=== PATIENT | male | born 1965 | race African-American/Black ===

== ENCOUNTER 2020-06-13 16:31 | Inpatient (IN) | payer OTHER ==
[~2020-06-13] VITALS: Ht 172.7 cm; Wt 64.9 kg
[2020-06-13 16:40] VITALS: BP 122/74
--- NOTE | 2020-06-13 16:40 | NUR ---
ED Nurse Note: Pt NEILHuber ELKE from [facility] c/o abnormal labs (WBC 15.7, Hgb 7.3, K+ 5.2). Pt is a vent dependent. AAOx1 to name, follows command, non verbal. Pt has GT and FC 18fr. Has a PICC line one lumen on right upper arm patent and intact. 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 Afebrile. Pt placed on desk monitor. ERMD at bedside.
--- NOTE | 2020-06-13 16:45 | NUR ---
ED Nurse Note: Vent setting: Rate 16, TV 500, Peep 8, FiO2 60%
--- NOTE | 2020-06-13 17:00 | NUR ---
ED Nurse Note: Blood and urine specimen collected, sent to lab.
[2020-06-13] MEDS ORDERED: AMLODIPINE BESY10 MG GT (17:59)
[2020-06-13] MEDS ORDERED: FAMOTIDINE20 MG GT (17:59)
[2020-06-13] MEDS ORDERED: GABAPENTIN100 MG ORAL (17:59)
[2020-06-13] MEDS ORDERED: FLUDROCORTISON0.1 MG GT (17:59)
[2020-06-13] MEDS ORDERED: ATORVASTATIN CA40 MG GT (17:59)
[2020-06-13] MEDS ORDERED: CATAPRES0.1 MG GT (18:09)
[2020-06-13] MEDS ORDERED: ZOFRAN ODT8 MG ORAL (18:09)
[2020-06-13] MEDS ORDERED: NORCO 10/3251 EA GT (18:09)
[2020-06-13 18:16] LABS: HEMATOCRIT 23.9 % (42.0-52.0); HEMOGLOBIN 7.4 G/DL (14.2-18.0); MEAN CORPUSCULAR VOLUME 93 FL (80-99); PLATELET COUNT 367 K/UL (150-450); RED BLOOD COUNT 2.58 M/UL (4.70-6.10); RED CELL DISTRIBUTION WIDTH 15.3 % (11.6-14.8); WHITE BLOOD COUNT 17.7 K/UL (4.8-10.8)
[2020-06-13 18:17] LABS: APPEARANCE,URINE CLOUDY; BILIRUBIN, URINE NEGATIVE (NEGATIVE); COLOR,URINE YELLOW; GLUCOSE, URINE (UA) NEGATIVE (NEGATIVE); KETONES,URINE 1+ (NEGATIVE); LEUKOCYTE ESTERASE ,URINE 1+ (NEGATIVE); NITRITE,URINE NEGATIVE (NEGATIVE); PH,URINE 5 (4.5-8.0); PROTEIN,URINE 4+ (NEGATIVE); UROBILINOGEN,URINE NORMAL MG/DL (0.0-1.0)
[2020-06-13 18:19] LABS: CALCIUM 8.6 MG/DL (8.5-10.1); CREATININE 1.7 MG/DL (0.55-1.30)
[2020-06-13 18:20] LABS: INR 1.2 (0.9-1.1)
[2020-06-13 18:23] LABS: ALBUMIN 1.2 G/DL (3.4-5.0); ALBUMIN/GLOBULIN RATIO 0.2 (1.0-2.7); BILIRUBIN,TOTAL 0.2 MG/DL (0.2-1.0)
--- NOTE | 2020-06-13 18:40 | NUR ---
ED Nurse Note: Xray at bedside.
[2020-06-13] MEDS ORDERED: Piperacillin/Tazobactam 3.375 GM in NS 110 ML IVPB ONE (19:00)
--- NOTE | 2020-06-13 19:11 | Diagnostic Imaging Report ---
EXAM: XR Chest, 1 View CLINICAL HISTORY: SOB TECHNIQUE: Frontal view of the chest. COMPARISON: No relevant prior studies available. FINDINGS: Lungs: Heterogeneously dense consolidations are seen centrally and at the left base obscuring the left hemidiaphragm. Cannot entirely exclude the presence of a left pleural effusion. Lizette are obscured. Pleural space: No pneumothorax. Heart: Cardiac silhouette is mostly obscured, particularly on the right side although cardiomegaly may be present. Mediastinum: Unremarkable. Bones/joints: Degenerative changes of the acromioclavicular joint and glenohumeral joints and spine. Tubes, lines and devices: Tracheostomy tube in place. IMPRESSION: Bilateral dense central infiltrates. Consider pulmonary edema, pneumonia, diffuse alveolar damage/ARDS as well as pulmonary hemorrhage.
--- NOTE | 2020-06-13 19:30 | NUR ---
ED Nurse Note: received patient from rhys rn. patient resting in bed with no acute distress. ao4; follows commands; mouths words; able to make needs known. vented; ac 16 tv 500 peep 8 fio2 60%. gtube noted. cabrera noted; draining well to gravity. left BKA noted. skin alterations noted to left lower extremity, sacral; photographed and uploaded. mrsa vre cre swabs collected; sent down to lab. all safety measures met.
[2020-06-13 19:44] VITALS: BP 107/63
--- NOTE | 2020-06-13 19:47 | NUR ---
ED Nurse Note: confirmed with ermd; hold transfusion.
[2020-06-13 21:15] VITALS: BP 118/71
--- NOTE | 2020-06-13 21:18 | NUR ---
ED Nurse Note: report given to vivien joy. patient to be admitted to [facility]du 241 under the care of yulia martins.
--- NOTE | 2020-06-13 21:55 | NUR ---
TRANSFER TO FLOOR: Patient transferred to sdu 241-2 as ordered, per yulia martins. Report given to vivien joy. patient stable for transport. transferred to unit via gurney with nory rn and rt. belongings and admission packet sent with patient .
--- NOTE | 2020-06-13 21:57 | NUR ---
NURSE NOTES: received pt from Samir Stevens RN,. pt is awake and AO x2-3 at this time. pt skin alternation noted sacral open with suture, right BKA with suture, right under foot and right toes DTI, left buttock open wound. WCP taken and uploaded. mechanical vent in place, little bleeding (not active at this time) noted. S8 AC 16 TV 500 P8 Fio2 60% and now pt is at O2 sat 100%. VSS. rfid strategist is on, new gown provided with new blankets. Gtube site intact, clean, and patent. rfid strategist shows SR at this time. pt states no pain at this time. belonging list high $206.00 and 2 chargers, 2 phones (Iphone and LESLIE), and one glasses. pt wants to keep belongings with pt's bedside. cabrera cath draining well with gravity, yellow without blood. right upper arm PICC line noted dressing changed in 06/11/2020 dry intact, intact, and clean. call light within reach. bed at the lowest position, alarmed, and locked. side rails are upx 3. will continue to monitor pt with plan of care.
--- NOTE | 2020-06-13 23:46 | NUR ---
NURSE NOTES: spoke with DavidsonBlanca (pt's daughter) regarding possible blood transfusion in tomorrow AM depends on the lab and Dr. Han. second witness by Ran Valdez RN., per tammi " yes, you guys can do blood transfusion." explained risk and benefits of getting blood transfusion. noted.
[2020-06-14] VITALS: BP 104/83
--- NOTE | 2020-06-14 00:04 | NUR ---
NURSE NOTES: spoke with Olga SANTANA., from [facility] she reported there is no dates on PNA and flu shot dates. and right upper Arm PICC line is inserted 06/11/2020/ noted
[2020-06-14 04:00] VITALS: BP 112/74
[2020-06-14 04:49] LABS: HEMATOCRIT 25.8 % (42.0-52.0); HEMOGLOBIN 7.5 G/DL (14.2-18.0); MEAN CORPUSCULAR VOLUME 98 FL (80-99); PLATELET COUNT 374 K/UL (150-450); RED BLOOD COUNT 2.64 M/UL (4.70-6.10); RED CELL DISTRIBUTION WIDTH 15.2 % (11.6-14.8); WHITE BLOOD COUNT 13.9 K/UL (4.8-10.8)
[2020-06-14 05:44] LABS: ALBUMIN 1.2 G/DL (3.4-5.0); ALBUMIN/GLOBULIN RATIO 0.2 (1.0-2.7); BILIRUBIN,TOTAL 0.3 MG/DL (0.2-1.0); CALCIUM 8.5 MG/DL (8.5-10.1); CREATININE 1.8 MG/DL (0.55-1.30); POTASSIUM 5.8 MMOL/L (3.5-5.1)
--- NOTE | 2020-06-14 06:09 | NUR ---
NURSE NOTES: Left message to Jose Cheney regarding low Hgb 7.5 today and yesterday hbg was 7.4. no active bleeding noted at this time. will continue to monitor pt with plan of care. call light within reach.
--- NOTE | 2020-06-14 06:19 | NUR ---
NURSE NOTES: left voice mail to Dr. Lashonda Amador regarding WBC 13.9 at this time and from ER gave Zozyn 3.375mg once. will wait for call back. call light within reach
--- NOTE | 2020-06-14 06:29 | NUR ---
NURSE NOTES: per Jose Cheney no new order received. noted.
--- NOTE | 2020-06-14 06:32 | NUR ---
NURSE NOTES: cleaned pt BM noted, provided oral care. pt able to help to turn.
--- NOTE | 2020-06-14 07:18 | NUR ---
NURSE HAND-OFF REPORT: Important Events on Shift:[new admit, hgb 7.5 WBC 13.9 MD aware] and needs to follow up with potassium 5.[address] Hair Patient Status: stable Diet: NPO Pending Orders: n/a Pending Results/Labs:[swab] Pending MD notification: Lashonda Amador regarding WBC and abx, pain meds from Dr. Lipscomb Latest Vital Signs: Temperature 97.0 , Pulse 75 , B/P 112 /74 , Respiratory Rate 21 , O2 SAT 98 , Mechanical Ventilator, O2 Flow Rate . Vital Sign Comment: stable EKG Rhythm: Sinus Rhythm Rhythm change?: N Notified?: Y -Dr. Ruel BENDER Response: No New Orders Received Latest Santiago Fall Score: 50 Fall Risk: High Risk Safety Measures: Call light Within Reach, Bed Alarm Zone 3, Side Rails Side Rails x3, Bed position Low and Locked. Fall Precautions: Yellow Socks Yellow Gown Door Sign Patient Fall Education Report given to Criselda SANTANA
--- NOTE | 2020-06-14 07:55 | NUR ---
NURSE NOTES:Handoff received from MAX Dick. Patient received awake and alert and resting in bed, Patient has trach attached to vent with the following settings: Shiley 8, AC16, TV 500, FI02 60% and PEEP 8, tolerating well with no signs of distress. Patient communicates via facial expression and body movements. Patient is on Addendum: 06/14/20 at 0759 by Huang Peterson RN fall and aspiration precautions, bed in the low and locked position with call light within reach, R upper arm PICC line is clean dry and intact, saline locked. Patient is currently NPO. case monitor shows HR of 78 SR, will follow plan of care.
[2020-06-14 08:00] VITALS: BP 130/85
--- NOTE | 2020-06-14 08:32 | NUR ---
NURSE NOTES:Dr Apple called to give TO/RB order for Tylenol for patient for fever/mild pain, explained that he did not want the patient to have anything stronger for pain due to past medical history.
--- NOTE | 2020-06-14 08:51 | Diagnostic Imaging Report ---
EXAM: US Duplex Bilateral Lower Extremities Veins CLINICAL HISTORY: DVT TECHNIQUE: Real-time duplex ultrasound scan of the bilateral lower extremity veins integrating B-mode two-dimensional vascular structure, Doppler spectral analysis, color flow Doppler imaging and compression. COMPARISON: No relevant prior studies available. FINDINGS: Right deep veins: There is acute, occlusive deep vein thrombosis in the distal right superficial femoral vein extending into the profunda femoris vein. The superficial femoral vein, popliteal vein upper calf veins appear patent. Left deep veins: Unremarkable. No DVT in the left common femoral, femoral, proximal deep femoral or popliteal veins. The veins demonstrate normal color flow, are normally compressible, with normal phasic flow and/or augmentation response. Soft tissues: No acute findings. No popliteal cyst. IMPRESSION: 1. Acute DVT in the distal right common femoral vein and profunda femoris vein. 2. No evidence of left lower extremity DVT. <MYCVCSECTION> Communications: 06/14/20 09:12 Call Doctor Regarding Acute DVT, per instruction verified receipt with MAX Redmond on 06/14 09:12 (-08:00)
--- NOTE | 2020-06-14 09:14 | NUR ---
NURSE NOTES: Called and left message to Dr. Apple regarding venous duplex positive result on right common femoral vein and profunda femoris vein. No DVT on left leg. Awaiting for response.
--- NOTE | 2020-06-14 09:21 | NUR ---
NURSE NOTES: Received a call back from Dr. Apple and told RN to notify Dr. Garcia about the DVT.
--- NOTE | 2020-06-14 09:29 | NUR ---
NURSE NOTES: Called and spoke with Dr. Garcia regarding positive DVT result and told RN he will enter his orders.
--- NOTE | 2020-06-14 10:47 | NUR ---
RD ASSESSMENT & RECOMMENDATIONS SEE CARE ACTIVITY FOR COMPLETE ASSESSMENT DAILY ESTIMATED NEEDS: Needs based on Wound, critical care, underweight/ 55.5kg 25-33 kcals/kg 7897-5583 total kcals 1.25-2 g protein/kg 69-111 g total protein 25-30 mL/kg 6086-0779 total fluid mLs NUTRITION DIAGNOSIS: * Swallowing difficulty R/T respiratory status as evidenced by pt is trach/vent dep, PEG dep, NPO at this time. CURRENT TF:NPO ENTERAL NUTRITION RECOMMENDATIONS: Nepro @ 40ml/hr x 24 hrs to provide 960ml, 1728kcal, 78g prot, 698ml free water * Rec to continue HATCHERY ATTENDANT TF of Nepro (K 5.8, 5.0) * Rec goal rate of 40ml/hr x 24 hrs * HOB over 30 degrees/ water flush per MD ADDITIONAL RECOMMENDATIONS: * Per SNF: HT=69" AF=202msn -> rec daily calibrated bedscale wt * Monitor lytes: elev K * Wound healing: f/up w/ WC eval add Vit C 500mg QD, Av BID via PEG
[2020-06-14 11:12] LABS: FERRITIN > 2000 NG/ML (8-388); PHOSPHORUS 4.4 MG/DL (2.5-4.9)
--- NOTE | 2020-06-14 11:38 | Consultation ---
Consult Note Consult Note I am asked to evaluate the patient at the request of Dr. Dimas for renal failure Patient seen in room 241 bed 2. Discussed with MAX Yanes. Patient is trach vent. Examined. Data reviewed. Patient is a 54-year-old male brought in by ambulance for increased difficulty with breathing. Patient was noted to have increased white blood count. Had recent diagnosis of anemia. Patient is trach and vent dependent for COPD. Had been having increased shortness of breath. Patient's history is markedly limited by mental status and poor historian. Allergies: No Known Allergies (Unverified , 06/13/20) COVID-19 Screening Contact w/high risk pt: No Experienced COVID-19 symptoms?: No COVID-19 Testing performed WELT ROUGHER: No COVID-19 Screening: PUI COVID-19 Past Medical History: No History, Except For Hx Cardiac Problems: Yes - anemia embolism, heart failure Hx Hypertension: Yes Hx COPD: Yes - tracheostomy Hx Diabetes: Yes Hx Gastrointestinal Problems: Yes - gastrostomy Hx Neurological Problems: Yes - left BKA Hx Dysphasia: Yes Hx Weakness: Yes Vital Signs in ER Date Time Temp Pulse Resp B/P (MAP) Pulse Ox O2 Delivery O2 Flow Rate FiO2 06/13/20 16:39 98.2 64 20 122/74 (90) 98 Mechanical Ventilator 06/13/20 17:00 60 PHYSICAL EXAMINATION: VITAL SIGNS: Temperature 96.9, pulse 77, blood pressure 130/85. GENERAL APPEARANCE: No acute distress. HEAD AND NECK: Status post tracheostomy. Has poor dentition. HEART: Normal rate, has right arm PICC line that was present before admission. LUNGS: Clear on ventilator. ABDOMEN: Soft. G-tube placement. EXTREMITIES: Has left below-knee amputation and have surgical stitches there. SKIN: Pressure ulcers. NEUROLOGIC: He is awake, responsive. LABORATORY AND DIAGNOSTIC DATA: Sodium 138, potassium 5.8, chloride 104, bicarb 13, BUN 38, creatinine 1.8, glucose 134. Blood gas showed pH of 7.222, pCO2 of 82.1, pO2 of 286, O2 saturation is 99%. WBC today is 13.9, hemoglobin 7.5, hematocrit 25.8, platelets 374. Venous duplex showed acute DVT on right common femoral vein. UA showed WBC of 0 to 2, rbc's 10 to 15. COVID test negative. Urine culture negative. Chest x-ray showed bilateral dense central infiltrate, pulmonary edema, or pneumonia. . Assessment/Plan Acute on chronic renal failure Anemia Respiratory failure acute on chronic Respiratory acidosis and hypoxia Hyperkalemia Pulmonary evaluation Sparrow catheter Hold IV fluid IV fluid, until 2D echo results available Kayexalate for high potassium IV Protonix 2D echocardiogram Anemia work-up More labs ordered Leonidas Honeycutt MD Jun 14, 2020 11:38
[2020-06-14] MEDS ORDERED: Sodium Polystyrene Sulfonate 15gm Powder GT SCH (11:45)
[2020-06-14 11:59] VITALS: BP 110/76
[2020-06-14 12:00] LABS: % IRON SATURATION 15 % (15-50); IRON 15 ug/dL (50-175); TOTAL IRON BINDING CAPACITY 101 ug/dL (250-450)
[2020-06-14] MEDS: Pantoprazole Inj IVP SCH ×2 (12:38→20:09)
--- NOTE | 2020-06-14 13:09 | NUR ---
NURSE NOTES:2D echo resulted. MD Mcguire aware of the results.
[2020-06-14] MEDS: Meropenem 500 MG in NS 55 ML IVPB SCH ×2 (14:00→21:44)
--- NOTE | 2020-06-14 14:09 | Cardiac Electrophysiology PN ---
Subjective Subjective [id number] Objective Last 24 Hour Vital Signs Date Time Temp Pulse Resp B/P (MAP) Pulse Ox O2 Delivery O2 Flow Rate FiO2 06/14/20 12:00 79 06/14/20 12:00 60 06/14/20 12:00 Mechanical Ventilator Mechanical Ventilator 06/14/20 11:59 96.8 78 17 110/76 (87) 98 06/14/20 09:00 Mechanical Ventilator Mechanical Ventilator 06/14/20 08:00 96.9 77 17 130/85 (100) 98 06/14/20 08:00 60 06/14/20 07:52 75 06/14/20 04:55 75 21 60 06/14/20 04:00 97.0 76 20 112/74 (87) 98 06/14/20 04:00 Mechanical Ventilator Mechanical Ventilator 06/14/20 04:00 60 06/14/20 03:32 69 06/14/20 02:47 71 25 60 06/14/20 01:39 68 23 60 06/14/20 00:22 68 17 100 Mechanical Ventilator 60 06/14/20 00:00 Mechanical Ventilator 06/14/20 00:00 97.4 65 24 104/83 (90) 99 06/14/20 00:00 60 06/13/20 23:46 65 06/13/20 23:41 64 20 60 06/13/20 21:57 Mechanical Ventilator 06/13/20 21:56 65 26 60 06/13/20 21:55 98.2 68 16 118/71 98 Mechanical Ventilator 60 06/13/20 21:15 98.2 68 16 118/71 98 Mechanical Ventilator 60 06/13/20 19:44 98.2 70 22 107/63 98 Mechanical Ventilator 60 06/13/20 19:38 69 20 60 06/13/20 17:00 70 19 60 06/13/20 16:40 98.2 64 20 122/74 98 Mechanical Ventilator 06/13/20 16:39 98.2 64 20 122/74 (90) 98 Mechanical Ventilator Intake and Output 06/13/20 06/14/20 19:00 07:00 Output Total 240 ml Balance -240 ml Output Urine Total 240 ml # Bowel Movements 4 Laboratory Tests Test 06/13/20 16:56 06/13/20 17:00 06/13/20 23:31 06/14/20 02:45 Arterial Blood pH 7.200 (7.350-7.450) Arterial Blood Partial Pressure CO2 87.4 mmHg (35.0-45.0) *H Arterial Blood Partial Pressure O2 90.5 mmHg (75.0-100.0) Arterial Blood HCO3 33.4 mmol/L (22.0-26.0) H Arterial Blood Oxygen Saturation 95.7 % (95-100) Arterial Blood Base Excess 4.1 (-2-2) H Joe Test Positive White Blood Count 17.7 K/UL (4.8-10.8) H 13.9 K/UL (4.8-10.8) H Red Blood Count 2.58 M/UL (4.70-6.10) L 2.64 M/UL (4.70-6.10) L Hemoglobin 7.4 G/DL (14.2-18.0) L 7.5 G/DL (14.2-18.0) L Hematocrit 23.9 % (42.0-52.0) L 25.8 % (42.0-52.0) L Mean Corpuscular Volume 93 FL (80-99) 98 FL (80-99) Mean Corpuscular Hemoglobin 28.8 PG (27.0-31.0) 28.5 PG (27.0-31.0) Mean Corpuscular Hemoglobin Concent 31.1 G/DL (32.0-36.0) L 29.2 G/DL (32.0-36.0) L Red Cell Distribution Width 15.3 % (11.6-14.8) H 15.2 % (11.6-14.8) H Platelet Count 367 K/UL (150-450) 374 K/UL (150-450) Mean Platelet Volume 7.1 FL (6.5-10.1) 7.8 FL (6.5-10.1) Neutrophils (%) (Auto) % (45.0-75.0) % (45.0-75.0) Lymphocytes (%) (Auto) % (20.0-45.0) % (20.0-45.0) Monocytes (%) (Auto) % (1.0-10.0) % (1.0-10.0) Eosinophils (%) (Auto) % (0.0-3.0) % (0.0-3.0) Basophils (%) (Auto) % (0.0-2.0) % (0.0-2.0) Differential Total Cells Counted 100 100 Neutrophils % (Manual) 82 % (45-75) H 89 % (45-75) H Lymphocytes % (Manual) 8 % (20-45) L 7 % (20-45) L Monocytes % (Manual) 7 % (1-10) 4 % (1-10) Eosinophils % (Manual) 3 % (0-3) 0 % (0-3) Basophils % (Manual) 0 % (0-2) 0 % (0-2) Band Neutrophils 0 % (0-8) 0 % (0-8) Platelet Estimate Adequate Adequate Platelet Morphology Normal Normal Hypochromasia 2+ 1+ Anisocytosis 1+ 1+ Prothrombin Time 12.7 SEC (9.30-11.50) H Prothromb Time International Ratio 1.2 (0.9-1.1) H Activated Partial Thromboplast Time 31 SEC (23-33) Urine Color Yellow Urine Appearance Cloudy Urine pH 5 (4.5-8.0) Urine Specific [place] 1.015 (1.005-1.035) Urine Protein 4+ (NEGATIVE) H Urine Glucose (UA) Negative (NEGATIVE) Urine Ketones 1+ (NEGATIVE) H Urine Blood 5+ (NEGATIVE) H Urine Nitrite Negative (NEGATIVE) Urine Bilirubin Negative (NEGATIVE) Urine Urobilinogen Normal MG/DL (0.0-1.0) Urine Leukocyte Esterase 1+ (NEGATIVE) H Urine RBC 10-15 /HPF (0 - 0) H Urine WBC 0-2 /HPF (0 - 0) Urine Squamous Epithelial Cells None /LPF (NONE/OCC) Urine Bacteria Few /HPF (NONE) Urine Yeast Few /HPF (NONE) H Sodium Level 138 MMOL/L (136-145) 138 MMOL/L (136-145) Potassium Level 5.0 MMOL/L (3.5-5.1) 5.8 MMOL/L (3.5-5.1) H Chloride Level 104 MMOL/L (98-107) 104 MMOL/L (98-107) Carbon Dioxide Level 31 MMOL/L (21-32) 30 MMOL/L (21-32) Anion Gap 3 mmol/L (5-15) L 4 mmol/L (5-15) L Blood Urea Nitrogen 33 mg/dL (7-18) H 38 mg/dL (7-18) H Creatinine 1.7 MG/DL (0.55-1.30) H 1.8 MG/DL (0.55-1.30) H Estimat Glomerular Filtration Rate 51.4 mL/min (>60) 48.1 mL/min (>60) Glucose Level 89 MG/DL (74-106) 134 MG/DL (74-106) H Calcium Level 8.6 MG/DL (8.5-10.1) 8.5 MG/DL (8.5-10.1) Total Bilirubin 0.2 MG/DL (0.2-1.0) 0.3 MG/DL (0.2-1.0) Aspartate Amino Transf (AST/SGOT) 110 U/L (15-37) H 543 U/L (15-37) H Alanine Aminotransferase (ALT/SGPT) 47 U/L (12-78) 215 U/L (12-78) H Alkaline Phosphatase 183 U/L (46-116) H 247 U/L (46-116) H Total Protein 7.8 G/DL (6.4-8.2) 7.8 G/DL (6.4-8.2) Albumin 1.2 G/DL (3.4-5.0) L 1.2 G/DL (3.4-5.0) L Globulin 6.6 g/dL 6.6 g/dL Albumin/Globulin Ratio 0.2 (1.0-2.7) L 0.2 (1.0-2.7) L POC Whole Blood Glucose Pending Test 06/14/20 05:32 06/14/20 10:15 06/14/20 10:58 06/14/20 12:44 POC Whole Blood Glucose 135 MG/DL (74-106) H 115 MG/DL (74-106) H Phosphorus Level 4.4 MG/DL (2.5-4.9) Magnesium Level 2.2 MG/DL (1.8-2.4) Iron Level 15 ug/dL (50-175) L Total Iron Binding Capacity 101 ug/dL (250-450) L Percent Iron Saturation 15 % (15-50) Unsaturated Iron Binding 86 ug/dL (112-346) L Ferritin > 2000 NG/ML (8-388) H Troponin I 0.000 ng/mL (0.000-0.056) Vitamin B12 Level > 2000 PG/ML (193-986) H Folate 16.4 NG/ML (8.6-58.9) Arterial Blood pH 7.222 (7.350-7.450) Arterial Blood Partial Pressure CO2 82.1 mmHg (35.0-45.0) *H Arterial Blood Partial Pressure O2 286.9 mmHg (75.0-100.0) H Arterial Blood HCO3 33.0 mmol/L (22.0-26.0) H Arterial Blood Oxygen Saturation 99.0 % (95-100) Arterial Blood Base Excess 4.3 (-2-2) H Joe Test Positive Microbiology Date/Time Source Procedure Growth Status 06/13/20 19:01 Nasopharynx SARS-CoV-2 RdRp Gene Assay - Final Complete 06/13/20 17:00 Urine,Clean Catch Urine Culture - Preliminary NO GROWTH Resulted Lance Mcguire MD Jun 14, 2020 14:09
--- NOTE | 2020-06-14 14:38 | NUR ---
NURSE NOTES: IV tubing changed as Vanco is incompatible with Albumin.
[2020-06-14] MEDS: Vancomycin 1gm/D5W 275ml IVPB SCH ×2 (14:40)
--- NOTE | 2020-06-14 15:15 | Consultation ---
DATE OF CONSULTATION: 06/14/2020 PULMONARY CONSULTATION CONSULTING PHYSICIAN: Sylvester Garcia M.D. HISTORY OF PRESENT ILLNESS: This is a 54-year-old chronic tracheostomy patient who was sent in from [facility] with a complaint of high white count and anemia. The patient is chronic vent dependent. He has a chronic G-tube and a chronic Sparrow. He also has a PICC line in the right upper arm. The patient is known to have a BKA on left lower extremity. Currently, his vent settings show AC tidal volume 500, FiO2 100%, PEEP of 8, rate of 16. The patient is nonverbal, unable to answer any questions. On arrival, he was on FiO2 60%. The patient is noted to have skin breakdown over left lower extremity as well. The patient has been ordered a blood transfusion given anemia. White count is now at 13.9. PAST MEDICAL HISTORY: Left BKA, chronic respiratory failure, encephalopathy, anemia. MEDICATIONS: Zosyn currently only. REVIEW OF SYSTEMS: Unobtainable. PHYSICAL EXAMINATION: GENERAL: A 54-year-old male. VITAL SIGNS: Blood pressure is 130/80, heart rate 74, respiratory rate 18, O2 sat 98% on 100% oxygen. HEENT: Unremarkable. Tracheostomy site is clean. CHEST: Clear breath sounds. ABDOMEN: Soft. EXTREMITIES: There is no edema. Skin breakdown noted over the left lower extremity. He has BKA. LABORATORY DATA: Lab testing shows white count 13.9, hemoglobin 7.5. Chemistries show creatinine 1.8, glucose 135. He has elevation of AST and ALT and alk phos as well. ABG shows pH of 7.20, pCO2 of 87, pO2 of 90. Coags are unremarkable. Urinalysis shows a few pus cells. IMAGING STUDIES: The patient underwent an x-ray of his chest, which showed bilateral pulmonary infiltrates. These are severe and bilateral. IMPRESSION: 1. Chronic respiratory failure. 2. Hypoxemia. 3. Respiratory acidosis. 4. Anemia. 5. Leukocytosis. DISCUSSION: The patient's x-ray is markedly abnormal with bilateral infiltrates. This could represent pulmonary edema. We will obtain 2D echo. We will diurese. Continue assist-control mechanical ventilation, broad-spectrum antibiotics. Transfusion as needed. We will follow carefully. Sylvester Garcia M.D. DR: CORNELIUS JOB#: [id number] CC:
--- NOTE | 2020-06-14 15:59 | Consultation ---
DATE OF CONSULTATION: 06/14/2020 INFECTIOUS DISEASES CONSULTATION CONSULTING PHYSICIAN: Paul Amador MD. PRIMARY ATTENDING PHYSICIAN: Neida Apple MD. REASON FOR CONSULTATION: Pneumonia. HISTORY OF PRESENT ILLNESS: This is a 54-year-old male admitted last night from nursing facility because of abnormal labs. The patient had leukocytosis of 15,000 in the [facility] it was 17.7, anemia with hemoglobin of 7.4, hyperkalemia with potassium level of 5.8. The patient had history of recent surgery, left lower extremity amputation in [facility] and was on antibiotic vancomycin and meropenem after discharge. PAST MEDICAL HISTORY: Diabetes mellitus type 2, hypertension, hyperlipidemia, major depression, ventilator-dependent respiratory failure, dysphagia status post G-tube placement, recent history of left BKA. ALLERGIES: No known drug allergies. MEDICATIONS: Got a dose of Zosyn in the ER, getting Lasix, Protonix, Kayexalate, Tylenol. 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 No other history obtainable. REVIEW OF SYSTEMS: Have some coughing. PHYSICAL EXAMINATION: VITAL SIGNS: Temperature 96.9, pulse 77, blood pressure 130/85. GENERAL APPEARANCE: No acute distress. HEAD AND NECK: Status post tracheostomy. Has poor dentition. HEART: Normal rate, has right arm PICC line that was present before admission. LUNGS: Clear on ventilator. ABDOMEN: Soft. G-tube placement. EXTREMITIES: Has left below-knee amputation and have surgical stitches there. SKIN: Pressure ulcers. NEUROLOGIC: He is awake, responsive. LABORATORY AND DIAGNOSTIC DATA: Sodium 138, potassium 5.8, chloride 104, bicarb 13, BUN 38, creatinine 1.8, glucose 134. Blood gas showed pH of 7.222, pCO2 of 82.1, pO2 of 286, O2 saturation is 99%. WBC today is 13.9, hemoglobin 7.5, hematocrit 25.8, platelets 374. Venous duplex showed acute DVT on right common femoral vein. UA showed WBC of 0 to 2, rbc's 10 to 15. COVID test negative. Urine culture negative. Chest x-ray showed bilateral dense central infiltrate, pulmonary edema, or pneumonia. IMPRESSION: Pneumonia in a patient who is ventilator-dependent respiratory failure, has diabetes mellitus type 2, hypertension, had recent history of left BKA, was on antibiotics before admission, has hypertension, anemia, major depression, pressure ulcer, elevated transaminase, hyperkalemia. RECOMMENDATION: We will start the patient on meropenem and vancomycin. We will ask for sputum culture. We will follow up the cultures. We will try to get more information about recent hospitalization from [facility]. At the end of my exam, I thank Dr. Apple, for involving me in the care of this patient. Paul Amador M.D. DR: Carolyn JOB#: [id number] CC:
[2020-06-14 16:00] VITALS: BP 127/80
--- NOTE | 2020-06-14 16:15 | Consultation ---
DATE OF CONSULTATION: 06/14/2020 CARDIOLOGY CONSULTATION CONSULTING PHYSICIAN: Lance Mcguire MD REFERRING PHYSICIAN: Neida Apple MD REASON FOR CONSULTATION: Shortness of breath, tachycardia, and congestive heart failure. HISTORY OF PRESENT ILLNESS: The patient is a 54-year-old gentleman with history of ventilator-dependent respiratory failure, status post tracheostomy and dysphagia, status post PEG placement, his prior CVA, and was nonverbal, who was brought in from the [facility] with white count of 15.7 and hemoglobin 7.3. The. The patient also noted to be quite short of breath. The chest x-ray showed bilateral volume overload and infiltrate. His blood pressure was 122/74. The patient was admitted. A Cardiology consultation was requested for further evaluation and management. REVIEW OF SYSTEMS: Cannot be obtained. PAST MEDICAL HISTORY: As mentioned above. FAMILY HISTORY: Noncontributory. SOCIAL HISTORY: He lives in a shelter. Does not smoke or drink alcohol. PHYSICAL EXAMINATION: VITAL SIGNS: Show blood pressure of 122/70, pulse is 70, respirations 18, temperature is 96.8. HEAD AND NECK: Show status post tracheostomy. LUNGS: Coarse rhonchi and basilar rales. CARDIOVASCULAR: Shows irregular S1 and S2 with no gallop. ABDOMEN: Soft. Status post G-tube. EXTREMITIES: No pitting edema. LABORATORY DATA: Labs show white count was 17.7 that decreased to 13.9, hemoglobin of 7.5, hematocrit 25.8, and platelet count of 374,000. Sodium is 138, potassium is 5.8, BUN of 38, creatinine 1.8, and glucose of 134. His first troponin is negative. ASSESSMENT AND PLAN: 1. Respiratory failure in this patient with vent-dependent respiratory failure. The patient's chest x-ray is suspicious for congestive heart failure or extensive bilateral pneumonia or ARDS. We will get an echocardiogram for further evaluation. His creatinine is 1.8. We will check a brain-natriuretic peptide and keep the patient on Lasix 40 mg IV b.i.d. 2. Tachycardia, likely due to respiratory failure. 3. Ventilator-dependent respiratory failure, status post tracheostomy. 4. Dysphagia, status post PEG placement. 5. Renal failure. Further evaluation by Dr. Honeycutt. 6. Hyperkalemia . Thank you very much for allowing me to participate in the care of this patient. Please do not hesitate to contact me for any questions regarding my evaluation. Lance Mcguire M.D. DR: Yonathan JOB#: [id number] CC:
--- NOTE | 2020-06-14 18:53 | NUR ---
NURSE NOTES: Received report from Tari Yanes RN. Pt is lying in bed in semi-caba's position. Attached to trach to vent with settings as ordered. Breathing even and unlabored but occasionally deep breathing. O2 sat 98-100%. Pt is cold to warm to touch. Alert 2-3. Able to follow simple commands. With active range of motion in extrimities. Left knee BKA. Denies any pain. No any distress noted at this time. IV site at Right upper arm PICC line patent and flushing. Attached to cabrera with yellow output urine. Continue to plan of care. Bed in lowest position. Call light within reach.
--- NOTE | 2020-06-14 19:23 | NUR ---
NURSE HAND-OFF REPORT: MAX loya. Important Events on Shift:Patient has DVT Right femoral, PUI for Covid, Kayaxelate given for K of 5.8 Patient Status: Stable Diet: NPO except meds Pending Orders: Sputum needs to be collected. Pending Results/Labs:Covid, Blood culture, Pending MD notification:N/A Latest Vital Signs: Temperature 97.2 , Pulse 78 , B/P 127 /80 , Respiratory Rate 19 , O2 SAT 98 , Mechanical Ventilator, O2 Flow Rate . Vital Sign Comment: EKG Rhythm: Sinus Rhythm Rhythm change?: N MD Notified?: MD Response: Latest Santiago Fall Score: 35 Fall Risk: Medium Risk Safety Measures: Call light Within Reach, Bed Alarm Zone 2, Side Rails Side Rails x2, Bed position Low and Locked. Fall Precautions: Patient Fall Education Report given to MAX Loya.
--- NOTE | 2020-06-14 19:27 | NUR ---
NURSE HAND-OFF REPORT: MAX Comer. Important Events on Shift: patient still bleeding from trach. Patient Status: stable Diet: NPO Pending Orders: Blood Cultures Pending Results/Labs:n/a Pending MD notification: Latest Vital Signs: Temperature 97.2 , Pulse 78 , B/P 127 /80 , Respiratory Rate 19 , O2 SAT 98 , Mechanical Ventilator, O2 Flow Rate . Vital Sign Comment: EKG Rhythm: Sinus Rhythm Rhythm change?: N MD Notified?: MD Response: Latest Santiago Fall Score: 35 Fall Risk: Medium Risk Safety Measures: Call light Within Reach, Bed Alarm Zone 2, Side Rails Side Rails x2, Bed position Low and Locked. Fall Precautions: Patient Fall Education Report given to MAX Comer.
--- NOTE | 2020-06-14 20:00 | NUR ---
NURSE NOTES: Pt is changed, sponge bath given. CHG bath given. Pt refused oral care. Noted Small bowel movement brown in color. Not in respiratory distress. No pain noted. Changed dressing on lower back with surgical incision.
[2020-06-14] MEDS: Dyna-Hex 2% Top Sol 2oz TOPIC SCH (20:09)
[2020-06-14 20:40] VITALS: BP 120/76
[2020-06-14] MEDS ORDERED: NS 275ml ONE (20:54)
[2020-06-14] MEDS ORDERED: Tubing IV Secondary IV ONE (20:54)
--- NOTE | 2020-06-14 21:15 | History and Physical Report ---
DATE OF ADMISSION: 06/13/2020 HISTORY OF PRESENT ILLNESS: The patient is nonverbal. The patient comes in with severe anemia, diffuse pulmonary edema and infiltrate, vent dependent, trach and PEG, and also severe anemia, leukocytosis, sepsis, azotemia. Again, the patient is nonverbal, cannot get any history. The patient is admitted for those reasons and pulmonary edema. PAST MEDICAL HISTORY: Significant for chronic respiratory insufficiency, hyperlipidemia, hypertension, GERD, history of anemia, congestive heart failure, chronic renal insufficiency. PAST SURGICAL HISTORY: Trach and PEG. MEDICATIONS: Pepcid, clonidine, Lipitor, gabapentin. FAMILY HISTORY: Unable to obtain. SOCIAL HISTORY: Unable to obtain. REVIEW OF SYSTEMS: Unable to obtain. The patient is nonverbal. PHYSICAL EXAMINATION: VITAL SIGNS: Temperature is 97.2, pulse is 70, and blood pressure 127/80. HEENT: PERRLA. NECK: Supple. Trach site is intact. CHEST: Bibasilar rhonchi. CARDIOVASCULAR: Regular rate and rhythm. No murmurs, clicks sounds. GASTROINTESTINAL: Soft and nontender. G-tube site is intact. Positive bowel sounds. EXTREMITY: Positive dorsalis pedis pulses. NEUROLOGICAL: Generalized weakness. LABORATORY DATA: WBC of 17.2, hemoglobin 7.4, and platelets of 367,000. ASSESSMENT AND PLAN: Respiratory failure, respiratory acidosis, trach and PEG, vent dependent, chronic renal insufficiency. The patient also has diffuse pulmonary edema on the chest x-ray. The patient also has severe anemia, rule out sepsis, rule out pneumonia, azotemia, leukocytosis, anemia. I have consulted Dr. Garcia, Dr. Tan, Dr. Honeycutt, Dr. Mcguire as well as Dr. Paul Amador to rule out pneumonia and sepsis. Antibiotics per Dr. Paul Amador and fluid management per Dr. Mcguire and Dr. Honeycutt. Dr. Hernandez will also help with the respiratory insufficiency, trach orders, vent dependence, and also fluid management. We will also try to check for DVT given the legs edema and calf pain. Neida Apple M.D. DR: LUIS JOB#: [id number] CC:
[2020-06-15] VITALS: BP 108/68
--- NOTE | 2020-06-15 02:00 | NUR ---
NURSE NOTES: Seen pt in bed in semi- caba's position. No apparent distress noted. Attached to vent. O2 sat-100%. No fever noted. no coughing noted. Continue to plan of care. Bed in lowest position, call light within reach.
[2020-06-15 04:00] VITALS: BP 111/62
--- NOTE | 2020-06-15 04:00 | NUR ---
NURSE NOTES: Seen pt in bed in semi- caba's position. No apparent distress noted. Attached to vent. O2 sat-98%. No fever noted. no coughing noted. Continue to plan of care. Bed in lowest position, call light within reach.
[2020-06-15 05:12] LABS: HEMATOCRIT 25.4 % (42.0-52.0); HEMOGLOBIN 7.4 G/DL (14.2-18.0); MEAN CORPUSCULAR VOLUME 99 FL (80-99); PLATELET COUNT 386 K/UL (150-450); RED BLOOD COUNT 2.57 M/UL (4.70-6.10); RED CELL DISTRIBUTION WIDTH 14.7 % (11.6-14.8)
[2020-06-15 05:20] LABS: ANION GAP 1 mmol/L (5-15); BLOOD UREA NITROGEN 50 mg/dL (7-18); CALCIUM 8.1 MG/DL (8.5-10.1); CARBON DIOXIDE 33 MMOL/L (21-32); CHLORIDE 102 MMOL/L (98-107); CREATININE 2.4 MG/DL (0.55-1.30); POTASSIUM 5.6 MMOL/L (3.5-5.1); SODIUM 136 MMOL/L (136-145)
[2020-06-15 05:31] LABS: ALANINE AMINOTRANSFERASE 157 U/L (12-78); ALBUMIN 1.5 G/DL (3.4-5.0); ALBUMIN/GLOBULIN RATIO 0.2 (1.0-2.7); ALKALINE PHOSPHATASE 190 U/L (46-116); ASPARTATE AMINO TRANSFERASE 163 U/L (15-37); BILIRUBIN,TOTAL 0.3 MG/DL (0.2-1.0); CHOLESTEROL 79 MG/DL (< 200); HDL CHOLESTEROL 30 MG/DL (40-60); TRIGLYCERIDES 49 MG/DL (30-150)
[2020-06-15 05:40] LABS: CREATINE KINASE 43 U/L (26-308); GAMMA GLUTAMYL TRANSPEPTIDASE 79 U/L (5-85); LACTATE DEHYDROGENASE 235 U/L (81-234)
[2020-06-15] MEDS: Meropenem 500 MG in NS 55 ML IVPB SCH ×3 (05:53→21:41)
--- NOTE | 2020-06-15 06:53 | Consultation ---
History of Present Illness General Chief Complaint: Abnormal Labs Present Illness Allergies: Coded Allergies: No Known Allergies (Unverified , 06/13/20) Medication History Scheduled Amlodipine Besylate* (Amlodipine Besylate*), 10 MG ORAL DAILY, (Reported) Atorvastatin Calcium* (Atorvastatin Calcium*), 40 MG ORAL BEDTIME, (Reported) Clonidine Hcl* (Catapres*), 0.1 MG ORAL EVERY 6 HOURS, (Reported) Famotidine* (Pepcid 20mg tablet*), 20 MG ORAL DAILY, (Reported) Gabapentin* (Gabapentin*), 300 MG ORAL THREE TIMES A DAY, (Reported) Scheduled PRN Hydrocodone/Acetaminophen (Hydrocodon-Acetaminophn 10-325), 1 TAB ORAL Q4H PRN for For Pain, (Reported) Ondansetron Odt* (Zofran Odt*), 4 MG ORAL Q6H PRN for Nausea & Vomiting, (Reported) Miscellaneous Medications Fludrocortisone Acetate (Fludrocortisone Acetate), 0.1 MG PO, (Reported) Patient History Healthcare decision maker Resuscitation status Advanced Directive on File Physical Exam Last 24 Hour Vital Signs Date Time Temp Pulse Resp B/P (MAP) Pulse Ox O2 Delivery O2 Flow Rate FiO2 06/15/20 04:37 60 06/15/20 04:00 96.7 67 21 111/62 (78) 96 06/15/20 04:00 Mechanical Ventilator Mechanical Ventilator 06/15/20 04:00 69 06/15/20 02:41 70 21 100 06/15/20 00:00 96.5 72 20 108/68 (81) 97 06/15/20 00:00 Mechanical Ventilator Mechanical Ventilator 06/15/20 00:00 74 06/14/20 22:42 73 19 100 06/14/20 20:40 97.6 77 21 120/76 (91) 98 06/14/20 20:00 Mechanical Ventilator Mechanical Ventilator 06/14/20 20:00 60 06/14/20 19:25 79 06/14/20 18:39 78 19 100 06/14/20 17:15 78 20 100 06/14/20 16:00 Mechanical Ventilator Mechanical Ventilator 06/14/20 16:00 60 06/14/20 16:00 78 06/14/20 16:00 97.2 82 19 127/80 (96) 98 06/14/20 15:23 80 21 100 06/14/20 13:09 79 19 100 06/14/20 12:00 79 06/14/20 12:00 60 06/14/20 12:00 Mechanical Ventilator Mechanical Ventilator 06/14/20 11:59 96.8 78 17 110/76 (87) 98 06/14/20 11:30 78 19 100 06/14/20 09:00 Mechanical Ventilator Mechanical Ventilator 06/14/20 08:48 78 18 100 06/14/20 08:00 96.9 77 17 130/85 (100) 98 06/14/20 08:00 60 06/14/20 07:52 75 06/14/20 07:28 81 17 60 Intake and Output 06/14/20 06/15/20 19:00 07:00 Intake Total 180 ml 120 ml Output Total 451 ml 360 ml Balance -271 ml -240 ml Intake Oral 0 ml Free Water 180 ml 120 ml Output Urine Total 450 ml 360 ml Stool Total 1 ml # Bowel Movements 2 5 Laboratory Tests Test 06/14/20 10:15 06/14/20 10:58 06/14/20 12:44 06/14/20 18:48 Phosphorus Level 4.4 MG/DL (2.5-4.9) Magnesium Level 2.2 MG/DL (1.8-2.4) Iron Level 15 ug/dL (50-175) L Total Iron Binding Capacity 101 ug/dL (250-450) L Percent Iron Saturation 15 % (15-50) Unsaturated Iron Binding 86 ug/dL (112-346) L Ferritin > 2000 NG/ML (8-388) H Troponin I 0.000 ng/mL (0.000-0.056) Vitamin B12 Level > 2000 PG/ML (193-986) H Folate 16.4 NG/ML (8.6-58.9) Arterial Blood pH 7.222 (7.350-7.450) Arterial Blood Partial Pressure CO2 82.1 mmHg (35.0-45.0) *H Arterial Blood Partial Pressure O2 286.9 mmHg (75.0-100.0) H Arterial Blood HCO3 33.0 mmol/L (22.0-26.0) H Arterial Blood Oxygen Saturation 99.0 % (95-100) Arterial Blood Base Excess 4.3 (-2-2) H Jeo Test Positive POC Whole Blood Glucose 115 MG/DL (74-106) H 99 MG/DL (74-106) Test 06/15/20 00:25 06/15/20 04:00 06/15/20 05:56 POC Whole Blood Glucose 97 MG/DL (74-106) 118 MG/DL (74-106) H White Blood Count 15.0 K/UL (4.8-10.8) H Red Blood Count 2.57 M/UL (4.70-6.10) L Hemoglobin 7.4 G/DL (14.2-18.0) L Hematocrit 25.4 % (42.0-52.0) L Mean Corpuscular Volume 99 FL (80-99) Mean Corpuscular Hemoglobin 28.6 PG (27.0-31.0) Mean Corpuscular Hemoglobin Concent 29.0 G/DL (32.0-36.0) L Red Cell Distribution Width 14.7 % (11.6-14.8) Platelet Count 386 K/UL (150-450) Mean Platelet Volume 7.7 FL (6.5-10.1) Neutrophils (%) (Auto) % (45.0-75.0) Lymphocytes (%) (Auto) % (20.0-45.0) Monocytes (%) (Auto) % (1.0-10.0) Eosinophils (%) (Auto) % (0.0-3.0) Basophils (%) (Auto) % (0.0-2.0) Neutrophils % (Manual) Pending Lymphocytes % (Manual) Pending Platelet Estimate Pending Platelet Morphology Pending Sodium Level 136 MMOL/L (136-145) Potassium Level 5.6 MMOL/L (3.5-5.1) H Chloride Level 102 MMOL/L (98-107) Carbon Dioxide Level 33 MMOL/L (21-32) H Anion Gap 1 mmol/L (5-15) L Blood Urea Nitrogen 50 mg/dL (7-18) H Creatinine 2.4 MG/DL (0.55-1.30) H Estimat Glomerular Filtration Rate 34.5 mL/min (>60) Glucose Level 111 MG/DL (74-106) H Lactic Acid Level 0.70 mmol/L (0.4-2.0) Uric Acid 5.3 MG/DL (2.6-7.2) Calcium Level 8.1 MG/DL (8.5-10.1) L Phosphorus Level 6.0 MG/DL (2.5-4.9) H Magnesium Level 2.2 MG/DL (1.8-2.4) Total Bilirubin 0.3 MG/DL (0.2-1.0) Gamma Glutamyl Transpeptidase 79 U/L (5-85) Aspartate Amino Transf (AST/SGOT) 163 U/L (15-37) H Alanine Aminotransferase (ALT/SGPT) 157 U/L (12-78) H Alkaline Phosphatase 190 U/L (46-116) H Lactate Dehydrogenase 235 U/L (81-234) H Total Creatine Kinase 43 U/L (26-308) Troponin I 0.002 ng/mL (0.000-0.056) C-Reactive Protein, Quantitative 15.5 mg/dL (0.00-0.90) H Pro-B-Type Natriuretic Peptide 93290 pg/mL (0-125) H Total Protein 7.9 G/DL (6.4-8.2) Albumin 1.5 G/DL (3.4-5.0) L Globulin 6.4 g/dL Albumin/Globulin Ratio 0.2 (1.0-2.7) L Triglycerides Level 49 MG/DL (30-150) Cholesterol Level 79 MG/DL (< 200) LDL Cholesterol 35 mg/dL (<100) HDL Cholesterol 30 MG/DL (40-60) L Cholesterol/HDL Ratio 2.6 (3.3-4.4) L Height (Feet): 5 Height (Inches): 8.00 Weight (Pounds): 143 Medications Current Medications Medications (Trade) Dose Ordered Sig/Maryjane Route PRN Reason Start Time Stop Time Status Last Admin Dose Admin Acetaminophen (Tylenol) 650 mg Q4HR PRN GT FEVER 06/14/20 09:45 07/14/20 09:44 Chlorhexidine Gluconate (Inés-Hex 2%) 1 applic DAILY@1999 TOPIC 06/14/20 20:00 09/12/20 19:59 06/14/20 20:09 Dextrose (Dextrose 50%) 25 ml Q30M PRN IV Hypoglycemia 06/14/20 03:45 09/12/20 03:44 Dextrose (Dextrose 50%) 50 ml Q30M PRN IV Hypoglycemia 06/14/20 03:45 09/12/20 03:44 Furosemide (Lasix) 40 mg EVERY 12 HOURS IV 06/14/20 21:00 07/14/20 20:59 06/14/20 20:09 Meropenem 500 mg/ Sodium Chloride 55 ml @ 110 mls/hr EVERY 8 HOURS IVPB 06/14/20 14:00 06/19/20 13:59 06/15/20 05:53 Pantoprazole (Protonix) 40 mg EVERY 12 HOURS IVP 06/14/20 11:45 07/14/20 11:44 06/14/20 20:09 Vancomycin HCl (Vanco pharmacy to dose) 1 ea DAILY PRN MISC Per rx protocol 06/14/20 12:15 07/14/20 12:14 Vancomycin HCl 1 gm/Dextrose 275 ml @ 183.708 mls/hr Q24H IVPB 06/14/20 14:00 06/19/20 13:59 06/14/20 14:40 Assessment/Plan Assessment/Plan: Hematology Consultation REFERRING PHYSICIAN: Neida Apple MD REASON FOR CONSULTATION: Anemia eval, high wbc DOS 06/15/2020 HISTORY OF PRESENT ILLNESS: The patient is a 54-year-old gentleman with history of ventilator-dependent respiratory failure, status post tracheostomy and dysphagia, status post PEG placement, his prior CVA, and was nonverbal, who was brought in from the [facility] with white count of 15.7 and hemoglobin 7.3. The. The patient also noted to be quite short of breath. The chest x-ray showed bilateral volume overload and infiltrate. His blood pressure was 122/74. The patient was admitted. [facility] consulted for eval and rx. REVIEW OF SYSTEMS: Cannot be obtained. PAST MEDICAL HISTORY: As mentioned above. FAMILY HISTORY: Noncontributory. SOCIAL HISTORY: He lives in a custodial. Does not smoke or drink alcohol. PHYSICAL EXAMINATION: VITAL SIGNS: reviewed HEAD AND NECK: Show status post tracheostomy. vent+ LUNGS: Coarse rhonchi and basilar rales. CARDIOVASCULAR: Shows irregular S1 and S2 with no gallop. ABDOMEN: Soft. Status post G-tube. EXTREMITIES: No pitting edema.++Left bka LABORATORY DATA: 06/13 white count was 17.7 that decreased to 13.9, hemoglobin of 7.5, hematocrit 25.8, and platelet count of 374,000. Sodium is 138, potassium is 5.8, BUN of 38, creatinine 1.8, and glucose of 134. His first troponin is negative. ASSESSMENT AND PLAN: #. Anemia that is likely due to chronic disease, r/o gi bleeding --> anemia panel has been reviewed, ferritin is >2000 --> no e/o hemolysis is noted --> transfuse on prn basis --> blood consent has been signed --> hgb 7.4-->7.4 --> folic acid is wnl # Acute DVT in the distal right common femoral vein and profunda femoris vein. --> cannot anticoagulate at this time --> will order for ivc filter placement # Leukocytosis is likely due to b/l infiltrates --> on abx as per id -> ABX yolis/vanc --> continue trend # Respiratory failure in this patient with vent-dependent respiratory failure. T --> cxr with pna/chf --> diuresis prn # Tachycardia, likely due to respiratory failure. # Left bka # Ventilator-dependent respiratory failure, status post tracheostomy. # Dysphagia, status post PEG placement. # Renal failure. Further evaluation by Dr. Honeycutt. # Hyperkalemia and kayxelate as needed. # Dvt ppx scds Appreciate consultation and Jose Roy RN, MD Jun 15, 2020 06:53
[2020-06-15] MEDS ORDERED: Lidocaine 1% Plain 30 ml INJ PRN (07:00)
[2020-06-15] MEDS ORDERED: Sodium Bicarbonate 4% 2.4meq/5ml vial IV PRN (07:00)
--- NOTE | 2020-06-15 07:00 | NUR ---
NURSE HAND-OFF REPORT: Important Events on Shift: Pt had 3x BM- soft brown, Pt K- 5.6. Still NPO, Positive DVT right lower ext Diet: NPO Pending Orders: None Pending Results/Labs: Sputum- unable to collect Pending MD notification: None Latest Vital Signs: Temperature 96.7 , Pulse 67 , B/P 111 /62 , Respiratory Rate 21 , O2 SAT 96 , Mechanical Ventilator, O2 Flow Rate . Vital Sign Comment: WNL EKG Rhythm: Sinus Rhythm Rhythm change?: N MD Notified?: Jennifer Lipscomb MD Response: No New Orders Received Latest Santiago Fall Score: 45 Fall Risk: High Risk Safety Measures: Call light Within Reach, Bed Alarm Zone 2, Side Rails Side Rails x2, Bed position Low and Locked. Fall Precautions: Patient Fall Education Report given to [MAX Encinas].
--- NOTE | 2020-06-15 07:35 | NUR ---
NURSE NOTES:Handoff received from MAX Comer. Patient received awake and alert and resting in bed, Patient has trach attached to vent with the following settings: Shiley 8, AC16, TV 500, FI02 60% and PEEP 8, tolerating well and saturation at 100%. Patient communicates via facial expression and body movements. Patient is on fall and aspiration precautions, bed in the low and locked position with call light within reach, R upper arm PICC line is clean dry and intact, saline locked, Sparrow is patent and draining to gravity and attached to bedside. Patient is currently NPO. threat monitoring analyst shows HR of [address]n SR. Dr Biswas rounded on patient, stated he will speak to the daughter regarding consent for the IVC filter, will call later to verify consent from the daughter. Will follow plan of care.
[2020-06-15 08:00] VITALS: BP 114/60
[2020-06-15] MEDS ORDERED: Sodium Polystyrene Sulfonate 15gm Powder GT SCH (08:00)
--- NOTE | 2020-06-15 08:15 | NUR ---
NURSE NOTES: Imaging came up to take a chest Xray.
--- NOTE | 2020-06-15 08:49 | NUR ---
NURSE NOTES:Called engineering to raise the temperature in the room as the room is cold. Provided patient with Blankets and bear hugger.
--- NOTE | 2020-06-15 09:15 | NUR ---
NURSE NOTES:RT increased FI02 to 80%
[2020-06-15] MEDS: Pantoprazole Inj IVP SCH ×2 (09:25→20:35)
--- NOTE | 2020-06-15 09:40 | Diagnostic Imaging Report ---
EXAM: XR Chest, 1 View CLINICAL HISTORY: ABN CHST TECHNIQUE: Frontal view of the chest. COMPARISON: Chest x-rays dated 06/13/20 FINDINGS: Lungs: Persistent bilateral dense central pulmonary infiltrates. No new consolidation or effusion seen. Pleural space: Unremarkable. The costophrenic angles are sharp. No visible pneumothorax. Heart: Unremarkable. No cardiomegaly. Mediastinum: Unremarkable. Bones/joints: Unremarkable. Tubes, lines and devices: Tracheostomy tube in place, with expected positioning. Telemetry leads overlie the thorax. IMPRESSION: No significant interval change from the prior chest x-ray. Persistent bilateral dense central pulmonary infiltrates. Differential diagnosis includes pulmonary edema, pneumonia, ARDS, diffuse alveolar hemorrhage..
[2020-06-15] MEDS ORDERED: Sodium Bicarbonate 50ml Carp IV SCH (10:30)
--- NOTE | 2020-06-15 10:31 | Nephrology Progress Note ---
Assessment/Plan Problem List: (1) Acute respiratory failure (2) KERRI (acute kidney injury) (3) Anemia (4) Anemia (5) Hyperkalemia Assessment Acute on chronic renal failure Anemia Respiratory failure acute on chronic Respiratory acidosis and hypoxia Hyperkalemia Plan June 15: ABG pH of 7.1. 2D echo suggestive of ejection fraction of 50%. Labs reviewed. Serum creatinine mariana. Will hold IV Lasix. Will give Kayexalate for high potassium and 1 amp of sodium bicarb. Albumin IV bolus given. Continue per consultants. Continue to monitor renal parameters. Kidney ultrasound ordered. June 14: As follow Pulmonary evaluation Sparrow catheter Hold IV fluid IV fluid, until 2D echo results available Kayexalate for high potassium IV Protonix 2D echocardiogram Anemia work-up More labs ordered Subjective ROS Limited/Unobtainable: Yes Objective Objective Last 24 Hour Vital Signs Date Time Temp Pulse Resp B/P (MAP) Pulse Ox O2 Delivery O2 Flow Rate FiO2 06/15/20 09:10 80 06/15/20 08:40 87 06/15/20 08:00 Mechanical Ventilator Mechanical Ventilator 06/15/20 08:00 96.9 61 16 114/60 (78) 100 06/15/20 08:00 60 06/15/20 07:29 59 21 60 06/15/20 04:37 60 06/15/20 04:00 96.7 67 21 111/62 (78) 96 06/15/20 04:00 Mechanical Ventilator Mechanical Ventilator 06/15/20 04:00 69 06/15/20 02:41 70 21 100 06/15/20 00:00 96.5 72 20 108/68 (81) 97 06/15/20 00:00 Mechanical Ventilator Mechanical Ventilator 06/15/20 00:00 74 06/14/20 22:42 73 19 100 06/14/20 20:40 97.6 77 21 120/76 (91) 98 06/14/20 20:00 Mechanical Ventilator Mechanical Ventilator 06/14/20 20:00 60 06/14/20 19:25 79 06/14/20 18:39 78 19 100 06/14/20 17:15 78 20 100 06/14/20 16:00 Mechanical Ventilator Mechanical Ventilator 06/14/20 16:00 60 06/14/20 16:00 78 06/14/20 16:00 97.2 82 19 127/80 (96) 98 06/14/20 15:23 80 21 100 06/14/20 13:09 79 19 100 06/14/20 12:00 79 06/14/20 12:00 60 06/14/20 12:00 Mechanical Ventilator Mechanical Ventilator 06/14/20 11:59 96.8 78 17 110/76 (87) 98 06/14/20 11:30 78 19 100 Intake and Output 06/14/20 06/15/20 19:00 07:00 Intake Total 180 ml 230 ml Output Total 451 ml 360 ml Balance -271 ml -130 ml Intake Oral 0 ml Free Water 180 ml 120 ml IV Total 110 ml Output Urine Total 450 ml 360 ml Stool Total 1 ml # Bowel Movements 2 5 Current Medications Medications (Trade) Dose Ordered Sig/Maryjane Route PRN Reason Start Time Stop Time Status Last Admin Dose Admin Acetaminophen (Tylenol) 650 mg Q4HR PRN GT FEVER 06/14/20 09:45 07/14/20 09:44 Albumin Human 500 ml @ 0 mls/hr Q0M ONCE IV 06/15/20 10:30 06/15/20 10:31 UNV Chlorhexidine Gluconate (Inés-Hex 2%) 1 applic DAILY@2000 TOPIC 06/14/20 20:00 09/12/20 19:59 06/14/20 20:09 Dextrose (Dextrose 50%) 25 ml Q30M PRN IV Hypoglycemia 06/14/20 03:45 09/12/20 03:44 Dextrose (Dextrose 50%) 50 ml Q30M PRN IV Hypoglycemia 06/14/20 03:45 09/12/20 03:44 Lidocaine HCl (Xylocaine 1% 30ml) 30 ml NOW PRN INJ Radiology Procedure 06/15/20 07:00 06/18/20 06:59 Meropenem 500 mg/ Sodium Chloride 55 ml @ 110 mls/hr EVERY 8 HOURS IVPB 06/14/20 14:00 06/19/20 13:59 06/15/20 05:53 Pantoprazole (Protonix) 40 mg EVERY 12 HOURS IVP 06/14/20 11:45 07/14/20 11:44 06/15/20 09:25 Sodium Bicarbonate (Sodium Bicarbonate 4%) 1 ml NOW PRN IV Radiology Procedure 06/15/20 07:00 11/11/20 06:59 Vancomycin HCl (Vanco pharmacy to dose) 1 ea DAILY PRN MISC Per rx protocol 06/14/20 12:15 07/14/20 12:14 Vancomycin HCl 1 gm/Dextrose 275 ml @ 183.708 mls/hr Q24H IVPB 06/14/20 14:00 06/19/20 13:59 06/14/20 14:40 Laboratory Tests 06/14/20 10:58: Arterial Blood pH 7.222*L, Arterial Blood Partial Pressure CO2 82.1*H, Arterial Blood Partial Pressure O2 286.9H, Arterial Blood HCO3 33.0H, Arterial Blood Oxygen Saturation 99.0, Arterial Blood Base Excess 4.3H, Joe Test Positive 06/14/20 12:44: POC Whole Blood Glucose 115H 06/14/20 18:48: POC Whole Blood Glucose 99 06/15/20 00:25: POC Whole Blood Glucose 97 06/15/20 04:00: White Blood Count 15.0H, Red Blood Count 2.57L, Hemoglobin 7.4L, Hematocrit 25.4L, Mean Corpuscular Volume 99, Mean Corpuscular Hemoglobin 28.6, Mean Corpuscular Hemoglobin Concent 29.0L, Red Cell Distribution Width 14.7, Platelet Count 386, Mean Platelet Volume 7.7, Neutrophils (%) (Auto) , Lymphocytes (%) (Auto) , Monocytes (%) (Auto) , Eosinophils (%) (Auto) , Basophils (%) (Auto) , Differential Total Cells Counted 100, Neutrophils % (Manual) 81H, Lymphocytes % (Manual) 10L, Monocytes % (Manual) 9, Eosinophils % (Manual) 0, Basophils % (Manual) 0, Band Neutrophils 0, Platelet Estimate Adequate, Platelet Morphology Normal, Hypochromasia 1+, Anisocytosis 1+, Sodium Level 136, Potassium Level 5.6H, Chloride Level 102, Carbon Dioxide Level 33H, Anion Gap 1L, Blood Urea Nitrogen 50H, Creatinine 2.4H, Estimat Glomerular Filtration Rate 34.5, Glucose Level 111H, Lactic Acid Level 0.70, Uric Acid 5.3, Calcium Level 8.1L, Phosphorus Level 6.0H, Magnesium Level 2.2, Total Bilirubin 0.3, Gamma Glutamyl Transpeptidase 79, Aspartate Amino Transf (AST/SGOT) 163H, Alanine Aminotransferase (ALT/SGPT) 157H, Alkaline Phosphatase 190H, Lactate Dehydrogenase 235H, Total Creatine Kinase 43, Troponin I 0.002, C-Reactive Protein, Quantitative 15.5H, Pro-B-Type Natriuretic Peptide 19299Z, Total Protein 7.9, Albumin 1.5L, Globulin 6.4, Albumin/Globulin Ratio 0.2L, Triglycerides Level 49, Cholesterol Level 79, LDL Cholesterol 35, HDL Cholesterol 30L, Cholesterol/HDL Ratio 2.6L 06/15/20 05:56: POC Whole Blood Glucose 118H 06/15/20 08:54: Arterial Blood pH 7.125*L, Arterial Blood Partial Pressure CO2 88.3*H, Arterial Blood Partial Pressure O2 67.8L, Arterial Blood HCO3 28.4H, Arterial Blood Oxygen Saturation 91.4L, Arterial Blood Base Excess -1.5, Joe Test Positive Height (Feet): 5 Height (Inches): 8.00 Weight (Pounds): 143 General Appearance: mild distress EENT: other - Trach to vent Cardiovascular: tachycardia Respiratory/Chest: decreased breath sounds Abdomen: distended Leonidas Honeycutt MD Jun 15, 2020 10:31
[2020-06-15 10:57] LABS: BILIRUBIN,DIRECT 0.1 MG/DL (0.0-0.3); BILIRUBIN,TOTAL 0.3 MG/DL (0.2-1.0)
--- NOTE | 2020-06-15 11:02 | NUR ---
NURSE NOTES:Called patient's daughter to get telephone consent for IVC filter. Davidson Rios stated that she had spoken to Dr Biwsas earlier today and that she agrees to the consent. She verbalized understanding that the procedure is to prevent complications from DVT. Consent verified by myself and second RN, Joaquín. Consent placed in the chart.
--- NOTE | 2020-06-15 11:11 | Pulmonology Progress Note ---
Subjective ROS Limited/Unobtainable: Yes Interval Events: None new; remains on vent Constitutional: Reports: no symptoms HEENT: Repors: no symptoms Respiratory: Reports: no symptoms Cardiovascular: Reports: no symptoms Gastrointestinal/Abdominal: Reports: no symptoms Genitourinary: Reports: no symptoms Allergies: Coded Allergies: No Known Allergies (Unverified , 06/13/20) Objective Last 24 Hour Vital Signs Date Time Temp Pulse Resp B/P (MAP) Pulse Ox O2 Delivery O2 Flow Rate FiO2 06/15/20 09:10 80 06/15/20 08:40 87 06/15/20 08:00 Mechanical Ventilator Mechanical Ventilator 06/15/20 08:00 96.9 61 16 114/60 (78) 100 06/15/20 08:00 60 06/15/20 07:29 59 21 60 06/15/20 04:37 60 06/15/20 04:00 96.7 67 21 111/62 (78) 96 06/15/20 04:00 Mechanical Ventilator Mechanical Ventilator 06/15/20 04:00 69 06/15/20 02:41 70 21 100 06/15/20 00:00 96.5 72 20 108/68 (81) 97 06/15/20 00:00 Mechanical Ventilator Mechanical Ventilator 06/15/20 00:00 74 06/14/20 22:42 73 19 100 06/14/20 20:40 97.6 77 21 120/76 (91) 98 06/14/20 20:00 Mechanical Ventilator Mechanical Ventilator 06/14/20 20:00 60 06/14/20 19:25 79 06/14/20 18:39 78 19 100 06/14/20 17:15 78 20 100 06/14/20 16:00 Mechanical Ventilator Mechanical Ventilator 06/14/20 16:00 60 06/14/20 16:00 78 06/14/20 16:00 97.2 82 19 127/80 (96) 98 06/14/20 15:23 80 21 100 06/14/20 13:09 79 19 100 06/14/20 12:00 79 06/14/20 12:00 60 06/14/20 12:00 Mechanical Ventilator Mechanical Ventilator 06/14/20 11:59 96.8 78 17 110/76 (87) 98 06/14/20 11:30 78 19 100 Intake and Output 06/14/20 06/15/20 19:00 07:00 Intake Total 180 ml 230 ml Output Total 451 ml 360 ml Balance -271 ml -130 ml Intake Oral 0 ml Free Water 180 ml 120 ml IV Total 110 ml Output Urine Total 450 ml 360 ml Stool Total 1 ml # Bowel Movements 2 5 General Appearance: no acute distress HEENT: status post trach Respiratory: chest wall non-tender, lungs clear Cardiovascular: normal peripheral pulses, normal rate Abdomen: normal bowel sounds Extremities: no cyanosis Microbiology Date/Time Source Procedure Growth Status 06/13/20 19:01 Nasopharynx SARS-CoV-2 RdRp Gene Assay - Final Complete 06/13/20 17:00 Urine,Clean Catch Urine Culture - Preliminary NO GROWTH AFTER 24 HOURS Resulted Laboratory Tests 06/14/20 12:44: POC Whole Blood Glucose 115H 06/14/20 18:48: POC Whole Blood Glucose 99 06/15/20 00:25: POC Whole Blood Glucose 97 06/15/20 04:00: White Blood Count 15.0H, Red Blood Count 2.57L, Hemoglobin 7.4L, Hematocrit 25.4L, Mean Corpuscular Volume 99, Mean Corpuscular Hemoglobin 28.6, Mean Corpuscular Hemoglobin Concent 29.0L, Red Cell Distribution Width 14.7, Platelet Count 386, Mean Platelet Volume 7.7, Neutrophils (%) (Auto) , Lymphocytes (%) (Auto) , Monocytes (%) (Auto) , Eosinophils (%) (Auto) , Basophils (%) (Auto) , Differential Total Cells Counted 100, Neutrophils % (Manual) 81H, Lymphocytes % (Manual) 10L, Monocytes % (Manual) 9, Eosinophils % (Manual) 0, Basophils % (Manual) 0, Band Neutrophils 0, Platelet Estimate Adequate, Platelet Morphology Normal, Hypochromasia 1+, Anisocytosis 1+, Sodium Level 136, Potassium Level 5.6H, Chloride Level 102, Carbon Dioxide Level 33H, Anion Gap 1L, Blood Urea Nitrogen 50H, Creatinine 2.4H, Estimat Glomerular Filtration Rate 34.5, Glucose Level 111H, Lactic Acid Level 0.70, Uric Acid 5.3, Calcium Level 8.1L, Phosphorus Level 6.0H, Magnesium Level 2.2, Total Bilirubin 0.3, Direct Bilirubin 0.1, Gamma Glutamyl Transpeptidase 79, Aspartate Amino Transf (AST/SGOT) 163H, Alanine Aminotransferase (ALT/SGPT) 157H, Alkaline Phosphatase 190H, Lactate Dehydrogenase 235H, Total Creatine Kinase 43, Troponin I 0.002, C- Reactive Protein, Quantitative 15.5H, Pro-B-Type Natriuretic Peptide 42144P, Total Protein 7.9, Albumin 1.5L, Globulin 6.4, Albumin/Globulin Ratio 0.2L, Triglycerides Level 49, Cholesterol Level 79, LDL Cholesterol 35, HDL Chol esterol 30L, Cholesterol/HDL Ratio 2.6L 06/15/20 05:56: POC Whole Blood Glucose 118H 06/15/20 08:54: Arterial Blood pH 7.125*L, Arterial Blood Partial Pressure CO2 88.3*H, Arterial Blood Partial Pressure O2 67.8L, Arterial Blood HCO3 28.4H, Arterial Blood Oxygen Saturation 91.4L, Arterial Blood Base Excess -1.5, Joe Test Positive Current Medications Medications (Trade) Dose Ordered Sig/Maryjane Route PRN Reason Start Time Stop Time Status Last Admin Dose Admin Acetaminophen (Tylenol) 650 mg Q4HR PRN GT FEVER 06/14/20 09:45 07/14/20 09:44 Albumin Human 500 ml @ 0 mls/hr Q0M ONCE IV 06/15/20 11:30 06/15/20 11:31 Chlorhexidine Gluconate (Inés-Hex 2%) 1 applic DAILY@2000 TOPIC 06/14/20 20:00 09/12/20 19:59 06/14/20 20:09 Dextrose (Dextrose 50%) 25 ml Q30M PRN IV Hypoglycemia 06/14/20 03:45 09/12/20 03:44 Dextrose (Dextrose 50%) 50 ml Q30M PRN IV Hypoglycemia 06/14/20 03:45 09/12/20 03:44 Lidocaine HCl (Xylocaine 1% 30ml) 30 ml NOW PRN INJ Radiology Procedure 06/15/20 07:00 06/18/20 06:59 Meropenem 500 mg/ Sodium Chloride 55 ml @ 110 mls/hr EVERY 8 HOURS IVPB 06/14/20 14:00 06/19/20 13:59 06/15/20 05:53 Pantoprazole (Protonix) 40 mg EVERY 12 HOURS IVP 06/14/20 11:45 07/14/20 11:44 06/15/20 09:25 Sodium Bicarbonate (Sodium Bicarbonate 4%) 1 ml NOW PRN IV Radiology Procedure 06/15/20 07:00 06/18/20 06:59 Sodium Bicarbonate (Sodium Bicarbonate) 100 ml ONCE IV 06/15/20 10:30 06/15/20 11:30 Vancomycin HCl (Vanco pharmacy to dose) 1 ea DAILY PRN MISC Per rx protocol 06/14/20 12:15 07/14/20 12:14 Vancomycin HCl 1 gm/Dextrose 275 ml @ 183.708 mls/hr Q24H IVPB 06/14/20 14:00 06/19/20 13:59 06/14/20 14:40 Assessment/Plan Problems: (1) Acute respiratory failure Assessment/Plan IMPRESSION: 1. Chronic respiratory failure. 2. Hypoxemia. 3. Respiratory acidosis. 4. Anemia. 5. Leukocytosis. 6. DVT DISCUSSION: The patient's x-ray is markedly abnormal with bilateral infiltrates. This could represent pulmonary edema. attempts to diurese have improved oxygenation however Creatinine has increasxed from 1.8-2.4;therefore will dc. No anticoagulation for DVT due to anemia Await 2D echo. Continue assist-control mechanical ventilation, broad-spectrum antibiotics. Transfusion as needed. I will follow carefully. Sylvester Garcia M.D. Sylvester Garcia MD Jun 15, 2020 11:11
--- NOTE | 2020-06-15 11:21 | NUR ---
NURSE NOTES:Called and spoke to Dr Garcia to update him on patient's ABG results and to verify the current vent settings. stated that the current vent settings should remain.
[2020-06-15 12:00] VITALS: BP 118/76
[2020-06-15] MEDS: Vancomycin 1gm/D5W 275ml IVPB SCH ×2 (13:57)
--- NOTE | 2020-06-15 14:15 | NUR ---
NURSE NOTES:Vancomycin stopped and wasted per pharmacy order to stop Vancomycin infusion as patient is in renal failure.
--- NOTE | 2020-06-15 14:53 | Cardiology Report ---
APPROVED REPORT EXAM: Two-dimensional and M-mode echocardiogram with Doppler and color Doppler. INDICATION Atrial Fibrillation M-Mode DIMENSIONS IVSd1.0 (0.7-1.1cm)Left Atrium (MM)3.9 (1.6-4.0cm) LVDd6.0 (3.5-5.6cm)Aortic Root3.2 (2.0-3.7cm) PWd0.9 (0.7-1.1cm)Aortic Cusp Exc.1.6 (1.5-2.0cm) IVSs1.6 cmEPSS0.9 (>1.0cm) LVDs4.4 (2.5-4.0cm) PWs1.2 cm <Conclusion> Normal left ventricular chamber size. Anterior septal left ventricular hypokinesis. Left ventricular ejection fraction estimated to be 50 %. Small pericardial effusion. Mild left atrial enlargement. Right cardiac chamber sizes are within normal limits. Focal aortic valve sclerosis with adequate cusp excursion. Thickened mitral valve leaflets with normal excursion. Mitral annulus and aortic root calcification. Normal pulmonic valve structure. Normal tricuspid valve structure. IVC dilated at 2.6 cm without physiologic collapse suggestive of increased RA pressure. A color flow and spectral Doppler study was performed and revealed: Trace aortic insufficiency. Moderate mitral regurgitation. Mitral inflow indicates restrictive pattern, implying severely elevated left atrial pressure (Grade III ). Moderate to severe tricuspid regurgitation. Tricuspid systolic velocities suggests peak right ventricular systolic pressure of 68 mmHg, consistent with severe pulmonary hypertension. Trace pulmonic regurgitation present.
--- NOTE | 2020-06-15 14:54 | Cardiology Report ---
APPROVED REPORT EKG Measurement Heart [id number] <Conclusion> Normal sinus rhythm Nonspecific T wave abnormality Abnormal ECG
--- NOTE | 2020-06-15 15:10 | Emergency Room Report ---
History of Present Illness General Chief Complaint: Abnormal Labs Source: Patient, EMS Present Illness HPI Patient is a 54-year-old male brought in by ambulance for increased difficulty with breathing. Patient was noted to have increased white blood count. Had recent diagnosis of anemia. Patient is trach and vent dependent for COPD. Had been having increased shortness of breath. Patient's history is markedly limited by mental status and poor historian. Allergies: Coded Allergies: No Known Allergies (Unverified , 06/13/20) COVID-19 Screening Contact w/high risk pt: No Experienced COVID-19 symptoms?: No COVID-19 Testing performed EXCAVATING CONTRACTOR: No COVID-19 Screening: PUI COVID-19 Patient History Past Medical History: see triage record Reviewed Nursing Documentation: PMH: Agreed; PSxH: Agreed Nursing Documentation-PMH Past Medical History: No History, Except For Hx Cardiac Problems: Yes - anemia embolism, heart failure Hx Hypertension: Yes Hx COPD: Yes - tracheostomy Hx Diabetes: Yes Hx Cancer: No Hx Gastrointestinal Problems: Yes - gastrostomy Hx Neurological Problems: Yes - left BKA Hx Dysphasia: Yes Hx Weakness: Yes Review of Systems All Other Systems: limited - Review of systems: Review systems is limited by patient's being a poor historian Physical Exam Vital Signs Date Time Temp Pulse Resp B/P (MAP) Pulse Ox O2 Delivery O2 Flow Rate FiO2 06/13/20 16:39 98.2 64 20 122/74 (90) 98 Mechanical Ventilator 06/13/20 17:00 60 General Appearance: moderate distress, thin, Chronically Ill ENT: normal ENT inspection Neck: limited range of motion, tracheotomy Respiratory: accessory muscle use, rales Cardiovascular #1: normal peripheral pulses, no edema Gastrointestinal: normal inspection, soft Neurologic: alert, motor strength/tone normal, traveling plant operator III-XII nml as tested, oriented x3 Skin: other - Healing amputation area below the knee left lower extremity Procedures Critical Care Time Critical Care Time Patient had a critical medical condition which untreated could potentially result in life or limb threatening injury. Total critical care time excluding procedures approximately 45 minutes. Medical Decision Making Diagnostic Impression: Primary Impression: Abnormal laboratory test result Additional Impressions: Acute respiratory failure Qualified Codes: J96.02 - Acute respiratory failure with hypercapnia Anemia Hyperkalemia ER Course Patient presented for abnormal laboratory testing. Differential diagnosis include was not limited to pneumonia, pulmonary embolism, dehydration, bleeding among others. Because of complexity of patient's case laboratory tests and imaging studies were ordered. Patient was noted to be coming from facility and was noted to be tracheostomy and ventilator dependent. Coronavirus testing was negative. Chest x-ray 1 view read by radiology showed diffuse patchy infiltrates with vascular congestion. See radiology report for full details. Patient is given breathing treatment as well as IV antibiotics. He was typed and screened for blood. Patient was maintained on mechanical ventilation was noted to have marked elevation of his CO2. He was given antibiotics empirically for possible pneumonia. Dr. Neida Dimas was contacted for inpatient management EKG Diagnostic Results Rate: normal Rhythm: NSR ST Segments: no acute changes Last Vital Signs Date Time Temp Pulse Resp B/P (MAP) Pulse Ox O2 Delivery O2 Flow Rate FiO2 06/15/20 12:00 96.6 66 22 118/76 (90) 100 06/15/20 11:42 80 06/15/20 11:41 Mechanical Ventilator Mechanical Ventilator Status: unchanged Disposition: ADMITTED INPATIENT Condition: Serious Referrals: Neida Apple MD (PCP) Devaughn Lange MD Jun 15, 2020 15:10
--- NOTE | 2020-06-15 15:16 | General Progress Note ---
Subjective ROS Limited/Unobtainable: Yes Allergies: Coded Allergies: No Known Allergies (Unverified , 06/13/20) Objective Last 24 Hour Vital Signs Date Time Temp Pulse Resp B/P (MAP) Pulse Ox O2 Delivery O2 Flow Rate FiO2 06/15/20 12:00 96.6 66 22 118/76 (90) 100 06/15/20 12:00 66 06/15/20 11:42 80 06/15/20 11:41 Mechanical Ventilator Mechanical Ventilator 06/15/20 11:29 65 19 80 06/15/20 09:10 80 06/15/20 08:40 87 06/15/20 08:00 Mechanical Ventilator Mechanical Ventilator 06/15/20 08:00 96.9 61 16 114/60 (78) 100 06/15/20 08:00 60 06/15/20 07:29 59 21 60 06/15/20 04:37 60 06/15/20 04:00 96.7 67 21 111/62 (78) 96 06/15/20 04:00 Mechanical Ventilator Mechanical Ventilator 06/15/20 04:00 69 06/15/20 02:41 70 21 100 06/15/20 00:00 96.5 72 20 108/68 (81) 97 06/15/20 00:00 Mechanical Ventilator Mechanical Ventilator 06/15/20 00:00 74 06/14/20 22:42 73 19 100 06/14/20 20:40 97.6 77 21 120/76 (91) 98 06/14/20 20:00 Mechanical Ventilator Mechanical Ventilator 06/14/20 20:00 60 06/14/20 19:25 79 06/14/20 18:39 78 19 100 06/14/20 17:15 78 20 100 06/14/20 16:00 Mechanical Ventilator Mechanical Ventilator 06/14/20 16:00 60 06/14/20 16:00 78 06/14/20 16:00 97.2 82 19 127/80 (96) 98 06/14/20 15:23 80 21 100 Intake and Output 06/14/20 06/15/20 19:00 07:00 Intake Total 180 ml 230 ml Output Total 451 ml 360 ml Balance -271 ml -130 ml Intake Oral 0 ml Free Water 180 ml 120 ml IV Total 110 ml Output Urine Total 450 ml 360 ml Stool Total 1 ml # Bowel Movements 2 5 Laboratory Tests 06/14/20 18:48: POC Whole Blood Glucose 99 06/15/20 00:25: POC Whole Blood Glucose 97 06/15/20 04:00: White Blood Count 15.0H, Red Blood Count 2.57L, Hemoglobin 7.4L, Hematocrit 25.4L, Mean Corpuscular Volume 99, Mean Corpuscular Hemoglobin 28.6, Mean Corpuscular Hemoglobin Concent 29.0L, Red Cell Distribution Width 14.7, Platelet Count 386, Mean Platelet Volume 7.7, Neutrophils (%) (Auto) , Lymphocytes (%) (Auto) , Monocytes (%) (Auto) , Eosinophils (%) (Auto) , Basophils (%) (Auto) , Differential Total Cells Counted 100, Neutrophils % (Manual) 81H, Lymphocytes % (Manual) 10L, Monocytes % (Manual) 9, Eosinophils % (Manual) 0, Basophils % (Manual) 0, Band Neutrophils 0, Platelet Estimate Adequate, Platelet Morphology Normal, Hypochromasia 1+, Anisocytosis 1+, Sodium Level 136, Potassium Level 5.6H, Chloride Level 102, Carbon Dioxide Level 33H, Anion Gap 1L, Blood Urea Ni trogen 50H, Creatinine 2.4H, Estimat Glomerular Filtration Rate 34.5, Glucose Level 111H, Lactic Acid Level 0.70, Uric Acid 5.3, Calcium Level 8.1L, Phosphorus Level 6.0H, Magnesium Level 2.2, Total Bilirubin 0.3, Direct Bilirubin 0.1, Gamma Glutamyl Transpeptidase 79, Aspartate Amino Transf (AST/SGOT) 163H, Alanine Aminotransferase (ALT/SGPT) 157H, Alkaline Phosphatase 190H, Lactate Dehydrogenase 235H, Total Creatine Kinase 43, Troponin I 0.002, C- Reactive Protein, Quantitative 15.5H, Pro-B-Type Natriuretic Peptide 64132T, Total Protein 7.9, Albumin 1.5L, Globulin 6.4, Albumin/Globulin Ratio 0.2L, Triglycerides Level 49, Cholesterol Level 79, LDL Cholesterol 35, HDL Cholesterol 30L, Cholesterol/HDL Ratio 2.6L 06/15/20 05:56: POC Whole Blood Glucose 118H 06/15/20 08:54: Arterial Blood pH 7.125*L, Arterial Blood Partial Pressure CO2 88.3*H, Arterial Blood Partial Pressure O2 67.8L, Arterial Blood HCO3 28.4H, Arterial Blood Oxygen Saturation 91.4L, Arterial Blood Base Excess -1.5, Joe Test Positive 06/15/20 12:02: POC Whole Blood Glucose 163H Height (Feet): 5 Height (Inches): 8.00 Weight (Pounds): 143 Cardiovascular: normal rate Respiratory/Chest: lungs clear Abdomen: soft Assessment/Plan Problem List: (1) Anemia ICD Codes: D64.9 - Anemia, unspecified SNOMED: 158205530 (2) KERRI (acute kidney injury) ICD Codes: N17.9 - Acute kidney failure, unspecified SNOMED: 8152925, 49029368 (3) Acute respiratory failure ICD Codes: J96.00 - Acute respiratory failure, unspecified whether with hypoxia or hypercapnia SNOMED: 54024771 Qualifiers: Qualified Codes: J96.02 - Acute respiratory failure with hypercapnia (4) Hyperkalemia ICD Codes: E87.5 - Hyperkalemia SNOMED: 88105794 (5) Abnormal laboratory test result ICD Codes: R89.9 - Unspecified abnormal finding in specimens from other organs, systems and tissues SNOMED: 717240037 (6) Anemia ICD Codes: D64.9 - Anemia, unspecified SNOMED: 831595286 Status: progressing Assessment/Plan: afebrile resp insuf lyte abnormality anemia check h/h resp acidosis improving pulm edema arf anemia trach and peg Neida Apple MD Jun 15, 2020 15:16
[2020-06-15 16:00] VITALS: BP 100/55
--- NOTE | 2020-06-15 16:00 | NUR ---
NURSE NOTES:Dr Mcguire rounded on patient, informed him of plan for IVC filter tomorrow.
--- NOTE | 2020-06-15 16:43 | Cardiac Electrophysiology PN ---
Assessment/Plan Assessment/Plan 1. Respiratory failure in this patient with vent-dependent respiratory failure. The patient's chest x-ray is suspicious for congestive heart failure or extensive bilateral pneumonia or ARDS. His creatinine is 12.5. Lasix was DCed . EF 50%. Ruled out for NC. BNP 60330. On iv Abx 2. Tachycardia, likely due to respiratory failure. 3. Ventilator-dependent respiratory failure, status post tracheostomy. 4. Dysphagia, status post PEG placement. 5. Renal failure. Further evaluation by Dr. Honeycutt. 6. Right femoral vein DVT. Getting IVC filter tomorrow Subjective Subjective On the Vent in isolation awaiting PCR result Objective Last 24 Hour Vital Signs Date Time Temp Pulse Resp B/P (MAP) Pulse Ox O2 Delivery O2 Flow Rate FiO2 06/15/20 16:00 80 06/15/20 16:00 77 06/15/20 16:00 Mechanical Ventilator Mechanical Ventilator 06/15/20 16:00 96.9 81 21 100/55 (70) 100 06/15/20 15:17 77 9 80 06/15/20 12:00 96.6 66 22 118/76 (90) 100 06/15/20 12:00 66 06/15/20 11:42 80 06/15/20 11:41 Mechanical Ventilator Mechanical Ventilator 06/15/20 11:29 65 19 80 06/15/20 09:10 80 06/15/20 08:40 87 06/15/20 08:00 Mechanical Ventilator Mechanical Ventilator 06/15/20 08:00 96.9 61 16 114/60 (78) 100 06/15/20 08:00 60 06/15/20 07:29 59 21 60 06/15/20 04:37 60 06/15/20 04:00 96.7 67 21 111/62 (78) 96 06/15/20 04:00 Mechanical Ventilator Mechanical Ventilator 06/15/20 04:00 69 06/15/20 02:41 70 21 100 06/15/20 00:00 96.5 72 20 108/68 (81) 97 06/15/20 00:00 Mechanical Ventilator Mechanical Ventilator 06/15/20 00:00 74 06/14/20 22:42 73 19 100 06/14/20 20:40 97.6 77 21 120/76 (91) 98 06/14/20 20:00 Mechanical Ventilator Mechanical Ventilator 06/14/20 20:00 60 06/14/20 19:25 79 06/14/20 18:39 78 19 100 06/14/20 17:15 78 20 100 Intake and Output 06/14/20 06/15/20 19:00 07:00 Intake Total 180 ml 230 ml Output Total 451 ml 360 ml Balance -271 ml -130 ml Intake Oral 0 ml Free Water 180 ml 120 ml IV Total 110 ml Output Urine Total 450 ml 360 ml Stool Total 1 ml # Bowel Movements 2 5 Laboratory Tests Test 06/14/20 18:48 06/15/20 00:25 06/15/20 04:00 06/15/20 05:56 POC Whole Blood Glucose 99 MG/DL (74-106) 97 MG/DL (74-106) 118 MG/DL (74-106) H White Blood Count 15.0 K/UL (4.8-10.8) H Red Blood Count 2.57 M/UL (4.70-6.10) L Hemoglobin 7.4 G/DL (14.2-18.0) L Hematocrit 25.4 % (42.0-52.0) L Mean Corpuscular Volume 99 FL (80-99) Mean Corpuscular Hemoglobin 28.6 PG (27.0-31.0) Mean Corpuscular Hemoglobin Concent 29.0 G/DL (32.0-36.0) L Red Cell Distribution Width 14.7 % (11.6-14.8) Platelet Count 386 K/UL (150-450) Mean Platelet Volume 7.7 FL (6.5-10.1) Neutrophils (%) (Auto) % (45.0-75.0) Lymphocytes (%) (Auto) % (20.0-45.0) Monocytes (%) (Auto) % (1.0-10.0) Eosinophils (%) (Auto) % (0.0-3.0) Basophils (%) (Auto) % (0.0-2.0) Differential Total Cells Counted 100 Neutrophils % (Manual) 81 % (45-75) H Lymphocytes % (Manual) 10 % (20-45) L Monocytes % (Manual) 9 % (1-10) Eosinophils % (Manual) 0 % (0-3) Basophils % (Manual) 0 % (0-2) Band Neutrophils 0 % (0-8) Platelet Estimate Adequate Platelet Morphology Normal Hypochromasia 1+ Anisocytosis 1+ Sodium Level 136 MMOL/L (136-145) Potassium Level 5.6 MMOL/L (3.5-5.1) H Chloride Level 102 MMOL/L (98-107) Carbon Dioxide Level 33 MMOL/L (21-32) H Anion Gap 1 mmol/L (5-15) L Blood Urea Nitrogen 50 mg/dL (7-18) H Creatinine 2.4 MG/DL (0.55-1.30) H Estimat Glomerular Filtration Rate 34.5 mL/min (>60) Glucose Level 111 MG/DL (74-106) H Lactic Acid Level 0.70 mmol/L (0.4-2.0) Uric Acid 5.3 MG/DL (2.6-7.2) Calcium Level 8.1 MG/DL (8.5-10.1) L Phosphorus Level 6.0 MG/DL (2.5-4.9) H Magnesium Level 2.2 MG/DL (1.8-2.4) Total Bilirubin 0.3 MG/DL (0.2-1.0) Direct Bilirubin 0.1 MG/DL (0.0-0.3) Gamma Glutamyl Transpeptidase 79 U/L (5-85) Aspartate Amino Transf (AST/SGOT) 163 U/L (15-37) H Alanine Aminotransferase (ALT/SGPT) 157 U/L (12-78) H Alkaline Phosphatase 190 U/L (46-116) H Lactate Dehydrogenase 235 U/L (81-234) H Total Creatine Kinase 43 U/L (26-308) Troponin I 0.002 ng/mL (0.000-0.056) C-Reactive Protein, Quantitative 15.5 mg/dL (0.00-0.90) H Pro-B-Type Natriuretic Peptide 66070 pg/mL (0-125) H Total Protein 7.9 G/DL (6.4-8.2) Albumin 1.5 G/DL (3.4-5.0) L Globulin 6.4 g/dL Albumin/Globulin Ratio 0.2 (1.0-2.7) L Triglycerides Level 49 MG/DL (30-150) Cholesterol Level 79 MG/DL (< 200) LDL Cholesterol 35 mg/dL (<100) HDL Cholesterol 30 MG/DL (40-60) L Cholesterol/HDL Ratio 2.6 (3.3-4.4) L Test 06/15/20 08:54 06/15/20 12:02 Arterial Blood pH 7.125 (7.350-7.450) Arterial Blood Partial Pressure CO2 88.3 mmHg (35.0-45.0) *H Arterial Blood Partial Pressure O2 67.8 mmHg (75.0-100.0) L Arterial Blood HCO3 28.4 mmol/L (22.0-26.0) H Arterial Blood Oxygen Saturation 91.4 % (95-100) L Arterial Blood Base Excess -1.5 (-2-2) Joe Test Positive POC Whole Blood Glucose 163 MG/DL (74-106) H Microbiology Date/Time Source Procedure Growth Status 06/13/20 19:01 Nasopharynx SARS-CoV-2 RdRp Gene Assay - Final Complete 06/13/20 17:00 Urine,Clean Catch Urine Culture - Preliminary NO GROWTH AFTER 24 HOURS Resulted Objective HEAD AND NECK: Show status post tracheostomy. LUNGS: Coarse rhonchi and basilar rales. CARDIOVASCULAR: Shows irregular S1 and S2 with no gallop. ABDOMEN: Soft. Status post G-tube. EXTREMITIES: No pitting edema. Lance Mcguire MD Jun 15, 2020 16:43
--- NOTE | 2020-06-15 17:04 | NUR ---
NURSE NOTES:Notified Dr Apple of patient sacral incision dehiscence, ordered physician consult for karen per MD order.
--- NOTE | 2020-06-15 18:58 | Consultation ---
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 Patient is awake alert responsive but cannot talk given trach on vent. He is able to follow commands to turn himself. When asked about pain states he is got pain all over. No nausea vomiting fever chills. Pending review prior surgical op notes which are attempting to be obtained. On admission noted to have abnormal chest x-ray Allergies: Coded Allergies: No Known Allergies (Unverified , 06/13/20) Medication History Scheduled Amlodipine Besylate* (Amlodipine Besylate*), 10 MG ORAL DAILY, (Reported) Atorvastatin Calcium* (Atorvastatin Calcium*), 40 MG ORAL BEDTIME, (Reported) Clonidine Hcl* (Catapres*), 0.1 MG ORAL EVERY 6 HOURS, (Reported) Famotidine* (Pepcid 20mg tablet*), 20 MG ORAL DAILY, (Reported) Gabapentin* (Gabapentin*), 300 MG ORAL THREE TIMES A DAY, (Reported) Scheduled PRN Hydrocodone/Acetaminophen (Hydrocodon-Acetaminophn 10-325), 1 TAB ORAL Q4H PRN for For Pain, (Reported) Ondansetron Odt* (Zofran Odt*), 4 MG ORAL Q6H PRN for Nausea & Vomiting, (Reported) Miscellaneous Medications Fludrocortisone Acetate (Fludrocortisone Acetate), 0.1 MG PO, (Reported) Patient History Limited by: medical condition History Provided By: Medical Record, PMD Healthcare decision maker Resuscitation status Advanced Directive on File Past Medical/Surgical History Past Medical/Surgical History: (1) Anemia (2) KERRI (acute kidney injury) (3) Acute respiratory failure (4) Hyperkalemia (5) Anemia (6) Abnormal laboratory test result Review of Systems Constitutional: Denies: no symptoms, see HPI, chills, sweats, fever, malaise, weakness, other Eye: Denies: no symptoms, see HPI, eye pain, blurred vision, tearing, double vision, nose pain, nose congestion, acuity changes, discharge, other ENT: Denies: no symptoms, see HPI, ear pain, ear discharge, nose pain, nose congestion, throat pain, throat swelling, mouth pain, hearing loss, nasal discharge, other Respiratory: Denies: no symptoms, see HPI, cough, orthopnea, shortness of breath, stridor, wheezing, MOTA, sputum, other Cardiovascular: Denies: no symptoms, see HPI, chest pain, edema, palpitations, syncope, PND, other Gastrointestinal: Denies: no symptoms, see HPI, abdominal pain, constipation, diarrhea, nausea, vomiting, melena, hematemesis, other Genitourinary: Denies: no symptoms, see HPI, discharge, dysuria, frequency, hematuria, pain, retention, incontinence, urgency, vag bleed/dc, other Musculoskeletal: Denies: no symptoms, see HPI, back pain, gout, joint pain, joint swelling, muscle pain, muscle stiffness, other Skin: Denies: no symptoms, see HPI, rash, change in color, change in hair/nails, dryness, lesions, other Psychiatric: Denies: no symptoms, see HPI, prior hx, anxiety, depressed feelings, emotional problems, SI, HI, hallucinations, other Neurological: Denies: no symptoms, see HPI, headache, numbness, paresthesia, seizure, tingling, tremors, focal weakness, syncope, dizziness, other Endocrine: Denies: no symptoms, see HPI, excessive sweating, flushing, intolerance to temperature, increased thirst, increased urine, unexplained weight loss, other Hematologic/Lymphatic: Denies: no symptoms, see HPI, anemia, blood clots, easy bleeding, easy bruising, swollen glands, diathesis, other All Other Systems: negative except mentioned in HPI Physical Exam General Appearance: no apparent distress, alert Lines, tubes and drains: peripheral, trach HEENT: normocephalic, atraumatic, anicteric, mucous membranes moist Neck: non-tender, normal alignment, supple, normal inspection, trach Respiratory/Chest: no respiratory distress, no accessory muscle use, decreased breath sounds, on vent Cardiovascular/Chest: normal rate, regular rhythm Abdomen: soft, no organomegaly, no mass, feeding tube, other Genitourinary/Rectal: normal rectal exam Extremities: normal inspection, other - Left BKA Skin Exam: warm/dry, other - Surgical sacral wound Neurologic: alert, responsive Last 24 Hour Vital Signs Date Time Temp Pulse Resp B/P (MAP) Pulse Ox O2 Delivery O2 Flow Rate FiO2 06/15/20 16:00 80 06/15/20 16:00 77 06/15/20 16:00 Mechanical Ventilator Mechanical Ventilator 06/15/20 16:00 96.9 81 21 100/55 (70) 100 06/15/20 15:17 77 9 80 06/15/20 12:00 96.6 66 22 118/76 (90) 100 06/15/20 12:00 66 06/15/20 11:42 80 06/15/20 11:41 Mechanical Ventilator Mechanical Ventilator 06/15/20 11:29 65 19 80 06/15/20 09:10 80 06/15/20 08:40 87 06/15/20 08:00 Mechanical Ventilator Mechanical Ventilator 06/15/20 08:00 96.9 61 16 114/60 (78) 100 06/15/20 08:00 60 06/15/20 07:29 59 21 60 06/15/20 04:37 60 06/15/20 04:00 96.7 67 21 111/62 (78) 96 06/15/20 04:00 Mechanical Ventilator Mechanical Ventilator 06/15/20 04:00 69 06/15/20 02:41 70 21 100 06/15/20 00:00 96.5 72 20 108/68 (81) 97 06/15/20 00:00 Mechanical Ventilator Mechanical Ventilator 06/15/20 00:00 74 06/14/20 22:42 73 19 100 06/14/20 20:40 97.6 77 21 120/76 (91) 98 06/14/20 20:00 Mechanical Ventilator Mechanical Ventilator 06/14/20 20:00 60 06/14/20 19:25 79 Intake and Output 06/14/20 06/15/20 19:00 07:00 Intake Total 180 ml 230 ml Output Total 451 ml 360 ml Balance -271 ml -130 ml Intake Oral 0 ml Free Water 180 ml 120 ml IV Total 110 ml Output Urine Total 450 ml 360 ml Stool Total 1 ml # Bowel Movements 2 5 Laboratory Tests Test 06/15/20 00:25 06/15/20 04:00 06/15/20 05:56 06/15/20 08:54 POC Whole Blood Glucose 97 MG/DL (74-106) 118 MG/DL (74-106) H White Blood Count 15.0 K/UL (4.8-10.8) H Red Blood Count 2.57 M/UL (4.70-6.10) L Hemoglobin 7.4 G/DL (14.2-18.0) L Hematocrit 25.4 % (42.0-52.0) L Mean Corpuscular Volume 99 FL (80-99) Mean Corpuscular Hemoglobin 28.6 PG (27.0-31.0) Mean Corpuscular Hemoglobin Concent 29.0 G/DL (32.0-36.0) L Red Cell Distribution Width 14.7 % (11.6-14.8) Platelet Count 386 K/UL (150-450) Mean Platelet Volume 7.7 FL (6.5-10.1) Neutrophils (%) (Auto) % (45.0-75.0) Lymphocytes (%) (Auto) % (20.0-45.0) Monocytes (%) (Auto) % (1.0-10.0) Eosinophils (%) (Auto) % (0.0-3.0) Basophils (%) (Auto) % (0.0-2.0) Differential Total Cells Counted 100 Neutrophils % (Manual) 81 % (45-75) H Lymphocytes % (Manual) 10 % (20-45) L Monocytes % (Manual) 9 % (1-10) Eosinophils % (Manual) 0 % (0-3) Basophils % (Manual) 0 % (0-2) Band Neutrophils 0 % (0-8) Platelet Estimate Adequate Platelet Morphology Normal Hypochromasia 1+ Anisocytosis 1+ Sodium Level 136 MMOL/L (136-145) Potassium Level 5.6 MMOL/L (3.5-5.1) H Chloride Level 102 MMOL/L (98-107) Carbon Dioxide Level 33 MMOL/L (21-32) H Anion Gap 1 mmol/L (5-15) L Blood Urea Nitrogen 50 mg/dL (7-18) H Creatinine 2.4 MG/DL (0.55-1.30) H Estimat Glomerular Filtration Rate 34.5 mL/min (>60) Glucose Level 111 MG/DL (74-106) H Lactic Acid Level 0.70 mmol/L (0.4-2.0) Uric Acid 5.3 MG/DL (2.6-7.2) Calcium Level 8.1 MG/DL (8.5-10.1) L Phosphorus Level 6.0 MG/DL (2.5-4.9) H Magnesium Level 2.2 MG/DL (1.8-2.4) Total Bilirubin 0.3 MG/DL (0.2-1.0) Direct Bilirubin 0.1 MG/DL (0.0-0.3) Gamma Glutamyl Transpeptidase 79 U/L (5-85) Aspartate Amino Transf (AST/SGOT) 163 U/L (15-37) H Alanine Aminotransferase (ALT/SGPT) 157 U/L (12-78) H Alkaline Phosphatase 190 U/L (46-116) H Lactate Dehydrogenase 235 U/L (81-234) H Total Creatine Kinase 43 U/L (26-308) Troponin I 0.002 ng/mL (0.000-0.056) C-Reactive Protein, Quantitative 15.5 mg/dL (0.00-0.90) H Pro-B-Type Natriuretic Peptide 42275 pg/mL (0-125) H Total Protein 7.9 G/DL (6.4-8.2) Albumin 1.5 G/DL (3.4-5.0) L Globulin 6.4 g/dL Albumin/Globulin Ratio 0.2 (1.0-2.7) L Triglycerides Level 49 MG/DL (30-150) Cholesterol Level 79 MG/DL (< 200) LDL Cholesterol 35 mg/dL (<100) HDL Cholesterol 30 MG/DL (40-60) L Cholesterol/HDL Ratio 2.6 (3.3-4.4) L Arterial Blood pH 7.125 (7.350-7.450) Arterial Blood Partial Pressure CO2 88.3 mmHg (35.0-45.0) *H Arterial Blood Partial Pressure O2 67.8 mmHg (75.0-100.0) L Arterial Blood HCO3 28.4 mmol/L (22.0-26.0) H Arterial Blood Oxygen Saturation 91.4 % (95-100) L Arterial Blood Base Excess -1.5 (-2-2) Joe Test Positive Test 06/15/20 12:02 06/15/20 18:14 POC Whole Blood Glucose 163 MG/DL (74-106) H 131 MG/DL (74-106) H Height (Feet): 5 Height (Inches): 8.00 Weight (Pounds): 143 Medications Current Medications Medications (Trade) Dose Ordered Sig/Maryjane Route PRN Reason Start Time Stop Time Status Last Admin Dose Admin Acetaminophen (Tylenol) 650 mg Q4HR PRN GT FEVER 06/14/20 09:45 07/14/20 09:44 Chlorhexidine Gluconate (Inés-Hex 2%) 1 applic DAILY@2000 TOPIC 06/14/20 20:00 09/12/20 19:59 06/14/20 20:09 Dextrose (Dextrose 50%) 25 ml Q30M PRN IV Hypoglycemia 06/14/20 03:45 09/12/20 03:44 Dextrose (Dextrose 50%) 50 ml Q30M PRN IV Hypoglycemia 06/14/20 03:45 09/12/20 03:44 Lidocaine HCl (Xylocaine 1% 30ml) 30 ml NOW PRN INJ Radiology Procedure 06/15/20 07:00 06/18/20 06:59 Meropenem 500 mg/ Sodium Chloride 55 ml @ 110 mls/hr EVERY 8 HOURS IVPB 06/14/20 14:00 06/19/20 13:59 06/15/20 13:55 Pantoprazole (Protonix) 40 mg EVERY 12 HOURS IVP 06/14/20 11:45 07/14/20 11:44 06/15/20 09:25 Sodium Bicarbonate (Sodium Bicarbonate 4%) 1 ml NOW PRN IV Radiology Procedure 06/15/20 07:00 06/18/20 06:59 Vancomycin HCl (Vanco pharmacy to dose) 1 ea DAILY PRN MISC Per rx protocol 06/14/20 12:15 07/14/20 12:14 Assessment/Plan Problem List: (1) Leukocytosis Assessment & Plan: 54-year-old male multiple comorbidities admitted for abnormal chest x-ray potentially pneumonia leukocytosis abnormal labs. Patient identified to have a prior left BKA surgical sutures still in place as well as a surgical sacral wound with sutures in place. Considerations of dehiscence being identified and potential etiology of infection. After evaluation unlikely source of infection though the sacral wound was looked to be dehiscing at the inferior aspect. No acute surgical mention at this time We will discussed care plan with PCP Recommend follow-up with initial surgeon considerations of removal of surgical sutures Care plan initiated ICD Codes: D72.829 - Elevated white blood cell count, unspecified SNOMED: 304497759, 687982039 (2) Surgical wound dehiscence Assessment & Plan: Patient identified to have a left BKA surgical sutures in place flap looks like it is taken well no signs of infection at this time no signs of seroma hematoma or drainage. Unknown exact length or duration of poten tial prior left BKA and until then recommend leaving sutures in place as it may be too early though it does look well-healed. If able to obtain prior records we will be happy to remove sutures otherwise will need follow-up with primary surgeon furthermore patient identified to have a surgical wound in the sacral area seems he probably potentially had a stage IV sacral decubitus ulcer that had debridement and primary closure. Fortunately. Sutures are still in place and it looks like the inferior aspect may be slowly dehiscing. There is no significant drainage no foul odor no signs of active infection unknown if bone was palpable prior. Can consider removing surgical sutures but again would recommend obtaining prior records of possible prior to doing so. Also recommend following up with primary surgeon as this may need ongoing continued care. Will follow with recommendations and as information is available. Continue current care plan. Wash wounds daily with normal saline. Apply skin protectant Optifoam dressing. Turn every 2 hours. Offload pressure with pillows and air mattress. Nutritional optimization. ICD Codes: T81.31XA - Disruption of external operation (surgical) wound, not elsewhere classified, initial encounter SNOMED: 50001672 (3) History of left below knee amputation ICD Codes: Z89.512 - Acquired absence of left leg below knee SNOMED: 484575471, 204957795575701 (4) Malnutrition Assessment & Plan: DAILY ESTIMATED NEEDS: Needs based on Wound, critical care, underweight/ 55.5kg 25-33 kcals/kg 6383-8187 total kcals 1.25-2 g protein/kg 69-111 g total protein 25-30 mL/kg 5055-1784 total fluid mLs NUTRITION DIAGNOSIS: * Swallowing difficulty R/T respiratory status as evidenced by pt is trach/vent dep, PEG dep, NPO at this time. CURRENT TF:NPO ENTERAL NUTRITION RECOMMENDATIONS: Nepro @ 40ml/hr x 24 hrs to provide 960ml, 1728kcal, 78g prot, 698ml free water * Rec to continue SAP BASIS CONSULTANT TF of Nepro (K 5.8, 5.0) * Rec goal rate of 40ml/hr x 24 hrs * HOB over 30 degrees/ water flush per MD ADDITIONAL RECOMMENDATIONS: * Per SNF: HT=69" [id number] -> rec daily calibrated bedscale wt * Monitor lytes: elev K * Wound healing: f/up w/ WC eval add Vit C 500mg QD, Av BID via PEG ICD Codes: E46 - Unspecified protein-calorie malnutrition SNOMED: 27260754 (5) Anemia ICD Codes: D64.9 - Anemia, unspecified SNOMED: 471669374 (6) KERRI (acute kidney injury) ICD Codes: N17.9 - Acute kidney failure, unspecified SNOMED: 2398426, 34104056 (7) Acute respiratory failure ICD Codes: J96.00 - Acute respiratory failure, unspecified whether with hypoxia or hypercapnia SNOMED: 54205103 Qualifiers: Qualified Codes: J96.02 - Acute respiratory failure with hypercapnia (8) Hyperkalemia ICD Codes: E87.5 - Hyperkalemia SNOMED: 94815679 (9) Anemia ICD Codes: D64.9 - Anemia, unspecified SNOMED: 631235123 (10) Abnormal laboratory test result ICD Codes: R89.9 - Unspecified abnormal finding in specimens from other organs, systems and tissues SNOMED: 012203744 Azar Mares Jun 15, 2020 18:58
--- NOTE | 2020-06-15 19:25 | NUR ---
NURSE NOTES: Received report from MAX Encinas. Patient awake in bed, alert x 2-3, responsive to verbal and tactile stimuli, pt follows commands, afebrile and no respiratory distress noted. Vent to trache Shiley 8, AC 16, Tidal volume 500ml, FiO2 80% and PEEP 5 saturating at 100%. With right upper arm PICC line single lumen intact, patent and asymptomatic. With GT in place for medication only. Pt NPO except ice chips and medication. With cabrera catheter to urine bag draining gerard yellow. HOB elevated. Needs were attended. Call light within reach. Bed rails are up and wheels are locked Continue plan of care
--- NOTE | 2020-06-15 19:38 | NUR ---
NURSE HAND-OFF REPORT: Important Events on Shift: Patient Status: Stable Diet: NPO except ice meds/chips Pending Orders: Pending Results/Labs:Renal UT pending, IVC filter placement scheduled for tomorrow. Pending MD notification: Latest Vital Signs: Temperature 96.9 , Pulse 77 , B/P 100 /55 , Respiratory Rate 21 , O2 SAT 100 , Mechanical Ventilator, O2 Flow Rate . Vital Sign Comment: EKG Rhythm: Sinus Rhythm Rhythm change?: N MD Notified?: MD Response: Latest Santiago Fall Score: 45 Fall Risk: High Risk Safety Measures: Call light Within Reach, Bed Alarm Zone 2, Side Rails Side Rails x2, Bed position Low and Locked. Fall Precautions: fall education provided, patient uses call light. Patient Fall Education Report given to MAX WILLINGH[place].
[2020-06-15 20:00] VITALS: BP 110/65
[2020-06-15] MEDS: Dyna-Hex 2% Top Sol 2oz TOPIC SCH (20:00)
[2020-06-15] MEDS ORDERED: NEURONTIN300 MG GT (20:38)
[2020-06-15] MEDS ORDERED: ONDANSETRON ODT4 MG GT (20:38)
[2020-06-15] MEDS ORDERED: ACETAMINOP160 MG/5 M GT (20:39)
[2020-06-15] MEDS ORDERED: ACETAMINOPHEN500 M3 GT (20:39)
[2020-06-15] MEDS ORDERED: HUMALOG100 UNIT/3 SUBQ (20:39)
[2020-06-15] MEDS ORDERED: ZINC SULFATE220 M1 GT (20:51)
[2020-06-15] MEDS ORDERED: COLACE100 MG GT (20:51)
[2020-06-15] MEDS ORDERED: FLEET ENEMA133 ML RECTAL (20:51)
[2020-06-15] MEDS ORDERED: FERROUS SULFAT325 MG GT (20:51)
[2020-06-15] MEDS ORDERED: PRO-STAT LIQUID30 ML GT (20:51)
[2020-06-15] MEDS ORDERED: ATIVAN1 MG GT (20:51)
[2020-06-15] MEDS ORDERED: UTI-STAT L3875 MG/31 GT (20:51)
[2020-06-15] MEDS ORDERED: VITAMIN C500 M1 GT (20:51)
[2020-06-15] MEDS ORDERED: LEXAPRO10 MG GT (20:51)
[2020-06-15] MEDS ORDERED: FIBER-STAT15 GM/30 M GT (20:51)
[2020-06-15] MEDS ORDERED: DULCOLAX10 MG RC (20:51)
[2020-06-15] MEDS ORDERED: MILK OF MA400 MG/51 GT (20:51)
[2020-06-15] MEDS ORDERED: MIRTAZAPINE7.5 MG GT (20:51)
[2020-06-15] MEDS ORDERED: MULTIVITAMINS1 EAC8 GT (20:51)
[2020-06-16] VITALS: BP 120/73
--- NOTE | 2020-06-16 02:00 | NUR ---
NURSE NOTES: Pt asleep and tried to wake up to clean. Pt refuse and wants to sleep. Informed patient the RN will come back later.
[2020-06-16 04:00] VITALS: BP 116/70
[2020-06-16] MEDS: Meropenem 500 MG in NS 55 ML IVPB SCH ×3 (05:26→22:08)
--- NOTE | 2020-06-16 06:10 | NUR ---
NURSE NOTES: Dr Tan at bedside. NNO. Pending lab results.
--- NOTE | 2020-06-16 06:10 | NUR ---
NURSE NOTES: Pt was pulled up in the bed. Offered blanket. Pt refused will rudy it later. Gown and linen were changed. Pt tolerated well. No discomforts noted. Continue plan of care
--- NOTE | 2020-06-16 06:54 | Hematology/Onc Progress Note ---
Assessment/Plan Assessment/Plan ASSESSMENT AND PLAN: #. Anemia that is likely due to chronic disease, r/o gi bleeding --> anemia panel has been reviewed, ferritin is >2000 --> no e/o hemolysis is noted --> transfuse on prn basis --> blood consent has been signed --> hgb 7.4-->7.4 --> folic acid is wnl # Acute DVT in the distal right common femoral vein and profunda femoris vein. --> cannot anticoagulate at this time --> will order for ivc filter placement # Leukocytosis is likely due to b/l infiltrates --> on abx as per id -> ABX yolis/vanc --> continue trend --> wbc 15 # Respiratory failure in this patient with vent-dependent respiratory failure. T --> cxr with pna/chf --> diuresis prn # Tachycardia, likely due to respiratory failure. # Left bka # Ventilator-dependent respiratory failure, status post tracheostomy. # Dysphagia, status post PEG placement. # Renal failure. Further evaluation by Dr. Honeycutt. # Hyperkalemia and kayxelate as needed. # Dvt ppx scds Appreciate consultation and angela RN Subjective HEENT: Denies: no symptoms, eye pain, blurred vision, tearing, double vision, ear pain, ear discharge, nose pain, nose congestion, throat pain, throat swelling, mouth pain, mouth swelling, other Cardiovascular: Denies: no symptoms, chest pain, edema, irregular heart rate, lightheadedness, palpitations, syncope, other Respiratory: Denies: no symptoms, cough, shortness of breath, SOB with excertion, SOB at rest, sputum, wheezing, other Gastrointestinal/Abdominal: Denies: no symptoms, abdomen distended, abdominal pain, black stools, tarry stools, blood in stool, constipated, diarrhea, difficulty swallowing, nausea, poor appetite, poor fluid intake, rectal bleeding, vomiting, other Genitourinary: Denies: no symptoms, burning, discharge, frequency, flank pain, hematuria, incontinence, pain, urgency, other Neurologic/Psychiatric: Denies: no symptoms, anxiety, depressed, emotional problems, headache, numbness, paresthesia, pre-existing deficit, seizure, tingling, tremors, weakness, other Endocrine: Denies: no symptoms, excessive sweating, flushing, intolerance to cold, intolerance to heat, increased hunger, increased thirst, increased urine, unexplained weight gain, unexplained weight loss, other Hematologic/Lymphatic: Denies: no symptoms, anemia, easy bleeding, easy bruising, adenopathy, other Allergies: Coded Allergies: No Known Allergies (Unverified , 06/13/20) Subjective 06/16 meds noted, labs reviewed, vent to trach, for ivc filter potentially Objective Objective Current Medications Medications (Trade) Dose Ordered Sig/Maryjane Route PRN Reason Start Time Stop Time Status Last Admin Dose Admin Acetaminophen (Tylenol) 650 mg Q4HR PRN GT FEVER 06/14/20 09:45 07/14/20 09:44 Ascorbic Acid (Vitamin C) 500 mg DAILY ORAL 06/16/20 09:00 07/16/20 08:59 Chlorhexidine Gluconate (Inés-Hex 2%) 1 applic DAILY@2000 TOPIC 06/14/20 20:00 09/12/20 19:59 06/15/20 20:00 Dextrose (Dextrose 50%) 25 ml Q30M PRN IV Hypoglycemia 06/14/20 03:45 09/12/20 03:44 Dextrose (Dextrose 50%) 50 ml Q30M PRN IV Hypoglycemia 06/14/20 03:45 09/12/20 03:44 Lidocaine HCl (Xylocaine 1% 30ml) 30 ml NOW PRN INJ Radiology Procedure 06/15/20 07:00 06/18/20 06:59 Meropenem 500 mg/ Sodium Chloride 55 ml @ 110 mls/hr EVERY 8 HOURS IVPB 06/14/20 14:00 06/19/20 13:59 06/16/20 05:26 Pantoprazole (Protonix) 40 mg EVERY 12 HOURS IVP 06/14/20 11:45 07/14/20 11:44 06/15/20 20:35 Sodium Bicarbonate (Sodium Bicarbonate 4%) 1 ml NOW PRN IV Radiology Procedure 06/15/20 07:00 06/18/20 06:59 Vancomycin HCl ([facility] pharmacy to dose) 1 ea DAILY PRN MISC Per rx protocol 06/14/20 12:15 07/14/20 12:14 Last 24 Hour Vital Signs Date Time Temp Pulse Resp B/P (MAP) Pulse Ox O2 Delivery O2 Flow Rate FiO2 06/16/20 04:00 Mechanical Ventilator Mechanical Ventilator 06/16/20 04:00 96.7 72 20 116/70 (85) 100 06/16/20 04:00 80 06/16/20 03:33 74 06/16/20 03:05 74 23 80 06/16/20 00:00 Mechanical Ventilator Mechanical Ventilator 06/16/20 00:00 97.5 71 20 120/73 (89) 100 06/15/20 23:29 73 06/15/20 23:15 79 22 80 06/15/20 20:00 80 06/15/20 20:00 Mechanical Ventilator Mechanical Ventilator 06/15/20 20:00 97.8 79 20 110/65 (80) 100 06/15/20 19:50 93 06/15/20 19:15 76 19 80 06/15/20 16:00 80 06/15/20 16:00 77 06/15/20 16:00 Mechanical Ventilator Mechanical Ventilator 06/15/20 16:00 96.9 81 21 100/55 (70) 100 06/15/20 15:17 77 9 80 06/15/20 12:00 96.6 66 22 118/76 (90) 100 06/15/20 12:00 66 06/15/20 11:42 80 06/15/20 11:41 Mechanical Ventilator Mechanical Ventilator 06/15/20 11:29 65 19 80 06/15/20 09:10 80 06/15/20 08:40 87 06/15/20 08:00 Mechanical Ventilator Mechanical Ventilator 06/15/20 08:00 96.9 61 16 114/60 (78) 100 06/15/20 08:00 60 06/15/20 07:29 59 21 60 06/15/20 04:37 60 06/15/20 04:00 96.7 67 21 111/62 (78) 96 06/15/20 04:00 Mechanical Ventilator Mechanical Ventilator 06/15/20 04:00 69 06/15/20 02:41 70 21 100 06/15/20 00:00 96.5 72 20 108/68 (81) 97 06/15/20 00:00 Mechanical Ventilator Mechanical Ventilator 06/15/20 00:00 74 06/14/20 22:42 73 19 100 06/14/20 20:40 97.6 77 21 120/76 (91) 98 06/14/20 20:00 Mechanical Ventilator Mechanical Ventilator 06/14/20 20:00 60 06/14/20 19:25 79 06/14/20 18:39 78 19 100 06/14/20 17:15 78 20 100 06/14/20 16:00 Mechanical Ventilator Mechanical Ventilator 06/14/20 16:00 60 06/14/20 16:00 78 06/14/20 16:00 97.2 82 19 127/80 (96) 98 06/14/20 15:23 80 21 100 06/14/20 13:09 79 19 100 06/14/20 12:00 79 06/14/20 12:00 60 06/14/20 12:00 Mechanical Ventilator Mechanical Ventilator 06/14/20 11:59 96.8 78 17 110/76 (87) 98 06/14/20 11:30 78 19 100 06/14/20 09:00 Mechanical Ventilator Mechanical Ventilator 06/14/20 08:48 78 18 100 06/14/20 08:00 96.9 77 17 130/85 (100) 98 06/14/20 08:00 60 06/14/20 07:52 75 06/14/20 07:28 81 17 60 Intake and Output 06/15/20 06/16/20 19:00 07:00 Intake Total 180 ml 110 ml Output Total 475 ml 200 ml Balance -295 ml -90 ml Intake Oral 0 ml Free Water 180 ml IV Total 110 ml Output Urine Total 475 ml 200 ml # Bowel Movements 5 Labs Test 06/13/20 16:56 06/13/20 17:00 06/13/20 23:31 06/14/20 02:45 Arterial Blood pH 7.200 (7.350-7.450) Arterial Blood Partial Pressure CO2 87.4 mmHg (35.0-45.0) Arterial Blood Partial Pressure O2 90.5 mmHg (75.0-100.0) Arterial Blood HCO3 33.4 mmol/L (22.0-26.0) Arterial Blood Oxygen Saturation 95.7 % (95-100) Arterial Blood Base Excess 4.1 (-2-2) Joe Test Positive White Blood Count 17.7 K/UL (4.8-10.8) 13.9 K/UL (4.8-10.8) Red Blood Count 2.58 M/UL (4.70-6.10) 2.64 M/UL (4.70-6.10) Hemoglobin 7.4 G/DL (14.2-18.0) 7.5 G/DL (14.2-18.0) Hematocrit 23.9 % (42.0-52.0) 25.8 % (42.0-52.0) Mean Corpuscular Volume 93 FL (80-99) 98 FL (80-99) Mean Corpuscular Hemoglobin 28.8 PG (27.0-31.0) 28.5 PG (27.0-31.0) Mean Corpuscular Hemoglobin Concent 31.1 G/DL (32.0-36.0) 29.2 G/DL (32.0-36.0) Red Cell Distribution Width 15.3 % (11.6-14.8) 15.2 % (11.6-14.8) Platelet Count 367 K/UL (150-450) 374 K/UL (150-450) Mean Platelet Volume 7.1 FL (6.5-10.1) 7.8 FL (6.5-10.1) Neutrophils (%) (Auto) % (45.0-75.0) % (45.0-75.0) Lymphocytes (%) (Auto) % (20.0-45.0) % (20.0-45.0) Monocytes (%) (Auto) % (1.0-10.0) % (1.0-10.0) Eosinophils (%) (Auto) % (0.0-3.0) % (0.0-3.0) Basophils (%) (Auto) % (0.0-2.0) % (0.0-2.0) Differential Total Cells Counted 100 100 Neutrophils % (Manual) 82 % (45-75) 89 % (45-75) Lymphocytes % (Manual) 8 % (20-45) 7 % (20-45) Monocytes % (Manual) 7 % (1-10) 4 % (1-10) Eosinophils % (Manual) 3 % (0-3) 0 % (0-3) Basophils % (Manual) 0 % (0-2) 0 % (0-2) Band Neutrophils 0 % (0-8) 0 % (0-8) Platelet Estimate Adequate Adequate Platelet Morphology Normal Normal Hypochromasia 2+ 1+ Anisocytosis 1+ 1+ Prothrombin Time 12.7 SEC (9.30-11.50) Prothromb Time International Ratio 1.2 (0.9-1.1) Activated Partial Thromboplast Time 31 SEC (23-33) Urine Color Yellow Urine Appearance Cloudy Urine pH 5 (4.5-8.0) Urine Specific [place] 1.015 (1.005-1.035) Urine Protein 4+ (NEGATIVE) Urine Glucose (UA) Negative (NEGATIVE) Urine Ketones 1+ (NEGATIVE) Urine Blood 5+ (NEGATIVE) Urine Nitrite Negative (NEGATIVE) Urine Bilirubin Negative (NEGATIVE) Urine Urobilinogen Normal MG/DL (0.0-1.0) Urine Leukocyte Esterase 1+ (NEGATIVE) Urine RBC 10-15 /HPF (0 - 0) Urine WBC 0-2 /HPF (0 - 0) Urine Squamous Epithelial Cells None /LPF (NONE/OCC) Urine Bacteria Few /HPF (NONE) Urine Yeast Few /HPF (NONE) Sodium Level 138 MMOL/L (136-145) 138 MMOL/L (136-145) Potassium Level 5.0 MMOL/L (3.5-5.1) 5.8 MMOL/L (3.5-5.1) Chloride Level 104 MMOL/L (98-107) 104 MMOL/L (98-107) Carbon Dioxide Level 31 MMOL/L (21-32) 30 MMOL/L (21-32) Anion Gap 3 mmol/L (5-15) 4 mmol/L (5-15) Blood Urea Nitrogen 33 mg/dL (7-18) 38 mg/dL (7-18) Creatinine 1.7 MG/DL (0.55-1.30) 1.8 MG/DL (0.55-1.30) Estimat Glomerular Filtration Rate 51.4 mL/min (>60) 48.1 mL/min (>60) Glucose Level 89 MG/DL (74-106) 134 MG/DL (74-106) Calcium Level 8.6 MG/DL (8.5-10.1) 8.5 MG/DL (8.5-10.1) Total Bilirubin 0.2 MG/DL (0.2-1.0) 0.3 MG/DL (0.2-1.0) Aspartate Amino Transf (AST/SGOT) 110 U/L (15-37) 543 U/L (15-37) Alanine Aminotransferase (ALT/SGPT) 47 U/L (12-78) 215 U/L (12-78) Alkaline Phosphatase 183 U/L (46-116) 247 U/L (46-116) Total Protein 7.8 G/DL (6.4-8.2) 7.8 G/DL (6.4-8.2) Albumin 1.2 G/DL (3.4-5.0) 1.2 G/DL (3.4-5.0) Globulin 6.6 g/dL 6.6 g/dL Albumin/Globulin Ratio 0.2 (1.0-2.7) 0.2 (1.0-2.7) Test 06/14/20 05:32 06/14/20 10:15 06/14/20 10:58 06/14/20 12:44 POC Whole Blood Glucose 135 MG/DL (74-106) 115 MG/DL (74-106) Phosphorus Level 4.4 MG/DL (2.5-4.9) Magnesium Level 2.2 MG/DL (1.8-2.4) Iron Level 15 ug/dL (50-175) Total Iron Binding Capacity 101 ug/dL (250-450) Percent Iron Saturation 15 % (15-50) Unsaturated Iron Binding 86 ug/dL (112-346) Ferritin > 2000 NG/ML (8-388) Troponin I 0.000 ng/mL (0.000-0.056) Vitamin B12 Level > 2000 PG/ML (193-986) Folate 16.4 NG/ML (8.6-58.9) Arterial Blood pH 7.222 (7.350-7.450) Arterial Blood Partial Pressure CO2 82.1 mmHg (35.0-45.0) Arterial Blood Partial Pressure O2 286.9 mmHg (75.0-100.0) Arterial Blood HCO3 33.0 mmol/L (22.0-26.0) Arterial Blood Oxygen Saturation 99.0 % (95-100) Arterial Blood Base Excess 4.3 (-2-2) Joe Test Positive Test 06/14/20 18:48 06/15/20 00:25 06/15/20 04:00 06/15/20 05:56 POC Whole Blood Glucose 99 MG/DL (74-106) 97 MG/DL (74-106) 118 MG/DL (74-106) White Blood Count 15.0 K/UL (4.8-10.8) Red Blood Count 2.57 M/UL (4.70-6.10) Hemoglobin 7.4 G/DL (14.2-18.0) Hematocrit 25.4 % (42.0-52.0) Mean Corpuscular Volume 99 FL (80-99) Mean Corpuscular Hemoglobin 28.6 PG (27.0-31.0) Mean Corpuscular Hemoglobin Concent 29.0 G/DL (32.0-36.0) Red Cell Distribution Width 14.7 % (11.6-14.8) Platelet Count 386 K/UL (150-450) Mean Platelet Volume 7.7 FL (6.5-10.1) Neutrophils (%) (Auto) % (45.0-75.0) Lymphocytes (%) (Auto) % (20.0-45.0) Monocytes (%) (Auto) % (1.0-10.0) Eosinophils (%) (Auto) % (0.0-3.0) Basophils (%) (Auto) % (0.0-2.0) Differential Total Cells Counted 100 Neutrophils % (Manual) 81 % (45-75) Lymphocytes % (Manual) 10 % (20-45) Monocytes % (Manual) 9 % (1-10) Eosinophils % (Manual) 0 % (0-3) Basophils % (Manual) 0 % (0-2) Band Neutrophils 0 % (0-8) Platelet Estimate Adequate Platelet Morphology Normal Hypochromasia 1+ Anisocytosis 1+ Sodium Level 136 MMOL/L (136-145) Potassium Level 5.6 MMOL/L (3.5-5.1) Chloride Level 102 MMOL/L (98-107) Carbon Dioxide Level 33 MMOL/L (21-32) Anion Gap 1 mmol/L (5-15) Blood Urea Nitrogen 50 mg/dL (7-18) Creatinine 2.4 MG/DL (0.55-1.30) Estimat Glomerular Filtration Rate 34.5 mL/min (>60) Glucose Level 111 MG/DL (74-106) Lactic Acid Level 0.70 mmol/L (0.4-2.0) Uric Acid 5.3 MG/DL (2.6-7.2) Calcium Level 8.1 MG/DL (8.5-10.1) Phosphorus Level 6.0 MG/DL (2.5-4.9) Magnesium Level 2.2 MG/DL (1.8-2.4) Total Bilirubin 0.3 MG/DL (0.2-1.0) Direct Bilirubin 0.1 MG/DL (0.0-0.3) Gamma Glutamyl Transpeptidase 79 U/L (5-85) Aspartate Amino Transf (AST/SGOT) 163 U/L (15-37) Alanine Aminotransferase (ALT/SGPT) 157 U/L (12-78) Alkaline Phosphatase 190 U/L (46-116) Lactate Dehydrogenase 235 U/L (81-234) Total Creatine Kinase 43 U/L (26-308) Troponin I 0.002 ng/mL (0.000-0.056) C-Reactive Protein, Quantitative 15.5 mg/dL (0.00-0.90) Pro-B-Type Natriuretic Peptide 76654 pg/mL (0-125) Total Protein 7.9 G/DL (6.4-8.2) Albumin 1.5 G/DL (3.4-5.0) Globulin 6.4 g/dL Albumin/Globulin Ratio 0.2 (1.0-2.7) Triglycerides Level 49 MG/DL (30-150) Cholesterol Level 79 MG/DL (< 200) LDL Cholesterol 35 mg/dL (<100) HDL Cholesterol 30 MG/DL (40-60) Cholesterol/HDL Ratio 2.6 (3.3-4.4) Test 06/15/20 08:54 06/15/20 12:02 06/15/20 18:14 06/15/20 23:36 Arterial Blood pH 7.125 (7.350-7.450) Arterial Blood Partial Pressure CO2 88.3 mmHg (35.0-45.0) Arterial Blood Partial Pressure O2 67.8 mmHg (75.0-100.0) Arterial Blood HCO3 28.4 mmol/L (22.0-26.0) Arterial Blood Oxygen Saturation 91.4 % (95-100) Arterial Blood Base Excess -1.5 (-2-2) Joe Test Positive POC Whole Blood Glucose 163 MG/DL (74-106) 131 MG/DL (74-106) 94 MG/DL (74-106) Test 06/16/20 05:24 POC Whole Blood Glucose 110 MG/DL (74-106) Height (Feet): 5 Height (Inches): 8.00 Weight (Pounds): 143 Objective PHYSICAL EXAMINATION: VITAL SIGNS: reviewed HEAD AND NECK: Show status post tracheostomy. vent+ LUNGS: Coarse rhonchi and basilar rales. CARDIOVASCULAR: Shows irregular S1 and S2 with no gallop. ABDOMEN: Soft. Status post G-tube. EXTREMITIES: No pitting edema.++Left Jose Epperson MD Jun 16, 2020 06:54
--- NOTE | 2020-06-16 07:25 | NUR ---
NURSE HAND-OFF REPORT: Important Events on Shift: none Patient Status: stable Diet: npo Pending Orders: cbc, bmp Pending Results/Labs:n Pending MD notification:n Latest Vital Signs: Temperature 96.7 , Pulse 66 , B/P 116 /70 , Respiratory Rate 24 , O2 SAT 100 , Mechanical Ventilator, O2 Flow Rate . Vital Sign Comment: n EKG Rhythm: Sinus Rhythm Rhythm change?: N MD Notified?: Y -Dr. Ruel BENDER Response: No New Orders Received Latest Santiago Fall Score: 45 Fall Risk: High Risk Safety Measures: Call light Within Reach, Bed Alarm Zone 2, Side Rails Side Rails x2, Bed position Low and Locked. Fall Precautions: Patient Fall Education Report given to Nohelia Resendiz. Endorsed that Dr Oneil wants to give PRBC 1 unit if Hgb today is < 7.2 before doing IVC filter isnertion. Endorsed to FF up with Dr Tan regarding Blood transfusion plan. AM nurse understood.
--- NOTE | 2020-06-16 07:26 | NUR ---
NURSE NOTES: Pt received from MAULIK RN in stable condition without cardiopulmonary distress. Pt is AAOx2 - SR to tie man - Trache to vent: Portex 8 AC 16 TV 500 FiO2 80% Peep 8. Pt is currently NPO (will f/u with nutrition recommendation for TF). GT noted clamped. F/C noted draining urine. Skin alterations noted. Pt has a PARVIN PICC with dry and intact dressing running NS TKO at 10 cc/hr. Bed in lowest position. Alarm on. Side rails up x 3. Call light within reach. Will continue to monitor.
[2020-06-16 07:32] LABS: HEMATOCRIT 23.6 % (42.0-52.0); MEAN CORPUSCULAR VOLUME 98 FL (80-99); PLATELET COUNT 373 K/UL (150-450); RED BLOOD COUNT 2.41 M/UL (4.70-6.10); RED CELL DISTRIBUTION WIDTH 14.8 % (11.6-14.8); WHITE BLOOD COUNT 14.5 K/UL (4.8-10.8)
[2020-06-16 08:00] VITALS: BP 125/77
[2020-06-16 08:17] LABS: ALBUMIN 1.7 G/DL (3.4-5.0); ALBUMIN/GLOBULIN RATIO 0.3 (1.0-2.7); BILIRUBIN,TOTAL 0.3 MG/DL (0.2-1.0); CALCIUM 7.8 MG/DL (8.5-10.1); CREATININE 2.6 MG/DL (0.55-1.30); PHOSPHORUS 7.1 MG/DL (2.5-4.9); POTASSIUM 4.2 MMOL/L (3.5-5.1)
[2020-06-16] MEDS: Pantoprazole Inj IVP SCH ×2 (08:47→20:31)
[2020-06-16] MEDS: Ascorbic Acid 500mg tab ORAL SCH (08:47)
--- NOTE | 2020-06-16 10:57 | Pulmonology Progress Note ---
Subjective ROS Limited/Unobtainable: Yes Interval Events: None new; remains on vent Constitutional: Reports: no symptoms HEENT: Repors: no symptoms Respiratory: Reports: no symptoms Cardiovascular: Reports: no symptoms Gastrointestinal/Abdominal: Reports: no symptoms Genitourinary: Reports: no symptoms Allergies: Coded Allergies: No Known Allergies (Unverified , 06/13/20) Objective Last 24 Hour Vital Signs Date Time Temp Pulse Resp B/P (MAP) Pulse Ox O2 Delivery O2 Flow Rate FiO2 06/16/20 08:00 80 06/16/20 08:00 97.0 70 18 125/77 (93) 100 06/16/20 08:00 70 06/16/20 08:00 Mechanical Ventilator Mechanical Ventilator 06/16/20 06:50 66 24 80 06/16/20 04:00 Mechanical Ventilator Mechanical Ventilator 06/16/20 04:00 96.7 72 20 116/70 (85) 100 06/16/20 04:00 80 06/16/20 03:33 74 06/16/20 03:05 74 23 80 06/16/20 00:00 Mechanical Ventilator Mechanical Ventilator 06/16/20 00:00 97.5 71 20 120/73 (89) 100 06/15/20 23:29 73 06/15/20 23:15 79 22 80 06/15/20 20:00 80 06/15/20 20:00 Mechanical Ventilator Mechanical Ventilator 06/15/20 20:00 97.8 79 20 110/65 (80) 100 06/15/20 19:50 93 06/15/20 19:15 76 19 80 06/15/20 16:00 80 06/15/20 16:00 77 06/15/20 16:00 Mechanical Ventilator Mechanical Ventilator 06/15/20 16:00 96.9 81 21 100/55 (70) 100 06/15/20 15:17 77 9 80 06/15/20 12:00 96.6 66 22 118/76 (90) 100 06/15/20 12:00 66 06/15/20 11:42 80 06/15/20 11:41 Mechanical Ventilator Mechanical Ventilator 06/15/20 11:29 65 19 80 Intake and Output 06/15/20 06/16/20 19:00 07:00 Intake Total 180 ml 110 ml Output Total 475 ml 200 ml Balance -295 ml -90 ml Intake Oral 0 ml Free Water 180 ml IV Total 110 ml Output Urine Total 475 ml 200 ml # Bowel Movements 5 General Appearance: no acute distress HEENT: status post trach Respiratory: chest wall non-tender, lungs clear Cardiovascular: normal peripheral pulses, normal rate Abdomen: normal bowel sounds Extremities: no cyanosis Microbiology Date/Time Source Procedure Growth Status 06/13/20 19:15 Rectum VRE Culture - Final Enterococcus Faecium - Vre Complete 06/13/20 19:01 Nasopharynx SARS-CoV-2 RdRp Gene Assay - Final Complete 06/13/20 17:00 Urine,Clean Catch Urine Culture - Preliminary NO GROWTH AFTER 24 HOURS Resulted Laboratory Tests 06/15/20 12:02: POC Whole Blood Glucose 163H 06/15/20 18:14: POC Whole Blood Glucose 131H 06/15/20 23:36: POC Whole Blood Glucose 94 06/16/20 04:00: White Blood Count 14.5H, Red Blood Count 2.41L, Hemoglobin 7.0L, Hematocrit 23.6L, Mean Corpuscular Volume 98, Mean Corpuscular Hemoglobin 29.1, Mean Corpuscular Hemoglobin Concent 29.8L, Red Cell Distribution Width 14.8, Platelet Count 373, Mean Platelet Volume 7.7, Neutrophils (%) (Auto) , Lymphocytes (%) (Auto) , Monocytes (%) (Auto) , Eosinophils (%) (Auto) , Basophils (%) (Auto) , Differential Total Cells Counted 100, Neutrophils % (Manual) 78H, Lymphocytes % (Manual) 11L, Monocytes % (Manual) 6, Eosinophils % (Manual) 5H, Basophils % (Manual) 0, Band Neutrophils 0, Platelet Estimate Adequate, Platelet Morphology Normal, Hypochromasia 1+, Anisocytosis 1+, Sodium Level 141, Potassium Level 4.2, Chloride Level 104, Carbon Dioxide Level 32, Anion Gap 5, Blood Urea Nitrogen 58H, Creatinine 2.6H, Estimat Glomerular Filtration Rate 31.4, Glucose Level 99, Uric Acid 6.8, Calcium Level 7.8L, Phosphorus Level 7.1H, Magnesium Level 2.2, Total Bilirubin 0.3, Aspartate Amino Transf (AST/SGOT) 110H, Alanine Aminotransferase (ALT/SGPT) 148H, Alkaline Phosphatase 183H, C-Reactive Protein, Quantitative 13.2H, Pro-B-Type Natriuretic Peptide 63144T, Total Protein 7.5, Albumin 1.7L, Globulin 5.8, Albumin/Globulin Ratio 0.3L, Random Vancomycin Level 32.5 06/16/20 05:24: POC Whole Blood Glucose 110H Current Medications Medications (Trade) Dose Ordered Sig/Maryjane Route PRN Reason Start Time Stop Time Status Last Admin Dose Admin Acetaminophen (Tylenol) 650 mg Q4HR PRN GT FEVER 06/14/20 09:45 07/14/20 09:44 Ascorbic Acid (Vitamin C) 500 mg DAILY ORAL 06/16/20 09:00 07/16/20 08:59 06/16/20 08:47 Chlorhexidine Gluconate (Inés-Hex 2%) 1 applic DAILY@2000 TOPIC 06/14/20 20:00 09/12/20 19:59 06/15/20 20:00 Dextrose (Dextrose 50%) 25 ml Q30M PRN IV Hypoglycemia 06/14/20 03:45 09/12/20 03:44 Dextrose (Dextrose 50%) 50 ml Q30M PRN IV Hypoglycemia 06/14/20 03:45 09/12/20 03:44 Lidocaine HCl (Xylocaine 1% 30ml) 30 ml NOW PRN INJ Radiology Procedure 06/15/20 07:00 06/18/20 06:59 Meropenem 500 mg/ Sodium Chloride 55 ml @ 110 mls/hr EVERY 8 HOURS IVPB 06/14/20 14:00 06/19/20 13:59 06/16/20 05:26 Pantoprazole (Protonix) 40 mg EVERY 12 HOURS IVP 06/14/20 11:45 07/14/20 11:44 06/16/20 08:47 Sodium Bicarbonate (Sodium Bicarbonate 4%) 1 ml NOW PRN IV Radiology Procedure 06/15/20 07:00 06/18/20 06:59 Vancomycin HCl ([facility] pharmacy to dose) 1 ea DAILY PRN MISC Per rx protocol 06/14/20 12:15 07/14/20 12:14 Assessment/Plan Problems: (1) Acute respiratory failure Assessment/Plan IMPRESSION: 1. Chronic respiratory failure. 2. Hypoxemia. 3. Respiratory acidosis. 4. Anemia. 5. Leukocytosis. 6. DVT DISCUSSION: The patient's x-ray is markedly abnormal with bilateral infiltrates. This could represent pulmonary edema. attempts to diurese have improved oxygenation how not succeeded. I suspect he has pulmonary fibrosis No anticoagulation for DVT due to anemia Continue assist-control mechanical ventilation, broad-spectrum antibiotics. Transfusion as needed. I will follow carefully. Hugo Carl Omar Syed MD Jun 16, 2020 10:57
--- NOTE | 2020-06-16 11:02 | Infectious Diseases Prog Note ---
Assessment/Plan Assessment/Plan IMPRESSION: Pneumonia COVID19 X 1: negative Ventilator-dependent respiratory failure, Diabetes mellitus type 2, Hypertension, History of left BKA, Hypertension, anemia, Major depression, Pressure ulcer, Elevated transaminase, Hyperkalemia. Anemia R leg DVT RECOMMENDATION: Continue meropenem and vancomycin Will follow up the cultures. We will try to get more information about recent hospitalization Subjective ROS Limited/Unobtainable: Yes Constitutional: Denies: fever Allergies: Coded Allergies: No Known Allergies (Unverified , 06/13/20) Objective Last 24 Hour Vital Signs Date Time Temp Pulse Resp B/P (MAP) Pulse Ox O2 Delivery O2 Flow Rate FiO2 06/16/20 08:00 80 06/16/20 08:00 97.0 70 18 125/77 (93) 100 06/16/20 08:00 70 06/16/20 08:00 Mechanical Ventilator Mechanical Ventilator 06/16/20 06:50 66 24 80 06/16/20 04:00 Mechanical Ventilator Mechanical Ventilator 06/16/20 04:00 96.7 72 20 116/70 (85) 100 06/16/20 04:00 80 06/16/20 03:33 74 06/16/20 03:05 74 23 80 06/16/20 00:00 Mechanical Ventilator Mechanical Ventilator 06/16/20 00:00 97.5 71 20 120/73 (89) 100 06/15/20 23:29 73 06/15/20 23:15 79 22 80 06/15/20 20:00 80 06/15/20 20:00 Mechanical Ventilator Mechanical Ventilator 06/15/20 20:00 97.8 79 20 110/65 (80) 100 06/15/20 19:50 93 06/15/20 19:15 76 19 80 06/15/20 16:00 80 06/15/20 16:00 77 06/15/20 16:00 Mechanical Ventilator Mechanical Ventilator 06/15/20 16:00 96.9 81 21 100/55 (70) 100 06/15/20 15:17 77 9 80 06/15/20 12:00 96.6 66 22 118/76 (90) 100 06/15/20 12:00 66 06/15/20 11:42 80 06/15/20 11:41 Mechanical Ventilator Mechanical Ventilator 06/15/20 11:29 65 19 80 Height (Feet): 5 Height (Inches): 8.00 Weight (Pounds): 143 HEENT: status post trach Respiratory/Chest: lungs clear, other - on ventilator Cardiovascular: normal rate Abdomen: soft, non tender, other - GT feeding Extremities: other - legs edema, Left BKA Skin: ulcers Neurologic/Psychiatric: alert, responsive Microbiology Date/Time Source Procedure Growth Status 06/13/20 19:15 Rectum VRE Culture - Final Enterococcus Faecium - Vre Complete 06/13/20 19:01 Nasopharynx SARS-CoV-2 RdRp Gene Assay - Final Complete 06/13/20 17:00 Urine,Clean Catch Urine Culture - Preliminary NO GROWTH AFTER 24 HOURS Resulted Laboratory Tests Test 06/15/20 12:02 06/15/20 18:14 06/15/20 23:36 06/16/20 04:00 POC Whole Blood Glucose 163 MG/DL (74-106) H 131 MG/DL (74-106) H 94 MG/DL (74-106) White Blood Count 14.5 K/UL (4.8-10.8) H Red Blood Count 2.41 M/UL (4.70-6.10) L Hemoglobin 7.0 G/DL (14.2-18.0) L Hematocrit 23.6 % (42.0-52.0) L Mean Corpuscular Volume 98 FL (80-99) Mean Corpuscular Hemoglobin 29.1 PG (27.0-31.0) Mean Corpuscular Hemoglobin Concent 29.8 G/DL (32.0-36.0) L Red Cell Distribution Width 14.8 % (11.6-14.8) Platelet Count 373 K/UL (150-450) Mean Platelet Volume 7.7 FL (6.5-10.1) Neutrophils (%) (Auto) % (45.0-75.0) Lymphocytes (%) (Auto) % (20.0-45.0) Monocytes (%) (Auto) % (1.0-10.0) Eosinophils (%) (Auto) % (0.0-3.0) Basophils (%) (Auto) % (0.0-2.0) Differential Total Cells Counted 100 Neutrophils % (Manual) 78 % (45-75) H Lymphocytes % (Manual) 11 % (20-45) L Monocytes % (Manual) 6 % (1-10) Eosinophils % (Manual) 5 % (0-3) H Basophils % (Manual) 0 % (0-2) Band Neutrophils 0 % (0-8) Platelet Estimate Adequate Platelet Morphology Normal Hypochromasia 1+ Anisocytosis 1+ Sodium Level 141 MMOL/L (136-145) Potassium Level 4.2 MMOL/L (3.5-5.1) Chloride Level 104 MMOL/L (98-107) Carbon Dioxide Level 32 MMOL/L (21-32) Anion Gap 5 mmol/L (5-15) Blood Urea Nitrogen 58 mg/dL (7-18) H Creatinine 2.6 MG/DL (0.55-1.30) H Estimat Glomerular Filtration Rate 31.4 mL/min (>60) Glucose Level 99 MG/DL (74-106) Uric Acid 6.8 MG/DL (2.6-7.2) Calcium Level 7.8 MG/DL (8.5-10.1) L Phosphorus Level 7.1 MG/DL (2.5-4.9) H Magnesium Level 2.2 MG/DL (1.8-2.4) Total Bilirubin 0.3 MG/DL (0.2-1.0) Aspartate Amino Transf (AST/SGOT) 110 U/L (15-37) H Alanine Aminotransferase (ALT/SGPT) 148 U/L (12-78) H Alkaline Phosphatase 183 U/L (46-116) H C-Reactive Protein, Quantitative 13.2 mg/dL (0.00-0.90) H Pro-B-Type Natriuretic Peptide 97187 pg/mL (0-125) H Total Protein 7.5 G/DL (6.4-8.2) Albumin 1.7 G/DL (3.4-5.0) L Globulin 5.8 g/dL Albumin/Globulin Ratio 0.3 (1.0-2.7) L Random Vancomycin Level 32.5 ug/mL Test 06/16/20 05:24 POC Whole Blood Glucose 110 MG/DL (74-106) H Current Medications Medications (Trade) Dose Ordered Sig/Maryjane Route PRN Reason Start Time Stop Time Status Last Admin Dose Admin Acetaminophen (Tylenol) 650 mg Q4HR PRN GT FEVER 06/14/20 09:45 07/14/20 09:44 Ascorbic Acid (Vitamin C) 500 mg DAILY ORAL 06/16/20 09:00 07/16/20 08:59 06/16/20 08:47 Chlorhexidine Gluconate (Inés-Hex 2%) 1 applic DAILY@2000 TOPIC 06/14/20 20:00 09/12/20 19:59 06/15/20 20:00 Dextrose (Dextrose 50%) 25 ml Q30M PRN IV Hypoglycemia 06/14/20 03:45 09/12/20 03:44 Dextrose (Dextrose 50%) 50 ml Q30M PRN IV Hypoglycemia 06/14/20 03:45 09/12/20 03:44 Lidocaine HCl (Xylocaine 1% 30ml) 30 ml NOW PRN INJ Radiology Procedure 06/15/20 07:00 06/18/20 06:59 Meropenem 500 mg/ Sodium Chloride 55 ml @ 110 mls/hr EVERY 8 HOURS IVPB 06/14/20 14:00 06/19/20 13:59 06/16/20 05:26 Pantoprazole (Protonix) 40 mg EVERY 12 HOURS IVP 06/14/20 11:45 07/14/20 11:44 06/16/20 08:47 Sodium Bicarbonate (Sodium Bicarbonate 4%) 1 ml NOW PRN IV Radiology Procedure 06/15/20 07:00 06/18/20 06:59 [facility] 1 ea DAILY PRN MISC Per rx protocol 06/14/20 12:15 07/14/20 12:14 Paul Amador MD Jun 16, 2020 11:02
--- NOTE | 2020-06-16 11:38 | NUR ---
Unable to collect sputum despite multiple attempts per RT (pt is not producing sputum at this time).
[2020-06-16 12:00] VITALS: BP 121/70
--- NOTE | 2020-06-16 13:59 | Nephrology Progress Note ---
Assessment/Plan Problem List: (1) KERRI (acute kidney injury) (2) Acute respiratory failure (3) Chronic respiratory failure (4) Anemia (5) Hyperkalemia Assessment Acute on chronic renal failure Anemia Respiratory failure acute on chronic Respiratory acidosis and hypoxia Hyperkalemia Plan June 16: Labs reviewed. Serum creatinine mariana to 2.6. Abnormal electrolytes now normalized. Continue to monitor renal parameters and avoid nephrotoxic's. Continue to adjust pulmonary status as possible. June 15: ABG pH of 7.1. 2D echo suggestive of ejection fraction of 50%. Labs reviewed. Serum creatinine mariana. Will hold IV Lasix. Will give Kayexalate for high potassium and 1 amp of sodium bicarb. Albumin IV bolus given. Continue per consultants. Continue to monitor renal parameters. Kidney ultrasound ordered. June 14: As follow Pulmonary evaluation Sparrow catheter Hold IV fluid IV fluid, until 2D echo results available Kayexalate for high potassium IV Protonix 2D echocardiogram Anemia work-up More labs ordered Subjective ROS Limited/Unobtainable: Yes Objective Objective Last 24 Hour Vital Signs Date Time Temp Pulse Resp B/P (MAP) Pulse Ox O2 Delivery O2 Flow Rate FiO2 06/16/20 12:00 96.8 68 13 121/70 (87) 100 06/16/20 12:00 Mechanical Ventilator Mechanical Ventilator 06/16/20 12:00 67 06/16/20 12:00 80 06/16/20 11:06 68 18 80 06/16/20 08:00 80 06/16/20 08:00 97.0 70 18 125/77 (93) 100 06/16/20 08:00 70 06/16/20 08:00 Mechanical Ventilator Mechanical Ventilator 06/16/20 06:50 66 24 80 06/16/20 04:00 Mechanical Ventilator Mechanical Ventilator 06/16/20 04:00 96.7 72 20 116/70 (85) 100 06/16/20 04:00 80 06/16/20 03:33 74 06/16/20 03:05 74 23 80 06/16/20 00:00 Mechanical Ventilator Mechanical Ventilator 06/16/20 00:00 97.5 71 20 120/73 (89) 100 06/15/20 23:29 73 06/15/20 23:15 79 22 80 06/15/20 20:00 80 06/15/20 20:00 Mechanical Ventilator Mechanical Ventilator 11/8/20 20:00 97.8 79 20 110/65 (80) 100 06/15/20 19:50 93 06/15/20 19:15 76 19 80 06/15/20 16:00 80 06/15/20 16:00 77 06/15/20 16:00 Mechanical Ventilator Mechanical Ventilator 06/15/20 16:00 96.9 81 21 100/55 (70) 100 06/15/20 15:17 77 9 80 Intake and Output 06/15/20 06/16/20 19:00 07:00 Intake Total 180 ml 110 ml Output Total 475 ml 200 ml Balance -295 ml -90 ml Intake Oral 0 ml Free Water 180 ml IV Total 110 ml Output Urine Total 475 ml 200 ml # Bowel Movements 5 Laboratory Tests 06/15/20 18:14: POC Whole Blood Glucose 131H 06/15/20 23:36: POC Whole Blood Glucose 94 06/16/20 04:00: White Blood Count 14.5H, Red Blood Count 2.41L, Hemoglobin 7.0L, Hematocrit 23.6L, Mean Corpuscular Volume 98, Mean Corpuscular Hemoglobin 29.1, Mean Corpuscular Hemoglobin Concent 29.8L, Red Cell Distribution Width 14.8, Platelet Count 373, Mean Platelet Volume 7.7, Neutrophils (%) (Auto) , Lymphocytes (%) (Auto) , Monocytes (%) (Auto) , Eosinophils (%) (Auto) , Basophils (%) (Auto) , Differential Total Cells Counted 100, Neutrophils % (Manual) 78H, Lymphocytes % (Manual) 11L, Monocytes % (Manual) 6, Eosinophils % (Manual) 5H, Basophils % (Ma nual) 0, Band Neutrophils 0, Platelet Estimate Adequate, Platelet Morphology Normal, Hypochromasia 1+, Anisocytosis 1+, Sodium Level 141, Potassium Level 4.2, Chloride Level 104, Carbon Dioxide Level 32, Anion Gap 5, Blood Urea Nitrogen 58H, Creatinine 2.6H, Estimat Glomerular Filtration Rate 31.4, Glucose Level 99, Uric Acid 6.8, Calcium Level 7.8L, Phosphorus Level 7.1H, Magnesium Level 2.2, Total Bilirubin 0.3, Aspartate Amino Transf (AST/SGOT) 110H, Alanine Aminotransferase (ALT/SGPT) 148H, Alkaline Phosphatase 183H, C-Reactive Protein, Quantitative 13.2H, Pro-B-Type Natriuretic Peptide 23038A, Total Protein 7.5, Albumin 1.7L, Globulin 5.8, Albumin/Globulin Ratio 0.3L, Random Vancomycin Level 32.5 06/16/20 05:24: POC Whole Blood Glucose 110H Height (Feet): 5 Height (Inches): 8.00 Weight (Pounds): 143 General Appearance: no apparent distress EENT: other - Trach to vent Cardiovascular: normal rate Respiratory/Chest: decreased breath sounds Abdomen: distended Leonidas Honeycutt MD Jun 16, 2020 13:59
--- NOTE | 2020-06-16 14:51 | Cardiac Electrophysiology PN ---
Assessment/Plan Assessment/Plan 1. Respiratory failure in this patient with vent-dependent respiratory failure. The patient's chest x-ray is suspicious for extensive bilateral pneumonia or ARDS. His creatinine is 2.6. EF 50%. Ruled out for NH. BNP 44848. On iv Abx 2. Tachycardia, likely due to respiratory failure. 3. Ventilator-dependent respiratory failure, status post tracheostomy. 4. Dysphagia, status post PEG placement. 5. Renal failure. Further evaluation by Dr. Honeycutt. 6. Right femoral vein DVT. IVC filter today pending DW RN Subjective Subjective On the Vent in isolation awaiting PCR result. On 80% Fio2 and PEEP . IVC filter pending Objective Last 24 Hour Vital Signs Date Time Temp Pulse Resp B/P (MAP) Pulse Ox O2 Delivery O2 Flow Rate FiO2 06/16/20 12:00 96.8 68 13 121/70 (87) 100 06/16/20 12:00 Mechanical Ventilator Mechanical Ventilator 06/16/20 12:00 67 06/16/20 12:00 80 06/16/20 11:06 68 18 80 06/16/20 08:00 80 06/16/20 08:00 97.0 70 18 125/77 (93) 100 06/16/20 08:00 70 06/16/20 08:00 Mechanical Ventilator Mechanical Ventilator 06/16/20 06:50 66 24 80 06/16/20 04:00 Mechanical Ventilator Mechanical Ventilator 06/16/20 04:00 96.7 72 20 116/70 (85) 100 06/16/20 04:00 80 06/16/20 03:33 74 06/16/20 03:05 74 23 80 06/16/20 00:00 Mechanical Ventilator Mechanical Ventilator 06/16/20 00:00 97.5 71 20 120/73 (89) 100 06/15/20 23:29 73 06/15/20 23:15 79 22 80 06/15/20 20:00 80 06/15/20 20:00 Mechanical Ventilator Mechanical Ventilator 06/15/20 20:00 97.8 79 20 110/65 (80) 100 06/15/20 19:50 93 06/15/20 19:15 76 19 80 06/15/20 16:00 80 06/15/20 16:00 77 06/15/20 16:00 Mechanical Ventilator Mechanical Ventilator 06/15/20 16:00 96.9 81 21 100/55 (70) 100 06/15/20 15:17 77 9 80 Intake and Output 06/15/20 06/16/20 19:00 07:00 Intake Total 180 ml 110 ml Output Total 475 ml 200 ml Balance -295 ml -90 ml Intake Oral 0 ml Free Water 180 ml IV Total 110 ml Output Urine Total 475 ml 200 ml # Bowel Movements 5 Laboratory Tests Test 06/15/20 18:14 06/15/20 23:36 06/16/20 04:00 06/16/20 05:24 POC Whole Blood Glucose 131 MG/DL (74-106) H 94 MG/DL (74-106) 110 MG/DL (74-106) H White Blood Count 14.5 K/UL (4.8-10.8) H Red Blood Count 2.41 M/UL (4.70-6.10) L Hemoglobin 7.0 G/DL (14.2-18.0) L Hematocrit 23.6 % (42.0-52.0) L Mean Corpuscular Volume 98 FL (80-99) Mean Corpuscular Hemoglobin 29.1 PG (27.0-31.0) Mean Corpuscular Hemoglobin Concent 29.8 G/DL (32.0-36.0) L Red Cell Distribution Width 14.8 % (11.6-14.8) Platelet Count 373 K/UL (150-450) Mean Platelet Volume 7.7 FL (6.5-10.1) Neutrophils (%) (Auto) % (45.0-75.0) Lymphocytes (%) (Auto) % (20.0-45.0) Monocytes (%) (Auto) % (1.0-10.0) Eosinophils (%) (Auto) % (0.0-3.0) Basophils (%) (Auto) % (0.0-2.0) Differential Total Cells Counted 100 Neutrophils % (Manual) 78 % (45-75) H Lymphocytes % (Manual) 11 % (20-45) L Monocytes % (Manual) 6 % (1-10) Eosinophils % (Manual) 5 % (0-3) H Basophils % (Manual) 0 % (0-2) Band Neutrophils 0 % (0-8) Platelet Estimate Adequate Platelet Morphology Normal Hypochromasia 1+ Anisocytosis 1+ Sodium Level 141 MMOL/L (136-145) Potassium Level 4.2 MMOL/L (3.5-5.1) Chloride Level 104 MMOL/L (98-107) Carbon Dioxide Level 32 MMOL/L (21-32) Anion Gap 5 mmol/L (5-15) Blood Urea Nitrogen 58 mg/dL (7-18) H Creatinine 2.6 MG/DL (0.55-1.30) H Estimat Glomerular Filtration Rate 31.4 mL/min (>60) Glucose Level 99 MG/DL (74-106) Uric Acid 6.8 MG/DL (2.6-7.2) Calcium Level 7.8 MG/DL (8.5-10.1) L Phosphorus Level 7.1 MG/DL (2.5-4.9) H Magnesium Level 2.2 MG/DL (1.8-2.4) Total Bilirubin 0.3 MG/DL (0.2-1.0) Aspartate Amino Transf (AST/SGOT) 110 U/L (15-37) H Alanine Aminotransferase (ALT/SGPT) 148 U/L (12-78) H Alkaline Phosphatase 183 U/L (46-116) H C-Reactive Protein, Quantitative 13.2 mg/dL (0.00-0.90) H Pro-B-Type Natriuretic Peptide 79860 pg/mL (0-125) H Total Protein 7.5 G/DL (6.4-8.2) Albumin 1.7 G/DL (3.4-5.0) L Globulin 5.8 g/dL Albumin/Globulin Ratio 0.3 (1.0-2.7) L Random Vancomycin Level 32.5 ug/mL Microbiology Date/Time Source Procedure Growth Status 06/13/20 19:15 Rectum VRE Culture - Final Enterococcus Faecium - Vre Complete 06/13/20 19:15 Nasal Nares MRSA Culture - Final NO METHICILLIN RESISTANT STAPH AUREUS... Complete 06/13/20 19:01 Nasopharynx SARS-CoV-2 RdRp Gene Assay - Final Complete 06/13/20 17:00 Urine,Clean Catch Urine Culture - Preliminary NO GROWTH AFTER 24 HOURS Resulted Objective HEAD AND NECK: Status post tracheostomy. LUNGS: Coarse rhonchi and basilar rales. CARDIOVASCULAR: Shows irregular S1 and S2 with no gallop. ABDOMEN: Soft. Status post G-tube. EXTREMITIES: No pitting edema. Lance Mcguire MD Jun 16, 2020 14:51
[2020-06-16 16:00] VITALS: BP 115/71
--- NOTE | 2020-06-16 17:03 | Surgery Progress Note ---
Surgery Progress Note Subjective Additional Comments leukocytosis anemia elevated lft's Objective Last 24 Hour Vital Signs Date Time Temp Pulse Resp B/P (MAP) Pulse Ox O2 Delivery O2 Flow Rate FiO2 06/16/20 16:00 96.9 70 17 115/71 (86) 100 06/16/20 16:00 Mechanical Ventilator Mechanical Ventilator 06/16/20 16:00 68 06/16/20 16:00 80 06/16/20 14:40 72 17 80 06/16/20 12:00 96.8 68 13 121/70 (87) 100 06/16/20 12:00 Mechanical Ventilator Mechanical Ventilator 06/16/20 12:00 67 06/16/20 12:00 80 06/16/20 11:06 68 18 80 06/16/20 08:00 80 06/16/20 08:00 97.0 70 18 125/77 (93) 100 06/16/20 08:00 70 06/16/20 08:00 Mechanical Ventilator Mechanical Ventilator 06/16/20 06:50 66 24 80 06/16/20 04:00 Mechanical Ventilator Mechanical Ventilator 06/16/20 04:00 96.7 72 20 116/70 (85) 100 06/16/20 04:00 80 06/16/20 03:33 74 06/16/20 03:05 74 23 80 06/16/20 00:00 Mechanical Ventilator Mechanical Ventilator 06/16/20 00:00 97.5 71 20 120/73 (89) 100 06/15/20 23:29 73 06/15/20 23:15 79 22 80 06/15/20 20:00 80 06/15/20 20:00 Mechanical Ventilator Mechanical Ventilator 06/15/20 20:00 97.8 79 20 110/65 (80) 100 06/15/20 19:50 93 06/15/20 19:15 76 19 80 I&O Intake and Output 06/15/20 06/16/20 19:00 07:00 Intake Total 180 ml 110 ml Output Total 475 ml 200 ml Balance -295 ml -90 ml Intake Oral 0 ml Free Water 180 ml IV Total 110 ml Output Urine Total 475 ml 200 ml # Bowel Movements 5 Dressing: saturated Cardiovascular: RSR Respiratory: decreased breath sounds Abdomen: soft, flat, non-tender, present bowel sounds Extremities: no edema, no tenderness, no cyanosis, other Laboratory Tests Test 06/15/20 18:14 06/15/20 23:36 06/16/20 04:00 06/16/20 05:24 POC Whole Blood Glucose 131 MG/DL (74-106) H 94 MG/DL (74-106) 110 MG/DL (74-106) H White Blood Count 14.5 K/UL (4.8-10.8) H Red Blood Count 2.41 M/UL (4.70-6.10) L Hemoglobin 7.0 G/DL (14.2-18.0) L Hematocrit 23.6 % (42.0-52.0) L Mean Corpuscular Volume 98 FL (80-99) Mean Corpuscular Hemoglobin 29.1 PG (27.0-31.0) Mean Corpuscular Hemoglobin Concent 29.8 G/DL (32.0-36.0) L Red Cell Distribution Width 14.8 % (11.6-14.8) Platelet Count 373 K/UL (150-450) Mean Platelet Volume 7.7 FL (6.5-10.1) Neutrophils (%) (Auto) % (45.0-75.0) Lymphocytes (%) (Auto) % (20.0-45.0) Monocytes (%) (Auto) % (1.0-10.0) Eosinophils (%) (Auto) % (0.0-3.0) Basophils (%) (Auto) % (0.0-2.0) Differential Total Cells Counted 100 Neutrophils % (Manual) 78 % (45-75) H Lymphocytes % (Manual) 11 % (20-45) L Monocytes % (Manual) 6 % (1-10) Eosinophils % (Manual) 5 % (0-3) H Basophils % (Manual) 0 % (0-2) Band Neutrophils 0 % (0-8) Platelet Estimate Adequate Platelet Morphology Normal Hypochromasia 1+ Anisocytosis 1+ Sodium Level 141 MMOL/L (136-145) Potassium Level 4.2 MMOL/L (3.5-5.1) Chloride Level 104 MMOL/L (98-107) Carbon Dioxide Level 32 MMOL/L (21-32) Anion Gap 5 mmol/L (5-15) Blood Urea Nitrogen 58 mg/dL (7-18) H Creatinine 2.6 MG/DL (0.55-1.30) H Estimat Glomerular Filtration Rate 31.4 mL/min (>60) Glucose Level 99 MG/DL (74-106) Uric Acid 6.8 MG/DL (2.6-7.2) Calcium Level 7.8 MG/DL (8.5-10.1) L Phosphorus Level 7.1 MG/DL (2.5-4.9) H Magnesium Level 2.2 MG/DL (1.8-2.4) Total Bilirubin 0.3 MG/DL (0.2-1.0) Aspartate Amino Transf (AST/SGOT) 110 U/L (15-37) H Alanine Aminotransferase (ALT/SGPT) 148 U/L (12-78) H Alkaline Phosphatase 183 U/L (46-116) H C-Reactive Protein, Quantitative 13.2 mg/dL (0.00-0.90) H Pro-B-Type Natriuretic Peptide 41402 pg/mL (0-125) H Total Protein 7.5 G/DL (6.4-8.2) Albumin 1.7 G/DL (3.4-5.0) L Globulin 5.8 g/dL Albumin/Globulin Ratio 0.3 (1.0-2.7) L Random Vancomycin Level 32.5 ug/mL Plan Problems: (1) Leukocytosis Assessment & Plan: 54-year-old male multiple comorbidities admitted for abnormal chest x-ray potentially pneumonia leukocytosis abnormal labs. Patient identified to have a prior left BKA surgical sutures still in place as well as a surgical sacral wound with sutures in place. Considerations of dehiscence being identified and potential etiology of infection. After evaluation unlikely source of infection though the sacral wound was looked to be dehiscing at the inferior aspect. No acute surgical mention at this time We will discussed care plan with PCP Recommend follow-up with initial surgeon considerations of removal of surgical sutures Care plan initiated (2) Surgical wound dehiscence Assessment & Plan: Patient identified to have a left BKA surgical sutures in place flap looks like it is taken well no signs of infection at this time no signs of seroma hematoma or drainage. Unknown exact length or duration of potential prior left BKA and until then recommend leaving sutures in place as it may be too early though it does look well-healed. If able to obtain prior records we will be happy to remove sutures otherwise will need follow-up with primary surgeon furthermore patient identified to have a surgical wound in the sacral area seems he probably potentially had a stage IV sacral decubitus ulcer that had debridement and primary closure. Fortunately. Sutures are still in place and it looks like the inferior aspect may be slowly dehiscing. There is no significant drainage no foul odor no signs of active infection unknown if bone was palpable prior. Can consider removing surgical sutures but again would recommend obtaining prior records of possible prior to doing so. Also recommend following up with primary surgeon as this may need ongoing continued care. Will follow with recommendations and as information is available. Continue current care plan. Wash wounds daily with normal saline. Apply skin protectant Optifoam dressing. Turn every 2 hours. Offload pressure with pillows and air mattress. Nutritional optimization. (3) History of left below knee amputation (4) Malnutrition Assessment & Plan: DAILY ESTIMATED NEEDS: Needs based on Wound, critical care, underweight/ 55.5kg 25-33 kcals/kg 4219-6387 total kcals 1.25-2 g protein/kg 69-111 g total protein 25-30 mL/kg 9067-3073 total fluid mLs NUTRITION DIAGNOSIS: * Swallowing difficulty R/T respiratory status as evidenced by pt is trach/vent dep, PEG dep, NPO at this time. CURRENT TF:NPO ENTERAL NUTRITION RECOMMENDATIONS: Nepro @ 40ml/hr x 24 hrs to provide 960ml, 1728kcal, 78g prot, 698ml free water * Rec to continue [employer] TF of Nepro (K 5.8, 5.0) * Rec goal rate of 40ml/hr x 24 hrs * HOB over 30 degrees/ water flush per MD ADDITIONAL RECOMMENDATIONS: * Per SNF: HT=69" KM=867bpw -> rec daily calibrated bedscale wt * Monitor lytes: elev K * Wound healing: f/up w/ WC eval add Vit C 500mg QD, Av BID via PEG (5) Anemia (6) KERRI (acute kidney injury) (7) Acute respiratory failure (8) Hyperkalemia (9) Anemia (10) Abnormal laboratory test result Azar Mares Jun 16, 2020 17:03
--- NOTE | 2020-06-16 17:06 | NUR ---
CLINICALS (06/13-06/16) FAXED TO [facility] CM: [facility] #[phone] ext [phone] fax#[phone]
--- NOTE | 2020-06-16 17:19 | NUR ---
NURSE NOTES:WOUND ASSESSMENT PATIENT WITH TRACH TO VENTILATOR. AWAKE AND ALERT BUT UNABLE TO ASSIST WITH REPOSITIONING SACRUM - SURGICAL INCISION MEASURES 8.4X0.2X1.5CM. 7 SUTURES INTACT WITH NOTED DEHISCENCE AT DISTAL END. SMALL AMOUNT SERO-SANGUINEOUS DRAINAGE. RECOMMEND- CLEAN WITH SALINE MOISTENED GAUZE. PAT DRY AND COVER WITH DRY DRESSING/OPTIFOAM. REPLACE DAILY. LEFT BELOW KNEE AMPUTATION- SURGICAL INCISION CLEAN AND DRY WITH SUTURES IN PLACE. NO DRESSING REQUIRED. RECOMMEND: WOUND PREVENTION PROTOCOLS REPOSITION AT LEAST EVERY 2 HOURS OR TOLERATED ELEVATE HEEL WITH PILLOW. MONIKA MATTRESS OVERLAY- ALREADY IN PLACE.
--- NOTE | 2020-06-16 19:04 | NUR ---
NURSE HAND-OFF REPORT: Important Events on Shift: Pt is pending IVCF (spoke with IR dept - will see pt once covid results are back). Hgb noted 7.0 today (Goal is 7 and above - transfuse PRN - discussed with Dr Tan). Patient Status: stable Diet: Tube feeding - Nepro at 40 cc/hr Pending Orders: sputum culture to be collected (multiple failed attempts per RT today). Pending Results/Labs: n/a Pending MD notification:n/a Latest Vital Signs: Temperature 96.9 , Pulse 70 , B/P 115 /71 , Respiratory Rate 17 , O2 SAT 100 , Mechanical Ventilator, FiO2 80%. EKG Rhythm: Sinus Rhythm Rhythm change?: N MD Notified?: n/a MD Response: n/a Latest Santiago Fall Score: 35 Fall Risk: Medium Risk Safety Measures: Call light Within Reach, Bed Alarm Zone 2, Side Rails Side Rails x3, Bed position Low and Locked. Fall Precautions: Yellow Socks Yellow Gown Door Sign Patient Fall Education Report given to MAX Jones.
--- NOTE | 2020-06-16 19:05 | NUR ---
NURSE NOTES: Report received from MAX Reeves. Pt awake, alert, vent dependent. A/Ox3. Saturating 100% on vent settings of A/C 16 Vt 500. 5-lead EKG shows SR at 70 bpm. Vitals WNL. Afebrile. Pt on g-tube running Nepro at 40mL with 0 residual noted. Sparrow draining well to gravity. Made aware of plan of care for IVC balloon pending COVID results. Bed in lowest and locked position. Bed alarm on. Will continue monitoring.
[2020-06-16 20:00] VITALS: BP 106/64
[2020-06-16] MEDS: Dyna-Hex 2% Top Sol 2oz TOPIC SCH (20:31)
--- NOTE | 2020-06-16 20:55 | General Progress Note ---
Subjective ROS Limited/Unobtainable: Yes Allergies: Coded Allergies: No Known Allergies (Unverified , 06/13/20) Objective Last 24 Hour Vital Signs Date Time Temp Pulse Resp B/P (MAP) Pulse Ox O2 Delivery O2 Flow Rate FiO2 06/16/20 19:57 70 20 80 06/16/20 16:00 96.9 70 17 115/71 (86) 100 06/16/20 16:00 Mechanical Ventilator Mechanical Ventilator 06/16/20 16:00 68 06/16/20 16:00 80 06/16/20 14:40 72 17 80 06/16/20 12:00 96.8 68 13 121/70 (87) 100 06/16/20 12:00 Mechanical Ventilator Mechanical Ventilator 06/16/20 12:00 67 06/16/20 12:00 80 06/16/20 11:06 68 18 80 06/16/20 08:00 80 06/16/20 08:00 97.0 70 18 125/77 (93) 100 06/16/20 08:00 70 06/16/20 08:00 Mechanical Ventilator Mechanical Ventilator 06/16/20 06:50 66 24 80 06/16/20 04:00 Mechanical Ventilator Mechanical Ventilator 06/16/20 04:00 96.7 72 20 116/70 (85) 100 06/16/20 04:00 80 06/16/20 03:33 74 06/16/20 03:05 74 23 80 06/16/20 00:00 Mechanical Ventilator Mechanical Ventilator 06/16/20 00:00 97.5 71 20 120/73 (89) 100 06/15/20 23:29 73 06/15/20 23:15 79 22 80 Intake and Output 06/15/20 06/16/20 19:00 07:00 Intake Total 180 ml 110 ml Output Total 475 ml 200 ml Balance -295 ml -90 ml Intake Oral 0 ml Free Water 180 ml IV Total 110 ml Output Urine Total 475 ml 200 ml # Bowel Movements 5 Laboratory Tests 06/15/20 23:36: POC Whole Blood Glucose 94 06/16/20 04:00: White Blood Count 14.5H, Red Blood Count 2.41L, Hemoglobin 7.0L, Hematocrit 23.6L, Mean Corpuscular Volume 98, Mean Corpuscular Hemoglobin 29.1, Mean Corpuscular Hemoglobin Concent 29.8L, Red Cell Distribution Width 14.8, Platelet Count 373, Mean Platelet Volume 7.7, Neutrophils (%) (Auto) , Lymphocytes (%) (Auto) , Monocytes (%) (Auto) , Eosinophils (%) (Auto) , Basophils (%) (Auto) , Differential Total Cells Counted 100, Neutrophils % (Manual) 78H, Lymphocytes % (Manual) 11L, Monocytes % (Manual) 6, Eosinophils % (Manual) 5H, Basophils % (Manual) 0, Band Neutrophils 0, Platelet Estimate Adequate, Platelet Morphology Normal, Hypochromasia 1+, Anisocytosis 1+, Sodium Level 141, Potassium Level 4.2, Chloride Level 104, Carbon Dioxide Level 32, Anion Gap 5, Blood Urea Nitrogen 58H, Creatinine 2.6H, Estimat Glomerular Filtration Rate 31.4, Glucose Level 99, Uric Acid 6.8, Calcium Level 7.8L, Phosphorus Level 7.1H, Magnesium Level 2.2, Total Bilirubin 0.3, Aspartate Amino Transf (AST/SGOT) 110H, Alanine Aminotransferase (ALT/SGPT) 148H, Alkaline Phosphatase 183H, C-Reactive Protein, Quantitative 13.2H, Pro-B-Type Natriuretic Peptide 66324J, Total Protein 7.5, Albumin 1.7L, Globulin 5.8, Albumin/Globulin Ratio 0.3L, Random Vancomycin Level 32.5 06/16/20 05:24: POC Whole Blood Glucose 110H Height (Feet): 5 Height (Inches): 8.00 Weight (Pounds): 143 Assessment/Plan Problem List: (1) Anemia ICD Codes: D64.9 - Anemia, unspecified SNOMED: 650595014 (2) KERRI (acute kidney injury) ICD Codes: N17.9 - Acute kidney failure, unspecified SNOMED: 3839150, 90652256 (3) Acute respiratory failure ICD Codes: J96.00 - Acute respiratory failure, unspecified whether with hypoxia or hypercapnia SNOMED: 59594575 Qualifiers: Qualified Codes: J96.02 - Acute respiratory failure with hypercapnia (4) Hyperkalemia ICD Codes: E87.5 - Hyperkalemia SNOMED: 56974283 (5) Abnormal laboratory test result ICD Codes: R89.9 - Unspecified abnormal finding in specimens from other organs, systems and tissues SNOMED: 969053045 (6) Anemia ICD Codes: D64.9 - Anemia, unspecified SNOMED: 955948119 Status: progressing Assessment/Plan: no bleeding reviewed chart and labs no fever resp acidosis improving pulm edema arf improving trach and peg Neida Apple MD Jun 16, 2020 20:55
--- NOTE | 2020-06-16 21:00 | NUR ---
NURSE NOTES: Sputum culture collected and sent to lab.
[2020-06-17] VITALS: BP 123/69
[2020-06-17 04:00] VITALS: BP 110/69
[2020-06-17] MEDS: Meropenem 500 MG in NS 55 ML IVPB SCH ×3 (05:38→22:22)
[2020-06-17 06:19] LABS: ALBUMIN 1.6 G/DL (3.4-5.0); ALBUMIN/GLOBULIN RATIO 0.3 (1.0-2.7); BILIRUBIN,TOTAL 0.4 MG/DL (0.2-1.0); CALCIUM 7.7 MG/DL (8.5-10.1); POTASSIUM 3.8 MMOL/L (3.5-5.1)
--- NOTE | 2020-06-17 06:36 | Hematology/Onc Progress Note ---
Assessment/Plan Assessment/Plan ASSESSMENT AND PLAN: #. Anemia that is likely due to chronic disease, r/o gi bleeding --> anemia panel has been reviewed, ferritin is >2000 --> no e/o hemolysis is noted --> transfuse on prn basis --> blood consent has been signed --> hgb 7.4-->7.4-->7 --> folic acid is wnl # Acute DVT in the distal right common femoral vein and profunda femoris vein. --> DUPLEX . Acute DVT in the distal right common femoral vein and profunda femoris vein. 2. No evidence of left lower extremity DVT. --> cannot anticoagulate at this time --> will order for ivc filter placement # Leukocytosis is likely due to b/l infiltrates --> on abx as per id -> ABX yolis/vanc --> continue trend --> wbc 15 # Respiratory failure in this patient with vent-dependent respiratory failure. T --> cxr with pna/chf --> diuresis prn # Tachycardia, likely due to respiratory failure. # Left bka # Ventilator-dependent respiratory failure, status post tracheostomy. # Dysphagia, status post PEG placement. # Renal failure. Further evaluation by Dr. Honeycutt. # Hyperkalemia and kayxelate as needed. # Dvt ppx scds Appreciate consultation and dw RN Subjective Constitutional: Denies: no symptoms, chills, fever, malaise, weakness, other HEENT: Denies: no symptoms, eye pain, blurred vision, tearing, double vision, ear pain, ear discharge, nose pain, nose congestion, throat pain, throat swelling, mouth pain, mouth swelling, other Respiratory: Denies: no symptoms, cough, shortness of breath, SOB with excertion, SOB at rest, sputum, wheezing, other Gastrointestinal/Abdominal: Denies: no symptoms, abdomen distended, abdominal pain, black stools, tarry stools, blood in stool, constipated, diarrhea, difficulty swallowing, nausea, poor appetite, poor fluid intake, rectal bleeding, vomiting, other Genitourinary: Denies: no symptoms, burning, discharge, frequency, flank pain, hematuria, incontinence, pain, urgency, other Neurologic/Psychiatric: Denies: no symptoms, anxiety, depressed, emotional problems, headache, numbness, paresthesia, pre-existing deficit, seizure, tingling, tremors, weakness, other Endocrine: Denies: no symptoms, excessive sweating, flushing, intolerance to cold, intolerance to heat, increased hunger, increased thirst, increased urine, unexplained weight gain, unexplained weight loss, other Hematologic/Lymphatic: Denies: no symptoms, anemia, easy bleeding, easy bruising, adenopathy, other Allergies: Coded Allergies: No Known Allergies (Unverified , 06/13/20) Subjective 06/16 meds noted, labs reviewed, vent to trach, for ivc filter potentially 06/17 labs noted, meds reviewed, for ivc filter once covid neg Objective Objective Current Medications Medications (Trade) Dose Ordered Sig/Maryjane Route PRN Reason Start Time Stop Time Status Last Admin Dose Admin Acetaminophen (Tylenol) 650 mg Q4HR PRN GT FEVER 06/14/20 09:45 07/14/20 09:44 Ascorbic Acid (Vitamin C) 500 mg DAILY ORAL 06/16/20 09:00 07/16/20 08:59 06/16/20 08:47 Chlorhexidine Gluconate (Inés-Hex 2%) 1 applic DAILY@2000 TOPIC 06/14/20 20:00 09/12/20 19:59 06/16/20 20:31 Dextrose (Dextrose 50%) 25 ml Q30M PRN IV Hypoglycemia 06/14/20 03:45 09/12/20 03:44 Dextrose (Dextrose 50%) 50 ml Q30M PRN IV Hypoglycemia 06/14/20 03:45 09/12/20 03:44 Lidocaine HCl (Xylocaine 1% 30ml) 30 ml NOW PRN INJ Radiology Procedure 06/15/20 07:00 06/18/20 06:59 Meropenem 500 mg/ Sodium Chloride 55 ml @ 110 mls/hr EVERY 8 HOURS IVPB 06/14/20 14:00 06/19/20 13:59 06/17/20 05:38 Pantoprazole (Protonix) 40 mg EVERY 12 HOURS IVP 06/14/20 11:45 07/14/20 11:44 06/16/20 20:31 Sodium Bicarbonate (Sodium Bicarbonate 4%) 1 ml NOW PRN IV Radiology Procedure 06/15/20 07:00 06/18/20 06:59 Vancomycin HCl ([facility] pharmacy to dose) 1 ea DAILY PRN MISC Per rx protocol 06/14/20 12:15 07/14/20 12:14 Last 24 Hour Vital Signs Date Time Temp Pulse Resp B/P (MAP) Pulse Ox O2 Delivery O2 Flow Rate FiO2 06/17/20 04:00 80 06/17/20 04:00 Mechanical Ventilator Mechanical Ventilator 06/17/20 04:00 98.0 64 18 110/69 (83) 100 06/17/20 04:00 63 06/17/20 03:11 65 21 80 06/17/20 00:00 68 06/17/20 00:00 98.1 70 20 123/69 (87) 100 06/17/20 00:00 Mechanical Ventilator Mechanical Ventilator 06/16/20 22:42 70 21 80 06/16/20 20:00 69 06/16/20 20:00 Mechanical Ventilator Mechanical Ventilator 06/16/20 20:00 97.9 71 14 106/64 (78) 100 06/16/20 20:00 80 06/16/20 19:57 70 20 80 06/16/20 16:00 96.9 70 17 115/71 (86) 100 06/16/20 16:00 Mechanical Ventilator Mechanical Ventilator 06/16/20 16:00 68 06/16/20 16:00 80 06/16/20 14:40 72 17 80 06/16/20 12:00 96.8 68 13 121/70 (87) 100 06/16/20 12:00 Mechanical Ventilator Mechanical Ventilator 06/16/20 12:00 67 06/16/20 12:00 80 06/16/20 11:06 68 18 80 06/16/20 08:00 80 06/16/20 08:00 97.0 70 18 125/77 (93) 100 06/16/20 08:00 70 06/16/20 08:00 Mechanical Ventilator Mechanical Ventilator 06/16/20 06:50 66 24 80 06/16/20 04:00 Mechanical Ventilator Mechanical Ventilator 06/16/20 04:00 96.7 72 20 116/70 (85) 100 06/16/20 04:00 80 06/16/20 03:33 74 06/16/20 03:05 74 23 80 06/16/20 00:00 Mechanical Ventilator Mechanical Ventilator 06/16/20 00:00 97.5 71 20 120/73 (89) 100 06/15/20 23:29 73 06/15/20 23:15 79 22 80 06/15/20 20:00 80 06/15/20 20:00 Mechanical Ventilator Mechanical Ventilator 06/15/20 20:00 97.8 79 20 110/65 (80) 100 06/15/20 19:50 93 06/15/20 19:15 76 19 80 06/15/20 16:00 80 06/15/20 16:00 77 06/15/20 16:00 Mechanical Ventilator Mechanical Ventilator 06/15/20 16:00 96.9 81 21 100/55 (70) 100 06/15/20 15:17 77 9 80 06/15/20 12:00 96.6 66 22 118/76 (90) 100 06/15/20 12:00 66 06/15/20 11:42 80 06/15/20 11:41 Mechanical Ventilator Mechanical Ventilator 06/15/20 11:29 65 19 80 06/15/20 09:10 80 06/15/20 08:40 87 06/15/20 08:00 Mechanical Ventilator Mechanical Ventilator 06/15/20 08:00 96.9 61 16 114/60 (78) 100 06/15/20 08:00 60 06/15/20 07:29 59 21 60 Intake and Output 06/16/20 06/17/20 19:00 07:00 Intake Total 345 ml 310 ml Output Total 200 ml Balance 145 ml 310 ml Free Water 30 ml 40 ml IV Total 55 ml 110 ml Tube Feeding 260 ml 160 ml Output Urine Total 200 ml # Bowel Movements 1 Labs Test 06/14/20 10:15 06/14/20 10:58 06/14/20 12:44 06/14/20 18:48 Phosphorus Level 4.4 MG/DL (2.5-4.9) Magnesium Level 2.2 MG/DL (1.8-2.4) Iron Level 15 ug/dL (50-175) Total Iron Binding Capacity 101 ug/dL (250-450) Percent Iron Saturation 15 % (15-50) Unsaturated Iron Binding 86 ug/dL (112-346) Ferritin > 2000 NG/ML (8-388) Troponin I 0.000 ng/mL (0.000-0.056) Vitamin B12 Level > 2000 PG/ML (193-986) Folate 16.4 NG/ML (8.6-58.9) Arterial Blood pH 7.222 (7.350-7.450) Arterial Blood Partial Pressure CO2 82.1 mmHg (35.0-45.0) Arterial Blood Partial Pressure O2 286.9 mmHg (75.0-100.0) Arterial Blood HCO3 33.0 mmol/L (22.0-26.0) Arterial Blood Oxygen Saturation 99.0 % (95-100) Arterial Blood Base Excess 4.3 (-2-2) Joe Test Positive POC Whole Blood Glucose 115 MG/DL (74-106) 99 MG/DL (74-106) Test 06/15/20 00:25 06/15/20 04:00 06/15/20 05:56 06/15/20 08:54 POC Whole Blood Glucose 97 MG/DL (74-106) 118 MG/DL (74-106) White Blood Count 15.0 K/UL (4.8-10.8) Red Blood Count 2.57 M/UL (4.70-6.10) Hemoglobin 7.4 G/DL (14.2-18.0) Hematocrit 25.4 % (42.0-52.0) Mean Corpuscular Volume 99 FL (80-99) Mean Corpuscular Hemoglobin 28.6 PG (27.0-31.0) Mean Corpuscular Hemoglobin Concent 29.0 G/DL (32.0-36.0) Red Cell Distribution Width 14.7 % (11.6-14.8) Platelet Count 386 K/UL (150-450) Mean Platelet Volume 7.7 FL (6.5-10.1) Neutrophils (%) (Auto) % (45.0-75.0) Lymphocytes (%) (Auto) % (20.0-45.0) Monocytes (%) (Auto) % (1.0-10.0) Eosinophils (%) (Auto) % (0.0-3.0) Basophils (%) (Auto) % (0.0-2.0) Differential Total Cells Counted 100 Neutrophils % (Manual) 81 % (45-75) Lymphocytes % (Manual) 10 % (20-45) Monocytes % (Manual) 9 % (1-10) Eosinophils % (Manual) 0 % (0-3) Basophils % (Manual) 0 % (0-2) Band Neutrophils 0 % (0-8) Platelet Estimate Adequate Platelet Morphology Normal Hypochromasia 1+ Anisocytosis 1+ Sodium Level 136 MMOL/L (136-145) Potassium Level 5.6 MMOL/L (3.5-5.1) Chloride Level 102 MMOL/L (98-107) Carbon Dioxide Level 33 MMOL/L (21-32) Anion Gap 1 mmol/L (5-15) Blood Urea Nitrogen 50 mg/dL (7-18) Creatinine 2.4 MG/DL (0.55-1.30) Estimat Glomerular Filtration Rate 34.5 mL/min (>60) Glucose Level 111 MG/DL (74-106) Lactic Acid Level 0.70 mmol/L (0.4-2.0) Uric Acid 5.3 MG/DL (2.6-7.2) Calcium Level 8.1 MG/DL (8.5-10.1) Phosphorus Level 6.0 MG/DL (2.5-4.9) Magnesium Level 2.2 MG/DL (1.8-2.4) Total Bilirubin 0.3 MG/DL (0.2-1.0) Direct Bilirubin 0.1 MG/DL (0.0-0.3) Gamma Glutamyl Transpeptidase 79 U/L (5-85) Aspartate Amino Transf (AST/SGOT) 163 U/L (15-37) Alanine Aminotransferase (ALT/SGPT) 157 U/L (12-78) Alkaline Phosphatase 190 U/L (46-116) Lactate Dehydrogenase 235 U/L (81-234) Total Creatine Kinase 43 U/L (26-308) Troponin I 0.002 ng/mL (0.000-0.056) C-Reactive Protein, Quantitative 15.5 mg/dL (0.00-0.90) Pro-B-Type Natriuretic Peptide 60388 pg/mL (0-125) Total Protein 7.9 G/DL (6.4-8.2) Albumin 1.5 G/DL (3.4-5.0) Globulin 6.4 g/dL Albumin/Globulin Ratio 0.2 (1.0-2.7) Triglycerides Level 49 MG/DL (30-150) Cholesterol Level 79 MG/DL (< 200) LDL Cholesterol 35 mg/dL (<100) HDL Cholesterol 30 MG/DL (40-60) Cholesterol/HDL Ratio 2.6 (3.3-4.4) Arterial Blood pH 7.125 (7.350-7.450) Arterial Blood Partial Pressure CO2 88.3 mmHg (35.0-45.0) Arterial Blood Partial Pressure O2 67.8 mmHg (75.0-100.0) Arterial Blood HCO3 28.4 mmol/L (22.0-26.0) Arterial Blood Oxygen Saturation 91.4 % (95-100) Arterial Blood Base Excess -1.5 (-2-2) Joe Test Positive Test 06/15/20 12:02 06/15/20 18:14 06/15/20 23:36 06/16/20 04:00 POC Whole Blood Glucose 163 MG/DL (74-106) 131 MG/DL (74-106) 94 MG/DL (74-106) White Blood Count 14.5 K/UL (4.8-10.8) Red Blood Count 2.41 M/UL (4.70-6.10) Hemoglobin 7.0 G/DL (14.2-18.0) Hematocrit 23.6 % (42.0-52.0) Mean Corpuscular Volume 98 FL (80-99) Mean Corpuscular Hemoglobin 29.1 PG (27.0-31.0) Mean Corpuscular Hemoglobin Concent 29.8 G/DL (32.0-36.0) Red Cell Distribution Width 14.8 % (11.6-14.8) Platelet Count 373 K/UL (150-450) Mean Platelet Volume 7.7 FL (6.5-10.1) Neutrophils (%) (Auto) % (45.0-75.0) Lymphocytes (%) (Auto) % (20.0-45.0) Monocytes (%) (Auto) % (1.0-10.0) Eosinophils (%) (Auto) % (0.0-3.0) Basophils (%) (Auto) % (0.0-2.0) Differential Total Cells Counted 100 Neutrophils % (Manual) 78 % (45-75) Lymphocytes % (Manual) 11 % (20-45) Monocytes % (Manual) 6 % (1-10) Eosinophils % (Manual) 5 % (0-3) Basophils % (Manual) 0 % (0-2) Band Neutrophils 0 % (0-8) Platelet Estimate Adequate Platelet Morphology Normal Hypochromasia 1+ Anisocytosis 1+ Sodium Level 141 MMOL/L (136-145) Potassium Level 4.2 MMOL/L (3.5-5.1) Chloride Level 104 MMOL/L (98-107) Carbon Dioxide Level 32 MMOL/L (21-32) Anion Gap 5 mmol/L (5-15) Blood Urea Nitrogen 58 mg/dL (7-18) Creatinine 2.6 MG/DL (0.55-1.30) Estimat Glomerular Filtration Rate 31.4 mL/min (>60) Glucose Level 99 MG/DL (74-106) Uric Acid 6.8 MG/DL (2.6-7.2) Calcium Level 7.8 MG/DL (8.5-10.1) Phosphorus Level 7.1 MG/DL (2.5-4.9) Magnesium Level 2.2 MG/DL (1.8-2.4) Total Bilirubin 0.3 MG/DL (0.2-1.0) Aspartate Amino Transf (AST/SGOT) 110 U/L (15-37) Alanine Aminotransferase (ALT/SGPT) 148 U/L (12-78) Alkaline Phosphatase 183 U/L (46-116) C-Reactive Protein, Quantitative 13.2 mg/dL (0.00-0.90) Pro-B-Type Natriuretic Peptide 70262 pg/mL (0-125) Total Protein 7.5 G/DL (6.4-8.2) Albumin 1.7 G/DL (3.4-5.0) Globulin 5.8 g/dL Albumin/Globulin Ratio 0.3 (1.0-2.7) Random Vancomycin Level 32.5 ug/mL Test 06/16/20 05:24 06/17/20 02:21 06/17/20 04:00 POC Whole Blood Glucose 110 MG/DL (74-106) 142 MG/DL (74-106) Sodium Level 143 MMOL/L (136-145) Potassium Level 3.8 MMOL/L (3.5-5.1) Chloride Level 106 MMOL/L (98-107) Carbon Dioxide Level 32 MMOL/L (21-32) Anion Gap 5 mmol/L (5-15) Blood Urea Nitrogen 65 mg/dL (7-18) Creatinine 3.0 MG/DL (0.55-1.30) Estimat Glomerular Filtration Rate 26.7 mL/min (>60) Glucose Level 161 MG/DL (74-106) Calcium Level 7.7 MG/DL (8.5-10.1) Phosphorus Level 7.0 MG/DL (2.5-4.9) Magnesium Level 2.3 MG/DL (1.8-2.4) Total Bilirubin 0.4 MG/DL (0.2-1.0) Aspartate Amino Transf (AST/SGOT) 353 U/L (15-37) Alanine Aminotransferase (ALT/SGPT) 229 U/L (12-78) Alkaline Phosphatase 384 U/L (46-116) C-Reactive Protein, Quantitative 12.9 mg/dL (0.00-0.90) Total Protein 7.6 G/DL (6.4-8.2) Albumin 1.6 G/DL (3.4-5.0) Globulin 6.0 g/dL Albumin/Globulin Ratio 0.3 (1.0-2.7) Random Vancomycin Level 34.4 ug/mL Height (Feet): 5 Height (Inches): 8.00 Weight (Pounds): 143 Objective PHYSICAL EXAMINATION: VITAL SIGNS: reviewed HEAD AND NECK: Show status post tracheostomy. vent+ LUNGS: Coarse rhonchi and basilar rales. CARDIOVASCULAR: Shows irregular S1 and S2 with no gallop. ABDOMEN: Soft. Status post G-tube. EXTREMITIES: No pitting edema.++Left Jose Epperson MD Jun 17, 2020 06:36
--- NOTE | 2020-06-17 07:30 | NUR ---
NURSE NOTES: Received report from MAX Celeste.
--- NOTE | 2020-06-17 07:36 | NUR ---
CASE MANAGEMENT:REVIEW 54 YR OLD MALE BIBA FROM [facility] CC: ABNORMAL LABS. WBC+15.7 HGB-7.3 PMH: TRACH/VENT/GT SI: ACUTE RESPIRATORY FAILURE ANEMIA. HYPERKALEMIA 98.2 64 20 122/74 98% ON VENT SUPPORT WBC+17.7 H/H-7.4/23.9 BUN+33 CR+1.7 PH-7.20 PCO2+87.4 HCO3+33.4 K+5.8 IS: IV ZOSYN IV LASIX IV ALBUMIN KAYEXALATE GT URINE CX CXR TRANSFUSE PRBC'S : TO STEP DOWN UNIT
--- NOTE | 2020-06-17 07:39 | NUR ---
NURSE HAND-OFF REPORT: Important Events on Shift: Results for Covid came back negative - Pending IVCP Filter Patient Status: Stable Diet: Nepro Pending Orders: N Pending Results/Labs: Y Pending notification: Lanre Rodgers Latest Vital Signs: Temperature 98.0 , Pulse 64 , B/P 110 /69 , Respiratory Rate 18 , O2 SAT 100 , Mechanical Ventilator, O2 Flow Rate . Vital Sign Comment: WNL EKG Rhythm: Sinus Rhythm Rhythm change?: N MD Notified?: Jennifer Lipscomb MD Response: No New Orders Received Latest Santiago Fall Score: 35 Fall Risk: Medium Risk Safety Measures: Call light Within Reach, Bed Alarm Zone 1, Side Rails Side Rails x3, Bed position Low and Locked. Fall Precautions: Yellow Socks Yellow Gown Door Sign Patient Fall Education Report given to MAX Aburto.
[2020-06-17 07:59] LABS: HEMOGLOBIN 7.1 G/DL (14.2-18.0); MEAN CORPUSCULAR VOLUME 94 FL (80-99); PLATELET COUNT 340 K/UL (150-450); RED BLOOD COUNT 2.43 M/UL (4.70-6.10); RED CELL DISTRIBUTION WIDTH 15.4 % (11.6-14.8); WHITE BLOOD COUNT 12.4 K/UL (4.8-10.8)
[2020-06-17 08:00] VITALS: BP 116/75
--- NOTE | 2020-06-17 08:02 | NUR ---
RD ASSESSMENT & RECOMMENDATIONS SEE CARE ACTIVITY FOR COMPLETE ASSESSMENT DAILY ESTIMATED NEEDS: Needs based on Wound, critical care, underweight/ 55.5kg 25-33 kcals/kg 8507-2955 total kcals 1.25-2 g protein/kg 69-111 g total protein 25-30 mL/kg 8635-4009 total fluid mLs NUTRITION DIAGNOSIS: * Swallowing difficulty R/T respiratory status as evidenced by pt is trach/vent dep, PEG dep. CURRENT TF: Nepro @40ml/hr x24 hrs ENTERAL NUTRITION RECOMMENDATIONS: Nepro @ 40ml/hr x 24 hrs to provide 960ml, 1728kcal, 78g prot, 698ml free water * Rec to continue [employer] TF of Nepro (K 5.8, 5.0, phos 7.0) * Rec goal rate of 40ml/hr x 24 hrs * HOB over 30 degrees/ water flush per MD ADDITIONAL RECOMMENDATIONS: * Per SNF: HT=69" [id number] -> rec daily calibrated bedscale wt * Monitor lytes: elev K-> now wnl, phos now elev * Wound healing: RANDY BID + Nephrovite 1 tab qdaily * Monitor for bm, last bm 06/15
[2020-06-17] MEDS: Pantoprazole Inj IVP SCH ×2 (09:01→20:20)
[2020-06-17] MEDS: Ascorbic Acid 500mg tab ORAL SCH (09:02)
--- NOTE | 2020-06-17 09:23 | NUR ---
NURSE NOTES: Patient is in bed, awake, watching TV. Responded when called his name and is not in distress. He is on mechanical vent with settings of AC 16, Vt 500, 80% FiO2, PEEP of 8. Patient no grimacing noted. PICC line intact and in place with one lumen. Sparrow catheter in place, intact, and draining yellow colored urine. Head of the bed is elevated at all times. Patient is on GT feeding nephro 40 cc/hr. Tolerating well. Bed is on lowest position and locked. Call light within reach. Patient will be continued to monitor.
--- NOTE | 2020-06-17 09:29 | Nephrology Progress Note ---
Assessment/Plan Problem List: (1) KERRI (acute kidney injury) (2) Acute respiratory failure (3) Chronic respiratory failure (4) Anemia (5) Hyperkalemia Assessment Acute on chronic renal failure Anemia Respiratory failure acute on chronic Respiratory acidosis and hypoxia Hyperkalemia Plan June 17: Labs reviewed. Hemoglobin low. Creatinine up to 3. Phosphorus levels elevated. Will start Amphojel via GT tube as a phosphorus binder. Monitor renal parameters. Check ABG. Continue per consultants. June 16: Labs reviewed. Serum creatinine mariana to 2.6. Abnormal electrolytes now normalized. Continue to monitor renal parameters and avoid nephrotoxic's. Continue to adjust pulmonary status as possible. June 15: ABG pH of 7.1. 2D echo suggestive of ejection fraction of 50%. Labs reviewed. Serum creatinine mariana. Will hold IV Lasix. Will give Kayexalate for high potassium and 1 amp of sodium bicarb. Albumin IV bolus given. Continue per consultants. Continue to monitor renal parameters. Kidney ultrasound ordered. June 14: As follow Pulmonary evaluation Sparrow catheter Hold IV fluid IV fluid, until 2D echo results available Kayexalate for high potassium IV Protonix 2D echocardiogram Anemia work-up More labs ordered Subjective ROS Limited/Unobtainable: Yes Objective Objective Last 24 Hour Vital Signs Date Time Temp Pulse Resp B/P (MAP) Pulse Ox O2 Delivery O2 Flow Rate FiO2 06/17/20 08:00 96.3 65 20 116/75 (89) 100 06/17/20 07:28 63 18 80 06/17/20 04:00 80 06/17/20 04:00 Mechanical Ventilator Mechanical Ventilator 06/17/20 04:00 98.0 64 18 110/69 (83) 100 06/17/20 04:00 63 06/17/20 03:11 65 21 80 06/17/20 00:00 68 06/17/20 00:00 98.1 70 20 123/69 (87) 100 06/17/20 00:00 Mechanical Ventilator Mechanical Ventilator 06/16/20 22:42 70 21 80 06/16/20 20:00 69 06/16/20 20:00 Mechanical Ventilator Mechanical Ventilator 06/16/20 20:00 97.9 71 14 106/64 (78) 100 06/16/20 20:00 80 06/16/20 19:57 70 20 80 06/16/20 16:00 96.9 70 17 115/71 (86) 100 06/16/20 16:00 Mechanical Ventilator Mechanical Ventilator 06/16/20 16:00 68 06/16/20 16:00 80 06/16/20 14:40 72 17 80 06/16/20 12:00 96.8 68 13 121/70 (87) 100 06/16/20 12:00 Mechanical Ventilator Mechanical Ventilator 06/16/20 12:00 67 06/16/20 12:00 80 06/16/20 11:06 68 18 80 Intake and Output 06/16/20 06/17/20 19:00 07:00 Intake Total 345 ml 630 ml Output Total 200 ml 300 ml Balance 145 ml 330 ml Free Water 30 ml 80 ml IV Total 55 ml 110 ml Tube Feeding 260 ml 440 ml Output Urine Total 200 ml 300 ml # Bowel Movements 1 Current Medications Medications (Trade) Dose Ordered Sig/Maryjane Route PRN Reason Start Time Stop Time Status Last Admin Dose Admin Acetaminophen (Tylenol) 650 mg Q4HR PRN GT FEVER 06/14/20 09:45 07/14/20 09:44 Ascorbic Acid (Vitamin C) 500 mg DAILY ORAL 06/16/20 09:00 07/16/20 08:59 06/17/20 09:02 Chlorhexidine Gluconate (Inés-Hex 2%) 1 applic DAILY@2000 TOPIC 06/14/20 20:00 09/12/20 19:59 06/16/20 20:31 Dextrose (Dextrose 50%) 25 ml Q30M PRN IV Hypoglycemia 06/14/20 03:45 09/12/20 03:44 Dextrose (Dextrose 50%) 50 ml Q30M PRN IV Hypoglycemia 06/14/20 03:45 09/12/20 03:44 Lidocaine HCl (Xylocaine 1% 30ml) 30 ml NOW PRN INJ Radiology Procedure 06/15/20 07:00 06/18/20 06:59 Meropenem 500 mg/ Sodium Chloride 55 ml @ 110 mls/hr EVERY 8 HOURS IVPB 06/14/20 14:00 06/19/20 13:59 06/17/20 05:38 Pantoprazole (Protonix) 40 mg EVERY 12 HOURS IVP 06/14/20 11:45 07/14/20 11:44 06/17/20 09:01 Sodium Bicarbonate (Sodium Bicarbonate 4%) 1 ml NOW PRN IV Radiology Procedure 06/15/20 07:00 06/18/20 06:59 [facility] 1 ea DAILY PRN MISC Per rx protocol 06/14/20 12:15 07/14/20 12:14 Laboratory Tests 06/17/20 02:21: POC Whole Blood Glucose 142H 06/17/20 04:00: White Blood Count 12.4H, Red Blood Count 2.43L, Hemoglobin 7.1L, Hematocrit 23.0L, Mean Corpuscular Volume 94, Mean Corpuscular Hemoglobin 29.2, Mean Corpuscular Hemoglobin Concent 30.9L, Red Cell Distribution Width 15.4H, Platelet Count 340, Mean Platelet Volume 8.3, Neutrophils (%) (Auto) , Lymphocytes (%) (Auto) , Monocytes (%) (Auto) , Eosinophils (%) (Auto) , Basophils (%) (Auto) , Neutrophils % (Manual) [Pending], Lymphocytes % (Manual) [Pending], Platelet Estimate [Pending], Platelet Morphology [Pending], Sodium Level 143, Potassium Level 3.8, Chloride Level 106, Carbon Dioxide Level 32, Anion Gap 5, Blood Urea Nitrogen 65H, Creatinine 3.0H, Estimat Glomerular Filtration Rate 26.7, Glucose Level 161H, Calcium Level 7.7L, Phosphorus Level 7.0H, Magnesium Level 2.3, Total Bilirubin 0.4, Aspartate Amino Transf (AST/SGOT) 353H, Alanine Aminotransferase (ALT/SGPT) 229H, Alkaline Phosphatase 384H, C-Reactive Protein, Quantitative 12.9H, Total Protein 7.6, Albumin 1.6L, Globulin 6.0, Albumin/Globulin Ratio 0.3L, Random Vancomycin Level 34.4 Height (Feet): 5 Height (Inches): 8.00 Weight (Pounds): 143 General Appearance: no apparent distress Cardiovascular: normal rate Respiratory/Chest: decreased breath sounds Abdomen: distended Leonidas Honeycutt MD Jun 17, 2020 09:29
[2020-06-17] MEDS: Aluminum Hydroxide Gel Susp 15ml GT SCH ×3 (10:06→22:22)
--- NOTE | 2020-06-17 10:07 | Pulmonology Progress Note ---
Subjective ROS Limited/Unobtainable: Yes Interval Events: None new; remains on vent Constitutional: Denies: fever HEENT: Repors: no symptoms Respiratory: Reports: no symptoms Cardiovascular: Reports: no symptoms Gastrointestinal/Abdominal: Reports: no symptoms Genitourinary: Reports: no symptoms Allergies: Coded Allergies: No Known Allergies (Unverified , 06/13/20) Objective Last 24 Hour Vital Signs Date Time Temp Pulse Resp B/P (MAP) Pulse Ox O2 Delivery O2 Flow Rate FiO2 06/17/20 08:00 96.3 65 20 116/75 (89) 100 06/17/20 08:00 Mechanical Ventilator Mechanical Ventilator 06/17/20 07:28 63 18 80 06/17/20 04:00 80 06/17/20 04:00 Mechanical Ventilator Mechanical Ventilator 06/17/20 04:00 98.0 64 18 110/69 (83) 100 06/17/20 04:00 63 06/17/20 03:11 65 21 80 06/17/20 00:00 68 06/17/20 00:00 98.1 70 20 123/69 (87) 100 06/17/20 00:00 Mechanical Ventilator Mechanical Ventilator 06/16/20 22:42 70 21 80 06/16/20 20:00 69 06/16/20 20:00 Mechanical Ventilator Mechanical Ventilator 06/16/20 20:00 97.9 71 14 106/64 (78) 100 06/16/20 20:00 80 06/16/20 19:57 70 20 80 06/16/20 16:00 96.9 70 17 115/71 (86) 100 06/16/20 16:00 Mechanical Ventilator Mechanical Ventilator 06/16/20 16:00 68 06/16/20 16:00 80 06/16/20 14:40 72 17 80 06/16/20 12:00 96.8 68 13 121/70 (87) 100 06/16/20 12:00 Mechanical Ventilator Mechanical Ventilator 06/16/20 12:00 67 06/16/20 12:00 80 06/16/20 11:06 68 18 80 Intake and Output 06/16/20 06/17/20 19:00 07:00 Intake Total 345 ml 630 ml Output Total 200 ml 300 ml Balance 145 ml 330 ml Free Water 30 ml 80 ml IV Total 55 ml 110 ml Tube Feeding 260 ml 440 ml Output Urine Total 200 ml 300 ml # Bowel Movements 1 General Appearance: no acute distress HEENT: status post trach Respiratory: chest wall non-tender, lungs clear Cardiovascular: normal peripheral pulses, normal rate Abdomen: normal bowel sounds Extremities: no cyanosis Microbiology Date/Time Source Procedure Growth Status 06/16/20 20:00 Sputum Gram Stain Pending Resulted 06/16/20 20:00 Sputum Sputum Culture - Preliminary NO GROWTH Resulted 06/14/20 18:05 Nasopharynx Coronavirus COVID-19 PCR ([facility]) - Final Complete Laboratory Tests 06/17/20 02:21: POC Whole Blood Glucose 142H 06/17/20 04:00: White Blood Count 12.4H, Red Blood Count 2.43L, Hemoglobin 7.1L, Hematocrit 23.0L, Mean Corpuscular Volume 94, Mean Corpuscular Hemoglobin 29.2, Mean Corpuscular Hemoglobin Concent 30.9L, Red Cell Distribution Width 15.4H, Platelet Count 340, Mean Platelet Volume 8.3, Neutrophils (%) (Auto) , Lymphocytes (%) (Auto) , Monocytes (%) (Auto) , Eosinophils (%) (Auto) , Basophils (%) (Auto) , Neutrophils % (Manual) [Pending], Lymphocytes % (Manual) [Pending], Platelet Estimate [Pending], Platelet Morphology [Pending], Sodium Level 143, Potassium Level 3.8, Chloride Level 106, Carbon Dioxide Level 32, Anion Gap 5, Blood Urea Nitrogen 65H, Creatinine 3.0H, Estimat Glomerular Filtration Rate 26.7, Glucose Level 161H, Calcium Level 7.7L, Phosphorus Level 7.0H, Magnesium Level 2.3, Total Bilirubin 0.4, Aspartate Amino Transf (AST/SGOT) 353H, Alanine Aminotransferase (ALT/SGPT) 229H, Alkaline Phosphatase 384H, C-Reactive Protein, Quantitative 12.9H, Total Protein 7.6, Albumin 1.6L, Globulin 6.0, Albumin/Globulin Ratio 0.3L, Random Vancomycin Level 34.4 06/17/20 09:33: Arterial Blood pH 7.191*L, Arterial Blood Partial Pressure CO2 91.2*H, Arterial Blood Partial Pressure O2 179.9H, Arterial Blood HCO3 34.1H, Arterial Blood Oxygen Saturation 98.2, Arterial Blood Base Excess 4.9H, Joe Test Positive Current Medications Medications (Trade) Dose Ordered Sig/Maryjane Route PRN Reason Start Time Stop Time Status Last Admin Dose Admin Acetaminophen (Tylenol) 650 mg Q4HR PRN GT FEVER 06/14/20 09:45 07/14/20 09:44 Aluminum Hydroxide (Amphojel) 1,920 mg Q6H GT 06/17/20 10:00 07/17/20 09:59 Ascorbic Acid (Vitamin C) 500 mg DAILY ORAL 06/16/20 09:00 07/16/20 08:59 06/17/20 09:02 Chlorhexidine Gluconate (Inés-Hex 2%) 1 applic DAILY@1999 TOPIC 06/14/20 20:00 09/12/20 19:59 06/16/20 20:31 Dextrose (Dextrose 50%) 25 ml Q30M PRN IV Hypoglycemia 06/14/20 03:45 09/12/20 03:44 Dextrose (Dextrose 50%) 50 ml Q30M PRN IV Hypoglycemia 06/14/20 03:45 09/12/20 03:44 Epoetin Bonilla (Epoetin Bonilla-EPBX(NON ESRD)) 10,000 unit TUE-TUE-TUE SUBQ 06/18/20 21:00 09/16/20 20:59 Lidocaine HCl (Xylocaine 1% 30ml) 30 ml NOW PRN INJ Radiology Procedure 06/15/20 07:00 06/18/20 06:59 Meropenem 500 mg/ Sodium Chloride 55 ml @ 110 mls/hr EVERY 8 HOURS IVPB 06/14/20 14:00 06/19/20 13:59 06/17/20 05:38 Pantoprazole (Protonix) 40 mg EVERY 12 HOURS IVP 06/14/20 11:45 07/14/20 11:44 06/17/20 09:01 Sodium Bicarbonate (Sodium Bicarbonate 4%) 1 ml NOW PRN IV Radiology Procedure 06/15/20 07:00 06/18/20 06:59 Vancomycin HCl ([facility] pharmacy to dose) 1 ea DAILY PRN MISC Per rx protocol 06/14/20 12:15 07/14/20 12:14 Assessment/Plan Problems: (1) Acute respiratory failure Assessment/Plan IMPRESSION: 1. Chronic respiratory failure. 2. Hypoxemia. 3. Respiratory acidosis. 4. Anemia. 5. Leukocytosis. 6. DVT DISCUSSION: The patient's x-ray is markedly abnormal with bilateral infiltrates. This could represent pulmonary edema. attempts to diurese have improved oxygenation how not succeeded. I suspect he has pulmonary fibrosis. Latest CXR is unchanged COVID 19 pcr and antigen both negative No anticoagulation for DVT due to anemia Continue assist-control mechanical ventilation; currently FiO2 80%; SaO2 100%, broad-spectrum antibiotics. Transfusion as needed. I will follow carefully. Sylvester Garcia M.D. Sylvester Garcia MD Jun 17, 2020 10:07
--- NOTE | 2020-06-17 10:09 | Infectious Diseases Prog Note ---
Assessment/Plan Assessment/Plan IMPRESSION: Pneumonia COVID19 X 2: negative Ventilator-dependent respiratory failure, Diabetes mellitus type 2, Hypertension, History of left BKA, Hypertension, anemia, Major depression, Pressure ulcer, Elevated transaminase, Hyperkalemia. Anemia R leg DVT Sacral osteomyelitis RECOMMENDATION: Continue meropenem for now Continue IV vancomycin until 07/18 Will follow up the cultures. Subjective ROS Limited/Unobtainable: Yes Constitutional: Denies: fever Respiratory: Reports: shortness of breath Allergies: Coded Allergies: No Known Allergies (Unverified , 06/13/20) Objective Last 24 Hour Vital Signs Date Time Temp Pulse Resp B/P (MAP) Pulse Ox O2 Delivery O2 Flow Rate FiO2 06/17/20 08:00 96.3 65 20 116/75 (89) 100 06/17/20 08:00 Mechanical Ventilator Mechanical Ventilator 06/17/20 07:28 63 18 80 06/17/20 04:00 80 06/17/20 04:00 Mechanical Ventilator Mechanical Ventilator 06/17/20 04:00 98.0 64 18 110/69 (83) 100 06/17/20 04:00 63 06/17/20 03:11 65 21 80 06/17/20 00:00 68 06/17/20 00:00 98.1 70 20 123/69 (87) 100 06/17/20 00:00 Mechanical Ventilator Mechanical Ventilator 06/16/20 22:42 70 21 80 06/16/20 20:00 69 06/16/20 20:00 Mechanical Ventilator Mechanical Ventilator 06/16/20 20:00 97.9 71 14 106/64 (78) 100 06/16/20 20:00 80 06/16/20 19:57 70 20 80 06/16/20 16:00 96.9 70 17 115/71 (86) 100 06/16/20 16:00 Mechanical Ventilator Mechanical Ventilator 06/16/20 16:00 68 06/16/20 16:00 80 06/16/20 14:40 72 17 80 06/16/20 12:00 96.8 68 13 121/70 (87) 100 06/16/20 12:00 Mechanical Ventilator Mechanical Ventilator 06/16/20 12:00 67 06/16/20 12:00 80 06/16/20 11:06 68 18 80 Height (Feet): 5 Height (Inches): 8.00 Weight (Pounds): 143 HEENT: status post trach, other - poor dentition Respiratory/Chest: other - on ventilator Cardiovascular: normal rate Abdomen: soft, non tender, other - GT feeding Extremities: no edema Neurologic/Psychiatric: alert, responsive Microbiology Date/Time Source Procedure Growth Status 06/16/20 20:00 Sputum Gram Stain Pending Resulted 06/16/20 20:00 Sputum Sputum Culture - Preliminary NO GROWTH Resulted 06/14/20 18:05 Nasopharynx Coronavirus COVID-19 PCR ([facility]) - Final Complete Laboratory Tests Test 06/17/20 02:21 06/17/20 04:00 06/17/20 09:33 POC Whole Blood Glucose 142 MG/DL (74-106) H White Blood Count 12.4 K/UL (4.8-10.8) H Red Blood Count 2.43 M/UL (4.70-6.10) L Hemoglobin 7.1 G/DL (14.2-18.0) L Hematocrit 23.0 % (42.0-52.0) L Mean Corpuscular Volume 94 FL (80-99) Mean Corpuscular Hemoglobin 29.2 PG (27.0-31.0) Mean Corpuscular Hemoglobin Concent 30.9 G/DL (32.0-36.0) L Red Cell Distribution Width 15.4 % (11.6-14.8) H Platelet Count 340 K/UL (150-450) Mean Platelet Volume 8.3 FL (6.5-10.1) Neutrophils (%) (Auto) % (45.0-75.0) Lymphocytes (%) (Auto) % (20.0-45.0) Monocytes (%) (Auto) % (1.0-10.0) Eosinophils (%) (Auto) % (0.0-3.0) Basophils (%) (Auto) % (0.0-2.0) Neutrophils % (Manual) Pending Lymphocytes % (Manual) Pending Platelet Estimate Pending Platelet Morphology Pending Sodium Level 143 MMOL/L (136-145) Potassium Level 3.8 MMOL/L (3.5-5.1) Chloride Level 106 MMOL/L (98-107) Carbon Dioxide Level 32 MMOL/L (21-32) Anion Gap 5 mmol/L (5-15) Blood Urea Nitrogen 65 mg/dL (7-18) H Creatinine 3.0 MG/DL (0.55-1.30) H Estimat Glomerular Filtration Rate 26.7 mL/min (>60) Glucose Level 161 MG/DL (74-106) H Calcium Level 7.7 MG/DL (8.5-10.1) L Phosphorus Level 7.0 MG/DL (2.5-4.9) H Magnesium Level 2.3 MG/DL (1.8-2.4) Total Bilirubin 0.4 MG/DL (0.2-1.0) Aspartate Amino Transf (AST/SGOT) 353 U/L (15-37) H Alanine Aminotransferase (ALT/SGPT) 229 U/L (12-78) H Alkaline Phosphatase 384 U/L (46-116) H C-Reactive Protein, Quantitative 12.9 mg/dL (0.00-0.90) H Total Protein 7.6 G/DL (6.4-8.2) Albumin 1.6 G/DL (3.4-5.0) L Globulin 6.0 g/dL Albumin/Globulin Ratio 0.3 (1.0-2.7) L Random Vancomycin Level 34.4 ug/mL Arterial Blood pH 7.191 (7.350-7.450) Arterial Blood Partial Pressure CO2 91.2 mmHg (35.0-45.0) *H Arterial Blood Partial Pressure O2 179.9 mmHg (75.0-100.0) H Arterial Blood HCO3 34.1 mmol/L (22.0-26.0) H Arterial Blood Oxygen Saturation 98.2 % (95-100) Arterial Blood Base Excess 4.9 (-2-2) H Joe Test Positive Current Medications Medications (Trade) Dose Ordered Sig/Maryjane Route PRN Reason Start Time Stop Time Status Last Admin Dose Admin Acetaminophen (Tylenol) 650 mg Q4HR PRN GT FEVER 06/14/20 09:45 07/14/20 09:44 Aluminum Hydroxide (Amphojel) 1,920 mg Q6H GT 06/17/20 10:00 07/17/20 09:59 Ascorbic Acid (Vitamin C) 500 mg DAILY ORAL 06/16/20 09:00 07/16/20 08:59 06/17/20 09:02 Chlorhexidine Gluconate (Inés-Hex 2%) 1 applic DAILY@1999 TOPIC 06/14/20 20:00 09/12/20 19:59 06/16/20 20:31 Dextrose (Dextrose 50%) 25 ml Q30M PRN IV Hypoglycemia 06/14/20 03:45 09/12/20 03:44 Dextrose (Dextrose 50%) 50 ml Q30M PRN IV Hypoglycemia 06/14/20 03:45 09/12/20 03:44 Epoetin Bonlila (Epoetin Bonilla-EPBX(NON ESRD)) 10,000 unit TUE-TUE-TUE SUBQ 06/18/20 21:00 09/16/20 20:59 Lidocaine HCl (Xylocaine 1% 30ml) 30 ml NOW PRN INJ Radiology Procedure 06/15/20 07:00 06/18/20 06:59 Meropenem 500 mg/ Sodium Chloride 55 ml @ 110 mls/hr EVERY 8 HOURS IVPB 06/14/20 14:00 06/19/20 13:59 06/17/20 05:38 Pantoprazole (Protonix) 40 mg EVERY 12 HOURS IVP 06/14/20 11:45 07/14/20 11:44 06/17/20 09:01 Sodium Bicarbonate (Sodium Bicarbonate 4%) 1 ml NOW PRN IV Radiology Procedure 06/15/20 07:00 06/18/20 06:59 Vancomycin HCl ([facility] pharmacy to dose) 1 ea DAILY PRN MISC Per rx protocol 06/14/20 12:15 07/14/20 12:14 Paul Amador MD Jun 17, 2020 10:09
--- NOTE | 2020-06-17 11:44 | Cardiac Electrophysiology PN ---
Assessment/Plan Assessment/Plan 1. Respiratory failure in this patient with vent-dependent respiratory failure. The patient's chest x-ray is suspicious for extensive bilateral pneumonia or ARDS. His creatinine is 2.6. Off isolation EF 50%. Ruled out for ME. BNP 96839. On iv Abx 2. Tachycardia, likely due to respiratory failure. 3. Ventilator-dependent respiratory failure, status post tracheostomy. 4. Dysphagia, status post PEG placement. 5. Renal failure. Further evaluation by Dr. Honeycutt. 6. Right femoral vein DVT. IVC filter today pending DW RN Subjective Subjective On the Vent off isolation . On 60% Fio2 and PEEP. NPO for IVC filter pending Objective Last 24 Hour Vital Signs Date Time Temp Pulse Resp B/P (MAP) Pulse Ox O2 Delivery O2 Flow Rate FiO2 06/17/20 11:17 68 18 60 06/17/20 08:00 96.3 65 20 116/75 (89) 100 06/17/20 08:00 Mechanical Ventilator Mechanical Ventilator 06/17/20 08:00 80 06/17/20 07:48 63 06/17/20 07:28 63 18 80 06/17/20 04:00 80 06/17/20 04:00 Mechanical Ventilator Mechanical Ventilator 06/17/20 04:00 98.0 64 18 110/69 (83) 100 06/17/20 04:00 63 06/17/20 03:11 65 21 80 06/17/20 00:00 68 06/17/20 00:00 98.1 70 20 123/69 (87) 100 06/17/20 00:00 Mechanical Ventilator Mechanical Ventilator 06/16/20 22:42 70 21 80 06/16/20 20:00 69 06/16/20 20:00 Mechanical Ventilator Mechanical Ventilator 06/16/20 20:00 97.9 71 14 106/64 (78) 100 06/16/20 20:00 80 06/16/20 19:57 70 20 80 06/16/20 16:00 96.9 70 17 115/71 (86) 100 06/16/20 16:00 Mechanical Ventilator Mechanical Ventilator 06/16/20 16:00 68 06/16/20 16:00 80 06/16/20 14:40 72 17 80 06/16/20 12:00 96.8 68 13 121/70 (87) 100 06/16/20 12:00 Mechanical Ventilator Mechanical Ventilator 06/16/20 12:00 67 06/16/20 12:00 80 Intake and Output 06/16/20 06/17/20 19:00 07:00 Intake Total 345 ml 630 ml Output Total 200 ml 300 ml Balance 145 ml 330 ml Free Water 30 ml 80 ml IV Total 55 ml 110 ml Tube Feeding 260 ml 440 ml Output Urine Total 200 ml 300 ml # Bowel Movements 1 Laboratory Tests Test 06/17/20 02:21 06/17/20 04:00 06/17/20 09:33 POC Whole Blood Glucose 142 MG/DL (74-106) H White Blood Count 12.4 K/UL (4.8-10.8) H Red Blood Count 2.43 M/UL (4.70-6.10) L Hemoglobin 7.1 G/DL (14.2-18.0) L Hematocrit 23.0 % (42.0-52.0) L Mean Corpuscular Volume 94 FL (80-99) Mean Corpuscular Hemoglobin 29.2 PG (27.0-31.0) Mean Corpuscular Hemoglobin Concent 30.9 G/DL (32.0-36.0) L Red Cell Distribution Width 15.4 % (11.6-14.8) H Platelet Count 340 K/UL (150-450) Mean Platelet Volume 8.3 FL (6.5-10.1) Neutrophils (%) (Auto) % (45.0-75.0) Lymphocytes (%) (Auto) % (20.0-45.0) Monocytes (%) (Auto) % (1.0-10.0) Eosinophils (%) (Auto) % (0.0-3.0) Basophils (%) (Auto) % (0.0-2.0) Differential Total Cells Counted 100 Neutrophils % (Manual) 82 % (45-75) H Lymphocytes % (Manual) 9 % (20-45) L Monocytes % (Manual) 5 % (1-10) Eosinophils % (Manual) 3 % (0-3) Basophils % (Manual) 0 % (0-2) Band Neutrophils 1 % (0-8) Platelet Estimate Adequate Platelet Morphology Normal Anisocytosis 1+ Sodium Level 143 MMOL/L (136-145) Potassium Level 3.8 MMOL/L (3.5-5.1) Chloride Level 106 MMOL/L (98-107) Carbon Dioxide Level 32 MMOL/L (21-32) Anion Gap 5 mmol/L (5-15) Blood Urea Nitrogen 65 mg/dL (7-18) H Creatinine 3.0 MG/DL (0.55-1.30) H Estimat Glomerular Filtration Rate 26.7 mL/min (>60) Glucose Level 161 MG/DL (74-106) H Calcium Level 7.7 MG/DL (8.5-10.1) L Phosphorus Level 7.0 MG/DL (2.5-4.9) H Magnesium Level 2.3 MG/DL (1.8-2.4) Total Bilirubin 0.4 MG/DL (0.2-1.0) Aspartate Amino Transf (AST/SGOT) 353 U/L (15-37) H Alanine Aminotransferase (ALT/SGPT) 229 U/L (12-78) H Alkaline Phosphatase 384 U/L (46-116) H C-Reactive Protein, Quantitative 12.9 mg/dL (0.00-0.90) H Total Protein 7.6 G/DL (6.4-8.2) Albumin 1.6 G/DL (3.4-5.0) L Globulin 6.0 g/dL Albumin/Globulin Ratio 0.3 (1.0-2.7) L Random Vancomycin Level 34.4 ug/mL Arterial Blood pH 7.191 (7.350-7.450) Arterial Blood Partial Pressure CO2 91.2 mmHg (35.0-45.0) *H Arterial Blood Partial Pressure O2 179.9 mmHg (75.0-100.0) H Arterial Blood HCO3 34.1 mmol/L (22.0-26.0) H Arterial Blood Oxygen Saturation 98.2 % (95-100) Arterial Blood Base Excess 4.9 (-2-2) H Joe Test Positive Microbiology Date/Time Source Procedure Growth Status 06/16/20 20:00 Sputum Gram Stain Pending Resulted 06/16/20 20:00 Sputum Sputum Culture - Preliminary NO GROWTH Resulted 06/14/20 18:05 Nasopharynx Coronavirus COVID-19 PCR ([facility]) - Final Complete Objective HEAD AND NECK: Status post tracheostomy. LUNGS: Coarse rhonchi and basilar rales. CARDIOVASCULAR: Shows irregular S1 and S2 with no gallop. ABDOMEN: Soft. Status post G-tube. EXTREMITIES: No pitting edema. Lance Mcguire MD Jun 17, 2020 11:44
[2020-06-17 12:00] VITALS: BP 105/60
--- NOTE | 2020-06-17 12:03 | Surgery Progress Note ---
Surgery Progress Note Subjective Additional Comments no acute events moving comfortable lft's elevated no n/v Objective Last 24 Hour Vital Signs Date Time Temp Pulse Resp B/P (MAP) Pulse Ox O2 Delivery O2 Flow Rate FiO2 06/17/20 11:17 68 18 60 06/17/20 08:00 96.3 65 20 116/75 (89) 100 06/17/20 08:00 Mechanical Ventilator Mechanical Ventilator 06/17/20 08:00 80 06/17/20 07:48 63 06/17/20 07:28 63 18 80 06/17/20 04:00 80 06/17/20 04:00 Mechanical Ventilator Mechanical Ventilator 06/17/20 04:00 98.0 64 18 110/69 (83) 100 06/17/20 04:00 63 06/17/20 03:11 65 21 80 06/17/20 00:00 68 06/17/20 00:00 98.1 70 20 123/69 (87) 100 06/17/20 00:00 Mechanical Ventilator Mechanical Ventilator 06/16/20 22:42 70 21 80 06/16/20 20:00 69 06/16/20 20:00 Mechanical Ventilator Mechanical Ventilator 06/16/20 20:00 97.9 71 14 106/64 (78) 100 06/16/20 20:00 80 06/16/20 19:57 70 20 80 06/16/20 16:00 96.9 70 17 115/71 (86) 100 06/16/20 16:00 Mechanical Ventilator Mechanical Ventilator 06/16/20 16:00 68 06/16/20 16:00 80 06/16/20 14:40 72 17 80 I&O Intake and Output 06/16/20 06/17/20 19:00 07:00 Intake Total 345 ml 630 ml Output Total 200 ml 300 ml Balance 145 ml 330 ml Free Water 30 ml 80 ml IV Total 55 ml 110 ml Tube Feeding 260 ml 440 ml Output Urine Total 200 ml 300 ml # Bowel Movements 1 Dressing: other Wound: other Cardiovascular: RSR Respiratory: decreased breath sounds Abdomen: soft, non-tender, present bowel sounds Extremities: no tenderness, no cyanosis Laboratory Tests Test 06/17/20 02:21 06/17/20 04:00 06/17/20 09:33 POC Whole Blood Glucose 142 MG/DL (74-106) H White Blood Count 12.4 K/UL (4.8-10.8) H Red Blood Count 2.43 M/UL (4.70-6.10) L Hemoglobin 7.1 G/DL (14.2-18.0) L Hematocrit 23.0 % (42.0-52.0) L Mean Corpuscular Volume 94 FL (80-99) Mean Corpuscular Hemoglobin 29.2 PG (27.0-31.0) Mean Corpuscular Hemoglobin Concent 30.9 G/DL (32.0-36.0) L Red Cell Distribution Width 15.4 % (11.6-14.8) H Platelet Count 340 K/UL (150-450) Mean Platelet Volume 8.3 FL (6.5-10.1) Neutrophils (%) (Auto) % (45.0-75.0) Lymphocytes (%) (Auto) % (20.0-45.0) Monocytes (%) (Auto) % (1.0-10.0) Eosinophils (%) (Auto) % (0.0-3.0) Basophils (%) (Auto) % (0.0-2.0) Differential Total Cells Counted 100 Neutrophils % (Manual) 82 % (45-75) H Lymphocytes % (Manual) 9 % (20-45) L Monocytes % (Manual) 5 % (1-10) Eosinophils % (Manual) 3 % (0-3) Basophils % (Manual) 0 % (0-2) Band Neutrophils 1 % (0-8) Platelet Estimate Adequate Platelet Morphology Normal Anisocytosis 1+ Sodium Level 143 MMOL/L (136-145) Potassium Level 3.8 MMOL/L (3.5-5.1) Chloride Level 106 MMOL/L (98-107) Carbon Dioxide Level 32 MMOL/L (21-32) Anion Gap 5 mmol/L (5-15) Blood Urea Nitrogen 65 mg/dL (7-18) H Creatinine 3.0 MG/DL (0.55-1.30) H Estimat Glomerular Filtration Rate 26.7 mL/min (>60) Glucose Level 161 MG/DL (74-106) H Calcium Level 7.7 MG/DL (8.5-10.1) L Phosphorus Level 7.0 MG/DL (2.5-4.9) H Magnesium Level 2.3 MG/DL (1.8-2.4) Total Bilirubin 0.4 MG/DL (0.2-1.0) Aspartate Amino Transf (AST/SGOT) 353 U/L (15-37) H Alanine Aminotransferase (ALT/SGPT) 229 U/L (12-78) H Alkaline Phosphatase 384 U/L (46-116) H C-Reactive Protein, Quantitative 12.9 mg/dL (0.00-0.90) H Total Protein 7.6 G/DL (6.4-8.2) Albumin 1.6 G/DL (3.4-5.0) L Globulin 6.0 g/dL Albumin/Globulin Ratio 0.3 (1.0-2.7) L Random Vancomycin Level 34.4 ug/mL Arterial Blood pH 7.191 (7.350-7.450) Arterial Blood Partial Pressure CO2 91.2 mmHg (35.0-45.0) *H Arterial Blood Partial Pressure O2 179.9 mmHg (75.0-100.0) H Arterial Blood HCO3 34.1 mmol/L (22.0-26.0) H Arterial Blood Oxygen Saturation 98.2 % (95-100) Arterial Blood Base Excess 4.9 (-2-2) H Joe Test Positive Plan Problems: (1) Leukocytosis Assessment & Plan: 54-year-old male multiple comorbidities admitted for abnormal chest x-ray potentially pneumonia leukocytosis abnormal labs. Patient identified to have a prior left BKA surgical sutures still in place as well as a surgical sacral wound with sutures in place. Considerations of dehiscence being identified and potential etiology of infection. After evaluation unlikely source of infection though the sacral wound was looked to be dehiscing at the inferior aspect. No acute surgical mention at this time We will discussed care plan with PCP Recommend follow-up with initial surgeon considerations of removal of surgical sutures Care plan initiated worsening lft's US ordered ? shayla (2) Surgical wound dehiscence Assessment & Plan: Patient identified to have a left BKA surgical sutures in place flap looks like it is taken well no signs of infection at this time no signs of seroma hematoma or drainage. Unknown exact length or duration of potential prior left BKA and until then recommend leaving sutures in place as it may be too early though it does look well-healed. If able to obtain prior records we will be happy to remove sutures otherwise will need follow-up with primary surgeon furthermore patient identified to have a surgical wound in the sacral area seems he probably potentially had a stage IV sacral decubitus ulcer that had debridement and primary closure. Fortunately. Sutures are still in place and it looks like the inferior aspect may be slowly dehiscing. There is no significant drainage no foul odor no signs of active infection unknown if bone was palpable prior. Can consider removing surgical sutures but again would recommend obtaining prior records of possible prior to doing so. Also recommend following up with primary surgeon as this may need ongoing continued care. Will follow with recommendations and as information is available. Continue current care plan. Wash wounds daily with normal saline. Apply skin protectant Optifoam dressing. Turn every 2 hours. Offload pressure with pillows and air mattress. Nutritional optimization. (3) History of left below knee amputation (4) Malnutrition Assessment & Plan: DAILY ESTIMATED NEEDS: Needs based on Wound, critical care, underweight/ 55.5kg 25-33 kcals/kg 2716-1474 total kcals 1.25-2 g protein/kg 69-111 g total protein 25-30 mL/kg 1753-2387 total fluid mLs NUTRITION DIAGNOSIS: * Swallowing difficulty R/T respiratory status as evidenced by pt is trach/vent dep, PEG dep, NPO at this time. CURRENT TF:NPO ENTERAL NUTRITION RECOMMENDATIONS: Nepro @ 40ml/hr x 24 hrs to provide 960ml, 1728kcal, 78g prot, 698ml free water * Rec to continue [employer] TF of Nepro (K 5.8, 5.0) * Rec goal rate of 40ml/hr x 24 hrs * HOB over 30 degrees/ water flush per MD ADDITIONAL RECOMMENDATIONS: * Per SNF: HT=69" [id number] -> rec daily calibrated bedscale wt * Monitor lytes: elev K * Wound healing: f/up w/ WC eval add Vit C 500mg QD, Av BID via PEG (5) Anemia (6) KERRI (acute kidney injury) (7) Acute respiratory failure (8) Hyperkalemia (9) Anemia (10) Abnormal laboratory test result (11) Chronic respiratory failure Azar Mares Jun 17, 2020 12:03
--- NOTE | 2020-06-17 13:31 | NUR ---
RETAIL OPERATIONS SPECIALISTCORRECTION OFFICER REFORMATORY SI; RESP FAILURE TRACH/VENT DEPENDENT,SEPSIS,PNA T. 96.7 HR 62 RR 22 B/P 105/60 AC 16 TV 500 FIO2 80% PEEP 8 PH 7.19 PCO2 91.2 PO2 179.9 HCO3 34.1 O2 SAT 98.2 BC 12.1 BUN 65 CR 3.0 CA 7.7 H/H 7.1/23.0 IS: MEROPENEM IV PROTONIX IV TITRATE FIO2 STEP DOWN STATUS
--- NOTE | 2020-06-17 13:34 | NUR ---
CIGAR PACKING EXAMINER NOTES CLINICALS REVIEWED AND FAXED.
[2020-06-17 16:00] VITALS: BP 108/70
--- NOTE | 2020-06-17 16:59 | General Progress Note ---
Subjective ROS Limited/Unobtainable: Yes Allergies: Coded Allergies: No Known Allergies (Unverified , 06/13/20) Objective Last 24 Hour Vital Signs Date Time Temp Pulse Resp B/P (MAP) Pulse Ox O2 Delivery O2 Flow Rate FiO2 06/17/20 16:00 80 06/17/20 15:48 66 06/17/20 15:29 65 21 60 06/17/20 12:00 96.7 62 22 105/60 (75) 99 06/17/20 12:00 80 06/17/20 12:00 Mechanical Ventilator Mechanical Ventilator 06/17/20 11:48 62 06/17/20 11:17 68 18 60 06/17/20 08:00 96.3 65 20 116/75 (89) 100 06/17/20 08:00 Mechanical Ventilator Mechanical Ventilator 06/17/20 08:00 80 06/17/20 07:48 63 06/17/20 07:28 63 18 80 06/17/20 04:00 80 06/17/20 04:00 Mechanical Ventilator Mechanical Ventilator 06/17/20 04:00 98.0 64 18 110/69 (83) 100 06/17/20 04:00 63 06/17/20 03:11 65 21 80 06/17/20 00:00 68 06/17/20 00:00 98.1 70 20 123/69 (87) 100 06/17/20 00:00 Mechanical Ventilator Mechanical Ventilator 06/16/20 22:42 70 21 80 06/16/20 20:00 69 06/16/20 20:00 Mechanical Ventilator Mechanical Ventilator 06/16/20 20:00 97.9 71 14 106/64 (78) 100 06/16/20 20:00 80 06/16/20 19:57 70 20 80 Intake and Output 06/16/20 06/17/20 19:00 07:00 Intake Total 345 ml 630 ml Output Total 200 ml 300 ml Balance 145 ml 330 ml Free Water 30 ml 80 ml IV Total 55 ml 110 ml Tube Feeding 260 ml 440 ml Output Urine Total 200 ml 300 ml # Bowel Movements 1 Laboratory Tests 06/17/20 02:21: POC Whole Blood Glucose 142H 06/17/20 04:00: White Blood Count 12.4H, Red Blood Count 2.43L, Hemoglobin 7.1L, Hematocrit 23.0L, Mean Corpuscular Volume 94, Mean Corpuscular Hemoglobin 29.2, Mean Corpuscular Hemoglobin Concent 30.9L, Red Cell Distribution Width 15.4H, Platel et Count 340, Mean Platelet Volume 8.3, Neutrophils (%) (Auto) , Lymphocytes (%) (Auto) , Monocytes (%) (Auto) , Eosinophils (%) (Auto) , Basophils (%) (Auto) , Differential Total Cells Counted 100, Neutrophils % (Manual) 82H, Lymphocytes % (Manual) 9L, Monocytes % (Manual) 5, Eosinophils % (Manual) 3, Basophils % (Manual) 0, Band Neutrophils 1, Platelet Estimate Adequate, Platelet Morphology Normal, Anisocytosis 1+, Sodium Level 143, Potassium Level 3.8, Chloride Level 106, Carbon Dioxide Level 32, Anion Gap 5, Blood Urea Nitrogen 65H, Creatinine 3.0H, Estimat Glomerular Filtration Rate 26.7, Glucose Level 161H, Calcium Level 7.7L, Phosphorus Level 7.0H, Magnesium Level 2.3, Total Bilirubin 0.4, Aspartate Amino Transf (AST/SGOT) 353H, Alanine Aminotransferase (ALT/SGPT) 229H, Alkaline Phosphatase 384H, C-Reactive Protein, Quantitative 12.9H, Total Protein 7.6, Albumin 1.6L, Globulin 6.0, Albumin/Globulin Ratio 0.3L, Random Vancomycin Level 34.4 06/17/20 09:33: Arterial Blood pH 7.191*L, Arterial Blood Partial Pressure CO2 91.2*H, Arterial Blood Partial Pressure O2 179.9H, Arterial Blood HCO3 34.1H, Arterial Blood Oxygen Saturation 98.2, Arterial Blood Base Excess 4.9H, Joe Test Positive 06/17/20 12:36: POC Whole Blood Glucose 155H Height (Feet): 5 Height (Inches): 8.00 Weight (Pounds): 143 Assessment/Plan Problem List: (1) Anemia ICD Codes: D64.9 - Anemia, unspecified SNOMED: 417104000 (2) KERRI (acute kidney injury) ICD Codes: N17.9 - Acute kidney failure, unspecified SNOMED: 5088045, 88687344 (3) Acute respiratory failure ICD Codes: J96.00 - Acute respiratory failure, unspecified whether with hypoxia or hypercapnia SNOMED: 73720679 Qualifiers: Qualified Codes: J96.02 - Acute respiratory failure with hypercapnia (4) Hyperkalemia ICD Codes: E87.5 - Hyperkalemia SNOMED: 91358242 (5) Abnormal laboratory test result ICD Codes: R89.9 - Unspecified abnormal finding in specimens from other organs, systems and tissues SNOMED: 654672603 (6) Anemia ICD Codes: D64.9 - Anemia, unspecified SNOMED: 103269740 Status: progressing Assessment/Plan: anemia check h/h check lytes afebrile resp acidosis improving pulm edema arf improving trach and peg Neida Apple MD Jun 17, 2020 16:59
--- NOTE | 2020-06-17 19:22 | NUR ---
NURSE HAND-OFF REPORT: Important Events on Shift: abdominal US done. awaiting for results Patient Status: Diet: Pending Orders: Pending Results/Labs: Pending MD notification: Latest Vital Signs: Temperature 96.3 , Pulse 63 , B/P 108 /70 , Respiratory Rate 19 , O2 SAT 100 , Mechanical Ventilator, O2 Flow Rate . Vital Sign Comment: EKG Rhythm: Sinus Rhythm Rhythm change?: N MD Notified?: Jennifer Lipscomb MD Response: No New Orders Received Latest Santiago Fall Score: 35 Fall Risk: Medium Risk Safety Measures: Call light Within Reach, Bed Alarm Zone 1, Side Rails Side Rails x3, Bed position Low and Locked. Fall Precautions: Yellow Socks Yellow Gown Door Sign Patient Fall Education Report given to .
--- NOTE | 2020-06-17 19:31 | NUR ---
NURSE NOTES: Report received from MAX Aburto. Observed pt lying in the bed, sleeping in the bed. SR on cardiac surgeon. Trach to vent, Shiley 8, AC 16, TV 500, FIO2 60%, PEEP 8, no SOB noted. GT intact, running Nepro at 40cc/hr. PICC on R UA noted. Bed in the lowest position. Side rails up x3. Will continue to monitor.
[2020-06-17 20:00] VITALS: BP 119/79
[2020-06-17] MEDS: Dyna-Hex 2% Top Sol 2oz TOPIC SCH (20:21)
--- NOTE | 2020-06-17 23:14 | NUR ---
NURSE NOTES: Bed bath given. Pt c/o hard time breathing, RR 20, saturating at 99%, RT called to assess. Pt states, "little better." Reposition done. Will continue to monitor.
[2020-06-18] VITALS (14 sets, daily range): BP systolic 110–131; BP diastolic 64–78
--- NOTE | 2020-06-18 01:49 | NUR ---
NURSE NOTES: Pt sleeping in the bed. No acute distress noted at this time. SR. Tolerating current vent setting. GT running Nepro at 40cc, no residual, flushing well. Reposition done. Will continue to monitor.
[2020-06-18] MEDS: Aluminum Hydroxide Gel Susp 15ml GT SCH ×4 (04:14→22:08)
[2020-06-18] MEDS: Acetaminophen 650mg/20.3ml GT PRN ×2 (04:15→23:12)
[2020-06-18 05:08] LABS: HEMATOCRIT 22.7 % (42.0-52.0); MEAN CORPUSCULAR VOLUME 98 FL (80-99); PLATELET COUNT 279 K/UL (150-450); RED BLOOD COUNT 2.33 M/UL (4.70-6.10); RED CELL DISTRIBUTION WIDTH 14.9 % (11.6-14.8); WHITE BLOOD COUNT 11.9 K/UL (4.8-10.8)
[2020-06-18] MEDS: Meropenem 500 MG in NS 55 ML IVPB SCH (05:09)
[2020-06-18 05:58] LABS: HEMOGLOBIN 6.7 G/DL (14.2-18.0)
--- NOTE | 2020-06-18 06:36 | Hematology/Onc Progress Note ---
Assessment/Plan Assessment/Plan ASSESSMENT AND PLAN: #. Anemia that is likely due to chronic disease, r/o gi bleeding --> anemia panel has been reviewed, ferritin is >2000 --> no e/o hemolysis is noted --> transfuse on prn basis --> blood consent has been signed --> hgb 7.4-->7.4-->7-->6.7 --> folic acid is wnl --> 1 unit prbc 06/18 # Acute DVT in the distal right common femoral vein and profunda femoris vein. --> DUPLEX . Acute DVT in the distal right common femoral vein and profunda femoris vein. 2. No evidence of left lower extremity DVT. --> cannot anticoagulate at this time --> will order for ivc filter placement # Leukocytosis is likely due to b/l infiltrates --> on abx as per id -> ABX yolis/vanc --> continue trend --> wbc 15-->12 # Respiratory failure in this patient with vent-dependent respiratory failure. T --> cxr with pna/chf --> diuresis prn # Tachycardia, likely due to respiratory failure. # Left bka # Ventilator-dependent respiratory failure, status post tracheostomy. # Dysphagia, status post PEG placement. # Renal failure. -> per Dr. Honeycutt. # Hyperkalemia and kayxelate as needed. # Dvt ppx scds Appreciate consultation and angela RN Subjective HEENT: Denies: no symptoms, eye pain, blurred vision, tearing, double vision, ear pain, ear discharge, nose pain, nose congestion, throat pain, throat swelling, mouth pain, mouth swelling, other Cardiovascular: Denies: no symptoms, chest pain, edema, irregular heart rate, lightheadedness, palpitations, syncope, other Respiratory: Denies: no symptoms, cough, shortness of breath, SOB with excertion, SOB at rest, sputum, wheezing, other Gastrointestinal/Abdominal: Denies: no symptoms, abdomen distended, abdominal pain, black stools, tarry stools, blood in stool, constipated, diarrhea, difficulty swallowing, nausea, poor appetite, poor fluid intake, rectal bleeding, vomiting, other Genitourinary: Denies: no symptoms, burning, discharge, frequency, flank pain, hematuria, incontinence, pain, urgency, other Neurologic/Psychiatric: Denies: no symptoms, anxiety, depressed, emotional problems, headache, numbness, paresthesia, pre-existing deficit, seizure, tingling, tremors, weakness, other Endocrine: Denies: no symptoms, excessive sweating, flushing, intolerance to cold, intolerance to heat, increased hunger, increased thirst, increased urine, unexplained weight gain, unexplained weight loss, other Hematologic/Lymphatic: Denies: no symptoms, anemia, easy bleeding, easy bruising, adenopathy, other Allergies: Coded Allergies: No Known Allergies (Unverified , 06/13/20) Subjective 06/16 meds noted, labs reviewed, vent to trach, for ivc filter potentially 06/17 labs noted, meds reviewed, for ivc filter once covid neg 06/18 labs are noted, on vent and gt, 1 unit prbc ordered Objective Objective Current Medications Medications (Trade) Dose Ordered Sig/Maryjane Route PRN Reason Start Time Stop Time Status Last Admin Dose Admin Acetaminophen (Tylenol) 650 mg Q4HR PRN GT FEVER 06/14/20 09:45 07/14/20 09:44 06/18/20 04:15 Aluminum Hydroxide (Amphojel) 1,920 mg Q6H GT 06/17/20 10:00 07/17/20 09:59 06/18/20 04:14 Ascorbic Acid (Vitamin C) 500 mg DAILY ORAL 06/16/20 09:00 07/16/20 08:59 06/17/20 09:02 Chlorhexidine Gluconate (Inés-Hex 2%) 1 applic DAILY@1999 TOPIC 06/14/20 20:00 09/12/20 19:59 06/17/20 20:21 Dextrose (Dextrose 50%) 25 ml Q30M PRN IV Hypoglycemia 06/14/20 03:45 09/12/20 03:44 Dextrose (Dextrose 50%) 50 ml Q30M PRN IV Hypoglycemia 06/14/20 03:45 09/12/20 03:44 Epoetin Bonilla (Epoetin Bonilla-EPBX(NON ESRD)) 10,000 unit MON-WED-FRI SUBQ 06/18/20 21:00 09/16/20 20:59 Lidocaine HCl (Xylocaine 1% 30ml) 30 ml NOW PRN INJ Radiology Procedure 06/15/20 07:00 06/18/20 06:59 Meropenem 500 mg/ Sodium Chloride 55 ml @ 110 mls/hr EVERY 8 HOURS IVPB 06/14/20 14:00 06/19/20 13:59 06/18/20 05:09 Pantoprazole (Protonix) 40 mg EVERY 12 HOURS IVP 06/14/20 11:45 07/14/20 11:44 06/17/20 20:20 Sodium Bicarbonate (Sodium Bicarbonate 4%) 1 ml NOW PRN IV Radiology Procedure 06/15/20 07:00 06/18/20 06:59 Vancomycin HCl (Vanco pharmacy to dose) 1 ea DAILY PRN MISC Per rx protocol 06/14/20 12:15 07/14/20 12:14 Last 24 Hour Vital Signs Date Time Temp Pulse Resp B/P (MAP) Pulse Ox O2 Delivery O2 Flow Rate FiO2 06/18/20 04:33 60 20 60 06/18/20 04:00 97.1 61 20 115/70 (85) 100 06/18/20 04:00 62 06/18/20 04:00 60 06/18/20 04:00 Mechanical Ventilator Mechanical Ventilator 06/18/20 02:45 62 24 60 06/18/20 01:04 63 22 60 06/18/20 00:00 98.0 63 17 110/64 (79) 99 06/18/20 00:00 61 06/18/20 00:00 Mechanical Ventilator Mechanical Ventilator 06/18/20 00:00 60 06/17/20 22:44 64 22 60 06/17/20 21:00 65 16 60 06/17/20 20:00 60 06/17/20 20:00 Mechanical Ventilator Mechanical Ventilator 06/17/20 20:00 63 06/17/20 20:00 97.9 66 20 119/79 (92) 99 06/17/20 18:41 63 19 60 06/17/20 16:00 80 06/17/20 16:00 Mechanical Ventilator Mechanical Ventilator 06/17/20 16:00 96.3 66 24 108/70 (83) 100 06/17/20 15:48 66 06/17/20 15:29 65 21 60 06/17/20 12:00 96.7 62 22 105/60 (75) 99 06/17/20 12:00 80 06/17/20 12:00 Mechanical Ventilator Mechanical Ventilator 06/17/20 11:48 62 06/17/20 11:17 68 18 60 06/17/20 08:00 96.3 65 20 116/75 (89) 100 06/17/20 08:00 Mechanical Ventilator Mechanical Ventilator 06/17/20 08:00 80 06/17/20 07:48 63 06/17/20 07:28 63 18 80 06/17/20 04:00 80 06/17/20 04:00 Mechanical Ventilator Mechanical Ventilator 06/17/20 04:00 98.0 64 18 110/69 (83) 100 06/17/20 04:00 63 06/17/20 03:11 65 21 80 06/17/20 00:00 68 06/17/20 00:00 98.1 70 20 123/69 (87) 100 06/17/20 00:00 Mechanical Ventilator Mechanical Ventilator 06/16/20 22:42 70 21 80 06/16/20 20:00 69 06/16/20 20:00 Mechanical Ventilator Mechanical Ventilator 06/16/20 20:00 97.9 71 14 106/64 (78) 100 06/16/20 20:00 80 06/16/20 19:57 70 20 80 06/16/20 16:00 96.9 70 17 115/71 (86) 100 06/16/20 16:00 Mechanical Ventilator Mechanical Ventilator 06/16/20 16:00 68 06/16/20 16:00 80 06/16/20 14:40 72 17 80 06/16/20 12:00 96.8 68 13 121/70 (87) 100 06/16/20 12:00 Mechanical Ventilator Mechanical Ventilator 06/16/20 12:00 67 06/16/20 12:00 80 06/16/20 11:06 68 18 80 06/16/20 08:00 80 06/16/20 08:00 97.0 70 18 125/77 (93) 100 06/16/20 08:00 70 06/16/20 08:00 Mechanical Ventilator Mechanical Ventilator 06/16/20 06:50 66 24 80 Intake and Output 06/17/20 06/18/20 19:00 07:00 Intake Total 450 ml 630 ml Output Total 1000 ml 200 ml Balance -550 ml 430 ml Free Water 250 ml 150 ml Tube Feeding 200 ml 480 ml Output Urine Total 1000 ml 200 ml # Bowel Movements 2 4 Labs Test 06/15/20 08:54 06/15/20 12:02 06/15/20 18:14 06/15/20 23:36 Arterial Blood pH 7.125 (7.350-7.450) Arterial Blood Partial Pressure CO2 88.3 mmHg (35.0-45.0) Arterial Blood Partial Pressure O2 67.8 mmHg (75.0-100.0) Arterial Blood HCO3 28.4 mmol/L (22.0-26.0) Arterial Blood Oxygen Saturation 91.4 % (95-100) Arterial Blood Base Excess -1.5 (-2-2) Joe Test Positive POC Whole Blood Glucose 163 MG/DL (74-106) 131 MG/DL (74-106) 94 MG/DL (74-106) Test 06/16/20 04:00 06/16/20 05:24 06/17/20 02:21 06/17/20 04:00 White Blood Count 14.5 K/UL (4.8-10.8) 12.4 K/UL (4.8-10.8) Red Blood Count 2.41 M/UL (4.70-6.10) 2.43 M/UL (4.70-6.10) Hemoglobin 7.0 G/DL (14.2-18.0) 7.1 G/DL (14.2-18.0) Hematocrit 23.6 % (42.0-52.0) 23.0 % (42.0-52.0) Mean Corpuscular Volume 98 FL (80-99) 94 FL (80-99) Mean Corpuscular Hemoglobin 29.1 PG (27.0-31.0) 29.2 PG (27.0-31.0) Mean Corpuscular Hemoglobin Concent 29.8 G/DL (32.0-36.0) 30.9 G/DL (32.0-36.0) Red Cell Distribution Width 14.8 % (11.6-14.8) 15.4 % (11.6-14.8) Platelet Count 373 K/UL (150-450) 340 K/UL (150-450) Mean Platelet Volume 7.7 FL (6.5-10.1) 8.3 FL (6.5-10.1) Neutrophils (%) (Auto) % (45.0-75.0) % (45.0-75.0) Lymphocytes (%) (Auto) % (20.0-45.0) % (20.0-45.0) Monocytes (%) (Auto) % (1.0-10.0) % (1.0-10.0) Eosinophils (%) (Auto) % (0.0-3.0) % (0.0-3.0) Basophils (%) (Auto) % (0.0-2.0) % (0.0-2.0) Differential Total Cells Counted 100 100 Neutrophils % (Manual) 78 % (45-75) 82 % (45-75) Lymphocytes % (Manual) 11 % (20-45) 9 % (20-45) Monocytes % (Manual) 6 % (1-10) 5 % (1-10) Eosinophils % (Manual) 5 % (0-3) 3 % (0-3) Basophils % (Manual) 0 % (0-2) 0 % (0-2) Band Neutrophils 0 % (0-8) 1 % (0-8) Platelet Estimate Adequate Adequate Platelet Morphology Normal Normal Hypochromasia 1+ Anisocytosis 1+ 1+ Sodium Level 141 MMOL/L (136-145) 143 MMOL/L (136-145) Potassium Level 4.2 MMOL/L (3.5-5.1) 3.8 MMOL/L (3.5-5.1) Chloride Level 104 MMOL/L (98-107) 106 MMOL/L (98-107) Carbon Dioxide Level 32 MMOL/L (21-32) 32 MMOL/L (21-32) Anion Gap 5 mmol/L (5-15) 5 mmol/L (5-15) Blood Urea Nitrogen 58 mg/dL (7-18) 65 mg/dL (7-18) Creatinine 2.6 MG/DL (0.55-1.30) 3.0 MG/DL (0.55-1.30) Estimat Glomerular Filtration Rate 31.4 mL/min (>60) 26.7 mL/min (>60) Glucose Level 99 MG/DL (74-106) 161 MG/DL (74-106) Uric Acid 6.8 MG/DL (2.6-7.2) Calcium Level 7.8 MG/DL (8.5-10.1) 7.7 MG/DL (8.5-10.1) Phosphorus Level 7.1 MG/DL (2.5-4.9) 7.0 MG/DL (2.5-4.9) Magnesium Level 2.2 MG/DL (1.8-2.4) 2.3 MG/DL (1.8-2.4) Total Bilirubin 0.3 MG/DL (0.2-1.0) 0.4 MG/DL (0.2-1.0) Aspartate Amino Transf (AST/SGOT) 110 U/L (15-37) 353 U/L (15-37) Alanine Aminotransferase (ALT/SGPT) 148 U/L (12-78) 229 U/L (12-78) Alkaline Phosphatase 183 U/L (46-116) 384 U/L (46-116) C-Reactive Protein, Quantitative 13.2 mg/dL (0.00-0.90) 12.9 mg/dL (0.00-0.90) Pro-B-Type Natriuretic Peptide 34129 pg/mL (0-125) Total Protein 7.5 G/DL (6.4-8.2) 7.6 G/DL (6.4-8.2) Albumin 1.7 G/DL (3.4-5.0) 1.6 G/DL (3.4-5.0) Globulin 5.8 g/dL 6.0 g/dL Albumin/Globulin Ratio 0.3 (1.0-2.7) 0.3 (1.0-2.7) Random Vancomycin Level 32.5 ug/mL 34.4 ug/mL POC Whole Blood Glucose 110 MG/DL (74-106) 142 MG/DL (74-106) Test 06/17/20 09:33 06/17/20 12:36 06/17/20 18:00 06/18/20 00:05 Arterial Blood pH 7.191 (7.350-7.450) Arterial Blood Partial Pressure CO2 91.2 mmHg (35.0-45.0) Arterial Blood Partial Pressure O2 179.9 mmHg (75.0-100.0) Arterial Blood HCO3 34.1 mmol/L (22.0-26.0) Arterial Blood Oxygen Saturation 98.2 % (95-100) Arterial Blood Base Excess 4.9 (-2-2) Joe Test Positive POC Whole Blood Glucose 155 MG/DL (74-106) 136 MG/DL (74-106) 145 MG/DL (74-106) Test 06/18/20 03:40 06/18/20 05:55 White Blood Count 11.9 K/UL (4.8-10.8) Red Blood Count 2.33 M/UL (4.70-6.10) Hemoglobin 6.7 G/DL (14.2-18.0) Hematocrit 22.7 % (42.0-52.0) Mean Corpuscular Volume 98 FL (80-99) Mean Corpuscular Hemoglobin 29.0 PG (27.0-31.0) Mean Corpuscular Hemoglobin Concent 29.7 G/DL (32.0-36.0) Red Cell Distribution Width 14.9 % (11.6-14.8) Platelet Count 279 K/UL (150-450) Mean Platelet Volume 8.0 FL (6.5-10.1) Neutrophils (%) (Auto) % (45.0-75.0) Lymphocytes (%) (Auto) % (20.0-45.0) Monocytes (%) (Auto) % (1.0-10.0) Eosinophils (%) (Auto) % (0.0-3.0) Basophils (%) (Auto) % (0.0-2.0) POC Whole Blood Glucose 153 MG/DL (74-106) Height (Feet): 5 Height (Inches): 8.00 Weight (Pounds): 143 Objective PHYSICAL EXAMINATION: VITAL SIGNS: reviewed HEAD AND NECK: Show status post tracheostomy. vent+ LUNGS: Coarse rhonchi and basilar rales. CARDIOVASCULAR: Shows irregular S1 and S2 with no gallop. ABDOMEN: Soft. Status post G-tube. EXTREMITIES: No pitting edema.++Left Jose Epperson MD Jun 18, 2020 06:36
[2020-06-18 06:39] LABS: ALBUMIN 1.5 G/DL (3.4-5.0); ALBUMIN/GLOBULIN RATIO 0.3 (1.0-2.7); BILIRUBIN,TOTAL 0.3 MG/DL (0.2-1.0); CALCIUM 7.2 MG/DL (8.5-10.1); CREATININE 3.2 MG/DL (0.55-1.30); PHOSPHORUS 5.5 MG/DL (2.5-4.9); POTASSIUM 3.3 MMOL/L (3.5-5.1)
--- NOTE | 2020-06-18 06:43 | NUR ---
NURSE NOTES: WCP initiated on L lateral knee DTI found. Picture taken and uploaded. Will continue to monitor.
--- NOTE | 2020-06-18 07:17 | NUR ---
NURSE HAND-OFF REPORT: Important Events on Shift: Patient Status: No acute distress at this time. Diet: Nepro at 40cc/hr Pending Orders: n Pending Results/Labs:n Pending MD notification:[] Latest Vital Signs: Temperature 97.1 , Pulse 60 , B/P 115 /70 , Respiratory Rate 20 , O2 SAT 100 , , O2 Flow Rate . Vital Sign Comment: [] EKG Rhythm: Sinus Rhythm Rhythm change?: N MD Notified?: Jennifer Lipscomb MD Response: No New Orders Received Latest Santiago Fall Score: 35 Fall Risk: Medium Risk Safety Measures: Call light Within Reach, Bed Alarm Zone 1, Side Rails Side Rails x3, Bed position Low and Locked. Fall Precautions: Yellow Socks Yellow Gown Door Sign Patient Fall Education Report given to MAX Greer.
--- NOTE | 2020-06-18 07:30 | NUR ---
NURSE NOTES: Received report from MAX Christensen. Patient is laying in bed and responded to name when called. Patient does not have any pain or distress. Patient has a PICC line on R upper arm and no signs of infiltration, swelling, or warmth. On nephro running 40cc and is tolerating well. GT is intact. Patient is trach-vent S8, AC16, Vt 500, FiO2 60%, PEEP of 8 and is tolerating well. Oxygen saturation 97-99% Sinus Rhythm. Bed is on the lowest position, locked, side rails are up (2x), and call light within reach. Patient will continue to be monitored.
[2020-06-18] MEDS: Ascorbic Acid 500mg tab ORAL SCH (08:39)
[2020-06-18] MEDS: Pantoprazole Inj IVP SCH ×2 (08:39→20:57)
--- NOTE | 2020-06-18 09:36 | Nephrology Progress Note ---
Assessment/Plan Problem List: (1) KERRI (acute kidney injury) (2) Acute respiratory failure (3) Chronic respiratory failure (4) Anemia (5) Hyperkalemia Assessment Acute on chronic renal failure Anemia Respiratory failure acute on chronic Respiratory acidosis and hypoxia Hyperkalemia Plan June 18: Labs are reviewed. Hemoglobin lower. Creatinine higher. ABG not done yet. Patient full code. Continue per consultants. June 17: Labs reviewed. Hemoglobin low. Creatinine up to 3. Phosphorus levels elevated. Will start Amphojel via GT tube as a phosphorus binder. Monitor renal parameters. Check ABG. Continue per consultants. June 16: Labs reviewed. Serum creatinine mariana to 2.6. Abnormal electrolytes now normalized. Continue to monitor renal parameters and avoid nephrotoxic's. Continue to adjust pulmonary status as possible. June 15: ABG pH of 7.1. 2D echo suggestive of ejection fraction of 50%. Labs reviewed. Serum creatinine mariana. Will hold IV Lasix. Will give Kayexalate for high potassium and 1 amp of sodium bicarb. Albumin IV bolus given. Continue per consultants. Continue to monitor renal parameters. Kidney ultrasound ordered. June 14: As follow Pulmonary evaluation Sparrow catheter Hold IV fluid IV fluid, until 2D echo results available Kayexalate for high potassium IV Protonix 2D echocardiogram Anemia work-up More labs ordered Subjective ROS Limited/Unobtainable: Yes Objective Objective Last 24 Hour Vital Signs Date Time Temp Pulse Resp B/P (MAP) Pulse Ox O2 Delivery O2 Flow Rate FiO2 06/18/20 08:00 Mechanical Ventilator Mechanical Ventilator 06/18/20 08:00 96.0 65 20 120/74 (89) 99 06/18/20 08:00 60 06/18/20 04:33 60 20 60 06/18/20 04:00 97.1 61 20 115/70 (85) 100 06/18/20 04:00 62 06/18/20 04:00 60 06/18/20 04:00 Mechanical Ventilator Mechanical Ventilator 06/18/20 02:45 62 24 60 06/18/20 01:04 63 22 60 06/18/20 00:00 98.0 63 17 110/64 (79) 99 06/18/20 00:00 61 06/18/20 00:00 Mechanical Ventilator Mechanical Ventilator 06/18/20 00:00 60 06/17/20 22:44 64 22 60 06/17/20 21:00 65 16 60 06/17/20 20:00 60 06/17/20 20:00 Mechanical Ventilator Mechanical Ventilator 06/17/20 20:00 63 06/17/20 20:00 97.9 66 20 119/79 (92) 99 06/17/20 18:41 63 19 60 06/17/20 16:00 80 06/17/20 16:00 Mechanical Ventilator Mechanical Ventilator 06/17/20 16:00 96.3 66 24 108/70 (83) 100 06/17/20 15:48 66 06/17/20 15:29 65 21 60 06/17/20 12:00 96.7 62 22 105/60 (75) 99 06/17/20 12:00 80 06/17/20 12:00 Mechanical Ventilator Mechanical Ventilator 06/17/20 11:48 62 06/17/20 11:17 68 18 60 Intake and Output 06/17/20 06/18/20 19:00 07:00 Intake Total 450 ml 630 ml Output Total 1000 ml 200 ml Balance -550 ml 430 ml Free Water 250 ml 150 ml Tube Feeding 200 ml 480 ml Output Urine Total 1000 ml 200 ml # Bowel Movements 2 4 Current Medications Medications (Trade) Dose Ordered Sig/Maryjane Route PRN Reason Start Time Stop Time Status Last Admin Dose Admin Acetaminophen (Tylenol) 650 mg Q4HR PRN GT FEVER 06/14/20 09:45 07/14/20 09:44 06/18/20 04:15 Aluminum Hydroxide (Amphojel) 1,920 mg Q6H GT 06/17/20 10:00 07/17/20 09:59 06/18/20 08:48 Ascorbic Acid (Vitamin C) 500 mg DAILY ORAL 06/16/20 09:00 07/16/20 08:59 06/18/20 08:39 Chlorhexidine Gluconate (Inés-Hex 2%) 1 applic DAILY@2000 TOPIC 06/14/20 20:00 09/12/20 19:59 06/17/20 20:21 Dextrose (Dextrose 50%) 25 ml Q30M PRN IV Hypoglycemia 06/14/20 03:45 09/12/20 03:44 Dextrose (Dextrose 50%) 50 ml Q30M PRN IV Hypoglycemia 06/14/20 03:45 09/12/20 03:44 Epoetin Bonilla (Epoetin Bonilla-EPBX(NON ESRD)) 10,000 unit TUE-TUE-TUE SUBQ 06/18/20 21:00 09/16/20 20:59 Meropenem 500 mg/ Sodium Chloride 55 ml @ 110 mls/hr Q12HR@0600,1800 IVPB 06/18/20 18:00 06/23/20 17:59 Pantoprazole (Protonix) 40 mg EVERY 12 HOURS IVP 06/14/20 11:45 07/14/20 11:44 06/18/20 08:39 Vancomycin HCl ([facility] pharmacy to dose) 1 ea DAILY PRN MISC Per rx protocol 06/14/20 12:15 07/14/20 12:14 Laboratory Tests 06/17/20 09:33: Arterial Blood pH 7.191*L, Arterial Blood Partial Pressure CO2 91.2*H, Arterial Blood Partial Pressure O2 179.9H, Arterial Blood HCO3 34.1H, Arterial Blood Oxygen Saturation 98.2, Arterial Blood Base Excess 4.9H, Joe Test Positive 06/17/20 12:36: POC Whole Blood Glucose 155H 06/17/20 18:00: POC Whole Blood Glucose 136H 06/18/20 00:05: POC Whole Blood Glucose 145H 06/18/20 03:40: White Blood Count 11.9H, Red Blood Count 2.33L, Hemoglobin 6.7*L, Hematocrit 22.7L, Mean Corpuscular Volume 98, Mean Corpuscular Hemoglobin 29.0, Mean Corpuscular Hemoglobin Concent 29.7L, Red Cell Distribution Width 14.9H, Platelet Count 279, Mean Platelet Volume 8.0, Neutrophils (%) (Auto) , Lymphocytes (%) (Auto) , Monocytes (%) (Auto) , Eosinophils (%) (Auto) , Basophils (%) (Auto) , Neutrophils % (Manual) [Pending], Lymphocytes % (Manual) [Pending], Platelet Estimate [Pending], Platelet Morphology [Pending], Sodium Level 142, Potassium Level 3.3L, Chloride Level 107, Carbon Dioxide Level 31, Anion Gap 4L, Blood Urea Nitrogen 68H, Creatinine 3.2H, Estimat Glomerular Filtration Rate 24.7, Glucose Level 133H, Uric Acid 7.2, Calcium Level 7.2L, Phosphorus Level 5.5H, Total Bilirubin 0.3, Aspartate Amino Transf (AST/SGOT) 512H, Alanine Aminotransferase (ALT/SGPT) 401H, Alkaline Phosphatase 628H, C- Reactive Protein, Quantitative 9.8H, Total Protein 7.0, Albumin 1.5L, Globulin 5.5, Albumin/Globulin Ratio 0.3L 06/18/20 05:55: POC Whole Blood Glucose 153H 06/18/20 09:04: Arterial Blood pH 7.235*L, Arterial Blood Partial Pressure CO2 81.8*H, Arterial Blood Partial Pressure O2 78.0, Arterial Blood HCO3 33.9H, Arterial Blood Oxygen Saturation 94.4L, Arterial Blood Base Excess 5.4H, Joe Test Positive Height (Feet): 5 Height (Inches): 8.00 Weight (Pounds): 143 General Appearance: lethargic EENT: other - Trach to vent Cardiovascular: normal rate Respiratory/Chest: decreased breath sounds Abdomen: distended Leonidas Honeycutt MD Jun 18, 2020 09:36
--- NOTE | 2020-06-18 09:49 | Pulmonology Progress Note ---
Subjective ROS Limited/Unobtainable: Yes Interval Events: None new; remains on vent Constitutional: Denies: fever HEENT: Repors: no symptoms Respiratory: Reports: no symptoms Cardiovascular: Reports: no symptoms Gastrointestinal/Abdominal: Reports: no symptoms Genitourinary: Reports: no symptoms Allergies: Coded Allergies: No Known Allergies (Unverified , 06/13/20) Objective Last 24 Hour Vital Signs Date Time Temp Pulse Resp B/P (MAP) Pulse Ox O2 Delivery O2 Flow Rate FiO2 06/18/20 08:00 Mechanical Ventilator Mechanical Ventilator 06/18/20 08:00 96.0 65 20 120/74 (89) 99 06/18/20 08:00 60 06/18/20 04:33 60 20 60 06/18/20 04:00 97.1 61 20 115/70 (85) 100 06/18/20 04:00 62 06/18/20 04:00 60 06/18/20 04:00 Mechanical Ventilator Mechanical Ventilator 06/18/20 02:45 62 24 60 06/18/20 01:04 63 22 60 06/18/20 00:00 98.0 63 17 110/64 (79) 99 06/18/20 00:00 61 06/18/20 00:00 Mechanical Ventilator Mechanical Ventilator 06/18/20 00:00 60 06/17/20 22:44 64 22 60 06/17/20 21:00 65 16 60 06/17/20 20:00 60 06/17/20 20:00 Mechanical Ventilator Mechanical Ventilator 06/17/20 20:00 63 06/17/20 20:00 97.9 66 20 119/79 (92) 99 06/17/20 18:41 63 19 60 06/17/20 16:00 80 06/17/20 16:00 Mechanical Ventilator Mechanical Ventilator 06/17/20 16:00 96.3 66 24 108/70 (83) 100 06/17/20 15:48 66 06/17/20 15:29 65 21 60 06/17/20 12:00 96.7 62 22 105/60 (75) 99 06/17/20 12:00 80 06/17/20 12:00 Mechanical Ventilator Mechanical Ventilator 06/17/20 11:48 62 06/17/20 11:17 68 18 60 Intake and Output 06/17/20 06/18/20 19:00 07:00 Intake Total 450 ml 630 ml Output Total 1000 ml 200 ml Balance -550 ml 430 ml Free Water 250 ml 150 ml Tube Feeding 200 ml 480 ml Output Urine Total 1000 ml 200 ml # Bowel Movements 2 4 General Appearance: no acute distress HEENT: status post trach Respiratory: chest wall non-tender, lungs clear Cardiovascular: normal peripheral pulses, normal rate Abdomen: normal bowel sounds Extremities: no cyanosis Microbiology Date/Time Source Procedure Growth Status 06/16/20 20:00 Sputum Gram Stain - Final Resulted 06/16/20 20:00 Sputum Culture - Preliminary Gram Negative Bacillus 1 Resulted Laboratory Tests 06/17/20 12:36: POC Whole Blood Glucose 155H 06/17/20 18:00: POC Whole Blood Glucose 136H 06/18/20 00:05: POC Whole Blood Glucose 145H 06/18/20 03:40: White Blood Count 11.9H, Red Blood Count 2.33L, Hemoglobin 6.7*L, Hematocrit 22.7L, Mean Corpuscular Volume 98, Mean Corpuscular Hemoglobin 29.0, Mean Corpuscular Hemoglobin Concent 29.7L, Red Cell Distribution Width 14.9H, Platelet Count 279, Mean Platelet Volume 8.0, Neutrophils (%) (Auto) , Lymphocytes (%) (Auto) , Monocytes (%) (Auto) , Eosinophils (%) (Auto) , Basophils (%) (Auto) , Neutrophils % (Manual) [Pending], Lymphocytes % (Manual) [Pending], Platelet Estimate [Pending], Platelet Morphology [Pending], Sodium [place] 142, Potassium Level 3.3L, Chloride Level 107, Carbon Dioxide Level 31, Anion Gap 4L, Blood Urea Nitrogen 68H, Creatinine 3.2H, Estimat Glomerular Filtration Rate 24.7, Glucose Level 133H, Uric Acid 7.2, Calcium Level 7.2L, Phosphorus Level 5.5H, Total Bilirubin 0.3, Aspartate Amino Transf (AST/SGOT) 512H, Alanine Aminotransferase (ALT/SGPT) 401H, Alkaline Phosphatase 628H, C- Reactive Protein, Quantitative 9.8H, Total Protein 7.0, Albumin 1.5L, Globulin 5.5, Albumin/Globulin Ratio 0.3L 06/18/20 05:55: POC Whole Blood Glucose 153H 06/18/20 09:04: Arterial Blood pH 7.235*L, Arterial Blood Partial Pressure CO2 81.8*H, Arterial Blood Partial Pressure O2 78.0, Arterial Blood HCO3 33.9H, Arterial Blood Oxygen Saturation 94.4L, Arterial Blood Base Excess 5.4H, Joe Test Positive Current Medications Medications (Trade) Dose Ordered Sig/Maryjane Route PRN Reason Start Time Stop Time Status Last Admin Dose Admin Acetaminophen (Tylenol) 650 mg Q4HR PRN GT FEVER 06/14/20 09:45 07/14/20 09:44 06/18/20 04:15 Aluminum Hydroxide (Amphojel) 1,920 mg Q6H GT 06/17/20 10:00 07/17/20 09:59 06/18/20 08:48 Ascorbic Acid (Vitamin C) 500 mg DAILY ORAL 06/16/20 09:00 07/16/20 08:59 06/18/20 08:39 Chlorhexidine Gluconate (Inés-Hex 2%) 1 applic DAILY@2000 TOPIC 06/14/20 20:00 09/12/20 19:59 06/17/20 20:21 Dextrose (Dextrose 50%) 25 ml Q30M PRN IV Hypoglycemia 06/14/20 03:45 09/12/20 03:44 Dextrose (Dextrose 50%) 50 ml Q30M PRN IV Hypoglycemia 06/14/20 03:45 09/12/20 03:44 Epoetin Bonilla (Epoetin Bonilla-EPBX(NON ESRD)) 10,000 unit TUE-TUE-TUE SUBQ 06/18/20 21:00 09/16/20 20:59 Meropenem 500 mg/ Sodium Chloride 55 ml @ 110 mls/hr Q12HR@0600,1800 IVPB 06/18/20 18:00 06/23/20 17:59 Pantoprazole (Protonix) 40 mg EVERY 12 HOURS IVP 06/14/20 11:45 07/14/20 11:44 06/18/20 08:39 Vancomycin HCl ([facility] pharmacy to dose) 1 ea DAILY PRN MISC Per rx protocol 06/14/20 12:15 07/14/20 12:14 Assessment/Plan Problems: (1) Acute respiratory failure Assessment/Plan IMPRESSION: 1. Chronic respiratory failure. 2. Hypoxemia. 3. Respiratory acidosis. 4. Anemia. 5. Leukocytosis. 6. DVT DISCUSSION: The patient's x-ray is markedly abnormal with bilateral infiltrates. This could represent pulmonary edema. attempts to diurese have improved oxygenation how not succeeded. I suspect he has pulmonary fibrosis. Latest CXR is unchanged COVID 19 pcr and antigen both negative No anticoagulation for DVT due to anemia Continue assist-control mechanical ventilation; currently FiO2 reduced to 60%; SaO2 100%, broad-spectrum antibiotics. Transfusion as needed. I will follow carefully. Hugo Carl Omar Syed MD Jun 18, 2020 09:49
[2020-06-18] MEDS ORDERED: NS 275ml ONE ×2 (10:11→14:30)
--- NOTE | 2020-06-18 11:11 | NUR ---
NURSE NOTES: Started blood transfusion at 11:11 of 250 mL PRBC. Patient's vital signs before transfusion was stable. Vital signs 15 minutes after the transfusion were stable, patient did not complain any flank pain, shortness of breath, and any other adverse reactions. Patient will continue to be monitored.
--- NOTE | 2020-06-18 12:34 | Infectious Diseases Prog Note ---
Assessment/Plan Assessment/Plan IMPRESSION: Pneumonia COVID19 X 2: negative Ventilator-dependent respiratory failure, Diabetes mellitus type 2, Hypertension, History of left BKA, Hypertension, anemia, Major depression, Pressure ulcer, Elevated transaminase, Hyperkalemia. Anemia R leg DVT Sacral osteomyelitis Severe anemia RECOMMENDATION: Continue meropenem for now Continue IV vancomycin until 07/18 Will follow up the cultures. Will have IVC filter placement today Subjective ROS Limited/Unobtainable: Yes Constitutional: Reports: other - feels cold Respiratory: Reports: no symptoms Hematologic: Reports: other - receiving blood transfusion Allergies: Coded Allergies: No Known Allergies (Unverified , 06/13/20) Objective Last 24 Hour Vital Signs Date Time Temp Pulse Resp B/P (MAP) Pulse Ox O2 Delivery O2 Flow Rate FiO2 06/18/20 11:17 67 19 45 06/18/20 09:15 62 18 60 06/18/20 08:00 Mechanical Ventilator Mechanical Ventilator 06/18/20 08:00 96.0 65 20 120/74 (89) 99 06/18/20 08:00 60 06/18/20 07:47 63 06/18/20 07:29 64 18 60 06/18/20 04:33 60 20 60 06/18/20 04:00 97.1 61 20 115/70 (85) 100 06/18/20 04:00 62 06/18/20 04:00 60 06/18/20 04:00 Mechanical Ventilator Mechanical Ventilator 06/18/20 02:45 62 24 60 06/18/20 01:04 63 22 60 06/18/20 00:00 98.0 63 17 110/64 (79) 99 06/18/20 00:00 61 06/18/20 00:00 Mechanical Ventilator Mechanical Ventilator 06/18/20 00:00 60 06/17/20 22:44 64 22 60 06/17/20 21:00 65 16 60 06/17/20 20:00 60 06/17/20 20:00 Mechanical Ventilator Mechanical Ventilator 06/17/20 20:00 63 06/17/20 20:00 97.9 66 20 119/79 (92) 99 06/17/20 18:41 63 19 60 06/17/20 16:00 80 06/17/20 16:00 Mechanical Ventilator Mechanical Ventilator 06/17/20 16:00 96.3 66 24 108/70 (83) 100 06/17/20 15:48 66 06/17/20 15:29 65 21 60 Height (Feet): 5 Height (Inches): 8.00 Weight (Pounds): 143 HEENT: status post trach Respiratory/Chest: other - on ventilator Cardiovascular: normal rate Abdomen: soft, non tender, other - GT in place Extremities: other - legs edema, left BKA Neurologic/Psychiatric: alert, responsive Microbiology Date/Time Source Procedure Growth Status 06/16/20 20:00 Sputum Gram Stain - Final Resulted 06/16/20 20:00 Sputum Culture - Preliminary Gram Negative Bacillus 1 Resulted Laboratory Tests Test 06/17/20 12:36 06/17/20 18:00 06/18/20 00:05 06/18/20 03:40 POC Whole Blood Glucose 155 MG/DL (74-106) H 136 MG/DL (74-106) H 145 MG/DL (74-106) H White Blood Count 11.9 K/UL (4.8-10.8) H Red Blood Count 2.33 M/UL (4.70-6.10) L Hemoglobin 6.7 G/DL (14.2-18.0) *L Hematocrit 22.7 % (42.0-52.0) L Mean Corpuscular Volume 98 FL (80-99) Mean Corpuscular Hemoglobin 29.0 PG (27.0-31.0) Mean Corpuscular Hemoglobin Concent 29.7 G/DL (32.0-36.0) L Red Cell Distribution Width 14.9 % (11.6-14.8) H Platelet Count 279 K/UL (150-450) Mean Platelet Volume 8.0 FL (6.5-10.1) Neutrophils (%) (Auto) % (45.0-75.0) Lymphocytes (%) (Auto) % (20.0-45.0) Monocytes (%) (Auto) % (1.0-10.0) Eosinophils (%) (Auto) % (0.0-3.0) Basophils (%) (Auto) % (0.0-2.0) Differential Total Cells Counted 100 Neutrophils % (Manual) 82 % (45-75) H Lymphocytes % (Manual) 8 % (20-45) L Monocytes % (Manual) 6 % (1-10) Eosinophils % (Manual) 4 % (0-3) H Basophils % (Manual) 0 % (0-2) Band Neutrophils 0 % (0-8) Nucleated Red Blood Cells 1 /100 WBC Platelet Estimate Adequate Platelet Morphology Normal Hypochromasia 2+ Anisocytosis 1+ Macrocytosis 1+ Sodium Level 142 MMOL/L (136-145) Potassium Level 3.3 MMOL/L (3.5-5.1) L Chloride Level 107 MMOL/L (98-107) Carbon Dioxide Level 31 MMOL/L (21-32) Anion Gap 4 mmol/L (5-15) L Blood Urea Nitrogen 68 mg/dL (7-18) H Creatinine 3.2 MG/DL (0.55-1.30) H Estimat Glomerular Filtration Rate 24.7 mL/min (>60) Glucose Level 133 MG/DL (74-106) H Uric Acid 7.2 MG/DL (2.6-7.2) Calcium Level 7.2 MG/DL (8.5-10.1) L Phosphorus Level 5.5 MG/DL (2.5-4.9) H Total Bilirubin 0.3 MG/DL (0.2-1.0) Aspartate Amino Transf (AST/SGOT) 512 U/L (15-37) H Alanine Aminotransferase (ALT/SGPT) 401 U/L (12-78) H Alkaline Phosphatase 628 U/L (46-116) H C-Reactive Protein, Quantitative 9.8 mg/dL (0.00-0.90) H Total Protein 7.0 G/DL (6.4-8.2) Albumin 1.5 G/DL (3.4-5.0) L Globulin 5.5 g/dL Albumin/Globulin Ratio 0.3 (1.0-2.7) L Test 06/18/20 05:55 06/18/20 09:04 06/18/20 12:29 POC Whole Blood Glucose 153 MG/DL (74-106) H Pending Arterial Blood pH 7.235 (7.350-7.450) Arterial Blood Partial Pressure CO2 81.8 mmHg (35.0-45.0) *H Arterial Blood Partial Pressure O2 78.0 mmHg (75.0-100.0) Arterial Blood HCO3 33.9 mmol/L (22.0-26.0) H Arterial Blood Oxygen Saturation 94.4 % (95-100) L Arterial Blood Base Excess 5.4 (-2-2) H Joe Test Positive Current Medications Medications (Trade) Dose Ordered Sig/Maryjane Route PRN Reason Start Time Stop Time Status Last Admin Dose Admin Acetaminophen (Tylenol) 650 mg Q4HR PRN GT FEVER 06/14/20 09:45 07/14/20 09:44 06/18/20 04:15 Aluminum Hydroxide (Amphojel) 1,920 mg Q6H GT 06/17/20 10:00 07/17/20 09:59 06/18/20 08:48 Ascorbic Acid (Vitamin C) 500 mg DAILY ORAL 06/16/20 09:00 07/16/20 08:59 06/18/20 08:39 Chlorhexidine Gluconate (Inés-Hex 2%) 1 applic DAILY@1999 TOPIC 06/14/20 20:00 09/12/20 19:59 06/17/20 20:21 Dextrose (Dextrose 50%) 25 ml Q30M PRN IV Hypoglycemia 06/14/20 03:45 09/12/20 03:44 Dextrose (Dextrose 50%) 50 ml Q30M PRN IV Hypoglycemia 06/14/20 03:45 09/12/20 03:44 Epoetin Bonilla (Epoetin Bonilla-EPBX(NON ESRD)) 10,000 unit TUE-TUE-TUE SUBQ 06/18/20 21:00 09/16/20 20:59 Meropenem 500 mg/ Sodium Chloride 55 ml @ 110 mls/hr Q12HR@0600,1800 IVPB 06/18/20 18:00 06/23/20 17:59 Pantoprazole (Protonix) 40 mg EVERY 12 HOURS IVP 06/14/20 11:45 07/14/20 11:44 06/18/20 08:39 Vancomycin HCl ([facility] pharmacy to dose) 1 ea DAILY PRN MISC Per rx protocol 06/14/20 12:15 07/14/20 12:14 Paul Amador MD Jun 18, 2020 12:34
--- NOTE | 2020-06-18 12:39 | Cardiac Electrophysiology PN ---
Assessment/Plan Assessment/Plan 1. Vent-dependent respirator failure. S/P tracheostomy. Chest x-ray is suspicious for extensive bilateral pneumonia or ARDS. His creatinine is 2.6. Off isolation EF 50%. Ruled out for [place]. BNP 16980. On iv Abx 2. Tachycardia, likely due to respiratory failure. 3. Right femoral vein DVT. IVC filter today pending 4. Dysphagia, status post PEG placement. 5. Renal failure. Further evaluation by Dr. Honeycutt. 6. Severe anemia, getting PRBC today DW RN Subjective Subjective On the Vent off isolation . On 60% Fio2 and PEEP. NPO for IVC filter today at 1 pm. Hb 6.7 and will be getting 1 unit PRBC Objective Last 24 Hour Vital Signs Date Time Temp Pulse Resp B/P (MAP) Pulse Ox O2 Delivery O2 Flow Rate FiO2 06/18/20 11:17 67 19 45 06/18/20 09:15 62 18 60 06/18/20 08:00 Mechanical Ventilator Mechanical Ventilator 06/18/20 08:00 96.0 65 20 120/74 (89) 99 06/18/20 08:00 60 06/18/20 07:47 63 06/18/20 07:29 64 18 60 06/18/20 04:33 60 20 60 06/18/20 04:00 97.1 61 20 115/70 (85) 100 06/18/20 04:00 62 06/18/20 04:00 60 06/18/20 04:00 Mechanical Ventilator Mechanical Ventilator 06/18/20 02:45 62 24 60 06/18/20 01:04 63 22 60 06/18/20 00:00 98.0 63 17 110/64 (79) 99 06/18/20 00:00 61 06/18/20 00:00 Mechanical Ventilator Mechanical Ventilator 06/18/20 00:00 60 06/17/20 22:44 64 22 60 06/17/20 21:00 65 16 60 06/17/20 20:00 60 06/17/20 20:00 Mechanical Ventilator Mechanical Ventilator 06/17/20 20:00 63 06/17/20 20:00 97.9 66 20 119/79 (92) 99 06/17/20 18:41 63 19 60 06/17/20 16:00 80 06/17/20 16:00 Mechanical Ventilator Mechanical Ventilator 06/17/20 16:00 96.3 66 24 108/70 (83) 100 06/17/20 15:48 66 06/17/20 15:29 65 21 60 Intake and Output 06/17/20 06/18/20 19:00 07:00 Intake Total 450 ml 630 ml Output Total 1000 ml 200 ml Balance -550 ml 430 ml Free Water 250 ml 150 ml Tube Feeding 200 ml 480 ml Output Urine Total 1000 ml 200 ml # Bowel Movements 2 4 Laboratory Tests Test 06/17/20 12:36 06/17/20 18:00 06/18/20 00:05 06/18/20 03:40 POC Whole Blood Glucose 155 MG/DL (74-106) H 136 MG/DL (74-106) H 145 MG/DL (74-106) H White Blood Count 11.9 K/UL (4.8-10.8) H Red Blood Count 2.33 M/UL (4.70-6.10) L Hemoglobin 6.7 G/DL (14.2-18.0) *L Hematocrit 22.7 % (42.0-52.0) L Mean Corpuscular Volume 98 FL (80-99) Mean Corpuscular Hemoglobin 29.0 PG (27.0-31.0) Mean Corpuscular Hemoglobin Concent 29.7 G/DL (32.0-36.0) L Red Cell Distribution Width 14.9 % (11.6-14.8) H Platelet Count 279 K/UL (150-450) Mean Platelet Volume 8.0 FL (6.5-10.1) Neutrophils (%) (Auto) % (45.0-75.0) Lymphocytes (%) (Auto) % (20.0-45.0) Monocytes (%) (Auto) % (1.0-10.0) Eosinophils (%) (Auto) % (0.0-3.0) Basophils (%) (Auto) % (0.0-2.0) Differential Total Cells Counted 100 Neutrophils % (Manual) 82 % (45-75) H Lymphocytes % (Manual) 8 % (20-45) L Monocytes % (Manual) 6 % (1-10) Eosinophils % (Manual) 4 % (0-3) H Basophils % (Manual) 0 % (0-2) Band Neutrophils 0 % (0-8) Nucleated Red Blood Cells 1 /100 WBC Platelet Estimate Adequate Platelet Morphology Normal Hypochromasia 2+ Anisocytosis 1+ Macrocytosis 1+ Sodium Level 142 MMOL/L (136-145) Potassium Level 3.3 MMOL/L (3.5-5.1) L Chloride Level 107 MMOL/L (98-107) Carbon Dioxide Level 31 MMOL/L (21-32) Anion Gap 4 mmol/L (5-15) L Blood Urea Nitrogen 68 mg/dL (7-18) H Creatinine 3.2 MG/DL (0.55-1.30) H Estimat Glomerular Filtration Rate 24.7 mL/min (>60) Glucose Level 133 MG/DL (74-106) H Uric Acid 7.2 MG/DL (2.6-7.2) Calcium Level 7.2 MG/DL (8.5-10.1) L Phosphorus Level 5.5 MG/DL (2.5-4.9) H Total Bilirubin 0.3 MG/DL (0.2-1.0) Aspartate Amino Transf (AST/SGOT) 512 U/L (15-37) H Alanine Aminotransferase (ALT/SGPT) 401 U/L (12-78) H Alkaline Phosphatase 628 U/L (46-116) H C-Reactive Protein, Quantitative 9.8 mg/dL (0.00-0.90) H Total Protein 7.0 G/DL (6.4-8.2) Albumin 1.5 G/DL (3.4-5.0) L Globulin 5.5 g/dL Albumin/Globulin Ratio 0.3 (1.0-2.7) L Test 06/18/20 05:55 06/18/20 09:04 06/18/20 12:29 POC Whole Blood Glucose 153 MG/DL (74-106) H 151 MG/DL (74-106) H Arterial Blood pH 7.235 (7.350-7.450) Arterial Blood Partial Pressure CO2 81.8 mmHg (35.0-45.0) *H Arterial Blood Partial Pressure O2 78.0 mmHg (75.0-100.0) Arterial Blood HCO3 33.9 mmol/L (22.0-26.0) H Arterial Blood Oxygen Saturation 94.4 % (95-100) L Arterial Blood Base Excess 5.4 (-2-2) H Joe Test Positive Microbiology Date/Time Source Procedure Growth Status 06/16/20 20:00 Sputum Gram Stain - Final Resulted 06/16/20 20:00 Sputum Culture - Preliminary Gram Negative Bacillus 1 Resulted Objective HEAD AND NECK: Status post tracheostomy. LUNGS: Coarse rhonchi and basilar rales. CARDIOVASCULAR: Shows irregular S1 and S2 with no gallop. ABDOMEN: Soft. Status post G-tube. EXTREMITIES: No pitting edema. Lance Mcguire MD Jun 18, 2020 12:39
--- NOTE | 2020-06-18 13:08 | Diagnostic Imaging Report ---
Indication: Abnormal liver function tests, abnormal renal function tests Technique: Romero-scale and duplex images of the upper abdomen were obtained Comparison: none Findings: Gallbladder demonstrates no stones. However, the gallbladder wall is thickened and there is some pericholecystic edema, gallbladder wall measuring 4 mm thick. Unable to assess sonographic Hill's sign. Common bile duct measures 5 mm in diameter. No intrahepatic biliary ductal dilatation. Liver demonstrates normal echogenicity, no focal abnormality. Portal vein and hepatic veins are patent. Pancreas is unremarkable. Spleen is unremarkable. Left kidney measures 11.9 cm in length. Right kidney measures 12 cm length. Both kidneys demonstrate markedly increased echogenicity. There is no hydronephrosis. No focal abnormality . Non-aneurysmal abdominal aorta . There is free intraperitoneal fluid present. There are bilateral pleural effusions. Prominent bowel loops are demonstrated Impression: Evidence of anasarca, with bilateral pleural effusions and ascites Gallbladder wall thickening in the absence of gallstones, suspect related to the above. The possibility of acalculous acute cholecystitis should also be considered, however, and correlation with clinical findings is recommended. No evidence of biliary ductal dilatation Echogenic kidneys bilaterally, consistent with medical renal disease. No evidence of hydronephrosis Prominent bowel loops. Nonspecific.
--- NOTE | 2020-06-18 14:15 | NUR ---
NURSE NOTES: Successfully transfused 250 mL of packed red blood cells. Patient tolerated the blood transfusion well. No adverse reaction during the transfusion. Patient will continue to be monitored.
--- NOTE | 2020-06-18 14:25 | NUR ---
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 96.0 HR 65 RR 18 B/P 131/71 AC 16 TV 500 FIO2 405 PEEP 8 H/H 6.8/22.7 BUN 68 CR 3.2 IS: MEROPENEM IV PROTONIX IV TRANSFUSE PRBC'S STEP DOWN STATUS
--- NOTE | 2020-06-18 14:28 | NUR ---
[employer]ICALS REVIEWED AND FAXED.
[2020-06-18] MEDS ORDERED: Tubing IV Secondary IV ONE (14:30)
--- NOTE | 2020-06-18 15:30 | NUR ---
NURSE NOTES: Pt brought downstairs per bed to Radiology for insertion of IVC Filter,accompanied by RN,RT and Transporter,RT ambu bagged pt during transport,pt awake,alert noted no resp distress.
--- NOTE | 2020-06-18 15:45 | Surgery Progress Note ---
Surgery Progress Note Subjective Additional Comments labs noted anemia ?prbc no n/v trach okay comfortable appearing no complaints Objective Last 24 Hour Vital Signs Date Time Temp Pulse Resp B/P (MAP) Pulse Ox O2 Delivery O2 Flow Rate FiO2 06/18/20 13:23 96.0 72 18 131/76 (94) 97 06/18/20 12:00 68 06/18/20 12:00 40 06/18/20 12:00 96.0 72 18 131/76 (94) 97 06/18/20 12:00 Room Air 06/18/20 11:17 67 19 45 06/18/20 09:15 62 18 60 06/18/20 08:00 Mechanical Ventilator Mechanical Ventilator 06/18/20 08:00 96.0 65 20 120/74 (89) 99 06/18/20 08:00 60 06/18/20 07:47 63 06/18/20 07:29 64 18 60 06/18/20 04:33 60 20 60 06/18/20 04:00 97.1 61 20 115/70 (85) 100 06/18/20 04:00 62 06/18/20 04:00 60 06/18/20 04:00 Mechanical Ventilator Mechanical Ventilator 06/18/20 02:45 62 24 60 06/18/20 01:04 63 22 60 06/18/20 00:00 98.0 63 17 110/64 (79) 99 06/18/20 00:00 61 06/18/20 00:00 Mechanical Ventilator Mechanical Ventilator 06/18/20 00:00 60 06/17/20 22:44 64 22 60 06/17/20 21:00 65 16 60 06/17/20 20:00 60 06/17/20 20:00 Mechanical Ventilator Mechanical Ventilator 06/17/20 20:00 63 06/17/20 20:00 97.9 66 20 119/79 (92) 99 06/17/20 18:41 63 19 60 06/17/20 16:00 80 06/17/20 16:00 Mechanical Ventilator Mechanical Ventilator 06/17/20 16:00 96.3 66 24 108/70 (83) 100 06/17/20 15:48 66 I&O Intake and Output 06/17/20 06/18/20 19:00 07:00 Intake Total 450 ml 670 ml Output Total 1000 ml 400 ml Balance -550 ml 270 ml Free Water 250 ml 150 ml Tube Feeding 200 ml 520 ml Output Urine Total 1000 ml 400 ml # Bowel Movements 2 6 Dressing: saturated Cardiovascular: RSR Respiratory: decreased breath sounds Abdomen: non-tender, present bowel sounds Extremities: no edema, no tenderness, no cyanosis Laboratory Tests Test 06/17/20 18:00 06/18/20 00:05 06/18/20 03:40 06/18/20 05:55 POC Whole Blood Glucose 136 MG/DL (74-106) H 145 MG/DL (74-106) H 153 MG/DL (74-106) H White Blood Count 11.9 K/UL (4.8-10.8) H Red Blood Count 2.33 M/UL (4.70-6.10) L Hemoglobin 6.7 G/DL (14.2-18.0) *L Hematocrit 22.7 % (42.0-52.0) L Mean Corpuscular Volume 98 FL (80-99) Mean Corpuscular Hemoglobin 29.0 PG (27.0-31.0) Mean Corpuscular Hemoglobin Concent 29.7 G/DL (32.0-36.0) L Red Cell Distribution Width 14.9 % (11.6-14.8) H Platelet Count 279 K/UL (150-450) Mean Platelet Volume 8.0 FL (6.5-10.1) Neutrophils (%) (Auto) % (45.0-75.0) Lymphocytes (%) (Auto) % (20.0-45.0) Monocytes (%) (Auto) % (1.0-10.0) Eosinophils (%) (Auto) % (0.0-3.0) Basophils (%) (Auto) % (0.0-2.0) Differential Total Cells Counted 100 Neutrophils % (Manual) 82 % (45-75) H Lymphocytes % (Manual) 8 % (20-45) L Monocytes % (Manual) 6 % (1-10) Eosinophils % (Manual) 4 % (0-3) H Basophils % (Manual) 0 % (0-2) Band Neutrophils 0 % (0-8) Nucleated Red Blood Cells 1 /100 WBC Platelet Estimate Adequate Platelet Morphology Normal Hypochromasia 2+ Anisocytosis 1+ Macrocytosis 1+ Sodium Level 142 MMOL/L (136-145) Potassium Level 3.3 MMOL/L (3.5-5.1) L Chloride Level 107 MMOL/L (98-107) Carbon Dioxide Level 31 MMOL/L (21-32) Anion Gap 4 mmol/L (5-15) L Blood Urea Nitrogen 68 mg/dL (7-18) H Creatinine 3.2 MG/DL (0.55-1.30) H Estimat Glomerular Filtration Rate 24.7 mL/min (>60) Glucose Level 133 MG/DL (74-106) H Uric Acid 7.2 MG/DL (2.6-7.2) Calcium Level 7.2 MG/DL (8.5-10.1) L Phosphorus Level 5.5 MG/DL (2.5-4.9) H Total Bilirubin 0.3 MG/DL (0.2-1.0) Aspartate Amino Transf (AST/SGOT) 512 U/L (15-37) H Alanine Aminotransferase (ALT/SGPT) 401 U/L (12-78) H Alkaline Phosphatase 628 U/L (46-116) H C-Reactive Protein, Quantitative 9.8 mg/dL (0.00-0.90) H Total Protein 7.0 G/DL (6.4-8.2) Albumin 1.5 G/DL (3.4-5.0) L Globulin 5.5 g/dL Albumin/Globulin Ratio 0.3 (1.0-2.7) L Test 06/18/20 09:04 06/18/20 12:29 Arterial Blood pH 7.235 (7.350-7.450) Arterial Blood Partial Pressure CO2 81.8 mmHg (35.0-45.0) *H Arterial Blood Partial Pressure O2 78.0 mmHg (75.0-100.0) Arterial Blood HCO3 33.9 mmol/L (22.0-26.0) H Arterial Blood Oxygen Saturation 94.4 % (95-100) L Arterial Blood Base Excess 5.4 (-2-2) H Joe Test Positive POC Whole Blood Glucose 151 MG/DL (74-106) H Plan Problems: (1) Leukocytosis Assessment & Plan: 54-year-old male multiple comorbidities admitted for abnormal chest x-ray potentially pneumonia leukocytosis abnormal labs. Patient identified to have a prior left BKA surgical sutures still in place as well as a surgical sacral wound with sutures in place. Considerations of dehiscence being identified and potential etiology of infection. After evaluation unlikely source of infection though the sacral wound was looked to be dehiscing at the inferior aspect. No acute surgical mention at this time We will discussed care plan with PCP Recommend follow-up with initial surgeon considerations of removal of surgical sutures Care plan initiated worsening lft's US ordered ? shayla (2) Surgical wound dehiscence Assessment & Plan: Patient identified to have a left BKA surgical sutures in place flap looks like it is taken well no signs of infection at this time no signs of seroma hematoma or drainage. Unknown exact length or duration of potential prior left BKA and until then recommend leaving sutures in place as it may be too early though it does look well-healed. If able to obtain prior rec ords we will be happy to remove sutures otherwise will need follow-up with primary surgeon furthermore patient identified to have a surgical wound in the sacral area seems he probably potentially had a stage IV sacral decubitus ulcer that had debridement and primary closure. Fortunately. Sutures are still in place and it looks like the inferior aspect may be slowly dehiscing. There is no significant drainage no foul odor no signs of active infection unknown if bone was palpable prior. Can consider removing surgical sutures but again would recommend obtaining prior records of possible prior to doing so. Also recommend following up with primary surgeon as this may need ongoing continued care. Will follow with recommendations and as information is available. Continue current care plan. Wash wounds daily with normal saline. Apply skin protectant Optifoam dressing. Turn every 2 hours. Offload pressure with pillows and air mattress. Nutritional optimization. (3) History of left below knee amputation (4) Malnutrition Assessment & Plan: DAILY ESTIMATED NEEDS: Needs based on Wound, critical care, underweight/ 55.5kg 25-33 kcals/kg 7622-7244 total kcals 1.25-2 g protein/kg 69-111 g total protein 25-30 mL/kg 9893-6735 total fluid mLs NUTRITION DIAGNOSIS: * Swallowing difficulty R/T respiratory status as evidenced by pt is trach/vent dep, PEG dep, NPO at this time. CURRENT TF:NPO ENTERAL NUTRITION RECOMMENDATIONS: Nepro @ 40ml/hr x 24 hrs to provide 960ml, 1728kcal, 78g prot, 698ml free water * Rec to continue TOP SCREW TF of Nepro (K 5.8, 5.0) * Rec goal rate of 40ml/hr x 24 hrs * HOB over 30 degrees/ water flush per MD ADDITIONAL RECOMMENDATIONS: * Per SNF: HT=69" NC=141lgj -> rec daily calibrated bedscale wt * Monitor lytes: elev K * Wound healing: f/up w/ WC eval add Vit C 500mg QD, Av BID via PEG (5) Anemia (6) KERRI (acute kidney injury) (7) Acute respiratory failure (8) Hyperkalemia (9) Anemia (10) Abnormal laboratory test result (11) Chronic respiratory failure Azar Mares Jun 18, 2020 15:45
--- NOTE | 2020-06-18 16:00 | NUR ---
NURSE NOTES: IVC Filter insertion started to RT side of neck by Dr Ortiz,,procedure tolerated well,no resp distress presented V/S monitored and recorded, pt stable.
--- NOTE | 2020-06-18 16:40 | NUR ---
NURSE NOTES: Procedure done at 1630 and pt brought back upstairs to SDU per bed,awake,alert stable drsg to RT side of neck dry and intact,no bleeding or hematoma noted to site.
--- NOTE | 2020-06-18 16:54 | Pre-Procedure Note/Attestation ---
Pre-Procedure Note/Attestation Complete Prior to Procedure Planned Procedure: not applicable Procedure Narrative: IVC filter Indications for Procedure Pre-Operative Diagnosis: DVT, anemia contraindicating anticoagulation Attestation I attest that I discussed the nature of the procedure; its benefits; risks and complications; and alternatives (and the risks and benefits of such alternative s), prior to the procedure, with the patient (or the patient's legal real estate representative). I attest that, if there was a reasonable possibility of needing a blood transfusion, the patient (or the patient's legal real estate representative) was given the [facility] standardized written summary, pursuant to the Rex Amparo Blood Safety Act ([place] Health and Safety Code # 1645, as amended). I attest that I re-evaluated the patient just prior to the surgery and that there has been no change in the patient's H&P, except as documented below: Salo Thomas MD Jun 18, 2020 16:54
--- NOTE | 2020-06-18 16:56 | Brief Operative Note ---
Immediate Post Operative Note Operative Note Pre-op Diagnosis: DVT, anemia contraindicating anticoagulation Procedure: IVC filter Post-op Diagnosis: same as pre-op Surgeon: Froy THOMAS Anesthesia: local Specimen: none Complications: none Fluids: none Implant(s) used?: No Salo Thomas MD Jun 18, 2020 16:56
--- NOTE | 2020-06-18 18:00 | NUR ---
NURSE NOTES: Pt stable,noted no resp distress,HOB elevated 30degrees,V/S monitored q 15 min drsg to RT side of neck dry and intact,no bleeding noted ,no hematoma to site.
--- NOTE | 2020-06-18 18:07 | NUR ---
RADIOLOGY NOTE: RIJ IVC FILTER PLACEMENT BY DR. ZEINAB GUZMAN AT 1600 HRS. FA
[2020-06-18] MEDS: Meropenem 500mg/NS 55ml IVPB SCH ×2 (18:47)
--- NOTE | 2020-06-18 19:20 | NUR ---
Received report from MAX Greer. Pt is resting in bed, awake, alert, non-verbal due to trach but communicates by facial expression and body movement. Vital Signs are stable, no bleeding noted in the IVC filter site. Tolerating vent setting of AC 16, TV500, FiO2 45% saturating 93%. PICC line is intact and patent. GTube is intact and patent running Nepro @ 40cc/hr. Sparrow catheter is intact and patent and draining yellowish urine. Bed is locked and in lowest position, bed alarm on. Head of bed is at 30< angle at all time. Will continue to monitor the pt. Will continue with the plan of care.
--- NOTE | 2020-06-18 19:37 | NUR ---
NURSE NOTES: Bed bath given ,pt had BM to liquid yellow stools,kept dry and clean.
--- NOTE | 2020-06-18 19:39 | NUR ---
NURSE HAND-OFF REPORT: Important Events on Shift:IVC filter insertion done , pt received 1 unit of PRB H/H 6.7/22.7 Patient Status: status Diet: Nepro 40 ml/hr per GT Pending Orders: N/A Pending Results/Labs:N/A Pending MD notification:N/A Latest Vital Signs: Temperature 95.9 , Pulse 77 , B/P 123 /78 , Respiratory Rate 19 , O2 SAT 92 , Room Air, O2 Flow Rate 15.0 . Vital Sign Comment: N/A EKG Rhythm: Sinus Rhythm Rhythm change?: N Notified?: Jennifer Lipscomb MD Response: No New Orders Received Latest Santiago Fall Score: 35 Fall Risk: Medium Risk Safety Measures: Call light Within Reach, Bed Alarm Zone 1, Side Rails Side Rails x3, Bed position Low and Locked. Fall Precautions: Yellow Socks Yellow Gown Door Sign Patient Fall Education Report given to Jalen SANTANA.
--- NOTE | 2020-06-18 20:18 | General Progress Note ---
Subjective ROS Limited/Unobtainable: Yes Allergies: Coded Allergies: No Known Allergies (Unverified , 06/13/20) Objective Last 24 Hour Vital Signs Date Time Temp Pulse Resp B/P (MAP) Pulse Ox O2 Delivery O2 Flow Rate FiO2 06/18/20 19:05 77 19 45 06/18/20 18:30 95.9 89 20 119/71 (87) 97 06/18/20 18:00 95.9 81 20 129/71 (90) 93 06/18/20 17:30 96.0 89 20 121/73 (89) 97 06/18/20 17:20 67 24 45 06/18/20 17:15 96.0 83 20 123/75 (91) 97 06/18/20 17:00 96.0 81 18 119/75 (90) 98 06/18/20 16:00 79 06/18/20 16:00 93 06/18/20 16:00 95.9 83 18 123/78 (93) 92 06/18/20 16:00 40 06/18/20 16:00 Room Air 06/18/20 15:44 79 20 15.0 06/18/20 13:23 96.0 72 18 131/76 (94) 97 06/18/20 13:05 68 20 45 06/18/20 12:00 68 06/18/20 12:00 40 06/18/20 12:00 96.0 72 18 131/76 (94) 97 06/18/20 12:00 Room Air 06/18/20 11:17 67 19 45 06/18/20 09:15 62 18 60 06/18/20 08:00 Mechanical Ventilator Mechanical Ventilator 06/18/20 08:00 96.0 65 20 120/74 (89) 99 06/18/20 08:00 60 06/18/20 07:47 63 06/18/20 07:29 64 18 60 06/18/20 04:33 60 20 60 06/18/20 04:00 97.1 61 20 115/70 (85) 100 06/18/20 04:00 62 06/18/20 04:00 60 06/18/20 04:00 Mechanical Ventilator Mechanical Ventilator 06/18/20 02:45 62 24 60 06/18/20 01:04 63 22 60 06/18/20 00:00 98.0 63 17 110/64 (79) 99 06/18/20 00:00 61 06/18/20 00:00 Mechanical Ventilator Mechanical Ventilator 06/18/20 00:00 60 06/17/20 22:44 64 22 60 06/17/20 21:00 65 16 60 Intake and Output 06/17/20 06/18/20 19:00 07:00 Intake Total 450 ml 670 ml Output Total 1000 ml 400 ml Balance -550 ml 270 ml Free Water 250 ml 150 ml Tube Feeding 200 ml 520 ml Output Urine Total 1000 ml 400 ml # Bowel Movements 2 6 Laboratory Tests 06/18/20 00:05: POC Whole Blood Glucose 145H 06/18/20 03:40: White Blood Count 11.9H, Red Blood Count 2.33L, Hemoglobin 6.7*L, Hematocrit 22.7L, Mean Corpuscular Volume 98, Mean Corpuscular Hemoglobin 29.0, Mean Cor puscular Hemoglobin Concent 29.7L, Red Cell Distribution Width 14.9H, Platelet Count 279, Mean Platelet Volume 8.0, Neutrophils (%) (Auto) , Lymphocytes (%) (Auto) , Monocytes (%) (Auto) , Eosinophils (%) (Auto) , Basophils (%) (Auto) , Differential Total Cells Counted 100, Neutrophils % (Manual) 82H, Lymphocytes % (Manual) 8L, Monocytes % (Manual) 6, Eosinophils % (Manual) 4H, Basophils % (Manual) 0, Band Neutrophils 0, Nucleated Red Blood Cells 1, Platelet Estimate Adequate, Platelet Morphology Normal, Hypochromasia 2+, Anisocytosis 1+, M acrocytosis 1+, Sodium Level 142, Potassium Level 3.3L, Chloride Level 107, Carbon Dioxide Level 31, Anion Gap 4L, Blood Urea Nitrogen 68H, Creatinine 3.2H, Estimat Glomerular Filtration Rate 24.7, Glucose Level 133H, Uric Acid 7.2, Calcium Level 7.2L, Phosphorus Level 5.5H, Total Bilirubin 0.3, Aspartate Amino Transf (AST/SGOT) 512H, Alanine Aminotransferase (ALT/SGPT) 401H, Alkaline Phosphatase 628H, C-Reactive Protein, Quantitative 9.8H, Total Protein 7.0, Albumin 1.5L, Globulin 5.5, Albumin/Globulin Ratio 0.3L 06/18/20 05:55: POC Whole Blood Glucose 153H 06/18/20 09:04: Arterial Blood pH 7.235*L, Arterial Blood Partial Pressure CO2 81.8*H, Arterial Blood Partial Pressure O2 78.0, Arterial Blood HCO3 33.9H, Arterial Blood Oxygen Saturation 94.4L, Arterial Blood Base Excess 5.4H, Joe Test Positive 06/18/20 12:29: POC Whole Blood Glucose 151H 06/18/20 18:52: POC Whole Blood Glucose 92 Height (Feet): 5 Height (Inches): 8.00 Weight (Pounds): 143 Assessment/Plan Problem List: (1) Anemia ICD Codes: D64.9 - Anemia, unspecified SNOMED: 277045196 (2) KERRI (acute kidney injury) ICD Codes: N17.9 - Acute kidney failure, unspecified SNOMED: 8986479, 88567443 (3) Acute respiratory failure ICD Codes: J96.00 - Acute respiratory failure, unspecified whether with hypoxia or hypercapnia SNOMED: 77676826 Qualifiers: Qualified Codes: J96.02 - Acute respiratory failure with hypercapnia (4) Hyperkalemia ICD Codes: E87.5 - Hyperkalemia SNOMED: 58120904 (5) Abnormal laboratory test result ICD Codes: R89.9 - Unspecified abnormal finding in specimens from other organs, systems and tissues SNOMED: 224983780 (6) Anemia ICD Codes: D64.9 - Anemia, unspecified SNOMED: 480696672 Status: progressing Assessment/Plan: no change check lytes dc planning resp acidosis improving pulm edema arf on high support trach and peg Neida Apple MD Jun 18, 2020 20:18
[2020-06-18] MEDS: Dyna-Hex 2% Top Sol 2oz TOPIC SCH (20:57)
[2020-06-18] MEDS: Epoetin Alfa-EPBX (NON ESRD)10,000 unit/ml vial SUBQ SCH (20:57)
--- NOTE | 2020-06-18 21:06 | Diagnostic Imaging Report ---
Indications: Deep venous thrombosis, contraindication to anticoagulation Technique: Informed consent obtained prior to commencement of the procedure. Total sterile technique, including sterile probe cover and sterile gel, sterile gloves, hand hygiene, hat, mask,, sterile gown, large sterile drape, and preparation with 2% chlorhexidine utilized. Local anesthesia with 1% lidocaine. Ultrasound reveals patent compressible right internal jugular vein. Under real-time ultrasound guidance visualization of the needle entering the vein, puncture right internal jugular vein, passage of a guidewire, into the inferior vena cava, , over which was passed a straight flush marker catheter. This was directed into the left common iliac vein, and a limited iliac venogram performed using hand injection of contrast. Catheter was then withdrawn to the level of the iliac venous confluence.. An inferior venacavogram performed, using machine injection of contrast. The images were reviewed. The position of the renal veins was determined. The catheter was then exchanged for the introducer assembly of the Option inferior vena cava filter Elite The introducer assembly was advanced further into the inferior vena cava over a guidewire, and the guidewire and dilator were removed. The filter was passed into the into the sheath. It was then positioned into the appropriate position. The filter was then deployed by unsheathing it. The filter introducer was removed. No follow-up contrast injection performed due to renal insufficiency. The filter position was deemed acceptable. The sheath was removed. Pressure held on the right neck until hemostasis was achieved. The patient tolerated procedure well, without immediate complication. Total fluoroscopy time 171.8 seconds Total dose area product 1.11 mGym2 Comparison: none. Findings:Left iliac venogram demonstrates no evidence of caval anomaly. Inferior venacavogram demonstrates normal caliber inferior vena cava. Single renal veins. No intracaval thrombus. Completion image demonstrates satisfactory filter position, with no significant tilt. Impression: Successful placement of Option Elite infrarenal inferior vena cava filter, as above.
--- NOTE | 2020-06-18 22:00 | NUR ---
NURSE NOTES: IVC Filter site no bleeding and hematoma noted. Vital signs are stable. Will continue to monitor the pt.
[2020-06-18] MEDS ORDERED: Acetaminophen 650mg/20.3ml GT PRN (23:00)
--- NOTE | 2020-06-18 23:00 | NUR ---
NURSE NOTES: Pt complained of pain and rated it as 3. Given Tylenol 650mg as ordered. Pt fall asleep. O2 saturation was going 89%, RT increased FiO2 to 60%. Will continue to monitor pt. Will continue with the plan of care.
[2020-06-19] VITALS (7 sets, daily range): BP systolic 74–133; BP diastolic 40–78
[2020-06-19] MEDS: Aluminum Hydroxide Gel Susp 15ml GT SCH ×4 (03:18→21:33)
--- NOTE | 2020-06-19 04:00 | NUR ---
NURSE NOTES: PICC line dressing changed. Suture intact, insertion site without redness. sterile technique with chorhexidine, covered with semipermeable dressing. Pt tolerated. Vital signs remain stable. Tolerated vent setting with FiO2 increase to 60%. O2 sat 98%. Will continue to monitor pt.
[2020-06-19] MEDS: Meropenem 500mg/NS 55ml IVPB SCH ×4 (06:01→17:09)
--- NOTE | 2020-06-19 06:33 | Hematology/Onc Progress Note ---
Assessment/Plan Assessment/Plan ASSESSMENT AND PLAN: #. Anemia that is likely due to chronic disease, r/o gi bleeding --> anemia panel has been reviewed, ferritin is >2000 --> no e/o hemolysis is noted --> transfuse on prn basis --> blood consent has been signed --> hgb 7.4-->7.4-->7-->6.7 --> folic acid is wnl --> 1 unit prbc 06/18 # Acute DVT in the distal right common femoral vein and profunda femoris vein. --> DUPLEX . Acute DVT in the distal right common femoral vein and profunda femoris vein. 2. No evidence of left lower extremity DVT. --> cannot anticoagulate at this time --> 06/17 s/p ivc filter placement --> hold off anticoag # Leukocytosis is likely due to b/l infiltrates --> on abx as per id -> ABX yolis/vanc --> continue trend --> wbc 15-->12 # Respiratory failure in this patient with vent-dependent respiratory failure. T --> cxr with pna/chf --> diuresis prn # Tachycardia, likely due to respiratory failure. # Left bka # Ventilator-dependent respiratory failure --> status post tracheostomy. # Dysphagia, status post PEG placement. # Renal failure. -> per Dr. Honeycutt. # Hyperkalemia and kayxelate as needed. # Dvt ppx scds Appreciate consultation and angela RN Subjective HEENT: Denies: no symptoms, eye pain, blurred vision, tearing, double vision, ear pain, ear discharge, nose pain, nose congestion, throat pain, throat swelling, mouth pain, mouth swelling, other Cardiovascular: Denies: no symptoms, chest pain, edema, irregular heart rate, lightheadedness, palpitations, syncope, other Respiratory: Denies: no symptoms, cough, shortness of breath, SOB with excertion, SOB at rest, sputum, wheezing, other Genitourinary: Denies: no symptoms, burning, discharge, frequency, flank pain, hematuria, incontinence, pain, urgency, other Neurologic/Psychiatric: Denies: no symptoms, anxiety, depressed, emotional problems, headache, numbness, paresthesia, pre-existing deficit, seizure, tingling, tremors, weakness, other Hematologic/Lymphatic: Denies: no symptoms, anemia, easy bleeding, easy bruising, adenopathy, other Allergies: Coded Allergies: No Known Allergies (Unverified , 06/13/20) Subjective 06/16 meds noted, labs reviewed, vent to trach, for ivc filter potentially 06/17 labs noted, meds reviewed, for ivc filter once covid neg 06/18 labs are noted, on vent and gt, 1 unit prbc ordered 06/19 labs pending, is s/p ivcf placement yesterday Objective Objective Current Medications Medications (Trade) Dose Ordered Sig/Maryjane Route PRN Reason Start Time Stop Time Status Last Admin Dose Admin Acetaminophen (Tylenol) 650 mg Q4H PRN GT Mild Pain (Pain Scale 1-3) 06/18/20 23:00 07/18/20 22:59 Acetaminophen (Tylenol) 650 mg Q4HR PRN GT FEVER 06/14/20 09:45 07/14/20 09:44 06/18/20 23:12 Aluminum Hydroxide (Amphojel) 1,920 mg Q6H GT 06/17/20 10:00 07/17/20 09:59 06/19/20 03:18 Ascorbic Acid (Vitamin C) 500 mg DAILY ORAL 06/16/20 09:00 07/16/20 08:59 06/18/20 08:39 Chlorhexidine Gluconate (Inés-Hex 2%) 1 applic DAILY@1999 TOPIC 06/14/20 20:00 09/12/20 19:59 06/18/20 20:57 Dextrose (Dextrose 50%) 25 ml Q30M PRN IV Hypoglycemia 06/14/20 03:45 09/12/20 03:44 Dextrose (Dextrose 50%) 50 ml Q30M PRN IV Hypoglycemia 06/14/20 03:45 09/12/20 03:44 Epoetin Bonilla (Epoetin Bonilla-EPBX(NON ESRD)) 10,000 unit MON-TUE-TUE SUBQ 06/18/20 21:00 09/16/20 20:59 06/18/20 20:57 Meropenem 500 mg/ Sodium Chloride 55 ml @ 110 mls/hr Q12HR@0600,1800 IVPB 06/18/20 18:00 06/23/20 17:59 06/19/20 06:01 Pantoprazole (Protonix) 40 mg EVERY 12 HOURS IVP 06/14/20 11:45 07/14/20 11:44 06/18/20 20:57 Vancomycin HCl ([facility]) 1 ea DAILY PRN MISC Per rx protocol 06/14/20 12:15 07/14/20 12:14 Last 24 Hour Vital Signs Date Time Temp Pulse Resp B/P (MAP) Pulse Ox O2 Delivery O2 Flow Rate FiO2 06/19/20 05:02 65 21 60 06/19/20 04:00 60 06/19/20 04:00 97.0 68 18 130/75 (93) 95 06/19/20 04:00 Mechanical Ventilator 06/19/20 03:39 69 06/19/20 02:55 70 20 60 06/19/20 01:00 70 21 60 06/19/20 01:00 70 21 100 Mechanical Ventilator 60 06/19/20 00:00 97.6 76 18 130/70 (90) 93 06/19/20 00:00 Mechanical Ventilator 06/19/20 00:00 60 06/19/20 00:00 70 06/18/20 23:03 71 20 60 06/18/20 21:10 73 19 45 06/18/20 20:00 Mechanical Ventilator 06/18/20 20:00 45 06/18/20 20:00 95.9 76 18 119/76 (90) 93 06/18/20 19:30 96.0 73 20 129/75 (93) 93 06/18/20 19:05 77 19 45 06/18/20 19:01 77 06/18/20 18:30 95.9 89 20 119/71 (87) 97 06/18/20 18:00 95.9 81 20 129/71 (90) 93 06/18/20 17:30 96.0 89 20 121/73 (89) 97 06/18/20 17:20 67 24 45 06/18/20 17:15 96.0 83 20 123/75 (91) 97 06/18/20 17:00 96.0 81 18 119/75 (90) 98 06/18/20 16:00 79 06/18/20 16:00 93 06/18/20 16:00 95.9 83 18 123/78 (93) 92 06/18/20 16:00 40 06/18/20 16:00 Room Air 06/18/20 15:44 79 20 15.0 06/18/20 13:23 96.0 72 18 131/76 (94) 97 06/18/20 13:05 68 20 45 06/18/20 12:00 68 06/18/20 12:00 40 06/18/20 12:00 96.0 72 18 131/76 (94) 97 06/18/20 12:00 Room Air 06/18/20 11:17 67 19 45 06/18/20 09:15 62 18 60 06/18/20 08:00 Mechanical Ventilator Mechanical Ventilator 06/18/20 08:00 96.0 65 20 120/74 (89) 99 06/18/20 08:00 60 06/18/20 07:47 63 06/18/20 07:29 64 18 60 06/18/20 04:33 60 20 60 06/18/20 04:00 97.1 61 20 115/70 (85) 100 06/18/20 04:00 62 06/18/20 04:00 60 06/18/20 04:00 Mechanical Ventilator Mechanical Ventilator 06/18/20 02:45 62 24 60 06/18/20 01:04 63 22 60 06/18/20 00:00 98.0 63 17 110/64 (79) 99 06/18/20 00:00 61 06/18/20 00:00 Mechanical Ventilator Mechanical Ventilator 06/18/20 00:00 60 06/17/20 22:44 64 22 60 06/17/20 21:00 65 16 60 06/17/20 20:00 60 06/17/20 20:00 Mechanical Ventilator Mechanical Ventilator 06/17/20 20:00 63 06/17/20 20:00 97.9 66 20 119/79 (92) 99 06/17/20 18:41 63 19 60 06/17/20 16:00 80 06/17/20 16:00 Mechanical Ventilator Mechanical Ventilator 06/17/20 16:00 96.3 66 24 108/70 (83) 100 06/17/20 15:48 66 06/17/20 15:29 65 21 60 06/17/20 12:00 96.7 62 22 105/60 (75) 99 06/17/20 12:00 80 06/17/20 12:00 Mechanical Ventilator Mechanical Ventilator 06/17/20 11:48 62 06/17/20 11:17 68 18 60 06/17/20 08:00 96.3 65 20 116/75 (89) 100 06/17/20 08:00 Mechanical Ventilator Mechanical Ventilator 06/17/20 08:00 80 06/17/20 07:48 63 06/17/20 07:28 63 18 80 Intake and Output 06/18/20 06/19/20 19:00 07:00 Intake Total 80 ml 530 ml Output Total 301 ml 1 ml Balance -221 ml 529 ml Free Water 130 ml Tube Feeding 80 ml 400 ml Output Urine Total 300 ml Stool Total 1 ml 1 ml Labs Test 06/17/20 02:21 06/17/20 04:00 06/17/20 09:33 06/17/20 12:36 POC Whole Blood Glucose 142 MG/DL (74-106) 155 MG/DL (74-106) White Blood Count 12.4 K/UL (4.8-10.8) Red Blood Count 2.43 M/UL (4.70-6.10) Hemoglobin 7.1 G/DL (14.2-18.0) Hematocrit 23.0 % (42.0-52.0) Mean Corpuscular Volume 94 FL (80-99) Mean Corpuscular Hemoglobin 29.2 PG (27.0-31.0) Mean Corpuscular Hemoglobin Concent 30.9 G/DL (32.0-36.0) Red Cell Distribution Width 15.4 % (11.6-14.8) Platelet Count 340 K/UL (150-450) Mean Platelet Volume 8.3 FL (6.5-10.1) Neutrophils (%) (Auto) % (45.0-75.0) Lymphocytes (%) (Auto) % (20.0-45.0) Monocytes (%) (Auto) % (1.0-10.0) Eosinophils (%) (Auto) % (0.0-3.0) Basophils (%) (Auto) % (0.0-2.0) Differential Total Cells Counted 100 Neutrophils % (Manual) 82 % (45-75) Lymphocytes % (Manual) 9 % (20-45) Monocytes % (Manual) 5 % (1-10) Eosinophils % (Manual) 3 % (0-3) Basophils % (Manual) 0 % (0-2) Band Neutrophils 1 % (0-8) Platelet Estimate Adequate Platelet Morphology Normal Anisocytosis 1+ Sodium Level 143 MMOL/L (136-145) Potassium Level 3.8 MMOL/L (3.5-5.1) Chloride Level 106 MMOL/L (98-107) Carbon Dioxide Level 32 MMOL/L (21-32) Anion Gap 5 mmol/L (5-15) Blood Urea Nitrogen 65 mg/dL (7-18) Creatinine 3.0 MG/DL (0.55-1.30) Estimat Glomerular Filtration Rate 26.7 mL/min (>60) Glucose Level 161 MG/DL (74-106) Calcium Level 7.7 MG/DL (8.5-10.1) Phosphorus Level 7.0 MG/DL (2.5-4.9) Magnesium Level 2.3 MG/DL (1.8-2.4) Total Bilirubin 0.4 MG/DL (0.2-1.0) Aspartate Amino Transf (AST/SGOT) 353 U/L (15-37) Alanine Aminotransferase (ALT/SGPT) 229 U/L (12-78) Alkaline Phosphatase 384 U/L (46-116) C-Reactive Protein, Quantitative 12.9 mg/dL (0.00-0.90) Total Protein 7.6 G/DL (6.4-8.2) Albumin 1.6 G/DL (3.4-5.0) Globulin 6.0 g/dL Albumin/Globulin Ratio 0.3 (1.0-2.7) Random Vancomycin Level 34.4 ug/mL Arterial Blood pH 7.191 (7.350-7.450) Arterial Blood Partial Pressure CO2 91.2 mmHg (35.0-45.0) Arterial Blood Partial Pressure O2 179.9 mmHg (75.0-100.0) Arterial Blood HCO3 34.1 mmol/L (22.0-26.0) Arterial Blood Oxygen Saturation 98.2 % (95-100) Arterial Blood Base Excess 4.9 (-2-2) Joe Test Positive Test 06/17/20 18:00 06/18/20 00:05 06/18/20 03:40 06/18/20 05:55 POC Whole Blood Glucose 136 MG/DL (74-106) 145 MG/DL (74-106) 153 MG/DL (74-106) White Blood Count 11.9 K/UL (4.8-10.8) Red Blood Count 2.33 M/UL (4.70-6.10) Hemoglobin 6.7 G/DL (14.2-18.0) Hematocrit 22.7 % (42.0-52.0) Mean Corpuscular Volume 98 FL (80-99) Mean Corpuscular Hemoglobin 29.0 PG (27.0-31.0) Mean Corpuscular Hemoglobin Concent 29.7 G/DL (32.0-36.0) Red Cell Distribution Width 14.9 % (11.6-14.8) Platelet Count 279 K/UL (150-450) Mean Platelet Volume 8.0 FL (6.5-10.1) Neutrophils (%) (Auto) % (45.0-75.0) Lymphocytes (%) (Auto) % (20.0-45.0) Monocytes (%) (Auto) % (1.0-10.0) Eosinophils (%) (Auto) % (0.0-3.0) Basophils (%) (Auto) % (0.0-2.0) Differential Total Cells Counted 100 Neutrophils % (Manual) 82 % (45-75) Lymphocytes % (Manual) 8 % (20-45) Monocytes % (Manual) 6 % (1-10) Eosinophils % (Manual) 4 % (0-3) Basophils % (Manual) 0 % (0-2) Band Neutrophils 0 % (0-8) Nucleated Red Blood Cells 1 /100 WBC Platelet Estimate Adequate Platelet Morphology Normal Hypochromasia 2+ Anisocytosis 1+ Macrocytosis 1+ Sodium Level 142 MMOL/L (136-145) Potassium Level 3.3 MMOL/L (3.5-5.1) Chloride Level 107 MMOL/L (98-107) Carbon Dioxide Level 31 MMOL/L (21-32) Anion Gap 4 mmol/L (5-15) Blood Urea Nitrogen 68 mg/dL (7-18) Creatinine 3.2 MG/DL (0.55-1.30) Estimat Glomerular Filtration Rate 24.7 mL/min (>60) Glucose Level 133 MG/DL (74-106) Uric Acid 7.2 MG/DL (2.6-7.2) Calcium Level 7.2 MG/DL (8.5-10.1) Phosphorus Level 5.5 MG/DL (2.5-4.9) Total Bilirubin 0.3 MG/DL (0.2-1.0) Aspartate Amino Transf (AST/SGOT) 512 U/L (15-37) Alanine Aminotransferase (ALT/SGPT) 401 U/L (12-78) Alkaline Phosphatase 628 U/L (46-116) C-Reactive Protein, Quantitative 9.8 mg/dL (0.00-0.90) Total Protein 7.0 G/DL (6.4-8.2) Albumin 1.5 G/DL (3.4-5.0) Globulin 5.5 g/dL Albumin/Globulin Ratio 0.3 (1.0-2.7) Test 06/18/20 09:04 06/18/20 12:29 06/18/20 18:52 06/19/20 00:33 Arterial Blood pH 7.235 (7.350-7.450) Arterial Blood Partial Pressure CO2 81.8 mmHg (35.0-45.0) Arterial Blood Partial Pressure O2 78.0 mmHg (75.0-100.0) Arterial Blood HCO3 33.9 mmol/L (22.0-26.0) Arterial Blood Oxygen Saturation 94.4 % (95-100) Arterial Blood Base Excess 5.4 (-2-2) Joe Test Positive POC Whole Blood Glucose 151 MG/DL (74-106) 92 MG/DL (74-106) 135 MG/DL (74-106) Test 06/19/20 03:30 Random Vancomycin Level 27.6 ug/mL Height (Feet): 5 Height (Inches): 8.00 Weight (Pounds): 143 Objective PHYSICAL EXAMINATION: VITAL SIGNS: reviewed HEAD AND NECK: Show status post tracheostomy. vent+ LUNGS: Coarse rhonchi and basilar rales. CARDIOVASCULAR: Shows irregular S1 and S2 with no gallop. ABDOMEN: Soft. Status post G-tube. EXTREMITIES: No pitting edema.++Left Jose Epperson MD Jun 19, 2020 06:33
--- NOTE | 2020-06-19 07:13 | NUR ---
NURSE HAND-OFF REPORT: Important Events on Shift:FiO2 increase to 60% Patient Status: stable Diet: Nepro 1.8 @ 40cc/hr Pending Orders: N Pending Results/Labs:N Pending MD notification:N Latest Vital Signs: Temperature 97.0 , Pulse 65 , B/P 130 /75 , Respiratory Rate 21 , O2 SAT 95 , Mechanical Ventilator, O2 Flow Rate 15.0 . Vital Sign Comment: stable EKG Rhythm: Sinus Rhythm Rhythm change?: N MD Notified?: Jennifer Lipscomb MD Response: No New Orders Received Latest Santiago Fall Score: 35 Fall Risk: Medium Risk Safety Measures: Call light Within Reach, Bed Alarm Zone 1, Side Rails Side Rails x3, Bed position Low and Locked. Fall Precautions: Yellow Socks Yellow Gown Door Sign Patient Fall Education Report given to Courtney Lakhani.
--- NOTE | 2020-06-19 07:30 | NUR ---
NURSE NOTES: Report received from MAX Márquez. Pt is asleep and does not appear to be in respiratory/cardiac distress. Pt is trach to vent, Shiley 8, AC 16, TV 50, FiO2 60%, saturating at 98%. engine monitor shows SR. Skin has multiple wounds and has L BKA with sutures. Skin cold to touch and cap refill is >3s. Pt's temp was 91.3F so he was put on a Kt hugger. Nephro running 40cc/hr, GT intact and asymptomatic. R UA PICC intact and asymptomatic. Sparrow is draining well to gravity with yellow urine. HOB elevated, call light within reach, bed locked and in lowest position. Will continue plan of care.
[2020-06-19] MEDS: Pantoprazole Inj IVP SCH ×2 (08:56→20:45)
[2020-06-19] MEDS: Ascorbic Acid 500mg tab ORAL SCH (08:57)
--- NOTE | 2020-06-19 09:16 | Pulmonology Progress Note ---
Subjective ROS Limited/Unobtainable: Yes Interval Events: None new; remains on vent Constitutional: Reports: other - feels cold HEENT: Repors: no symptoms Respiratory: Reports: no symptoms Cardiovascular: Reports: no symptoms Gastrointestinal/Abdominal: Reports: no symptoms Genitourinary: Reports: no symptoms Allergies: Coded Allergies: No Known Allergies (Unverified , 06/13/20) Objective Last 24 Hour Vital Signs Date Time Temp Pulse Resp B/P (MAP) Pulse Ox O2 Delivery O2 Flow Rate FiO2 06/19/20 07:04 60 20 60 06/19/20 05:02 65 21 60 06/19/20 04:00 60 06/19/20 04:00 97.0 68 18 130/75 (93) 95 06/19/20 04:00 Mechanical Ventilator 06/19/20 03:39 69 06/19/20 02:55 70 20 60 06/19/20 01:00 70 21 60 06/19/20 01:00 70 21 100 Mechanical Ventilator 60 06/19/20 00:00 97.6 76 18 130/70 (90) 93 06/19/20 00:00 Mechanical Ventilator 06/19/20 00:00 60 06/19/20 00:00 70 06/18/20 23:03 71 20 60 06/18/20 21:10 73 19 45 06/18/20 20:00 Mechanical Ventilator 06/18/20 20:00 45 06/18/20 20:00 95.9 76 18 119/76 (90) 93 06/18/20 19:30 96.0 73 20 129/75 (93) 93 06/18/20 19:05 77 19 45 06/18/20 19:01 77 06/18/20 18:30 95.9 89 20 119/71 (87) 97 06/18/20 18:00 95.9 81 20 129/71 (90) 93 06/18/20 17:30 96.0 89 20 121/73 (89) 97 06/18/20 17:20 67 24 45 06/18/20 17:15 96.0 83 20 123/75 (91) 97 06/18/20 17:00 96.0 81 18 119/75 (90) 98 06/18/20 16:00 79 06/18/20 16:00 93 06/18/20 16:00 95.9 83 18 123/78 (93) 92 06/18/20 16:00 40 06/18/20 16:00 Room Air 06/18/20 15:44 79 20 15.0 06/18/20 13:23 96.0 72 18 131/76 (94) 97 06/18/20 13:05 68 20 45 06/18/20 12:00 68 06/18/20 12:00 40 06/18/20 12:00 96.0 72 18 131/76 (94) 97 06/18/20 12:00 Room Air 06/18/20 11:17 67 19 45 Intake and Output 06/18/20 06/19/20 19:00 07:00 Intake Total 80 ml 640 ml Output Total 301 ml 301 ml Balance -221 ml 339 ml Free Water 160 ml Tube Feeding 80 ml 480 ml Output Urine Total 300 ml 300 ml Stool Total 1 ml 1 ml General Appearance: no acute distress HEENT: status post trach Respiratory: chest wall non-tender, lungs clear Cardiovascular: normal peripheral pulses, normal rate Abdomen: normal bowel sounds Extremities: no cyanosis Microbiology Date/Time Source Procedure Growth Status 06/16/20 20:00 Sputum Gram Stain - Final Complete 06/16/20 20:00 Sputum Culture - Final Pseudomonas Aeruginosa Stenotrophomonas Maltophilia Complete Laboratory Tests 06/18/20 12:29: POC Whole Blood Glucose 151H 06/18/20 18:52: POC Whole Blood Glucose 92 06/19/20 00:33: POC Whole Blood Glucose 135H 06/19/20 03:30: Random Vancomycin Level 27.6 06/19/20 06:50: POC Whole Blood Glucose 159H 06/19/20 09:04: Arterial Blood pH [Pending], Arterial Blood Partial Pressure CO2 [Pending], Arterial Blood Partial Pressure O2 [Pending], Arterial Blood HCO3 [Pending], Arterial Blood Oxygen Saturation [Pending], Arterial Blood Base Excess [Pending], Joe Test [Pending] Current Medications Medications (Trade) Dose Ordered Sig/Maryjane Route PRN Reason Start Time Stop Time Status Last Admin Dose Admin Acetaminophen (Tylenol) 650 mg Q4H PRN GT Mild Pain (Pain Scale 1-3) 06/18/20 23:00 07/18/20 22:59 Acetaminophen (Tylenol) 650 mg Q4HR PRN GT FEVER 06/14/20 09:45 07/14/20 09:44 06/18/20 23:12 Aluminum Hydroxide (Amphojel) 1,920 mg Q6H GT 06/17/20 10:00 07/17/20 09:59 06/19/20 08:57 Ascorbic Acid (Vitamin C) 500 mg DAILY ORAL 06/16/20 09:00 07/16/20 08:59 06/19/20 08:57 Chlorhexidine Gluconate (Inés-Hex 2%) 1 applic DAILY@2000 TOPIC 06/14/20 20:00 09/12/20 19:59 06/18/20 20:57 Dextrose (Dextrose 50%) 25 ml Q30M PRN IV Hypoglycemia 06/14/20 03:45 09/12/20 03:44 Dextrose (Dextrose 50%) 50 ml Q30M PRN IV Hypoglycemia 06/14/20 03:45 09/12/20 03:44 Epoetin Bonilla (Epoetin Bonilla-EPBX(NON ESRD)) 10,000 unit TUE-TUE-TUE SUBQ 06/18/20 21:00 09/16/20 20:59 06/18/20 20:57 Meropenem 500 mg/ Sodium Chloride 55 ml @ 110 mls/hr Q12HR@0600,1800 IVPB 06/18/20 18:00 06/23/20 17:59 06/19/20 06:01 Pantoprazole (Protonix) 40 mg EVERY 12 HOURS IVP 06/14/20 11:45 07/14/20 11:44 06/19/20 08:56 Vancomycin HCl ([facility] pharmacy to dose) 1 ea DAILY PRN MISC Per rx protocol 06/14/20 12:15 07/14/20 12:14 Assessment/Plan Problems: (1) Acute respiratory failure Assessment/Plan IMPRESSION: 1. Chronic respiratory failure. 2. Hypoxemia. 3. Respiratory acidosis. 4. Anemia. 5. Leukocytosis. 6. DVT DISCUSSION: The patient's x-ray is markedly abnormal with bilateral infiltrates. This could represent pulmonary edema. attempts to diurese have improved oxygenation how not succeeded. I suspect he has pulmonary fibrosis. Latest CXR is unchanged COVID 19 pcr and antigen both negative No anticoagulation for DVT due to anemia Continue assist-control mechanical ventilation; currently FiO2 reduced to 60%; SaO2 100%, broad-spectrum antibiotics. Transfusion as needed. I will follow carefully. Hugo Carl Omar Syed MD Jun 19, 2020 09:16
--- NOTE | 2020-06-19 09:22 | Nephrology Progress Note ---
Assessment/Plan Problem List: (1) KERRI (acute kidney injury) (2) Acute respiratory failure (3) Chronic respiratory failure (4) Anemia (5) Hyperkalemia Assessment Acute on chronic renal failure Anemia Respiratory failure acute on chronic Respiratory acidosis and hypoxia Hyperkalemia Plan June 19: No CHEM panel today. Low hemoglobin as of yesterday's lab results. Anemia management per Dr. Cueva. Continue to monitor renal parameters. June 18: Labs are reviewed. Hemoglobin lower. Creatinine higher. ABG not done yet. Patient full code. Continue per consultants. June 17: Labs reviewed. Hemoglobin low. Creatinine up to 3. Phosphorus levels elevated. Will start Amphojel via GT tube as a phosphorus binder. Monitor renal parameters. Check ABG. Continue per consultants. June 16: Labs reviewed. Serum creatinine mariana to 2.6. Abnormal electrolytes now normalized. Continue to monitor renal parameters and avoid nephrotoxic's. Continue to adjust pulmonary status as possible. June 15: ABG pH of 7.1. 2D echo suggestive of ejection fraction of 50%. Labs reviewed. Serum creatinine mariana. Will hold IV Lasix. Will give Kayexalate for high potassium and 1 amp of sodium bicarb. Albumin IV bolus given. Continue per consultants. Continue to monitor renal parameters. Kidney ultrasound ordered. June 14: As follow Pulmonary evaluation Sparrow catheter Hold IV fluid IV fluid, until 2D echo results available Kayexalate for high potassium IV Protonix 2D echocardiogram Anemia work-up More labs ordered Subjective ROS Limited/Unobtainable: Yes Objective Objective Last 24 Hour Vital Signs Date Time Temp Pulse Resp B/P (MAP) Pulse Ox O2 Delivery O2 Flow Rate FiO2 06/19/20 08:00 91.8 61 18 127/78 (94) 98 06/19/20 07:47 60 06/19/20 07:04 60 20 60 06/19/20 05:02 65 21 60 06/19/20 04:00 60 06/19/20 04:00 97.0 68 18 130/75 (93) 95 06/19/20 04:00 Mechanical Ventilator 06/19/20 03:39 69 06/19/20 02:55 70 20 60 06/19/20 01:00 70 21 60 06/19/20 01:00 70 21 100 Mechanical Ventilator 60 06/19/20 00:00 97.6 76 18 130/70 (90) 93 06/19/20 00:00 Mechanical Ventilator 06/19/20 00:00 60 06/19/20 00:00 70 06/18/20 23:03 71 20 60 06/18/20 21:10 73 19 45 06/18/20 20:00 Mechanical Ventilator 06/18/20 20:00 45 06/18/20 20:00 95.9 76 18 119/76 (90) 93 06/18/20 19:30 96.0 73 20 129/75 (93) 93 06/18/20 19:05 77 19 45 06/18/20 19:01 77 06/18/20 18:30 95.9 89 20 119/71 (87) 97 06/18/20 18:00 95.9 81 20 129/71 (90) 93 06/18/20 17:30 96.0 89 20 121/73 (89) 97 06/18/20 17:20 67 24 45 06/18/20 17:15 96.0 83 20 123/75 (91) 97 06/18/20 17:00 96.0 81 18 119/75 (90) 98 06/18/20 16:00 79 06/18/20 16:00 93 06/18/20 16:00 95.9 83 18 123/78 (93) 92 06/18/20 16:00 40 06/18/20 16:00 Room Air 06/18/20 15:44 79 20 15.0 06/18/20 13:23 96.0 72 18 131/76 (94) 97 06/18/20 13:05 68 20 45 06/18/20 12:00 68 06/18/20 12:00 40 06/18/20 12:00 96.0 72 18 131/76 (94) 97 06/18/20 12:00 Room Air 06/18/20 11:17 67 19 45 Intake and Output 06/18/20 06/19/20 19:00 07:00 Intake Total 80 ml 640 ml Output Total 301 ml 301 ml Balance -221 ml 339 ml Free Water 160 ml Tube Feeding 80 ml 480 ml Output Urine Total 300 ml 300 ml Stool Total 1 ml 1 ml Laboratory Tests 06/18/20 12:29: POC Whole Blood Glucose 151H 06/18/20 18:52: POC Whole Blood Glucose 92 06/19/20 00:33: POC Whole Blood Glucose 135H 06/19/20 03:30: Random Vancomycin Level 27.6 06/19/20 06:50: POC Whole Blood Glucose 159H 06/19/20 09:04: Arterial Blood pH 7.207*L, Arterial Blood Partial Pressure CO2 75.9*H, Arterial Blood Partial Pressure O2 71.8L, Arterial Blood HCO3 29.5H, Arterial Blood Oxygen Saturation 92.3L, Arterial Blood Base Excess 0.8, Joe Test Positive Height (Feet): 5 Height (Inches): 8.00 Weight (Pounds): 143 General Appearance: no apparent distress, lethargic EENT: other - Trach and vent Cardiovascular: normal rate Respiratory/Chest: decreased breath sounds Abdomen: soft Leonidas Honeycutt MD Jun 19, 2020 09:22
--- NOTE | 2020-06-19 09:55 | NUR ---
NURSE NOTES: Dr Garcia at bedside,ordered to decrease Fio2 on the vent settings to 50%,Resp Therapist Tacy notified.
--- NOTE | 2020-06-19 10:10 | NUR ---
NURSE NOTES: Pt complained of feeling hot and kicked off Kt hugger. Pt was notified of his low temperature and was educated on the importance of keeping his core body temperature at a normal level, but still refused a blanket or Kt hugger.
--- NOTE | 2020-06-19 10:17 | Infectious Diseases Prog Note ---
Assessment/Plan Assessment/Plan IMPRESSION: Pneumonia with Pseudomonas & Stenotrophomonas COVID19 X 2: negative Ventilator-dependent respiratory failure, Diabetes mellitus type 2, Hypertension, History of left BKA, Hypertension, anemia, Major depression, Pressure ulcer, Elevated transaminase, Hyperkalemia. Anemia R leg DVT s/p IVC filter Sacral osteomyelitis Severe anemia Acutr renal failure RECOMMENDATION: Continue meropenem for now Change IV vancomycin to Linezolid until 07/18 Start on Levaquin Subjective ROS Limited/Unobtainable: Yes Constitutional: Denies: fever Allergies: Coded Allergies: No Known Allergies (Unverified , 06/13/20) Objective Last 24 Hour Vital Signs Date Time Temp Pulse Resp B/P (MAP) Pulse Ox O2 Delivery O2 Flow Rate FiO2 06/19/20 09:14 62 17 60 06/19/20 08:00 60 06/19/20 08:00 Mechanical Ventilator 06/19/20 08:00 91.8 61 18 127/78 (94) 98 06/19/20 07:47 60 06/19/20 07:04 60 20 60 06/19/20 05:02 65 21 60 06/19/20 04:00 60 06/19/20 04:00 97.0 68 18 130/75 (93) 95 06/19/20 04:00 Mechanical Ventilator 06/19/20 03:39 69 06/19/20 02:55 70 20 60 06/19/20 01:00 70 21 60 06/19/20 01:00 70 21 100 Mechanical Ventilator 60 06/19/20 00:00 97.6 76 18 130/70 (90) 93 06/19/20 00:00 Mechanical Ventilator 06/19/20 00:00 60 06/19/20 00:00 70 06/18/20 23:03 71 20 60 06/18/20 21:10 73 19 45 06/18/20 20:00 Mechanical Ventilator 06/18/20 20:00 45 06/18/20 20:00 95.9 76 18 119/76 (90) 93 06/18/20 19:30 96.0 73 20 129/75 (93) 93 06/18/20 19:05 77 19 45 06/18/20 19:01 77 06/18/20 18:30 95.9 89 20 119/71 (87) 97 06/18/20 18:00 95.9 81 20 129/71 (90) 93 06/18/20 17:30 96.0 89 20 121/73 (89) 97 06/18/20 17:20 67 24 45 06/18/20 17:15 96.0 83 20 123/75 (91) 97 06/18/20 17:00 96.0 81 18 119/75 (90) 98 06/18/20 16:00 79 06/18/20 16:00 93 06/18/20 16:00 95.9 83 18 123/78 (93) 92 06/18/20 16:00 40 06/18/20 16:00 Room Air 06/18/20 15:44 79 20 15.0 06/18/20 13:23 96.0 72 18 131/76 (94) 97 06/18/20 13:05 68 20 45 06/18/20 12:00 68 06/18/20 12:00 40 06/18/20 12:00 96.0 72 18 131/76 (94) 97 06/18/20 12:00 Room Air 06/18/20 11:17 67 19 45 Height (Feet): 5 Height (Inches): 8.00 Weight (Pounds): 143 HEENT: mucous membranes moist, status post trach Respiratory/Chest: lungs clear, other - on ventilator Cardiovascular: normal rate Abdomen: soft, non tender, other - GT feeding Extremities: no edema Neurologic/Psychiatric: alert, responsive Microbiology Date/Time Source Procedure Growth Status 06/16/20 20:00 Sputum Gram Stain - Final Complete 06/16/20 20:00 Sputum Culture - Final Pseudomonas Aeruginosa Stenotrophomonas Maltophilia Complete Laboratory Tests Test 06/18/20 12:29 06/18/20 18:52 06/19/20 00:33 06/19/20 03:30 POC Whole Blood Glucose 151 MG/DL (74-106) H 92 MG/DL (74-106) 135 MG/DL (74-106) H Random Vancomycin Level 27.6 ug/mL Test 06/19/20 06:50 06/19/20 09:04 POC Whole Blood Glucose 159 MG/DL (74-106) H Arterial Blood pH 7.207 (7.350-7.450) Arterial Blood Partial Pressure CO2 75.9 mmHg (35.0-45.0) *H Arterial Blood Partial Pressure O2 71.8 mmHg (75.0-100.0) L Arterial Blood HCO3 29.5 mmol/L (22.0-26.0) H Arterial Blood Oxygen Saturation 92.3 % (95-100) L Arterial Blood Base Excess 0.8 (-2-2) Joe Test Positive Current Medications Medications (Trade) Dose Ordered Sig/Maryjane Route PRN Reason Start Time Stop Time Status Last Admin Dose Admin Acetaminophen (Tylenol) 650 mg Q4H PRN GT Mild Pain (Pain Scale 1-3) 06/18/20 23:00 07/18/20 22:59 Acetaminophen (Tylenol) 650 mg Q4HR PRN GT FEVER 06/14/20 09:45 07/14/20 09:44 06/18/20 23:12 Aluminum Hydroxide (Amphojel) 1,920 mg Q6H GT 06/17/20 10:00 07/17/20 09:59 06/19/20 08:57 Ascorbic Acid (Vitamin C) 500 mg DAILY ORAL 06/16/20 09:00 07/16/20 08:59 06/19/20 08:57 Chlorhexidine Gluconate (Inés-Hex 2%) 1 applic DAILY@2000 TOPIC 06/14/20 20:00 09/12/20 19:59 06/18/20 20:57 Dextrose (Dextrose 50%) 25 ml Q30M PRN IV Hypoglycemia 06/14/20 03:45 09/12/20 03:44 Dextrose (Dextrose 50%) 50 ml Q30M PRN IV Hypoglycemia 06/14/20 03:45 09/12/20 03:44 Epoetin Bonilla (Epoetin Bonilla-EPBX(NON ESRD)) 10,000 unit TUE-TUE-TUE SUBQ 06/18/20 21:00 09/16/20 20:59 06/18/20 20:57 Meropenem 500 mg/ Sodium Chloride 55 ml @ 110 mls/hr Q12HR@0600,1800 IVPB 06/18/20 18:00 06/23/20 17:59 06/19/20 06:01 Pantoprazole (Protonix) 40 mg EVERY 12 HOURS IVP 06/14/20 11:45 07/14/20 11:44 06/19/20 08:56 Vancomycin HCl (Vanco pharmacy to dose) 1 ea DAILY PRN MISC Per rx protocol 06/14/20 12:15 07/14/20 12:14 Paul Amador MD Jun 19, 2020 10:17
--- NOTE | 2020-06-19 10:29 | Cardiac Electrophysiology PN ---
Assessment/Plan Assessment/Plan 1. Vent-dependent respirator failure. S/P tracheostomy. Chest x-ray is suspicious for extensive bilateral pneumonia or ARDS. His creatinine is 3.2. Off isolation EF 50%. Ruled out for [place]. BNP 35443. On iv Abx 2. Tachycardia, likely due to respiratory failure. 3. Right femoral vein DVT. S/P IVC filter 06/18 4. Dysphagia, status post PEG placement. 5. Renal failure. Further evaluation by Dr. Honeycutt. 6. Severe anemia, S/P PRBC DW RN Subjective Subjective On the Vent off isolation. On 60% Fio2 and PEEP. S/P IVC filter yesterday. S/P 1 unit PRBC. CXR pending Objective Last 24 Hour Vital Signs Date Time Temp Pulse Resp B/P (MAP) Pulse Ox O2 Delivery O2 Flow Rate FiO2 06/19/20 09:14 62 17 60 06/19/20 08:00 60 06/19/20 08:00 Mechanical Ventilator 06/19/20 08:00 91.8 61 18 127/78 (94) 98 06/19/20 07:47 60 06/19/20 07:04 60 20 60 06/19/20 05:02 65 21 60 06/19/20 04:00 60 06/19/20 04:00 97.0 68 18 130/75 (93) 95 06/19/20 04:00 Mechanical Ventilator 06/19/20 03:39 69 06/19/20 02:55 70 20 60 06/19/20 01:00 70 21 60 06/19/20 01:00 70 21 100 Mechanical Ventilator 60 06/19/20 00:00 97.6 76 18 130/70 (90) 93 06/19/20 00:00 Mechanical Ventilator 06/19/20 00:00 60 06/19/20 00:00 70 06/18/20 23:03 71 20 60 06/18/20 21:10 73 19 45 06/18/20 20:00 Mechanical Ventilator 06/18/20 20:00 45 06/18/20 20:00 95.9 76 18 119/76 (90) 93 06/18/20 19:30 96.0 73 20 129/75 (93) 93 06/18/20 19:05 77 19 45 06/18/20 19:01 77 06/18/20 18:30 95.9 89 20 119/71 (87) 97 06/18/20 18:00 95.9 81 20 129/71 (90) 93 06/18/20 17:30 96.0 89 20 121/73 (89) 97 06/18/20 17:20 67 24 45 06/18/20 17:15 96.0 83 20 123/75 (91) 97 06/18/20 17:00 96.0 81 18 119/75 (90) 98 06/18/20 16:00 79 06/18/20 16:00 93 06/18/20 16:00 95.9 83 18 123/78 (93) 92 06/18/20 16:00 40 06/18/20 16:00 Room Air 06/18/20 15:44 79 20 15.0 06/18/20 13:23 96.0 72 18 131/76 (94) 97 06/18/20 13:05 68 20 45 06/18/20 12:00 68 06/18/20 12:00 40 06/18/20 12:00 96.0 72 18 131/76 (94) 97 06/18/20 12:00 Room Air 06/18/20 11:17 67 19 45 Intake and Output 06/18/20 06/19/20 19:00 07:00 Intake Total 80 ml 640 ml Output Total 301 ml 301 ml Balance -221 ml 339 ml Free Water 160 ml Tube Feeding 80 ml 480 ml Output Urine Total 300 ml 300 ml Stool Total 1 ml 1 ml Laboratory Tests Test 06/18/20 12:29 06/18/20 18:52 06/19/20 00:33 06/19/20 03:30 POC Whole Blood Glucose 151 MG/DL (74-106) H 92 MG/DL (74-106) 135 MG/DL (74-106) H Random Vancomycin Level 27.6 ug/mL Test 06/19/20 06:50 06/19/20 09:04 POC Whole Blood Glucose 159 MG/DL (74-106) H Arterial Blood pH 7.207 (7.350-7.450) Arterial Blood Partial Pressure CO2 75.9 mmHg (35.0-45.0) *H Arterial Blood Partial Pressure O2 71.8 mmHg (75.0-100.0) L Arterial Blood HCO3 29.5 mmol/L (22.0-26.0) H Arterial Blood Oxygen Saturation 92.3 % (95-100) L Arterial Blood Base Excess 0.8 (-2-2) Joe Test Positive Microbiology Date/Time Source Procedure Growth Status 06/16/20 20:00 Sputum Gram Stain - Final Complete 06/16/20 20:00 Sputum Culture - Final Pseudomonas Aeruginosa Stenotrophomonas Maltophilia Complete Objective HEAD AND NECK: Status post tracheostomy. LUNGS: Coarse rhonchi and basilar rales. CARDIOVASCULAR: Shows irregular S1 and S2 with no gallop. ABDOMEN: Soft. Status post G-tube. EXTREMITIES: No pitting edema. Lance Mcguire MD Jun 19, 2020 10:29
[2020-06-19 10:33] LABS: HEMATOCRIT 25.4 % (42.0-52.0); HEMOGLOBIN 7.8 G/DL (14.2-18.0); MEAN CORPUSCULAR VOLUME 92 FL (80-99); PLATELET COUNT 285 K/UL (150-450); RED BLOOD COUNT 2.75 M/UL (4.70-6.10); RED CELL DISTRIBUTION WIDTH 16.6 % (11.6-14.8); WHITE BLOOD COUNT 10.8 K/UL (4.8-10.8)
[2020-06-19 10:48] LABS: CREATININE 3.6 MG/DL (0.55-1.30); POTASSIUM 3.7 MMOL/L (3.5-5.1)
[2020-06-19 10:53] LABS: ALBUMIN 1.6 G/DL (3.4-5.0); ALBUMIN/GLOBULIN RATIO 0.3 (1.0-2.7); BILIRUBIN,TOTAL 0.3 MG/DL (0.2-1.0)
--- NOTE | 2020-06-19 11:13 | General Progress Note ---
Subjective ROS Limited/Unobtainable: Yes Allergies: Coded Allergies: No Known Allergies (Unverified , 06/13/20) Objective Last 24 Hour Vital Signs Date Time Temp Pulse Resp B/P (MAP) Pulse Ox O2 Delivery O2 Flow Rate FiO2 06/19/20 09:14 62 17 60 06/19/20 08:01 Mechanical Ventilator 06/19/20 08:00 60 06/19/20 08:00 91.8 61 18 127/78 (94) 98 06/19/20 07:47 60 06/19/20 07:04 60 20 60 06/19/20 05:02 65 21 60 06/19/20 04:00 60 06/19/20 04:00 97.0 68 18 130/75 (93) 95 06/19/20 04:00 Mechanical Ventilator 06/19/20 03:39 69 06/19/20 02:55 70 20 60 06/19/20 01:00 70 21 60 06/19/20 01:00 70 21 100 Mechanical Ventilator 60 06/19/20 00:00 97.6 76 18 130/70 (90) 93 06/19/20 00:00 Mechanical Ventilator 06/19/20 00:00 60 06/19/20 00:00 70 06/18/20 23:03 71 20 60 06/18/20 21:10 73 19 45 06/18/20 20:00 Mechanical Ventilator 06/18/20 20:00 45 06/18/20 20:00 95.9 76 18 119/76 (90) 93 06/18/20 19:30 96.0 73 20 129/75 (93) 93 06/18/20 19:05 77 19 45 06/18/20 19:01 77 06/18/20 18:30 95.9 89 20 119/71 (87) 97 06/18/20 18:00 95.9 81 20 129/71 (90) 93 06/18/20 17:30 96.0 89 20 121/73 (89) 97 06/18/20 17:20 67 24 45 06/18/20 17:15 96.0 83 20 123/75 (91) 97 06/18/20 17:00 96.0 81 18 119/75 (90) 98 06/18/20 16:00 79 06/18/20 16:00 93 06/18/20 16:00 95.9 83 18 123/78 (93) 92 06/18/20 16:00 40 06/18/20 16:00 Mechanical Ventilator 15.0 06/18/20 16:00 Room Air 06/18/20 15:44 79 20 15.0 06/18/20 13:23 96.0 72 18 131/76 (94) 97 06/18/20 13:05 68 20 45 06/18/20 12:00 68 06/18/20 12:00 40 06/18/20 12:00 96.0 72 18 131/76 (94) 97 06/18/20 12:00 Mechanical Ventilator 15.0 06/18/20 11:17 67 19 45 Intake and Output 06/18/20 06/19/20 19:00 07:00 Intake Total 80 ml 640 ml Output Total 301 ml 301 ml Balance -221 ml 339 ml Free Water 160 ml Tube Feeding 80 ml 480 ml Output Urine Total 300 ml 300 ml Stool Total 1 ml 1 ml Laboratory Tests 06/18/20 12:29: POC Whole Blood Glucose 151H 06/18/20 18:52: POC Whole Blood Glucose 92 06/19/20 00:33: POC Whole Blood Glucose 135H 06/19/20 03:30: Random Vancomycin Level 27.6 06/19/20 06:50: POC Whole Blood Glucose 159H 06/19/20 09:04: Arterial Blood pH 7.207*L, Arterial Blood Partial Pressure CO2 75.9*H, Arterial Blood Partial Pressure O2 71.8L, Arterial Blood HCO3 29.5H, Arterial Blood Oxygen Saturation 92.3L, Arterial Blood Base Excess 0.8, Joe Test Positive 06/19/20 10:20: White Blood Count 10.8, Red Blood Count 2.75L, Hemoglobin 7.8L, Hematocrit 25.4L , Mean Corpuscular Volume 92, Mean Corpuscular Hemoglobin 28.3, Mean Corpuscular Hemoglobin Concent 30.6L, Red Cell Distribution Width 16.6H, Platelet Count 285, Mean Platelet Volume 7.0, Neutrophils (%) (Auto) , Lymphocytes (%) (Auto) , Monocytes (%) (Auto) , Eosinophils (%) (Auto) , Basophils (%) (Auto) , Differential Total Cells Counted 100, Neutrophils % (Manual) 73, Lymphocytes % (Manual) 16L, Monocytes % (Manual) 7, Eosinophils % (Manual) 4H, Basophils % (Manual) 0, Band Neutrophils 0, Platelet Estimate Adequate, Platelet Morphology Normal, Hypochromasia 1+, Anisocytosis 1+, Sodium Level 141, Potassium Level 3.7 , Chloride Level 105, Carbon Dioxide Level 34H, Anion Gap 3L, Blood Urea Ni trogen 79H, Creatinine 3.6H, Estimat Glomerular Filtration Rate 21.6, Glucose Level 180H, Calcium Level 8.0L, Total Bilirubin 0.3, Aspartate Amino Transf (AST/SGOT) 449H, Alanine Aminotransferase (ALT/SGPT) 373H, Alkaline Phosphatase 663H, Total Protein 7.4, Albumin 1.6L, Globulin 5.8, Albumin/Globulin Ratio 0.3L Height (Feet): 5 Height (Inches): 8.00 Weight (Pounds): 143 Assessment/Plan Problem List: (1) Anemia ICD Codes: D64.9 - Anemia, unspecified SNOMED: 734980297 (2) KERRI (acute kidney injury) ICD Codes: N17.9 - Acute kidney failure, unspecified SNOMED: 2907314, 39265624 (3) Acute respiratory failure ICD Codes: J96.00 - Acute respiratory failure, unspecified whether with hypoxia or hypercapnia SNOMED: 99700330 Qualifiers: Qualified Codes: J96.02 - Acute respiratory failure with hypercapnia (4) Hyperkalemia ICD Codes: E87.5 - Hyperkalemia SNOMED: 46273175 (5) Abnormal laboratory test result ICD Codes: R89.9 - Unspecified abnormal finding in specimens from other organs, systems and tissues SNOMED: 166104163 (6) Anemia ICD Codes: D64.9 - Anemia, unspecified SNOMED: 118263849 Status: progressing Assessment/Plan: repeat cxr prn check lytes sepsis poor prognosis resp acidosis improving pulm edema arf on high support trach and peg Neida Apple MD Jun 19, 2020 11:13
--- NOTE | 2020-06-19 12:00 | NUR ---
NURSE NOTES: Pt's temperature is low at 91.5. Pt refused Kt Hugger, despite pt education on the importance of keeping body temperature at a normal range. Will continue to monitor.
--- NOTE | 2020-06-19 12:17 | NUR ---
CREDIT COLLECTION ASSOCIATESET UP MECHANIC AUTOMATIC LINE SI: RESP FAILURE TRACH/VENT DEPENDENT, HYPERTHERMIA,SEPSIS T. 91.8 HR 61 RR 18 B/P 127/78 AC 16 TV 500 FIO2 50% PEEP 8 AST 449 ALT 373 ALK PHOS 663 IS: MEROPENEM IV LEVAQUIN GT ZYVOX GT BEAR HUGGER IN PLACE STEP DOWN STATUS
--- NOTE | 2020-06-19 12:20 | NUR ---
PROCESSOR SOLID PROPELLANT NOTES CLINICALS REVIEWED AND FAXED.
--- NOTE | 2020-06-19 12:53 | NUR ---
RADIOLOGY DEPT., CHEST X-RAY DONE.-P.DYE
--- NOTE | 2020-06-19 14:27 | Diagnostic Imaging Report ---
Indication: Shortness of breath Technique: One view of the chest Comparison: 06/15/2020 Findings: Patient less rotated currently. Extensive bilateral infiltrates again demonstrated, probably unchanged. There is suggestion of increasing pleural fluid on the left. This is predominantly in the upper lung. Tracheostomy remains. Right arm PICC is again demonstrated. Impression: Unchanged bilateral extensive infiltrates, over 4 days
--- NOTE | 2020-06-19 16:00 | NUR ---
NURSE NOTES: ADVERTISING ACCOUNT EXECUTIVE called,pt noted with change in LOC,Obtunded,eyes open but non responsive to stimuli,bradycardic HR37-41/min,BP 74/40,pt desaturating to 70% on a vent with 50%Fio2.,tracheal secretions suctioned by R.T.,ambu bagging done.ABG done.
--- NOTE | 2020-06-19 16:30 | NUR ---
PHYSICIAN OFFICE SECRETARY Note: PHYSICIAN OFFICE SECRETARY was called at 1630 by Zoey SANTANA for bradycardia, hypotension and change of mental status, obtunded. Dr. Ambika mccord MD informed. Patent remained on unit. See PHYSICIAN OFFICE SECRETARY documentation form for full report.
--- NOTE | 2020-06-19 16:45 | NUR ---
NURSE NOTES: Pt awake alert,T 90.5 AX,Kt hugger in placed,BP 137/87,HR 63 BPM,Fio2 increased to 60% on the vent,Pt appears stable.
--- NOTE | 2020-06-19 17:30 | NUR ---
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
--- NOTE | 2020-06-19 17:45 | NUR ---
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
--- NOTE | 2020-06-19 18:00 | NUR ---
NURSE NOTES: Called Dr Simons per order of Dr Apple,re subnormal temperature,no orders given.
--- NOTE | 2020-06-19 18:05 | Surgery Progress Note ---
Surgery Progress Note Subjective Symptoms: improved, tolerating diet, passing flatus Objective Last 24 Hour Vital Signs Date Time Temp Pulse Resp B/P (MAP) Pulse Ox O2 Delivery O2 Flow Rate FiO2 06/19/20 16:56 67 26 60 06/19/20 16:30 74 20 70 06/19/20 16:00 Mechanical Ventilator 06/19/20 16:00 91.2 65 18 130/77 (94) 96 06/19/20 15:52 50 06/19/20 15:48 65 06/19/20 15:04 65 24 100 06/19/20 13:18 64 21 50 06/19/20 12:00 95.5 61 18 133/76 (95) 96 06/19/20 12:00 50 06/19/20 12:00 Mechanical Ventilator 06/19/20 11:52 70 06/19/20 11:17 67 20 50 06/19/20 09:14 62 17 60 06/19/20 08:01 Mechanical Ventilator 06/19/20 08:00 60 06/19/20 08:00 91.8 61 18 127/78 (94) 98 06/19/20 07:47 60 06/19/20 07:04 60 20 60 06/19/20 05:02 65 21 60 06/19/20 04:00 60 06/19/20 04:00 97.0 68 18 130/75 (93) 95 06/19/20 04:00 Mechanical Ventilator 06/19/20 03:39 69 06/19/20 02:55 70 20 60 06/19/20 01:00 70 21 60 06/19/20 01:00 70 21 100 Mechanical Ventilator 60 06/19/20 00:00 97.6 76 18 130/70 (90) 93 06/19/20 00:00 Mechanical Ventilator 06/19/20 00:00 60 06/19/20 00:00 70 06/18/20 23:03 71 20 60 06/18/20 21:10 73 19 45 06/18/20 20:00 Mechanical Ventilator 06/18/20 20:00 45 06/18/20 20:00 95.9 76 18 119/76 (90) 93 06/18/20 19:30 96.0 73 20 129/75 (93) 93 06/18/20 19:05 77 19 45 06/18/20 19:01 77 06/18/20 18:30 95.9 89 20 119/71 (87 97 I&O Intake and Output 06/18/20 06/19/20 19:00 07:00 Intake Total 80 ml 640 ml Output Total 301 ml 301 ml Balance -221 ml 339 ml Free Water 160 ml Tube Feeding 80 ml 480 ml Output Urine Total 300 ml 300 ml Stool Total 1 ml 1 ml Dressing: saturated Cardiovascular: RSR Respiratory: decreased breath sounds Abdomen: non-tender, present bowel sounds Extremities: no edema, no tenderness, no cyanosis Laboratory Tests Test 06/18/20 18:52 06/19/20 00:33 06/19/20 03:30 06/19/20 06:50 POC Whole Blood Glucose 92 MG/DL (74-106) 135 MG/DL (74-106) H 159 MG/DL (74-106) H Random Vancomycin Level 27.6 ug/mL Test 06/19/20 09:04 06/19/20 10:20 06/19/20 11:39 06/19/20 16:38 Arterial Blood pH 7.207 (7.350-7.450) 7.169 (7.350-7.450) Arterial Blood Partial Pressure CO2 75.9 mmHg (35.0-45.0) *H 95.6 mmHg (35.0-45.0) *H Arterial Blood Partial Pressure O2 71.8 mmHg (75.0-100.0) L 317.7 mmHg (75.0-100.0) H Arterial Blood HCO3 29.5 mmol/L (22.0-26.0) H 34.0 mmol/L (22.0-26.0) H Arterial Blood Oxygen Saturation 92.3 % (95-100) L 99.3 % (95-100) Arterial Blood Base Excess 0.8 (-2-2) 4.0 (-2-2) H Joe Test Positive Positive White Blood Count 10.8 K/UL (4.8-10.8) Red Blood Count 2.75 M/UL (4.70-6.10) L Hemoglobin 7.8 G/DL (14.2-18.0) L Hematocrit 25.4 % (42.0-52.0) L Mean Corpuscular Volume 92 FL (80-99) Mean Corpuscular Hemoglobin 28.3 PG (27.0-31.0) Mean Corpuscular Hemoglobin Concent 30.6 G/DL (32.0-36.0) L Red Cell Distribution Width 16.6 % (11.6-14.8) H Platelet Count 285 K/UL (150-450) Mean Platelet Volume 7.0 FL (6.5-10.1) Neutrophils (%) (Auto) % (45.0-75.0) Lymphocytes (%) (Auto) % (20.0-45.0) Monocytes (%) (Auto) % (1.0-10.0) Eosinophils (%) (Auto) % (0.0-3.0) Basophils (%) (Auto) % (0.0-2.0) Differential Total Cells Counted 100 Neutrophils % (Manual) 73 % (45-75) Lymphocytes % (Manual) 16 % (20-45) L Monocytes % (Manual) 7 % (1-10) Eosinophils % (Manual) 4 % (0-3) H Basophils % (Manual) 0 % (0-2) Band Neutrophils 0 % (0-8) Platelet Estimate Adequate Platelet Morphology Normal Hypochromasia 1+ Anisocytosis 1+ Sodium Level 141 MMOL/L (136-145) Potassium Level 3.7 MMOL/L (3.5-5.1) Chloride Level 105 MMOL/L (98-107) Carbon Dioxide Level 34 MMOL/L (21-32) H Anion Gap 3 mmol/L (5-15) L Blood Urea Nitrogen 79 mg/dL (7-18) H Creatinine 3.6 MG/DL (0.55-1.30) H Estimat Glomerular Filtration Rate 21.6 mL/min (>60) Glucose Level 180 MG/DL (74-106) H Calcium Level 8.0 MG/DL (8.5-10.1) L Total Bilirubin 0.3 MG/DL (0.2-1.0) Aspartate Amino Transf (AST/SGOT) 449 U/L (15-37) H Alanine Aminotransferase (ALT/SGPT) 373 U/L (12-78) H Alkaline Phosphatase 663 U/L (46-116) H Total Protein 7.4 G/DL (6.4-8.2) Albumin 1.6 G/DL (3.4-5.0) L Globulin 5.8 g/dL Albumin/Globulin Ratio 0.3 (1.0-2.7) L POC Whole Blood Glucose 166 MG/DL (74-106) H Test 06/19/20 17:07 POC Whole Blood Glucose Pending Plan Problems: (1) Leukocytosis Assessment & Plan: 54-year-old male multiple comorbidities admitted for abnorm al chest x-ray potentially pneumonia leukocytosis abnormal labs. Patient identified to have a prior left BKA surgical sutures still in place as well as a surgical sacral wound with sutures in place. Considerations of dehiscence being identified and potential etiology of infection. After evaluation unlikely source of infection though the sacral wound was looked to be dehiscing at the inferior aspect. No acute surgical mention at this time We will discussed care plan with PCP Recommend follow-up with initial surgeon considerations of removal of surgical sutures Care plan initiated worsening lft's US ordered ? shayla (2) Surgical wound dehiscence Assessment & Plan: Patient identified to have a left BKA surgical sutures in place flap looks like it is taken well no signs of infection at this time no signs of seroma hematoma or drainage. Unknown exact length or duration of potential prior left BKA and until then recommend leaving sutures in place as it may be too early though it does look well-healed. If able to obtain prior records we will be happy to remove sutures otherwise will need follow-up with primary surgeon furthermore patient identified to have a surgical wound in the sacral area seems he probably potentially had a stage IV sacral decubitus ulcer that had debridement and primary closure. Fortunately. Sutures are still in place and it looks like the inferior aspect may be slowly dehiscing. There is no significant drainage no foul odor no signs of active infection unknown if bone was palpable prior. Can consider removing surgical sutures but again would recommend obtaining prior records of possible prior to doing so. Also recommend following up with primary surgeon as this may need ongoing continued care. Will follow with recommendations and as information is available. Continue current care plan. Wash wounds daily with normal saline. Apply skin protectant Optifoam dressing. Turn every 2 hours. Offload pressure with pillows and air mattress. Nutritio nal optimization. (3) History of left below knee amputation (4) Malnutrition Assessment & Plan: DAILY ESTIMATED NEEDS: Needs based on Wound, critical care, underweight/ 55.5kg 25-33 kcals/kg 7439-3650 total kcals 1.25-2 g protein/kg 69-111 g total protein 25-30 mL/kg 5171-9451 total fluid mLs NUTRITION DIAGNOSIS: * Swallowing difficulty R/T respiratory status as evidenced by pt is trach/vent dep, PEG dep, NPO at this time. CURRENT TF:NPO ENTERAL NUTRITION RECOMMENDATIONS: Nepro @ 40ml/hr x 24 hrs to provide 960ml, 1728kcal, 78g prot, 698ml free water * Rec to continue VALIDATION MANAGER TF of Nepro (K 5.8, 5.0) * Rec goal rate of 40ml/hr x 24 hrs * HOB over 30 degrees/ water flush per MD ADDITIONAL RECOMMENDATIONS: * Per SNF: HT=69" HI=135usw -> rec daily calibrated bedscale wt * Monitor lytes: elev K * Wound healing: f/up w/ WC eval add Vit C 500mg QD, Av BID via PEG (5) Anemia (6) KERRI (acute kidney injury) (7) Acute respiratory failure (8) Hyperkalemia (9) Anemia (10) Abnormal laboratory test result (11) Chronic respiratory failure Azar aMres Jun 19, 2020 18:05
--- NOTE | 2020-06-19 19:00 | NUR ---
NURSE NOTES: Pt resting in bed awake,at this time,very non compliant,taking off the blanket of the Kt Hugger,verbalizing feeling hot Encouraged to keep it on,explained re his low temp..
--- NOTE | 2020-06-19 19:10 | NUR ---
NURSE NOTES: Received patient from [employer] Eng. Patient is observed resting in bed and remains alert and oriented x3-4. No pain noted upon assessment. Pt is trach to vent and appears to be tolerating vent settings well an O2 saturation of 96% noted at this time. Vent settings as follows: AC16, TV 500, FiO2 60, PEEP 5. Bilateral lower lobe breath sounds noted to be diminished upon auscultation. Pt noted to be SR on tele monitor with a HR of 89. R upper arm PICC line noted which remains asymptomatic, intact and patent. Central line dressing remains clean, dry and intact. Active bowel sounds noted in all four quadrants; abdomen remains flat, soft and non-tender. GT noted which remains intact, patent and infusing Nepro @ 60mL/hr with no residual noted. Sparrow catheter draining urine to gravity. Diagnostics reviewed at bedside. Skin alterations noted. Fall, Aspiration and Skin precautions observed. Pt remains resting in bed; Bed remains in the lowest position with the safety wheels engaged, call light within reach, side rails up x3 and bed alarm activated. Will continue plan of care. Will continue to monitor.
--- NOTE | 2020-06-19 19:33 | NUR ---
NURSE HAND-OFF REPORT: Important Events on Shift:[employer]ING [employer]ENT called at 1600,pt went bradycardic,HR37-41 bpm,BP 74/40/,o2 sat down to 70%on a vent of 50% Fio2 Patient Status: Guarded Diet: Neprop at 40 ml/hr per GT Pending Orders: N/A Pending Results/Labs:N/A Pending MD notification:N/A Latest Vital Signs: Temperature 91.2 , Pulse 67 , B/P 74 /40 , Respiratory Rate 26 , O2 SAT 70 , Mechanical Ventilator, O2 Flow Rate 15.0 . Vital Sign Comment: unstable,Hypothermic EKG Rhythm: SB,Sinus rhythm Rhythm change?: jennifer BENDER Notified?: Jennifer Mcguire MD Response: No New Orders Received Latest Santiago Fall Score: 35 Fall Risk: Medium Risk Safety Measures: Call light Within Reach, Bed Alarm Zone 1, Side Rails Side Rails x3, Bed position Low and Locked. Fall Precautions: Yellow Socks Yellow Gown Door Sign Patient Fall Education Report given to mary Morales RN.
[2020-06-19] MEDS: Dyna-Hex 2% Top Sol 2oz TOPIC SCH (20:45)
[2020-06-19] MEDS: Acetaminophen 650mg/20.3ml GT PRN (20:45)
--- NOTE | 2020-06-19 22:00 | NUR ---
NURSE NOTES: Pt provided with a CHG bed bath, oral care and linen change. Bedside assessment performed, assessed pt for pain in which he currently denies. VS obtained and noted to be stable at this time. Pt physical status remain consistent with previous physical assessment. Pt repositioned for comfort and safety. Fall, Aspiration and Skin precautions observed. Pt remains resting in bed; Bed remains in the lowest position with the safety wheels engaged, call light within reach, side rails up x3 and bed alarm activated. Will continue plan of care. Will continue to monitor.
[2020-06-20] VITALS: BP 128/60
--- NOTE | 2020-06-20 00:35 | NUR ---
NURSE NOTES: Pt refusing VS and bedside blood glucose. Negotiated with pt in order to obtain VS. Pt provided with education but continues to refuse BS. Pt asymptomatic for both hypoglycemia and hyperglycemia. Will continue to monitor.
--- NOTE | 2020-06-20 01:00 | NUR ---
NURSE NOTES: Bedside assessment performed, assessed pt for pain in which he continues to decline. VS obtained and noted to be stable at this time. Fall, Aspiration and Skin precautions observed. Pt remains resting in bed; Bed remains in the lowest position with the safety wheels engaged, call light within reach, side rails up x3 and bed alarm activated. Will continue plan of care. Will continue to monitor.
--- NOTE | 2020-06-20 02:07 | NUR ---
NURSE NOTES: During hourly rounds pt noted to have removed PICC line. No s/sx of active bleeding noted. Pt admitted to removing line. Pt remains stable at this time. Will notify MD during rounds as pt remains physically stable and central line not required for medication administration. Charge nurse notified and also evaluated pt.
--- NOTE | 2020-06-20 02:30 | NUR ---
Received pt from MAX Null. Pt is awake, alert, not in distress. Vitals are stable. Tolerating vent setting saturating 96%. GT is intact and patent running Nepro @ 40cc/hr. Bed is locked and in lowest position, call light within reached, head of bed elevated. Will continue to monitor the pt. Will continue with the plan of care.
--- NOTE | 2020-06-20 02:32 | NUR ---
NURSE HAND-OFF REPORT: Latest Vital Signs: Temperature 97.4 , Pulse 60 , B/P 128 /60 , Respiratory Rate 20 , O2 SAT 99 , Mechanical Ventilator, O2 Flow Rate 15.0 . Vital Sign Comment: - EKG Rhythm: Sinus Rhythm Rhythm change?: N Notified?: N Response: N/A Latest Santiago Fall Score: 35 Fall Risk: Medium Risk Safety Measures: Call light Within Reach, Bed Alarm Zone 1, Side Rails Side Rails x3, Bed position Low and Locked. Fall Precautions: Yellow Socks Yellow Gown Door Sign Patient Fall Education Report given to MAX Márquez.
[2020-06-20] MEDS: Aluminum Hydroxide Gel Susp 15ml GT SCH ×4 (03:37→21:35)
[2020-06-20 04:00] VITALS: BP 132/70
[2020-06-20 04:52] LABS: BASOPHILS % (AUTO) 0.6 % (0.0-2.0); EOSINOPHILS % (AUTO) 3.4 % (0.0-3.0); HEMATOCRIT 26.7 % (42.0-52.0); LYMPHOCYTES % (AUTO) 6.3 % (20.0-45.0); MEAN CORPUSCULAR VOLUME 96 FL (80-99); MONOCYTES % (AUTO) 7.2 % (1.0-10.0); NEUTROPHILS % (AUTO) 82.5 % (45.0-75.0); PLATELET COUNT 247 K/UL (150-450); RED BLOOD COUNT 2.79 M/UL (4.70-6.10); RED CELL DISTRIBUTION WIDTH 16.3 % (11.6-14.8); WHITE BLOOD COUNT 12.5 K/UL (4.8-10.8)
[2020-06-20 05:12] LABS: ALBUMIN 1.6 G/DL (3.4-5.0); ALBUMIN/GLOBULIN RATIO 0.3 (1.0-2.7); BILIRUBIN,TOTAL 0.4 MG/DL (0.2-1.0); CALCIUM 8.4 MG/DL (8.5-10.1); CREATININE 3.9 MG/DL (0.55-1.30); PHOSPHORUS 4.9 MG/DL (2.5-4.9); POTASSIUM 3.8 MMOL/L (3.5-5.1)
[2020-06-20] MEDS: Meropenem 500mg/NS 55ml IVPB SCH ×4 (05:22→17:05)
--- NOTE | 2020-06-20 07:15 | NUR ---
NURSE HAND-OFF REPORT: Important Events on Shift:Pt d/c PICC line Patient Status: stable Diet: Nepro @ 40cc/hr Pending Orders: N Pending Results/Labs:N Pending MD notification:N Latest Vital Signs: Temperature 97.0 , Pulse 58 , B/P 132 /70 , Respiratory Rate 24 , O2 SAT 100 , Mechanical Ventilator, O2 Flow Rate 15.0 . Vital Sign Comment: EKG Rhythm: Sinus Rhythm Rhythm change?: N MD Notified?: Jennifer Lipscomb MD Response: No New Orders Received Latest Santiago Fall Score: 35 Fall Risk: Medium Risk Safety Measures: Call light Within Reach, Bed Alarm Zone 1, Side Rails Side Rails x3, Bed position Low and Locked. Fall Precautions: Yellow Socks Yellow Gown Door Sign Patient Fall Education Report given to MAX Bond.
[2020-06-20 08:00] VITALS: BP 126/76
[2020-06-20] MEDS ORDERED: Lidocaine 1% Plain 30 ml INJ PRN (08:30)
[2020-06-20] MEDS ORDERED: Heparin1,000 units/500ml Premix(Conc:2 units/ml) INJ PRN (08:30)
--- NOTE | 2020-06-20 08:31 | NUR ---
NURSE NOTES: Dr. Honeycutt at nurse station, per Dr. Honeycutt ordered dialysis non-tunneled catheter placement today. Order entered, noted, and carried out. Will continue to monitor patient.
--- NOTE | 2020-06-20 08:35 | NUR ---
NURSE NOTES: Dr. Honeycutt at nurse station and made aware that patient only had 200 ml urine output from shift coordinator. Dr. Honeycutt acknowledged and gave no new orders at this time. Will continue to monitor patient.
--- NOTE | 2020-06-20 08:36 | NUR ---
RD ASSESSMENT & RECOMMENDATIONS SEE CARE ACTIVITY FOR COMPLETE ASSESSMENT DAILY ESTIMATED NEEDS: Needs based on Wound, critical care, underweight/ 55.5kg 25-33 (25-35 w/ HD) kcals/kg 3946-0598 (1096-3771) total kcals 1.25-2 g protein/kg 69-111 g total protein 25-30 mL/kg 9625-3815 total fluid mLs NUTRITION DIAGNOSIS: * Swallowing difficulty R/T respiratory status as evidenced by pt is trach/vent dep, PEG dep. CURRENT TF: Nepro @40ml/hr x24 hrs ENTERAL NUTRITION RECOMMENDATIONS: Nepro @ 40ml/hr x 24 hrs to provide 960ml, 1728kcal, 78g prot, 698ml free water * Rec to continue [employer] TF of Nepro * Rec goal rate of 40ml/hr x 24 hrs * HOB over 30 degrees/ water flush per MD ADDITIONAL RECOMMENDATIONS: * Per SNF: HT=69" [id number] -> rec daily calibrated bedscale wt * Monitor lytes: elev K-> now wnl, phos now elev * Wound healing: RANDY BID + Nephrovite 1 tab qdaily * Monitor for bm, last bm 06/19 * W/ HD rec to add Prosource 1 pack qdaily for added 11g pro/day.
--- NOTE | 2020-06-20 08:38 | Nephrology Progress Note ---
Assessment/Plan Problem List: (1) KERRI (acute kidney injury) (2) Acute respiratory failure (3) Chronic respiratory failure (4) Anemia (5) Hyperkalemia Assessment Acute on chronic renal failure Anemia Respiratory failure acute on chronic Respiratory acidosis and hypoxia Hyperkalemia Plan June 20: Patient had an episode of bradycardia last night. Serum creatinine rising. Patient continues to have respiratory acidosis. Discussed with MAX Bond. Will order non tunneled dialysis catheter placement for initiation of dialysis treatment due to acute renal failure. Patient remains full code. I favor comfort care if bioethics consultation is sought and physicians on the team agreeable. June 19: No CHEM panel today. Low hemoglobin as of yesterday's lab results. Anemia management per Dr. Cueva. Continue to monitor renal parameters. June 18: Labs are reviewed. Hemoglobin lower. Creatinine higher. ABG not done yet. Patient full code. Continue per consultants. June 17: Labs reviewed. Hemoglobin low. Creatinine up to 3. Phosphorus levels elevated. Will start Amphojel via GT tube as a phosphorus binder. Monitor renal parameters. Check ABG. Continue per consultants. June 16: Labs reviewed. Serum creatinine mariana to 2.6. Abnormal electrolytes now normalized. Continue to monitor renal parameters and avoid nephrotoxic's. Continue to adjust pulmonary status as possible. June 15: ABG pH of 7.1. 2D echo suggestive of ejection fraction of 50%. Labs reviewed. Serum creatinine mariana. Will hold IV Lasix. Will give Kayexalate for high potassium and 1 amp of sodium bicarb. Albumin IV bolus given. Continue per consultants. Continue to monitor renal parameters. Kidney ultrasound ordered. June 14: As follow Pulmonary evaluation Sparrow catheter Hold IV fluid IV fluid, until 2D echo results available Kayexalate for high potassium IV Protonix 2D echocardiogram Anemia work-up More labs ordered Subjective ROS Limited/Unobtainable: Yes Objective Objective Last 24 Hour Vital Signs Date Time Temp Pulse Resp B/P (MAP) Pulse Ox O2 Delivery O2 Flow Rate FiO2 06/20/20 07:10 54 19 60 06/20/20 05:00 58 24 60 06/20/20 04:00 61 06/20/20 04:00 97.0 60 20 132/70 (90) 100 06/20/20 04:00 Mechanical Ventilator Mechanical Ventilator 06/20/20 04:00 60 06/20/20 03:30 59 23 60 11/13/20 01:20 70 24 60 06/20/20 00:00 60 06/20/20 00:00 97.4 60 20 128/60 (82) 99 06/20/20 00:00 Mechanical Ventilator Mechanical Ventilator 06/19/20 23:31 59 06/19/20 22:37 66 23 60 06/19/20 21:25 62 24 60 06/19/20 20:00 97.6 64 17 123/71 (88) 100 06/19/20 20:00 Mechanical Ventilator Mechanical Ventilator 06/19/20 20:00 60 06/19/20 19:33 64 06/19/20 19:20 60 22 60 06/19/20 16:56 67 26 60 06/19/20 16:30 74 20 70 06/19/20 16:00 Mechanical Ventilator 06/19/20 16:00 91.2 65 18 130/77 (94) 96 06/19/20 15:52 50 06/19/20 15:48 65 06/19/20 15:04 65 24 100 06/19/20 13:18 64 21 50 06/19/20 12:00 95.5 61 18 133/76 (95) 96 06/19/20 12:00 50 06/19/20 12:00 Mechanical Ventilator 06/19/20 11:52 70 06/19/20 11:17 67 20 50 06/19/20 09:14 62 17 60 Intake and Output 06/19/20 06/20/20 19:00 07:00 Intake Total 1050 ml 645 ml Output Total 126 ml 275 ml Balance 924 ml 370 ml Free Water 340 ml 150 ml IV Total 55 ml Tube Feeding 600 ml 440 ml Other 110 ml Output Urine Total 125 ml 275 ml Stool Total 1 ml Laboratory Tests 06/19/20 09:04: Arterial Blood pH 7.207*L, Arterial Blood Partial Pressure CO2 75.9*H, Arterial Blood Partial Pressure O2 71.8L, Arterial Blood HCO3 29.5H, Arterial Blood Oxygen Saturation 92.3L, Arterial Blood Base Excess 0.8, Joe Test Positive 06/19/20 10:20: White Blood Count 10.8, Red Blood Count 2.75L, Hemoglobin 7.8L, Hematocrit 25.4L , Mean Corpuscular Volume 92, Mean Corpuscular Hemoglobin 28.3, Mean Corpuscular Hemoglobin Concent 30.6L, Red Cell Distribution Width 16.6H, Platelet Count 285, Mean Platelet Volume 7.0, Neutrophils (%) (Auto) , Lymphocytes (%) (Auto) , Monocytes (%) (Auto) , Eosinophils (%) (Auto) , Basophils (%) (Auto) , Differential Total Cells Counted 100, Neutrophils % (Manual) 73, Lymphocytes % (Manual) 16L, Monocytes % (Manual) 7, Eosinophils % (Manual) 4H, Basophils % (Manual) 0, Band Neutrophils 0, Platelet Estimate Adequate, Platelet Morphology Normal, Hypochromasia 1+, Anisocytosis 1+, Sodium Level 141, Potassium Level 3.7, Chloride Level 105, Carbon Dioxide Level 34H, Anion Gap 3L, Blood Urea Nitrogen 79H, Creatinine 3.6H, Estimat Glomerular Filtration Rate 21.6, Glucose Level 180H, Calcium Level 8.0L, Total Bilirubin 0.3, Aspartate Amino Transf (AST/SGOT) 449H, Alanine Aminotransferase (ALT/SGPT) 373H, Alkaline Phosphatase 663H, Total Protein 7.4, Albumin 1.6L, Globulin 5.8, Albumin/Globulin Ratio 0.3L 06/19/20 11:39: POC Whole Blood Glucose 166H 06/19/20 16:38: Arterial Blood pH 7.169*L, Arterial Blood Partial Pressure CO2 95.6*H, Arterial Blood Partial Pressure O2 317.7H, Arterial Blood HCO3 34.0H, Arterial Blood Oxygen Saturation 99.3, Arterial Blood Base Excess 4.0H, Joe Test Positive 06/19/20 17:07: POC Whole Blood Glucose [Pending] 06/20/20 03:50: White Blood Count 12.5H, Red Blood Count 2.79L, Hemoglobin 8.0L, Hematocrit 26.7L, Mean Corpuscular Volume 96, Mean Corpuscular Hemoglobin 28.8, Mean Corpuscular Hemoglobin Concent 30.1L, Red Cell Distribution Width 16.3H, Platelet Count 247, Mean Platelet Volume 8.3, Neutrophils (%) (Auto) 82.5H, Lymphocytes (%) (Auto) 6.3L, Monocytes (%) (Auto) 7.2, Eosinophils (%) (Auto) 3.4H, Basophils (%) (Auto) 0.6, Sodium Level 140, Potassium Level 3.8, Chloride Level 103, Carbon Dioxide Level 34H, Anion Gap 3L, Blood Urea Nitrogen 82H, Creatinine 3.9H, Estimat Glomerular Filtration Rate 19.8, Glucose Level 179H, Calcium Level 8.4L, Phosphorus Level 4.9, Magnesium Level 2.5H, Total Bilirubin 0.4, Aspartate Amino Transf (AST/SGOT) 550H, Alanine Aminotransferase (ALT/SGPT) 451H, Alkaline Phosphatase 801H, Total Protein 7.4, Albumin 1.6L, Globulin 5.8, Albumin/Globulin Ratio 0.3L 06/20/20 06:37: POC Whole Blood Glucose 165H Height (Feet): 5 Height (Inches): 8.00 Weight (Pounds): 143 General Appearance: mild distress EENT: other - Trach to vent Cardiovascular: normal rate, bradycardia Respiratory/Chest: decreased breath sounds Abdomen: distended Leonidas Honeycutt MD Jun 20, 2020 08:38
[2020-06-20] MEDS: Pantoprazole Inj IVP SCH ×2 (08:42→20:01)
[2020-06-20] MEDS: Ascorbic Acid 500mg tab ORAL SCH (08:42)
--- NOTE | 2020-06-20 08:45 | NUR ---
NURSE NOTES: ward from interventional radiology made aware of Non-tunneled dialysis catheter placement per Dr. Honeycutt. Noted.
--- NOTE | 2020-06-20 08:50 | Hematology/Onc Progress Note ---
Assessment/Plan Assessment/Plan ASSESSMENT AND PLAN: #. Anemia that is likely due to chronic disease, r/o gi bleeding --> anemia panel has been reviewed, ferritin is >2000 --> no e/o hemolysis is noted --> transfuse on prn basis --> blood consent has been signed --> hgb 7.4-->7.4-->7-->6.7-->8 --> folic acid is wnl --> 1 unit prbc 06/18 # Acute DVT in the distal right common femoral vein and profunda femoris vein. --> DUPLEX . Acute DVT in the distal right common femoral vein and profunda femoris vein. 2. No evidence of left lower extremity DVT. --> cannot anticoagulate at this time --> 06/17 s/p ivc filter placement --> hold off anticoag # Leukocytosis is likely due to b/l infiltrates --> on abx as per id -> ABX yolis/vanc-->yolis/linezolid --> continue trend --> wbc 15-->12 # Respiratory failure in this patient with vent-dependent respiratory failure. T --> cxr with pna/chf --> diuresis prn # Tachycardia, likely due to respiratory failure. # Left bka # Ventilator-dependent respiratory failure --> status post tracheostomy. # Dysphagia --> status post PEG placement. # Renal failure. -> per Dr. Honeycutt. # Hyperkalemia and kayxelate as needed. # Dvt ppx scds Appreciate consultation and angela RN Subjective Constitutional: Denies: no symptoms, chills, fever, malaise, weakness, other HEENT: Denies: no symptoms, eye pain, blurred vision, tearing, double vision, ear pain, ear discharge, nose pain, nose congestion, throat pain, throat swelling, mouth pain, mouth swelling, other Cardiovascular: Denies: no symptoms, chest pain, edema, irregular heart rate, lightheadedness, palpitations, syncope, other Respiratory: Denies: no symptoms, cough, shortness of breath, SOB with excertion, SOB at rest, sputum, wheezing, other Gastrointestinal/Abdominal: Denies: no symptoms, abdomen distended, abdominal pain, black stools, tarry stools, blood in stool, constipated, diarrhea, difficulty swallowing, nausea, poor appetite, poor fluid intake, rectal bleeding, vomiting, other Neurologic/Psychiatric: Denies: no symptoms, anxiety, depressed, emotional problems, headache, numbness, paresthesia, pre-existing deficit, seizure, tingling, tremors, weakness, other Endocrine: Denies: no symptoms, excessive sweating, flushing, intolerance to cold, intolerance to heat, increased hunger, increased thirst, increased urine, unexplained weight gain, unexplained weight loss, other Hematologic/Lymphatic: Denies: no symptoms, anemia, easy bleeding, easy bruising, adenopathy, other Allergies: Coded Allergies: No Known Allergies (Unverified , 06/13/20) Subjective 06/16 meds noted, labs reviewed, vent to trach, for ivc filter potentially 06/17 labs noted, meds reviewed, for ivc filter once covid neg 06/18 labs are noted, on vent and gt, 1 unit prbc ordered 06/19 labs pending, is s/p ivcf placement yesterday 06/20 for hd nontunneled cathter placement, no bleeding Objective Objective Current Medications Medications (Trade) Dose Ordered Sig/Maryjane Route PRN Reason Start Time Stop Time Status Last Admin Dose Admin Acetaminophen (Tylenol) 650 mg Q4H PRN GT Mild Pain (Pain Scale 1-3) 06/18/20 23:00 07/18/20 22:59 Acetaminophen (Tylenol) 650 mg Q4HR PRN GT FEVER 06/14/20 09:45 07/14/20 09:44 06/19/20 20:45 Aluminum Hydroxide (Amphojel) 1,920 mg Q6H GT 06/17/20 10:00 07/17/20 09:59 06/20/20 03:37 Ascorbic Acid (Vitamin C) 500 mg DAILY ORAL 06/16/20 09:00 07/16/20 08:59 06/20/20 08:42 Chlorhexidine Gluconate (Inés-Hex 2%) 1 applic DAILY@1999 TOPIC 06/14/20 20:00 09/12/20 19:59 06/19/20 20:45 Dextrose (Dextrose 50%) 25 ml Q30M PRN IV Hypoglycemia 06/14/20 03:45 09/12/20 03:44 Dextrose (Dextrose 50%) 50 ml Q30M PRN IV Hypoglycemia 06/14/20 03:45 09/12/20 03:44 Epoetin Bonilla (Epoetin Bonilla-EPBX(NON ESRD)) 10,000 unit TUE-TUE-TUE SUBQ 06/18/20 21:00 09/16/20 20:59 06/18/20 20:57 Heparin Sodium/ Sodium Chloride (Heparin 1000 units/500ml Premix) 1,000 unit ONCE PRN INJ radiology procedure 06/20/20 08:30 06/22/20 08:29 Levofloxacin (Levaquin) 250 mg DAILY GT 06/19/20 10:30 06/26/20 10:29 06/20/20 08:42 Lidocaine HCl (Xylocaine 1% 30ml) 30 ml ONCE PRN INJ radiology procdure 06/20/20 08:30 06/22/20 08:29 Linezolid (Zyvox) 600 mg EVERY 12 HOURS GT 06/19/20 21:00 06/24/20 20:59 06/20/20 08:42 Meropenem 500 mg/ Sodium Chloride 55 ml @ 110 mls/hr Q12HR@0600,1800 IVPB 06/18/20 18:00 06/23/20 17:59 06/20/20 05:22 Pantoprazole (Protonix) 40 mg EVERY 12 HOURS IVP 06/14/20 11:45 07/14/20 11:44 06/20/20 08:42 Last 24 Hour Vital Signs Date Time Temp Pulse Resp B/P (MAP) Pulse Ox O2 Delivery O2 Flow Rate FiO2 06/20/20 08:00 Mechanical Ventilator Mechanical Ventilator 06/20/20 07:10 54 19 60 06/20/20 05:00 58 24 60 06/20/20 04:00 61 06/20/20 04:00 97.0 60 20 132/70 (90) 100 06/20/20 04:00 Mechanical Ventilator Mechanical Ventilator 06/20/20 04:00 60 06/20/20 03:30 59 23 60 06/20/20 01:20 70 24 60 06/20/20 00:00 60 06/20/20 00:00 97.4 60 20 128/60 (82) 99 06/20/20 00:00 Mechanical Ventilator Mechanical Ventilator 06/19/20 23:31 59 06/19/20 22:37 66 23 60 06/19/20 21:25 62 24 60 06/19/20 20:00 97.6 64 17 123/71 (88) 100 06/19/20 20:00 Mechanical Ventilator Mechanical Ventilator 06/19/20 20:00 60 06/19/20 19:33 64 06/19/20 19:20 60 22 60 06/19/20 16:56 67 26 60 06/19/20 16:30 74 20 70 06/19/20 16:00 Mechanical Ventilator 06/19/20 16:00 91.2 65 18 130/77 (94) 96 06/19/20 15:52 50 06/19/20 15:48 65 06/19/20 15:04 65 24 100 06/19/20 13:18 64 21 50 06/19/20 12:00 95.5 61 18 133/76 (95) 96 06/19/20 12:00 50 06/19/20 12:00 Mechanical Ventilator 06/19/20 11:52 70 06/19/20 11:17 67 20 50 06/19/20 09:14 62 17 60 06/19/20 08:01 Mechanical Ventilator 06/19/20 08:00 60 06/19/20 08:00 91.8 61 18 127/78 (94) 98 06/19/20 07:47 60 06/19/20 07:04 60 20 60 06/19/20 05:02 65 21 60 06/19/20 04:00 60 06/19/20 04:00 97.0 68 18 130/75 (93) 95 06/19/20 04:00 Mechanical Ventilator 06/19/20 03:39 69 06/19/20 02:55 70 20 60 06/19/20 01:00 70 21 60 06/19/20 01:00 70 21 100 Mechanical Ventilator 60 06/19/20 00:00 97.6 76 18 130/70 (90) 93 06/19/20 00:00 Mechanical Ventilator 06/19/20 00:00 60 06/19/20 00:00 70 06/18/20 23:03 71 20 60 06/18/20 21:10 73 19 45 06/18/20 20:00 Mechanical Ventilator 06/18/20 20:00 45 06/18/20 20:00 95.9 76 18 119/76 (90) 93 06/18/20 19:30 96.0 73 20 129/75 (93) 93 06/18/20 19:05 77 19 45 06/18/20 19:01 77 06/18/20 18:30 95.9 89 20 119/71 (87) 97 06/18/20 18:00 95.9 81 20 129/71 (90) 93 06/18/20 17:30 96.0 89 20 121/73 (89) 97 06/18/20 17:20 67 24 45 06/18/20 17:15 96.0 83 20 123/75 (91) 97 06/18/20 17:00 96.0 81 18 119/75 (90) 98 06/18/20 16:00 79 06/18/20 16:00 93 06/18/20 16:00 95.9 83 18 123/78 (93) 92 06/18/20 16:00 40 06/18/20 16:00 Mechanical Ventilator 15.0 06/18/20 16:00 Room Air 06/18/20 15:44 79 20 15.0 06/18/20 13:23 96.0 72 18 131/76 (94) 97 06/18/20 13:05 68 20 45 06/18/20 12:00 68 06/18/20 12:00 40 06/18/20 12:00 96.0 72 18 131/76 (94) 97 06/18/20 12:00 Mechanical Ventilator 15.0 06/18/20 11:17 67 19 45 06/18/20 09:15 62 18 60 Intake and Output 06/19/20 06/20/20 19:00 07:00 Intake Total 1050 ml 645 ml Output Total 126 ml 275 ml Balance 924 ml 370 ml Free Water 340 ml 150 ml IV Total 55 ml Tube Feeding 600 ml 440 ml Other 110 ml Output Urine Total 125 ml 275 ml Stool Total 1 ml Labs Test 06/17/20 09:33 06/17/20 12:36 06/17/20 18:00 06/18/20 00:05 Arterial Blood pH 7.191 (7.350-7.450) Arterial Blood Partial Pressure CO2 91.2 mmHg (35.0-45.0) Arterial Blood Partial Pressure O2 179.9 mmHg (75.0-100.0) Arterial Blood HCO3 34.1 mmol/L (22.0-26.0) Arterial Blood Oxygen Saturation 98.2 % (95-100) Arterial Blood Base Excess 4.9 (-2-2) Joe Test Positive POC Whole Blood Glucose 155 MG/DL (74-106) 136 MG/DL (74-106) 145 MG/DL (74-106) Test 06/18/20 03:40 06/18/20 05:55 06/18/20 09:04 06/18/20 12:29 White Blood Count 11.9 K/UL (4.8-10.8) Red Blood Count 2.33 M/UL (4.70-6.10) Hemoglobin 6.7 G/DL (14.2-18.0) Hematocrit 22.7 % (42.0-52.0) Mean Corpuscular Volume 98 FL (80-99) Mean Corpuscular Hemoglobin 29.0 PG (27.0-31.0) Mean Corpuscular Hemoglobin Concent 29.7 G/DL (32.0-36.0) Red Cell Distribution Width 14.9 % (11.6-14.8) Platelet Count 279 K/UL (150-450) Mean Platelet Volume 8.0 FL (6.5-10.1) Neutrophils (%) (Auto) % (45.0-75.0) Lymphocytes (%) (Auto) % (20.0-45.0) Monocytes (%) (Auto) % (1.0-10.0) Eosinophils (%) (Auto) % (0.0-3.0) Basophils (%) (Auto) % (0.0-2.0) Differential Total Cells Counted 100 Neutrophils % (Manual) 82 % (45-75) Lymphocytes % (Manual) 8 % (20-45) Monocytes % (Manual) 6 % (1-10) Eosinophils % (Manual) 4 % (0-3) Basophils % (Manual) 0 % (0-2) Band Neutrophils 0 % (0-8) Nucleated Red Blood Cells 1 /100 WBC Platelet Estimate Adequate Platelet Morphology Normal Hypochromasia 2+ Anisocytosis 1+ Macrocytosis 1+ Sodium Level 142 MMOL/L (136-145) Potassium Level 3.3 MMOL/L (3.5-5.1) Chloride Level 107 MMOL/L (98-107) Carbon Dioxide Level 31 MMOL/L (21-32) Anion Gap 4 mmol/L (5-15) Blood Urea Nitrogen 68 mg/dL (7-18) Creatinine 3.2 MG/DL (0.55-1.30) Estimat Glomerular Filtration Rate 24.7 mL/min (>60) Glucose Level 133 MG/DL (74-106) Uric Acid 7.2 MG/DL (2.6-7.2) Calcium Level 7.2 MG/DL (8.5-10.1) Phosphorus Level 5.5 MG/DL (2.5-4.9) Total Bilirubin 0.3 MG/DL (0.2-1.0) Aspartate Amino Transf (AST/SGOT) 512 U/L (15-37) Alanine Aminotransferase (ALT/SGPT) 401 U/L (12-78) Alkaline Phosphatase 628 U/L (46-116) C-Reactive Protein, Quantitative 9.8 mg/dL (0.00-0.90) Total Protein 7.0 G/DL (6.4-8.2) Albumin 1.5 G/DL (3.4-5.0) Globulin 5.5 g/dL Albumin/Globulin Ratio 0.3 (1.0-2.7) POC Whole Blood Glucose 153 MG/DL (74-106) 151 MG/DL (74-106) Arterial Blood pH 7.235 (7.350-7.450) Arterial Blood Partial Pressure CO2 81.8 mmHg (35.0-45.0) Arterial Blood Partial Pressure O2 78.0 mmHg (75.0-100.0) Arterial Blood HCO3 33.9 mmol/L (22.0-26.0) Arterial Blood Oxygen Saturation 94.4 % (95-100) Arterial Blood Base Excess 5.4 (-2-2) Joe Test Positive Test 06/18/20 18:52 06/19/20 00:33 06/19/20 03:30 06/19/20 06:50 POC Whole Blood Glucose 92 MG/DL (74-106) 135 MG/DL (74-106) 159 MG/DL (74-106) Random Vancomycin Level 27.6 ug/mL Test 06/19/20 09:04 06/19/20 10:20 06/19/20 11:39 06/19/20 16:38 Arterial Blood pH 7.207 (7.350-7.450) 7.169 (7.350-7.450) Arterial Blood Partial Pressure CO2 75.9 mmHg (35.0-45.0) 95.6 mmHg (35.0-45.0) Arterial Blood Partial Pressure O2 71.8 mmHg (75.0-100.0) 317.7 mmHg (75.0-100.0) Arterial Blood HCO3 29.5 mmol/L (22.0-26.0) 34.0 mmol/L (22.0-26.0) Arterial Blood Oxygen Saturation 92.3 % (95-100) 99.3 % (95-100) Arterial Blood Base Excess 0.8 (-2-2) 4.0 (-2-2) Joe Test Positive Positive White Blood Count 10.8 K/UL (4.8-10.8) Red Blood Count 2.75 M/UL (4.70-6.10) Hemoglobin 7.8 G/DL (14.2-18.0) Hematocrit 25.4 % (42.0-52.0) Mean Corpuscular Volume 92 FL (80-99) Mean Corpuscular Hemoglobin 28.3 PG (27.0-31.0) Mean Corpuscular Hemoglobin Concent 30.6 G/DL (32.0-36.0) Red Cell Distribution Width 16.6 % (11.6-14.8) Platelet Count 285 K/UL (150-450) Mean Platelet Volume 7.0 FL (6.5-10.1) Neutrophils (%) (Auto) % (45.0-75.0) Lymphocytes (%) (Auto) % (20.0-45.0) Monocytes (%) (Auto) % (1.0-10.0) Eosinophils (%) (Auto) % (0.0-3.0) Basophils (%) (Auto) % (0.0-2.0) Differential Total Cells Counted 100 Neutrophils % (Manual) 73 % (45-75) Lymphocytes % (Manual) 16 % (20-45) Monocytes % (Manual) 7 % (1-10) Eosinophils % (Manual) 4 % (0-3) Basophils % (Manual) 0 % (0-2) Band Neutrophils 0 % (0-8) Platelet Estimate Adequate Platelet Morphology Normal Hypochromasia 1+ Anisocytosis 1+ Sodium Level 141 MMOL/L (136-145) Potassium Level 3.7 MMOL/L (3.5-5.1) Chloride Level 105 MMOL/L (98-107) Carbon Dioxide Level 34 MMOL/L (21-32) Anion Gap 3 mmol/L (5-15) Blood Urea Nitrogen 79 mg/dL (7-18) Creatinine 3.6 MG/DL (0.55-1.30) Estimat Glomerular Filtration Rate 21.6 mL/min (>60) Glucose Level 180 MG/DL (74-106) Calcium Level 8.0 MG/DL (8.5-10.1) Total Bilirubin 0.3 MG/DL (0.2-1.0) Aspartate Amino Transf (AST/SGOT) 449 U/L (15-37) Alanine Aminotransferase (ALT/SGPT) 373 U/L (12-78) Alkaline Phosphatase 663 U/L (46-116) Total Protein 7.4 G/DL (6.4-8.2) Albumin 1.6 G/DL (3.4-5.0) Globulin 5.8 g/dL Albumin/Globulin Ratio 0.3 (1.0-2.7) POC Whole Blood Glucose 166 MG/DL (74-106) Test 06/19/20 17:07 06/20/20 03:50 06/20/20 06:37 White Blood Count 12.5 K/UL (4.8-10.8) Red Blood Count 2.79 M/UL (4.70-6.10) Hemoglobin 8.0 G/DL (14.2-18.0) Hematocrit 26.7 % (42.0-52.0) Mean Corpuscular Volume 96 FL (80-99) Mean Corpuscular Hemoglobin 28.8 PG (27.0-31.0) Mean Corpuscular Hemoglobin Concent 30.1 G/DL (32.0-36.0) Red Cell Distribution Width 16.3 % (11.6-14.8) Platelet Count 247 K/UL (150-450) Mean Platelet Volume 8.3 FL (6.5-10.1) Neutrophils (%) (Auto) 82.5 % (45.0-75.0) Lymphocytes (%) (Auto) 6.3 % (20.0-45.0) Monocytes (%) (Auto) 7.2 % (1.0-10.0) Eosinophils (%) (Auto) 3.4 % (0.0-3.0) Basophils (%) (Auto) 0.6 % (0.0-2.0) Sodium Level 140 MMOL/L (136-145) Potassium Level 3.8 MMOL/L (3.5-5.1) Chloride Level 103 MMOL/L (98-107) Carbon Dioxide Level 34 MMOL/L (21-32) Anion Gap 3 mmol/L (5-15) Blood Urea Nitrogen 82 mg/dL (7-18) Creatinine 3.9 MG/DL (0.55-1.30) Estimat Glomerular Filtration Rate 19.8 mL/min (>60) Glucose Level 179 MG/DL (74-106) Calcium Level 8.4 MG/DL (8.5-10.1) Phosphorus Level 4.9 MG/DL (2.5-4.9) Magnesium Level 2.5 MG/DL (1.8-2.4) Total Bilirubin 0.4 MG/DL (0.2-1.0) Aspartate Amino Transf (AST/SGOT) 550 U/L (15-37) Alanine Aminotransferase (ALT/SGPT) 451 U/L (12-78) Alkaline Phosphatase 801 U/L (46-116) Total Protein 7.4 G/DL (6.4-8.2) Albumin 1.6 G/DL (3.4-5.0) Globulin 5.8 g/dL Albumin/Globulin Ratio 0.3 (1.0-2.7) POC Whole Blood Glucose 165 MG/DL (74-106) Height (Feet): 5 Height (Inches): 8.00 Weight (Pounds): 143 Objective PHYSICAL EXAMINATION: VITAL SIGNS: reviewed HEAD AND NECK: Show status post tracheostomy. vent+ LUNGS: Coarse rhonchi and basilar rales. CARDIOVASCULAR: Shows irregular S1 and S2 with no gallop. ABDOMEN: Soft. Status post G-tube. EXTREMITIES: No pitting edema.++Left Jose Epperson MD Jun 20, 2020 08:50
--- NOTE | 2020-06-20 09:00 | NUR ---
NURSE NOTES: Patient noted with Axillary temperature of 90.7 F, temp unable to be appreciated orally, patient refuses rectal temperature. Patient refuses blankets and florina hugger, patient pushes blankets and florina hugger onto floor. Explained to patient reason for blankets and florina hugger, patient continues to refused. Respected patient's rights, charge nurse made aware. Will continue to monitor patient.
--- NOTE | 2020-06-20 09:28 | Pulmonology Progress Note ---
Subjective ROS Limited/Unobtainable: Yes Interval Events: Coded yesterday; ABG shows combined resp and metabolic acidosis Constitutional: Denies: fever HEENT: Repors: no symptoms Respiratory: Reports: no symptoms Cardiovascular: Reports: no symptoms Gastrointestinal/Abdominal: Reports: no symptoms Genitourinary: Reports: no symptoms Allergies: Coded Allergies: No Known Allergies (Unverified , 06/13/20) Objective Last 24 Hour Vital Signs Date Time Temp Pulse Resp B/P (MAP) Pulse Ox O2 Delivery O2 Flow Rate FiO2 06/20/20 08:00 60 06/20/20 08:00 Mechanical Ventilator Mechanical Ventilator 06/20/20 07:10 54 19 60 06/20/20 05:00 58 24 60 06/20/20 04:00 61 06/20/20 04:00 97.0 60 20 132/70 (90) 100 06/20/20 04:00 Mechanical Ventilator Mechanical Ventilator 06/20/20 04:00 60 06/20/20 03:30 59 23 60 06/20/20 01:20 70 24 60 06/20/20 00:00 60 06/20/20 00:00 97.4 60 20 128/60 (82) 99 06/20/20 00:00 Mechanical Ventilator Mechanical Ventilator 06/19/20 23:31 59 06/19/20 22:37 66 23 60 06/19/20 21:25 62 24 60 06/19/20 20:00 97.6 64 17 123/71 (88) 100 06/19/20 20:00 Mechanical Ventilator Mechanical Ventilator 06/19/20 20:00 60 06/19/20 19:33 64 06/19/20 19:20 60 22 60 06/19/20 16:56 67 26 60 06/19/20 16:30 74 20 70 06/19/20 16:00 Mechanical Ventilator 06/19/20 16:00 91.2 65 18 130/77 (94) 96 06/19/20 15:52 50 06/19/20 15:48 65 06/19/20 15:04 65 24 100 06/19/20 13:18 64 21 50 06/19/20 12:00 95.5 61 18 133/76 (95) 96 06/19/20 12:00 50 06/19/20 12:00 Mechanical Ventilator 06/19/20 11:52 70 06/19/20 11:17 67 20 50 Intake and Output 06/19/20 06/20/20 19:00 07:00 Intake Total 1050 ml 645 ml Output Total 126 ml 275 ml Balance 924 ml 370 ml Free Water 340 ml 150 ml IV Total 55 ml Tube Feeding 600 ml 440 ml Other 110 ml Output Urine Total 125 ml 275 ml Stool Total 1 ml General Appearance: no acute distress HEENT: status post trach Respiratory: chest wall non-tender, lungs clear Cardiovascular: normal peripheral pulses, normal rate Abdomen: normal bowel sounds Extremities: no cyanosis Laboratory Tests 06/19/20 10:20: White Blood Count 10.8, Red Blood Count 2.75L, Hemoglobin 7.8L, Hematocrit 25.4L , Mean Corpuscular Volume 92, Mean Corpuscular Hemoglobin 28.3, Mean Corpuscular Hemoglobin Concent 30.6L, Red Cell Distribution Width 16.6H, Platelet Count 285, Mean Platelet Volume 7.0, Neutrophils (%) (Auto) , Lymphocytes (%) (Auto) , Monocytes (%) (Auto) , Eosinophils (%) (Auto) , Basophils (%) (Auto) , Differential Total Cells Counted 100, Neutrophils % (Manual) 73, Lymphocytes % (Manual) 16L, Monocytes % (Manual) 7, Eosinophils % (Manual) 4H, Basophils % (Manual) 0, Band Neutrophils 0, Platelet Estimate Adequate, Platelet Morphology Normal, Hypochromasia 1+, Anisocytosis 1+, Sodium Level 141, Potassium Level 3.7, Chloride Level 105, Carbon Dioxide Level 34H, Anion Gap 3L, Blood Urea Nitrogen 79H, Creatinine 3.6H, Estimat Glomerular Filtration Rate 21.6, Glucose Level 180H, Calcium Level 8.0L, Total Bilirubin 0.3, Aspartate Amino Transf (AST/SGOT) 449H, Alanine Aminotransferase (ALT/SGPT) 373H, Alkaline Phosphatase 663H, Total Protein 7.4, Albumin 1.6L, Globulin 5.8, Albumin/Globulin Ratio 0.3L 06/19/20 11:39: POC Whole Blood Glucose 166H 06/19/20 16:38: Arterial Blood pH 7.169*L, Arterial Blood Partial Pressure CO2 95.6*H, Arterial Blood Partial Pressure O2 317.7H, Arterial Blood HCO3 34.0H, Arterial Blood Oxygen Saturation 99.3, Arterial Blood Base Excess 4.0H, Joe Test Positive 06/19/20 17:07: POC Whole Blood Glucose [Pending] 06/20/20 03:50: White Blood Count 12.5H, Red Blood Count 2.79L, Hemoglobin 8.0L, Hematocrit 26.7L, Mean Corpuscular Volume 96, Mean Corpuscular Hemoglobin 28.8, Mean Corpuscular Hemoglobin Concent 30.1L, Red Cell Distribution Width 16.3H, Platelet Count 247, Mean Platelet Volume 8.3, Neutrophils (%) (Auto) 82.5H, Lymphocytes (%) (Auto) 6.3L, Monocytes (%) (Auto) 7.2, Eosinophils (%) (Auto) 3.4H, Basophils (%) (Auto) 0.6, Sodium Level 140, Potassium Level 3.8, Chloride Level 103, Carbon Dioxide Level 34H, Anion Gap 3L, Blood Urea Nitrogen 82H, Creatinine 3.9H, Estimat Glomerular Filtration Rate 19.8, Glucose Level 179H, Calcium Level 8.4L, Phosphorus Level 4.9, Magnesium Level 2.5H, Total Bilirubin 0.4, Aspartate Amino Transf (AST/SGOT) 550H, Alanine Aminotransferase (ALT/SGPT) 451H, Alkaline Phosphatase 801H, Total Protein 7.4, Albumin 1.6L, Globulin 5.8, Albumin/Globulin Ratio 0.3L 06/20/20 06:37: POC Whole Blood Glucose 165H Current Medications Medications (Trade) Dose Ordered Sig/Maryjane Route PRN Reason Start Time Stop Time Status Last Admin Dose Admin Acetaminophen (Tylenol) 650 mg Q4H PRN GT Mild Pain (Pain Scale 1-3) 06/18/20 23:00 07/18/20 22:59 Acetaminophen (Tylenol) 650 mg Q4HR PRN GT FEVER 06/14/20 09:45 07/14/20 09:44 06/19/20 20:45 Aluminum Hydroxide (Amphojel) 1,920 mg Q6H GT 06/17/20 10:00 07/17/20 09:59 06/20/20 03:37 Ascorbic Acid (Vitamin C) 500 mg DAILY ORAL 06/16/20 09:00 07/16/20 08:59 06/20/20 08:42 Chlorhexidine Gluconate (Inés-Hex 2%) 1 applic DAILY@1999 TOPIC 06/14/20 20:00 09/12/20 19:59 06/19/20 20:45 Dextrose (Dextrose 50%) 25 ml Q30M PRN IV Hypoglycemia 06/14/20 03:45 09/12/20 03:44 Dextrose (Dextrose 50%) 50 ml Q30M PRN IV Hypoglycemia 06/14/20 03:45 09/12/20 03:44 Epoetin Bonilla (Epoetin Bonilla-EPBX(NON ESRD)) 10,000 unit TUE-TUE-TUE SUBQ 06/18/20 21:00 09/16/20 20:59 06/18/20 20:57 Heparin Sodium/ Sodium Chloride (Heparin 1000 units/500ml Premix) 1,000 unit ONCE PRN INJ radiology procedure 06/20/20 08:30 06/22/20 08:29 Levofloxacin (Levaquin) 250 mg DAILY GT 06/19/20 10:30 06/26/20 10:29 06/20/20 08:42 Lidocaine HCl (Xylocaine 1% 30ml) 30 ml ONCE PRN INJ radiology procdure 06/20/20 08:30 06/22/20 08:29 Linezolid (Zyvox) 600 mg EVERY 12 HOURS GT 06/19/20 21:00 06/24/20 20:59 06/20/20 08:42 Meropenem 500 mg/ Sodium Chloride 55 ml @ 110 mls/hr Q12HR@0600,1800 IVPB 06/18/20 18:00 06/23/20 17:59 06/20/20 05:22 Pantoprazole (Protonix) 40 mg EVERY 12 HOURS IVP 06/14/20 11:45 07/14/20 11:44 06/20/20 08:42 Assessment/Plan Problems: (1) Acute respiratory failure Assessment/Plan IMPRESSION: 1. Chronic respiratory failure. 2. Hypoxemia. 3. Respiratory acidosis. 4. Anemia. 5. Leukocytosis. 6. DVT 7. S/p code blue 06/19/20 DISCUSSION: The patient's x-ray is markedly abnormal with bilateral infiltrates. I suspect he has pulmonary fibrosis. Latest CXR is unchanged COVID 19 pcr and antigen both negative No anticoagulation for DVT due to anemia S/p IVC filter placement Continue assist-control mechanical ventilation; currently FiO2 reduced to 60%; SaO2 100%, broad-spectrum antibiotics. Transfusion as needed. Will decrease PEEP to 5; Scheduled for catheter and HD per renal I will follow carefully. Hugo Carl Omar Syed MD Jun 20, 2020 09:28
--- NOTE | 2020-06-20 11:40 | NUR ---
NURSE NOTES: Obtained telephone consent for Non-tunneled hemodialysis catheter placement per Dr. Honeycutt from patient's daughter Blanca Cedeño, . Also daughter consented to patient receiving hemodialysis inpatient, Zoey SANTANA second witness. Consent placed in chart. Per Ms. Blanca Cedeño, in case of Emergency, patient's sister and Ms. Cedeño's aunt, Stephy Cedeño , can also sign for consent. Noted. Charge nurse made aware. Will continue to monitor patient.
[2020-06-20 12:00] VITALS: BP 122/72
--- NOTE | 2020-06-20 12:00 | NUR ---
NURSE NOTES: Patient finally agreed to place blankets and florina hugger. Will continue to monitor patient.
--- NOTE | 2020-06-20 13:19 | Cardiac Electrophysiology PN ---
Assessment/Plan Assessment/Plan 1. Vent-dependent respirator failure. S/P tracheostomy. Chest x-ray is suspicious for extensive bilateral pneumonia or ARDS. His creatinine is 3.2. Off isolation EF 50%. Ruled out for NE. BNP 95539. On iv Abx 2. Tachycardia, likely due to respiratory failure. 3. Right femoral vein DVT. S/P IVC filter 06/18 4. Dysphagia, status post PEG placement. 5. Renal failure. Awaiting Iron and his first HD today by Dr. Honeycutt. 6. Severe anemia, S/P PRBC DW RN Subjective Subjective On the Vent off isolation. On 60% Fio2 and PEEP. S/P IVC filter . S/P 1 unit PRBC. Scheduled for Iron and HD today Objective Last 24 Hour Vital Signs Date Time Temp Pulse Resp B/P (MAP) Pulse Ox O2 Delivery O2 Flow Rate FiO2 06/20/20 12:00 90.7 63 20 122/72 (89) 99 06/20/20 12:00 63 06/20/20 12:00 55 06/20/20 12:00 Mechanical Ventilator Mechanical Ventilator 06/20/20 09:20 60 20 55 06/20/20 08:00 60 06/20/20 08:00 90.7 65 20 126/76 (93) 100 06/20/20 08:00 60 06/20/20 08:00 Mechanical Ventilator Mechanical Ventilator 06/20/20 07:10 54 19 60 06/20/20 05:00 58 24 60 06/20/20 04:00 61 06/20/20 04:00 97.0 60 20 132/70 (90) 100 06/20/20 04:00 Mechanical Ventilator Mechanical Ventilator 06/20/20 04:00 60 06/20/20 03:30 59 23 60 06/20/20 01:20 70 24 60 06/20/20 00:00 60 06/20/20 00:00 97.4 60 20 128/60 (82) 99 06/20/20 00:00 Mechanical Ventilator Mechanical Ventilator 06/19/20 23:31 59 06/19/20 22:37 66 23 60 06/19/20 21:25 62 24 60 06/19/20 20:00 97.6 64 17 123/71 (88) 100 06/19/20 20:00 Mechanical Ventilator Mechanical Ventilator 06/19/20 20:00 60 06/19/20 19:33 64 06/19/20 19:20 60 22 60 06/19/20 16:56 67 26 60 06/19/20 16:30 74 20 70 06/19/20 16:00 Mechanical Ventilator 06/19/20 16:00 91.2 65 18 130/77 (94) 96 06/19/20 15:52 50 06/19/20 15:48 65 06/19/20 15:04 65 24 100 Intake and Output 06/19/20 06/20/20 19:00 07:00 Intake Total 1050 ml 645 ml Output Total 126 ml 275 ml Balance 924 ml 370 ml Free Water 340 ml 150 ml IV Total 55 ml Tube Feeding 600 ml 440 ml Other 110 ml Output Urine Total 125 ml 275 ml Stool Total 1 ml Laboratory Tests Test 06/19/20 16:38 06/19/20 17:07 06/20/20 03:50 06/20/20 06:37 Arterial Blood pH 7.169 (7.350-7.450) Arterial Blood Partial Pressure CO2 95.6 mmHg (35.0-45.0) *H Arterial Blood Partial Pressure O2 317.7 mmHg (75.0-100.0) H Arterial Blood HCO3 34.0 mmol/L (22.0-26.0) H Arterial Blood Oxygen Saturation 99.3 % (95-100) Arterial Blood Base Excess 4.0 (-2-2) H Joe Test Positive POC Whole Blood Glucose Pending 165 MG/DL (74-106) H White Blood Count 12.5 K/UL (4.8-10.8) H Red Blood Count 2.79 M/UL (4.70-6.10) L Hemoglobin 8.0 G/DL (14.2-18.0) L Hematocrit 26.7 % (42.0-52.0) L Mean Corpuscular Volume 96 FL (80-99) Mean Corpuscular Hemoglobin 28.8 PG (27.0-31.0) Mean Corpuscular Hemoglobin Concent 30.1 G/DL (32.0-36.0) L Red Cell Distribution Width 16.3 % (11.6-14.8) H Platelet Count 247 K/UL (150-450) Mean Platelet Volume 8.3 FL (6.5-10.1) Neutrophils (%) (Auto) 82.5 % (45.0-75.0) H Lymphocytes (%) (Auto) 6.3 % (20.0-45.0) L Monocytes (%) (Auto) 7.2 % (1.0-10.0) Eosinophils (%) (Auto) 3.4 % (0.0-3.0) H Basophils (%) (Auto) 0.6 % (0.0-2.0) Sodium Level 140 MMOL/L (136-145) Potassium Level 3.8 MMOL/L (3.5-5.1) Chloride Level 103 MMOL/L (98-107) Carbon Dioxide Level 34 MMOL/L (21-32) H Anion Gap 3 mmol/L (5-15) L Blood Urea Nitrogen 82 mg/dL (7-18) H Creatinine 3.9 MG/DL (0.55-1.30) H Estimat Glomerular Filtration Rate 19.8 mL/min (>60) Glucose Level 179 MG/DL (74-106) H Calcium Level 8.4 MG/DL (8.5-10.1) L Phosphorus Level 4.9 MG/DL (2.5-4.9) Magnesium Level 2.5 MG/DL (1.8-2.4) H Total Bilirubin 0.4 MG/DL (0.2-1.0) Aspartate Amino Transf (AST/SGOT) 550 U/L (15-37) H Alanine Aminotransferase (ALT/SGPT) 451 U/L (12-78) H Alkaline Phosphatase 801 U/L (46-116) H Total Protein 7.4 G/DL (6.4-8.2) Albumin 1.6 G/DL (3.4-5.0) L Globulin 5.8 g/dL Albumin/Globulin Ratio 0.3 (1.0-2.7) L Test 06/20/20 11:51 POC Whole Blood Glucose 170 MG/DL (74-106) H Objective HEAD AND NECK: Status post tracheostomy. LUNGS: Coarse rhonchi and basilar rales. CARDIOVASCULAR: Shows irregular S1 and S2 with no gallop. ABDOMEN: Soft. Status post G-tube. EXTREMITIES: No pitting edema. Lance Mcguire MD Jun 20, 2020 13:19
--- NOTE | 2020-06-20 14:22 | Surgery Progress Note ---
Surgery Progress Note Subjective Symptoms: improved, tolerating diet, passing flatus, BM Objective Last 24 Hour Vital Signs Date Time Temp Pulse Resp B/P (MAP) Pulse Ox O2 Delivery O2 Flow Rate FiO2 06/20/20 13:05 68 22 55 06/20/20 12:00 90.7 63 20 122/72 (89) 99 06/20/20 12:00 63 06/20/20 12:00 55 06/20/20 12:00 Mechanical Ventilator Mechanical Ventilator 06/20/20 11:00 63 20 55 06/20/20 09:20 60 20 55 06/20/20 08:00 60 06/20/20 08:00 90.7 65 20 126/76 (93) 100 06/20/20 08:00 60 06/20/20 08:00 Mechanical Ventilator Mechanical Ventilator 06/20/20 07:10 54 19 60 06/20/20 05:00 58 24 60 06/20/20 04:00 61 06/20/20 04:00 97.0 60 20 132/70 (90) 100 06/20/20 04:00 Mechanical Ventilator Mechanical Ventilator 06/20/20 04:00 60 06/20/20 03:30 59 23 60 06/20/20 01:20 70 24 60 06/20/20 00:00 60 06/20/20 00:00 97.4 60 20 128/60 (82) 99 06/20/20 00:00 Mechanical Ventilator Mechanical Ventilator 06/19/20 23:31 59 06/19/20 22:37 66 23 60 06/19/20 21:25 62 24 60 06/19/20 20:00 97.6 64 17 123/71 (88) 100 06/19/20 20:00 Mechanical Ventilator Mechanical Ventilator 06/19/20 20:00 60 06/19/20 19:33 64 06/19/20 19:20 60 22 60 06/19/20 16:56 67 26 60 06/19/20 16:30 74 20 70 06/19/20 16:00 Mechanical Ventilator 06/19/20 16:00 91.2 65 18 130/77 (94) 96 06/19/20 15:52 50 06/19/20 15:48 65 06/19/20 15:04 65 24 100 I&O Intake and Output0 06/19/20 06/20/20 19:00 07:00 Intake Total 1050 ml 645 ml Output Total 126 ml 275 ml Balance 924 ml 370 ml Free Water 340 ml 150 ml IV Total 55 ml Tube Feeding 600 ml 440 ml Other 110 ml Output Urine Total 125 ml 275 ml Stool Total 1 ml Dressing: saturated Cardiovascular: RSR Respiratory: decreased breath sounds Abdomen: non-tender, present bowel sounds Extremities: no tenderness, no cyanosis Laboratory Tests Test 06/19/20 16:38 06/19/20 17:07 06/20/20 03:50 06/20/20 06:37 Arterial Blood pH 7.169 (7.350-7.450) Arterial Blood Partial Pressure CO2 95.6 mmHg (35.0-45.0) *H Arterial Blood Partial Pressure O2 317.7 mmHg (75.0-100.0) H Arterial Blood HCO3 34.0 mmol/L (22.0-26.0) H Arterial Blood Oxygen Saturation 99.3 % (95-100) Arterial Blood Base Excess 4.0 (-2-2) H Joe Test Positive POC Whole Blood Glucose Pending 165 MG/DL (74-106) H White Blood Count 12.5 K/UL (4.8-10.8) H Red Blood Count 2.79 M/UL (4.70-6.10) L Hemoglobin 8.0 G/DL (14.2-18.0) L Hematocrit 26.7 % (42.0-52.0) L Mean Corpuscular Volume 96 FL (80-99) Mean Corpuscular Hemoglobin 28.8 PG (27.0-31.0) Mean Corpuscular Hemoglobin Concent 30.1 G/DL (32.0-36.0) L Red Cell Distribution Width 16.3 % (11.6-14.8) H Platelet Count 247 K/UL (150-450) Mean Platelet Volume 8.3 FL (6.5-10.1) Neutrophils (%) (Auto) 82.5 % (45.0-75.0) H Lymphocytes (%) (Auto) 6.3 % (20.0-45.0) L Monocytes (%) (Auto) 7.2 % (1.0-10.0) Eosinophils (%) (Auto) 3.4 % (0.0-3.0) H Basophils (%) (Auto) 0.6 % (0.0-2.0) Sodium Level 140 MMOL/L (136-145) Potassium Level 3.8 MMOL/L (3.5-5.1) Chloride Level 103 MMOL/L (98-107) Carbon Dioxide Level 34 MMOL/L (21-32) H Anion Gap 3 mmol/L (5-15) L Blood Urea Nitrogen 82 mg/dL (7-18) H Creatinine 3.9 MG/DL (0.55-1.30) H Estimat Glomerular Filtration Rate 19.8 mL/min (>60) Glucose Level 179 MG/DL (74-106) H Calcium Level 8.4 MG/DL (8.5-10.1) L Phosphorus Level 4.9 MG/DL (2.5-4.9) Magnesium Level 2.5 MG/DL (1.8-2.4) H Total Bilirubin 0.4 MG/DL (0.2-1.0) Aspartate Amino Transf (AST/SGOT) 550 U/L (15-37) H Alanine Aminotransferase (ALT/SGPT) 451 U/L (12-78) H Alkaline Phosphatase 801 U/L (46-116) H Total Protein 7.4 G/DL (6.4-8.2) Albumin 1.6 G/DL (3.4-5.0) L Globulin 5.8 g/dL Albumin/Globulin Ratio 0.3 (1.0-2.7) L Test 06/20/20 11:51 POC Whole Blood Glucose 170 MG/DL (74-106) H Plan Problems: (1) Leukocytosis Assessment & Plan: 54-year-old male multiple comorbidities admitted for abnormal chest x-ray potentially pneumonia leukocytosis abnormal labs. Patient identified to have a prior left BKA surgical sutures still in place as well as a surgical sacral wound with sutures in place. Considerations of dehiscence being identified and potential etiology of infection. After evaluation unlikely source of infection though the sacral wound was looked to be dehiscing at the inferior aspect. No acute surgical mention at this time We will discussed care plan with PCP Recommend follow-up with initial surgeon considerations of removal of surgical sutures Care plan initiated worsening lft's US ordered ? shayla (2) Surgical wound dehiscence Assessment & Plan: Patient identified to have a left BKA surgical sutures in place flap looks like it is taken well no signs of infection at this time no signs of seroma hematoma or drainage. Unknown exact length or duration of potential prior left BKA and until then recommend leaving sutures in place as it may be too early though it does look well-healed. If able to obtain prior records we will be happy to remove sutures otherwise will need follow-up with primary surgeon furthermore patient identified to have a surgical wound in the sacral area seems he probably potentially had a stage IV sacral decubitus ulcer that had debridement and primary closure. Fortunately. Sutures are still in place and it looks like the inferior aspect may be slowly dehiscing. There is no significant drainage no foul odor no signs of active infection unknown if bone was palpable prior. Can consider removing surgical sutures but again would recommend obtaining prior records of possible prior to doing so. Also recommend following up with primary surgeon as this may need ongoing continued care. Will follow with recommendations and as information is available. Continue current care plan. Wash wounds daily with normal saline. Apply skin protectant Optifoam dressing. Turn every 2 hours. Offload pressure with pillows and air mattress. Nutritional optimization. (3) History of left below knee amputation (4) Malnutrition Assessment & Plan: DAILY ESTIMATED NEEDS: Needs based on Wound, critical care, underweight/ 55.5kg 25-33 kcals/kg 1415-9452 total kcals 1.25-2 g protein/kg 69-111 g total protein 25-30 mL/kg 4126-9883 total fluid mLs NUTRITION DIAGNOSIS: * Swallowing difficulty R/T respiratory status as evidenced by pt is trach/vent dep, PEG dep, NPO at this time. CURRENT TF:NPO ENTERAL NUTRITION RECOMMENDATIONS: Nepro @ 40ml/hr x 24 hrs to provide 960ml, 1728kcal, 78g prot, 698ml free water * Rec to continue CRYSTAL MACHINING COORDINATOR TF of Nepro (K 5.8, 5.0) * Rec goal rate of 40ml/hr x 24 hrs * HOB over 30 degrees/ water flush per MD ADDITIONAL RECOMMENDATIONS: * Per SNF: HT=69" QZ=[id number] -> rec daily calibrated bedscale wt * Monitor lytes: elev K * Wound healing: f/up w/ WC eval add Vit C 500mg QD, Av BID via PEG (5) Anemia (6) KERRI (acute kidney injury) (7) Acute respiratory failure (8) Hyperkalemia (9) Anemia (10) Abnormal laboratory test result (11) Chronic respiratory failure Azar Mares Jun 20, 2020 14:22
--- NOTE | 2020-06-20 14:30 | NUR ---
NURSE NOTES: Dr. Lashonda Amador at nurse station, made aware that patient's temperature was 90.7 F axillary in AM, patient noted refusing blankets and florina hugger. Currently patient has agreed for blankets and florina hugger. Dr. Lashonda Amador acknowledged and ordered TSH and cortisol AM lab draw for tomorrow morning. Orders entered, noted, and carried out. Will continue to monitor patient.
--- NOTE | 2020-06-20 14:43 | Infectious Diseases Prog Note ---
Assessment/Plan Assessment/Plan IMPRESSION: Pneumonia with Pseudomonas & Stenotrophomonas Hypothermia COVID19 X 2: negative Ventilator-dependent respiratory failure, Diabetes mellitus type 2, Hypertension, History of left BKA, Hypertension, anemia, Major depression, Pressure ulcer, Elevated transaminase, Hyperkalemia. Anemia R leg DVT s/p IVC filter Sacral osteomyelitis Severe anemia Acute renal failure ESRD RECOMMENDATION: Continue meropenem & Levaquin Continue Linezolid until 07/18 Check TSH & Cortisol level Case was D/W RN Subjective ROS Limited/Unobtainable: Yes Constitutional: Reports: other - hypothermic Allergies: Coded Allergies: No Known Allergies (Unverified , 06/13/20) Objective Last 24 Hour Vital Signs Date Time Temp Pulse Resp B/P (MAP) Pulse Ox O2 Delivery O2 Flow Rate FiO2 06/20/20 13:05 68 22 55 06/20/20 12:00 90.7 63 20 122/72 (89) 99 06/20/20 12:00 63 06/20/20 12:00 55 06/20/20 12:00 Mechanical Ventilator Mechanical Ventilator 06/20/20 11:00 63 20 55 06/20/20 09:20 60 20 55 06/20/20 08:00 60 06/20/20 08:00 90.7 65 20 126/76 (93) 100 06/20/20 08:00 60 06/20/20 08:00 Mechanical Ventilator Mechanical Ventilator 06/20/20 07:10 54 19 60 06/20/20 05:00 58 24 60 06/20/20 04:00 61 06/20/20 04:00 97.0 60 20 132/70 (90) 100 06/20/20 04:00 Mechanical Ventilator Mechanical Ventilator 06/20/20 04:00 60 06/20/20 03:30 59 23 60 06/20/20 01:20 70 24 60 06/20/20 00:00 60 06/20/20 00:00 97.4 60 20 128/60 (82) 99 06/20/20 00:00 Mechanical Ventilator Mechanical Ventilator 06/19/20 23:31 59 06/19/20 22:37 66 23 60 06/19/20 21:25 62 24 60 06/19/20 20:00 97.6 64 17 123/71 (88) 100 06/19/20 20:00 Mechanical Ventilator Mechanical Ventilator 06/19/20 20:00 60 06/19/20 19:33 64 06/19/20 19:20 60 22 60 06/19/20 16:56 67 26 60 06/19/20 16:30 74 20 70 06/19/20 16:00 Mechanical Ventilator 06/19/20 16:00 91.2 65 18 130/77 (94) 96 06/19/20 15:52 50 06/19/20 15:48 65 06/19/20 15:04 65 24 100 Height (Feet): 5 Height (Inches): 8.00 Weight (Pounds): 143 HEENT: mucous membranes moist, status post trach Respiratory/Chest: lungs clear, other - on ventilator Cardiovascular: normal rate Abdomen: soft, non tender, other - GT in place Extremities: no edema Neurologic/Psychiatric: alert, responsive Laboratory Tests Test 06/19/20 16:38 06/19/20 17:07 06/20/20 03:50 06/20/20 06:37 Arterial Blood pH 7.169 (7.350-7.450) Arterial Blood Partial Pressure CO2 95.6 mmHg (35.0-45.0) *H Arterial Blood Partial Pressure O2 317.7 mmHg (75.0-100.0) H Arterial Blood HCO3 34.0 mmol/L (22.0-26.0) H Arterial Blood Oxygen Saturation 99.3 % (95-100) Arterial Blood Base Excess 4.0 (-2-2) H Joe Test Positive POC Whole Blood Glucose Pending 165 MG/DL (74-106) H White Blood Count 12.5 K/UL (4.8-10.8) H Red Blood Count 2.79 M/UL (4.70-6.10) L Hemoglobin 8.0 G/DL (14.2-18.0) L Hematocrit 26.7 % (42.0-52.0) L Mean Corpuscular Volume 96 FL (80-99) Mean Corpuscular Hemoglobin 28.8 PG (27.0-31.0) Mean Corpuscular Hemoglobin Concent 30.1 G/DL (32.0-36.0) L Red Cell Distribution Width 16.3 % (11.6-14.8) H Platelet Count 247 K/UL (150-450) Mean Platelet Volume 8.3 FL (6.5-10.1) Neutrophils (%) (Auto) 82.5 % (45.0-75.0) H Lymphocytes (%) (Auto) 6.3 % (20.0-45.0) L Monocytes (%) (Auto) 7.2 % (1.0-10.0) Eosinophils (%) (Auto) 3.4 % (0.0-3.0) H Basophils (%) (Auto) 0.6 % (0.0-2.0) Sodium Level 140 MMOL/L (136-145) Potassium Level 3.8 MMOL/L (3.5-5.1) Chloride Level 103 MMOL/L (98-107) Carbon Dioxide Level 34 MMOL/L (21-32) H Anion Gap 3 mmol/L (5-15) L Blood Urea Nitrogen 82 mg/dL (7-18) H Creatinine 3.9 MG/DL (0.55-1.30) H Estimat Glomerular Filtration Rate 19.8 mL/min (>60) Glucose Level 179 MG/DL (74-106) H Calcium Level 8.4 MG/DL (8.5-10.1) L Phosphorus Level 4.9 MG/DL (2.5-4.9) Magnesium Level 2.5 MG/DL (1.8-2.4) H Total Bilirubin 0.4 MG/DL (0.2-1.0) Aspartate Amino Transf (AST/SGOT) 550 U/L (15-37) H Alanine Aminotransferase (ALT/SGPT) 451 U/L (12-78) H Alkaline Phosphatase 801 U/L (46-116) H Total Protein 7.4 G/DL (6.4-8.2) Albumin 1.6 G/DL (3.4-5.0) L Globulin 5.8 g/dL Albumin/Globulin Ratio 0.3 (1.0-2.7) L Test 06/20/20 11:51 POC Whole Blood Glucose 170 MG/DL (74-106) H Current Medications Medications (Trade) Dose Ordered Sig/Maryjane Route PRN Reason Start Time Stop Time Status Last Admin Dose Admin Acetaminophen (Tylenol) 650 mg Q4H PRN GT Mild Pain (Pain Scale 1-3) 06/18/20 23:00 07/18/20 22:59 Acetaminophen (Tylenol) 650 mg Q4HR PRN GT FEVER 06/14/20 09:45 07/14/20 09:44 06/19/20 20:45 Aluminum Hydroxide (Amphojel) 1,920 mg Q6H GT 06/17/20 10:00 07/17/20 09:59 06/20/20 10:20 Ascorbic Acid (Vitamin C) 500 mg DAILY ORAL 06/16/20 09:00 07/16/20 08:59 06/20/20 08:42 Chlorhexidine Gluconate (Inés-Hex 2%) 1 applic DAILY@2000 TOPIC 06/14/20 20:00 09/12/20 19:59 06/19/20 20:45 Dextrose (Dextrose 50%) 25 ml Q30M PRN IV Hypoglycemia 06/14/20 03:45 09/12/20 03:44 Dextrose (Dextrose 50%) 50 ml Q30M PRN IV Hypoglycemia 06/14/20 03:45 09/12/20 03:44 Epoetin Bonilla (Epoetin Bonilla-EPBX(NON ESRD)) 10,000 unit TUE-TUE-TUE SUBQ 06/18/20 21:00 09/16/20 20:59 06/18/20 20:57 Heparin Sodium/ Sodium Chloride (Heparin 1000 units/500ml Premix) 1,000 unit ONCE PRN INJ radiology procedure 06/20/20 08:30 06/22/20 08:29 Levofloxacin (Levaquin) 250 mg DAILY GT 06/19/20 10:30 06/26/20 10:29 06/20/20 08:42 Lidocaine HCl (Xylocaine 1% 30ml) 30 ml ONCE PRN INJ radiology procdure 06/20/20 08:30 06/22/20 08:29 Linezolid (Zyvox) 600 mg EVERY 12 HOURS GT 06/19/20 21:00 06/24/20 20:59 06/20/20 08:42 Meropenem 500 mg/ Sodium Chloride 55 ml @ 110 mls/hr Q12HR@0600,1800 IVPB 06/18/20 18:00 06/23/20 17:59 06/20/20 05:22 Pantoprazole (Protonix) 40 mg EVERY 12 HOURS IVP 06/14/20 11:45 07/14/20 11:44 06/20/20 08:42 Paul Amador MD Jun 20, 2020 14:43
--- NOTE | 2020-06-20 15:33 | NUR ---
CASE MANAGEMENT: REVIEW 06/20/2020 SI: SEPSIS. PNA. VS: T 90.7 HR 63 RR 20 B/P 122/72 SATS 99% ON MECH VENT FIO2 55 LABS: WBC 12.5 CO2 34 BUN82 CR 3.9 GLU 179 CA 8.4 MG 2.5 AST 550 ALT 451 ALP 801 IS:PROTONIX IV Q12H LINEZOLID GT Q12H LEVAQUIN GT QD MEROPENEM IV Q12H SDU DCP: [facility] PLAN OF CARE: NON TUNNELED CATH FOR HD
--- NOTE | 2020-06-20 15:37 | NUR ---
INSURANCE CLINICALS FAXED TO [facility] CM: TEVIN # [phone] EXT [id number] FAX# [phone] REVIEWS/CLINICALS
--- NOTE | 2020-06-20 15:40 | NUR ---
RADIOLOGY NOTE: Right Internal Jugular 3L Iron Placed.
--- NOTE | 2020-06-20 15:52 | NUR ---
NURSE NOTES: Patient's temperature currently noted at 95.4 F, patient is in blankets and florina hugger. Will continue to monitor patient.
--- NOTE | 2020-06-20 15:53 | Pre-Procedure Note/Attestation ---
Pre-Procedure Note/Attestation Complete Prior to Procedure Planned Procedure: not applicable Procedure Narrative: andrew Indications for Procedure Pre-Operative Diagnosis: renal failure Attestation I attest that I discussed the nature of the procedure; its benefits; risks and complications; and alternatives (and the risks and benefits of such alternatives), prior to the procedure, with the patient (or the patient's legal sales representative printing paper). I attest that, if there was a reasonable possibility of needing a blood tra nsfusion, the patient (or the patient's legal sales representative printing paper) was given the [facility] standardized written summary, pursuant to the Rex Amparo Blood Safety Act ([place] Health and Safety Code # 1645, as amended). I attest that I re-evaluated the patient just prior to the surgery and that there has been no change in the patient's H&P, except as documented below: Salo Thomas MD Jun 20, 2020 15:53
--- NOTE | 2020-06-20 15:54 | Brief Operative Note ---
Immediate Post Operative Note Operative Note Pre-op Diagnosis: renal failure Procedure: R CRISTA morales Post-op Diagnosis: same as pre-op Surgeon: Froy THOMAS Anesthesia: local Specimen: none Complications: none Fluids: none Implant(s) used?: No Salo Thomas MD Jun 20, 2020 15:54
[2020-06-20 16:00] VITALS: BP 116/70
--- NOTE | 2020-06-20 16:02 | NUR ---
NURSE NOTES: Called and left message to Dr. Honeycutt that non-tunneled dialysis has been placed and per Dr. Martha buck to use non-tunneled catheter for dialysis. Will continue to monitor patient.
--- NOTE | 2020-06-20 17:54 | Diagnostic Imaging Report ---
Indication: Acute renal failure Technique: Procedure performed at bedside. Procedural timeout performed. Total sterile technique, including sterile probe cover and sterile gel, sterile gloves, hand hygiene, hat, mask, sterile gown, large sterile drape, and preparation with 2% chlorhexidine utilized. Local anesthesia with 1% lidocaine. Ultrasound reveals patent compressible right internal jugular vein. Under real-time ultrasound guidance with real-time visualization of needle entry into the vein, puncture right internal jugular vein using noted is micropuncture needle, passage 0.018 guidewire, insertion 4 Armenian micropuncture introducer, passage 0.035 guidewire, over which was passed serial dilators and then a 13 Armenian 15 cm triple-lumen temporary dialysis catheter. Guidewire was removed. Catheter ports were aspirated and flushed. The catheter was fixed to the skin. Patient tolerated procedure well. A chest x-ray was obtained, documents catheter tip position at the cavoatrial junction. Comparison: Chest radiograph compared to 06/19/2020 Findings: As above Impression: Successful bedside placement of right transjugular temporary dialysis catheter, as described.
--- NOTE | 2020-06-20 18:00 | NUR ---
NURSE NOTES: Patient noted with moments of confusion and history of pulling out medical devices. Patient noted non-compliant. Contacted and informed Dr. Delacruz of assessments, per Dr. Delacruz okay to place patient on bilateral soft wrist restraints. Charge nurse made aware. Order entered, noted, and carried out. Will continue to monitor patient.
--- NOTE | 2020-06-20 19:10 | NUR ---
NURSE NOTES: Received report from MAX Bond. Pt is lying down in bed, awake, not in distress. Tolerating vent setting of AC16, TV 500, FiO2 55%, PEEP 5, with O2 sat 97%. Iron cath in the R neck, no bleeding noted. IV line is intact and patent. GT is intact and patent running Nepro @ 40cc/hr. Sparrow catheter is intact and patent. Bed is locked and in lowest position, bed alarm on, call light is within reach. Will continue to monitor the pt. Will continue with the plan of care.
--- NOTE | 2020-06-20 19:19 | NUR ---
NURSE HAND-OFF REPORT: Important Events on Shift: Patient Status: Stable Diet: Nepro 40 ml/hr Pending Orders: None Pending Results/Labs:None Pending MD notification:None Latest Vital Signs: Temperature 95.4 , Pulse 71 , B/P 116 /70 , Respiratory Rate 19 , O2 SAT 99 , Mechanical Ventilator, O2 Flow Rate 15.0 . Vital Sign Comment: Stable EKG Rhythm: Sinus Rhythm Rhythm change?: N MD Notified?: Jennifer Lipscomb MD Response: No New Orders Received Latest Santiago Fall Score: 35 Fall Risk: Medium Risk Safety Measures: Call light Within Reach, Bed Alarm Zone 1, Side Rails Side Rails x3, Bed position Low and Locked. Fall Precautions: Yellow Socks Yellow Gown Door Sign Patient Fall Education Report given to MAX Márquez.
--- NOTE | 2020-06-20 19:38 | General Progress Note ---
Subjective ROS Limited/Unobtainable: Yes Allergies: Coded Allergies: No Known Allergies (Unverified , 06/13/20) Objective Last 24 Hour Vital Signs Date Time Temp Pulse Resp B/P (MAP) Pulse Ox O2 Delivery O2 Flow Rate FiO2 06/20/20 19:06 71 19 55 06/20/20 16:45 70 17 55 06/20/20 16:00 Mechanical Ventilator Mechanical Ventilator 06/20/20 16:00 55 06/20/20 16:00 95.4 72 20 116/70 (85) 99 06/20/20 16:00 70 06/20/20 15:05 71 22 55 06/20/20 13:05 68 22 55 06/20/20 12:00 90.7 63 20 122/72 (89) 99 06/20/20 12:00 63 06/20/20 12:00 55 06/20/20 12:00 Mechanical Ventilator Mechanical Ventilator 06/20/20 11:00 63 20 55 06/20/20 09:20 60 20 55 06/20/20 08:00 60 06/20/20 08:00 90.7 65 20 126/76 (93) 100 06/20/20 08:00 60 06/20/20 08:00 Mechanical Ventilator Mechanical Ventilator 06/20/20 07:10 54 19 60 06/20/20 05:00 58 24 60 06/20/20 04:00 61 06/20/20 04:00 97.0 60 20 132/70 (90) 100 06/20/20 04:00 Mechanical Ventilator Mechanical Ventilator 06/20/20 04:00 60 06/20/20 03:30 59 23 60 06/20/20 01:20 70 24 60 06/20/20 00:00 60 06/20/20 00:00 97.4 60 20 128/60 (82) 99 06/20/20 00:00 Mechanical Ventilator Mechanical Ventilator 06/19/20 23:31 59 06/19/20 22:37 66 23 60 06/19/20 21:25 62 24 60 06/19/20 20:00 97.6 64 17 123/71 (88) 100 06/19/20 20:00 Mechanical Ventilator Mechanical Ventilator 06/19/20 20:00 60 Intake and Output 06/19/20 06/20/20 19:00 07:00 Intake Total 1050 ml 645 ml Output Total 126 ml 275 ml Balance 924 ml 370 ml Free Water 340 ml 150 ml IV Total 55 ml Tube Feeding 600 ml 440 ml Other 110 ml Output Urine Total 125 ml 275 ml Stool Total 1 ml Laboratory Tests 06/20/20 03:50: White Blood Count 12.5H, Red Blood Count 2.79L, Hemoglobin 8.0L, Hematocrit 26.7L, Mean Corpuscular Volume 96, Mean Corpuscular Hemoglobin 28.8, Mean Corpuscular Hemoglobin Concent 30.1L, Red Cell Distribution Width 16.3H, Platelet Count 247, Mean Platelet Volume 8.3, Neutrophils (%) (Auto) 82.5H, Ly mphocytes (%) (Auto) 6.3L, Monocytes (%) (Auto) 7.2, Eosinophils (%) (Auto) 3.4H , Basophils (%) (Auto) 0.6, Sodium Level 140, Potassium Level 3.8, Chloride Level 103, Carbon Dioxide Level 34H, Anion Gap 3L, Blood Urea Nitrogen 82H, Creatinine 3.9H, Estimat Glomerular Filtration Rate 19.8, Glucose Level 179H, Calcium Level 8.4L, Phosphorus Level 4.9, Magnesium Level 2.5H, Total Bilirubin 0.4, Aspartate Amino Transf (AST/SGOT) 550H, Alanine Aminotransferase (ALT/SGPT) 451H, Alkaline Phosphatase 801H, Total Protein 7.4, Albumin 1.6L, Globulin 5.8, Albumin/Globulin Ratio 0.3L 06/20/20 06:37: POC Whole Blood Glucose 165H 06/20/20 11:51: POC Whole Blood Glucose 170H 06/20/20 18:26: POC Whole Blood Glucose 150H Height (Feet): 5 Height (Inches): 8.00 Weight (Pounds): 143 Assessment/Plan Problem List: (1) Anemia ICD Codes: D64.9 - Anemia, unspecified SNOMED: 300560100 (2) KERRI (acute kidney injury) ICD Codes: N17.9 - Acute kidney failure, unspecified SNOMED: 8717709, 04522315 (3) Acute respiratory failure ICD Codes: J96.00 - Acute respiratory failure, unspecified whether with hypoxia or hypercapnia SNOMED: 78835568 Qualifiers: Qualified Codes: J96.02 - Acute respiratory failure with hypercapnia (4) Hyperkalemia ICD Codes: E87.5 - Hyperkalemia SNOMED: 41905459 (5) Abnormal laboratory test result ICD Codes: R89.9 - Unspecified abnormal finding in specimens from other organs, systems and tissues SNOMED: 388850430 (6) Anemia ICD Codes: D64.9 - Anemia, unspecified SNOMED: 509538206 Status: progressing Assessment/Plan: agitated trying to pull things so consulted dr ordoñez for agitation lyte abnormality sepsis pulm edema arf on high support trach and peg Neida Apple MD Jun 20, 2020 19:38
[2020-06-20 20:00] VITALS: BP 121/63
[2020-06-20] MEDS: Dyna-Hex 2% Top Sol 2oz TOPIC SCH (20:01)
[2020-06-20] MEDS: Epoetin Alfa-EPBX (NON ESRD)10,000 unit/ml vial SUBQ SCH (21:35)
--- NOTE | 2020-06-20 22:00 | NUR ---
NURSE NOTES: Initial assessment done. Evening medications given. Vital signs are stable. Tolerating vent setting saturating @ 97%. Will continue to monitor the pt.
[2020-06-21] VITALS: BP 112/67
--- NOTE | 2020-06-21 | NUR ---
NURSE NOTES: Bed bath done. Pt had moderate bowel movement. Dressings changed. Pt turned and repositioned. Skin by the restraints assessed. No bleeding by the Iron catheter noted. Will continue to monitor pt.
--- NOTE | 2020-06-21 02:00 | NUR ---
NURSE NOTES: Pt is asleep, no sign of distress. Tolerating vent setting with O2 of 96-98%. Tolerating G-tube feeding @ 40cc/hr. Will continue to monitor the pt.
[2020-06-21] MEDS: Aluminum Hydroxide Gel Susp 15ml GT SCH ×4 (03:12→22:13)
[2020-06-21 04:00] VITALS: BP 117/68
[2020-06-21] MEDS: Meropenem 500mg/NS 55ml IVPB SCH ×4 (05:01→17:02)
[2020-06-21 05:27] LABS: HEMATOCRIT 26.2 % (42.0-52.0); HEMOGLOBIN 7.7 G/DL (14.2-18.0); MEAN CORPUSCULAR VOLUME 97 FL (80-99); PLATELET COUNT 244 K/UL (150-450); RED BLOOD COUNT 2.71 M/UL (4.70-6.10); RED CELL DISTRIBUTION WIDTH 16.2 % (11.6-14.8); WHITE BLOOD COUNT 11.9 K/UL (4.8-10.8)
--- NOTE | 2020-06-21 05:30 | NUR ---
NURSE NOTES: Pt is awake, not in distress. Tolerating vent setting with O2 sat 96%. Vitals are stable. Sinus Rhythm on the monitor. Tolerating G-tube feeding with no residual. Will continue to monitor pt.
[2020-06-21 05:38] LABS: PHOSPHORUS 4.4 MG/DL (2.5-4.9)
[2020-06-21 05:41] LABS: ALBUMIN 1.5 G/DL (3.4-5.0); ALBUMIN/GLOBULIN RATIO 0.3 (1.0-2.7); BILIRUBIN,TOTAL 0.3 MG/DL (0.2-1.0); CREATININE 4.3 MG/DL (0.55-1.30); POTASSIUM 3.8 MMOL/L (3.5-5.1)
--- NOTE | 2020-06-21 06:30 | NUR ---
NURSE NOTES: Pt had bowel movement, yellowish, watery. Cleaned, barrier cream applied, dressing changed. Will continue to monitor pt.
--- NOTE | 2020-06-21 07:30 | NUR ---
NURSE NOTES: received patient report from jerson joy. patient is on bed awake, on vent at prescribed rate. tube feedings noted running. not in acute distress, cabrera in, patent and draining. Sr on the monitor. bed is low and locked for safety. will follow plan of care.
--- NOTE | 2020-06-21 07:31 | NUR ---
NURSE HAND-OFF REPORT: Important Events on Shift:None Patient Status: Full code Diet: Nepro @ 40cc/hr, continous Pending Orders: N Pending Results/Labs:N Pending MD notification:N Latest Vital Signs: Temperature 97.0 , Pulse 65 , B/P 117 /68 , Respiratory Rate 22 , O2 SAT 97 , Mechanical Ventilator, O2 Flow Rate 15.0 . Vital Sign Comment: stable EKG Rhythm: Sinus Rhythm Rhythm change?: N MD Notified?: Jennifer Lipscomb MD Response: No New Orders Received Latest Santiago Fall Score: 35 Fall Risk: Medium Risk Safety Measures: Call light Within Reach, Bed Alarm Zone 1, Side Rails Side Rails x3, Bed position Low and Locked. Fall Precautions: Yellow Socks Yellow Gown Door Sign Patient Fall Education Report given to MAX Arias.
[2020-06-21 08:00] VITALS: BP 123/73
[2020-06-21] MEDS: Pantoprazole Inj IVP SCH ×2 (08:59→20:06)
[2020-06-21] MEDS: Ascorbic Acid 500mg tab ORAL SCH (08:59)
[2020-06-21] MEDS: Levofloxacin 500mg tab GT SCH (08:59)
--- NOTE | 2020-06-21 11:56 | Pulmonology Progress Note ---
Subjective ROS Limited/Unobtainable: Yes Interval Events: S/p HD; remains on vent Constitutional: Reports: other - hypothermic HEENT: Repors: no symptoms Respiratory: Reports: no symptoms Cardiovascular: Reports: no symptoms Gastrointestinal/Abdominal: Reports: no symptoms Genitourinary: Reports: no symptoms Allergies: Coded Allergies: No Known Allergies (Unverified , 06/13/20) Objective Last 24 Hour Vital Signs Date Time Temp Pulse Resp B/P (MAP) Pulse Ox O2 Delivery O2 Flow Rate FiO2 06/21/20 10:18 Trach Collar 55.0 06/21/20 09:00 64 22 55 06/21/20 08:00 96.8 63 20 123/73 (90) 96 06/21/20 07:10 63 23 55 06/21/20 04:57 65 22 55 06/21/20 04:00 97.0 68 22 117/68 (84) 97 06/21/20 04:00 55 06/21/20 04:00 71 06/21/20 04:00 Mechanical Ventilator Mechanical Ventilator 06/21/20 02:57 68 22 55 06/21/20 01:38 65 22 55 06/21/20 00:00 Mechanical Ventilator Mechanical Ventilator 06/21/20 00:00 96.9 65 20 112/67 (82) 98 06/20/20 23:51 75 24 55 06/20/20 21:43 68 19 55 06/20/20 20:00 Mechanical Ventilator Mechanical Ventilator 06/20/20 20:00 55 06/20/20 20:00 97.3 71 20 121/63 (82) 97 06/20/20 20:00 70 06/20/20 19:06 71 19 55 06/20/20 16:45 70 17 55 06/20/20 16:00 Mechanical Ventilator Mechanical Ventilator 06/20/20 16:00 55 06/20/20 16:00 95.4 72 20 116/70 (85) 99 06/20/20 16:00 70 06/20/20 15:05 71 22 55 06/20/20 13:05 68 22 55 06/20/20 12:00 90.7 63 20 122/72 (89) 99 06/20/20 12:00 63 06/20/20 12:00 55 06/20/20 12:00 Mechanical Ventilator Mechanical Ventilator Intake and Output 06/20/20 06/21/20 19:00 07:00 Intake Total 70 ml 575 ml Output Total 150 ml Balance 70 ml 425 ml Free Water 30 ml 160 ml IV Total 55 ml Tube Feeding 40 ml 360 ml Output Urine Total 150 ml General Appearance: no acute distress HEENT: status post trach Respiratory: chest wall non-tender, lungs clear Cardiovascular: normal peripheral pulses, normal rate Abdomen: normal bowel sounds Extremities: no cyanosis Laboratory Tests 06/20/20 18:26: POC Whole Blood Glucose 150H 06/21/20 00:19: POC Whole Blood Glucose 115H 06/21/20 03:45: Sodium Level 139, Potassium Level 3.8, Chloride Level 103, Carbon Dioxide Level 33H, Anion Gap 3L, Blood Urea Nitrogen 90H, Creatinine 4.3H, Estimat Glomerular Filtration Rate 17.6, Glucose Level 135H, Uric Acid 7.7H, Calcium Level 8.0L, Phosphorus Level 4.4, Magnesium Level 2.8H, Total Bilirubin 0.3, Gamma Glutamyl Transpeptidase 162H, Aspartate Amino Transf (AST/SGOT) 661H, Alanine Aminotransferase (ALT/SGPT) 553H, Alkaline Phosphatase 918H, C-Reactive Protein, Quantitative 10.1H, Total Protein 7.4, Albumin 1.5L, Globulin 5.9, Albumin/Globulin Ratio 0.3L, Thyroid Stimulating Hormone (TSH) 7.385H, Cortisol AM Sample [Pending], Random Vancomycin Level 25.6 06/21/20 04:00: White Blood Count 11.9H, Red Blood Count 2.71L, Hemoglobin 7.7L, Hematocrit 26.2L, Mean Corpuscular Volume 97, Mean Corpuscular Hemoglobin 28.2, Mean Corpuscular Hemoglobin Concent 29.2L, Red Cell Distribution Width 16.2H, Platelet Count 244, Mean Platelet Volume 8.4, Neutrophils (%) (Auto) , Lymphocytes (%) (Auto) , Monocytes (%) (Auto) , Eosinophils (%) (Auto) , Basophils (%) (Auto) , Differential Total Cells Counted 100, Neutrophils % (Manual) 78H, Lymphocytes % (Manual) 10L, Monocytes % (Manual) 5, Eosinophils % (Manual) 6H, Basophils % (Manual) 0, Band Neutrophils 1, Nucleated Red Blood Cells 3, Platelet Estimate Adequate, Platelet Morphology Normal, Hypochromasia 2+, Anisocytosis 1+ 06/21/20 05:31: POC Whole Blood Glucose 143H Current Medications Medications (Trade) Dose Ordered Sig/Maryjane Route PRN Reason Start Time Stop Time Status Last Admin Dose Admin Acetaminophen (Tylenol) 650 mg Q4H PRN GT Mild Pain (Pain Scale 1-3) 06/18/20 23:00 07/18/20 22:59 Acetaminophen (Tylenol) 650 mg Q4HR PRN GT FEVER 06/14/20 09:45 07/14/20 09:44 06/19/20 20:45 Aluminum Hydroxide (Amphojel) 1,920 mg Q6H GT 06/17/20 10:00 07/17/20 09:59 06/21/20 09:01 Ascorbic Acid (Vitamin C) 500 mg DAILY ORAL 06/16/20 09:00 07/16/20 08:59 06/21/20 08:59 Dextrose (Dextrose 50%) 25 ml Q30M PRN IV Hypoglycemia 06/14/20 03:45 09/12/20 03:44 Dextrose (Dextrose 50%) 50 ml Q30M PRN IV Hypoglycemia 06/14/20 03:45 09/12/20 03:44 Epoetin Bonilla (Epoetin Bonilla-EPBX(NON ESRD)) 10,000 unit TUE-TUE-TUE SUBQ 06/18/20 21:00 09/16/20 20:59 06/20/20 21:35 Heparin Sodium/ Sodium Chloride (Heparin 1000 units/500ml Premix) 1,000 unit ONCE PRN INJ radiology procedure 06/20/20 08:30 06/22/20 08:29 Levofloxacin (Levaquin) 500 mg Q48H GT 06/21/20 09:00 06/28/20 08:59 06/21/20 08:59 Lidocaine HCl (Xylocaine 1% 30ml) 30 ml ONCE PRN INJ radiology procdure 06/20/20 08:30 06/22/20 08:29 Linezolid (Zyvox) 600 mg EVERY 12 HOURS GT 06/19/20 21:00 06/24/20 20:59 06/21/20 08:59 Meropenem 500 mg/ Sodium Chloride 55 ml @ 110 mls/hr Q24H IVPB 06/21/20 18:00 06/26/20 17:59 Pantoprazole (Protonix) 40 mg EVERY 12 HOURS IVP 06/14/20 11:45 07/14/20 11:44 06/21/20 08:59 Assessment/Plan Problems: (1) Acute respiratory failure Assessment/Plan IMPRESSION: 1. Chronic respiratory failure. 2. Hypoxemia. 3. Respiratory acidosis. 4. Anemia. 5. Leukocytosis. 6. DVT 7. S/p code blue 06/19/20 DISCUSSION: The patient's x-ray is markedly abnormal with bilateral infiltrates. I suspect he has pulmonary fibrosis. Latest CXR is unchanged COVID 19 pcr and antigen both negative No anticoagulation for DVT due to anemia S/p IVC filter placement Continue assist-control mechanical ventilation; currently FiO2 reduced to 60%; SaO2 100%, broad-spectrum antibiotics. Transfusion as needed. Will decrease PEEP to 5; S/p HD WIll decrease FiO2 as tolerated I will follow carefully. Hugo Carl Omar Syed MD Jun 21, 2020 11:56
[2020-06-21 12:00] VITALS: BP 128/95
--- NOTE | 2020-06-21 12:29 | Nephrology Progress Note ---
Assessment/Plan Problem List: (1) KERRI (acute kidney injury) (2) Acute respiratory failure (3) Chronic respiratory failure (4) Anemia (5) Hyperkalemia Assessment Acute on chronic renal failure Anemia Respiratory failure acute on chronic Respiratory acidosis and hypoxia Hyperkalemia Plan June 21: Patient due for dialysis today. Labs and medication list reviewed. Discussed with RN. Continue to monitor renal parameters. June 20: Patient had an episode of bradycardia last night. Serum creatinine rising. Patient continues to have respiratory acidosis. Discussed with RN Varun. Will order non tunneled dialysis catheter placement for initiation of dialysis treatment due to acute renal failure. Patient remains full code. I favor comfort care if bioethics consultation is sought and physicians on the team agreeable. June 19: No CHEM panel today. Low hemoglobin as of yesterday's lab results. Anemia management per Dr. Cueva. Continue to monitor renal parameters. June 18: Labs are reviewed. Hemoglobin lower. Creatinine higher. ABG not done yet. Patient full code. Continue per consultants. June 17: Labs reviewed. Hemoglobin low. Creatinine up to 3. Phosphorus levels elevated. Will start Amphojel via GT tube as a phosphorus binder. Monitor renal parameters. Check ABG. Continue per consultants. June 16: Labs reviewed. Serum creatinine mariana to 2.6. Abnormal electrolytes now normalized. Continue to monitor renal parameters and avoid nephrotoxic's. Continue to adjust pulmonary status as possible. June 15: ABG pH of 7.1. 2D echo suggestive of ejection fraction of 50%. Labs reviewed. Serum creatinine mariana. Will hold IV Lasix. Will give Kayexalat e for high potassium and 1 amp of sodium bicarb. Albumin IV bolus given. Continue per consultants. Continue to monitor renal parameters. Kidney ultrasound ordered. June 14: As follow Pulmonary evaluation Sparrow catheter Hold IV fluid IV fluid, until 2D echo results available Kayexalate for high potassium IV Protonix 2D echocardiogram Anemia work-up More labs ordered Subjective ROS Limited/Unobtainable: Yes Objective Objective Last 24 Hour Vital Signs Date Time Temp Pulse Resp B/P (MAP) Pulse Ox O2 Delivery O2 Flow Rate FiO2 06/21/20 11:00 69 19 55 06/21/20 10:18 Trach Collar 55.0 06/21/20 09:00 64 22 55 06/21/20 08:00 96.8 63 20 123/73 (90) 96 06/21/20 07:10 63 23 55 06/21/20 04:57 65 22 55 06/21/20 04:00 97.0 68 22 117/68 (84) 97 06/21/20 04:00 55 06/21/20 04:00 71 06/21/20 04:00 Mechanical Ventilator Mechanical Ventilator 06/21/20 02:57 68 22 55 06/21/20 01:38 65 22 55 06/21/20 00:00 Mechanical Ventilator Mechanical Ventilator 06/21/20 00:00 96.9 65 20 112/67 (82) 98 06/20/20 23:51 75 24 55 06/20/20 21:43 68 19 55 06/20/20 20:00 Mechanical Ventilator Mechanical Ventilator 06/20/20 20:00 55 06/20/20 20:00 97.3 71 20 121/63 (82) 97 06/20/20 20:00 70 06/20/20 19:06 71 19 55 06/20/20 16:45 70 17 55 06/20/20 16:00 Mechanical Ventilator Mechanical Ventilator 06/20/20 16:00 55 06/20/20 16:00 95.4 72 20 116/70 (85) 99 06/20/20 16:00 70 06/20/20 15:05 71 22 55 06/20/20 13:05 68 22 55 Intake and Output 06/20/20 06/21/20 19:00 07:00 Intake Total 70 ml 575 ml Output Total 150 ml Balance 70 ml 425 ml Free Water 30 ml 160 ml IV Total 55 ml Tube Feeding 40 ml 360 ml Output Urine Total 150 ml Laboratory Tests 06/20/20 18:26: POC Whole Blood Glucose 150H 06/21/20 00:19: POC Whole Blood Glucose 115H 06/21/20 03:45: Sodium Level 139, Potassium Level 3.8, Chloride Level 103, Carbon Dioxide Level 33H, Anion Gap 3L, Blood Urea Nitrogen 90H, Creatinine 4.3H, Estimat Glomerular Filtration Rate 17.6, Glucose Level 135H, Uric Acid 7.7H, Calcium Level 8.0L, Phosphorus Level 4.4, Magnesium Level 2.8H, Total Bilirubin 0.3, Gamma Glutamyl Transpeptidase 162H, Aspartate Amino Transf (AST/SGOT) 661H, Alanine Aminotransferase (ALT/SGPT) 553H, Alkaline Phosphatase 918H, C-Reactive Protein, Quantitative 10.1H, Total Protein 7.4, Albumin 1.5L, Globulin 5.9, Albumin/Globulin Ratio 0.3L, Thyroid Stimulating Hormone (TSH) 7.385H, Cortisol AM Sample [Pending], Random Vancomycin Level 25.6 06/21/20 04:00: White Blood Count 11.9H, Red Blood Count 2.71L, Hemoglobin 7.7L, Hematocrit 26.2L, Mean Corpuscular Volume 97, Mean Corpuscular Hemoglobin 28.2, Mean Corpuscular Hemoglobin Concent 29.2L, Red Cell Distribution Width 16.2H, Platelet Count 244, Mean Platelet Volume 8.4, Neutrophils (%) (Auto) , Lymphocytes (%) (Auto) , Monocytes (%) (Auto) , Eosinophils (%) (Auto) , Basophils (%) (Auto) , Differential Total Cells Counted 100, Neutrophils % (Manual) 78H, Lymphocytes % (Manual) 10L, Monocytes % (Manual) 5, Eosinophils % (Manual) 6H, Basophils % (Manual) 0, Band Neutrophils 1, Nucleated Red Blood Ce lls 3, Platelet Estimate Adequate, Platelet Morphology Normal, Hypochromasia 2+, Anisocytosis 1+ 06/21/20 05:31: POC Whole Blood Glucose 143H Height (Feet): 5 Height (Inches): 8.00 Weight (Pounds): 143 General Appearance: lethargic EENT: other - Trach collar Cardiovascular: normal rate Respiratory/Chest: decreased breath sounds Abdomen: soft Leonidas Honeycutt MD Jun 21, 2020 12:28
--- NOTE | 2020-06-21 13:55 | Cardiac Electrophysiology PN ---
Assessment/Plan Assessment/Plan 1. Vent-dependent respirator failure. S/P tracheostomy. Chest x-ray is suspicious for extensive bilateral pneumonia or ARDS. His creatinine is 3.2. Off isolation EF 50%. Ruled out for [place]. BNP 47010. On iv Abx 2. Tachycardia, likely due to respiratory failure. 3. Right femoral vein DVT. S/P IVC filter 06/18 4. Dysphagia, status post PEG placement. 5. Renal failure. S/P Right IJ Iron and his first HD by Dr. Honeycutt. 6. Severe anemia, S/P PRBC DW RN Subjective Subjective On the Vent off isolation. On 55% Fio2 and PEEP. S/P IVC filter . S/P 1 unit PRBC. S/P Right IJ Iron and first HD today Objective Last 24 Hour Vital Signs Date Time Temp Pulse Resp B/P (MAP) Pulse Ox O2 Delivery O2 Flow Rate FiO2 06/21/20 13:12 67 22 55 06/21/20 12:00 96.4 80 18 128/95 (106) 97 06/21/20 12:00 55 06/21/20 12:00 Mechanical Ventilator Mechanical Ventilator 06/21/20 12:00 73 06/21/20 11:00 69 19 55 06/21/20 10:18 Trach Collar 55.0 06/21/20 09:00 64 22 55 06/21/20 08:00 55 06/21/20 08:00 96.8 63 20 123/73 (90) 96 06/21/20 08:00 55 06/21/20 08:00 Mechanical Ventilator Mechanical Ventilator 06/21/20 07:52 63 06/21/20 07:52 63 06/21/20 07:10 63 23 55 06/21/20 04:57 65 22 55 06/21/20 04:00 97.0 68 22 117/68 (84) 97 06/21/20 04:00 55 06/21/20 04:00 71 06/21/20 04:00 Mechanical Ventilator Mechanical Ventilator 06/21/20 02:57 68 22 55 06/21/20 01:38 65 22 55 06/21/20 00:00 Mechanical Ventilator Mechanical Ventilator 06/21/20 00:00 96.9 65 20 112/67 (82) 98 06/20/20 23:51 75 24 55 06/20/20 21:43 68 19 55 06/20/20 20:00 Mechanical Ventilator Mechanical Ventilator 06/20/20 20:00 55 06/20/20 20:00 97.3 71 20 121/63 (82) 97 06/20/20 20:00 70 06/20/20 19:06 71 19 55 06/20/20 16:45 70 17 55 06/20/20 16:00 Mechanical Ventilator Mechanical Ventilator 06/20/20 16:00 55 06/20/20 16:00 95.4 72 20 116/70 (85) 99 06/20/20 16:00 70 06/20/20 15:05 71 22 55 Intake and Output 06/20/20 06/21/20 19:00 07:00 Intake Total 70 ml 575 ml Output Total 150 ml Balance 70 ml 425 ml Free Water 30 ml 160 ml IV Total 55 ml Tube Feeding 40 ml 360 ml Output Urine Total 150 ml Laboratory Tests Test 06/20/20 18:26 06/21/20 00:19 06/21/20 03:45 06/21/20 04:00 POC Whole Blood Glucose 150 MG/DL (74-106) H 115 MG/DL (74-106) H Sodium Level 139 MMOL/L (136-145) Potassium Level 3.8 MMOL/L (3.5-5.1) Chloride Level 103 MMOL/L (98-107) Carbon Dioxide Level 33 MMOL/L (21-32) H Anion Gap 3 mmol/L (5-15) L Blood Urea Nitrogen 90 mg/dL (7-18) H Creatinine 4.3 MG/DL (0.55-1.30) H Estimat Glomerular Filtration Rate 17.6 mL/min (>60) Glucose Level 135 MG/DL (74-106) H Uric Acid 7.7 MG/DL (2.6-7.2) H Calcium Level 8.0 MG/DL (8.5-10.1) L Phosphorus Level 4.4 MG/DL (2.5-4.9) Magnesium Level 2.8 MG/DL (1.8-2.4) H Total Bilirubin 0.3 MG/DL (0.2-1.0) Gamma Glutamyl Transpeptidase 162 U/L (5-85) H Aspartate Amino Transf (AST/SGOT) 661 U/L (15-37) H Alanine Aminotransferase (ALT/SGPT) 553 U/L (12-78) H Alkaline Phosphatase 918 U/L (46-116) H C-Reactive Protein, Quantitative 10.1 mg/dL (0.00-0.90) H Total Protein 7.4 G/DL (6.4-8.2) Albumin 1.5 G/DL (3.4-5.0) L Globulin 5.9 g/dL Albumin/Globulin Ratio 0.3 (1.0-2.7) L Thyroid Stimulating Hormone (TSH) 7.385 uiU/mL (0.358-3.740) Cortisol AM Sample Pending Random Vancomycin Level 25.6 ug/mL White Blood Count 11.9 K/UL (4.8-10.8) H Red Blood Count 2.71 M/UL (4.70-6.10) L Hemoglobin 7.7 G/DL (14.2-18.0) L Hematocrit 26.2 % (42.0-52.0) L Mean Corpuscular Volume 97 FL (80-99) Mean Corpuscular Hemoglobin 28.2 PG (27.0-31.0) Mean Corpuscular Hemoglobin Concent 29.2 G/DL (32.0-36.0) L Red Cell Distribution Width 16.2 % (11.6-14.8) H Platelet Count 244 K/UL (150-450) Mean Platelet Volume 8.4 FL (6.5-10.1) Neutrophils (%) (Auto) % (45.0-75.0) Lymphocytes (%) (Auto) % (20.0-45.0) Monocytes (%) (Auto) % (1.0-10.0) Eosinophils (%) (Auto) % (0.0-3.0) Basophils (%) (Auto) % (0.0-2.0) Differential Total Cells Counted 100 Neutrophils % (Manual) 78 % (45-75) H Lymphocytes % (Manual) 10 % (20-45) L Monocytes % (Manual) 5 % (1-10) Eosinophils % (Manual) 6 % (0-3) H Basophils % (Manual) 0 % (0-2) Band Neutrophils 1 % (0-8) Nucleated Red Blood Cells 3 /100 WBC Platelet Estimate Adequate Platelet Morphology Normal Hypochromasia 2+ Anisocytosis 1+ Test 06/21/20 05:31 06/21/20 12:57 POC Whole Blood Glucose 143 MG/DL (74-106) H Pending Objective HEAD AND NECK: Status post tracheostomy.Right IJ Iron in place LUNGS: Coarse rhonchi and basilar rales. CARDIOVASCULAR: Shows irregular S1 and S2 with no gallop. ABDOMEN: Soft. Status post G-tube. EXTREMITIES: No pitting edema. Lance Mcguire MD Jun 21, 2020 13:54
--- NOTE | 2020-06-21 14:46 | Surgery Progress Note ---
Surgery Progress Note Subjective Symptoms: improved, tolerating diet, passing flatus, BM Objective Last 24 Hour Vital Signs Date Time Temp Pulse Resp B/P (MAP) Pulse Ox O2 Delivery O2 Flow Rate FiO2 06/21/20 13:12 67 22 55 06/21/20 12:00 96.4 80 18 128/95 (106) 97 06/21/20 12:00 55 06/21/20 12:00 Mechanical Ventilator Mechanical Ventilator 06/21/20 12:00 73 06/21/20 11:00 69 19 55 06/21/20 10:18 Trach Collar 55.0 06/21/20 09:00 64 22 55 06/21/20 08:00 55 06/21/20 08:00 96.8 63 20 123/73 (90) 96 06/21/20 08:00 55 06/21/20 08:00 Mechanical Ventilator Mechanical Ventilator 06/21/20 07:52 63 06/21/20 07:52 63 06/21/20 07:10 63 23 55 06/21/20 04:57 65 22 55 06/21/20 04:00 97.0 68 22 117/68 (84) 97 06/21/20 04:00 55 06/21/20 04:00 71 06/21/20 04:00 Mechanical Ventilator Mechanical Ventilator 06/21/20 02:57 68 22 55 06/21/20 01:38 65 22 55 06/21/20 00:00 Mechanical Ventilator Mechanical Ventilator 06/21/20 00:00 96.9 65 20 112/67 (82) 98 06/20/20 23:51 75 24 55 06/20/20 21:43 68 19 55 06/20/20 20:00 Mechanical Ventilator Mechanical Ventilator 06/20/20 20:00 55 06/20/20 20:00 97.3 71 20 121/63 (82) 97 06/20/20 20:00 70 06/20/20 19:06 71 19 55 06/20/20 16:45 70 17 55 06/20/20 16:00 Mechanical Ventilator Mechanical Ventilator 06/20/20 16:00 55 06/20/20 16:00 95.4 72 20 116/70 (85) 99 06/20/20 16:00 70 06/20/20 15:05 71 22 55 I&O Intake and Output 06/20/20 06/21/20 19:00 07:00 Intake Total 70 ml 575 ml Output Total 150 ml Balance 70 ml 425 ml Free Water 30 ml 160 ml IV Total 55 ml Tube Feeding 40 ml 360 ml Output Urine Total 150 ml Dressing: saturated Cardiovascular: RSR Respiratory: decreased breath sounds Abdomen: non-tender, present bowel sounds Extremities: no edema, no tenderness, no cyanosis Laboratory Tests Test 06/20/20 18:26 06/21/20 00:19 06/21/20 03:45 06/21/20 04:00 POC Whole Blood Glucose 150 MG/DL (74-106) H 115 MG/DL (74-106) H Sodium Level 139 MMOL/L (136-145) Potassium Level 3.8 MMOL/L (3.5-5.1) Chloride Level 103 MMOL/L (98-107) Carbon Dioxide Level 33 MMOL/L (21-32) H Anion Gap 3 mmol/L (5-15) L Blood Urea Nitrogen 90 mg/dL (7-18) H Creatinine 4.3 MG/DL (0.55-1.30) H Estimat Glomerular Filtration Rate 17.6 mL/min (>60) Glucose Level 135 MG/DL (74-106) H Uric Acid 7.7 MG/DL (2.6-7.2) H Calcium Level 8.0 MG/DL (8.5-10.1) L Phosphorus Level 4.4 MG/DL (2.5-4.9) Magnesium Level 2.8 MG/DL (1.8-2.4) H Total Bilirubin 0.3 MG/DL (0.2-1.0) Gamma Glutamyl Transpeptidase 162 U/L (5-85) H Aspartate Amino Transf (AST/SGOT) 661 U/L (15-37) H Alanine Aminotransferase (ALT/SGPT) 553 U/L (12-78) H Alkaline Phosphatase 918 U/L (46-116) H C-Reactive Protein, Quantitative 10.1 mg/dL (0.00-0.90) H Total Protein 7.4 G/DL (6.4-8.2) Albumin 1.5 G/DL (3.4-5.0) L Globulin 5.9 g/dL Albumin/Globulin Ratio 0.3 (1.0-2.7) L Thyroid Stimulating Hormone (TSH) 7.385 uiU/mL (0.358-3.740) Cortisol AM Sample 17.5 UG/DL Random Vancomycin Level 25.6 ug/mL White Blood Count 11.9 K/UL (4.8-10.8) H Red Blood Count 2.71 M/UL (4.70-6.10) L Hemoglobin 7.7 G/DL (14.2-18.0) L Hematocrit 26.2 % (42.0-52.0) L Mean Corpuscular Volume 97 FL (80-99) Mean Corpuscular Hemoglobin 28.2 PG (27.0-31.0) Mean Corpuscular Hemoglobin Concent 29.2 G/DL (32.0-36.0) L Red Cell Distribution Width 16.2 % (11.6-14.8) H Platelet Count 244 K/UL (150-450) Mean Platelet Volume 8.4 FL (6.5-10.1) Neutrophils (%) (Auto) % (45.0-75.0) Lymphocytes (%) (Auto) % (20.0-45.0) Monocytes (%) (Auto) % (1.0-10.0) Eosinophils (%) (Auto) % (0.0-3.0) Basophils (%) (Auto) % (0.0-2.0) Differential Total Cells Counted 100 Neutrophils % (Manual) 78 % (45-75) H Lymphocytes % (Manual) 10 % (20-45) L Monocytes % (Manual) 5 % (1-10) Eosinophils % (Manual) 6 % (0-3) H Basophils % (Manual) 0 % (0-2) Band Neutrophils 1 % (0-8) Nucleated Red Blood Cells 3 /100 WBC Platelet Estimate Adequate Platelet Morphology Normal Hypochromasia 2+ Anisocytosis 1+ Test 06/21/20 05:31 06/21/20 12:57 POC Whole Blood Glucose 143 MG/DL (74-106) H Pending Plan Problems: (1) Leukocytosis Assessment & Plan: 54-year-old male multiple comorbidities admitted for abnormal chest x-ray potentially pneumonia leukocytosis abnormal labs. Patient identified to have a prior left BKA surgical sutures still in place as well as a surgical sacral wound with sutures in place. Considerations of dehiscence being identified and potential etiology of infection. After evaluation unlikely source of infection though the sacral wound was looked to be dehiscing at the inferior aspect. No acute surgical mention at this time We will discussed care plan with PCP Recommend follow-up with initial surgeon considerations of removal of surgical sutures Care plan initiated worsening lft's US ordered ? shayla (2) Surgical wound dehiscence Assessment & Plan: Patient identified to have a left BKA surgical sutures in place flap looks like it is taken well no signs of infection at this time no signs of seroma hematoma or drainage. Unknown exact length or duration of potential prior left BKA and until then recommend leaving sutures in place as it may be too early though it does look well-healed. If able to obtain prior records we will be happy to remove sutures otherwise will need follow-up with primary surgeon furthermore patient identified to have a surgical wound in the sacral area seems he probably potentially had a stage IV sacral decubitus ulcer that had debridement and primary closure. Fortunately. Sutures are still in place and it looks like the inferior aspect may be slowly dehiscing. There is no significant drainage no foul odor no signs of active infection unknown if bone was palpable prior. Can consider removing surgical sutures but again would recommend obtaining prior records of possible prior to doing so. Also recommend following up with primary surgeon as this may need ongoing continued care. Will follow with recommendations and as information is available. Continue current care plan. Wash wounds daily with normal saline. Apply skin protectant Optifoam dressing. Turn every 2 hours. Offload pressure with pillows and air mattress. Nutritional optimization. (3) History of left below knee amputation (4) Malnutrition Assessment & Plan: DAILY ESTIMATED NEEDS: Needs based on Wound, critical care, underweight/ 55.5kg 25-33 kcals/kg 3397-3459 total kcals 1.25-2 g protein/kg 69-111 g total protein 25-30 mL/kg 0457-3776 total fluid mLs NUTRITION DIAGNOSIS: * Swallowing difficulty R/T respiratory status as evidenced by pt is trach/vent dep, PEG dep, NPO at this time. CURRENT TF:NPO ENTERAL NUTRITION RECOMMENDATIONS: Nepro @ 40ml/hr x 24 hrs to provide 960ml, 1728kcal, 78g prot, 698ml free water * Rec to continue FORGING DIE FINISHER TF of Nepro (K 5.8, 5.0) * Rec goal rate of 40ml/hr x 24 hrs * HOB over 30 degrees/ water flush per ADDITIONAL RECOMMENDATIONS: * Per SNF: HT=69" RF=143dlf -> rec daily calibrated bedscale wt * Monitor lytes: elev K * Wound healing: f/up w/ WC eval add Vit C 500mg QD, Av BID via PEG (5) Anemia (6) KERRI (acute kidney injury) (7) Acute respiratory failure (8) Hyperkalemia (9) Anemia (10) Abnormal laboratory test result (11) Chronic respiratory failure Azar Mares Jun 21, 2020 14:46
[2020-06-21 16:00] VITALS: BP 114/72
--- NOTE | 2020-06-21 16:03 | Infectious Diseases Prog Note ---
Assessment/Plan Assessment/Plan IMPRESSION: Pneumonia with Pseudomonas & Stenotrophomonas Hypothermia COVID19 X 2: negative Ventilator-dependent respiratory failure, Diabetes mellitus type 2, Hypertension, History of left BKA, Hypertension, anemia, Major depression, Pressure ulcer, Elevated transaminase, Hyperkalemia. Anemia R leg DVT s/p IVC filter Sacral osteomyelitis Severe anemia Acute renal failure ESRD Hypercapnic respiratory failure RECOMMENDATION: Continue meropenem & Levaquin Continue Linezolid until 07/18 Will f/u TSH & Cortisol level Case was D/W RN Subjective ROS Limited/Unobtainable: Yes Constitutional: Denies: fever Neurologic: Reports: confusion, other - on restraint Allergies: Coded Allergies: No Known Allergies (Unverified , 06/13/20) Objective Last 24 Hour Vital Signs Date Time Temp Pulse Resp B/P (MAP) Pulse Ox O2 Delivery O2 Flow Rate FiO2 06/21/20 13:12 67 22 55 06/21/20 12:00 96.4 80 18 128/95 (106) 97 06/21/20 12:00 55 06/21/20 12:00 Mechanical Ventilator Mechanical Ventilator 06/21/20 12:00 73 06/21/20 11:00 69 19 55 06/21/20 10:18 Trach Collar 55.0 06/21/20 09:00 64 22 55 06/21/20 08:00 55 06/21/20 08:00 96.8 63 20 123/73 (90) 96 06/21/20 08:00 55 06/21/20 08:00 Mechanical Ventilator Mechanical Ventilator 06/21/20 07:52 63 06/21/20 07:52 63 06/21/20 07:10 63 23 55 06/21/20 04:57 65 22 55 06/21/20 04:00 97.0 68 22 117/68 (84) 97 06/21/20 04:00 55 06/21/20 04:00 71 06/21/20 04:00 Mechanical Ventilator Mechanical Ventilator 06/21/20 02:57 68 22 55 06/21/20 01:38 65 22 55 06/21/20 00:00 Mechanical Ventilator Mechanical Ventilator 06/21/20 00:00 96.9 65 20 112/67 (82) 98 06/20/20 23:51 75 24 55 06/20/20 21:43 68 19 55 06/20/20 20:00 Mechanical Ventilator Mechanical Ventilator 06/20/20 20:00 55 06/20/20 20:00 97.3 71 20 121/63 (82) 97 06/20/20 20:00 70 06/20/20 19:06 71 19 55 06/20/20 16:45 70 17 55 Height (Feet): 5 Height (Inches): 8.00 Weight (Pounds): 143 General Appearance: no acute distress HEENT: status post trach Respiratory/Chest: lungs clear, other - on vetilator Cardiovascular: normal rate Abdomen: soft, non tender, other - GT feeding Extremities: no edema, other - Left BKA Skin: ulcers Neurologic/Psychiatric: alert, responsive Laboratory Tests Test 06/20/20 18:26 06/21/20 00:19 06/21/20 03:45 06/21/20 04:00 POC Whole Blood Glucose 150 MG/DL (74-106) H 115 MG/DL (74-106) H Sodium Level 139 MMOL/L (136-145) Potassium Level 3.8 MMOL/L (3.5-5.1) Chloride Level 103 MMOL/L (98-107) Carbon Dioxide Level 33 MMOL/L (21-32) H Anion Gap 3 mmol/L (5-15) L Blood Urea Nitrogen 90 mg/dL (7-18) H Creatinine 4.3 MG/DL (0.55-1.30) H Estimat Glomerular Filtration Rate 17.6 mL/min (>60) Glucose Level 135 MG/DL (74-106) H Uric Acid 7.7 MG/DL (2.6-7.2) H Calcium Level 8.0 MG/DL (8.5-10.1) L Phosphorus Level 4.4 MG/DL (2.5-4.9) Magnesium Level 2.8 MG/DL (1.8-2.4) H Total Bilirubin 0.3 MG/DL (0.2-1.0) Gamma Glutamyl Transpeptidase 162 U/L (5-85) H Aspartate Amino Transf (AST/SGOT) 661 U/L (15-37) H Alanine Aminotransferase (ALT/SGPT) 553 U/L (12-78) H Alkaline Phosphatase 918 U/L (46-116) H C-Reactive Protein, Quantitative 10.1 mg/dL (0.00-0.90) H Total Protein 7.4 G/DL (6.4-8.2) Albumin 1.5 G/DL (3.4-5.0) L Globulin 5.9 g/dL Albumin/Globulin Ratio 0.3 (1.0-2.7) L Thyroid Stimulating Hormone (TSH) 7.385 uiU/mL (0.358-3.740) Cortisol AM Sample 17.5 UG/DL Random Vancomycin Level 25.6 ug/mL White Blood Count 11.9 K/UL (4.8-10.8) H Red Blood Count 2.71 M/UL (4.70-6.10) L Hemoglobin 7.7 G/DL (14.2-18.0) L Hematocrit 26.2 % (42.0-52.0) L Mean Corpuscular Volume 97 FL (80-99) Mean Corpuscular Hemoglobin 28.2 PG (27.0-31.0) Mean Corpuscular Hemoglobin Concent 29.2 G/DL (32.0-36.0) L Red Cell Distribution Width 16.2 % (11.6-14.8) H Platelet Count 244 K/UL (150-450) Mean Platelet Volume 8.4 FL (6.5-10.1) Neutrophils (%) (Auto) % (45.0-75.0) Lymphocytes (%) (Auto) % (20.0-45.0) Monocytes (%) (Auto) % (1.0-10.0) Eosinophils (%) (Auto) % (0.0-3.0) Basophils (%) (Auto) % (0.0-2.0) Differential Total Cells Counted 100 Neutrophils % (Manual) 78 % (45-75) H Lymphocytes % (Manual) 10 % (20-45) L Monocytes % (Manual) 5 % (1-10) Eosinophils % (Manual) 6 % (0-3) H Basophils % (Manual) 0 % (0-2) Band Neutrophils 1 % (0-8) Nucleated Red Blood Cells 3 /100 WBC Platelet Estimate Adequate Platelet Morphology Normal Hypochromasia 2+ Anisocytosis 1+ Test 06/21/20 05:31 06/21/20 12:57 POC Whole Blood Glucose 143 MG/DL (74-106) H Pending Current Medications Medications (Trade) Dose Ordered Sig/Maryjane Route PRN Reason Start Time Stop Time Status Last Admin Dose Admin Acetaminophen (Tylenol) 650 mg Q4H PRN GT Mild Pain (Pain Scale 1-3) 06/18/20 23:00 07/18/20 22:59 Acetaminophen (Tylenol) 650 mg Q4HR PRN GT FEVER 06/14/20 09:45 07/14/20 09:44 06/19/20 20:45 Aluminum Hydroxide (Amphojel) 1,920 mg Q6H GT 06/17/20 10:00 07/17/20 09:59 06/21/20 09:01 Ascorbic Acid (Vitamin C) 500 mg DAILY ORAL 06/16/20 09:00 07/16/20 08:59 06/21/20 08:59 Chlorhexidine Gluconate (Inés-Hex 2%) 1 applic DAILY@2000 TOPIC 06/21/20 20:00 09/19/20 19:59 Dextrose (Dextrose 50%) 25 ml Q30M PRN IV Hypoglycemia 06/14/20 03:45 09/12/20 03:44 Dextrose (Dextrose 50%) 50 ml Q30M PRN IV Hypoglycemia 06/14/20 03:45 09/12/20 03:44 Epoetin Bonilla (Epoetin Bonilla-EPBX(NON ESRD)) 10,000 unit TUE-TUE-TUE SUBQ 06/18/20 21:00 09/16/20 20:59 06/20/20 21:35 Heparin Sodium/ Sodium Chloride (Heparin 1000 units/500ml Premix) 1,000 unit ONCE PRN INJ radiology procedure 06/20/20 08:30 06/22/20 08:29 Levofloxacin (Levaquin) 500 mg Q48H GT 06/21/20 09:00 06/28/20 08:59 06/21/20 08:59 Lidocaine HCl (Xylocaine 1% 30ml) 30 ml ONCE PRN INJ radiology procdure 06/20/20 08:30 06/22/20 08:29 Linezolid (Zyvox) 600 mg EVERY 12 HOURS GT 06/19/20 21:00 06/24/20 20:59 06/21/20 08:59 Meropenem 500 mg/ Sodium Chloride 55 ml @ 110 mls/hr Q24H IVPB 06/21/20 18:00 06/26/20 17:59 Pantoprazole (Protonix) 40 mg EVERY 12 HOURS IVP 06/14/20 11:45 07/14/20 11:44 06/21/20 08:59 Paul Amador MD Jun 21, 2020 16:03
--- NOTE | 2020-06-21 19:22 | NUR ---
NURSE HAND-OFF REPORT: Important Events on Shift:stable Patient Status: full code Diet: nepro @40 Pending Orders: [] Pending Results/Labs:[] Pending MD notification:[] Latest Vital Signs: Temperature 96.0 , Pulse 66 , B/P 114 /72 , Respiratory Rate 22 , O2 SAT 99 , Mechanical Ventilator, O2 Flow Rate 55.0 . Vital Sign Comment: stable EKG Rhythm: Sinus Rhythm Rhythm change?: N MD Notified?: Jennifer Lipscomb MD Response: No New Orders Received Latest Santiago Fall Score: 60 Fall Risk: High Risk Safety Measures: Call light Within Reach, Bed Alarm Zone 2, Side Rails Side Rails x3, Bed position Low and Locked. Fall Precautions: Yellow Socks Yellow Gown Door Sign Patient Fall Education Report given to esmer joy.
--- NOTE | 2020-06-21 19:32 | NUR ---
NURSE NOTES: Report received from MAX Arias. Observed pt lying in the bed, A/O x2, confused, keeps trying to get out of bed, room close to station. SR on traffic monitor specialist noted. Trach to vent, Shiley 8, AC 16, TV 500, FIO2 55%, PEEP 5, tolerating, saturating at 99%. GT intact, running Nepro at 40cc/hr, no residual noted. IV on L W 22G, intact, asymptomatic. L IJ Iron noted, intact. Bed in the lowest position. Side rails up x3. Will continue to monitor.
[2020-06-21 20:00] VITALS: BP 121/76
[2020-06-21] MEDS: Dyna-Hex 2% Top Sol 2oz TOPIC SCH (20:06)
--- NOTE | 2020-06-21 21:00 | NUR ---
NURSE NOTES: Noted pt have low temperature and hard to measure. Blankets and florina hugger offered but refused, pt kicked them right away when applied. Will continue to monitor.
--- NOTE | 2020-06-21 21:25 | General Progress Note ---
Subjective ROS Limited/Unobtainable: Yes Allergies: Coded Allergies: No Known Allergies (Unverified , 06/13/20) Objective Last 24 Hour Vital Signs Date Time Temp Pulse Resp B/P (MAP) Pulse Ox O2 Delivery O2 Flow Rate FiO2 06/21/20 20:00 62 06/21/20 20:00 Mechanical Ventilator Mechanical Ventilator 06/21/20 20:00 95.0 63 23 121/76 (91) 99 06/21/20 20:00 55 06/21/20 19:36 65 25 55 06/21/20 17:00 66 22 55 06/21/20 16:00 65 06/21/20 16:00 55 06/21/20 16:00 96.0 65 23 114/72 (86) 99 06/21/20 16:00 Mechanical Ventilator Mechanical Ventilator 06/21/20 15:00 63 22 55 06/21/20 13:12 67 22 55 06/21/20 12:00 96.4 80 18 128/95 (106) 97 06/21/20 12:00 55 06/21/20 12:00 Mechanical Ventilator Mechanical Ventilator 06/21/20 12:00 73 06/21/20 11:00 69 19 55 06/21/20 10:18 Trach Collar 55.0 06/21/20 09:00 64 22 55 06/21/20 08:00 55 06/21/20 08:00 96.8 63 20 123/73 (90) 96 06/21/20 08:00 55 06/21/20 08:00 Mechanical Ventilator Mechanical Ventilator 06/21/20 07:52 63 06/21/20 07:52 63 06/21/20 07:10 63 23 55 06/21/20 04:57 65 22 55 06/21/20 04:00 97.0 68 22 117/68 (84) 97 06/21/20 04:00 55 06/21/20 04:00 71 06/21/20 04:00 Mechanical Ventilator Mechanical Ventilator 06/21/20 02:57 68 22 55 06/21/20 01:38 65 22 55 06/21/20 00:00 Mechanical Ventilator Mechanical Ventilator 06/21/20 00:00 96.9 65 20 112/67 (82) 98 06/20/20 23:51 75 24 55 06/20/20 21:43 68 19 55 Intake and Output 06/20/20 06/21/20 19:00 07:00 Intake Total 70 ml 575 ml Output Total 150 ml Balance 70 ml 425 ml Free Water 30 ml 160 ml IV Total 55 ml Tube Feeding 40 ml 360 ml Output Urine Total 150 ml Laboratory Tests 06/21/20 00:19: POC Whole Blood Glucose 115H 06/21/20 03:45: Sodium Level 139, Potassium Level 3.8, Chloride Level 103, Carbon Dioxide Level 33H, Anion Gap 3L, Blood Urea Nitrogen 90H, Creatinine 4.3H, Estimat Glomerular Filtration Rate 17.6, Glucose Level 135H, Uric Acid 7.7H, Calcium Level 8.0L, Phosphorus Level 4.4, Magnesium Level 2.8H, Total Bilirubin 0.3, Gamma Glutamyl Transpeptidase 162H, Aspartate Amino Transf (AST/SGOT) 661H, Alanine Aminotransferase (ALT/SGPT) 553H, Alkaline Phosphatase 918H, C-Reactive Protein, Quantitative 10.1H, Total Protein 7.4, Albumin 1.5L, Globulin 5.9, Albumin/Globulin Ratio 0.3L, Thyroid Stimulating Hormone (TSH) 7.385H, Cortisol AM Sample 17.5, Random Vancomycin Level 25.6 06/21/20 04:00: White Blood Count 11.9H, Red Blood Count 2.71L, Hemoglobin 7.7L, Hematocrit 26.2L, Mean Corpuscular Volume 97, Mean Corpuscular Hemoglobin 28.2, Mean Corpuscular Hemoglobin Concent 29.2L, Red Cell Distribution Width 16.2H, Platelet Count 244, Mean Platelet Volume 8.4, Neutrophils (%) (Auto) , Lymphocytes (%) (Auto) , Monocytes (%) (Auto) , Eosinophils (%) (Auto) , Basophils (%) (Auto) , Differential Total Cells Counted 100, Neutrophils % (Manual) 78H, Lymphocytes % (Manual) 10L, Monocytes % (Manual) 5, Eosinophils % (Manual) 6H, Basophils % (Manual) 0, Band Neutrophils 1, Nucleated Red Blood Cells 3, Platelet Estimate Adequate, Platelet Morphology Normal, Hypochromasia 2+, Anisocytosis 1+ 06/21/20 05:31: POC Whole Blood Glucose 143H 06/21/20 12:57: POC Whole Blood Glucose [Pending] 06/21/20 17:08: POC Whole Blood Glucose 153H Height (Feet): 5 Height (Inches): 8.00 Weight (Pounds): 143 Assessment/Plan Problem List: (1) Anemia ICD Codes: D64.9 - Anemia, unspecified SNOMED: 239641410 (2) KERRI (acute kidney injury) ICD Codes: N17.9 - Acute kidney failure, unspecified SNOMED: 9327949, 31643858 (3) Acute respiratory failure ICD Codes: J96.00 - Acute respiratory failure, unspecified whether with hypoxia or hypercapnia SNOMED: 69752655 Qualifiers: Qualified Codes: J96.02 - Acute respiratory failure with hypercapnia (4) Hyperkalemia ICD Codes: E87.5 - Hyperkalemia SNOMED: 34794046 (5) Abnormal laboratory test result ICD Codes: R89.9 - Unspecified abnormal finding in specimens from other organs, systems and tissues SNOMED: 462260584 (6) Anemia ICD Codes: D64.9 - Anemia, unspecified SNOMED: 704968545 Status: progressing Assessment/Plan: reviewed chart and labs and meds fluid overload afebrile sepsis pulm edema arf trach and peg poor prognosis Neida Apple MD Jun 21, 2020 21:25
--- NOTE | 2020-06-21 22:36 | NUR ---
NURSE NOTES: Pt agitated, trying to get out of bed. SR noted. Tolerating current vent setting. No distress on geovani wrists. Bed bath given. Will continue to monitor.
--- NOTE | 2020-06-21 23:11 | Psychiatry Consultation ---
Psychiatry Consultation Psychiatry Consultation Chief Complaint: Abnormal Labs History of Present Illness: 54-year-old male with a history of multiple medical issues, status post tracheostomy, PEG placement, CVA, history of anxiety, agitation, pulling out lines. Patient is confused, not able to be engaged, unable to follow commands. Has episodes of agitation. PAST PSYCHIATRIC HISTORY: Unknown. Patient does not have a POA and is capacitated to make any decisions. PAST MEDICAL HISTORY: Renal failure, hypertension, anemia, congestive heart failure, diabetes mellitus. ALLERGIES: No known drug allergies. SUBSTANCE USE HISTORY: No known history of illicit drug use or alcohol. MENTAL STATUS EXAMINATION: Patient is awake, eyes open. Unable to communicate. Mood is anxious and depressed. Affect is blunted, congruent with mood. Thought process concrete. Thought content, no suicidal or homicidal ideation. Thought content is impaired. Insight and judgment is impaired. Allergies: Coded Allergies: No Known Allergies (Unverified , 06/13/20) Medication History Scheduled Amino Acids/Protein Hydrolys (Pro-Stat Liquid), 30 ML GT DAILY, (Reported) Amlodipine Besylate* (Amlodipine Besylate*), 10 MG GT DAILY, (Reported) Ascorbic Acid* (Vitamin C*), 500 MG GT DAILY, (Reported) Atorvastatin Calcium* (Atorvastatin Calcium*), 40 MG GT BEDTIME, (Reported) Clonidine Hcl* (Catapres*), 0.1 MG GT Q8HR, (Reported) Cran/Vitc/Mannose/Inulin/Brom (Uti-Stat Liquid), 3,875 MG GT BID, (Reported) Docusate Sodium* (Colace*), 100 MG GT DAILY, (Reported) Escitalopram Oxalate* (Lexapro*), 10 MG GT DAILY, (Reported) Famotidine* (Pepcid 20mg tablet*), 20 MG GT DAILY, (Reported) Ferrous Sulfate* (Ferrous Sulfate*), 325 MG GT DAILY, (Reported) Fludrocortisone Acetate (Fludrocortisone Acetate), 0.1 MG GT DAILY, (Reported) Fructooligosaccharides/Polydex (Fiber-Stat 15 gm/30 ml Liquid), 15 GM GT DAILY, (Reported) Gabapentin (Neurontin), 300 MG GT THREE TIMES A DAY, (Reported) Lorazepam* (Ativan*), 1 MG GT EVERY 6 HOURS, (Reported) Mirtazapine* (Mirtazapine*), 7.5 MG GT BEDTIME, (Reported) Multivitamin With Minerals (Multivitamins With Minerals*), 1 TAB GT DAILY, (Reported) Zinc Sulfate (Zinc Sulfate*), 220 MG GT DAILY, (Reported) Scheduled PRN Acetaminophen 160MG/5ML* (Acetaminophen*), 4 ML GT EVERY 6 HOURS PRN for Mild Pain (Pain Scale 1-3), (Reported) Acetaminophen 160MG/5ML* (Acetaminophen*), 4 ML GT EVERY 6 HOURS PRN for Temp >100.5, (Reported) Acetaminophen* (Acetaminophen Extra Strength*), 1,000 MG GT Q6H PRN for Pain Sca le (3-5), (Reported) Bisacodyl (Dulcolax), 10 MG RC for Constipation, (Reported) Hydrocodone/Acetaminophen (Hydrocodon-Acetaminophn 10-325), 1 TAB GT Q6HR PRN for For Pain, (Reported) Magnesium Hydroxide* (Milk Of Magnesia*), 30 ML GT DAILY PRN for Constipation, (Reported) Na Phos,M-B/Na Phos,Di-Ba* (Fleet Enema*), 133 ML RECTAL EVERY OTHER DAY PRN for Constipation, (Reported) Ondansetron Odt* (Zofran Odt*), 4 MG GT EVERY 8 HOURS PRN for Nausea & Vomiting, (Reported) Miscellaneous Medications Insulin Lispro (Humalog), 0 SUBQ, (Reported) Objective Data Height (Feet): 5 Height (Inches): 8.00 Weight (Pounds): 143 Additional Comments: Assessment/Plan Diagnosis [place] I: ASSESSMENT: [place] I Cognitive impairment. [place] II Deferred. [place] III As above. [place] IV Low. [place] V 20. PLAN: 1. Haldol IM p.r.n. 2. Patient is on bilateral restraints. 3. Continue to follow and readjust the medications. Neftaly Delacruz MD Jun 21, 2020 23:11
[2020-06-22] VITALS (18 sets, daily range): BP systolic 110–129; BP diastolic 61–77
--- NOTE | 2020-06-22 | NUR ---
NURSE NOTES: Pt continuously kicking the bed noted. No distress on bilateral wrists. Vitals stable. Will continue to monitor.
--- NOTE | 2020-06-22 02:10 | NUR ---
NURSE NOTES: pt sleeping in the bed. No acute distress noted at this time. will continue to monitor.
--- NOTE | 2020-06-22 03:15 | NUR ---
[employer]IT OFFICER Note: [employer]IT OFFICER was called at 03:00 by SDU and notified MD Apple. See [employer]IT OFFICER documentation form for full report. [employer]IT OFFICER called d/t fall
--- NOTE | 2020-06-22 03:20 | NUR ---
NURSE NOTES: Pt found on the floor. SALES DATA ANALYST called. Kenneth checked, no signs of AMS. Vital signs, BP 119/76, HR 57, O2 98%, T of 92, low temperature was noted prior to the incident. Left a message to . Head CT ordered per protocol. Will initiate post fall intervention. will continue to monitor.
[2020-06-22] MEDS: Aluminum Hydroxide Gel Susp 15ml GT SCH ×4 (04:00→22:16)
--- NOTE | 2020-06-22 05:17 | NUR ---
NURSE NOTES: Pt brought to CT scan, awaiting for result. No signs of AMS. Vitals stable. Will continue to monitor.
--- NOTE | 2020-06-22 05:28 | Diagnostic Imaging Report ---
EXAM: CT Head Without Intravenous Contrast CLINICAL HISTORY: AMS TECHNIQUE: Axial computed tomography images of the head/brain without intravenous contrast. CTDI is 53.40 mGy and DLP is 1179.10 mGy-cm. One or more of the following dose reduction techniques were used: automated exposure control, adjustment of the mA and/or kV according to patient size, use of iterative reconstruction technique. COMPARISON: No relevant imaging studies available. FINDINGS: Brain: No infarction, hemorrhage or abnormal extra-axial fluid collection. No mass, mass effect, or shift of midline structures. No significant white matter disease. Ventricles: Unremarkable. Bones/joints: No acute calvarial fracture. Soft tissues: Scalp soft tissues appear edematous. Sinuses: Unremarkable as visualized. No acute sinusitis. Mastoid air cells: Complete opacification of the left mastoid air cells. IMPRESSION: 1. No acute intracranial abnormality. 2. Left mastoid effusion. 3. Scalp soft tissues appear edematous.
[2020-06-22 05:34] LABS: HEMATOCRIT 25.2 % (42.0-52.0); HEMOGLOBIN 7.5 G/DL (14.2-18.0); MEAN CORPUSCULAR VOLUME 97 FL (80-99); PLATELET COUNT 207 K/UL (150-450); RED BLOOD COUNT 2.59 M/UL (4.70-6.10); RED CELL DISTRIBUTION WIDTH 16.4 % (11.6-14.8); WHITE BLOOD COUNT 9.4 K/UL (4.8-10.8)
[2020-06-22 06:27] LABS: ALANINE AMINOTRANSFERASE 833 U/L (12-78); ALBUMIN 1.6 G/DL (3.4-5.0); ALBUMIN/GLOBULIN RATIO 0.3 (1.0-2.7); ALKALINE PHOSPHATASE 1091 U/L (46-116); ANION GAP 5 mmol/L (5-15); ASPARTATE AMINO TRANSFERASE 1518 U/L (15-37); BILIRUBIN,TOTAL 0.4 MG/DL (0.2-1.0); BLOOD UREA NITROGEN 72 mg/dL (7-18); CALCIUM 8.5 MG/DL (8.5-10.1); CARBON DIOXIDE 30 MMOL/L (21-32); CHLORIDE 103 MMOL/L (98-107); CREATININE 3.6 MG/DL (0.55-1.30); PHOSPHORUS 3.8 MG/DL (2.5-4.9); POTASSIUM 4.4 MMOL/L (3.5-5.1); SODIUM 138 MMOL/L (136-145)
--- NOTE | 2020-06-22 06:58 | Hematology/Onc Progress Note ---
Assessment/Plan Assessment/Plan ASSESSMENT AND PLAN: #. Anemia that is likely due to chronic disease, r/o gi bleeding --> anemia panel has been reviewed, ferritin is >2000 --> no e/o hemolysis is noted --> transfuse on prn basis --> blood consent has been signed --> hgb 7.4-->7.4-->7-->6.7-->8-->7.5 --> folic acid is wnl --> 1 unit prbc 06/18 # Acute DVT in the distal right common femoral vein and profunda femoris vein. --> DUPLEX . Acute DVT in the distal right common femoral vein and profunda femoris vein. 2. No evidence of left lower extremity DVT. --> cannot anticoagulate at this time --> 06/17 s/p ivc filter placement --> hold off anticoag # Leukocytosis is likely due to b/l infiltrates --> on abx as per id -> ABX yolis/vanc-->yolis/linezolid --> continue trend --> wbc 15-->12 # Respiratory failure in this patient with vent-dependent respiratory failure. T --> cxr with pna/chf --> diuresis prn # Tachycardia, likely due to respiratory failure. # Left bka # Ventilator-dependent respiratory failure --> status post tracheostomy. # Dysphagia --> status post PEG placement. # Renal failure. -> per Dr. Honeycutt. # Hyperkalemia and kayxelate as needed. # Dvt ppx scds Appreciate consultation and angela RN Subjective HEENT: Denies: no symptoms, eye pain, blurred vision, tearing, double vision, ear pain, ear discharge, nose pain, nose congestion, throat pain, throat swelling, mouth pain, mouth swelling, other Cardiovascular: Denies: no symptoms, chest pain, edema, irregular heart rate, lightheadedness, palpitations, syncope, other Respiratory: Denies: no symptoms, cough, shortness of breath, SOB with excertion, SOB at rest, sputum, wheezing, other Gastrointestinal/Abdominal: Denies: no symptoms, abdomen distended, abdominal pain, black stools, tarry stools, blood in stool, constipated, diarrhea, difficulty swallowing, nausea, poor appetite, poor fluid intake, rectal bleed ing, vomiting, other Neurologic/Psychiatric: Denies: no symptoms, anxiety, depressed, emotional problems, headache, numbness, paresthesia, pre-existing deficit, seizure, tingling, tremors, weakness, other Endocrine: Denies: no symptoms, excessive sweating, flushing, intolerance to cold, intolerance to heat, increased hunger, increased thirst, increased urine, unexplained weight gain, unexplained weight loss, other Hematologic/Lymphatic: Denies: no symptoms, anemia, easy bleeding, easy bruising, adenopathy, other Allergies: Coded Allergies: No Known Allergies (Unverified , 06/13/20) Subjective 06/16 meds noted, labs reviewed, vent to trach, for ivc filter potentially 06/17 labs noted, meds reviewed, for ivc filter once covid neg 06/18 labs are noted, on vent and gt, 1 unit prbc ordered 06/19 labs pending, is s/p ivcf placement yesterday 06/20 for hd nontunneled cathter placement, no bleeding 06/22 labs noted, no bleeding, found down overnight, got ct brain, is neg Objective Objective Current Medications Medications (Trade) Dose Ordered Sig/Maryjane Route PRN Reason Start Time Stop Time Status Last Admin Dose Admin Acetaminophen (Tylenol) 650 mg Q4H PRN GT Mild Pain (Pain Scale 1-3) 06/18/20 23:00 07/18/20 22:59 Acetaminophen (Tylenol) 650 mg Q4HR PRN GT FEVER 06/14/20 09:45 07/14/20 09:44 06/19/20 20:45 Aluminum Hydroxide (Amphojel) 1,920 mg Q6H GT 06/17/20 10:00 07/17/20 09:59 06/21/20 22:13 Ascorbic Acid (Vitamin C) 500 mg DAILY ORAL 06/16/20 09:00 07/16/20 08:59 06/21/20 08:59 Chlorhexidine Gluconate (Inés-Hex 2%) 1 applic DAILY@1999 TOPIC 06/21/20 20:00 09/19/20 19:59 06/21/20 20:06 Dextrose (Dextrose 50%) 25 ml Q30M PRN IV Hypoglycemia 06/14/20 03:45 09/12/20 03:44 Dextrose (Dextrose 50%) 50 ml Q30M PRN IV Hypoglycemia 06/14/20 03:45 09/12/20 03:44 Epoetin Bonilla (Epoetin Bonilla-EPBX(NON ESRD)) 10,000 unit TUE-TUE-TUE SUBQ 06/18/20 21:00 09/16/20 20:59 06/20/20 21:35 Haloperidol Lactate (Haldol) 5 mg Q6H PRN IM Agitation 06/21/20 23:15 08/05/20 23:14 Heparin Sodium/ Sodium Chloride (Heparin 1000 units/500ml Premix) 1,000 unit ONCE PRN INJ radiology procedure 06/20/20 08:30 06/22/20 08:29 Levofloxacin (Levaquin) 500 mg Q48H GT 06/21/20 09:00 06/28/20 08:59 06/21/20 08:59 Lidocaine HCl (Xylocaine 1% 30ml) 30 ml ONCE PRN INJ radiology procdure 06/20/20 08:30 06/22/20 08:29 Linezolid (Zyvox) 600 mg EVERY 12 HOURS GT 06/19/20 21:00 06/24/20 20:59 06/21/20 20:06 Meropenem 500 mg/ Sodium Chloride 55 ml @ 110 mls/hr Q24H IVPB 06/21/20 18:00 06/26/20 17:59 06/21/20 17:02 Pantoprazole (Protonix) 40 mg EVERY 12 HOURS IVP 06/14/20 11:45 07/14/20 11:44 06/21/20 20:06 Last 24 Hour Vital Signs Date Time Temp Pulse Resp B/P (MAP) Pulse Ox O2 Delivery O2 Flow Rate FiO2 06/22/20 06:42 94.0 95 06/22/20 05:42 95.0 98 06/22/20 05:28 54 22 55 06/22/20 04:42 93.4 97 06/22/20 04:12 95.0 97 06/22/20 04:00 59 06/22/20 04:00 Mechanical Ventilator 06/22/20 04:00 55 06/22/20 04:00 93.0 65 23 118/67 (84) 97 06/22/20 03:42 95.0 98 06/22/20 03:38 Mechanical Ventilator 06/22/20 03:18 59 26 55 06/22/20 03:12 96.0 98 06/22/20 03:10 57 20 95 06/22/20 01:14 60 22 55 06/22/20 00:00 61 06/22/20 00:00 96.5 65 23 110/70 (83) 100 06/22/20 00:00 55 06/22/20 00:00 Mechanical Ventilator Mechanical Ventilator 06/21/20 23:38 59 25 55 06/21/20 21:46 62 22 55 06/21/20 20:00 62 06/21/20 20:00 Mechanical Ventilator Mechanical Ventilator 06/21/20 20:00 95.0 63 23 121/76 (91) 99 06/21/20 20:00 55 06/21/20 19:36 65 25 55 06/21/20 17:00 66 22 55 06/21/20 16:00 65 06/21/20 16:00 55 06/21/20 16:00 96.0 65 23 114/72 (86) 99 06/21/20 16:00 Mechanical Ventilator Mechanical Ventilator 06/21/20 15:00 63 22 55 06/21/20 13:12 67 22 55 06/21/20 12:00 96.4 80 18 128/95 (106) 97 06/21/20 12:00 55 06/21/20 12:00 Mechanical Ventilator Mechanical Ventilator 06/21/20 12:00 73 06/21/20 11:00 69 19 55 06/21/20 10:18 Trach Collar 55.0 06/21/20 09:00 64 22 55 06/21/20 08:00 55 06/21/20 08:00 96.8 63 20 123/73 (90) 96 06/21/20 08:00 55 06/21/20 08:00 Mechanical Ventilator Mechanical Ventilator 06/21/20 07:52 63 06/21/20 07:52 63 06/21/20 07:10 63 23 55 06/21/20 04:57 65 22 55 06/21/20 04:00 97.0 68 22 117/68 (84) 97 06/21/20 04:00 55 06/21/20 04:00 71 06/21/20 04:00 Mechanical Ventilator Mechanical Ventilator 06/21/20 02:57 68 22 55 06/21/20 01:38 65 22 55 06/21/20 00:00 Mechanical Ventilator Mechanical Ventilator 06/21/20 00:00 96.9 65 20 112/67 (82) 98 06/20/20 23:51 75 24 55 06/20/20 21:43 68 19 55 06/20/20 20:00 Mechanical Ventilator Mechanical Ventilator 06/20/20 20:00 55 06/20/20 20:00 97.3 71 20 121/63 (82) 97 06/20/20 20:00 70 06/20/20 19:06 71 19 55 06/20/20 16:45 70 17 55 06/20/20 16:00 Mechanical Ventilator Mechanical Ventilator 06/20/20 16:00 55 06/20/20 16:00 95.4 72 20 116/70 (85) 99 06/20/20 16:00 70 06/20/20 15:05 71 22 55 06/20/20 13:05 68 22 55 06/20/20 12:00 90.7 63 20 122/72 (89) 99 06/20/20 12:00 63 06/20/20 12:00 55 06/20/20 12:00 Mechanical Ventilator Mechanical Ventilator 06/20/20 11:00 63 20 55 06/20/20 09:20 60 20 55 06/20/20 08:00 60 06/20/20 08:00 90.7 65 20 126/76 (93) 100 06/20/20 08:00 60 06/20/20 08:00 Mechanical Ventilator Mechanical Ventilator 06/20/20 07:10 54 19 60 Intake and Output 06/21/20 06/22/20 19:00 07:00 Intake Total 655 ml 470 ml Output Total 200 ml 200 ml Balance 455 ml 270 ml Free Water 80 ml 110 ml IV Total 55 ml Tube Feeding 520 ml 360 ml Output Urine Total 200 ml 200 ml # Bowel Movements 3 4 Labs Test 06/19/20 09:04 06/19/20 10:20 06/19/20 11:39 06/19/20 16:38 Arterial Blood pH 7.207 (7.350-7.450) 7.169 (7.350-7.450) Arterial Blood Partial Pressure CO2 75.9 mmHg (35.0-45.0) 95.6 mmHg (35.0-45.0) Arterial Blood Partial Pressure O2 71.8 mmHg (75.0-100.0) 317.7 mmHg (75.0-100.0) Arterial Blood HCO3 29.5 mmol/L (22.0-26.0) 34.0 mmol/L (22.0-26.0) Arterial Blood Oxygen Saturation 92.3 % (95-100) 99.3 % (95-100) Arterial Blood Base Excess 0.8 (-2-2) 4.0 (-2-2) Joe Test Positive Positive White Blood Count 10.8 K/UL (4.8-10.8) Red Blood Count 2.75 M/UL (4.70-6.10) Hemoglobin 7.8 G/DL (14.2-18.0) Hematocrit 25.4 % (42.0-52.0) Mean Corpuscular Volume 92 FL (80-99) Mean Corpuscular Hemoglobin 28.3 PG (27.0-31.0) Mean Corpuscular Hemoglobin Concent 30.6 G/DL (32.0-36.0) Red Cell Distribution Width 16.6 % (11.6-14.8) Platelet Count 285 K/UL (150-450) Mean Platelet Volume 7.0 FL (6.5-10.1) Neutrophils (%) (Auto) % (45.0-75.0) Lymphocytes (%) (Auto) % (20.0-45.0) Monocytes (%) (Auto) % (1.0-10.0) Eosinophils (%) (Auto) % (0.0-3.0) Basophils (%) (Auto) % (0.0-2.0) Differential Total Cells Counted 100 Neutrophils % (Manual) 73 % (45-75) Lymphocytes % (Manual) 16 % (20-45) Monocytes % (Manual) 7 % (1-10) Eosinophils % (Manual) 4 % (0-3) Basophils % (Manual) 0 % (0-2) Band Neutrophils 0 % (0-8) Platelet Estimate Adequate Platelet Morphology Normal Hypochromasia 1+ Anisocytosis 1+ Sodium Level 141 MMOL/L (136-145) Potassium Level 3.7 MMOL/L (3.5-5.1) Chloride Level 105 MMOL/L (98-107) Carbon Dioxide Level 34 MMOL/L (21-32) Anion Gap 3 mmol/L (5-15) Blood Urea Nitrogen 79 mg/dL (7-18) Creatinine 3.6 MG/DL (0.55-1.30) Estimat Glomerular Filtration Rate 21.6 mL/min (>60) Glucose Level 180 MG/DL (74-106) Calcium Level 8.0 MG/DL (8.5-10.1) Total Bilirubin 0.3 MG/DL (0.2-1.0) Aspartate Amino Transf (AST/SGOT) 449 U/L (15-37) Alanine Aminotransferase (ALT/SGPT) 373 U/L (12-78) Alkaline Phosphatase 663 U/L (46-116) Total Protein 7.4 G/DL (6.4-8.2) Albumin 1.6 G/DL (3.4-5.0) Globulin 5.8 g/dL Albumin/Globulin Ratio 0.3 (1.0-2.7) POC Whole Blood Glucose 166 MG/DL (74-106) Test 06/19/20 17:07 06/20/20 03:50 06/20/20 06:37 06/20/20 11:51 White Blood Count 12.5 K/UL (4.8-10.8) Red Blood Count 2.79 M/UL (4.70-6.10) Hemoglobin 8.0 G/DL (14.2-18.0) Hematocrit 26.7 % (42.0-52.0) Mean Corpuscular Volume 96 FL (80-99) Mean Corpuscular Hemoglobin 28.8 PG (27.0-31.0) Mean Corpuscular Hemoglobin Concent 30.1 G/DL (32.0-36.0) Red Cell Distribution Width 16.3 % (11.6-14.8) Platelet Count 247 K/UL (150-450) Mean Platelet Volume 8.3 FL (6.5-10.1) Neutrophils (%) (Auto) 82.5 % (45.0-75.0) Lymphocytes (%) (Auto) 6.3 % (20.0-45.0) Monocytes (%) (Auto) 7.2 % (1.0-10.0) Eosinophils (%) (Auto) 3.4 % (0.0-3.0) Basophils (%) (Auto) 0.6 % (0.0-2.0) Sodium Level 140 MMOL/L (136-145) Potassium Level 3.8 MMOL/L (3.5-5.1) Chloride Level 103 MMOL/L (98-107) Carbon Dioxide Level 34 MMOL/L (21-32) Anion Gap 3 mmol/L (5-15) Blood Urea Nitrogen 82 mg/dL (7-18) Creatinine 3.9 MG/DL (0.55-1.30) Estimat Glomerular Filtration Rate 19.8 mL/min (>60) Glucose Level 179 MG/DL (74-106) Calcium Level 8.4 MG/DL (8.5-10.1) Phosphorus Level 4.9 MG/DL (2.5-4.9) Magnesium Level 2.5 MG/DL (1.8-2.4) Total Bilirubin 0.4 MG/DL (0.2-1.0) Aspartate Amino Transf (AST/SGOT) 550 U/L (15-37) Alanine Aminotransferase (ALT/SGPT) 451 U/L (12-78) Alkaline Phosphatase 801 U/L (46-116) Total Protein 7.4 G/DL (6.4-8.2) Albumin 1.6 G/DL (3.4-5.0) Globulin 5.8 g/dL Albumin/Globulin Ratio 0.3 (1.0-2.7) POC Whole Blood Glucose 165 MG/DL (74-106) 170 MG/DL (74-106) Test 06/20/20 18:26 06/21/20 00:19 06/21/20 03:45 06/21/20 04:00 POC Whole Blood Glucose 150 MG/DL (74-106) 115 MG/DL (74-106) Sodium Level 139 MMOL/L (136-145) Potassium Level 3.8 MMOL/L (3.5-5.1) Chloride Level 103 MMOL/L (98-107) Carbon Dioxide Level 33 MMOL/L (21-32) Anion Gap 3 mmol/L (5-15) Blood Urea Nitrogen 90 mg/dL (7-18) Creatinine 4.3 MG/DL (0.55-1.30) Estimat Glomerular Filtration Rate 17.6 mL/min (>60) Glucose Level 135 MG/DL (74-106) Uric Acid 7.7 MG/DL (2.6-7.2) Calcium Level 8.0 MG/DL (8.5-10.1) Phosphorus Level 4.4 MG/DL (2.5-4.9) Magnesium Level 2.8 MG/DL (1.8-2.4) Total Bilirubin 0.3 MG/DL (0.2-1.0) Gamma Glutamyl Transpeptidase 162 U/L (5-85) Aspartate Amino Transf (AST/SGOT) 661 U/L (15-37) Alanine Aminotransferase (ALT/SGPT) 553 U/L (12-78) Alkaline Phosphatase 918 U/L (46-116) C-Reactive Protein, Quantitative 10.1 mg/dL (0.00-0.90) Total Protein 7.4 G/DL (6.4-8.2) Albumin 1.5 G/DL (3.4-5.0) Globulin 5.9 g/dL Albumin/Globulin Ratio 0.3 (1.0-2.7) Thyroid Stimulating Hormone (TSH) 7.385 uiU/mL (0.358-3.740) Cortisol AM Sample 17.5 UG/DL Random Vancomycin Level 25.6 ug/mL White Blood Count 11.9 K/UL (4.8-10.8) Red Blood Count 2.71 M/UL (4.70-6.10) Hemoglobin 7.7 G/DL (14.2-18.0) Hematocrit 26.2 % (42.0-52.0) Mean Corpuscular Volume 97 FL (80-99) Mean Corpuscular Hemoglobin 28.2 PG (27.0-31.0) Mean Corpuscular Hemoglobin Concent 29.2 G/DL (32.0-36.0) Red Cell Distribution Width 16.2 % (11.6-14.8) Platelet Count 244 K/UL (150-450) Mean Platelet Volume 8.4 FL (6.5-10.1) Neutrophils (%) (Auto) % (45.0-75.0) Lymphocytes (%) (Auto) % (20.0-45.0) Monocytes (%) (Auto) % (1.0-10.0) Eosinophils (%) (Auto) % (0.0-3.0) Basophils (%) (Auto) % (0.0-2.0) Differential Total Cells Counted 100 Neutrophils % (Manual) 78 % (45-75) Lymphocytes % (Manual) 10 % (20-45) Monocytes % (Manual) 5 % (1-10) Eosinophils % (Manual) 6 % (0-3) Basophils % (Manual) 0 % (0-2) Band Neutrophils 1 % (0-8) Nucleated Red Blood Cells 3 /100 WBC Platelet Estimate Adequate Platelet Morphology Normal Hypochromasia 2+ Anisocytosis 1+ Test 06/21/20 05:31 06/21/20 12:57 06/21/20 17:08 06/21/20 23:33 POC Whole Blood Glucose 143 MG/DL (74-106) 153 MG/DL (74-106) 180 MG/DL (74-106) Test 06/22/20 04:06 06/22/20 05:24 White Blood Count 9.4 K/UL (4.8-10.8) Red Blood Count 2.59 M/UL (4.70-6.10) Hemoglobin 7.5 G/DL (14.2-18.0) Hematocrit 25.2 % (42.0-52.0) Mean Corpuscular Volume 97 FL (80-99) Mean Corpuscular Hemoglobin 28.9 PG (27.0-31.0) Mean Corpuscular Hemoglobin Concent 29.7 G/DL (32.0-36.0) Red Cell Distribution Width 16.4 % (11.6-14.8) Platelet Count 207 K/UL (150-450) Mean Platelet Volume 8.8 FL (6.5-10.1) Neutrophils (%) (Auto) % (45.0-75.0) Lymphocytes (%) (Auto) % (20.0-45.0) Monocytes (%) (Auto) % (1.0-10.0) Eosinophils (%) (Auto) % (0.0-3.0) Basophils (%) (Auto) % (0.0-2.0) Sodium Level 138 MMOL/L (136-145) Potassium Level 4.4 MMOL/L (3.5-5.1) Chloride Level 103 MMOL/L (98-107) Carbon Dioxide Level 30 MMOL/L (21-32) Anion Gap 5 mmol/L (5-15) Blood Urea Nitrogen 72 mg/dL (7-18) Creatinine 3.6 MG/DL (0.55-1.30) Estimat Glomerular Filtration Rate 21.6 mL/min (>60) Glucose Level 164 MG/DL (74-106) Uric Acid 6.0 MG/DL (2.6-7.2) Calcium Level 8.5 MG/DL (8.5-10.1) Phosphorus Level 3.8 MG/DL (2.5-4.9) Magnesium Level 2.9 MG/DL (1.8-2.4) Total Bilirubin 0.4 MG/DL (0.2-1.0) Aspartate Amino Transf (AST/SGOT) 1518 U/L (15-37) Alanine Aminotransferase (ALT/SGPT) 833 U/L (12-78) Alkaline Phosphatase 1091 U/L (46-116) C-Reactive Protein, Quantitative 9.0 mg/dL (0.00-0.90) Pro-B-Type Natriuretic Peptide > 79871 pg/mL (0-125) Total Protein 7.3 G/DL (6.4-8.2) Albumin 1.6 G/DL (3.4-5.0) Globulin 5.7 g/dL Albumin/Globulin Ratio 0.3 (1.0-2.7) POC Whole Blood Glucose 144 MG/DL (74-106) Height (Feet): 5 Height (Inches): 8.00 Weight (Pounds): 143 Objective PHYSICAL EXAMINATION: VITAL SIGNS: reviewed HEAD AND NECK: Show status post tracheostomy. vent+ LUNGS: Coarse rhonchi and basilar rales. CARDIOVASCULAR: Shows irregular S1 and S2 with no gallop. ABDOMEN: Soft. Status post G-tube. EXTREMITIES: No pitting edema.++Left Jose Epperson MD Jun 22, 2020 06:58
--- NOTE | 2020-06-22 07:30 | NUR ---
NURSE NOTES: Report received from Amparo Bloom RN.Pt awake,alert, impulsive,confused, on and off,with bilat wrist restraints, SP fall ,noted no resp distress with trach tube to vent,ordered vent settings tolerated,no signs of pain or discomfort,SR on the monitor,GTF Nepro at 40 ml/hr,no residual noted,Sparrow cath draining yellow urine,skin warm and dry,with LT BKA sutures in placed,multiple skin breaks noted,sacral wound S/P surgery with sutures in placed,,SR up x2 HOB elevated bed lock in lowest position will continue with plans of care.
--- NOTE | 2020-06-22 07:30 | NUR ---
NURSE HAND-OFF REPORT: Important Events on Shift: S/P Fall, head CT negative, Post fall assessment initiated. Patient Status: Vital signs stable, but low temperature. Diet: Nepro Pending Orders: n Pending Results/Labs:n Pending MD notification:n Latest Vital Signs: Temperature 94.0 , Pulse 54 , B/P 123 /74 , Respiratory Rate 22 , O2 SAT 95 , Mechanical Ventilator, O2 Flow Rate 55.0 . Vital Sign Comment: [] EKG Rhythm: Sinus Bradycardia Rhythm change?: N MD Notified?: Jennifer Lipscomb MD Response: No New Orders Received Latest Santiago Fall Score: 95 Fall Risk: High Risk Safety Measures: Call light Within Reach, Bed Alarm Zone 2, Side Rails Side Rails x3, Bed position Low and Locked. Fall Precautions: Yellow Socks Yellow Gown Door Sign Patient Fall Education Report given to MAX Greer.
--- NOTE | 2020-06-22 09:30 | NUR ---
NURSE NOTES: Family member ,pt's sister Stephy and bothjean Douglas at bedside,notified by beni kong of pt's fall,updated re pt's condition.
[2020-06-22] MEDS: Pantoprazole Inj IVP SCH ×2 (09:37→20:13)
[2020-06-22] MEDS: Ascorbic Acid 500mg tab ORAL SCH (09:38)
--- NOTE | 2020-06-22 10:30 | NUR ---
NURSE NOTES: Pt with no IV access,IV insertion to RFA with 20 G angio cath inserted by Juana SANTANA.Procedure tolerated well.
--- NOTE | 2020-06-22 10:38 | Pulmonology Progress Note ---
Subjective ROS Limited/Unobtainable: Yes Interval Events: Received dialysis yesterday. Remains on vent. Constitutional: Denies: fever HEENT: Repors: no symptoms Respiratory: Reports: no symptoms Cardiovascular: Reports: no symptoms Gastrointestinal/Abdominal: Reports: no symptoms Genitourinary: Reports: no symptoms Allergies: Coded Allergies: No Known Allergies (Unverified , 06/13/20) Objective Last 24 Hour Vital Signs Date Time Temp Pulse Resp B/P (MAP) Pulse Ox O2 Delivery O2 Flow Rate FiO2 06/22/20 09:10 56 22 55 06/22/20 08:00 Mechanical Ventilator 15.0 06/22/20 08:00 53 06/22/20 08:00 90.5 50 20 115/65 (82) 97 06/22/20 08:00 55 06/22/20 07:42 90.5 95 06/22/20 06:42 94.0 95 06/22/20 05:42 95.0 98 06/22/20 05:28 54 22 55 06/22/20 04:42 93.4 97 06/22/20 04:12 95.0 97 06/22/20 04:00 59 06/22/20 04:00 Mechanical Ventilator 06/22/20 04:00 55 06/22/20 04:00 93.0 65 23 118/67 (84) 97 06/22/20 03:42 95.0 98 06/22/20 03:38 Mechanical Ventilator 06/22/20 03:18 59 26 55 06/22/20 03:12 96.0 98 06/22/20 03:10 57 20 95 06/22/20 01:14 60 22 55 06/22/20 00:00 61 06/22/20 00:00 96.5 65 23 110/70 (83) 100 06/22/20 00:00 55 06/22/20 00:00 Mechanical Ventilator Mechanical Ventilator 06/21/20 23:38 59 25 55 06/21/20 21:46 62 22 55 06/21/20 20:00 62 06/21/20 20:00 Mechanical Ventilator Mechanical Ventilator 06/21/20 20:00 95.0 63 23 121/76 (91) 99 06/21/20 20:00 55 06/21/20 19:36 65 25 55 06/21/20 17:00 66 22 55 06/21/20 16:00 65 06/21/20 16:00 55 06/21/20 16:00 96.0 65 23 114/72 (86) 99 06/21/20 16:00 Mechanical Ventilator Mechanical Ventilator 06/21/20 15:00 63 22 55 06/21/20 13:12 67 22 55 06/21/20 12:00 96.4 80 18 128/95 (106) 97 06/21/20 12:00 55 06/21/20 12:00 Mechanical Ventilator Mechanical Ventilator 06/21/20 12:00 73 06/21/20 11:00 69 19 55 Intake and Output 06/21/20 06/22/20 19:00 07:00 Intake Total 655 ml 470 ml Output Total 200 ml 200 ml Balance 455 ml 270 ml Free Water 80 ml 110 ml IV Total 55 ml Tube Feeding 520 ml 360 ml Output Urine Total 200 ml 200 ml # Bowel Movements 3 4 General Appearance: no acute distress HEENT: status post trach Respiratory: chest wall non-tender, lungs clear Cardiovascular: normal peripheral pulses, normal rate Abdomen: normal bowel sounds Extremities: no cyanosis Laboratory Tests 06/21/20 12:57: POC Whole Blood Glucose [Pending] 06/21/20 17:08: POC Whole Blood Glucose 153H 06/21/20 23:33: POC Whole Blood Glucose 180H 06/22/20 04:06: White Blood Count 9.4, Red Blood Count 2.59L, Hemoglobin 7.5L, Hematocrit 25.2L, Mean Corpuscular Volume 97, Mean Corpuscular Hemoglobin 28.9, Mean Corpuscular Hemoglobin Concent 29.7L, Red Cell Distribution Width 16.4H, Platelet Count 207, Mean Platelet Volume 8.8, Neutrophils (%) (Auto) , Lymphocytes (%) (Auto) , Monocytes (%) (Auto) , Eosinophils (%) (Auto) , Basophils (%) (Auto) , Differential Total Cells Counted 100, Neutrophils % (Manual) 79H, Lymphocytes % (Manual) 10L, Monocytes % (Manual) 6, Eosinophils % (Manual) 5H, Basophils % (Manual) 0, Band Neutrophils 0, Platelet Estimate Adequate, Platelet Morphology Normal, Hypochromasia 1+, Anisocytosis 1+, Sodium Level 138, Potassium Level 4.4, Chloride Level 103, Carbon Dioxide Level 30, Anion Gap 5, Blood Urea Nitrogen 72H, Creatinine 3.6H, Estimat Glomerular Filtration Rate 21.6, Glucose Level 164H, Uric Acid 6.0, Calcium Level 8.5, Phosphorus Level 3.8, Magnesium Level 2.9H, Total Bilirubin 0.4, Aspartate Amino Transf (AST/SGOT) 1518H, Alanine Aminotransferase (ALT/SGPT) 833H, Alkaline Phosphatase 1091H, C-Reactive Protein, Quantitative 9.0H, Pro-B-Type Natriuretic Peptide > 14174Q, Total Protein 7.3, Albumin 1.6L, Globulin 5.7, Albumin/Globulin Ratio 0.3L 06/22/20 05:24: POC Whole Blood Glucose 144H Current Medications Medications (Trade) Dose Ordered Sig/Maryjane Route PRN Reason Start Time Stop Time Status Last Admin Dose Admin Acetaminophen (Tylenol) 650 mg Q4H PRN GT Mild Pain (Pain Scale 1-3) 06/18/20 23:00 07/18/20 22:59 Acetaminophen (Tylenol) 650 mg Q4HR PRN GT FEVER 06/14/20 09:45 07/14/20 09:44 06/19/20 20:45 Aluminum Hydroxide (Amphojel) 1,920 mg Q6H GT 06/17/20 10:00 07/17/20 09:59 06/22/20 09:37 Ascorbic Acid (Vitamin C) 500 mg DAILY ORAL 06/16/20 09:00 07/16/20 08:59 06/22/20 09:38 Chlorhexidine Gluconate (Inés-Hex 2%) 1 applic DAILY@1999 TOPIC 06/21/20 20:00 09/19/20 19:59 06/21/20 20:06 Dextrose (Dextrose 50%) 25 ml Q30M PRN IV Hypoglycemia 06/14/20 03:45 09/12/20 03:44 Dextrose (Dextrose 50%) 50 ml Q30M PRN IV Hypoglycemia 06/14/20 03:45 09/12/20 03:44 Epoetin Bonilla (Epoetin Bonilla-EPBX(NON ESRD)) 10,000 unit TUE-WED-TUE SUBQ 06/18/20 21:00 09/16/20 20:59 06/20/20 21:35 Haloperidol Lactate (Haldol) 5 mg Q6H PRN IM Agitation 06/21/20 23:15 08/05/20 23:14 Levofloxacin (Levaquin) 500 mg Q48H GT 06/21/20 09:00 06/28/20 08:59 06/21/20 08:59 Linezolid (Zyvox) 600 mg EVERY 12 HOURS GT 06/19/20 21:00 06/24/20 20:59 06/22/20 09:38 Meropenem 500 mg/ Sodium Chloride 55 ml @ 110 mls/hr Q24H IVPB 06/21/20 18:00 06/26/20 17:59 06/21/20 17:02 Pantoprazole (Protonix) 40 mg EVERY 12 HOURS IVP 06/14/20 11:45 07/14/20 11:44 06/22/20 09:37 Assessment/Plan Problems: (1) Acute respiratory failure Assessment/Plan IMPRESSION: 1. Chronic respiratory failure. 2. Hypoxemia. 3. Respiratory acidosis. 4. Anemia. 5. Leukocytosis. 6. DVT 7. S/p code blue 06/19/20 DISCUSSION: The patient's x-ray is markedly abnormal with bilateral infiltrates. I suspect he has pulmonary fibrosis. Latest CXR is unchanged COVID 19 pcr and antigen both negative No anticoagulation for DVT due to anemia S/p IVC filter placement Continue assist-control mechanical ventilation; currently FiO2 reduced to 55%; SaO2 100%, broad-spectrum antibiotics. Transfusion as needed. Will decrease PEEP to 5; S/p HD WIll decrease FiO2 as tolerated I will follow carefully. Hugo Carl Omar Syed MD Jun 22, 2020 10:37
--- NOTE | 2020-06-22 12:40 | NUR ---
NURSE NOTES: Transfused 1 unit PRBC ,V/S monitored,stable,except for temperature,pt is hypothermic T90.5 F orally,denies any SOB or chills,bld transfusion tolerated.
--- NOTE | 2020-06-22 13:42 | General Progress Note ---
Subjective ROS Limited/Unobtainable: Yes Allergies: Coded Allergies: No Known Allergies (Unverified , 06/13/20) Objective Last 24 Hour Vital Signs Date Time Temp Pulse Resp B/P (MAP) Pulse Ox O2 Delivery O2 Flow Rate FiO2 06/22/20 12:42 90.5 95 06/22/20 12:10 55 06/22/20 12:00 55 06/22/20 11:52 Mechanical Ventilator 15.0 06/22/20 11:49 90.5 54 20 116/61 (79) 100 06/22/20 11:00 56 21 55 06/22/20 09:10 56 22 55 06/22/20 08:42 90.5 95 06/22/20 08:00 Mechanical Ventilator 15.0 06/22/20 08:00 53 06/22/20 08:00 90.5 50 20 115/65 (82) 97 06/22/20 08:00 55 06/22/20 07:42 90.5 95 06/22/20 06:42 94.0 95 06/22/20 05:42 95.0 98 06/22/20 05:28 54 22 55 06/22/20 04:42 93.4 97 06/22/20 04:12 95.0 97 06/22/20 04:00 59 06/22/20 04:00 Mechanical Ventilator 06/22/20 04:00 55 06/22/20 04:00 93.0 65 23 118/67 (84) 97 06/22/20 03:42 95.0 98 06/22/20 03:38 Mechanical Ventilator 06/22/20 03:18 59 26 55 06/22/20 03:12 96.0 98 06/22/20 03:10 57 20 95 06/22/20 01:14 60 22 55 06/22/20 00:00 61 06/22/20 00:00 96.5 65 23 110/70 (83) 100 06/22/20 00:00 55 06/22/20 00:00 Mechanical Ventilator Mechanical Ventilator 06/21/20 23:38 59 25 55 06/21/20 21:46 62 22 55 06/21/20 20:00 62 06/21/20 20:00 Mechanical Ventilator Mechanical Ventilator 06/21/20 20:00 95.0 63 23 121/76 (91) 99 06/21/20 20:00 55 06/21/20 19:36 65 25 55 06/21/20 17:00 66 22 55 06/21/20 16:00 65 06/21/20 16:00 55 06/21/20 16:00 96.0 65 23 114/72 (86) 99 06/21/20 16:00 Mechanical Ventilator Mechanical Ventilator 06/21/20 15:00 63 22 55 Intake and Output 06/21/20 06/22/20 19:00 07:00 Intake Total 655 ml 470 ml Output Total 1000 ml 200 ml Balance -345 ml 270 ml Free Water 80 ml 110 ml IV Total 55 ml Tube Feeding 520 ml 360 ml Output Urine Total 200 ml 200 ml Hemodialysis UF 800 ml # Bowel Movements 3 4 Laboratory Tests 06/21/20 17:08: POC Whole Blood Glucose 153H 06/21/20 23:33: POC Whole Blood Glucose 180H 06/22/20 04:06: White Blood Count 9.4, Red Blood Count 2.59L, Hemoglobin 7.5L, Hematocrit 25.2L, Mean Corpuscular Volume 97, Mean Corpuscular Hemoglobin 28.9, Mean Corpuscular Hemoglobin Concent 29.7L, Red Cell Distribution Width 16.4H, Platelet Count 207, Mean Platelet Volume 8.8, Neutrophils (%) (Auto) , Lymphocytes (%) (Auto) , Monocytes (%) (Auto) , Eosinophils (%) (Auto) , Basophils (%) (Auto) , Differential Total Cells Counted 100, Neutrophils % (Manual) 79H, Lymphocytes % (Manual) 10L, Monocytes % (Manual) 6, Eosinophils % (Manual) 5H, Basophils % (Manual) 0, Band Neutrophils 0, Platelet Estimate Adequate, Platelet Morphology Normal, Hypochromasia 1+, Anisocytosis 1+, Sodium Level 138, Potassium Level 4.4, Chloride Level 103, Carbon Dioxide Level 30, Anion Gap 5, Blood Urea Nitrogen 72H, Creatinine 3.6H, Estimat Glomerular Filtration Rate 21.6, Glucose Level 164H, Uric Acid 6.0, Calcium Level 8.5, Phosphorus Level 3.8, Magnesium Level 2.9H, Total Bilirubin 0.4, Aspartate Amino Transf (AST/SGOT) 1518H, Alanine Aminotransferase (ALT/SGPT) 833H, Alkaline Phosphatase 1091H, C-Reactive Protein, Quantitative 9.0H, Pro-B-Type Natriuretic Peptide > 03997V, Total Protein 7.3, Albumin 1.6L, Globulin 5.7, Albumin/Globulin Ratio 0.3L 06/22/20 05:24: POC Whole Blood Glucose 144H 06/22/20 11:59: POC Whole Blood Glucose 143H Height (Feet): 5 Height (Inches): 8.00 Weight (Pounds): 143 Assessment/Plan Problem List: (1) Anemia ICD Codes: D64.9 - Anemia, unspecified SNOMED: 716729972 (2) KERRI (acute kidney injury) ICD Codes: N17.9 - Acute kidney failure, unspecified SNOMED: 0835344, 51306337 (3) Acute respiratory failure ICD Codes: J96.00 - Acute respiratory failure, unspecified whether with hypoxia or hypercapnia SNOMED: 19497097 Qualifiers: Qualified Codes: J96.02 - Acute respiratory failure with hypercapnia (4) Hyperkalemia ICD Codes: E87.5 - Hyperkalemia SNOMED: 58911871 (5) Abnormal laboratory test result ICD Codes: R89.9 - Unspecified abnormal finding in specimens from other organs, systems and tissues SNOMED: 427530557 (6) Anemia ICD Codes: D64.9 - Anemia, unspecified SNOMED: 905450589 Status: progressing Assessment/Plan: s/p fall with no apparent injury restraint per dr ordoñez fluid overload sepsis pulm edema arf trach and peg poor prognosis Nieda Apple MD Jun 22, 2020 13:42
--- NOTE | 2020-06-22 13:44 | NUR ---
CASE MANAGEMENT:REVIEW SI;SEPSIS. PNA. HYPOTHERMIA. T 90.5 P 50 R 26 BP 121/76 O2 95% TRACH/VENT FIO2 55% H/H 7.5/25.2 BUN 72 CR 3.6 BG 165 MAG 2.9 AST 1518 ALP 833 ALP 1091 CRP 9.0 BNP >36018 ALB 1.6 IS;MEROPENEM IV Q24 ZYVOX GT Q12 PROTONIX IV Q12 AMPHOJEL GT Q6 KALYN STATUS DCP;FROM [facility]
--- NOTE | 2020-06-22 13:59 | Nephrology Progress Note ---
Assessment/Plan Problem List: (1) KERRI (acute kidney injury) (2) Acute respiratory failure (3) Chronic respiratory failure (4) Anemia (5) Hyperkalemia Assessment Acute on chronic renal failure Anemia Respiratory failure acute on chronic Respiratory acidosis and hypoxia Hyperkalemia Plan June 22: Patient dialyzed yesterday. Labs reviewed. Liver function tests and enzymes are elevated. Continue to monitor renal parameters and LFTs. Continue per consultants. Patient full code. June 21: Patient due for dialysis today. Labs and medication list reviewed. Discussed with RN. Continue to monitor renal parameters. June 20: Patient had an episode of bradycardia last night. Serum creatinine rising. Patient continues to have respiratory acidosis. Discussed with MAX Bond. Will order non tunneled dialysis catheter placement for initiation of dialysis treatment due to acute renal failure. Patient remains full code. I favor comfort care if bioethics consultation is sought and physicians on the team agreeable. June 19: No CHEM panel today. Low hemoglobin as of yesterday's lab results. Anemia management per Dr. Cueva. Continue to monitor renal parameters. June 18: Labs are reviewed. Hemoglobin lower. Creatinine higher. ABG not done yet. Patient full code. Continue per consultants. June 17: Labs reviewed. Hemoglobin low. Creatinine up to 3. Phosphorus levels elevated. Will start Amphojel via GT tube as a phosphorus binder. Monitor renal parameters. Check ABG. Continue per consultants. June 16: Labs reviewed. Serum creatinine mariana to 2.6. Abnormal electrolytes now normalized. Continue to monitor renal parameters and avoid nephrotoxic's. Continue to adjust pulmonary status as possible. June 15: ABG pH of 7.1. 2D echo suggestive of ejection fraction of 50%. Labs reviewed. Serum creatinine mariana. Will hold IV Lasix. Will give Kayexalate for high potassium and 1 amp of sodium bicarb. Albumin IV bolus given. Continue per consultants. Continue to monitor renal parameters. Kidney ultrasound ordered. June 14: As follow Pulmonary evaluation Sparrow catheter Hold IV fluid IV fluid, until 2D echo results available Kayexalate for high potassium IV Protonix 2D echocardiogram Anemia work-up More labs ordered Subjective ROS Limited/Unobtainable: Yes Objective Objective Last 24 Hour Vital Signs Date Time Temp Pulse Resp B/P (MAP) Pulse Ox O2 Delivery O2 Flow Rate FiO2 06/22/20 12:42 90.5 95 06/22/20 12:10 55 06/22/20 12:00 55 06/22/20 11:52 Mechanical Ventilator 15.0 06/22/20 11:49 90.5 54 20 116/61 (79) 100 06/22/20 11:00 56 21 55 06/22/20 09:10 56 22 55 06/22/20 08:42 90.5 95 06/22/20 08:00 Mechanical Ventilator 15.0 06/22/20 08:00 53 06/22/20 08:00 90.5 50 20 115/65 (82) 97 06/22/20 08:00 55 06/22/20 07:42 90.5 95 06/22/20 06:42 94.0 95 06/22/20 05:42 95.0 98 06/22/20 05:28 54 22 55 06/22/20 04:42 93.4 97 06/22/20 04:12 95.0 97 06/22/20 04:00 59 06/22/20 04:00 Mechanical Ventilator 06/22/20 04:00 55 06/22/20 04:00 93.0 65 23 118/67 (84) 97 06/22/20 03:42 95.0 98 06/22/20 03:38 Mechanical Ventilator 06/22/20 03:18 59 26 55 06/22/20 03:12 96.0 98 06/22/20 03:10 57 20 95 06/22/20 01:14 60 22 55 06/22/20 00:00 61 06/22/20 00:00 96.5 65 23 110/70 (83) 100 06/22/20 00:00 55 06/22/20 00:00 Mechanical Ventilator Mechanical Ventilator 06/21/20 23:38 59 25 55 06/21/20 21:46 62 22 55 06/21/20 20:00 62 06/21/20 20:00 Mechanical Ventilator Mechanical Ventilator 06/21/20 20:00 95.0 63 23 121/76 (91) 99 06/21/20 20:00 55 06/21/20 19:36 65 25 55 06/21/20 17:00 66 22 55 06/21/20 16:00 65 06/21/20 16:00 55 06/21/20 16:00 96.0 65 23 114/72 (86) 99 06/21/20 16:00 Mechanical Ventilator Mechanical Ventilator 06/21/20 15:00 63 22 55 Intake and Output 06/21/20 06/22/20 19:00 07:00 Intake Total 655 ml 470 ml Output Total 1000 ml 200 ml Balance -345 ml 270 ml Free Water 80 ml 110 ml IV Total 55 ml Tube Feeding 520 ml 360 ml Output Urine Total 200 ml 200 ml Hemodialysis UF 800 ml # Bowel Movements 3 4 Laboratory Tests 06/21/20 17:08: POC Whole Blood Glucose 153H 06/21/20 23:33: POC Whole Blood Glucose 180H 06/22/20 04:06: White Blood Count 9.4, Red Blood Count 2.59L, Hemoglobin 7.5L, Hematocrit 25.2L, Mean Corpuscular Volume 97, Mean Corpuscular Hemoglobin 28.9, Mean Corpuscular Hemoglobin Concent 29.7L, Red Cell Distribution Width 16.4H, Platelet Count 207, Mean Platelet Volume 8.8, Neutrophils (%) (Auto) , Lymphocytes (%) (Auto) , Monocytes (%) (Auto) , Eosinophils (%) (Auto) , Basophils (%) (Auto) , Diff erential Total Cells Counted 100, Neutrophils % (Manual) 79H, Lymphocytes % (Manual) 10L, Monocytes % (Manual) 6, Eosinophils % (Manual) 5H, Basophils % (Manual) 0, Band Neutrophils 0, Platelet Estimate Adequate, Platelet Morphology Normal, Hypochromasia 1+, Anisocytosis 1+, Sodium Level 138, Potassium Level 4.4, Chloride Level 103, Carbon Dioxide Level 30, Anion Gap 5, Blood Urea Nitrogen 72H, Creatinine 3.6H, Estimat Glomerular Filtration Rate 21.6, Glucose Level 164H, Uric Acid 6.0, Calcium Level 8.5, Phosphorus Level 3.8, Magnesium Level 2.9H, Total Bilirubin 0.4, Aspartate Amino Transf (AST/SGOT) 1518H, Alanine Aminotransferase (ALT/SGPT) 833H, Alkaline Phosphatase 1091H, C-Reactive Protein, Quantitative 9.0H, Pro-B-Type Natriuretic Peptide > 95719F, Total Protein 7.3, Albumin 1.6L, Globulin 5.7, Albumin/Globulin Ratio 0.3L 06/22/20 05:24: POC Whole Blood Glucose 144H 06/22/20 11:59: POC Whole Blood Glucose 143H Height (Feet): 5 Height (Inches): 8.00 Weight (Pounds): 143 General Appearance: no apparent distress, lethargic EENT: other - On mechanical ventilator Cardiovascular: normal rate - Rate in mid 50s Respiratory/Chest: decreased breath sounds Abdomen: distended Leonidas Honeycutt MD Jun 22, 2020 13:59
[2020-06-22] MEDS ORDERED: NS 275ml ONE (15:13)
[2020-06-22] MEDS ORDERED: Tubing IV Blood Pump IV ONE (15:13)
[2020-06-22] MEDS ORDERED: Tubing IV Secondary IV ONE (15:13)
[2020-06-22] MEDS ORDERED: NS 500ML ONE (15:13)
--- NOTE | 2020-06-22 15:40 | NUR ---
NURSE NOTES: Ongoing blood transfusion completed ,no transfusion reaction presented.
--- NOTE | 2020-06-22 17:14 | Surgery Progress Note ---
Surgery Progress Note Subjective Symptoms: improved Objective Last 24 Hour Vital Signs Date Time Temp Pulse Resp B/P (MAP) Pulse Ox O2 Delivery O2 Flow Rate FiO2 06/22/20 16:05 90.9 57 18 128/72 (90) 100 06/22/20 16:00 Mechanical Ventilator 15.0 06/22/20 16:00 55 06/22/20 15:10 55 19 55 06/22/20 13:10 55 21 55 06/22/20 12:42 90.5 95 06/22/20 12:10 55 06/22/20 12:00 55 06/22/20 11:52 Mechanical Ventilator 15.0 06/22/20 11:49 90.5 54 20 116/61 (79) 100 06/22/20 11:00 56 21 55 06/22/20 09:10 56 22 55 06/22/20 08:42 90.5 95 06/22/20 08:00 Mechanical Ventilator 15.0 06/22/20 08:00 53 06/22/20 08:00 90.5 50 20 115/65 (82) 97 06/22/20 08:00 55 06/22/20 07:42 90.5 95 06/22/20 06:47 53 21 55 06/22/20 06:42 94.0 95 06/22/20 05:42 95.0 98 06/22/20 05:28 54 22 55 06/22/20 04:42 93.4 97 06/22/20 04:12 95.0 97 06/22/20 04:00 59 06/22/20 04:00 Mechanical Ventilator 06/22/20 04:00 55 06/22/20 04:00 93.0 65 23 118/67 (84) 97 06/22/20 03:42 95.0 98 06/22/20 03:38 Mechanical Ventilator 06/22/20 03:18 59 26 55 06/22/20 03:12 96.0 98 06/22/20 03:10 57 20 95 06/22/20 01:14 60 22 55 06/22/20 00:00 61 06/22/20 00:00 96.5 65 23 110/70 (83) 100 06/22/20 00:00 55 06/22/20 00:00 Mechanical Ventilator Mechanical Ventilator 06/21/20 23:38 59 25 55 06/21/20 21:46 62 22 55 06/21/20 20:00 62 06/21/20 20:00 Mechanical Ventilator Mechanical Ventilator 06/21/20 20:00 95.0 63 23 121/76 (91) 99 06/21/20 20:00 55 06/21/20 19:36 65 25 55 I&O Intake and Output 06/21/20 06/22/20 19:00 07:00 Intake Total 655 ml 510 ml Output Total 1000 ml 200 ml Balance -345 ml 310 ml Free Water 80 ml 110 ml IV Total 55 ml Tube Feeding 520 ml 400 ml Output Urine Total 200 ml 200 ml Hemodialysis UF 800 ml # Bowel Movements 3 4 Dressing: saturated Cardiovascular: RSR Respiratory: decreased breath sounds Abdomen: non-tender, present bowel sounds Extremities: no tenderness, no cyanosis Laboratory Tests Test 06/21/20 23:33 06/22/20 04:06 06/22/20 05:24 06/22/20 11:59 POC Whole Blood Glucose 180 MG/DL (74-106) H 144 MG/DL (74-106) H 143 MG/DL (74-106) H White Blood Count 9.4 K/UL (4.8-10.8) Red Blood Count 2.59 M/UL (4.70-6.10) L Hemoglobin 7.5 G/DL (14.2-18.0) L Hematocrit 25.2 % (42.0-52.0) L Mean Corpuscular Volume 97 FL (80-99) Mean Corpuscular Hemoglobin 28.9 PG (27.0-31.0) Mean Corpuscular Hemoglobin Concent 29.7 G/DL (32.0-36.0) L Red Cell Distribution Width 16.4 % (11.6-14.8) H Platelet Count 207 K/UL (150-450) Mean Platelet Volume 8.8 FL (6.5-10.1) Neutrophils (%) (Auto) % (45.0-75.0) Lymphocytes (%) (Auto) % (20.0-45.0) Monocytes (%) (Auto) % (1.0-10.0) Eosinophils (%) (Auto) % (0.0-3.0) Basophils (%) (Auto) % (0.0-2.0) Differential Total Cells Counted 100 Neutrophils % (Manual) 79 % (45-75) H Lymphocytes % (Manual) 10 % (20-45) L Monocytes % (Manual) 6 % (1-10) Eosinophils % (Manual) 5 % (0-3) H Basophils % (Manual) 0 % (0-2) Band Neutrophils 0 % (0-8) Platelet Estimate Adequate Platelet Morphology Normal Hypochromasia 1+ Anisocytosis 1+ Sodium Level 138 MMOL/L (136-145) Potassium Level 4.4 MMOL/L (3.5-5.1) Chloride Level 103 MMOL/L (98-107) Carbon Dioxide Level 30 MMOL/L (21-32) Anion Gap 5 mmol/L (5-15) Blood Urea Nitrogen 72 mg/dL (7-18) H Creatinine 3.6 MG/DL (0.55-1.30) H Estimat Glomerular Filtration Rate 21.6 mL/min (>60) Glucose Level 164 MG/DL (74-106) H Uric Acid 6.0 MG/DL (2.6-7.2) Calcium Level 8.5 MG/DL (8.5-10.1) Phosphorus Level 3.8 MG/DL (2.5-4.9) Magnesium Level 2.9 MG/DL (1.8-2.4) H Total Bilirubin 0.4 MG/DL (0.2-1.0) Aspartate Amino Transf (AST/SGOT) 1518 U/L (15-37) H Alanine Aminotransferase (ALT/SGPT) 833 U/L (12-78) H Alkaline Phosphatase 1091 U/L (46-116) H C-Reactive Protein, Quantitative 9.0 mg/dL (0.00-0.90) H Pro-B-Type Natriuretic Peptide > 25952 pg/mL (0-125) H Total Protein 7.3 G/DL (6.4-8.2) Albumin 1.6 G/DL (3.4-5.0) L Globulin 5.7 g/dL Albumin/Globulin Ratio 0.3 (1.0-2.7) L Test 06/22/20 16:54 POC Whole Blood Glucose 160 MG/DL (74-106) H Plan Problems: (1) Leukocytosis Assessment & Plan: 54-year-old male multiple comorbidities admitted for abnormal chest x-ray potentially pneumonia leukocytosis abnormal labs. Patient identified to have a prior left BKA surgical sutures still in place as well as a surgical sacral wound with sutures in place. Considerations of dehiscence being identified and potential etiology of infection. After evaluation unlikely lauro rce of infection though the sacral wound was looked to be dehiscing at the inferior aspect. No acute surgical mention at this time We will discussed care plan with PCP Recommend follow-up with initial surgeon considerations of removal of surgical sutures Care plan initiated worsening lft's US ordered ? shayla (2) Surgical wound dehiscence Assessment & Plan: Patient identified to have a left BKA surgical sutures in place flap looks like it is taken well no signs of infection at this time no signs of seroma hematoma or drainage. Unknown exact length or duration of potential prior left BKA and until then recommend leaving sutures in place as it may be too early though it does look well-healed. If able to obtain prior records we will be happy to remove sutures otherwise will need follow-up with primary surgeon furthermore patient identified to have a surgical wound in the sacral area seems he probably potentially had a stage IV sacral decubitus ulcer that had debridement and primary closure. Fortunately. Sutures are still in place and it looks like the inferior aspect may be slowly dehiscing. There is no significant drainage no foul odor no signs of active infection unknown if bone was palpable prior. Can consider removing surgical sutures but again would recommend obtaining prior records of possible prior to doing so. Also recommend following up with primary surgeon as this may need ongoing continued care. Will follow with recommendations and as information is available. Continue current care plan. Wash wounds daily with normal saline. Apply skin protectant Optifoam dressing. Turn every 2 hours. Offload pressure with pillows and air mattress. Nutritional optimization. (3) History of left below knee amputation (4) Malnutrition Assessment & Plan: DAILY ESTIMATED NEEDS: Needs based on Wound, critical care, underweight/ 55.5kg 25-33 kcals/kg 9415-6260 total kcals 1.25-2 g protein/kg 69-111 g total protein 25-30 mL/kg 2005-8482 total fluid mLs NUTRITION DIAGNOSIS: * Swallowing difficulty R/T respiratory status as evidenced by pt is trach/vent dep, PEG dep, NPO at this time. CURRENT TF:NPO ENTERAL NUTRITION RECOMMENDATIONS: Nepro @ 40ml/hr x 24 hrs to provide 960ml, 1728kcal, 78g prot, 698ml free water * Rec to continue [employer] TF of Nepro (K 5.8, 5.0) * Rec goal rate of 40ml/hr x 24 hrs * HOB over 30 degrees/ water flush per MD ADDITIONAL RECOMMENDATIONS: * Per SNF: HT=69" FI=900oob -> rec daily calibrated bedscale wt * Monitor lytes: elev K * Wound healing: f/up w/ WC eval add Vit C 500mg QD, Av BID via PEG (5) Anemia (6) KERRI (acute kidney injury) (7) Acute respiratory failure (8) Hyperkalemia (9) Anemia (10) Abnormal laboratory test result (11) Chronic respiratory failure Azar Mares Jun 22, 2020 17:14
--- NOTE | 2020-06-22 17:18 | Cardiac Electrophysiology PN ---
Assessment/Plan Assessment/Plan 1. Vent-dependent respirator failure. S/P tracheostomy. Chest x-ray extensive bilateral pneumonia or ARDS. His creatinine is 3.2. Off isolation EF 50%. Ruled out for AL. BNP 91921. On iv Abx 2. Tachycardia, likely due to respiratory failure. 3. Right femoral vein DVT. S/P IVC filter 06/18 4. Dysphagia, status post PEG placement. 5. Renal failure. S/P Right IJ Iron and HD by Dr. Honeycutt. 6. Severe anemia, S/P PRBC DW RN Subjective Subjective On the Vent off isolation. On 55% Fio2 and PEEP. S/P IVC filter . S/P 1 unit PRBC again today S/P Right IJ Iron and first HD 06/21/20 Was found on the floor and now in restraints Objective Last 24 Hour Vital Signs Date Time Temp Pulse Resp B/P (MAP) Pulse Ox O2 Delivery O2 Flow Rate FiO2 06/22/20 16:05 90.9 57 18 128/72 (90) 100 06/22/20 16:00 Mechanical Ventilator 15.0 06/22/20 16:00 55 06/22/20 15:10 55 19 55 06/22/20 13:10 55 21 55 06/22/20 12:42 90.5 95 06/22/20 12:10 55 06/22/20 12:00 55 06/22/20 11:52 Mechanical Ventilator 15.0 06/22/20 11:49 90.5 54 20 116/61 (79) 100 06/22/20 11:00 56 21 55 06/22/20 09:10 56 22 55 06/22/20 08:42 90.5 95 06/22/20 08:00 Mechanical Ventilator 15.0 06/22/20 08:00 53 06/22/20 08:00 90.5 50 20 115/65 (82) 97 06/22/20 08:00 55 06/22/20 07:42 90.5 95 06/22/20 06:47 53 21 55 06/22/20 06:42 94.0 95 06/22/20 05:42 95.0 98 06/22/20 05:28 54 22 55 06/22/20 04:42 93.4 97 06/22/20 04:12 95.0 97 06/22/20 04:00 59 06/22/20 04:00 Mechanical Ventilator 06/22/20 04:00 55 06/22/20 04:00 93.0 65 23 118/67 (84) 97 06/22/20 03:42 95.0 98 06/22/20 03:38 Mechanical Ventilator 06/22/20 03:18 59 26 55 06/22/20 03:12 96.0 98 06/22/20 03:10 57 20 95 06/22/20 01:14 60 22 55 06/22/20 00:00 61 06/22/20 00:00 96.5 65 23 110/70 (83) 100 06/22/20 00:00 55 06/22/20 00:00 Mechanical Ventilator Mechanical Ventilator 06/21/20 23:38 59 25 55 06/21/20 21:46 62 22 55 06/21/20 20:00 62 06/21/20 20:00 Mechanical Ventilator Mechanical Ventilator 06/21/20 20:00 95.0 63 23 121/76 (91) 99 06/21/20 20:00 55 06/21/20 19:36 65 25 55 Intake and Output 06/21/20 06/22/20 19:00 07:00 Intake Total 655 ml 510 ml Output Total 1000 ml 200 ml Balance -345 ml 310 ml Free Water 80 ml 110 ml IV Total 55 ml Tube Feeding 520 ml 400 ml Output Urine Total 200 ml 200 ml Hemodialysis UF 800 ml # Bowel Movements 3 4 Laboratory Tests Test 06/21/20 23:33 06/22/20 04:06 06/22/20 05:24 06/22/20 11:59 POC Whole Blood Glucose 180 MG/DL (74-106) H 144 MG/DL (74-106) H 143 MG/DL (74-106) H White Blood Count 9.4 K/UL (4.8-10.8) Red Blood Count 2.59 M/UL (4.70-6.10) L Hemoglobin 7.5 G/DL (14.2-18.0) L Hematocrit 25.2 % (42.0-52.0) L Mean Corpuscular Volume 97 FL (80-99) Mean Corpuscular Hemoglobin 28.9 PG (27.0-31.0) Mean Corpuscular Hemoglobin Concent 29.7 G/DL (32.0-36.0) L Red Cell Distribution Width 16.4 % (11.6-14.8) H Platelet Count 207 K/UL (150-450) Mean Platelet Volume 8.8 FL (6.5-10.1) Neutrophils (%) (Auto) % (45.0-75.0) Lymphocytes (%) (Auto) % (20.0-45.0) Monocytes (%) (Auto) % (1.0-10.0) Eosinophils (%) (Auto) % (0.0-3.0) Basophils (%) (Auto) % (0.0-2.0) Differential Total Cells Counted 100 Neutrophils % (Manual) 79 % (45-75) H Lymphocytes % (Manual) 10 % (20-45) L Monocytes % (Manual) 6 % (1-10) Eosinophils % (Manual) 5 % (0-3) H Basophils % (Manual) 0 % (0-2) Band Neutrophils 0 % (0-8) Platelet Estimate Adequate Platelet Morphology Normal Hypochromasia 1+ Anisocytosis 1+ Sodium Level 138 MMOL/L (136-145) Potassium Level 4.4 MMOL/L (3.5-5.1) Chloride Level 103 MMOL/L (98-107) Carbon Dioxide Level 30 MMOL/L (21-32) Anion Gap 5 mmol/L (5-15) Blood Urea Nitrogen 72 mg/dL (7-18) H Creatinine 3.6 MG/DL (0.55-1.30) H Estimat Glomerular Filtration Rate 21.6 mL/min (>60) Glucose Level 164 MG/DL (74-106) H Uric Acid 6.0 MG/DL (2.6-7.2) Calcium Level 8.5 MG/DL (8.5-10.1) Phosphorus Level 3.8 MG/DL (2.5-4.9) Magnesium Level 2.9 MG/DL (1.8-2.4) H Total Bilirubin 0.4 MG/DL (0.2-1.0) Aspartate Amino Transf (AST/SGOT) 1518 U/L (15-37) H Alanine Aminotransferase (ALT/SGPT) 833 U/L (12-78) H Alkaline Phosphatase 1091 U/L (46-116) H C-Reactive Protein, Quantitative 9.0 mg/dL (0.00-0.90) H Pro-B-Type Natriuretic Peptide > 50837 pg/mL (0-125) H Total Protein 7.3 G/DL (6.4-8.2) Albumin 1.6 G/DL (3.4-5.0) L Globulin 5.7 g/dL Albumin/Globulin Ratio 0.3 (1.0-2.7) L Test 06/22/20 16:54 POC Whole Blood Glucose 160 MG/DL (74-106) H Objective HEAD AND NECK: Status post tracheostomy.Right IJ Iron in place LUNGS: Coarse rhonchi and basilar rales. CARDIOVASCULAR: Shows irregular S1 and S2 with no gallop. ABDOMEN: Soft. Status post G-tube. EXTREMITIES: No pitting edema. Lance Mcguire MD Jun 22, 2020 17:18
--- NOTE | 2020-06-22 18:00 | NUR ---
NURSE NOTES: Pt had another diarrhea stools bed bath given,pulled up and repositioned for comfort.
[2020-06-22] MEDS: Meropenem 500mg/NS 55ml IVPB SCH ×2 (18:04)
--- NOTE | 2020-06-22 19:25 | NUR ---
NURSE HAND-OFF REPORT: Important Events on Shift:transfused 1 unit PRBC. Patient Status: guarded Diet: Nepro 40 ml/hr GT Pending Orders: N/A Pending Results/Labs:N/A Pending MD notification:N/A Latest Vital Signs: Temperature 90.5 , Pulse 55 , B/P 123 /69 , Respiratory Rate 25 , O2 SAT 100 , Mechanical Ventilator, O2 Flow Rate 15.0 . Vital Sign Comment: Hypothermic EKG Rhythm: Sinus Rhythm Rhythm change?: N MD Notified?: Jennifer Lipscomb MD Response: No New Orders Received Latest Santiago Fall Score: 60 Fall Risk: High Risk Safety Measures: Call light Within Reach, Bed Alarm Zone 2, Side Rails Side Rails x3, Bed position Low and Locked. Fall Precautions: Yellow Socks Yellow Gown Door Sign Patient Fall Education Report given to MAULIK Martel RN..
--- NOTE | 2020-06-22 19:35 | NUR ---
NURSE NOTES: Receive report from MAX Greer. Pt awake in bed, eyes open, follows commands with occasional not following instructions, afebrile and no respiratory distress noted. trache to vent shiley 8, AC 16, Tidal volume 500, Fi O2 50%, P5 saturating at 97-99%. On Nephro 40ml/hr via GT infusing well without and sediments and residual. PT tolerating well. With Right IJ non tunneled dialysis catheter intact, asymptomatic. Dressing is clean also. With left Forearm 20g iv line intact, patent and asymptomatic. with Sparrow catheter to urine bag draining well with gerard yellow urine. Pt was noted trying to remove both soft wrist restraints. Educated the patient that it's for his own safety to prevent pulling medical devices such as Iv lines and Gtubes. PT understood and relax his hands on the side. Skin is intact. pulses are palpable. HOB elevated. needs were attended. Call light within reach. Bed rails are up and wheels are up. Bed alarm is on. continue plan of care.
[2020-06-22] MEDS: Dyna-Hex 2% Top Sol 2oz TOPIC SCH (20:13)
--- NOTE | 2020-06-22 23:32 | NUR ---
NURSE NOTES: Pt was noted calm in bed, not trying to remove medical devices. Pt was watching tv. remove both soft wrist restraints. skin is intact. no paresthesia. pulses are palpable. Continue to monitor the patient
[2020-06-23] VITALS (7 sets, daily range): BP systolic 101–133; BP diastolic 68–79
[2020-06-23] MEDS: Haloperidol 5mg/ml Inj IM PRN (00:23)
--- NOTE | 2020-06-23 00:25 | NUR ---
NURSE NOTES: Pt was noted to be agitated as manifested by kicking the foot of the bed, banging the side rail. Pt also was noted trying to put his right leg outside the side rail. diversions were given such as watching tv and removing blanket and pillow as requested. Pt still agitated.
--- NOTE | 2020-06-23 03:32 | NUR ---
NURSE NOTES: Pt was awake and noted trying to remove the IV line tapes during night rounds. PT also trying to reach the outer part of the side rail and trying to put his right leg out the bed. Pt hands were held and instructed not to pull medical devices for his own safety. Pt still trying to reach for the lines. Initiated both soft wrist restraints. skin is intact. No paresthesia noted. Pulses are palpable. made aware.
[2020-06-23] MEDS: Aluminum Hydroxide Gel Susp 15ml GT SCH ×5 (03:55→21:11)
--- NOTE | 2020-06-23 04:00 | NUR ---
NURSE NOTES: Pt was given bed bath. gown and linen were changed. pt tolerated well. Continue to monitor
[2020-06-23 05:50] LABS: BASOPHILS % (AUTO) 0.4 % (0.0-2.0); EOSINOPHILS % (AUTO) 5.2 % (0.0-3.0); HEMATOCRIT 27.9 % (42.0-52.0); HEMOGLOBIN 8.4 G/DL (14.2-18.0); LYMPHOCYTES % (AUTO) 10.2 % (20.0-45.0); MEAN CORPUSCULAR VOLUME 97 FL (80-99); MONOCYTES % (AUTO) 9.4 % (1.0-10.0); NEUTROPHILS % (AUTO) 74.8 % (45.0-75.0); PLATELET COUNT 199 K/UL (150-450); RED BLOOD COUNT 2.89 M/UL (4.70-6.10); RED CELL DISTRIBUTION WIDTH 16.3 % (11.6-14.8); WHITE BLOOD COUNT 9.5 K/UL (4.8-10.8)
--- NOTE | 2020-06-23 06:05 | NUR ---
NURSE NOTES: Pt asleep in bed. No respiratory distress or any discomforts noted. tolerating feeding and vent settings. continue to monitor patient
[2020-06-23 06:44] LABS: ALANINE AMINOTRANSFERASE 1006 U/L (12-78); ALBUMIN 1.6 G/DL (3.4-5.0); ALBUMIN/GLOBULIN RATIO 0.3 (1.0-2.7); ALKALINE PHOSPHATASE 1085 U/L (46-116); ANION GAP 3 mmol/L (5-15); ASPARTATE AMINO TRANSFERASE 1776 U/L (15-37); BILIRUBIN,TOTAL 0.4 MG/DL (0.2-1.0); BLOOD UREA NITROGEN 77 mg/dL (7-18); CALCIUM 8.7 MG/DL (8.5-10.1); CARBON DIOXIDE 32 MMOL/L (21-32); CHLORIDE 103 MMOL/L (98-107); CREATINE KINASE 88 U/L (26-308); CREATININE 4.3 MG/DL (0.55-1.30); GAMMA GLUTAMYL TRANSPEPTIDASE 163 U/L (5-85); PHOSPHORUS 3.5 MG/DL (2.5-4.9); POTASSIUM 3.8 MMOL/L (3.5-5.1); SODIUM 138 MMOL/L (136-145)
--- NOTE | 2020-06-23 06:59 | Hematology/Onc Progress Note ---
Assessment/Plan Assessment/Plan ASSESSMENT AND PLAN: #. Anemia that is likely due to chronic disease, r/o gi bleeding --> anemia panel has been reviewed, ferritin is >2000 --> no e/o hemolysis is noted --> transfuse on prn basis --> blood consent has been signed --> hgb 7.4-->7.4-->7-->6.7-->8-->7.5-->8.4 --> folic acid is wnl --> 1 unit prbc 06/18 --> epogen has been started # Acute DVT in the distal right common femoral vein and profunda femoris vein. --> DUPLEX. Acute DVT in the distal right common femoral vein and profunda femoris vein. 2. No evidence of left lower extremity DVT. --> cannot anticoagulate at this time --> 06/17 s/p ivc filter placement --> hold off anticoag # Leukocytosis is likely due to b/l infiltrates --> on abx as per id -> ABX yolis/vanc-->yolis/linezolid--> yolis/levaq --> continue trend --> wbc 15-->12 # Respiratory failure in this patient with vent-dependent respiratory failure. 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 # Dysphagia --> status post PEG placement. # Renal failure. -> per Dr. Honeycutt. # Hyperkalemia and kayxelate as needed. # Dvt ppx scds Appreciate consultation and dw RN Subjective Cardiovascular: Denies: no symptoms, chest pain, edema, irregular heart rate, lightheadedness, palpitations, syncope, other Respiratory: Denies: no symptoms, cough, shortness of breath, SOB with excertion, SOB at rest, sputum, wheezing, other Gastrointestinal/Abdominal: Denies: no symptoms, abdomen distended, abdominal pain, black stools, tarry stools, blood in stool, constipated, diarrhea, difficulty swallowing, nausea, poor appetite, poor fluid intake, rectal bleeding, vomiting, other Genitourinary: Denies: no symptoms, burning, discharge, frequency, flank pain, hematuria, incontinence, pain, urgency, other Neurologic/Psychiatric: Denies: no symptoms, anxiety, depressed, emotional p roblems, headache, numbness, paresthesia, pre-existing deficit, seizure, tingling, tremors, weakness, other Endocrine: Denies: no symptoms, excessive sweating, flushing, intolerance to cold, intolerance to heat, increased hunger, increased thirst, increased urine, unexplained weight gain, unexplained weight loss, other Allergies: Coded Allergies: No Known Allergies (Unverified , 06/13/20) Subjective 06/16 meds noted, labs reviewed, vent to trach, for ivc filter potentially 06/17 labs noted, meds reviewed, for ivc filter once covid neg 06/18 labs are noted, on vent and gt, 1 unit prbc ordered 06/19 labs pending, is s/p ivcf placement yesterday 06/20 for hd nontunneled cathter placement, no bleeding 06/22 labs noted, no bleeding, found down overnight, got ct brain, is neg 06/23 overnight is agitated and requiring restraints Objective Objective Current Medications Medications (Trade) Dose Ordered Sig/Maryjane Route PRN Reason Start Time Stop Time Status Last Admin Dose Admin Acetaminophen (Tylenol) 650 mg Q4H PRN GT Mild Pain (Pain Scale 1-3) 06/18/20 23:00 07/18/20 22:59 Acetaminophen (Tylenol) 650 mg Q4HR PRN GT FEVER 06/14/20 09:45 07/14/20 09:44 06/19/20 20:45 Aluminum Hydroxide (Amphojel) 1,920 mg Q6H GT 06/17/20 10:00 07/17/20 09:59 06/23/20 03:55 Ascorbic Acid (Vitamin C) 500 mg DAILY ORAL 06/16/20 09:00 07/16/20 08:59 06/22/20 09:38 Chlorhexidine Gluconate (Inés-Hex 2%) 1 applic DAILY@1999 TOPIC 06/21/20 20:00 09/19/20 19:59 06/22/20 20:13 Dextrose (Dextrose 50%) 25 ml Q30M PRN IV Hypoglycemia 06/14/20 03:45 09/12/20 03:44 Dextrose (Dextrose 50%) 50 ml Q30M PRN IV Hypoglycemia 06/14/20 03:45 09/12/20 03:44 Epoetin Bonilla (Epoetin Bonilla-EPBX(NON ESRD)) 10,000 unit SUBQ 06/18/20 21:00 09/16/20 20:59 06/20/20 21:35 Haloperidol Lactate (Haldol) 5 mg Q6H PRN IM Agitation 06/21/20 23:15 08/05/20 23:14 06/23/20 00:23 Levofloxacin (Levaquin) 500 mg Q48H GT 06/21/20 09:00 06/28/20 08:59 06/21/20 08:59 Linezolid (Zyvox) 600 mg EVERY 12 HOURS GT 06/19/20 21:00 06/24/20 20:59 06/22/20 20:13 Meropenem 500 mg/ Sodium Chloride 55 ml @ 110 mls/hr Q24H IVPB 06/21/20 18:00 06/26/20 17:59 06/22/20 18:04 Pantoprazole (Protonix) 40 mg EVERY 12 HOURS IVP 06/14/20 11:45 07/14/20 11:44 06/22/20 20:13 Last 24 Hour Vital Signs Date Time Temp Pulse Resp B/P (MAP) Pulse Ox O2 Delivery O2 Flow Rate FiO2 06/23/20 05:29 53 19 50 06/23/20 04:00 96.8 77 18 101/77 (85) 100 06/23/20 04:00 50 06/23/20 04:00 Mechanical Ventilator 15.0 06/23/20 03:27 53 19 50 06/23/20 03:21 52 06/23/20 01:30 54 20 50 06/23/20 00:42 96.7 100 06/23/20 00:00 Mechanical Ventilator 15.0 06/23/20 00:00 50 06/23/20 00:00 96.7 55 18 118/68 (85) 100 06/22/20 23:47 55 06/22/20 23:14 56 23 50 06/22/20 21:14 54 24 50 06/22/20 20:42 97.1 100 06/22/20 20:00 Mechanical Ventilator 15.0 06/22/20 20:00 50 06/22/20 20:00 55 06/22/20 20:00 97.1 56 18 123/63 (83) 100 06/22/20 19:30 54 27 50 06/22/20 17:10 55 25 50 06/22/20 16:42 90.5 100 06/22/20 16:05 90.9 57 18 128/72 (90) 100 06/22/20 16:00 Mechanical Ventilator 15.0 06/22/20 16:00 55 06/22/20 16:00 55 06/22/20 15:10 55 19 55 06/22/20 13:10 55 21 55 06/22/20 12:42 90.5 95 06/22/20 12:10 55 06/22/20 12:00 55 06/22/20 11:52 Mechanical Ventilator 15.0 06/22/20 11:49 90.5 54 20 116/61 (79) 100 06/22/20 11:00 56 21 55 06/22/20 09:10 56 22 55 06/22/20 08:42 90.5 95 06/22/20 08:00 Mechanical Ventilator 15.0 06/22/20 08:00 53 06/22/20 08:00 90.5 50 20 115/65 (82) 97 06/22/20 08:00 55 06/22/20 07:42 90.5 95 06/22/20 06:47 53 21 55 06/22/20 06:42 94.0 95 06/22/20 05:42 95.0 98 06/22/20 05:28 54 22 55 06/22/20 04:42 93.4 97 06/22/20 04:12 95.0 97 06/22/20 04:00 59 06/22/20 04:00 Mechanical Ventilator 06/22/20 04:00 55 06/22/20 04:00 93.0 65 23 118/67 (84) 97 06/22/20 03:42 95.0 98 06/22/20 03:38 Mechanical Ventilator 06/22/20 03:18 59 26 55 06/22/20 03:12 96.0 98 06/22/20 03:10 57 20 95 06/22/20 01:14 60 22 55 06/22/20 00:00 61 06/22/20 00:00 96.5 65 23 110/70 (83) 100 06/22/20 00:00 55 06/22/20 00:00 Mechanical Ventilator Mechanical Ventilator 06/21/20 23:38 59 25 55 06/21/20 21:46 62 22 55 06/21/20 20:00 62 06/21/20 20:00 Mechanical Ventilator Mechanical Ventilator 06/21/20 20:00 95.0 63 23 121/76 (91) 99 06/21/20 20:00 55 06/21/20 19:36 65 25 55 06/21/20 17:00 66 22 55 06/21/20 16:00 65 06/21/20 16:00 55 06/21/20 16:00 96.0 65 23 114/72 (86) 99 06/21/20 16:00 Mechanical Ventilator Mechanical Ventilator 06/21/20 15:00 63 22 55 06/21/20 13:12 67 22 55 06/21/20 12:00 96.4 80 18 128/95 (106) 97 06/21/20 12:00 55 06/21/20 12:00 Mechanical Ventilator Mechanical Ventilator 06/21/20 12:00 73 06/21/20 11:00 69 19 55 06/21/20 10:18 Trach Collar 55.0 06/21/20 09:00 64 22 55 06/21/20 08:00 55 06/21/20 08:00 96.8 63 20 123/73 (90) 96 06/21/20 08:00 55 06/21/20 08:00 Mechanical Ventilator Mechanical Ventilator 06/21/20 07:52 63 06/21/20 07:52 63 06/21/20 07:10 63 23 55 Intake and Output 06/22/20 06/23/20 19:00 07:00 Intake Total 890 ml 540 ml Output Total 100 ml Balance 790 ml 540 ml Free Water 100 ml 100 ml Tube Feeding 440 ml 440 ml Blood Product 250 ml Other 100 ml Output Urine Total 100 ml # Bowel Movements 3 Labs Test 06/20/20 11:51 06/20/20 18:26 06/21/20 00:19 06/21/20 03:45 POC Whole Blood Glucose 170 MG/DL (74-106) 150 MG/DL (74-106) 115 MG/DL (74-106) Sodium Level 139 MMOL/L (136-145) Potassium Level 3.8 MMOL/L (3.5-5.1) Chloride Level 103 MMOL/L (98-107) Carbon Dioxide Level 33 MMOL/L (21-32) Anion Gap 3 mmol/L (5-15) Blood Urea Nitrogen 90 mg/dL (7-18) Creatinine 4.3 MG/DL (0.55-1.30) Estimat Glomerular Filtration Rate 17.6 mL/min (>60) Glucose Level 135 MG/DL (74-106) Uric Acid 7.7 MG/DL (2.6-7.2) Calcium Level 8.0 MG/DL (8.5-10.1) Phosphorus Level 4.4 MG/DL (2.5-4.9) Magnesium Level 2.8 MG/DL (1.8-2.4) Total Bilirubin 0.3 MG/DL (0.2-1.0) Gamma Glutamyl Transpeptidase 162 U/L (5-85) Aspartate Amino Transf (AST/SGOT) 661 U/L (15-37) Alanine Aminotransferase (ALT/SGPT) 553 U/L (12-78) Alkaline Phosphatase 918 U/L (46-116) C-Reactive Protein, Quantitative 10.1 mg/dL (0.00-0.90) Total Protein 7.4 G/DL (6.4-8.2) Albumin 1.5 G/DL (3.4-5.0) Globulin 5.9 g/dL Albumin/Globulin Ratio 0.3 (1.0-2.7) Thyroid Stimulating Hormone (TSH) 7.385 uiU/mL (0.358-3.740) Cortisol AM Sample 17.5 UG/DL Random Vancomycin Level 25.6 ug/mL Test 06/21/20 04:00 06/21/20 05:31 06/21/20 12:57 06/21/20 17:08 White Blood Count 11.9 K/UL (4.8-10.8) Red Blood Count 2.71 M/UL (4.70-6.10) Hemoglobin 7.7 G/DL (14.2-18.0) Hematocrit 26.2 % (42.0-52.0) Mean Corpuscular Volume 97 FL (80-99) Mean Corpuscular Hemoglobin 28.2 PG (27.0-31.0) Mean Corpuscular Hemoglobin Concent 29.2 G/DL (32.0-36.0) Red Cell Distribution Width 16.2 % (11.6-14.8) Platelet Count 244 K/UL (150-450) Mean Platelet Volume 8.4 FL (6.5-10.1) Neutrophils (%) (Auto) % (45.0-75.0) Lymphocytes (%) (Auto) % (20.0-45.0) Monocytes (%) (Auto) % (1.0-10.0) Eosinophils (%) (Auto) % (0.0-3.0) Basophils (%) (Auto) % (0.0-2.0) Differential Total Cells Counted 100 Neutrophils % (Manual) 78 % (45-75) Lymphocytes % (Manual) 10 % (20-45) Monocytes % (Manual) 5 % (1-10) Eosinophils % (Manual) 6 % (0-3) Basophils % (Manual) 0 % (0-2) Band Neutrophils 1 % (0-8) Nucleated Red Blood Cells 3 /100 WBC Platelet Estimate Adequate Platelet Morphology Normal Hypochromasia 2+ Anisocytosis 1+ POC Whole Blood Glucose 143 MG/DL (74-106) 153 MG/DL (74-106) Test 06/21/20 23:33 06/22/20 04:06 06/22/20 05:24 06/22/20 11:59 POC Whole Blood Glucose 180 MG/DL (74-106) 144 MG/DL (74-106) 143 MG/DL (74-106) White Blood Count 9.4 K/UL (4.8-10.8) Red Blood Count 2.59 M/UL (4.70-6.10) Hemoglobin 7.5 G/DL (14.2-18.0) Hematocrit 25.2 % (42.0-52.0) Mean Corpuscular Volume 97 FL (80-99) Mean Corpuscular Hemoglobin 28.9 PG (27.0-31.0) Mean Corpuscular Hemoglobin Concent 29.7 G/DL (32.0-36.0) Red Cell Distribution Width 16.4 % (11.6-14.8) Platelet Count 207 K/UL (150-450) Mean Platelet Volume 8.8 FL (6.5-10.1) Neutrophils (%) (Auto) % (45.0-75.0) Lymphocytes (%) (Auto) % (20.0-45.0) Monocytes (%) (Auto) % (1.0-10.0) Eosinophils (%) (Auto) % (0.0-3.0) Basophils (%) (Auto) % (0.0-2.0) Differential Total Cells Counted 100 Neutrophils % (Manual) 79 % (45-75) Lymphocytes % (Manual) 10 % (20-45) Monocytes % (Manual) 6 % (1-10) Eosinophils % (Manual) 5 % (0-3) Basophils % (Manual) 0 % (0-2) Band Neutrophils 0 % (0-8) Platelet Estimate Adequate Platelet Morphology Normal Hypochromasia 1+ Anisocytosis 1+ Sodium Level 138 MMOL/L (136-145) Potassium Level 4.4 MMOL/L (3.5-5.1) Chloride Level 103 MMOL/L (98-107) Carbon Dioxide Level 30 MMOL/L (21-32) Anion Gap 5 mmol/L (5-15) Blood Urea Nitrogen 72 mg/dL (7-18) Creatinine 3.6 MG/DL (0.55-1.30) Estimat Glomerular Filtration Rate 21.6 mL/min (>60) Glucose Level 164 MG/DL (74-106) Uric Acid 6.0 MG/DL (2.6-7.2) Calcium Level 8.5 MG/DL (8.5-10.1) Phosphorus Level 3.8 MG/DL (2.5-4.9) Magnesium Level 2.9 MG/DL (1.8-2.4) Total Bilirubin 0.4 MG/DL (0.2-1.0) Aspartate Amino Transf (AST/SGOT) 1518 U/L (15-37) Alanine Aminotransferase (ALT/SGPT) 833 U/L (12-78) Alkaline Phosphatase 1091 U/L (46-116) C-Reactive Protein, Quantitative 9.0 mg/dL (0.00-0.90) Pro-B-Type Natriuretic Peptide > 50981 pg/mL (0-125) Total Protein 7.3 G/DL (6.4-8.2) Albumin 1.6 G/DL (3.4-5.0) Globulin 5.7 g/dL Albumin/Globulin Ratio 0.3 (1.0-2.7) Test 06/22/20 16:54 06/22/20 23:23 06/23/20 04:11 06/23/20 05:11 POC Whole Blood Glucose 160 MG/DL (74-106) 147 MG/DL (74-106) 179 MG/DL (74-106) White Blood Count 9.5 K/UL (4.8-10.8) Red Blood Count 2.89 M/UL (4.70-6.10) Hemoglobin 8.4 G/DL (14.2-18.0) Hematocrit 27.9 % (42.0-52.0) Mean Corpuscular Volume 97 FL (80-99) Mean Corpuscular Hemoglobin 29.2 PG (27.0-31.0) Mean Corpuscular Hemoglobin Concent 30.2 G/DL (32.0-36.0) Red Cell Distribution Width 16.3 % (11.6-14.8) Platelet Count 199 K/UL (150-450) Mean Platelet Volume 9.4 FL (6.5-10.1) Neutrophils (%) (Auto) 74.8 % (45.0-75.0) Lymphocytes (%) (Auto) 10.2 % (20.0-45.0) Monocytes (%) (Auto) 9.4 % (1.0-10.0) Eosinophils (%) (Auto) 5.2 % (0.0-3.0) Basophils (%) (Auto) 0.4 % (0.0-2.0) Sodium Level 138 MMOL/L (136-145) Potassium Level 3.8 MMOL/L (3.5-5.1) Chloride Level 103 MMOL/L (98-107) Carbon Dioxide Level 32 MMOL/L (21-32) Anion Gap 3 mmol/L (5-15) Blood Urea Nitrogen 77 mg/dL (7-18) Creatinine 4.3 MG/DL (0.55-1.30) Estimat Glomerular Filtration Rate 17.6 mL/min (>60) Glucose Level 184 MG/DL (74-106) Uric Acid 6.1 MG/DL (2.6-7.2) Calcium Level 8.7 MG/DL (8.5-10.1) Phosphorus Level 3.5 MG/DL (2.5-4.9) Magnesium Level 2.8 MG/DL (1.8-2.4) Total Bilirubin 0.4 MG/DL (0.2-1.0) Gamma Glutamyl Transpeptidase 163 U/L (5-85) Aspartate Amino Transf (AST/SGOT) 1776 U/L (15-37) Alanine Aminotransferase (ALT/SGPT) 1006 U/L (12-78) Alkaline Phosphatase 1085 U/L (46-116) Total Creatine Kinase 88 U/L (26-308) C-Reactive Protein, Quantitative 7.9 mg/dL (0.00-0.90) Pro-B-Type Natriuretic Peptide > 75793 pg/mL (0-125) Total Protein 7.5 G/DL (6.4-8.2) Albumin 1.6 G/DL (3.4-5.0) Globulin 5.9 g/dL Albumin/Globulin Ratio 0.3 (1.0-2.7) Lipase 385 U/L (73-393) Height (Feet): 5 Height (Inches): 8.00 Weight (Pounds): 143 Objective PHYSICAL EXAMINATION: VITAL SIGNS: reviewed HEAD AND NECK: Show status post tracheostomy. vent+ LUNGS: Coarse rhonchi and basilar rales. CARDIOVASCULAR: Shows irregular S1 and S2 with no gallop. ABDOMEN: Soft. Status post G-tube. EXTREMITIES: No pitting edema.++Left Jose Epperson MD Jun 23, 2020 06:59
--- NOTE | 2020-06-23 07:15 | NUR ---
NURSE HAND-OFF REPORT: Important Events on Shift: hematuria x 1, swollen penis. flush Fc 100cc q6 x 24 hrs then flush 100cc PRN Patient Status: stable Diet: nephro at 40cc/hr Pending Orders: n Pending Results/Labs:bmp Pending MD notification:n Latest Vital Signs: Temperature 96.8 , Pulse 53 , B/P 101 /77 , Respiratory Rate 19 , O2 SAT 100 , Mechanical Ventilator, O2 Flow Rate 15.0 . Vital Sign Comment: n EKG Rhythm: Sinus Rhythm Rhythm change?: N MD Notified?: Y -Dr. Ruel BENDER Response: No New Orders Received Latest Santiago Fall Score: Fall Risk: Safety Measures: Call light Within Reach, Bed Alarm Zone 2, Side Rails Side Rails x3, Bed position Low and Locked. Fall Precautions: Yellow Socks Yellow Gown Door Sign Patient Fall Education Report given to Varun Hurst, RN/ [place] rN. Endorsed to ask Dr Apple for Uro consult per Dr nielsen.
--- NOTE | 2020-06-23 07:25 | NUR ---
NURSE NOTES: Received patient from [facility]. Patient is in bed with restraints on bilateral arms. Alert and oriented x3. Patient is sinus rhythm on the monitor. Patient is on the vent with prescribed settings, tolerating well. Patient has a Gtube and tube feeding at prescribed rate, tolerating well. cabrera catheter is patent and draining to gravity. Bed to lowest position and locked, call light with in easy reach, side rails up x2. Will continue plan of care.
--- NOTE | 2020-06-23 08:43 | NUR ---
NURSE NOTES: Called [facility] and spoke with Remy. Notified Remy that patient has hemodialysis order today, 06/23/2020, per Dr. Honeycutt. Remy acknowledged and informed this nurse they will notify dialysis nurse. Noted. Noted in dialysis notification intervention. Will continue to monitor patient.
[2020-06-23] MEDS: Levofloxacin 500mg tab GT SCH (08:44)
[2020-06-23] MEDS: Ascorbic Acid 500mg tab ORAL SCH (08:45)
[2020-06-23] MEDS: Pantoprazole Inj IVP SCH ×2 (08:45→20:52)
--- NOTE | 2020-06-23 09:39 | Nephrology Progress Note ---
Assessment/Plan Problem List: (1) KERRI (acute kidney injury) (2) Acute respiratory failure (3) Chronic respiratory failure (4) Anemia (5) Hyperkalemia Assessment Acute on chronic renal failure Anemia Respiratory failure acute on chronic Respiratory acidosis and hypoxia Hyperkalemia Plan June 23: Patient will be dialyzed today again. Labs reviewed. Serum creatinine higher. Elevated liver enzymes persist. Patient full code. Continue per consultants. June 22: Patient dialyzed yesterday. Labs reviewed. Liver function tests and enzymes are elevated. Continue to monitor renal parameters and LFTs. Continue per consultants. Patient full code. June 21: Patient due for dialysis today. Labs and medication list reviewed. Discussed with RN. Continue to monitor renal parameters. June 20: Patient had an episode of bradycardia last night. Serum creatinine rising. Patient continues to have respiratory acidosis. Discussed with MAX Bond. Will order non tunneled dialysis catheter placement for initiation of dialysis treatment due to acute renal failure. Patient remains full code. I favor comfort care if bioethics consultation is sought and physicians on the team agreeable. June 19: No CHEM panel today. Low hemoglobin as of yesterday's lab results. Anemia management per Dr. Cueva. Continue to monitor renal parameters. June 18: Labs are reviewed. Hemoglobin lower. Creatinine higher. ABG not done yet. Patient full code. Continue per consultants. June 17: Labs reviewed. Hemoglobin low. Creatinine up to 3. Phosphorus levels elevated. Will start Amphojel via GT tube as a phosphorus binder. Monitor renal parameters. Check ABG. Continue per consultants. June 16: Labs reviewed. Serum creatinine mariana to 2.6. Abnormal electrolytes now normalized. Continue to monitor renal parameters and avoid nephrotoxic's. Continue to adjust pulmonary status as possible. June 15: ABG pH of 7.1. 2D echo suggestive of ejection fraction of 50%. Labs reviewed. Serum creatinine mariana. Will hold IV Lasix. Will give Kayexalate for high potassium and 1 amp of sodium bicarb. Albumin IV bolus given. Continue per consultants. Continue to monitor renal parameters. Kidney ultrasound ordered. June 14: As follow Pulmonary evaluation Sparrow catheter Hold IV fluid IV fluid, until 2D echo results available Kayexalate for high potassium IV Protonix 2D echocardiogram Anemia work-up More labs ordered Subjective ROS Limited/Unobtainable: Yes Objective Objective Last 24 Hour Vital Signs Date Time Temp Pulse Resp B/P (MAP) Pulse Ox O2 Delivery O2 Flow Rate FiO2 06/23/20 08:00 50 06/23/20 08:00 96.5 58 18 132/75 (94) 100 06/23/20 05:29 53 19 50 06/23/20 04:00 96.8 77 18 101/77 (85) 100 06/23/20 04:00 50 06/23/20 04:00 Mechanical Ventilator 15.0 06/23/20 03:27 53 19 50 06/23/20 03:21 52 06/23/20 01:30 54 20 50 06/23/20 00:42 96.7 100 06/23/20 00:00 Mechanical Ventilator 15.0 06/23/20 00:00 50 06/23/20 00:00 96.7 55 18 118/68 (85) 100 06/22/20 23:47 55 06/22/20 23:14 56 23 50 06/22/20 21:14 54 24 50 06/22/20 20:42 97.1 100 06/22/20 20:00 Mechanical Ventilator 15.0 06/22/20 20:00 50 06/22/20 20:00 55 06/22/20 20:00 97.1 56 18 123/63 (83) 100 06/22/20 19:30 54 27 50 06/22/20 17:10 55 25 50 06/22/20 16:42 90.5 100 06/22/20 16:05 90.9 57 18 128/72 (90) 100 06/22/20 16:00 Mechanical Ventilator 15.0 06/22/20 16:00 55 06/22/20 16:00 55 06/22/20 15:10 55 19 55 06/22/20 13:10 55 21 55 06/22/20 12:42 90.5 95 06/22/20 12:10 55 06/22/20 12:00 55 06/22/20 11:52 Mechanical Ventilator 15.0 06/22/20 11:49 90.5 54 20 116/61 (79) 100 06/22/20 11:00 56 21 55 Intake and Output 06/22/20 06/23/20 19:00 07:00 Intake Total 890 ml 580 ml Output Total 100 ml 300 ml Balance 790 ml 280 ml Free Water 100 ml 100 ml Tube Feeding 440 ml 480 ml Blood Product 250 ml Other 100 ml Output Urine Total 100 ml 300 ml # Bowel Movements 3 2 Laboratory Tests 06/22/20 11:59: POC Whole Blood Glucose 143H 06/22/20 16:54: POC Whole Blood Glucose 160H 06/22/20 23:23: POC Whole Blood Glucose 147H 06/23/20 04:11: White Blood Count 9.5, Red Blood Count 2.89L, Hemoglobin 8.4L, Hematocrit 27.9L, Mean Corpuscular Volume 97, Mean Corpuscular Hemoglobin 29.2, Mean Corpuscular Hemoglobin Concent 30.2L, Red Cell Distribution Width 16.3H, Platelet Count 199, Mean Platelet Volume 9.4, Neutrophils (%) (Auto) 74.8, Lymphocytes (%) (Auto) 10.2L, Monocytes (%) (Auto) 9.4, Eosinophils (%) (Auto) 5.2H, Basophils (%) (Auto) 0.4, Sodium Level 138, Potassium Level 3.8, Chloride Level 103, Carbon Dioxide Level 32, Anion Gap 3L, Blood Urea Nitrogen 77H, Creatinine 4.3H, Estimat Glomerular Filtration Rate 17.6, Glucose Level 184H, Uric Acid 6.1, Calcium Level 8.7, Phosphorus Level 3.5, Magnesium Level 2.8H, Total Bilirubin 0.4, Gamma Glutamyl Transpeptidase 163H, Aspartate Amino Transf (AST/SGOT) 1776H , Alanine Aminotransferase (ALT/SGPT) 1006H, Alkaline Phosphatase 1085H, Total Creatine Kinase 88, C-Reactive Protein, Quantitative 7.9H, Pro-B-Type Natr iuretic Peptide > 63871E, Total Protein 7.5, Albumin 1.6L, Globulin 5.9, Albumin/Globulin Ratio 0.3L, Lipase 385, Hepatitis B Surface Antigen [Pending] 06/23/20 05:11: POC Whole Blood Glucose 179H Height (Feet): 5 Height (Inches): 8.00 Weight (Pounds): 143 General Appearance: no apparent distress EENT: other - On mechanical ventilation Cardiovascular: bradycardia Respiratory/Chest: decreased breath sounds Abdomen: distended Leonidas Honeycutt MD Jun 23, 2020 09:39
--- NOTE | 2020-06-23 09:45 | NUR ---
NURSE NOTES: Dr. Garcia seen and examined patient at bedside. Per Dr. Garcia okay to titrate FiO2 to 40% after hemodialysis. Current vent settings: AC 16, tidal volume 500, FiO2 50%, PEEP 5. Noted. Will continue to monitor patient.
--- NOTE | 2020-06-23 09:58 | NUR ---
NURSE NOTES: Dr. Mcguire at nurse station, made aware that patient's heart rate went as low as 52 bpm, sinus bradycardia last night. Patient is asymptomatic. BP 127/63 HR 57 bpm sinus bradycardia. Will continue to monitor patient.
--- NOTE | 2020-06-23 10:39 | Pulmonology Progress Note ---
Subjective ROS Limited/Unobtainable: Yes Interval Events: Received dialysis yesterday. Remains on vent. Constitutional: Denies: fever HEENT: Repors: no symptoms Respiratory: Reports: no symptoms Cardiovascular: Reports: no symptoms Gastrointestinal/Abdominal: Reports: no symptoms Genitourinary: Reports: no symptoms Allergies: Coded Allergies: No Known Allergies (Unverified , 06/13/20) Objective Last 24 Hour Vital Signs Date Time Temp Pulse Resp B/P (MAP) Pulse Ox O2 Delivery O2 Flow Rate FiO2 06/23/20 09:35 56 26 50 06/23/20 08:00 57 06/23/20 08:00 50 06/23/20 08:00 Mechanical Ventilator 15.0 06/23/20 08:00 96.5 58 18 132/75 (94) 100 06/23/20 06:35 58 26 50 06/23/20 05:29 53 19 50 06/23/20 04:00 96.8 77 18 101/77 (85) 100 06/23/20 04:00 50 06/23/20 04:00 Mechanical Ventilator 15.0 06/23/20 03:27 53 19 50 06/23/20 03:21 52 06/23/20 01:30 54 20 50 06/23/20 00:42 96.7 100 06/23/20 00:00 Mechanical Ventilator 15.0 06/23/20 00:00 50 06/23/20 00:00 96.7 55 18 118/68 (85) 100 06/22/20 23:47 55 06/22/20 23:14 56 23 50 06/22/20 21:14 54 24 50 06/22/20 20:42 97.1 100 06/22/20 20:00 Mechanical Ventilator 15.0 06/22/20 20:00 50 06/22/20 20:00 55 06/22/20 20:00 97.1 56 18 123/63 (83) 100 06/22/20 19:30 54 27 50 06/22/20 17:10 55 25 50 06/22/20 16:42 90.5 100 06/22/20 16:05 90.9 57 18 128/72 (90) 100 06/22/20 16:00 Mechanical Ventilator 15.0 06/22/20 16:00 55 06/22/20 16:00 55 06/22/20 15:10 55 19 55 06/22/20 13:10 55 21 55 06/22/20 12:42 90.5 95 06/22/20 12:10 55 06/22/20 12:00 55 06/22/20 11:52 Mechanical Ventilator 15.0 06/22/20 11:49 90.5 54 20 116/61 (79) 100 06/22/20 11:00 56 21 55 l Intake and Output 06/22/20 06/23/20 19:00 07:00 Intake Total 890 ml 580 ml Output Total 100 ml 300 ml Balance 790 ml 280 ml Free Water 100 ml 100 ml Tube Feeding 440 ml 480 ml Blood Product 250 ml Other 100 ml Output Urine Total 100 ml 300 ml # Bowel Movements 3 2 General Appearance: no acute distress HEENT: status post trach Respiratory: chest wall non-tender, lungs clear Cardiovascular: normal peripheral pulses, normal rate Abdomen: normal bowel sounds Extremities: no cyanosis Laboratory Tests 06/22/20 11:59: POC Whole Blood Glucose 143H 06/22/20 16:54: POC Whole Blood Glucose 160H 06/22/20 23:23: POC Whole Blood Glucose 147H 06/23/20 04:11: White Blood Count 9.5, Red Blood Count 2.89L, Hemoglobin 8.4L, Hematocrit 27.9L, Mean Corpuscular Volume 97, Mean Corpuscular Hemoglobin 29.2, Mean Corpuscular Hemoglobin Concent 30.2L, Red Cell Distribution Width 16.3H, Platelet Count 199, Mean Platelet Volume 9.4, Neutrophils (%) (Auto) 74.8, Lymphocytes (%) (Auto) 10.2L, Monocytes (%) (Auto) 9.4, Eosinophils (%) (Auto) 5.2H, Basophils (%) (Auto) 0.4, Sodium Level 138, Potassium Level 3.8, Chloride Level 103, Carbon Dioxide Level 32, Anion Gap 3L, Blood Urea Nitrogen 77H, Creatinine 4.3H, Estimat Glomerular Filtration Rate 17.6, Glucose Level 184H, Uric Acid 6.1, Calcium Level 8.7, Phosphorus Level 3.5, Magnesium Level 2.8H, Total Bilirubin 0.4, Gamma Glutamyl Transpeptidase 163H, Aspartate Amino Transf (AST/SGOT) 1776H , Alanine Aminotransferase (ALT/SGPT) 1006H, Alkaline Phosphatase 1085H, Total Creatine Kinase 88, C-Reactive Protein, Quantitative 7.9H, Pro-B-Type Natriureti c Peptide > [id number], Total Protein 7.5, Albumin 1.6L, Globulin 5.9, Albumin/Globulin Ratio 0.3L, Lipase 385, Hepatitis B Surface Antigen [Pending] 06/23/20 05:11: POC Whole Blood Glucose 179H Current Medications Medications (Trade) Dose Ordered Sig/Maryjane Route PRN Reason Start Time Stop Time Status Last Admin Dose Admin Acetaminophen (Tylenol) 650 mg Q4H PRN GT Mild Pain (Pain Scale 1-3) 06/18/20 23:00 07/18/20 22:59 Acetaminophen (Tylenol) 650 mg Q4HR PRN GT FEVER 06/14/20 09:45 07/14/20 09:44 06/19/20 20:45 Aluminum Hydroxide (Amphojel) 1,920 mg Q6H GT 06/17/20 10:00 07/17/20 09:59 06/23/20 10:07 Ascorbic Acid (Vitamin C) 500 mg DAILY ORAL 06/16/20 09:00 07/16/20 08:59 06/23/20 08:45 Chlorhexidine Gluconate (Inés-Hex 2%) 1 applic DAILY@1999 TOPIC 06/21/20 20:00 09/19/20 19:59 06/22/20 20:13 Dextrose (Dextrose 50%) 25 ml Q30M PRN IV Hypoglycemia 06/14/20 03:45 09/12/20 03:44 Dextrose (Dextrose 50%) 50 ml Q30M PRN IV Hypoglycemia 06/14/20 03:45 09/12/20 03:44 Epoetin Bonilla (Epoetin Bonilla-EPBX(NON ESRD)) 10,000 unit TUE-TUE-TUE SUBQ 06/18/20 21:00 09/16/20 20:59 06/20/20 21:35 Haloperidol Lactate (Haldol) 5 mg Q6H PRN IM Agitation 06/21/20 23:15 08/05/20 23:14 06/23/20 00:23 Levofloxacin (Levaquin) 500 mg Q48H GT 06/21/20 09:00 06/28/20 08:59 11/16/20 08:44 Linezolid (Zyvox) 600 mg EVERY 12 HOURS GT 06/19/20 21:00 06/24/20 20:59 06/23/20 08:45 Meropenem 500 mg/ Sodium Chloride 55 ml @ 110 mls/hr Q24H IVPB 06/21/20 18:00 06/26/20 17:59 06/22/20 18:04 Pantoprazole (Protonix) 40 mg EVERY 12 HOURS IVP 06/14/20 11:45 07/14/20 11:44 06/23/20 08:45 Assessment/Plan Problems: (1) Acute respiratory failure Assessment/Plan IMPRESSION: 1. Chronic respiratory failure. 2. Hypoxemia. 3. Respiratory acidosis. 4. Anemia. 5. Leukocytosis. 6. DVT 7. S/p code blue 06/19/20 DISCUSSION: The patient's x-ray is markedly abnormal with bilateral infiltrates. I suspect he has pulmonary fibrosis. Latest CXR is unchanged COVID 19 pcr and antigen both negative No anticoagulation for DVT due to anemia S/p IVC filter placement Continue assist-control mechanical ventilation; currently FiO2 reduced to 50%; SaO2 100%, broad-spectrum antibiotics. Transfusion as needed. Will decrease PEEP to 5; S/p HD WIll decrease FiO2 as tolerated I will follow carefully. Hugo Carl Omar Syed MD Jun 23, 2020 10:39
--- NOTE | 2020-06-23 11:15 | NUR ---
NURSE NOTES: Benjamin, dialysis nurse at nurse station, per Benjamin RN informed this nurse they will perform Hemodialysis at afternoon today. Noted. Will continue to monitor patient.
--- NOTE | 2020-06-23 11:29 | Cardiac Electrophysiology PN ---
Assessment/Plan Assessment/Plan 1. Vent-dependent respirator failure. S/P tracheostomy. Chest x-ray extensive bilateral pneumonia or ARDS. Off isolation EF 50%. Ruled out for [place]. BNP 69903. On iv Abx 2. Tachycardia, likely due to respiratory failure. 3. Right femoral vein DVT. S/P IVC filter 06/18 4. Dysphagia, status post PEG placement. 5. Renal failure. S/P Right IJ Iron and HD by Dr. Honeycutt. 6. Severe anemia, S/P PRBC DW RN Subjective Subjective On the Vent off isolation. On 55% Fio2 and PEEP. S/P IVC filter . S/P 1 unit PRBC again yesterday S/P Right IJ Iron and first HD 06/21/20 Was found on the floor yesterday and now in restraints HD pending today Objective Last 24 Hour Vital Signs Date Time Temp Pulse Resp B/P (MAP) Pulse Ox O2 Delivery O2 Flow Rate FiO2 06/23/20 09:35 56 26 50 06/23/20 08:00 57 06/23/20 08:00 50 06/23/20 08:00 Mechanical Ventilator 15.0 06/23/20 08:00 96.5 58 18 132/75 (94) 100 06/23/20 06:35 58 26 50 06/23/20 05:29 53 19 50 06/23/20 04:00 96.8 77 18 101/77 (85) 100 06/23/20 04:00 50 06/23/20 04:00 Mechanical Ventilator 15.0 06/23/20 03:27 53 19 50 06/23/20 03:21 52 06/23/20 01:30 54 20 50 06/23/20 00:42 96.7 100 06/23/20 00:00 Mechanical Ventilator 15.0 06/23/20 00:00 50 06/23/20 00:00 96.7 55 18 118/68 (85) 100 06/22/20 23:47 55 06/22/20 23:14 56 23 50 06/22/20 21:14 54 24 50 06/22/20 20:42 97.1 100 06/22/20 20:00 Mechanical Ventilator 15.0 06/22/20 20:00 50 06/22/20 20:00 55 06/22/20 20:00 97.1 56 18 123/63 (83) 100 06/22/20 19:30 54 27 50 06/22/20 17:10 55 25 50 06/22/20 16:42 90.5 100 06/22/20 16:05 90.9 57 18 128/72 (90) 100 06/22/20 16:00 Mechanical Ventilator 15.0 06/22/20 16:00 55 06/22/20 16:00 55 06/22/20 15:10 55 19 55 06/22/20 13:10 55 21 55 06/22/20 12:42 90.5 95 06/22/20 12:10 55 06/22/20 12:00 55 06/22/20 11:52 Mechanical Ventilator 15.0 06/22/20 11:49 90.5 54 20 116/61 (79) 100 Intake and Output 06/22/20 06/23/20 19:00 07:00 Intake Total 890 ml 580 ml Output Total 100 ml 300 ml Balance 790 ml 280 ml Free Water 100 ml 100 ml Tube Feeding 440 ml 480 ml Blood Product 250 ml Other 100 ml Output Urine Total 100 ml 300 ml # Bowel Movements 3 2 Laboratory Tests Test 06/22/20 11:59 06/22/20 16:54 06/22/20 23:23 06/23/20 04:11 POC Whole Blood Glucose 143 MG/DL (74-106) H 160 MG/DL (74-106) H 147 MG/DL (74-106) H White Blood Count 9.5 K/UL (4.8-10.8) Red Blood Count 2.89 M/UL (4.70-6.10) L Hemoglobin 8.4 G/DL (14.2-18.0) L Hematocrit 27.9 % (42.0-52.0) L Mean Corpuscular Volume 97 FL (80-99) Mean Corpuscular Hemoglobin 29.2 PG (27.0-31.0) Mean Corpuscular Hemoglobin Concent 30.2 G/DL (32.0-36.0) L Red Cell Distribution Width 16.3 % (11.6-14.8) H Platelet Count 199 K/UL (150-450) Mean Platelet Volume 9.4 FL (6.5-10.1) Neutrophils (%) (Auto) 74.8 % (45.0-75.0) Lymphocytes (%) (Auto) 10.2 % (20.0-45.0) L Monocytes (%) (Auto) 9.4 % (1.0-10.0) Eosinophils (%) (Auto) 5.2 % (0.0-3.0) H Basophils (%) (Auto) 0.4 % (0.0-2.0) Sodium Level 138 MMOL/L (136-145) Potassium Level 3.8 MMOL/L (3.5-5.1) Chloride Level 103 MMOL/L (98-107) Carbon Dioxide Level 32 MMOL/L (21-32) Anion Gap 3 mmol/L (5-15) L Blood Urea Nitrogen 77 mg/dL (7-18) H Creatinine 4.3 MG/DL (0.55-1.30) H Estimat Glomerular Filtration Rate 17.6 mL/min (>60) Glucose Level 184 MG/DL (74-106) H Uric Acid 6.1 MG/DL (2.6-7.2) Calcium Level 8.7 MG/DL (8.5-10.1) Phosphorus Level 3.5 MG/DL (2.5-4.9) Magnesium Level 2.8 MG/DL (1.8-2.4) H Total Bilirubin 0.4 MG/DL (0.2-1.0) Gamma Glutamyl Transpeptidase 163 U/L (5-85) H Aspartate Amino Transf (AST/SGOT) 1776 U/L (15-37) H Alanine Aminotransferase (ALT/SGPT) 1006 U/L (12-78) H Alkaline Phosphatase 1085 U/L (46-116) H Total Creatine Kinase 88 U/L (26-308) C-Reactive Protein, Quantitative 7.9 mg/dL (0.00-0.90) H Pro-B-Type Natriuretic Peptide > 13875 pg/mL (0-125) H Total Protein 7.5 G/DL (6.4-8.2) Albumin 1.6 G/DL (3.4-5.0) L Globulin 5.9 g/dL Albumin/Globulin Ratio 0.3 (1.0-2.7) L Lipase 385 U/L (73-393) Hepatitis B Surface Antigen Pending Test 06/23/20 05:11 POC Whole Blood Glucose 179 MG/DL (74-106) H Objective HEAD AND NECK: Status post tracheostomy.Right IJ Iron in place LUNGS: Coarse rhonchi and basilar rales. CARDIOVASCULAR: Shows irregular S1 and S2 with no gallop. ABDOMEN: Soft. Status post G-tube. EXTREMITIES: No pitting edema. Lance Mcguire MD Jun 23, 2020 11:29
--- NOTE | 2020-06-23 11:35 | NUR ---
NURSE NOTES: Patient noted with 7 beats of V-tach, returned to sinus bradycardia 57 bpm, asymptomatic, BP 129/70. Sodium level 138, potassium 3.8, chloride 103, and magnesium level 2.8. Patient will have dialysis today. Performed 12-lead EKG and per EKG patient is sinus bradycardia HR 57 bpm. Contacted and informed. Dr. Mcguire of assessments. Dr. Mcguire acknowledged and gave no new orders at this time. Will continue to monitor patient.
--- NOTE | 2020-06-23 12:00 | NUR ---
NURSE NOTES: Patient was noted with red tinged urine earlier, urine is now noted yellow. Dr. Tan recommended urology consult. This nurse contacted and informed Dr. Apple of assessments, per Dr. Apple no urology consult at this time as that urine is now yellow. Noted. Will continue to monitor patient.
--- NOTE | 2020-06-23 13:43 | Infectious Diseases Prog Note ---
Assessment/Plan Assessment/Plan IMPRESSION: Pneumonia with Pseudomonas & Stenotrophomonas Hypothermia COVID19 X 2: negative Ventilator-dependent respiratory failure, Diabetes mellitus type 2, Hypertension, History of left BKA, Hypertension, anemia, Major depression, Pressure ulcer, Elevated transaminase, Hyperkalemia. Anemia R leg DVT s/p IVC filter Sacral osteomyelitis Severe anemia Acute renal failure ESRD Hypercapnic respiratory failure RECOMMENDATION: Continue meropenem & Levaquin Continue Linezolid until 07/18 Check TSH, T4 in am Case was D/W RN Subjective ROS Limited/Unobtainable: Yes Constitutional: Denies: fever Neurologic: Reports: confusion, other - on restraint Allergies: Coded Allergies: No Known Allergies (Unverified , 06/13/20) Objective Last 24 Hour Vital Signs Date Time Temp Pulse Resp B/P (MAP) Pulse Ox O2 Delivery O2 Flow Rate FiO2 06/23/20 12:00 50 06/23/20 12:00 Mechanical Ventilator 15.0 06/23/20 12:00 97.3 55 21 128/72 (90) 97 06/23/20 12:00 55 06/23/20 10:50 60 25 50 06/23/20 09:35 56 26 50 06/23/20 08:00 57 06/23/20 08:00 50 06/23/20 08:00 Mechanical Ventilator 15.0 06/23/20 08:00 96.5 58 18 132/75 (94) 100 06/23/20 06:35 58 26 50 06/23/20 05:29 53 19 50 06/23/20 04:00 96.8 77 18 101/77 (85) 100 06/23/20 04:00 50 06/23/20 04:00 Mechanical Ventilator 15.0 06/23/20 03:27 53 19 50 06/23/20 03:21 52 06/23/20 01:30 54 20 50 06/23/20 00:42 96.7 100 06/23/20 00:00 Mechanical Ventilator 15.0 06/23/20 00:00 50 06/23/20 00:00 96.7 55 18 118/68 (85) 100 06/22/20 23:47 55 06/22/20 23:14 56 23 50 06/22/20 21:14 54 24 50 06/22/20 20:42 97.1 100 06/22/20 20:00 Mechanical Ventilator 15.0 06/22/20 20:00 50 06/22/20 20:00 55 06/22/20 20:00 97.1 56 18 123/63 (83) 100 06/22/20 19:30 54 27 50 06/22/20 17:10 55 25 50 06/22/20 16:42 90.5 100 06/22/20 16:05 90.9 57 18 128/72 (90) 100 06/22/20 16:00 Mechanical Ventilator 15.0 06/22/20 16:00 55 06/22/20 16:00 55 06/22/20 15:10 55 19 55 Height (Feet): 5 Height (Inches): 8.00 Weight (Pounds): 143 HEENT: mucous membranes moist, status post trach Respiratory/Chest: lungs clear, other Cardiovascular: normal rate Abdomen: soft, non tender, other - GT feeding Extremities: no edema, other - Left BKA Skin: ulcers, other - sacral wound dehisence Neurologic/Psychiatric: alert, responsive Laboratory Tests Test 06/22/20 16:54 06/22/20 23:23 06/23/20 04:11 06/23/20 05:11 POC Whole Blood Glucose 160 MG/DL (74-106) H 147 MG/DL (74-106) H 179 MG/DL (74-106) H White Blood Count 9.5 K/UL (4.8-10.8) Red Blood Count 2.89 M/UL (4.70-6.10) L Hemoglobin 8.4 G/DL (14.2-18.0) L Hematocrit 27.9 % (42.0-52.0) L Mean Corpuscular Volume 97 FL (80-99) Mean Corpuscular Hemoglobin 29.2 PG (27.0-31.0) Mean Corpuscular Hemoglobin Concent 30.2 G/DL (32.0-36.0) L Red Cell Distribution Width 16.3 % (11.6-14.8) H Platelet Count 199 K/UL (150-450) Mean Platelet Volume 9.4 FL (6.5-10.1) Neutrophils (%) (Auto) 74.8 % (45.0-75.0) Lymphocytes (%) (Auto) 10.2 % (20.0-45.0) L Monocytes (%) (Auto) 9.4 % (1.0-10.0) Eosinophils (%) (Auto) 5.2 % (0.0-3.0) H Basophils (%) (Auto) 0.4 % (0.0-2.0) Sodium Level 138 MMOL/L (136-145) Potassium Level 3.8 MMOL/L (3.5-5.1) Chloride Level 103 MMOL/L (98-107) Carbon Dioxide Level 32 MMOL/L (21-32) Anion Gap 3 mmol/L (5-15) L Blood Urea Nitrogen 77 mg/dL (7-18) H Creatinine 4.3 MG/DL (0.55-1.30) H Estimat Glomerular Filtration Rate 17.6 mL/min (>60) Glucose Level 184 MG/DL (74-106) H Uric Acid 6.1 MG/DL (2.6-7.2) Calcium Level 8.7 MG/DL (8.5-10.1) Phosphorus Level 3.5 MG/DL (2.5-4.9) Magnesium Level 2.8 MG/DL (1.8-2.4) H Total Bilirubin 0.4 MG/DL (0.2-1.0) Gamma Glutamyl Transpeptidase 163 U/L (5-85) H Aspartate Amino Transf (AST/SGOT) 1776 U/L (15-37) H Alanine Aminotransferase (ALT/SGPT) 1006 U/L (12-78) H Alkaline Phosphatase 1085 U/L (46-116) H Total Creatine Kinase 88 U/L (26-308) C-Reactive Protein, Quantitative 7.9 mg/dL (0.00-0.90) H Pro-B-Type Natriuretic Peptide > 09970 pg/mL (0-125) H Total Protein 7.5 G/DL (6.4-8.2) Albumin 1.6 G/DL (3.4-5.0) L Globulin 5.9 g/dL Albumin/Globulin Ratio 0.3 (1.0-2.7) L Lipase 385 U/L (73-393) Hepatitis B Surface Antigen Pending Test 06/23/20 12:15 POC Whole Blood Glucose 191 MG/DL (74-106) H Current Medications Medications (Trade) Dose Ordered Sig/Maryjane Route PRN Reason Start Time Stop Time Status Last Admin Dose Admin Acetaminophen (Tylenol) 650 mg Q4H PRN GT Mild Pain (Pain Scale 1-3) 06/18/20 23:00 07/18/20 22:59 Acetaminophen (Tylenol) 650 mg Q4HR PRN GT FEVER 06/14/20 09:45 07/14/20 09:44 06/19/20 20:45 Aluminum Hydroxide (Amphojel) 1,920 mg Q6H GT 06/17/20 10:00 07/17/20 09:59 06/23/20 10:07 Ascorbic Acid (Vitamin C) 500 mg DAILY ORAL 06/16/20 09:00 07/16/20 08:59 06/23/20 08:45 Chlorhexidine Gluconate (Inés-Hex 2%) 1 applic DAILY@1999 TOPIC 06/21/20 20:00 09/19/20 19:59 06/22/20 20:13 Dextrose (Dextrose 50%) 25 ml Q30M PRN IV Hypoglycemia 06/14/20 03:45 09/12/20 03:44 Dextrose (Dextrose 50%) 50 ml Q30M PRN IV Hypoglycemia 06/14/20 03:45 09/12/20 03:44 Epoetin Bonilla (Epoetin Bonilla-EPBX(NON ESRD)) 10,000 unit TUE-TUE-TUE SUBQ 06/18/20 21:00 09/16/20 20:59 06/20/20 21:35 Haloperidol Lactate (Haldol) 5 mg Q6H PRN IM Agitation 06/21/20 23:15 08/05/20 23:14 06/23/20 00:23 Levofloxacin (Levaquin) 500 mg Q48H GT 06/21/20 09:00 06/28/20 08:59 06/23/20 08:44 Linezolid (Zyvox) 600 mg EVERY 12 HOURS GT 06/19/20 21:00 06/24/20 20:59 06/23/20 08:45 Meropenem 500 mg/ Sodium Chloride 55 ml @ 110 mls/hr Q24H IVPB 06/21/20 18:00 06/26/20 17:59 06/22/20 18:04 Pantoprazole (Protonix) 40 mg EVERY 12 HOURS IVP 06/14/20 11:45 07/14/20 11:44 06/23/20 08:45 Paul Amador MD Jun 23, 2020 13:43
--- NOTE | 2020-06-23 14:05 | NUR ---
Social Work This SW received a consult due to POA documents needed. Patient is currently unresponsive; this SW spoke with patients sister, Stephy Cedeño ([phone]) who confirmed she is the decision maker for patient (letter on chart from patient, stating he would like sister to make decisions). This SW suggested an Advance Directive, with notary witnessing patients signing. AD left at bedside, per sister request, who explains she plans to have a notary witness as well. Sister also explains she does not want patient discharged back to [facility], stating "they were not clean, were not properly cleaning patients wounds." Sister is in agreement with placement into any subacute that may have an open bed, but prefers for patient to discharge to the following subacute: [facility] ([phone]).
--- NOTE | 2020-06-23 14:59 | NUR ---
[employer] SI: RESP FAILURE TRACH/VENT DEPENDENT,RENAL FAILURE T. 97.3 HR 55 RR 26 B/P 128/72 AC 16 TV 500 FIO2 50% PEEP 5 BUN 77 CR 4.3 IS: ZYVOX GT LEVAQUIN GT MEROPENEM IV PROTONIX IV HEP PANEL PENDING STEP DOWN STATUS
[2020-06-23] MEDS ORDERED: Aluminum Hydroxide Gel Susp 15ml GT SCH (17:15)
[2020-06-23] MEDS: Meropenem 500mg/NS 55ml IVPB SCH ×2 (17:15)
--- NOTE | 2020-06-23 17:30 | NUR ---
NURSE NOTES: Per Benjamin dialysis nurse, 1,000 ml output from hemodialysis. Noted. Will continue to monitor patient.
--- NOTE | 2020-06-23 18:15 | NUR ---
NURSE NOTES: Patient noted with only 5 ml of urine output per cabrera catheter, patient is on hemodialysis, received dialysis today with 1,000 ml out put today. Left non-urgent message to Dr. Honeycutt. Will endorse accordingly. Noted.
--- NOTE | 2020-06-23 18:55 | Surgery Progress Note ---
Surgery Progress Note Subjective Additional Comments ill appearing no n/v labs noted exam stable Objective Last 24 Hour Vital Signs Date Time Temp Pulse Resp B/P (MAP) Pulse Ox O2 Delivery O2 Flow Rate FiO2 06/23/20 16:35 60 34 50 06/23/20 16:00 Mechanical Ventilator 15.0 06/23/20 16:00 55 06/23/20 16:00 50 06/23/20 15:41 97.1 62 17 131/79 (96) 96 06/23/20 15:05 58 21 50 06/23/20 13:10 60 27 50 06/23/20 12:00 50 06/23/20 12:00 Mechanical Ventilator 15.0 06/23/20 12:00 97.3 55 21 128/72 (90) 97 06/23/20 12:00 55 06/23/20 10:50 60 25 50 06/23/20 09:35 56 26 50 06/23/20 08:00 57 06/23/20 08:00 50 06/23/20 08:00 Mechanical Ventilator 15.0 06/23/20 08:00 96.5 58 18 132/75 (94) 100 06/23/20 06:35 58 26 50 06/23/20 05:29 53 19 50 06/23/20 04:00 96.8 77 18 101/77 (85) 100 06/23/20 04:00 50 06/23/20 04:00 Mechanical Ventilator 15.0 06/23/20 03:27 53 19 50 06/23/20 03:21 52 06/23/20 01:30 54 20 50 06/23/20 00:42 96.7 100 06/23/20 00:00 Mechanical Ventilator 15.0 06/23/20 00:00 50 06/23/20 00:00 96.7 55 18 118/68 (85) 100 06/22/20 23:47 55 06/22/20 23:14 56 23 50 06/22/20 21:14 54 24 50 06/22/20 20:42 97.1 100 06/22/20 20:00 Mechanical Ventilator 15.0 06/22/20 20:00 50 06/22/20 20:00 55 06/22/20 20:00 97.1 56 18 123/63 (83) 100 06/22/20 19:30 54 27 50 I&O Intake and Output 06/22/20 06/23/20 19:00 07:00 Intake Total 890 ml 580 ml Output Total 100 ml 300 ml Balance 790 ml 280 ml Free Water 100 ml 100 ml Tube Feeding 440 ml 480 ml Blood Product 250 ml Other 100 ml Output Urine Total 100 ml 300 ml # Bowel Movements 3 2 Dressing: saturated Cardiovascular: RSR Respiratory: decreased breath sounds Abdomen: soft, non-tender, present bowel sounds Extremities: no tenderness, no cyanosis Laboratory Tests Test 06/22/20 23:23 06/23/20 04:11 06/23/20 05:11 06/23/20 12:15 POC Whole Blood Glucose 147 MG/DL (74-106) H 179 MG/DL (74-106) H 191 MG/DL (74-106) H White Blood Count 9.5 K/UL (4.8-10.8) Red Blood Count 2.89 M/UL (4.70-6.10) L Hemoglobin 8.4 G/DL (14.2-18.0) L Hematocrit 27.9 % (42.0-52.0) L Mean Corpuscular Volume 97 FL (80-99) Mean Corpuscular Hemoglobin 29.2 PG (27.0-31.0) Mean Corpuscular Hemoglobin Concent 30.2 G/DL (32.0-36.0) L Red Cell Distribution Width 16.3 % (11.6-14.8) H Platelet Count 199 K/UL (150-450) Mean Platelet Volume 9.4 FL (6.5-10.1) Neutrophils (%) (Auto) 74.8 % (45.0-75.0) Lymphocytes (%) (Auto) 10.2 % (20.0-45.0) L Monocytes (%) (Auto) 9.4 % (1.0-10.0) Eosinophils (%) (Auto) 5.2 % (0.0-3.0) H Basophils (%) (Auto) 0.4 % (0.0-2.0) Sodium Level 138 MMOL/L (136-145) Potassium Level 3.8 MMOL/L (3.5-5.1) Chloride Level 103 MMOL/L (98-107) Carbon Dioxide Level 32 MMOL/L (21-32) Anion Gap 3 mmol/L (5-15) L Blood Urea Nitrogen 77 mg/dL (7-18) H Creatinine 4.3 MG/DL (0.55-1.30) H Estimat Glomerular Filtration Rate 17.6 mL/min (>60) Glucose Level 184 MG/DL (74-106) H Uric Acid 6.1 MG/DL (2.6-7.2) Calcium Level 8.7 MG/DL (8.5-10.1) Phosphorus Level 3.5 MG/DL (2.5-4.9) Magnesium Level 2.8 MG/DL (1.8-2.4) H Total Bilirubin 0.4 MG/DL (0.2-1.0) Gamma Glutamyl Transpeptidase 163 U/L (5-85) H Aspartate Amino Transf (AST/SGOT) 1776 U/L (15-37) H Alanine Aminotransferase (ALT/SGPT) 1006 U/L (12-78) H Alkaline Phosphatase 1085 U/L (46-116) H Total Creatine Kinase 88 U/L (26-308) C-Reactive Protein, Quantitative 7.9 mg/dL (0.00-0.90) H Pro-B-Type Natriuretic Peptide > 26083 pg/mL (0-125) H Total Protein 7.5 G/DL (6.4-8.2) Albumin 1.6 G/DL (3.4-5.0) L Globulin 5.9 g/dL Albumin/Globulin Ratio 0.3 (1.0-2.7) L Lipase 385 U/L (73-393) Hepatitis B Surface Antigen Pending Test 06/23/20 16:58 POC Whole Blood Glucose 129 MG/DL (74-106) H Plan Problems: (1) Leukocytosis Assessment & Plan: 54-year-old male multiple comorbidities admitted for abnormal chest x-ray potentially pneumonia leukocytosis abnormal labs. Patient identified to have a prior left BKA surgical sutures still in place as well as a surgical sacral wound with sutures in place. Considerations of dehiscence being identified and potential etiology of infection. After evaluation unlikely source of infection though the sacral wound was looked to be dehiscing at the inferior aspect. No acute surgical mention at this time We will discussed care plan with PCP Recommend follow-up with initial surgeon considerations of removal of surgical sutures Care plan initiated worsening lft's US ordered ? shayla (2) Surgical wound dehiscence Assessment & Plan: Patient identified to have a left BKA surgical sutures in place flap looks like it is taken well no signs of infection at this time no signs of seroma hematoma or drainage. Unknown exact length or duration of potential prior left BKA and until then recommend leaving sutures in place as it may be too early though it does look well-healed. If able to obtain prior records we will be happy to remove sutures otherwise will need follow-up with primary surgeon furthermore patient identified to have a surgical wound in the sacral area seems he probably potentially had a stage IV sacral decubitus ulcer that had debridement and primary closure. Fortunately. Sutures are still in place and it looks like the inferior aspect may be slowly dehiscing. There is no significant drainage no foul odor no signs of active infection unknown if bone was palpable prior. Can consider removing surgical sutures but again would recommend obtaining prior records of possible prior to doing so. Also recommend following up with primary surgeon as this may need ongoing continued care. Will follow with recommendations and as information is available. Continue current care plan. Wash wounds daily with normal saline. Apply skin protectant Optifoam dressing. Turn every 2 hours. Offload pressure with pillows and air mattress. Nutritional optimization. (3) History of left below knee amputation (4) Malnutrition Assessment & Plan: DAILY ESTIMATED NEEDS: Needs based on Wound, critical care, underweight/ 55.5kg 25-33 kcals/kg 2646-3746 total kcals 1.25-2 g protein/kg 69-111 g total protein 25-30 mL/kg 6606-7264 total fluid mLs NUTRITION DIAGNOSIS: * Swallowing difficulty R/T respiratory status as evidenced by pt is trach/vent dep, PEG dep, NPO at this time. 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
--- NOTE | 2020-06-23 19:10 | NUR ---
NURSE HAND-OFF REPORT: Important Events on Shift: Patient Status: Stable Diet: Nepro 40 ml/hr Pending Orders: None Pending Results/Labs: Need to collect urinalysis sample, endorsed to second shift supervisor. Pending MD notification:None Latest Vital Signs: Temperature 97.1 , Pulse 72 , B/P 131 /79 , Respiratory Rate 25 , O2 SAT 96 , Mechanical Ventilator, O2 Flow Rate 15.0 . Vital Sign Comment: Stable EKG Rhythm: Sinus Rhythm Rhythm change?: N MD Notified?: Jennifer Lipscomb MD Response: No New Orders Received Latest Santiago Fall Score: 60 Fall Risk: High Risk Safety Measures: Call light Within Reach, Bed Alarm Zone 2, Side Rails Side Rails x3, Bed position Low and Locked. Fall Precautions: Yellow Socks Yellow Gown Door Sign Patient Fall Education Report given to MAX Martel.
--- NOTE | 2020-06-23 19:10 | NUR ---
NURSE NOTES: Receive report from MAX Greer. Pt awake in bed, eyes open, follows commands with occasional not following instructions, afebrile and no respiratory distress noted. trache to vent shiley 8, AC 16, Tidal volume 500, Fi O2 40%, P5 saturating at 100%. On Nephro 40ml/hr via GT infusing well without and sediments and residual. PT tolerating well. With Right IJ non tunneled dialysis catheter intact, asymptomatic. Dressing is clean also. HD 1000ml output. With left Forearm 20g iv line intact, patent and asymptomatic. with Sparrow catheter to urine bag draining well with gerard yellow urine. With both soft wrist restraints .Skin is intact. pulses are palpable. AROM done and pt tolerated well. HOB elevated. needs were attended. Call light within reach. Bed rails are up and wheels are up. Bed alarm is on. continue plan of care.
[2020-06-23] MEDS ORDERED: Tubing IV Blood Pump IV ONE (19:34)
[2020-06-23] MEDS ORDERED: NS 275ml ONE (19:34)
[2020-06-23] MEDS ORDERED: Sterile Water Irrig 1000ml IRRIG ONE (19:34)
[2020-06-23] MEDS: Dyna-Hex 2% Top Sol 2oz TOPIC SCH (20:52)
--- NOTE | 2020-06-23 21:00 | General Progress Note ---
Subjective ROS Limited/Unobtainable: Yes Allergies: Coded Allergies: No Known Allergies (Unverified , 06/13/20) Objective Last 24 Hour Vital Signs Date Time Temp Pulse Resp B/P (MAP) Pulse Ox O2 Delivery O2 Flow Rate FiO2 06/23/20 20:43 67 31 40 06/23/20 20:00 96.4 68 17 133/77 (95) 96 06/23/20 20:00 50 06/23/20 20:00 Mechanical Ventilator 15.0 06/23/20 19:10 75 06/23/20 18:39 72 25 40 06/23/20 16:35 60 34 50 06/23/20 16:00 Mechanical Ventilator 15.0 06/23/20 16:00 55 06/23/20 16:00 50 06/23/20 15:41 97.1 62 17 131/79 (96) 96 06/23/20 15:05 58 21 50 06/23/20 13:10 60 27 50 06/23/20 12:00 50 06/23/20 12:00 Mechanical Ventilator 15.0 06/23/20 12:00 97.3 55 21 128/72 (90) 97 06/23/20 12:00 55 06/23/20 10:50 60 25 50 06/23/20 09:35 56 26 50 06/23/20 08:00 57 06/23/20 08:00 50 06/23/20 08:00 Mechanical Ventilator 15.0 06/23/20 08:00 96.5 58 18 132/75 (94) 100 06/23/20 06:35 58 26 50 06/23/20 05:29 53 19 50 06/23/20 04:00 96.8 77 18 101/77 (85) 100 06/23/20 04:00 50 06/23/20 04:00 Mechanical Ventilator 15.0 06/23/20 03:27 53 19 50 06/23/20 03:21 52 06/23/20 01:30 54 20 50 06/23/20 00:42 96.7 100 06/23/20 00:00 Mechanical Ventilator 15.0 06/23/20 00:00 50 06/23/20 00:00 96.7 55 18 118/68 (85) 100 06/22/20 23:47 55 06/22/20 23:14 56 23 50 06/22/20 21:14 54 24 50 Intake and Output 06/22/20 06/23/20 19:00 07:00 Intake Total 890 ml 580 ml Output Total 100 ml 300 ml Balance 790 ml 280 ml Free Water 100 ml 100 ml Tube Feeding 440 ml 480 ml Blood Product 250 ml Other 100 ml Output Urine Total 100 ml 300 ml # Bowel Movements 3 2 Laboratory Tests 06/22/20 23:23: POC Whole Blood Glucose 147H 06/23/20 04:11: White Blood Count 9.5, Red Blood Count 2.89L, Hemoglobin 8.4L, Hematocrit 27.9L, Mean Corpuscular Volume 97, Mean Corpuscular Hemoglobin 29.2, Mean Corpuscular Hemoglobin Concent 30.2L, Red Cell Distribution Width 16.3H, Platelet Count 199, Mean Platelet Volume 9.4, Neutrophils (%) (Auto) 74.8, Lymphocytes (%) (Auto) 10.2L, Monocytes (%) (Auto) 9.4, Eosinophils (%) (Auto) 5.2H, Basophils (%) (Auto) 0.4, Sodium Level 138, Potassium Level 3.8, Chloride Level 103, Carbon Dioxide Level 32, Anion Gap 3L, Blood Urea Nitrogen 77H, Creatinine 4.3H, Estimat Glomerular Filtration Rate 17.6, Glucose Level 184H, Uric Acid 6.1, Calcium Level 8.7, Phosphorus Level 3.5, Magnesium Level 2.8H, Total Bilirubin 0.4, Gamma Glutamyl Transpeptidase 163H, Aspartate Amino Transf (AST/SGOT) 1776H , Alanine Aminotransferase (ALT/SGPT) 1006H, Alkaline Phosphatase 1085H, Total Creatine Kinase 88, C-Reactive Protein, Quantitative 7.9H, Pro-B-Type Natriuretic Peptide > 33782O, Total Protein 7.5, Albumin 1.6L, Globulin 5.9, Albumin/Globulin Ratio 0.3L, Lipase 385, Hepatitis B Surface Antigen [Pending] 06/23/20 05:11: POC Whole Blood Glucose 179H 06/23/20 12:15: POC Whole Blood Glucose 191H 06/23/20 16:58: POC Whole Blood Glucose 129H Height (Feet): 5 Height (Inches): 8.00 Weight (Pounds): 143 Assessment/Plan Problem List: (1) Anemia ICD Codes: D64.9 - Anemia, unspecified SNOMED: 098336965 (2) KERRI (acute kidney injury) ICD Codes: N17.9 - Acute kidney failure, unspecified SNOMED: 6101174, 73768403 (3) Acute respiratory failure ICD Codes: J96.00 - Acute respiratory failure, unspecified whether with hypoxia or hypercapnia SNOMED: 65363319 Qualifiers: Qualified Codes: J96.02 - Acute respiratory failure with hypercapnia (4) Hyperkalemia ICD Codes: E87.5 - Hyperkalemia SNOMED: 55459331 (5) Abnormal laboratory test result ICD Codes: R89.9 - Unspecified abnormal finding in specimens from other organs, systems and tissues SNOMED: 767529824 (6) Anemia ICD Codes: D64.9 - Anemia, unspecified SNOMED: 968138996 Status: progressing Assessment/Plan: no change reviewed chart and labs and meds afebrile fluid overload sepsis pulm edema arf trach and peg Neida Apple MD Jun 23, 2020 21:00
[2020-06-23] MEDS: Epoetin Alfa-EPBX (NON ESRD)10,000 unit/ml vial SUBQ SCH (21:06)
--- NOTE | 2020-06-23 23:21 | Psychiatric Progress Note ---
Psychiatry Progress Note Psychiatry Progress Note Medications Current Medications Medications (Trade) Dose Ordered Sig/Maryjane Route PRN Reason Start Time Stop Time Status Last Admin Dose Admin Acetaminophen (Tylenol) 650 mg Q4H PRN GT Mild Pain (Pain Scale 1-3) 06/18/20 23:00 07/18/20 22:59 Acetaminophen (Tylenol) 650 mg Q4HR PRN GT FEVER 06/14/20 09:45 07/14/20 09:44 06/19/20 20:45 Aluminum Hydroxide (Amphojel) 1,920 mg Q6H GT 06/17/20 10:00 07/17/20 09:59 06/23/20 21:11 Ascorbic Acid (Vitamin C) 500 mg DAILY ORAL 06/16/20 09:00 07/16/20 08:59 06/23/20 08:45 Chlorhexidine Gluconate (Inés-Hex 2%) 1 applic DAILY@2000 TOPIC 06/21/20 20:00 09/19/20 19:59 06/23/20 20:52 Dextrose (Dextrose 50%) 25 ml Q30M PRN IV Hypoglycemia 06/14/20 03:45 09/12/20 03:44 Dextrose (Dextrose 50%) 50 ml Q30M PRN IV Hypoglycemia 06/14/20 03:45 09/12/20 03:44 Epoetin Bonilla (Epoetin Bonilla-EPBX(NON ESRD)) 10,000 unit TUE-TUE-TUE SUBQ 06/18/20 21:00 09/16/20 20:59 06/23/20 21:06 Haloperidol Lactate (Haldol) 5 mg Q6H PRN IM Agitation 06/21/20 23:15 08/05/20 23:14 06/23/20 00:23 Levofloxacin (Levaquin) 500 mg Q48H GT 06/21/20 09:00 06/28/20 08:59 06/23/20 08:44 Linezolid (Zyvox) 600 mg EVERY 12 HOURS GT 06/23/20 21:00 07/18/20 23:59 06/23/20 20:52 Meropenem 500 mg/ Sodium Chloride 55 ml @ 110 mls/hr Q24H IVPB 06/21/20 18:00 06/26/20 17:59 06/23/20 17:15 Pantoprazole (Protonix) 40 mg EVERY 12 HOURS IVP 06/14/20 11:45 07/14/20 11:44 06/23/20 20:52 Neurological/Psychiatric: Reports: anxiety, depressed; Denies: no symptoms, emotional problems, headache, numbness, paresthesia, pre-existing deficit, seizure, tingling, tremors, weakness, other Allergies: Coded Allergies: No Known Allergies (Unverified , 06/13/20) Objective Data Height (Feet): 5 Height (Inches): 8.00 Weight (Pounds): 143 General Appearance: alert, confused, moderate distress, agitated Additional Comments: awake, eyes open. Unable to communicate. Mood is anxious and depressed. Affect is blunted, congruent with mood. Thought process concrete. Thought content, no suicidal or homicidal ideation. Thought content is impaired. Insight and judgment is impaired. Assessment/Plan Status: progressing Assessment/Plan: ASSESSMENT: [place] I dementia. [place] II Deferred. [place] III As above. [place] IV Low. [place] V 20. PLAN: 1. Haldol IM p.r.n. 2. Patient is on bilateral restraints. 3. Continue to follow and readjust the medications. Neftaly Delacruz MD Jun 23, 2020 23:21
[2020-06-24] VITALS: BP 139/82
--- NOTE | 2020-06-24 02:30 | NUR ---
NURSE NOTES: Pt was given bed bath. gown and linen changed. Pt tolerated well. Pt saturating 99-100% with vent settings. Pt went back to sleep after. Continue to monitor the patient
--- NOTE | 2020-06-24 03:45 | Consultation ---
DATE OF CONSULTATION: 06/23/2020 CONSULTING PHYSICIAN: Neftaly Delacruz MD HISTORY OF PRESENT ILLNESS: This is a 54-year-old male with a history of multiple medical issues, status post tracheostomy, PEG placement, CVA, history of anxiety, agitation, pulling out lines. Patient is confused, not able to be engaged, unable to follow commands. Has episodes of agitation. PAST PSYCHIATRIC HISTORY: Unknown. Patient does not have a POA and is capacitated to make any decisions. PAST MEDICAL HISTORY: Renal failure, hypertension, anemia, congestive heart failure, diabetes mellitus. ALLERGIES: No known drug allergies. SUBSTANCE USE HISTORY: No known history of illicit drug use or alcohol. MENTAL STATUS EXAMINATION: Patient is awake, eyes open. Unable to communicate. Mood is anxious and depressed. Affect is blunted, congruent with mood. Thought process concrete. Thought content, no suicidal or homicidal ideation. Thought content is impaired. Insight and judgment is impaired. ASSESSMENT: [place] I Cognitive impairment. [place] II Deferred. [place] III As above. [place] IV Low. [place] V 20. PLAN: 1. Haldol IM p.r.n. 2. Patient is on bilateral restraints. 3. Continue to follow and readjust the medications. Neftaly Delacruz M.D. DR: ORIANA JOB#: [id number] CC:
[2020-06-24 04:00] VITALS: BP 136/78
[2020-06-24] MEDS: Aluminum Hydroxide Gel Susp 15ml GT SCH ×4 (04:18→22:39)
--- NOTE | 2020-06-24 05:15 | NUR ---
NURSE NOTES: Pt was noted kicking the foot of the bed, trying to get up and roll to the side of the bed. Pt becoming agitated and insisting to move right leg outside the bed. VS are stable. encourage pt to remain calm but unable to do so.
[2020-06-24] MEDS: Haloperidol 5mg/ml Inj IM PRN (05:17)
[2020-06-24 05:42] LABS: ALBUMIN 1.5 G/DL (3.4-5.0); ALBUMIN/GLOBULIN RATIO 0.2 (1.0-2.7); BILIRUBIN,TOTAL 0.4 MG/DL (0.2-1.0); CALCIUM 8.5 MG/DL (8.5-10.1); CREATININE 3.2 MG/DL (0.55-1.30); PHOSPHORUS 2.3 MG/DL (2.5-4.9); POTASSIUM 3.7 MMOL/L (3.5-5.1)
[2020-06-24 05:46] LABS: BILIRUBIN, URINE NEGATIVE (NEGATIVE); GLUCOSE, URINE (UA) NEGATIVE (NEGATIVE); KETONES,URINE 1+ (NEGATIVE); LEUKOCYTE ESTERASE ,URINE 3+ (NEGATIVE); NITRITE,URINE NEGATIVE (NEGATIVE); PH,URINE 5 (4.5-8.0); PROTEIN,URINE 4+ (NEGATIVE); UROBILINOGEN,URINE NORMAL MG/DL (0.0-1.0)
--- NOTE | 2020-06-24 06:05 | NUR ---
NURSE NOTES: Pt asleep in bed. no respiratory distress noted. HR is 58-61 bpm. Pt saturating at 94-96% with vent settings. Continue plan of care
[2020-06-24 06:42] LABS: APPEARANCE,URINE CLOUDY; COLOR,URINE YELLOW
--- NOTE | 2020-06-24 06:48 | Hematology/Onc Progress Note ---
Assessment/Plan Assessment/Plan ASSESSMENT AND PLAN: #. Anemia that is likely due to chronic disease, r/o gi bleeding --> anemia panel has been reviewed, ferritin is >2000 --> no e/o hemolysis is noted --> transfuse on prn basis --> blood consent has been signed --> hgb 7.4-->7.4-->7-->6.7-->8-->7.5-->8.4 --> folic acid is wnl --> 1 unit prbc 06/18 --> epogen has been started # Acute DVT in the distal right common femoral vein and profunda femoris vein. --> DUPLEX. Acute DVT in the distal right common femoral vein and profunda femoris vein. 2. No evidence of left lower extremity DVT. --> cannot anticoagulate at this time --> 06/17 s/p ivc filter placement --> hold off anticoag # Leukocytosis is likely due to b/l infiltrates --> on abx as per id -> ABX yolis/vanc-->yolis/linezolid--> yolis/levaq --> continue trend --> wbc 15-->12->9.5 # Respiratory failure in this patient with vent-dependent respiratory failure. 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 # Dysphagia --> status post PEG placement. # Renal failure. -> per Dr. Honeycutt. # Hyperkalemia and kayxelate as needed. # Dvt ppx scds Appreciate consultation and dw RN Subjective Constitutional: Denies: no symptoms, chills, fever, malaise, weakness, other HEENT: Denies: no symptoms, eye pain, blurred vision, tearing, double vision, ear pain, ear discharge, nose pain, nose congestion, throat pain, throat swelling, mouth pain, mouth swelling, other Cardiovascular: Denies: no symptoms, chest pain, edema, irregular heart rate, lightheadedness, palpitations, syncope, other Gastrointestinal/Abdominal: Denies: no symptoms, abdomen distended, abdominal pain, black stools, tarry stools, blood in stool, constipated, diarrhea, difficulty swallowing, nausea, poor appetite, poor fluid intake, rectal bleeding, vomiting, other Genitourinary: Denies: no symptoms, burning, discharge, frequency, flank pain, hematuria, incontinence, pain, urgency, other Endocrine: Denies: no symptoms, excessive sweating, flushing, intolerance to cold, intolerance to heat, increased hunger, increased thirst, increased urine, unexplained weight gain, unexplained weight loss, other Allergies: Coded Allergies: No Known Allergies (Unverified , 06/13/20) Subjective 06/16 meds noted, labs reviewed, vent to trach, for ivc filter potentially 06/17 labs noted, meds reviewed, for ivc filter once covid neg 06/18 labs are noted, on vent and gt, 1 unit prbc ordered 06/19 labs pending, is s/p ivcf placement yesterday 06/20 for hd nontunneled cathter placement, no bleeding 06/22 labs noted, no bleeding, found down overnight, got ct brain, is neg 06/23 overnight is agitated and requiring restraints 06/24 labs noted, meds reviewed, hgb pending for am, restraints Objective Objective Current Medications Medications (Trade) Dose Ordered Sig/Maryjane Route PRN Reason Start Time Stop Time Status Last Admin Dose Admin Acetaminophen (Tylenol) 650 mg Q4H PRN GT Mild Pain (Pain Scale 1-3) 06/18/20 23:00 07/18/20 22:59 Acetaminophen (Tylenol) 650 mg Q4HR PRN GT FEVER 06/14/20 09:45 07/14/20 09:44 06/19/20 20:45 Aluminum Hydroxide (Amphojel) 1,920 mg Q6H GT 06/17/20 10:00 07/17/20 09:59 06/24/20 04:18 Ascorbic Acid (Vitamin C) 500 mg DAILY ORAL 06/16/20 09:00 07/16/20 08:59 06/23/20 08:45 Chlorhexidine Gluconate (Inés-Hex 2%) 1 applic DAILY@1999 TOPIC 06/21/20 20:00 09/19/20 19:59 06/23/20 20:52 Dextrose (Dextrose 50%) 25 ml Q30M PRN IV Hypoglycemia 06/14/20 03:45 09/12/20 03:44 Dextrose (Dextrose 50%) 50 ml Q30M PRN IV Hypoglycemia 06/14/20 03:45 09/12/20 03:44 Epoetin Bonilla (Epoetin Bonilla-EPBX(NON ESRD)) 10,000 unit SUBQ 06/18/20 21:00 09/16/20 20:59 06/23/20 21:06 Haloperidol Lactate (Haldol) 5 mg Q6H PRN IM Agitation 06/21/20 23:15 08/05/20 23:14 06/24/20 05:17 Levofloxacin (Levaquin) 500 mg Q48H GT 06/21/20 09:00 06/28/20 08:59 06/23/20 08:44 Linezolid (Zyvox) 600 mg EVERY 12 HOURS GT 06/23/20 21:00 07/18/20 23:59 06/23/20 20:52 Meropenem 500 mg/ Sodium Chloride 55 ml @ 110 mls/hr Q24H IVPB 06/21/20 18:00 06/26/20 17:59 06/23/20 17:15 Pantoprazole (Protonix) 40 mg EVERY 12 HOURS IVP 06/14/20 11:45 07/14/20 11:44 06/23/20 20:52 Last 24 Hour Vital Signs Date Time Temp Pulse Resp B/P (MAP) Pulse Ox O2 Delivery O2 Flow Rate FiO2 06/24/20 04:33 63 21 40 06/24/20 04:00 40 06/24/20 04:00 95.5 66 17 136/78 (97) 96 06/24/20 04:00 Mechanical Ventilator 15.0 06/24/20 03:32 66 06/24/20 02:33 64 24 40 06/24/20 01:08 71 30 96 Mechanical Ventilator 40 06/24/20 01:07 71 30 40 06/24/20 00:00 Mechanical Ventilator 15.0 06/24/20 00:00 96.1 74 17 139/82 (101) 96 06/23/20 23:33 63 06/23/20 23:08 65 22 40 06/23/20 20:43 67 31 40 06/23/20 20:00 96.4 68 17 133/77 (95) 96 06/23/20 20:00 50 06/23/20 20:00 Mechanical Ventilator 15.0 06/23/20 19:10 75 06/23/20 18:39 72 25 40 06/23/20 16:35 60 34 50 06/23/20 16:00 Mechanical Ventilator 15.0 06/23/20 16:00 55 06/23/20 16:00 50 06/23/20 15:41 97.1 62 17 131/79 (96) 96 06/23/20 15:05 58 21 50 06/23/20 13:10 60 27 50 06/23/20 12:00 50 06/23/20 12:00 Mechanical Ventilator 15.0 06/23/20 12:00 97.3 55 21 128/72 (90) 97 06/23/20 12:00 55 06/23/20 10:50 60 25 50 06/23/20 09:35 56 26 50 06/23/20 08:00 57 06/23/20 08:00 50 06/23/20 08:00 Mechanical Ventilator 15.0 06/23/20 08:00 96.5 58 18 132/75 (94) 100 06/23/20 06:35 58 26 50 06/23/20 05:29 53 19 50 06/23/20 04:00 96.8 77 18 101/77 (85) 100 06/23/20 04:00 50 06/23/20 04:00 Mechanical Ventilator 15.0 06/23/20 03:27 53 19 50 06/23/20 03:21 52 06/23/20 01:30 54 20 50 06/23/20 00:42 96.7 100 06/23/20 00:00 Mechanical Ventilator 15.0 06/23/20 00:00 50 06/23/20 00:00 96.7 55 18 118/68 (85) 100 06/22/20 23:47 55 06/22/20 23:14 56 23 50 06/22/20 21:14 54 24 50 06/22/20 20:42 97.1 100 06/22/20 20:00 Mechanical Ventilator 15.0 06/22/20 20:00 50 06/22/20 20:00 55 06/22/20 20:00 97.1 56 18 123/63 (83) 100 06/22/20 19:30 54 27 50 06/22/20 17:10 55 25 50 06/22/20 16:42 90.5 100 06/22/20 16:05 90.9 57 18 128/72 (90) 100 06/22/20 16:00 Mechanical Ventilator 15.0 06/22/20 16:00 55 06/22/20 16:00 55 06/22/20 15:10 55 19 55 06/22/20 13:10 55 21 55 06/22/20 12:42 90.5 95 06/22/20 12:10 55 06/22/20 12:00 55 06/22/20 11:52 Mechanical Ventilator 15.0 06/22/20 11:49 90.5 54 20 116/61 (79) 100 06/22/20 11:00 56 21 55 06/22/20 09:10 56 22 55 06/22/20 08:42 90.5 95 06/22/20 08:00 Mechanical Ventilator 15.0 06/22/20 08:00 53 06/22/20 08:00 90.5 50 20 115/65 (82) 97 06/22/20 08:00 55 06/22/20 07:42 90.5 95 Intake and Output 06/23/20 06/24/20 19:00 07:00 Intake Total 740 ml 590 ml Output Total 2005 ml 10 ml Balance -1265 ml 580 ml Free Water 300 ml 150 ml Tube Feeding 440 ml 440 ml Output Urine Total 5 ml 10 ml Hemodialysis UF 2000 ml # Bowel Movements 2 4 Labs Test 06/21/20 12:57 06/21/20 17:08 06/21/20 23:33 06/22/20 04:06 POC Whole Blood Glucose 153 MG/DL (74-106) 180 MG/DL (74-106) White Blood Count 9.4 K/UL (4.8-10.8) Red Blood Count 2.59 M/UL (4.70-6.10) Hemoglobin 7.5 G/DL (14.2-18.0) Hematocrit 25.2 % (42.0-52.0) Mean Corpuscular Volume 97 FL (80-99) Mean Corpuscular Hemoglobin 28.9 PG (27.0-31.0) Mean Corpuscular Hemoglobin Concent 29.7 G/DL (32.0-36.0) Red Cell Distribution Width 16.4 % (11.6-14.8) Platelet Count 207 K/UL (150-450) Mean Platelet Volume 8.8 FL (6.5-10.1) Neutrophils (%) (Auto) % (45.0-75.0) Lymphocytes (%) (Auto) % (20.0-45.0) Monocytes (%) (Auto) % (1.0-10.0) Eosinophils (%) (Auto) % (0.0-3.0) Basophils (%) (Auto) % (0.0-2.0) Differential Total Cells Counted 100 Neutrophils % (Manual) 79 % (45-75) Lymphocytes % (Manual) 10 % (20-45) Monocytes % (Manual) 6 % (1-10) Eosinophils % (Manual) 5 % (0-3) Basophils % (Manual) 0 % (0-2) Band Neutrophils 0 % (0-8) Platelet Estimate Adequate Platelet Morphology Normal Hypochromasia 1+ Anisocytosis 1+ Sodium Level 138 MMOL/L (136-145) Potassium Level 4.4 MMOL/L (3.5-5.1) Chloride Level 103 MMOL/L (98-107) Carbon Dioxide Level 30 MMOL/L (21-32) Anion Gap 5 mmol/L (5-15) Blood Urea Nitrogen 72 mg/dL (7-18) Creatinine 3.6 MG/DL (0.55-1.30) Estimat Glomerular Filtration Rate 21.6 mL/min (>60) Glucose Level 164 MG/DL (74-106) Uric Acid 6.0 MG/DL (2.6-7.2) Calcium Level 8.5 MG/DL (8.5-10.1) Phosphorus Level 3.8 MG/DL (2.5-4.9) Magnesium Level 2.9 MG/DL (1.8-2.4) Total Bilirubin 0.4 MG/DL (0.2-1.0) Aspartate Amino Transf (AST/SGOT) 1518 U/L (15-37) Alanine Aminotransferase (ALT/SGPT) 833 U/L (12-78) Alkaline Phosphatase 1091 U/L (46-116) C-Reactive Protein, Quantitative 9.0 mg/dL (0.00-0.90) Pro-B-Type Natriuretic Peptide > 12463 pg/mL (0-125) Total Protein 7.3 G/DL (6.4-8.2) Albumin 1.6 G/DL (3.4-5.0) Globulin 5.7 g/dL Albumin/Globulin Ratio 0.3 (1.0-2.7) Test 06/22/20 05:24 06/22/20 11:59 06/22/20 16:54 06/22/20 23:23 POC Whole Blood Glucose 144 MG/DL (74-106) 143 MG/DL (74-106) 160 MG/DL (74-106) 147 MG/DL (74-106) Test 06/23/20 04:11 06/23/20 05:11 06/23/20 12:15 06/23/20 16:58 White Blood Count 9.5 K/UL (4.8-10.8) Red Blood Count 2.89 M/UL (4.70-6.10) Hemoglobin 8.4 G/DL (14.2-18.0) Hematocrit 27.9 % (42.0-52.0) Mean Corpuscular Volume 97 FL (80-99) Mean Corpuscular Hemoglobin 29.2 PG (27.0-31.0) Mean Corpuscular Hemoglobin Concent 30.2 G/DL (32.0-36.0) Red Cell Distribution Width 16.3 % (11.6-14.8) Platelet Count 199 K/UL (150-450) Mean Platelet Volume 9.4 FL (6.5-10.1) Neutrophils (%) (Auto) 74.8 % (45.0-75.0) Lymphocytes (%) (Auto) 10.2 % (20.0-45.0) Monocytes (%) (Auto) 9.4 % (1.0-10.0) Eosinophils (%) (Auto) 5.2 % (0.0-3.0) Basophils (%) (Auto) 0.4 % (0.0-2.0) Sodium Level 138 MMOL/L (136-145) Potassium Level 3.8 MMOL/L (3.5-5.1) Chloride Level 103 MMOL/L (98-107) Carbon Dioxide Level 32 MMOL/L (21-32) Anion Gap 3 mmol/L (5-15) Blood Urea Nitrogen 77 mg/dL (7-18) Creatinine 4.3 MG/DL (0.55-1.30) Estimat Glomerular Filtration Rate 17.6 mL/min (>60) Glucose Level 184 MG/DL (74-106) Uric Acid 6.1 MG/DL (2.6-7.2) Calcium Level 8.7 MG/DL (8.5-10.1) Phosphorus Level 3.5 MG/DL (2.5-4.9) Magnesium Level 2.8 MG/DL (1.8-2.4) Total Bilirubin 0.4 MG/DL (0.2-1.0) Gamma Glutamyl Transpeptidase 163 U/L (5-85) Aspartate Amino Transf (AST/SGOT) 1776 U/L (15-37) Alanine Aminotransferase (ALT/SGPT) 1006 U/L (12-78) Alkaline Phosphatase 1085 U/L (46-116) Total Creatine Kinase 88 U/L (26-308) C-Reactive Protein, Quantitative 7.9 mg/dL (0.00-0.90) Pro-B-Type Natriuretic Peptide > 49275 pg/mL (0-125) Total Protein 7.5 G/DL (6.4-8.2) Albumin 1.6 G/DL (3.4-5.0) Globulin 5.9 g/dL Albumin/Globulin Ratio 0.3 (1.0-2.7) Lipase 385 U/L (73-393) Hepatitis B Surface Antigen Negative (NEGATIVE) POC Whole Blood Glucose 179 MG/DL (74-106) 191 MG/DL (74-106) 129 MG/DL (74-106) Test 06/23/20 23:37 06/24/20 03:20 06/24/20 04:00 06/24/20 05:00 POC Whole Blood Glucose 157 MG/DL (74-106) 159 MG/DL (74-106) Sodium Level 135 MMOL/L (136-145) Potassium Level 3.7 MMOL/L (3.5-5.1) Chloride Level 99 MMOL/L (98-107) Carbon Dioxide Level 33 MMOL/L (21-32) Anion Gap 3 mmol/L (5-15) Blood Urea Nitrogen 50 mg/dL (7-18) Creatinine 3.2 MG/DL (0.55-1.30) Estimat Glomerular Filtration Rate 24.7 mL/min (>60) Glucose Level 164 MG/DL (74-106) Uric Acid 4.2 MG/DL (2.6-7.2) Calcium Level 8.5 MG/DL (8.5-10.1) Phosphorus Level 2.3 MG/DL (2.5-4.9) Magnesium Level 2.6 MG/DL (1.8-2.4) Total Bilirubin 0.4 MG/DL (0.2-1.0) Gamma Glutamyl Transpeptidase 158 U/L (5-85) Aspartate Amino Transf (AST/SGOT) 1395 U/L (15-37) Alanine Aminotransferase (ALT/SGPT) 1038 U/L (12-78) Alkaline Phosphatase 1011 U/L (46-116) Total Protein 7.5 G/DL (6.4-8.2) Albumin 1.5 G/DL (3.4-5.0) Globulin 6.0 g/dL Albumin/Globulin Ratio 0.2 (1.0-2.7) Thyroid Stimulating Hormone (TSH) 13.762 uiU/mL (0.358-3.740) Free Thyroxine 1.03 NG/DL (0.76-1.46) Urine Color Yellow Urine Appearance Cloudy Urine pH 5 (4.5-8.0) Urine Specific [place] 1.020 (1.005-1.035) Urine Protein 4+ (NEGATIVE) Urine Glucose (UA) Negative (NEGATIVE) Urine Ketones 1+ (NEGATIVE) Urine Blood 5+ (NEGATIVE) Urine Nitrite Negative (NEGATIVE) Urine Bilirubin Negative (NEGATIVE) Urine Urobilinogen Normal MG/DL (0.0-1.0) Urine Leukocyte Esterase 3+ (NEGATIVE) Urine RBC Tntc /HPF (0 - 0) Urine WBC Tntc /HPF (0 - 0) Urine Squamous Epithelial Cells None /LPF (NONE/OCC) Urine Bacteria Many /HPF (NONE) Urine Coarse Granular Casts 2-4 /LPF (NONE) Height (Feet): 5 Height (Inches): 8.00 Weight (Pounds): 143 Objective PHYSICAL EXAMINATION: VITAL SIGNS: reviewed HEAD AND NECK: Show status post tracheostomy. vent+ LUNGS: Coarse rhonchi and basilar rales. CARDIOVASCULAR: Shows irregular S1 and S2 with no gallop. ABDOMEN: Soft. Status post G-tube. EXTREMITIES: No pitting edema.++Left yasmina Jose Tan MD Jun 24, 2020 06:48
--- NOTE | 2020-06-24 07:00 | NUR ---
NURSE HAND-OFF REPORT: Important Events on Shift: none Patient Status: stable Diet: nephro at 40cc/hr Pending Orders: n Pending Results/Labs:n Pending MD notification:n Latest Vital Signs: Temperature 95.5 , Pulse 63 , B/P 136 /78 , Respiratory Rate 21 , O2 SAT 96 , Mechanical Ventilator, O2 Flow Rate 15.0 . Vital Sign Comment: n EKG Rhythm: Sinus Rhythm Rhythm change?: N MD Notified?: Jennifer Lipscomb MD Response: No New Orders Received Latest Santiago Fall Score: 60 Fall Risk: High Risk Safety Measures: Call light Within Reach, Bed Alarm Zone 2, Side Rails Side Rails x3, Bed position Low and Locked. Fall Precautions: Yellow Socks Yellow Gown Door Sign Patient Fall Education Report given to Varun Hurst RN/ [facility].
--- NOTE | 2020-06-24 07:00 | NUR ---
NURSE NOTES: Received patient from [facility]. patient is sleeping in bed, sinus rhythm on the monitor. Patient is on the ventilator at prescribed settings, tolerating well, saturating at 99%. Patient has a Gtube and tube feedings running at prescribed rate, tolerating well. cabrera catheter is draining well to gravity. Side rails up x2, bed to lowest and locked position. will continue plan of care.
[2020-06-24 07:45] VITALS: BP 136/74
[2020-06-24] MEDS: Ascorbic Acid 500mg tab ORAL SCH (08:04)
[2020-06-24] MEDS: Pantoprazole Inj IVP SCH ×2 (08:05→20:12)
--- NOTE | 2020-06-24 08:16 | Cardiac Electrophysiology PN ---
Assessment/Plan Assessment/Plan 1. Vent-dependent respirator failure. S/P tracheostomy. On 40% Fio2 Chest x-ray extensive bilateral pneumonia or ARDS. Off isolation EF 50%. Ruled out for CA. BNP [id number]. On iv Abx 2. Tachycardia, likely due to respiratory failure. 3. Right femoral vein DVT. S/P IVC filter 06/18 4. Dysphagia, status post PEG placement. 5. Renal failure. S/P Right IJ Iron and HD by Dr. Honeycutt. 6. Severe anemia, S/P PRBC DW RN Subjective Subjective On the Vent off isolation. On 40% Fio2 and PEEP. S/P IVC filter and PRBC S/P Right IJ Iron and first HD 06/21/20 Was found on the floo 06/22/20 and in restraints Had HD yesterday Objective Last 24 Hour Vital Signs Date Time Temp Pulse Resp B/P (MAP) Pulse Ox O2 Delivery O2 Flow Rate FiO2 06/24/20 07:45 93.2 58 17 136/74 (94) 95 06/24/20 04:33 63 21 40 06/24/20 04:00 40 06/24/20 04:00 95.5 66 17 136/78 (97) 96 06/24/20 04:00 Mechanical Ventilator 15.0 06/24/20 03:32 66 06/24/20 02:33 64 24 40 06/24/20 01:08 71 30 96 Mechanical Ventilator 40 06/24/20 01:07 71 30 40 06/24/20 00:00 Mechanical Ventilator 15.0 06/24/20 00:00 96.1 74 17 139/82 (101) 96 06/23/20 23:33 63 06/23/20 23:08 65 22 40 06/23/20 20:43 67 31 40 06/23/20 20:00 96.4 68 17 133/77 (95) 96 06/23/20 20:00 50 06/23/20 20:00 Mechanical Ventilator 15.0 06/23/20 19:10 75 06/23/20 18:39 72 25 40 06/23/20 16:35 60 34 50 06/23/20 16:00 Mechanical Ventilator 15.0 06/23/20 16:00 55 06/23/20 16:00 50 06/23/20 15:41 97.1 62 17 131/79 (96) 96 06/23/20 15:05 58 21 50 06/23/20 13:10 60 27 50 06/23/20 12:00 50 06/23/20 12:00 Mechanical Ventilator 15.0 06/23/20 12:00 97.3 55 21 128/72 (90) 97 06/23/20 12:00 55 06/23/20 10:50 60 25 50 06/23/20 09:35 56 26 50 Intake and Output 06/23/20 06/24/20 19:00 07:00 Intake Total 740 ml 630 ml Output Total 2005 ml 10 ml Balance -1265 ml 620 ml Free Water 300 ml 150 ml Tube Feeding 440 ml 480 ml Output Urine Total 5 ml 10 ml Hemodialysis UF 2000 ml # Bowel Movements 2 4 Laboratory Tests Test 06/23/20 12:15 06/23/20 16:58 06/23/20 23:37 06/24/20 03:20 POC Whole Blood Glucose 191 MG/DL (74-106) H 129 MG/DL (74-106) H 157 MG/DL (74-106) H Sodium Level 135 MMOL/L (136-145) L Potassium Level 3.7 MMOL/L (3.5-5.1) Chloride Level 99 MMOL/L (98-107) Carbon Dioxide Level 33 MMOL/L (21-32) H Anion Gap 3 mmol/L (5-15) L Blood Urea Nitrogen 50 mg/dL (7-18) H Creatinine 3.2 MG/DL (0.55-1.30) H Estimat Glomerular Filtration Rate 24.7 mL/min (>60) Glucose Level 164 MG/DL (74-106) H Uric Acid 4.2 MG/DL (2.6-7.2) Calcium Level 8.5 MG/DL (8.5-10.1) Phosphorus Level 2.3 MG/DL (2.5-4.9) L Magnesium Level 2.6 MG/DL (1.8-2.4) H Total Bilirubin 0.4 MG/DL (0.2-1.0) Gamma Glutamyl Transpeptidase 158 U/L (5-85) H Aspartate Amino Transf (AST/SGOT) 1395 U/L (15-37) H Alanine Aminotransferase (ALT/SGPT) 1038 U/L (12-78) H Alkaline Phosphatase 1011 U/L (46-116) H Total Protein 7.5 G/DL (6.4-8.2) Albumin 1.5 G/DL (3.4-5.0) L Globulin 6.0 g/dL Albumin/Globulin Ratio 0.2 (1.0-2.7) L Thyroid Stimulating Hormone (TSH) 13.762 uiU/mL (0.358-3.740) Free Thyroxine 1.03 NG/DL (0.76-1.46) Hepatitis B Surface Antibody, Quant Pending Hepatitis C Antibody Pending Test 06/24/20 04:00 06/24/20 05:00 Urine Color Yellow Urine Appearance Cloudy Urine pH 5 (4.5-8.0) Urine Specific [place] 1.020 (1.005-1.035) Urine Protein 4+ (NEGATIVE) H Urine Glucose (UA) Negative (NEGATIVE) Urine Ketones 1+ (NEGATIVE) H Urine Blood 5+ (NEGATIVE) H Urine Nitrite Negative (NEGATIVE) Urine Bilirubin Negative (NEGATIVE) Urine Urobilinogen Normal MG/DL (0.0-1.0) Urine Leukocyte Esterase 3+ (NEGATIVE) H Urine RBC Tntc /HPF (0 - 0) H Urine WBC Tntc /HPF (0 - 0) H Urine Squamous Epithelial Cells None /LPF (NONE/OCC) Urine Bacteria Many /HPF (NONE) H Urine Coarse Granular Casts 2-4 /LPF (NONE) H POC Whole Blood Glucose 159 MG/DL (74-106) H Objective HEAD AND NECK: Status post tracheostomy.Right IJ Iron in place LUNGS: Coarse rhonchi and basilar rales. CARDIOVASCULAR: Shows irregular S1 and S2 with no gallop. ABDOMEN: Soft. Status post G-tube. EXTREMITIES: No pitting edema. Lance Mcguire MD Jun 24, 2020 08:16
--- NOTE | 2020-06-24 10:30 | Pulmonology Progress Note ---
Subjective ROS Limited/Unobtainable: Yes Interval Events: FiO2 now 40%; Remains on vent. Constitutional: Denies: fever HEENT: Repors: no symptoms Respiratory: Reports: no symptoms Cardiovascular: Reports: no symptoms Gastrointestinal/Abdominal: Reports: no symptoms Genitourinary: Reports: no symptoms Allergies: Coded Allergies: No Known Allergies (Unverified , 06/13/20) Objective Last 24 Hour Vital Signs Date Time Temp Pulse Resp B/P (MAP) Pulse Ox O2 Delivery O2 Flow Rate FiO2 06/24/20 08:00 40 06/24/20 08:00 Mechanical Ventilator 15.0 06/24/20 07:45 93.2 58 17 136/74 (94) 95 06/24/20 04:33 63 21 40 06/24/20 04:00 40 06/24/20 04:00 95.5 66 17 136/78 (97) 96 06/24/20 04:00 Mechanical Ventilator 15.0 06/24/20 03:32 66 06/24/20 02:33 64 24 40 06/24/20 01:08 71 30 96 Mechanical Ventilator 40 06/24/20 01:07 71 30 40 06/24/20 00:00 Mechanical Ventilator 15.0 06/24/20 00:00 96.1 74 17 139/82 (101) 96 06/23/20 23:33 63 06/23/20 23:08 65 22 40 06/23/20 20:43 67 31 40 06/23/20 20:00 96.4 68 17 133/77 (95) 96 06/23/20 20:00 50 06/23/20 20:00 Mechanical Ventilator 15.0 06/23/20 19:10 75 06/23/20 18:39 72 25 40 06/23/20 16:35 60 34 50 06/23/20 16:00 Mechanical Ventilator 15.0 06/23/20 16:00 55 06/23/20 16:00 50 06/23/20 15:41 97.1 62 17 131/79 (96) 96 06/23/20 15:05 58 21 50 06/23/20 13:10 60 27 50 06/23/20 12:00 50 06/23/20 12:00 Mechanical Ventilator 15.0 06/23/20 12:00 97.3 55 21 128/72 (90) 97 06/23/20 12:00 55 06/23/20 10:50 60 25 50 Intake and Output 06/23/20 06/24/20 19:00 07:00 Intake Total 740 ml 630 ml Output Total 2005 ml 10 ml Balance -1265 ml 620 ml Free Water 300 ml 150 ml Tube Feeding 440 ml 480 ml Output Urine Total 5 ml 10 ml Hemodialysis UF 2000 ml # Bowel Movements 2 4 General Appearance: no acute distress HEENT: status post trach Respiratory: chest wall non-tender, lungs clear Cardiovascular: normal peripheral pulses, normal rate Abdomen: normal bowel sounds Extremities: no cyanosis Laboratory Tests 06/23/20 12:15: POC Whole Blood Glucose 191H 06/23/20 16:58: POC Whole Blood Glucose 129H 06/23/20 23:37: POC Whole Blood Glucose 157H 06/24/20 03:20: Sodium Level 135L, Potassium Level 3.7, Chloride Level 99, Carbon Dioxide Level 33H, Anion Gap 3L, Blood Urea Nitrogen 50H, Creatinine 3.2H, Estimat Glomerular Filtration Rate 24.7, Glucose Level 164H, Uric Acid 4.2, Calcium Level 8.5, Phosphorus Level 2.3L, Magnesium Level 2.6H, Total Bilirubin 0.4, Gamma Glutamyl Transpeptidase 158H, Aspartate Amino Transf (AST/SGOT) 1395H, Alanine Aminotransferase (ALT/SGPT) 1038H, Alkaline Phosphatase 1011H, Total Protein 7.5, Albumin 1.5L, Globulin 6.0, Albumin/Globulin Ratio 0.2L, Thyroid Stimulating Hormone (TSH) 13.762H, Free Thyroxine 1.03, Hepatitis B Surface Antibody, Quant [Pending], Hepatitis C Antibody [Pending] 06/24/20 04:00: Urine Color Yellow, Urine Appearance Cloudy, Urine pH 5, Urine Specific [place] 1.020, Urine Protein 4+H, Urine Glucose (UA) Negative, Urine Ketones 1+H, Urine Blood 5+H, Urine Nitrite Negative, Urine Bilirubin Negative, Urine Urobilinogen Normal, Urine Leukocyte Esterase 3+H, Urine RBC TntcH, Urine WBC TntcH, Urine Squamous Epithelial Cells None, Urine Bacteria ManyH, Urine Coarse Granular Casts 2-4H 06/24/20 05:00: POC Whole Blood Glucose 159H Current Medications Medications (Trade) Dose Ordered Sig/Maryjane Route PRN Reason Start Time Stop Time Status Last Admin Dose Admin Acetaminophen (Tylenol) 650 mg Q4H PRN GT Mild Pain (Pain Scale 1-3) 06/18/20 23:00 07/18/20 22:59 Acetaminophen (Tylenol) 650 mg Q4HR PRN GT FEVER 06/14/20 09:45 07/14/20 09:44 06/19/20 20:45 Aluminum Hydroxide (Amphojel) 1,920 mg Q6H GT 06/17/20 10:00 07/17/20 09:59 06/24/20 04:18 Ascorbic Acid (Vitamin C) 500 mg DAILY ORAL 06/16/20 09:00 07/16/20 08:59 06/24/20 08:04 Chlorhexidine Gluconate (Inés-Hex 2%) 1 applic DAILY@2000 TOPIC 06/21/20 20:00 09/19/20 19:59 06/23/20 20:52 Dextrose (Dextrose 50%) 25 ml Q30M PRN IV Hypoglycemia 06/14/20 03:45 09/12/20 03:44 Dextrose (Dextrose 50%) 50 ml Q30M PRN IV Hypoglycemia 06/14/20 03:45 09/12/20 03:44 Epoetin Bonilla (Epoetin Bonilla-EPBX(NON ESRD)) 10,000 unit TUE-TUE-TUE SUBQ 06/18/20 21:00 09/16/20 20:59 06/23/20 21:06 Haloperidol Lactate (Haldol) 5 mg Q6H PRN IM Agitation 06/21/20 23:15 08/05/20 23:14 06/24/20 05:17 Levofloxacin (Levaquin) 500 mg Q48H GT 06/21/20 09:00 06/28/20 08:59 06/23/20 08:44 Linezolid (Zyvox) 600 mg EVERY 12 HOURS GT 06/23/20 21:00 07/18/20 23:59 06/24/20 08:05 Meropenem 500 mg/ Sodium Chloride 55 ml @ 110 mls/hr Q24H IVPB 06/21/20 18:00 06/26/20 17:59 06/23/20 17:15 Pantoprazole (Protonix) 40 mg EVERY 12 HOURS IVP 06/14/20 11:45 07/14/20 11:44 06/24/20 08:05 Assessment/Plan Problems: (1) Acute respiratory failure Assessment/Plan IMPRESSION: 1. Chronic respiratory failure. 2. Hypoxemia. 3. Respiratory acidosis. 4. Anemia. 5. Leukocytosis. 6. DVT 7. S/p code blue 06/19/20 DISCUSSION: The patient's x-ray is markedly abnormal with bilateral infiltrates. I suspect he has pulmonary fibrosis. Latest CXR is unchanged; will repeat COVID 19 pcr and antigen both negative No anticoagulation for DVT due to anemia S/p IVC filter placement Continue assist-control mechanical ventilation; currently FiO2 reduced to 40%; SaO2 100%, broad-spectrum antibiotics. Transfusion as needed. Will decrease PEEP to 5; S/p HD WIll decrease FiO2 as tolerated I will follow carefully. Hugo Carl Omar Syed MD Jun 24, 2020 10:30
--- NOTE | 2020-06-24 11:14 | Infectious Diseases Prog Note ---
Assessment/Plan Assessment/Plan IMPRESSION: Pneumonia with Pseudomonas & Stenotrophomonas Hypothermia COVID19 X 2: negative Ventilator-dependent respiratory failure, Diabetes mellitus type 2, Hypertension, History of left BKA, Hypertension, anemia, Major depression, Pressure ulcer, Elevated transaminase, Hyperkalemia. Anemia R leg DVT s/p IVC filter Sacral osteomyelitis Severe anemia Acute renal failure ESRD Hypercapnic respiratory failure RECOMMENDATION: Discontinue meropenem Continue Levaquin X 1 day Continue Linezolid until 07/18 Endocrinology evaluation Case was D/W RN Subjective ROS Limited/Unobtainable: Yes Constitutional: Reports: other - hypothermia Neurologic: Reports: confusion, other - on restraint Allergies: Coded Allergies: No Known Allergies (Unverified , 06/13/20) Objective Last 24 Hour Vital Signs Date Time Temp Pulse Resp B/P (MAP) Pulse Ox O2 Delivery O2 Flow Rate FiO2 06/24/20 08:00 58 06/24/20 08:00 40 06/24/20 08:00 Mechanical Ventilator 15.0 06/24/20 07:45 93.2 58 17 136/74 (94) 95 06/24/20 04:33 63 21 40 06/24/20 04:00 40 06/24/20 04:00 95.5 66 17 136/78 (97) 96 06/24/20 04:00 Mechanical Ventilator 15.0 06/24/20 03:32 66 06/24/20 02:33 64 24 40 06/24/20 01:08 71 30 96 Mechanical Ventilator 40 06/24/20 01:07 71 30 40 06/24/20 00:00 Mechanical Ventilator 15.0 06/24/20 00:00 96.1 74 17 139/82 (101) 96 06/23/20 23:33 63 06/23/20 23:08 65 22 40 06/23/20 20:43 67 31 40 06/23/20 20:00 96.4 68 17 133/77 (95) 96 06/23/20 20:00 50 06/23/20 20:00 Mechanical Ventilator 15.0 06/23/20 19:10 75 06/23/20 18:39 72 25 40 06/23/20 16:35 60 34 50 06/23/20 16:00 Mechanical Ventilator 15.0 06/23/20 16:00 55 06/23/20 16:00 50 06/23/20 15:41 97.1 62 17 131/79 (96) 96 06/23/20 15:05 58 21 50 06/23/20 13:10 60 27 50 06/23/20 12:00 50 06/23/20 12:00 Mechanical Ventilator 15.0 06/23/20 12:00 97.3 55 21 128/72 (90) 97 06/23/20 12:00 55 Height (Feet): 5 Height (Inches): 8.00 Weight (Pounds): 143 General Appearance: no acute distress HEENT: mucous membranes moist, status post trach Respiratory/Chest: lungs clear, other - on ventilator Cardiovascular: normal rate Abdomen: soft, non tender, other - GT feeding Extremities: no edema, other - left BKA Neurologic/Psychiatric: alert, responsive Laboratory Tests Test 06/23/20 12:15 06/23/20 16:58 06/23/20 23:37 06/24/20 03:20 POC Whole Blood Glucose 191 MG/DL (74-106) H 129 MG/DL (74-106) H 157 MG/DL (74-106) H Sodium Level 135 MMOL/L (136-145) L Potassium Level 3.7 MMOL/L (3.5-5.1) Chloride Level 99 MMOL/L (98-107) Carbon Dioxide Level 33 MMOL/L (21-32) H Anion Gap 3 mmol/L (5-15) L Blood Urea Nitrogen 50 mg/dL (7-18) H Creatinine 3.2 MG/DL (0.55-1.30) H Estimat Glomerular Filtration Rate 24.7 mL/min (>60) Glucose Level 164 MG/DL (74-106) H Uric Acid 4.2 MG/DL (2.6-7.2) Calcium Level 8.5 MG/DL (8.5-10.1) Phosphorus Level 2.3 MG/DL (2.5-4.9) L Magnesium Level 2.6 MG/DL (1.8-2.4) H Total Bilirubin 0.4 MG/DL (0.2-1.0) Gamma Glutamyl Transpeptidase 158 U/L (5-85) H Aspartate Amino Transf (AST/SGOT) 1395 U/L (15-37) H Alanine Aminotransferase (ALT/SGPT) 1038 U/L (12-78) H Alkaline Phosphatase 1011 U/L (46-116) H Total Protein 7.5 G/DL (6.4-8.2) Albumin 1.5 G/DL (3.4-5.0) L Globulin 6.0 g/dL Albumin/Globulin Ratio 0.2 (1.0-2.7) L Thyroid Stimulating Hormone (TSH) 13.762 uiU/mL (0.358-3.740) Free Thyroxine 1.03 NG/DL (0.76-1.46) Hepatitis B Surface Antibody, Quant Pending Hepatitis C Antibody Pending Test 06/24/20 04:00 06/24/20 05:00 Urine Color Yellow Urine Appearance Cloudy Urine pH 5 (4.5-8.0) Urine Specific [place] 1.020 (1.005-1.035) Urine Protein 4+ (NEGATIVE) H Urine Glucose (UA) Negative (NEGATIVE) Urine Ketones 1+ (NEGATIVE) H Urine Blood 5+ (NEGATIVE) H Urine Nitrite Negative (NEGATIVE) Urine Bilirubin Negative (NEGATIVE) Urine Urobilinogen Normal MG/DL (0.0-1.0) Urine Leukocyte Esterase 3+ (NEGATIVE) H Urine RBC Tntc /HPF (0 - 0) H Urine WBC Tntc /HPF (0 - 0) H Urine Squamous Epithelial Cells None /LPF (NONE/OCC) Urine Bacteria Many /HPF (NONE) H Urine Coarse Granular Casts 2-4 /LPF (NONE) H POC Whole Blood Glucose 159 MG/DL (74-106) H Current Medications Medications (Trade) Dose Ordered Sig/Maryjane Route PRN Reason Start Time Stop Time Status Last Admin Dose Admin Acetaminophen (Tylenol) 650 mg Q4H PRN GT Mild Pain (Pain Scale 1-3) 06/18/20 23:00 07/18/20 22:59 Acetaminophen (Tylenol) 650 mg Q4HR PRN GT FEVER 06/14/20 09:45 07/14/20 09:44 06/19/20 20:45 Aluminum Hydroxide (Amphojel) 1,920 mg Q6H GT 06/17/20 10:00 07/17/20 09:59 06/24/20 10:43 Ascorbic Acid (Vitamin C) 500 mg DAILY ORAL 06/16/20 09:00 07/16/20 08:59 06/24/20 08:04 Chlorhexidine Gluconate (Inés-Hex 2%) 1 applic DAILY@2000 TOPIC 06/21/20 20:00 09/19/20 19:59 06/23/20 20:52 Dextrose (Dextrose 50%) 25 ml Q30M PRN IV Hypoglycemia 06/14/20 03:45 09/12/20 03:44 Dextrose (Dextrose 50%) 50 ml Q30M PRN IV Hypoglycemia 06/14/20 03:45 09/12/20 03:44 Epoetin Bonilla (Epoetin Bonilla-EPBX(NON ESRD)) 10,000 unit TUE-TUE-TUE SUBQ 06/18/20 21:00 09/16/20 20:59 06/23/20 21:06 Haloperidol Lactate (Haldol) 5 mg Q6H PRN IM Agitation 06/21/20 23:15 08/05/20 23:14 06/24/20 05:17 Levofloxacin (Levaquin) 500 mg Q48H GT 06/21/20 09:00 06/28/20 08:59 06/23/20 08:44 Linezolid (Zyvox) 600 mg EVERY 12 HOURS GT 06/23/20 21:00 07/18/20 23:59 06/24/20 08:05 Meropenem 500 mg/ Sodium Chloride 55 ml @ 110 mls/hr Q24H IVPB 06/21/20 18:00 06/26/20 17:59 06/23/20 17:15 Pantoprazole (Protonix) 40 mg EVERY 12 HOURS IVP 06/14/20 11:45 07/14/20 11:44 06/24/20 08:05 Paul Amador MD Jun 24, 2020 11:14
[2020-06-24 11:52] VITALS: BP 136/73
--- NOTE | 2020-06-24 12:51 | NUR ---
RD ASSESSMENT & RECOMMENDATIONS SEE CARE ACTIVITY FOR COMPLETE ASSESSMENT DAILY ESTIMATED NEEDS: Needs based on Wound, critical care, underweight/ 55.5kg 25-33 (25-35 w/ HD) kcals/kg 6351-5426 (4732-1608) total kcals 1.25-2 g protein/kg 69-111 g total protein 25-30 mL/kg 7194-9545 total fluid mLs NUTRITION DIAGNOSIS: * Swallowing difficulty R/T respiratory status as evidenced by pt is trach/vent dep, PEG dep. CURRENT TF: Nepro @ 40ml/hr x24 hrs ENTERAL NUTRITION RECOMMENDATIONS: Nepro @ 40ml/hr x 24 hrs to provide 960ml, 1728kcal, 78g prot, 698ml free water * Maintain current TF * HOB over 30 degrees/ water flush per MD ADDITIONAL RECOMMENDATIONS: * Per SNF: HT=69" IC=[id number] -> rec daily calibrated bedscale wt * Monitor lytes: elev K-> now wnl, phos now low * Wound healing: RANDY BID + Nephrovite 1 tab qdaily * Monitor for bm, last bm 06/19, now 06/24 * W/ HD rec to add Prosource 1 pack qdaily for added 11g pro/day.
--- NOTE | 2020-06-24 13:00 | NUR ---
NURSE NOTES: Patient noted with ALT 1038, AST 1395, TSH 13.762, T4 1.03. Dr. Apple made aware and acknowledge. Per Dr. Apple ordered consult from Dr. Ramos and Dr. Stringer. Per Dr. Apple he will make them aware.
--- NOTE | 2020-06-24 14:44 | NUR ---
NURSE NOTES: Dr. Delacruz seen and examined patient at bedside. Dr. Delacruz ordered to start patient on Seroquel 50 mg GT Q12HR. Order entered, noted, and carried out. Will continue to monitor patient.
--- NOTE | 2020-06-24 14:49 | NUR ---
[employer]ECTUR[employer] C DEVELOPER SI RESP FAILURE, TRACH/VENT DEPENDENT, RENAL FAILURE BP 136/73 HR 66 RR 21 T 98.4 AC 16 TV 500 PEEP 5 FIO2 50% BUN 50 CR 3.2 AST/ALT 1395/1038 TSH 13.7 IS ZYVOX GT LEVAQUIN GT STEP DOWN STATUS
--- NOTE | 2020-06-24 15:15 | Surgery Progress Note ---
Surgery Progress Note Subjective Additional Comments improved labs note exam stable Objective Last 24 Hour Vital Signs Date Time Temp Pulse Resp B/P (MAP) Pulse Ox O2 Delivery O2 Flow Rate FiO2 06/24/20 12:00 67 06/24/20 11:59 Mechanical Ventilator 15.0 06/24/20 11:57 40 06/24/20 11:52 98.4 66 21 136/73 (94) 100 06/24/20 11:00 67 27 40 06/24/20 08:33 62 26 40 06/24/20 08:00 58 06/24/20 08:00 40 06/24/20 08:00 Mechanical Ventilator 15.0 06/24/20 07:45 93.2 58 17 136/74 (94) 95 06/24/20 06:45 62 25 40 06/24/20 04:33 63 21 40 06/24/20 04:00 40 06/24/20 04:00 95.5 66 17 136/78 (97) 96 06/24/20 04:00 Mechanical Ventilator 15.0 06/24/20 03:32 66 06/24/20 02:33 64 24 40 06/24/20 01:08 71 30 96 Mechanical Ventilator 40 06/24/20 01:07 71 30 40 06/24/20 00:00 Mechanical Ventilator 15.0 06/24/20 00:00 96.1 74 17 139/82 (101) 96 06/23/20 23:33 63 06/23/20 23:08 65 22 40 06/23/20 20:43 67 31 40 06/23/20 20:00 96.4 68 17 133/77 (95) 96 06/23/20 20:00 50 06/23/20 20:00 Mechanical Ventilator 15.0 06/23/20 19:10 75 06/23/20 18:39 72 25 40 06/23/20 16:35 60 34 50 06/23/20 16:00 Mechanical Ventilator 15.0 06/23/20 16:00 55 06/23/20 16:00 50 06/23/20 15:41 97.1 62 17 131/79 (96) 96 I&O Intake and Output 06/23/20 06/24/20 19:00 07:00 Intake Total 740 ml 630 ml Output Total 2005 ml 10 ml Balance -1265 ml 620 ml Free Water 300 ml 150 ml Tube Feeding 440 ml 480 ml Output Urine Total 5 ml 10 ml Hemodialysis UF 2000 ml # Bowel Movements 2 4 Dressing: saturated Cardiovascular: RSR Respiratory: decreased breath sounds Abdomen: soft, non-tender, present bowel sounds Extremities: no cyanosis Laboratory Tests Test 06/23/20 16:58 06/23/20 23:37 06/24/20 03:20 06/24/20 04:00 POC Whole Blood Glucose 129 MG/DL (74-106) H 157 MG/DL (74-106) H Sodium Level 135 MMOL/L (136-145) L Potassium Level 3.7 MMOL/L (3.5-5.1) Chloride Level 99 MMOL/L (98-107) Carbon Dioxide Level 33 MMOL/L (21-32) H Anion Gap 3 mmol/L (5-15) L Blood Urea Nitrogen 50 mg/dL (7-18) H Creatinine 3.2 MG/DL (0.55-1.30) H Estimat Glomerular Filtration Rate 24.7 mL/min (>60) Glucose Level 164 MG/DL (74-106) H Uric Acid 4.2 MG/DL (2.6-7.2) Calcium Level 8.5 MG/DL (8.5-10.1) Phosphorus Level 2.3 MG/DL (2.5-4.9) L Magnesium Level 2.6 MG/DL (1.8-2.4) H Total Bilirubin 0.4 MG/DL (0.2-1.0) Gamma Glutamyl Transpeptidase 158 U/L (5-85) H Aspartate Amino Transf (AST/SGOT) 1395 U/L (15-37) H Alanine Aminotransferase (ALT/SGPT) 1038 U/L (12-78) H Alkaline Phosphatase 1011 U/L (46-116) H Total Protein 7.5 G/DL (6.4-8.2) Albumin 1.5 G/DL (3.4-5.0) L Globulin 6.0 g/dL Albumin/Globulin Ratio 0.2 (1.0-2.7) L Thyroid Stimulating Hormone (TSH) 13.762 uiU/mL (0.358-3.740) Free Thyroxine 1.03 NG/DL (0.76-1.46) Hepatitis B Surface Antibody, Quant Pending Hepatitis C Antibody Pending Urine Color Yellow Urine Appearance Cloudy Urine pH 5 (4.5-8.0) Urine Specific [place] 1.020 (1.005-1.035) Urine Protein 4+ (NEGATIVE) H Urine Glucose (UA) Negative (NEGATIVE) Urine Ketones 1+ (NEGATIVE) H Urine Blood 5+ (NEGATIVE) H Urine Nitrite Negative (NEGATIVE) Urine Bilirubin Negative (NEGATIVE) Urine Urobilinogen Normal MG/DL (0.0-1.0) Urine Leukocyte Esterase 3+ (NEGATIVE) H Urine RBC Tntc /HPF (0 - 0) H Urine WBC Tntc /HPF (0 - 0) H Urine Squamous Epithelial Cells None /LPF (NONE/OCC) Urine Bacteria Many /HPF (NONE) H Urine Coarse Granular Casts 2-4 /LPF (NONE) H Test 06/24/20 05:00 06/24/20 12:03 POC Whole Blood Glucose 159 MG/DL (74-106) H 170 MG/DL (74-106) H Plan Problems: (1) Leukocytosis Assessment & Plan: 54-year-old male multiple comorbidities admitted for abnormal chest x-ray potentially pneumonia leukocytosis abnormal labs. Patient identified to have a prior left BKA surgical sutures still in place as well as a surgical sacral wound with sutures in place. Considerations of dehiscence being identified and potential etiology of infection. After evaluation unlikely source of infection though the sacral wound was looked to be dehiscing at the inferior aspect. No acute surgical mention at this time We will discussed care plan with PCP Recommend follow-up with initial surgeon considerations of removal of surgical sutures Care plan initiated worsening lft's US ordered ? shayla (2) Surgical wound dehiscence Assessment & Plan: Patient identified to have a left BKA surgical sutures in place flap looks like it is taken well no signs of infection at this time no signs of seroma hematoma or drainage. Unknown exact length or duration of poten tial prior left BKA and until then recommend leaving sutures in place as it may be too early though it does look well-healed. If able to obtain prior records we will be happy to remove sutures otherwise will need follow-up with primary surgeon furthermore patient identified to have a surgical wound in the sacral area seems he probably potentially had a stage IV sacral decubitus ulcer that had debridement and primary closure. Fortunately. Sutures are still in place and it looks like the inferior aspect may be slowly dehiscing. There is no significant drainage no foul odor no signs of active infection unknown if bone was palpable prior. Can consider removing surgical sutures but again would recommend obtaining prior records of possible prior to doing so. Also recommend following up with primary surgeon as this may need ongoing continued care. Will follow with recommendations and as information is available. Continue current care plan. Wash wounds daily with normal saline. Apply skin protectant Optifoam dressing. Turn every 2 hours. Offload pressure with pillows and air mattress. Nutritional optimization. (3) History of left below knee amputation (4) Malnutrition Assessment & Plan: DAILY ESTIMATED NEEDS: Needs based on Wound, critical care, underweight/ 55.5kg 25-33 (25-35 w/ HD) kcals/kg 9094-0638 (7835-5163) total kcals 1.25-2 g protein/kg 69-111 g total protein 25-30 mL/kg 2549-1062 total fluid mLs NUTRITION DIAGNOSIS: * Swallowing difficulty R/T respiratory status as evidenced by pt is trach/vent dep, PEG dep. CURRENT TF: Nepro @ 40ml/hr x24 hrs ENTERAL NUTRITION RECOMMENDATIONS: Nepro @ 40ml/hr x 24 hrs to provide 960ml, 1728kcal, 78g prot, 698ml free water * Maintain current TF * HOB over 30 degrees/ water flush per MD ADDITIONAL RECOMMENDATIONS: * Per SNF: HT=69" [id number] -> rec daily calibrated bedscale wt * Monitor lytes: elev K-> now wnl, phos now low * Wound healing: RANDY BID + Nephrovite 1 tab qdaily * Monitor for bm, last bm 06/19, now 06/24 * W/ HD rec to add Prosource 1 pack qdaily for added 11g pro/day. (5) Anemia (6) KERRI (acute kidney injury) (7) Acute respiratory failure (8) Hyperkalemia (9) Anemia (10) Abnormal laboratory test result (11) Chronic respiratory failure Azar Mares Jun 24, 2020 15:15
[2020-06-24 15:39] VITALS: BP 149/86
--- NOTE | 2020-06-24 16:00 | NUR ---
NURSE NOTES: Escorted patient's sister, Stephy Cedeño, to nephrology social worker Isauro's office to speak with nephrology social worker. facility maintenance worker Isauro spoke with Ms. Stephy Cedeño. Noted.
--- NOTE | 2020-06-24 16:19 | NUR ---
ORDER PLANNER NOTE HEATHER was asked by CN to review the POA document. Per CN, pt's daughter, Blanca [phone] has been the main decision maker while IP. Per nursing note on 06/20/2020 1140, the daughter informed RN that pt's sister can provide consent in case of emergency. SW attempted to call [facility] [phone] to confirm the decision maker. SW attempted to call [facility] 3x. However, HEATHER was told by the petroleum refining equipment operator that Admission and Medical Records are off today and the calls were transferred to SW and HR, however, calls did not answer w/o vm option. HEATHER attempted to call pt's daughter, Blanca [phone] 2x. The calls were not answered. HEATHER met w/ pt's sister Stephy Cedeño at 4:10PM, stating that she spoke w/ HEATHER Gregg that she was going to get the copy of POA and notarize it on site today. HEATHER attempted to explain the policy/decision making hierarchy in [place]. Stephy refused to listen to this SW, stating that she encountered the same issue at [facility]. HEATHER asked Stephy Cedeño if the daughter/niece Blanca is aware of this event today, Stephy Cedeño declined to answer, telling this SW that pt already approved her to be the POA that Blanca does not need to know. HEATHER explained Stephy that this SW would need to confirm with Blanca to make sure that the family is on board with such decision, since she has been the main decision maker. Stephy Cedeño requested to speak to HEATHER Gregg. This SW informed Stephy that this SW will relay her request to HEATHER Gregg, who will be returning on 06/30/2020. Stephy Cedeño refused to listen to /communicated with this HEATHER further, and left the office. HEATHER will F/U seymour Rios to gather more information on current POA/decision making situation. Addendum: 06/24/20 at 1644 by KEILA ROMERO SW also met w/ pt to assess his mental status briefly before meeting pt's sister, Stephy. Pt appears to be A&O 1-2x. He was able to recognize himself, family members, sharing w/ this SW that he has 3 children. However, pt was unable to recognized the place, his current residence and situation.
--- NOTE | 2020-06-24 16:28 | Nephrology Progress Note ---
Assessment/Plan Problem List: (1) KERRI (acute kidney injury) (2) Acute respiratory failure (3) Chronic respiratory failure (4) Anemia (5) Hyperkalemia Assessment Acute on chronic renal failure Anemia Respiratory failure acute on chronic Respiratory acidosis and hypoxia Hyperkalemia Plan June 24: Dialyzed yesterday. Labs reviewed. Medication list reviewed. Liver enzymes remains elevated. Continue to monitor electrolytes renal parameters and LFTs. Hemodialysis in a.m. if needed. June 23: Patient will be dialyzed today again. Labs reviewed. Serum creatinine higher. Elevated liver enzymes persist. Patient full code. Continue per consultants. June 22: Patient dialyzed yesterday. Labs reviewed. Liver function tests and enzymes are elevated. Continue to monitor renal parameters and LFTs. C ontinue per consultants. Patient full code. June 21: Patient due for dialysis today. Labs and medication list reviewed. Discussed with RN. Continue to monitor renal parameters. June 20: Patient had an episode of bradycardia last night. Serum creatinine rising. Patient continues to have respiratory acidosis. Discussed with RN Varun. Will order non tunneled dialysis catheter placement for initiation of dialysis treatment due to acute renal failure. Patient remains full code. I favor comfort care if bioethics consultation is sought and physicians on the team agreeable. June 19: No CHEM panel today. Low hemoglobin as of yesterday's lab results. Anemia management per Dr. Cueva. Continue to monitor renal parameters. June 18: Labs are reviewed. Hemoglobin lower. Creatinine higher. ABG not done yet. Patient full code. Continue per consultants. June 17: Labs reviewed. Hemoglobin low. Creatinine up to 3. Phosphorus levels elevated. Will start Amphojel via GT tube as a phosphorus binder. Monitor renal parameters. Check ABG. Continue per consultants. June 16: Labs reviewed. Serum creatinine mariana to 2.6. Abnormal electrolytes now normalized. Continue to monitor renal parameters and avoid nephrotoxic's. Continue to adjust pulmonary status as possible. June 15: ABG pH of 7.1. 2D echo suggestive of ejection fraction of 50%. Labs reviewed. Serum creatinine mariana. Will hold IV Lasix. Will give Kayexalate for high potassium and 1 amp of sodium bicarb. Albumin IV bolus given. Continue per consultants. Continue to monitor renal parameters. Kidney ultrasound ordered. June 14: As follow Pulmonary evaluation Sparrow catheter Hold IV fluid IV fluid, until 2D echo results available Kayexalate for high potassium IV Protonix 2D echocardiogram Anemia work-up More labs ordered Subjective ROS Limited/Unobtainable: Yes Objective Objective Last 24 Hour Vital Signs Date Time Temp Pulse Resp B/P (MAP) Pulse Ox O2 Delivery O2 Flow Rate FiO2 06/24/20 16:00 40 06/24/20 16:00 Mechanical Ventilator 15.0 06/24/20 15:39 95.9 68 21 149/86 (107) 100 06/24/20 15:14 68 30 40 06/24/20 13:13 69 33 40 06/24/20 12:00 67 06/24/20 11:59 Mechanical Ventilator 15.0 06/24/20 11:57 40 06/24/20 11:52 98.4 66 21 136/73 (94) 100 06/24/20 11:00 67 27 40 06/24/20 08:33 62 26 40 06/24/20 08:00 58 06/24/20 08:00 40 06/24/20 08:00 Mechanical Ventilator 15.0 06/24/20 07:45 93.2 58 17 136/74 (94) 95 06/24/20 06:45 62 25 40 06/24/20 04:33 63 21 40 06/24/20 04:00 40 06/24/20 04:00 95.5 66 17 136/78 (97) 96 06/24/20 04:00 Mechanical Ventilator 15.0 06/24/20 03:32 66 06/24/20 02:33 64 24 40 06/24/20 01:08 71 30 96 Mechanical Ventilator 40 06/24/20 01:07 71 30 40 06/24/20 00:00 Mechanical Ventilator 15.0 06/24/20 00:00 96.1 74 17 139/82 (101) 96 06/23/20 23:33 63 06/23/20 23:08 65 22 40 06/23/20 20:43 67 31 40 06/23/20 20:00 96.4 68 17 133/77 (95) 96 06/23/20 20:00 50 06/23/20 20:00 Mechanical Ventilator 15.0 06/23/20 19:10 75 06/23/20 18:39 72 25 40 06/23/20 16:35 60 34 50 Intake and Output 06/23/20 06/24/20 19:00 07:00 Intake Total 740 ml 630 ml Output Total 2005 ml 10 ml Balance -1265 ml 620 ml Free Water 300 ml 150 ml Tube Feeding 440 ml 480 ml Output Urine Total 5 ml 10 ml Hemodialysis UF 2000 ml # Bowel Movements 2 4 Laboratory Tests 06/23/20 16:58: POC Whole Blood Glucose 129H 06/23/20 23:37: POC Whole Blood Glucose 157H 06/24/20 03:20: Sodium Level 135L, Potassium Level 3.7, Chloride Level 99, Carbon Dioxide Level 33H, Anion Gap 3L, Blood Urea Nitrogen 50H, Creatinine 3.2H, Estimat Glomerular Filtration Rate 24.7, Glucose Level 164H, Uric Acid 4.2, Calcium Level 8.5, Phosphorus Level 2.3L, Magnesium Level 2.6H, Total Bilirubin 0.4, Gamma Glutamyl Transpeptidase 158H, Aspartate Amino Transf (AST/SGOT) 1395H, Alanine Aminotransferase (ALT/SGPT) 1038H, Alkaline Phosphatase 1011H, Total Protein 7.5, Albumin 1.5L, Globulin 6.0, Albumin/Globulin Ratio 0.2L, Thyroid Stimulating Hormone (TSH) 13.762H, Free Thyroxine 1.03, Hepatitis B Surface Antibody, Quant [Pending], Hepatitis C Antibody [Pending] 06/24/20 04:00: Urine Color Yellow, Urine Appearance Cloudy, Urine pH 5, Urine Specific [place] 1.020, Urine Protein 4+H, Urine Glucose (UA) Negative, Urine Ketones 1+H, Urine Blood 5+H, Urine Nitrite Negative, Urine Bilirubin Negative, Urine Urobilinogen Normal, Urine Leukocyte Esterase 3+H, Urine RBC TntcH, Urine WBC TntcH, Urine Squamous Epithelial Cells None, Urine Bacteria ManyH, Urine Coarse Granular Casts 2-4H 06/24/20 05:00: POC Whole Blood Glucose 159H 06/24/20 12:03: POC Whole Blood Glucose 170H Height (Feet): 5 Height (Inches): 8.00 Weight (Pounds): 143 General Appearance: no apparent distress EENT: other - Trach to vent Cardiovascular: normal rate Respiratory/Chest: decreased breath sounds Abdomen: distended Leonidas Honeycutt MD Jun 24, 2020 16:28
--- NOTE | 2020-06-24 17:00 | NUR ---
NURSE NOTES: Per social media designer Isauro asked this nurse to contact patient's daughter Blanca Box to contact her as that Isauro unable to reach Blanca Cedeño on Telephone. This nurse called MsLeticia Cedeño, unable to leave voicemail as that no voicemail service provided.
--- NOTE | 2020-06-24 18:00 | NUR ---
INSURANCE CLINICALS AND REVIEW FAXED TO [facility] [phone]
--- NOTE | 2020-06-24 18:24 | General Progress Note ---
Subjective ROS Limited/Unobtainable: No Allergies: Coded Allergies: No Known Allergies (Unverified , 06/13/20) Subjective events noted interval notes reviewed glucose values are stable TSH is higher Item Value Date Time Bedside Blood Glucose 189 mg/dl H 06/24/20 1800 Bedside Blood Glucose 170 mg/dl H 06/24/20 1200 Bedside Blood Glucose 159 mg/dl H 06/24/20 0600 Bedside Blood Glucose 157 mg/dl H 06/24/20 0000 Bedside Blood Glucose 129 mg/dl H 06/23/20 1800 Bedside Blood Glucose 191 mg/dl H 06/23/20 1200 Objective Last 24 Hour Vital Signs Date Time Temp Pulse Resp B/P (MAP) Pulse Ox O2 Delivery O2 Flow Rate FiO2 06/24/20 17:06 71 32 40 06/24/20 16:00 40 06/24/20 16:00 69 06/24/20 16:00 Mechanical Ventilator 15.0 06/24/20 15:39 95.9 68 21 149/86 (107) 100 06/24/20 15:14 68 30 40 06/24/20 13:13 69 33 40 06/24/20 12:00 67 06/24/20 11:59 Mechanical Ventilator 15.0 06/24/20 11:57 40 06/24/20 11:52 98.4 66 21 136/73 (94) 100 06/24/20 11:00 67 27 40 06/24/20 08:33 62 26 40 06/24/20 08:00 58 06/24/20 08:00 40 06/24/20 08:00 Mechanical Ventilator 15.0 06/24/20 07:45 93.2 58 17 136/74 (94) 95 06/24/20 06:45 62 25 40 06/24/20 04:33 63 21 40 06/24/20 04:00 40 06/24/20 04:00 95.5 66 17 136/78 (97) 96 06/24/20 04:00 Mechanical Ventilator 15.0 06/24/20 03:32 66 06/24/20 02:33 64 24 40 06/24/20 01:08 71 30 96 Mechanical Ventilator 40 06/24/20 01:07 71 30 40 06/24/20 00:00 Mechanical Ventilator 15.0 06/24/20 00:00 96.1 74 17 139/82 (101) 96 06/23/20 23:33 63 06/23/20 23:08 65 22 40 06/23/20 20:43 67 31 40 06/23/20 20:00 96.4 68 17 133/77 (95) 96 06/23/20 20:00 50 06/23/20 20:00 Mechanical Ventilator 15.0 06/23/20 19:10 75 06/23/20 18:39 72 25 40 Intake and Output 06/23/20 06/24/20 19:00 07:00 Intake Total 740 ml 630 ml Output Total 2005 ml 10 ml Balance -1265 ml 620 ml Free Water 300 ml 150 ml Tube Feeding 440 ml 480 ml Output Urine Total 5 ml 10 ml Hemodialysis UF 2000 ml # Bowel Movements 2 4 Laboratory Tests 06/23/20 23:37: POC Whole Blood Glucose 157H 06/24/20 03:20: Sodium Level 135L, Potassium Level 3.7, Chloride Level 99, Carbon Dioxide Level 33H, Anion Gap 3L, Blood Urea Nitrogen 50H, Creatinine 3.2H, Estimat Glomerular Filtration Rate 24.7, Glucose Level 164H, Uric Acid 4.2, Calcium Level 8.5, Phosphorus Level 2.3L, Magnesium Level 2.6H, Total Bilirubin 0.4, Gamma Glutamyl Transpeptidase 158H, Aspartate Amino Transf (AST/SGOT) 1395H, Alanine Aminotransferase (ALT/SGPT) 1038H, Alkaline Phosphatase 1011H, Total Protein 7.5, Albumin 1.5L, Globulin 6.0, Albumin/Globulin Ratio 0.2L, Thyroid Stimulating Hormone (TSH) 13.762H, Free Thyroxine 1.03, Hepatitis B Surface Antibody, Quant [Pending], Hepatitis C Antibody [Pending] 06/24/20 04:00: Urine Color Yellow, Urine Appearance Cloudy, Urine pH 5, Urine Specific [place] 1.020, Urine Protein 4+H, Urine Glucose (UA) Negative, Urine Ketones 1+H, Urine Blood 5+H, Urine Nitrite Negative, Urine Bilirubin Negative, Urine Urobilinogen Normal, Urine Leukocyte Esterase 3+H, Urine RBC TntcH, Urine WBC TntcH, Urine Squamous Epithelial Cells None, Urine Bacteria ManyH, Urine Coarse Granular Casts 2-4H 06/24/20 05:00: POC Whole Blood Glucose 159H 06/24/20 12:03: POC Whole Blood Glucose 170H 06/24/20 17:31: POC Whole Blood Glucose [Pending] Height (Feet): 5 Height (Inches): 8.00 Weight (Pounds): 143 General Appearance: moderate distress Neck: normal alignment Cardiovascular: normal rate Respiratory/Chest: decreased breath sounds Abdomen: normal bowel sounds Objective Current Medications Medications (Trade) Dose Ordered Sig/Maryjane Route PRN Reason Start Time Stop Time Status Last Admin Dose Admin Acetaminophen (Tylenol) 650 mg Q4H PRN GT Mild Pain (Pain Scale 1-3) 06/18/20 23:00 07/18/20 22:59 Acetaminophen (Tylenol) 650 mg Q4HR PRN GT FEVER 06/14/20 09:45 07/14/20 09:44 06/19/20 20:45 Aluminum Hydroxide (Amphojel) 1,920 mg Q6H GT 06/17/20 10:00 07/17/20 09:59 06/24/20 15:14 Ascorbic Acid (Vitamin C) 500 mg DAILY ORAL 06/16/20 09:00 07/16/20 08:59 06/24/20 08:04 Chlorhexidine Gluconate (Inés-Hex 2%) 1 applic DAILY@1999 TOPIC 06/21/20 20:00 09/19/20 19:59 06/23/20 20:52 Dextrose (Dextrose 50%) 25 ml Q30M PRN IV Hypoglycemia 06/14/20 03:45 09/12/20 03:44 Dextrose (Dextrose 50%) 50 ml Q30M PRN IV Hypoglycemia 06/14/20 03:45 09/12/20 03:44 Epoetin Bonilla (Epoetin Bonilla-EPBX(NON ESRD)) 10,000 unit TUE-TUE-TUE SUBQ 06/18/20 21:00 09/16/20 20:59 06/23/20 21:06 Haloperidol Lactate (Haldol) 5 mg Q6H PRN IM Agitation 06/21/20 23:15 08/05/20 23:14 06/24/20 05:17 Levofloxacin (Levaquin) 500 mg Q48H GT 06/21/20 09:00 06/28/20 08:59 06/23/20 08:44 Linezolid (Zyvox) 600 mg EVERY 12 HOURS GT 06/23/20 21:00 07/18/20 23:59 06/24/20 08:05 Pantoprazole (Protonix) 40 mg EVERY 12 HOURS IVP 06/14/20 11:45 07/14/20 11:44 06/24/20 08:05 Quetiapine Fumarate (SEROqueL) 50 mg Q12HR GT 06/24/20 21:00 08/08/20 20:59 Assessment/Plan Problem List: (1) History of left below knee amputation ICD Codes: Z89.512 - Acquired absence of left leg below knee SNOMED: 329677165, 762069808750844 (2) Surgical wound dehiscence ICD Codes: T81.31XA - Disruption of external operation (surgical) wound, not elsewhere classified, initial encounter SNOMED: 93300692 (3) Hyperkalemia ICD Codes: E87.5 - Hyperkalemia SNOMED: 12862549 (4) Acute respiratory failure ICD Codes: J96.00 - Acute respiratory failure, unspecified whether with hypoxia or hypercapnia SNOMED: 66621298 Qualifiers: Qualified Codes: J96.02 - Acute respiratory failure with hypercapnia (5) Hypothyroidism ICD Codes: E03.9 - Hypothyroidism, unspecified SNOMED: 13226996 (6) Hyperglycemia ICD Codes: R73.9 - Hyperglycemia, unspecified SNOMED: 77843812 Status: progressing Assessment/Plan: start levothyroxine 50 mcg daily repeat thyroid function in 1-2 weeks continue glucose monitoring Davy Ramos MD Jun 24, 2020 18:24
--- NOTE | 2020-06-24 19:18 | NUR ---
NURSE HAND-OFF REPORT: Important Events on Shift:consult for GI and endocrine Patient Status: FULL code Diet: Nepro 40ml/hr Pending Orders: [] Pending Results/Labs:[] Pending MD notification:[] Latest Vital Signs: Temperature 95.9 , Pulse 71 , B/P 149 /86 , Respiratory Rate 30 , O2 SAT 100 , Mechanical Ventilator, O2 Flow Rate 15.0 . Vital Sign Comment: stable EKG Rhythm: Sinus Rhythm Rhythm change?: N MD Notified?: Jennifer Lipscomb MD Response: No New Orders Received Latest Santiago Fall Score: 60 Fall Risk: High Risk Safety Measures: Call light Within Reach, Bed Alarm Zone 2, Side Rails Side Rails x3, Bed position Low and Locked. Fall Precautions: Yellow Socks Yellow Gown Door Sign Patient Fall Education Report given to Lis Rader RN.
--- NOTE | 2020-06-24 19:19 | NUR ---
NURSE NOTES: received pt from Varun SANTANA., pt is sleeping at this time and easy to arouse. pvc monitor shows SR. vent noted no SOB noted. O2sat is at 100%. Gtube site intact, clean, and patent, Nephro @ 40ml/hr. cabrera cath is draining well with gravity without bleeding noted. right IJ noted for HD, dressing site intact, clean, and patent. skin alternation noted, dressing sites are dry and clean. Bilateral soft wrist restrain noted, pulse noted, no edema noted. left lower extremities amputation noted with suture. left FA 20G site intact clean, and patent. left will continue to monitor pt with plan of care. bed at the lowest position, alarmed, locked, and side rails x 3 up.
[2020-06-24 20:00] VITALS: BP 145/77
[2020-06-24] MEDS: Dyna-Hex 2% Top Sol 2oz TOPIC SCH (20:11)
--- NOTE | 2020-06-24 20:18 | Psychiatric Progress Note ---
Psychiatry Progress Note Psychiatry Progress Note Subjective the pt still needs prns agitation Medications Current Medications Medications (Trade) Dose Ordered Sig/Maryjane Route PRN Reason Start Time Stop Time Status Last Admin Dose Admin Acetaminophen (Tylenol) 650 mg Q4H PRN GT Mild Pain (Pain Scale 1-3) 06/18/20 23:00 07/18/20 22:59 Acetaminophen (Tylenol) 650 mg Q4HR PRN GT FEVER 06/14/20 09:45 07/14/20 09:44 06/19/20 20:45 Aluminum Hydroxide (Amphojel) 1,920 mg Q6H GT 06/17/20 10:00 07/17/20 09:59 06/24/20 15:14 Ascorbic Acid (Vitamin C) 500 mg DAILY ORAL 06/16/20 09:00 07/16/20 08:59 06/24/20 08:04 Chlorhexidine Gluconate (Inés-Hex 2%) 1 applic DAILY@1999 TOPIC 06/21/20 20:00 09/19/20 19:59 06/24/20 20:11 Dextrose (Dextrose 50%) 25 ml Q30M PRN IV Hypoglycemia 06/14/20 03:45 09/12/20 03:44 Dextrose (Dextrose 50%) 50 ml Q30M PRN IV Hypoglycemia 06/14/20 03:45 09/12/20 03:44 Epoetin Bonilla (Epoetin Bonilla-EPBX(NON ESRD)) 10,000 unit TUE-TUE-TUE SUBQ 06/18/20 21:00 09/16/20 20:59 06/23/20 21:06 Haloperidol Lactate (Haldol) 5 mg Q6H PRN IM Agitation 06/21/20 23:15 08/05/20 23:14 06/24/20 05:17 Levofloxacin (Levaquin) 500 mg Q48H GT 06/21/20 09:00 06/28/20 08:59 06/23/20 08:44 Levothyroxine Sodium (Synthroid) 50 mcg DAILY@0630 ORAL 06/25/20 06:30 07/25/20 06:29 Linezolid (Zyvox) 600 mg EVERY 12 HOURS GT 06/23/20 21:00 07/18/20 23:59 06/24/20 20:11 Pantoprazole (Protonix) 40 mg EVERY 12 HOURS IVP 06/14/20 11:45 07/14/20 11:44 06/24/20 20:12 Quetiapine Fumarate (SEROqueL) 50 mg Q12HR GT 06/24/20 21:00 08/08/20 20:59 06/24/20 20:12 Neurological/Psychiatric: Reports: anxiety, depressed; Denies: no symptoms, emotional problems, headache, numbness, paresthesia, pre-existing deficit, seizure, tingling, tremors, weakness, other Allergies: Coded Allergies: No Known Allergies (Unverified , 06/13/20) Objective Data Height (Feet): 5 Height (Inches): 8.00 Weight (Pounds): 143 General Appearance: alert, confused, moderate distress, agitated Additional Comments: awake, eyes open. Unable to communicate. Mood is anxious and depressed. Affect is blunted, congruent with mood. Thought process concrete. Thought content, no suicidal or homicidal ideation. Thought content is impaired. Insight and judgment is impaired. Assessment/Plan [place] I: ASSESSMENT: [place] I dementia. [place] II Deferred. [place] III As above. [place] IV Low. [place] V 20. PLAN: 1. Haldol IM p.r.n. 2. Patient is on bilateral restraints. 3. Continue to follow and readjust the medications. Status: progressing Status Narrative ASSESSMENT: [place] I dementia. [place] II Deferred. [place] III As above. [place] IV Low. [place] V 20. PLAN: 1. Haldol IM p.r.n. 2. Patient is on bilateral restraints. 3. Continue to follow and readjust the medications. Assessment/Plan: ASSESSMENT: [place] I dementia. [place] II Deferred. [place] III As above. [place] IV Low. [place] V 20. PLAN: 1. Haldol IM p.r.n. 2. Patient is on bilateral restraints. 3. Continue to follow and readjust the medications. Neftaly Delacruz MD Jun 24, 2020 20:18
--- NOTE | 2020-06-24 21:10 | General Progress Note ---
Subjective ROS Limited/Unobtainable: Yes Allergies: Coded Allergies: No Known Allergies (Unverified , 06/13/20) Objective Last 24 Hour Vital Signs Date Time Temp Pulse Resp B/P (MAP) Pulse Ox O2 Delivery O2 Flow Rate FiO2 06/24/20 20:35 72 32 50 06/24/20 18:38 71 30 50 06/24/20 17:06 71 32 40 06/24/20 16:00 40 06/24/20 16:00 69 06/24/20 16:00 Mechanical Ventilator 15.0 06/24/20 15:39 95.9 68 21 149/86 (107) 100 06/24/20 15:14 68 30 40 06/24/20 13:13 69 33 40 06/24/20 12:00 67 06/24/20 11:59 Mechanical Ventilator 15.0 06/24/20 11:57 40 06/24/20 11:52 98.4 66 21 136/73 (94) 100 06/24/20 11:00 67 27 40 06/24/20 08:33 62 26 40 06/24/20 08:00 58 06/24/20 08:00 40 06/24/20 08:00 Mechanical Ventilator 15.0 06/24/20 07:45 93.2 58 17 136/74 (94) 95 06/24/20 06:45 62 25 40 06/24/20 04:33 63 21 40 06/24/20 04:00 40 06/24/20 04:00 95.5 66 17 136/78 (97) 96 06/24/20 04:00 Mechanical Ventilator 15.0 06/24/20 03:32 66 06/24/20 02:33 64 24 40 06/24/20 01:08 71 30 96 Mechanical Ventilator 40 06/24/20 01:07 71 30 40 06/24/20 00:00 Mechanical Ventilator 15.0 06/24/20 00:00 96.1 74 17 139/82 (101) 96 06/23/20 23:33 63 06/23/20 23:08 65 22 40 Intake and Output 06/23/20 06/24/20 19:00 07:00 Intake Total 740 ml 630 ml Output Total 2005 ml 10 ml Balance -1265 ml 620 ml Free Water 300 ml 150 ml Tube Feeding 440 ml 480 ml Output Urine Total 5 ml 10 ml Hemodialysis UF 2000 ml # Bowel Movements 2 4 Laboratory Tests 06/23/20 23:37: POC Whole Blood Glucose 157H 06/24/20 03:20: Sodium Level 135L, Potassium Level 3.7, Chloride Level 99, Carbon Dioxide Level 33H, Anion Gap 3L, Blood Urea Nitrogen 50H, Creatinine 3.2H, Estimat Glomerular Filtration Rate 24.7, Glucose Level 164H, Uric Acid 4.2, Calcium Level 8.5, Phosphorus Level 2.3L, Magnesium Level 2.6H, Total Bilirubin 0.4, Gamma Glutamyl Transpeptidase 158H, Aspartate Amino Transf (AST/SGOT) 1395H, Alanine Aminotransferase (ALT/SGPT) 1038H, Alkaline Phosphatase 1011H, Total Protein 7.5, Albumin 1.5L, Globulin 6.0, Albumin/Globulin Ratio 0.2L, Thyroid Stimulating Hormone (TSH) 13.762H, Free Thyroxine 1.03, Hepatitis B Surface Antibody, Quant [Pending], Hepatitis C Antibody [Pending] 06/24/20 04:00: Urine Color Yellow, Urine Appearance Cloudy, Urine pH 5, Urine Specific [place] 1.020, Urine Protein 4+H, Urine Glucose (UA) Negative, Urine Ketones 1+H, Urine Blood 5+H, Urine Nitrite Negative, Urine Bilirubin Negative, Urine Urobilinogen Normal, Urine Leukocyte Esterase 3+H, Urine RBC TntcH, Urine WBC TntcH, Urine Squamous Epithelial Cells None, Urine Bacteria ManyH, Urine Coarse Granular Casts 2-4H 06/24/20 05:00: POC Whole Blood Glucose 159H 06/24/20 12:03: POC Whole Blood Glucose 170H 06/24/20 17:31: POC Whole Blood Glucose [Pending] Height (Feet): 5 Height (Inches): 8.00 Weight (Pounds): 143 Assessment/Plan Problem List: (1) Anemia ICD Codes: D64.9 - Anemia, unspecified SNOMED: 228207780 (2) KERRI (acute kidney injury) ICD Codes: N17.9 - Acute kidney failure, unspecified SNOMED: 1108602, 64843072 (3) Acute respiratory failure ICD Codes: J96.00 - Acute respiratory failure, unspecified whether with hypoxia or hypercapnia SNOMED: 95602886 Qualifiers: Qualified Codes: J96.02 - Acute respiratory failure with hypercapnia (4) Hyperkalemia ICD Codes: E87.5 - Hyperkalemia SNOMED: 83146031 (5) Abnormal laboratory test result ICD Codes: R89.9 - Unspecified abnormal finding in specimens from other organs, systems and tissues SNOMED: 917816285 (6) Anemia ICD Codes: D64.9 - Anemia, unspecified SNOMED: 352795400 Status: progressing Assessment/Plan: anemia s/p fall agitated obs repeat cxr fluid overload sepsis pulm edema arf trach and peg Neida Apple MD Jun 24, 2020 21:10
--- NOTE | 2020-06-24 21:30 | NUR ---
NURSE NOTES: spoke with pt's sister Stephy Deal regarding pt is comfortably in the bed at this time, but still trying to get out from the bed. made sure pt has phone on his hand. made sure pt has loose bilateral wrist restrain. untied both sides of restrain and stretched around pt's arms. call light within reach. will continue to monitor pt.
--- NOTE | 2020-06-24 21:34 | General Progress Note ---
Subjective Allergies: Coded Allergies: No Known Allergies (Unverified , 06/13/20) Subjective Assessment Abnormal LFT, rising, ? etiology - ? infectious hepatitis - ? shayla - ? vascular - ? meds - ? other Recommendations - check infectious hepatitis panel - HIDA - CT - vascular U/S - hold seroquel Thank you MD Myke Objective Last 24 Hour Vital Signs Date Time Temp Pulse Resp B/P (MAP) Pulse Ox O2 Delivery O2 Flow Rate FiO2 06/24/20 20:35 72 32 50 06/24/20 18:38 71 30 50 06/24/20 17:06 71 32 40 06/24/20 16:00 40 06/24/20 16:00 69 06/24/20 16:00 Mechanical Ventilator 15.0 06/24/20 15:39 95.9 68 21 149/86 (107) 100 06/24/20 15:14 68 30 40 06/24/20 13:13 69 33 40 06/24/20 12:00 67 06/24/20 11:59 Mechanical Ventilator 15.0 06/24/20 11:57 40 06/24/20 11:52 98.4 66 21 136/73 (94) 100 06/24/20 11:00 67 27 40 06/24/20 08:33 62 26 40 06/24/20 08:00 58 06/24/20 08:00 40 06/24/20 08:00 Mechanical Ventilator 15.0 06/24/20 07:45 93.2 58 17 136/74 (94) 95 06/24/20 06:45 62 25 40 06/24/20 04:33 63 21 40 06/24/20 04:00 40 06/24/20 04:00 95.5 66 17 136/78 (97) 96 06/24/20 04:00 Mechanical Ventilator 15.0 06/24/20 03:32 66 06/24/20 02:33 64 24 40 06/24/20 01:08 71 30 96 Mechanical Ventilator 40 06/24/20 01:07 71 30 40 06/24/20 00:00 Mechanical Ventilator 15.0 06/24/20 00:00 96.1 74 17 139/82 (101) 96 06/23/20 23:33 63 06/23/20 23:08 65 22 40 Intake and Output 06/23/20 06/24/20 19:00 07:00 Intake Total 740 ml 630 ml Output Total 2005 ml 10 ml Balance -1265 ml 620 ml Free Water 300 ml 150 ml Tube Feeding 440 ml 480 ml Output Urine Total 5 ml 10 ml Hemodialysis UF 2000 ml # Bowel Movements 2 4 Laboratory Tests 06/23/20 23:37: POC Whole Blood Glucose 157H 06/24/20 03:20: Sodium Level 135L, Potassium Level 3.7, Chloride Level 99, Carbon Dioxide Level 33H, Anion Gap 3L, Blood Urea Nitrogen 50H, Creatinine 3.2H, Estimat Glomerular Filtration Rate 24.7, Glucose Level 164H, Uric Acid 4.2, Calcium Level 8.5, Phosphorus Level 2.3L, Magnesium Level 2.6H, Total Bilirubin 0.4, Gamma Glutamyl Transpeptidase 158H, Aspartate Amino Transf (AST/SGOT) 1395H, Alanine Aminotransferase (ALT/SGPT) 1038H, Alkaline Phosphatase 1011H, Total Protein 7.5, Albumin 1.5L, Globulin 6.0, Albumin/Globulin Ratio 0.2L, Thyroid Stimulating Hormone (TSH) 13.762H, Free Thyroxine 1.03, Hepatitis B Surface Antibody, Quant [Pending], Hepatitis C Antibody [Pending] 06/24/20 04:00: Urine Color Yellow, Urine Appearance Cloudy, Urine pH 5, Urine Specific [place] 1.020, Urine Protein 4+H, Urine Glucose (UA) Negative, Urine Ketones 1+H, Urine Blood 5+H, Urine Nitrite Negative, Urine Bilirubin Negative, Urine Urobilinogen Normal, Urine Leukocyte Esterase 3+H, Urine RBC TntcH, Urine WBC TntcH, Urine Squamous Epithelial Cells None, Urine Bacteria ManyH, Urine Coarse Granular Casts 2-4H 06/24/20 05:00: POC Whole Blood Glucose 159H 06/24/20 12:03: POC Whole Blood Glucose 170H 06/24/20 17:31: POC Whole Blood Glucose [Pending] Height (Feet): 5 Height (Inches): 8.00 Weight (Pounds): 143 Assessment/Plan Status: progressing Fco Stringer MD Jun 24, 2020 21:34
--- NOTE | 2020-06-24 22:44 | Consultation ---
DATE OF CONSULTATION: 06/24/2020 GASTROLOGY CONSULTATION CHIEF COMPLAINT: I have been asked to see this patient by Dr. Neida Apple for evaluation of abnormal liver tests. HISTORY OF PRESENT ILLNESS: The patient is a 54-year-old man from a assisted with chronic tracheostomy and gastrostomy, who was brought in due to high white counts and anemia. He is unable to provide any history and most of the information is available from the chart. He has been noted to have abnormal liver test panel which is gradually climbing, which prompted this consultation today for gastrointestinal consultation. The patient has no chart history of any liver problems in the past. He did have an ultrasound of the liver on this admission, which was unremarkable. The Doppler of hepatic vessels was also negative. Hepatitis B and C markers have been ordered and are pending. PAST MEDICAL HISTORY: History of left [id number] amputation, chronic respiratory encephalopathy, anemia, status post gastrostomy, and status post tracheostomy. FAMILY HISTORY: Unavailable. SOCIAL HISTORY: The patient is from a assisted and otherwise no social history is available. REVIEW OF SYSTEMS: Unobtainable PHYSICAL EXAMINATION; confused, unresponsive man, seen in his room, with tracheostomy and restraints.HEENT: Normocephalic and atraumatic. NECK: Showed tracheostomy and catheter. CHEST: Coarse breath sounds. CARDIOVASCULAR: Regular rate. ABDOMEN: Soft with gastrostomy tube. EXTREMITIES: [id number] amputation on the left. LABORATORY DATA: Noted. ASSESSMENT: This patient has rising transaminitis over the last few days since he has been admitted to the hospital of unclear etiology. His CPK is normal; and therefore, rhabdomyolysis is not likely. Hepatitis B and C markers have been ordered and pending. Hepatitis A should also be added. Other infectious pathologies include CMV, herpes, and mono, which can be added to the laboratory profile. Another possibility is cholecystitis, which can be further evaluated with a HIDA scan. His exam is inconclusive since he has some degree of altered mental status. Vascular pathology of his liver is less likely given the negative ultrasound. I would also hold his Seroquel since there are some reports of Seroquel hepatotoxicity. His liver tests will be followed very closely. RECOMMENDATIONS: Per above discussion and per orders written in the chart. Thank you for asking me to participate in care of this patient. Fco Stringer M.D. DR: CAROL JOB#: [id number] CC: CASIMIRO
[2020-06-25] VITALS: BP 135/70
--- NOTE | 2020-06-25 02:00 | NUR ---
NURSE NOTES: repositioned pt, oral care given. untied bilateral arms soft wrist restrains and stretched bilateral arms. but pt is trying to remove safe devices. attempt fail to D/C restrain. no SOB noted at this time. no active bleeding noted. calll light within reach. will continue to monitor pt.
[2020-06-25 04:00] VITALS: BP 131/72
--- NOTE | 2020-06-25 04:29 | NUR ---
NURSE NOTES: 2 large BM noted. will clean pt.
--- NOTE | 2020-06-25 04:30 | NUR ---
NURSE NOTES: new gown, new blanket provided. pt has 2 large BM, brown, without bleeding noted at this time. repositioned Q 2hrs. dressing sites chagned for pressure ulcer. pt states no pain at this time. call light within reach. untied bilateral wrist restrains to stretch pt's arms.
[2020-06-25] MEDS: Aluminum Hydroxide Gel Susp 15ml GT SCH ×4 (04:39→21:16)
[2020-06-25 05:48] LABS: BASOPHILS % (AUTO) 0.2 % (0.0-2.0); EOSINOPHILS % (AUTO) 2.6 % (0.0-3.0); HEMATOCRIT 26.5 % (42.0-52.0); HEMOGLOBIN 8.1 G/DL (14.2-18.0); LYMPHOCYTES % (AUTO) 9.5 % (20.0-45.0); MEAN CORPUSCULAR VOLUME 95 FL (80-99); MONOCYTES % (AUTO) 6.2 % (1.0-10.0); NEUTROPHILS % (AUTO) 81.5 % (45.0-75.0); PLATELET COUNT 160 K/UL (150-450); RED BLOOD COUNT 2.78 M/UL (4.70-6.10); RED CELL DISTRIBUTION WIDTH 15.8 % (11.6-14.8); WHITE BLOOD COUNT 10.9 K/UL (4.8-10.8)
[2020-06-25 05:54] LABS: CALCIUM 8.5 MG/DL (8.5-10.1); POTASSIUM 3.9 MMOL/L (3.5-5.1)
--- NOTE | 2020-06-25 06:20 | NUR ---
NURSE NOTES: Dr. Tan at the bedside, and no new order regarding today's lab
--- NOTE | 2020-06-25 06:30 | General Progress Note ---
Subjective ROS Limited/Unobtainable: Yes Allergies: Coded Allergies: No Known Allergies (Unverified , 06/13/20) Subjective events noted interval notes reviewed glucose values are stable Item Value Date Time Bedside Blood Glucose 115 mg/dl 06/25/20 0600 Bedside Blood Glucose 155 mg/dl H 06/25/20 0000 Bedside Blood Glucose 189 mg/dl H 06/24/20 1800 Bedside Blood Glucose 170 mg/dl H 06/24/20 1200 Bedside Blood Glucose 159 mg/dl H 06/24/20 0600 Bedside Blood Glucose 157 mg/dl H 06/24/20 0000 Objective Last 24 Hour Vital Signs Date Time Temp Pulse Resp B/P (MAP) Pulse Ox O2 Delivery O2 Flow Rate FiO2 06/25/20 04:48 66 26 50 06/25/20 04:00 Mechanical Ventilator 06/25/20 04:00 96.8 67 20 131/72 (91) 100 06/25/20 04:00 40 06/25/20 03:49 67 06/25/20 02:41 71 29 50 06/25/20 00:40 75 32 50 06/25/20 00:00 Mechanical Ventilator 06/25/20 00:00 96.6 60 25 135/70 (91) 100 06/25/20 00:00 40 06/25/20 00:00 69 06/24/20 22:37 68 22 50 06/24/20 20:35 72 32 50 06/24/20 20:00 96.4 68 21 145/77 (99) 100 06/24/20 20:00 40 06/24/20 20:00 Mechanical Ventilator 06/24/20 18:38 71 30 50 06/24/20 17:06 71 32 40 06/24/20 16:00 40 06/24/20 16:00 69 06/24/20 16:00 Mechanical Ventilator 15.0 06/24/20 15:39 95.9 68 21 149/86 (107) 100 06/24/20 15:14 68 30 40 06/24/20 13:13 69 33 40 06/24/20 12:00 67 06/24/20 11:59 Mechanical Ventilator 15.0 06/24/20 11:57 40 06/24/20 11:52 98.4 66 21 136/73 (94) 100 06/24/20 11:00 67 27 40 06/24/20 08:33 62 26 40 06/24/20 08:00 58 06/24/20 08:00 40 06/24/20 08:00 Mechanical Ventilator 15.0 06/24/20 07:45 93.2 58 17 136/74 (94) 95 06/24/20 06:45 62 25 40 Intake and Output 06/24/20 06/25/20 19:00 07:00 Intake Total 350 ml Output Total 500 ml Balance -150 ml Free Water 150 ml Tube Feeding 200 ml Output Urine Total 500 ml # Bowel Movements 3 2 Laboratory Tests 06/24/20 12:03: POC Whole Blood Glucose 170H 06/24/20 17:31: POC Whole Blood Glucose [Pending] 06/25/20 02:36: POC Whole Blood Glucose [Pending] 06/25/20 04:35: White Blood Count 10.9H, Red Blood Count 2.78L, Hemoglobin 8.1L, Hematocrit 26.5L, Mean Corpuscular Volume 95, Mean Corpuscular Hemoglobin 29.2, Mean Corpuscular Hemoglobin Concent 30.6L, Red Cell Distribution Width 15.8H, Platelet Count 160, Mean Platelet Volume 11.2H, Neutrophils (%) (Auto) 81.5H, Lymphocytes (%) (Auto) 9.5L, Monocytes (%) (Auto) 6.2, Eosinophils (%) (Auto) 2.6, Basophils (%) (Auto) 0.2, Sodium Level 133L, Potassium Level 3.9, Chloride Level 100, Carbon Dioxide Level 33H, Anion Gap 0L, Blood Urea Nitrogen 64H, Creatinine 4.0H, Estimat Glomerular Filtration Rate 19.1, Glucose Level 126H, Calcium Level 8.5, Hepatitis A IgM Antibody [Pending], Herpes Simplex Virus I IgM Ab (IFA) [Pending], Herpes Simplex Virus II IgM Ab (IFA [Pending], Monoscreen [Pending] 06/25/20 04:44: POC Whole Blood Glucose 115H Height (Feet): 5 Height (Inches): 8.00 Weight (Pounds): 143 General Appearance: other - tracheostomy Cardiovascular: normal rate Respiratory/Chest: decreased breath sounds Abdomen: normal bowel sounds Objective Current Medications Medications (Trade) Dose Ordered Sig/Maryjane Route PRN Reason Start Time Stop Time Status Last Admin Dose Admin Acetaminophen (Tylenol) 650 mg Q4H PRN GT Mild Pain (Pain Scale 1-3) 06/18/20 23:00 07/18/20 22:59 Acetaminophen (Tylenol) 650 mg Q4HR PRN GT FEVER 06/14/20 09:45 07/14/20 09:44 06/19/20 20:45 Aluminum Hydroxide (Amphojel) 1,920 mg Q6H GT 06/17/20 10:00 07/17/20 09:59 06/24/20 15:14 Ascorbic Acid (Vitamin C) 500 mg DAILY ORAL 06/16/20 09:00 07/16/20 08:59 06/24/20 08:04 Chlorhexidine Gluconate (Inés-Hex 2%) 1 applic DAILY@199906/21/20 20:00 09/19/20 19:59 06/23/20 20:52 Dextrose (Dextrose 50%) 25 ml Q30M PRN IV Hypoglycemia 06/14/20 03:45 09/12/20 03:44 Dextrose (Dextrose 50%) 50 ml Q30M PRN IV Hypoglycemia 06/14/20 03:45 09/12/20 03:44 Epoetin Bonilla (Epoetin Bonilla-EPBX(NON ESRD)) 10,000 unit TUE-TUE-TUE SUBQ 06/18/20 21:00 09/16/20 20:59 06/23/20 21:06 Haloperidol Lactate (Haldol) 5 mg Q6H PRN IM Agitation 06/21/20 23:15 08/05/20 23:14 06/24/20 05:17 Levofloxacin (Levaquin) 500 mg Q48H GT 06/21/20 09:00 06/28/20 08:59 06/23/20 08:44 Linezolid (Zyvox) 600 mg EVERY 12 HOURS GT 06/23/20 21:00 07/18/20 23:59 06/24/20 08:05 Pantoprazole (Protonix) 40 mg EVERY 12 HOURS IVP 06/14/20 11:45 07/14/20 11:44 06/24/20 08:05 Quetiapine Fumarate (SEROqueL) 50 mg Q12HR GT 06/24/20 21:00 08/08/20 20:59 Assessment/Plan Problem List: (1) History of left below knee amputation ICD Codes: Z89.512 - Acquired absence of left leg below knee SNOMED: 055970117, 214158952894368 (2) Surgical wound dehiscence ICD Codes: T81.31XA - Disruption of external operation (surgical) wound, not elsewhere classified, initial encounter SNOMED: 30971434 (3) Hyperkalemia ICD Codes: E87.5 - Hyperkalemia SNOMED: 01182153 (4) Acute respiratory failure ICD Codes: J96.00 - Acute respiratory failure, unspecified whether with hypoxia or hypercapnia SNOMED: 99261871 Qualifiers: Qualified Codes: J96.02 - Acute respiratory failure with hypercapnia (5) Hypothyroidism ICD Codes: E03.9 - Hypothyroidism, unspecified SNOMED: 89453994 (6) Hyperglycemia ICD Codes: R73.9 - Hyperglycemia, unspecified SNOMED: 47978630 Status: progressing Assessment/Plan: continue levothyroxine 50 mcg daily repeat thyroid function in 1-2 weeks continue glucose monitoring Davy Ramos MD Jun 25, 2020 06:30
--- NOTE | 2020-06-25 06:51 | Hematology/Onc Progress Note ---
Assessment/Plan Assessment/Plan ASSESSMENT AND PLAN: #. Anemia that is likely due to chronic disease, r/o gi bleeding --> anemia panel has been reviewed, ferritin is >2000 --> no e/o hemolysis is noted --> transfuse on prn basis --> blood consent has been signed --> hgb 7.4-->7.4-->7-->6.7-->8-->7.5-->8.4-->9.1 --> folic acid is wnl --> 1 unit prbc 06/18 --> epogen has been started # Acute DVT in the distal right common femoral vein and profunda femoris vein. --> DUPLEX. Acute DVT in the distal right common femoral vein and profunda femoris vein. 2. No evidence of left lower extremity DVT. --> cannot anticoagulate at this time --> 06/17 s/p ivc filter placement --> hold off anticoag # Leukocytosis is likely due to b/l infiltrates --> on abx as per id -> ABX yolis/vanc-->yolis/linezolid--> yolis/levaq --> continue trend --> wbc 15-->12->9.5 # Respiratory failure in this patient with vent-dependent respiratory failure. 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 # Dysphagia --> status post PEG placement. # Renal failure. -> per Dr. Honeycutt. # Hyperkalemia and kayxelate as needed. # Dvt ppx scds Appreciate consultation and angela RN Subjective Constitutional: Denies: no symptoms, chills, fever, malaise, weakness, other Cardiovascular: Denies: no symptoms, chest pain, edema, irregular heart rate, lightheadedness, palpitations, syncope, other Respiratory: Denies: no symptoms, cough, shortness of breath, SOB with excertion, SOB at rest, sputum, wheezing, other Genitourinary: Denies: no symptoms, burning, discharge, frequency, flank pain, hematuria, incontinence, pain, urgency, other Neurologic/Psychiatric: Denies: no symptoms, anxiety, depressed, emotional problems, headache, numbness, paresthesia, pre-existing deficit, seizure, tingling, tremors, weakness, other Endocrine: Denies: no symptoms, excessive sweating, flushing, intolerance to cold, intolerance to heat, increased hunger, increased thirst, increased urine, unexplained weight gain, unexplained weight loss, other Allergies: Coded Allergies: No Known Allergies (Unverified , 06/13/20) Subjective 06/16 meds noted, labs reviewed, vent to trach, for ivc filter potentially 06/17 labs noted, meds reviewed, for ivc filter once covid neg 06/18 labs are noted, on vent and gt, 1 unit prbc ordered 06/19 labs pending, is s/p ivcf placement yesterday 06/20 for hd nontunneled cathter placement, no bleeding 06/22 labs noted, no bleeding, found down overnight, got ct brain, is neg 06/23 overnight is agitated and requiring restraints 06/24 labs noted, meds reviewed, hgb pending for am, restraints 06/25 labs reviewed, meds noted, no bleeding, hgb improved Objective Objective Current Medications Medications (Trade) Dose Ordered Sig/Maryjane Route PRN Reason Start Time Stop Time Status Last Admin Dose Admin Acetaminophen (Tylenol) 650 mg Q4H PRN GT Mild Pain (Pain Scale 1-3) 06/18/20 23:00 07/18/20 22:59 Acetaminophen (Tylenol) 650 mg Q4HR PRN GT FEVER 06/14/20 09:45 07/14/20 09:44 06/19/20 20:45 Aluminum Hydroxide (Amphojel) 1,920 mg Q6H GT 06/17/20 10:00 07/17/20 09:59 06/25/20 04:39 Ascorbic Acid (Vitamin C) 500 mg DAILY ORAL 06/16/20 09:00 07/16/20 08:59 06/24/20 08:04 Barium Sulfate (Readi-Cat 2) 450 ml NOW PRN ORAL Radiology Procedure 06/24/20 21:45 06/26/20 21:44 Chlorhexidine Gluconate (Inés-Hex 2%) 1 applic DAILY@1999 TOPIC 06/21/20 20:00 09/19/20 19:59 06/24/20 20:11 Dextrose (Dextrose 50%) 25 ml Q30M PRN IV Hypoglycemia 06/14/20 03:45 09/12/20 03:44 Dextrose (Dextrose 50%) 50 ml Q30M PRN IV Hypoglycemia 06/14/20 03:45 09/12/20 03:44 Epoetin Bonilla (Epoetin Bonilla-EPBX(NON ESRD)) 10,000 unit TUE- SUBQ 06/18/20 21:00 09/16/20 20:59 06/23/20 21:06 Haloperidol Lactate (Haldol) 5 mg Q6H PRN IM Agitation 06/21/20 23:15 08/05/20 23:14 06/24/20 05:17 Levofloxacin (Levaquin) 500 mg Q48H GT 06/21/20 09:00 06/28/20 08:59 06/23/20 08:44 Levothyroxine Sodium (Synthroid) 50 mcg DAILY@0630 ORAL 06/25/20 06:30 07/25/20 06:29 06/25/20 05:52 Linezolid (Zyvox) 600 mg EVERY 12 HOURS GT 06/23/20 21:00 07/18/20 23:59 06/24/20 20:11 Pantoprazole (Protonix) 40 mg EVERY 12 HOURS IVP 06/14/20 11:45 07/14/20 11:44 06/24/20 20:12 Last 24 Hour Vital Signs Date Time Temp Pulse Resp B/P (MAP) Pulse Ox O2 Delivery O2 Flow Rate FiO2 06/25/20 04:48 66 26 50 06/25/20 04:00 Mechanical Ventilator 06/25/20 04:00 96.8 67 20 131/72 (91) 100 06/25/20 04:00 40 06/25/20 03:49 67 06/25/20 02:41 71 29 50 06/25/20 00:40 75 32 50 06/25/20 00:00 Mechanical Ventilator 06/25/20 00:00 96.6 60 25 135/70 (91) 100 06/25/20 00:00 40 06/25/20 00:00 69 06/24/20 22:37 68 22 50 06/24/20 20:35 72 32 50 06/24/20 20:00 96.4 68 21 145/77 (99) 100 06/24/20 20:00 40 06/24/20 20:00 Mechanical Ventilator 06/24/20 18:38 71 30 50 06/24/20 17:06 71 32 40 06/24/20 16:00 40 06/24/20 16:00 69 06/24/20 16:00 Mechanical Ventilator 15.0 06/24/20 15:39 95.9 68 21 149/86 (107) 100 06/24/20 15:14 68 30 40 06/24/20 13:13 69 33 40 06/24/20 12:00 67 06/24/20 11:59 Mechanical Ventilator 15.0 06/24/20 11:57 40 06/24/20 11:52 98.4 66 21 136/73 (94) 100 06/24/20 11:00 67 27 40 06/24/20 08:33 62 26 40 06/24/20 08:00 58 06/24/20 08:00 40 06/24/20 08:00 Mechanical Ventilator 15.0 06/24/20 07:45 93.2 58 17 136/74 (94) 95 06/24/20 06:45 62 25 40 06/24/20 04:33 63 21 40 06/24/20 04:00 40 06/24/20 04:00 95.5 66 17 136/78 (97) 96 06/24/20 04:00 Mechanical Ventilator 15.0 06/24/20 03:32 66 06/24/20 02:33 64 24 40 06/24/20 01:08 71 30 96 Mechanical Ventilator 40 06/24/20 01:07 71 30 40 06/24/20 00:00 Mechanical Ventilator 15.0 06/24/20 00:00 96.1 74 17 139/82 (101) 96 06/23/20 23:33 63 06/23/20 23:08 65 22 40 06/23/20 20:43 67 31 40 06/23/20 20:00 96.4 68 17 133/77 (95) 96 06/23/20 20:00 50 06/23/20 20:00 Mechanical Ventilator 15.0 06/23/20 19:10 75 06/23/20 18:39 72 25 40 06/23/20 16:35 60 34 50 06/23/20 16:00 Mechanical Ventilator 15.0 06/23/20 16:00 55 06/23/20 16:00 50 06/23/20 15:41 97.1 62 17 131/79 (96) 96 06/23/20 15:05 58 21 50 06/23/20 13:10 60 27 50 06/23/20 12:00 50 06/23/20 12:00 Mechanical Ventilator 15.0 06/23/20 12:00 97.3 55 21 128/72 (90) 97 06/23/20 12:00 55 06/23/20 10:50 60 25 50 06/23/20 09:35 56 26 50 06/23/20 08:00 57 06/23/20 08:00 50 06/23/20 08:00 Mechanical Ventilator 15.0 06/23/20 08:00 96.5 58 18 132/75 (94) 100 Intake and Output 06/24/20 06/25/20 19:00 07:00 Intake Total 390 ml Output Total 700 ml Balance -310 ml Free Water 190 ml Tube Feeding 200 ml Output Urine Total 700 ml # Bowel Movements 3 4 Labs Test 06/22/20 11:59 06/22/20 16:54 06/22/20 23:23 06/23/20 04:11 POC Whole Blood Glucose 143 MG/DL (74-106) 160 MG/DL (74-106) 147 MG/DL (74-106) White Blood Count 9.5 K/UL (4.8-10.8) Red Blood Count 2.89 M/UL (4.70-6.10) Hemoglobin 8.4 G/DL (14.2-18.0) Hematocrit 27.9 % (42.0-52.0) Mean Corpuscular Volume 97 FL (80-99) Mean Corpuscular Hemoglobin 29.2 PG (27.0-31.0) Mean Corpuscular Hemoglobin Concent 30.2 G/DL (32.0-36.0) Red Cell Distribution Width 16.3 % (11.6-14.8) Platelet Count 199 K/UL (150-450) Mean Platelet Volume 9.4 FL (6.5-10.1) Neutrophils (%) (Auto) 74.8 % (45.0-75.0) Lymphocytes (%) (Auto) 10.2 % (20.0-45.0) Monocytes (%) (Auto) 9.4 % (1.0-10.0) Eosinophils (%) (Auto) 5.2 % (0.0-3.0) Basophils (%) (Auto) 0.4 % (0.0-2.0) Sodium Level 138 MMOL/L (136-145) Potassium Level 3.8 MMOL/L (3.5-5.1) Chloride Level 103 MMOL/L (98-107) Carbon Dioxide Level 32 MMOL/L (21-32) Anion Gap 3 mmol/L (5-15) Blood Urea Nitrogen 77 mg/dL (7-18) Creatinine 4.3 MG/DL (0.55-1.30) Estimat Glomerular Filtration Rate 17.6 mL/min (>60) Glucose Level 184 MG/DL (74-106) Uric Acid 6.1 MG/DL (2.6-7.2) Calcium Level 8.7 MG/DL (8.5-10.1) Phosphorus Level 3.5 MG/DL (2.5-4.9) Magnesium Level 2.8 MG/DL (1.8-2.4) Total Bilirubin 0.4 MG/DL (0.2-1.0) Gamma Glutamyl Transpeptidase 163 U/L (5-85) Aspartate Amino Transf (AST/SGOT) 1776 U/L (15-37) Alanine Aminotransferase (ALT/SGPT) 1006 U/L (12-78) Alkaline Phosphatase 1085 U/L (46-116) Total Creatine Kinase 88 U/L (26-308) C-Reactive Protein, Quantitative 7.9 mg/dL (0.00-0.90) Pro-B-Type Natriuretic Peptide > 09370 pg/mL (0-125) Total Protein 7.5 G/DL (6.4-8.2) Albumin 1.6 G/DL (3.4-5.0) Globulin 5.9 g/dL Albumin/Globulin Ratio 0.3 (1.0-2.7) Lipase 385 U/L (73-393) Hepatitis B Surface Antigen Negative (NEGATIVE) Test 06/23/20 05:11 06/23/20 12:15 06/23/20 16:58 06/23/20 23:37 POC Whole Blood Glucose 179 MG/DL (74-106) 191 MG/DL (74-106) 129 MG/DL (74-106) 157 MG/DL (74-106) Test 06/24/20 03:20 06/24/20 04:00 06/24/20 05:00 06/24/20 12:03 Sodium Level 135 MMOL/L (136-145) Potassium Level 3.7 MMOL/L (3.5-5.1) Chloride Level 99 MMOL/L (98-107) Carbon Dioxide Level 33 MMOL/L (21-32) Anion Gap 3 mmol/L (5-15) Blood Urea Nitrogen 50 mg/dL (7-18) Creatinine 3.2 MG/DL (0.55-1.30) Estimat Glomerular Filtration Rate 24.7 mL/min (>60) Glucose Level 164 MG/DL (74-106) Uric Acid 4.2 MG/DL (2.6-7.2) Calcium Level 8.5 MG/DL (8.5-10.1) Phosphorus Level 2.3 MG/DL (2.5-4.9) Magnesium Level 2.6 MG/DL (1.8-2.4) Total Bilirubin 0.4 MG/DL (0.2-1.0) Gamma Glutamyl Transpeptidase 158 U/L (5-85) Aspartate Amino Transf (AST/SGOT) 1395 U/L (15-37) Alanine Aminotransferase (ALT/SGPT) 1038 U/L (12-78) Alkaline Phosphatase 1011 U/L (46-116) Total Protein 7.5 G/DL (6.4-8.2) Albumin 1.5 G/DL (3.4-5.0) Globulin 6.0 g/dL Albumin/Globulin Ratio 0.2 (1.0-2.7) Thyroid Stimulating Hormone (TSH) 13.762 uiU/mL (0.358-3.740) Free Thyroxine 1.03 NG/DL (0.76-1.46) Urine Color Yellow Urine Appearance Cloudy Urine pH 5 (4.5-8.0) Urine Specific [place] 1.020 (1.005-1.035) Urine Protein 4+ (NEGATIVE) Urine Glucose (UA) Negative (NEGATIVE) Urine Ketones 1+ (NEGATIVE) Urine Blood 5+ (NEGATIVE) Urine Nitrite Negative (NEGATIVE) Urine Bilirubin Negative (NEGATIVE) Urine Urobilinogen Normal MG/DL (0.0-1.0) Urine Leukocyte Esterase 3+ (NEGATIVE) Urine RBC Tntc /HPF (0 - 0) Urine WBC Tntc /HPF (0 - 0) Urine Squamous Epithelial Cells None /LPF (NONE/OCC) Urine Bacteria Many /HPF (NONE) Urine Coarse Granular Casts 2-4 /LPF (NONE) POC Whole Blood Glucose 159 MG/DL (74-106) 170 MG/DL (74-106) Test 06/24/20 17:31 06/25/20 02:36 06/25/20 04:35 06/25/20 04:44 White Blood Count 10.9 K/UL (4.8-10.8) Red Blood Count 2.78 M/UL (4.70-6.10) Hemoglobin 8.1 G/DL (14.2-18.0) Hematocrit 26.5 % (42.0-52.0) Mean Corpuscular Volume 95 FL (80-99) Mean Corpuscular Hemoglobin 29.2 PG (27.0-31.0) Mean Corpuscular Hemoglobin Concent 30.6 G/DL (32.0-36.0) Red Cell Distribution Width 15.8 % (11.6-14.8) Platelet Count 160 K/UL (150-450) Mean Platelet Volume 11.2 FL (6.5-10.1) Neutrophils (%) (Auto) 81.5 % (45.0-75.0) Lymphocytes (%) (Auto) 9.5 % (20.0-45.0) Monocytes (%) (Auto) 6.2 % (1.0-10.0) Eosinophils (%) (Auto) 2.6 % (0.0-3.0) Basophils (%) (Auto) 0.2 % (0.0-2.0) Sodium Level 133 MMOL/L (136-145) Potassium Level 3.9 MMOL/L (3.5-5.1) Chloride Level 100 MMOL/L (98-107) Carbon Dioxide Level 33 MMOL/L (21-32) Anion Gap 0 mmol/L (5-15) Blood Urea Nitrogen 64 mg/dL (7-18) Creatinine 4.0 MG/DL (0.55-1.30) Estimat Glomerular Filtration Rate 19.1 mL/min (>60) Glucose Level 126 MG/DL (74-106) Calcium Level 8.5 MG/DL (8.5-10.1) POC Whole Blood Glucose 115 MG/DL (74-106) Height (Feet): 5 Height (Inches): 8.00 Weight (Pounds): 143 Objective PHYSICAL EXAMINATION: VITAL SIGNS: reviewed HEAD AND NECK: Show status post tracheostomy. vent+ LUNGS: Coarse rhonchi and basilar rales. CARDIOVASCULAR: Shows irregular S1 and S2 with no gallop. ABDOMEN: Soft. Status post G-tube. EXTREMITIES: No pitting edema.++Left yasmina Jose Tan MD Jun 25, 2020 06:51
--- NOTE | 2020-06-25 07:41 | NUR ---
NURSE HAND-OFF REPORT: Important Events on Shift:please follow up Elevated WBC, low NA Patient Status: [stable] Diet: [NPO prior to procedure] Pending Orders: [n/a] Pending Results/Labs:[n/a] Pending MD notification:[n/a] Latest Vital Signs: Temperature 96.8 , Pulse 66 , B/P 131 /72 , Respiratory Rate 26 , O2 SAT 100 , Mechanical Ventilator, O2 Flow Rate 15.0 . Vital Sign Comment: [stable] EKG Rhythm: Sinus Rhythm Rhythm change?: N MD Notified?: Jennifer Lipscomb MD Response: No New Orders Received Latest Santiago Fall Score: 60 Fall Risk: High Risk Safety Measures: Call light Within Reach, Bed Alarm Zone 2, Side Rails Side Rails x3, Bed position Low and Locked. Fall Precautions: Yellow Socks Yellow Gown Door Sign Patient Fall Education Report given to {Alex RN and Nina White RN].
--- NOTE | 2020-06-25 07:45 | NUR ---
NURSE NOTES: Received report from MAX Jolly. Pt is asleep and appears to be in no respiratory/cardiac distress. Tele shows SR. Pt is on trach to vent, S8, AC 16, TV 500, PEEP 8, FiO2 50%. L FA 20g saline locked, flushing well and asymptomatic. GT feeding is off due to CT abd W/O contrast scheduled for later today. Will turn on Nephro 40cc/hr after procedure. Sparrow is asymptomatic and draining well to gravity. Bilateral soft wrist restraints is on; skin is intact and bilateral pulses are present. HOB is elevated, call light is within reach, bed is on lowest position and locked, side rails x3. Will continue to monitor.
[2020-06-25 08:00] VITALS: BP 131/95
[2020-06-25] MEDS: Levofloxacin 500mg tab GT SCH (09:11)
[2020-06-25] MEDS: Ascorbic Acid 500mg tab ORAL SCH (09:12)
[2020-06-25] MEDS: Pantoprazole Inj IVP SCH ×2 (09:12→21:16)
[2020-06-25] MEDS: Haloperidol 5mg/ml Inj IM PRN ×2 (09:30→18:17)
--- NOTE | 2020-06-25 09:31 | NUR ---
LICENSED EMBALMER NOTE HEATHER spoke shayy/ Dori from [facility] [phone] that the daughter has been the decision maker. Addendum: 06/25/20 at 0936 by KEILA ROMERO HEATHER attempted to call pt's daughter, Blanca Deal [phone], no answer, no vm option. Addendum: 06/25/20 at 1213 by KEILA ROMERO HEATHER attempted to call Blanca again, the call went straight to automatic message w/o vm option.
[2020-06-25] MEDS ORDERED: Morphine Sulfate 2mg/ml Inj(IV/IM USE ONLY) IVP SCH (11:00)
--- NOTE | 2020-06-25 11:09 | Pulmonology Progress Note ---
Subjective ROS Limited/Unobtainable: Yes Interval Events: FiO2 now 50%; Remains on vent. Constitutional: Reports: other - hypothermia HEENT: Repors: no symptoms Respiratory: Reports: no symptoms Cardiovascular: Reports: no symptoms Gastrointestinal/Abdominal: Reports: no symptoms Genitourinary: Reports: no symptoms Allergies: Coded Allergies: No Known Allergies (Unverified , 06/13/20) Objective Last 24 Hour Vital Signs Date Time Temp Pulse Resp B/P (MAP) Pulse Ox O2 Delivery O2 Flow Rate FiO2 06/25/20 09:10 66 21 50 06/25/20 08:00 96.1 66 20 131/95 (107) 100 06/25/20 08:00 Mechanical Ventilator 06/25/20 08:00 40 06/25/20 07:02 63 21 50 06/25/20 04:48 66 26 50 06/25/20 04:00 Mechanical Ventilator 06/25/20 04:00 96.8 67 20 131/72 (91) 100 06/25/20 04:00 40 06/25/20 03:49 67 06/25/20 02:41 71 29 50 06/25/20 00:40 75 32 50 06/25/20 00:00 Mechanical Ventilator 06/25/20 00:00 96.6 60 25 135/70 (91) 100 06/25/20 00:00 40 06/25/20 00:00 69 06/24/20 22:37 68 22 50 06/24/20 20:35 72 32 50 06/24/20 20:00 96.4 68 21 145/77 (99) 100 06/24/20 20:00 40 06/24/20 20:00 Mechanical Ventilator 06/24/20 18:38 71 30 50 06/24/20 17:06 71 32 40 06/24/20 16:00 40 06/24/20 16:00 69 06/24/20 16:00 Mechanical Ventilator 15.0 06/24/20 15:39 95.9 68 21 149/86 (107) 100 06/24/20 15:14 68 30 40 06/24/20 13:13 69 33 40 06/24/20 12:00 67 06/24/20 11:59 Mechanical Ventilator 15.0 06/24/20 11:57 40 06/24/20 11:52 98.4 66 21 136/73 (94) 100 Intake and Output 06/24/20 06/25/20 19:00 07:00 Intake Total 300 ml Output Total 700 ml Balance -400 ml Free Water 100 ml Tube Feeding 200 ml Output Urine Total 700 ml # Bowel Movements 3 4 General Appearance: no acute distress HEENT: status post trach Respiratory: chest wall non-tender, lungs clear Cardiovascular: normal peripheral pulses, normal rate Abdomen: normal bowel sounds Extremities: no cyanosis Microbiology Date/Time Source Procedure Growth Status 06/24/20 04:00 Urine,Clean Catch Urine Culture - Preliminary NO GROWTH Resulted Laboratory Tests 06/24/20 12:03: POC Whole Blood Glucose 170H 06/24/20 17:31: POC Whole Blood Glucose [Pending] 06/25/20 02:36: POC Whole Blood Glucose [Pending] 06/25/20 04:35: White Blood Count 10.9H, Red Blood Count 2.78L, Hemoglobin 8.1L, Hematocrit 26.5L, Mean Corpuscular Volume 95, Mean Corpuscular Hemoglobin 29.2, Mean Corpuscular Hemoglobin Concent 30.6L, Red Cell Distribution Width 15.8H, Platelet Count 160, Mean Platelet Volume 11.2H, Neutrophils (%) (Auto) 81.5H, Lymphocytes (%) (Auto) 9.5L, Monocytes (%) (Auto) 6.2, Eosinophils (%) (Auto) 2.6, Basophils (%) (Auto) 0.2, Sodium Level 133L, Potassium Level 3.9, Chloride Level 100, Carbon Dioxide Level 33H, Anion Gap 0L, Blood Urea Nitrogen 64H, Creatinine 4.0H, Estimat Glomerular Filtration Rate 19.1, Glucose Level 126H, Calcium Level 8.5, Hepatitis A IgM Antibody [Pending], Herpes Simplex Virus I IgM Ab (IFA) [Pending], Herpes Simplex Virus II IgM Ab (IFA [Pending], Monoscreen [Pending] 06/25/20 04:44: POC Whole Blood Glucose 115H Current Medications Medications (Trade) Dose Ordered Sig/Maryjane Route PRN Reason Start Time Stop Time Status Last Admin Dose Admin Acetaminophen (Tylenol) 650 mg Q4H PRN GT Mild Pain (Pain Scale 1-3) 06/18/20 23:00 07/18/20 22:59 Acetaminophen (Tylenol) 650 mg Q4HR PRN GT FEVER 11/7/20 09:45 07/14/20 09:44 06/19/20 20:45 Aluminum Hydroxide (Amphojel) 1,920 mg Q6H GT 06/17/20 10:00 07/17/20 09:59 06/25/20 09:12 Ascorbic Acid (Vitamin C) 500 mg DAILY ORAL 06/16/20 09:00 07/16/20 08:59 06/25/20 09:12 Barium Sulfate (Readi-Cat 2) 450 ml NOW PRN ORAL Radiology Procedure 06/24/20 21:45 06/26/20 21:44 06/25/20 09:19 Chlorhexidine Gluconate (Inés-Hex 2%) 1 applic DAILY@1999 TOPIC 06/21/20 20:00 09/19/20 19:59 06/24/20 20:11 Dextrose (Dextrose 50%) 25 ml Q30M PRN IV Hypoglycemia 06/14/20 03:45 09/12/20 03:44 Dextrose (Dextrose 50%) 50 ml Q30M PRN IV Hypoglycemia 06/14/20 03:45 09/12/20 03:44 Epoetin Bonilla (Epoetin Bonilla-EPBX(NON ESRD)) 10,000 unit TUE-TUE-TUE SUBQ 06/18/20 21:00 09/16/20 20:59 06/23/20 21:06 Haloperidol Lactate (Haldol) 5 mg Q6H PRN IM Agitation 06/21/20 23:15 08/05/20 23:14 06/25/20 09:30 Levofloxacin (Levaquin) 500 mg Q48H GT 06/21/20 09:00 06/28/20 08:59 06/25/20 09:11 Levothyroxine Sodium (Synthroid) 50 mcg DAILY@0630 ORAL 06/25/20 06:30 07/25/20 06:29 06/25/20 05:52 Linezolid (Zyvox) 600 mg EVERY 12 HOURS GT 06/23/20 21:00 07/18/20 23:59 06/25/20 09:11 Morphine Sulfate (Morphine Sulfate) 2 mg ONCE IVP 06/25/20 11:00 06/25/20 18:00 Pantoprazole (Protonix) 40 mg EVERY 12 HOURS IVP 06/14/20:45 07/14/20 11:44 06/25/20 09:12 Assessment/Plan Problems: (1) Acute respiratory failure Assessment/Plan IMPRESSION: 1. Chronic respiratory failure. 2. Hypoxemia. 3. Respiratory acidosis. 4. Anemia. 5. Leukocytosis. 6. DVT 7. S/p code blue 06/19/20 DISCUSSION: The patient's x-ray is markedly abnormal with bilateral infiltrates. I suspect he has pulmonary fibrosis. Latest CXR is unchanged; will repeat COVID 19 pcr and antigen both negative No anticoagulation for DVT due to anemia S/p IVC filter placement Continue assist-control mechanical ventilation; currently FiO2 reduced to 50%; SaO2 100%, broad-spectrum antibiotics. Transfusion as needed. Will decrease PEEP to 5;will attempt to decrease FiO2 to 40% S/p HD WIll decrease FiO2 as tolerated I will follow carefully. Hugo Carl Omar Syed MD Jun 25, 2020 11:09
--- NOTE | 2020-06-25 11:30 | NUR ---
NURSE NOTES:ct of abd and pelvis done.PT TOLERATED WELL THE PROCEDURE.
--- NOTE | 2020-06-25 11:35 | NUR ---
NURSE NOTES: PT RECEIVING HIDA-SCAN PROCEDURE AT THIS TIME . TOLERATING WELL . NO ACUTE DISTRESS NOTED AT THIS TIME. WILL CONT TO MONITOR.
[2020-06-25 12:00] VITALS: BP 116/67
--- NOTE | 2020-06-25 12:30 | NUR ---
NURSE NOTES: Dr Dubois at bedside. Alerted of high BUN/Cr and low urine output. MD ordered HD for tomorrow. Will continue to monitor.
--- NOTE | 2020-06-25 12:45 | NUR ---
NURSE NOTES:HIDA SCAN COMPLETED , PT TOLERATED WELL PROCEDURE .PT ESCORTED BACK TO HIS ROOM.NO ACUTE DISTRESS NOTED AT THIS TIME .WILL CONT TO MONITOR.
--- NOTE | 2020-06-25 12:53 | Cardiac Electrophysiology PN ---
Assessment/Plan Assessment/Plan 1. Vent-dependent respirator failure. S/P tracheostomy. On 40% Fio2 Chest x-ray extensive bilateral pneumonia or ARDS. Off isolation EF 50%. Ruled out for MT. BNP 05121. On iv Abx 2. Tachycardia, likely due to respiratory failure. 3. Right femoral vein DVT. S/P IVC filter 06/18 4. Dysphagia, status post PEG placement. 5. Renal failure. S/P Right IJ Iron and HD by Dr. Honeycutt. 6. Severe anemia, S/P PRBC 7. High LFTs, Getting CT abdomen and pelvis and HIDA FU Dr Myek VILLALTA RN Subjective Subjective On the Vent off isolation. On 40% Fio2 and PEEP. S/P IVC filter and PRBC S/P Right IJ Iron and first HD 06/21/[address] abdomen and pelvis and HIDA scan Objective Last 24 Hour Vital Signs Date Time Temp Pulse Resp B/P (MAP) Pulse Ox O2 Delivery O2 Flow Rate FiO2 06/25/20 12:00 Mechanical Ventilator 06/25/20 12:00 40 06/25/20 09:10 66 21 50 06/25/20 08:00 96.1 66 20 131/95 (107) 100 06/25/20 08:00 Mechanical Ventilator 06/25/20 08:00 40 06/25/20 07:57 63 06/25/20 07:02 63 21 50 06/25/20 04:48 66 26 50 06/25/20 04:00 Mechanical Ventilator 06/25/20 04:00 96.8 67 20 131/72 (91) 100 06/25/20 04:00 40 06/25/20 03:49 67 06/25/20 02:41 71 29 50 06/25/20 00:40 75 32 50 06/25/20 00:00 Mechanical Ventilator 06/25/20 00:00 96.6 60 25 135/70 (91) 100 06/25/20 00:00 40 06/25/20 00:00 69 06/24/20 22:37 68 22 50 06/24/20 20:35 72 32 50 06/24/20 20:00 96.4 68 21 145/77 (99) 100 06/24/20 20:00 40 06/24/20 20:00 Mechanical Ventilator 06/24/20 18:38 71 30 50 06/24/20 17:06 71 32 40 06/24/20 16:00 40 06/24/20 16:00 69 06/24/20 16:00 Mechanical Ventilator 15.0 06/24/20 15:39 95.9 68 21 149/86 (107) 100 06/24/20 15:14 68 30 40 06/24/20 13:13 69 33 40 Intake and Output 06/24/20 06/25/20 19:00 07:00 Intake Total 300 ml Output Total 700 ml Balance -400 ml Free Water 100 ml Tube Feeding 200 ml Output Urine Total 700 ml # Bowel Movements 3 4 Laboratory Tests Test 06/24/20 17:31 06/25/20 02:36 06/25/20 04:35 06/25/20 04:44 POC Whole Blood Glucose Pending Pending 115 MG/DL (74-106) H White Blood Count 10.9 K/UL (4.8-10.8) H Red Blood Count 2.78 M/UL (4.70-6.10) L Hemoglobin 8.1 G/DL (14.2-18.0) L Hematocrit 26.5 % (42.0-52.0) L Mean Corpuscular Volume 95 FL (80-99) Mean Corpuscular Hemoglobin 29.2 PG (27.0-31.0) Mean Corpuscular Hemoglobin Concent 30.6 G/DL (32.0-36.0) L Red Cell Distribution Width 15.8 % (11.6-14.8) H Platelet Count 160 K/UL (150-450) Mean Platelet Volume 11.2 FL (6.5-10.1) H Neutrophils (%) (Auto) 81.5 % (45.0-75.0) H Lymphocytes (%) (Auto) 9.5 % (20.0-45.0) L Monocytes (%) (Auto) 6.2 % (1.0-10.0) Eosinophils (%) (Auto) 2.6 % (0.0-3.0) Basophils (%) (Auto) 0.2 % (0.0-2.0) Sodium Level 133 MMOL/L (136-145) L Potassium Level 3.9 MMOL/L (3.5-5.1) Chloride Level 100 MMOL/L (98-107) Carbon Dioxide Level 33 MMOL/L (21-32) H Anion Gap 0 mmol/L (5-15) L Blood Urea Nitrogen 64 mg/dL (7-18) H Creatinine 4.0 MG/DL (0.55-1.30) H Estimat Glomerular Filtration Rate 19.1 mL/min (>60) Glucose Level 126 MG/DL (74-106) H Calcium Level 8.5 MG/DL (8.5-10.1) Hepatitis A IgM Antibody Pending Herpes Simplex Virus I IgM Ab (IFA) Pending Herpes Simplex Virus II IgM Ab (IFA Pending Monoscreen Pending Microbiology Date/Time Source Procedure Growth Status 06/24/20 04:00 Urine,Clean Catch Urine Culture - Preliminary NO GROWTH Resulted Objective HEAD AND NECK: Status post tracheostomy. Right IJ Iron in place LUNGS: Coarse rhonchi and basilar rales. CARDIOVASCULAR: Shows irregular S1 and S2 with no gallop. ABDOMEN: Soft. Status post G-tube. EXTREMITIES: No pitting edema. Lance Mcguire MD Jun 25, 2020 12:53
--- NOTE | 2020-06-25 13:00 | NUR ---
NURSE NOTES: Pt's temperature was 90.9F on axillary. Skin is warm and dry, and cap refill is <3s. Pt was given blankets and monitored for hypothermia. Will continue to monitor.
--- NOTE | 2020-06-25 13:29 | Surgery Progress Note ---
Surgery Progress Note Subjective Additional Comments no acute events labs noted exam stable no n/v Objective Last 24 Hour Vital Signs Date Time Temp Pulse Resp B/P (MAP) Pulse Ox O2 Delivery O2 Flow Rate FiO2 06/25/20 12:00 Mechanical Ventilator 06/25/20 12:00 40 06/25/20 09:10 66 21 50 06/25/20 08:00 96.1 66 20 131/95 (107) 100 06/25/20 08:00 Mechanical Ventilator 06/25/20 08:00 40 06/25/20 07:57 63 06/25/20 07:02 63 21 50 06/25/20 04:48 66 26 50 06/25/20 04:00 Mechanical Ventilator 06/25/20 04:00 96.8 67 20 131/72 (91) 100 06/25/20 04:00 40 06/25/20 03:49 67 06/25/20 02:41 71 29 50 06/25/20 00:40 75 32 50 06/25/20 00:00 Mechanical Ventilator 06/25/20 00:00 96.6 60 25 135/70 (91) 100 06/25/20 00:00 40 06/25/20 00:00 69 06/24/20 22:37 68 22 50 06/24/20 20:35 72 32 50 06/24/20 20:00 96.4 68 21 145/77 (99) 100 06/24/20 20:00 40 06/24/20 20:00 Mechanical Ventilator 06/24/20 18:38 71 30 50 06/24/20 17:06 71 32 40 06/24/20 16:00 40 06/24/20 16:00 69 06/24/20 16:00 Mechanical Ventilator 15.0 06/24/20 15:39 95.9 68 21 149/86 (107) 100 06/24/20 15:14 68 30 40 I&O Intake and Output 06/24/20 06/25/20 19:00 07:00 Intake Total 300 ml Output Total 700 ml Balance -400 ml Free Water 100 ml Tube Feeding 200 ml Output Urine Total 700 ml # Bowel Movements 3 4 Cardiovascular: RSR Respiratory: decreased breath sounds Abdomen: soft, non-tender, present bowel sounds Extremities: no tenderness, no cyanosis Laboratory Tests Test 06/24/20 17:31 06/25/20 02:36 06/25/20 04:35 06/25/20 04:44 POC Whole Blood Glucose Pending Pending 115 MG/DL (74-106) H White Blood Count 10.9 K/UL (4.8-10.8) H Red Blood Count 2.78 M/UL (4.70-6.10) L Hemoglobin 8.1 G/DL (14.2-18.0) L Hematocrit 26.5 % (42.0-52.0) L Mean Corpuscular Volume 95 FL (80-99) Mean Corpuscular Hemoglobin 29.2 PG (27.0-31.0) Mean Corpuscular Hemoglobin Concent 30.6 G/DL (32.0-36.0) L Red Cell Distribution Width 15.8 % (11.6-14.8) H Platelet Count 160 K/UL (150-450) Mean Platelet Volume 11.2 FL (6.5-10.1) H Neutrophils (%) (Auto) 81.5 % (45.0-75.0) H Lymphocytes (%) (Auto) 9.5 % (20.0-45.0) L Monocytes (%) (Auto) 6.2 % (1.0-10.0) Eosinophils (%) (Auto) 2.6 % (0.0-3.0) Basophils (%) (Auto) 0.2 % (0.0-2.0) Sodium Level 133 MMOL/L (136-145) L Potassium Level 3.9 MMOL/L (3.5-5.1) Chloride Level 100 MMOL/L (98-107) Carbon Dioxide Level 33 MMOL/L (21-32) H Anion Gap 0 mmol/L (5-15) L Blood Urea Nitrogen 64 mg/dL (7-18) H Creatinine 4.0 MG/DL (0.55-1.30) H Estimat Glomerular Filtration Rate 19.1 mL/min (>60) Glucose Level 126 MG/DL (74-106) H Calcium Level 8.5 MG/DL (8.5-10.1) Hepatitis A IgM Antibody Pending Herpes Simplex Virus I IgM Ab (IFA) Pending Herpes Simplex Virus II IgM Ab (IFA Pending Monoscreen Pending Test 06/25/20 13:14 POC Whole Blood Glucose 84 MG/DL (74-106) Plan Problems: (1) Leukocytosis Assessment & Plan: 54-year-old male multiple comorbidities admitted for abnormal chest x-ray potentially pneumonia leukocytosis abnormal labs. Patient identified to have a prior left BKA surgical sutures still in place as well as a surgical sacral wound with sutures in place. Considerations of dehiscence being identified and potential etiology of infection. After evaluation unlikely source of infection though the sacral wound was looked to be dehiscing at the inferior aspect. No acute surgical mention at this time We will discussed care plan with PCP Recommend follow-up with initial surgeon considerations of removal of surgical sutures Care plan initiated worsening lft's US ordered ? shayla (2) Surgical wound dehiscence Assessment & Plan: Patient identified to have a left BKA surgical sutures in place flap looks like it is taken well no signs of infection at this time no signs of seroma hematoma or drainage. Unknown exact length or duration of potential prior left BKA and until then recommend leaving sutures in place as it may be too early though it does look well-healed. If able to obtain prior records we will be happy to remove sutures otherwise will need follow-up with primary surgeon furthermore patient identified to have a surgical wound in the sacral area seems he probably potentially had a stage IV sacral decubitus ulcer that had debridement and primary closure. Fortunately. Sutures are still in place and it looks like the inferior aspect may be slowly dehiscing. There is no significant drainage no foul odor no signs of active infection unknown if bone was palpable prior. Can consider removing surgical sutures but again would recommend obtaining prior records of possible prior to doing so. Also recommend following up with primary surgeon as this may need ongoing continued care. Will follow with recommendations and as information is available. Continue current care plan. Wash wounds daily with normal saline. Apply skin protectant Optifoam dressing. Turn every 2 hours. Offload pressure with pillows and air mattress. Nutritional optimization. (3) History of left below knee amputation (4) Malnutrition Assessment & Plan: DAILY ESTIMATED NEEDS: Needs based on Wound, critical care, underweight/ 55.5kg 25-33 (25-35 w/ HD) kcals/kg 4177-0176 (6802-6979) total kcals 1.25-2 g protein/kg 69-111 g total protein 25-30 mL/kg 7722-3527 total fluid mLs NUTRITION DIAGNOSIS: * Swallowing difficulty R/T respiratory status as evidenced by pt is trach/vent dep, PEG dep. CURRENT TF: Nepro @ 40ml/hr x24 hrs ENTERAL NUTRITION RECOMMENDATIONS: Nepro @ 40ml/hr x 24 hrs to provide 960ml, 1728kcal, 78g prot, 698ml free water * Maintain current TF * HOB over 30 degrees/ water flush per MD ADDITIONAL RECOMMENDATIONS: * Per SNF: HT=69" DN=446wmd -> rec daily calibrated bedscale wt * Monitor lytes: elev K-> now wnl, phos now low * Wound healing: RANDY BID + Nephrovite 1 tab qdaily * Monitor for bm, last bm 06/19, now 06/24 * W/ HD rec to add Prosource 1 pack qdaily for added 11g pro/day. (5) Anemia (6) KERRI (acute kidney injury) (7) Acute respiratory failure (8) Hyperkalemia (9) Anemia (10) Abnormal laboratory test result (11) Chronic respiratory failure Azar Mares Jun 25, 2020 13:29
--- NOTE | 2020-06-25 13:58 | Infectious Diseases Prog Note ---
Assessment/Plan Assessment/Plan IMPRESSION: Pneumonia with Pseudomonas & Stenotrophomonas Hypothermia COVID19 X 2: negative Ventilator-dependent respiratory failure, Diabetes mellitus type 2, Hypertension, History of left BKA, Hypertension, anemia, Major depression, Pressure ulcer, Elevated transaminase, Hyperkalemia. Anemia R leg DVT s/p IVC filter Sacral osteomyelitis Severe anemia Acute renal failure ESRD Hypercapnic respiratory failure RECOMMENDATION: Discontinue Levaquin Continue Linezolid until 07/18 Will f/u HIDA scan & CT scan of abdomen Case was D/W RN Subjective ROS Limited/Unobtainable: Yes Constitutional: Reports: other - hypothermic Neurologic: Reports: confusion, other - on restraint Allergies: Coded Allergies: No Known Allergies (Unverified , 06/13/20) Objective Last 24 Hour Vital Signs Date Time Temp Pulse Resp B/P (MAP) Pulse Ox O2 Delivery O2 Flow Rate FiO2 06/25/20 13:08 64 24 50 06/25/20 12:00 Mechanical Ventilator 06/25/20 12:00 90.9 67 20 116/67 (83) 100 06/25/20 12:00 40 06/25/20 09:10 66 21 50 06/25/20 08:00 96.1 66 20 131/95 (107) 100 06/25/20 08:00 Mechanical Ventilator 06/25/20 08:00 40 06/25/20 07:57 63 06/25/20 07:02 63 21 50 06/25/20 04:48 66 26 50 06/25/20 04:00 Mechanical Ventilator 06/25/20 04:00 96.8 67 20 131/72 (91) 100 06/25/20 04:00 40 06/25/20 03:49 67 06/25/20 02:41 71 29 50 06/25/20 00:40 75 32 50 06/25/20 00:00 Mechanical Ventilator 06/25/20 00:00 96.6 60 25 135/70 (91) 100 06/25/20 00:00 40 06/25/20 00:00 69 06/24/20 22:37 68 22 50 06/24/20 20:35 72 32 50 06/24/20 20:00 96.4 68 21 145/77 (99) 100 06/24/20 20:00 40 06/24/20 20:00 Mechanical Ventilator 06/24/20 18:38 71 30 50 06/24/20 17:06 71 32 40 06/24/20 16:00 40 06/24/20 16:00 69 06/24/20 16:00 Mechanical Ventilator 15.0 06/24/20 15:39 95.9 68 21 149/86 (107) 100 06/24/20 15:14 68 30 40 Height (Feet): 5 Height (Inches): 8.00 Weight (Pounds): 143 HEENT: status post trach Respiratory/Chest: lungs clear Cardiovascular: normal rate Abdomen: soft, non tender, other - GT feeding Extremities: no edema Neurologic/Psychiatric: other - sleeping Microbiology Date/Time Source Procedure Growth Status 06/24/20 04:00 Urine,Clean Catch Urine Culture - Preliminary NO GROWTH Resulted Laboratory Tests Test 06/24/20 17:31 06/25/20 02:36 06/25/20 04:35 06/25/20 04:44 POC Whole Blood Glucose Pending Pending 115 MG/DL (74-106) H White Blood Count 10.9 K/UL (4.8-10.8) H Red Blood Count 2.78 M/UL (4.70-6.10) L Hemoglobin 8.1 G/DL (14.2-18.0) L Hematocrit 26.5 % (42.0-52.0) L Mean Corpuscular Volume 95 FL (80-99) Mean Corpuscular Hemoglobin 29.2 PG (27.0-31.0) Mean Corpuscular Hemoglobin Concent 30.6 G/DL (32.0-36.0) L Red Cell Distribution Width 15.8 % (11.6-14.8) H Platelet Count 160 K/UL (150-450) Mean Platelet Volume 11.2 FL (6.5-10.1) H Neutrophils (%) (Auto) 81.5 % (45.0-75.0) H Lymphocytes (%) (Auto) 9.5 % (20.0-45.0) L Monocytes (%) (Auto) 6.2 % (1.0-10.0) Eosinophils (%) (Auto) 2.6 % (0.0-3.0) Basophils (%) (Auto) 0.2 % (0.0-2.0) Sodium Level 133 MMOL/L (136-145) L Potassium Level 3.9 MMOL/L (3.5-5.1) Chloride Level 100 MMOL/L (98-107) Carbon Dioxide Level 33 MMOL/L (21-32) H Anion Gap 0 mmol/L (5-15) L Blood Urea Nitrogen 64 mg/dL (7-18) H Creatinine 4.0 MG/DL (0.55-1.30) H Estimat Glomerular Filtration Rate 19.1 mL/min (>60) Glucose Level 126 MG/DL (74-106) H Calcium Level 8.5 MG/DL (8.5-10.1) Hepatitis A IgM Antibody Pending Herpes Simplex Virus I IgM Ab (IFA) Pending Herpes Simplex Virus II IgM Ab (IFA Pending Monoscreen Pending Test 06/25/20 13:14 POC Whole Blood Glucose 84 MG/DL (74-106) Current Medications Medications (Trade) Dose Ordered Sig/Maryjane Route PRN Reason Start Time Stop Time Status Last Admin Dose Admin Acetaminophen (Tylenol) 650 mg Q4H PRN GT Mild Pain (Pain Scale 1-3) 06/18/20 23:00 07/18/20 22:59 Acetaminophen (Tylenol) 650 mg Q4HR PRN GT FEVER 06/14/20 09:45 07/14/20 09:44 06/19/20 20:45 Aluminum Hydroxide (Amphojel) 1,920 mg Q6H GT 06/17/20 10:00 07/17/20 09:59 06/25/20 09:12 Ascorbic Acid (Vitamin C) 500 mg DAILY ORAL 06/16/20 09:00 07/16/20 08:59 06/25/20 09:12 Barium Sulfate (Readi-Cat 2) 450 ml NOW PRN ORAL Radiology Procedure 06/24/20 21:45 06/26/20 21:44 06/25/20 09:19 Chlorhexidine Gluconate (Inés-Hex 2%) 1 applic DAILY@1999 TOPIC 06/21/20 20:00 09/19/20 19:59 06/24/20 20:11 Dextrose (Dextrose 50%) 25 ml Q30M PRN IV Hypoglycemia 06/14/20 03:45 09/12/20 03:44 Dextrose (Dextrose 50%) 50 ml Q30M PRN IV Hypoglycemia 06/14/20 03:45 09/12/20 03:44 Epoetin Bonilla (Epoetin Bonilla-EPBX(NON ESRD)) 10,000 unit SUBQ 06/18/20 21:00 09/16/20 20:59 06/23/20 21:06 Haloperidol Lactate (Haldol) 5 mg Q6H PRN IM Agitation 06/21/20 23:15 08/05/20 23:14 06/25/20 09:30 Levofloxacin (Levaquin) 500 mg Q48H GT 06/21/20 09:00 06/28/20 08:59 06/25/20 09:11 Levothyroxine Sodium (Synthroid) 50 mcg DAILY@0630 ORAL 06/25/20 06:30 07/25/20 06:29 06/25/20 05:52 Linezolid (Zyvox) 600 mg EVERY 12 HOURS GT 06/23/20 21:00 07/18/20 23:59 06/25/20 09:11 Morphine Sulfate (Morphine Sulfate) 2 mg ONCE IVP 06/25/20 11:00 06/25/20 18:00 Pantoprazole (Protonix) 40 mg EVERY 12 HOURS IVP 06/14/20 11:45 07/14/20 11:44 06/25/20 09:12 Paul Amador MD Jun 25, 2020 13:58
--- NOTE | 2020-06-25 14:12 | Nephrology Progress Note ---
Assessment/Plan Problem List: (1) KERRI (acute kidney injury) (2) Acute respiratory failure (3) Chronic respiratory failure (4) Anemia (5) Hyperkalemia Assessment Acute on chronic renal failure Anemia Respiratory failure acute on chronic Respiratory acidosis and hypoxia Hyperkalemia Plan June 25: Labs reviewed. Will dialyze tomorrow. Continue per consultants. Check liver function enzymes. June 24: Dialyzed yesterday. Labs reviewed. Medication list reviewed. Liver enzymes remains elevated. Continue to monitor electrolytes renal parameters and LFTs. Hemodialysis in a.m. if needed. June 23: Patient will be dialyzed today again. Labs reviewed. Serum creatinine higher. Elevated liver enzymes persist. Patient full code. Continue per consultants. June 22: Patient dialyzed yesterday. Labs reviewed. Liver function tests and enzymes are elevated. Continue to monitor renal parameters and LFTs. Continue per consultants. Patient full code. June 21: Patient due for dialysis today. Labs and medication list reviewed. Discussed with RN. Continue to monitor renal parameters. June 20: Patient had an episode of bradycardia last night. Serum creatinine rising. Patient continues to have respiratory acidosis. Discussed with MAX Bond. Will order non tunneled dialysis catheter placement for initiation of dialysis treatment due to acute renal failure. Patient remains full code. I favor comfort care if bioethics consultation is sought and physicians on the team agreeable. June 19: No CHEM panel today. Low hemoglobin as of yesterday's lab results. Anemia management per Dr. Cueva. Continue to monitor renal parameters. June 18: Labs are reviewed. Hemoglobin lower. Creatinine higher. ABG not done yet. Patient full code. Continue per consultants. June 17: Labs reviewed. Hemoglobin low. Creatinine up to 3. Phosphorus levels elevated. Will start Amphojel via GT tube as a phosphorus binder. Mo nitor renal parameters. Check ABG. Continue per consultants. June 16: Labs reviewed. Serum creatinine mariana to 2.6. Abnormal electrolytes now normalized. Continue to monitor renal parameters and avoid nephrotoxic's. Continue to adjust pulmonary status as possible. June 15: ABG pH of 7.1. 2D echo suggestive of ejection fraction of 50%. Labs reviewed. Serum creatinine mariana. Will hold IV Lasix. Will give Kayexalate for high potassium and 1 amp of sodium bicarb. Albumin IV bolus given. Continue per consultants. Continue to monitor renal parameters. Kidney ultrasound ordered. June 14: As follow Pulmonary evaluation Sparrow catheter Hold IV fluid IV fluid, until 2D echo results available Kayexalate for high potassium IV Protonix 2D echocardiogram Anemia work-up More labs ordered Subjective ROS Limited/Unobtainable: Yes Objective Objective Last 24 Hour Vital Signs Date Time Temp Pulse Resp B/P (MAP) Pulse Ox O2 Delivery O2 Flow Rate FiO2 06/25/20 13:08 64 24 50 06/25/20 12:00 Mechanical Ventilator 06/25/20 12:00 90.9 67 20 116/67 (83) 100 06/25/20 12:00 40 06/25/20 09:10 66 21 50 06/25/20 08:00 96.1 66 20 131/95 (107) 100 06/25/20 08:00 Mechanical Ventilator 06/25/20 08:00 40 06/25/20 07:57 63 06/25/20 07:02 63 21 50 06/25/20 04:48 66 26 50 06/25/20 04:00 Mechanical Ventilator 06/25/20 04:00 96.8 67 20 131/72 (91) 100 06/25/20 04:00 40 06/25/20 03:49 67 06/25/20 02:41 71 29 50 06/25/20 00:40 75 32 50 06/25/20 00:00 Mechanical Ventilator 06/25/20 00:00 96.6 60 25 135/70 (91) 100 06/25/20 00:00 40 06/25/20 00:00 69 06/24/20 22:37 68 22 50 06/24/20 20:35 72 32 50 06/24/20 20:00 96.4 68 21 145/77 (99) 100 06/24/20 20:00 40 06/24/20 20:00 Mechanical Ventilator 06/24/20 18:38 71 30 50 06/24/20 17:06 71 32 40 06/24/20 16:00 40 06/24/20 16:00 69 06/24/20 16:00 Mechanical Ventilator 15.0 06/24/20 15:39 95.9 68 21 149/86 (107) 100 06/24/20 15:14 68 30 40 Intake and Output 06/24/20 06/25/20 19:00 07:00 Intake Total 300 ml Output Total 700 ml Balance -400 ml Free Water 100 ml Tube Feeding 200 ml Output Urine Total 700 ml # Bowel Movements 3 4 Laboratory Tests 06/24/20 17:31: POC Whole Blood Glucose [Pending] 06/25/20 02:36: POC Whole Blood Glucose [Pending] 06/25/20 04:35: White Blood Count 10.9H, Red Blood Count 2.78L, Hemoglobin 8.1L, Hematocrit 26.5L, Mean Corpuscular Volume 95, Mean Corpuscular Hemoglobin 29.2, Mean Corpuscular Hemoglobin Concent 30.6L, Red Cell Distribution Width 15.8H, Platelet Count 160, Mean Platelet Volume 11.2H, Neutrophils (%) (Auto) 81.5H, Lymphocytes (%) (Auto) 9.5L, Monocytes (%) (Auto) 6.2, Eosinophils (%) (Auto) 2.6, Basophils (%) (Auto) 0.2, Sodium Level 133L, Potassium Level 3.9, Chloride Level 100, Carbon Dioxide Level 33H, Anion Gap 0L, Blood Urea Nitrogen 64H, Creatinine 4.0H, Estimat Glomerular Filtration Rate 19.1, Glucose Level 126H, Calcium Level 8.5, Hepatitis A IgM Antibody [Pending], Herpes Simplex Virus I IgM Ab (IFA) [Pending], Herpes Simplex Virus II IgM Ab (IFA [Pending], Monoscreen [Pending] 06/25/20 04:44: POC Whole Blood Glucose 115H 06/25/20 13:14: POC Whole Blood Glucose 84 Height (Feet): 5 Height (Inches): 8.00 Weight (Pounds): 143 General Appearance: no apparent distress EENT: other - On mechanical ventilation Cardiovascular: normal rate Respiratory/Chest: decreased breath sounds Abdomen: distended Leonidas Honeycutt MD Jun 25, 2020 14:12
--- NOTE | 2020-06-25 15:20 | NUR ---
CASE MANAGEMENT:REVIEW 06/25/20 SI: AC/CHR RESP FAILURE. AC/CHR RENAL FAILURE TRACH/VENT DEPENDENT. HAS NON TUNNELED DIALYSIS CATHETER 96.1 66 20 131/95 100% ON 40% FIO2 VIA VENT H/H-8.1/26.5 BUN+64 CR+4.0 IS: EPOETIN SQ MWF VIT C GT QD IV PROTONIX Q12 ZYVOX GT Q12 : STEP DOWN UNIT DCP: FROM [facility] PLAN: NEXT HD 06/26/20
[2020-06-25 16:00] VITALS: BP 135/89
--- NOTE | 2020-06-25 17:07 | NUR ---
INSURANCE CLINICALS AND REVIEW FAXED TO [facility] [phone]
--- NOTE | 2020-06-25 18:17 | NUR ---
NURSE NOTES:PT VERY AGITATED AND TRYING TO PULL MEDICAL DEVICES , MEDICATED WITH HALDOL 5MG I.M FOR SEVERE AGITATION PER M.D ORDERS. WILL CONT TO MONITOR.
[2020-06-25] MEDS ORDERED: NS 275ml ONE (18:38)
--- NOTE | 2020-06-25 19:20 | General Progress Note ---
Subjective ROS Limited/Unobtainable: Yes Allergies: Coded Allergies: No Known Allergies (Unverified , 06/13/20) Objective Last 24 Hour Vital Signs Date Time Temp Pulse Resp B/P (MAP) Pulse Ox O2 Delivery O2 Flow Rate FiO2 06/25/20 19:12 64 18 40 06/25/20 16:38 63 24 50 06/25/20 16:00 93.1 61 20 135/89 (104) 100 06/25/20 16:00 Mechanical Ventilator 06/25/20 16:00 60 06/25/20 16:00 40 06/25/20 15:22 60 06/25/20 15:09 61 23 50 06/25/20 13:08 64 24 50 06/25/20 12:00 Mechanical Ventilator 06/25/20 12:00 90.9 67 20 116/67 (83) 100 06/25/20 12:00 40 06/25/20 09:10 66 21 50 06/25/20 08:00 96.1 66 20 131/95 (107) 100 06/25/20 08:00 Mechanical Ventilator 06/25/20 08:00 40 06/25/20 07:57 63 06/25/20 07:02 63 21 50 06/25/20 04:48 66 26 50 06/25/20 04:00 Mechanical Ventilator 06/25/20 04:00 96.8 67 20 131/72 (91) 100 06/25/20 04:00 40 06/25/20 03:49 67 06/25/20 02:41 71 29 50 06/25/20 00:40 75 32 50 06/25/20 00:00 Mechanical Ventilator 06/25/20 00:00 96.6 60 25 135/70 (91) 100 06/25/20 00:00 40 06/25/20 00:00 69 06/24/20 22:37 68 22 50 06/24/20 20:35 72 32 50 06/24/20 20:00 96.4 68 21 145/77 (99) 100 06/24/20 20:00 40 06/24/20 20:00 Mechanical Ventilator Intake and Output 06/24/20 06/25/20 19:00 07:00 Intake Total 300 ml Output Total 700 ml Balance -400 ml Free Water 100 ml Tube Feeding 200 ml Output Urine Total 700 ml # Bowel Movements 3 4 Laboratory Tests 06/25/20 02:36: POC Whole Blood Glucose [Pending] 06/25/20 04:35: White Blood Count 10.9H, Red Blood Count 2.78L, Hemoglobin 8.1L, Hematocrit 26.5 L, Mean Corpuscular Volume 95, Mean Corpuscular Hemoglobin 29.2, Mean Corpuscular Hemoglobin Concent 30.6L, Red Cell Distribution Width 15.8H, Platelet Count 160, Mean Platelet Volume 11.2H, Neutrophils (%) (Auto) 81.5H, Lymphocytes (%) (Auto) 9.5L, Monocytes (%) (Auto) 6.2, Eosinophils (%) (Auto) 2.6, Basophils (%) (Auto) 0.2, Sodium Level 133L, Potassium Level 3.9, Chloride Level 100, Carbon Dioxide Level 33H, Anion Gap 0L, Blood Urea Nitrogen 64H, Creatinine 4.0H, Estimat Glomerular Filtration Rate 19.1, Glucose Level 126H, Calcium Level 8.5, Hepatitis A IgM Antibody [Pending], Herpes Simplex Virus I IgM Ab (IFA) [Pending], Herpes Simplex Virus II IgM Ab (IFA [Pending], Monoscreen [Pending] 06/25/20 04:44: POC Whole Blood Glucose 115H 06/25/20 13:14: POC Whole Blood Glucose 84 06/25/20 16:22: POC Whole Blood Glucose [Pending] 06/25/20 18:10: POC Whole Blood Glucose 134H Height (Feet): 5 Height (Inches): 8.00 Weight (Pounds): 143 Assessment/Plan Problem List: (1) Anemia ICD Codes: D64.9 - Anemia, unspecified SNOMED: 944090679 (2) KERRI (acute kidney injury) ICD Codes: N17.9 - Acute kidney failure, unspecified SNOMED: 2157229, 62990948 (3) Acute respiratory failure ICD Codes: J96.00 - Acute respiratory failure, unspecified whether with hypoxia or hypercapnia SNOMED: 06829331 Qualifiers: Qualified Codes: J96.02 - Acute respiratory failure with hypercapnia (4) Hyperkalemia ICD Codes: E87.5 - Hyperkalemia SNOMED: 70586080 (5) Abnormal laboratory test result ICD Codes: R89.9 - Unspecified abnormal finding in specimens from other organs, systems and tissues SNOMED: 359452021 (6) Anemia ICD Codes: D64.9 - Anemia, unspecified SNOMED: 768749490 Status: progressing Assessment/Plan: poor prognosis not improving unsafe for dc fluid overload sepsis pulm edema arf trach and peg Neida Apple MD Jun 25, 2020 19:20
--- NOTE | 2020-06-25 19:20 | NUR ---
NURSE NOTES: pt report received from FRANK Olivares RN. pt remains stable resting in bed. pt is alert and oriented times 2, able to respond yes or no to simple questions. pt is trach vented, sating 99% O2, no shortness of breath noted. pt is on a cardiac cath lab manager, showing NSR, no acute cardiac distress noted. pt bed is low, locked, armed, call light within reach, bed rails up times 3. will follow plan of care.
--- NOTE | 2020-06-25 19:41 | NUR ---
NURSE HAND-OFF REPORT: Important Events on Shift:[CT abd/pelvis WO contrast, HIDA scan, order for HD] Patient Status: [Stable] Diet: [Nephro 40cc/hr] Pending Orders: [NA] Pending Results/Labs:[HIDA Scan] Pending MD notification:[NA] Latest Vital Signs: Temperature 93.1 , Pulse 64 , B/P 135 /89 , Respiratory Rate 18 , O2 SAT 100 , Mechanical Ventilator, O2 Flow Rate 15.0 . Vital Sign Comment: [Stable] EKG Rhythm: Sinus Rhythm Rhythm change?: N MD Notified?: Jennifer Lipscomb MD Response: No New Orders Received Latest Santiago Fall Score: 60 Fall Risk: High Risk Safety Measures: Call light Within Reach, Bed Alarm Zone 2, Side Rails Side Rails x3, Bed position Low and Locked. Fall Precautions: Yellow Socks Yellow Gown Door Sign Patient Fall Education Report given to [Varun Ochoa RN].
[2020-06-25 20:00] VITALS: BP 142/74
--- NOTE | 2020-06-25 20:39 | General Progress Note ---
Subjective Allergies: Coded Allergies: No Known Allergies (Unverified , 06/13/20) Subjective above note seen early am labs ordered for today not done for imaging studies today Objective Last 24 Hour Vital Signs Date Time Temp Pulse Resp B/P (MAP) Pulse Ox O2 Delivery O2 Flow Rate FiO2 06/25/20 19:12 64 18 40 06/25/20 16:38 63 24 50 06/25/20 16:00 93.1 61 20 135/89 (104) 100 06/25/20 16:00 Mechanical Ventilator 06/25/20 16:00 60 06/25/20 16:00 40 06/25/20 15:22 60 06/25/20 15:09 61 23 50 06/25/20 13:08 64 24 50 06/25/20 12:00 Mechanical Ventilator 06/25/20 12:00 90.9 67 20 116/67 (83) 100 06/25/20 12:00 40 06/25/20 09:10 66 21 50 06/25/20 08:00 96.1 66 20 131/95 (107) 100 06/25/20 08:00 Mechanical Ventilator 06/25/20 08:00 40 06/25/20 07:57 63 06/25/20 07:02 63 21 50 06/25/20 04:48 66 26 50 06/25/20 04:00 Mechanical Ventilator 06/25/20 04:00 96.8 67 20 131/72 (91) 100 06/25/20 04:00 40 06/25/20 03:49 67 06/25/20 02:41 71 29 50 06/25/20 00:40 75 32 50 06/25/20 00:00 Mechanical Ventilator 06/25/20 00:00 96.6 60 25 135/70 (91) 100 06/25/20 00:00 40 06/25/20 00:00 69 06/24/20 22:37 68 22 50 Intake and Output 06/24/20 06/25/20 19:00 07:00 Intake Total 300 ml Output Total 700 ml Balance -400 ml Free Water 100 ml Tube Feeding 200 ml Output Urine Total 700 ml # Bowel Movements 3 4 Laboratory Tests 06/25/20 02:36: POC Whole Blood Glucose [Pending] 06/25/20 04:35: White Blood Count 10.9H, Red Blood Count 2.78L, Hemoglobin 8.1L, Hematocrit 26.5L, Mean Corpuscular Volume 95, Mean Corpuscular Hemoglobin 29.2, Mean Corpuscular Hemoglobin Concent 30.6L, Red Cell Distribution Width 15.8H, Platelet Count 160, Mean Platelet Volume 11.2H, Neutrophils (%) (Auto) 81.5H, Lymphocytes (%) (Auto) 9.5L, Monocytes (%) (Auto) 6.2, Eosinophils (%) (Auto) 2.6, Basophils (%) (Auto) 0.2, Sodium Level 133L, Potassium Level 3.9, Chloride Level 100, Carbon Dioxide Level 33H, Anion Gap 0L, Blood Urea Nitrogen 64H, Creatinine 4.0H, Estimat Glomerular Filtration Rate 19.1, Glucose Level 126H, Calcium Level 8.5, Hepatitis A IgM Antibody [Pending], Herpes Simplex Virus I IgM Ab (IFA) [Pending], Herpes Simplex Virus II IgM Ab (IFA [Pending], Monoscreen [Pending] 06/25/20 04:44: POC Whole Blood Glucose 115H 06/25/20 13:14: POC Whole Blood Glucose 84 06/25/20 16:22: POC Whole Blood Glucose [Pending] 06/25/20 18:10: POC Whole Blood Glucose 134H Height (Feet): 5 Height (Inches): 8.00 Weight (Pounds): 143 Objective Debilitated elderly man NCAT supple Coarse BS RRR abd sofft, flat, (+) GT s/p LLE BKA OBS Assessment/Plan Status: progressing Assessment/Plan: Assessment Abnormal LFT, rising, ? etiology - ? infectious hepatitis - ? shayla - ? vascular - ? meds - ? other Recommendations - check infectious hepatitis panel - HIDA - CT - vascular U/S - hold seroFco Samson MD Jun 25, 2020 20:39
[2020-06-25] MEDS: Epoetin Alfa-EPBX (NON ESRD)10,000 unit/ml vial SUBQ SCH (21:16)
[2020-06-25] MEDS: Dyna-Hex 2% Top Sol 2oz TOPIC SCH (21:16)
--- NOTE | 2020-06-25 23:01 | NUR ---
NURSE NOTES: pt turned and repositioned with another RN.
--- NOTE | 2020-06-25 23:44 | Psychiatric Progress Note ---
Psychiatry Progress Note Psychiatry Progress Note Subjective the pt still needs prns agitation Medications Current Medications Medications (Trade) Dose Ordered Sig/Maryjane Route PRN Reason Start Time Stop Time Status Last Admin Dose Admin Acetaminophen (Tylenol) 650 mg Q4H PRN GT Mild Pain (Pain Scale 1-3) 06/18/20 23:00 07/18/20 22:59 Acetaminophen (Tylenol) 650 mg Q4HR PRN GT FEVER 06/14/20 09:45 07/14/20 09:44 06/19/20 20:45 Aluminum Hydroxide (Amphojel) 1,920 mg Q6H GT 06/17/20 10:00 07/17/20 09:59 06/25/20 21:16 Ascorbic Acid (Vitamin C) 500 mg DAILY ORAL 06/16/20 09:00 07/16/20 08:59 06/25/20 09:12 Barium Sulfate (Readi-Cat 2) 450 ml NOW PRN ORAL Radiology Procedure 06/24/20 21:45 06/26/20 21:44 06/25/20 09:19 Chlorhexidine Gluconate (Inés-Hex 2%) 1 applic DAILY@1999 TOPIC 06/21/20 20:00 09/19/20 19:59 06/25/20 21:16 Dextrose (Dextrose 50%) 25 ml Q30M PRN IV Hypoglycemia 06/14/20 03:45 09/12/20 03:44 Dextrose (Dextrose 50%) 50 ml Q30M PRN IV Hypoglycemia 06/14/20 03:45 09/12/20 03:44 Epoetin Bonilla (Epoetin Bonilla-EPBX(NON ESRD)) 10,000 unit TUE-TUE-TUE SUBQ 06/18/20 21:00 09/16/20 20:59 06/25/20 21:16 Haloperidol Lactate (Haldol) 5 mg Q6H PRN IM Agitation 06/21/20 23:15 08/05/20 23:14 06/25/20 18:17 Levothyroxine Sodium (Synthroid) 50 mcg DAILY@0630 ORAL 06/25/20 06:30 07/25/20 06:29 06/25/20 05:52 Linezolid (Zyvox) 600 mg EVERY 12 HOURS GT 06/23/20 21:00 07/18/20 23:59 06/25/20 21:16 Pantoprazole (Protonix) 40 mg EVERY 12 HOURS IVP 06/14/20 11:45 07/14/20 11:44 06/25/20 21:16 Neurological/Psychiatric: Denies: no symptoms, anxiety, depressed, emotional problems, headache, numbness, paresthesia, pre-existing deficit, seizure, tingling, tremors, weakness, other Allergies: Coded Allergies: No Known Allergies (Unverified , 06/13/20) Objective Data Height (Feet): 5 Height (Inches): 8.00 Weight (Pounds): 143 General Appearance: no apparent distress Additional Comments: awake, eyes open. Unable to communicate. Mood is anxious and depressed. Affect is blunted, congruent with mood. Thought process concrete. Thought content, no suicidal or homicidal ideation. Thought content is impaired. Insight and judgment is impaired. Assessment/Plan Fountain I: ASSESSMENT: Fountain I dementia. Fountain II Deferred. Fountain III As above. Fountain IV Low. Fountain V 20. PLAN: 1. Haldol IM p.r.n. 2. Patient is on bilateral restraints. 3. Continue to follow and readjust the medications. Status: progressing Status Narrative ASSESSMENT: Fountain I dementia. Fountain II Deferred. Fountain III As above. Fountain IV Low. Fountain V 20. PLAN: 1. Haldol IM p.r.n. 2. Patient is on bilateral restraints. 3. Continue to follow and readjust the medications. Assessment/Plan: ASSESSMENT: Fountain I dementia. Fountain II Deferred. Fountain III As above. Fountain IV Low. Fountain V 20. PLAN: 1. Haldol IM p.r.n. 2. Patient is on bilateral restraints. 3. Continue to follow and readjust the medications. Neftaly Delacruz MD Jun 25, 2020 23:44
[2020-06-26] VITALS (7 sets, daily range): BP systolic 113–138; BP diastolic 60–74
--- NOTE | 2020-06-26 02:23 | NUR ---
NURSE NOTES: pt was turned, repositioned and cleaned. opti foam applied to pts pressure points.
--- NOTE | 2020-06-26 04:00 | NUR ---
[employer] Note: 0358 pts HR shown on the monitoring tech was 38. pt found responsive, and asymptomatic. less than a minute after, pt HR shown on monitoring tech showed NSR, HR 63. Rapid response was called. 12 lead EKG showed NSR, vital signs stable. left a message on doctor Shayla urgent line about rapid response/ andrew cardia. 0414 rapid response ended, no change in pts condition.
--- NOTE | 2020-06-26 04:00 | NUR ---
FILE MACHINE OPERATOR Note: FILE MACHINE OPERATOR was called at 0359 by , and notified MD See FILE MACHINE OPERATOR documentation form for full report.
--- NOTE | 2020-06-26 04:18 | NUR ---
NURSE NOTES: called doctor Shayla Pyle reported that the pt had a rapid response. pts plate washer showed HR of 35, however pt was asymptomatic. one minute, pt hr became back to sinus rhythm with a HR of 63. awaiting doctor call back, awaiting new orders.
--- NOTE | 2020-06-26 04:20 | NUR ---
NURSE NOTES: called doctor Ambika Batista reported pts cabrera cath was noted to have hematuria. requested urologist be put on pts case. pts appears asymptomatic, vital signs stable. awaiting doctor call back, awaiting new orders.
[2020-06-26] MEDS: Aluminum Hydroxide Gel Susp 15ml GT SCH ×4 (04:35→22:07)
[2020-06-26 05:11] LABS: INR 1.2 (0.9-1.1)
--- NOTE | 2020-06-26 05:12 | NUR ---
NURSE NOTES: pts 12 lead EKG from rapid response, rapid response form and all rhythm strips from rapid response filed in pts chart.
[2020-06-26 05:28] LABS: CALCIUM 8.6 MG/DL (8.5-10.1); CREATININE 4.6 MG/DL (0.55-1.30)
[2020-06-26 05:32] LABS: ALBUMIN 1.5 G/DL (3.4-5.0); ALBUMIN/GLOBULIN RATIO 0.3 (1.0-2.7); BILIRUBIN,TOTAL 0.4 MG/DL (0.2-1.0); PHOSPHORUS 3.5 MG/DL (2.5-4.9)
[2020-06-26 05:50] LABS: BASOPHILS % (AUTO) 0.4 % (0.0-2.0); EOSINOPHILS % (AUTO) 6.1 % (0.0-3.0); HEMATOCRIT 26.7 % (42.0-52.0); HEMOGLOBIN 8.1 G/DL (14.2-18.0); LYMPHOCYTES % (AUTO) 10.6 % (20.0-45.0); MEAN CORPUSCULAR VOLUME 96 FL (80-99); MONOCYTES % (AUTO) 7.3 % (1.0-10.0); NEUTROPHILS % (AUTO) 75.7 % (45.0-75.0); PLATELET COUNT 154 K/UL (150-450); RED BLOOD COUNT 2.77 M/UL (4.70-6.10); WHITE BLOOD COUNT 9.7 K/UL (4.8-10.8)
--- NOTE | 2020-06-26 06:28 | General Progress Note ---
Subjective ROS Limited/Unobtainable: Yes Allergies: Coded Allergies: No Known Allergies (Unverified , 06/13/20) Subjective events noted interval notes reviewed glucose values are stable Item Value Date Time Bedside Blood Glucose 130 mg/dl H 06/26/20 0425 Bedside Blood Glucose 136 mg/dl H 06/26/20 0000 Bedside Blood Glucose 134 mg/dl H 06/25/20 1800 Bedside Blood Glucose 84 mg/dl 06/25/20 1200 Bedside Blood Glucose 115 mg/dl 06/25/20 0600 Bedside Blood Glucose 155 mg/dl H 06/25/20 0000 Objective Last 24 Hour Vital Signs Date Time Temp Pulse Resp B/P (MAP) Pulse Ox O2 Delivery O2 Flow Rate FiO2 06/26/20 04:51 62 17 40 06/26/20 04:25 63 22 96 06/26/20 04:00 Mechanical Ventilator 06/26/20 04:00 97.5 64 20 132/74 (93) 100 06/26/20 04:00 67 06/26/20 04:00 40 06/26/20 03:30 67 25 40 06/26/20 01:30 67 25 40 06/26/20 00:00 97.1 70 20 138/72 (94) 100 06/26/20 00:00 40 06/26/20 00:00 69 06/26/20 00:00 Mechanical Ventilator 06/25/20 23:20 69 28 40 06/25/20 21:11 62 20 40 06/25/20 20:00 97.1 60 20 142/74 (96) 100 06/25/20 20:00 40 06/25/20 20:00 64 06/25/20 20:00 Mechanical Ventilator 06/25/20 19:12 64 18 40 06/25/20 16:38 63 24 50 06/25/20 16:00 93.1 61 20 135/89 (104) 100 06/25/20 16:00 Mechanical Ventilator 06/25/20 16:00 60 06/25/20 16:00 40 06/25/20 15:22 60 06/25/20 15:09 61 23 50 06/25/20 13:08 64 24 50 06/25/20 12:00 Mechanical Ventilator 06/25/20 12:00 90.9 67 20 116/67 (83) 100 06/25/20 12:00 40 06/25/20 09:10 66 21 50 06/25/20 08:00 96.1 66 20 131/95 (107) 100 06/25/20 08:00 Mechanical Ventilator 06/25/20 08:00 40 06/25/20 07:57 63 06/25/20 07:02 63 21 50 Intake and Output 06/25/20 06/26/20 19:00 07:00 Intake Total 840 ml 400 ml Output Total 200 ml Balance 640 ml 400 ml Intake Oral 450 ml Free Water 50 ml Tube Feeding 280 ml 400 ml Other 60 ml Output Urine Total 200 ml # Bowel Movements 2 1 Laboratory Tests 06/25/20 13:14: POC Whole Blood Glucose 84 06/25/20 16:22: POC Whole Blood Glucose [Pending] 06/25/20 18:10: POC Whole Blood Glucose 134H 06/26/20 01:51: POC Whole Blood Glucose 136H 06/26/20 04:07: POC Whole Blood Glucose [Pending] 06/26/20 04:25: White Blood Count 9.7, Red Blood Count 2.77L, Hemoglobin 8.1L, Hematocrit 26.7L, Mean Corpuscular Volume 96, Mean Corpuscular Hemoglobin 29.3, Mean Corpuscular Hemoglobin Concent 30.3L, Red Cell Distribution Width 16.0H, Platelet Count 154, Mean Platelet Volume 11.5H, Neutrophils (%) (Auto) 75.7H, Lymphocytes (%) (Auto) 10.6L, Monocytes (%) (Auto) 7.3, Eosinophils (%) (Auto) 6.1H, Basophils (%) (Auto) 0.4, Prothrombin Time 13.4H, Prothromb Time International Ratio 1.2H, Sodium Level 133L, Potassium Level 4.0, Chloride Level 99, Carbon Dioxide Level 30, Anion Gap 4L, Blood Urea Nitrogen 76H, Creatinine 4.6H, Estimat Glomerular Filtration Rate 16.2, Glucose Level 151H, Lactic Acid Level 1.00, Calcium Level 8.6, Phosphorus Level 3.5, Total Bilirubin 0.4, Gamma Glutamyl Transpeptidase 135H, Aspartate Amino Transf (AST/SGOT) 408H, Alanine Aminotransferase (ALT/SGPT) 558H, Alkaline Phosphatase 784H, Ammonia 59H, Total Protein 7.3, Albumin 1.5L, Globulin 5.8, Albumin/Globulin Ratio 0.3L Height (Feet): 5 Height (Inches): 8.00 Weight (Pounds): 143 General Appearance: no apparent distress Neck: normal alignment Cardiovascular: normal rate Respiratory/Chest: decreased breath sounds Abdomen: normal bowel sounds Pelvis: normal external exam Objective Current Medications Medications (Trade) Dose Ordered Sig/Maryjane Route PRN Reason Start Time Stop Time Status Last Admin Dose Admin Acetaminophen (Tylenol) 650 mg Q4H PRN GT Mild Pain (Pain Scale 1-3) 06/18/20 23:00 07/18/20 22:59 Acetaminophen (Tylenol) 650 mg Q4HR PRN GT FEVER 06/14/20 09:45 07/14/20 09:44 06/19/20 20:45 Aluminum Hydroxide (Amphojel) 1,920 mg Q6H GT 06/17/20 10:00 07/17/20 09:59 06/26/20 04:35 Ascorbic Acid (Vitamin C) 500 mg DAILY ORAL 06/16/20 09:00 07/16/20 08:59 06/25/20 09:12 Barium Sulfate (Readi-Cat 2) 450 ml NOW PRN ORAL Radiology Procedure 06/24/20 21:45 06/26/20 21:44 06/25/20 09:19 Chlorhexidine Gluconate (Iéns-Hex 2%) 1 applic DAILY@2000 TOPIC 06/21/20 20:00 09/19/20 19:59 06/25/20 21:16 Dextrose (Dextrose 50%) 25 ml Q30M PRN IV Hypoglycemia 06/14/20 03:45 09/12/20 03:44 Dextrose (Dextrose 50%) 50 ml Q30M PRN IV Hypoglycemia 06/14/20 03:45 09/12/20 03:44 Epoetin Bonilla (Epoetin Bonilla-EPBX(NON ESRD)) 10,000 unit TUE-TUE-TUE SUBQ 06/18/20 21:00 09/16/20 20:59 06/25/20 21:16 Haloperidol Lactate (Haldol) 5 mg Q6H PRN IM Agitation 06/21/20 23:15 08/05/20 23:14 06/25/20 18:17 Levothyroxine Sodium (Synthroid) 50 mcg DAILY@0630 ORAL 06/25/20 06:30 07/25/20 06:29 06/26/20 06:08 Linezolid (Zyvox) 600 mg EVERY 12 HOURS GT 06/23/20 21:00 07/18/20 23:59 06/25/20 21:16 Pantoprazole (Protonix) 40 mg EVERY 12 HOURS IVP 06/14/20 11:45 07/14/20 11:44 06/25/20 21:16 Assessment/Plan Problem List: (1) History of left below knee amputation ICD Codes: Z89.512 - Acquired absence of left leg below knee SNOMED: 242616742, 858698252322000 (2) Surgical wound dehiscence ICD Codes: T81.31XA - Disruption of external operation (surgical) wound, not elsewhere classified, initial encounter SNOMED: 36369237 (3) Hyperkalemia ICD Codes: E87.5 - Hyperkalemia SNOMED: 33799115 (4) Acute respiratory failure ICD Codes: J96.00 - Acute respiratory failure, unspecified whether with hypoxia or hypercapnia SNOMED: 42530756 Qualifiers: Qualified Codes: J96.02 - Acute respiratory failure with hypercapnia (5) Hypothyroidism ICD Codes: E03.9 - Hypothyroidism, unspecified SNOMED: 26443563 (6) Hyperglycemia ICD Codes: R73.9 - Hyperglycemia, unspecified SNOMED: 89275361 Status: progressing Assessment/Plan: continue levothyroxine 50 mcg daily repeat thyroid function in 1-2 weeks continue glucose monitoring Davy Ramos MD Jun 26, 2020 06:28
--- NOTE | 2020-06-26 06:49 | Hematology/Onc Progress Note ---
Assessment/Plan Assessment/Plan ASSESSMENT AND PLAN: #. Anemia that is likely due to chronic disease, r/o gi bleeding --> anemia panel has been reviewed, ferritin is >2000 --> no e/o hemolysis is noted --> transfuse on prn basis --> blood consent has been signed --> hgb 7.4-->7.4-->7-->6.7-->8-->7.5-->8.4-->9.1->8.1 --> folic acid is wnl --> 1 unit prbc 06/18 --> epogen has been started # Acute DVT in the distal right common femoral vein and profunda femoris vein. --> DUPLEX. Acute DVT in the distal right common femoral vein and profunda femoris vein. 2. No evidence of left lower extremity DVT. --> cannot anticoagulate at this time --> 06/17 s/p ivc filter placement --> hold off anticoag # Leukocytosis is likely due to b/l infiltrates --> on abx as per id -> ABX yolis/vanc-->yolis/linezolid--> yolis/levaq-->linezolid --> continue trend --> wbc 15-->12->9.5 # Respiratory failure in this patient with vent-dependent respiratory failure. 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 # Dysphagia --> status post PEG placement. # Renal failure. -> per Dr. Honeycutt. # Hyperkalemia and kayxelate as needed. # Dvt ppx scds Appreciate consultation and angela RN Subjective Constitutional: Denies: no symptoms, chills, fever, malaise, weakness, other HEENT: Denies: no symptoms, eye pain, blurred vision, tearing, double vision, ear pain, ear discharge, nose pain, nose congestion, throat pain, throat swelling, mouth pain, mouth swelling, other Cardiovascular: Denies: no symptoms, chest pain, edema, irregular heart rate, lightheadedness, palpitations, syncope, other Genitourinary: Denies: no symptoms, burning, discharge, frequency, flank pain, hematuria, incontinence, pain, urgency, other Neurologic/Psychiatric: Denies: no symptoms, anxiety, depressed, emotional problems, headache, numbness, paresthesia, pre-existing deficit, seizure, tingling, tremors, weakness, other Endocrine: Denies: no symptoms, excessive sweating, flushing, intolerance to cold, intolerance to heat, increased hunger, increased thirst, increased urine, unexplained weight gain, unexplained weight loss, other Hematologic/Lymphatic: Denies: no symptoms, anemia, easy bleeding, easy bruising, adenopathy, other Allergies: Coded Allergies: No Known Allergies (Unverified , 06/13/20) Subjective 06/16 meds noted, labs reviewed, vent to trach, for ivc filter potentially 06/17 labs noted, meds reviewed, for ivc filter once covid neg 06/18 labs are noted, on vent and gt, 1 unit prbc ordered 06/19 labs pending, is s/p ivcf placement yesterday 06/20 for hd nontunneled cathter placement, no bleeding 06/22 labs noted, no bleeding, found down overnight, got ct brain, is neg 06/23 overnight is agitated and requiring restraints 06/24 labs noted, meds reviewed, hgb pending for am, restraints 06/25 labs reviewed, meds noted, no bleeding, hgb improved 06/26 per Rn, with rapid response overnight hr is improved, meds noted Objective Objective Current Medications Medications (Trade) Dose Ordered Sig/Maryjane Route PRN Reason Start Time Stop Time Status Last Admin Dose Admin Acetaminophen (Tylenol) 650 mg Q4H PRN GT Mild Pain (Pain Scale 1-3) 06/18/20 23:00 07/18/20 22:59 Acetaminophen (Tylenol) 650 mg Q4HR PRN GT FEVER 06/14/20 09:45 07/14/20 09:44 06/19/20 20:45 Aluminum Hydroxide (Amphojel) 1,920 mg Q6H GT 06/17/20 10:00 07/17/20 09:59 06/26/20 04:35 Ascorbic Acid (Vitamin C) 500 mg DAILY ORAL 06/16/20 09:00 07/16/20 08:59 06/25/20 09:12 Barium Sulfate (Readi-Cat 2) 450 ml NOW PRN ORAL Radiology Procedure 06/24/20 21:45 06/26/20 21:44 06/25/20 09:19 Chlorhexidine Gluconate (Inés-Hex 2%) 1 applic DAILY@1999 TOPIC 06/21/20 20:00 09/19/20 19:59 06/25/20 21:16 Dextrose (Dextrose 50%) 25 ml Q30M PRN IV Hypoglycemia 06/14/20 03:45 09/12/20 03:44 Dextrose (Dextrose 50%) 50 ml Q30M PRN IV Hypoglycemia 06/14/20 03:45 09/12/20 03:44 Epoetin Bonilla (Epoetin Bonilla-EPBX(NON ESRD)) 10,000 unit TUE-TUE-TUE SUBQ 06/18/20 21:00 09/16/20 20:59 06/25/20 21:16 Haloperidol Lactate (Haldol) 5 mg Q6H PRN IM Agitation 06/21/20 23:15 08/05/20 23:14 06/25/20 18:17 Levothyroxine Sodium (Synthroid) 50 mcg DAILY@0630 ORAL 06/25/20 06:30 07/25/20 06:29 06/26/20 06:08 Linezolid (Zyvox) 600 mg EVERY 12 HOURS GT 06/23/20 21:00 07/18/20 23:59 06/25/20 21:16 Pantoprazole (Protonix) 40 mg EVERY 12 HOURS IVP 06/14/20 11:45 07/14/20 11:44 06/25/20 21:16 Last 24 Hour Vital Signs Date Time Temp Pulse Resp B/P (MAP) Pulse Ox O2 Delivery O2 Flow Rate FiO2 06/26/20 04:51 62 17 40 06/26/20 04:25 63 22 96 06/26/20 04:00 Mechanical Ventilator 06/26/20 04:00 97.5 64 20 132/74 (93) 100 06/26/20 04:00 67 06/26/20 04:00 40 06/26/20 03:30 67 25 40 06/26/20 01:30 67 25 40 06/26/20 00:00 97.1 70 20 138/72 (94) 100 06/26/20 00:00 40 06/26/20 00:00 69 06/26/20 00:00 Mechanical Ventilator 06/25/20 23:20 69 28 40 06/25/20 21:11 62 20 40 06/25/20 20:00 97.1 60 20 142/74 (96) 100 06/25/20 20:00 40 06/25/20 20:00 64 06/25/20 20:00 Mechanical Ventilator 06/25/20 19:12 64 18 40 06/25/20 16:38 63 24 50 06/25/20 16:00 93.1 61 20 135/89 (104) 100 06/25/20 16:00 Mechanical Ventilator 06/25/20 16:00 60 06/25/20 16:00 40 06/25/20 15:22 60 06/25/20 15:09 61 23 50 06/25/20 13:08 64 24 50 06/25/20 12:00 Mechanical Ventilator 06/25/20 12:00 90.9 67 20 116/67 (83) 100 06/25/20 12:00 40 06/25/20 09:10 66 21 50 06/25/20 08:00 96.1 66 20 131/95 (107) 100 06/25/20 08:00 Mechanical Ventilator 06/25/20 08:00 40 06/25/20 07:57 63 06/25/20 07:02 63 21 50 06/25/20 04:48 66 26 50 06/25/20 04:00 Mechanical Ventilator 06/25/20 04:00 96.8 67 20 131/72 (91) 100 06/25/20 04:00 40 06/25/20 03:49 67 06/25/20 02:41 71 29 50 06/25/20 00:40 75 32 50 06/25/20 00:00 Mechanical Ventilator 06/25/20 00:00 96.6 60 25 135/70 (91) 100 06/25/20 00:00 40 06/25/20 00:00 69 06/24/20 22:37 68 22 50 06/24/20 20:35 72 32 50 06/24/20 20:00 96.4 68 21 145/77 (99) 100 06/24/20 20:00 40 06/24/20 20:00 Mechanical Ventilator 06/24/20 18:38 71 30 50 06/24/20 17:06 71 32 40 06/24/20 16:00 40 06/24/20 16:00 69 06/24/20 16:00 Mechanical Ventilator 15.0 06/24/20 15:39 95.9 68 21 149/86 (107) 100 06/24/20 15:14 68 30 40 06/24/20 13:13 69 33 40 06/24/20 12:00 67 06/24/20 11:59 Mechanical Ventilator 15.0 06/24/20 11:57 40 06/24/20 11:52 98.4 66 21 136/73 (94) 100 06/24/20 11:00 67 27 40 06/24/20 08:33 62 26 40 06/24/20 08:00 58 06/24/20 08:00 40 06/24/20 08:00 Mechanical Ventilator 15.0 06/24/20 07:45 93.2 58 17 136/74 (94) 95 Intake and Output 06/25/20 06/26/20 19:00 07:00 Intake Total 840 ml 440 ml Output Total 200 ml 700 ml Balance 640 ml -260 ml Intake Oral 450 ml Free Water 50 ml Tube Feeding 280 ml 440 ml Other 60 ml Output Urine Total 200 ml 700 ml # Bowel Movements 2 2 Labs Test 06/23/20 12:15 06/23/20 16:58 06/23/20 23:37 06/24/20 03:20 POC Whole Blood Glucose 191 MG/DL (74-106) 129 MG/DL (74-106) 157 MG/DL (74-106) Sodium Level 135 MMOL/L (136-145) Potassium Level 3.7 MMOL/L (3.5-5.1) Chloride Level 99 MMOL/L (98-107) Carbon Dioxide Level 33 MMOL/L (21-32) Anion Gap 3 mmol/L (5-15) Blood Urea Nitrogen 50 mg/dL (7-18) Creatinine 3.2 MG/DL (0.55-1.30) Estimat Glomerular Filtration Rate 24.7 mL/min (>60) Glucose Level 164 MG/DL (74-106) Uric Acid 4.2 MG/DL (2.6-7.2) Calcium Level 8.5 MG/DL (8.5-10.1) Phosphorus Level 2.3 MG/DL (2.5-4.9) Magnesium Level 2.6 MG/DL (1.8-2.4) Total Bilirubin 0.4 MG/DL (0.2-1.0) Gamma Glutamyl Transpeptidase 158 U/L (5-85) Aspartate Amino Transf (AST/SGOT) 1395 U/L (15-37) Alanine Aminotransferase (ALT/SGPT) 1038 U/L (12-78) Alkaline Phosphatase 1011 U/L (46-116) Total Protein 7.5 G/DL (6.4-8.2) Albumin 1.5 G/DL (3.4-5.0) Globulin 6.0 g/dL Albumin/Globulin Ratio 0.2 (1.0-2.7) Thyroid Stimulating Hormone (TSH) 13.762 uiU/mL (0.358-3.740) Free Thyroxine 1.03 NG/DL (0.76-1.46) Test 06/24/20 04:00 06/24/20 05:00 06/24/20 12:03 06/24/20 17:31 Urine Color Yellow Urine Appearance Cloudy Urine pH 5 (4.5-8.0) Urine Specific [place] 1.020 (1.005-1.035) Urine Protein 4+ (NEGATIVE) Urine Glucose (UA) Negative (NEGATIVE) Urine Ketones 1+ (NEGATIVE) Urine Blood 5+ (NEGATIVE) Urine Nitrite Negative (NEGATIVE) Urine Bilirubin Negative (NEGATIVE) Urine Urobilinogen Normal MG/DL (0.0-1.0) Urine Leukocyte Esterase 3+ (NEGATIVE) Urine RBC Tntc /HPF (0 - 0) Urine WBC Tntc /HPF (0 - 0) Urine Squamous Epithelial Cells None /LPF (NONE/OCC) Urine Bacteria Many /HPF (NONE) Urine Coarse Granular Casts 2-4 /LPF (NONE) POC Whole Blood Glucose 159 MG/DL (74-106) 170 MG/DL (74-106) Test 06/25/20 02:36 06/25/20 04:35 06/25/20 04:44 06/25/20 13:14 White Blood Count 10.9 K/UL (4.8-10.8) Red Blood Count 2.78 M/UL (4.70-6.10) Hemoglobin 8.1 G/DL (14.2-18.0) Hematocrit 26.5 % (42.0-52.0) Mean Corpuscular Volume 95 FL (80-99) Mean Corpuscular Hemoglobin 29.2 PG (27.0-31.0) Mean Corpuscular Hemoglobin Concent 30.6 G/DL (32.0-36.0) Red Cell Distribution Width 15.8 % (11.6-14.8) Platelet Count 160 K/UL (150-450) Mean Platelet Volume 11.2 FL (6.5-10.1) Neutrophils (%) (Auto) 81.5 % (45.0-75.0) Lymphocytes (%) (Auto) 9.5 % (20.0-45.0) Monocytes (%) (Auto) 6.2 % (1.0-10.0) Eosinophils (%) (Auto) 2.6 % (0.0-3.0) Basophils (%) (Auto) 0.2 % (0.0-2.0) Sodium Level 133 MMOL/L (136-145) Potassium Level 3.9 MMOL/L (3.5-5.1) Chloride Level 100 MMOL/L (98-107) Carbon Dioxide Level 33 MMOL/L (21-32) Anion Gap 0 mmol/L (5-15) Blood Urea Nitrogen 64 mg/dL (7-18) Creatinine 4.0 MG/DL (0.55-1.30) Estimat Glomerular Filtration Rate 19.1 mL/min (>60) Glucose Level 126 MG/DL (74-106) Calcium Level 8.5 MG/DL (8.5-10.1) Hepatitis A IgM Antibody Negative (Negative) POC Whole Blood Glucose 115 MG/DL (74-106) 84 MG/DL (74-106) Test 06/25/20 16:22 06/25/20 18:10 06/26/20 01:51 06/26/20 04:07 POC Whole Blood Glucose 134 MG/DL (74-106) 136 MG/DL (74-106) Test 06/26/20 04:25 06/26/20 06:36 White Blood Count 9.7 K/UL (4.8-10.8) Red Blood Count 2.77 M/UL (4.70-6.10) Hemoglobin 8.1 G/DL (14.2-18.0) Hematocrit 26.7 % (42.0-52.0) Mean Corpuscular Volume 96 FL (80-99) Mean Corpuscular Hemoglobin 29.3 PG (27.0-31.0) Mean Corpuscular Hemoglobin Concent 30.3 G/DL (32.0-36.0) Red Cell Distribution Width 16.0 % (11.6-14.8) Platelet Count 154 K/UL (150-450) Mean Platelet Volume 11.5 FL (6.5-10.1) Neutrophils (%) (Auto) 75.7 % (45.0-75.0) Lymphocytes (%) (Auto) 10.6 % (20.0-45.0) Monocytes (%) (Auto) 7.3 % (1.0-10.0) Eosinophils (%) (Auto) 6.1 % (0.0-3.0) Basophils (%) (Auto) 0.4 % (0.0-2.0) Prothrombin Time 13.4 SEC (9.30-11.50) Prothromb Time International Ratio 1.2 (0.9-1.1) Sodium Level 133 MMOL/L (136-145) Potassium Level 4.0 MMOL/L (3.5-5.1) Chloride Level 99 MMOL/L (98-107) Carbon Dioxide Level 30 MMOL/L (21-32) Anion Gap 4 mmol/L (5-15) Blood Urea Nitrogen 76 mg/dL (7-18) Creatinine 4.6 MG/DL (0.55-1.30) Estimat Glomerular Filtration Rate 16.2 mL/min (>60) Glucose Level 151 MG/DL (74-106) Lactic Acid Level 1.00 mmol/L (0.4-2.0) Calcium Level 8.6 MG/DL (8.5-10.1) Phosphorus Level 3.5 MG/DL (2.5-4.9) Total Bilirubin 0.4 MG/DL (0.2-1.0) Gamma Glutamyl Transpeptidase 135 U/L (5-85) Aspartate Amino Transf (AST/SGOT) 408 U/L (15-37) Alanine Aminotransferase (ALT/SGPT) 558 U/L (12-78) Alkaline Phosphatase 784 U/L (46-116) Ammonia 59 umol/L (11-32) Total Protein 7.3 G/DL (6.4-8.2) Albumin 1.5 G/DL (3.4-5.0) Globulin 5.8 g/dL Albumin/Globulin Ratio 0.3 (1.0-2.7) POC Whole Blood Glucose 131 MG/DL (74-106) Height (Feet): 5 Height (Inches): 8.00 Weight (Pounds): 143 Objective PHYSICAL EXAMINATION: VITAL SIGNS: reviewed HEAD AND NECK: Show status post tracheostomy. vent+ LUNGS: Coarse rhonchi and basilar rales. CARDIOVASCULAR: Shows irregular S1 and S2 with no gallop. ABDOMEN: Soft. Status post G-tube. EXTREMITIES: No pitting edema.++Left Jose Epperson MD Jun 26, 2020 06:49
--- NOTE | 2020-06-26 07:20 | NUR ---
NURSE HAND-OFF REPORT: Important Events on Shift:[Rapid response] Patient Status: [stable] Diet: [tube feeding] Pending Orders: [follow up with doctor brittnee Ngo hematuria. follow up with doctor aman post rapid response. ] Pending Results/Labs:[NA] Pending MD notification:[follow up with doctor brittnee Ngo hematuria. follow up with doctor aman post rapid response.] Latest Vital Signs: Temperature 96.7 , Pulse 62 , B/P 137 /71 , Respiratory Rate 17 , O2 SAT 96 , Mechanical Ventilator, O2 Flow Rate 15.0 . Vital Sign Comment: [stable ] EKG Rhythm: Sinus Rhythm Rhythm change?: N MD Notified?: Jennifer Lipscomb MD Response: No New Orders Received Latest Santiago Fall Score: 60 Fall Risk: High Risk Safety Measures: Call light Within Reach, Bed Alarm Zone 2, Side Rails Side Rails x3, Bed position Low and Locked. Fall Precautions: Yellow Socks Yellow Gown Door Sign Patient Fall Education Report given to [Juan Ramon Martinez RN].
[2020-06-26] MEDS: Ascorbic Acid 500mg tab ORAL SCH (09:06)
[2020-06-26] MEDS: Pantoprazole Inj IVP SCH ×2 (09:07→20:17)
--- NOTE | 2020-06-26 09:38 | Infectious Diseases Prog Note ---
Assessment/Plan Assessment/Plan IMPRESSION: Pneumonia with Pseudomonas & Stenotrophomonas Hypothermia COVID19 X 2: negative Ventilator-dependent respiratory failure, Diabetes mellitus type 2, Hypertension, History of left BKA, Hypertension, anemia, Major depression, Pressure ulcer, Elevated transaminase, Hyperkalemia. Anemia R leg DVT s/p IVC filter Sacral osteomyelitis Severe anemia Acute renal failure ESRD Hypercapnic respiratory failure Hematuria RECOMMENDATION: Discontinue Levaquin Continue Linezolid until 07/18 Will f/u HIDA scan & CT scan of abdomen Case was D/W RN Subjective ROS Limited/Unobtainable: Yes Genitourinary: Reports: hematuria, other - after try to pull ou Sparrow catheter Allergies: Coded Allergies: No Known Allergies (Unverified , 06/13/20) Objective Last 24 Hour Vital Signs Date Time Temp Pulse Resp B/P (MAP) Pulse Ox O2 Delivery O2 Flow Rate FiO2 06/26/20 07:20 62 26 40 06/26/20 04:51 62 17 40 06/26/20 04:25 63 22 96 06/26/20 04:00 Mechanical Ventilator 06/26/20 04:00 97.5 64 20 132/74 (93) 100 06/26/20 04:00 67 06/26/20 04:00 40 06/26/20 03:30 67 25 40 06/26/20 01:30 67 25 40 06/26/20 00:00 97.1 70 20 138/72 (94) 100 06/26/20 00:00 40 06/26/20 00:00 69 06/26/20 00:00 Mechanical Ventilator 06/25/20 23:20 69 28 40 06/25/20 21:11 62 20 40 06/25/20 20:00 97.1 60 20 142/74 (96) 100 06/25/20 20:00 40 06/25/20 20:00 64 06/25/20 20:00 Mechanical Ventilator 06/25/20 19:12 64 18 40 06/25/20 16:38 63 24 50 06/25/20 16:00 93.1 61 20 135/89 (104) 100 06/25/20 16:00 Mechanical Ventilator 06/25/20 16:00 60 06/25/20 16:00 40 06/25/20 15:22 60 06/25/20 15:09 61 23 50 06/25/20 13:08 64 24 50 06/25/20 12:00 Mechanical Ventilator 06/25/20 12:00 90.9 67 20 116/67 (83) 100 06/25/20 12:00 40 Height (Feet): 5 Height (Inches): 8.00 Weight (Pounds): 143 General Appearance: no acute distress HEENT: mucous membranes moist, status post trach Respiratory/Chest: lungs clear, other - on ventilator Cardiovascular: normal rate Abdomen: soft, non tender, other - GT feeding Genitourinary: other - Sparrow catheter, gross hematuria Extremities: no edema, other - left BKA Neurologic/Psychiatric: alert, responsive Microbiology Date/Time Source Procedure Growth Status 06/24/20 04:00 Urine,Clean Catch Urine Culture - Preliminary NO GROWTH Resulted Laboratory Tests Test 06/25/20 13:14 06/25/20 16:22 06/25/20 18:10 06/26/20 01:51 POC Whole Blood Glucose 84 MG/DL (74-106) Pending 134 MG/DL (74-106) H 136 MG/DL (74-106) H Test 06/26/20 04:07 06/26/20 04:25 06/26/20 06:36 POC Whole Blood Glucose Pending 131 MG/DL (74-106) H White Blood Count 9.7 K/UL (4.8-10.8) Red Blood Count 2.77 M/UL (4.70-6.10) L Hemoglobin 8.1 G/DL (14.2-18.0) L Hematocrit 26.7 % (42.0-52.0) L Mean Corpuscular Volume 96 FL (80-99) Mean Corpuscular Hemoglobin 29.3 PG (27.0-31.0) Mean Corpuscular Hemoglobin Concent 30.3 G/DL (32.0-36.0) L Red Cell Distribution Width 16.0 % (11.6-14.8) H Platelet Count 154 K/UL (150-450) Mean Platelet Volume 11.5 FL (6.5-10.1) H Neutrophils (%) (Auto) 75.7 % (45.0-75.0) H Lymphocytes (%) (Auto) 10.6 % (20.0-45.0) L Monocytes (%) (Auto) 7.3 % (1.0-10.0) Eosinophils (%) (Auto) 6.1 % (0.0-3.0) H Basophils (%) (Auto) 0.4 % (0.0-2.0) Prothrombin Time 13.4 SEC (9.30-11.50) H Prothromb Time International Ratio 1.2 (0.9-1.1) H Sodium Level 133 MMOL/L (136-145) L Potassium Level 4.0 MMOL/L (3.5-5.1) Chloride Level 99 MMOL/L (98-107) Carbon Dioxide Level 30 MMOL/L (21-32) Anion Gap 4 mmol/L (5-15) L Blood Urea Nitrogen 76 mg/dL (7-18) H Creatinine 4.6 MG/DL (0.55-1.30) H Estimat Glomerular Filtration Rate 16.2 mL/min (>60) Glucose Level 151 MG/DL (74-106) H Lactic Acid Level 1.00 mmol/L (0.4-2.0) Calcium Level 8.6 MG/DL (8.5-10.1) Phosphorus Level 3.5 MG/DL (2.5-4.9) Total Bilirubin 0.4 MG/DL (0.2-1.0) Gamma Glutamyl Transpeptidase 135 U/L (5-85) H Aspartate Amino Transf (AST/SGOT) 408 U/L (15-37) H Alanine Aminotransferase (ALT/SGPT) 558 U/L (12-78) H Alkaline Phosphatase 784 U/L (46-116) H Ammonia 59 umol/L (11-32) H Total Protein 7.3 G/DL (6.4-8.2) Albumin 1.5 G/DL (3.4-5.0) L Globulin 5.8 g/dL Albumin/Globulin Ratio 0.3 (1.0-2.7) L Current Medications Medications (Trade) Dose Ordered Sig/Maryjane Route PRN Reason Start Time Stop Time Status Last Admin Dose Admin Acetaminophen (Tylenol) 650 mg Q4H PRN GT Mild Pain (Pain Scale 1-3) 06/18/20 23:00 07/18/20 22:59 Acetaminophen (Tylenol) 650 mg Q4HR PRN GT FEVER 06/14/20 09:45 07/14/20 09:44 06/19/20 20:45 Aluminum Hydroxide (Amphojel) 1,920 mg Q6H GT 06/17/20 10:00 07/17/20 09:59 06/26/20 09:06 Ascorbic Acid (Vitamin C) 500 mg DAILY ORAL 06/16/20 09:00 07/16/20 08:59 06/26/20 09:06 Barium Sulfate (Readi-Cat 2) 450 ml NOW PRN ORAL Radiology Procedure 06/24/20 21:45 06/26/20 21:44 06/25/20 09:19 Chlorhexidine Gluconate (Inés-Hex 2%) 1 applic DAILY@2000 TOPIC 06/21/20 20:00 09/19/20 19:59 06/25/20 21:16 Dextrose (Dextrose 50%) 25 ml Q30M PRN IV Hypoglycemia 06/14/20 03:45 09/12/20 03:44 Dextrose (Dextrose 50%) 50 ml Q30M PRN IV Hypoglycemia 06/14/20 03:45 09/12/20 03:44 Epoetin Bonilla (Epoetin Bonilla-EPBX(NON ESRD)) 10,000 unit TUE-TUE-TUE SUBQ 06/18/20 21:00 09/16/20 20:59 06/25/20 21:16 Haloperidol Lactate (Haldol) 5 mg Q6H PRN IM Agitation 06/21/20 23:15 08/05/20 23:14 06/25/20 18:17 Levothyroxine Sodium (Synthroid) 50 mcg DAILY@0630 ORAL 06/25/20 06:30 07/25/20 06:29 06/26/20 06:08 Linezolid (Zyvox) 600 mg EVERY 12 HOURS GT 06/23/20 21:00 07/18/20 23:59 06/26/20 09:06 Pantoprazole (Protonix) 40 mg EVERY 12 HOURS IVP 06/14/20 11:45 07/14/20 11:44 06/26/20 09:07 Paul Amador MD Jun 26, 2020 09:38
--- NOTE | 2020-06-26 09:48 | General Progress Note ---
Subjective Allergies: Coded Allergies: No Known Allergies (Unverified , 06/13/20) Subjective above note more awake today follows commands d/w corporate staff accountant re CT and HIDA Objective Last 24 Hour Vital Signs Date Time Temp Pulse Resp B/P (MAP) Pulse Ox O2 Delivery O2 Flow Rate FiO2 06/26/20 07:20 62 26 40 06/26/20 04:51 62 17 40 06/26/20 04:25 63 22 96 06/26/20 04:00 Mechanical Ventilator 06/26/20 04:00 97.5 64 20 132/74 (93) 100 06/26/20 04:00 67 06/26/20 04:00 40 06/26/20 03:30 67 25 40 06/26/20 01:30 67 25 40 06/26/20 00:00 97.1 70 20 138/72 (94) 100 06/26/20 00:00 40 06/26/20 00:00 69 06/26/20 00:00 Mechanical Ventilator 06/25/20 23:20 69 28 40 06/25/20 21:11 62 20 40 06/25/20 20:00 97.1 60 20 142/74 (96) 100 06/25/20 20:00 40 06/25/20 20:00 64 06/25/20 20:00 Mechanical Ventilator 06/25/20 19:12 64 18 40 06/25/20 16:38 63 24 50 06/25/20 16:00 93.1 61 20 135/89 (104) 100 06/25/20 16:00 Mechanical Ventilator 06/25/20 16:00 60 06/25/20 16:00 40 06/25/20 15:22 60 06/25/20 15:09 61 23 50 06/25/20 13:08 64 24 50 06/25/20 12:00 Mechanical Ventilator 06/25/20 12:00 90.9 67 20 116/67 (83) 100 06/25/20 12:00 40 Intake and Output 06/25/20 06/26/20 19:00 07:00 Intake Total 840 ml 440 ml Output Total 200 ml 700 ml Balance 640 ml -260 ml Intake Oral 450 ml Free Water 50 ml Tube Feeding 280 ml 440 ml Other 60 ml Output Urine Total 200 ml 700 ml # Bowel Movements 2 2 Laboratory Tests 06/25/20 13:14: POC Whole Blood Glucose 84 06/25/20 16:22: POC Whole Blood Glucose [Pending] 06/25/20 18:10: POC Whole Blood Glucose 134H 06/26/20 01:51: POC Whole Blood Glucose 136H 06/26/20 04:07: POC Whole Blood Glucose [Pending] 06/26/20 04:25: White Blood Count 9.7, Red Blood Count 2.77L, Hemoglobin 8.1L, Hematocrit 26.7L, Mean Corpuscular Volume 96, Mean Corpuscular Hemoglobin 29.3, Mean Corpuscular Hemoglobin Concent 30.3L, Red Cell Distribution Width 16.0H, Platelet Count 154, Mean Platelet Volume 11.5H, Neutrophils (%) (Auto) 75.7H, Lymphocytes (%) (Auto) 10.6L, Monocytes (%) (Auto) 7.3, Eosinophils (%) (Auto) 6.1H, Basophils (%) (Auto) 0.4, Prothrombin Time 13.4H, Prothromb Time International Ratio 1.2H, Sodium Level 133L, Potassium Level 4.0, Chloride Level 99, Carbon Dioxide Level 30, Anion Gap 4L, Blood Urea Nitrogen 76H, Creatinine 4.6H, Estimat Glomerular Filtration Rate 16.2, Glucose Level 151H, Lactic Acid Level 1.00, Calcium Level 8.6, Phosphorus Level 3.5, Total Bilirubin 0.4, Gamma Glutamyl Transpeptidase 135H, Aspartate Amino Transf (AST/SGOT) 408H, Alanine Aminotransferase (ALT/SGPT) 558H, Alkaline Phosphatase 784H, Ammonia 59H, Total Protein 7.3, Albumin 1.5L, Globulin 5.8, Albumin/Globulin Ratio 0.3L 06/26/20 06:36: POC Whole Blood Glucose 131H Height (Feet): 5 Height (Inches): 8.00 Weight (Pounds): 143 Objective Debilitated elderly man NCAT supple Coarse BS RRR abd sofft, flat, (+) GT s/p LLE BKA awake, responsive Assessment/Plan Status: progressing Assessment/Plan: Assessment Abnormal LFT, rising, ? etiology - better today - ? infectious hepatitis - ? shayla - ? vascular - ? meds - ? other Recommendations - check infectious hepatitis panel - HIDA - pending - CT - pending - hold seroquel - follow LFT Khorrami,Payman MD Jun 26, 2020 09:48
--- NOTE | 2020-06-26 10:00 | NUR ---
NURSE NOTES: Seen and examined by Dr. Delacruz with new orders for soft wrist restraints secondary to patient attempting to pull out medical devices. Noted and carried out.
--- NOTE | 2020-06-26 10:08 | Diagnostic Imaging Report ---
EXAM: CT Abdomen and Pelvis Without Intravenous Contrast CLINICAL HISTORY: ABN LABS TECHNIQUE: Axial computed tomography images of the abdomen and pelvis without intravenous contrast. CTDI is 6.1 mGy and DLP is 342 mGy-cm. One or more of the following dose reduction techniques were used: automated exposure control, adjustment of the mA and/or kV according to patient size, use of iterative reconstruction technique. COMPARISON: No relevant prior studies available. FINDINGS: Extensive airspace consolidations at the lung bases consistent with severe multifocal infiltrate. Associated, large bilateral pleural effusions. Evaluation of the abdominal viscera is markedly suboptimal due to poor CT technique and lack of intravenous contrast. No definite hepatic lesion. No definite cholelithiasis. Mild colon wall thickening. The spleen, pancreas, and adrenal glands are not visualized well enough reliable assessment. No definite hydronephrosis. The kidneys are hyperdense, correlate for medical renal disease. No nephrolithiasis. Sparrow catheter within a decompressed urinary bladder. Moderate diverticulosis, without acute diverticulitis. No small bowel obstruction. PEG tube presumably within the stomach. Atherosclerotic calcifications of the aorta. Low-attenuation of the intravascular blood pool, correlate for anemia. IVC filter, incidentally noted. Air within the subcutaneous fat overlying the sacrum with skin thickening, correlate with physical exam for sacral decubitus ulcer. Degenerative changes of the spine. Bilateral pars defects at L5 without anterolisthesis of L5 on S1. IMPRESSION: Extensive airspace consolidations at the lung bases consistent with severe multifocal infiltrate. Associated, large bilateral pleural effusions. Evaluation of the abdominal viscera is markedly suboptimal due to poor CT technique and lack of intravenous contrast. Moderate diverticulosis, without acute diverticulitis. No small bowel obstruction. PEG tube presumably within the stomach. Note, if there is suspicion for colitis consider repeat scan with improved CT technique/intravenous contrast. Mild gallbladder wall thickening without definite evidence of cholelithiasis. Air within the subcutaneous fat overlying the sacrum with skin thickening, correlate with physical exam for sacral decubitus ulcer. Bilateral pars defects at L5. The kidneys are hyperdense, correlate for medical renal disease. Note, there was ascites on abdominal ultrasound from June 18, 2020.
--- NOTE | 2020-06-26 10:30 | NUR ---
NURSE NOTES: Kavita shelton examined by GÉNESIS Andrew at this time. Will continue to monitor.
--- NOTE | 2020-06-26 10:51 | Nephrology Progress Note ---
Assessment/Plan Problem List: (1) KERRI (acute kidney injury) (2) Acute respiratory failure (3) Chronic respiratory failure (4) Anemia (5) Hyperkalemia Assessment Acute on chronic renal failure Anemia Respiratory failure acute on chronic Respiratory acidosis and hypoxia Hyperkalemia Plan June 26: Labs reviewed. Due for dialysis today. Continue per consultants. Continue to monitor liver enzymes. June 25: Labs reviewed. Will dialyze tomorrow. Continue per consultants. Check liver function enzymes. June 24: Dialyzed yesterday. Labs reviewed. Medication list reviewed. Liver enzymes remains elevated. Continue to monitor electrolytes renal parameters and LFTs. Hemodialysis in a.m. if needed. June 23: Patient will be dialyzed today again. Labs reviewed. Serum creatinine higher. Elevated liver enzymes persist. Patient full code. Continue per consultants. June 22: Patient dialyzed yesterday. Labs reviewed. Liver function tests and enzymes are elevated. Continue to monitor renal parameters and LFTs. Continue per consultants. Patient full code. June 21: Patient due for dialysis today. Labs and medication list reviewed. Discussed with RN. Continue to monitor renal parameters. June 20: Patient had an episode of bradycardia last night. Serum creatinine rising. Patient continues to have respiratory acidosis. Discussed with MAX Bond. Will order non tunneled dialysis catheter placement for initiation of dialysis treatment due to acute renal failure. Patient remains full code. I favor comfort care if bioethics consultation is sought and physicians on the team agreeable. June 19: No CHEM panel today. Low hemoglobin as of yesterday's lab results. Anemia management per Dr. Cueva. Continue to monitor renal parameters. June 18: Labs are reviewed. Hemoglobin lower. Creatinine higher. ABG not done yet. Patient full code. Continue per consultants. June 17: Labs reviewed. Hemoglobin low. Creatinine up to 3. Phosphorus levels elevated. Will start Amphojel via GT tube as a phosphorus binder. Monitor renal parameters. Check ABG. Continue per consultants. June 16: Labs reviewed. Serum creatinine mariana to 2.6. Abnormal electrolytes now normalized. Continue to monitor renal parameters and avoid nephrotoxic's. Continue to adjust pulmonary status as possible. June 15: ABG pH of 7.1. 2D echo suggestive of ejection fraction of 50%. Labs reviewed. Serum creatinine mariana. Will hold IV Lasix. Will give Kayexalate for high potassium and 1 amp of sodium bicarb. Albumin IV bolus given. Continue per consultants. Continue to monitor renal parameters. Kidney ultrasound ordered. June 14: As follow Pulmonary evaluation Sparrow catheter Hold IV fluid IV fluid, until 2D echo results available Kayexalate for high potassium IV Protonix 2D echocardiogram Anemia work-up More labs ordered Subjective ROS Limited/Unobtainable: Yes Objective Objective Last 24 Hour Vital Signs Date Time Temp Pulse Resp B/P (MAP) Pulse Ox O2 Delivery O2 Flow Rate FiO2 06/26/20 09:24 60 24 40 06/26/20 07:20 62 26 40 06/26/20 04:51 62 17 40 06/26/20 04:25 63 22 96 06/26/20 04:00 Mechanical Ventilator 06/26/20 04:00 97.5 64 20 132/74 (93) 100 06/26/20 04:00 67 06/26/20 04:00 40 06/26/20 03:30 67 25 40 06/26/20 01:30 67 25 40 06/26/20 00:00 97.1 70 20 138/72 (94) 100 06/26/20 00:00 40 06/26/20 00:00 69 06/26/20 00:00 Mechanical Ventilator 06/25/20 23:20 69 28 40 06/25/20 21:11 62 20 40 06/25/20 20:00 97.1 60 20 142/74 (96) 100 06/25/20 20:00 40 06/25/20 20:00 64 06/25/20 20:00 Mechanical Ventilator 06/25/20 19:12 64 18 40 06/25/20 16:38 63 24 50 06/25/20 16:00 93.1 61 20 135/89 (104) 100 06/25/20 16:00 Mechanical Ventilator 06/25/20 16:00 60 06/25/20 16:00 40 06/25/20 15:22 60 06/25/20 15:09 61 23 50 06/25/20 13:08 64 24 50 06/25/20 12:00 Mechanical Ventilator 06/25/20 12:00 90.9 67 20 116/67 (83) 100 06/25/20 12:00 40 Intake and Output 06/25/20 06/26/20 19:00 07:00 Intake Total 840 ml 440 ml Output Total 200 ml 700 ml Balance 640 ml -260 ml Intake Oral 450 ml Free Water 50 ml Tube Feeding 280 ml 440 ml Other 60 ml Output Urine Total 200 ml 700 ml # Bowel Movements 2 2 Current Medications Medications (Trade) Dose Ordered Sig/Maryjane Route PRN Reason Start Time Stop Time Status Last Admin Dose Admin Acetaminophen (Tylenol) 650 mg Q4H PRN GT Mild Pain (Pain Scale 1-3) 06/18/20 23:00 07/18/20 22:59 Acetaminophen (Tylenol) 650 mg Q4HR PRN GT FEVER 06/14/20 09:45 07/14/20 09:44 06/19/20 20:45 Aluminum Hydroxide (Amphojel) 1,920 mg Q6H GT 06/17/20 10:00 07/17/20 09:59 06/26/20 09:06 Ascorbic Acid (Vitamin C) 500 mg DAILY ORAL 06/16/20 09:00 07/16/20 08:59 06/26/20 09:06 Barium Sulfate (Readi-Cat 2) 450 ml NOW PRN ORAL Radiology Procedure 06/24/20 21:45 06/26/20 21:44 06/25/20 09:19 Chlorhexidine Gluconate (Inés-Hex 2%) 1 applic DAILY@2000 TOPIC 06/21/20 20:00 09/19/20 19:59 06/25/20 21:16 Dextrose (Dextrose 50%) 25 ml Q30M PRN IV Hypoglycemia 06/14/20 03:45 09/12/20 03:44 Dextrose (Dextrose 50%) 50 ml Q30M PRN IV Hypoglycemia 06/14/20 03:45 09/12/20 03:44 Epoetin Bonilla (Epoetin Bonilla-EPBX(NON ESRD)) 10,000 unit TUE-TUE-TUE SUBQ 06/18/20 21:00 09/16/20 20:59 06/25/20 21:16 Haloperidol Lactate (Haldol) 5 mg Q6H PRN IM Agitation 06/21/20 23:15 08/05/20 23:14 06/25/20 18:17 Levothyroxine Sodium (Synthroid) 50 mcg DAILY@0630 ORAL 06/25/20 06:30 07/25/20 06:29 06/26/20 06:08 Linezolid (Zyvox) 600 mg EVERY 12 HOURS GT 06/23/20 21:00 07/18/20 23:59 06/26/20 09:06 Pantoprazole (Protonix) 40 mg EVERY 12 HOURS IVP 06/14/20 11:45 07/14/20 11:44 06/26/20 09:07 Laboratory Tests 06/25/20 13:14: POC Whole Blood Glucose 84 06/25/20 16:22: POC Whole Blood Glucose [Pending] 06/25/20 18:10: POC Whole Blood Glucose 134H 06/26/20 01:51: POC Whole Blood Glucose 136H 06/26/20 04:07: POC Whole Blood Glucose [Pending] 06/26/20 04:25: White Blood Count 9.7, Red Blood Count 2.77L, Hemoglobin 8.1L, Hematocrit 26.7L, Mean Corpuscular Volume 96, Mean Corpuscular Hemoglobin 29.3, Mean Corpuscular Hemoglobin Concent 30.3L, Red Cell Distribution Width 16.0H, Platelet Count 154, Mean Platelet Volume 11.5H, Neutrophils (%) (Auto) 75.7H, Lymphocytes (%) (Auto) 10.6L, Monocytes (%) (Auto) 7.3, Eosinophils (%) (Auto) 6.1H, Basophils (%) (Auto) 0.4, Prothrombin Time 13.4H, Prothromb Time International Ratio 1.2H, Sodium Level 133L, Potassium Level 4.0, Chloride Level 99, Carbon Dioxide Level 30, Anion Gap 4L, Blood Urea Nitrogen 76H, Creatinine 4.6H, Estimat Glomerular Filtration Rate 16.2, Glucose Level 151H, Lactic Acid Level 1.00, Calcium Level 8.6, Phosphorus Level 3.5, Total Bilirubin 0.4, Gamma Glutamyl Transpeptidase 135H, Aspartate Amino Transf (AST/SGOT) 408H, Alanine Aminotransferase (ALT/SGPT) 558H, Alkaline Phosphatase 784H, Ammonia 59H, Total Protein 7.3, Albumin 1.5L, Globulin 5.8, Albumin/Globulin Ratio 0.3L 06/26/20 06:36: POC Whole Blood Glucose 131H Height (Feet): 5 Height (Inches): 8.00 Weight (Pounds): 143 General Appearance: no apparent distress EENT: other - Trach to vent Cardiovascular: normal rate Respiratory/Chest: decreased breath sounds Abdomen: distended Leonidas Honeycutt MD Jun 26, 2020 10:51
--- NOTE | 2020-06-26 10:55 | Pulmonology Progress Note ---
Subjective ROS Limited/Unobtainable: Yes Interval Events: FiO2 now 40%; Remains on vent. Constitutional: Reports: other - hypothermic HEENT: Repors: no symptoms Respiratory: Reports: no symptoms Cardiovascular: Reports: no symptoms Gastrointestinal/Abdominal: Reports: no symptoms Genitourinary: Reports: no symptoms Allergies: Coded Allergies: No Known Allergies (Unverified , 06/13/20) Objective Last 24 Hour Vital Signs Date Time Temp Pulse Resp B/P (MAP) Pulse Ox O2 Delivery O2 Flow Rate FiO2 06/26/20 09:24 60 24 40 06/26/20 07:20 62 26 40 06/26/20 04:51 62 17 40 06/26/20 04:25 63 22 96 06/26/20 04:00 Mechanical Ventilator 06/26/20 04:00 97.5 64 20 132/74 (93) 100 06/26/20 04:00 67 06/26/20 04:00 40 06/26/20 03:30 67 25 40 06/26/20 01:30 67 25 40 06/26/20 00:00 97.1 70 20 138/72 (94) 100 06/26/20 00:00 40 06/26/20 00:00 69 06/26/20 00:00 Mechanical Ventilator 06/25/20 23:20 69 28 40 06/25/20 21:11 62 20 40 06/25/20 20:00 97.1 60 20 142/74 (96) 100 06/25/20 20:00 40 06/25/20 20:00 64 06/25/20 20:00 Mechanical Ventilator 06/25/20 19:12 64 18 40 06/25/20 16:38 63 24 50 06/25/20 16:00 93.1 61 20 135/89 (104) 100 06/25/20 16:00 Mechanical Ventilator 06/25/20 16:00 60 06/25/20 16:00 40 06/25/20 15:22 60 06/25/20 15:09 61 23 50 06/25/20 13:08 64 24 50 06/25/20 12:00 Mechanical Ventilator 06/25/20 12:00 90.9 67 20 116/67 (83) 100 06/25/20 12:00 40 Intake and Output 06/25/20 06/26/20 19:00 07:00 Intake Total 840 ml 440 ml Output Total 200 ml 700 ml Balance 640 ml -260 ml Intake Oral 450 ml Free Water 50 ml Tube Feeding 280 ml 440 ml Other 60 ml Output Urine Total 200 ml 700 ml # Bowel Movements 2 2 General Appearance: no acute distress HEENT: status post trach Respiratory: chest wall non-tender, lungs clear Cardiovascular: normal peripheral pulses, normal rate Abdomen: normal bowel sounds Extremities: no cyanosis Microbiology Date/Time Source Procedure Growth Status 06/24/20 04:00 Urine,Clean Catch Urine Culture - Preliminary NO GROWTH Resulted Laboratory Tests 06/25/20 13:14: POC Whole Blood Glucose 84 06/25/20 16:22: POC Whole Blood Glucose [Pending] 06/25/20 18:10: POC Whole Blood Glucose 134H 06/26/20 01:51: POC Whole Blood Glucose 136H 06/26/20 04:07: POC Whole Blood Glucose [Pending] 06/26/20 04:25: White Blood Count 9.7, Red Blood Count 2.77L, Hemoglobin 8.1L, Hematocrit 26.7L, Mean Corpuscular Volume 96, Mean Corpuscular Hemoglobin 29.3, Mean Corpuscular Hemoglobin Concent 30.3L, Red Cell Distribution Width 16.0H, Platelet Count 154, Mean Platelet Volume 11.5H, Neutrophils (%) (Auto) 75.7H, Lymphocytes (%) (Auto) 10.6L, Monocytes (%) (Auto) 7.3, Eosinophils (%) (Auto) 6.1H, Basophils (%) (Auto) 0.4, Prothrombin Time 13.4H, Prothromb Time International Ratio 1.2H, Sodium Level 133L, Potassium Level 4.0, Chloride Level 99, Carbon Dioxide Level 30, Anion Gap 4L, Blood Urea Nitrogen 76H, Creatinine 4.6H, Estimat Glomerular Filtration Rate 16.2, Glucose Level 151H, Lactic Acid Level 1.00, Calcium Level 8.6, Phosphorus Level 3.5, Total Bilirubin 0.4, Gamma Glutamyl Transpeptidase 13 5H, Aspartate Amino Transf (AST/SGOT) 408H, Alanine Aminotransferase (ALT/SGPT) 558H, Alkaline Phosphatase 784H, Ammonia 59H, Total Protein 7.3, Albumin 1.5L, Globulin 5.8, Albumin/Globulin Ratio 0.3L 06/26/20 06:36: POC Whole Blood Glucose 131H Current Medications Medications (Trade) Dose Ordered Sig/Maryjane Route PRN Reason Start Time Stop Time Status Last Admin Dose Admin Acetaminophen (Tylenol) 650 mg Q4H PRN GT Mild Pain (Pain Scale 1-3) 06/18/20 23:00 07/18/20 22:59 Acetaminophen (Tylenol) 650 mg Q4HR PRN GT FEVER 06/14/20 09:45 07/14/20 09:44 06/19/20 20:45 Aluminum Hydroxide (Amphojel) 1,920 mg Q6H GT 06/17/20 10:00 07/17/20 09:59 06/26/20 09:06 Ascorbic Acid (Vitamin C) 500 mg DAILY ORAL 06/16/20 09:00 07/16/20 08:59 06/26/20 09:06 Barium Sulfate (Readi-Cat 2) 450 ml NOW PRN ORAL Radiology Procedure 06/24/20 21:45 06/26/20 21:44 06/25/20 09:19 Chlorhexidine Gluconate (Inés-Hex 2%) 1 applic DAILY@1999 TOPIC 06/21/20 20:00 09/19/20 19:59 06/25/20 21:16 Dextrose (Dextrose 50%) 25 ml Q30M PRN IV Hypoglycemia 06/14/20 03:45 09/12/20 03:44 Dextrose (Dextrose 50%) 50 ml Q30M PRN IV Hypoglycemia 06/14/20 03:45 09/12/20 03:44 Epoetin Bonilla (Epoetin Bonilla-EPBX(NON ESRD)) 10,000 unit TUE-TUE-TUE SUBQ 06/18/20 21:00 09/16/20 20:59 06/25/20 21:16 Haloperidol Lactate (Haldol) 5 mg Q6H PRN IM Agitation 06/21/20 23:15 08/05/20 23:14 06/25/20 18:17 Levothyroxine Sodium (Synthroid) 50 mcg DAILY@0630 ORAL 06/25/20 06:30 07/25/20 06:29 06/26/20 06:08 Linezolid (Zyvox) 600 mg EVERY 12 HOURS GT 06/23/20 21:00 07/18/20 23:59 06/26/20 09:06 Pantoprazole (Protonix) 40 mg EVERY 12 HOURS IVP 06/14/20 11:45 07/14/20 11:44 06/26/20 09:07 Assessment/Plan Problems: (1) Acute respiratory failure Assessment/Plan IMPRESSION: 1. Chronic respiratory failure. 2. Hypoxemia. 3. Respiratory acidosis. 4. Anemia. 5. Leukocytosis. 6. DVT 7. S/p code blue 06/19/20 DISCUSSION: The patient's x-ray is markedly abnormal with bilateral infiltrates. I suspect he has pulmonary fibrosis. Latest CXR is unchanged; will repeat COVID 19 pcr and antigen both negative No anticoagulation for DVT due to anemia S/p IVC filter placement Continue assist-control mechanical ventilation; currently FiO2 reduced to 40%; SaO2 100%, broad-spectrum antibiotics. Transfusion as needed. Will decrease PEEP to 5; S/p HD WIll decrease FiO2 as tolerated I will follow carefully. Hugo Carl Omar Syed MD Jun 26, 2020 10:55
--- NOTE | 2020-06-26 12:34 | NUR ---
[employer] NOTE SW attempted to call pt's daughter, Blanca [phone], the call went straight to automatic message w/o vm option.
--- NOTE | 2020-06-26 12:57 | Surgery Progress Note ---
Surgery Progress Note Subjective Additional Comments ct reviewed no n/v labs noted Objective Last 24 Hour Vital Signs Date Time Temp Pulse Resp B/P (MAP) Pulse Ox O2 Delivery O2 Flow Rate FiO2 06/26/20 12:00 Mechanical Ventilator 06/26/20 12:00 98.0 58 19 113/60 (77) 100 06/26/20 12:00 58 06/26/20 12:00 40 06/26/20 11:22 58 25 40 06/26/20 09:24 60 24 40 06/26/20 08:00 Mechanical Ventilator 06/26/20 08:00 96.9 62 18 122/73 (89) 100 06/26/20 08:00 40 06/26/20 08:00 61 06/26/20 07:20 62 26 40 06/26/20 04:51 62 17 40 06/26/20 04:25 63 22 96 06/26/20 04:00 Mechanical Ventilator 06/26/20 04:00 97.5 64 20 132/74 (93) 100 06/26/20 04:00 67 06/26/20 04:00 40 06/26/20 03:30 67 25 40 06/26/20 01:30 67 25 40 06/26/20 00:00 97.1 70 20 138/72 (94) 100 06/26/20 00:00 40 06/26/20 00:00 69 06/26/20 00:00 Mechanical Ventilator 06/25/20 23:20 69 28 40 06/25/20 21:11 62 20 40 06/25/20 20:00 97.1 60 20 142/74 (96) 100 06/25/20 20:00 40 06/25/20 20:00 64 06/25/20 20:00 Mechanical Ventilator 06/25/20 19:12 64 18 40 06/25/20 16:38 63 24 50 06/25/20 16:00 93.1 61 20 135/89 (104) 100 06/25/20 16:00 Mechanical Ventilator 06/25/20 16:00 60 06/25/20 16:00 40 06/25/20 15:22 60 06/25/20 15:09 61 23 50 06/25/20 13:08 64 24 50 I&O Intake and Output 06/25/20 06/26/20 19:00 07:00 Intake Total 840 ml 440 ml Output Total 200 ml 700 ml Balance 640 ml -260 ml Intake Oral 450 ml Free Water 50 ml Tube Feeding 280 ml 440 ml Other 60 ml Output Urine Total 200 ml 700 ml # Bowel Movements 2 2 Dressing: saturated Cardiovascular: RSR Respiratory: decreased breath sounds Abdomen: soft, non-tender, present bowel sounds Extremities: no tenderness, no cyanosis Laboratory Tests Test 06/25/20 13:14 06/25/20 16:22 06/25/20 18:10 06/26/20 01:51 POC Whole Blood Glucose 84 MG/DL (74-106) Pending 134 MG/DL (74-106) H 136 MG/DL (74-106) H Test 06/26/20 04:07 06/26/20 04:25 06/26/20 06:36 06/26/20 12:55 POC Whole Blood Glucose Pending 131 MG/DL (74-106) H 152 MG/DL (74-106) H White Blood Count 9.7 K/UL (4.8-10.8) Red Blood Count 2.77 M/UL (4.70-6.10) L Hemoglobin 8.1 G/DL (14.2-18.0) L Hematocrit 26.7 % (42.0-52.0) L Mean Corpuscular Volume 96 FL (80-99) Mean Corpuscular Hemoglobin 29.3 PG (27.0-31.0) Mean Corpuscular Hemoglobin Concent 30.3 G/DL (32.0-36.0) L Red Cell Distribution Width 16.0 % (11.6-14.8) H Platelet Count 154 K/UL (150-450) Mean Platelet Volume 11.5 FL (6.5-10.1) H Neutrophils (%) (Auto) 75.7 % (45.0-75.0) H Lymphocytes (%) (Auto) 10.6 % (20.0-45.0) L Monocytes (%) (Auto) 7.3 % (1.0-10.0) Eosinophils (%) (Auto) 6.1 % (0.0-3.0) H Basophils (%) (Auto) 0.4 % (0.0-2.0) Prothrombin Time 13.4 SEC (9.30-11.50) H Prothromb Time International Ratio 1.2 (0.9-1.1) H Sodium Level 133 MMOL/L (136-145) L Potassium Level 4.0 MMOL/L (3.5-5.1) Chloride Level 99 MMOL/L (98-107) Carbon Dioxide Level 30 MMOL/L (21-32) Anion Gap 4 mmol/L (5-15) L Blood Urea Nitrogen 76 mg/dL (7-18) H Creatinine 4.6 MG/DL (0.55-1.30) H Estimat Glomerular Filtration Rate 16.2 mL/min (>60) Glucose Level 151 MG/DL (74-106) H Lactic Acid Level 1.00 mmol/L (0.4-2.0) Calcium Level 8.6 MG/DL (8.5-10.1) Phosphorus Level 3.5 MG/DL (2.5-4.9) Total Bilirubin 0.4 MG/DL (0.2-1.0) Gamma Glutamyl Transpeptidase 135 U/L (5-85) H Aspartate Amino Transf (AST/SGOT) 408 U/L (15-37) H Alanine Aminotransferase (ALT/SGPT) 558 U/L (12-78) H Alkaline Phosphatase 784 U/L (46-116) H Ammonia 59 umol/L (11-32) H Total Protein 7.3 G/DL (6.4-8.2) Albumin 1.5 G/DL (3.4-5.0) L Globulin 5.8 g/dL Albumin/Globulin Ratio 0.3 (1.0-2.7) L Plan Problems: (1) Leukocytosis Assessment & Plan: 54-year-old male multiple comorbidities admitted for abnormal chest x-ray potentially pneumonia leukocytosis abnormal labs. Patient identified to have a prior left BKA surgical sutures still in place as well as a surgical sacral wound with sutures in place. Considerations of dehiscence being identified and potential etiology of infection. After evaluation unlikely source of infection though the sacral wound was looked to be dehiscing at the inferior aspect. No acute surgical mention at this time We will discussed care plan with PCP Recommend follow-up with initial surgeon considerations of removal of surgical sutures Care plan initiated worsening lft's US ordered ? shayla Extensive airspace consolidations at the lung bases consistent with severe multifocal infiltrate. Associated, large bilateral pleural effusions. Evaluation of the abdominal viscera is markedly suboptimal due to poor CT technique and lack of intravenous contrast. No definite hepatic lesion. No definite cholelithiasis. Mild colon wall thickening. The spleen, pancreas, and adrenal glands are not visualized well enough reliable assessment. No definite hydronephrosis. The kidneys are hyperdense, correlate for medical renal disease. No nephrolithiasis. Sparrow catheter within a decompressed urinary bladder. Moderate diverticulosis, without acute diverticulitis. No small bowel obstruction. PEG tube presumably within the stomach. Atherosclerotic calcifications of the aorta. Low-attenuation of the intravascular blood pool, correlate for anemia. IVC filter, incidentally noted. Air within the subcutaneous fat overlying the sacrum with skin thickening, correlate with physical exam for sacral decubitus ulcer. Degenerative changes of the spine. Bilateral pars defects at L5 without anterolisthesis of L5 on S1. IMPRESSION: Extensive airspace consolidations at the lung bases consistent with severe multifocal infiltrate. Associated, large bilateral pleural effusions. Evaluation of the abdominal viscera is markedly suboptimal due to poor CT technique and lack of intravenous contrast. Moderate diverticulosis, without acute diverticulitis. No small bowel obstruction. PEG tube presumably within the stomach. Note, if there is suspicion for colitis consider repeat scan with improved CT technique/intravenous contrast. Mild gallbladder wall thickening without definite evidence of cholelithiasis. Air within the subcutaneous fat overlying the sacrum with skin thickening, correlate with physical exam for sacral decubitus ulcer. Bilateral pars defects at L5. The kidneys are hyperdense, correlate for medical renal disease. (2) Surgical wound dehiscence Assessment & Plan: Patient identified to have a left BKA surgical sutures in place flap looks like it is taken well no signs of infection at this time no signs of seroma hematoma or drainage. Unknown exact length or duration of potential prior left BKA and until then recommend leaving sutures in place as it may be too early though it does look well-healed. If able to obtain prior records we will be happy to remove sutures otherwise will need follow-up with primary surgeon furthermore patient identified to have a surgical wound in the sacral area seems he probably potentially had a stage IV sacral decubitus ulcer that had debridement and primary closure. Fortunately. Sutures are still in place and it looks like the inferior aspect may be slowly dehiscing. There is no significant drainage no foul odor no signs of active infection unknown if b one was palpable prior. Can consider removing surgical sutures but again would recommend obtaining prior records of possible prior to doing so. Also recommend following up with primary surgeon as this may need ongoing continued care. Will follow with recommendations and as information is available. Continue current care plan. Wash wounds daily with normal saline. Apply skin protectant Optifoam dressing. Turn every 2 hours. Offload pressure with pillows and air mattress. Nutritional optimization. (3) History of left below knee amputation (4) Malnutrition Assessment & Plan: DAILY ESTIMATED NEEDS: Needs based on Wound, critical care, underweight/ 55.5kg 25-33 (25-35 w/ HD) kcals/kg 5869-3692 (3895-5065) total kcals 1.25-2 g protein/kg 69-111 g total protein 25-30 mL/kg 8027-1233 total fluid mLs NUTRITION DIAGNOSIS: * Swallowing difficulty R/T respiratory status as evidenced by pt is trach/vent dep, PEG dep. CURRENT TF: Nepro @ 40ml/hr x24 hrs ENTERAL NUTRITION RECOMMENDATIONS: Nepro @ 40ml/hr x 24 hrs to provide 960ml, 1728kcal, 78g prot, 698ml free water * Maintain current TF * HOB over 30 degrees/ water flush per MD ADDITIONAL RECOMMENDATIONS: * Per SNF: HT=69" RY=924cim -> rec daily calibrated bedscale wt * Monitor lytes: elev K-> now wnl, phos now low * Wound healing: RANDY BID + Nephrovite 1 tab qdaily * Monitor for bm, last bm 06/19, now 06/24 * W/ HD rec to add Prosource 1 pack qdaily for added 11g pro/day. (5) Anemia (6) KERRI (acute kidney injury) (7) Acute respiratory failure (8) Hyperkalemia (9) Anemia (10) Abnormal laboratory test result (11) Chronic respiratory failure Azar Mares Jun 26, 2020 12:57
--- NOTE | 2020-06-26 12:58 | General Progress Note ---
Subjective ROS Limited/Unobtainable: Yes Allergies: Coded Allergies: No Known Allergies (Unverified , 06/13/20) Objective Last 24 Hour Vital Signs Date Time Temp Pulse Resp B/P (MAP) Pulse Ox O2 Delivery O2 Flow Rate FiO2 06/26/20 12:00 Mechanical Ventilator 06/26/20 12:00 98.0 58 19 113/60 (77) 100 06/26/20 12:00 58 06/26/20 12:00 40 06/26/20 11:22 58 25 40 06/26/20 09:24 60 24 40 06/26/20 08:00 Mechanical Ventilator 06/26/20 08:00 96.9 62 18 122/73 (89) 100 06/26/20 08:00 40 06/26/20 08:00 61 06/26/20 07:20 62 26 40 06/26/20 04:51 62 17 40 06/26/20 04:25 63 22 96 06/26/20 04:00 Mechanical Ventilator 06/26/20 04:00 97.5 64 20 132/74 (93) 100 06/26/20 04:00 67 06/26/20 04:00 40 06/26/20 03:30 67 25 40 06/26/20 01:30 67 25 40 06/26/20 00:00 97.1 70 20 138/72 (94) 100 06/26/20 00:00 40 06/26/20 00:00 69 06/26/20 00:00 Mechanical Ventilator 06/25/20 23:20 69 28 40 06/25/20 21:11 62 20 40 06/25/20 20:00 97.1 60 20 142/74 (96) 100 06/25/20 20:00 40 06/25/20 20:00 64 06/25/20 20:00 Mechanical Ventilator 06/25/20 19:12 64 18 40 06/25/20 16:38 63 24 50 06/25/20 16:00 93.1 61 20 135/89 (104) 100 06/25/20 16:00 Mechanical Ventilator 06/25/20 16:00 60 06/25/20 16:00 40 06/25/20 15:22 60 06/25/20 15:09 61 23 50 06/25/20 13:08 64 24 50 Intake and Output 06/25/20 06/26/20 19:00 07:00 Intake Total 840 ml 440 ml Output Total 200 ml 700 ml Balance 640 ml -260 ml Intake Oral 450 ml Free Water 50 ml Tube Feeding 280 ml 440 ml Other 60 ml Output Urine Total 200 ml 700 ml # Bowel Movements 2 2 Laboratory Tests 06/25/20 13:14: POC Whole Blood Glucose 84 06/25/20 16:22: POC Whole Blood Glucose [Pending] 06/25/20 18:10: POC Whole Blood Glucose 134H 06/26/20 01:51: POC Whole Blood Glucose 136H 06/26/20 04:07: POC Whole Blood Glucose [Pending] 06/26/20 04:25: White Blood Count 9.7, Red Blood Count 2.77L, Hemoglobin 8.1L, Hematocrit 26.7L, Mean Corpuscular Volume 96, Mean Corpuscular Hemoglobin 29.3, Mean Corpuscular Hemoglobin Concent 30.3L, Red Cell Distribution Width 16.0H, Platelet Count 154, Mean Platelet Volume 11.5H, Neutrophils (%) (Auto) 75.7H, Lymphocytes (%) (Auto) 10.6L, Monocytes (%) (Auto) 7.3, Eosinophils (%) (Auto) 6.1H, Basophils (%) (Auto) 0.4, Prothrombin Time 13.4H, Prothromb Time International Ratio 1.2H, Sodium Level 133L, Potassium Level 4.0, Chloride Level 99, Carbon Dioxide Level 30, Anion Gap 4L, Blood Urea Nitrogen 76H, Creatinine 4.6H, Estimat Glomerular Filtration Rate 16.2, Glucose Level 151H, Lactic Acid Level 1.00, Calcium Level 8.6, Phosphorus Level 3.5, Total Bilirubin 0.4, Gamma Glutamyl Transpeptidase 135H, Aspartate Amino Transf (AST/SGOT) 408H, Alanine Aminotransferase (ALT/SGPT) 558H, Alkaline Phosphatase 784H, Ammonia 59H, Total Protein 7.3, Albumin 1.5L, Globulin 5.8, Albumin/Globulin Ratio 0.3L 06/26/20 06:36: POC Whole Blood Glucose 131H 06/26/20 12:55: POC Whole Blood Glucose 152H Height (Feet): 5 Height (Inches): 8.00 Weight (Pounds): 143 Assessment/Plan Problem List: (1) Anemia ICD Codes: D64.9 - Anemia, unspecified SNOMED: 244877167 (2) KERRI (acute kidney injury) ICD Codes: N17.9 - Acute kidney failure, unspecified SNOMED: 3678956, 74903428 (3) Acute respiratory failure ICD Codes: J96.00 - Acute respiratory failure, unspecified whether with hypoxia or hypercapnia SNOMED: 28301142 Qualifiers: Qualified Codes: J96.02 - Acute respiratory failure with hypercapnia (4) Hyperkalemia ICD Codes: E87.5 - Hyperkalemia SNOMED: 59793613 (5) Abnormal laboratory test result ICD Codes: R89.9 - Unspecified abnormal finding in specimens from other organs, systems and tissues SNOMED: 815276765 (6) Anemia ICD Codes: D64.9 - Anemia, unspecified SNOMED: 201815149 Status: progressing Assessment/Plan: pulling at [place]rera on restraints consulted dr beaulieu for hematurea afebrile fluid overload sepsis pulm edema arf trach and peg Neida Apple MD Jun 26, 2020 12:58
--- NOTE | 2020-06-26 14:31 | Diagnostic Imaging Report ---
EXAM: XR Chest, 1 View CLINICAL HISTORY: ABN CHST TECHNIQUE: Frontal view of the chest. Please note that the exam was obtained on 06/24/20, but not submitted for interpretation until 06/26/20. COMPARISON: Chest x-ray dated 06/19/20 FINDINGS: Lungs: No significant interval change in extensive bilateral pulmonary infiltrates. Pleural space: Unremarkable. The costophrenic angles are sharp. No visible pneumothorax. Heart: Unremarkable. No cardiomegaly. Mediastinum: Unremarkable. Bones/joints: Unremarkable. Tubes, lines and devices: Right IJ central venous catheter with the tip in the region of the SVC/right atrial junction. Stable positioning of the tracheostomy tube. Telemetry leads overlie the thorax. Interval removal of the right-sided PICC. IMPRESSION: 1. No significant interval change in extensive bilateral pulmonary infiltrates compared to the chest x-ray from 06/19/20. 2. Right IJ central venous catheter with the tip in the region of the SVC/right atrial junction. 3. Stable positioning of the tracheostomy tube.
--- NOTE | 2020-06-26 15:00 | NUR ---
NURSE NOTES: Patient started HD in stable condition. VS WNL. FLACC score noted 0/10. Will continue to monitor.
--- NOTE | 2020-06-26 17:10 | Cardiac Electrophysiology PN ---
Assessment/Plan Assessment/Plan 1. Vent-dependent respirator failure. S/P tracheostomy. On 40% Fio2 Chest x-ray extensive bilateral pneumonia or ARDS. Off isolation EF 50%. Ruled out for PA. BNP 89799. On iv Abx 2. Tachycardia, likely due to respiratory failure. 3. Right femoral vein DVT. S/P IVC filter 06/18 4. Dysphagia, status post PEG placement. 5. Renal failure. S/P Right IJ Iron and HD by Dr. Honeycutt. 6. Severe anemia, S/P PRBC 7. High LFTs, s/p CT abdomen and pelvis and HIDA FU Dr Stringer 8. Transient bradycardia, resolved DW RN Subjective Subjective On the Vent off isolation. On 40% Fio2 and PEEP. S/P IVC filter and PRBC S/P Right IJ Iron and first HD 06/21/20 Had GEAR HOBBER as HR dropped to 30 at 4 am Objective Last 24 Hour Vital Signs Date Time Temp Pulse Resp B/P (MAP) Pulse Ox O2 Delivery O2 Flow Rate FiO2 06/26/20 16:00 61 06/26/20 16:00 98.1 64 19 117/65 (82) 100 06/26/20 16:00 Mechanical Ventilator 06/26/20 16:00 40 06/26/20 15:09 62 20 40 06/26/20 13:10 59 23 40 06/26/20 12:00 Mechanical Ventilator 06/26/20 12:00 98.0 58 19 113/60 (77) 100 06/26/20 12:00 58 06/26/20 12:00 40 06/26/20 11:22 58 25 40 06/26/20 09:24 60 24 40 06/26/20 08:00 Mechanical Ventilator 06/26/20 08:00 96.9 62 18 122/73 (89) 100 06/26/20 08:00 40 06/26/20 08:00 61 06/26/20 07:20 62 26 40 06/26/20 04:51 62 17 40 06/26/20 04:25 63 22 96 06/26/20 04:00 Mechanical Ventilator 06/26/20 04:00 97.5 64 20 132/74 (93) 100 06/26/20 04:00 67 06/26/20 04:00 40 06/26/20 03:30 67 25 40 06/26/20 01:30 67 25 40 06/26/20 00:00 97.1 70 20 138/72 (94) 100 06/26/20 00:00 40 06/26/20 00:00 69 06/26/20 00:00 Mechanical Ventilator 06/25/20 23:20 69 28 40 06/25/20 21:11 62 20 40 06/25/20 20:00 97.1 60 20 142/74 (96) 100 06/25/20 20:00 40 06/25/20 20:00 64 06/25/20 20:00 Mechanical Ventilator 06/25/20 19:12 64 18 40 Intake and Output 06/25/20 06/26/20 19:00 07:00 Intake Total 840 ml 440 ml Output Total 200 ml 700 ml Balance 640 ml -260 ml Intake Oral 450 ml Free Water 50 ml Tube Feeding 280 ml 440 ml Other 60 ml Output Urine Total 200 ml 700 ml # Bowel Movements 2 2 Laboratory Tests Test 06/25/20 18:10 06/26/20 01:51 06/26/20 04:07 06/26/20 04:25 POC Whole Blood Glucose 134 MG/DL (74-106) H 136 MG/DL (74-106) H Pending White Blood Count 9.7 K/UL (4.8-10.8) Red Blood Count 2.77 M/UL (4.70-6.10) L Hemoglobin 8.1 G/DL (14.2-18.0) L Hematocrit 26.7 % (42.0-52.0) L Mean Corpuscular Volume 96 FL (80-99) Mean Corpuscular Hemoglobin 29.3 PG (27.0-31.0) Mean Corpuscular Hemoglobin Concent 30.3 G/DL (32.0-36.0) L Red Cell Distribution Width 16.0 % (11.6-14.8) H Platelet Count 154 K/UL (150-450) Mean Platelet Volume 11.5 FL (6.5-10.1) H Neutrophils (%) (Auto) 75.7 % (45.0-75.0) H Lymphocytes (%) (Auto) 10.6 % (20.0-45.0) L Monocytes (%) (Auto) 7.3 % (1.0-10.0) Eosinophils (%) (Auto) 6.1 % (0.0-3.0) H Basophils (%) (Auto) 0.4 % (0.0-2.0) Prothrombin Time 13.4 SEC (9.30-11.50) H Prothromb Time International Ratio 1.2 (0.9-1.1) H Sodium Level 133 MMOL/L (136-145) L Potassium Level 4.0 MMOL/L (3.5-5.1) Chloride Level 99 MMOL/L (98-107) Carbon Dioxide Level 30 MMOL/L (21-32) Anion Gap 4 mmol/L (5-15) L Blood Urea Nitrogen 76 mg/dL (7-18) H Creatinine 4.6 MG/DL (0.55-1.30) H Estimat Glomerular Filtration Rate 16.2 mL/min (>60) Glucose Level 151 MG/DL (74-106) H Lactic Acid Level 1.00 mmol/L (0.4-2.0) Calcium Level 8.6 MG/DL (8.5-10.1) Phosphorus Level 3.5 MG/DL (2.5-4.9) Total Bilirubin 0.4 MG/DL (0.2-1.0) Gamma Glutamyl Transpeptidase 135 U/L (5-85) H Aspartate Amino Transf (AST/SGOT) 408 U/L (15-37) H Alanine Aminotransferase (ALT/SGPT) 558 U/L (12-78) H Alkaline Phosphatase 784 U/L (46-116) H Ammonia 59 umol/L (11-32) H Total Protein 7.3 G/DL (6.4-8.2) Albumin 1.5 G/DL (3.4-5.0) L Globulin 5.8 g/dL Albumin/Globulin Ratio 0.3 (1.0-2.7) L Test 06/26/20 06:36 06/26/20 12:55 POC Whole Blood Glucose 131 MG/DL (74-106) H 152 MG/DL (74-106) H Microbiology Date/Time Source Procedure Growth Status 06/24/20 04:00 Urine,Clean Catch Urine Culture - Final NO GROWTH AFTER 48 HOURS Complete Objective HEAD AND NECK: Status post tracheostomy. Right IJ Iron in place LUNGS: Coarse rhonchi and basilar rales. CARDIOVASCULAR: Shows irregular S1 and S2 with no gallop. ABDOMEN: Soft. Status post G-tube. EXTREMITIES: No pitting edema. Lance Mcguire MD Jun 26, 2020 17:10
--- NOTE | 2020-06-26 17:30 | NUR ---
NURSE NOTES: Patient finished HD in stable condition. HD nurse reported 1L output for patient. Catheter dressing changed by HD nurse. Patient denies pain at this time. No apparent distress noted. Will continue to monitor.
--- NOTE | 2020-06-26 19:15 | NUR ---
NURSE HAND-OFF REPORT: Important Events on Shift: HD done today. Patient Status: Stable Diet: GT feeding Pending Orders: Pending Results/Labs: Pending MD notification: Latest Vital Signs: Temperature 98.1 , Pulse 72 , B/P 117 /65 , Respiratory Rate 23 , O2 SAT 100 , Mechanical Ventilator, O2 Flow Rate 15.0 . Vital Sign Comment: EKG Rhythm: Sinus Bradycardia Rhythm change?: N MD Notified?: N -Dr. Ruel BENDER Response: No New Orders Received Latest [place] Fall Score: 60 Fall Risk: High Risk Safety Measures: Call light Within Reach, Bed Alarm Zone 2, Side Rails Side Rails x3, Bed position Low and Locked. Fall Precautions: Yellow Socks Yellow Gown Door Sign Patient Fall Education Report given to MAX Tong.
--- NOTE | 2020-06-26 19:53 | NUR ---
NURSE NOTES: Report received from MAX Delatorre. Observed pt lying in the bed, confused, A/O x2. SR noted at this time. Tolerating current vent setting, Shiley 8, AC 16, TV 500, FIO2 40%, PEEP 5. GT running Nepro at 40cc/hr, intact. F/C intact, noted blood clots noted in F/C, irrigation done, will continue to monitor. Non-tunnel catheter for HD on R IJ noted, inatct. L FA 20G IV noted, intact. Bed in the lowest position. Side rails up x3. Will continue to monitor.
--- NOTE | 2020-06-26 20:00 | NUR ---
NURSE NOTES: Noted pt temperature of 93.4 (Axillary). Pt refused to be on blanket and florina hugger. No other distress noted, no ams, no sob, vital stable, denies pain. Will continue to monitor.
[2020-06-26] MEDS: Dyna-Hex 2% Top Sol 2oz TOPIC SCH (20:17)
--- NOTE | 2020-06-26 23:52 | NUR ---
NURSE NOTES: Pt sleeping in the bed. Noted Temp of 93.5, refused blanket and florina hugger, explained risks and benfits, still refused. Reposition done. Oral care refused. No distress on geovani wrists. Will continue to monitor.
[2020-06-27] VITALS: BP 150/92
--- NOTE | 2020-06-27 | NUR ---
NURSE NOTES: Patient assessment performed. Patient repositioned, oral care performed, ROM performed. No apparent distress at this time. VSS. Patient is calm and collected. No new changes. Addendum: 06/28/20 at 0541 by DAREK QUEZADA RN NURSE NOTES: disregard this note
--- NOTE | 2020-06-27 00:01 | Psychiatric Progress Note ---
Psychiatry Progress Note Psychiatry Progress Note Subjective the pt still needs prns agitation Medications Current Medications Medications (Trade) Dose Ordered Sig/Maryjane Route PRN Reason Start Time Stop Time Status Last Admin Dose Admin Acetaminophen (Tylenol) 650 mg Q4H PRN GT Mild Pain (Pain Scale 1-3) 06/18/20 23:00 07/18/20 22:59 Acetaminophen (Tylenol) 650 mg Q4HR PRN GT FEVER 06/14/20 09:45 07/14/20 09:44 06/19/20 20:45 Aluminum Hydroxide (Amphojel) 1,920 mg Q6H GT 06/17/20 10:00 07/17/20 09:59 06/26/20 22:07 Ascorbic Acid (Vitamin C) 500 mg DAILY ORAL 06/16/20 09:00 07/16/20 08:59 06/26/20 09:06 Chlorhexidine Gluconate (Inés-Hex 2%) 1 applic DAILY@1999 TOPIC 06/21/20 20:00 09/19/20 19:59 06/26/20 20:17 Dextrose (Dextrose 50%) 25 ml Q30M PRN IV Hypoglycemia 06/14/20 03:45 09/12/20 03:44 Dextrose (Dextrose 50%) 50 ml Q30M PRN IV Hypoglycemia 06/14/20 03:45 09/12/20 03:44 Epoetin Bonilla (Epoetin Bonilla-EPBX(NON ESRD)) 10,000 unit TUE-TUE-TUE SUBQ 06/18/20 21:00 09/16/20 20:59 06/25/20 21:16 Haloperidol Lactate (Haldol) 5 mg Q6H PRN IM Agitation 06/21/20 23:15 08/05/20 23:14 06/25/20 18:17 Levothyroxine Sodium (Synthroid) 50 mcg DAILY@0630 ORAL 06/25/20 06:30 07/25/20 06:29 06/26/20 06:08 Linezolid (Zyvox) 600 mg EVERY 12 HOURS GT 06/23/20 21:00 07/18/20 23:59 06/26/20 20:17 Pantoprazole (Protonix) 40 mg EVERY 12 HOURS IVP 06/14/20 11:45 07/14/20 11:44 06/26/20 20:17 Neurological/Psychiatric: Reports: anxiety; Denies: no symptoms, depressed, emotional problems, headache, numbness, paresthesia, pre-existing deficit, seizure, tingling, tremors, weakness, other Allergies: Coded Allergies: No Known Allergies (Unverified , 06/13/20) Objective Data Height (Feet): 5 Height (Inches): 8.00 Weight (Pounds): 143 General Appearance: alert, confused, agitated Additional Comments: awake, eyes open. Unable to communicate. Mood is anxious and depressed. Affect is blunted, congruent with mood. Thought process concrete. Thought content, no suicidal or homicidal ideation. Thought content is impaired. Insight and judgment is impaired. Assessment/Plan [place] I: ASSESSMENT: [place] I dementia. [place] II Deferred. [place] III As above. [place] IV Low. [place] V 20. PLAN: 1. Haldol IM p.r.n. 2. Patient is on bilateral restraints. 3. Continue to follow and readjust the medications. Status: progressing Status Narrative ASSESSMENT: [place] I dementia. [place] II Deferred. [place] III As above. [place] IV Low. [place] V 20. PLAN: 1. Haldol IM p.r.n. 2. Patient is on bilateral restraints. 3. Continue to follow and readjust the medications. Assessment/Plan: ASSESSMENT: [place] I dementia. [place] II Deferred. [place] III As above. [place] IV Low. [place] V 20. PLAN: 1. Haldol IM p.r.n. 2. Patient is on bilateral restraints. 3. Continue to follow and readjust the medications. Neftaly Delacruz MD Jun 27, 2020 00:01
[2020-06-27 04:00] VITALS: BP 117/60
[2020-06-27] MEDS: Aluminum Hydroxide Gel Susp 15ml GT SCH ×4 (04:00→21:04)
--- NOTE | 2020-06-27 04:00 | NUR ---
NURSE NOTES: Pt sleeping in the bed. SR on monitoring engineer. Tolerating current vent setting. F/C; hematuria noted, irrigation done. VS stable. Reposition done. Oral care given. Will continue to monitor.
[2020-06-27 04:50] LABS: HEMATOCRIT 17.4 % (42.0-52.0); MEAN CORPUSCULAR VOLUME 94 FL (80-99); PLATELET COUNT 104 K/UL (150-450); RED BLOOD COUNT 1.84 M/UL (4.70-6.10); RED CELL DISTRIBUTION WIDTH 16.3 % (11.6-14.8); WHITE BLOOD COUNT 14.2 K/UL (4.8-10.8)
[2020-06-27 05:10] LABS: ALBUMIN 1.6 G/DL (3.4-5.0); ALBUMIN/GLOBULIN RATIO 0.3 (1.0-2.7); BILIRUBIN,TOTAL 0.4 MG/DL (0.2-1.0); CALCIUM 8.3 MG/DL (8.5-10.1); CREATININE 3.2 MG/DL (0.55-1.30)
[2020-06-27 05:21] LABS: HEMOGLOBIN 5.6 G/DL (14.2-18.0)
--- NOTE | 2020-06-27 06:38 | General Progress Note ---
Subjective ROS Limited/Unobtainable: Yes Allergies: Coded Allergies: No Known Allergies (Unverified , 06/13/20) Subjective events noted interval notes reviewed glucose values are stable Item Value Date Time Bedside Blood Glucose 159 mg/dl H 06/27/20 0607 Bedside Blood Glucose 154 mg/dl H 06/27/20 0000 Bedside Blood Glucose 121 mg/dl H 06/26/20 1800 Bedside Blood Glucose 151 mg/dl H 06/26/20 1200 Bedside Blood Glucose 131 mg/dl H 06/26/20 0600 Bedside Blood Glucose 136 mg/dl H 06/26/20 0000 Objective Last 24 Hour Vital Signs Date Time Temp Pulse Resp B/P (MAP) Pulse Ox O2 Delivery O2 Flow Rate FiO2 06/27/20 05:22 66 29 50 06/27/20 04:00 93.0 93 20 117/60 (79) 100 06/27/20 04:00 Mechanical Ventilator 06/27/20 04:00 40 06/27/20 04:00 62 06/27/20 03:09 63 27 50 06/27/20 01:27 64 28 50 06/27/20 00:00 Mechanical Ventilator 06/27/20 00:00 65 06/27/20 00:00 93.0 93 19 150/92 (111) 100 06/26/20 23:30 65 26 50 06/26/20 21:23 66 31 50 06/26/20 20:00 67 06/26/20 20:00 40 06/26/20 20:00 Mechanical Ventilator 06/26/20 20:00 93.0 69 19 118/72 (87) 100 06/26/20 19:30 68 25 50 06/26/20 17:20 72 23 40 06/26/20 16:00 61 06/26/20 16:00 98.1 64 19 117/65 (82) 100 06/26/20 16:00 Mechanical Ventilator 06/26/20 16:00 40 06/26/20 15:09 62 20 40 06/26/20 13:10 59 23 40 06/26/20 12:00 Mechanical Ventilator 06/26/20 12:00 98.0 58 19 113/60 (77) 100 06/26/20 12:00 58 06/26/20 12:00 40 06/26/20 11:22 58 25 40 11/19/20 09:24 60 24 40 06/26/20 08:00 Mechanical Ventilator 06/26/20 08:00 96.9 62 18 122/73 (89) 100 06/26/20 08:00 40 06/26/20 08:00 61 06/26/20 07:20 62 26 40 Intake and Output 06/26/20 06/27/20 19:00 07:00 Intake Total 580 ml 550 ml Output Total 1350 ml Balance -770 ml 550 ml Free Water 100 ml 150 ml Tube Feeding 480 ml 400 ml Output Urine Total 350 ml Hemodialysis UF 1000 ml # Bowel Movements 1 1 Laboratory Tests 06/26/20 12:55: POC Whole Blood Glucose 152H 06/26/20 18:28: POC Whole Blood Glucose 120H 06/26/20 23:28: POC Whole Blood Glucose 154H 06/27/20 03:25: White Blood Count 14.2H, Red Blood Count 1.84L, Hemoglobin 5.6#*L, Hematocrit 17.4#L, Mean Corpuscular Volume 94, Mean Corpuscular Hemoglobin 30.3, Mean Corpuscular Hemoglobin Concent 32.2, Red Cell Distribution Width 16.3H, Platelet Count 104L, Mean Platelet Volume 11.5H, Neutrophils (%) (Auto) , Lymphocytes (%) (Auto) , Monocytes (%) (Auto) , Eosinophils (%) (Auto) , Basophils (%) (Auto) , Neutrophils % (Manual) [Pending], Lymphocytes % (Manual) [Pending], Platelet Estimate [Pending], Platelet Morphology [Pending], Sodium Level 135L, Potassium Level 4.0, Chloride Level 102, Carbon Dioxide Level 32, Anion Gap 1L, Blood Urea Nitrogen 49H, Creatinine 3.2H, Estimat Glomerular Filtration Rate 24.7, Glucose Level 173H, Calcium Level 8.3L, Total Bilirubin 0.4, Aspartate Amino Transf (AST/SGOT) 206H, Alanine Aminotransferase (ALT/SGPT) 327H, Alkaline Phosphatase 596H, Total Protein 6.3L, Albumin 1.6L, Globulin 4.7, Albumin/Globulin Ratio 0.3L 06/27/20 06:01: POC Whole Blood Glucose 159H Height (Feet): 5 Height (Inches): 8.00 Weight (Pounds): 143 General Appearance: no apparent distress Cardiovascular: normal peripheral pulses Respiratory/Chest: decreased breath sounds Abdomen: normal bowel sounds Objective Current Medications Medications (Trade) Dose Ordered Sig/Maryjane Route PRN Reason Start Time Stop Time Status Last Admin Dose Admin Acetaminophen (Tylenol) 650 mg Q4H PRN GT Mild Pain (Pain Scale 1-3) 06/18/20 23:00 07/18/20 22:59 Acetaminophen (Tylenol) 650 mg Q4HR PRN GT FEVER 06/14/20 09:45 07/14/20 09:44 06/19/20 20:45 Aluminum Hydroxide (Amphojel) 1,920 mg Q6H GT 06/17/20 10:00 07/17/20 09:59 06/26/20 22:07 Ascorbic Acid (Vitamin C) 500 mg DAILY ORAL 06/16/20 09:00 07/16/20 08:59 06/26/20 09:06 Chlorhexidine Gluconate (Inés-Hex 2%) 1 applic DAILY@1999 TOPIC 06/21/20 20:00 09/19/20 19:59 06/26/20 20:17 Dextrose (Dextrose 50%) 25 ml Q30M PRN IV Hypoglycemia 06/14/20 03:45 09/12/20 03:44 Dextrose (Dextrose 50%) 50 ml Q30M PRN IV Hypoglycemia 06/14/20 03:45 09/12/20 03:44 Epoetin Bonilla (Epoetin Bonilla-EPBX(NON ESRD)) 10,000 unit TUE-TUE-TUE SUBQ 06/18/20 21:00 09/16/20 20:59 06/25/20 21:16 Haloperidol Lactate (Haldol) 5 mg Q6H PRN IM Agitation 06/21/20 23:15 08/05/20 23:14 06/25/20 18:17 Levothyroxine Sodium (Synthroid) 50 mcg DAILY@0630 ORAL 06/25/20 06:30 07/25/20 06:29 06/27/20 06:17 Linezolid (Zyvox) 600 mg EVERY 12 HOURS GT 06/23/20 21:00 07/18/20 23:59 06/26/20 20:17 Pantoprazole (Protonix) 40 mg EVERY 12 HOURS IVP 06/14/20 11:45 07/14/20 11:44 06/26/20 20:17 Assessment/Plan Problem List: (1) History of left below knee amputation ICD Codes: Z89.512 - Acquired absence of left leg below knee SNOMED: 278350948, [id number] (2) Surgical wound dehiscence ICD Codes: T81.31XA - Disruption of external operation (surgical) wound, not elsewhere classified, initial encounter SNOMED: 33863962 (3) Hyperkalemia ICD Codes: E87.5 - Hyperkalemia SNOMED: 22772102 (4) Acute respiratory failure ICD Codes: J96.00 - Acute respiratory failure, unspecified whether with hypoxia or hypercapnia SNOMED: 80960992 Qualifiers: Qualified Codes: J96.02 - Acute respiratory failure with hypercapnia (5) Hypothyroidism ICD Codes: E03.9 - Hypothyroidism, unspecified SNOMED: 26814002 (6) Hyperglycemia ICD Codes: R73.9 - Hyperglycemia, unspecified SNOMED: 35739517 Status: progressing Assessment/Plan: continue levothyroxine 50 mcg daily repeat thyroid function in 1-2 weeks continue glucose monitoring Davy Ramos MD Jun 27, 2020 06:38
--- NOTE | 2020-06-27 06:49 | NUR ---
NURSE NOTES: notified regarding hgb, and 2 PRBC order received and will be carried out.
--- NOTE | 2020-06-27 07:17 | NUR ---
NURSE HAND-OFF REPORT: Important Events on Shift: F/C irrigation. Hgb5.6, 2prbc ordered, and endorsed. Patient Status: no acute distress at this time. vital signs stable. Diet: Nepro 40cc/hr Pending Orders: n Pending Results/Labs:n Pending MD notification:n Latest Vital Signs: Temperature 93.0 , Pulse 66 , B/P 117 /60 , Respiratory Rate 29 , O2 SAT 100 , Mechanical Ventilator, O2 Flow Rate 15.0 . Vital Sign Comment: [] EKG Rhythm: Sinus Rhythm Rhythm change?: N MD Notified?: N -Dr. Ruel BENDER Response: No New Orders Received Latest [place] Fall Score: 60 Fall Risk: High Risk Safety Measures: Call light Within Reach, Bed Alarm Zone 2, Side Rails Side Rails x3, Bed position Low and Locked. Fall Precautions: Yellow Socks Yellow Gown Door Sign Patient Fall Education Report given to MAX Ardon.
--- NOTE | 2020-06-27 07:20 | NUR ---
NURSE NOTES: Patient received from MAX Christensen under the care of Dr. Apple for the admitting dx. of anemia, respiratory failure, KERRI, and cellulitis. Patient NKA and full code status. 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 Fall, isolation, and aspiration precaution observed and maintained at all times. Patient is alert and oriented x2, responsive with gestures and mouthing words. Patient tolerating vent settings well. No apparent distress or discomfort noted. Denies pain at this time. Will continue to monitor.
[2020-06-27 08:00] VITALS: BP 139/68
[2020-06-27] MEDS: Ascorbic Acid 500mg tab ORAL SCH (09:09)
[2020-06-27] MEDS: Pantoprazole Inj IVP SCH (09:09)
--- NOTE | 2020-06-27 09:54 | Hematology/Onc Progress Note ---
Assessment/Plan Assessment/Plan ASSESSMENT AND PLAN: #. Anemia that is likely due to chronic disease, r/o gi bleeding --> anemia panel has been reviewed, ferritin is >2000 --> no e/o hemolysis is noted --> transfuse on prn basis --> blood consent has been signed --> hgb 7.4-->7.4-->7-->6.7-->8-->7.5-->8.4-->9.1->8.1-->5.6 --> folic acid is wnl --> 1 unit prbc 06/18 --> epogen has been started # Acute DVT in the distal right common femoral vein and profunda femoris vein. --> DUPLEX. Acute DVT in the distal right common femoral vein and profunda femoris vein. 2. No evidence of left lower extremity DVT. --> cannot anticoagulate at this time --> 06/17 s/p ivc filter placement --> hold off anticoag # Leukocytosis is likely due to b/l infiltrates --> on abx as per id -> ABX yolis/vanc-->yolis/linezolid--> yolis/levaq-->linezolid --> continue trend --> wbc 15-->12->9.5 # Respiratory failure in this patient with vent-dependent respiratory failure. 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 # Dysphagia --> status post PEG placement. # Renal failure. -> per Dr. Honeycutt. # Hyperkalemia and kayxelate as needed. # Dvt ppx scds Appreciate consultation and angela RN Subjective Constitutional: Denies: no symptoms, chills, fever, malaise, weakness, other HEENT: Denies: no symptoms, eye pain, blurred vision, tearing, double vision, ear pain, ear discharge, nose pain, nose congestion, throat pain, throat swelling, mouth pain, mouth swelling, other Cardiovascular: Denies: no symptoms, chest pain, edema, irregular heart rate, lightheadedness, palpitations, syncope, other Gastrointestinal/Abdominal: Denies: no symptoms, abdomen distended, abdominal pain, black stools, tarry stools, blood in stool, constipated, diarrhea, diffic ulty swallowing, nausea, poor appetite, poor fluid intake, rectal bleeding, vomiting, other Genitourinary: Denies: no symptoms, burning, discharge, frequency, flank pain, hematuria, incontinence, pain, urgency, other Neurologic/Psychiatric: Denies: no symptoms, anxiety, depressed, emotional problems, headache, numbness, paresthesia, pre-existing deficit, seizure, tingling, tremors, weakness, other Endocrine: Denies: no symptoms, excessive sweating, flushing, intolerance to cold, intolerance to heat, increased hunger, increased thirst, increased urine, unexplained weight gain, unexplained weight loss, other Hematologic/Lymphatic: Denies: no symptoms, anemia, easy bleeding, easy bruising, adenopathy, other Allergies: Coded Allergies: No Known Allergies (Unverified , 06/13/20) Subjective 06/16 meds noted, labs reviewed, vent to trach, for ivc filter potentially 06/17 labs noted, meds reviewed, for ivc filter once covid neg 06/18 labs are noted, on vent and gt, 1 unit prbc ordered 06/19 labs pending, is s/p ivcf placement yesterday 06/20 for hd nontunneled cathter placement, no bleeding 06/22 labs noted, no bleeding, found down overnight, got ct brain, is neg 06/23 overnight is agitated and requiring restraints 06/24 labs noted, meds reviewed, hgb pending for am, restraints 06/25 labs reviewed, meds noted, no bleeding, hgb improved 06/26 per Rn, with rapid response overnight hr is improved, meds noted 06/27 labs reviewed, meds noted, no bleeding, hgb 5.6, wbc elevated, to get 2 unit prbc Objective Objective Current Medications Medications (Trade) Dose Ordered Sig/Maryjane Route PRN Reason Start Time Stop Time Status Last Admin Dose Admin Acetaminophen (Tylenol) 650 mg Q4H PRN GT Mild Pain (Pain Scale 1-3) 06/18/20 23:00 07/18/20 22:59 Acetaminophen (Tylenol) 650 mg Q4HR PRN GT FEVER 06/14/20 09:45 07/14/20 09:44 06/19/20 20:45 Aluminum Hydroxide (Amphojel) 1,920 mg Q6H GT 06/17/20 10:00 07/17/20 09:59 06/27/20 09:10 Ascorbic Acid (Vitamin C) 500 mg DAILY ORAL 06/16/20 09:00 07/16/20 08:59 06/27/20 09:09 Chlorhexidine Gluconate (Inés-Hex 2%) 1 applic DAILY@2000 TOPIC 06/21/20 20:00 09/19/20 19:59 06/26/20 20:17 Dextrose (Dextrose 50%) 25 ml Q30M PRN IV Hypoglycemia 06/14/20 03:45 09/12/20 03:44 Dextrose (Dextrose 50%) 50 ml Q30M PRN IV Hypoglycemia 06/14/20 03:45 09/12/20 03:44 Epoetin Bonilla (Epoetin Bonilla-EPBX(NON ESRD)) 10,000 unit TUE-TUE-TUE SUBQ 06/18/20 21:00 09/16/20 20:59 06/25/20 21:16 Haloperidol Lactate (Haldol) 5 mg Q6H PRN IM Agitation 06/21/20 23:15 08/05/20 23:14 06/25/20 18:17 Levothyroxine Sodium (Synthroid) 50 mcg DAILY@0630 ORAL 06/25/20 06:30 07/25/20 06:29 06/27/20 06:17 Linezolid (Zyvox) 600 mg EVERY 12 HOURS GT 06/23/20 21:00 07/18/20 23:59 06/27/20 09:10 Pantoprazole (Protonix) 40 mg EVERY 12 HOURS IVP 06/14/20 11:45 07/14/20 11:44 06/27/20 09:09 Last 24 Hour Vital Signs Date Time Temp Pulse Resp B/P (MAP) Pulse Ox O2 Delivery O2 Flow Rate FiO2 06/27/20 08:00 60 06/27/20 07:07 60 26 50 06/27/20 05:22 66 29 50 06/27/20 04:00 93.0 93 20 117/60 (79) 100 06/27/20 04:00 Mechanical Ventilator 06/27/20 04:00 40 11/20/20 04:00 62 06/27/20 03:09 63 27 50 06/27/20 01:27 64 28 50 06/27/20 00:00 Mechanical Ventilator 06/27/20 00:00 65 06/27/20 00:00 93.0 93 19 150/92 (111) 100 06/26/20 23:30 65 26 50 06/26/20 21:23 66 31 50 06/26/20 20:00 67 06/26/20 20:00 40 06/26/20 20:00 Mechanical Ventilator 06/26/20 20:00 93.0 69 19 118/72 (87) 100 06/26/20 19:30 68 25 50 06/26/20 17:20 72 23 40 06/26/20 16:00 61 06/26/20 16:00 98.1 64 19 117/65 (82) 100 06/26/20 16:00 Mechanical Ventilator 06/26/20 16:00 40 06/26/20 15:09 62 20 40 06/26/20 13:10 59 23 40 06/26/20 12:00 Mechanical Ventilator 06/26/20 12:00 98.0 58 19 113/60 (77) 100 06/26/20 12:00 58 06/26/20 12:00 40 06/26/20 11:22 58 25 40 06/26/20 09:24 60 24 40 06/26/20 08:00 Mechanical Ventilator 06/26/20 08:00 96.9 62 18 122/73 (89) 100 06/26/20 08:00 40 06/26/20 08:00 61 06/26/20 07:20 62 26 40 06/26/20 04:51 62 17 40 06/26/20 04:25 63 22 96 06/26/20 04:00 Mechanical Ventilator 06/26/20 04:00 97.5 64 20 132/74 (93) 100 06/26/20 04:00 67 06/26/20 04:00 40 06/26/20 03:30 67 25 40 06/26/20 01:30 67 25 40 06/26/20 00:00 97.1 70 20 138/72 (94) 100 06/26/20 00:00 40 06/26/20 00:00 69 06/26/20 00:00 Mechanical Ventilator 06/25/20 23:20 69 28 40 06/25/20 21:11 62 20 40 06/25/20 20:00 97.1 60 20 142/74 (96) 100 06/25/20 20:00 40 06/25/20 20:00 64 06/25/20 20:00 Mechanical Ventilator 06/25/20 19:12 64 18 40 06/25/20 16:38 63 24 50 06/25/20 16:00 93.1 61 20 135/89 (104) 100 06/25/20 16:00 Mechanical Ventilator 06/25/20 16:00 60 06/25/20 16:00 40 06/25/20 15:22 60 06/25/20 15:09 61 23 50 06/25/20 13:08 64 24 50 06/25/20 12:00 Mechanical Ventilator 06/25/20 12:00 90.9 67 20 116/67 (83) 100 06/25/20 12:00 40 Intake and Output 06/26/20 06/27/20 19:00 07:00 Intake Total 580 ml 550 ml Output Total 1350 ml 250 ml Balance -770 ml 300 ml Free Water 100 ml 150 ml Tube Feeding 480 ml 400 ml Output Urine Total 350 ml 250 ml Hemodialysis UF 1000 ml # Bowel Movements 1 1 Labs Test 06/24/20 12:03 06/24/20 17:31 06/25/20 02:36 06/25/20 04:35 POC Whole Blood Glucose 170 MG/DL (74-106) White Blood Count 10.9 K/UL (4.8-10.8) Red Blood Count 2.78 M/UL (4.70-6.10) Hemoglobin 8.1 G/DL (14.2-18.0) Hematocrit 26.5 % (42.0-52.0) Mean Corpuscular Volume 95 FL (80-99) Mean Corpuscular Hemoglobin 29.2 PG (27.0-31.0) Mean Corpuscular Hemoglobin Concent 30.6 G/DL (32.0-36.0) Red Cell Distribution Width 15.8 % (11.6-14.8) Platelet Count 160 K/UL (150-450) Mean Platelet Volume 11.2 FL (6.5-10.1) Neutrophils (%) (Auto) 81.5 % (45.0-75.0) Lymphocytes (%) (Auto) 9.5 % (20.0-45.0) Monocytes (%) (Auto) 6.2 % (1.0-10.0) Eosinophils (%) (Auto) 2.6 % (0.0-3.0) Basophils (%) (Auto) 0.2 % (0.0-2.0) Sodium Level 133 MMOL/L (136-145) Potassium Level 3.9 MMOL/L (3.5-5.1) Chloride Level 100 MMOL/L (98-107) Carbon Dioxide Level 33 MMOL/L (21-32) Anion Gap 0 mmol/L (5-15) Blood Urea Nitrogen 64 mg/dL (7-18) Creatinine 4.0 MG/DL (0.55-1.30) Estimat Glomerular Filtration Rate 19.1 mL/min (>60) Glucose Level 126 MG/DL (74-106) Calcium Level 8.5 MG/DL (8.5-10.1) Hepatitis A IgM Antibody Negative (Negative) Monoscreen Negative (Negative) Test 06/25/20 04:44 06/25/20 13:14 06/25/20 16:22 06/25/20 18:10 POC Whole Blood Glucose 115 MG/DL (74-106) 84 MG/DL (74-106) 134 MG/DL (74-106) Test 06/26/20 01:51 06/26/20 04:07 06/26/20 04:25 06/26/20 06:36 POC Whole Blood Glucose 136 MG/DL (74-106) 131 MG/DL (74-106) White Blood Count 9.7 K/UL (4.8-10.8) Red Blood Count 2.77 M/UL (4.70-6.10) Hemoglobin 8.1 G/DL (14.2-18.0) Hematocrit 26.7 % (42.0-52.0) Mean Corpuscular Volume 96 FL (80-99) Mean Corpuscular Hemoglobin 29.3 PG (27.0-31.0) Mean Corpuscular Hemoglobin Concent 30.3 G/DL (32.0-36.0) Red Cell Distribution Width 16.0 % (11.6-14.8) Platelet Count 154 K/UL (150-450) Mean Platelet Volume 11.5 FL (6.5-10.1) Neutrophils (%) (Auto) 75.7 % (45.0-75.0) Lymphocytes (%) (Auto) 10.6 % (20.0-45.0) Monocytes (%) (Auto) 7.3 % (1.0-10.0) Eosinophils (%) (Auto) 6.1 % (0.0-3.0) Basophils (%) (Auto) 0.4 % (0.0-2.0) Prothrombin Time 13.4 SEC (9.30-11.50) Prothromb Time International Ratio 1.2 (0.9-1.1) Sodium Level 133 MMOL/L (136-145) Potassium Level 4.0 MMOL/L (3.5-5.1) Chloride Level 99 MMOL/L (98-107) Carbon Dioxide Level 30 MMOL/L (21-32) Anion Gap 4 mmol/L (5-15) Blood Urea Nitrogen 76 mg/dL (7-18) Creatinine 4.6 MG/DL (0.55-1.30) Estimat Glomerular Filtration Rate 16.2 mL/min (>60) Glucose Level 151 MG/DL (74-106) Lactic Acid Level 1.00 mmol/L (0.4-2.0) Calcium Level 8.6 MG/DL (8.5-10.1) Phosphorus Level 3.5 MG/DL (2.5-4.9) Total Bilirubin 0.4 MG/DL (0.2-1.0) Gamma Glutamyl Transpeptidase 135 U/L (5-85) Aspartate Amino Transf (AST/SGOT) 408 U/L (15-37) Alanine Aminotransferase (ALT/SGPT) 558 U/L (12-78) Alkaline Phosphatase 784 U/L (46-116) Ammonia 59 umol/L (11-32) Total Protein 7.3 G/DL (6.4-8.2) Albumin 1.5 G/DL (3.4-5.0) Globulin 5.8 g/dL Albumin/Globulin Ratio 0.3 (1.0-2.7) Test 06/26/20 12:55 06/26/20 18:28 06/26/20 23:28 06/27/20 03:25 POC Whole Blood Glucose 152 MG/DL (74-106) 120 MG/DL (74-106) 154 MG/DL (74-106) White Blood Count 14.2 K/UL (4.8-10.8) Red Blood Count 1.84 M/UL (4.70-6.10) Hemoglobin 5.6 G/DL (14.2-18.0) Hematocrit 17.4 % (42.0-52.0) Mean Corpuscular Volume 94 FL (80-99) Mean Corpuscular Hemoglobin 30.3 PG (27.0-31.0) Mean Corpuscular Hemoglobin Concent 32.2 G/DL (32.0-36.0) Red Cell Distribution Width 16.3 % (11.6-14.8) Platelet Count 104 K/UL (150-450) Mean Platelet Volume 11.5 FL (6.5-10.1) Neutrophils (%) (Auto) % (45.0-75.0) Lymphocytes (%) (Auto) % (20.0-45.0) Monocytes (%) (Auto) % (1.0-10.0) Eosinophils (%) (Auto) % (0.0-3.0) Basophils (%) (Auto) % (0.0-2.0) Differential Total Cells Counted 100 Neutrophils % (Manual) 90 % (45-75) Lymphocytes % (Manual) 5 % (20-45) Monocytes % (Manual) 2 % (1-10) Eosinophils % (Manual) 3 % (0-3) Basophils % (Manual) 0 % (0-2) Band Neutrophils 0 % (0-8) Platelet Estimate Decreased Platelet Morphology Normal Hypochromasia 1+ Anisocytosis 1+ Sodium Level 135 MMOL/L (136-145) Potassium Level 4.0 MMOL/L (3.5-5.1) Chloride Level 102 MMOL/L (98-107) Carbon Dioxide Level 32 MMOL/L (21-32) Anion Gap 1 mmol/L (5-15) Blood Urea Nitrogen 49 mg/dL (7-18) Creatinine 3.2 MG/DL (0.55-1.30) Estimat Glomerular Filtration Rate 24.7 mL/min (>60) Glucose Level 173 MG/DL (74-106) Calcium Level 8.3 MG/DL (8.5-10.1) Total Bilirubin 0.4 MG/DL (0.2-1.0) Aspartate Amino Transf (AST/SGOT) 206 U/L (15-37) Alanine Aminotransferase (ALT/SGPT) 327 U/L (12-78) Alkaline Phosphatase 596 U/L (46-116) Total Protein 6.3 G/DL (6.4-8.2) Albumin 1.6 G/DL (3.4-5.0) Globulin 4.7 g/dL Albumin/Globulin Ratio 0.3 (1.0-2.7) Test 06/27/20 06:01 POC Whole Blood Glucose 159 MG/DL (74-106) Height (Feet): 5 Height (Inches): 8.00 Weight (Pounds): 143 Objective PHYSICAL EXAMINATION: VITAL SIGNS: reviewed HEAD AND NECK: Show status post tracheostomy. vent+ LUNGS: Coarse rhonchi and basilar rales. CARDIOVASCULAR: Shows irregular S1 and S2 with no gallop. ABDOMEN: Soft. Status post G-tube. EXTREMITIES: No pitting edema.++Left Jose Epperson MD Jun 27, 2020 09:54
--- NOTE | 2020-06-27 10:59 | NUR ---
RD ASSESSMENT & RECOMMENDATIONS SEE CARE ACTIVITY FOR COMPLETE ASSESSMENT DAILY ESTIMATED NEEDS: Needs based on Wound, critical care, underweight/ 55.5kg 25-33 (25-35 w/ HD) kcals/kg 8039-6271 (3537-5299) total kcals 1.25-2 g protein/kg 69-111 g total protein 25-30 mL/kg 1059-7323 total fluid mLs NUTRITION DIAGNOSIS: * Swallowing difficulty R/T respiratory status as evidenced by pt is trach/vent dep, PEG dep. CURRENT TF: Nepro @ 40ml/hr x 22 hrs (On Synthroid) ENTERAL NUTRITION RECOMMENDATIONS: Nepro @ 45ml/hr x 22 hrs (On Synthroid) to provide 960ml, 1728kcal, 78g prot, 698ml free water * Pt now on Synthroid, TF to be held 1 hr before and after Synthroid * Increase goal rate to 45ml/hr to better meet est needs * HOB over 30 degrees/ water flush per MD ADDITIONAL RECOMMENDATIONS: * Per SNF: HT=69" VE=124omw -> rec daily calibrated bedscale wt * Monitor lytes: elev K-> now wnl, phos wnl * Wound healing: RANDY BID + Nephrovite 1 tab qdaily . .
--- NOTE | 2020-06-27 11:20 | NUR ---
NURSE NOTES: Started blood transfusion. Patient in stable condition. VS WNL. Will continue to monitor.
--- NOTE | 2020-06-27 11:29 | Infectious Diseases Prog Note ---
Assessment/Plan Assessment/Plan IMPRESSION: Pneumonia with Pseudomonas & Stenotrophomonas treated Hypothermia COVID19 X 2: negative Ventilator-dependent respiratory failure, Diabetes mellitus type 2, Hypertension, History of left BKA, Hypertension, anemia, Major depression, Pressure ulcer, Elevated transaminase, Hyperkalemia. Anemia R leg DVT s/p IVC filter Sacral osteomyelitis Severe anemia Acute renal failure ESRD Hypercapnic respiratory failure Hematuria Thrombocytopenia Diverticulosis RECOMMENDATION: Change Linezolid back to Vancomycin until 07/18 Case was D/W RN Subjective ROS Limited/Unobtainable: Yes Constitutional: Reports: other - hypothemic Neurologic: Reports: confusion, other - on restraint Allergies: Coded Allergies: No Known Allergies (Unverified , 06/13/20) Objective Last 24 Hour Vital Signs Date Time Temp Pulse Resp B/P (MAP) Pulse Ox O2 Delivery O2 Flow Rate FiO2 06/27/20 08:00 96.5 55 20 139/68 (91) 100 06/27/20 08:00 60 06/27/20 08:00 Mechanical Ventilator 06/27/20 08:00 40 06/27/20 07:07 60 26 50 06/27/20 05:22 66 29 50 06/27/20 04:00 93.0 93 20 117/60 (79) 100 06/27/20 04:00 Mechanical Ventilator 06/27/20 04:00 40 06/27/20 04:00 62 06/27/20 03:09 63 27 50 06/27/20 01:27 64 28 50 06/27/20 00:00 Mechanical Ventilator 06/27/20 00:00 65 06/27/20 00:00 93.0 93 19 150/92 (111) 100 06/26/20 23:30 65 26 50 06/26/20 21:23 66 31 50 06/26/20 20:00 67 06/26/20 20:00 40 06/26/20 20:00 Mechanical Ventilator 06/26/20 20:00 93.0 69 19 118/72 (87) 100 06/26/20 19:30 68 25 50 06/26/20 17:20 72 23 40 06/26/20 16:00 61 06/26/20 16:00 98.1 64 19 117/65 (82) 100 06/26/20 16:00 Mechanical Ventilator 06/26/20 16:00 40 06/26/20 15:09 62 20 40 06/26/20 13:10 59 23 40 06/26/20 12:00 Mechanical Ventilator 06/26/20 12:00 98.0 58 19 113/60 (77) 100 06/26/20 12:00 58 06/26/20 12:00 40 Height (Feet): 5 Height (Inches): 8.00 Weight (Pounds): 143 HEENT: status post trach Respiratory/Chest: lungs clear, other - onventilator Cardiovascular: normal rate, other - RIJ HD line Abdomen: soft, non tender Extremities: other - Left BKA Skin: ulcers, other - sacral Neurologic/Psychiatric: alert, responsive Laboratory Tests Test 06/26/20 12:55 06/26/20 18:28 06/26/20 23:28 06/27/20 03:25 POC Whole Blood Glucose 152 MG/DL (74-106) H 120 MG/DL (74-106) H 154 MG/DL (74-106) H White Blood Count 14.2 K/UL (4.8-10.8) H Red Blood Count 1.84 M/UL (4.70-6.10) L Hemoglobin 5.6 G/DL (14.2-18.0) Hematocrit 17.4 % (42.0-52.0) #L Mean Corpuscular Volume 94 FL (80-99) Mean Corpuscular Hemoglobin 30.3 PG (27.0-31.0) Mean Corpuscular Hemoglobin Concent 32.2 G/DL (32.0-36.0) Red Cell Distribution Width 16.3 % (11.6-14.8) H Platelet Count 104 K/UL (150-450) L Mean Platelet Volume 11.5 FL (6.5-10.1) H Neutrophils (%) (Auto) % (45.0-75.0) Lymphocytes (%) (Auto) % (20.0-45.0) Monocytes (%) (Auto) % (1.0-10.0) Eosinophils (%) (Auto) % (0.0-3.0) Basophils (%) (Auto) % (0.0-2.0) Differential Total Cells Counted 100 Neutrophils % (Manual) 90 % (45-75) H Lymphocytes % (Manual) 5 % (20-45) L Monocytes % (Manual) 2 % (1-10) Eosinophils % (Manual) 3 % (0-3) Basophils % (Manual) 0 % (0-2) Band Neutrophils 0 % (0-8) Platelet Estimate Decreased L Platelet Morphology Normal Hypochromasia 1+ Anisocytosis 1+ Sodium Level 135 MMOL/L (136-145) L Potassium Level 4.0 MMOL/L (3.5-5.1) Chloride Level 102 MMOL/L (98-107) Carbon Dioxide Level 32 MMOL/L (21-32) Anion Gap 1 mmol/L (5-15) L Blood Urea Nitrogen 49 mg/dL (7-18) H Creatinine 3.2 MG/DL (0.55-1.30) H Estimat Glomerular Filtration Rate 24.7 mL/min (>60) Glucose Level 173 MG/DL (74-106) H Calcium Level 8.3 MG/DL (8.5-10.1) L Total Bilirubin 0.4 MG/DL (0.2-1.0) Aspartate Amino Transf (AST/SGOT) 206 U/L (15-37) H Alanine Aminotransferase (ALT/SGPT) 327 U/L (12-78) H Alkaline Phosphatase 596 U/L (46-116) H Total Protein 6.3 G/DL (6.4-8.2) L Albumin 1.6 G/DL (3.4-5.0) L Globulin 4.7 g/dL Albumin/Globulin Ratio 0.3 (1.0-2.7) L Test 06/27/20 06:01 POC Whole Blood Glucose 159 MG/DL (74-106) H Current Medications Medications (Trade) Dose Ordered Sig/Maryjane Route PRN Reason Start Time Stop Time Status Last Admin Dose Admin Acetaminophen (Tylenol) 650 mg Q4H PRN GT Mild Pain (Pain Scale 1-3) 06/18/20 23:00 07/18/20 22:59 Acetaminophen (Tylenol) 650 mg Q4HR PRN GT FEVER 06/14/20 09:45 07/14/20 09:44 06/19/20 20:45 Aluminum Hydroxide (Amphojel) 1,920 mg Q6H GT 06/17/20 10:00 07/17/20 09:59 06/27/20 09:10 Ascorbic Acid (Vitamin C) 500 mg DAILY ORAL 06/16/20 09:00 07/16/20 08:59 06/27/20 09:09 Chlorhexidine Gluconate (Inés-Hex 2%) 1 applic DAILY@1999 TOPIC 06/21/20 20:00 09/19/20 19:59 06/26/20 20:17 Dextrose (Dextrose 50%) 25 ml Q30M PRN IV Hypoglycemia 06/14/20 03:45 09/12/20 03:44 Dextrose (Dextrose 50%) 50 ml Q30M PRN IV Hypoglycemia 06/14/20 03:45 09/12/20 03:44 Epoetin Bonilla (Epoetin Bonilla-EPBX(NON ESRD)) 10,000 unit TUE-TUE-TUE SUBQ 06/18/20 21:00 09/16/20 20:59 06/25/20 21:16 Haloperidol Lactate (Haldol) 5 mg Q6H PRN IM Agitation 06/21/20 23:15 08/05/20 23:14 06/25/20 18:17 Lansoprazole (Prevacid) 30 mg BID ORAL 06/27/20 18:00 07/27/20 17:59 Levothyroxine Sodium (Synthroid) 50 mcg DAILY@0630 ORAL 06/25/20 06:30 07/25/20 06:29 06/27/20 06:17 Linezolid (Zyvox) 600 mg EVERY 12 HOURS GT 06/23/20 21:00 07/18/20 23:59 06/27/20 09:10 Paul Amador MD Jun 27, 2020 11:29
--- NOTE | 2020-06-27 11:33 | Pulmonology Progress Note ---
Subjective ROS Limited/Unobtainable: Yes Interval Events: FiO2 now 50%; Remains on vent. Constitutional: Reports: other - hypothemic HEENT: Repors: no symptoms Respiratory: Reports: no symptoms Cardiovascular: Reports: no symptoms Gastrointestinal/Abdominal: Reports: no symptoms Genitourinary: Reports: no symptoms Allergies: Coded Allergies: No Known Allergies (Unverified , 06/13/20) Objective Last 24 Hour Vital Signs Date Time Temp Pulse Resp B/P (MAP) Pulse Ox O2 Delivery O2 Flow Rate FiO2 06/27/20 08:00 96.5 55 20 139/68 (91) 100 06/27/20 08:00 60 06/27/20 08:00 Mechanical Ventilator 06/27/20 08:00 40 06/27/20 07:07 60 26 50 06/27/20 05:22 66 29 50 06/27/20 04:00 93.0 93 20 117/60 (79) 100 06/27/20 04:00 Mechanical Ventilator 06/27/20 04:00 40 06/27/20 04:00 62 06/27/20 03:09 63 27 50 06/27/20 01:27 64 28 50 06/27/20 00:00 Mechanical Ventilator 06/27/20 00:00 65 06/27/20 00:00 93.0 93 19 150/92 (111) 100 06/26/20 23:30 65 26 50 06/26/20 21:23 66 31 50 06/26/20 20:00 67 06/26/20 20:00 40 06/26/20 20:00 Mechanical Ventilator 06/26/20 20:00 93.0 69 19 118/72 (87) 100 06/26/20 19:30 68 25 50 06/26/20 17:20 72 23 40 06/26/20 16:00 61 06/26/20 16:00 98.1 64 19 117/65 (82) 100 06/26/20 16:00 Mechanical Ventilator 06/26/20 16:00 40 06/26/20 15:09 62 20 40 06/26/20 13:10 59 23 40 06/26/20 12:00 Mechanical Ventilator 06/26/20 12:00 98.0 58 19 113/60 (77) 100 06/26/20 12:00 58 06/26/20 12:00 40 Intake and Output 06/26/20 06/27/20 19:00 07:00 Intake Total 580 ml 550 ml Output Total 1350 ml 250 ml Balance -770 ml 300 ml Free Water 100 ml 150 ml Tube Feeding 480 ml 400 ml Output Urine Total 350 ml 250 ml Hemodialysis UF 1000 ml # Bowel Movements 1 1 General Appearance: no acute distress HEENT: status post trach Respiratory: chest wall non-tender, lungs clear Cardiovascular: normal peripheral pulses, normal rate Abdomen: normal bowel sounds Extremities: no cyanosis Laboratory Tests 06/26/20 12:55: POC Whole Blood Glucose 152H 06/26/20 18:28: POC Whole Blood Glucose 120H 06/26/20 23:28: POC Whole Blood Glucose 154H 06/27/20 03:25: White Blood Count 14.2H, Red Blood Count 1.84L, Hemoglobin 5.6#*L, Hematocrit 1 7.4#L, Mean Corpuscular Volume 94, Mean Corpuscular Hemoglobin 30.3, Mean Corpuscular Hemoglobin Concent 32.2, Red Cell Distribution Width 16.3H, Platelet Count 104L, Mean Platelet Volume 11.5H, Neutrophils (%) (Auto) , Lymphocytes (%) (Auto) , Monocytes (%) (Auto) , Eosinophils (%) (Auto) , Basophils (%) (Auto) , Differential Total Cells Counted 100, Neutrophils % (Manual) 90H, Lymphocytes % (Manual) 5L, Monocytes % (Manual) 2, Eosinophils % (Manual) 3, Basophils % (Manual) 0, Band Neutrophils 0, Platelet Estimate DecreasedL, Platelet Morphology Normal, Hypochromasia 1+, Anisocytosis 1+, Sodium Level 135L, Potassium Level 4.0, Chloride Level 102, Carbon Dioxide Level 32, Anion Gap 1L, Blood Urea Nitrogen 49H, Creatinine 3.2H, Estimat Glomerular Filtration Rate 24.7, Glucose Level 173H, Calcium Level 8.3L, Total Bilirubin 0.4, Aspartate Amino Transf (AST/SGOT) 206H, Alanine Aminotransferase (ALT/SGPT) 327H, Alkaline Phosphatase 596H, Total Protein 6.3L, Albumin 1.6L, Globulin 4.7, Albumin/Globulin Ratio 0.3L 06/27/20 06:01: POC Whole Blood Glucose 159H Current Medications Medications (Trade) Dose Ordered Sig/Maryjane Route PRN Reason Start Time Stop Time Status Last Admin Dose Admin Acetaminophen (Tylenol) 650 mg Q4H PRN GT Mild Pain (Pain Scale 1-3) 06/18/20 23:00 07/18/20 22:59 Acetaminophen (Tylenol) 650 mg Q4HR PRN GT FEVER 06/14/20 09:45 07/14/20 09:44 06/19/20 20:45 Aluminum Hydroxide (Amphojel) 1,920 mg Q6H GT 06/17/20 10:00 07/17/20 09:59 06/27/20 09:10 Ascorbic Acid (Vitamin C) 500 mg DAILY ORAL 06/16/20 09:00 07/16/20 08:59 06/27/20 09:09 Chlorhexidine Gluconate (Inés-Hex 2%) 1 applic DAILY@1999 TOPIC 06/21/20 20:00 09/19/20 19:59 06/26/20 20:17 Dextrose (Dextrose 50%) 25 ml Q30M PRN IV Hypoglycemia 06/14/20 03:45 09/12/20 03:44 Dextrose (Dextrose 50%) 50 ml Q30M PRN IV Hypoglycemia 06/14/20 03:45 09/12/20 03:44 Epoetin Bonilla (Epoetin Bonilla-EPBX(NON ESRD)) 10,000 unit TUE-TUE-TUE SUBQ 06/18/20 21:00 09/16/20 20:59 06/25/20 21:16 Haloperidol Lactate (Haldol) 5 mg Q6H PRN IM Agitation 06/21/20 23:15 08/05/20 23:14 06/25/20 18:17 Lansoprazole (Prevacid) 30 mg BID ORAL 06/27/20 18:00 07/27/20 17:59 Levothyroxine Sodium (Synthroid) 50 mcg DAILY@0630 ORAL 06/25/20 06:30 07/25/20 06:29 06/27/20 06:17 Vancomycin HCl (Vanco pharmacy to dose) 1 ea DAILY PRN MISC Per rx protocol 06/27/20 11:30 07/27/20 11:29 UNV Assessment/Plan Problems: (1) Acute respiratory failure Assessment/Plan IMPRESSION: 1. Chronic respiratory failure. 2. Hypoxemia. 3. Respiratory acidosis. 4. Anemia. 5. Leukocytosis. 6. DVT 7. S/p code blue 06/19/20 DISCUSSION: The patient's x-ray is markedly abnormal with bilateral infiltrates. I suspect he has pulmonary fibrosis. Latest CXR is unchanged; will repeat COVID 19 pcr and antigen both negative No anticoagulation for DVT due to anemia S/p IVC filter placement Continue assist-control mechanical ventilation; currently FiO2 50%; SaO2 100%, broad-spectrum antibiotics. Transfusion as needed. Will decrease PEEP to 5; S/p HD WIll decrease FiO2 as tolerated I will follow carefully. Hugo Carl Omar Syed MD Jun 27, 2020 11:33
--- NOTE | 2020-06-27 11:35 | NUR ---
NURSE NOTES: Patient remains in stable condition 15 miins after start of blood transfusion. VS continues rto be WNL. Will continue to monitor.
[2020-06-27 12:00] VITALS: BP 111/63
--- NOTE | 2020-06-27 12:30 | Cardiac Electrophysiology PN ---
Assessment/Plan Assessment/Plan 1. Vent-dependent respirator failure. S/P tracheostomy. On 40% Fio2 Chest x-ray extensive bilateral pneumonia or ARDS. Off isolation EF 50%. Ruled out for IN. BNP 19715. On iv Abx 2. Tachycardia, likely due to respiratory failure. 3. Right femoral vein DVT. S/P IVC filter 06/18 4. Dysphagia, status post PEG placement. 5. Renal failure. S/P Right IJ Iron and HD by Dr. Honeycutt. 6. Severe anemia, S/P PRBC. Getting 2 more units due to hematuria 7. High LFTs, s/p CT abdomen and pelvis and HIDA FU Dr Stringer 8. Transient bradycardia, resolved DW RN Subjective Subjective On the Vent off isolation. On 40% Fio2 and PEEP 5. S/P IVC filter and PRBC S/P Right IJ Iron and first HD 06/21/20 Had PEDIATRIC ONCOLOGIST as HR dropped to 30 at 4 am 06/25/20 No further Getting PRBC as Hb dropped to 5.6 likley due to hematuria as was pulling on the cabrera Objective Last 24 Hour Vital Signs Date Time Temp Pulse Resp B/P (MAP) Pulse Ox O2 Delivery O2 Flow Rate FiO2 06/27/20 11:11 55 20 50 06/27/20 09:02 55 21 50 06/27/20 08:00 96.5 55 20 139/68 (91) 100 06/27/20 08:00 60 06/27/20 08:00 Mechanical Ventilator 06/27/20 08:00 40 06/27/20 07:07 60 26 50 06/27/20 05:22 66 29 50 06/27/20 04:00 93.0 93 20 117/60 (79) 100 06/27/20 04:00 Mechanical Ventilator 06/27/20 04:00 40 06/27/20 04:00 62 06/27/20 03:09 63 27 50 06/27/20 01:27 64 28 50 06/27/20 00:00 Mechanical Ventilator 06/27/20 00:00 65 06/27/20 00:00 93.0 93 19 150/92 (111) 100 06/26/20 23:30 65 26 50 06/26/20 21:23 66 31 50 06/26/20 20:00 67 06/26/20 20:00 40 06/26/20 20:00 Mechanical Ventilator 06/26/20 20:00 93.0 69 19 118/72 (87) 100 06/26/20 19:30 68 25 50 06/26/20 17:20 72 23 40 06/26/20 16:00 61 06/26/20 16:00 98.1 64 19 117/65 (82) 100 06/26/20 16:00 Mechanical Ventilator 06/26/20 16:00 40 06/26/20 15:09 62 20 40 06/26/20 13:10 59 23 40 Intake and Output 06/26/20 06/27/20 19:00 07:00 Intake Total 580 ml 550 ml Output Total 1350 ml 250 ml Balance -770 ml 300 ml Free Water 100 ml 150 ml Tube Feeding 480 ml 400 ml Output Urine Total 350 ml 250 ml Hemodialysis UF 1000 ml # Bowel Movements 1 1 Laboratory Tests Test 06/26/20 12:55 06/26/20 18:28 06/26/20 23:28 06/27/20 03:25 POC Whole Blood Glucose 152 MG/DL (74-106) H 120 MG/DL (74-106) H 154 MG/DL (74-106) H White Blood Count 14.2 K/UL (4.8-10.8) H Red Blood Count 1.84 M/UL (4.70-6.10) L Hemoglobin 5.6 G/DL (14.2-18.0) Hematocrit 17.4 % (42.0-52.0) #L Mean Corpuscular Volume 94 FL (80-99) Mean Corpuscular Hemoglobin 30.3 PG (27.0-31.0) Mean Corpuscular Hemoglobin Concent 32.2 G/DL (32.0-36.0) Red Cell Distribution Width 16.3 % (11.6-14.8) H Platelet Count 104 K/UL (150-450) L Mean Platelet Volume 11.5 FL (6.5-10.1) H Neutrophils (%) (Auto) % (45.0-75.0) Lymphocytes (%) (Auto) % (20.0-45.0) Monocytes (%) (Auto) % (1.0-10.0) Eosinophils (%) (Auto) % (0.0-3.0) Basophils (%) (Auto) % (0.0-2.0) Differential Total Cells Counted 100 Neutrophils % (Manual) 90 % (45-75) H Lymphocytes % (Manual) 5 % (20-45) L Monocytes % (Manual) 2 % (1-10) Eosinophils % (Manual) 3 % (0-3) Basophils % (Manual) 0 % (0-2) Band Neutrophils 0 % (0-8) Platelet Estimate Decreased L Platelet Morphology Normal Hypochromasia 1+ Anisocytosis 1+ Sodium Level 135 MMOL/L (136-145) L Potassium Level 4.0 MMOL/L (3.5-5.1) Chloride Level 102 MMOL/L (98-107) Carbon Dioxide Level 32 MMOL/L (21-32) Anion Gap 1 mmol/L (5-15) L Blood Urea Nitrogen 49 mg/dL (7-18) H Creatinine 3.2 MG/DL (0.55-1.30) H Estimat Glomerular Filtration Rate 24.7 mL/min (>60) Glucose Level 173 MG/DL (74-106) H Calcium Level 8.3 MG/DL (8.5-10.1) L Total Bilirubin 0.4 MG/DL (0.2-1.0) Aspartate Amino Transf (AST/SGOT) 206 U/L (15-37) H Alanine Aminotransferase (ALT/SGPT) 327 U/L (12-78) H Alkaline Phosphatase 596 U/L (46-116) H Total Protein 6.3 G/DL (6.4-8.2) L Albumin 1.6 G/DL (3.4-5.0) L Globulin 4.7 g/dL Albumin/Globulin Ratio 0.3 (1.0-2.7) L Test 06/27/20 06:01 POC Whole Blood Glucose 159 MG/DL (74-106) H Objective HEAD AND NECK: Status post tracheostomy. Right IJ Iron in place LUNGS: Coarse rhonchi and basilar rales. CARDIOVASCULAR: Shows irregular S1 and S2 with no gallop. ABDOMEN: Soft. Status post G-tube. EXTREMITIES: No pitting edema. Lance Mcguire MD Jun 27, 2020 12:30
[2020-06-27] MEDS ORDERED: Vancomycin 1 GM in NS 275 ML IVPB SCH ×2 (13:00→21:00)
--- NOTE | 2020-06-27 13:19 | NUR ---
CASE MANAGEMENT:REVIEW 06/27/20 SI: AC/CHR RESP FAILURE. AC/CHR RENAL FAILURE TRACH/VENT DEPENDENT. HAS NON TUNNELED DIALYSIS CATHETER 96.5 55 20 139/68 100% ON 40% FIO2 VIA VENT WBC+14.2 H/H-5.6/17.4 PLT-104 BUN+49 CR+3.2 IS: TRANSFUSE 2 UNITS PRBC'S IV VANCOMYCIN X1 SYNTHROID GT QD EPOETIN SQ MWF VIT C GT QD : STEP DOWN UNIT DCP: FROM [facility] PLAN: LAST HD 06/26/20
--- NOTE | 2020-06-27 13:27 | Nephrology Progress Note ---
Assessment/Plan Problem List: (1) KERRI (acute kidney injury) (2) Acute respiratory failure (3) Chronic respiratory failure (4) Anemia (5) Hyperkalemia Assessment Acute on chronic renal failure Anemia Respiratory failure acute on chronic Respiratory acidosis and hypoxia Hyperkalemia Plan June 27: Labs reviewed. Dialyzed yesterday. Hemoglobin low. Due for transfusion. Continue to monitor renal parameters and hemoglobin and he matocrit. June 26: Labs reviewed. Due for dialysis today. Continue per consultants. Continue to monitor liver enzymes. June 25: Labs reviewed. Will dialyze tomorrow. Continue per consultants. Check liver function enzymes. June 24: Dialyzed yesterday. Labs reviewed. Medication list reviewed. Liver enzymes remains elevated. Continue to monitor electrolytes renal parameters and LFTs. Hemodialysis in a.m. if needed. June 23: Patient will be dialyzed today again. Labs reviewed. Serum creatinine higher. Elevated liver enzymes persist. Patient full code. Continue per consultants. June 22: Patient dialyzed yesterday. Labs reviewed. Liver function tests and enzymes are elevated. Continue to monitor renal parameters and LFTs. Co ntinue per consultants. Patient full code. June 21: Patient due for dialysis today. Labs and medication list reviewed. Discussed with RN. Continue to monitor renal parameters. June 20: Patient had an episode of bradycardia last night. Serum creatinine rising. Patient continues to have respiratory acidosis. Discussed with MAX Bond. Will order non tunneled dialysis catheter placement for initiation of dialysis treatment due to acute renal failure. Patient remains full code. I favor comfort care if bioethics consultation is sought and physicians on the team agreeable. June 19: No CHEM panel today. Low hemoglobin as of yesterday's lab results. Anemia management per Dr. Cueva. Continue to monitor renal parameters. June 18: Labs are reviewed. Hemoglobin lower. Creatinine higher. ABG not done yet. Patient full code. Continue per consultants. June 17: Labs reviewed. Hemoglobin low. Creatinine up to 3. Phosphorus levels elevated. Will start Amphojel via GT tube as a phosphorus binder. Monitor renal parameters. Check ABG. Continue per consultants. June 16: Labs reviewed. Serum creatinine mariana to 2.6. Abnormal electrolytes now normalized. Continue to monitor renal parameters and avoid nephrotoxic's. Continue to adjust pulmonary status as possible. June 15: ABG pH of 7.1. 2D echo suggestive of ejection fraction of 50%. Labs reviewed. Serum creatinine mariana. Will hold IV Lasix. Will give Kayexalate for high potassium and 1 amp of sodium bicarb. Albumin IV bolus given. Continue per consultants. Continue to monitor renal parameters. Kidney ultrasound ordered. June 14: As follow Pulmonary evaluation Sparrow catheter Hold IV fluid IV fluid, until 2D echo results available Kayexalate for high potassium IV Protonix 2D echocardiogram Anemia work-up More labs ordered Subjective ROS Limited/Unobtainable: Yes Objective Objective Last 24 Hour Vital Signs Date Time Temp Pulse Resp B/P (MAP) Pulse Ox O2 Delivery O2 Flow Rate FiO2 06/27/20 11:11 55 20 50 06/27/20 09:02 55 21 50 06/27/20 08:00 96.5 55 20 139/68 (91) 100 06/27/20 08:00 60 06/27/20 08:00 Mechanical Ventilator 06/27/20 08:00 40 06/27/20 07:07 60 26 50 06/27/20 05:22 66 29 50 06/27/20 04:00 93.0 93 20 117/60 (79) 100 06/27/20 04:00 Mechanical Ventilator 06/27/20 04:00 40 06/27/20 04:00 62 06/27/20 03:09 63 27 50 06/27/20 01:27 64 28 50 06/27/20 00:00 Mechanical Ventilator 06/27/20 00:00 65 06/27/20 00:00 93.0 93 19 150/92 (111) 100 06/26/20 23:30 65 26 50 06/26/20 21:23 66 31 50 06/26/20 20:00 67 06/26/20 20:00 40 06/26/20 20:00 Mechanical Ventilator 06/26/20 20:00 93.0 69 19 118/72 (87) 100 06/26/20 19:30 68 25 50 06/26/20 17:20 72 23 40 06/26/20 16:00 61 06/26/20 16:00 98.1 64 19 117/65 (82) 100 06/26/20 16:00 Mechanical Ventilator 06/26/20 16:00 40 06/26/20 15:09 62 20 40 Intake and Output 06/26/20 06/27/20 19:00 07:00 Intake Total 580 ml 550 ml Output Total 1350 ml 250 ml Balance -770 ml 300 ml Free Water 100 ml 150 ml Tube Feeding 480 ml 400 ml Output Urine Total 350 ml 250 ml Hemodialysis UF 1000 ml # Bowel Movements 1 1 Current Medications Medications (Trade) Dose Ordered Sig/Maryjane Route PRN Reason Start Time Stop Time Status Last Admin Dose Admin Acetaminophen (Tylenol) 650 mg Q4H PRN GT Mild Pain (Pain Scale 1-3) 06/18/20 23:00 07/18/20 22:59 Acetaminophen (Tylenol) 650 mg Q4HR PRN GT FEVER 06/14/20 09:45 07/14/20 09:44 06/19/20 20:45 Aluminum Hydroxide (Amphojel) 1,920 mg Q6H GT 06/17/20 10:00 07/17/20 09:59 06/27/20 09:10 Ascorbic Acid (Vitamin C) 500 mg DAILY ORAL 06/16/20 09:00 07/16/20 08:59 06/27/20 09:09 Chlorhexidine Gluconate (Inés-Hex 2%) 1 applic DAILY@1999 TOPIC 06/21/20 20:00 09/19/20 19:59 06/26/20 20:17 Dextrose (Dextrose 50%) 25 ml Q30M PRN IV Hypoglycemia 06/14/20 03:45 09/12/20 03:44 Dextrose (Dextrose 50%) 50 ml Q30M PRN IV Hypoglycemia 06/14/20 03:45 09/12/20 03:44 Epoetin Bonilla (Epoetin Bonilla-EPBX(NON ESRD)) 10,000 unit TUE-TUE-TUE SUBQ 06/18/20 21:00 09/16/20 20:59 06/25/20 21:16 Haloperidol Lactate (Haldol) 5 mg Q6H PRN IM Agitation 06/21/20 23:15 08/05/20 23:14 06/25/20 18:17 Lansoprazole (Prevacid) 30 mg BID ORAL 06/27/20 18:00 07/27/20 17:59 Levothyroxine Sodium (Synthroid) 50 mcg DAILY@0630 ORAL 06/25/20 06:30 07/25/20 06:29 06/27/20 06:17 Vancomycin HCl (Vanco pharmacy to dose) 1 ea DAILY PRN MISC Per rx protocol 06/27/20 11:30 07/18/20 23:59 Laboratory Tests 06/26/20 18:28: POC Whole Blood Glucose 120H 06/26/20 23:28: POC Whole Blood Glucose 154H 06/27/20 03:25: White Blood Count 14.2H, Red Blood Count 1.84L, Hemoglobin 5.6#*L, Hematocrit 17.4#L, Mean Corpuscular Volume 94, Mean Corpuscular Hemoglobin 30.3, Mean Corpuscular Hemoglobin Concent 32.2, Red Cell Distribution Width 16.3H, Platelet Count 104L, Mean Platelet Volume 11.5H, Neutrophils (%) (Auto) , Lymphocytes (%) (Auto) , Monocytes (%) (Auto) , Eosinophils (%) (Auto) , Basophils (%) (Auto) , Differential Total Cells Counted 100, Neutrophils % (Manual) 90H, Lymphocytes % (Manual) 5L, Monocytes % (Manual) 2, Eosinophils % (Manual) 3, Basophils % (Manual) 0, Band Neutrophils 0, Platelet Estimate DecreasedL, Platelet Morphology Normal, Hypochromasia 1+, Anisocytosis 1+, Sodium Level 135L, Potassium Level 4.0, Chloride Level 102, Carbon Dioxide Level 32, Anion Gap 1L, Blood Urea Nitrogen 49H, Creatinine 3.2H, Estimat Glomerular Filtration Rate 24.7, Glucose Level 173H, Calcium Level 8.3L, Total Bilirubin 0.4, Aspartate Amino Transf (AST/SGOT) 206H, Alanine Aminotransferase (ALT/SGPT) 327H, Alkaline Phosphatase 596H, Total Protein 6.3L, Albumin 1.6L, Globulin 4.7, Albumin/Globulin Ratio 0.3L 06/27/20 06:01: POC Whole Blood Glucose 159H Height (Feet): 5 Height (Inches): 8.00 Weight (Pounds): 143 General Appearance: no apparent distress EENT: other - Trach to vent Cardiovascular: normal rate Respiratory/Chest: decreased breath sounds Abdomen: distended Leonidas Honeycutt MD Jun 27, 2020 13:26
--- NOTE | 2020-06-27 13:45 | Diagnostic Imaging Report ---
Indication: Abdominal Pain Technique: 620 mCi of technetium 99 m-Choletec was injected intravenously. Planar imaging of the abdomen was then performed up to 60 minutes. Findings: There is prompt uptake within the liver with washout of radiotracer from the liver on subsequent imaging. There is excretion into the biliary ducts. Gallbladder activity is present in a timely fashion indicating patency of the cystic duct. Very scant bowel activity is demonstrated concerning for common bile duct obstruction or sphincter dysfunction. IMPRESSION: No evidence to suggest cholecystitis. Gallbladder activity is present in a timely fashion indicating patency of the cystic duct. Very little radiotracer noted in the small bowel. Correlate with LFTs as a degree of common bile duct obstruction or sphincter dysfunction not excluded. Consider further evaluation with MRCP.
--- NOTE | 2020-06-27 14:06 | General Progress Note ---
Subjective ROS Limited/Unobtainable: Yes Allergies: Coded Allergies: No Known Allergies (Unverified , 06/13/20) Objective Last 24 Hour Vital Signs Date Time Temp Pulse Resp B/P (MAP) Pulse Ox O2 Delivery O2 Flow Rate FiO2 06/27/20 12:00 Mechanical Ventilator 06/27/20 12:00 93.4 59 20 111/63 (79) 100 06/27/20 11:11 55 20 50 06/27/20 09:02 55 21 50 06/27/20 08:00 96.5 55 20 139/68 (91) 100 06/27/20 08:00 60 06/27/20 08:00 Mechanical Ventilator 06/27/20 08:00 40 06/27/20 07:07 60 26 50 06/27/20 05:22 66 29 50 06/27/20 04:00 93.0 93 20 117/60 (79) 100 06/27/20 04:00 Mechanical Ventilator 06/27/20 04:00 40 06/27/20 04:00 62 06/27/20 03:09 63 27 50 06/27/20 01:27 64 28 50 06/27/20 00:00 Mechanical Ventilator 06/27/20 00:00 65 06/27/20 00:00 93.0 93 19 150/92 (111) 100 06/26/20 23:30 65 26 50 06/26/20 21:23 66 31 50 06/26/20 20:00 67 06/26/20 20:00 40 06/26/20 20:00 Mechanical Ventilator 06/26/20 20:00 93.0 69 19 118/72 (87) 100 06/26/20 19:30 68 25 50 06/26/20 17:20 72 23 40 06/26/20 16:00 61 06/26/20 16:00 98.1 64 19 117/65 (82) 100 06/26/20 16:00 Mechanical Ventilator 06/26/20 16:00 40 06/26/20 15:09 62 20 40 Intake and Output 06/26/20 06/27/20 19:00 07:00 Intake Total 580 ml 550 ml Output Total 1350 ml 250 ml Balance -770 ml 300 ml Free Water 100 ml 150 ml Tube Feeding 480 ml 400 ml Output Urine Total 350 ml 250 ml Hemodialysis UF 1000 ml # Bowel Movements 1 1 Laboratory Tests 06/26/20 18:28: POC Whole Blood Glucose 120H 06/26/20 23:28: POC Whole Blood Glucose 154H 06/27/20 03:25: White Blood Count 14.2H, Red Blood Count 1.84L, Hemoglobin 5.6#*L, Hematocrit 17.4#L, Mean Corpuscular Volume 94, Mean Corpuscular Hemoglobin 30.3, Mean Corpuscular Hemoglobin Concent 32.2, Red Cell Distribution Width 16.3H, Platelet Count 104L, Mean Platelet Volume 11.5H, Neutrophils (%) (Auto) , Lymphocytes (%) (Auto) , Monocytes (%) (Auto) , Eosinophils (%) (Auto) , Basophils (%) (Auto) , Differential Total Cells Counted 100, Neutrophils % (Manual) 90H, Lymphocytes % (Manual) 5L, Monocytes % (Manual) 2, Eosinophils % (Manual) 3, Basophils % (Manual) 0, Band Neutrophils 0, Platelet Estimate DecreasedL, Platelet Morphology Normal, Hypochromasia 1+, Anisocytosis 1+, Sodium Level 135L, Potassium Level 4.0, Chloride Level 102, Carbon Dioxide Level 32, Anion Gap 1L, Blood Urea Nitrogen 49H, Creatinine 3.2H, Estimat Glomerular Filtration Rate 24.7, Glucose Level 173H, Calcium Level 8.3L, Total Bilirubin 0.4, Aspartate Ami no Transf (AST/SGOT) 206H, Alanine Aminotransferase (ALT/SGPT) 327H, Alkaline Phosphatase 596H, Total Protein 6.3L, Albumin 1.6L, Globulin 4.7, Albumin /Globulin Ratio 0.3L 06/27/20 06:01: POC Whole Blood Glucose 159H 06/27/20 13:38: POC Whole Blood Glucose 153H Height (Feet): 5 Height (Inches): 8.00 Weight (Pounds): 143 Assessment/Plan Problem List: (1) Anemia ICD Codes: D64.9 - Anemia, unspecified SNOMED: 689982347 (2) KERRI (acute kidney injury) ICD Codes: N17.9 - Acute kidney failure, unspecified SNOMED: 3757083, 51319597 (3) Acute respiratory failure ICD Codes: J96.00 - Acute respiratory failure, unspecified whether with hypoxia or hypercapnia SNOMED: 23719473 Qualifiers: Qualified Codes: J96.02 - Acute respiratory failure with hypercapnia (4) Hyperkalemia ICD Codes: E87.5 - Hyperkalemia SNOMED: 29949003 (5) Abnormal laboratory test result ICD Codes: R89.9 - Unspecified abnormal finding in specimens from other organs, systems and tissues SNOMED: 355229796 (6) Anemia ICD Codes: D64.9 - Anemia, unspecified SNOMED: 255280355 Status: progressing Assessment/Plan: resp insuff trach malnutrition \no change afbrile reviewed chart and lab sepsis abx per id check lytes pulm edema arf Neida Apple MD Jun 27, 2020 14:06
[2020-06-27 16:00] VITALS: BP 116/65
--- NOTE | 2020-06-27 16:13 | NUR ---
[employer]ENDENT NOTE left a vm to Blanca Deal [phone] for call back to confirm POA/decision making status.
--- NOTE | 2020-06-27 16:29 | Cardiology Report ---
APPROVED REPORT EKG Measurement Heart [id number] <Conclusion> Normal sinus rhythm Nonspecific ST and T wave abnormality Abnormal ECG
--- NOTE | 2020-06-27 16:31 | NUR ---
INSURANCE [employer]INICALS AND REVIEW FAXED TO [facility] [place] [phone]
--- NOTE | 2020-06-27 16:37 | Surgery Progress Note ---
Surgery Progress Note Subjective Additional Comments MARIAN buck labs noted exam stable no n/v tf Objective Last 24 Hour Vital Signs Date Time Temp Pulse Resp B/P (MAP) Pulse Ox O2 Delivery O2 Flow Rate FiO2 06/27/20 15:15 62 28 50 06/27/20 13:05 63 30 50 06/27/20 12:00 Mechanical Ventilator 06/27/20 12:00 40 06/27/20 12:00 40 06/27/20 12:00 93.4 59 20 111/63 (79) 100 06/27/20 11:11 55 20 50 06/27/20 09:02 55 21 50 06/27/20 08:00 96.5 55 20 139/68 (91) 100 06/27/20 08:00 60 06/27/20 08:00 Mechanical Ventilator 06/27/20 08:00 40 06/27/20 07:07 60 26 50 06/27/20 05:22 66 29 50 06/27/20 04:00 93.0 93 20 117/60 (79) 100 06/27/20 04:00 Mechanical Ventilator 06/27/20 04:00 40 06/27/20 04:00 62 06/27/20 03:09 63 27 50 06/27/20 01:27 64 28 50 06/27/20 00:00 Mechanical Ventilator 06/27/20 00:00 65 06/27/20 00:00 93.0 93 19 150/92 (111) 100 06/26/20 23:30 65 26 50 06/26/20 21:23 66 31 50 06/26/20 20:00 67 06/26/20 20:00 40 06/26/20 20:00 Mechanical Ventilator 06/26/20 20:00 93.0 69 19 118/72 (87) 100 06/26/20 19:30 68 25 50 06/26/20 17:20 72 23 40 I&O Intake and Output 06/26/20 06/27/20 19:00 07:00 Intake Total 580 ml 550 ml Output Total 1350 ml 250 ml Balance -770 ml 300 ml Free Water 100 ml 150 ml Tube Feeding 480 ml 400 ml Output Urine Total 350 ml 250 ml Hemodialysis UF 1000 ml # Bowel Movements 1 1 Dressing: saturated Cardiovascular: RSR Respiratory: decreased breath sounds Abdomen: soft, non-tender, present bowel sounds Extremities: no tenderness, no cyanosis Laboratory Tests Test 06/26/20 18:28 06/26/20 23:28 06/27/20 03:25 06/27/20 06:01 POC Whole Blood Glucose 120 MG/DL (74-106) H 154 MG/DL (74-106) H 159 MG/DL (74-106) H White Blood Count 14.2 K/UL (4.8-10.8) H Red Blood Count 1.84 M/UL (4.70-6.10) L Hemoglobin 5.6 G/DL (14.2-18.0) Hematocrit 17.4 % (42.0-52.0) #L Mean Corpuscular Volume 94 FL (80-99) Mean Corpuscular Hemoglobin 30.3 PG (27.0-31.0) Mean Corpuscular Hemoglobin Concent 32.2 G/DL (32.0-36.0) Red Cell Distribution Width 16.3 % (11.6-14.8) H Platelet Count 104 K/UL (150-450) L Mean Platelet Volume 11.5 FL (6.5-10.1) H Neutrophils (%) (Auto) % (45.0-75.0) Lymphocytes (%) (Auto) % (20.0-45.0) Monocytes (%) (Auto) % (1.0-10.0) Eosinophils (%) (Auto) % (0.0-3.0) Basophils (%) (Auto) % (0.0-2.0) Differential Total Cells Counted 100 Neutrophils % (Manual) 90 % (45-75) H Lymphocytes % (Manual) 5 % (20-45) L Monocytes % (Manual) 2 % (1-10) Eosinophils % (Manual) 3 % (0-3) Basophils % (Manual) 0 % (0-2) Band Neutrophils 0 % (0-8) Platelet Estimate Decreased L Platelet Morphology Normal Hypochromasia 1+ Anisocytosis 1+ Sodium Level 135 MMOL/L (136-145) L Potassium Level 4.0 MMOL/L (3.5-5.1) Chloride Level 102 MMOL/L (98-107) Carbon Dioxide Level 32 MMOL/L (21-32) Anion Gap 1 mmol/L (5-15) L Blood Urea Nitrogen 49 mg/dL (7-18) H Creatinine 3.2 MG/DL (0.55-1.30) H Estimat Glomerular Filtration Rate 24.7 mL/min (>60) Glucose Level 173 MG/DL (74-106) H Calcium Level 8.3 MG/DL (8.5-10.1) L Total Bilirubin 0.4 MG/DL (0.2-1.0) Aspartate Amino Transf (AST/SGOT) 206 U/L (15-37) H Alanine Aminotransferase (ALT/SGPT) 327 U/L (12-78) H Alkaline Phosphatase 596 U/L (46-116) H Total Protein 6.3 G/DL (6.4-8.2) L Albumin 1.6 G/DL (3.4-5.0) L Globulin 4.7 g/dL Albumin/Globulin Ratio 0.3 (1.0-2.7) L Test 06/27/20 13:38 POC Whole Blood Glucose 153 MG/DL (74-106) H Plan Problems: (1) Leukocytosis Assessment & Plan: 54-year-old male multiple comorbidities admitted for abnormal chest x-ray potentially pneumonia leukocytosis abnormal labs. Patient identified to have a prior left BKA surgical sutures still in place as well as a surgical sacral wound with sutures in place. Considerations of dehiscence being identified and potential etiology of infection. After evaluation unlikely source of infection though the sacral wound was looked to be dehiscing at the inferior aspect. No acute surgical mention at this time We will discussed care plan with PCP Recommend follow-up with initial surgeon considerations of removal of surgical sutures Care plan initiated worsening lft's US ordered ? shayla Extensive airspace consolidations at the lung bases consistent with severe multifocal infiltrate. Associated, large bilateral pleural effusions. Evaluation of the abdominal viscera is markedly suboptimal due to poor CT technique and lack of intravenous contrast. No definite hepatic lesion. No definite cholelithiasis. Mild colon wall thickening. The spleen, pancreas, and adrenal glands are not visualized well enough reliable assessment. No definite hydronephrosis. The kidneys are hyperdense, correlate for medical renal disease. No nephrolithiasis. Sparrow catheter within a decompressed urinary bladder. Moderate diverticulosis, without acute diverticulitis. No small bowel obstruction. PEG tube presumably within the stomach. Atherosclerotic calcifications of the aorta. Low-attenuation of the intravascular blood pool, correlate for anemia. IVC filter, incidentally noted. Air within the subcutaneous fat overlying the sacrum with skin thickening, correlate with physical exam for sacral decubitus ulcer. Degenerative changes of the spine. Bilateral pars defects at L5 without anterolisthesis of L5 on S1. IMPRESSION: Extensive airspace consolidations at the lung bases consistent with severe multifocal infiltrate. Associated, large bilateral pleural effusions. Evaluation of the abdominal viscera is markedly suboptimal due to poor CT technique and lack of intravenous contrast. Moderate diverticulosis, without acute diverticulitis. No small bowel obstruction. PEG tube presumably within the stomach. Note, if there is suspicion for colitis consider repeat scan with improved CT technique/intravenous contrast. Mild gallbladder wall thickening without definite evidence of cholelithiasis. Air within the subcutaneous fat overlying the sacrum with skin thickening, correlate with physical exam for sacral decubitus ulcer. Bilateral pars defects at L5. The kidneys are hyperdense, correlate for medical renal disease.. There is prompt uptake within the liver with washout of radiotracer from the liver on subsequent imaging. There is excretion into the biliary ducts. Gallbladder activity is present in a timely fashion indicating patency of the cystic duct. Very scant bowel activity is demonstrated concerning for common bile duct obstruction or sphincter dysfunction. IMPRESSION: No evidence to suggest cholecystitis. Gallbladder activity is present in a timely fashion indicating patency of the cystic duct. Very little radiotracer noted in the small bowel. Correlate with LFTs as a degree of common bile duct obstruction or sphincter dysfunction not excluded. Consider further evaluation with MRCP. (2) Surgical wound dehiscence Assessment & Plan: Patient identified to have a left BKA surgical sutures in place flap looks like it is taken well no signs of infection at this time no signs of seroma hematoma or drainage. Unknown exact length or duration of potential prior left BKA and until then recommend leaving sutures in place as it may be too early though it does look well-healed. If able to obtain prior records we will be happy to remove sutures otherwise will need follow-up with primary surgeon furthermore patient identified to have a surgical wound in the sacral area seems he probably potentially had a stage IV sacral decubitus ulcer that had debridement and primary closure. Fortunately. Sutures are still in place and it looks like the inferior aspect may be slowly dehiscing. There is no significant drainage no foul odor no signs of active infection unknown if bone was palpable prior. Can consider removing surgical sutures but again would recommend obtaining prior records of possible prior to doing so. Also recommend following up with primary surgeon as this may need ongoing continued care. Will follow with recommendations and as information is available. Continue current care plan. Wash wounds daily with normal saline. Apply skin protectant Optifoam dressing. Turn every 2 hours. Offload pressure with pillows and air mattress. Nutritional optimization. (3) History of left below knee amputation (4) Malnutrition Assessment & Plan: DAILY ESTIMATED NEEDS: Needs based on Wound, critical care, underweight/ 55.5kg 25-33 (25-35 w/ HD) kcals/kg 4904-5739 (6959-1621) total kcals 1.25-2 g protein/kg 69-111 g total protein 25-30 mL/kg 8341-1249 total fluid mLs NUTRITION DIAGNOSIS: * Swallowing difficulty R/T respiratory status as evidenced by pt is trach/vent dep, PEG dep. CURRENT TF: Nepro @ 40ml/hr x24 hrs ENTERAL NUTRITION RECOMMENDATIONS: Nepro @ 40ml/hr x 24 hrs to provide 960ml, 1728kcal, 78g prot, 698ml free water * Maintain current TF * HOB over 30 degrees/ water flush per MD ADDITIONAL RECOMMENDATIONS: * Per SNF: HT=69" QW=[id number] -> rec daily calibrated bedscale wt * Monitor lytes: elev K-> now wnl, phos now low * Wound healing: RANDY BID + Nephrovite 1 tab qdaily * Monitor for bm, last bm 06/19, now 06/24 * W/ HD rec to add Prosource 1 pack qdaily for added 11g pro/day. (5) Anemia (6) KERRI (acute kidney injury) (7) Acute respiratory failure (8) Hyperkalemia (9) Anemia (10) Abnormal laboratory test result (11) Chronic respiratory failure Azar Mares Jun 27, 2020 16:37
--- NOTE | 2020-06-27 17:07 | Cardiology Report ---
APPROVED REPORT EKG Measurement Heart [id number] <Conclusion> Sinus rhythm
--- NOTE | 2020-06-27 17:40 | NUR ---
NURSE NOTES: Noted IV site swelling, suspected infiltrate of IV. IV line D/C. New access started on R AC. Patent and flushing well. Started 2nd bag of PRBC and patient VS WNL at the beginning and 15mins post. No acute distress noted. Denies pain and discomfort at this time.
--- NOTE | 2020-06-27 18:17 | General Progress Note ---
Subjective Allergies: Coded Allergies: No Known Allergies (Unverified , 06/13/20) Subjective above note awake today follows commands CT and HIDA noted - negative had gross hematuria with drop in H&H getting transfused LFT continue to improve Objective Last 24 Hour Vital Signs Date Time Temp Pulse Resp B/P (MAP) Pulse Ox O2 Delivery O2 Flow Rate FiO2 06/27/20 15:15 62 28 50 06/27/20 13:05 63 30 50 06/27/20 12:00 Mechanical Ventilator 06/27/20 12:00 40 06/27/20 12:00 40 06/27/20 12:00 93.4 59 20 111/63 (79) 100 06/27/20 11:11 55 20 50 06/27/20 09:02 55 21 50 06/27/20 08:00 96.5 55 20 139/68 (91) 100 06/27/20 08:00 60 06/27/20 08:00 Mechanical Ventilator 06/27/20 08:00 40 06/27/20 07:07 60 26 50 06/27/20 05:22 66 29 50 06/27/20 04:00 93.0 93 20 117/60 (79) 100 06/27/20 04:00 Mechanical Ventilator 06/27/20 04:00 40 06/27/20 04:00 62 06/27/20 03:09 63 27 50 06/27/20 01:27 64 28 50 06/27/20 00:00 Mechanical Ventilator 06/27/20 00:00 65 06/27/20 00:00 93.0 93 19 150/92 (111) 100 06/26/20 23:30 65 26 50 06/26/20 21:23 66 31 50 06/26/20 20:00 67 06/26/20 20:00 40 06/26/20 20:00 Mechanical Ventilator 06/26/20 20:00 93.0 69 19 118/72 (87) 100 06/26/20 19:30 68 25 50 Intake and Output 06/26/20 06/27/20 19:00 07:00 Intake Total 580 ml 550 ml Output Total 1350 ml 250 ml Balance -770 ml 300 ml Free Water 100 ml 150 ml Tube Feeding 480 ml 400 ml Output Urine Total 350 ml 250 ml Hemodialysis UF 1000 ml # Bowel Movements 1 1 Laboratory Tests 11/19/20 18:28: POC Whole Blood Glucose 120H 06/26/20 23:28: POC Whole Blood Glucose 154H 06/27/20 03:25: White Blood Count 14.2H, Red Blood Count 1.84L, Hemoglobin 5.6#*L, Hematocrit 17.4#L, Mean Corpuscular Volume 94, Mean Corpuscular Hemoglobin 30.3, Mean Corpuscular Hemoglobin Concent 32.2, Red Cell Distribution Width 16.3H, Platelet Count 104L, Mean Platelet Volume 11.5H, Neutrophils (%) (Auto) , Lymphocytes (%) (Auto) , Monocytes (%) (Auto) , Eosinophils (%) (Auto) , Basophils (%) (Auto) , Differential Total Cells Counted 100, Neutrophils % (Manual) 90H, Lymphocytes % (Manual) 5L, Monocytes % (Manual) 2, Eosinophils % (Manual) 3, Basophils % (Manual) 0, Band Neutrophils 0, Platelet Estimate DecreasedL, Platelet Morphology Normal, Hypochromasia 1+, Anisocytosis 1+, Sodium Level 135L, Potassium Level 4.0, Chloride Level 102, Carbon Dioxide Level 32, Anion Gap 1L, Blood Urea Nitrogen 49H, Creatinine 3.2H, Estimat Glomerular Filtration Rate 24.7, Glucose Level 173H, Calcium Level 8.3L, Total Bilirubin 0.4, Aspartate Amino Transf (AST/SGOT) 206H, Alanine Aminotransferase (ALT/SGPT) 327H, Alkaline Phosphatase 596H, Total Protein 6.3L, Albumin 1.6L, Globulin 4.7, Albumin/Globulin Ratio 0.3L 06/27/20 06:01: POC Whole Blood Glucose 159H 06/27/20 13:38: POC Whole Blood Glucose 153H Height (Feet): 5 Height (Inches): 8.00 Weight (Pounds): 143 Objective Debilitated elderly man NCAT supple Coarse BS RRR abd sofft, flat, (+) GT s/p LLE BKA awake, responsive Assessment/Plan Status: progressing Assessment/Plan: Assessment Abnormal LFT, rising, ? etiology - improving - ? infectious hepatitis - ? vascular - ? meds - ? other Recommendations - f/u infectious hepatitis panel - continue to hold seroquel - follow LFT - TF - Transfuse Fco Banerjee MD Jun 27, 2020 18:17
--- NOTE | 2020-06-27 19:45 | NUR ---
NURSE HAND-OFF REPORT: Important Events on Shift:Blood transfusion today Patient Status: Stable Diet: GT Pending Orders: Pending Results/Labs: Pending MD notification: Latest Vital Signs: Temperature 93.5 , Pulse 61 , B/P 116 /65 , Respiratory Rate 26 , O2 SAT 100 , Mechanical Ventilator, O2 Flow Rate 15.0 . Vital Sign Comment: Noted low temp. EKG Rhythm: Sinus Rhythm Rhythm change?: N MD Notified?: N -Dr. Ruel BENDER Response: No New Orders Received Latest Santiago Fall Score: 60 Fall Risk: High Risk Safety Measures: Call light Within Reach, Bed Alarm Zone 2, Side Rails Side Rails x3, Bed position Low and Locked. Fall Precautions: Yellow Socks Yellow Gown Door Sign Patient Fall Education Report given to MAX Godinez.
[2020-06-27 20:00] VITALS: BP 119/70
[2020-06-27] MEDS: Dyna-Hex 2% Top Sol 2oz TOPIC SCH (20:00)
--- NOTE | 2020-06-27 20:00 | NUR ---
NURSE NOTES: Patient received from MAX Ardon under the care of Dr. Apple for the admitting dx. of anemia, respiratory failure, KERRI, and cellulitis. Patient NKA and full code status. 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 Fall, isolation, and aspiration precaution observed and maintained at all times. Patient is alert and oriented x2, responsive with gestures and mouthing words. Decubitus noted, Left BKA noted with stitches observed, peripheral IV noted, R transjugular Iron cath noted for HD Patient tolerating vent settings well. No apparent distress or discomfort noted. Denies pain at this time. Will continue to monitor.
[2020-06-27] MEDS: Epoetin Alfa-EPBX (NON ESRD)10,000 unit/ml vial SUBQ SCH (21:04)
--- NOTE | 2020-06-27 22:00 | NUR ---
NURSE NOTES: Patient assessment performed. Patient is noted to have low temperatures, patient was placed on a florina hugger and warmed up. PM meds given. Patient remains AAOX2-3. Patient cooperative at this time. Removed restraints. Oral care performed and repositioned.
[2020-06-28] VITALS: BP 106/63
--- NOTE | 2020-06-28 | NUR ---
NURSE NOTES: Patient assessment performed. Patient repositioned, oral care performed, ROM performed. No apparent distress at this time. VSS. Patient is calm and collected. No new changes.
[2020-06-28 04:00] VITALS: BP 107/58
--- NOTE | 2020-06-28 04:00 | NUR ---
NURSE NOTES: Patient assessment performed. Patient given sponge bath, oral care performed, and repositioned. ROM offered. Labs drawn. Patient noted to have liquid diarrhea and rectal tube was inserted. Patient tolerated it well. VSS. Patient temperature is 97.9 F
[2020-06-28] MEDS: Aluminum Hydroxide Gel Susp 15ml GT SCH ×4 (04:17→21:42)
[2020-06-28 04:58] LABS: HEMATOCRIT 19.6 % (42.0-52.0); MEAN CORPUSCULAR VOLUME 95 FL (80-99); PLATELET COUNT 99 K/UL (150-450); RED BLOOD COUNT 2.06 M/UL (4.70-6.10); RED CELL DISTRIBUTION WIDTH 15.1 % (11.6-14.8)
[2020-06-28 05:15] LABS: ALBUMIN 1.5 G/DL (3.4-5.0); ALBUMIN/GLOBULIN RATIO 0.3 (1.0-2.7); BILIRUBIN,TOTAL 0.4 MG/DL (0.2-1.0); CALCIUM 8.6 MG/DL (8.5-10.1); CREATININE 3.8 MG/DL (0.55-1.30); HEMOGLOBIN 6.3 G/DL (14.2-18.0); PHOSPHORUS 3.1 MG/DL (2.5-4.9); POTASSIUM 4.2 MMOL/L (3.5-5.1)
--- NOTE | 2020-06-28 06:31 | NUR ---
NURSE NOTES: Glucose noted to be 138 Called and left message to Dr. Tan regarding hemoglobin of 6.8, awaiting for call back.
--- NOTE | 2020-06-28 07:00 | NUR ---
RESPIRATORY NOTE: PT RECEIVED STABLE ON CMV WITH CURRENT SETTINGS: AC/VC 16,500, 40%, +5. ALARMS ARE ON AND AUDIBLE. VENT CIRCUIT IS SECURE AND OUT OF THE WAY. NO S/S OF RESPIRATORY DISTRESS NOTED AT THIS TIME. WILL CONTINUE TO MONITOR.
--- NOTE | 2020-06-28 07:10 | NUR ---
NURSE NOTES: Received report from MAX Godinez. PT is lying done in bed, awake, not in distress, on bilateral soft restraints to avoid pulling of tubes, restless. A/O x2-3. Tolerating trach to vent setting of AC16, MvL005%, TV 500, PEEP 5 and saturating @ 98%. G-tube is intact and patent and running Nepro 400cc/hr. L Int. Jugular Quintone cath is intact. is intact. Peripheral IV in R AC 20 G is intact and patent. Urinary cath is intact and patent and draining dark gerard urine. Bed is lock and in lowest position, bed alarm on, call light is within reach. Will continue to monitor pt. Will continue with the plan of care.
--- NOTE | 2020-06-28 07:36 | NUR ---
HAND-OFF: Report given to Yulisa SANTANA.
[2020-06-28 08:00] VITALS: BP 121/69
[2020-06-28] MEDS: Ascorbic Acid 500mg tab ORAL SCH (08:29)
--- NOTE | 2020-06-28 09:57 | NUR ---
CASE MANAGEMENT:REVIEW 06/28/20 SI: AC/CHR RESP FAILURE. AC/CHR RENAL FAILURE TRACH/VENT DEPENDENT. HAS NON TUNNELED DIALYSIS CATHETER 97.7 58 20 107/58 100% ON 40% FIO2 VIA VENT WBC+12.0 H/H-6.3/19.6 PLT-99 BUN+58 CR+3.8 IS: TRANSFUSE PRBC'S AGAIN TODAY SYNTHROID GT QD EPOETIN SQ MWF VIT C GT QD : STEP DOWN UNIT DCP: FROM [facility] PLAN: LAST HD 06/26/20
--- NOTE | 2020-06-28 10:00 | NUR ---
NURSE NOTES: Initial assessment done. Morning medications given. Vital signs remain stable. Not in distress. Tolerating vent setting with O2 sat 96%. Will continue to monitor pt.
--- NOTE | 2020-06-28 10:28 | Nephrology Progress Note ---
Assessment/Plan Problem List: (1) KERRI (acute kidney injury) (2) Acute respiratory failure (3) Chronic respiratory failure (4) Anemia (5) Hyperkalemia Assessment Acute on chronic renal failure Anemia Respiratory failure acute on chronic Respiratory acidosis and hypoxia Hyperkalemia Plan June 28: Labs reviewed. Last dialyzed June 26. Hemoglobin remains low. Defer transfusion and work-up to gyroscope repairer. Continue to follow-up renal parameters. June 27: Labs reviewed. Dialyzed yesterday. Hemoglobin low. Due for transfusion. Continue to monitor renal parameters and hemoglobin and hematocrit. June 26: Labs reviewed. Due for dialysis today. Continue per consultants. Continue to monitor liver enzymes. June 25: Labs reviewed. Will dialyze tomorrow. Continue per consultants. Check liver function enzymes. June 24: Dialyzed yesterday. Labs reviewed. Medication list reviewed. Liver enzymes remains elevated. Continue to monitor electrolytes renal parameters and LFTs. Hemodialysis in a.m. if needed. June 23: Patient will be dialyzed today again. Labs reviewed. Serum creatinine higher. Elevated liver enzymes persist. Patient full code. Continue per consultants. June 22: Patient dialyzed yesterday. Labs reviewed. Liver function tests and enzymes are elevated. Continue to monitor renal parameters and LFTs. Continue per consultants. Patient full code. June 21: Patient due for dialysis today. Labs and medication list reviewed. Discussed with RN. Continue to monitor renal parameters. June 20: Patient had an episode of bradycardia last night. Serum creatinine rising. Patient continues to have respiratory acidosis. Discussed with RN Austin amos. Will order non tunneled dialysis catheter placement for initiation of dialysis treatment due to acute renal failure. Patient remains full code. I favor comfort care if bioethics consultation is sought and physicians on the team agreeable. June 19: No CHEM panel today. Low hemoglobin as of yesterday's lab results. Anemia management per Dr. Cueva. Continue to monitor renal parameters. June 18: Labs are reviewed. Hemoglobin lower. Creatinine higher. ABG not done yet. Patient full code. Continue per consultants. June 17: Labs reviewed. Hemoglobin low. Creatinine up to 3. Phosphorus levels elevated. Will start Amphojel via GT tube as a phosphorus binder. Monitor renal parameters. Check ABG. Continue per consultants. June 16: Labs reviewed. Serum creatinine mariana to 2.6. Abnormal electrolytes now normalized. Continue to monitor renal parameters and avoid nephrotoxic's. Continue to adjust pulmonary status as possible. June 15: ABG pH of 7.1. 2D echo suggestive of ejection fraction of 50%. Labs reviewed. Serum creatinine mariaan. Will hold IV Lasix. Will give Kayexalate for high potassium and 1 amp of sodium bicarb. Albumin IV bolus given. Continue per consultants. Continue to monitor renal parameters. Kidney ultrasound ordered. June 14: As follow Pulmonary evaluation Sparrow catheter Hold IV fluid IV fluid, until 2D echo results available Kayexalate for high potassium IV Protonix 2D echocardiogram Anemia work-up More labs ordered Subjective ROS Limited/Unobtainable: Yes Objective Objective Last 24 Hour Vital Signs Date Time Temp Pulse Resp B/P (MAP) Pulse Ox O2 Delivery O2 Flow Rate FiO2 06/28/20 08:00 97.9 82 22 121/69 (86) 99 06/28/20 07:00 84 25 40 06/28/20 04:00 63 06/28/20 04:00 Mechanical Ventilator 06/28/20 04:00 40 06/28/20 04:00 97.7 58 20 107/58 (74) 100 06/28/20 02:57 78 25 35 06/28/20 00:00 Mechanical Ventilator 06/28/20 00:00 35 06/28/20 00:00 96.0 60 20 106/63 (77) 100 06/28/20 00:00 62 06/27/20 23:51 61 18 35 06/27/20 20:00 Mechanical Ventilator 06/27/20 20:00 35 06/27/20 20:00 95.5 58 20 119/70 (86) 100 06/27/20 20:00 59 06/27/20 19:37 61 26 40 06/27/20 17:25 60 24 50 06/27/20 16:00 61 06/27/20 16:00 40 06/27/20 16:00 93.5 61 20 116/65 (82) 100 06/27/20 16:00 Mechanical Ventilator 06/27/20 15:15 62 28 50 06/27/20 13:05 63 30 50 06/27/20 12:00 Mechanical Ventilator 06/27/20 12:00 55 06/27/20 12:00 40 06/27/20 12:00 40 06/27/20 12:00 93.4 59 20 111/63 (79) 100 06/27/20 11:11 55 20 50 Intake and Output 06/27/20 06/28/20 19:00 07:00 Intake Total 450 ml Balance 450 ml Free Water 50 ml Tube Feeding 400 ml # Bowel Movements 3 Current Medications Medications (Trade) Dose Ordered Sig/Maryjane Route PRN Reason Start Time Stop Time Status Last Admin Dose Admin Acetaminophen (Tylenol) 650 mg Q4H PRN GT Mild Pain (Pain Scale 1-3) 06/18/20 23:00 07/18/20 22:59 Acetaminophen (Tylenol) 650 mg Q4HR PRN GT FEVER 06/14/20 09:45 07/14/20 09:44 06/19/20 20:45 Aluminum Hydroxide (Amphojel) 1,920 mg Q6H GT 06/17/20 10:00 07/17/20 09:59 06/28/20 09:34 Ascorbic Acid (Vitamin C) 500 mg DAILY ORAL 06/16/20 09:00 07/16/20 08:59 06/28/20 08:29 Chlorhexidine Gluconate (Inés-Hex 2%) 1 applic DAILY@1999 TOPIC 06/21/20 20:00 09/19/20 19:59 06/27/20 20:00 Dextrose (Dextrose 50%) 25 ml Q30M PRN IV Hypoglycemia 06/14/20 03:45 09/12/20 03:44 Dextrose (Dextrose 50%) 50 ml Q30M PRN IV Hypoglycemia 06/14/20 03:45 09/12/20 03:44 Epoetin Bonilla (Epoetin Bonilla-EPBX(NON ESRD)) 10,000 unit TUE-TUE-TUE SUBQ 06/18/20 21:00 09/16/20 20:59 06/27/20 21:04 Haloperidol Lactate (Haldol) 5 mg Q6H PRN IM Agitation 06/21/20 23:15 08/05/20 23:14 06/25/20 18:17 Lansoprazole (Prevacid) 30 mg BID ORAL 06/27/20 18:00 07/27/20 17:59 06/28/20 08:29 Levothyroxine Sodium (Synthroid) 50 mcg DAILY@0630 ORAL 06/25/20 06:30 07/25/20 06:29 06/28/20 06:22 Vancomycin HCl ([facility] pharmacy to dose) 1 ea DAILY PRN MISC Per rx protocol 06/27/20 11:30 07/18/20 23:59 Laboratory Tests 06/27/20 13:38: POC Whole Blood Glucose 153H 06/28/20 00:01: POC Whole Blood Glucose [Pending] 06/28/20 02:50: White Blood Count 12.0H, Red Blood Count 2.06L, Hemoglobin 6.3*L, Hematocrit 19.6L, Mean Corpuscular Volume 95, Mean Corpuscular Hemoglobin 30.6, Mean Corpuscular Hemoglobin Concent 32.1, Red Cell Distribution Width 15.1H, Platelet Count 99L, Mean Platelet Volume 11.7H, Neutrophils (%) (Auto) , Lymphocytes (%) (Auto) , Monocytes (%) (Auto) , Eosinophils (%) (Auto) , Basophils (%) (Auto) , Differential Total Cells Counted 100, Neutrophils % (Manual) 83H, Lymphocytes % (Manual) 8L, Monocytes % (Manual) 3, Eosinophils % (Manual) 2, Basophils % (Manual) 0, Band Neutrophils 4, Nucleated Red Blood Cells 1, Platelet Estimate DecreasedL, Platelet Morphology Normal, Hypochromasia 2+, Anisocytosis 1+, Sodium Level 135L, Potassium Level 4.2, Chloride Level 102, Carbon Dioxide Level 32, Anion Gap 1L, Blood Urea Nitrogen 58H, Creatinine 3.8H, Estimat Glomerular Filtration Rate 20.2, Glucose Level 148H, Calcium Level 8.6, Phosphorus Level 3.1, Magnesium Level 2.6H, Total Bilirubin 0.4, Aspartate Amino Transf (AST/SGOT) 796H, Alanine Aminotransferase (ALT/SGPT) 510H, Alkaline Phosphatase 650H, Total Protein 6.4, Albumin 1.5L, Globulin 4.9, Albumin/Globulin Ratio 0.3L 06/28/20 06:26: POC Whole Blood Glucose [Pending] Height (Feet): 5 Height (Inches): 8.00 Weight (Pounds): 143 General Appearance: no apparent distress EENT: other - On ventilator Cardiovascular: normal rate Respiratory/Chest: decreased breath sounds Abdomen: distended Leonidas Honeycutt MD Jun 28, 2020 10:28
--- NOTE | 2020-06-28 11:15 | NUR ---
NURSE NOTES: Pt having blood transfuse. Pre transfusion vital signs are BP 127/67, HR 83, Temp 96.8 Pt is tolerating blood transfusion. Vitals after 15 mins BP 124/75, HR 87, Temp 96.6. Will continue to monitor pt.
[2020-06-28 12:00] VITALS: BP 124/75
--- NOTE | 2020-06-28 12:09 | Pulmonology Progress Note ---
Subjective ROS Limited/Unobtainable: Yes Interval Events: FiO2 now 40%; Remains on vent. Constitutional: Reports: other - hypothemic HEENT: Repors: no symptoms Respiratory: Reports: no symptoms Cardiovascular: Reports: no symptoms Gastrointestinal/Abdominal: Reports: no symptoms Genitourinary: Reports: no symptoms Allergies: Coded Allergies: No Known Allergies (Unverified , 06/13/20) Objective Last 24 Hour Vital Signs Date Time Temp Pulse Resp B/P (MAP) Pulse Ox O2 Delivery O2 Flow Rate FiO2 06/28/20 11:04 85 06/28/20 08:00 97.9 82 22 121/69 (86) 99 06/28/20 08:00 Mechanical Ventilator 06/28/20 08:00 40 06/28/20 07:00 84 25 40 06/28/20 04:00 63 06/28/20 04:00 Mechanical Ventilator 06/28/20 04:00 40 06/28/20 04:00 97.7 58 20 107/58 (74) 100 06/28/20 02:57 78 25 35 06/28/20 00:00 Mechanical Ventilator 06/28/20 00:00 35 06/28/20 00:00 96.0 60 20 106/63 (77) 100 06/28/20 00:00 62 06/27/20 23:51 61 18 35 06/27/20 20:00 Mechanical Ventilator 06/27/20 20:00 35 06/27/20 20:00 95.5 58 20 119/70 (86) 100 06/27/20 20:00 59 06/27/20 19:37 61 26 40 06/27/20 17:25 60 24 50 06/27/20 16:00 61 06/27/20 16:00 40 06/27/20 16:00 93.5 61 20 116/65 (82) 100 06/27/20 16:00 Mechanical Ventilator 06/27/20 15:15 62 28 50 06/27/20 13:05 63 30 50 Intake and Output 06/27/20 06/28/20 19:00 07:00 Intake Total 450 ml Balance 450 ml Free Water 50 ml Tube Feeding 400 ml # Bowel Movements 3 General Appearance: no acute distress HEENT: status post trach Respiratory: chest wall non-tender, lungs clear Cardiovascular: normal peripheral pulses, normal rate Abdomen: normal bowel sounds Extremities: no cyanosis Microbiology Date/Time Source Procedure Growth Status 06/27/20 10:17 Stool Clostridium difficile Toxin Assay - Final Complete Laboratory Tests 06/27/20 13:38: POC Whole Blood Glucose 153H 06/28/20 00:01: POC Whole Blood Glucose [Pending] 06/28/20 02:50: White Blood Count 12.0H, Red Blood Count 2.06L, Hemoglobin 6.3*L, Hematocrit 19.6L, Mean Corpuscular Volume 95, Mean Corpuscular Hemoglobin 30.6, Mean Corpuscular Hemoglobin Concent 32.1, Red Cell Distribution Width 15.1H, Platelet Count 99L, Mean Platelet Volume 11.7H, Neutrophils (%) (Auto) , Lymphocytes (%) (Auto) , Monocytes (%) (Auto) , Eosinophils (%) (Auto) , Basophils (%) (Auto) , Differential Total Cells Counted 100, Neutrophils % (Manual) 83H, Lymphocytes % (Manual) 8L, Monocytes % (Manual) 3, Eosinophils % (Manual) 2, Basophils % (Manual) 0, Band Neutrophils 4, Nucleated Red Blood Cells 1, Platelet Estimate DecreasedL, Platelet Morphology Normal, Hypochromasia 2+, Anisocytosis 1+, Sodium Level 135L, Potassium Level 4.2, Chloride Level 102, Carbon Dioxide Level 32, Anion Gap 1L, Blood Urea Nitrogen 58H, Creatinine 3.8H, Estimat Glomerular Filtration Rate 20.2, Glucose Level 148H, Calcium Level 8.6, Phosphorus Level 3.1, Magnesium Level 2.6H, Total Bilirubin 0.4, Aspartate Amino Transf (AST/SGOT) 796H, Alanine Aminotransferase (ALT/SGPT) 510H, Alkaline Phosphatase 650H, Total Protein 6.4, Albumin 1.5L, Globulin 4.9, Albumin/Globulin Ratio 0.3L 06/28/20 06:26: POC Whole Blood Glucose [Pending] Current Medications Medications (Trade) Dose Ordered Sig/Maryjane Route PRN Reason Start Time Stop Time Status Last Admin Dose Admin Acetaminophen (Tylenol) 650 mg Q4H PRN GT Mild Pain (Pain Scale 1-3) 06/18/20 23:00 07/18/20 22:59 Acetaminophen (Tylenol) 650 mg Q4HR PRN GT FEVER 06/14/20 09:45 12/7/20 09:44 06/19/20 20:45 Aluminum Hydroxide (Amphojel) 1,920 mg Q6H GT 06/17/20 10:00 07/17/20 09:59 06/28/20 09:34 Ascorbic Acid (Vitamin C) 500 mg DAILY ORAL 06/16/20 09:00 07/16/20 08:59 06/28/20 08:29 Chlorhexidine Gluconate (Inés-Hex 2%) 1 applic DAILY@2000 TOPIC 06/21/20 20:00 09/19/20 19:59 06/27/20 20:00 Dextrose (Dextrose 50%) 25 ml Q30M PRN IV Hypoglycemia 06/14/20 03:45 09/12/20 03:44 Dextrose (Dextrose 50%) 50 ml Q30M PRN IV Hypoglycemia 06/14/20 03:45 09/12/20 03:44 Epoetin Bonilla (Epoetin Bonilla-EPBX(NON ESRD)) 10,000 unit TUE-TUE-TUE SUBQ 06/18/20 21:00 09/16/20 20:59 06/27/20 21:04 Haloperidol Lactate (Haldol) 5 mg Q6H PRN IM Agitation 06/21/20 23:15 08/05/20 23:14 06/25/20 18:17 Lansoprazole (Prevacid) 30 mg BID ORAL 06/27/20 18:00 07/27/20 17:59 06/28/20 08:29 Levothyroxine Sodium (Synthroid) 50 mcg DAILY@0630 ORAL 06/25/20 06:30 07/25/20 06:29 06/28/20 06:22 Vancomycin HCl ([facility] pharmacy to dose) 1 ea DAILY PRN MISC Per rx protocol 06/27/20 11:30 07/18/20 23:59 Assessment/Plan Problems: (1) Acute respiratory failure Assessment/Plan IMPRESSION: 1. Chronic respiratory failure. 2. Hypoxemia. 3. Respiratory acidosis. 4. Anemia. 5. Leukocytosis. 6. DVT 7. S/p code blue 06/19/20 DISCUSSION: The patient's x-ray is markedly abnormal with bilateral infiltrates. I suspect he has pulmonary fibrosis. Latest CXR is unchanged; will repeat COVID 19 pcr and antigen both negative No anticoagulation for DVT due to anemia S/p IVC filter placement Continue assist-control mechanical ventilation; currently FiO2 40%; SaO2 100%, broad-spectrum antibiotics. Transfusion as needed. Will decrease PEEP to 5; S/p HD WIll decrease FiO2 as tolerated I will follow carefully. Hugo Carl Omar Syed MD Jun 28, 2020 12:09
--- NOTE | 2020-06-28 12:11 | Infectious Diseases Prog Note ---
Assessment/Plan Assessment/Plan IMPRESSION: Pneumonia with Pseudomonas & Stenotrophomonas treated Hypothermia COVID19 X 2: negative Ventilator-dependent respiratory failure, Diabetes mellitus type 2, Hypertension, History of left BKA, Hypertension, anemia, Major depression, Pressure ulcer, Elevated transaminase, Hyperkalemia. Anemia R leg DVT s/p IVC filter Sacral osteomyelitis Severe anemia Acute renal failure ESRD Hypercapnic respiratory failure Hematuria Thrombocytopenia Diverticulosis RECOMMENDATION: Continue Vancomycin until 07/18 Subjective ROS Limited/Unobtainable: Yes Constitutional: Denies: fever Neurologic: Reports: confusion, other - on restraint Allergies: Coded Allergies: No Known Allergies (Unverified , 06/13/20) Objective Last 24 Hour Vital Signs Date Time Temp Pulse Resp B/P (MAP) Pulse Ox O2 Delivery O2 Flow Rate FiO2 06/28/20 11:04 85 06/28/20 08:00 97.9 82 22 121/69 (86) 99 06/28/20 08:00 Mechanical Ventilator 06/28/20 08:00 40 06/28/20 07:00 84 25 40 06/28/20 04:00 63 06/28/20 04:00 Mechanical Ventilator 06/28/20 04:00 40 06/28/20 04:00 97.7 58 20 107/58 (74) 100 06/28/20 02:57 78 25 35 06/28/20 00:00 Mechanical Ventilator 06/28/20 00:00 35 06/28/20 00:00 96.0 60 20 106/63 (77) 100 06/28/20 00:00 62 06/27/20 23:51 61 18 35 06/27/20 20:00 Mechanical Ventilator 06/27/20 20:00 35 06/27/20 20:00 95.5 58 20 119/70 (86) 100 06/27/20 20:00 59 06/27/20 19:37 61 26 40 06/27/20 17:25 60 24 50 06/27/20 16:00 61 06/27/20 16:00 40 06/27/20 16:00 93.5 61 20 116/65 (82) 100 06/27/20 16:00 Mechanical Ventilator 06/27/20 15:15 62 28 50 06/27/20 13:05 63 30 50 Height (Feet): 5 Height (Inches): 8.00 Weight (Pounds): 143 HEENT: status post trach Respiratory/Chest: other - on ventilator Cardiovascular: normal rate Abdomen: soft, non tender, other - GT feeding Genitourinary: other - Sparrow catheter, decreased hematuria Extremities: other - edema of hands, Left BKA Neurologic/Psychiatric: other - sleeping Microbiology Date/Time Source Procedure Growth Status 06/27/20 10:17 Stool Clostridium difficile Toxin Assay - Final Complete Laboratory Tests Test 06/27/20 13:38 06/28/20 00:01 06/28/20 02:50 06/28/20 06:26 POC Whole Blood Glucose 153 MG/DL (74-106) H Pending Pending White Blood Count 12.0 K/UL (4.8-10.8) H Red Blood Count 2.06 M/UL (4.70-6.10) L Hemoglobin 6.3 G/DL (14.2-18.0) *L Hematocrit 19.6 % (42.0-52.0) L Mean Corpuscular Volume 95 FL (80-99) Mean Corpuscular Hemoglobin 30.6 PG (27.0-31.0) Mean Corpuscular Hemoglobin Concent 32.1 G/DL (32.0-36.0) Red Cell Distribution Width 15.1 % (11.6-14.8) H Platelet Count 99 K/UL (150-450) L Mean Platelet Volume 11.7 FL (6.5-10.1) H Neutrophils (%) (Auto) % (45.0-75.0) Lymphocytes (%) (Auto) % (20.0-45.0) Monocytes (%) (Auto) % (1.0-10.0) Eosinophils (%) (Auto) % (0.0-3.0) Basophils (%) (Auto) % (0.0-2.0) Differential Total Cells Counted 100 Neutrophils % (Manual) 83 % (45-75) H Lymphocytes % (Manual) 8 % (20-45) L Monocytes % (Manual) 3 % (1-10) Eosinophils % (Manual) 2 % (0-3) Basophils % (Manual) 0 % (0-2) Band Neutrophils 4 % (0-8) Nucleated Red Blood Cells 1 /100 WBC Platelet Estimate Decreased L Platelet Morphology Normal Hypochromasia 2+ Anisocytosis 1+ Sodium Level 135 MMOL/L (136-145) L Potassium Level 4.2 MMOL/L (3.5-5.1) Chloride Level 102 MMOL/L (98-107) Carbon Dioxide Level 32 MMOL/L (21-32) Anion Gap 1 mmol/L (5-15) L Blood Urea Nitrogen 58 mg/dL (7-18) H Creatinine 3.8 MG/DL (0.55-1.30) H Estimat Glomerular Filtration Rate 20.2 mL/min (>60) Glucose Level 148 MG/DL (74-106) H Calcium Level 8.6 MG/DL (8.5-10.1) Phosphorus Level 3.1 MG/DL (2.5-4.9) Magnesium Level 2.6 MG/DL (1.8-2.4) H Total Bilirubin 0.4 MG/DL (0.2-1.0) Aspartate Amino Transf (AST/SGOT) 796 U/L (15-37) H Alanine Aminotransferase (ALT/SGPT) 510 U/L (12-78) H Alkaline Phosphatase 650 U/L (46-116) H Total Protein 6.4 G/DL (6.4-8.2) Albumin 1.5 G/DL (3.4-5.0) L Globulin 4.9 g/dL Albumin/Globulin Ratio 0.3 (1.0-2.7) L Current Medications Medications (Trade) Dose Ordered Sig/Maryjane Route PRN Reason Start Time Stop Time Status Last Admin Dose Admin Acetaminophen (Tylenol) 650 mg Q4H PRN GT Mild Pain (Pain Scale 1-3) 06/18/20 23:00 07/18/20 22:59 Acetaminophen (Tylenol) 650 mg Q4HR PRN GT FEVER 06/14/20 09:45 07/14/20 09:44 06/19/20 20:45 Aluminum Hydroxide (Amphojel) 1,920 mg Q6H GT 06/17/20 10:00 07/17/20 09:59 06/28/20 09:34 Ascorbic Acid (Vitamin C) 500 mg DAILY ORAL 06/16/20 09:00 07/16/20 08:59 06/28/20 08:29 Chlorhexidine Gluconate (Inés-Hex 2%) 1 applic DAILY@1999 TOPIC 06/21/20 20:00 09/19/20 19:59 06/27/20 20:00 Dextrose (Dextrose 50%) 25 ml Q30M PRN IV Hypoglycemia 06/14/20 03:45 09/12/20 03:44 Dextrose (Dextrose 50%) 50 ml Q30M PRN IV Hypoglycemia 06/14/20 03:45 09/12/20 03:44 Epoetin Bonilla (Epoetin Bonilla-EPBX(NON ESRD)) 10,000 unit TUE-TUE-TUE SUBQ 06/18/20 21:00 09/16/20 20:59 06/27/20 21:04 Haloperidol Lactate (Haldol) 5 mg Q6H PRN IM Agitation 06/21/20 23:15 08/05/20 23:14 06/25/20 18:17 Lansoprazole (Prevacid) 30 mg BID ORAL 06/27/20 18:00 07/27/20 17:59 06/28/20 08:29 Levothyroxine Sodium (Synthroid) 50 mcg DAILY@0630 ORAL 06/25/20 06:30 07/25/20 06:29 06/28/20 06:22 Vancomycin HCl ([facility] pharmacy to dose) 1 ea DAILY PRN MISC Per rx protocol 06/27/20 11:30 07/18/20 23:59 Paul Amador MD Jun 28, 2020 12:11
--- NOTE | 2020-06-28 13:03 | Surgery Progress Note ---
Surgery Progress Note Subjective Additional Comments leukocytosis anemia no n/v dressings going well Objective Last 24 Hour Vital Signs Date Time Temp Pulse Resp B/P (MAP) Pulse Ox O2 Delivery O2 Flow Rate FiO2 06/28/20 12:00 40 06/28/20 12:00 Mechanical Ventilator 06/28/20 12:00 96.6 85 26 124/75 (91) 99 06/28/20 11:04 85 06/28/20 08:00 97.9 82 22 121/69 (86) 99 06/28/20 08:00 Mechanical Ventilator 06/28/20 08:00 40 06/28/20 07:00 84 25 40 06/28/20 04:00 63 06/28/20 04:00 Mechanical Ventilator 06/28/20 04:00 40 06/28/20 04:00 97.7 58 20 107/58 (74) 100 06/28/20 02:57 78 25 35 06/28/20 00:00 Mechanical Ventilator 06/28/20 00:00 35 06/28/20 00:00 96.0 60 20 106/63 (77) 100 06/28/20 00:00 62 06/27/20 23:51 61 18 35 06/27/20 20:00 Mechanical Ventilator 06/27/20 20:00 35 06/27/20 20:00 95.5 58 20 119/70 (86) 100 06/27/20 20:00 59 06/27/20 19:37 61 26 40 06/27/20 17:25 60 24 50 06/27/20 16:00 61 06/27/20 16:00 40 06/27/20 16:00 93.5 61 20 116/65 (82) 100 06/27/20 16:00 Mechanical Ventilator 06/27/20 15:15 62 28 50 06/27/20 13:05 63 30 50 I&O Intake and Output 06/27/20 06/28/20 19:00 07:00 Intake Total 450 ml Balance 450 ml Free Water 50 ml Tube Feeding 400 ml # Bowel Movements 3 Dressing: saturated Cardiovascular: RSR Respiratory: decreased breath sounds Abdomen: soft, non-tender, present bowel sounds Extremities: no tenderness, no cyanosis Laboratory Tests Test 06/27/20 13:38 06/28/20 00:01 06/28/20 02:50 06/28/20 06:26 POC Whole Blood Glucose 153 MG/DL (74-106) H Pending Pending White Blood Count 12.0 K/UL (4.8-10.8) H Red Blood Count 2.06 M/UL (4.70-6.10) L Hemoglobin 6.3 G/DL (14.2-18.0) *L Hematocrit 19.6 % (42.0-52.0) L Mean Corpuscular Volume 95 FL (80-99) Mean Corpuscular Hemoglobin 30.6 PG (27.0-31.0) Mean Corpuscular Hemoglobin Concent 32.1 G/DL (32.0-36.0) Red Cell Distribution Width 15.1 % (11.6-14.8) H Platelet Count 99 K/UL (150-450) L Mean Platelet Volume 11.7 FL (6.5-10.1) H Neutrophils (%) (Auto) % (45.0-75.0) Lymphocytes (%) (Auto) % (20.0-45.0) Monocytes (%) (Auto) % (1.0-10.0) Eosinophils (%) (Auto) % (0.0-3.0) Basophils (%) (Auto) % (0.0-2.0) Differential Total Cells Counted 100 Neutrophils % (Manual) 83 % (45-75) H Lymphocytes % (Manual) 8 % (20-45) L Monocytes % (Manual) 3 % (1-10) Eosinophils % (Manual) 2 % (0-3) Basophils % (Manual) 0 % (0-2) Band Neutrophils 4 % (0-8) Nucleated Red Blood Cells 1 /100 WBC Platelet Estimate Decreased L Platelet Morphology Normal Hypochromasia 2+ Anisocytosis 1+ Sodium Level 135 MMOL/L (136-145) L Potassium Level 4.2 MMOL/L (3.5-5.1) Chloride Level 102 MMOL/L (98-107) Carbon Dioxide Level 32 MMOL/L (21-32) Anion Gap 1 mmol/L (5-15) L Blood Urea Nitrogen 58 mg/dL (7-18) H Creatinine 3.8 MG/DL (0.55-1.30) H Estimat Glomerular Filtration Rate 20.2 mL/min (>60) Glucose Level 148 MG/DL (74-106) H Calcium Level 8.6 MG/DL (8.5-10.1) Phosphorus Level 3.1 MG/DL (2.5-4.9) Magnesium Level 2.6 MG/DL (1.8-2.4) H Total Bilirubin 0.4 MG/DL (0.2-1.0) Aspartate Amino Transf (AST/SGOT) 796 U/L (15-37) H Alanine Aminotransferase (ALT/SGPT) 510 U/L (12-78) H Alkaline Phosphatase 650 U/L (46-116) H Total Protein 6.4 G/DL (6.4-8.2) Albumin 1.5 G/DL (3.4-5.0) L Globulin 4.9 g/dL Albumin/Globulin Ratio 0.3 (1.0-2.7) L Plan Problems: (1) Leukocytosis Assessment & Plan: 54-year-old male multiple comorbidities admitted for abnormal chest x-ray potentially pneumonia leukocytosis abnormal labs. Patient identified to have a prior left BKA surgical sutures still in place as well as a surgical sacral wound with sutures in place. Considerations of dehiscence being identified and potential etiology of infection. After evaluation unlikely source of infection though the sacral wound was looked to be dehiscing at the inferior aspect. No acute surgical mention at this time We will discussed care plan with PCP Recommend follow-up with initial surgeon considerations of removal of surgical sutures Care plan initiated worsening lft's US ordered ? shayla Extensive airspace consolidations at the lung bases consistent with severe multifocal infiltrate. Associated, large bilateral pleural effusions. Evaluation of the abdominal viscera is markedly suboptimal due to poor CT technique and lack of intravenous contrast. No definite hepatic lesion. No definite cholelithiasis. Mild colon wall thickening. The spleen, pancreas, and adrenal glands are not visualized well enough reliable assessment. No definite hydronephrosis. The kidneys are hyperdense, correlate for medical renal disease. No nephrolithiasis. Sparrow catheter within a decompressed urinary bladder. Moderate diverticulosis, without acute diverticulitis. No small bowel obstruction. PEG tube presumably within the stomach. Atherosclerotic calcifications of the aorta. Low-attenuation of the intravascular blood pool, correlate for anemia. IVC filter, incidentally noted. Air within the subcutaneous fat overlying the sacrum with skin thickening, correlate with physical exam for sacral decubitus ulcer. Degenerative changes of the spine. Bilateral pars defects at L5 without anterolisthesis of L5 on S1. IMPRESSION: Extensive airspace consolidations at the lung bases consistent with severe multifocal infiltrate. Associated, large bilateral pleural effusions. Evaluation of the abdominal viscera is markedly suboptimal due to poor CT technique and lack of intravenous contrast. Moderate diverticulosis, without acute diverticulitis. No small bowel obstruction. PEG tube presumably within the stomach. Note, if there is suspicion for colitis consider repeat scan with improved CT technique/intravenous contrast. Mild gallbladder wall thickening without definite evidence of cholelithiasis. Air within the subcutaneous fat overlying the sacrum with skin thickening, correlate with physical exam for sacral decubitus ulcer. Bilateral pars defects at L5. The kidneys are hyperdense, correlate for medical renal disease.. There is prompt uptake within the liver with washout of radiotracer from the liver on subsequent imaging. There is excretion into the biliary ducts. Gallbladder activity is present in a timely fashion indicating patency of the cystic duct. Very scant bowel activity is demonstrated concerning for common bile duct obstruction or sphincter dysfunction. IMPRESSION: No evidence to suggest cholecystitis. Gallbladder activity is present in a timely fashion indicating patency of the cystic duct. Very little radiotracer noted in the small bowel. Correlate with LFTs as a degree of common bile duct obstruction or sphincter dysfunction not excluded. Consider further evaluation with MRCP. (2) Surgical wound dehiscence Assessment & Plan: Patient identified to have a left BKA surgical sutures in place flap looks like it is taken well no signs of infection at this time no signs of seroma hematoma or drainage. Unknown exact length or duration of potential prior left BKA and until then recommend leaving sutures in place as it may be too early though it does look well-healed. If able to obtain prior records we will be happy to remove sutures otherwise will need follow-up with primary surgeon furthermore patient identified to have a surgical wound in the sacral area seems he probably potentially had a stage IV sacral decubitus ulcer that had debridement and primary closure. Fortunately. Sutures are still in place and it looks like the inferior aspect may be slowly dehiscing. There is no significant drainage no foul odor no signs of active infection unknown if bone was palpable prior. Can consider removing surgical sutures but again would recommend obtaining prior records of possible prior to doing so. Also recommend following up with primary surgeon as this may need ongoing continued care. Will follow with recommendations and as information is available. Continue current care plan. Wash wounds daily with normal saline. Apply skin protectant Optifoam dressing. Turn every 2 hours. Offload pressure with pillows and air mattress. Nutritional optimization. (3) History of left below knee amputation (4) Malnutrition Assessment & Plan: DAILY ESTIMATED NEEDS: Needs based on Wound, critical care, underweight/ 55.5kg 25-33 (25-35 w/ HD) kcals/kg 8300-2038 (1212-3214) total kcals 1.25-2 g protein/kg 69-111 g total protein 25-30 mL/kg 3212-1479 total fluid mLs NUTRITION DIAGNOSIS: * Swallowing difficulty R/T respiratory status as evidenced by pt is trach/vent dep, PEG dep. CURRENT TF: Nepro @ 40ml/hr x24 hrs ENTERAL NUTRITION RECOMMENDATIONS: Nepro @ 40ml/hr x 24 hrs to provide 960ml, 1728kcal, 78g prot, 698ml free water * Maintain current TF * HOB over 30 degrees/ water flush per MD ADDITIONAL RECOMMENDATIONS: * Per SNF: HT=69" LJ=112fxv -> rec daily calibrated bedscale wt * Monitor lytes: elev K-> now wnl, phos now low * Wound healing: RANDY BID + Nephrovite 1 tab qdaily * Monitor for bm, last bm 06/19, now 06/24 * W/ HD rec to add Prosource 1 pack qdaily for added 11g pro/day. (5) Anemia (6) KERRI (acute kidney injury) (7) Acute respiratory failure (8) Hyperkalemia (9) Anemia (10) Abnormal laboratory test result (11) Chronic respiratory failure Azar Mares Jun 28, 2020 13:03
--- NOTE | 2020-06-28 14:36 | NUR ---
INSURANCE CLINICALS AND REVIEW FAXED TO [facility] [phone]
--- NOTE | 2020-06-28 14:55 | General Progress Note ---
Subjective ROS Limited/Unobtainable: Yes Allergies: Coded Allergies: No Known Allergies (Unverified , 06/13/20) Objective Last 24 Hour Vital Signs Date Time Temp Pulse Resp B/P (MAP) Pulse Ox O2 Delivery O2 Flow Rate FiO2 06/28/20 12:00 81 06/28/20 12:00 40 06/28/20 12:00 Mechanical Ventilator 06/28/20 12:00 96.6 85 26 124/75 (91) 99 06/28/20 11:04 85 06/28/20 11:00 81 25 40 06/28/20 08:00 97.9 82 22 121/69 (86) 99 06/28/20 08:00 Mechanical Ventilator 06/28/20 08:00 40 06/28/20 07:00 84 25 40 06/28/20 04:00 63 06/28/20 04:00 Mechanical Ventilator 06/28/20 04:00 40 06/28/20 04:00 97.7 58 20 107/58 (74) 100 06/28/20 02:57 78 25 35 06/28/20 00:00 Mechanical Ventilator 06/28/20 00:00 35 06/28/20 00:00 96.0 60 20 106/63 (77) 100 06/28/20 00:00 62 06/27/20 23:51 61 18 35 06/27/20 20:00 Mechanical Ventilator 06/27/20 20:00 35 06/27/20 20:00 95.5 58 20 119/70 (86) 100 06/27/20 20:00 59 06/27/20 19:37 61 26 40 06/27/20 17:25 60 24 50 06/27/20 16:00 61 06/27/20 16:00 40 06/27/20 16:00 93.5 61 20 116/65 (82) 100 06/27/20 16:00 Mechanical Ventilator 06/27/20 15:15 62 28 50 Intake and Output 06/27/20 06/28/20 19:00 07:00 Intake Total 490 ml Balance 490 ml Free Water 50 ml Tube Feeding 440 ml # Bowel Movements 3 Laboratory Tests 06/28/20 00:01: POC Whole Blood Glucose [Pending] 06/28/20 02:50: White Blood Count 12.0H, Red Blood Count 2.06L, Hemoglobin 6.3*L, Hematocrit 19.6L, Mean Corpuscular Volume 95, Mean Corpuscular Hemoglobin 30.6, Mean Corpuscular Hemoglobin Concent 32.1, Red Cell Distribution Width 15.1H, Platelet Count 99L, Mean Platelet Volume 11.7H, Neutrophils (%) (Auto) , Lymphocytes (%) (Auto) , Monocytes (%) (Auto) , Eosinophils (%) (Auto) , Basophils (%) (Auto) , Differential Total Cells Counted 100, Neutrophils % (Manual) 83H, Lymphocytes % (Manual) 8L, Monocytes % (Manual) 3, Eosinophils % (Manual) 2, Basophils % (Manual) 0, Band Neutrophils 4, Nucleated Red Blood Cells 1, Platelet Estimate DecreasedL, Platelet Morphology Normal, Hypochromasia 2+, Anisocytosis 1+, Sodium Level 135L, Potassium Level 4.2, Chloride Level 102, Carbon Dioxide Level 32, Anion Gap 1L, Blood Urea Nitrogen 58H, Creatinine 3.8H, Estimat Glomerular Filtration Rate 20.2, Glucose Level 148H, Calcium Level 8.6, Phosphorus Level 3.1, Magnesium Level 2.6H, Total Bilirubin 0.4, Aspartate Amino Transf (AST/SGOT) 796H, Alanine Aminotransferase (ALT/SGPT) 510H, Alkaline Phosphatase 650H, Total Protein 6.4, Albumin 1.5L, Globulin 4.9, Albumin/Globulin Ratio 0.3L 06/28/20 06:26: POC Whole Blood Glucose [Pending] 06/28/20 13:13: POC Whole Blood Glucose 100 Height (Feet): 5 Height (Inches): 8.00 Weight (Pounds): 143 Assessment/Plan Problem List: (1) Anemia ICD Codes: D64.9 - Anemia, unspecified SNOMED: 817162056 (2) KERRI (acute kidney injury) ICD Codes: N17.9 - Acute kidney failure, unspecified SNOMED: 0984962, 19877446 (3) Acute respiratory failure ICD Codes: J96.00 - Acute respiratory failure, unspecified whether with hypoxia or hypercapnia SNOMED: 48548619 Qualifiers: Qualified Codes: J96.02 - Acute respiratory failure with hypercapnia (4) Hyperkalemia ICD Codes: E87.5 - Hyperkalemia SNOMED: 30418619 (5) Abnormal laboratory test result ICD Codes: R89.9 - Unspecified abnormal finding in specimens from other organs, systems and tissues SNOMED: 122168992 (6) Anemia ICD Codes: D64.9 - Anemia, unspecified SNOMED: 272550131 Status: progressing Assessment/Plan: trach and peg s/p cardiac arrest severe anemia [id number].[id number] dr gaviria of low hb as well as fast drop in platlet dvt s/p ivc filter resp insuff sepsis arf poor prognosis Neida Apple MD Jun 28, 2020 14:54
[2020-06-28 16:00] VITALS: BP 126/74
--- NOTE | 2020-06-28 19:11 | General Progress Note ---
Subjective Allergies: Coded Allergies: No Known Allergies (Unverified , 06/13/20) Subjective above note H&H dropped again got transfused yesterday and today stools liquid, in rectal tube stool OB pending Objective Last 24 Hour Vital Signs Date Time Temp Pulse Resp B/P (MAP) Pulse Ox O2 Delivery O2 Flow Rate FiO2 06/28/20 16:00 Mechanical Ventilator 06/28/20 16:00 97.5 72 24 126/74 (91) 95 06/28/20 16:00 75 06/28/20 16:00 40 06/28/20 15:10 78 23 40 06/28/20 12:00 81 06/28/20 12:00 40 06/28/20 12:00 Mechanical Ventilator 06/28/20 12:00 96.6 85 26 124/75 (91) 99 06/28/20 11:04 85 06/28/20 11:00 81 25 40 06/28/20 08:00 97.9 82 22 121/69 (86) 99 06/28/20 08:00 Mechanical Ventilator 06/28/20 08:00 40 06/28/20 07:00 84 25 40 06/28/20 04:00 63 06/28/20 04:00 Mechanical Ventilator 06/28/20 04:00 40 06/28/20 04:00 97.7 58 20 107/58 (74) 100 06/28/20 02:57 78 25 35 06/28/20 00:00 Mechanical Ventilator 06/28/20 00:00 35 06/28/20 00:00 96.0 60 20 106/63 (77) 100 06/28/20 00:00 62 06/27/20 23:51 61 18 35 06/27/20 20:00 Mechanical Ventilator 06/27/20 20:00 35 06/27/20 20:00 95.5 58 20 119/70 (86) 100 06/27/20 20:00 59 06/27/20 19:37 61 26 40 Intake and Output 06/27/20 06/28/20 19:00 07:00 Intake Total 490 ml Balance 490 ml Free Water 50 ml Tube Feeding 440 ml # Bowel Movements 3 Laboratory Tests 06/28/20 00:01: POC Whole Blood Glucose [Pending] 06/28/20 02:50: White Blood Count 12.0H, Red Blood Count 2.06L, Hemoglobin 6.3*L, Hematocrit 19.6L, Mean Corpuscular Volume 95, Mean Corpuscular Hemoglobin 30.6, Mean Corpuscular Hemoglobin Concent 32.1, Red Cell Distribution Width 15.1H, Platelet Count 99L, Mean Platelet Volume 11.7H, Neutrophils (%) (Auto) , Lymphocytes (%) (Auto) , Monocytes (%) (Auto) , Eosinophils (%) (Auto) , Basophils (%) (Auto) , Differential Total Cells Counted 100, Neutrophils % (Manual) 83H, Lymphocytes % (Manual) 8L, Monocytes % (Manual) 3, Eosinophils % (Manual) 2, Basophils % (Manual) 0, Band Neutrophils 4, Nucleated Red Blood Cells 1, Platelet Estimate DecreasedL, Platelet Morphology Normal, Hypochromasia 2+, Anisocytosis 1+, Sodium Level 135L, Potassium Level 4.2, Chloride Level 102, Carbon Dioxide Level 32, Anion Gap 1L, Blood Urea Nitrogen 58H, Creatinine 3.8H, Estimat Glomerular Filtration Rate 20.2, Glucose Level 148H, Hemoglobin A1c [Pending], Calcium Level 8.6, Phosphorus Level 3.1, Magnesium Level 2.6H, Total Bilirubin 0.4, Aspartate Amino Transf (AST/SGOT) 796H, Alanine Aminotransferase (ALT/SGPT) 510H , Alkaline Phosphatase 650H, Total Protein 6.4, Albumin 1.5L, Globulin 4.9, Albumin/Globulin Ratio 0.3L 06/28/20 06:26: POC Whole Blood Glucose [Pending] 06/28/20 13:13: POC Whole Blood Glucose 100 06/28/20 18:08: POC Whole Blood Glucose 108H Height (Feet): 5 Height (Inches): 8.00 Weight (Pounds): 143 Objective Debilitated elderly man NCAT supple Coarse BS RRR abd sofft, flat, (+) GT s/p LLE BKA Assessment/Plan Status: progressing Assessment/Plan: Assessment Abnormal LFT - improved - ? infectious hepatitis - ? vascular - ? meds - ? other Gross hematuria Acute anemia, ? urinary losses, ? GI loss Recommendations - f/u infectious hepatitis panel - continue to hold seroquel - follow LFT and CBC - await stool OB --> EGD if OB (+) - TF - Transfuse PRN Fco Stringer MD Jun 28, 2020 19:11
--- NOTE | 2020-06-28 19:20 | NUR ---
NURSE HAND-OFF REPORT: Important Events on Shift:1 unit PRBC transfused Patient Status: stable, full code Diet: Nepro 40cc/hr Pending Orders: N Pending Results/Labs:N Pending MD notification:N Latest Vital Signs: Temperature 97.5 , Pulse 74 , B/P 126 /74 , Respiratory Rate 25 , O2 SAT 95 , Mechanical Ventilator, O2 Flow Rate 15.0 . Vital Sign Comment: stable EKG Rhythm: Sinus Rhythm Rhythm change?: N MD Notified?: N -Dr. Ruel BENDER Response: No New Orders Received Latest Santiago Fall Score: 60 Fall Risk: High Risk Safety Measures: Call light Within Reach, Bed Alarm Zone 2, Side Rails Side Rails x3, Bed position Low and Locked. Fall Precautions: Yellow Socks Yellow Gown Door Sign Patient Fall Education Report given to MAX Ardon.
[2020-06-28 20:00] VITALS: BP 139/83
[2020-06-28] MEDS ORDERED: NovoLOG Insulin Flexpen SUBQ SCH (21:00)
--- NOTE | 2020-06-28 21:00 | NUR ---
NURSE NOTES: Seen and examined by GÉNESIS Andrew at this time. Tolerating vent settings well. Will continue to monitor.
--- NOTE | 2020-06-28 21:31 | Cardiac Electrophysiology PN ---
Assessment/Plan Assessment/Plan 1. Vent-dependent respirator failure. S/P tracheostomy. On 40% Fio2 Chest x-ray extensive bilateral pneumonia or ARDS. Off isolation EF 50%. Ruled out for GA. BNP 24863. On iv Abx 2. Tachycardia, likely due to respiratory failure. 3. Right femoral vein DVT. S/P IVC filter 06/18 4. Dysphagia, status post PEG placement. 5. Renal failure. S/P Right IJ Iron and HD by Dr. Honeycutt. 6. Severe anemia, S/P PRBC. Getting 2 more units due to hematuria 7. High LFTs, s/p CT abdomen and pelvis and HIDA FU Dr Stringer 8. Transient bradycardia, resolved DW RN Subjective Subjective On the Vent off isolation. On 40% Fio2 and PEEP 5. S/P IVC filter and PRBC S/P Right IJ Iron and first HD 06/21/20 Had [facility] as HR dropped to 30 at 4 am 06/25/20 No further Got PRBC yesterday as Hb dropped to 5.6 likley due to hematuria as was pulling on the cabrera Got 1 unit of PRBC today also Objective Last 24 Hour Vital Signs Date Time Temp Pulse Resp B/P (MAP) Pulse Ox O2 Delivery O2 Flow Rate FiO2 06/28/20 18:55 74 25 40 06/28/20 16:00 Mechanical Ventilator 06/28/20 16:00 97.5 72 24 126/74 (91) 95 06/28/20 16:00 75 06/28/20 16:00 40 06/28/20 15:10 78 23 40 06/28/20 12:00 81 06/28/20 12:00 40 06/28/20 12:00 Mechanical Ventilator 06/28/20 12:00 96.6 85 26 124/75 (91) 99 06/28/20 11:04 85 06/28/20 11:00 81 25 40 06/28/20 08:00 97.9 82 22 121/69 (86) 99 06/28/20 08:00 Mechanical Ventilator 06/28/20 08:00 40 06/28/20 07:00 84 25 40 06/28/20 04:00 63 06/28/20 04:00 Mechanical Ventilator 06/28/20 04:00 40 06/28/20 04:00 97.7 58 20 107/58 (74) 100 06/28/20 02:57 78 25 35 06/28/20 00:00 Mechanical Ventilator 06/28/20 00:00 35 06/28/20 00:00 96.0 60 20 106/63 (77) 100 06/28/20 00:00 62 06/27/20 23:51 61 18 35 Intake and Output 06/27/20 06/28/20 19:00 07:00 Intake Total 490 ml Balance 490 ml Free Water 50 ml Tube Feeding 440 ml # Bowel Movements 3 Laboratory Tests Test 06/28/20 00:01 06/28/20 02:50 06/28/20 06:26 06/28/20 13:13 POC Whole Blood Glucose Pending Pending 100 MG/DL (74-106) White Blood Count 12.0 K/UL (4.8-10.8) H Red Blood Count 2.06 M/UL (4.70-6.10) L Hemoglobin 6.3 G/DL (14.2-18.0) *L Hematocrit 19.6 % (42.0-52.0) L Mean Corpuscular Volume 95 FL (80-99) Mean Corpuscular Hemoglobin 30.6 PG (27.0-31.0) Mean Corpuscular Hemoglobin Concent 32.1 G/DL (32.0-36.0) Red Cell Distribution Width 15.1 % (11.6-14.8) H Platelet Count 99 K/UL (150-450) L Mean Platelet Volume 11.7 FL (6.5-10.1) H Neutrophils (%) (Auto) % (45.0-75.0) Lymphocytes (%) (Auto) % (20.0-45.0) Monocytes (%) (Auto) % (1.0-10.0) Eosinophils (%) (Auto) % (0.0-3.0) Basophils (%) (Auto) % (0.0-2.0) Differential Total Cells Counted 100 Neutrophils % (Manual) 83 % (45-75) H Lymphocytes % (Manual) 8 % (20-45) L Monocytes % (Manual) 3 % (1-10) Eosinophils % (Manual) 2 % (0-3) Basophils % (Manual) 0 % (0-2) Band Neutrophils 4 % (0-8) Nucleated Red Blood Cells 1 /100 WBC Platelet Estimate Decreased L Platelet Morphology Normal Hypochromasia 2+ Anisocytosis 1+ Sodium Level 135 MMOL/L (136-145) L Potassium Level 4.2 MMOL/L (3.5-5.1) Chloride Level 102 MMOL/L (98-107) Carbon Dioxide Level 32 MMOL/L (21-32) Anion Gap 1 mmol/L (5-15) L Blood Urea Nitrogen 58 mg/dL (7-18) H Creatinine 3.8 MG/DL (0.55-1.30) H Estimat Glomerular Filtration Rate 20.2 mL/min (>60) Glucose Level 148 MG/DL (74-106) H Hemoglobin A1c 7.8 % (4.3-6.0) H Calcium Level 8.6 MG/DL (8.5-10.1) Phosphorus Level 3.1 MG/DL (2.5-4.9) Magnesium Level 2.6 MG/DL (1.8-2.4) H Total Bilirubin 0.4 MG/DL (0.2-1.0) Aspartate Amino Transf (AST/SGOT) 796 U/L (15-37) H Alanine Aminotransferase (ALT/SGPT) 510 U/L (12-78) H Alkaline Phosphatase 650 U/L (46-116) H Total Protein 6.4 G/DL (6.4-8.2) Albumin 1.5 G/DL (3.4-5.0) L Globulin 4.9 g/dL Albumin/Globulin Ratio 0.3 (1.0-2.7) L Test 06/28/20 18:08 POC Whole Blood Glucose 108 MG/DL (74-106) H Microbiology Date/Time Source Procedure Growth Status 06/27/20 10:17 Stool Clostridium difficile Toxin Assay - Final Complete Objective HEAD AND NECK: Status post tracheostomy. Right IJ Iron in place LUNGS: Coarse rhonchi and basilar rales. CARDIOVASCULAR: Shows irregular S1 and S2 with no gallop. ABDOMEN: Soft. Status post G-tube. EXTREMITIES: No pitting edema. Lance Mcguire MD Jun 28, 2020 21:31
[2020-06-28] MEDS: Dyna-Hex 2% Top Sol 2oz TOPIC SCH (21:42)
[2020-06-29] VITALS (7 sets, daily range): BP systolic 119–143; BP diastolic 74–81
--- NOTE | 2020-06-29 | NUR ---
NURSE NOTES: Patient noted to be asleep on comfortable position. No acute distress noted. Will continue to monitor.
--- NOTE | 2020-06-29 03:00 | NUR ---
NURSE NOTES: Patient noted asleep, but easily arousable. Denies pain at this time. Tolerating vent settings well. Will continue to monitor.
[2020-06-29] MEDS: Aluminum Hydroxide Gel Susp 15ml GT SCH ×4 (03:37→21:27)
[2020-06-29] MEDS: NovoLOG Insulin Flexpen SUBQ SCH ×4 (06:00→18:13)
[2020-06-29 06:56] LABS: HEMOGLOBIN 7.4 G/DL (14.2-18.0); MEAN CORPUSCULAR VOLUME 95 FL (80-99); PLATELET COUNT 88 K/UL (150-450); RED BLOOD COUNT 2.43 M/UL (4.70-6.10); RED CELL DISTRIBUTION WIDTH 15.3 % (11.6-14.8); WHITE BLOOD COUNT 13.5 K/UL (4.8-10.8)
--- NOTE | 2020-06-29 07:15 | NUR ---
NURSE HAND-OFF REPORT: Important Events on Shift: - Patient Status: stable Diet: GT Pending Orders: Pending Results/Labs: Pending MD notification: Latest Vital Signs: Temperature 95.7 , Pulse 79 , B/P 140 /80 , Respiratory Rate 29 , O2 SAT 95 , Mechanical Ventilator, O2 Flow Rate 15.0 . Vital Sign Comment: EKG Rhythm: Sinus Rhythm Rhythm change?: N MD Notified?: N -Dr. Ruel BENDER Response: No New Orders Received Latest Santiago Fall Score: 60 Fall Risk: High Risk Safety Measures: Call light Within Reach, Bed Alarm Zone 2, Side Rails Side Rails x3, Bed position Low and Locked. Fall Precautions: Yellow Socks Yellow Gown Door Sign Patient Fall Education Report given to MAX Arias.
[2020-06-29 07:30] LABS: ALBUMIN 1.5 G/DL (3.4-5.0); ALBUMIN/GLOBULIN RATIO 0.3 (1.0-2.7); BILIRUBIN,TOTAL 0.4 MG/DL (0.2-1.0); CALCIUM 8.4 MG/DL (8.5-10.1); CREATININE 4.2 MG/DL (0.55-1.30); PHOSPHORUS 3.1 MG/DL (2.5-4.9); POTASSIUM 4.1 MMOL/L (3.5-5.1)
[2020-06-29] MEDS: Ascorbic Acid 500mg tab ORAL SCH (08:32)
--- NOTE | 2020-06-29 10:05 | Pulmonology Progress Note ---
Subjective ROS Limited/Unobtainable: Yes Interval Events: FiO2 now 40%; Remains on vent. Constitutional: Denies: fever HEENT: Repors: no symptoms Respiratory: Reports: no symptoms Cardiovascular: Reports: no symptoms Gastrointestinal/Abdominal: Reports: no symptoms Genitourinary: Reports: no symptoms Allergies: Coded Allergies: No Known Allergies (Unverified , 06/13/20) Objective Last 24 Hour Vital Signs Date Time Temp Pulse Resp B/P (MAP) Pulse Ox O2 Delivery O2 Flow Rate FiO2 06/29/20 09:00 71 06/29/20 08:00 Mechanical Ventilator 06/29/20 08:00 96.3 71 21 143/77 (99) 97 06/29/20 08:00 40 06/29/20 07:04 79 29 40 06/29/20 04:00 71 06/29/20 04:00 40 06/29/20 04:00 95.7 78 27 140/80 (100) 95 06/29/20 04:00 Mechanical Ventilator 06/29/20 03:10 77 28 40 06/29/20 00:10 65 26 97 Mechanical Ventilator 40 06/29/20 00:00 73 06/29/20 00:00 96.1 73 29 136/81 (99) 95 06/29/20 00:00 Mechanical Ventilator 06/29/20 00:00 40 06/28/20 22:48 79 26 40 06/28/20 20:00 95.4 73 27 139/83 (101) 95 06/28/20 20:00 40 06/28/20 20:00 72 06/28/20 20:00 Mechanical Ventilator 06/28/20 18:55 74 25 40 06/28/20 16:00 Mechanical Ventilator 06/28/20 16:00 97.5 72 24 126/74 (91) 95 06/28/20 16:00 75 06/28/20 16:00 40 06/28/20 15:10 78 23 40 06/28/20 12:00 81 06/28/20 12:00 40 06/28/20 12:00 Mechanical Ventilator 06/28/20 12:00 96.6 85 26 124/75 (91) 99 06/28/20 11:04 85 06/28/20 11:00 81 25 40 Intake and Output 11/21/20 11/22/20 19:00 07:00 Intake Total 490 ml 565 ml Output Total 100 ml Balance 390 ml 565 ml Free Water 50 ml 125 ml Tube Feeding 440 ml 440 ml Output Urine Total 100 ml General Appearance: no acute distress HEENT: status post trach Respiratory: chest wall non-tender, lungs clear Cardiovascular: normal peripheral pulses, normal rate Abdomen: normal bowel sounds Extremities: no cyanosis Microbiology Date/Time Source Procedure Growth Status 06/27/20 10:17 Stool Clostridium difficile Toxin Assay - Final Complete Laboratory Tests 06/28/20 13:13: POC Whole Blood Glucose 100 06/28/20 16:00: Stool Occult Blood [Pending] 06/28/20 18:08: POC Whole Blood Glucose 108H 06/29/20 00:26: POC Whole Blood Glucose 118H 06/29/20 06:08: White Blood Count 13.5H, Red Blood Count 2.43L, Hemoglobin 7.4L, Hematocrit 23.0L, Mean Corpuscular Volume 95, Mean Corpuscular Hemoglobin 30.4, Mean Corpuscular Hemoglobin Concent 32.1, Red Cell Distribution Width 15.3H, Platelet Count 88L, Mean Platelet Volume 10.6H, Neutrophils (%) (Auto) , Lymphocytes (%) (Auto) , Monocytes (%) (Auto) , Eosinophils (%) (Auto) , Basophils (%) (Auto) , Differential Total Cells Counted 100, Neutrophils % (Manual) 81H, Lymphocytes % (Manual) 5L, Monocytes % (Manual) 4, Eosinophils % (Manual) 5H, Basophils % (Manual) 0, Band Neutrophils 5, Nucleated Red Blood Cells 1, Platelet Estimate DecreasedL, Platelet Morphology Normal, Hypochromasia 1+, Anisocytosis 1+, Sodium Level 134L, Potassium Level 4.1, Chloride Level 100, Carbon Dioxide Level 30, Anion Gap 4L, Blood Urea Nitrogen 72H, Creatinine 4.2H, Estimat Glomerular Filtration Rate 18.1, Glucose Level 152H, Calcium Level 8.4L, Phosphorus Level 3.1, Magnesium Level 2.8H, Total Bilirubin 0.4, Aspartate Amino Transf (AST/SGOT) 375H, Alanine Aminotransferase (ALT/SGPT) 383H, Alkaline Phosphatase 632H, Total Protein 6.7, Albumin 1.5L, Globulin 5.2, Albumin/Globulin Ratio 0.3L Current Medications Medications (Trade) Dose Ordered Sig/Maryjane Route PRN Reason Start Time Stop Time Status Last Admin Dose Admin Acetaminophen (Tylenol) 650 mg Q4H PRN GT Mild Pain (Pain Scale 1-3) 06/18/20 23:00 07/18/20 22:59 Acetaminophen (Tylenol) 650 mg Q4HR PRN GT FEVER 06/14/20 09:45 07/14/20 09:44 06/19/20 20:45 Aluminum Hydroxide (Amphojel) 1,920 mg Q6H GT 06/17/20 10:00 07/17/20 09:59 06/29/20 09:18 Ascorbic Acid (Vitamin C) 500 mg DAILY ORAL 06/16/20 09:00 07/16/20 08:59 06/29/20 08:32 Chlorhexidine Gluconate (Inés-Hex 2%) 1 applic DAILY@1999 TOPIC 06/21/20 20:00 09/19/20 19:59 06/28/20 21:42 Dextrose (Dextrose 50%) 25 ml Q30M PRN IV Hypoglycemia 06/28/20 18:30 09/26/20 18:29 Dextrose (Dextrose 50%) 50 ml Q30M PRN IV Hypoglycemia 06/28/20 18:30 09/26/20 18:29 Epoetin Bonilla (Epoetin Bonilla-EPBX(NON ESRD)) 10,000 unit TUE-TUE-TUE SUBQ 06/18/20 21:00 09/16/20 20:59 06/27/20 21:04 Haloperidol Lactate (Haldol) 5 mg Q6H PRN IM Agitation 06/21/20 23:15 08/05/20 23:14 06/25/20 18:17 Insulin Aspart (NovoLOG) EVERY 6 HOURS SUBQ 06/29/20 00:00 09/27/20 00:00 Lansoprazole (Prevacid) 30 mg BID ORAL 06/27/20 18:00 07/27/20 17:59 06/29/20 08:32 Levothyroxine Sodium (Synthroid) 50 mcg DAILY@0630 ORAL 06/25/20 06:30 07/25/20 06:29 06/29/20 06:57 Vancomycin HCl ([facility] pharmacy to dose) 1 ea DAILY PRN MISC Per rx protocol 06/27/20 11:30 07/18/20 23:59 Assessment/Plan Problems: (1) Acute respiratory failure Assessment/Plan IMPRESSION: 1. Chronic respiratory failure. 2. Hypoxemia. 3. Respiratory acidosis. 4. Anemia. 5. Leukocytosis. 6. DVT 7. S/p code blue 06/19/20 DISCUSSION: The patient's x-ray is markedly abnormal with bilateral infiltrates. I suspect he has pulmonary fibrosis. Latest CXR is unchanged; will repeat COVID 19 pcr and antigen both negative No anticoagulation for DVT due to anemia S/p IVC filter placement Continue assist-control mechanical ventilation; currently FiO2 40%; SaO2 100%, broad-spectrum antibiotics. Transfusion as needed. Will decrease PEEP to 5; S/p HD WIll decrease FiO2 as tolerated I will follow carefully. Hugo Carl Omar Syed MD Jun 29, 2020 10:05
--- NOTE | 2020-06-29 10:31 | Hematology/Onc Progress Note ---
Assessment/Plan Assessment/Plan ASSESSMENT AND PLAN: #. Anemia that is likely due to chronic disease, r/o gi bleeding --> anemia panel has been reviewed, ferritin is >2000 --> no e/o hemolysis is noted --> transfuse on prn basis --> blood consent has been signed --> hgb 7.4-->7.4-->7-->6.7-->8-->7.5-->8.4-->9.1->8.1-->5.6->7.4 --> folic acid is wnl --> 1 unit prbc 06/18 --> epogen has been started # Acute DVT in the distal right common femoral vein and profunda femoris vein. --> DUPLEX. Acute DVT in the distal right common femoral vein and profunda femoris vein. 2. No evidence of left lower extremity DVT. --> cannot anticoagulate at this time --> 06/17 s/p ivc filter placement --> hold off anticoag # Leukocytosis is likely due to b/l infiltrates --> on abx as per id -> ABX yolis/vanc-->yolis/linezolid--> yolis/levaq-->linezolid->vanc --> continue trend --> wbc 15-->12->9.5-->13 # Respiratory failure in this patient with vent-dependent respiratory failure. 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 # Dysphagia --> status post PEG placement. # Renal failure. -> per Dr. Honeycutt. # Hyperkalemia and kayxelate as needed. # Dvt ppx scds Appreciate consultation and angela RN Subjective HEENT: Denies: no symptoms, eye pain, blurred vision, tearing, double vision, ear pain, ear discharge, nose pain, nose congestion, throat pain, throat swelling, mouth pain, mouth swelling, other Cardiovascular: Denies: no symptoms, chest pain, edema, irregular heart rate, lightheadedness, palpitations, syncope, other Respiratory: Denies: no symptoms, cough, shortness of breath, SOB with excertion, SOB at rest, sputum, wheezing, other Gastrointestinal/Abdominal: Denies: no symptoms, abdomen distended, abdominal pain, black stools, tarry stools, blood in stool, constipated, diarrhea, difficulty swallowing, nausea, poor appetite, poor fluid intake, rectal blee ding, vomiting, other Endocrine: Denies: no symptoms, excessive sweating, flushing, intolerance to cold, intolerance to heat, increased hunger, increased thirst, increased urine, unexplained weight gain, unexplained weight loss, other Hematologic/Lymphatic: Denies: no symptoms, anemia, easy bleeding, easy bruising, adenopathy, other Allergies: Coded Allergies: No Known Allergies (Unverified , 06/13/20) Subjective 06/16 meds noted, labs reviewed, vent to trach, for ivc filter potentially 06/17 labs noted, meds reviewed, for ivc filter once covid neg 06/18 labs are noted, on vent and gt, 1 unit prbc ordered 06/19 labs pending, is s/p ivcf placement yesterday 06/20 for hd nontunneled cathter placement, no bleeding 06/22 labs noted, no bleeding, found down overnight, got ct brain, is neg 06/23 overnight is agitated and requiring restraints 06/24 labs noted, meds reviewed, hgb pending for am, restraints 06/25 labs reviewed, meds noted, no bleeding, hgb improved 06/26 per Rn, with rapid response overnight hr is improved, meds noted 06/27 labs reviewed, meds noted, no bleeding, hgb 5.6, wbc elevated, to get 2 unit prbc 06/29 on vanc, wbc 13, hgb 7.3, plt 88, on vanc Objective Objective Current Medications Medications (Trade) Dose Ordered Sig/Maryjane Route PRN Reason Start Time Stop Time Status Last Admin Dose Admin Acetaminophen (Tylenol) 650 mg Q4H PRN GT Mild Pain (Pain Scale 1-3) 06/18/20 23:00 07/18/20 22:59 Acetaminophen (Tylenol) 650 mg Q4HR PRN GT FEVER 06/14/20 09:45 07/14/20 09:44 06/19/20 20:45 Aluminum Hydroxide (Amphojel) 1,920 mg Q6H GT 06/17/20 10:00 07/17/20 09:59 06/29/20 09:18 Ascorbic Acid (Vitamin C) 500 mg DAILY ORAL 06/16/20 09:00 07/16/20 08:59 06/29/20 08:32 Chlorhexidine Gluconate (Inés-Hex 2%) 1 applic DAILY@1999 TOPIC 06/21/20 20:00 09/19/20 19:59 06/28/20 21:42 Dextrose (Dextrose 50%) 25 ml Q30M PRN IV Hypoglycemia 06/28/20 18:30 09/26/20 18:29 Dextrose (Dextrose 50%) 50 ml Q30M PRN IV Hypoglycemia 06/28/20 18:30 09/26/20 18:29 Epoetin Bonilla (Epoetin Bonilla-EPBX(NON ESRD)) 10,000 unit SUBQ 06/18/20 21:00 09/16/20 20:59 06/27/20 21:04 Haloperidol Lactate (Haldol) 5 mg Q6H PRN IM Agitation 06/21/20 23:15 08/05/20 23:14 06/25/20 18:17 Insulin Aspart (NovoLOG) EVERY 6 HOURS SUBQ 06/29/20 00:00 09/27/20 00:00 Lansoprazole (Prevacid) 30 mg BID ORAL 06/27/20 18:00 07/27/20 17:59 06/29/20 08:32 Levothyroxine Sodium (Synthroid) 50 mcg DAILY@0630 ORAL 06/25/20 06:30 07/25/20 06:29 06/29/20 06:57 Vancomycin HCl ([facility] pharmacy to dose) 1 ea DAILY PRN MISC Per rx protocol 06/27/20 11:30 07/18/20 23:59 Last 24 Hour Vital Signs Date Time Temp Pulse Resp B/P (MAP) Pulse Ox O2 Delivery O2 Flow Rate FiO2 06/29/20 09:00 71 06/29/20 08:00 Mechanical Ventilator 06/29/20 08:00 96.3 71 21 143/77 (99) 97 06/29/20 08:00 40 06/29/20 07:04 79 29 40 06/29/20 04:00 71 06/29/20 04:00 40 06/29/20 04:00 95.7 78 27 140/80 (100) 95 06/29/20 04:00 Mechanical Ventilator 06/29/20 03:10 77 28 40 06/29/20 00:10 65 26 97 Mechanical Ventilator 40 06/29/20 00:00 73 06/29/20 00:00 96.1 73 29 136/81 (99) 95 06/29/20 00:00 Mechanical Ventilator 06/29/20 00:00 40 06/28/20 22:48 79 26 40 06/28/20 20:00 95.4 73 27 139/83 (101) 95 06/28/20 20:00 40 06/28/20 20:00 72 06/28/20 20:00 Mechanical Ventilator 06/28/20 18:55 74 25 40 06/28/20 16:00 Mechanical Ventilator 06/28/20 16:00 97.5 72 24 126/74 (91) 95 06/28/20 16:00 75 06/28/20 16:00 40 06/28/20 15:10 78 23 40 06/28/20 12:00 81 06/28/20 12:00 40 06/28/20 12:00 Mechanical Ventilator 06/28/20 12:00 96.6 85 26 124/75 (91) 99 06/28/20 11:04 85 06/28/20 11:00 81 25 40 06/28/20 08:00 97.9 82 22 121/69 (86) 99 06/28/20 08:00 Mechanical Ventilator 06/28/20 08:00 40 06/28/20 07:00 84 25 40 06/28/20 04:00 63 06/28/20 04:00 Mechanical Ventilator 06/28/20 04:00 40 06/28/20 04:00 97.7 58 20 107/58 (74) 100 06/28/20 02:57 78 25 35 06/28/20 00:00 Mechanical Ventilator 06/28/20 00:00 35 06/28/20 00:00 96.0 60 20 106/63 (77) 100 06/28/20 00:00 62 06/27/20 23:51 61 18 35 06/27/20 20:00 Mechanical Ventilator 06/27/20 20:00 35 06/27/20 20:00 95.5 58 20 119/70 (86) 100 06/27/20 20:00 59 06/27/20 19:37 61 26 40 06/27/20 17:25 60 24 50 06/27/20 16:00 61 06/27/20 16:00 40 06/27/20 16:00 93.5 61 20 116/65 (82) 100 06/27/20 16:00 Mechanical Ventilator 06/27/20 15:15 62 28 50 06/27/20 13:05 63 30 50 06/27/20 12:00 Mechanical Ventilator 06/27/20 12:00 55 06/27/20 12:00 40 06/27/20 12:00 40 06/27/20 12:00 93.4 59 20 111/63 (79) 100 06/27/20 11:11 55 20 50 Intake and Output 06/28/20 06/29/20 19:00 07:00 Intake Total 490 ml 565 ml Output Total 100 ml Balance 390 ml 565 ml Free Water 50 ml 125 ml Tube Feeding 440 ml 440 ml Output Urine Total 100 ml Labs Test 06/26/20 12:55 06/26/20 18:28 06/26/20 23:28 06/27/20 03:25 POC Whole Blood Glucose 152 MG/DL (74-106) 120 MG/DL (74-106) 154 MG/DL (74-106) White Blood Count 14.2 K/UL (4.8-10.8) Red Blood Count 1.84 M/UL (4.70-6.10) Hemoglobin 5.6 G/DL (14.2-18.0) Hematocrit 17.4 % (42.0-52.0) Mean Corpuscular Volume 94 FL (80-99) Mean Corpuscular Hemoglobin 30.3 PG (27.0-31.0) Mean Corpuscular Hemoglobin Concent 32.2 G/DL (32.0-36.0) Red Cell Distribution Width 16.3 % (11.6-14.8) Platelet Count 104 K/UL (150-450) Mean Platelet Volume 11.5 FL (6.5-10.1) Neutrophils (%) (Auto) % (45.0-75.0) Lymphocytes (%) (Auto) % (20.0-45.0) Monocytes (%) (Auto) % (1.0-10.0) Eosinophils (%) (Auto) % (0.0-3.0) Basophils (%) (Auto) % (0.0-2.0) Differential Total Cells Counted 100 Neutrophils % (Manual) 90 % (45-75) Lymphocytes % (Manual) 5 % (20-45) Monocytes % (Manual) 2 % (1-10) Eosinophils % (Manual) 3 % (0-3) Basophils % (Manual) 0 % (0-2) Band Neutrophils 0 % (0-8) Platelet Estimate Decreased Platelet Morphology Normal Hypochromasia 1+ Anisocytosis 1+ Sodium Level 135 MMOL/L (136-145) Potassium Level 4.0 MMOL/L (3.5-5.1) Chloride Level 102 MMOL/L (98-107) Carbon Dioxide Level 32 MMOL/L (21-32) Anion Gap 1 mmol/L (5-15) Blood Urea Nitrogen 49 mg/dL (7-18) Creatinine 3.2 MG/DL (0.55-1.30) Estimat Glomerular Filtration Rate 24.7 mL/min (>60) Glucose Level 173 MG/DL (74-106) Calcium Level 8.3 MG/DL (8.5-10.1) Total Bilirubin 0.4 MG/DL (0.2-1.0) Aspartate Amino Transf (AST/SGOT) 206 U/L (15-37) Alanine Aminotransferase (ALT/SGPT) 327 U/L (12-78) Alkaline Phosphatase 596 U/L (46-116) Total Protein 6.3 G/DL (6.4-8.2) Albumin 1.6 G/DL (3.4-5.0) Globulin 4.7 g/dL Albumin/Globulin Ratio 0.3 (1.0-2.7) Test 06/27/20 06:01 06/27/20 13:38 06/28/20 00:01 06/28/20 02:50 POC Whole Blood Glucose 159 MG/DL (74-106) 153 MG/DL (74-106) White Blood Count 12.0 K/UL (4.8-10.8) Red Blood Count 2.06 M/UL (4.70-6.10) Hemoglobin 6.3 G/DL (14.2-18.0) Hematocrit 19.6 % (42.0-52.0) Mean Corpuscular Volume 95 FL (80-99) Mean Corpuscular Hemoglobin 30.6 PG (27.0-31.0) Mean Corpuscular Hemoglobin Concent 32.1 G/DL (32.0-36.0) Red Cell Distribution Width 15.1 % (11.6-14.8) Platelet Count 99 K/UL (150-450) Mean Platelet Volume 11.7 FL (6.5-10.1) Neutrophils (%) (Auto) % (45.0-75.0) Lymphocytes (%) (Auto) % (20.0-45.0) Monocytes (%) (Auto) % (1.0-10.0) Eosinophils (%) (Auto) % (0.0-3.0) Basophils (%) (Auto) % (0.0-2.0) Differential Total Cells Counted 100 Neutrophils % (Manual) 83 % (45-75) Lymphocytes % (Manual) 8 % (20-45) Monocytes % (Manual) 3 % (1-10) Eosinophils % (Manual) 2 % (0-3) Basophils % (Manual) 0 % (0-2) Band Neutrophils 4 % (0-8) Nucleated Red Blood Cells 1 /100 WBC Platelet Estimate Decreased Platelet Morphology Normal Hypochromasia 2+ Anisocytosis 1+ Sodium Level 135 MMOL/L (136-145) Potassium Level 4.2 MMOL/L (3.5-5.1) Chloride Level 102 MMOL/L (98-107) Carbon Dioxide Level 32 MMOL/L (21-32) Anion Gap 1 mmol/L (5-15) Blood Urea Nitrogen 58 mg/dL (7-18) Creatinine 3.8 MG/DL (0.55-1.30) Estimat Glomerular Filtration Rate 20.2 mL/min (>60) Glucose Level 148 MG/DL (74-106) Hemoglobin A1c 7.8 % (4.3-6.0) Calcium Level 8.6 MG/DL (8.5-10.1) Phosphorus Level 3.1 MG/DL (2.5-4.9) Magnesium Level 2.6 MG/DL (1.8-2.4) Total Bilirubin 0.4 MG/DL (0.2-1.0) Aspartate Amino Transf (AST/SGOT) 796 U/L (15-37) Alanine Aminotransferase (ALT/SGPT) 510 U/L (12-78) Alkaline Phosphatase 650 U/L (46-116) Total Protein 6.4 G/DL (6.4-8.2) Albumin 1.5 G/DL (3.4-5.0) Globulin 4.9 g/dL Albumin/Globulin Ratio 0.3 (1.0-2.7) Test 06/28/20 06:26 06/28/20 13:13 06/28/20 16:00 06/28/20 18:08 POC Whole Blood Glucose 100 MG/DL (74-106) 108 MG/DL (74-106) Test 06/29/20 00:26 06/29/20 06:08 POC Whole Blood Glucose 118 MG/DL (74-106) White Blood Count 13.5 K/UL (4.8-10.8) Red Blood Count 2.43 M/UL (4.70-6.10) Hemoglobin 7.4 G/DL (14.2-18.0) Hematocrit 23.0 % (42.0-52.0) Mean Corpuscular Volume 95 FL (80-99) Mean Corpuscular Hemoglobin 30.4 PG (27.0-31.0) Mean Corpuscular Hemoglobin Concent 32.1 G/DL (32.0-36.0) Red Cell Distribution Width 15.3 % (11.6-14.8) Platelet Count 88 K/UL (150-450) Mean Platelet Volume 10.6 FL (6.5-10.1) Neutrophils (%) (Auto) % (45.0-75.0) Lymphocytes (%) (Auto) % (20.0-45.0) Monocytes (%) (Auto) % (1.0-10.0) Eosinophils (%) (Auto) % (0.0-3.0) Basophils (%) (Auto) % (0.0-2.0) Differential Total Cells Counted 100 Neutrophils % (Manual) 81 % (45-75) Lymphocytes % (Manual) 5 % (20-45) Monocytes % (Manual) 4 % (1-10) Eosinophils % (Manual) 5 % (0-3) Basophils % (Manual) 0 % (0-2) Band Neutrophils 5 % (0-8) Nucleated Red Blood Cells 1 /100 WBC Platelet Estimate Decreased Platelet Morphology Normal Hypochromasia 1+ Anisocytosis 1+ Sodium Level 134 MMOL/L (136-145) Potassium Level 4.1 MMOL/L (3.5-5.1) Chloride Level 100 MMOL/L (98-107) Carbon Dioxide Level 30 MMOL/L (21-32) Anion Gap 4 mmol/L (5-15) Blood Urea Nitrogen 72 mg/dL (7-18) Creatinine 4.2 MG/DL (0.55-1.30) Estimat Glomerular Filtration Rate 18.1 mL/min (>60) Glucose Level 152 MG/DL (74-106) Calcium Level 8.4 MG/DL (8.5-10.1) Phosphorus Level 3.1 MG/DL (2.5-4.9) Magnesium Level 2.8 MG/DL (1.8-2.4) Total Bilirubin 0.4 MG/DL (0.2-1.0) Aspartate Amino Transf (AST/SGOT) 375 U/L (15-37) Alanine Aminotransferase (ALT/SGPT) 383 U/L (12-78) Alkaline Phosphatase 632 U/L (46-116) Total Protein 6.7 G/DL (6.4-8.2) Albumin 1.5 G/DL (3.4-5.0) Globulin 5.2 g/dL Albumin/Globulin Ratio 0.3 (1.0-2.7) Height (Feet): 5 Height (Inches): 8.00 Weight (Pounds): 143 Objective PHYSICAL EXAMINATION: VITAL SIGNS: reviewed HEAD AND NECK: Show status post tracheostomy. vent+ LUNGS: Coarse rhonchi and basilar rales. CARDIOVASCULAR: Shows irregular S1 and S2 with no gallop. ABDOMEN: Soft. Status post G-tube. EXTREMITIES: No pitting edema.++Left Jose Epperson MD Jun 29, 2020 10:31
--- NOTE | 2020-06-29 11:31 | NUR ---
CASE MANAGEMENT:REVIEW 06/29/20 SI: AC/CHR RESP FAILURE. AC/CHR RENAL FAILURE TRACH/VENT DEPENDENT. ANEMIA...S/P 5 UNITS PRBC'S 96.3 71 21 143/77 97% ON 40% FIO2 VIA VENT WBC+13.5 H/H-7.4/23.0 PLT-88 BUN+72 CR+4.2 IS: SYNTHROID GT QD EPOETIN SQ MWF VIT C GT QD : STEP DOWN UNIT DCP: FROM [facility] SA[facility] PL[facility]: HAS NON TUNNELED DIALYSIS CATHETER
--- NOTE | 2020-06-29 11:36 | General Progress Note ---
Subjective Allergies: Coded Allergies: No Known Allergies (Unverified , 06/13/20) Objective Last 24 Hour Vital Signs Date Time Temp Pulse Resp B/P (MAP) Pulse Ox O2 Delivery O2 Flow Rate FiO2 06/29/20 09:00 71 06/29/20 08:00 Mechanical Ventilator 06/29/20 08:00 96.3 71 21 143/77 (99) 97 06/29/20 08:00 40 06/29/20 07:04 79 29 40 06/29/20 04:00 71 06/29/20 04:00 40 06/29/20 04:00 95.7 78 27 140/80 (100) 95 06/29/20 04:00 Mechanical Ventilator 06/29/20 03:10 77 28 40 06/29/20 00:10 65 26 97 Mechanical Ventilator 40 06/29/20 00:00 73 06/29/20 00:00 96.1 73 29 136/81 (99) 95 06/29/20 00:00 Mechanical Ventilator 06/29/20 00:00 40 06/28/20 22:48 79 26 40 06/28/20 20:00 95.4 73 27 139/83 (101) 95 06/28/20 20:00 40 06/28/20 20:00 72 06/28/20 20:00 Mechanical Ventilator 06/28/20 18:55 74 25 40 06/28/20 16:00 Mechanical Ventilator 06/28/20 16:00 97.5 72 24 126/74 (91) 95 06/28/20 16:00 75 06/28/20 16:00 40 06/28/20 15:10 78 23 40 06/28/20 12:00 81 06/28/20 12:00 40 06/28/20 12:00 Mechanical Ventilator 06/28/20 12:00 96.6 85 26 124/75 (91) 99 Intake and Output 06/28/20 06/29/20 19:00 07:00 Intake Total 490 ml 565 ml Output Total 100 ml Balance 390 ml 565 ml Free Water 50 ml 125 ml Tube Feeding 440 ml 440 ml Output Urine Total 100 ml Laboratory Tests 06/28/20 13:13: POC Whole Blood Glucose 100 06/28/20 16:00: Stool Occult Blood [Pending] 06/28/20 18:08: POC Whole Blood Glucose 108H 06/29/20 00:26: POC Whole Blood Glucose 118H 06/29/20 06:08: White Blood Count 13.5H, Red Blood Count 2.43L, Hemoglobin 7.4L, Hematocrit 23.0L, Mean Corpuscular Volume 95, Mean Corpuscular Hemoglobin 30.4, Mean Corpuscular Hemoglobin Concent 32.1, Red Cell Distribution Width 15.3H, Platelet Count 88L, Mean Platelet Volume 10.6H, Neutrophils (%) (Auto) , Lymphocytes (%) (Auto) , Monocytes (%) (Auto) , Eosinophils (%) (Auto) , Basophils (%) (Auto) , Differential Total Cells Counted 100, Neutrophils % (Manual) 81H, Lymphocytes % (Manual) 5L, Monocytes % (Manual) 4, Eosinophils % (Manual) 5H, Basophils % (Manual) 0, Band Neutrophils 5, Nucleated Red Blood Cells 1, Platelet Estimate DecreasedL, Platelet Morphology Normal, Hypochromasia 1+, Anisocytosis 1+, Sodium Level 134L, Potassium Level 4.1, Chloride Level 100, Carbon Dioxide Level 30, Anion Gap 4L, Blood Urea Nitrogen 72H, Creatinine 4.2H, Estimat Glomerular Filtration Rate 18.1, Glucose Level 152H, Calcium Level 8.4L, Phosphorus Level 3.1, Magnesium Level 2.8H, Total Bilirubin 0.4, Aspartate Amino Transf (AST/SGOT) 375H, Alanine Aminotransferase (ALT/SGPT) 383H, Alkaline Phosphatase 632H, Total Protein 6.7, Albumin 1.5L, Globulin 5.2, Albumin/Globulin Ratio 0.3L 06/29/20 11:12: POC Whole Blood Glucose 136H 06/29/20 11:24: POC Whole Blood Glucose 137H Height (Feet): 5 Height (Inches): 8.00 Weight (Pounds): 143 Assessment/Plan Problem List: (1) Anemia ICD Codes: D64.9 - Anemia, unspecified SNOMED: 435575179 (2) KERRI (acute kidney injury) ICD Codes: N17.9 - Acute kidney failure, unspecified SNOMED: 2816481, 02548030 (3) Acute respiratory failure ICD Codes: J96.00 - Acute respiratory failure, unspecified whether with hypoxia or hypercapnia SNOMED: 94702012 Qualifiers: Qualified Codes: J96.02 - Acute respiratory failure with hypercapnia (4) Hyperkalemia ICD Codes: E87.5 - Hyperkalemia SNOMED: 46475104 (5) Abnormal laboratory test result ICD Codes: R89.9 - Unspecified abnormal finding in specimens from other organs, systems and tissues SNOMED: 318928010 (6) Anemia ICD Codes: D64.9 - Anemia, unspecified SNOMED: 333222697 Status: progressing Assessment/Plan: trach and peg s/p cardiac arrest severe anemia hb is improving renal failure check lytes repeat cbc in am dvt s/p ivc filter resp insuff sepsis arf poor prognosis Neida Apple MD Jun 29, 2020 11:36
--- NOTE | 2020-06-29 12:10 | Nephrology Progress Note ---
Assessment/Plan Problem List: (1) KERRI (acute kidney injury) (2) Acute respiratory failure (3) Chronic respiratory failure (4) Anemia (5) Hyperkalemia Assessment Acute on chronic renal failure Anemia Respiratory failure acute on chronic Respiratory acidosis and hypoxia Hyperkalemia Plan June 29: Labs reviewed. Hemoglobin is higher. Next hemodialysis tomorrow June 30. Continue per consultants. June 28: Labs reviewed. Last dialyzed June 26. Hemoglobin remains low. Defer transfusion and work-up to plate preparer. Continue to follow-up renal parameters. June 27: Labs reviewed. Dialyzed yesterday. Hemoglobin low. Due for transfusion. Continue to monitor renal parameters and hemoglobin and hematocrit. June 26: Labs reviewed. Due for dialysis today. Continue per consultants. Continue to monitor liver enzymes. June 25: Labs reviewed. Will dialyze tomorrow. Continue per consultants. Check liver function enzymes. June 24: Dialyzed yesterday. Labs reviewed. Medication list reviewed. Liver enzymes remains elevated. Continue to monitor electrolytes renal parameters and LFTs. Hemodialysis in a.m. if needed. June 23: Patient will be dialyzed today again. Labs reviewed. Serum creatinine higher. Elevated liver enzymes persist. Patient full code. Continue per consultants. June 22: Patient dialyzed yesterday. Labs reviewed. Liver function tests and enzymes are elevated. Continue to monitor renal parameters and LFTs. Continue per consultants. Patient full code. June 21: Patient due for dialysis today. Labs and medication list reviewed. Discussed with RN. Continue to monitor renal parameters. June 20: Patient had an episode of bradycardia last night. Serum creatinine rising. Patient continues to have respiratory acidosis. Discussed with MAX Bond. Will order non tunneled dialysis catheter placement for initiation of dialysis treatment due to acute renal failure. Patient remains full code. I favor comfort care if bioethics consultation is sought and physicians on the team agreeable. June 19: No CHEM panel today. Low hemoglobin as of yesterday's lab results. Anemia management per Dr. Cueva. Continue to monitor renal parameters. June 18: Labs are reviewed. Hemoglobin lower. Creatinine higher. ABG not done yet. Patient full code. Continue per consultants. June 17: Labs reviewed. Hemoglobin low. Creatinine up to 3. Phosphorus levels elevated. Will start Amphojel via GT tube as a phosphorus binder. Monitor renal parameters. Check ABG. Continue per consultants. June 16: Labs reviewed. Serum creatinine mariana to 2.6. Abnormal electrolytes now normalized. Continue to monitor renal parameters and avoid nephrotoxic's. Continue to adjust pulmonary status as possible. June 15: ABG pH of 7.1. 2D echo suggestive of ejection fraction of 50%. Labs reviewed. Serum creatinine mariana. Will hold IV Lasix. Will give Kayexalate for high potassium and 1 amp of sodium bicarb. Albumin IV bolus given. Continue per consultants. Continue to monitor renal parameters. Kidney ultrasound ordered. June 14: As follow Pulmonary evaluation Sparrow catheter Hold IV fluid IV fluid, until 2D echo results available Kayexalate for high potassium IV Protonix 2D echocardiogram Anemia work-up More labs ordered Subjective ROS Limited/Unobtainable: Yes Objective Objective Last 24 Hour Vital Signs Date Time Temp Pulse Resp B/P (MAP) Pulse Ox O2 Delivery O2 Flow Rate FiO2 06/29/20 10:48 66 17 40 06/29/20 09:00 71 06/29/20 08:00 Mechanical Ventilator 06/29/20 08:00 96.3 71 21 143/77 (99) 97 06/29/20 08:00 40 06/29/20 07:04 79 29 40 06/29/20 04:00 71 06/29/20 04:00 40 06/29/20 04:00 95.7 78 27 140/80 (100) 95 06/29/20 04:00 Mechanical Ventilator 06/29/20 03:10 77 28 40 06/29/20 00:10 65 26 97 Mechanical Ventilator 40 06/29/20 00:00 73 06/29/20 00:00 96.1 73 29 136/81 (99) 95 06/29/20 00:00 Mechanical Ventilator 06/29/20 00:00 40 06/28/20 22:48 79 26 40 06/28/20 20:00 95.4 73 27 139/83 (101) 95 06/28/20 20:00 40 06/28/20 20:00 72 06/28/20 20:00 Mechanical Ventilator 06/28/20 18:55 74 25 40 06/28/20 16:00 Mechanical Ventilator 06/28/20 16:00 97.5 72 24 126/74 (91) 95 06/28/20 16:00 75 06/28/20 16:00 40 06/28/20 15:10 78 23 40 Intake and Output 06/28/20 06/29/20 19:00 07:00 Intake Total 490 ml 565 ml Output Total 100 ml Balance 390 ml 565 ml Free Water 50 ml 125 ml Tube Feeding 440 ml 440 ml Output Urine Total 100 ml Laboratory Tests 06/28/20 13:13: POC Whole Blood Glucose 100 06/28/20 16:00: Stool Occult Blood [Pending] 06/28/20 18:08: POC Whole Blood Glucose 108H 06/29/20 00:26: POC Whole Blood Glucose 118H 06/29/20 06:08: White Blood Count 13.5H, Red Blood Count 2.43L, Hemoglobin 7.4L, Hematocrit 23.0L, Mean Corpuscular Volume 95, Mean Corpuscular Hemoglobin 30.4, Mean Corpuscular Hemoglobin Concent 32.1, Red Cell Distribution Width 15.3H, Platelet Count 88L, Mean Platelet Volume 10.6H, Neutrophils (%) (Auto) , Lymphocytes (%) (Auto) , Monocytes (%) (Auto) , Eosinophils (%) (Auto) , Basophils (%) (Auto) , Differential Total Cells Counted 100, Neutrophils % (Manual) 81H, Lymphocytes % (Manual) 5L, Monocytes % (Manual) 4, Eosinophils % (Manual) 5H, Basophils % (Manual) 0, Band Neutrophils 5, Nucleated Red Blood Cells 1, Platelet Estimate DecreasedL, Platelet Morphology Normal, Hypochromasia 1+, Anisocytosis 1+, Sodium Level 134L, Potassium Level 4.1, Chloride Level 100, Carbon Dioxide Level 30, Anion Gap 4L, Blood Urea Nitrogen 72H, Creatinine 4.2H, Estimat Glomerular Filtration Rate 18.1, Glucose Level 152H, Calcium Level 8.4L, Phosphorus Level 3.1, Magnesium Level 2.8H, Total Bilirubin 0.4, Aspartate Amino Transf (AST/SGOT) 375H, Alanine Aminotransferase (ALT/SGPT) 383H, Alkaline Phosphatase 632H, Total Protein 6.7, Albumin 1.5L, Globulin 5.2, Albumin/Globulin Ratio 0.3L 06/29/20 11:12: POC Whole Blood Glucose 136H 06/29/20 11:24: POC Whole Blood Glucose 137H Height (Feet): 5 Height (Inches): 8.00 Weight (Pounds): 143 General Appearance: no apparent distress EENT: other - Trach to vent Cardiovascular: normal rate Respiratory/Chest: decreased breath sounds Abdomen: soft Leonidas Honeycutt MD Jun 29, 2020 12:10
--- NOTE | 2020-06-29 13:52 | NUR ---
INSURANCE CLINICALS AND REVIEW FAXED TO [facility] [phone] F [phone] REF# [id number] [id number]
[2020-06-29] MEDS ORDERED: Tubing IV Blood Pump IV ONE (14:17)
[2020-06-29] MEDS ORDERED: NS 275ml ONE (14:17)
--- NOTE | 2020-06-29 16:52 | General Progress Note ---
Subjective Allergies: Coded Allergies: No Known Allergies (Unverified , 06/13/20) Subjective above note stools liquid, in rectal tube-dark brown stool OB pending Objective Last 24 Hour Vital Signs Date Time Temp Pulse Resp B/P (MAP) Pulse Ox O2 Delivery O2 Flow Rate FiO2 06/29/20 16:00 40 06/29/20 16:00 66 06/29/20 15:12 64 21 40 06/29/20 12:26 68 06/29/20 12:00 40 06/29/20 12:00 95.7 66 23 124/77 (93) 97 06/29/20 12:00 Mechanical Ventilator 06/29/20 10:48 66 17 40 06/29/20 09:00 71 06/29/20 08:00 Mechanical Ventilator 06/29/20 08:00 96.3 71 21 143/77 (99) 97 06/29/20 08:00 40 06/29/20 07:04 79 29 40 06/29/20 04:00 71 06/29/20 04:00 40 06/29/20 04:00 95.7 78 27 140/80 (100) 95 06/29/20 04:00 Mechanical Ventilator 06/29/20 03:10 77 28 40 06/29/20 00:10 65 26 97 Mechanical Ventilator 40 06/29/20 00:00 73 06/29/20 00:00 96.1 73 29 136/81 (99) 95 06/29/20 00:00 Mechanical Ventilator 06/29/20 00:00 40 06/28/20 22:48 79 26 40 06/28/20 20:00 95.4 73 27 139/83 (101) 95 06/28/20 20:00 40 06/28/20 20:00 72 06/28/20 20:00 Mechanical Ventilator 06/28/20 18:55 74 25 40 Intake and Output 06/28/20 06/29/20 19:00 07:00 Intake Total 490 ml 565 ml Output Total 100 ml Balance 390 ml 565 ml Free Water 50 ml 125 ml Tube Feeding 440 ml 440 ml Output Urine Total 100 ml Laboratory Tests 06/28/20 18:08: POC Whole Blood Glucose 108H 06/29/20 00:26: POC Whole Blood Glucose 118H 06/29/20 06:08: White Blood Count 13.5H, Red Blood Count 2.43L, Hemoglobin 7.4L, Hematocrit 23.0L, Mean Corpuscular Volume 95, Mean Corpuscular Hemoglobin 30.4, Mean Corpuscular Hemoglobin Concent 32.1, Red Cell Distribution Width 15.3H, Platelet Count 88L, Mean Platelet Volume 10.6H, Neutrophils (%) (Auto) , Lymphocytes (%) (Auto) , Monocytes (%) (Auto) , Eosinophils (%) (Auto) , Basophils (%) (Auto) , Differential Total Cells Counted 100, Neutrophils % (Manual) 81H, Lymphocytes % (Manual) 5L, Monocytes % (Manual) 4, Eosinophils % (Manual) 5H, Basophils % (Manual) 0, Band Neutrophils 5, Nucleated Red Blood Cells 1, Platelet Estimate DecreasedL, Platelet Morphology Normal, Hypochromasia 1+, Anisocytosis 1+, Sodium Level 134L, Potassium Level 4.1, Chloride Level 100, Carbon Dioxide Level 30, Anion Gap 4L, Blood Urea Nitrogen 72H, Creatinine 4.2H, Estimat Glomerular Filtration Rate 18.1, Glucose Level 152H, Calcium Level 8.4L, Phosphorus Level 3.1, Magnesium Level 2.8H, Total Bilirubin 0.4, Aspartate Amino Transf (AST/SGOT) 375H, Alanine Aminotransferase (ALT/SGPT) 383H, Alkaline Phosphatase 632H, Total Protein 6.7, Albumin 1.5L, Globulin 5.2, Albumin/Globulin Ratio 0.3L 06/29/20 11:12: POC Whole Blood Glucose 136H 06/29/20 11:24: POC Whole Blood Glucose 137H 06/29/20 15:45: Random Vancomycin Level 20.2 Height (Feet): 5 Height (Inches): 8.00 Weight (Pounds): 143 Objective Debilitated elderly man NCAT supple Coarse BS RRR abd sofft, flat, (+) GT s/p LLE BKA Assessment/Plan Status: progressing Assessment/Plan: Assessment Abnormal LFT - improved - ? infectious hepatitis - Hep A and B negative - ? vascular - ? meds - ? other Gross hematuria Acute anemia, ? urinary losses, ? GI loss declining platelet count Recommendations - f/u infectious hepatitis panel - continue to hold seroquel - follow LFT and CBC - await stool OB --> EGD if OB (+) - TF - Transfuse PRN Khorrami,Payman MD Jun 29, 2020 16:52
--- NOTE | 2020-06-29 17:41 | Surgery Progress Note ---
Surgery Progress Note Subjective Additional Comments further breakdown of sacrum will likely need sutures removed incontinence may need diversion if revision of closure planned in future will cont local care discussed with rn Objective Last 24 Hour Vital Signs Date Time Temp Pulse Resp B/P (MAP) Pulse Ox O2 Delivery O2 Flow Rate FiO2 06/29/20 16:00 95.5 96 21 119/78 (92) 96 06/29/20 16:00 40 06/29/20 16:00 66 06/29/20 15:12 64 21 40 06/29/20 12:26 68 06/29/20 12:00 40 06/29/20 12:00 95.7 66 23 124/77 (93) 97 06/29/20 12:00 Mechanical Ventilator 06/29/20 10:48 66 17 40 06/29/20 09:00 71 06/29/20 08:00 Mechanical Ventilator 06/29/20 08:00 96.3 71 21 143/77 (99) 97 06/29/20 08:00 40 06/29/20 07:04 79 29 40 06/29/20 04:00 71 06/29/20 04:00 40 06/29/20 04:00 95.7 78 27 140/80 (100) 95 06/29/20 04:00 Mechanical Ventilator 06/29/20 03:10 77 28 40 06/29/20 00:10 65 26 97 Mechanical Ventilator 40 06/29/20 00:00 73 06/29/20 00:00 96.1 73 29 136/81 (99) 95 06/29/20 00:00 Mechanical Ventilator 06/29/20 00:00 40 06/28/20 22:48 79 26 40 06/28/20 20:00 95.4 73 27 139/83 (101) 95 06/28/20 20:00 40 06/28/20 20:00 72 06/28/20 20:00 Mechanical Ventilator 06/28/20 18:55 74 25 40 I&O Intake and Output 06/28/20 06/29/20 19:00 07:00 Intake Total 490 ml 565 ml Output Total 100 ml Balance 390 ml 565 ml Free Water 50 ml 125 ml Tube Feeding 440 ml 440 ml Output Urine Total 100 ml Dressing: saturated Cardiovascular: RSR Respiratory: decreased breath sounds Abdomen: non-tender, present bowel sounds, non-distended Extremities: no edema, no tenderness, no cyanosis Laboratory Tests Test 06/28/20 18:08 06/29/20 00:26 06/29/20 06:08 06/29/20 11:12 POC Whole Blood Glucose 108 MG/DL (74-106) H 118 MG/DL (74-106) H 136 MG/DL (74-106) H White Blood Count 13.5 K/UL (4.8-10.8) H Red Blood Count 2.43 M/UL (4.70-6.10) L Hemoglobin 7.4 G/DL (14.2-18.0) L Hematocrit 23.0 % (42.0-52.0) L Mean Corpuscular Volume 95 FL (80-99) Mean Corpuscular Hemoglobin 30.4 PG (27.0-31.0) Mean Corpuscular Hemoglobin Concent 32.1 G/DL (32.0-36.0) Red Cell Distribution Width 15.3 % (11.6-14.8) H Platelet Count 88 K/UL (150-450) L Mean Platelet Volume 10.6 FL (6.5-10.1) H Neutrophils (%) (Auto) % (45.0-75.0) Lymphocytes (%) (Auto) % (20.0-45.0) Monocytes (%) (Auto) % (1.0-10.0) Eosinophils (%) (Auto) % (0.0-3.0) Basophils (%) (Auto) % (0.0-2.0) Differential Total Cells Counted 100 Neutrophils % (Manual) 81 % (45-75) H Lymphocytes % (Manual) 5 % (20-45) L Monocytes % (Manual) 4 % (1-10) Eosinophils % (Manual) 5 % (0-3) H Basophils % (Manual) 0 % (0-2) Band Neutrophils 5 % (0-8) Nucleated Red Blood Cells 1 /100 WBC Platelet Estimate Decreased L Platelet Morphology Normal Hypochromasia 1+ Anisocytosis 1+ Sodium Level 134 MMOL/L (136-145) L Potassium Level 4.1 MMOL/L (3.5-5.1) Chloride Level 100 MMOL/L (98-107) Carbon Dioxide Level 30 MMOL/L (21-32) Anion Gap 4 mmol/L (5-15) L Blood Urea Nitrogen 72 mg/dL (7-18) H Creatinine 4.2 MG/DL (0.55-1.30) H Estimat Glomerular Filtration Rate 18.1 mL/min (>60) Glucose Level 152 MG/DL (74-106) H Calcium Level 8.4 MG/DL (8.5-10.1) L Phosphorus Level 3.1 MG/DL (2.5-4.9) Magnesium Level 2.8 MG/DL (1.8-2.4) H Total Bilirubin 0.4 MG/DL (0.2-1.0) Aspartate Amino Transf (AST/SGOT) 375 U/L (15-37) H Alanine Aminotransferase (ALT/SGPT) 383 U/L (12-78) H Alkaline Phosphatase 632 U/L (46-116) H Total Protein 6.7 G/DL (6.4-8.2) Albumin 1.5 G/DL (3.4-5.0) L Globulin 5.2 g/dL Albumin/Globulin Ratio 0.3 (1.0-2.7) L Test 06/29/20 11:24 06/29/20 15:45 POC Whole Blood Glucose 137 MG/DL (74-106) H Random Vancomycin Level 20.2 ug/mL Plan Problems: (1) Leukocytosis Assessment & Plan: 54-year-old male multiple comorbidities admitted for abnormal chest x-ray potentially pneumonia leukocytosis abnormal labs. Patient identified to have a prior left BKA surgical sutures still in place as well as a surgical sacral wound with sutures in place. Considerations of dehiscence being identified and potential etiology of infection. After evaluation unlikely source of infection though the sacral wound was looked to be dehiscing at the inferior aspect. No acute surgical mention at this time We will discussed care plan with PCP Recommend follow-up with initial surgeon considerations of removal of surgical sutures Care plan initiated worsening lft's US ordered ? shayla Extensive airspace consolidations at the lung bases consistent with severe multifocal infiltrate. Associated, large bilateral pleural effusions. Evaluation of the abdominal viscera is markedly suboptimal due to poor CT technique and lack of intravenous contrast. No definite hepatic lesion. No definite cholelithiasis. Mild colon wall thickening. The spleen, pancreas, and adrenal glands are not visualized well enough reliable assessment. No definite hydronephrosis. The kidneys are hyperdense, correlate for medical renal disease. No nephrolithiasis. Sparrow catheter within a decompressed urinary bladder. Moderate diverticulosis, without acute diverticulitis. No small bowel obstruction. PEG tube presumably within the stomach. Atherosclerotic calcifications of the aorta. Low-attenuation of the intravascular blood pool, correlate for anemia. IVC filter, incidentally noted. Air within the subcutaneous fat overlying the sacrum with skin thickening, correlate with physical exam for sacral decubitus ulcer. Degenerative changes of the spine. Bilateral pars defects at L5 without anterolisthesis of L5 on S1. IMPRESSION: Extensive airspace consolidations at the lung bases consistent with severe multifocal infiltrate. Associated, large bilateral pleural effusions. Evaluation of the abdominal viscera is markedly suboptimal due to poor CT technique and lack of intravenous contrast. Moderate diverticulosis, without acute diverticulitis. No small bowel obstruction. PEG tube presumably within the stomach. Note, if there is suspicion for colitis consider repeat scan with improved CT technique/intravenous contrast. Mild gallbladder wall thickening without definite evidence of cholelithiasis. Air within the subcutaneous fat overlying the sacrum with skin thickening, correlate with physical exam for sacral decubitus ulcer. Bilateral pars defects at L5. The kidneys are hyperdense, correlate for medical renal disease.. There is prompt uptake within the liver with washout of radiotracer from the liver on subsequent imaging. There is excretion into the biliary ducts. Gallbladder activity is present in a timely fashion indicating patency of the cystic duct. Very scant bowel activity is demonstrated concerning for common bile duct obstruction or sphincter dysfunction. IMPRESSION: No evidence to suggest cholecystitis. Gallbladder activity is present in a timely fashion indicating patency of the cystic duct. Very little radiotracer noted in the small bowel. Correlate with LFTs as a degree of common bile duct obstruction or sphincter dysfunction not excluded. Consider further evaluation with MRCP. (2) Surgical wound dehiscence Assessment & Plan: Patient identified to have a left BKA surgical sutures in place flap looks like it is taken well no signs of infection at this time no signs of seroma hematoma or drainage. Unknown exact length or duration of pote ntial prior left BKA and until then recommend leaving sutures in place as it may be too early though it does look well-healed. If able to obtain prior records we will be happy to remove sutures otherwise will need follow-up with primary surgeon furthermore patient identified to have a surgical wound in the sacral area seems he probably potentially had a stage IV sacral decubitus ulcer that had debridement and primary closure. Fortunately. Sutures are still in place and it looks like the inferior aspect may be slowly dehiscing. There is no significant drainage no foul odor no signs of active infection unknown if bone was palpable prior. Can consider removing surgical sutures but again would recommend obtaining prior records of possible prior to doing so. Also recommend following up with primary surgeon as this may need ongoing continued care. Will follow with recommendations and as information is available. Continue current care plan. Wash wounds daily with normal saline. Apply skin protectant Optifoam dressing. Turn every 2 hours. Offload pressure with pillows and air mattress. Nutritional optimization. (3) History of left below knee amputation (4) Malnutrition Assessment & Plan: DAILY ESTIMATED NEEDS: Needs based on Wound, critical care, underweight/ 55.5kg 25-33 (25-35 w/ HD) kcals/kg 7947-9575 ([id number]) total kcals 1.25-2 g protein/kg 69-111 g total protein 25-30 mL/kg 0140-8904 total fluid mLs NUTRITION DIAGNOSIS: * Swallowing difficulty R/T respiratory status as evidenced by pt is trach/vent dep, PEG dep. CURRENT TF: Nepro @ 40ml/hr x24 hrs ENTERAL NUTRITION RECOMMENDATIONS: Nepro @ 40ml/hr x 24 hrs to provide 960ml, 1728kcal, 78g prot, 698ml free water * Maintain current TF * HOB over 30 degrees/ water flush per MD ADDITIONAL RECOMMENDATIONS: * Per SNF: HT=69" FW=307ida -> rec daily calibrated bedscale wt * Monitor lytes: elev K-> now wnl, phos now low * Wound healing: RANDY BID + Nephrovite 1 tab qdaily * Monitor for bm, last bm 06/19, now 06/24 * W/ HD rec to add Prosource 1 pack qdaily for added 11g pro/day. (5) Anemia (6) KERRI (acute kidney injury) (7) Acute respiratory failure (8) Hyperkalemia (9) Anemia (10) Abnormal laboratory test result (11) Chronic respiratory failure Azar Mares Jun 29, 2020 17:41
--- NOTE | 2020-06-29 19:11 | NUR ---
NURSE HAND-OFF REPORT: Important Events on Shift:stable Patient Status: full code Diet: tube feeds Pending Orders: [] Pending Results/Labs:[] Pending MD notification:[] Latest Vital Signs: Temperature 95.5 , Pulse 96 , B/P 119 /78 , Respiratory Rate 21 , O2 SAT 96 , Mechanical Ventilator, O2 Flow Rate 15.0 . Vital Sign Comment: stable EKG Rhythm: Sinus Rhythm Rhythm change?: N MD Notified?: N -Dr. Ruel BENDER Response: No New Orders Received Latest Santiago Fall Score: 60 Fall Risk: High Risk Safety Measures: Call light Within Reach, Bed Alarm Zone 2, Side Rails Side Rails x3, Bed position Low and Locked. Fall Precautions: Yellow Socks Yellow Gown Door Sign Patient Fall Education Report given to addie joy
--- NOTE | 2020-06-29 19:12 | NUR ---
NURSE NOTES: Received report from MAX Arias. Pt observed to be asleep in bed, responsive to verbal and tactile stimuli. A/Ox3. PERRLA. On vent saturating 100% at prescribed settings of A/C 16, Vt 500 and 40% fiO2. Made aware of Dr. Garcia orders to keep fiO2 40% and below. 5-lead EKG shows SR at 67 bpm. Vitals WNL. Afebrile. Pt observed with Right IJ and right AC #20 S.L. Cabrera and rectal tube draining well to gravity. Hematuria noted in drainage bag of cabrera. Observed on bilateral soft wrist restraints for multiple attempts to remove medical devices. Bed kept in lowest and locked position. Bed alarm on. Side rails up x3. Will monitor.
[2020-06-29] MEDS: Dyna-Hex 2% Top Sol 2oz TOPIC SCH (20:28)
--- NOTE | 2020-06-29 21:00 | NUR ---
NURSE NOTES: Left message for Dr. Stringer in regards to positive OBS result today and elevated AST/ALT. No new orders endorsed. Will monitor.
[2020-06-30] VITALS (13 sets, daily range): BP systolic 118–144; BP diastolic 71–86
[2020-06-30] MEDS: Aluminum Hydroxide Gel Susp 15ml GT SCH ×4 (04:47→21:01)
[2020-06-30] MEDS: NovoLOG Insulin Flexpen SUBQ SCH ×4 (05:04→18:52)
[2020-06-30 06:22] LABS: MEAN CORPUSCULAR VOLUME 94 FL (80-99); PLATELET COUNT 82 K/UL (150-450); RED BLOOD COUNT 2.33 M/UL (4.70-6.10); RED CELL DISTRIBUTION WIDTH 15.5 % (11.6-14.8); WHITE BLOOD COUNT 14.2 K/UL (4.8-10.8)
--- NOTE | 2020-06-30 06:24 | NUR ---
NURSE NOTES: Dr. Stringer ordered to change feeding from Nepro to Vital AF at 50 mL for continued diarrhea and negative c.diff. D/w ITZ lane. Will monitor potassium.
--- NOTE | 2020-06-30 06:30 | General Progress Note ---
Subjective ROS Limited/Unobtainable: Yes Allergies: Coded Allergies: No Known Allergies (Unverified , 06/13/20) Subjective events noted interval notes reviewed glucose values are stable Item Value Date Time Bedside Blood Glucose 136 mg/dl H 06/30/20 0534 Bedside Blood Glucose 135 mg/dl H 06/30/20 0000 Bedside Blood Glucose 148 mg/dl H 06/29/20 1813 Bedside Blood Glucose 137 mg/dl H 06/29/20 1200 Bedside Blood Glucose 133 mg/dl H 06/29/20 0600 Bedside Blood Glucose 118 mg/dl 06/29/20 0000 Objective Last 24 Hour Vital Signs Date Time Temp Pulse Resp B/P (MAP) Pulse Ox O2 Delivery O2 Flow Rate FiO2 06/30/20 04:00 Mechanical Ventilator 06/30/20 04:00 97.4 70 26 132/72 (92) 97 06/30/20 03:49 40 06/30/20 03:37 69 21 40 06/30/20 03:36 69 06/30/20 00:10 68 06/30/20 00:00 40 06/30/20 00:00 Mechanical Ventilator 06/29/20 23:46 97.9 69 21 129/74 (92) 97 06/29/20 22:48 68 16 40 06/29/20 20:00 67 06/29/20 20:00 97.6 67 15 138/78 (98) 96 06/29/20 20:00 Mechanical Ventilator 06/29/20 20:00 40 06/29/20 19:10 65 21 40 06/29/20 16:00 95.5 96 21 119/78 (92) 96 06/29/20 16:00 40 06/29/20 16:00 Mechanical Ventilator 06/29/20 16:00 Mechanical Ventilator 06/29/20 16:00 66 06/29/20 15:12 64 21 40 06/29/20 12:26 68 06/29/20 12:00 40 06/29/20 12:00 95.7 66 23 124/77 (93) 97 06/29/20 12:00 Mechanical Ventilator 06/29/20 10:48 66 17 40 06/29/20 09:00 71 06/29/20 08:00 Mechanical Ventilator 06/29/20 08:00 96.3 71 21 143/77 (99) 97 06/29/20 08:00 40 06/29/20 07:04 79 29 40 Intake and Output 06/29/20 06/30/20 19:00 07:00 Intake Total 580 ml 360 ml Output Total 250 ml Balance 330 ml 360 ml Free Water 100 ml Tube Feeding 480 ml 360 ml Output Urine Total 0 ml Stool Total 250 ml Laboratory Tests 06/29/20 11:12: POC Whole Blood Glucose 136H 06/29/20 11:24: POC Whole Blood Glucose 137H 06/29/20 15:45: Random Vancomycin Level 20.2 06/29/20 18:10: POC Whole Blood Glucose 148H 06/29/20 23:56: POC Whole Blood Glucose 134H 06/30/20 04:57: POC Whole Blood Glucose 136H 06/30/20 05:50: White Blood Count [Pending], Red Blood Count [Pending], Hemoglobin [Pending], H ematocrit [Pending], Mean Corpuscular Volume [Pending], Mean Corpuscular Hemoglobin [Pending], Mean Corpuscular Hemoglobin Concent [Pending], Red Cell Distribution Width [Pending], Platelet Count [Pending], Mean Platelet Volume [Pending], Neutrophils (%) (Auto) [Pending], Lymphocytes (%) (Auto) [Pending], Monocytes (%) (Auto) [Pending], Eosinophils (%) (Auto) [Pending], Basophils (%) (Auto) [Pending], Sodium Level [Pending], Potassium Level [Pending], Chloride Level [Pending], Carbon Dioxide Level [Pending], Blood Urea Nitrogen [Pending], Creatinine [Pending], Estimat Glomerular Filtration Rate [Pending], Glucose Level [Pending], Calcium Level [Pending], Total Bilirubin [Pending], Aspartate Amino Transf (AST/SGOT) [Pending], Alanine Aminotransferase (ALT/SGPT) [Pending], Alkaline Phosphatase [Pending], Total Creatine Kinase [Pending], Total Protein [Pending], Albumin [Pending], Globulin [Pending] Height (Feet): 5 Height (Inches): 8.00 Weight (Pounds): 143 General Appearance: no apparent distress Respiratory/Chest: decreased breath sounds Abdomen: normal bowel sounds Pelvis: normal external exam Objective Current Medications Medications (Trade) Dose Ordered Sig/Maryjane Route PRN Reason Start Time Stop Time Status Last Admin Dose Admin Acetaminophen (Tylenol) 650 mg Q4H PRN GT Mild Pain (Pain Scale 1-3) 06/18/20 23:00 07/18/20 22:59 Acetaminophen (Tylenol) 650 mg Q4HR PRN GT FEVER 06/14/20 09:45 07/14/20 09:44 06/19/20 20:45 Aluminum Hydroxide (Amphojel) 1,920 mg Q6H GT 06/17/20 10:00 07/17/20 09:59 06/30/20 04:47 Ascorbic Acid (Vitamin C) 500 mg DAILY ORAL 06/16/20 09:00 07/16/20 08:59 06/29/20 08:32 Chlorhexidine Gluconate (Inés-Hex 2%) 1 applic DAILY@1999 TOPIC 06/21/20 20:00 09/19/20 19:59 06/29/20 20:28 Dextrose (Dextrose 50%) 25 ml Q30M PRN IV Hypoglycemia 06/28/20 18:30 09/26/20 18:29 Dextrose (Dextrose 50%) 50 ml Q30M PRN IV Hypoglycemia 06/28/20 18:30 09/26/20 18:29 Epoetin Bonilla (Epoetin Bonilla-EPBX(NON ESRD)) 10,000 unit TUE-TUE-TUE SUBQ 06/18/20 21:00 09/16/20 20:59 06/27/20 21:04 Haloperidol Lactate (Haldol) 5 mg Q6H PRN IM Agitation 06/21/20 23:15 08/05/20 23:14 06/25/20 18:17 Insulin Aspart (NovoLOG) EVERY 6 HOURS SUBQ 06/29/20 00:00 09/27/20 00:00 06/29/20 18:13 Lansoprazole (Prevacid) 30 mg BID ORAL 06/27/20 18:00 07/27/20 17:59 06/29/20 18:13 Levothyroxine Sodium (Synthroid) 50 mcg DAILY@0630 ORAL 06/25/20 06:30 07/25/20 06:29 06/30/20 06:02 Vancomycin HCl (Vanco pharmacy to dose) 1 ea DAILY PRN MISC Per rx protocol 06/27/20 11:30 07/18/20 23:59 Assessment/Plan Problem List: (1) History of left below knee amputation ICD Codes: Z89.512 - Acquired absence of left leg below knee SNOMED: 717536445, 021939853525011 (2) Surgical wound dehiscence ICD Codes: T81.31XA - Disruption of external operation (surgical) wound, not elsewhere classified, initial encounter SNOMED: 65323204 (3) Hyperkalemia ICD Codes: E87.5 - Hyperkalemia SNOMED: 21376276 (4) Acute respiratory failure ICD Codes: J96.00 - Acute respiratory failure, unspecified whether with hypoxia or hypercapnia SNOMED: 65375928 Qualifiers: Qualified Codes: J96.02 - Acute respiratory failure with hypercapnia (5) Hypothyroidism ICD Codes: E03.9 - Hypothyroidism, unspecified SNOMED: 69144968 (6) Hyperglycemia ICD Codes: R73.9 - Hyperglycemia, unspecified SNOMED: 12477887 Status: progressing Assessment/Plan: continue levothyroxine 50 mcg daily repeat thyroid function in 1-2 weeks continue glucose monitoring Davy Ramos MD Jun 30, 2020 06:30
[2020-06-30 06:47] LABS: ALANINE AMINOTRANSFERASE 344 U/L (12-78); ALBUMIN 1.5 G/DL (3.4-5.0); ALBUMIN/GLOBULIN RATIO 0.3 (1.0-2.7); ALKALINE PHOSPHATASE 633 U/L (46-116); ANION GAP 4 mmol/L (5-15); ASPARTATE AMINO TRANSFERASE 343 U/L (15-37); BILIRUBIN,TOTAL 0.4 MG/DL (0.2-1.0); BLOOD UREA NITROGEN 83 mg/dL (7-18); CALCIUM 8.5 MG/DL (8.5-10.1); CARBON DIOXIDE 31 MMOL/L (21-32); CHLORIDE 100 MMOL/L (98-107); CREATINE KINASE 27 U/L (26-308); CREATININE 4.6 MG/DL (0.55-1.30); POTASSIUM 4.1 MMOL/L (3.5-5.1); SODIUM 135 MMOL/L (136-145)
--- NOTE | 2020-06-30 06:47 | NUR ---
NURSE HAND-OFF REPORT: Important Events on Shift: No urine outpit; scheduled for HD today Patient Status: Stable Diet: Changed from NEPRO to VITAL AF Pending Orders: Pending Results/Labs: Pending MD notification: Latest Vital Signs: Temperature 97.4 , Pulse 70 , B/P 132 /72 , Respiratory Rate 26 , O2 SAT 97 , Mechanical Ventilator, O2 Flow Rate 15.0 . Vital Sign Comment: WNL EKG Rhythm: Sinus Rhythm Rhythm change?: N Notified?: N -Dr. Ruel BENDER Response: No New Orders Received Latest Santiago Fall Score: 60 Fall Risk: High Risk Safety Measures: Call light Within Reach, Bed Alarm Zone 2, Side Rails Side Rails x3, Bed position Low and Locked. Fall Precautions: Yellow Socks Yellow Gown Door Sign Patient Fall Education Report given to MAX Greer.
--- NOTE | 2020-06-30 06:49 | Hematology/Onc Progress Note ---
Assessment/Plan Assessment/Plan ASSESSMENT AND PLAN: #. Anemia that is likely due to chronic disease, r/o gi bleeding --> anemia panel has been reviewed, ferritin is >2000 --> no e/o hemolysis is noted --> transfuse on prn basis --> blood consent has been signed --> hgb 7.4-->7.4-->7-->6.7-->8-->7.5-->8.4-->9.1->8.1-->5.6->7.4-->7 --> folic acid is wnl --> 1 unit prbc 06/18 --> epogen has been started # Acute DVT in the distal right common femoral vein and profunda femoris vein. --> DUPLEX. Acute DVT in the distal right common femoral vein and profunda femoris vein. 2. No evidence of left lower extremity DVT. --> cannot anticoagulate at this time --> 06/17 s/p ivc filter placement --> hold off anticoag # Leukocytosis is likely due to b/l infiltrates --> on abx as per id -> ABX yolis/vanc-->yolis/linezolid--> yolis/levaq-->linezolid->vanc --> continue trend --> wbc 15-->12->9.5-->13-->14 # Thrombocytopenia likely due to infection --> plt 82 # Respiratory failure in this patient with vent-dependent respiratory failure. 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 # Dysphagia --> status post PEG placement. # Renal failure. -> per Dr. Honeycutt. # Hyperkalemia and kayxelate as needed. # Dvt ppx scds Appreciate consultation and angela RN Subjective Constitutional: Denies: no symptoms, chills, fever, malaise, weakness, other HEENT: Denies: no symptoms, eye pain, blurred vision, tearing, double vision, ear pain, ear discharge, nose pain, nose congestion, throat pain, throat swelling, mouth pain, mouth swelling, other Cardiovascular: Denies: no symptoms, chest pain, edema, irregular heart rate, lightheadedness, palpitations, syncope, other Respiratory: Denies: no symptoms, cough, shortness of breath, SOB with excerti on, SOB at rest, sputum, wheezing, other Gastrointestinal/Abdominal: Denies: no symptoms, abdomen distended, abdominal pain, black stools, tarry stools, blood in stool, constipated, diarrhea, difficulty swallowing, nausea, poor appetite, poor fluid intake, rectal bleeding, vomiting, other Genitourinary: Denies: no symptoms, burning, discharge, frequency, flank pain, hematuria, incontinence, pain, urgency, other Neurologic/Psychiatric: Denies: no symptoms, anxiety, depressed, emotional problems, headache, numbness, paresthesia, pre-existing deficit, seizure, tingling, tremors, weakness, other Endocrine: Denies: no symptoms, excessive sweating, flushing, intolerance to cold, intolerance to heat, increased hunger, increased thirst, increased urine, unexplained weight gain, unexplained weight loss, other Allergies: Coded Allergies: No Known Allergies (Unverified , 06/13/20) Subjective 06/16 meds noted, labs reviewed, vent to trach, for ivc filter potentially 06/17 labs noted, meds reviewed, for ivc filter once covid neg 06/18 labs are noted, on vent and gt, 1 unit prbc ordered 06/19 labs pending, is s/p ivcf placement yesterday 06/20 for hd nontunneled cathter placement, no bleeding 06/22 labs noted, no bleeding, found down overnight, got ct brain, is neg 06/23 overnight is agitated and requiring restraints 06/24 labs noted, meds reviewed, hgb pending for am, restraints 06/25 labs reviewed, meds noted, no bleeding, hgb improved 06/26 per Rn, with rapid response overnight hr is improved, meds noted 06/27 labs reviewed, meds noted, no bleeding, hgb 5.6, wbc elevated, to get 2 unit prbc 06/29 on vanc, wbc 13, hgb 7.3, plt 88, on vanc 06/30 meds reviewed, hgb at 7, occult +, as per gi care, with diarrhea Objective Objective Current Medications Medications (Trade) Dose Ordered Sig/Maryjane Route PRN Reason Start Time Stop Time Status Last Admin Dose Admin Acetaminophen (Tylenol) 650 mg Q4H PRN GT Mild Pain (Pain Scale 1-3) 06/18/20 23:00 07/18/20 22:59 Acetaminophen (Tylenol) 650 mg Q4HR PRN GT FEVER 06/14/20 09:45 07/14/20 09:44 06/19/20 20:45 Aluminum Hydroxide (Amphojel) 1,920 mg Q6H GT 06/17/20 10:00 07/17/20 09:59 06/30/20 04:47 Ascorbic Acid (Vitamin C) 500 mg DAILY ORAL 06/16/20 09:00 07/16/20 08:59 06/29/20 08:32 Chlorhexidine Gluconate (Inés-Hex 2%) 1 applic DAILY@1999 TOPIC 06/21/20 20:00 09/19/20 19:59 06/29/20 20:28 Dextrose (Dextrose 50%) 25 ml Q30M PRN IV Hypoglycemia 06/28/20 18:30 09/26/20 18:29 Dextrose (Dextrose 50%) 50 ml Q30M PRN IV Hypoglycemia 06/28/20 18:30 09/26/20 18:29 Epoetin Bonilla (Epoetin Bonilla-EPBX(NON ESRD)) 10,000 unit TUE-TUE-TUE SUBQ 06/18/20 21:00 09/16/20 20:59 06/27/20 21:04 Haloperidol Lactate (Haldol) 5 mg Q6H PRN IM Agitation 06/21/20 23:15 08/05/20 23:14 06/25/20 18:17 Insulin Aspart (NovoLOG) EVERY 6 HOURS SUBQ 06/29/20 00:00 09/27/20 00:00 06/29/20 18:13 Lansoprazole (Prevacid) 30 mg BID ORAL 06/27/20 18:00 07/27/20 17:59 06/29/20 18:13 Levothyroxine Sodium (Synthroid) 50 mcg DAILY@0630 ORAL 06/25/20 06:30 07/25/20 06:29 06/30/20 06:02 Vancomycin HCl (Vanco pharmacy to dose) 1 ea DAILY PRN MISC Per rx protocol 06/27/20 11:30 07/18/20 23:59 Last 24 Hour Vital Signs Date Time Temp Pulse Resp B/P (MAP) Pulse Ox O2 Delivery O2 Flow Rate FiO2 06/30/20 04:00 Mechanical Ventilator 06/30/20 04:00 97.4 70 26 132/72 (92) 97 06/30/20 03:49 40 06/30/20 03:37 69 21 40 06/30/20 03:36 69 06/30/20 00:10 68 06/30/20 00:00 40 06/30/20 00:00 Mechanical Ventilator 06/29/20 23:46 97.9 69 21 129/74 (92) 97 06/29/20 22:48 68 16 40 06/29/20 20:00 67 06/29/20 20:00 97.6 67 15 138/78 (98) 96 06/29/20 20:00 Mechanical Ventilator 06/29/20 20:00 40 06/29/20 19:10 65 21 40 06/29/20 16:00 95.5 96 21 119/78 (92) 96 06/29/20 16:00 40 06/29/20 16:00 Mechanical Ventilator 06/29/20 16:00 Mechanical Ventilator 06/29/20 16:00 66 06/29/20 15:12 64 21 40 06/29/20 12:26 68 06/29/20 12:00 40 06/29/20 12:00 95.7 66 23 124/77 (93) 97 06/29/20 12:00 Mechanical Ventilator 06/29/20 10:48 66 17 40 06/29/20 09:00 71 06/29/20 08:00 Mechanical Ventilator 06/29/20 08:00 96.3 71 21 143/77 (99) 97 06/29/20 08:00 40 06/29/20 07:04 79 29 40 06/29/20 04:00 71 06/29/20 04:00 40 06/29/20 04:00 95.7 78 27 140/80 (100) 95 06/29/20 04:00 Mechanical Ventilator 06/29/20 03:10 77 28 40 06/29/20 00:10 65 26 97 Mechanical Ventilator 40 06/29/20 00:00 73 06/29/20 00:00 96.1 73 29 136/81 (99) 95 06/29/20 00:00 Mechanical Ventilator 06/29/20 00:00 40 06/28/20 22:48 79 26 40 06/28/20 20:00 95.4 73 27 139/83 (101) 95 06/28/20 20:00 40 06/28/20 20:00 72 06/28/20 20:00 Mechanical Ventilator 06/28/20 18:55 74 25 40 06/28/20 16:00 Mechanical Ventilator 06/28/20 16:00 97.5 72 24 126/74 (91) 95 06/28/20 16:00 75 06/28/20 16:00 40 06/28/20 15:10 78 23 40 06/28/20 12:00 81 06/28/20 12:00 40 06/28/20 12:00 Mechanical Ventilator 06/28/20 12:00 96.6 85 26 124/75 (91) 99 06/28/20 11:04 85 06/28/20 11:00 81 25 40 06/28/20 08:00 97.9 82 22 121/69 (86) 99 06/28/20 08:00 Mechanical Ventilator 06/28/20 08:00 40 06/28/20 07:00 84 25 40 Intake and Output 06/29/20 06/30/20 19:00 07:00 Intake Total 580 ml 360 ml Output Total 250 ml 200 ml Balance 330 ml 160 ml Free Water 100 ml Tube Feeding 480 ml 360 ml Output Urine Total 0 ml Stool Total 250 ml 200 ml Labs Test 06/27/20 13:38 06/28/20 00:01 06/28/20 02:50 06/28/20 06:26 POC Whole Blood Glucose 153 MG/DL (74-106) White Blood Count 12.0 K/UL (4.8-10.8) Red Blood Count 2.06 M/UL (4.70-6.10) Hemoglobin 6.3 G/DL (14.2-18.0) Hematocrit 19.6 % (42.0-52.0) Mean Corpuscular Volume 95 FL (80-99) Mean Corpuscular Hemoglobin 30.6 PG (27.0-31.0) Mean Corpuscular Hemoglobin Concent 32.1 G/DL (32.0-36.0) Red Cell Distribution Width 15.1 % (11.6-14.8) Platelet Count 99 K/UL (150-450) Mean Platelet Volume 11.7 FL (6.5-10.1) Neutrophils (%) (Auto) % (45.0-75.0) Lymphocytes (%) (Auto) % (20.0-45.0) Monocytes (%) (Auto) % (1.0-10.0) Eosinophils (%) (Auto) % (0.0-3.0) Basophils (%) (Auto) % (0.0-2.0) Differential Total Cells Counted 100 Neutrophils % (Manual) 83 % (45-75) Lymphocytes % (Manual) 8 % (20-45) Monocytes % (Manual) 3 % (1-10) Eosinophils % (Manual) 2 % (0-3) Basophils % (Manual) 0 % (0-2) Band Neutrophils 4 % (0-8) Nucleated Red Blood Cells 1 /100 WBC Platelet Estimate Decreased Platelet Morphology Normal Hypochromasia 2+ Anisocytosis 1+ Sodium Level 135 MMOL/L (136-145) Potassium Level 4.2 MMOL/L (3.5-5.1) Chloride Level 102 MMOL/L (98-107) Carbon Dioxide Level 32 MMOL/L (21-32) Anion Gap 1 mmol/L (5-15) Blood Urea Nitrogen 58 mg/dL (7-18) Creatinine 3.8 MG/DL (0.55-1.30) Estimat Glomerular Filtration Rate 20.2 mL/min (>60) Glucose Level 148 MG/DL (74-106) Hemoglobin A1c 7.8 % (4.3-6.0) Calcium Level 8.6 MG/DL (8.5-10.1) Phosphorus Level 3.1 MG/DL (2.5-4.9) Magnesium Level 2.6 MG/DL (1.8-2.4) Total Bilirubin 0.4 MG/DL (0.2-1.0) Aspartate Amino Transf (AST/SGOT) 796 U/L (15-37) Alanine Aminotransferase (ALT/SGPT) 510 U/L (12-78) Alkaline Phosphatase 650 U/L (46-116) Total Protein 6.4 G/DL (6.4-8.2) Albumin 1.5 G/DL (3.4-5.0) Globulin 4.9 g/dL Albumin/Globulin Ratio 0.3 (1.0-2.7) Test 06/28/20 13:13 06/28/20 16:00 06/28/20 18:08 06/29/20 00:26 POC Whole Blood Glucose 100 MG/DL (74-106) 108 MG/DL (74-106) 118 MG/DL (74-106) Stool Occult Blood Positive (NEGATIVE) Test 06/29/20 06:08 06/29/20 11:12 06/29/20 11:24 06/29/20 15:45 White Blood Count 13.5 K/UL (4.8-10.8) Red Blood Count 2.43 M/UL (4.70-6.10) Hemoglobin 7.4 G/DL (14.2-18.0) Hematocrit 23.0 % (42.0-52.0) Mean Corpuscular Volume 95 FL (80-99) Mean Corpuscular Hemoglobin 30.4 PG (27.0-31.0) Mean Corpuscular Hemoglobin Concent 32.1 G/DL (32.0-36.0) Red Cell Distribution Width 15.3 % (11.6-14.8) Platelet Count 88 K/UL (150-450) Mean Platelet Volume 10.6 FL (6.5-10.1) Neutrophils (%) (Auto) % (45.0-75.0) Lymphocytes (%) (Auto) % (20.0-45.0) Monocytes (%) (Auto) % (1.0-10.0) Eosinophils (%) (Auto) % (0.0-3.0) Basophils (%) (Auto) % (0.0-2.0) Differential Total Cells Counted 100 Neutrophils % (Manual) 81 % (45-75) Lymphocytes % (Manual) 5 % (20-45) Monocytes % (Manual) 4 % (1-10) Eosinophils % (Manual) 5 % (0-3) Basophils % (Manual) 0 % (0-2) Band Neutrophils 5 % (0-8) Nucleated Red Blood Cells 1 /100 WBC Platelet Estimate Decreased Platelet Morphology Normal Hypochromasia 1+ Anisocytosis 1+ Sodium Level 134 MMOL/L (136-145) Potassium Level 4.1 MMOL/L (3.5-5.1) Chloride Level 100 MMOL/L (98-107) Carbon Dioxide Level 30 MMOL/L (21-32) Anion Gap 4 mmol/L (5-15) Blood Urea Nitrogen 72 mg/dL (7-18) Creatinine 4.2 MG/DL (0.55-1.30) Estimat Glomerular Filtration Rate 18.1 mL/min (>60) Glucose Level 152 MG/DL (74-106) Calcium Level 8.4 MG/DL (8.5-10.1) Phosphorus Level 3.1 MG/DL (2.5-4.9) Magnesium Level 2.8 MG/DL (1.8-2.4) Total Bilirubin 0.4 MG/DL (0.2-1.0) Aspartate Amino Transf (AST/SGOT) 375 U/L (15-37) Alanine Aminotransferase (ALT/SGPT) 383 U/L (12-78) Alkaline Phosphatase 632 U/L (46-116) Total Protein 6.7 G/DL (6.4-8.2) Albumin 1.5 G/DL (3.4-5.0) Globulin 5.2 g/dL Albumin/Globulin Ratio 0.3 (1.0-2.7) POC Whole Blood Glucose 136 MG/DL (74-106) 137 MG/DL (74-106) Random Vancomycin Level 20.2 ug/mL Test 06/29/20 18:10 06/29/20 23:56 06/30/20 04:57 06/30/20 05:50 POC Whole Blood Glucose 148 MG/DL (74-106) 134 MG/DL (74-106) 136 MG/DL (74-106) White Blood Count 14.2 K/UL (4.8-10.8) Red Blood Count 2.33 M/UL (4.70-6.10) Hemoglobin 7.0 G/DL (14.2-18.0) Hematocrit 22.0 % (42.0-52.0) Mean Corpuscular Volume 94 FL (80-99) Mean Corpuscular Hemoglobin 30.3 PG (27.0-31.0) Mean Corpuscular Hemoglobin Concent 32.1 G/DL (32.0-36.0) Red Cell Distribution Width 15.5 % (11.6-14.8) Platelet Count 82 K/UL (150-450) Mean Platelet Volume 10.2 FL (6.5-10.1) Neutrophils (%) (Auto) % (45.0-75.0) Lymphocytes (%) (Auto) % (20.0-45.0) Monocytes (%) (Auto) % (1.0-10.0) Eosinophils (%) (Auto) % (0.0-3.0) Basophils (%) (Auto) % (0.0-2.0) Height (Feet): 5 Height (Inches): 8.00 Weight (Pounds): 143 Objective PHYSICAL EXAMINATION: VITAL SIGNS: reviewed HEAD AND NECK: Show status post tracheostomy. vent+ LUNGS: Coarse rhonchi and basilar rales. CARDIOVASCULAR: Shows irregular S1 and S2 with no gallop. ABDOMEN: Soft. Status post G-tube. EXTREMITIES: No pitting edema.++Left Jose Epperson MD Jun 30, 2020 06:49
--- NOTE | 2020-06-30 07:00 | Consultation ---
DATE OF CONSULTATION: 06/28/2020 ENDOCRINOLOGY CONSULTATION CONSULTING PHYSICIAN: Kilo Davidson MD REFERRING PHYSICIAN: Neida Apple MD REASON FOR CONSULTATION: I was asked to see this 54-year-old black male type 2 diabetes mellitus, multiple complications including below-knee amputation and and requires continuous . FAMILY HISTORY: Unable to be determined. PERSONAL HISTORY: Unable to be determined. REVIEW OF SYSTEMS: Unable to be determined. PHYSICAL EXAMINATION: GENERAL: The patient is in moderate distress . VITAL SIGNS: Blood pressure 136/74, pulse 72, respiratory rate 18, temperature 98. HEAD AND NECK: Tracheostomy . LUNGS: Clear. HEART: Heart sounds distant. . EXTREMITIES: Left below-knee amputation. NEUROLOGIC: . LABORATORY DATA: Sodium 135, potassium , BUN 15, creatinine 3.8, glucose 128 . ASSESSMENT: 15 mg p.o. q.a.m. glucose levels sliding scale coverage . Kilo Davidson M.D. DR: Pal JOB#: [id number] CC:
--- NOTE | 2020-06-30 07:18 | NUR ---
NURSE NOTES Patient received awake. Responds to commands using hand gestures and facial expression. Trach to vent dependent, showing no signs of distress. FC intact and draining, on GT feeds, rectal tube noted. Contact isolation observed. Will continue plan of care
[2020-06-30] MEDS ORDERED: Ascorbic Acid 500mg tab GT SCH (09:00)
--- NOTE | 2020-06-30 09:13 | NUR ---
Social Work This SW spoke with sister, Stephy Cedeño @ [phone] who expressed concerns regarding completing the AD with patient. This SW explained to sister regarding patient needs to be alert/oriented an comprehend what he is signing, along with will require two witness' non-family, non-hospital staff or a notary to witness his signature. Sister plans to complete AD with patient this afternoon. SW to follow, as needed.
--- NOTE | 2020-06-30 09:56 | Cardiac Electrophysiology PN ---
Assessment/Plan Assessment/Plan 1. Vent-dependent respirator failure. S/P tracheostomy. On 40% Fio2 Chest x-ray extensive bilateral pneumonia or ARDS. Off isolation EF 50%. Ruled out for [place]. BNP 05449. On iv Abx 2. Sinus Tachycardia, likely due to respiratory failure and sepsis 3. Right femoral vein DVT. S/P IVC filter 06/18 4. Dysphagia, status post PEG placement. 5. Renal failure. S/P Right IJ Iron and on HD by Dr. Honeycutt. 6. Severe anemia, S/P multiple PRBCs for hematuria 7. High LFTs, s/p CT abdomen and pelvis and HIDA FU Dr Stringer 8. Transient bradycardia, resolved DW RN Subjective Subjective On the Vent off isolation. On 40% Fio2 and PEEP 5. S/P IVC filter S/P Right IJ Iron and first HD 06/21/20 Had WATCH CASER as HR dropped to 30 at 4 am 06/25/20 Got PRBC 06/27 and 06/28 as Hb dropped to 5.6 kristenley due to hematuria as was pul ling on the [facility] eyes in restraints in NAD HD pending today Objective Last 24 Hour Vital Signs Date Time Temp Pulse Resp B/P (MAP) Pulse Ox O2 Delivery O2 Flow Rate FiO2 06/30/20 08:00 95.6 64 26 129/77 (94) 97 06/30/20 07:42 66 06/30/20 07:20 65 19 40 06/30/20 04:00 Mechanical Ventilator 06/30/20 04:00 97.4 70 26 132/72 (92) 97 06/30/20 03:49 40 06/30/20 03:37 69 21 40 06/30/20 03:36 69 06/30/20 00:10 68 06/30/20 00:00 40 06/30/20 00:00 Mechanical Ventilator 06/29/20 23:46 97.9 69 21 129/74 (92) 97 06/29/20 22:48 68 16 40 06/29/20 20:00 67 06/29/20 20:00 97.6 67 15 138/78 (98) 96 06/29/20 20:00 Mechanical Ventilator 06/29/20 20:00 40 06/29/20 19:10 65 21 40 06/29/20 16:00 95.5 96 21 119/78 (92) 96 06/29/20 16:00 40 06/29/20 16:00 Mechanical Ventilator 06/29/20 16:00 Mechanical Ventilator 06/29/20 16:00 66 06/29/20 15:12 64 21 40 06/29/20 12:26 68 06/29/20 12:00 40 06/29/20 12:00 95.7 66 23 124/77 (93) 97 06/29/20 12:00 Mechanical Ventilator 06/29/20 10:48 66 17 40 Intake and Output 06/29/20 06/30/20 19:00 07:00 Intake Total 580 ml 360 ml Output Total 250 ml 200 ml Balance 330 ml 160 ml Free Water 100 ml Tube Feeding 480 ml 360 ml Output Urine Total 0 ml Stool Total 250 ml 200 ml Laboratory Tests Test 06/29/20 11:12 06/29/20 11:24 06/29/20 15:45 06/29/20 18:10 POC Whole Blood Glucose 136 MG/DL (74-106) H 137 MG/DL (74-106) H 148 MG/DL (74-106) H Random Vancomycin Level 20.2 ug/mL Test 06/29/20 23:56 06/30/20 04:57 06/30/20 05:50 POC Whole Blood Glucose 134 MG/DL (74-106) H 136 MG/DL (74-106) H White Blood Count 14.2 K/UL (4.8-10.8) H Red Blood Count 2.33 M/UL (4.70-6.10) L Hemoglobin 7.0 G/DL (14.2-18.0) L Hematocrit 22.0 % (42.0-52.0) L Mean Corpuscular Volume 94 FL (80-99) Mean Corpuscular Hemoglobin 30.3 PG (27.0-31.0) Mean Corpuscular Hemoglobin Concent 32.1 G/DL (32.0-36.0) Red Cell Distribution Width 15.5 % (11.6-14.8) H Platelet Count 82 K/UL (150-450) L Mean Platelet Volume 10.2 FL (6.5-10.1) H Neutrophils (%) (Auto) % (45.0-75.0) Lymphocytes (%) (Auto) % (20.0-45.0) Monocytes (%) (Auto) % (1.0-10.0) Eosinophils (%) (Auto) % (0.0-3.0) Basophils (%) (Auto) % (0.0-2.0) Differential Total Cells Counted 100 Neutrophils % (Manual) 77 % (45-75) H Lymphocytes % (Manual) 6 % (20-45) L Monocytes % (Manual) 4 % (1-10) Eosinophils % (Manual) 13 % (0-3) H Basophils % (Manual) 0 % (0-2) Band Neutrophils 0 % (0-8) Platelet Estimate Decreased L Platelet Morphology Giant Platelets Occasional Hypochromasia 1+ Anisocytosis 1+ Sodium Level 135 MMOL/L (136-145) L Potassium Level 4.1 MMOL/L (3.5-5.1) Chloride Level 100 MMOL/L (98-107) Carbon Dioxide Level 31 MMOL/L (21-32) Anion Gap 4 mmol/L (5-15) L Blood Urea Nitrogen 83 mg/dL (7-18) H Creatinine 4.6 MG/DL (0.55-1.30) H Estimat Glomerular Filtration Rate 16.2 mL/min (>60) Glucose Level 139 MG/DL (74-106) H Calcium Level 8.5 MG/DL (8.5-10.1) Total Bilirubin 0.4 MG/DL (0.2-1.0) Aspartate Amino Transf (AST/SGOT) 343 U/L (15-37) H Alanine Aminotransferase (ALT/SGPT) 344 U/L (12-78) H Alkaline Phosphatase 633 U/L (46-116) H Total Creatine Kinase 27 U/L (26-308) Total Protein 6.7 G/DL (6.4-8.2) Albumin 1.5 G/DL (3.4-5.0) L Globulin 5.2 g/dL Albumin/Globulin Ratio 0.3 (1.0-2.7) L Microbiology Date/Time Source Procedure Growth Status 06/27/20 10:17 Stool Clostridium difficile Toxin Assay - Final Complete Objective HEAD AND NECK: Status post tracheostomy. Right IJ Iron in place LUNGS: Coarse rhonchi and basilar rales. CARDIOVASCULAR: Irregular S1 and S2 with no gallop. ABDOMEN: Soft. Status post G-tube. EXTREMITIES: No pitting edema. Lance Mcguire MD Jun 30, 2020 09:56
--- NOTE | 2020-06-30 09:57 | NUR ---
NURSE NOTES: Dr. Honeycutt at bedside.
--- NOTE | 2020-06-30 10:13 | Pulmonology Progress Note ---
Subjective ROS Limited/Unobtainable: Yes Interval Events: FiO2 now 40%; Remains on vent. Constitutional: Denies: fever HEENT: Repors: no symptoms Respiratory: Reports: no symptoms Cardiovascular: Reports: no symptoms Gastrointestinal/Abdominal: Reports: no symptoms Genitourinary: Reports: no symptoms Allergies: Coded Allergies: No Known Allergies (Unverified , 06/13/20) Objective Last 24 Hour Vital Signs Date Time Temp Pulse Resp B/P (MAP) Pulse Ox O2 Delivery O2 Flow Rate FiO2 06/30/20 08:00 Mechanical Ventilator 06/30/20 08:00 95.6 64 26 129/77 (94) 97 06/30/20 08:00 40 06/30/20 07:42 66 06/30/20 07:20 65 19 40 06/30/20 04:00 Mechanical Ventilator 06/30/20 04:00 97.4 70 26 132/72 (92) 97 06/30/20 03:49 40 06/30/20 03:37 69 21 40 06/30/20 03:36 69 06/30/20 00:10 68 06/30/20 00:00 40 06/30/20 00:00 Mechanical Ventilator 06/29/20 23:46 97.9 69 21 129/74 (92) 97 06/29/20 22:48 68 16 40 06/29/20 20:00 67 06/29/20 20:00 97.6 67 15 138/78 (98) 96 06/29/20 20:00 Mechanical Ventilator 06/29/20 20:00 40 06/29/20 19:10 65 21 40 06/29/20 16:00 95.5 96 21 119/78 (92) 96 06/29/20 16:00 40 06/29/20 16:00 Mechanical Ventilator 06/29/20 16:00 Mechanical Ventilator 06/29/20 16:00 66 06/29/20 15:12 64 21 40 06/29/20 12:26 68 06/29/20 12:00 40 06/29/20 12:00 95.7 66 23 124/77 (93) 97 06/29/20 12:00 Mechanical Ventilator 06/29/20 10:48 66 17 40 Intake and Output 06/29/20 06/30/20 19:00 07:00 Intake Total 580 ml 360 ml Output Total 250 ml 200 ml Balance 330 ml 160 ml Free Water 100 ml Tube Feeding 480 ml 360 ml Output Urine Total 0 ml Stool Total 250 ml 200 ml General Appearance: no acute distress HEENT: status post trach Respiratory: chest wall non-tender, lungs clear Cardiovascular: normal peripheral pulses, normal rate Abdomen: normal bowel sounds Extremities: no cyanosis Microbiology Date/Time Source Procedure Growth Status 06/27/20 10:17 Stool Clostridium difficile Toxin Assay - Final Complete Laboratory Tests 06/29/20 11:12: POC Whole Blood Glucose 136H 06/29/20 11:24: POC Whole Blood Glucose 137H 06/29/20 15:45: Random Vancomycin Level 20.2 06/29/20 18:10: POC Whole Blood Glucose 148H 06/29/20 23:56: POC Whole Blood Glucose 134H 06/30/20 04:57: POC Whole Blood Glucose 136H 06/30/20 05:50: White Blood Count 14.2H, Red Blood Count 2.33L, Hemoglobin 7.0L, Hematocrit 22.0L, Mean Corpuscular Volume 94, Mean Corpuscular Hemoglobin 30.3, Mean Corpuscular Hemoglobin Concent 32.1, Red Cell Distribution Width 15.5H, Platelet Count 82L, Mean Platelet Volume 10.2H, Neutrophils (%) (Auto) , Lymphocytes (%) (Auto) , Monocytes (%) (Auto) , Eosinophils (%) (Auto) , Basophils (%) (Auto) , Differential Total Cells Counted 100, Neutrophils % (Manual) 77H, Lymphocytes % (Manual) 6L, Monocytes % (Manual) 4, Eosinophils % (Manual) 13H, Basophils % (Manual) 0, Band Neutrophils 0, Platelet Estimate DecreasedL, Platelet Morphology , Giant Platelets Occasional, Hypochromasia 1+, Anisocytosis 1+, Sodium Level 135L, Potassium Level 4.1, Chloride Level 100, Carbon Dioxide Level 31, Anion Gap 4L, Blood Urea Nitrogen 83H, Creatinine 4.6H, Estimat Glomerular Filtration Rate 16.2, Glucose Level 139H, Calcium Level 8.5, Total Bilirubin 0.4, Aspartate Amino Transf (AST/SGOT) 343H, Alanine Aminotransferase (ALT/SGPT) 344H, Alkaline Phosphatase 633H, Total Creatine Kinase 27, Total Protein 6.7, Albumin 1.5L, Globulin 5.2, Albumin/Globulin Ratio 0.3L Current Medications Medications (Trade) Dose Ordered Sig/Maryjane Route PRN Reason Start Time Stop Time Status Last Admin Dose Admin Acetaminophen (Tylenol) 650 mg Q4H PRN GT Mild Pain (Pain Scale 1-3) 06/18/20 23:00 07/18/20 22:59 Acetaminophen (Tylenol) 650 mg Q4HR PRN GT FEVER 06/14/20 09:45 07/14/20 09:44 06/19/20 20:45 Aluminum Hydroxide (Amphojel) 1,920 mg Q6H GT 06/17/20 10:00 07/17/20 09:59 06/30/20 04:47 Ascorbic Acid (Vitamin C) 500 mg DAILY GT 06/30/20 09:00 07/16/20 08:59 Chlorhexidine Gluconate (Inés-Hex 2%) 1 applic DAILY@1999 TOPIC 06/21/20 20:00 09/19/20 19:59 06/29/20 20:28 Dextrose (Dextrose 50%) 25 ml Q30M PRN IV Hypoglycemia 06/28/20 18:30 09/26/20 18:29 Dextrose (Dextrose 50%) 50 ml Q30M PRN IV Hypoglycemia 06/28/20 18:30 09/26/20 18:29 Epoetin Bonilla (Epoetin Bonilla-EPBX(NON ESRD)) 10,000 unit TUE-TUE-TUE SUBQ 06/18/20 21:00 09/16/20 20:59 06/27/20 21:04 Haloperidol Lactate (Haldol) 5 mg Q6H PRN IM Agitation 06/21/20 23:15 08/05/20 23:14 06/25/20 18:17 Insulin Aspart (NovoLOG) EVERY 6 HOURS SUBQ 06/29/20 00:00 09/27/20 00:00 06/29/20 18:13 Lansoprazole (Prevacid) 30 mg Q12HR GT 06/30/20 09:00 07/27/20 17:59 Levothyroxine Sodium (Synthroid) 50 mcg DAILY@06 GT 07/01/20 06:30 07/25/20 06:29 Vancomycin HCl (Vanco pharmacy to dose) 1 ea DAILY PRN MISC Per rx protocol 06/27/20 11:30 07/18/20 23:59 Assessment/Plan Problems: (1) Acute respiratory failure Assessment/Plan IMPRESSION: 1. Chronic respiratory failure. 2. Hypoxemia. 3. Respiratory acidosis. 4. Anemia. 5. Leukocytosis. 6. DVT 7. S/p code blue 06/19/20 DISCUSSION: The patient's x-ray is markedly abnormal with bilateral infiltrates. I suspect he has pulmonary fibrosis. Latest CXR is unchanged; will repeat COVID 19 pcr and antigen both negative No anticoagulation for DVT due to anemia S/p IVC filter placement Continue assist-control mechanical ventilation; currently FiO2 40%; SaO2 100%, broad-spectrum antibiotics. Transfusion as needed. Will decrease PEEP to 5; S/p HD WIll decrease FiO2 as tolerated I will follow carefully. Hugo Carl Omar Syed MD Jun 30, 2020 10:13
--- NOTE | 2020-06-30 10:23 | NUR ---
NURSE NOTES: Dr. Stringer at bedside. Verified CMV PCR Qualitative Serum/CSF order since 06/24/2020. And he said to continue the order and to specify that it's a serum order and not CSF.
--- NOTE | 2020-06-30 10:49 | NUR ---
RD ASSESSMENT & RECOMMENDATIONS SEE CARE ACTIVITY FOR COMPLETE ASSESSMENT DAILY ESTIMATED NEEDS: Needs based on Wound, critical care, underweight/ 55.5kg 25-33 (25-35 w/ HD) kcals/kg 2765-1723 (6775-2474) total kcals 1.25-2 g protein/kg 69-111 g total protein 25-30 mL/kg 1845-4244 total fluid mLs NUTRITION DIAGNOSIS: * Swallowing difficulty R/T respiratory status as evidenced by pt is trach/vent dep, PEG dep. CURRENT TF: Nepro @ 40ml/hr x 22 hrs (On Synthroid) -> now VITAL @50 ENTERAL NUTRITION RECOMMENDATIONS: Nepro @ 45ml/hr x 22 hrs (On Synthroid) to provide 960ml, 1728kcal, 78g prot, 698ml free water * Pt now on Synthroid, TF to be held 1 hr before and after Synthroid * Increase goal rate to 45ml/hr to better meet est needs * HOB over 30 degrees/ water flush per MD TF changed to VITAL 1.2 per GI for OBS+. Rec goal of 55ml/hr x22 hrs to better meet est kcal needs, provides: 1210ml, 1452 kcal, 91g pro, 981ml free H2O -> Monitor lytes and need for renal formula. ADDITIONAL RECOMMENDATIONS: * Per SNF: HT=69" EH=255acf -> rec daily calibrated bedscale wt * Monitor lytes: elev K-> now wnl, phos wnl (HD pending today) * Wound healing: RANDY BID + Nephrovite 1 tab qdaily * Monitor lytes w/ Vital 1.2/ need for renal formula .
--- NOTE | 2020-06-30 10:59 | NUR ---
Social Work Sister present with patient at bedside, along with two witness' for AD. Patient informed this SW that he is requesting sisterStephy to be his POA for healthcare. Copy of AD placed on front of patients chart.
--- NOTE | 2020-06-30 11:50 | Infectious Diseases Prog Note ---
Assessment/Plan Assessment/Plan IMPRESSION: Pneumonia with Pseudomonas & Stenotrophomonas treated Hypothermia COVID19 X 2: negative Ventilator-dependent respiratory failure, Diabetes mellitus type 2, Hypertension, History of left BKA, Hypertension, anemia, Major depression, Pressure ulcer, Elevated transaminase, Hyperkalemia. Anemia R leg DVT s/p IVC filter Sacral osteomyelitis Severe anemia Acute renal failure ESRD Hypercapnic respiratory failure Hematuria Thrombocytopenia Diverticulosis Diarrhea, C. difficile negative RECOMMENDATION: Continue Vancomycin until 07/18 Subjective ROS Limited/Unobtainable: Yes Constitutional: Denies: fever Gastrointestinal/Abdominal: Reports: diarrhea Neurologic: Reports: confusion, other - on restraint Allergies: Coded Allergies: No Known Allergies (Unverified , 06/13/20) Objective Last 24 Hour Vital Signs Date Time Temp Pulse Resp B/P (MAP) Pulse Ox O2 Delivery O2 Flow Rate FiO2 06/30/20 08:00 Mechanical Ventilator 06/30/20 08:00 95.6 64 26 129/77 (94) 97 06/30/20 08:00 40 06/30/20 07:42 66 06/30/20 07:20 65 19 40 06/30/20 04:00 Mechanical Ventilator 06/30/20 04:00 97.4 70 26 132/72 (92) 97 06/30/20 03:49 40 06/30/20 03:37 69 21 40 06/30/20 03:36 69 06/30/20 00:10 68 06/30/20 00:00 40 06/30/20 00:00 Mechanical Ventilator 06/29/20 23:46 97.9 69 21 129/74 (92) 97 06/29/20 22:48 68 16 40 06/29/20 20:00 67 06/29/20 20:00 97.6 67 15 138/78 (98) 96 06/29/20 20:00 Mechanical Ventilator 06/29/20 20:00 40 06/29/20 19:10 65 21 40 06/29/20 16:00 95.5 96 21 119/78 (92) 96 06/29/20 16:00 40 06/29/20 16:00 Mechanical Ventilator 06/29/20 16:00 Mechanical Ventilator 06/29/20 16:00 66 06/29/20 15:12 64 21 40 06/29/20 12:26 68 06/29/20 12:00 40 06/29/20 12:00 95.7 66 23 124/77 (93) 97 06/29/20 12:00 Mechanical Ventilator Height (Feet): 5 Height (Inches): 8.00 Weight (Pounds): 143 HEENT: mucous membranes moist, status post trach Respiratory/Chest: other - on ventolator Cardiovascular: normal rate Abdomen: soft, non tender, other - GT & rectal tube Extremities: other - left BKA Skin: ulcers Neurologic/Psychiatric: other - sleeping Laboratory Tests Test 06/29/20 15:45 06/29/20 18:10 06/29/20 23:56 06/30/20 04:57 Random Vancomycin Level 20.2 ug/mL POC Whole Blood Glucose 148 MG/DL (74-106) H 134 MG/DL (74-106) H 136 MG/DL (74-106) H Test 06/30/20 05:50 White Blood Count 14.2 K/UL (4.8-10.8) H Red Blood Count 2.33 M/UL (4.70-6.10) L Hemoglobin 7.0 G/DL (14.2-18.0) L Hematocrit 22.0 % (42.0-52.0) L Mean Corpuscular Volume 94 FL (80-99) Mean Corpuscular Hemoglobin 30.3 PG (27.0-31.0) Mean Corpuscular Hemoglobin Concent 32.1 G/DL (32.0-36.0) Red Cell Distribution Width 15.5 % (11.6-14.8) H Platelet Count 82 K/UL (150-450) L Mean Platelet Volume 10.2 FL (6.5-10.1) H Neutrophils (%) (Auto) % (45.0-75.0) Lymphocytes (%) (Auto) % (20.0-45.0) Monocytes (%) (Auto) % (1.0-10.0) Eosinophils (%) (Auto) % (0.0-3.0) Basophils (%) (Auto) % (0.0-2.0) Differential Total Cells Counted 100 Neutrophils % (Manual) 77 % (45-75) H Lymphocytes % (Manual) 6 % (20-45) L Monocytes % (Manual) 4 % (1-10) Eosinophils % (Manual) 13 % (0-3) H Basophils % (Manual) 0 % (0-2) Band Neutrophils 0 % (0-8) Platelet Estimate Decreased L Platelet Morphology Giant Platelets Occasional Hypochromasia 1+ Anisocytosis 1+ Sodium Level 135 MMOL/L (136-145) L Potassium Level 4.1 MMOL/L (3.5-5.1) Chloride Level 100 MMOL/L (98-107) Carbon Dioxide Level 31 MMOL/L (21-32) Anion Gap 4 mmol/L (5-15) L Blood Urea Nitrogen 83 mg/dL (7-18) H Creatinine 4.6 MG/DL (0.55-1.30) H Estimat Glomerular Filtration Rate 16.2 mL/min (>60) Glucose Level 139 MG/DL (74-106) H Calcium Level 8.5 MG/DL (8.5-10.1) Total Bilirubin 0.4 MG/DL (0.2-1.0) Aspartate Amino Transf (AST/SGOT) 343 U/L (15-37) H Alanine Aminotransferase (ALT/SGPT) 344 U/L (12-78) H Alkaline Phosphatase 633 U/L (46-116) H Total Creatine Kinase 27 U/L (26-308) Total Protein 6.7 G/DL (6.4-8.2) Albumin 1.5 G/DL (3.4-5.0) L Globulin 5.2 g/dL Albumin/Globulin Ratio 0.3 (1.0-2.7) L Current Medications Medications (Trade) Dose Ordered Sig/Maryjane Route PRN Reason Start Time Stop Time Status Last Admin Dose Admin Acetaminophen (Tylenol) 650 mg Q4H PRN GT Mild Pain (Pain Scale 1-3) 06/18/20 23:00 07/18/20 22:59 Acetaminophen (Tylenol) 650 mg Q4HR PRN GT FEVER 06/14/20 09:45 07/14/20 09:44 06/19/20 20:45 Aluminum Hydroxide (Amphojel) 1,920 mg Q6H GT 06/17/20 10:00 07/17/20 09:59 06/30/20 04:47 Ascorbic Acid (Vitamin C) 500 mg DAILY GT 06/30/20 09:00 07/16/20 08:59 Chlorhexidine Gluconate (Inés-Hex 2%) 1 applic DAILY@1999 TOPIC 06/21/20 20:00 09/19/20 19:59 06/29/20 20:28 Dextrose (Dextrose 50%) 25 ml Q30M PRN IV Hypoglycemia 06/28/20 18:30 09/26/20 18:29 Dextrose (Dextrose 50%) 50 ml Q30M PRN IV Hypoglycemia 06/28/20 18:30 09/26/20 18:29 Epoetin Bonilla (Epoetin Bonilla-EPBX(NON ESRD)) 10,000 unit TUE-TUE-TUE SUBQ 06/18/20 21:00 09/16/20 20:59 06/27/20 21:04 Haloperidol Lactate (Haldol) 5 mg Q6H PRN IM Agitation 06/21/20 23:15 08/05/20 23:14 06/25/20 18:17 Insulin Aspart (NovoLOG) EVERY 6 HOURS SUBQ 06/29/20 00:00 09/27/20 00:00 06/29/20 18:13 Lansoprazole (Prevacid) 30 mg Q12HR GT 06/30/20 09:00 07/27/20 17:59 Levothyroxine Sodium (Synthroid) 50 mcg DAILY@0630 GT 07/01/20 06:30 07/25/20 06:29 Vancomycin HCl (Vanco pharmacy to dose) 1 ea DAILY PRN MISC Per rx protocol 06/27/20 11:30 07/18/20 23:59 Vancomycin HCl 750 mg/Sodium Chloride 275 ml @ 183.333 mls/hr ONCE ONCE IVPB 07/01/20 05:00 07/01/20 06:29 Paul Amador MD Jun 30, 2020 11:50
--- NOTE | 2020-06-30 12:03 | Nephrology Progress Note ---
Assessment/Plan Problem List: (1) KERRI (acute kidney injury) (2) Acute respiratory failure (3) Chronic respiratory failure (4) Anemia (5) Hyperkalemia Assessment Acute on chronic renal failure Anemia Respiratory failure acute on chronic Respiratory acidosis and hypoxia Hyperkalemia Plan June 30: Labs reviewed. Due for dialysis today. Patient appears to be needing hemodialysis for sometimes incoming future. Will arrange for placement of a tunneled catheter. Continue per consultants. Anemia management per [employer]. June 29: Labs reviewed. Hemoglobin is higher. Next hemodialysis tomorrow June 30. Continue per consultants. June 28: Labs reviewed. Last dialyzed June 26. Hemoglobin remains low. Defer transfusion and work-up to [employer]. Continue to follow-up renal parameters. June 27: Labs reviewed. Dialyzed yesterday. Hemoglobin low. Due for transfusion. Continue to monitor renal parameters and hemoglobin and hematocrit. June 26: Labs reviewed. Due for dialysis today. Continue per consultants. Continue to monitor liver enzymes. June 25: Labs reviewed. Will dialyze tomorrow. Continue per consultants. Check liver function enzymes. June 24: Dialyzed yesterday. Labs reviewed. Medication list reviewed. Liver enzymes remains elevated. Continue to monitor electrolytes renal parameters and LFTs. Hemodialysis in a.m. if needed. June 23: Patient will be dialyzed today again. Labs reviewed. Serum creatinine higher. Elevated liver enzymes persist. Patient full code. Continue per consultants. June 22: Patient dialyzed yesterday. Labs reviewed. Liver function tests and enzymes are elevated. Continue to monitor renal parameters and LFTs. Continue per consultants. Patient full code. June 21: Patient due for dialysis today. Labs and medication list reviewed. Discussed with RN. Continue to monitor renal parameters. June 20: Patient had an episode of bradycardia last night. Serum creatinine rising. Patient continues to have respiratory acidosis. Discussed with MAX Bond. Will order non tunneled dialysis catheter placement for initiation of dialysis treatment due to acute renal failure. Patient remains full code. I favor comfort care if bioethics consultation is sought and physicians on the team agreeable. June 19: No CHEM panel today. Low hemoglobin as of yesterday's lab results. Anemia management per Dr. Cueva. Continue to monitor renal parameters. June 18: Labs are reviewed. Hemoglobin lower. Creatinine higher. ABG not done yet. Patient full code. Continue per consultants. November 10: Labs reviewed. Hemoglobin low. Creatinine up to 3. Phosphorus levels elevated. Will start Amphojel via GT tube as a phosphorus binder. Monitor renal parameters. Check ABG. Continue per consultants. June 16: Labs reviewed. Serum creatinine mariana to 2.6. Abnormal electrolytes now normalized. Continue to monitor renal parameters and avoid nephrotoxic's. Continue to adjust pulmonary status as possible. June 15: ABG pH of 7.1. 2D echo suggestive of ejection fraction of 50%. Labs reviewed. Serum creatinine mariana. Will hold IV Lasix. Will give Kayexalate for high potassium and 1 amp of sodium bicarb. Albumin IV bolus given. Continue per consultants. Continue to monitor renal parameters. Kidney ultrasound ordered. June 14: As follow Pulmonary evaluation Sparrow catheter Hold IV fluid IV fluid, until 2D echo results available Kayexalate for high potassium IV Protonix 2D echocardiogram Anemia work-up More labs ordered Subjective ROS Limited/Unobtainable: Yes Objective Objective Last 24 Hour Vital Signs Date Time Temp Pulse Resp B/P (MAP) Pulse Ox O2 Delivery O2 Flow Rate FiO2 06/30/20 11:10 66 24 40 06/30/20 08:00 Mechanical Ventilator 06/30/20 08:00 95.6 64 26 129/77 (94) 97 06/30/20 08:00 40 06/30/20 07:42 66 06/30/20 07:20 65 19 40 06/30/20 04:00 Mechanical Ventilator 06/30/20 04:00 97.4 70 26 132/72 (92) 97 06/30/20 03:49 40 06/30/20 03:37 69 21 40 06/30/20 03:36 69 06/30/20 00:10 68 06/30/20 00:00 40 06/30/20 00:00 Mechanical Ventilator 06/29/20 23:46 97.9 69 21 129/74 (92) 97 06/29/20 22:48 68 16 40 06/29/20 20:00 67 06/29/20 20:00 97.6 67 15 138/78 (98) 96 06/29/20 20:00 Mechanical Ventilator 06/29/20 20:00 40 06/29/20 19:10 65 21 40 06/29/20 16:00 95.5 96 21 119/78 (92) 96 06/29/20 16:00 40 06/29/20 16:00 Mechanical Ventilator 06/29/20 16:00 Mechanical Ventilator 06/29/20 16:00 66 06/29/20 15:12 64 21 40 06/29/20 12:26 68 Intake and Output 06/29/20 06/30/20 19:00 07:00 Intake Total 580 ml 360 ml Output Total 250 ml 200 ml Balance 330 ml 160 ml Free Water 100 ml Tube Feeding 480 ml 360 ml Output Urine Total 0 ml Stool Total 250 ml 200 ml Current Medications Medications (Trade) Dose Ordered Sig/Maryjane Route PRN Reason Start Time Stop Time Status Last Admin Dose Admin Acetaminophen (Tylenol) 650 mg Q4H PRN GT Mild Pain (Pain Scale 1-3) 06/18/20 23:00 07/18/20 22:59 Acetaminophen (Tylenol) 650 mg Q4HR PRN GT FEVER 06/14/20 09:45 07/14/20 09:44 06/19/20 20:45 Aluminum Hydroxide (Amphojel) 1,920 mg Q6H GT 06/17/20 10:00 07/17/20 09:59 06/30/20 04:47 Ascorbic Acid (Vitamin C) 500 mg DAILY GT 06/30/20 09:00 07/16/20 08:59 Chlorhexidine Gluconate (Inés-Hex 2%) 1 applic DAILY@1999 TOPIC 06/21/20 20:00 09/19/20 19:59 06/29/20 20:28 Dextrose (Dextrose 50%) 25 ml Q30M PRN IV Hypoglycemia 06/28/20 18:30 09/26/20 18:29 Dextrose (Dextrose 50%) 50 ml Q30M PRN IV Hypoglycemia 06/28/20 18:30 09/26/20 18:29 Epoetin Bonilla (Epoetin Bonilla-EPBX(NON ESRD)) 10,000 unit TUE-TUE-TUE SUBQ 06/18/20 21:00 09/16/20 20:59 06/27/20 21:04 Haloperidol Lactate (Haldol) 5 mg Q6H PRN IM Agitation 06/21/20 23:15 08/05/20 23:14 06/25/20 18:17 Insulin Aspart (NovoLOG) EVERY 6 HOURS SUBQ 06/29/20 00:00 09/27/20 00:00 06/29/20 18:13 Lansoprazole (Prevacid) 30 mg Q12HR GT 06/30/20 09:00 07/27/20 17:59 Levothyroxine Sodium (Synthroid) 50 mcg DAILY@0630 GT 07/01/20 06:30 07/25/20 06:29 Vancomycin HCl (Vanco pharmacy to dose) 1 ea DAILY PRN MISC Per rx protocol 06/27/20 11:30 07/18/20 23:59 Vancomycin HCl 750 mg/Sodium Chloride 275 ml @ 183.333 mls/hr ONCE ONCE IVPB 07/01/20 05:00 07/01/20 06:29 Laboratory Tests 06/29/20 15:45: Random Vancomycin Level 20.2 06/29/20 18:10: POC Whole Blood Glucose 148H 06/29/20 23:56: POC Whole Blood Glucose 134H 06/30/20 04:57: POC Whole Blood Glucose 136H 06/30/20 05:50: White Blood Count 14.2H, Red Blood Count 2.33L, Hemoglobin 7.0L, Hematocrit 22.0L, Mean Corpuscular Volume 94, Mean Corpuscular Hemoglobin 30.3, Mean Corpuscular Hemoglobin Concent 32.1, Red Cell Distribution Width 15.5H, Platelet Count 82L, Mean Platelet Volume 10.2H, Neutrophils (%) (Auto) , Lymphocytes (%) (Auto) , Monocytes (%) (Auto) , Eosinophils (%) (Auto) , Basophils (%) (Auto) , Differential Total Cells Counted 100, Neutrophils % (Manual) 77H, Lymphocytes % (Manual) 6L, Monocytes % (Manual) 4, Eosinophils % (Manual) 13H, Basophils % (Manual) 0, Band Neutrophils 0, Platelet Estimate DecreasedL, Platelet Morphology , Giant Platelets Occasional, Hypochromasia 1+, Anisocytosis 1+, Sodium Level 135L, Potassium Level 4.1, Chloride Level 100, Carbon Dioxide Level 31, Anion Gap 4L, Blood Urea Nitrogen 83H, Creatinine 4.6H, Estimat Glomerular Filtration Rate 16.2, Glucose Level 139H, Calcium Level 8.5, Total Bilirubin 0.4, Aspartate Amino Transf (AST/SGOT) 343H, Alanine Aminotransferase (ALT/SGPT) 344H, Alkaline Phosphatase 633H, Total Creatine Kinase 27, Total Protein 6.7, Albumin 1.5L, Globulin 5.2, Albumin/Globulin Ratio 0.3L Height (Feet): 5 Height (Inches): 8.00 Weight (Pounds): 143 General Appearance: no apparent distress EENT: other - Trach to vent Cardiovascular: normal rate Respiratory/Chest: decreased breath sounds Abdomen: distended Leonidas Honeycutt MD Jun 30, 2020 12:03
--- NOTE | 2020-06-30 12:30 | NUR ---
NURSE NOTES: Assisted Dr. Mares at bedside with patients sacral wound. Sacral wound sutures removed by Dr. Mares. Sacral wound dressing changed by Dr. Mares. Will continue to monitor wound per protocol
--- NOTE | 2020-06-30 13:55 | Surgery Progress Note ---
Surgery Progress Note Subjective Additional Comments Worsening leukocytosis. Patient continues to have dehiscence of the prior primarily closed sacral decubitus ulcer. The sutures are was nearly torn out and the wound is opening and saturating with stool with bowel movements now has rectal tube. Unfortunately I see significant concern given dehiscence and therefore sutures were cut at the bedside and wound immediately opened under some tension. Underlying Vicryl sutures identified. There is some backbleeding some granulation tissue but definitely no take or closure of the stage IV sacral decubitus ulcer that was identified. Nonexcisional debridement done with gauze and jorge layer of slough and biofilm was removed wound was cleaned packing dressings applied. No abscess no purulent drainage unlikely etiology of infection. Objective Last 24 Hour Vital Signs Date Time Temp Pulse Resp B/P (MAP) Pulse Ox O2 Delivery O2 Flow Rate FiO2 06/30/20 12:00 95.4 67 20 129/71 (90) 97 06/30/20 12:00 Mechanical Ventilator 06/30/20 12:00 40 06/30/20 11:53 66 06/30/20 11:10 66 24 40 06/30/20 08:00 Mechanical Ventilator 06/30/20 08:00 95.6 64 26 129/77 (94) 97 06/30/20 08:00 40 06/30/20 07:42 66 06/30/20 07:20 65 19 40 06/30/20 04:00 Mechanical Ventilator 06/30/20 04:00 97.4 70 26 132/72 (92) 97 06/30/20 03:49 40 06/30/20 03:37 69 21 40 06/30/20 03:36 69 06/30/20 00:10 68 06/30/20 00:00 40 06/30/20 00:00 Mechanical Ventilator 06/29/20 23:46 97.9 69 21 129/74 (92) 97 06/29/20 22:48 68 16 40 06/29/20 20:00 67 06/29/20 20:00 97.6 67 15 138/78 (98) 96 06/29/20 20:00 Mechanical Ventilator 06/29/20 20:00 40 06/29/20 19:10 65 21 40 06/29/20 16:00 95.5 96 21 119/78 (92) 96 06/29/20 16:00 40 06/29/20 16:00 Mechanical Ventilator 06/29/20 16:00 Mechanical Ventilator 06/29/20 16:00 66 06/29/20 15:12 64 21 40 I&O Intake and Output 06/29/20 06/30/20 19:00 07:00 Intake Total 580 ml 360 ml Output Total 250 ml 200 ml Balance 330 ml 160 ml Free Water 100 ml Tube Feeding 480 ml 360 ml Output Urine Total 0 ml Stool Total 250 ml 200 ml Dressing: saturated Cardiovascular: RSR Respiratory: decreased breath sounds Abdomen: non-tender, present bowel sounds, non-distended Extremities: no tenderness, no cyanosis Laboratory Tests Test 06/29/20 15:45 06/29/20 18:10 06/29/20 23:56 06/30/20 04:57 Random Vancomycin Level 20.2 ug/mL POC Whole Blood Glucose 148 MG/DL (74-106) H 134 MG/DL (74-106) H 136 MG/DL (74-106) H Test 06/30/20 05:50 06/30/20 12:52 White Blood Count 14.2 K/UL (4.8-10.8) H Red Blood Count 2.33 M/UL (4.70-6.10) L Hemoglobin 7.0 G/DL (14.2-18.0) L Hematocrit 22.0 % (42.0-52.0) L Mean Corpuscular Volume 94 FL (80-99) Mean Corpuscular Hemoglobin 30.3 PG (27.0-31.0) Mean Corpuscular Hemoglobin Concent 32.1 G/DL (32.0-36.0) Red Cell Distribution Width 15.5 % (11.6-14.8) H Platelet Count 82 K/UL (150-450) L Mean Platelet Volume 10.2 FL (6.5-10.1) H Neutrophils (%) (Auto) % (45.0-75.0) Lymphocytes (%) (Auto) % (20.0-45.0) Monocytes (%) (Auto) % (1.0-10.0) Eosinophils (%) (Auto) % (0.0-3.0) Basophils (%) (Auto) % (0.0-2.0) Differential Total Cells Counted 100 Neutrophils % (Manual) 77 % (45-75) H Lymphocytes % (Manual) 6 % (20-45) L Monocytes % (Manual) 4 % (1-10) Eosinophils % (Manual) 13 % (0-3) H Basophils % (Manual) 0 % (0-2) Band Neutrophils 0 % (0-8) Platelet Estimate Decreased L Platelet Morphology Giant Platelets Occasional Hypochromasia 1+ Anisocytosis 1+ Sodium Level 135 MMOL/L (136-145) L Potassium Level 4.1 MMOL/L (3.5-5.1) Chloride Level 100 MMOL/L (98-107) Carbon Dioxide Level 31 MMOL/L (21-32) Anion Gap 4 mmol/L (5-15) L Blood Urea Nitrogen 83 mg/dL (7-18) H Creatinine 4.6 MG/DL (0.55-1.30) H Estimat Glomerular Filtration Rate 16.2 mL/min (>60) Glucose Level 139 MG/DL (74-106) H Calcium Level 8.5 MG/DL (8.5-10.1) Total Bilirubin 0.4 MG/DL (0.2-1.0) Aspartate Amino Transf (AST/SGOT) 343 U/L (15-37) H Alanine Aminotransferase (ALT/SGPT) 344 U/L (12-78) H Alkaline Phosphatase 633 U/L (46-116) H Total Creatine Kinase 27 U/L (26-308) Total Protein 6.7 G/DL (6.4-8.2) Albumin 1.5 G/DL (3.4-5.0) L Globulin 5.2 g/dL Albumin/Globulin Ratio 0.3 (1.0-2.7) L POC Whole Blood Glucose 102 MG/DL (74-106) Plan Problems: (1) Leukocytosis Assessment & Plan: 54-year-old male multiple comorbidities admitted for abnormal chest x-ray potentially pneumonia leukocytosis abnormal labs. Patient identified to have a prior left BKA surgical sutures still in place as well as a surgical sacral wound with sutures in place. Considerations of dehiscence being identified and potential etiology of infection. After evaluation unlikely source of infection though the sacral wound was looked to be dehiscing at the inferior aspect. No acute surgical mention at this time We will discussed care plan with PCP Recommend follow-up with initial surgeon considerations of removal of surgical sutures Care plan initiated worsening lft's US ordered ? shayla Extensive airspace consolidations at the lung bases consistent with severe multifocal infiltrate. Associated, large bilateral pleural effusions. Evaluation of the abdominal viscera is markedly suboptimal due to poor CT technique and lack of intravenous contrast. No definite hepatic lesion. No definite cholelithiasis. Mild colon wall thickening. The spleen, pancreas, and adrenal glands are not visualized well enough reliable assessment. No definite hydronephrosis. The kidneys are hyperdense, correlate for medical renal disease. No nephrolithiasis. Sparrow catheter within a decompressed urinary bladder. Moderate diverticulosis, without acute diverticulitis. No small bowel obstruction. PEG tube presumably within the stomach. Atherosclerotic calcifications of the aorta. Low-attenuation of the intravascular blood pool, correlate for anemia. IVC filter, incidentally noted. Air within the subcutaneous fat overlying the sacrum with skin thickening, correlate with physical exam for sacral decubitus ulcer. Degenerative changes of the spine. Bilateral pars defects at L5 without anterolisthesis of L5 on S1. IMPRESSION: Extensive airspace consolidations at the lung bases consistent with severe multifocal infiltrate. Associated, large bilateral pleural effusions. Evaluation of the abdominal viscera is markedly suboptimal due to poor CT technique and lack of intravenous contrast. Moderate diverticulosis, without acute diverticulitis. No small bowel obstruction. PEG tube presumably within the stomach. Note, if there is suspicion for colitis consider repeat scan with improved CT technique/intravenous contrast. Mild gallbladder wall thickening without definite evidence of cholelithiasis. Air within the subcutaneous fat overlying the sacrum with skin thickening, correlate with physical exam for sacral decubitus ulcer. Bilateral pars defects at L5. The kidneys are hyperdense, correlate for medical renal disease.. There is prompt uptake within the liver with washout of radiotracer from the liver on subsequent imaging. There is excretion into the biliary ducts. Gallbladder activity is present in a timely fashion indicating patency of the cystic duct. Very scant bowel activity is demonstrated concerning for common bile duct obstruction or sphincter dysfunction. IMPRESSION: No evidence to suggest cholecystitis. Gallbladder activity is present in a timely fashion indicating patency of the cystic duct. Very little radiotracer noted in the small bowel. Correlate with LFTs as a degree of common bile duct obstruction or sphincter dysfunction not excluded. Consider further evaluation with MRCP. (2) Surgical wound dehiscence Assessment & Plan: Patient identified to have a left BKA surgical sutures in place flap looks like it is taken well no signs of infection at this time no signs of seroma hematoma or drainage. Unknown exact length or duration of potential prior left BKA and until then recommend leaving sutures in place as it may be too early though it does look well-healed. If able to obtain prior records we will be happy to remove sutures otherwise will need follow-up with primary surgeon furthermore patient identified to have a surgical wound in the sacral area seems he probably potentially had a stage IV sacral decubitus ulcer that had debridement and primary closure. Fortunately. Sutures are still in place and it looks like the inferior aspect may be slowly dehiscing. There is no significant drainage no foul odor no signs of active infection unknown if bone was palpable prior. Can consider removing surgical sutures but again would recommend obtaining prior records of possible prior to doing so. Also recommend following up with primary surgeon as this may need ongoing continued care. Will follow with recommendations and as information is available. Continue current care plan. Wash wounds daily with normal saline. Apply skin protectant Optifoam dressing. Turn every 2 hours. Offload pressure with pillows and air mattress. Nutritional optimization. Worsening leukocytosis. Patient continues to have dehiscence of the prior primarily closed sacral decubitus ulcer. The sutures are was nearly torn out and the wound is opening and saturating with stool with bowel movements now has rectal tube. Unfortunately I see significant concern given dehiscence and therefore sutures were cut at the bedside and wound immediately opened under some tension. Underlying Vicryl sutures identified. There is some backbleeding some granulation tissue but definitely no take or closure of the stage IV sacral decubitus ulcer that was identified. Nonexcisional debridement done with gauze and jorge layer of slough and biofilm was removed wound was cleaned packing d ressings applied. No abscess no purulent drainage unlikely etiology of infection. (3) History of left below knee amputation (4) Malnutrition Assessment & Plan: DAILY ESTIMATED NEEDS: Needs based on Wound, critical care, underweight/ 55.5kg 25-33 (25-35 w/ HD) kcals/kg [id number] ([id number]) total kcals 1.25-2 g protein/kg 69-111 g total protein 25-30 mL/kg [id number] total fluid mLs NUTRITION DIAGNOSIS: * Swallowing difficulty R/T respiratory status as evidenced by pt is trach/vent dep, PEG dep. CURRENT TF: Nepro @ 40ml/hr x24 hrs ENTERAL NUTRITION RECOMMENDATIONS: Nepro @ 40ml/hr x 24 hrs to provide 960ml, 1728kcal, 78g prot, 698ml free water * Maintain current TF * HOB over 30 degrees/ water flush per MD ADDITIONAL RECOMMENDATIONS: * Per SNF: HT=69" [id number] -> rec daily calibrated bedscale wt * Monitor lytes: elev K-> now wnl, phos now low * Wound healing: RANDY BID + Nephrovite 1 tab qdaily * Monitor for bm, last bm 06/19, now 06/24 * W/ HD rec to add Prosource 1 pack qdaily for added 11g pro/day. (5) Anemia (6) KERRI (acute kidney injury) (7) Acute respiratory failure (8) Hyperkalemia (9) Anemia (10) Abnormal laboratory test result (11) Chronic respiratory failure Azar Mares Jun 30, 2020 13:55
[2020-06-30] MEDS ORDERED: Lidocaine 2% 20mg/ml/Epi 0.005mg/ml 20ml vial INJ PRN (14:51)
[2020-06-30] MEDS ORDERED: Heparin1,000 units/500ml Premix(Conc:2 units/ml) INJ PRN (14:51)
[2020-06-30] MEDS ORDERED: LORazepam Inj 2mg/ml 1ml IV SCH (15:23)
--- NOTE | 2020-06-30 15:40 | NUR ---
NURSE NOTES: Patient is off the unit. RN accompanied patient to radiology department for Tunneled dialysis catheter placement.
--- NOTE | 2020-06-30 16:14 | Pre-Procedure Note/Attestation ---
Pre-Procedure Note/Attestation Complete Prior to Procedure Planned Procedure: not applicable Procedure Narrative: permacath Indications for Procedure Pre-Operative Diagnosis: renal failure Attestation I attest that I discussed the nature of the procedure; its benefits; risks and complications; and alternatives (and the risks and benefits of such alternatives), prior to the procedure, with the patient (or the patient's legal professional healthcare representative). I attest that, if there was a reasonable possibility of needing a blood t ransfusion, the patient (or the patient's legal professional healthcare representative) was given the [facility] standardized written summary, pursuant to the Rex Amparo Blood Safety Act ([place] Health and Safety Code # 1645, as amended). I attest that I re-evaluated the patient just prior to the surgery and that there has been no change in the patient's H&P, except as documented below: Discussed by phone with pt's. daughter Blanca and sister Stephy ThomasSalo MD Jun 30, 2020 16:14
--- NOTE | 2020-06-30 16:15 | General Progress Note ---
Progress Note Progress Note Discussed permacath with Dr. Amador regarding increased WBC. He indicates pt. is clear for procedure from ID standpoint. Salo Thomas MD Jun 30, 2020 16:15
--- NOTE | 2020-06-30 16:16 | NUR ---
CASE MANAGEMENT:REVIEW 06/30/20 SI: AC/CHR RESP FAILURE. AC/CHR RENAL FAILURE TRACH/VENT DEPENDENT. ANEMIA...S/P 5 UNITS PRBC'S 95.4 67 20 129/71 97% ON 40% FIO2 VIA VENT `WBC+14.2 H/H-7.0/22.0 PLT-82 BUN+83 CR+4.6 IS: IV VANCOMYCIN X1 SYNTHROID GT QD EPOETIN SQ MWF VIT C GT QD : STEP DOWN UNIT DCP: FROM [facility] PLAN: HAS NON TUNNELED DIALYSIS CATHETER
[2020-06-30] MEDS ORDERED: ceFAZolin sod 1 GM in D5W 55 ML IVPB SCH (16:30)
--- NOTE | 2020-06-30 16:31 | Brief Operative Note ---
Immediate Post Operative Note Operative Note Pre-op Diagnosis: renal failure Procedure: R IJV permacath Post-op Diagnosis: same as pre-op Surgeon: Froy THOMAS Anesthesia: local Specimen: none Complications: none Fluids: none Implant(s) used?: No Salo Thomas MD Jun 30, 2020 16:31
--- NOTE | 2020-06-30 16:43 | General Progress Note ---
Subjective ROS Limited/Unobtainable: Yes Allergies: Coded Allergies: No Known Allergies (Unverified , 06/13/20) Objective Last 24 Hour Vital Signs Date Time Temp Pulse Resp B/P (MAP) Pulse Ox O2 Delivery O2 Flow Rate FiO2 06/30/20 16:05 61 18 133/84 100 06/30/20 16:00 100 06/30/20 15:57 61 18 06/30/20 15:35 68 20 129/71 96 06/30/20 15:13 67 06/30/20 15:00 71 20 40 06/30/20 12:00 95.4 67 20 129/71 (90) 97 06/30/20 12:00 Mechanical Ventilator 06/30/20 12:00 40 06/30/20 11:53 66 06/30/20 11:10 66 24 40 06/30/20 08:00 Mechanical Ventilator 06/30/20 08:00 95.6 64 26 129/77 (94) 97 06/30/20 08:00 40 06/30/20 07:42 66 06/30/20 07:20 65 19 40 06/30/20 04:00 Mechanical Ventilator 06/30/20 04:00 97.4 70 26 132/72 (92) 97 06/30/20 03:49 40 06/30/20 03:37 69 21 40 06/30/20 03:36 69 06/30/20 00:10 68 06/30/20 00:00 40 06/30/20 00:00 Mechanical Ventilator 06/29/20 23:46 97.9 69 21 129/74 (92) 97 06/29/20 22:48 68 16 40 06/29/20 20:00 67 06/29/20 20:00 97.6 67 15 138/78 (98) 96 06/29/20 20:00 Mechanical Ventilator 06/29/20 20:00 40 06/29/20 19:10 65 21 40 Intake and Output 06/29/20 06/30/20 19:00 07:00 Intake Total 580 ml 360 ml Output Total 250 ml 200 ml Balance 330 ml 160 ml Free Water 100 ml Tube Feeding 480 ml 360 ml Output Urine Total 0 ml Stool Total 250 ml 200 ml Laboratory Tests 06/29/20 18:10: POC Whole Blood Glucose 148H 06/29/20 23:56: POC Whole Blood Glucose 134H 06/30/20 04:57: POC Whole Blood Glucose 136H 06/30/20 05:50: White Blood Count 14.2H, Red Blood Count 2.33L, Hemoglobin 7.0L, Hematocrit 22.0L, Mean Corpuscular Volume 94, Mean Corpuscular Hemoglobin 30.3, Mean Corpuscular Hemoglobin Concent 32.1, Red Cell Distribution Width 15.5H, Platelet Count 82L, Mean Platelet Volume 10.2H, Neutrophils (%) (Auto) , Lymphocytes (%) (Auto) , Monocytes (%) (Auto) , Eosinophils (%) (Auto) , Basophils (%) (Auto) , Differential Total Cells Counted 100, Neutrophils % (Manual) 77H, Lymphocytes % (Manual) 6L, Monocytes % (Manual) 4, Eosinophils % (Manual) 13H, Basophils % (Manual) 0, Band Neutrophils 0, Platelet Estimate DecreasedL, Platelet Morphology , Giant Platelets Occasional, Hypochromasia 1+, Anisocytosis 1+, Sodium Level 135L, Potassium Level 4.1, Chloride Level 100, Carbon Dioxide Level 31, Anion Gap 4L, Blood Urea Nitrogen 83H, Creatinine 4.6H, Estimat Glomerular Filtration Rate 16.2, Glucose Level 139H, Calcium Level 8.5, Total Bilirubin 0.4, Aspartate Amino Transf (AST/SGOT) 343H, Alanine Aminotransferase (ALT/SGPT) 344H, Alkaline Phosphatase 633H, Total Creatine Kinase 27, Total Protein 6.7, Albumin 1.5L, Globulin 5.2, Albumin/Globulin Ratio 0.3L 06/30/20 12:52: POC Whole Blood Glucose 102 Height (Feet): 5 Height (Inches): 8.00 Weight (Pounds): 143 Assessment/Plan Problem List: (1) Anemia ICD Codes: D64.9 - Anemia, unspecified SNOMED: 814093136 (2) KERRI (acute kidney injury) ICD Codes: N17.9 - Acute kidney failure, unspecified SNOMED: 7552929, 91046362 (3) Acute respiratory failure ICD Codes: J96.00 - Acute respiratory failure, unspecified whether with hypoxia or hypercapnia SNOMED: 93740689 Qualifiers: Qualified Codes: J96.02 - Acute respiratory failure with hypercapnia (4) Hyperkalemia ICD Codes: E87.5 - Hyperkalemia SNOMED: 83692702 (5) Abnormal laboratory test result ICD Codes: R89.9 - Unspecified abnormal finding in specimens from other organs, systems and tissues SNOMED: 922153582 (6) Anemia ICD Codes: D64.9 - Anemia, unspecified SNOMED: 085354540 Status: progressing Assessment/Plan: sepsis arf poor prognosis per dr jones sacral wound did not hold and had dehiscence afebrile chf s/p acute mi Neida Apple MD Jun 30, 2020 16:43
--- NOTE | 2020-06-30 17:15 | NUR ---
NURSE NOTES: Patient back in the unit, remains stable. With new tunneled dialysis catheter on patient's right chest. Ok to use dialysis catheter order noted from Dr. Ortiz. Old Right IJ non tunneled dialysis catheter was removed in radiology department per protocol.
--- NOTE | 2020-06-30 17:45 | NUR ---
TUNNELED DIALYSIS CATHETER PLACEMENT BY DR. ZEINAB GUZMAN AT 1617 HRS. FA
--- NOTE | 2020-06-30 18:00 | NUR ---
NURSE NOTES: No signs and symptoms of hypoglycemia. On continuous GTF per order.
--- NOTE | 2020-06-30 18:12 | Diagnostic Imaging Report ---
Indications: Needs long-term dialysis access Technique: Patient given IV Ancef. Total sterile technique, including sterile probe cover and sterile gel, sterile gloves, hand hygiene, hat, mask,, sterile gown, large sterile drape, and preparation with 2% chlorhexidine utilized. Local anesthesia with 1% lidocaine. Ultrasound demonstrated patent compressible right internal jugular vein. Under real-time ultrasound guidance and with real-time visualization of the needle entering the vein lumen, puncture right internal jugular vein using 21-gauge micropuncture needle, passage 0.018 guidewire, exchange for 4 Lao micropuncture introducer. The guidewire was used to measure the appropriate catheter length, and was removed. The sheath was left in place. The subcutaneous tract was then anesthetized with 1% lidocaine. A chest dermatotomy was made . The tunneling device was used to pull a 14.5 Lao 27 cm BioFlo Duramax catheter through the subcutaneous tunnel to the neck dermatotomy. A guidewire was passed through the neck introducer into the inferior vena cava, and serial dilators were passed over it, followed by the introduction of a 14.5 Lao AirGuard peel-away sheath. The catheter was then introduced into the sheath, the peel-away sheath was removed. Digital radiograph documents satisfactory catheter tip position in the high right atrium, no kinking at the insertion site. Both catheter ports aspirated and flushed. Catheter was fixed to the skin. Patient tolerated procedure well without immediate complication. Total fluoroscopy time 46.1 seconds. Total dose area product 0.61354 mGym2 Total number of images-1 Comparison: None. Findings: Completion radiograph documents satisfactory position and course of the catheter, catheter tip at the high right atrium. Impression: Successful placement of right transjugular tunneled dialysis catheter, as described above
--- NOTE | 2020-06-30 18:34 | NUR ---
NURSE NOTES: Patient remains calm, able to follow commands. Bilateral soft wrist restraints discontinued.
--- NOTE | 2020-06-30 19:25 | NUR ---
NURSE HAND-OFF REPORT: Important Events on Shift: Right IJ rick-tunneled cath removed, Right Chest tunneled dialysis cath placement. Patient Status: Full Code Diet: GTF Pending Orders: Dialysis order for today 06/30/2020 Pending Results/Labs: Pending MD notification: Latest Vital Signs: Temperature 96.1 , Pulse 69 , B/P 125 /79 , Respiratory Rate 17 , O2 SAT 100 , Mechanical Ventilator, O2 Flow Rate 15.0 . Vital Sign Comment: EKG Rhythm: Sinus Rhythm Rhythm change?: N Latest Santiago Fall Score: 85 Fall Risk: High Risk Safety Measures: Call light Within Reach, Bed Alarm Zone 2, Side Rails Side Rails x3, Bed position Low and Locked. Fall Precautions: HIGH Yellow Socks Yellow Gown Door Sign Patient Fall Education Report given to Shalom GONZALES RN.
--- NOTE | 2020-06-30 19:26 | NUR ---
NURSE NOTES: Received report from MAX Boone with update. Pt observed to be lethargic, responsive to tactile stimuli, and s/p right non-tunneled cath placement. Saturating 100% at prescribed settings of A/C 16, Vt 500 and 40% fiO2. 5-lead EKG shows SR at 62 bpm. Vitals WNL. Afebrile. Sparrow and rectal tube draining well to gravity. Scheduled for H.D.. D/W with HD nurse. Bed kept in lowest and locked position. Bed alarm on. Side rails up x3. Will monitor.
[2020-06-30] MEDS: Dyna-Hex 2% Top Sol 2oz TOPIC SCH (20:24)
[2020-06-30] MEDS: Epoetin Alfa-EPBX (NON ESRD)10,000 unit/ml vial SUBQ SCH (20:48)
[2020-06-30] MEDS ORDERED: Vancomycin 750mg/NS 275ml IVPB ONE ×2 (21:00)
--- NOTE | 2020-06-30 23:27 | General Progress Note ---
Subjective Allergies: Coded Allergies: No Known Allergies (Unverified , 06/13/20) Subjective above noted stools liquid, in rectal tube-dark brown stool OB p(+) message left to family to discuss Objective Last 24 Hour Vital Signs Date Time Temp Pulse Resp B/P (MAP) Pulse Ox O2 Delivery O2 Flow Rate FiO2 06/30/20 20:00 Mechanical Ventilator 06/30/20 20:00 100 06/30/20 20:00 97.0 59 18 118/71 (87) 100 06/30/20 20:00 58 06/30/20 19:15 58 17 100 06/30/20 16:57 69 17 125/79 (94) 100 06/30/20 16:42 71 17 126/80 (95) 100 06/30/20 16:37 73 17 133/80 (97) 100 06/30/20 16:32 73 17 139/86 (103) 100 06/30/20 16:27 69 17 144/85 (104) 100 06/30/20 16:22 61 14 132/82 (99) 100 06/30/20 16:17 61 15 127/80 (96) 100 06/30/20 16:05 61 18 133/84 100 06/30/20 16:00 Mechanical Ventilator 06/30/20 16:00 96.1 62 20 133/84 (100) 100 06/30/20 16:00 100 06/30/20 15:57 61 18 06/30/20 15:35 68 20 129/71 96 06/30/20 15:13 67 06/30/20 15:00 71 20 100 06/30/20 12:00 95.4 67 20 129/71 (90) 97 06/30/20 12:00 Mechanical Ventilator 06/30/20 12:00 40 06/30/20 11:53 66 06/30/20 11:10 66 24 40 06/30/20 08:00 Mechanical Ventilator 06/30/20 08:00 95.6 64 26 129/77 (94) 97 06/30/20 08:00 40 06/30/20 07:42 66 06/30/20 07:20 65 19 40 06/30/20 04:00 Mechanical Ventilator 06/30/20 04:00 97.4 70 26 132/72 (92) 97 06/30/20 03:49 40 06/30/20 03:37 69 21 40 06/30/20 03:36 69 06/30/20 00:10 68 06/30/20 00:00 40 06/30/20 00:00 Mechanical Ventilator 06/29/20 23:46 97.9 69 21 129/74 (92) 97 Intake and Output 06/29/20 06/30/20 19:00 07:00 Intake Total 580 ml 400 ml Output Total 250 ml 200 ml Balance 330 ml 200 ml Free Water 100 ml Tube Feeding 480 ml 400 ml Output Urine Total 0 ml Stool Total 250 ml 200 ml Laboratory Tests 06/29/20 23:56: POC Whole Blood Glucose 134H 06/30/20 04:57: POC Whole Blood Glucose 136H 06/30/20 05:50: White Blood Count 14.2H, Red Blood Count 2.33L, Hemoglobin 7.0L, Hematocrit 22.0L, Mean Corpuscular Volume 94, Mean Corpuscular Hemoglobin 30.3, Mean Corpuscular Hemoglobin Concent 32.1, Red Cell Distribution Width 15.5H, Platelet Count 82L, Mean Platelet Volume 10.2H, Neutrophils (%) (Auto) , Lymphocytes (%) (Auto) , Monocytes (%) (Auto) , Eosinophils (%) (Auto) , Basophils (%) (Auto) , Differential Total Cells Counted 100, Neutrophils % (Manual) 77H, Lymphocytes % (Manual) 6L, Monocytes % (Manual) 4, Eosinophils % (Manual) 13H, Basophils % (Manual) 0, Band Neutrophils 0, Platelet Estimate DecreasedL, Platelet Morphology , Giant Platelets Occasional, Hypochromasia 1+, Anisocytosis 1+, Sodium Level 135L, Potassium Level 4.1, Chloride Level 100, Carbon Dioxide Level 31, Anion Gap 4L, Blood Urea Nitrogen 83H, Creatinine 4.6H, Estimat Glomerular Filtration Rate 16.2, Glucose Level 139H, Calcium Level 8.5, Total Bilirubin 0.4, Aspartate Amino Transf (AST/SGOT) 343H, Alanine Aminotransferase (ALT/SGPT) 344H, Alkaline Phosphatase 633H, Total Creatine Kinase 27, Total Protein 6.7, Albumin 1.5L, Globulin 5.2, Albumin/Globulin Ratio 0.3L 06/30/20 12:52: POC Whole Blood Glucose 102 06/30/20 18:48: POC Whole Blood Glucose 106 Height (Feet): 5 Height (Inches): 8.00 Weight (Pounds): 143 Objective Debilitated elderly man NCAT supple Coarse BS RRR abd sofft, flat, (+) GT s/p LLE BKA Assessment/Plan Status: progressing Assessment/Plan: Assessment Abnormal LFT - improved - ? infectious hepatitis - Hep A and B negative - ? vascular - ? meds - ? other Gross hematuria Acute anemia, ? urinary losses, ? GI loss declining platelet count Recommendations - f/u infectious hepatitis panel - continue to hold seroquel - follow LFT and CBC - await family call back re GI work Up. - TF - Transfuse Fco Banerjee MD Jun 30, 2020 23:27
[2020-07-01] VITALS: BP 122/79
--- NOTE | 2020-07-01 01:25 | NUR ---
NURSE NOTES: Dialysis nurse at bedside for HD. Pt in stable condition.
--- NOTE | 2020-07-01 03:25 | NUR ---
RESPIRATORY NOTE: PT REMAINED STABLE ON CMV WITH CURRENT SETTINGS. VENT CIRCUIT IS SECURE AND OUT OF THE WAY. PT SX PRN. AIRWAY IS MIDLINE, SECURE AND PATENT. NO S/S OF RESPIRATORY DISTRESS NOTED AT THIS TIME.
--- NOTE | 2020-07-01 03:30 | NUR ---
NURSE NOTES: 1L out post HD. In stable condition and more alert/awake. Pt refusing bed bath despite encouragement x3. Provided oral care and towelettes for wipe down. No distress noted. Will monitor.
[2020-07-01 04:00] VITALS: BP 121/72
[2020-07-01] MEDS: Aluminum Hydroxide Gel Susp 15ml GT SCH ×4 (04:59→22:06)
[2020-07-01] MEDS ORDERED: Vancomycin 750mg/NS 275ml IVPB ONE ×2 (05:00)
[2020-07-01] MEDS: NovoLOG Insulin Flexpen SUBQ SCH ×5 (05:00→23:47)
[2020-07-01 05:42] LABS: HEMATOCRIT 20.8 % (42.0-52.0); MEAN CORPUSCULAR VOLUME 96 FL (80-99); PLATELET COUNT 67 K/UL (150-450); RED BLOOD COUNT 2.18 M/UL (4.70-6.10); WHITE BLOOD COUNT 15.6 K/UL (4.8-10.8)
[2020-07-01 06:04] LABS: HEMOGLOBIN 6.6 G/DL (14.2-18.0)
[2020-07-01 06:06] LABS: INR 1.1 (0.9-1.1)
[2020-07-01 06:20] LABS: ALBUMIN 1.5 G/DL (3.4-5.0); ALBUMIN/GLOBULIN RATIO 0.3 (1.0-2.7); BILIRUBIN,TOTAL 0.3 MG/DL (0.2-1.0); CALCIUM 8.5 MG/DL (8.5-10.1); CREATININE 3.2 MG/DL (0.55-1.30); POTASSIUM 4.2 MMOL/L (3.5-5.1)
--- NOTE | 2020-07-01 06:27 | General Progress Note ---
Subjective ROS Limited/Unobtainable: Yes Allergies: Coded Allergies: No Known Allergies (Unverified , 06/13/20) Subjective events noted interval notes reviewed glucose values are stable Item Value Date Time Bedside Blood Glucose 93 mg/dl 07/01/20 0600 Bedside Blood Glucose 106 mg/dl 06/30/20 1851 Bedside Blood Glucose 102 mg/dl 06/30/20 1255 Bedside Blood Glucose 136 mg/dl H 06/30/20 0534 Bedside Blood Glucose 135 mg/dl H 06/30/20 0000 Objective Last 24 Hour Vital Signs Date Time Temp Pulse Resp B/P (MAP) Pulse Ox O2 Delivery O2 Flow Rate FiO2 07/01/20 04:01 74 07/01/20 04:00 Mechanical Ventilator 07/01/20 04:00 40 07/01/20 04:00 97.5 76 20 121/72 (88) 100 07/01/20 03:25 74 21 70 07/01/20 00:00 64 07/01/20 00:00 96.9 63 20 122/79 (93) 100 07/01/20 00:00 40 07/01/20 00:00 Mechanical Ventilator 06/30/20 23:30 62 18 70 06/30/20 20:00 Mechanical Ventilator 06/30/20 20:00 100 06/30/20 20:00 97.0 59 18 118/71 (87) 100 06/30/20 20:00 58 06/30/20 19:15 58 17 100 06/30/20 16:57 69 17 125/79 (94) 100 06/30/20 16:42 71 17 126/80 (95) 100 06/30/20 16:37 73 17 133/80 (97) 100 06/30/20 16:32 73 17 139/86 (103) 100 06/30/20 16:27 69 17 144/85 (104) 100 06/30/20 16:22 61 14 132/82 (99) 100 06/30/20 16:17 61 15 127/80 (96) 100 06/30/20 16:05 61 18 133/84 100 06/30/20 16:00 Mechanical Ventilator 06/30/20 16:00 96.1 62 20 133/84 (100) 100 06/30/20 16:00 100 06/30/20 15:57 61 18 06/30/20 15:35 68 20 129/71 96 06/30/20 15:13 67 06/30/20 15:00 71 20 100 06/30/20 12:00 95.4 67 20 129/71 (90) 97 06/30/20 12:00 Mechanical Ventilator 06/30/20 12:00 40 06/30/20 11:53 66 06/30/20 11:10 66 24 40 06/30/20 08:00 Mechanical Ventilator 06/30/20 08:00 95.6 64 26 129/77 (94) 97 06/30/20 08:00 40 06/30/20 07:42 66 06/30/20 07:20 65 19 40 Intake and Output 06/30/20 07/01/20 19:00 07:00 Intake Total 415 ml 360 ml Output Total 500 ml 1125 ml Balance -85 ml -765 ml Free Water 40 ml IV Total 55 ml Tube Feeding 360 ml 320 ml Output Urine Total 300 ml 75 ml Stool Total 200 ml 50 ml Hemodialysis UF 1000 ml # Bowel Movements 3 3 Laboratory Tests 06/30/20 12:52: POC Whole Blood Glucose 102 06/30/20 18:48: POC Whole Blood Glucose 106 07/01/20 04:40: White Blood Count 15.6H, Red Blood Count 2.18L, Hemoglobin 6.6*L, Hematocrit 20.8L, Mean Corpuscular Volume 96, Mean Corpuscular Hemoglobin 30.2, Mean Corpuscular Hemoglobin Concent 31.6L, Red Cell Distribution Width 15.0H, Platelet Count 67L, Mean Platelet Volume 10.9H, Neutrophils (%) (Auto) , Lymphocytes (%) (Auto) , Monocytes (%) (Auto) , Eosinophils (%) (Auto) , Basophils (%) (Auto) , Neutrophils % (Manual) [Pending], Lymphocytes % (Manual) [Pending], Platelet Estimate [Pending], Platelet Morphology [Pending], Prothrombin Time [Pending], Prothromb Time International Ratio [Pending], Activated Partial Thromboplast Time [Pending], Sodium Level [Pending], Potassium Level [Pending], Chloride Level [Pending], Carbon Dioxide Level [Pending], Blood Urea Nitrogen [Pending], Creatinine [Pending], Estimat Glomerular Filtration Rate [Pending], Glucose Level [Pending], Uric Acid [Pending], Calcium Level [Pending], Phosphorus Level [Pending], Magnesium Level [Pending], Total Bilirubin [Pending], Aspartate Amino Transf (AST/SGOT) [Pending], Alanine Aminotransferase (ALT/SGPT) [Pending], Alkaline Phosphatase [Pending], C- Reactive Protein, Quantitative [Pending], Total Protein [Pending], Albumin [Pending], Globulin [Pending], Cytomegalovirus DNA Qual (PCR) [Pending] 07/01/20 05:00: POC Whole Blood Glucose 96 Height (Feet): 5 Height (Inches): 8.00 Weight (Pounds): 143 General Appearance: no apparent distress Neck: normal alignment Respiratory/Chest: decreased breath sounds Abdomen: normal bowel sounds Pelvis: normal external exam Objective Current Medications Medications (Trade) Dose Ordered Sig/Maryjane Route PRN Reason Start Time Stop Time Status Last Admin Dose Admin Acetaminophen (Tylenol) 650 mg Q4H PRN GT Mild Pain (Pain Scale 1-3) 06/18/20 23:00 07/18/20 22:59 Acetaminophen (Tylenol) 650 mg Q4HR PRN GT FEVER 06/14/20 09:45 07/14/20 09:44 06/19/20 20:45 Aluminum Hydroxide (Amphojel) 1,920 mg Q6H GT 06/17/20 10:00 07/17/20 09:59 07/01/20 04:59 Ascorbic Acid (Vitamin C) 500 mg DAILY GT 07/01/20 09:00 07/31/20 08:59 Chlorhexidine Gluconate (Inés-Hex 2%) 1 applic DAILY@1999 TOPIC 06/21/20 20:00 09/19/20 19:59 06/30/20 20:24 Dextrose (Dextrose 50%) 25 ml Q30M PRN IV Hypoglycemia 06/28/20 18:30 09/26/20 18:29 Dextrose (Dextrose 50%) 50 ml Q30M PRN IV Hypoglycemia 06/28/20 18:30 09/26/20 18:29 Epoetin Bonilla (Epoetin Bonilla-EPBX(NON ESRD)) 10,000 unit TUE-TUE-TUE SUBQ 06/18/20 21:00 09/16/20 20:59 06/30/20 20:48 Haloperidol Lactate (Haldol) 5 mg Q6H PRN IM Agitation 06/21/20 23:15 08/05/20 23:14 06/25/20 18:17 Insulin Aspart (NovoLOG) EVERY 6 HOURS SUBQ 06/29/20 00:00 09/27/20 00:00 06/29/20 18:13 Lansoprazole (Prevacid) 30 mg Q12HR GT 06/30/20 21:00 07/30/20 20:59 06/30/20 20:24 Levothyroxine Sodium (Synthroid) 50 mcg DAILY@0630 GT 07/01/20 06:30 07/31/20 06:29 07/01/20 05:58 Vancomycin HCl (Vanco pharmacy to dose) 1 ea DAILY PRN MISC Per rx protocol 06/27/20 11:30 07/18/20 23:59 Vancomycin HCl 750 mg/Sodium Chloride 275 ml @ 183.333 mls/hr ONCE ONCE IVPB 07/01/20 05:00 07/01/20 06:29 07/01/20 04:59 Assessment/Plan Problem List: (1) History of left below knee amputation ICD Codes: Z89.512 - Acquired absence of left leg below knee SNOMED: 327459569, 372539104500692 (2) Surgical wound dehiscence ICD Codes: T81.31XA - Disruption of external operation (surgical) wound, not elsewhere classified, initial encounter SNOMED: 43149252 (3) Hyperkalemia ICD Codes: E87.5 - Hyperkalemia SNOMED: 46900559 (4) Acute respiratory failure ICD Codes: J96.00 - Acute respiratory failure, unspecified whether with hypoxia or hypercapnia SNOMED: 17922843 Qualifiers: Qualified Codes: J96.02 - Acute respiratory failure with hypercapnia (5) Hypothyroidism ICD Codes: E03.9 - Hypothyroidism, unspecified SNOMED: 79729867 (6) Hyperglycemia ICD Codes: R73.9 - Hyperglycemia, unspecified SNOMED: 13958067 Status: progressing Assessment/Plan: continue levothyroxine 50 mcg daily repeat thyroid function continue glucose monitoring Davy Ramos MD Jul 01, 2020 06:27
--- NOTE | 2020-07-01 06:39 | NUR ---
NURSE NOTES: Dr. Tan at bedside. Made aware of H&H. Orders for units 2 PRBC.
--- NOTE | 2020-07-01 06:40 | NUR ---
NURSE HAND-OFF REPORT: Important Events on Shift: HD 1L out, permacath, Orders for 2PRBC Patient Status: Stable Diet: Vital AF Pending Orders: [] Pending Results/Labs:[] Pending MD notification:[] Latest Vital Signs: Temperature 97.5 , Pulse 74 , B/P 121 /72 , Respiratory Rate 20 , O2 SAT 100 , Mechanical Ventilator, O2 Flow Rate 15.0 . Vital Sign Comment: [] EKG Rhythm: Sinus Rhythm Rhythm change?: N MD Notified?: N -Dr. Ruel BENDER Response: No New Orders Received Latest Santiago Fall Score: 85 Fall Risk: High Risk Safety Measures: Call light Within Reach, Bed Alarm Zone 2, Side Rails Side Rails x3, Bed position Low and Locked. Fall Precautions: Yellow Socks Yellow Gown Door Sign Patient Fall Education Report given to MAX Esqueda.
--- NOTE | 2020-07-01 06:53 | Hematology/Onc Progress Note ---
Assessment/Plan Assessment/Plan ASSESSMENT AND PLAN: #. Anemia that is likely due to chronic disease, r/o gi bleeding --> anemia panel has been reviewed, ferritin is >2000 --> no e/o hemolysis is noted --> transfuse on prn basis --> blood consent has been signed --> hgb 7.4-->7.4-->7-->6.7-->8-->7.5-->8.4-->9.1->8.1-->5.6->7.4-->7-->6.6 --> folic acid is wnl --> 1 unit prbc 06/18 --> epogen has been started # Acute DVT in the distal right common femoral vein and profunda femoris vein. --> DUPLEX. Acute DVT in the distal right common femoral vein and profunda femoris vein. 2. No evidence of left lower extremity DVT. --> cannot anticoagulate at this time --> 06/17 s/p ivc filter placement --> hold off anticoag # Leukocytosis is likely due to b/l infiltrates --> on abx as per id -> ABX yolis/vanc-->yolis/linezolid--> yolis/levaq-->linezolid->vanc --> continue trend --> wbc 15-->12->9.5-->13-->14 # Thrombocytopenia likely due to infection --> plt 82-->67 --> hep and hiv neg # Respiratory failure in this patient with vent-dependent respiratory failure. 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 # Dysphagia --> status post PEG placement. # Renal failure. -> per Dr. Honeycutt. # Hyperkalemia and kayxelate as needed. # Dvt ppx scds Appreciate consultation and angela RN Subjective HEENT: Denies: no symptoms, eye pain, blurred vision, tearing, double vision, ear pain, ear discharge, nose pain, nose congestion, throat pain, throat swelling, mouth pain, mouth swelling, other Cardiovascular: Denies: no symptoms, chest pain, edema, irregular heart rate, lightheadedness, palpitations, syncope, other Respiratory: Denies: no symptoms, cough, shortness of breath, SOB with excertion, SOB at rest, sputum, wheezing, other Gastrointestinal/Abdominal: Denies: no symptoms, abdomen distended, abdominal pain, black stools, tarry stools, blood in stool, constipated, diarrhea, difficulty swallowing, nausea, poor appetite, poor fluid intake, rectal bleeding, vomiting, other Genitourinary: Denies: no symptoms, burning, discharge, frequency, flank pain, hematuria, incontinence, pain, urgency, other Neurologic/Psychiatric: Denies: no symptoms, anxiety, depressed, emotional problems, headache, numbness, paresthesia, pre-existing deficit, seizure, tingling, tremors, weakness, other Endocrine: Denies: no symptoms, excessive sweating, flushing, intolerance to cold, intolerance to heat, increased hunger, increased thirst, increased urine, unexplained weight gain, unexplained weight loss, other Allergies: Coded Allergies: No Known Allergies (Unverified , 06/13/20) Subjective 06/16 meds noted, labs reviewed, vent to trach, for ivc filter potentially 06/17 labs noted, meds reviewed, for ivc filter once covid neg 06/18 labs are noted, on vent and gt, 1 unit prbc ordered 06/19 labs pending, is s/p ivcf placement yesterday 06/20 for hd nontunneled cathter placement, no bleeding 06/22 labs noted, no bleeding, found down overnight, got ct brain, is neg 06/23 overnight is agitated and requiring restraints 06/24 labs noted, meds reviewed, hgb pending for am, restraints 06/25 labs reviewed, meds noted, no bleeding, hgb improved 06/26 per Rn, with rapid response overnight hr is improved, meds noted 06/27 labs reviewed, meds noted, no bleeding, hgb 5.6, wbc elevated, to get 2 unit prbc 06/29 on vanc, wbc 13, hgb 7.3, plt 88, on vanc 06/30 meds reviewed, hgb at 7, occult +, as per gi care, with diarrhea 07/01 plt 67, hgb 6.6, to get 2 units prbc, dw RN at bedside Objective Objective Current Medications Medications (Trade) Dose Ordered Sig/Maryjane Route PRN Reason Start Time Stop Time Status Last Admin Dose Admin Acetaminophen (Tylenol) 650 mg Q4H PRN GT Mild Pain (Pain Scale 1-3) 06/18/20 23:00 07/18/20 22:59 Acetaminophen (Tylenol) 650 mg Q4HR PRN GT FEVER 06/14/20 09:45 07/14/20 09:44 06/19/20 20:45 Aluminum Hydroxide (Amphojel) 1,920 mg Q6H GT 06/17/20 10:00 07/17/20 09:59 07/01/20 04:59 Ascorbic Acid (Vitamin C) 500 mg DAILY GT 07/01/20 09:00 07/31/20 08:59 Chlorhexidine Gluconate (Inés-Hex 2%) 1 applic DAILY@1999 TOPIC 06/21/20 20:00 09/19/20 19:59 06/30/20 20:24 Dextrose (Dextrose 50%) 25 ml Q30M PRN IV Hypoglycemia 06/28/20 18:30 09/26/20 18:29 Dextrose (Dextrose 50%) 50 ml Q30M PRN IV Hypoglycemia 06/28/20 18:30 09/26/20 18:29 Epoetin Bonilla (Epoetin Bonilla-EPBX(NON ESRD)) 10,000 unit TUE-TUE-TUE SUBQ 06/18/20 21:00 09/16/20 20:59 06/30/20 20:48 Haloperidol Lactate (Haldol) 5 mg Q6H PRN IM Agitation 06/21/20 23:15 08/05/20 23:14 06/25/20 18:17 Insulin Aspart (NovoLOG) EVERY 6 HOURS SUBQ 06/29/20 00:00 09/27/20 00:00 06/29/20 18:13 Lansoprazole (Prevacid) 30 mg Q12HR GT 06/30/20 21:00 07/30/20 20:59 06/30/20 20:24 Levothyroxine Sodium (Synthroid) 50 mcg DAILY@06 GT 07/01/20 06:30 07/31/20 06:29 07/01/20 05:58 Vancomycin HCl (Vanco pharmacy to dose) 1 ea DAILY PRN MISC Per rx protocol 06/27/20 11:30 07/18/20 23:59 Last 24 Hour Vital Signs Date Time Temp Pulse Resp B/P (MAP) Pulse Ox O2 Delivery O2 Flow Rate FiO2 07/01/20 04:01 74 07/01/20 04:00 Mechanical Ventilator 07/01/20 04:00 40 07/01/20 04:00 97.5 76 20 121/72 (88) 100 07/01/20 03:25 74 21 70 07/01/20 00:00 64 07/01/20 00:00 96.9 63 20 122/79 (93) 100 07/01/20 00:00 40 07/01/20 00:00 Mechanical Ventilator 06/30/20 23:30 62 18 70 06/30/20 20:00 Mechanical Ventilator 06/30/20 20:00 100 06/30/20 20:00 97.0 59 18 118/71 (87) 100 06/30/20 20:00 58 06/30/20 19:15 58 17 100 06/30/20 16:57 69 17 125/79 (94) 100 06/30/20 16:42 71 17 126/80 (95) 100 06/30/20 16:37 73 17 133/80 (97) 100 06/30/20 16:32 73 17 139/86 (103) 100 06/30/20 16:27 69 17 144/85 (104) 100 06/30/20 16:22 61 14 132/82 (99) 100 06/30/20 16:17 61 15 127/80 (96) 100 06/30/20 16:05 61 18 133/84 100 06/30/20 16:00 Mechanical Ventilator 06/30/20 16:00 96.1 62 20 133/84 (100) 100 06/30/20 16:00 100 06/30/20 15:57 61 18 06/30/20 15:35 68 20 129/71 96 06/30/20 15:13 67 06/30/20 15:00 71 20 100 06/30/20 12:00 95.4 67 20 129/71 (90) 97 06/30/20 12:00 Mechanical Ventilator 06/30/20 12:00 40 06/30/20 11:53 66 06/30/20 11:10 66 24 40 06/30/20 08:00 Mechanical Ventilator 06/30/20 08:00 95.6 64 26 129/77 (94) 97 06/30/20 08:00 40 06/30/20 07:42 66 06/30/20 07:20 65 19 40 06/30/20 04:00 Mechanical Ventilator 06/30/20 04:00 97.4 70 26 132/72 (92) 97 06/30/20 03:49 40 06/30/20 03:37 69 21 40 06/30/20 03:36 69 06/30/20 00:10 68 06/30/20 00:00 40 06/30/20 00:00 Mechanical Ventilator 06/29/20 23:46 97.9 69 21 129/74 (92) 97 06/29/20 22:48 68 16 40 06/29/20 20:00 67 06/29/20 20:00 97.6 67 15 138/78 (98) 96 06/29/20 20:00 Mechanical Ventilator 06/29/20 20:00 40 06/29/20 19:10 65 21 40 06/29/20 16:00 95.5 96 21 119/78 (92) 96 06/29/20 16:00 40 06/29/20 16:00 Mechanical Ventilator 06/29/20 16:00 Mechanical Ventilator 06/29/20 16:00 66 06/29/20 15:12 64 21 40 06/29/20 12:26 68 06/29/20 12:00 40 06/29/20 12:00 95.7 66 23 124/77 (93) 97 06/29/20 12:00 Mechanical Ventilator 06/29/20 10:48 66 17 40 06/29/20 09:00 71 06/29/20 08:00 Mechanical Ventilator 06/29/20 08:00 96.3 71 21 143/77 (99) 97 06/29/20 08:00 40 06/29/20 07:04 79 29 40 Intake and Output 06/30/20 07/01/20 19:00 07:00 Intake Total 415 ml 360 ml Output Total 500 ml 1125 ml Balance -85 ml -765 ml Free Water 40 ml IV Total 55 ml Tube Feeding 360 ml 320 ml Output Urine Total 300 ml 75 ml Stool Total 200 ml 50 ml Hemodialysis UF 1000 ml # Bowel Movements 3 3 Labs Test 06/28/20 13:13 06/28/20 16:00 06/28/20 18:08 06/29/20 00:26 POC Whole Blood Glucose 100 MG/DL (74-106) 108 MG/DL (74-106) 118 MG/DL (74-106) Stool Occult Blood Positive (NEGATIVE) Test 06/29/20 06:08 06/29/20 11:12 06/29/20 11:24 06/29/20 15:45 White Blood Count 13.5 K/UL (4.8-10.8) Red Blood Count 2.43 M/UL (4.70-6.10) Hemoglobin 7.4 G/DL (14.2-18.0) Hematocrit 23.0 % (42.0-52.0) Mean Corpuscular Volume 95 FL (80-99) Mean Corpuscular Hemoglobin 30.4 PG (27.0-31.0) Mean Corpuscular Hemoglobin Concent 32.1 G/DL (32.0-36.0) Red Cell Distribution Width 15.3 % (11.6-14.8) Platelet Count 88 K/UL (150-450) Mean Platelet Volume 10.6 FL (6.5-10.1) Neutrophils (%) (Auto) % (45.0-75.0) Lymphocytes (%) (Auto) % (20.0-45.0) Monocytes (%) (Auto) % (1.0-10.0) Eosinophils (%) (Auto) % (0.0-3.0) Basophils (%) (Auto) % (0.0-2.0) Differential Total Cells Counted 100 Neutrophils % (Manual) 81 % (45-75) Lymphocytes % (Manual) 5 % (20-45) Monocytes % (Manual) 4 % (1-10) Eosinophils % (Manual) 5 % (0-3) Basophils % (Manual) 0 % (0-2) Band Neutrophils 5 % (0-8) Nucleated Red Blood Cells 1 /100 WBC Platelet Estimate Decreased Platelet Morphology Normal Hypochromasia 1+ Anisocytosis 1+ Sodium Level 134 MMOL/L (136-145) Potassium Level 4.1 MMOL/L (3.5-5.1) Chloride Level 100 MMOL/L (98-107) Carbon Dioxide Level 30 MMOL/L (21-32) Anion Gap 4 mmol/L (5-15) Blood Urea Nitrogen 72 mg/dL (7-18) Creatinine 4.2 MG/DL (0.55-1.30) Estimat Glomerular Filtration Rate 18.1 mL/min (>60) Glucose Level 152 MG/DL (74-106) Calcium Level 8.4 MG/DL (8.5-10.1) Phosphorus Level 3.1 MG/DL (2.5-4.9) Magnesium Level 2.8 MG/DL (1.8-2.4) Total Bilirubin 0.4 MG/DL (0.2-1.0) Aspartate Amino Transf (AST/SGOT) 375 U/L (15-37) Alanine Aminotransferase (ALT/SGPT) 383 U/L (12-78) Alkaline Phosphatase 632 U/L (46-116) Total Protein 6.7 G/DL (6.4-8.2) Albumin 1.5 G/DL (3.4-5.0) Globulin 5.2 g/dL Albumin/Globulin Ratio 0.3 (1.0-2.7) POC Whole Blood Glucose 136 MG/DL (74-106) 137 MG/DL (74-106) Random Vancomycin Level 20.2 ug/mL Test 06/29/20 18:10 06/29/20 23:56 06/30/20 04:57 06/30/20 05:50 POC Whole Blood Glucose 148 MG/DL (74-106) 134 MG/DL (74-106) 136 MG/DL (74-106) White Blood Count 14.2 K/UL (4.8-10.8) Red Blood Count 2.33 M/UL (4.70-6.10) Hemoglobin 7.0 G/DL (14.2-18.0) Hematocrit 22.0 % (42.0-52.0) Mean Corpuscular Volume 94 FL (80-99) Mean Corpuscular Hemoglobin 30.3 PG (27.0-31.0) Mean Corpuscular Hemoglobin Concent 32.1 G/DL (32.0-36.0) Red Cell Distribution Width 15.5 % (11.6-14.8) Platelet Count 82 K/UL (150-450) Mean Platelet Volume 10.2 FL (6.5-10.1) Neutrophils (%) (Auto) % (45.0-75.0) Lymphocytes (%) (Auto) % (20.0-45.0) Monocytes (%) (Auto) % (1.0-10.0) Eosinophils (%) (Auto) % (0.0-3.0) Basophils (%) (Auto) % (0.0-2.0) Differential Total Cells Counted 100 Neutrophils % (Manual) 77 % (45-75) Lymphocytes % (Manual) 6 % (20-45) Monocytes % (Manual) 4 % (1-10) Eosinophils % (Manual) 13 % (0-3) Basophils % (Manual) 0 % (0-2) Band Neutrophils 0 % (0-8) Platelet Estimate Decreased Platelet Morphology Giant Platelets Occasional Hypochromasia 1+ Anisocytosis 1+ Sodium Level 135 MMOL/L (136-145) Potassium Level 4.1 MMOL/L (3.5-5.1) Chloride Level 100 MMOL/L (98-107) Carbon Dioxide Level 31 MMOL/L (21-32) Anion Gap 4 mmol/L (5-15) Blood Urea Nitrogen 83 mg/dL (7-18) Creatinine 4.6 MG/DL (0.55-1.30) Estimat Glomerular Filtration Rate 16.2 mL/min (>60) Glucose Level 139 MG/DL (74-106) Calcium Level 8.5 MG/DL (8.5-10.1) Total Bilirubin 0.4 MG/DL (0.2-1.0) Aspartate Amino Transf (AST/SGOT) 343 U/L (15-37) Alanine Aminotransferase (ALT/SGPT) 344 U/L (12-78) Alkaline Phosphatase 633 U/L (46-116) Total Creatine Kinase 27 U/L (26-308) Total Protein 6.7 G/DL (6.4-8.2) Albumin 1.5 G/DL (3.4-5.0) Globulin 5.2 g/dL Albumin/Globulin Ratio 0.3 (1.0-2.7) Test 06/30/20 12:52 06/30/20 18:48 07/01/20 04:40 07/01/20 05:00 POC Whole Blood Glucose 102 MG/DL (74-106) 106 MG/DL (74-106) 96 MG/DL (74-106) White Blood Count 15.6 K/UL (4.8-10.8) Red Blood Count 2.18 M/UL (4.70-6.10) Hemoglobin 6.6 G/DL (14.2-18.0) Hematocrit 20.8 % (42.0-52.0) Mean Corpuscular Volume 96 FL (80-99) Mean Corpuscular Hemoglobin 30.2 PG (27.0-31.0) Mean Corpuscular Hemoglobin Concent 31.6 G/DL (32.0-36.0) Red Cell Distribution Width 15.0 % (11.6-14.8) Platelet Count 67 K/UL (150-450) Mean Platelet Volume 10.9 FL (6.5-10.1) Neutrophils (%) (Auto) % (45.0-75.0) Lymphocytes (%) (Auto) % (20.0-45.0) Monocytes (%) (Auto) % (1.0-10.0) Eosinophils (%) (Auto) % (0.0-3.0) Basophils (%) (Auto) % (0.0-2.0) Prothrombin Time 12.0 SEC (9.30-11.50) Prothromb Time International Ratio 1.1 (0.9-1.1) Activated Partial Thromboplast Time 32 SEC (23-33) Sodium Level 135 MMOL/L (136-145) Potassium Level 4.2 MMOL/L (3.5-5.1) Chloride Level 101 MMOL/L (98-107) Carbon Dioxide Level 35 MMOL/L (21-32) Anion Gap -1 mmol/L (5-15) Blood Urea Nitrogen 53 mg/dL (7-18) Creatinine 3.2 MG/DL (0.55-1.30) Estimat Glomerular Filtration Rate 24.7 mL/min (>60) Glucose Level 112 MG/DL (74-106) Uric Acid 3.1 MG/DL (2.6-7.2) Calcium Level 8.5 MG/DL (8.5-10.1) Phosphorus Level 3.0 MG/DL (2.5-4.9) Magnesium Level 2.6 MG/DL (1.8-2.4) Total Bilirubin 0.3 MG/DL (0.2-1.0) Aspartate Amino Transf (AST/SGOT) 213 U/L (15-37) Alanine Aminotransferase (ALT/SGPT) 273 U/L (12-78) Alkaline Phosphatase 523 U/L (46-116) C-Reactive Protein, Quantitative 10.3 mg/dL (0.00-0.90) Total Protein 6.6 G/DL (6.4-8.2) Albumin 1.5 G/DL (3.4-5.0) Globulin 5.1 g/dL Albumin/Globulin Ratio 0.3 (1.0-2.7) Height (Feet): 5 Height (Inches): 8.00 Weight (Pounds): 143 Objective PHYSICAL EXAMINATION: VITAL SIGNS: reviewed HEAD AND NECK: Show status post tracheostomy. vent+ LUNGS: Coarse rhonchi and basilar rales. CARDIOVASCULAR: Shows irregular S1 and S2 with no gallop. ABDOMEN: Soft. Status post G-tube. EXTREMITIES: No pitting edema.++Left Jose Epperson MD Jul 01, 2020 06:53
--- NOTE | 2020-07-01 07:30 | NUR ---
NURSE NOTES: Received pt from [facility], pt is awake and confused, pt is on ventilator AC 16 TV 500 FIO2 40 PEEP 5, no stress noted. pt has intact iv access RAC 20g SL. Pt has Sparrow cath in place is working well. pt has g tube in place is working well. Dr Shane visited pt and is aware about HB 6.6 HCT 20.6 PLT 67 and other lab results and V/S, MD F/U. all needs attended, bed is locked and is in the lowest position, call light within easy reach. will continue to monitor.
[2020-07-01 08:00] VITALS: BP 104/63
[2020-07-01] MEDS: Ascorbic Acid 500mg tab GT SCH (09:31)
--- NOTE | 2020-07-01 09:34 | Pulmonology Progress Note ---
Subjective ROS Limited/Unobtainable: Yes Interval Events: FiO2 now 40%; Remains on vent. Constitutional: Denies: fever HEENT: Repors: no symptoms Respiratory: Reports: no symptoms Cardiovascular: Reports: no symptoms Gastrointestinal/Abdominal: Reports: diarrhea Genitourinary: Reports: no symptoms Allergies: Coded Allergies: No Known Allergies (Unverified , 06/13/20) Objective Last 24 Hour Vital Signs Date Time Temp Pulse Resp B/P (MAP) Pulse Ox O2 Delivery O2 Flow Rate FiO2 07/01/20 08:00 Mechanical Ventilator 07/01/20 08:00 40 07/01/20 08:00 97.5 74 21 104/63 (77) 95 07/01/20 07:00 74 25 50 07/01/20 04:01 74 07/01/20 04:00 Mechanical Ventilator 07/01/20 04:00 40 07/01/20 04:00 97.5 76 20 121/72 (88) 100 07/01/20 03:25 74 21 70 07/01/20 00:00 64 07/01/20 00:00 96.9 63 20 122/79 (93) 100 07/01/20 00:00 40 07/01/20 00:00 Mechanical Ventilator 06/30/20 23:30 62 18 70 06/30/20 20:00 Mechanical Ventilator 06/30/20 20:00 100 06/30/20 20:00 97.0 59 18 118/71 (87) 100 06/30/20 20:00 58 06/30/20 19:15 58 17 100 06/30/20 16:57 69 17 125/79 (94) 100 06/30/20 16:42 71 17 126/80 (95) 100 06/30/20 16:37 73 17 133/80 (97) 100 06/30/20 16:32 73 17 139/86 (103) 100 06/30/20 16:27 69 17 144/85 (104) 100 06/30/20 16:22 61 14 132/82 (99) 100 06/30/20 16:17 61 15 127/80 (96) 100 06/30/20 16:05 61 18 133/84 100 06/30/20 16:00 Mechanical Ventilator 06/30/20 16:00 96.1 62 20 133/84 (100) 100 06/30/20 16:00 100 06/30/20 15:57 61 18 06/30/20 15:35 68 20 129/71 96 06/30/20 15:13 67 06/30/20 15:00 71 20 100 06/30/20 12:00 95.4 67 20 129/71 (90) 97 06/30/20 12:00 Mechanical Ventilator 06/30/20 12:00 40 06/30/20 11:53 66 06/30/20 11:10 66 24 40 Intake and Output 06/30/20 07/01/20 19:00 07:00 Intake Total 415 ml 360 ml Output Total 500 ml 1125 ml Balance -85 ml -765 ml Free Water 40 ml IV Total 55 ml Tube Feeding 360 ml 320 ml Output Urine Total 300 ml 75 ml Stool Total 200 ml 50 ml Hemodialysis UF 1000 ml # Bowel Movements 3 3 General Appearance: no acute distress HEENT: status post trach Respiratory: chest wall non-tender, lungs clear Cardiovascular: normal peripheral pulses, normal rate Abdomen: normal bowel sounds Extremities: no cyanosis Laboratory Tests 06/30/20 12:52: POC Whole Blood Glucose 102 06/30/20 18:48: POC Whole Blood Glucose 106 07/01/20 04:40: White Blood Count 15.6H, Red Blood Count 2.18L, Hemoglobin 6.6*L, Hematocrit 20.8L, Mean Corpuscular Volume 96, Mean Corpuscular Hemoglobin 30.2, Mean Corpuscular Hemoglobin Concent 31.6L, Red Cell Distribution Width 15.0H, Platelet Count 67L, Mean Platelet Volume 10.9H, Neutrophils (%) (Auto) , Lymphocytes (%) (Auto) , Monocytes (%) (Auto) , Eosinophils (%) (Auto) , Basophils (%) (Auto) , Neutrophils % (Manual) [Pending], Lymphocytes % (Manual) [Pending], Platelet Estimate [Pending], Platelet Morphology [Pending], Prothrombin Time 12.0H, Prothromb Time International Ratio 1.1, Activated Partial Thromboplast Time 32, Sodium Level 135L, Potassium Level 4.2, Chloride Level 101, Carbon Dioxide Level 35H, Anion Gap -1L, Blood Urea Nitrogen 53H, Creatinine 3.2H, Estimat Glomerular Filtration Rate 24.7, Glucose Level 112H, Uric Acid 3.1, Calcium Level 8.5, Phosphorus Level 3.0, Magnesium Level 2.6H, Total Bilirubin 0.3, Aspartate Amino Transf (AST/SGOT) 213H, Alanine Aminotransferase (ALT/SGPT) 273H, Alkaline Phosphatase 523H, C-Reactive Protein, Quantitative 10.3H, Total Protein 6.6, Albumin 1.5L, Globulin 5.1, Albumin/Globulin Ratio 0.3L, Thyroid Stimulating Hormone (TSH) 14.453H, Free Thyroxine 0.86, Cytomegalovirus DNA Qual (PCR) [Pending] 07/01/20 05:00: POC Whole Blood Glucose 96 07/01/20 07:55: HIV (1&2) Antibody Rapid Negative Current Medications Medications (Trade) Dose Ordered Sig/Maryjane Route PRN Reason Start Time Stop Time Status Last Admin Dose Admin Acetaminophen (Tylenol) 650 mg Q4H PRN GT Mild Pain (Pain Scale 1-3) 06/18/20 23:00 07/18/20 22:59 Acetaminophen (Tylenol) 650 mg Q4HR PRN GT FEVER 06/14/20 09:45 07/14/20 09:44 06/19/20 20:45 Aluminum Hydroxide (Amphojel) 1,920 mg Q6H GT 06/17/20 10:00 07/17/20 09:59 07/01/20 09:31 Ascorbic Acid (Vitamin C) 500 mg DAILY GT 07/01/20 09:00 07/31/20 08:59 07/01/20 09:31 Chlorhexidine Gluconate (Inés-Hex 2%) 1 applic DAILY@2000 TOPIC 06/21/20 20:00 09/19/20 19:59 06/30/20 20:24 Dextrose (Dextrose 50%) 25 ml Q30M PRN IV Hypoglycemia 06/28/20 18:30 09/26/20 18:29 Dextrose (Dextrose 50%) 50 ml Q30M PRN IV Hypoglycemia 06/28/20 18:30 09/26/20 18:29 Epoetin Bonilla (Epoetin Bonilla-EPBX(NON ESRD)) 10,000 unit TUE-WED-TUE SUBQ 06/18/20 21:00 09/16/20 20:59 06/30/20 20:48 Haloperidol Lactate (Haldol) 5 mg Q6H PRN IM Agitation 06/21/20 23:15 08/05/20 23:14 06/25/20 18:17 Insulin Aspart (NovoLOG) EVERY 6 HOURS SUBQ 06/29/20 00:00 09/27/20 00:00 06/29/20 18:13 Lansoprazole (Prevacid) 30 mg Q12HR GT 06/30/20 21:00 07/30/20 20:59 07/01/20 09:30 Levothyroxine Sodium (Synthroid) 50 mcg DAILY@0630 GT 07/01/20 06:30 07/31/20 06:29 07/01/20 05:58 Vancomycin HCl (Vanco pharmacy to dose) 1 ea DAILY PRN MISC Per rx protocol 06/27/20 11:30 07/18/20 23:59 Assessment/Plan Problems: (1) Acute respiratory failure Assessment/Plan IMPRESSION: 1. Chronic respiratory failure. 2. Hypoxemia. 3. Respiratory acidosis. 4. Anemia. 5. Leukocytosis. 6. DVT 7. S/p code blue 06/19/20 DISCUSSION: The patient's x-ray is markedly abnormal with bilateral infiltrates. I suspect he has pulmonary fibrosis. Latest CXR is unchanged to slightly improved COVID 19 pcr and antigen both negative No anticoagulation for DVT due to anemia S/p IVC filter placement Continue assist-control mechanical ventilation; currently FiO2 40%; SaO2 100%, broad-spectrum antibiotics. Transfusion as needed. Will decrease PEEP to 5; S/p HD WIll decrease FiO2 as tolerated S/p permacath I will follow carefully. Hugo Carl Omar Syed MD Jul 01, 2020 09:34
--- NOTE | 2020-07-01 11:02 | NUR ---
NURSE NOTES: blood transfusion started with BP 116/69 HR 73 T 96.4. Will continue to close monitoring.
--- NOTE | 2020-07-01 11:13 | Surgery Progress Note ---
Surgery Progress Note Subjective Additional Comments plt low h/h low transfusing prbc exam stable awake and follows commands on vent dressings going well Objective Last 24 Hour Vital Signs Date Time Temp Pulse Resp B/P (MAP) Pulse Ox O2 Delivery O2 Flow Rate FiO2 07/01/20 08:00 Mechanical Ventilator 07/01/20 08:00 40 07/01/20 08:00 97.5 74 21 104/63 (77) 95 07/01/20 07:00 74 25 50 07/01/20 04:01 74 07/01/20 04:00 Mechanical Ventilator 07/01/20 04:00 40 07/01/20 04:00 97.5 76 20 121/72 (88) 100 07/01/20 03:25 74 21 70 07/01/20 00:00 64 07/01/20 00:00 96.9 63 20 122/79 (93) 100 07/01/20 00:00 40 07/01/20 00:00 Mechanical Ventilator 06/30/20 23:30 62 18 70 06/30/20 20:00 Mechanical Ventilator 06/30/20 20:00 100 06/30/20 20:00 97.0 59 18 118/71 (87) 100 06/30/20 20:00 58 06/30/20 19:15 58 17 100 06/30/20 16:57 69 17 125/79 (94) 100 06/30/20 16:42 71 17 126/80 (95) 100 06/30/20 16:37 73 17 133/80 (97) 100 06/30/20 16:32 73 17 139/86 (103) 100 06/30/20 16:27 69 17 144/85 (104) 100 06/30/20 16:22 61 14 132/82 (99) 100 06/30/20 16:17 61 15 127/80 (96) 100 06/30/20 16:05 61 18 133/84 100 06/30/20 16:00 Mechanical Ventilator 06/30/20 16:00 96.1 62 20 133/84 (100) 100 06/30/20 16:00 100 06/30/20 15:57 61 18 06/30/20 15:35 68 20 129/71 96 06/30/20 15:13 67 06/30/20 15:00 71 20 100 06/30/20 12:00 95.4 67 20 129/71 (90) 97 06/30/20 12:00 Mechanical Ventilator 06/30/20 12:00 40 06/30/20 11:53 66 I&O Intake and Output 06/30/20 07/01/20 19:00 07:00 Intake Total 415 ml 360 ml Output Total 500 ml 1125 ml Balance -85 ml -765 ml Free Water 40 ml IV Total 55 ml Tube Feeding 360 ml 320 ml Output Urine Total 300 ml 75 ml Stool Total 200 ml 50 ml Hemodialysis UF 1000 ml # Bowel Movements 3 3 Dressing: saturated Cardiovascular: RSR Respiratory: decreased breath sounds Abdomen: non-tender, present bowel sounds, other Extremities: no edema, no tenderness, no cyanosis, other Laboratory Tests Test 06/30/20 12:52 06/30/20 18:48 07/01/20 04:40 07/01/20 05:00 POC Whole Blood Glucose 102 MG/DL (74-106) 106 MG/DL (74-106) 96 MG/DL (74-106) White Blood Count 15.6 K/UL (4.8-10.8) H Red Blood Count 2.18 M/UL (4.70-6.10) L Hemoglobin 6.6 G/DL (14.2-18.0) *L Hematocrit 20.8 % (42.0-52.0) L Mean Corpuscular Volume 96 FL (80-99) Mean Corpuscular Hemoglobin 30.2 PG (27.0-31.0) Mean Corpuscular Hemoglobin Concent 31.6 G/DL (32.0-36.0) L Red Cell Distribution Width 15.0 % (11.6-14.8) H Platelet Count 67 K/UL (150-450) L Mean Platelet Volume 10.9 FL (6.5-10.1) H Neutrophils (%) (Auto) % (45.0-75.0) Lymphocytes (%) (Auto) % (20.0-45.0) Monocytes (%) (Auto) % (1.0-10.0) Eosinophils (%) (Auto) % (0.0-3.0) Basophils (%) (Auto) % (0.0-2.0) Differential Total Cells Counted 100 Neutrophils % (Manual) 74 % (45-75) Lymphocytes % (Manual) 7 % (20-45) L Monocytes % (Manual) 10 % (1-10) Eosinophils % (Manual) 7 % (0-3) H Basophils % (Manual) 0 % (0-2) Band Neutrophils 2 % (0-8) Platelet Estimate Decreased L Platelet Morphology Normal Hypochromasia 1+ Anisocytosis 1+ Prothrombin Time 12.0 SEC (9.30-11.50) H Prothromb Time International Ratio 1.1 (0.9-1.1) Activated Partial Thromboplast Time 32 SEC (23-33) Sodium Level 135 MMOL/L (136-145) L Potassium Level 4.2 MMOL/L (3.5-5.1) Chloride Level 101 MMOL/L (98-107) Carbon Dioxide Level 35 MMOL/L (21-32) H Anion Gap -1 mmol/L (5-15) L Blood Urea Nitrogen 53 mg/dL (7-18) H Creatinine 3.2 MG/DL (0.55-1.30) H Estimat Glomerular Filtration Rate 24.7 mL/min (>60) Glucose Level 112 MG/DL (74-106) H Uric Acid 3.1 MG/DL (2.6-7.2) Calcium Level 8.5 MG/DL (8.5-10.1) Phosphorus Level 3.0 MG/DL (2.5-4.9) Magnesium Level 2.6 MG/DL (1.8-2.4) H Total Bilirubin 0.3 MG/DL (0.2-1.0) Aspartate Amino Transf (AST/SGOT) 213 U/L (15-37) H Alanine Aminotransferase (ALT/SGPT) 273 U/L (12-78) H Alkaline Phosphatase 523 U/L (46-116) H C-Reactive Protein, Quantitative 10.3 mg/dL (0.00-0.90) H Total Protein 6.6 G/DL (6.4-8.2) Albumin 1.5 G/DL (3.4-5.0) L Globulin 5.1 g/dL Albumin/Globulin Ratio 0.3 (1.0-2.7) L Thyroid Stimulating Hormone (TSH) 14.453 uiU/mL (0.358-3.740) Free Thyroxine 0.86 NG/DL (0.76-1.46) Cytomegalovirus DNA Qual (PCR) Pending Test 07/01/20 07:55 HIV (1&2) Antibody Rapid Negative (NEGATIVE) Plan Problems: (1) Leukocytosis Assessment & Plan: 54-year-old male multiple comorbidities admitted for abnormal chest x-ray potentially pneumonia leukocytosis abnormal labs. Patient identified to have a prior left BKA surgical sutures still in place as well as a surgical sacral wound with sutures in place. Considerations of dehiscence being identified and potential etiology of infection. After evaluation unlikely source of infection though the sacral wound was looked to be dehiscing at the inferior aspect. No acute surgical mention at this time We will discussed care plan with PCP Recommend follow-up with initial surgeon considerations of removal of surgical sutures Care plan initiated worsening lft's US ordered ? shayla Extensive airspace consolidations at the lung bases consistent with severe multifocal infiltrate. Associated, large bilateral pleural effusions. Evaluation of the abdominal viscera is markedly suboptimal due to poor CT technique and lack of intravenous contrast. No definite hepatic lesion. No definite cholelithiasis. Mild colon wall thickening. The spleen, pancreas, and adrenal glands are not visualized well enough reliable assessment. No definite hydronephrosis. The kidneys are hyperdense, correlate for medical renal disease. No nephrolithiasis. Sparrow catheter within a decompressed urinary bladder. Moderate diverticulosis, without acute diverticulitis. No small bowel obstruction. PEG tube presumably within the stomach. Atherosclerotic calcifications of the aorta. Low-attenuation of the intravascular blood pool, correlate for anemia. IVC filter, incidentally noted. Air within the subcutaneous fat overlying the sacrum with skin thickening, correlate with physical exam for sacral decubitus ulcer. Degenerative changes of the spine. Bilateral pars defects at L5 without anterolisthesis of L5 on S1. IMPRESSION: Extensive airspace consolidations at the lung bases consistent with severe multifocal infiltrate. Associated, large bilateral pleural effusions. Evaluation of the abdominal viscera is markedly suboptimal due to poor CT technique and lack of intravenous contrast. Moderate diverticulosis, without acute diverticulitis. No small bowel obstruction. PEG tube presumably within the stomach. Note, if there is suspicion for colitis consider repeat scan with improved CT technique/intravenous contrast. Mild gallbladder wall thickening without definite evidence of cholelithiasis. Air within the subcutaneous fat overlying the sacrum with skin thickening, correlate with physical exam for sacral decubitus ulcer. Bilateral pars defects at L5. The kidneys are hyperdense, correlate for medical renal disease.. There is prompt uptake within the liver with washout of radiotracer from the liver on subsequent imaging. There is excretion into the biliary ducts. Gallbladder activity is present in a timely fashion indicating patency of the cystic duct. Very scant bowel activity is demonstrated concerning for common bile duct obstruction or sphincter dysfunction. IMPRESSION: No evidence to suggest cholecystitis. Gallbladder activity is present in a timely fashion indicating patency of the cystic duct. Very little radiotracer noted in the small bowel. Correlate with LFTs as a degree of common bile duct obstruction or sphincter dysfunction not excluded. Consider further evaluation with MRCP. (2) Surgical wound dehiscence Assessment & Plan: Patient identified to have a left BKA surgical sutures in place flap looks like it is taken well no signs of infection at this time no signs of seroma hematoma or drainage. Unknown exact length or duration of potential prior left BKA and until then recommend leaving sutures in place as it may be too early though it does look well-healed. If able to obtain prior records we will be happy to remove sutures otherwise will need follow-up with primary surgeon furthermore patient identified to have a surgical wound in the sacral area seems he probably potentially had a stage IV sacral decubitus ulcer that had debridement and primary closure. Fortunately. Sutures are still in place and it looks like the inferior aspect may be slowly dehiscing. There is no significant drainage no foul odor no signs of active infection unknown if bone was palpable prior. Can consider removing surgical sutures but again would recommend obtaining prior records of possible prior to doing so. Also recommend following up with primary surgeon as this may need ongoing continued care. Will follow with recommendations and as information is available. Continue current care plan. Wash wounds daily with normal saline. Apply skin protectant Optifoam dressing. Turn every 2 hours. Offload pressure with pillows and air mattress. Nutritional optimization. Worsening leukocytosis. Patient continues to have dehiscence of the prior primarily closed sacral decubitus ulcer. The sutures are was nearly torn out and the wound is opening and saturating with stool with bowel movements now has rectal tube. Unfortunately I see significant concern given dehiscence and therefore sutures were cut at the bedside and wound immediately opened under some tension. Underlying Vicryl sutures identified. There is some backbleeding some granulation tissue but definitely no take or closure of the stage IV sacral decubitus ulcer that was identified. Nonexcisional debridement done with gauze and jorge layer of slough and biofilm was removed wound was cleaned packing dressings applied. No abscess no purulent drainage unlikely etiology of infection. (3) History of left below knee amputation (4) Malnutrition Assessment & Plan: DAILY ESTIMATED NEEDS: Needs based on Wound, critical care, underweight/ 55.5kg 25-33 (25-35 w/ HD) kcals/kg 5173-6164 (7537-8568) total kcals 1.25-2 g protein/kg 69-111 g total protein 25-30 mL/kg 5841-7084 total fluid mLs NUTRITION DIAGNOSIS: * Swallowing difficulty R/T respiratory status as evidenced by pt is trach/vent dep, PEG dep. CURRENT TF: Nepro @ 40ml/hr x24 hrs ENTERAL NUTRITION RECOMMENDATIONS: Nepro @ 40ml/hr x 24 hrs to provide 960ml, 1728kcal, 78g prot, 698ml free water * Maintain current TF * HOB over 30 degrees/ water flush per MD ADDITIONAL RECOMMENDATIONS: * Per SNF: HT=69" MG=072yul -> rec daily calibrated bedscale wt * Monitor lytes: elev K-> now wnl, phos now low * Wound healing: RANDY BID + Nephrovite 1 tab qdaily * Monitor for bm, last bm 06/19, now 06/24 * W/ HD rec to add Prosource 1 pack qdaily for added 11g pro/day. (5) Anemia (6) KERRI (acute kidney injury) (7) Acute respiratory failure (8) Hyperkalemia (9) Anemia (10) Abnormal laboratory test result (11) Chronic respiratory failure Azar Mares Jul 01, 2020 11:13
--- NOTE | 2020-07-01 11:17 | NUR ---
RADIOLOGY DEPT., CHEST X-RAY DONE.-P.DYE
[2020-07-01 12:00] VITALS: BP 109/61
--- NOTE | 2020-07-01 12:44 | Cardiac Electrophysiology PN ---
Assessment/Plan Assessment/Plan 1. Vent-dependent respirator failure. S/P tracheostomy. On 40% Fio2 Chest x-ray extensive bilateral pneumonia or ARDS. Off isolation EF 50%. Ruled out for NM. BNP 84276. On iv Abx 2. Sinus Tachycardia, likely due to respiratory failure and sepsis 3. Right femoral vein DVT. S/P IVC filter 06/18 4. Dysphagia, status post PEG placement. 5. Renal failure. S/P Right IJ Iron and on HD by Dr. Honeycutt. 6. Severe anemia, S/P multiple PRBCs for hematuria 7. High LFTs, s/p CT abdomen and pelvis and HIDA FU Dr Stringer 8. Transient bradycardia, resolved DW RN Subjective Subjective On the Vent off isolation. On 40% Fio2 and PEEP 5. S/P IVC filter S/P Right IJ Iron and first HD 06/21/20 Had [employer] as HR dropped to 30 at 4 am 06/25/20 Got PRBC 06/27 and 06/28 as Hb dropped to 5.6 likley due to hematuria as was pul ling on the Sparrow Opens eyes in restraints in NAD Hb down to 6.6 again and getting 2 units of PRBC Objective Last 24 Hour Vital Signs Date Time Temp Pulse Resp B/P (MAP) Pulse Ox O2 Delivery O2 Flow Rate FiO2 07/01/20 12:00 40 07/01/20 08:00 Mechanical Ventilator 07/01/20 08:00 40 07/01/20 08:00 97.5 74 21 104/63 (77) 95 07/01/20 07:45 71 07/01/20 07:00 74 25 50 07/01/20 04:01 74 07/01/20 04:00 Mechanical Ventilator 07/01/20 04:00 40 07/01/20 04:00 97.5 76 20 121/72 (88) 100 07/01/20 03:25 74 21 70 07/01/20 00:00 64 07/01/20 00:00 96.9 63 20 122/79 (93) 100 07/01/20 00:00 40 07/01/20 00:00 Mechanical Ventilator 06/30/20 23:30 62 18 70 06/30/20 20:00 Mechanical Ventilator 06/30/20 20:00 100 06/30/20 20:00 97.0 59 18 118/71 (87) 100 06/30/20 20:00 58 06/30/20 19:15 58 17 100 06/30/20 16:57 69 17 125/79 (94) 100 06/30/20 16:42 71 17 126/80 (95) 100 06/30/20 16:37 73 17 133/80 (97) 100 06/30/20 16:32 73 17 139/86 (103) 100 06/30/20 16:27 69 17 144/85 (104) 100 06/30/20 16:22 61 14 132/82 (99) 100 06/30/20 16:17 61 15 127/80 (96) 100 06/30/20 16:05 61 18 133/84 100 06/30/20 16:00 Mechanical Ventilator 06/30/20 16:00 96.1 62 20 133/84 (100) 100 06/30/20 16:00 100 06/30/20 15:57 61 18 06/30/20 15:35 68 20 129/71 96 06/30/20 15:13 67 06/30/20 15:00 71 20 100 Intake and Output 06/30/20 07/01/20 19:00 07:00 Intake Total 415 ml 360 ml Output Total 500 ml 1125 ml Balance -85 ml -765 ml Free Water 40 ml IV Total 55 ml Tube Feeding 360 ml 320 ml Output Urine Total 300 ml 75 ml Stool Total 200 ml 50 ml Hemodialysis UF 1000 ml # Bowel Movements 3 3 Laboratory Tests Test 06/30/20 12:52 06/30/20 18:48 07/01/20 04:40 07/01/20 05:00 POC Whole Blood Glucose 102 MG/DL (74-106) 106 MG/DL (74-106) 96 MG/DL (74-106) White Blood Count 15.6 K/UL (4.8-10.8) H Red Blood Count 2.18 M/UL (4.70-6.10) L Hemoglobin 6.6 G/DL (14.2-18.0) *L Hematocrit 20.8 % (42.0-52.0) L Mean Corpuscular Volume 96 FL (80-99) Mean Corpuscular Hemoglobin 30.2 PG (27.0-31.0) Mean Corpuscular Hemoglobin Concent 31.6 G/DL (32.0-36.0) L Red Cell Distribution Width 15.0 % (11.6-14.8) H Platelet Count 67 K/UL (150-450) L Mean Platelet Volume 10.9 FL (6.5-10.1) H Neutrophils (%) (Auto) % (45.0-75.0) Lymphocytes (%) (Auto) % (20.0-45.0) Monocytes (%) (Auto) % (1.0-10.0) Eosinophils (%) (Auto) % (0.0-3.0) Basophils (%) (Auto) % (0.0-2.0) Differential Total Cells Counted 100 Neutrophils % (Manual) 74 % (45-75) Lymphocytes % (Manual) 7 % (20-45) L Monocytes % (Manual) 10 % (1-10) Eosinophils % (Manual) 7 % (0-3) H Basophils % (Manual) 0 % (0-2) Band Neutrophils 2 % (0-8) Platelet Estimate Decreased L Platelet Morphology Normal Hypochromasia 1+ Anisocytosis 1+ Prothrombin Time 12.0 SEC (9.30-11.50) H Prothromb Time International Ratio 1.1 (0.9-1.1) Activated Partial Thromboplast Time 32 SEC (23-33) Sodium Level 135 MMOL/L (136-145) L Potassium Level 4.2 MMOL/L (3.5-5.1) Chloride Level 101 MMOL/L (98-107) Carbon Dioxide Level 35 MMOL/L (21-32) H Anion Gap -1 mmol/L (5-15) L Blood Urea Nitrogen 53 mg/dL (7-18) H Creatinine 3.2 MG/DL (0.55-1.30) H Estimat Glomerular Filtration Rate 24.7 mL/min (>60) Glucose Level 112 MG/DL (74-106) H Uric Acid 3.1 MG/DL (2.6-7.2) Calcium Level 8.5 MG/DL (8.5-10.1) Phosphorus Level 3.0 MG/DL (2.5-4.9) Magnesium Level 2.6 MG/DL (1.8-2.4) H Total Bilirubin 0.3 MG/DL (0.2-1.0) Aspartate Amino Transf (AST/SGOT) 213 U/L (15-37) H Alanine Aminotransferase (ALT/SGPT) 273 U/L (12-78) H Alkaline Phosphatase 523 U/L (46-116) H C-Reactive Protein, Quantitative 10.3 mg/dL (0.00-0.90) H Total Protein 6.6 G/DL (6.4-8.2) Albumin 1.5 G/DL (3.4-5.0) L Globulin 5.1 g/dL Albumin/Globulin Ratio 0.3 (1.0-2.7) L Thyroid Stimulating Hormone (TSH) 14.453 uiU/mL (0.358-3.740) Free Thyroxine 0.86 NG/DL (0.76-1.46) Cytomegalovirus DNA Qual (PCR) Pending Test 07/01/20 07:55 07/01/20 12:15 HIV (1&2) Antibody Rapid Negative (NEGATIVE) POC Whole Blood Glucose 113 MG/DL (74-106) H Objective HEAD AND NECK: Status post tracheostomy. Right IJ Iron in place LUNGS: Coarse rhonchi and basilar rales. CARDIOVASCULAR: Irregular S1 and S2 with no gallop. ABDOMEN: Soft. Status post G-tube. EXTREMITIES: No pitting edema. Lance Mcguire MD Jul 01, 2020 12:44
--- NOTE | 2020-07-01 13:06 | Nephrology Progress Note ---
Assessment/Plan Problem List: (1) KERRI (acute kidney injury) (2) Acute respiratory failure (3) Chronic respiratory failure (4) Anemia (5) Hyperkalemia Assessment Acute on chronic renal failure Anemia Respiratory failure acute on chronic Respiratory acidosis and hypoxia Hyperkalemia Plan July 01: Labs reviewed. Dialyzed yesterday. Patient has a permacath. Continue per consultants. Worsening anemia noted, deferred to children's nursery assistant. June 30: Labs reviewed. Due for dialysis today. Patient appears to be needing hemodialysis for sometimes incoming future. Will arrange for placement of a tunneled catheter. Continue per consultants. Anemia management per children's nursery assistant. June 29: Labs reviewed. Hemoglobin is higher. Next hemodialysis tomorrow June 30. Continue per consultants. June 28: Labs reviewed. Last dialyzed June 26. Hemoglobin remains low. Defer transfusion and work-up to children's nursery assistant. Continue to follow-up renal parameters. June 27: Labs reviewed. Dialyzed yesterday. Hemoglobin low. Due for transfusion. Continue to monitor renal parameters and hemoglobin and hematocrit. June 26: Labs reviewed. Due for dialysis today. Continue per consultants. Continue to monitor liver enzymes. June 25: Labs reviewed. Will dialyze tomorrow. Continue per consultants. Check liver function enzymes. June 24: Dialyzed yesterday. Labs reviewed. Medication list reviewed. Liver enzymes remains elevated. Continue to monitor electrolytes renal parameters and LFTs. Hemodialysis in a.m. if needed. June 23: Patient will be dialyzed today again. Labs reviewed. Serum creatinine higher. Elevated liver enzymes persist. Patient full code. Continue per consultants. June 22: Patient dialyzed yesterday. Labs reviewed. Liver function tests and enzymes are elevated. Continue to monitor renal parameters and LFTs. Continue per consultants. Patient full code. June 21: Patient due for dialysis today. Labs and medication list reviewed. Discussed with RN. Continue to monitor renal parameters. June 20: Patient had an episode of bradycardia last night. Serum creatinine rising. Patient continues to have respiratory acidosis. Discussed with MAX Bond. Will order non tunneled dialysis catheter placement for initiation of dialysis treatment due to acute renal failure. Patient remains full code. I favor comfort care if bioethics consultation is sought and physicians on the team agreeable. June 19: No CHEM panel today. Low hemoglobin as of yesterday's lab results. Anemia management per Dr. Cueva. Continue to monitor renal parameters. June 18: Labs are reviewed. Hemoglobin lower. Creatinine higher. ABG not done yet. Patient full code. Continue per consultants. June 17: Labs reviewed. Hemoglobin low. Creatinine up to 3. Phosphorus levels elevated. Will start Amphojel via GT tube as a phosphorus binder. Monitor renal parameters. Check ABG. Continue per consultants. June 16: Labs reviewed. Serum creatinine mariana to 2.6. Abnormal electrolytes now normalized. Continue to monitor renal parameters and avoid nephrotoxic's. Continue to adjust pulmonary status as possible. June 15: ABG pH of 7.1. 2D echo suggestive of ejection fraction of 50%. Labs reviewed. Serum creatinine mariana. Will hold IV Lasix. Will give Kayexalate for high potassium and 1 amp of sodium bicarb. Albumin IV bolus given. Continue per consultants. Continue to monitor renal parameters. Kidney ultrasound ordered. June 14: As follow Pulmonary evaluation Sparrow catheter Hold IV fluid IV fluid, until 2D echo results available Kayexalate for high potassium IV Protonix 2D echocardiogram Anemia work-up More labs ordered Subjective ROS Limited/Unobtainable: Yes Objective Objective Last 24 Hour Vital Signs Date Time Temp Pulse Resp B/P (MAP) Pulse Ox O2 Delivery O2 Flow Rate FiO2 07/01/20 12:00 40 07/01/20 08:00 Mechanical Ventilator 07/01/20 08:00 40 07/01/20 08:00 97.5 74 21 104/63 (77) 95 07/01/20 07:45 71 07/01/20 07:00 74 25 50 07/01/20 04:01 74 07/01/20 04:00 Mechanical Ventilator 07/01/20 04:00 40 07/01/20 04:00 97.5 76 20 121/72 (88) 100 07/01/20 03:25 74 21 70 07/01/20 00:00 64 07/01/20 00:00 96.9 63 20 122/79 (93) 100 07/01/20 00:00 40 07/01/20 00:00 Mechanical Ventilator 06/30/20 23:30 62 18 70 06/30/20 20:00 Mechanical Ventilator 06/30/20 20:00 100 06/30/20 20:00 97.0 59 18 118/71 (87) 100 06/30/20 20:00 58 06/30/20 19:15 58 17 100 06/30/20 16:57 69 17 125/79 (94) 100 06/30/20 16:42 71 17 126/80 (95) 100 06/30/20 16:37 73 17 133/80 (97) 100 06/30/20 16:32 73 17 139/86 (103) 100 06/30/20 16:27 69 17 144/85 (104) 100 06/30/20 16:22 61 14 132/82 (99) 100 06/30/20 16:17 61 15 127/80 (96) 100 06/30/20 16:05 61 18 133/84 100 06/30/20 16:00 Mechanical Ventilator 06/30/20 16:00 96.1 62 20 133/84 (100) 100 06/30/20 16:00 100 06/30/20 15:57 61 18 06/30/20 15:35 68 20 129/71 96 06/30/20 15:13 67 06/30/20 15:00 71 20 100 Intake and Output 06/30/20 07/01/20 19:00 07:00 Intake Total 415 ml 360 ml Output Total 500 ml 1125 ml Balance -85 ml -765 ml Free Water 40 ml IV Total 55 ml Tube Feeding 360 ml 320 ml Output Urine Total 300 ml 75 ml Stool Total 200 ml 50 ml Hemodialysis UF 1000 ml # Bowel Movements 3 3 Current Medications Medications (Trade) Dose Ordered Sig/Maryjane Route PRN Reason Start Time Stop Time Status Last Admin Dose Admin Acetaminophen (Tylenol) 650 mg Q4H PRN GT Mild Pain (Pain Scale 1-3) 06/18/20 23:00 07/18/20 22:59 Acetaminophen (Tylenol) 650 mg Q4HR PRN GT FEVER 06/14/20 09:45 07/14/20 09:44 06/19/20 20:45 Aluminum Hydroxide (Amphojel) 1,920 mg Q6H GT 06/17/20 10:00 07/17/20 09:59 07/01/20 09:31 Ascorbic Acid (Vitamin C) 500 mg DAILY GT 07/01/20 09:00 07/31/20 08:59 07/01/20 09:31 Chlorhexidine Gluconate (Inés-Hex 2%) 1 applic DAILY@1999 TOPIC 06/21/20 20:00 09/19/20 19:59 06/30/20 20:24 Dextrose (Dextrose 50%) 25 ml Q30M PRN IV Hypoglycemia 06/28/20 18:30 09/26/20 18:29 Dextrose (Dextrose 50%) 50 ml Q30M PRN IV Hypoglycemia 06/28/20 18:30 09/26/20 18:29 Epoetin Bonilla (Epoetin Bonilla-EPBX(NON ESRD)) 10,000 unit SUBQ 06/18/20 21:00 09/16/20 20:59 06/30/20 20:48 Haloperidol Lactate (Haldol) 5 mg Q6H PRN IM Agitation 06/21/20 23:15 08/05/20 23:14 06/25/20 18:17 Insulin Aspart (NovoLOG) EVERY 6 HOURS SUBQ 06/29/20 00:00 09/27/20 00:00 06/29/20 18:13 Lansoprazole (Prevacid) 30 mg Q12HR GT 06/30/20 21:00 07/30/20 20:59 07/01/20 09:30 Levothyroxine Sodium (Synthroid) 50 mcg DAILY@0630 GT 07/01/20 06:30 07/31/20 06:29 07/01/20 05:58 Vancomycin HCl ([facility] pharmacy to dose) 1 ea DAILY PRN MISC Per rx protocol 06/27/20 11:30 07/18/20 23:59 Laboratory Tests 06/30/20 18:48: POC Whole Blood Glucose 106 07/01/20 04:40: White Blood Count 15.6H, Red Blood Count 2.18L, Hemoglobin 6.6*L, Hematocrit 20.8L, Mean Corpuscular Volume 96, Mean Corpuscular Hemoglobin 30.2, Mean Corpuscular Hemoglobin Concent 31.6L, Red Cell Distribution Width 15.0H, Platelet Count 67L, Mean Platelet Volume 10.9H, Neutrophils (%) (Auto) , Lymphocytes (%) (Auto) , Monocytes (%) (Auto) , Eosinophils (%) (Auto) , Basophils (%) (Auto) , Differential Total Cells Counted 100, Neutrophils % (Manual) 74, Lymphocytes % (Manual) 7L, Monocytes % (Manual) 10, Eosinophils % (Manual) 7H, Basophils % (Manual) 0, Band Neutrophils 2, Platelet Estimate DecreasedL, Platelet Morphology Normal, Hypochromasia 1+, Anisocytosis 1+, Prothrombin Time 12.0H, Prothromb Time International Ratio 1.1, Activated Partial Thromboplast Time 32, Sodium Level 135L, Potassium Level 4.2, Chloride Level 101, Carbon Dioxide Level 35H, Anion Gap -1L, Blood Urea Nitrogen 53H, Creatinine 3.2H, Estimat Glomerular Filtration Rate 24.7, Glucose Level 112H, Uric Acid 3.1, Calcium Level 8.5, Phosphorus Level 3.0, Magnesium Level 2.6H, Total Bilirubin 0.3, Aspartate Amino Transf (AST/SGOT) 213H, Alanine Aminotransferase (ALT/SGPT) 273H, Alkaline Phosphatase 523H, C-Reactive Protein, Quantitative 10.3H, Total Protein 6.6, Albumin 1.5L, Globulin 5.1, Albumin/Globulin Ratio 0.3L, Thyroid Stimulating Hormone (TSH) 14.453H, Free Thyroxine 0.86, Cytomegalovirus DNA Qual (PCR) [Pending] 07/01/20 05:00: POC Whole Blood Glucose 96 07/01/20 07:55: HIV (1&2) Antibody Rapid Negative 07/01/20 12:15: POC Whole Blood Glucose 113H Height (Feet): 5 Height (Inches): 8.00 Weight (Pounds): 143 General Appearance: no apparent distress, lethargic EENT: other - Trach to vent Cardiovascular: normal rate Respiratory/Chest: decreased breath sounds Abdomen: distended Leonidas Honeycutt MD Jul 01, 2020 13:06
--- NOTE | 2020-07-01 13:36 | NUR ---
NURSE NOTES: THE FIRST BAG OF BLOOD FINISHED AND PT TOLERATED WELL, NO STRESS OR REACTION NOTED. WILL CONTINUE TO MONITOR.
--- NOTE | 2020-07-01 14:10 | Diagnostic Imaging Report ---
Indication: Reason For Exam: BLD Technique: Romero scale and duplex images of the bilateral upper extremity veins Comparison: none Findings: Bilaterally, Romero scale duplex images demonstrate no evidence of intraluminal thrombus. Normal phasic Doppler waveforms. Normal compressibility. Note that neither cephalic vein is well-demonstrated Impression: Negative for upper extremity venous thrombosis bilaterally
--- NOTE | 2020-07-01 14:31 | Infectious Diseases Prog Note ---
Assessment/Plan Assessment/Plan IMPRESSION: Pneumonia with Pseudomonas & Stenotrophomonas treated Hypothermia COVID19 X 2: negative Ventilator-dependent respiratory failure, Diabetes mellitus type 2, Hypertension, History of left BKA, Hypertension, anemia, Major depression, Pressure ulcer, Elevated transaminase, Hyperkalemia. Anemia R leg DVT s/p IVC filter Sacral osteomyelitis Severe anemia Acute renal failure ESRD Hypercapnic respiratory failure Hematuria Thrombocytopenia Diverticulosis Diarrhea, C. difficile negative RECOMMENDATION: Continue Vancomycin until 07/18 Repeat CXR Subjective ROS Limited/Unobtainable: Yes Cardiovascular: Reports: other - Had Permacath placement yesterday Psychiatric: Reports: other - on restraint Allergies: Coded Allergies: No Known Allergies (Unverified , 06/13/20) Objective Last 24 Hour Vital Signs Date Time Temp Pulse Resp B/P (MAP) Pulse Ox O2 Delivery O2 Flow Rate FiO2 07/01/20 12:00 40 07/01/20 12:00 Mechanical Ventilator 07/01/20 12:00 Mechanical Ventilator 07/01/20 12:00 97.5 73 23 109/61 (77) 98 07/01/20 11:08 71 20 50 07/01/20 09:00 73 07/01/20 09:00 07/01/20 09:00 Mechanical Ventilator 07/01/20 08:00 Mechanical Ventilator 07/01/20 08:00 40 07/01/20 08:00 97.5 74 21 104/63 (77) 95 07/01/20 07:45 71 07/01/20 07:00 74 25 50 07/01/20 04:01 74 07/01/20 04:00 Mechanical Ventilator 07/01/20 04:00 40 07/01/20 04:00 97.5 76 20 121/72 (88) 100 07/01/20 03:25 74 21 70 07/01/20 00:00 64 07/01/20 00:00 96.9 63 20 122/79 (93) 100 07/01/20 00:00 40 07/01/20 00:00 Mechanical Ventilator 06/30/20 23:30 62 18 70 06/30/20 20:00 Mechanical Ventilator 06/30/20 20:00 100 06/30/20 20:00 97.0 59 18 118/71 (87) 100 06/30/20 20:00 58 06/30/20 19:15 58 17 100 06/30/20 16:57 69 17 125/79 (94) 100 06/30/20 16:42 71 17 126/80 (95) 100 06/30/20 16:37 73 17 133/80 (97) 100 06/30/20 16:32 73 17 139/86 (103) 100 06/30/20 16:27 69 17 144/85 (104) 100 06/30/20 16:22 61 14 132/82 (99) 100 06/30/20 16:17 61 15 127/80 (96) 100 06/30/20 16:05 61 18 133/84 100 06/30/20 16:00 Mechanical Ventilator 06/30/20 16:00 96.1 62 20 133/84 (100) 100 06/30/20 16:00 100 06/30/20 15:57 61 18 06/30/20 15:35 68 20 129/71 96 06/30/20 15:13 67 06/30/20 15:00 71 20 100 Height (Feet): 5 Height (Inches): 8.00 Weight (Pounds): 143 HEENT: status post trach Respiratory/Chest: lungs clear Cardiovascular: normal rate, other - R permacath Abdomen: soft, non tender, other - GT feeding Extremities: no edema, other - Left BKA Skin: ulcers, other - sacral Neurologic/Psychiatric: alert, responsive Laboratory Tests Test 06/30/20 18:48 07/01/20 04:40 07/01/20 05:00 07/01/20 07:55 POC Whole Blood Glucose 106 MG/DL (74-106) 96 MG/DL (74-106) White Blood Count 15.6 K/UL (4.8-10.8) H Red Blood Count 2.18 M/UL (4.70-6.10) L Hemoglobin 6.6 G/DL (14.2-18.0) *L Hematocrit 20.8 % (42.0-52.0) L Mean Corpuscular Volume 96 FL (80-99) Mean Corpuscular Hemoglobin 30.2 PG (27.0-31.0) Mean Corpuscular Hemoglobin Concent 31.6 G/DL (32.0-36.0) L Red Cell Distribution Width 15.0 % (11.6-14.8) H Platelet Count 67 K/UL (150-450) L Mean Platelet Volume 10.9 FL (6.5-10.1) H Neutrophils (%) (Auto) % (45.0-75.0) Lymphocytes (%) (Auto) % (20.0-45.0) Monocytes (%) (Auto) % (1.0-10.0) Eosinophils (%) (Auto) % (0.0-3.0) Basophils (%) (Auto) % (0.0-2.0) Differential Total Cells Counted 100 Neutrophils % (Manual) 74 % (45-75) Lymphocytes % (Manual) 7 % (20-45) L Monocytes % (Manual) 10 % (1-10) Eosinophils % (Manual) 7 % (0-3) H Basophils % (Manual) 0 % (0-2) Band Neutrophils 2 % (0-8) Platelet Estimate Decreased L Platelet Morphology Normal Hypochromasia 1+ Anisocytosis 1+ Prothrombin Time 12.0 SEC (9.30-11.50) H Prothromb Time International Ratio 1.1 (0.9-1.1) Activated Partial Thromboplast Time 32 SEC (23-33) Sodium Level 135 MMOL/L (136-145) L Potassium Level 4.2 MMOL/L (3.5-5.1) Chloride Level 101 MMOL/L (98-107) Carbon Dioxide Level 35 MMOL/L (21-32) H Anion Gap -1 mmol/L (5-15) L Blood Urea Nitrogen 53 mg/dL (7-18) H Creatinine 3.2 MG/DL (0.55-1.30) H Estimat Glomerular Filtration Rate 24.7 mL/min (>60) Glucose Level 112 MG/DL (74-106) H Uric Acid 3.1 MG/DL (2.6-7.2) Calcium Level 8.5 MG/DL (8.5-10.1) Phosphorus Level 3.0 MG/DL (2.5-4.9) Magnesium Level 2.6 MG/DL (1.8-2.4) H Total Bilirubin 0.3 MG/DL (0.2-1.0) Aspartate Amino Transf (AST/SGOT) 213 U/L (15-37) H Alanine Aminotransferase (ALT/SGPT) 273 U/L (12-78) H Alkaline Phosphatase 523 U/L (46-116) H C-Reactive Protein, Quantitative 10.3 mg/dL (0.00-0.90) H Total Protein 6.6 G/DL (6.4-8.2) Albumin 1.5 G/DL (3.4-5.0) L Globulin 5.1 g/dL Albumin/Globulin Ratio 0.3 (1.0-2.7) L Thyroid Stimulating Hormone (TSH) 14.453 uiU/mL (0.358-3.740) Free Thyroxine 0.86 NG/DL (0.76-1.46) Cytomegalovirus DNA Qual (PCR) Pending HIV (1&2) Antibody Rapid Negative (NEGATIVE) Test 07/01/20 12:15 POC Whole Blood Glucose 113 MG/DL (74-106) H Current Medications Medications (Trade) Dose Ordered Sig/Maryjane Route PRN Reason Start Time Stop Time Status Last Admin Dose Admin Acetaminophen (Tylenol) 650 mg Q4H PRN GT Mild Pain (Pain Scale 1-3) 06/18/20 23:00 07/18/20 22:59 Acetaminophen (Tylenol) 650 mg Q4HR PRN GT FEVER 06/14/20 09:45 07/14/20 09:44 06/19/20 20:45 Aluminum Hydroxide (Amphojel) 1,920 mg Q6H GT 06/17/20 10:00 07/17/20 09:59 07/01/20 09:31 Ascorbic Acid (Vitamin C) 500 mg DAILY GT 07/01/20 09:00 07/31/20 08:59 07/01/20 09:31 Chlorhexidine Gluconate (Inés-Hex 2%) 1 applic DAILY@1999 TOPIC 06/21/20 20:00 09/19/20 19:59 06/30/20 20:24 Dextrose (Dextrose 50%) 25 ml Q30M PRN IV Hypoglycemia 06/28/20 18:30 09/26/20 18:29 Dextrose (Dextrose 50%) 50 ml Q30M PRN IV Hypoglycemia 06/28/20 18:30 09/26/20 18:29 Epoetin Bonilla (Epoetin Bonilla-EPBX(NON ESRD)) 10,000 unit TUE-TUE-TUE SUBQ 06/18/20 21:00 09/16/20 20:59 06/30/20 20:48 Haloperidol Lactate (Haldol) 5 mg Q6H PRN IM Agitation 06/21/20 23:15 08/05/20 23:14 06/25/20 18:17 Insulin Aspart (NovoLOG) EVERY 6 HOURS SUBQ 06/29/20 00:00 09/27/20 00:00 06/29/20 18:13 Lansoprazole (Prevacid) 30 mg Q12HR GT 06/30/20 21:00 07/30/20 20:59 07/01/20 09:30 Levothyroxine Sodium (Synthroid) 50 mcg DAILY@0630 GT 07/01/20 06:30 07/31/20 06:29 07/01/20 05:58 Vancomycin HCl ([facility] pharmacy to dose) 1 ea DAILY PRN MISC Per rx protocol 06/27/20 11:30 07/18/20 23:59 Paul Amador MD Jul 01, 2020 14:31
--- NOTE | 2020-07-01 14:53 | Diagnostic Imaging Report ---
Indication: Cough Technique: One view of the chest Comparison: 06/24/2020 Findings: Interim placement right chest tunneled dialysis catheter, tip projected the level of the high right atrium. Of temporary dialysis catheter is no longer present Bilateral interstitial and airspace infiltrates versus edema persist, unchanged. Tracheostomy is again demonstrated. Impression: Unchanged, over 7 days, findings as above.
--- NOTE | 2020-07-01 14:58 | NUR ---
NURSE NOTES: the second bag of blood started 1440 with BP 103/59 HR 73 T 96.6 and after 15min, no stress or reaction noted. BP 106/65 hr 65 T 97. Will continue to close monitoring.
--- NOTE | 2020-07-01 15:26 | NUR ---
NURSE NOTES: Dr Tan is notified pt has big bruises on L arm and upper ex ninoska duplex is negative, waiting to call back. will continue to monitor.
--- NOTE | 2020-07-01 15:51 | NUR ---
REFRACTORY WORKERJUDICIAL REPORTER SI: RESP FAILURE TRACH/VENT DEPENDENT,SEPSIS,ANEMIA T.97.5 HR 74 RR 21 B/P 104/45 AC 14 TV 500 FIO2 50% PEEP 5 WBC 15.6 H/H 6.6/20.8 VENOUS DUPLEX= NEGATIVE BUE IS: VANCO IV PREVACID GT TRANSFUSE RBC'S STEP DOWN STATUS
--- NOTE | 2020-07-01 15:56 | NUR ---
NURSE NOTES: Dr Tan called ordered just monitor. noted and carried out. will continue to monitor.
--- NOTE | 2020-07-01 15:58 | NUR ---
DAIRY WORKER NOTE CLINICAL REVIEWED AND FAXED.
[2020-07-01 16:00] VITALS: BP 136/79
--- NOTE | 2020-07-01 16:03 | NUR ---
DISCHARGE PLANNING CLINICALS FAXED TO [facility] [phone]
--- NOTE | 2020-07-01 16:48 | NUR ---
NURSE NOTES: blood transfusion finished and pt tolerated well, no stress or reaction noted. empty blood bag sent to lab. BP 131/77 HR 73 T 96.8. Will continue to monitor.
--- NOTE | 2020-07-01 19:20 | NUR ---
NURSE NOTES: Received report from MAX Ren. Pt is seen lying in bed in semi- caba's position. Pt is alert x 2-3. Pt open eyes spontaneously, pt can follow commands but pt per morning shift is trying to dangle and getting out in bed pt on restraints- pulses noted upon palpation. Noted Left arms with purplish discoloration, Venous duplex and is negative. Pt connected to trach to vent with settings as ordered. No signs of pain noted. RAC g20 intact and patent. S/p2 bags of PRBC in morning shift no signs of post transfusion reaction. No active bleeding noted. With cabrera intact draining dark gerard urine. Jazlyn n lowest position. Call light within reach. Pt educated on fall precautions. Continue to plan of care.
--- NOTE | 2020-07-01 19:34 | NUR ---
NURSE HAND-OFF REPORT: Important Events on Shift: Patient Status: Diet: Pending Orders: Pending Results/Labs: Pending MD notification: Latest Vital Signs: Temperature 96.3 , Pulse 73 , B/P 136 /79 , Respiratory Rate 25 , O2 SAT 98 , Mechanical Ventilator, O2 Flow Rate 15.0 . Vital Sign Comment: EKG Rhythm: Sinus Rhythm Rhythm change?: N MD Notified?: N -Dr. Ruel BENDER Response: No New Orders Received Latest Santiago Fall Score: 85 Fall Risk: High Risk Safety Measures: Call light Within Reach, Bed Alarm Zone 2, Side Rails Side Rails x3, Bed position Low and Locked. Fall Precautions: Yellow Socks Yellow Gown Door Sign Patient Fall Education Report given to . pt is stable, no stress noted. Endorsed plan of care, endorsed to monitor pt for bleeding and F/U for labs morning.
--- NOTE | 2020-07-01 19:58 | General Progress Note ---
Subjective ROS Limited/Unobtainable: Yes Allergies: Coded Allergies: No Known Allergies (Unverified , 06/13/20) Objective Last 24 Hour Vital Signs Date Time Temp Pulse Resp B/P (MAP) Pulse Ox O2 Delivery O2 Flow Rate FiO2 07/01/20 19:30 71 21 50 07/01/20 16:00 Mechanical Ventilator 07/01/20 16:00 73 07/01/20 16:00 96.3 75 25 136/79 (98) 98 07/01/20 16:00 40 07/01/20 15:10 74 24 50 07/01/20 12:00 40 07/01/20 12:00 Mechanical Ventilator 07/01/20 12:00 Mechanical Ventilator 07/01/20 12:00 97.5 73 23 109/61 (77) 98 07/01/20 11:08 71 20 50 07/01/20 09:00 73 07/01/20 09:00 07/01/20 09:00 Mechanical Ventilator 07/01/20 08:00 Mechanical Ventilator 07/01/20 08:00 40 07/01/20 08:00 97.5 74 21 104/63 (77) 95 07/01/20 07:45 71 07/01/20 07:00 74 25 50 07/01/20 04:01 74 07/01/20 04:00 Mechanical Ventilator 07/01/20 04:00 40 07/01/20 04:00 97.5 76 20 121/72 (88) 100 07/01/20 03:25 74 21 70 07/01/20 00:00 64 07/01/20 00:00 96.9 63 20 122/79 (93) 100 07/01/20 00:00 40 07/01/20 00:00 Mechanical Ventilator 06/30/20 23:30 62 18 70 06/30/20 20:00 Mechanical Ventilator 06/30/20 20:00 100 06/30/20 20:00 97.0 59 18 118/71 (87) 100 06/30/20 20:00 58 Intake and Output 06/30/20 07/01/20 19:00 07:00 Intake Total 415 ml 410 ml Output Total 500 ml 1125 ml Balance -85 ml -715 ml Free Water 40 ml IV Total 55 ml Tube Feeding 360 ml 370 ml Output Urine Total 300 ml 75 ml Stool Total 200 ml 50 ml Hemodialysis UF 1000 ml # Bowel Movements 3 3 Laboratory Tests 07/01/20 04:40: White Blood Count 15.6H, Red Blood Count 2.18L, Hemoglobin 6.6*L, Hematocrit 20.8L, Mean Corpuscular Volume 96, Mean Corpuscular Hemoglobin 30.2, Mean Corpuscular Hemoglobin Concent 31.6L, Red Cell Distribution Width 15.0H, Platelet Count 67L, Mean Platelet Volume 10.9H, Neutrophils (%) (Auto) , Lymphocytes (%) (Auto) , Monocytes (%) (Auto) , Eosinophils (%) (Auto) , Basophils (%) (Auto) , Differential Total Cells Counted 100, Neutrophils % (Manual) 74, Lymphocytes % (Manual) 7L, Monocytes % (Manual) 10, Eosinophils % (Manual) 7H, Basophils % (Manual) 0, Band Neutrophils 2, Platelet Estimate DecreasedL, Platelet Morphology Normal, Hypochromasia 1+, Anisocytosis 1+, Prothrombin Time 12.0H, Prothromb Time International Ratio 1.1, Activated Partial Thromboplast Time 32, Sodium Level 135L, Potassium Level 4.2, Chloride Level 101, Carbon Dioxide Level 35H, Anion Gap -1L, Blood Urea Nitrogen 53H, Creatinine 3.2H, Estimat Glomerular Filtration Rate 24.7, Glucose Level 112H, Uric Acid 3.1, Calcium Level 8.5, Phosphorus Level 3.0, Magnesium Level 2.6H, Total Bilirubin 0.3, Aspartate Amino Transf (AST/SGOT) 213H, Alanine Aminotransferase (ALT/SGPT) 273H, Alkaline Phosphatase 523H, C-Reactive Protein, Quantitative 10.3H, Total Protein 6.6, Albumin 1.5L, Globulin 5.1, Albumin/Monalisa bulin Ratio 0.3L, Thyroid Stimulating Hormone (TSH) 14.453H, Free Thyroxine 0.86, Cytomegalovirus DNA Qual (PCR) [Pending] 07/01/20 05:00: POC Whole Blood Glucose 96 07/01/20 07:55: HIV (1&2) Antibody Rapid Negative 07/01/20 12:15: POC Whole Blood Glucose 113H 07/01/20 17:41: POC Whole Blood Glucose 133H 07/01/20 18:00: Random Vancomycin Level 25.7 Height (Feet): 5 Height (Inches): 8.00 Weight (Pounds): 143 Assessment/Plan Problem List: (1) Anemia ICD Codes: D64.9 - Anemia, unspecified SNOMED: 005549732 (2) KERRI (acute kidney injury) ICD Codes: N17.9 - Acute kidney failure, unspecified SNOMED: 0663210, 81557137 (3) Acute respiratory failure ICD Codes: J96.00 - Acute respiratory failure, unspecified whether with hypoxia or hypercapnia SNOMED: 07782337 Qualifiers: Qualified Codes: J96.02 - Acute respiratory failure with hypercapnia (4) Hyperkalemia ICD Codes: E87.5 - Hyperkalemia SNOMED: 08459977 (5) Abnormal laboratory test result ICD Codes: R89.9 - Unspecified abnormal finding in specimens from other organs, systems and tissues SNOMED: 740016253 (6) Anemia ICD Codes: D64.9 - Anemia, unspecified SNOMED: 697109271 Status: progressing Assessment/Plan: sepsis abx per id leukocytosis afebrile\ wound care per dr jones sacral wound did not hold and had dehiscence a chf s/p acute Neida Pacheco MD Jul 01, 2020 19:58
[2020-07-01 20:00] VITALS: BP 124/74
[2020-07-01] MEDS: Dyna-Hex 2% Top Sol 2oz TOPIC SCH (20:16)
--- NOTE | 2020-07-01 20:30 | NUR ---
NURSE NOTES: Initial assessment done. Noted on RUC with permacath with 50% saturated dressing with bright red bleeding. Dr. Ang aware and Dr. Tan is previously aware. Pressure applied and Change central dressing. Continue to plan of care.
--- NOTE | 2020-07-01 21:56 | General Progress Note ---
Subjective Allergies: Coded Allergies: No Known Allergies (Unverified , 06/13/20) Subjective above noted stools liquid, in rectal tube brown urine dark s/p HD catheter yesterday with some blood in dressing per RN H&H lower --> transfused d/w DTR Leatha and gave her updates She is aware of father poor health she is not sure if she wants any invasive w/u, such as EGD / colon she will talk to her aunt in am and possibly come see her father she requested supportive care for now Objective Last 24 Hour Vital Signs Date Time Temp Pulse Resp B/P (MAP) Pulse Ox O2 Delivery O2 Flow Rate FiO2 07/01/20 20:00 40 07/01/20 19:30 71 21 50 07/01/20 16:00 Mechanical Ventilator 07/01/20 16:00 73 07/01/20 16:00 96.3 75 25 136/79 (98) 98 07/01/20 16:00 40 07/01/20 15:10 74 24 50 07/01/20 12:00 40 07/01/20 12:00 Mechanical Ventilator 07/01/20 12:00 Mechanical Ventilator 07/01/20 12:00 97.5 73 23 109/61 (77) 98 07/01/20 11:08 71 20 50 07/01/20 09:00 73 07/01/20 09:00 07/01/20 09:00 Mechanical Ventilator 07/01/20 08:00 Mechanical Ventilator 07/01/20 08:00 40 07/01/20 08:00 97.5 74 21 104/63 (77) 95 07/01/20 07:45 71 07/01/20 07:00 74 25 50 07/01/20 04:01 74 07/01/20 04:00 Mechanical Ventilator 07/01/20 04:00 40 07/01/20 04:00 97.5 76 20 121/72 (88) 100 07/01/20 03:25 74 21 70 07/01/20 00:00 64 07/01/20 00:00 96.9 63 20 122/79 (93) 100 07/01/20 00:00 40 07/01/20 00:00 Mechanical Ventilator 06/30/20 23:30 62 18 70 Intake and Output 06/30/20 07/01/20 19:00 07:00 Intake Total 415 ml 410 ml Output Total 500 ml 1125 ml Balance -85 ml -715 ml Free Water 40 ml IV Total 55 ml Tube Feeding 360 ml 370 ml Output Urine Total 300 ml 75 ml Stool Total 200 ml 50 ml Hemodialysis UF 1000 ml # Bowel Movements 3 3 Laboratory Tests 07/01/20 04:40: White Blood Count 15.6H, Red Blood Count 2.18L, Hemoglobin 6.6*L, Hematocrit 20.8L, Mean Corpuscular Volume 96, Mean Corpuscular Hemoglobin 30.2, Mean Corpuscular Hemoglobin Concent 31.6L, Red Cell Distribution Width 15.0H, Platelet Count 67L, Mean Platelet Volume 10.9H, Neutrophils (%) (Auto) , Lymphocytes (%) (Auto) , Monocytes (%) (Auto) , Eosinophils (%) (Auto) , Basophils (%) (Auto) , Differential Total Cells Counted 100, Neutrophils % (Manual) 74, Lymphocytes % (Manual) 7L, Monocytes % (Manual) 10, Eosinophils % (Manual) 7H, Basophils % (Manual) 0, Band Neutrophils 2, Platelet Estimate DecreasedL, Platelet Morphology Normal, Hypochromasia 1+, Anisocytosis 1+, Prothrombin Time 12.0H, Prothromb Time International Ratio 1.1, Activated Partial Thromboplast Time 32, Sodium Level 135L, Potassium Level 4.2, Chloride Level 101, Carbon Dioxide Level 35H, Anion Gap -1L, Blood Urea Nitrogen 53H, Creatinine 3.2H, Estimat Glomerular Filtration Rate 24.7, Glucose Level 112H, Uric Acid 3.1, Calcium Level 8.5, Phosphorus Level 3.0, Magnesium Level 2.6H, Total Bilirubin 0.3, Aspartate Amino Transf (AST/SGOT) 213H, Alanine Aminotransferase (ALT/SGPT) 273H, Alkaline Phosphatase 523H, C-Reactive Protein, Quantitative 10.3H, Total Protein 6.6, Albumin 1.5L, Globulin 5.1, Albumin/Globulin Ratio 0.3L, Thyroid Stimulating Hormone (TSH) 14.453H, Free Thyroxine 0.86, Cytomegalovirus DNA Qual (PCR) [Pending] 07/01/20 05:00: POC Whole Blood Glucose 96 07/01/20 07:55: HIV (1&2) Antibody Rapid Negative 07/01/20 12:15: POC Whole Blood Glucose 113H 07/01/20 17:41: POC Whole Blood Glucose 133H 07/01/20 18:00: Random Vancomycin Level 25.7 Height (Feet): 5 Height (Inches): 8.00 Weight (Pounds): 143 Objective Debilitated elderly man NCAT supple Coarse BS RRR abd sofft, flat, (+) GT s/p LLE BKA Assessment/Plan Status: progressing Assessment/Plan: Assessment Abnormal LFT - improving - ? infectious hepatitis - Hep A and B negative - ? vascular - ? meds - ? other Gross hematuria - improved Acute anemia, ? urinary losses, ? GI loss ? surgical loss declining platelet count Recommendations - f/u all liver tests - continue to hold seroquel - follow LFT and CBC - family to decide on a level of care plan - no plans for GI w/u, per family discussion - TF - Transfuse Fco Banerjee MD Jul 01, 2020 21:56
[2020-07-02] VITALS: BP 114/66
--- NOTE | 2020-07-02 | NUR ---
NURSE NOTES: Pt is sleeping comfortably in bed. No signs of apparent respiratory distress. Bed in lowest position, Alarm on, Call light within reach. Bed in lowest position .
--- NOTE | 2020-07-02 02:36 | NUR ---
NURSE NOTES: Noted minimal bleeding on Right upper chest perma- cath.
[2020-07-02] MEDS: Aluminum Hydroxide Gel Susp 15ml GT SCH ×4 (03:08→21:46)
[2020-07-02 04:00] VITALS: BP 129/76
[2020-07-02 04:47] LABS: HEMATOCRIT 26.1 % (42.0-52.0); HEMOGLOBIN 8.3 G/DL (14.2-18.0); MEAN CORPUSCULAR VOLUME 95 FL (80-99); PLATELET COUNT 78 K/UL (150-450); RED BLOOD COUNT 2.74 M/UL (4.70-6.10); RED CELL DISTRIBUTION WIDTH 15.4 % (11.6-14.8)
[2020-07-02 05:24] LABS: ALANINE AMINOTRANSFERASE 214 U/L (12-78); ALBUMIN 1.5 G/DL (3.4-5.0); ALBUMIN/GLOBULIN RATIO 0.3 (1.0-2.7); ALKALINE PHOSPHATASE 510 U/L (46-116); ANION GAP 1 mmol/L (5-15); ASPARTATE AMINO TRANSFERASE 205 U/L (15-37); BILIRUBIN,TOTAL 0.3 MG/DL (0.2-1.0); BLOOD UREA NITROGEN 67 mg/dL (7-18); CARBON DIOXIDE 33 MMOL/L (21-32); CHLORIDE 99 MMOL/L (98-107); CREATININE 3.9 MG/DL (0.55-1.30); PHOSPHORUS 3.9 MG/DL (2.5-4.9); POTASSIUM 4.8 MMOL/L (3.5-5.1); SODIUM 133 MMOL/L (136-145)
[2020-07-02] MEDS: NovoLOG Insulin Flexpen SUBQ SCH ×4 (05:45→23:19)
--- NOTE | 2020-07-02 05:56 | NUR ---
NURSE NOTES: Seen pt resting comfortably in bed. With minimal bleeding noted in the RUC permacath, still with pressure dressing applied. No pain noted. NO signs of respiratory distress, o2 sat- 99%. Continue to plan of care.
--- NOTE | 2020-07-02 06:38 | General Progress Note ---
Subjective ROS Limited/Unobtainable: Yes Allergies: Coded Allergies: No Known Allergies (Unverified , 06/13/20) Subjective events noted interval notes reviewed glucose values are stable Item Value Date Time Bedside Blood Glucose 106 mg/dl 07/02/20 0600 Bedside Blood Glucose 122 mg/dl H 07/02/20 0000 Bedside Blood Glucose 133 mg/dl H 07/01/20 1745 Bedside Blood Glucose 113 mg/dl 07/01/20 1200 Bedside Blood Glucose 93 mg/dl 07/01/20 0600 Objective Last 24 Hour Vital Signs Date Time Temp Pulse Resp B/P (MAP) Pulse Ox O2 Delivery O2 Flow Rate FiO2 07/02/20 04:38 40 07/02/20 04:00 73 07/02/20 04:00 Mechanical Ventilator 07/02/20 04:00 97.2 74 22 129/76 (93) 98 07/02/20 02:57 74 18 50 07/02/20 00:00 Mechanical Ventilator 07/02/20 00:00 40 07/02/20 00:00 75 07/02/20 00:00 97.0 70 20 114/66 (82) 99 07/01/20 23:30 72 19 50 07/01/20 21:47 Mechanical Ventilator 07/01/20 20:00 96.5 72 21 124/74 (91) 98 07/01/20 20:00 40 07/01/20 20:00 Mechanical Ventilator 07/01/20 20:00 72 07/01/20 19:30 71 21 50 07/01/20 16:00 Mechanical Ventilator 07/01/20 16:00 73 07/01/20 16:00 96.3 75 25 136/79 (98) 98 07/01/20 16:00 40 07/01/20 15:10 74 24 50 07/01/20 12:00 40 07/01/20 12:00 Mechanical Ventilator 07/01/20 12:00 Mechanical Ventilator 07/01/20 12:00 97.5 73 23 109/61 (77) 98 07/01/20 11:08 71 20 50 07/01/20 09:00 73 07/01/20 09:00 07/01/20 09:00 Mechanical Ventilator 07/01/20 08:00 Mechanical Ventilator 07/01/20 08:00 40 07/01/20 08:00 97.5 74 21 104/63 (77) 95 07/01/20 07:45 71 07/01/20 07:00 74 25 50 Intake and Output 07/01/20 07/02/20 19:00 07:00 Intake Total 1190 ml 650 ml Output Total 100 ml 500 ml Balance 1090 ml 150 ml Free Water 90 ml 50 ml Tube Feeding 600 ml 550 ml Blood Product 500 ml 50 ml Output Urine Total 30 ml 100 ml Stool Total 70 ml 400 ml # Bowel Movements 5 4 Laboratory Tests 07/01/20 07:55: HIV (1&2) Antibody Rapid Negative 07/01/20 12:15: POC Whole Blood Glucose 113H 07/01/20 17:41: POC Whole Blood Glucose 133H 07/01/20 18:00: Random Vancomycin Level 25.7 07/01/20 23:46: POC Whole Blood Glucose 122H 07/02/20 03:35: White Blood Count 14.0H, Red Blood Count 2.74L, Hemoglobin 8.3L, Hematocrit 26.1L, Mean Corpuscular Volume 95, Mean Corpuscular Hemoglobin 30.3, Mean Corpuscular Hemoglobin Concent 31.8L, Red Cell Distribution Width 15.4H, Plat elet Count 78L, Mean Platelet Volume 11.4H, Neutrophils (%) (Auto) , Lymphocytes (%) (Auto) , Monocytes (%) (Auto) , Eosinophils (%) (Auto) , Basophils (%) (Auto) , Neutrophils % (Manual) [Pending], Lymphocytes % (Manual) [Pending], Platelet Estimate [Pending], Platelet Morphology [Pending], Sodium Level 133L, Potassium Level 4.8, Chloride Level 99, Carbon Dioxide Level 33H, Anion Gap 1L, Blood Urea Nitrogen 67H, Creatinine 3.9H, Estimat Glomerular Filtration Rate 19.8, Glucose Level 119H, Calcium Level 8.0L, Phosphorus Level 3.9, Magnesium Level 2.6H, Total Bilirubin 0.3, Aspartate Amino Transf (AST/SGOT) 205H, Alanine Aminotransferase (ALT/SGPT) 214H, Alkaline Phosphatase 510H, C-Reactive Protein, Quantitative 11.1H, Pro-B-Type Natriuretic Peptide > 91491L, Total Protein 6.9, Albumin 1.5L, Globulin 5.4, Albumin/Globulin Ratio 0.3L 07/02/20 05:22: POC Whole Blood Glucose 106 Height (Feet): 5 Height (Inches): 8.00 Weight (Pounds): 143 General Appearance: no apparent distress Cardiovascular: normal rate Respiratory/Chest: decreased breath sounds Abdomen: normal bowel sounds Objective Current Medications Medications (Trade) Dose Ordered Sig/Maryjane Route PRN Reason Start Time Stop Time Status Last Admin Dose Admin Acetaminophen (Tylenol) 650 mg Q4H PRN GT Mild Pain (Pain Scale 1-3) 06/18/20 23:00 07/18/20 22:59 Acetaminophen (Tylenol) 650 mg Q4HR PRN GT FEVER 06/14/20 09:45 07/14/20 09:44 06/19/20 20:45 Aluminum Hydroxide (Amphojel) 1,920 mg Q6H GT 06/17/20 10:00 07/17/20 09:59 07/02/20 03:08 Ascorbic Acid (Vitamin C) 500 mg DAILY GT 07/01/20 09:00 07/31/20 08:59 07/01/20 09:31 Chlorhexidine Gluconate (Inés-Hex 2%) 1 applic DAILY@1999 TOPIC 06/21/20 20:00 09/19/20 19:59 07/01/20 20:16 Dextrose (Dextrose 50%) 25 ml Q30M PRN IV Hypoglycemia 06/28/20 18:30 09/26/20 18:29 Dextrose (Dextrose 50%) 50 ml Q30M PRN IV Hypoglycemia 06/28/20 18:30 09/26/20 18:29 Epoetin Bonilla (Epoetin Bonilla-EPBX(NON ESRD)) 10,000 unit TUE-TUE-TUE SUBQ 06/18/20 21:00 09/16/20 20:59 06/30/20 20:48 Haloperidol Lactate (Haldol) 5 mg Q6H PRN IM Agitation 06/21/20 23:15 08/05/20 23:14 06/25/20 18:17 Insulin Aspart (NovoLOG) EVERY 6 HOURS SUBQ 06/29/20 00:00 09/27/20 00:00 06/29/20 18:13 Lansoprazole (Prevacid) 30 mg Q12HR GT 06/30/20 21:00 07/30/20 20:59 07/01/20 20:16 Levothyroxine Sodium (Synthroid) 50 mcg DAILY@0630 GT 07/01/20 06:30 07/31/20 06:29 07/02/20 05:45 Vancomycin HCl (Vanco pharmacy to dose) 1 ea DAILY PRN MISC Per rx protocol 06/27/20 11:30 07/18/20 23:59 Assessment/Plan Problem List: (1) History of left below knee amputation ICD Codes: Z89.512 - Acquired absence of left leg below knee SNOMED: 311595534, [id number] (2) Surgical wound dehiscence ICD Codes: T81.31XA - Disruption of external operation (surgical) wound, not elsewhere classified, initial encounter SNOMED: 04139480 (3) Hyperkalemia ICD Codes: E87.5 - Hyperkalemia SNOMED: 30382189 (4) Acute respiratory failure ICD Codes: J96.00 - Acute respiratory failure, unspecified whether with hypoxia or hypercapnia SNOMED: 93853673 Qualifiers: Qualified Codes: J96.02 - Acute respiratory failure with hypercapnia (5) Hypothyroidism ICD Codes: E03.9 - Hypothyroidism, unspecified SNOMED: 08870476 (6) Hyperglycemia ICD Codes: R73.9 - Hyperglycemia, unspecified SNOMED: 83314339 Status: progressing Assessment/Plan: TSH increased increase levothyroxine 50 to 88 mcg daily continue glucose monitoring Davy Ramos MD Jul 02, 2020 06:38
--- NOTE | 2020-07-02 06:39 | Hematology/Onc Progress Note ---
Assessment/Plan Assessment/Plan ASSESSMENT AND PLAN: #. Anemia that is likely due to chronic disease, r/o gi bleeding --> anemia panel has been reviewed, ferritin is >2000 --> no e/o hemolysis is noted --> transfuse on prn basis --> blood consent has been signed --> hgb 7.4-->7.4-->7-->6.7-->8-->7.5-->8.4-->9.1->8.1-->5.6->7.4-->7-->6.6->8 --> folic acid is wnl --> 1 unit prbc 06/18 --> epogen has been started # Acute DVT in the distal right common femoral vein and profunda femoris vein. --> DUPLEX. Acute DVT in the distal right common femoral vein and profunda femoris vein. 2. No evidence of left lower extremity DVT. --> cannot anticoagulate at this time --> 06/17 s/p ivc filter placement --> hold off anticoag # Leukocytosis is likely due to b/l infiltrates --> on abx as per id -> ABX yolis/vanc-->yolis/linezolid--> yolis/levaq-->linezolid->vanc --> continue trend --> wbc 15-->12->9.5-->13-->14 # Thrombocytopenia likely due to infection --> plt 82-->67->78 --> hep and hiv neg # Respiratory failure in this patient with vent-dependent respiratory failure. 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 # Dysphagia --> status post PEG placement. # Renal failure. -> per Dr. Honeycutt. # Hyperkalemia and kayxelate as needed. # Dvt ppx scds Appreciate consultation and angela RN Subjective Constitutional: Denies: no symptoms, chills, fever, malaise, weakness, other HEENT: Denies: no symptoms, eye pain, blurred vision, tearing, double vision, ear pain, ear discharge, nose pain, nose congestion, throat pain, throat swelling, mouth pain, mouth swelling, other Cardiovascular: Denies: no symptoms, chest pain, edema, irregular heart rate, lightheadedness, palpitations, syncope, other Respiratory: Denies: no symptoms, cough, shortness of breath, SOB with excertion, SOB at rest, sputum, wheezing, other Gastrointestinal/Abdominal: Denies: no symptoms, abdomen distended, abdominal pain, black stools, tarry stools, blood in stool, constipated, diarrhea, diff iculty swallowing, nausea, poor appetite, poor fluid intake, rectal bleeding, vomiting, other Genitourinary: Denies: no symptoms, burning, discharge, frequency, flank pain, hematuria, incontinence, pain, urgency, other Neurologic/Psychiatric: Denies: no symptoms, anxiety, depressed, emotional problems, headache, numbness, paresthesia, pre-existing deficit, seizure, tingling, tremors, weakness, other Endocrine: Denies: no symptoms, excessive sweating, flushing, intolerance to cold, intolerance to heat, increased hunger, increased thirst, increased urine, unexplained weight gain, unexplained weight loss, other Allergies: Coded Allergies: No Known Allergies (Unverified , 06/13/20) Subjective 06/16 meds noted, labs reviewed, vent to trach, for ivc filter potentially 06/17 labs noted, meds reviewed, for ivc filter once covid neg 06/18 labs are noted, on vent and gt, 1 unit prbc ordered 06/19 labs pending, is s/p ivcf placement yesterday 06/20 for hd nontunneled cathter placement, no bleeding 06/22 labs noted, no bleeding, found down overnight, got ct brain, is neg 06/23 overnight is agitated and requiring restraints 06/24 labs noted, meds reviewed, hgb pending for am, restraints 06/25 labs reviewed, meds noted, no bleeding, hgb improved 06/26 per Rn, with rapid response overnight hr is improved, meds noted 06/27 labs reviewed, meds noted, no bleeding, hgb 5.6, wbc elevated, to get 2 unit prbc 06/29 on vanc, wbc 13, hgb 7.3, plt 88, on vanc 06/30 meds reviewed, hgb at 7, occult +, as per gi care, with diarrhea 07/01 plt 67, hgb 6.6, to get 2 units prbc, angela RN at bedside 07/02 RU permacath reviewed, minimal bleeding, meds noted Objective Objective Current Medications Medications (Trade) Dose Ordered Sig/Maryjane Route PRN Reason Start Time Stop Time Status Last Admin Dose Admin Acetaminophen (Tylenol) 650 mg Q4H PRN GT Mild Pain (Pain Scale 1-3) 06/18/20 23:00 07/18/20 22:59 Acetaminophen (Tylenol) 650 mg Q4HR PRN GT FEVER 06/14/20 09:45 07/14/20 09:44 06/19/20 20:45 Aluminum Hydroxide (Amphojel) 1,920 mg Q6H GT 06/17/20 10:00 07/17/20 09:59 07/02/20 03:08 Ascorbic Acid (Vitamin C) 500 mg DAILY GT 07/01/20 09:00 07/31/20 08:59 07/01/20 09:31 Chlorhexidine Gluconate (Inés-Hex 2%) 1 applic DAILY@1999 TOPIC 06/21/20 20:00 09/19/20 19:59 07/01/20 20:16 Dextrose (Dextrose 50%) 25 ml Q30M PRN IV Hypoglycemia 06/28/20 18:30 09/26/20 18:29 Dextrose (Dextrose 50%) 50 ml Q30M PRN IV Hypoglycemia 06/28/20 18:30 09/26/20 18:29 Epoetin Bonilla (Epoetin Bonilla-EPBX(NON ESRD)) 10,000 unit TUE-TUE-TUE SUBQ 06/18/20 21:00 09/16/20 20:59 06/30/20 20:48 Haloperidol Lactate (Haldol) 5 mg Q6H PRN IM Agitation 06/21/20 23:15 08/05/20 23:14 06/25/20 18:17 Insulin Aspart (NovoLOG) EVERY 6 HOURS SUBQ 06/29/20 00:00 09/27/20 00:00 06/29/20 18:13 Lansoprazole (Prevacid) 30 mg Q12HR GT 06/30/20 21:00 07/30/20 20:59 07/01/20 20:16 Levothyroxine Sodium (Synthroid) 50 mcg DAILY@0630 GT 07/01/20 06:30 07/31/20 06:29 07/02/20 05:45 Vancomycin HCl (Vanco pharmacy to dose) 1 ea DAILY PRN MISC Per rx protocol 06/27/20 11:30 07/18/20 23:59 Last 24 Hour Vital Signs Date Time Temp Pulse Resp B/P (MAP) Pulse Ox O2 Delivery O2 Flow Rate FiO2 07/02/20 04:38 40 07/02/20 04:00 73 07/02/20 04:00 Mechanical Ventilator 07/02/20 04:00 97.2 74 22 129/76 (93) 98 07/02/20 02:57 74 18 50 07/02/20 00:00 Mechanical Ventilator 07/02/20 00:00 40 07/02/20 00:00 75 07/02/20 00:00 97.0 70 20 114/66 (82) 99 07/01/20 23:30 72 19 50 07/01/20 21:47 Mechanical Ventilator 07/01/20 20:00 96.5 72 21 124/74 (91) 98 07/01/20 20:00 40 07/01/20 20:00 Mechanical Ventilator 07/01/20 20:00 72 07/01/20 19:30 71 21 50 07/01/20 16:00 Mechanical Ventilator 07/01/20 16:00 73 07/01/20 16:00 96.3 75 25 136/79 (98) 98 07/01/20 16:00 40 07/01/20 15:10 74 24 50 07/01/20 12:00 40 07/01/20 12:00 Mechanical Ventilator 07/01/20 12:00 Mechanical Ventilator 07/01/20 12:00 97.5 73 23 109/61 (77) 98 07/01/20 11:08 71 20 50 07/01/20 09:00 73 07/01/20 09:00 07/01/20 09:00 Mechanical Ventilator 07/01/20 08:00 Mechanical Ventilator 07/01/20 08:00 40 07/01/20 08:00 97.5 74 21 104/63 (77) 95 07/01/20 07:45 71 07/01/20 07:00 74 25 50 07/01/20 04:01 74 07/01/20 04:00 Mechanical Ventilator 07/01/20 04:00 40 07/01/20 04:00 97.5 76 20 121/72 (88) 100 07/01/20 03:25 74 21 70 07/01/20 00:00 64 07/01/20 00:00 96.9 63 20 122/79 (93) 100 07/01/20 00:00 40 07/01/20 00:00 Mechanical Ventilator 06/30/20 23:30 62 18 70 06/30/20 20:00 Mechanical Ventilator 06/30/20 20:00 100 06/30/20 20:00 97.0 59 18 118/71 (87) 100 06/30/20 20:00 58 06/30/20 19:15 58 17 100 06/30/20 16:57 69 17 125/79 (94) 100 06/30/20 16:42 71 17 126/80 (95) 100 06/30/20 16:37 73 17 133/80 (97) 100 06/30/20 16:32 73 17 139/86 (103) 100 06/30/20 16:27 69 17 144/85 (104) 100 06/30/20 16:22 61 14 132/82 (99) 100 06/30/20 16:17 61 15 127/80 (96) 100 06/30/20 16:05 61 18 133/84 100 06/30/20 16:00 Mechanical Ventilator 06/30/20 16:00 96.1 62 20 133/84 (100) 100 06/30/20 16:00 100 06/30/20 15:57 61 18 06/30/20 15:35 68 20 129/71 96 06/30/20 15:13 67 06/30/20 15:00 71 20 100 06/30/20 12:00 95.4 67 20 129/71 (90) 97 06/30/20 12:00 Mechanical Ventilator 06/30/20 12:00 40 06/30/20 11:53 66 06/30/20 11:10 66 24 40 06/30/20 08:00 Mechanical Ventilator 06/30/20 08:00 95.6 64 26 129/77 (94) 97 06/30/20 08:00 40 06/30/20 07:42 66 06/30/20 07:20 65 19 40 Intake and Output 07/01/20 07/02/20 19:00 07:00 Intake Total 1190 ml 650 ml Output Total 100 ml 500 ml Balance 1090 ml 150 ml Free Water 90 ml 50 ml Tube Feeding 600 ml 550 ml Blood Product 500 ml 50 ml Output Urine Total 30 ml 100 ml Stool Total 70 ml 400 ml # Bowel Movements 5 4 Labs Test 06/29/20 11:12 06/29/20 11:24 06/29/20 15:45 06/29/20 18:10 POC Whole Blood Glucose 136 MG/DL (74-106) 137 MG/DL (74-106) 148 MG/DL (74-106) Random Vancomycin Level 20.2 ug/mL Test 06/29/20 23:56 06/30/20 04:57 06/30/20 05:50 06/30/20 12:52 POC Whole Blood Glucose 134 MG/DL (74-106) 136 MG/DL (74-106) 102 MG/DL (74-106) White Blood Count 14.2 K/UL (4.8-10.8) Red Blood Count 2.33 M/UL (4.70-6.10) Hemoglobin 7.0 G/DL (14.2-18.0) Hematocrit 22.0 % (42.0-52.0) Mean Corpuscular Volume 94 FL (80-99) Mean Corpuscular Hemoglobin 30.3 PG (27.0-31.0) Mean Corpuscular Hemoglobin Concent 32.1 G/DL (32.0-36.0) Red Cell Distribution Width 15.5 % (11.6-14.8) Platelet Count 82 K/UL (150-450) Mean Platelet Volume 10.2 FL (6.5-10.1) Neutrophils (%) (Auto) % (45.0-75.0) Lymphocytes (%) (Auto) % (20.0-45.0) Monocytes (%) (Auto) % (1.0-10.0) Eosinophils (%) (Auto) % (0.0-3.0) Basophils (%) (Auto) % (0.0-2.0) Differential Total Cells Counted 100 Neutrophils % (Manual) 77 % (45-75) Lymphocytes % (Manual) 6 % (20-45) Monocytes % (Manual) 4 % (1-10) Eosinophils % (Manual) 13 % (0-3) Basophils % (Manual) 0 % (0-2) Band Neutrophils 0 % (0-8) Platelet Estimate Decreased Platelet Morphology Giant Platelets Occasional Hypochromasia 1+ Anisocytosis 1+ Sodium Level 135 MMOL/L (136-145) Potassium Level 4.1 MMOL/L (3.5-5.1) Chloride Level 100 MMOL/L (98-107) Carbon Dioxide Level 31 MMOL/L (21-32) Anion Gap 4 mmol/L (5-15) Blood Urea Nitrogen 83 mg/dL (7-18) Creatinine 4.6 MG/DL (0.55-1.30) Estimat Glomerular Filtration Rate 16.2 mL/min (>60) Glucose Level 139 MG/DL (74-106) Calcium Level 8.5 MG/DL (8.5-10.1) Total Bilirubin 0.4 MG/DL (0.2-1.0) Aspartate Amino Transf (AST/SGOT) 343 U/L (15-37) Alanine Aminotransferase (ALT/SGPT) 344 U/L (12-78) Alkaline Phosphatase 633 U/L (46-116) Total Creatine Kinase 27 U/L (26-308) Total Protein 6.7 G/DL (6.4-8.2) Albumin 1.5 G/DL (3.4-5.0) Globulin 5.2 g/dL Albumin/Globulin Ratio 0.3 (1.0-2.7) Test 06/30/20 18:48 07/01/20 04:40 07/01/20 05:00 07/01/20 07:55 POC Whole Blood Glucose 106 MG/DL (74-106) 96 MG/DL (74-106) White Blood Count 15.6 K/UL (4.8-10.8) Red Blood Count 2.18 M/UL (4.70-6.10) Hemoglobin 6.6 G/DL (14.2-18.0) Hematocrit 20.8 % (42.0-52.0) Mean Corpuscular Volume 96 FL (80-99) Mean Corpuscular Hemoglobin 30.2 PG (27.0-31.0) Mean Corpuscular Hemoglobin Concent 31.6 G/DL (32.0-36.0) Red Cell Distribution Width 15.0 % (11.6-14.8) Platelet Count 67 K/UL (150-450) Mean Platelet Volume 10.9 FL (6.5-10.1) Neutrophils (%) (Auto) % (45.0-75.0) Lymphocytes (%) (Auto) % (20.0-45.0) Monocytes (%) (Auto) % (1.0-10.0) Eosinophils (%) (Auto) % (0.0-3.0) Basophils (%) (Auto) % (0.0-2.0) Differential Total Cells Counted 100 Neutrophils % (Manual) 74 % (45-75) Lymphocytes % (Manual) 7 % (20-45) Monocytes % (Manual) 10 % (1-10) Eosinophils % (Manual) 7 % (0-3) Basophils % (Manual) 0 % (0-2) Band Neutrophils 2 % (0-8) Platelet Estimate Decreased Platelet Morphology Normal Hypochromasia 1+ Anisocytosis 1+ Prothrombin Time 12.0 SEC (9.30-11.50) Prothromb Time International Ratio 1.1 (0.9-1.1) Activated Partial Thromboplast Time 32 SEC (23-33) Sodium Level 135 MMOL/L (136-145) Potassium Level 4.2 MMOL/L (3.5-5.1) Chloride Level 101 MMOL/L (98-107) Carbon Dioxide Level 35 MMOL/L (21-32) Anion Gap -1 mmol/L (5-15) Blood Urea Nitrogen 53 mg/dL (7-18) Creatinine 3.2 MG/DL (0.55-1.30) Estimat Glomerular Filtration Rate 24.7 mL/min (>60) Glucose Level 112 MG/DL (74-106) Uric Acid 3.1 MG/DL (2.6-7.2) Calcium Level 8.5 MG/DL (8.5-10.1) Phosphorus Level 3.0 MG/DL (2.5-4.9) Magnesium Level 2.6 MG/DL (1.8-2.4) Total Bilirubin 0.3 MG/DL (0.2-1.0) Aspartate Amino Transf (AST/SGOT) 213 U/L (15-37) Alanine Aminotransferase (ALT/SGPT) 273 U/L (12-78) Alkaline Phosphatase 523 U/L (46-116) C-Reactive Protein, Quantitative 10.3 mg/dL (0.00-0.90) Total Protein 6.6 G/DL (6.4-8.2) Albumin 1.5 G/DL (3.4-5.0) Globulin 5.1 g/dL Albumin/Globulin Ratio 0.3 (1.0-2.7) Thyroid Stimulating Hormone (TSH) 14.453 uiU/mL (0.358-3.740) Free Thyroxine 0.86 NG/DL (0.76-1.46) HIV (1&2) Antibody Rapid Negative (NEGATIVE) Test 07/01/20 12:15 07/01/20 17:41 07/01/20 18:00 07/01/20 23:46 POC Whole Blood Glucose 113 MG/DL (74-106) 133 MG/DL (74-106) 122 MG/DL (74-106) Random Vancomycin Level 25.7 ug/mL Test 07/02/20 03:35 07/02/20 05:22 White Blood Count 14.0 K/UL (4.8-10.8) Red Blood Count 2.74 M/UL (4.70-6.10) Hemoglobin 8.3 G/DL (14.2-18.0) Hematocrit 26.1 % (42.0-52.0) Mean Corpuscular Volume 95 FL (80-99) Mean Corpuscular Hemoglobin 30.3 PG (27.0-31.0) Mean Corpuscular Hemoglobin Concent 31.8 G/DL (32.0-36.0) Red Cell Distribution Width 15.4 % (11.6-14.8) Platelet Count 78 K/UL (150-450) Mean Platelet Volume 11.4 FL (6.5-10.1) Neutrophils (%) (Auto) % (45.0-75.0) Lymphocytes (%) (Auto) % (20.0-45.0) Monocytes (%) (Auto) % (1.0-10.0) Eosinophils (%) (Auto) % (0.0-3.0) Basophils (%) (Auto) % (0.0-2.0) Sodium Level 133 MMOL/L (136-145) Potassium Level 4.8 MMOL/L (3.5-5.1) Chloride Level 99 MMOL/L (98-107) Carbon Dioxide Level 33 MMOL/L (21-32) Anion Gap 1 mmol/L (5-15) Blood Urea Nitrogen 67 mg/dL (7-18) Creatinine 3.9 MG/DL (0.55-1.30) Estimat Glomerular Filtration Rate 19.8 mL/min (>60) Glucose Level 119 MG/DL (74-106) Calcium Level 8.0 MG/DL (8.5-10.1) Phosphorus Level 3.9 MG/DL (2.5-4.9) Magnesium Level 2.6 MG/DL (1.8-2.4) Total Bilirubin 0.3 MG/DL (0.2-1.0) Aspartate Amino Transf (AST/SGOT) 205 U/L (15-37) Alanine Aminotransferase (ALT/SGPT) 214 U/L (12-78) Alkaline Phosphatase 510 U/L (46-116) C-Reactive Protein, Quantitative 11.1 mg/dL (0.00-0.90) Pro-B-Type Natriuretic Peptide > 34192 pg/mL (0-125) Total Protein 6.9 G/DL (6.4-8.2) Albumin 1.5 G/DL (3.4-5.0) Globulin 5.4 g/dL Albumin/Globulin Ratio 0.3 (1.0-2.7) POC Whole Blood Glucose 106 MG/DL (74-106) Height (Feet): 5 Height (Inches): 8.00 Weight (Pounds): 143 Objective PHYSICAL EXAMINATION: VITAL SIGNS: reviewed HEAD AND NECK: Show status post tracheostomy. vent+ LUNGS: Coarse rhonchi and basilar rales. CARDIOVASCULAR: Shows irregular S1 and S2 with no gallop. ABDOMEN: Soft. Status post G-tube. EXTREMITIES: No pitting edema.++Left Jose Epperson MD Jul 02, 2020 06:39
--- NOTE | 2020-07-02 07:20 | NUR ---
NURSE HAND-OFF REPORT: Important Events on Shift: Still on rectal tube- dark brown stool, bleeding on right upper chest permacath. Incident report for the new wound Patient Status: Stable Diet: GTF Pending Orders: None Pending Results/Labs: None Pending MD notification: None Latest Vital Signs: Temperature 97.2 , Pulse 73 , B/P 129 /76 , Respiratory Rate 22 , O2 SAT 98 , Mechanical Ventilator, O2 Flow Rate 15.0 . Vital Sign Comment: WNL EKG Rhythm: Sinus Rhythm Rhythm change?: N MD Notified?: N -Dr. Ruel BENDER Response: No New Orders Received Latest Santiago Fall Score: 95 Fall Risk: High Risk Safety Measures: Call light Within Reach, Bed Alarm Zone 2, Side Rails Side Rails x3, Bed position Low and Locked. Fall Precautions: Yellow Socks Yellow Gown Door Sign Patient Fall Education Report given to [MAX Vicente].
--- NOTE | 2020-07-02 07:57 | NUR ---
NURSE NOTES Received report fromPrincess RN. Patient seen in semi fowlers position. Trach to vent dependent- tolerating vent settings Shiley 8, A/C 16, TV 500, FiO2 40, PEEP 05 well, no signs of respiratory, cardiac distress noted at this time. Patient opens eyes spontaneously, does not follow command. patient Gtube feeding running vital AF at 50ml/hr, patent, intact. Rectal tube draining well and to gravity. Sparrow catheter patent, intact, draining well to gravity. Hemodialyses catheter RU chest, patent, endorsed scant amount of bleeding on site , pressure dressing applied. IV RAC 20g, L hand 22g, patent, intact, asymptomatic. Patient on bilateral soft restraints. Cap refill within 3 seconds able to move Bed in lowest position, side rails up x3, bed alarm on, call light within reach. Will continue to monitor
[2020-07-02 08:00] VITALS: BP 128/71
[2020-07-02] MEDS: Ascorbic Acid 500mg tab GT SCH (08:36)
--- NOTE | 2020-07-02 10:00 | Pulmonology Progress Note ---
Subjective ROS Limited/Unobtainable: Yes Interval Events: FiO2 now 40%; Remains on vent. Constitutional: Denies: fever HEENT: Repors: no symptoms Respiratory: Reports: no symptoms Cardiovascular: Reports: no symptoms Gastrointestinal/Abdominal: Reports: diarrhea Genitourinary: Reports: no symptoms Psychiatric: Reports: other - on restraint Allergies: Coded Allergies: No Known Allergies (Unverified , 06/13/20) Objective Last 24 Hour Vital Signs Date Time Temp Pulse Resp B/P (MAP) Pulse Ox O2 Delivery O2 Flow Rate FiO2 07/02/20 08:00 50 07/02/20 08:00 97.2 72 20 128/71 (90) 98 07/02/20 07:10 71 21 50 07/02/20 04:38 40 07/02/20 04:00 73 07/02/20 04:00 Mechanical Ventilator 07/02/20 04:00 97.2 74 22 129/76 (93) 98 07/02/20 02:57 74 18 50 07/02/20 00:00 Mechanical Ventilator 07/02/20 00:00 40 07/02/20 00:00 75 07/02/20 00:00 97.0 70 20 114/66 (82) 99 07/01/20 23:30 72 19 50 07/01/20 21:47 Mechanical Ventilator 07/01/20 20:00 96.5 72 21 124/74 (91) 98 07/01/20 20:00 40 07/01/20 20:00 Mechanical Ventilator 07/01/20 20:00 72 07/01/20 19:30 71 21 50 07/01/20 16:00 Mechanical Ventilator 07/01/20 16:00 73 07/01/20 16:00 96.3 75 25 136/79 (98) 98 07/01/20 16:00 40 07/01/20 15:10 74 24 50 07/01/20 12:00 40 07/01/20 12:00 Mechanical Ventilator 07/01/20 12:00 Mechanical Ventilator 07/01/20 12:00 97.5 73 23 109/61 (77) 98 07/01/20 11:08 71 20 50 Intake and Output 07/01/20 07/02/20 19:00 07:00 Intake Total 1190 ml 650 ml Output Total 100 ml 500 ml Balance 1090 ml 150 ml Free Water 90 ml 50 ml Tube Feeding 600 ml 550 ml Blood Product 500 ml 50 ml Output Urine Total 30 ml 100 ml Stool Total 70 ml 400 ml # Bowel Movements 5 4 General Appearance: no acute distress HEENT: status post trach Respiratory: chest wall non-tender, lungs clear Cardiovascular: normal peripheral pulses, normal rate Abdomen: normal bowel sounds Extremities: no cyanosis Laboratory Tests 07/01/20 12:15: POC Whole Blood Glucose 113H 07/01/20 17:41: POC Whole Blood Glucose 133H 07/01/20 18:00: Random Vancomycin Level 25.7 07/01/20 23:46: POC Whole Blood Glucose 122H 07/02/20 03:35: White Blood Count 14.0H, Red Blood Count 2.74L, Hemoglobin 8.3L, Hematocrit 26.1L, Mean Corpuscular Volume 95, Mean Corpuscular Hemoglobin 30.3, Mean Corpuscular Hemoglobin Concent 31.8L, Red Cell Distribution Width 15.4H, Platelet Count 78L, Mean Platelet Volume 11.4H, Neutrophils (%) (Auto) , Lymphocytes (%) (Auto) , Monocytes (%) (Auto) , Eosinophils (%) (Auto) , Basophils (%) (Auto) , Differential Total Cells Counted 100, Neutrophils % (Manual) 74, Lymphocytes % (Manual) 14L, Monocytes % (Manual) 5, Eosinophils % (Manual) 7H, Basophils % (Manual) 0, Band Neutrophils 0, Platelet Estimate DecreasedL, Platelet Morphology , Giant Platelets Occasional, Hypochromasia 1+, Anisocytosis 1+, Sodium Level 133L, Potassium Level 4.8, Chloride Level 99, Carb on Dioxide Level 33H, Anion Gap 1L, Blood Urea Nitrogen 67H, Creatinine 3.9H, Estimat Glomerular Filtration Rate 19.8, Glucose Level 119H, Calcium Level 8.0L, Phosphorus Level 3.9, Magnesium Level 2.6H, Total Bilirubin 0.3, Aspartate Amino Transf (AST/SGOT) 205H, Alanine Aminotransferase (ALT/SGPT) 214H, Alkaline Phosphatase 510H, C-Reactive Protein, Quantitative 11.1H, Pro-B-Type Natriuretic Peptide > 63746M, Total Protein 6.9, Albumin 1.5L, Globulin 5.4, Albumin/Globulin Ratio 0.3L 07/02/20 05:22: POC Whole Blood Glucose 106 Current Medications Medications (Trade) Dose Ordered Sig/Maryjane Route PRN Reason Start Time Stop Time Status Last Admin Dose Admin Acetaminophen (Tylenol) 650 mg Q4H PRN GT Mild Pain (Pain Scale 1-3) 06/18/20 23:00 07/18/20 22:59 Acetaminophen (Tylenol) 650 mg Q4HR PRN GT FEVER 06/14/20 09:45 07/14/20 09:44 06/19/20 20:45 Aluminum Hydroxide (Amphojel) 1,920 mg Q6H GT 06/17/20 10:00 07/17/20 09:59 07/02/20 03:08 Ascorbic Acid (Vitamin C) 500 mg DAILY GT 07/01/20 09:00 07/31/20 08:59 07/02/20 08:36 Chlorhexidine Gluconate (Inés-Hex 2%) 1 applic DAILY@1999 TOPIC 06/21/20 20:00 09/19/20 19:59 07/01/20 20:16 Dextrose (Dextrose 50%) 25 ml Q30M PRN IV Hypoglycemia 06/28/20 18:30 09/26/20 18:29 Dextrose (Dextrose 50%) 50 ml Q30M PRN IV Hypoglycemia 06/28/20 18:30 09/26/20 18:29 Epoetin Bonilla (Epoetin Bonilla-EPBX(NON ESRD)) 10,000 unit TUE-TUE-TUE SUBQ 06/18/20 21:00 09/16/20 20:59 06/30/20 20:48 Haloperidol Lactate (Haldol) 5 mg Q6H PRN IM Agitation 06/21/20 23:15 08/05/20 23:14 06/25/20 18:17 Insulin Aspart (NovoLOG) EVERY 6 HOURS SUBQ 06/29/20 00:00 09/27/20 00:00 06/29/20 18:13 Lansoprazole (Prevacid) 30 mg Q12HR GT 06/30/20 21:00 07/30/20 20:59 07/02/20 08:36 Levothyroxine Sodium (Synthroid) 88 mcg DAILY@0630 GT 07/03/20 06:30 08/02/20 06:29 Vancomycin HCl (Vanco pharmacy to dose) 1 ea DAILY PRN MISC Per rx protocol 06/27/20 11:30 07/18/20 23:59 Assessment/Plan Problems: (1) Acute respiratory failure Assessment/Plan IMPRESSION: 1. Chronic respiratory failure. 2. Hypoxemia. 3. Respiratory acidosis. 4. Anemia. 5. Leukocytosis. 6. DVT 7. S/p code blue 06/19/20 DISCUSSION: The patient's x-ray is markedly abnormal with bilateral infiltrates. I suspect he has pulmonary fibrosis. Latest CXR is unchanged to slightly improved COVID 19 pcr and antigen both negative No anticoagulation for DVT due to anemia S/p IVC filter placement Continue assist-control mechanical ventilation; currently FiO2 40%; SaO2 100%, broad-spectrum antibiotics. Transfusion as needed. Will decrease PEEP to 5; S/p HD WIll decrease FiO2 as tolerated S/p permacath I will follow carefully. Hugo Carl Omar Syed MD Jul 02, 2020 10:00
--- NOTE | 2020-07-02 11:39 | Infectious Diseases Prog Note ---
Assessment/Plan Assessment/Plan IMPRESSION: Pneumonia with Pseudomonas & Stenotrophomonas treated Hypothermia COVID19 X 2: negative Ventilator-dependent respiratory failure, Diabetes mellitus type 2, Hypertension, History of left BKA, Hypertension, anemia, Major depression, Pressure ulcer, Elevated transaminase, Hyperkalemia. Anemia R leg DVT s/p IVC filter Sacral osteomyelitis Severe anemia Acute renal failure ESRD Hypercapnic respiratory failure Hematuria Thrombocytopenia Diverticulosis Diarrhea, C. difficile negative RECOMMENDATION: Continue Vancomycin until 07/18 Repeat Sputum culture Subjective ROS Limited/Unobtainable: Yes Constitutional: Denies: fever Gastrointestinal/Abdominal: Reports: diarrhea Allergies: Coded Allergies: No Known Allergies (Unverified , 06/13/20) Objective Last 24 Hour Vital Signs Date Time Temp Pulse Resp B/P (MAP) Pulse Ox O2 Delivery O2 Flow Rate FiO2 07/02/20 08:00 50 07/02/20 08:00 Mechanical Ventilator 07/02/20 08:00 97.2 72 20 128/71 (90) 98 07/02/20 08:00 71 07/02/20 07:10 71 21 50 07/02/20 04:38 40 07/02/20 04:00 73 07/02/20 04:00 Mechanical Ventilator 07/02/20 04:00 97.2 74 22 129/76 (93) 98 07/02/20 02:57 74 18 50 07/02/20 00:00 Mechanical Ventilator 07/02/20 00:00 40 07/02/20 00:00 75 07/02/20 00:00 97.0 70 20 114/66 (82) 99 07/01/20 23:30 72 19 50 07/01/20 21:47 Mechanical Ventilator 07/01/20 20:00 96.5 72 21 124/74 (91) 98 07/01/20 20:00 40 07/01/20 20:00 Mechanical Ventilator 07/01/20 20:00 72 07/01/20 19:30 71 21 50 07/01/20 16:00 Mechanical Ventilator 07/01/20 16:00 73 07/01/20 16:00 96.3 75 25 136/79 (98) 98 07/01/20 16:00 40 07/01/20 15:10 74 24 50 07/01/20 12:00 40 07/01/20 12:00 Mechanical Ventilator 11/24/20 12:00 Mechanical Ventilator 07/01/20 12:00 97.5 73 23 109/61 (77) 98 Height (Feet): 5 Height (Inches): 8.00 Weight (Pounds): 143 HEENT: status post trach Respiratory/Chest: lungs clear, other - on ventilator Cardiovascular: normal rate Abdomen: soft, non tender, other - GT & rectal tube Extremities: other - left BKA Skin: other - sacral surgical wound Laboratory Tests Test 07/01/20 12:15 07/01/20 17:41 07/01/20 18:00 07/01/20 23:46 POC Whole Blood Glucose 113 MG/DL (74-106) H 133 MG/DL (74-106) H 122 MG/DL (74-106) H Random Vancomycin Level 25.7 ug/mL Test 07/02/20 03:35 07/02/20 05:22 White Blood Count 14.0 K/UL (4.8-10.8) H Red Blood Count 2.74 M/UL (4.70-6.10) L Hemoglobin 8.3 G/DL (14.2-18.0) L Hematocrit 26.1 % (42.0-52.0) L Mean Corpuscular Volume 95 FL (80-99) Mean Corpuscular Hemoglobin 30.3 PG (27.0-31.0) Mean Corpuscular Hemoglobin Concent 31.8 G/DL (32.0-36.0) L Red Cell Distribution Width 15.4 % (11.6-14.8) H Platelet Count 78 K/UL (150-450) L Mean Platelet Volume 11.4 FL (6.5-10.1) H Neutrophils (%) (Auto) % (45.0-75.0) Lymphocytes (%) (Auto) % (20.0-45.0) Monocytes (%) (Auto) % (1.0-10.0) Eosinophils (%) (Auto) % (0.0-3.0) Basophils (%) (Auto) % (0.0-2.0) Differential Total Cells Counted 100 Neutrophils % (Manual) 74 % (45-75) Lymphocytes % (Manual) 14 % (20-45) L Monocytes % (Manual) 5 % (1-10) Eosinophils % (Manual) 7 % (0-3) H Basophils % (Manual) 0 % (0-2) Band Neutrophils 0 % (0-8) Platelet Estimate Decreased L Platelet Morphology Giant Platelets Occasional Hypochromasia 1+ Anisocytosis 1+ Sodium Level 133 MMOL/L (136-145) L Potassium Level 4.8 MMOL/L (3.5-5.1) Chloride Level 99 MMOL/L (98-107) Carbon Dioxide Level 33 MMOL/L (21-32) H Anion Gap 1 mmol/L (5-15) L Blood Urea Nitrogen 67 mg/dL (7-18) H Creatinine 3.9 MG/DL (0.55-1.30) H Estimat Glomerular Filtration Rate 19.8 mL/min (>60) Glucose Level 119 MG/DL (74-106) H Calcium Level 8.0 MG/DL (8.5-10.1) L Phosphorus Level 3.9 MG/DL (2.5-4.9) Magnesium Level 2.6 MG/DL (1.8-2.4) H Total Bilirubin 0.3 MG/DL (0.2-1.0) Aspartate Amino Transf (AST/SGOT) 205 U/L (15-37) H Alanine Aminotransferase (ALT/SGPT) 214 U/L (12-78) H Alkaline Phosphatase 510 U/L (46-116) H C-Reactive Protein, Quantitative 11.1 mg/dL (0.00-0.90) H Pro-B-Type Natriuretic Peptide > 04081 pg/mL (0-125) H Total Protein 6.9 G/DL (6.4-8.2) Albumin 1.5 G/DL (3.4-5.0) L Globulin 5.4 g/dL Albumin/Globulin Ratio 0.3 (1.0-2.7) L POC Whole Blood Glucose 106 MG/DL (74-106) Current Medications Medications (Trade) Dose Ordered Sig/Maryjane Route PRN Reason Start Time Stop Time Status Last Admin Dose Admin Acetaminophen (Tylenol) 650 mg Q4H PRN GT Mild Pain (Pain Scale 1-3) 06/18/20 23:00 07/18/20 22:59 Acetaminophen (Tylenol) 650 mg Q4HR PRN GT FEVER 06/14/20 09:45 07/14/20 09:44 06/19/20 20:45 Aluminum Hydroxide (Amphojel) 1,920 mg Q6H GT 06/17/20 10:00 07/17/20 09:59 07/02/20 10:40 Ascorbic Acid (Vitamin C) 500 mg DAILY GT 07/01/20 09:00 07/31/20 08:59 07/02/20 08:36 Chlorhexidine Gluconate (Inés-Hex 2%) 1 applic DAILY@1999 TOPIC 06/21/20 20:00 09/19/20 19:59 07/01/20 20:16 Dextrose (Dextrose 50%) 25 ml Q30M PRN IV Hypoglycemia 06/28/20 18:30 09/26/20 18:29 Dextrose (Dextrose 50%) 50 ml Q30M PRN IV Hypoglycemia 06/28/20 18:30 09/26/20 18:29 Epoetin Bonilla (Epoetin Bonilla-EPBX(NON ESRD)) 10,000 unit TUE-TUE-TUE SUBQ 06/18/20 21:00 09/16/20 20:59 06/30/20 20:48 Haloperidol Lactate (Haldol) 5 mg Q6H PRN IM Agitation 06/21/20 23:15 08/05/20 23:14 06/25/20 18:17 Insulin Aspart (NovoLOG) EVERY 6 HOURS SUBQ 06/29/20 00:00 09/27/20 00:00 06/29/20 18:13 Lansoprazole (Prevacid) 30 mg Q12HR GT 06/30/20 21:00 07/30/20 20:59 07/02/20 08:36 Levothyroxine Sodium (Synthroid) 88 mcg DAILY@0630 GT 07/03/20 06:30 08/02/20 06:29 Vancomycin HCl ([facility] pharmacy to dose) 1 ea DAILY PRN MISC Per rx protocol 06/27/20 11:30 07/18/20 23:59 Paul Amador MD Jul 02, 2020 11:39
--- NOTE | 2020-07-02 11:52 | NUR ---
CASE MANAGEMENT:REVIEW SI;RESP FAILURE TRACH/VENT DEPENDENT,SEPSIS,ANEMIA 96.5 74 21 129/76 98% TRACH/VENT AC 16 TV 500 PEEP 5 FIO2 40% WBC 14.0 H/H 8.3/26.1 NA 133 BUN 67 CR 3.9 MAG 2.6 AST 205 ALT 214 ALP 510 CRP 11.1 BNP >35585 ALB 1.5 RECTAL TUBE IS;AMPHOJEL GT Q6 INSULIN SQ Q6 PREVACID GT Q12 LEVOTHYROXINE GT QD VIT C GT QD KALYN STATUS DCP;FROM [facility]
[2020-07-02 12:00] VITALS: BP 126/68
--- NOTE | 2020-07-02 13:29 | Cardiac Electrophysiology PN ---
Assessment/Plan Assessment/Plan 1. Vent-dependent respirator failure. S/P tracheostomy. On 50% Fio2 Chest x-ray extensive bilateral pneumonia or ARDS. Off isolation EF 50%. Ruled out for ID. BNP 00311. On iv Abx 2. Sinus Tachycardia, likely due to respiratory failure and sepsis 3. Right femoral vein DVT. S/P IVC filter 06/18 4. Dysphagia, status post PEG placement. 5. Renal failure. S/P Right IJ Iron and on HD by Dr. Honeycutt. Next one tomorrow 6. Severe anemia, S/P multiple PRBCs for hematuria 7. High LFTs, s/p CT abdomen and pelvis and HIDA FU Dr Stringer 8. Transient bradycardia, resolved DW RN and Dr Honeycutt Subjective Subjective On the Vent off isolation. On 50% Fio2 and PEEP 5. S/P IVC filter S/P Right IJ Iron and first HD 06/21/20 Had [employer]IST as HR dropped to 30 at 4 am 06/25/20 Got PRBC 06/27 and 06/28 as Hb dropped to 5.6 likley due to hematuria as was pulling on the Sparrow Opens eyes in restraints in NAD Hb down to 6.6 and got 2 units of PRBC Objective Last 24 Hour Vital Signs Date Time Temp Pulse Resp B/P (MAP) Pulse Ox O2 Delivery O2 Flow Rate FiO2 07/02/20 12:00 Mechanical Ventilator 07/02/20 12:00 50 07/02/20 12:00 97.3 74 21 126/68 (87) 98 07/02/20 12:00 73 07/02/20 08:00 50 07/02/20 08:00 Mechanical Ventilator 07/02/20 08:00 97.2 72 20 128/71 (90) 98 07/02/20 08:00 71 07/02/20 07:10 71 21 50 07/02/20 04:38 40 07/02/20 04:00 73 07/02/20 04:00 Mechanical Ventilator 07/02/20 04:00 97.2 74 22 129/76 (93) 98 07/02/20 02:57 74 18 50 07/02/20 00:00 Mechanical Ventilator 07/02/20 00:00 40 07/02/20 00:00 75 07/02/20 00:00 97.0 70 20 114/66 (82) 99 07/01/20 23:30 72 19 50 07/01/20 21:47 Mechanical Ventilator 07/01/20 20:00 96.5 72 21 124/74 (91) 98 07/01/20 20:00 40 07/01/20 20:00 Mechanical Ventilator 07/01/20 20:00 72 07/01/20 19:30 71 21 50 07/01/20 16:00 Mechanical Ventilator 07/01/20 16:00 73 07/01/20 16:00 96.3 75 25 136/79 (98) 98 07/01/20 16:00 40 07/01/20 15:10 74 24 50 Intake and Output 07/01/20 07/02/20 19:00 07:00 Intake Total 1190 ml 650 ml Output Total 100 ml 500 ml Balance 1090 ml 150 ml Free Water 90 ml 50 ml Tube Feeding 600 ml 550 ml Blood Product 500 ml 50 ml Output Urine Total 30 ml 100 ml Stool Total 70 ml 400 ml # Bowel Movements 5 4 Laboratory Tests Test 07/01/20 17:41 07/01/20 18:00 07/01/20 23:46 07/02/20 03:35 POC Whole Blood Glucose 133 MG/DL (74-106) H 122 MG/DL (74-106) H Random Vancomycin Level 25.7 ug/mL White Blood Count 14.0 K/UL (4.8-10.8) H Red Blood Count 2.74 M/UL (4.70-6.10) L Hemoglobin 8.3 G/DL (14.2-18.0) L Hematocrit 26.1 % (42.0-52.0) L Mean Corpuscular Volume 95 FL (80-99) Mean Corpuscular Hemoglobin 30.3 PG (27.0-31.0) Mean Corpuscular Hemoglobin Concent 31.8 G/DL (32.0-36.0) L Red Cell Distribution Width 15.4 % (11.6-14.8) H Platelet Count 78 K/UL (150-450) L Mean Platelet Volume 11.4 FL (6.5-10.1) H Neutrophils (%) (Auto) % (45.0-75.0) Lymphocytes (%) (Auto) % (20.0-45.0) Monocytes (%) (Auto) % (1.0-10.0) Eosinophils (%) (Auto) % (0.0-3.0) Basophils (%) (Auto) % (0.0-2.0) Differential Total Cells Counted 100 Neutrophils % (Manual) 74 % (45-75) Lymphocytes % (Manual) 14 % (20-45) L Monocytes % (Manual) 5 % (1-10) Eosinophils % (Manual) 7 % (0-3) H Basophils % (Manual) 0 % (0-2) Band Neutrophils 0 % (0-8) Platelet Estimate Decreased L Platelet Morphology Giant Platelets Occasional Hypochromasia 1+ Anisocytosis 1+ Sodium Level 133 MMOL/L (136-145) L Potassium Level 4.8 MMOL/L (3.5-5.1) Chloride Level 99 MMOL/L (98-107) Carbon Dioxide Level 33 MMOL/L (21-32) H Anion Gap 1 mmol/L (5-15) L Blood Urea Nitrogen 67 mg/dL (7-18) H Creatinine 3.9 MG/DL (0.55-1.30) H Estimat Glomerular Filtration Rate 19.8 mL/min (>60) Glucose Level 119 MG/DL (74-106) H Calcium Level 8.0 MG/DL (8.5-10.1) L Phosphorus Level 3.9 MG/DL (2.5-4.9) Magnesium Level 2.6 MG/DL (1.8-2.4) H Total Bilirubin 0.3 MG/DL (0.2-1.0) Aspartate Amino Transf (AST/SGOT) 205 U/L (15-37) H Alanine Aminotransferase (ALT/SGPT) 214 U/L (12-78) H Alkaline Phosphatase 510 U/L (46-116) H C-Reactive Protein, Quantitative 11.1 mg/dL (0.00-0.90) H Pro-B-Type Natriuretic Peptide > 87513 pg/mL (0-125) H Total Protein 6.9 G/DL (6.4-8.2) Albumin 1.5 G/DL (3.4-5.0) L Globulin 5.4 g/dL Albumin/Globulin Ratio 0.3 (1.0-2.7) L Test 07/02/20 05:22 07/02/20 12:24 POC Whole Blood Glucose 106 MG/DL (74-106) 99 MG/DL (74-106) Objective HEAD AND NECK: Status post tracheostomy. Right IJ Iron in place LUNGS: Coarse rhonchi and basilar rales. CARDIOVASCULAR: Irregular S1 and S2 with no gallop. ABDOMEN: Soft. Status post G-tube. EXTREMITIES: No pitting edema. Lance Mcguire MD Jul 02, 2020 13:29
--- NOTE | 2020-07-02 13:31 | Nephrology Progress Note ---
Assessment/Plan Problem List: (1) KERRI (acute kidney injury) (2) Acute respiratory failure (3) Chronic respiratory failure (4) Anemia (5) Hyperkalemia Assessment Acute on chronic renal failure Anemia Respiratory failure acute on chronic Respiratory acidosis and hypoxia Hyperkalemia Plan July 02: Labs reviewed. Due for dialysis tomorrow. Hemoglobin higher. Stable electrolytes. Continue per consultants. July 01: Labs reviewed. Dialyzed yesterday. Patient has a permacath. Continue per consultants. Worsening anemia noted, deferred to library page. June 30: Labs reviewed. Due for dialysis today. Patient appears to be needing hemodialysis for sometimes incoming future. Will arrange for placement of a tunneled catheter. Continue per consultants. Anemia management per library page. June 29: Labs reviewed. Hemoglobin is higher. Next hemodialysis tomorrow June 30. Continue per consultants. June 28: Labs reviewed. Last dialyzed June 26. Hemoglobin remains low. Defer transfusion and work-up to library page. Continue to follow-up renal parameters. June 27: Labs reviewed. Dialyzed yesterday. Hemoglobin low. Due for transfusion. Continue to monitor renal parameters and hemoglobin and hematocrit. June 26: Labs reviewed. Due for dialysis today. Continue per consultants. Continue to monitor liver enzymes. June 25: Labs reviewed. Will dialyze tomorrow. Continue per consultants. Check liver function enzymes. June 24: Dialyzed yesterday. Labs reviewed. Medication list reviewed. Liver enzymes remains elevated. Continue to monitor electrolytes renal parameters and LFTs. Hemodialysis in a.m. if needed. June 23: Patient will be dialyzed today again. Labs reviewed. Serum creatinine higher. Elevated liver enzymes persist. Patient full code. Continue per consultants. June 22: Patient dialyzed yesterday. Labs reviewed. Liver function tests and enzymes are elevated. Continue to monitor renal parameters and LFTs. Continue per consultants. Patient full code. June 21: Patient due for dialysis today. Labs and medication list reviewed. Discussed with RN. Continue to monitor renal parameters. June 20: Patient had an episode of bradycardia last night. Serum creatinine rising. Patient continues to have respiratory acidosis. Discussed with MAX Bond. Will order non tunneled dialysis catheter placement for initiation of dialysis treatment due to acute renal failure. Patient remains full code. I favor comfort care if bioethics consultation is sought and physicians on the team agreeable. June 19: No CHEM panel today. Low hemoglobin as of yesterday's lab results. Anemia management per Dr. Cueva. Continue to monitor renal parameters. June 18: Labs are reviewed. Hemoglobin lower. Creatinine higher. ABG not done yet. Patient full code. Continue per consultants. June 17: Labs reviewed. Hemoglobin low. Creatinine up to 3. Phosphorus levels elevated. Will start Amphojel via GT tube as a phosphorus binder. Monitor renal parameters. Check ABG. Continue per consultants. June 16: Labs reviewed. Serum creatinine mariana to 2.6. Abnormal electrolytes now normalized. Continue to monitor renal parameters and avoid nephrotoxic's. Continue to adjust pulmonary status as possible. June 15: ABG pH of 7.1. 2D echo suggestive of ejection fraction of 50%. Labs reviewed. Serum creatinine mariana. Will hold IV Lasix. Will give Kayexalate for high potassium and 1 amp of sodium bicarb. Albumin IV bolus given. Continue per consultants. Continue to monitor renal parameters. Kidney ultrasound ordered. June 14: As follow Pulmonary evaluation Sparrow catheter Hold IV fluid IV fluid, until 2D echo results available Kayexalate for high potassium IV Protonix 2D echocardiogram Anemia work-up More labs ordered Subjective ROS Limited/Unobtainable: Yes Objective Objective Last 24 Hour Vital Signs Date Time Temp Pulse Resp B/P (MAP) Pulse Ox O2 Delivery O2 Flow Rate FiO2 07/02/20 12:00 Mechanical Ventilator 07/02/20 12:00 50 07/02/20 12:00 97.3 74 21 126/68 (87) 98 07/02/20 12:00 73 07/02/20 08:00 50 07/02/20 08:00 Mechanical Ventilator 07/02/20 08:00 97.2 72 20 128/71 (90) 98 07/02/20 08:00 71 07/02/20 07:10 71 21 50 07/02/20 04:38 40 07/02/20 04:00 73 07/02/20 04:00 Mechanical Ventilator 07/02/20 04:00 97.2 74 22 129/76 (93) 98 07/02/20 02:57 74 18 50 07/02/20 00:00 Mechanical Ventilator 07/02/20 00:00 40 07/02/20 00:00 75 07/02/20 00:00 97.0 70 20 114/66 (82) 99 07/01/20 23:30 72 19 50 07/01/20 21:47 Mechanical Ventilator 07/01/20 20:00 96.5 72 21 124/74 (91) 98 07/01/20 20:00 40 07/01/20 20:00 Mechanical Ventilator 07/01/20 20:00 72 07/01/20 19:30 71 21 50 07/01/20 16:00 Mechanical Ventilator 07/01/20 16:00 73 07/01/20 16:00 96.3 75 25 136/79 (98) 98 07/01/20 16:00 40 07/01/20 15:10 74 24 50 Intake and Output 07/01/20 07/02/20 19:00 07:00 Intake Total 1190 ml 650 ml Output Total 100 ml 500 ml Balance 1090 ml 150 ml Free Water 90 ml 50 ml Tube Feeding 600 ml 550 ml Blood Product 500 ml 50 ml Output Urine Total 30 ml 100 ml Stool Total 70 ml 400 ml # Bowel Movements 5 4 Current Medications Medications (Trade) Dose Ordered Sig/Maryjane Route PRN Reason Start Time Stop Time Status Last Admin Dose Admin Acetaminophen (Tylenol) 650 mg Q4H PRN GT Mild Pain (Pain Scale 1-3) 06/18/20 23:00 07/18/20 22:59 Acetaminophen (Tylenol) 650 mg Q4HR PRN GT FEVER 06/14/20 09:45 07/14/20 09:44 06/19/20 20:45 Aluminum Hydroxide (Amphojel) 1,920 mg Q6H GT 06/17/20 10:00 07/17/20 09:59 07/02/20 10:40 Ascorbic Acid (Vitamin C) 500 mg DAILY GT 07/01/20 09:00 07/31/20 08:59 07/02/20 08:36 Chlorhexidine Gluconate (Inés-Hex 2%) 1 applic DAILY@1999 TOPIC 06/21/20 20:00 09/19/20 19:59 07/01/20 20:16 Dextrose (Dextrose 50%) 25 ml Q30M PRN IV Hypoglycemia 06/28/20 18:30 09/26/20 18:29 Dextrose (Dextrose 50%) 50 ml Q30M PRN IV Hypoglycemia 06/28/20 18:30 09/26/20 18:29 Epoetin Bonilla (Epoetin Bonilla(ESRD on dialysis)) 10,000 unit TUE-TUE-TUE SUBQ 07/02/20 21:00 09/16/20 20:59 Haloperidol Lactate (Haldol) 5 mg Q6H PRN IM Agitation 06/21/20 23:15 08/05/20 23:14 06/25/20 18:17 Insulin Aspart (NovoLOG) EVERY 6 HOURS SUBQ 06/29/20 00:00 09/27/20 00:00 06/29/20 18:13 Lansoprazole (Prevacid) 30 mg Q12HR GT 06/30/20 21:00 07/30/20 20:59 07/02/20 08:36 Levothyroxine Sodium (Synthroid) 88 mcg DAILY@0630 GT 07/03/20 06:30 08/02/20 06:29 Vancomycin HCl ([facility] pharmacy to dose) 1 ea DAILY PRN MISC Per rx protocol 06/27/20 11:30 07/18/20 23:59 Laboratory Tests 07/01/20 17:41: POC Whole Blood Glucose 133H 07/01/20 18:00: Random Vancomycin Level 25.7 07/01/20 23:46: POC Whole Blood Glucose 122H 07/02/20 03:35: White Blood Count 14.0H, Red Blood Count 2.74L, Hemoglobin 8.3L, Hematocrit 26.1L, Mean Corpuscular Volume 95, Mean Corpuscular Hemoglobin 30.3, Mean Corpuscular Hemoglobin Concent 31.8L, Red Cell Distribution Width 15.4H, Platelet Count 78L, Mean Platelet Volume 11.4H, Neutrophils (%) (Auto) , Lymphocytes (%) (Auto) , Monocytes (%) (Auto) , Eosinophils (%) (Auto) , Basophils (%) (Auto) , Differential Total Cells Counted 100, Neutrophils % (Manual) 74, Lymphocytes % (Manual) 14L, Monocytes % (Manual) 5, Eosinophils % (Manual) 7H, Basophils % (Manual) 0, Band Neutrophils 0, Platelet Estimate DecreasedL, Platelet Morphology , Giant Platelets Occasional, Hypochromasia 1+, Anisocytosis 1+, Sodium Level 133L, Potassium Level 4.8, Chloride Level 99, Carbon Dioxide Level 33H, Anion Gap 1L, Blood Urea Nitrogen 67H, Creatinine 3.9H , Estimat Glomerular Filtration Rate 19.8, Glucose Level 119H, Calcium Level 8.0L, Phosphorus Level 3.9, Magnesium Level 2.6H, Total Bilirubin 0.3, Aspartate Amino Transf (AST/SGOT) 205H, Alanine Aminotransferase (ALT/SGPT) 214H, Alkaline Phosphatase 510H, C-Reactive Protein, Quantitative 11.1H, Pro-B-Type Natriuretic Peptide > 53072P, Total Protein 6.9, Albumin 1.5L, Globulin 5.4, Albumin/Globulin Ratio 0.3L 07/02/20 05:22: POC Whole Blood Glucose 106 07/02/20 12:24: POC Whole Blood Glucose 99 Height (Feet): 5 Height (Inches): 8.00 Weight (Pounds): 143 General Appearance: no apparent distress, lethargic EENT: other - Trach to vent Cardiovascular: normal rate Respiratory/Chest: decreased breath sounds Abdomen: distended Leonidas Honeycutt MD Jul 02, 2020 13:31
[2020-07-02 16:00] VITALS: BP 117/80
--- NOTE | 2020-07-02 16:24 | NUR ---
INSURANCE CLINICALS AND REVIEW FAXED TO [facility] [phone]
--- NOTE | 2020-07-02 18:05 | Surgery Progress Note ---
Surgery Progress Note Subjective Additional Comments wbc improving dressings going well no complaints on vent Objective Last 24 Hour Vital Signs Date Time Temp Pulse Resp B/P (MAP) Pulse Ox O2 Delivery O2 Flow Rate FiO2 07/02/20 16:00 73 07/02/20 16:00 50 07/02/20 16:00 96.0 70 24 117/80 (92) 100 07/02/20 16:00 Mechanical Ventilator 07/02/20 15:15 82 16 50 07/02/20 12:00 Mechanical Ventilator 07/02/20 12:00 50 07/02/20 12:00 97.3 74 21 126/68 (87) 98 07/02/20 12:00 73 07/02/20 11:10 74 19 50 07/02/20 08:00 50 07/02/20 08:00 Mechanical Ventilator 07/02/20 08:00 97.2 72 20 128/71 (90) 98 07/02/20 08:00 71 07/02/20 07:10 71 21 50 07/02/20 04:38 40 07/02/20 04:00 73 07/02/20 04:00 Mechanical Ventilator 07/02/20 04:00 97.2 74 22 129/76 (93) 98 07/02/20 02:57 74 18 50 07/02/20 00:00 Mechanical Ventilator 07/02/20 00:00 40 07/02/20 00:00 75 07/02/20 00:00 97.0 70 20 114/66 (82) 99 07/01/20 23:30 72 19 50 07/01/20 21:47 Mechanical Ventilator 07/01/20 20:00 96.5 72 21 124/74 (91) 98 07/01/20 20:00 40 07/01/20 20:00 Mechanical Ventilator 07/01/20 20:00 72 07/01/20 19:30 71 21 50 I&O Intake and Output 07/01/20 07/02/20 19:00 07:00 Intake Total 1190 ml 650 ml Output Total 100 ml 500 ml Balance 1090 ml 150 ml Free Water 90 ml 50 ml Tube Feeding 600 ml 550 ml Blood Product 500 ml 50 ml Output Urine Total 30 ml 100 ml Stool Total 70 ml 400 ml # Bowel Movements 5 4 Dressing: saturated Cardiovascular: RSR Respiratory: decreased breath sounds Abdomen: non-tender, present bowel sounds Extremities: no tenderness, no cyanosis Laboratory Tests Test 07/01/20 23:46 07/02/20 03:35 07/02/20 05:22 07/02/20 12:24 POC Whole Blood Glucose 122 MG/DL (74-106) H 106 MG/DL (74-106) 99 MG/DL (74-106) White Blood Count 14.0 K/UL (4.8-10.8) H Red Blood Count 2.74 M/UL (4.70-6.10) L Hemoglobin 8.3 G/DL (14.2-18.0) L Hematocrit 26.1 % (42.0-52.0) L Mean Corpuscular Volume 95 FL (80-99) Mean Corpuscular Hemoglobin 30.3 PG (27.0-31.0) Mean Corpuscular Hemoglobin Concent 31.8 G/DL (32.0-36.0) L Red Cell Distribution Width 15.4 % (11.6-14.8) H Platelet Count 78 K/UL (150-450) L Mean Platelet Volume 11.4 FL (6.5-10.1) H Neutrophils (%) (Auto) % (45.0-75.0) Lymphocytes (%) (Auto) % (20.0-45.0) Monocytes (%) (Auto) % (1.0-10.0) Eosinophils (%) (Auto) % (0.0-3.0) Basophils (%) (Auto) % (0.0-2.0) Differential Total Cells Counted 100 Neutrophils % (Manual) 74 % (45-75) Lymphocytes % (Manual) 14 % (20-45) L Monocytes % (Manual) 5 % (1-10) Eosinophils % (Manual) 7 % (0-3) H Basophils % (Manual) 0 % (0-2) Band Neutrophils 0 % (0-8) Platelet Estimate Decreased L Platelet Morphology Giant Platelets Occasional Hypochromasia 1+ Anisocytosis 1+ Sodium Level 133 MMOL/L (136-145) L Potassium Level 4.8 MMOL/L (3.5-5.1) Chloride Level 99 MMOL/L (98-107) Carbon Dioxide Level 33 MMOL/L (21-32) H Anion Gap 1 mmol/L (5-15) L Blood Urea Nitrogen 67 mg/dL (7-18) H Creatinine 3.9 MG/DL (0.55-1.30) H Estimat Glomerular Filtration Rate 19.8 mL/min (>60) Glucose Level 119 MG/DL (74-106) H Calcium Level 8.0 MG/DL (8.5-10.1) L Phosphorus Level 3.9 MG/DL (2.5-4.9) Magnesium Level 2.6 MG/DL (1.8-2.4) H Total Bilirubin 0.3 MG/DL (0.2-1.0) Aspartate Amino Transf (AST/SGOT) 205 U/L (15-37) H Alanine Aminotransferase (ALT/SGPT) 214 U/L (12-78) H Alkaline Phosphatase 510 U/L (46-116) H C-Reactive Protein, Quantitative 11.1 mg/dL (0.00-0.90) H Pro-B-Type Natriuretic Peptide > 53529 pg/mL (0-125) H Total Protein 6.9 G/DL (6.4-8.2) Albumin 1.5 G/DL (3.4-5.0) L Globulin 5.4 g/dL Albumin/Globulin Ratio 0.3 (1.0-2.7) L Test 07/02/20 16:53 POC Whole Blood Glucose 94 MG/DL (74-106) Plan Problems: (1) Leukocytosis Assessment & Plan: 54-year-old male multiple comorbidities admitted for abnormal chest x-ray potentially pneumonia leukocytosis abnormal labs. Patient identified to have a prior left BKA surgical sutures still in place as well as a surgical sacral wound with sutures in place. Considerations of dehiscence being identified and potential etiology of infection. After evaluation unlikely source of infection though the sacral wound was looked to be dehiscing at the inferior aspect. No acute surgical mention at this time We will discussed care plan with PCP Recommend follow-up with initial surgeon considerations of removal of surgical sutures Care plan initiated worsening lft's US ordered ? shayla Extensive airspace consolidations at the lung bases consistent with severe multifocal infiltrate. Associated, large bilateral pleural effusions. Evaluation of the abdominal viscera is markedly suboptimal due to poor CT technique and lack of intravenous contrast. No definite hepatic lesion. No definite cholelithiasis. Mild colon wall thickening. The spleen, pancreas, and adrenal glands are not visualized well enough reliable assessment. No definite hydronephrosis. The kidneys are hyperdense, correlate for medical renal disease. No nephrolithiasis. Sparrow catheter within a decompressed urinary bladder. Moderate diverticulosis, without acute diverticulitis. No small bowel obstruction. PEG tube presumably within the stomach. Atherosclerotic calcifications of the aorta. Low-attenuation of the intravascular blood pool, correlate for anemia. IVC filter, incidentally noted. Air within the subcutaneous fat overlying the sacrum with skin thickening, correlate with physical exam for sacral decubitus ulcer. Degenerative changes of the spine. Bilateral pars defects at L5 without anterolisthesis of L5 on S1. IMPRESSION: Extensive airspace consolidations at the lung bases consistent with severe multifocal infiltrate. Associated, large bilateral pleural effusions. Evaluation of the abdominal viscera is markedly suboptimal due to poor CT technique and lack of intravenous contrast. Moderate diverticulosis, without acute diverticulitis. No small bowel obstruction. PEG tube presumably within the stomach. Note, if there is suspicion for colitis consider repeat scan with improved CT technique/intravenous contrast. Mild gallbladder wall thickening without definite evidence of cholelithiasis. Air within the subcutaneous fat overlying the sacrum with skin thickening, correlate with physical exam for sacral decubitus ulcer. Bilateral pars defects at L5. The kidneys are hyperdense, correlate for medical renal disease.. There is prompt uptake within the liver with washout of radiotracer from the liver on subsequent imaging. There is excretion into the biliary ducts. Gallbladder activity is present in a timely fashion indicating patency of the cystic duct. Very scant bowel activity is demonstrated concerning for common bile duct obs truction or sphincter dysfunction. IMPRESSION: No evidence to suggest cholecystitis. Gallbladder activity is present in a ti rubia fashion indicating patency of the cystic duct. Very little radiotracer noted in the small bowel. Correlate with LFTs as a degree of common bile duct obstruction or sphincter dysfunction not excluded. Consider further evaluation with MRCP. (2) Surgical wound dehiscence Assessment & Plan: Patient identified to have a left BKA surgical sutures in place flap looks like it is taken well no signs of infection at this time no signs of seroma hematoma or drainage. Unknown exact length or duration of potential prior left BKA and until then recommend leaving sutures in place as it may be too early though it does look well-healed. If able to obtain prior records we will be happy to remove sutures otherwise will need follow-up with primary surgeon furthermore patient identified to have a surgical wound in the sacral area seems he probably potentially had a stage IV sacral decubitus ulcer that had debridement and primary closure. Fortunately. Sutures are still in place and it looks like the inferior aspect may be slowly dehiscing. There is no significant drainage no foul odor no signs of active infection unknown if bone was palpable prior. Can consider removing surgical sutures but again would recommend obtaining prior records of possible prior to doing so. Also recommend following up with primary surgeon as this may need ongoing continued care. Will follow with recommendations and as information is available. Continue current care plan. Wash wounds daily with normal saline. Apply skin protectant Optifoam dressing. Turn every 2 hours. Offload pressure with pillows and air mattress. Nut ritional optimization. Worsening leukocytosis. Patient continues to have dehiscence of the prior primarily closed sacral decubitus ulcer. The sutures are was nearly torn out and the wound is opening and saturating with stool with bowel movements now has rectal tube. Unfortunately I see significant concern given dehiscence and therefore sutures were cut at the bedside and wound immediately opened under some tension. Underlying Vicryl sutures identified. There is some backbleeding some granulation tissue but definitely no take or closure of the stage IV sacral decubitus ulcer that was identified. Nonexcisional debridement done with gauze and jorge layer of slough and biofilm was removed wound was cleaned packing dressings applied. No abscess no purulent drainage unlikely etiology of infection. (3) History of left below knee amputation (4) Malnutrition Assessment & Plan: DAILY ESTIMATED NEEDS: Needs based on Wound, critical care, underweight/ 55.5kg 25-33 (25-35 w/ HD) kcals/kg 2258-5785 (4802-8568) total kcals 1.25-2 g protein/kg 69-111 g total protein 25-30 mL/kg 5829-2670 total fluid mLs NUTRITION DIAGNOSIS: * Swallowing difficulty R/T respiratory status as evidenced by pt is trach/vent dep, PEG dep. CURRENT TF: Nepro @ 40ml/hr x24 hrs ENTERAL NUTRITION RECOMMENDATIONS: Nepro @ 40ml/hr x 24 hrs to provide 960ml, 1728kcal, 78g prot, 698ml free water * Maintain current TF * HOB over 30 degrees/ water flush per MD ADDITIONAL RECOMMENDATIONS: * Per SNF: HT=69" [id number] -> rec daily calibrated bedscale wt * Monitor lytes: elev K-> now wnl, phos now low * Wound healing: RANDY BID + Nephrovite 1 tab qdaily * Monitor for bm, last bm 06/19, now 06/24 * W/ HD rec to add Prosource 1 pack qdaily for added 11g pro/day. (5) Anemia (6) KERRI (acute kidney injury) (7) Acute respiratory failure (8) Hyperkalemia (9) Anemia (10) Abnormal laboratory test result (11) Chronic respiratory failure Azar Mares Jul 02, 2020 18:05
--- NOTE | 2020-07-02 19:07 | NUR ---
NURSE HAND-OFF REPORT: Important Events on Shift: NA Patient Status: Stable Diet: Vital AF@ 50ml/h Pending Orders: NA Pending Results/Labs:sputum collection Pending MD notification:na Latest Vital Signs: Temperature 96.0 , Pulse 73 , B/P 117 /80 , Respiratory Rate 20 , O2 SAT 100 , Mechanical Ventilator, O2 Flow Rate 15.0 . Vital Sign Comment: stable EKG Rhythm: Sinus Rhythm Rhythm change?: N MD Notified?: N Chao Lipscomb MD Response: No New Orders Received Latest Santiago Fall Score: 95 Fall Risk: High Risk Safety Measures: Call light Within Reach, Bed Alarm Zone 2, Side Rails Side Rails x3, Bed position Low and Locked. Fall Precautions: Yellow Socks Yellow Gown Door Sign Patient Fall Education Report given to MAX Comer.
--- NOTE | 2020-07-02 19:25 | NUR ---
NURSE NOTES: Received report from Cinthia/ MAX Cortes. pt is sleeping in bed comfortably, no signs of apparent distress noted. Connected to trach to vent with settings as ordered. Gtube patent,flushing and intact. RAC g20 still patent, and Left hand g 22 patent and intact. Attached to cabrera cath still draining dark yellow urine. No pain noted. No facial grimace noted. Noted scant amount bleeding Right upper chest permacath. With restraints on - no skin breakdown noted under the restraints,palpable pulse noted. Noted left upper arm with purplish discoloration and edema, elevated on pillow. Right foot elevated on pillow. Bed in lowest position. Call light within reach. Bed alarm on. ON yellow gown and educated on fall precautions. Continue to plan of care.
[2020-07-02 20:00] VITALS: BP 122/67
[2020-07-02] MEDS: Dyna-Hex 2% Top Sol 2oz TOPIC SCH (20:11)
[2020-07-02] MEDS: Epoetin Alfa-EPBX(ESRD on dialysis)10,000 unit/ml vial SUBQ SCH (20:37)
--- NOTE | 2020-07-02 21:11 | General Progress Note ---
Subjective ROS Limited/Unobtainable: Yes Allergies: Coded Allergies: No Known Allergies (Unverified , 06/13/20) Objective Last 24 Hour Vital Signs Date Time Temp Pulse Resp B/P (MAP) Pulse Ox O2 Delivery O2 Flow Rate FiO2 07/02/20 18:38 73 20 50 07/02/20 16:00 73 07/02/20 16:00 50 07/02/20 16:00 96.0 70 24 117/80 (92) 100 07/02/20 16:00 Mechanical Ventilator 07/02/20 15:15 82 16 50 07/02/20 12:00 Mechanical Ventilator 07/02/20 12:00 50 07/02/20 12:00 97.3 74 21 126/68 (87) 98 07/02/20 12:00 73 07/02/20 11:10 74 19 50 07/02/20 08:00 50 07/02/20 08:00 Mechanical Ventilator 07/02/20 08:00 97.2 72 20 128/71 (90) 98 07/02/20 08:00 71 07/02/20 07:10 71 21 50 07/02/20 04:38 40 07/02/20 04:00 73 07/02/20 04:00 Mechanical Ventilator 07/02/20 04:00 97.2 74 22 129/76 (93) 98 07/02/20 02:57 74 18 50 07/02/20 00:00 Mechanical Ventilator 07/02/20 00:00 40 07/02/20 00:00 75 07/02/20 00:00 97.0 70 20 114/66 (82) 99 07/01/20 23:30 72 19 50 07/01/20 21:47 Mechanical Ventilator Intake and Output 07/01/20 07/02/20 19:00 07:00 Intake Total 1190 ml 650 ml Output Total 100 ml 500 ml Balance 1090 ml 150 ml Free Water 90 ml 50 ml Tube Feeding 600 ml 550 ml Blood Product 500 ml 50 ml Output Urine Total 30 ml 100 ml Stool Total 70 ml 400 ml # Bowel Movements 5 4 Laboratory Tests 07/01/20 23:46: POC Whole Blood Glucose 122H 07/02/20 03:35: White Blood Count 14.0H, Red Blood Count 2.74L, Hemoglobin 8.3L, Hematocrit 26.1L, Mean Corpuscular Volume 95, Mean Corpuscular Hemoglobin 30.3, Mean Corpuscular Hemoglobin Concent 31.8L, Red Cell Distribution Width 15.4H, Platelet Count 78L, Mean Platelet Volume 11.4H, Neutrophils (%) (Auto) , Lymphocytes (%) (Auto) , Monocytes (%) (Auto) , Eosinophils (%) (Auto) , Basophils (%) (Auto) , Differential Total Cells Counted 100, Neutrophils % (Manual) 74, Lymphocytes % (Manual) 14L, Monocytes % (Manual) 5, Eosinophils % (Manual) 7H, Basophils % (Manual) 0, Band Neutrophils 0, Platelet Estimate DecreasedL, Platelet Morphology , Giant Platelets Occasional, Hypochromasia 1+, Anisocytosis 1+, Sodium Level 133L, Potassium Level 4.8, Chloride Level 99, Carbon Dioxide Level 33H, Anion Gap 1L, Blood Urea Nitrogen 67H, Creatinine 3.9H , Estimat Glomerular Filtration Rate 19.8, Glucose Level 119H, Calcium Level 8.0L, Phosphorus Level 3.9, Magnesium Level 2.6H, Total Bilirubin 0.3, Aspartate Amino Transf (AST/SGOT) 205H, Alanine Aminotransferase (ALT/SGPT) 214H, Alkaline Phosphatase 510H, C-Reactive Protein, Quantitative 11.1H, Pro-B-Type Natriuretic Peptide > 06043L, Total Protein 6.9, Albumin 1.5L, Globulin 5.4, Albumin/Globulin Ratio 0.3L 07/02/20 05:22: POC Whole Blood Glucose 106 07/02/20 12:24: POC Whole Blood Glucose 99 07/02/20 16:53: POC Whole Blood Glucose 94 Height (Feet): 5 Height (Inches): 8.00 Weight (Pounds): 143 Assessment/Plan Problem List: (1) Anemia ICD Codes: D64.9 - Anemia, unspecified SNOMED: 836965625 (2) KERRI (acute kidney injury) ICD Codes: N17.9 - Acute kidney failure, unspecified SNOMED: 8770367, 58142398 (3) Acute respiratory failure ICD Codes: J96.00 - Acute respiratory failure, unspecified whether with hypoxia or hypercapnia SNOMED: 55720801 Qualifiers: Qualified Codes: J96.02 - Acute respiratory failure with hypercapnia (4) Hyperkalemia ICD Codes: E87.5 - Hyperkalemia SNOMED: 74305216 (5) Abnormal laboratory test result ICD Codes: R89.9 - Unspecified abnormal finding in specimens from other organs, systems and tissues SNOMED: 825727879 (6) Anemia ICD Codes: D64.9 - Anemia, unspecified SNOMED: 269624468 Status: progressing Assessment/Plan: afebrile renal failure hd per renal check lyte abnormality resp insuff er dr jones sacral wound dehiscence had dehiscence chf s/p acute mi Neida Apple MD Jul 02, 2020 21:11
--- NOTE | 2020-07-02 21:35 | General Progress Note ---
Subjective Allergies: Coded Allergies: No Known Allergies (Unverified , 06/13/20) Subjective above noted stools liquid, in rectal tube brown tolerating TF Objective Last 24 Hour Vital Signs Date Time Temp Pulse Resp B/P (MAP) Pulse Ox O2 Delivery O2 Flow Rate FiO2 07/02/20 20:00 50 07/02/20 20:00 Mechanical Ventilator 07/02/20 20:00 97.7 73 20 122/67 (85) 98 07/02/20 20:00 73 07/02/20 18:38 73 20 50 07/02/20 16:00 73 07/02/20 16:00 50 07/02/20 16:00 96.0 70 24 117/80 (92) 100 07/02/20 16:00 Mechanical Ventilator 07/02/20 15:15 82 16 50 07/02/20 12:00 Mechanical Ventilator 07/02/20 12:00 50 07/02/20 12:00 97.3 74 21 126/68 (87) 98 07/02/20 12:00 73 07/02/20 11:10 74 19 50 07/02/20 08:00 50 07/02/20 08:00 Mechanical Ventilator 07/02/20 08:00 97.2 72 20 128/71 (90) 98 07/02/20 08:00 71 07/02/20 07:10 71 21 50 07/02/20 04:38 40 07/02/20 04:00 73 07/02/20 04:00 Mechanical Ventilator 07/02/20 04:00 97.2 74 22 129/76 (93) 98 07/02/20 02:57 74 18 50 07/02/20 00:00 Mechanical Ventilator 07/02/20 00:00 40 07/02/20 00:00 75 07/02/20 00:00 97.0 70 20 114/66 (82) 99 07/01/20 23:30 72 19 50 07/01/20 21:47 Mechanical Ventilator Intake and Output 07/01/20 07/02/20 19:00 07:00 Intake Total 1190 ml 650 ml Output Total 100 ml 500 ml Balance 1090 ml 150 ml Free Water 90 ml 50 ml Tube Feeding 600 ml 550 ml Blood Product 500 ml 50 ml Output Urine Total 30 ml 100 ml Stool Total 70 ml 400 ml # Bowel Movements 5 4 Laboratory Tests 07/01/20 23:46: POC Whole Blood Glucose 122H 07/02/20 03:35: White Blood Count 14.0H, Red Blood Count 2.74L, Hemoglobin 8.3L, Hematocrit 26.1L, Mean Corpuscular Volume 95, Mean Corpuscular Hemoglobin 30.3, Mean Corpuscular Hemoglobin Concent 31.8L, Red Cell Distribution Width 15.4H, Platelet Count 78L, Mean Platelet Volume 11.4H, Neutrophils (%) (Auto) , Lymphocytes (%) (Auto) , Monocytes (%) (Auto) , Eosinophils (%) (Auto) , Basophils (%) (Auto) , Differential Total Cells Counted 100, Neutrophils % (Manual) 74, Lymphocytes % (Manual) 14L, Monocytes % (Manual) 5, Eosinophils % (Manual) 7H, Basophils % (Manual) 0, Band Neutrophils 0, Platelet Estimate DecreasedL, Platelet Morphology , Giant Platelets Occasional, Hypochromasia 1+, Anisocytosis 1+, Sodium Level 133L, Potassium Level 4.8, Chloride Level 99, Carbon Dioxide Level 33H, Anion Gap 1L, Blood Urea Nitrogen 67H, Creatinine 3.9H , Estimat Glomerular Filtration Rate 19.8, Glucose Level 119H, Calcium Level 8.0L, Phosphorus Level 3.9, Magnesium Level 2.6H, Total Bilirubin 0.3, Aspartate Amino Transf (AST/SGOT) 205H, Alanine Aminotransferase (ALT/SGPT) 214H, Alkaline Phosphatase 510H, C-Reactive Protein, Quantitative 11.1H, Pro-B-Type Natriuretic Peptide > 51066C, Total Protein 6.9, Albumin 1.5L, Globulin 5.4, Albumin/Globulin Ratio 0.3L 07/02/20 05:22: POC Whole Blood Glucose 106 07/02/20 12:24: POC Whole Blood Glucose 99 07/02/20 16:53: POC Whole Blood Glucose 94 Height (Feet): 5 Height (Inches): 8.00 Weight (Pounds): 143 Objective Debilitated elderly man NCAT supple Coarse BS RRR abd sofft, flat, (+) GT s/p LLE BKA Assessment/Plan Status: progressing Assessment/Plan: Assessment Abnormal LFT - improving - ? infectious hepatitis - Hep A and B negative - ? vascular - ? meds - ? other Gross hematuria - improved Acute anemia, ? urinary losses, ? GI loss ? surgical loss declining platelet count Recommendations - f/u all liver tests - continue to hold seroquel - follow LFT and CBC - family to decide on a level of care plan - no plans for GI w/u, per family discussion - TF - Transfuse Fco Banerjee MD Jul 02, 2020 21:35
--- NOTE | 2020-07-02 22:47 | Psychiatric Progress Note ---
Psychiatry Progress Note Psychiatry Progress Note Subjective the pt still needs prns agitation Medications Current Medications Medications (Trade) Dose Ordered Sig/Maryjane Route PRN Reason Start Time Stop Time Status Last Admin Dose Admin Acetaminophen (Tylenol) 650 mg Q4H PRN GT Mild Pain (Pain Scale 1-3) 06/18/20 23:00 07/18/20 22:59 Acetaminophen (Tylenol) 650 mg Q4HR PRN GT FEVER 06/14/20 09:45 07/14/20 09:44 06/19/20 20:45 Aluminum Hydroxide (Amphojel) 1,920 mg Q6H GT 06/17/20 10:00 07/17/20 09:59 07/02/20 21:46 Ascorbic Acid (Vitamin C) 500 mg DAILY GT 07/01/20 09:00 07/31/20 08:59 07/02/20 08:36 Chlorhexidine Gluconate (Inés-Hex 2%) 1 applic DAILY@1999 TOPIC 06/21/20 20:00 09/19/20 19:59 07/02/20 20:11 Dextrose (Dextrose 50%) 25 ml Q30M PRN IV Hypoglycemia 06/28/20 18:30 09/26/20 18:29 Dextrose (Dextrose 50%) 50 ml Q30M PRN IV Hypoglycemia 06/28/20 18:30 09/26/20 18:29 Epoetin Bonilla (Epoetin Bonilla(ESRD on dialysis)) 10,000 unit TUE-TUE-TUE SUBQ 07/02/20 21:00 09/16/20 20:59 07/02/20 20:37 Haloperidol Lactate (Haldol) 5 mg Q6H PRN IM Agitation 06/21/20 23:15 08/05/20 23:14 06/25/20 18:17 Insulin Aspart (NovoLOG) EVERY 6 HOURS SUBQ 06/29/20 00:00 09/27/20 00:00 06/29/20 18:13 Lansoprazole (Prevacid) 30 mg Q12HR GT 06/30/20 21:00 07/30/20 20:59 07/02/20 20:11 Levothyroxine Sodium (Synthroid) 88 mcg DAILY@0630 GT 07/03/20 06:30 08/02/20 06:29 [facility] 1 [facility]a DAILY PRN MISC Per rx protocol 06/27/20 11:30 07/18/20 23:59 Neurological/Psychiatric: Reports: anxiety, depressed, emotional problems; Denies: no symptoms, headache, numbness, paresthesia, pre-existing deficit, seizure, tingling, tremors, weakness, other Allergies: Coded Allergies: No Known Allergies (Unverified , 06/13/20) Objective Data Height (Feet): 5 Height (Inches): 8.00 Weight (Pounds): 143 General Appearance: no apparent distress, lethargic Additional Comments: awake, eyes open. Unable to communicate. Mood is anxious and depressed. Affect is blunted, congruent with mood. Thought process concrete. Thought content, no suicidal or homicidal ideation. Thought content is impaired. Insight and judgment is impaired. Assessment/Plan [place] I: ASSESSMENT: [place] I dementia. [place] II Deferred. [place] III As above. [place] IV Low. [place] V 20. PLAN: 1. Haldol IM p.r.n. 2. Patient is on bilateral restraints. 3. Continue to follow and readjust the medications. Status: progressing Status Narrative ASSESSMENT: [place] I dementia. [place] II Deferred. [place] III As above. [place] IV Low. [place] V 20. PLAN: 1. Haldol IM p.r.n. 2. Patient is on bilateral restraints. 3. Continue to follow and readjust the medications. Assessment/Plan: ASSESSMENT: [place] I dementia. [place] II Deferred. [place] III As above. [place] IV Low. [place] V 20. PLAN: 1. Haldol IM p.r.n. 2. Patient is on bilateral restraints. 3. Continue to follow and readjust the medications. Neftaly Delacruz MD Jul 02, 2020 22:47
--- NOTE | 2020-07-02 23:29 | NUR ---
NURSE NOTES: Pt is sleeping comfortably in bed. No signs of apparent respiratory distress, o2 sat- 98% Bed in lowest position, Alarm on, Call light within reach. Bed in lowest position .
[2020-07-03] VITALS: BP 112/59
--- NOTE | 2020-07-03 01:34 | NUR ---
NURSE NOTES: Sponge bath given, cleaned pt, dressing done for the Right IJ noted moderate amount of bleeding. Rectal tube reinserted, Noted detach to patient. Bed in lowest position, Call light within reach. Continue to plan of care.
[2020-07-03] MEDS: Aluminum Hydroxide Gel Susp 15ml GT SCH ×4 (03:18→21:42)
[2020-07-03 04:00] VITALS: BP 119/79
[2020-07-03 04:58] LABS: HEMATOCRIT 25.3 % (42.0-52.0); MEAN CORPUSCULAR VOLUME 95 FL (80-99); PLATELET COUNT 70 K/UL (150-450); RED BLOOD COUNT 2.66 M/UL (4.70-6.10); RED CELL DISTRIBUTION WIDTH 15.3 % (11.6-14.8)
[2020-07-03] MEDS: NovoLOG Insulin Flexpen SUBQ SCH ×3 (05:07→16:58)
[2020-07-03 05:29] LABS: ALANINE AMINOTRANSFERASE 168 U/L (12-78); ALBUMIN 1.5 G/DL (3.4-5.0); ALBUMIN/GLOBULIN RATIO 0.3 (1.0-2.7); ALKALINE PHOSPHATASE 494 U/L (46-116); ASPARTATE AMINO TRANSFERASE 142 U/L (15-37); BILIRUBIN,TOTAL 0.4 MG/DL (0.2-1.0); BLOOD UREA NITROGEN 78 mg/dL (7-18); CALCIUM 8.1 MG/DL (8.5-10.1); CARBON DIOXIDE 33 MMOL/L (21-32); CHLORIDE 99 MMOL/L (98-107); CREATININE 4.6 MG/DL (0.55-1.30); PHOSPHORUS 4.2 MG/DL (2.5-4.9); POTASSIUM 5.1 MMOL/L (3.5-5.1); SODIUM 133 MMOL/L (136-145)
--- NOTE | 2020-07-03 06:07 | NUR ---
NURSE NOTES: Pt is sleeping comfortably in bed. No signs of apparent respiratory distress, o2 sat- 97% Bed in lowest position, Alarm on, Call light within reach. Bed in lowest position .
--- NOTE | 2020-07-03 07:03 | NUR ---
NURSE HAND-OFF REPORT: Important Events on Shift: Still bleeding on Right upper chest with IJ moderately. Patient Status: Guarding/ stable Diet: GTF Pending Orders: none Pending Results/Labs:none Pending MD notification: none Latest Vital Signs: Temperature 97.1 , Pulse 71 , B/P 119 /79 , Respiratory Rate 18 , O2 SAT 97 , Mechanical Ventilator, O2 Flow Rate 15.0 . Vital Sign Comment: WNL EKG Rhythm: Sinus Rhythm Rhythm change?: N MD Notified?: N -Dr. Ruel BENDER Response: No New Orders Received Latest [place] Fall Score: 95 Fall Risk: High Risk Safety Measures: Call light Within Reach, Bed Alarm Zone 2, Side Rails Side Rails x3, Bed position Low and Locked. Fall Precautions: Yellow Socks Yellow Gown Door Sign Patient Fall Education Report given to [MAX Vicente].
--- NOTE | 2020-07-03 07:09 | Hematology/Onc Progress Note ---
Assessment/Plan Assessment/Plan ASSESSMENT AND PLAN: #. Anemia that is likely due to chronic disease, r/o gi bleeding --> anemia panel has been reviewed, ferritin is >2000 --> no e/o hemolysis is noted --> transfuse on prn basis --> blood consent has been signed --> hgb 7.4-->7.4-->7-->6.7-->8-->7.5-->8.4-->9.1->8.1-->5.6->7.4-->7-->6.6->8 --> folic acid is wnl --> 1 unit prbc 06/18 --> epogen has been started # Acute DVT in the distal right common femoral vein and profunda femoris vein. --> DUPLEX. Acute DVT in the distal right common femoral vein and profunda femoris vein. 2. No evidence of left lower extremity DVT. --> cannot anticoagulate at this time --> 06/17 s/p ivc filter placement --> hold off anticoag # Leukocytosis is likely due to b/l infiltrates --> on abx as per id -> ABX yolis/vanc-->yolis/linezolid--> yolis/levaq-->linezolid->vanc --> continue trend --> wbc 15-->12->9.5-->13-->14 # Thrombocytopenia likely due to infection --> plt 82-->67->78 --> hep and hiv neg # Respiratory failure in this patient with vent-dependent respiratory failure. 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 # Dysphagia --> status post PEG placement. # Renal failure. -> per Dr. Honeycutt. # Hyperkalemia and kayxelate as needed. # Dvt ppx scds Appreciate consultation and angela RN Subjective Constitutional: Denies: no symptoms, chills, fever, malaise, weakness, other Cardiovascular: Denies: no symptoms, chest pain, edema, irregular heart rate, lightheadedness, palpitations, syncope, other Genitourinary: Denies: no symptoms, burning, discharge, frequency, flank pain, hematuria, incontinence, pain, urgency, other Neurologic/Psychiatric: Denies: no symptoms, anxiety, depressed, emotional problems, headache, numbness, paresthesia, pre-existing deficit, seizure, tingling, tremors, weakness, other Endocrine: Denies: no symptoms, excessive sweating, flushing, intolerance to cold, intolerance to heat, increased hunger, increased thirst, increased urine, unexplained weight gain, unexplained weight loss, other Hematologic/Lymphatic: Denies: no symptoms, anemia, easy bleeding, easy bruising, adenopathy, other Allergies: Coded Allergies: No Known Allergies (Unverified , 06/13/20) Subjective 06/16 meds noted, labs reviewed, vent to trach, for ivc filter potentially 06/17 labs noted, meds reviewed, for ivc filter once covid neg 06/18 labs are noted, on vent and gt, 1 unit prbc ordered 06/19 labs pending, is s/p ivcf placement yesterday 06/20 for hd nontunneled cathter placement, no bleeding 06/22 labs noted, no bleeding, found down overnight, got ct brain, is neg 06/23 overnight is agitated and requiring restraints 06/24 labs noted, meds reviewed, hgb pending for am, restraints 06/25 labs reviewed, meds noted, no bleeding, hgb improved 06/26 per Rn, with rapid response overnight hr is improved, meds noted 06/27 labs reviewed, meds noted, no bleeding, hgb 5.6, wbc elevated, to get 2 unit prbc 06/29 on vanc, wbc 13, hgb 7.3, plt 88, on vanc 06/30 meds reviewed, hgb at 7, occult +, as per gi care, with diarrhea 07/01 plt 67, hgb 6.6, to get 2 units prbc, angela RN at bedside 07/02 RUC permacath reviewed, minimal bleeding, meds noted 07/03 gt feeds, meds noted, no bleeding, labs reviewed Objective Objective Current Medications Medications (Trade) Dose Ordered Sig/Maryjane Route PRN Reason Start Time Stop Time Status Last Admin Dose Admin Acetaminophen (Tylenol) 650 mg Q4H PRN GT Mild Pain (Pain Scale 1-3) 06/18/20 23:00 07/18/20 22:59 Acetaminophen (Tylenol) 650 mg Q4HR PRN GT FEVER 06/14/20 09:45 07/14/20 09:44 06/19/20 20:45 Aluminum Hydroxide (Amphojel) 1,920 mg Q6H GT 06/17/20 10:00 07/17/20 09:59 07/03/20 03:18 Ascorbic Acid (Vitamin C) 500 mg DAILY GT 07/01/20 09:00 07/31/20 08:59 07/02/20 08:36 Chlorhexidine Gluconate (Inés-Hex 2%) 1 applic DAILY@1999 TOPIC 06/21/20 20:00 09/19/20 19:59 07/02/20 20:11 Dextrose (Dextrose 50%) 25 ml Q30M PRN IV Hypoglycemia 06/28/20 18:30 09/26/20 18:29 Dextrose (Dextrose 50%) 50 ml Q30M PRN IV Hypoglycemia 06/28/20 18:30 09/26/20 18:29 Epoetin Bonilla (Epoetin Bonilla(ESRD on dialysis)) 10,000 unit TUE-TUE-TUE SUBQ 07/02/20 21:00 09/16/20 20:59 07/02/20 20:37 Haloperidol Lactate (Haldol) 5 mg Q6H PRN IM Agitation 06/21/20 23:15 08/05/20 23:14 06/25/20 18:17 Insulin Aspart (NovoLOG) EVERY 6 HOURS SUBQ 06/29/20 00:00 09/27/20 00:00 06/29/20 18:13 Lansoprazole (Prevacid) 30 mg Q12HR GT 06/30/20 21:00 07/30/20 20:59 07/02/20 20:11 Levothyroxine Sodium (Synthroid) 88 mcg DAILY@0630 GT 07/03/20 06:30 08/02/20 06:29 07/03/20 05:39 Vancomycin HCl ([facility] pharmacy to dose) 1 ea DAILY PRN MISC Per rx protocol 06/27/20 11:30 07/18/20 23:59 Last 24 Hour Vital Signs Date Time Temp Pulse Resp B/P (MAP) Pulse Ox O2 Delivery O2 Flow Rate FiO2 07/03/20 04:00 69 07/03/20 04:00 Mechanical Ventilator 07/03/20 04:00 50 07/03/20 04:00 97.1 71 18 119/79 (92) 97 07/03/20 02:51 69 18 50 07/03/20 00:00 97.7 71 19 112/59 (76) 98 07/03/20 00:00 Mechanical Ventilator 07/03/20 00:00 75 07/02/20 22:32 74 18 50 07/02/20 20:00 50 07/02/20 20:00 Mechanical Ventilator 07/02/20 20:00 97.7 73 20 122/67 (85) 98 07/02/20 20:00 73 07/02/20 18:38 73 20 50 07/02/20 16:00 73 07/02/20 16:00 50 07/02/20 16:00 96.0 70 24 117/80 (92) 100 07/02/20 16:00 Mechanical Ventilator 07/02/20 15:15 82 16 50 07/02/20 12:00 Mechanical Ventilator 07/02/20 12:00 50 07/02/20 12:00 97.3 74 21 126/68 (87) 98 07/02/20 12:00 73 07/02/20 11:10 74 19 50 07/02/20 08:00 50 07/02/20 08:00 Mechanical Ventilator 07/02/20 08:00 97.2 72 20 128/71 (90) 98 07/02/20 08:00 71 07/02/20 07:10 71 21 50 07/02/20 04:38 40 07/02/20 04:00 73 07/02/20 04:00 Mechanical Ventilator 07/02/20 04:00 97.2 74 22 129/76 (93) 98 07/02/20 02:57 74 18 50 07/02/20 00:00 Mechanical Ventilator 07/02/20 00:00 40 07/02/20 00:00 75 07/02/20 00:00 97.0 70 20 114/66 (82) 99 07/01/20 23:30 72 19 50 07/01/20 21:47 Mechanical Ventilator 07/01/20 20:00 96.5 72 21 124/74 (91) 98 07/01/20 20:00 40 07/01/20 20:00 Mechanical Ventilator 07/01/20 20:00 72 07/01/20 19:30 71 21 50 07/01/20 16:00 Mechanical Ventilator 07/01/20 16:00 73 07/01/20 16:00 96.3 75 25 136/79 (98) 98 07/01/20 16:00 40 07/01/20 15:10 74 24 50 07/01/20 12:00 40 07/01/20 12:00 Mechanical Ventilator 07/01/20 12:00 Mechanical Ventilator 07/01/20 12:00 97.5 73 23 109/61 (77) 98 07/01/20 11:08 71 20 50 07/01/20 09:00 73 07/01/20 09:00 07/01/20 09:00 Mechanical Ventilator 07/01/20 08:00 Mechanical Ventilator 07/01/20 08:00 40 07/01/20 08:00 97.5 74 21 104/63 (77) 95 07/01/20 07:45 71 Intake and Output 07/02/20 07/03/20 19:00 07:00 Intake Total 690 ml 600 ml Output Total 500 ml 700 ml Balance 190 ml -100 ml Free Water 90 ml 50 ml Tube Feeding 600 ml 500 ml Blood Product 50 ml Output Urine Total 400 ml 300 ml Stool Total 100 ml 400 ml Labs Test 06/30/20 12:52 06/30/20 18:48 07/01/20 04:40 07/01/20 05:00 POC Whole Blood Glucose 102 MG/DL (74-106) 106 MG/DL (74-106) 96 MG/DL (74-106) White Blood Count 15.6 K/UL (4.8-10.8) Red Blood Count 2.18 M/UL (4.70-6.10) Hemoglobin 6.6 G/DL (14.2-18.0) Hematocrit 20.8 % (42.0-52.0) Mean Corpuscular Volume 96 FL (80-99) Mean Corpuscular Hemoglobin 30.2 PG (27.0-31.0) Mean Corpuscular Hemoglobin Concent 31.6 G/DL (32.0-36.0) Red Cell Distribution Width 15.0 % (11.6-14.8) Platelet Count 67 K/UL (150-450) Mean Platelet Volume 10.9 FL (6.5-10.1) Neutrophils (%) (Auto) % (45.0-75.0) Lymphocytes (%) (Auto) % (20.0-45.0) Monocytes (%) (Auto) % (1.0-10.0) Eosinophils (%) (Auto) % (0.0-3.0) Basophils (%) (Auto) % (0.0-2.0) Differential Total Cells Counted 100 Neutrophils % (Manual) 74 % (45-75) Lymphocytes % (Manual) 7 % (20-45) Monocytes % (Manual) 10 % (1-10) Eosinophils % (Manual) 7 % (0-3) Basophils % (Manual) 0 % (0-2) Band Neutrophils 2 % (0-8) Platelet Estimate Decreased Platelet Morphology Normal Hypochromasia 1+ Anisocytosis 1+ Prothrombin Time 12.0 SEC (9.30-11.50) Prothromb Time International Ratio 1.1 (0.9-1.1) Activated Partial Thromboplast Time 32 SEC (23-33) Sodium Level 135 MMOL/L (136-145) Potassium Level 4.2 MMOL/L (3.5-5.1) Chloride Level 101 MMOL/L (98-107) Carbon Dioxide Level 35 MMOL/L (21-32) Anion Gap -1 mmol/L (5-15) Blood Urea Nitrogen 53 mg/dL (7-18) Creatinine 3.2 MG/DL (0.55-1.30) Estimat Glomerular Filtration Rate 24.7 mL/min (>60) Glucose Level 112 MG/DL (74-106) Uric Acid 3.1 MG/DL (2.6-7.2) Calcium Level 8.5 MG/DL (8.5-10.1) Phosphorus Level 3.0 MG/DL (2.5-4.9) Magnesium Level 2.6 MG/DL (1.8-2.4) Total Bilirubin 0.3 MG/DL (0.2-1.0) Aspartate Amino Transf (AST/SGOT) 213 U/L (15-37) Alanine Aminotransferase (ALT/SGPT) 273 U/L (12-78) Alkaline Phosphatase 523 U/L (46-116) C-Reactive Protein, Quantitative 10.3 mg/dL (0.00-0.90) Total Protein 6.6 G/DL (6.4-8.2) Albumin 1.5 G/DL (3.4-5.0) Globulin 5.1 g/dL Albumin/Globulin Ratio 0.3 (1.0-2.7) Thyroid Stimulating Hormone (TSH) 14.453 uiU/mL (0.358-3.740) Free Thyroxine 0.86 NG/DL (0.76-1.46) Test 07/01/20 07:55 07/01/20 12:15 07/01/20 17:41 07/01/20 18:00 HIV (1&2) Antibody Rapid Negative (NEGATIVE) POC Whole Blood Glucose 113 MG/DL (74-106) 133 MG/DL (74-106) Random Vancomycin Level 25.7 ug/mL Test 07/01/20 23:46 07/02/20 03:35 07/02/20 05:22 07/02/20 12:24 POC Whole Blood Glucose 122 MG/DL (74-106) 106 MG/DL (74-106) 99 MG/DL (74-106) White Blood Count 14.0 K/UL (4.8-10.8) Red Blood Count 2.74 M/UL (4.70-6.10) Hemoglobin 8.3 G/DL (14.2-18.0) Hematocrit 26.1 % (42.0-52.0) Mean Corpuscular Volume 95 FL (80-99) Mean Corpuscular Hemoglobin 30.3 PG (27.0-31.0) Mean Corpuscular Hemoglobin Concent 31.8 G/DL (32.0-36.0) Red Cell Distribution Width 15.4 % (11.6-14.8) Platelet Count 78 K/UL (150-450) Mean Platelet Volume 11.4 FL (6.5-10.1) Neutrophils (%) (Auto) % (45.0-75.0) Lymphocytes (%) (Auto) % (20.0-45.0) Monocytes (%) (Auto) % (1.0-10.0) Eosinophils (%) (Auto) % (0.0-3.0) Basophils (%) (Auto) % (0.0-2.0) Differential Total Cells Counted 100 Neutrophils % (Manual) 74 % (45-75) Lymphocytes % (Manual) 14 % (20-45) Monocytes % (Manual) 5 % (1-10) Eosinophils % (Manual) 7 % (0-3) Basophils % (Manual) 0 % (0-2) Band Neutrophils 0 % (0-8) Platelet Estimate Decreased Platelet Morphology Giant Platelets Occasional Hypochromasia 1+ Anisocytosis 1+ Sodium Level 133 MMOL/L (136-145) Potassium Level 4.8 MMOL/L (3.5-5.1) Chloride Level 99 MMOL/L (98-107) Carbon Dioxide Level 33 MMOL/L (21-32) Anion Gap 1 mmol/L (5-15) Blood Urea Nitrogen 67 mg/dL (7-18) Creatinine 3.9 MG/DL (0.55-1.30) Estimat Glomerular Filtration Rate 19.8 mL/min (>60) Glucose Level 119 MG/DL (74-106) Calcium Level 8.0 MG/DL (8.5-10.1) Phosphorus Level 3.9 MG/DL (2.5-4.9) Magnesium Level 2.6 MG/DL (1.8-2.4) Total Bilirubin 0.3 MG/DL (0.2-1.0) Aspartate Amino Transf (AST/SGOT) 205 U/L (15-37) Alanine Aminotransferase (ALT/SGPT) 214 U/L (12-78) Alkaline Phosphatase 510 U/L (46-116) C-Reactive Protein, Quantitative 11.1 mg/dL (0.00-0.90) Pro-B-Type Natriuretic Peptide > 62606 pg/mL (0-125) Total Protein 6.9 G/DL (6.4-8.2) Albumin 1.5 G/DL (3.4-5.0) Globulin 5.4 g/dL Albumin/Globulin Ratio 0.3 (1.0-2.7) Test 07/02/20 16:53 07/03/20 03:35 07/03/20 04:54 POC Whole Blood Glucose 94 MG/DL (74-106) 121 MG/DL (74-106) White Blood Count 14.0 K/UL (4.8-10.8) Red Blood Count 2.66 M/UL (4.70-6.10) Hemoglobin 8.0 G/DL (14.2-18.0) Hematocrit 25.3 % (42.0-52.0) Mean Corpuscular Volume 95 FL (80-99) Mean Corpuscular Hemoglobin 30.0 PG (27.0-31.0) Mean Corpuscular Hemoglobin Concent 31.5 G/DL (32.0-36.0) Red Cell Distribution Width 15.3 % (11.6-14.8) Platelet Count 70 K/UL (150-450) Mean Platelet Volume 11.0 FL (6.5-10.1) Neutrophils (%) (Auto) % (45.0-75.0) Lymphocytes (%) (Auto) % (20.0-45.0) Monocytes (%) (Auto) % (1.0-10.0) Eosinophils (%) (Auto) % (0.0-3.0) Basophils (%) (Auto) % (0.0-2.0) Sodium Level 133 MMOL/L (136-145) Potassium Level 5.1 MMOL/L (3.5-5.1) Chloride Level 99 MMOL/L (98-107) Carbon Dioxide Level 33 MMOL/L (21-32) Blood Urea Nitrogen 78 mg/dL (7-18) Creatinine 4.6 MG/DL (0.55-1.30) Estimat Glomerular Filtration Rate 16.2 mL/min (>60) Glucose Level 113 MG/DL (74-106) Calcium Level 8.1 MG/DL (8.5-10.1) Phosphorus Level 4.2 MG/DL (2.5-4.9) Magnesium Level 2.8 MG/DL (1.8-2.4) Total Bilirubin 0.4 MG/DL (0.2-1.0) Aspartate Amino Transf (AST/SGOT) 142 U/L (15-37) Alanine Aminotransferase (ALT/SGPT) 168 U/L (12-78) Alkaline Phosphatase 494 U/L (46-116) C-Reactive Protein, Quantitative 12.0 mg/dL (0.00-0.90) Total Protein 6.8 G/DL (6.4-8.2) Albumin 1.5 G/DL (3.4-5.0) Globulin 5.3 g/dL Albumin/Globulin Ratio 0.3 (1.0-2.7) Height (Feet): 5 Height (Inches): 8.00 Weight (Pounds): 143 Objective PHYSICAL EXAMINATION: VITAL SIGNS: reviewed HEAD AND NECK: Show status post tracheostomy. vent+ LUNGS: Coarse rhonchi and basilar rales. CARDIOVASCULAR: Shows irregular S1 and S2 with no gallop. ABDOMEN: Soft. Status post G-tube. EXTREMITIES: No pitting edema.++Left yasmina Jose Tan MD Jul 03, 2020 07:09
--- NOTE | 2020-07-03 07:26 | NUR ---
NURSE NOTES: Received report from MAX Comer. Patient in bed resting, no active s/s cardiac, respiratory distress noticed at this time. Patient open eyes spontaneously, non verbal, follow simple command. Patient trach to vent Shiley 8 AC 16 TV 500 Fio2 50%, PEEP 5. Patient on GT feeding Vital AF @ 50ml/h, asymptomatic, patent, intact. Rectal tube draining well to gravity, Sparrow Catheter draining well to gravity. Endorsed need of sputum collection, Bed in lowest position, side rails upx3, call light within reach, bed alarm on, Will continue to monitor. Addendum: 07/03/20 at 0730 by MO ECKERT RN Patient on bilateral soft wrist restraints, cap refill <3 sec, able to move, scant amount of bleeding noted on hemodialysis site, will follow up with .
[2020-07-03 08:00] VITALS: BP 133/75
[2020-07-03] MEDS: Ascorbic Acid 500mg tab GT SCH (08:18)
--- NOTE | 2020-07-03 08:25 | Pulmonology Progress Note ---
Subjective ROS Limited/Unobtainable: Yes Interval Events: FiO2 now 40%; Remains on vent. Constitutional: Denies: fever HEENT: Repors: no symptoms Respiratory: Reports: no symptoms Cardiovascular: Reports: no symptoms Gastrointestinal/Abdominal: Reports: diarrhea Genitourinary: Reports: no symptoms Psychiatric: Reports: other - on restraint Allergies: Coded Allergies: No Known Allergies (Unverified , 06/13/20) Objective Last 24 Hour Vital Signs Date Time Temp Pulse Resp B/P (MAP) Pulse Ox O2 Delivery O2 Flow Rate FiO2 07/03/20 08:00 96.3 69 20 133/75 (94) 96 07/03/20 07:14 71 20 40 07/03/20 04:00 69 07/03/20 04:00 Mechanical Ventilator 07/03/20 04:00 50 07/03/20 04:00 97.1 71 18 119/79 (92) 97 07/03/20 02:51 69 18 50 07/03/20 00:00 97.7 71 19 112/59 (76) 98 07/03/20 00:00 Mechanical Ventilator 07/03/20 00:00 75 07/02/20 22:32 74 18 50 07/02/20 20:00 50 07/02/20 20:00 Mechanical Ventilator 07/02/20 20:00 97.7 73 20 122/67 (85) 98 07/02/20 20:00 73 07/02/20 18:38 73 20 50 07/02/20 16:00 73 07/02/20 16:00 50 07/02/20 16:00 96.0 70 24 117/80 (92) 100 07/02/20 16:00 Mechanical Ventilator 07/02/20 15:15 82 16 50 07/02/20 12:00 Mechanical Ventilator 07/02/20 12:00 50 07/02/20 12:00 97.3 74 21 126/68 (87) 98 07/02/20 12:00 73 07/02/20 11:10 74 19 50 Intake and Output 07/02/20 07/03/20 19:00 07:00 Intake Total 690 ml 600 ml Output Total 500 ml 700 ml Balance 190 ml -100 ml Free Water 90 ml 50 ml Tube Feeding 600 ml 500 ml Blood Product 50 ml Output Urine Total 400 ml 300 ml Stool Total 100 ml 400 ml General Appearance: no acute distress HEENT: status post trach Respiratory: chest wall non-tender, lungs clear Cardiovascular: normal peripheral pulses, normal rate Abdomen: normal bowel sounds Extremities: no cyanosis Laboratory Tests 07/02/20 12:24: POC Whole Blood Glucose 99 07/02/20 16:53: POC Whole Blood Glucose 94 07/03/20 03:35: White Blood Count 14.0H, Red Blood Count 2.66L, Hemoglobin 8.0L, Hematocrit 25.3L, Mean Corpuscular Volume 95, Mean Corpuscular Hemoglobin 30.0, Mean Corpuscular Hemoglobin Concent 31.5L, Red Cell Distribution Width 15.3H, Platelet Count 70L, Mean Platelet Volume 11.0H, Neutrophils (%) (Auto) , Lymphocytes (%) (Auto) , Monocytes (%) (Auto) , Eosinophils (%) (Auto) , Basophils (%) (Auto) , Sodium Level 133L, Potassium Level 5.1, Chloride Level 99, Carbon Dioxide Level 33H, Blood Urea Nitrogen 78H, Creatinine 4.6H, Estimat Glomerular Filtration Rate 16.2, Glucose Level 113H, Calcium Level 8.1L, Phosphorus Level 4.2, Magnesium Level 2.8H, Total Bilirubin 0.4, Aspartate Amino Transf (AST/SGOT) 142H, Alanine Aminotransferase (ALT/SGPT) 168H, Alkaline Phosphatase 494H, C-Reactive Protein, Quantitative 12.0H, Total Protein 6.8, Albumin 1.5L, Globulin 5.3, Albumin/Globulin Ratio 0.3L 07/03/20 04:54: POC Whole Blood Glucose 121H Current Medications Medications (Trade) Dose Ordered Sig/Maryjane Route PRN Reason Start Time Stop Time Status Last Admin Dose Admin Acetaminophen (Tylenol) 650 mg Q4H PRN GT Mild Pain (Pain Scale 1-3) 06/18/20 23:00 07/18/20 22:59 Acetaminophen (Tylenol) 650 mg Q4HR PRN GT FEVER 06/14/20 09:45 07/14/20 09:44 06/19/20 20:45 Aluminum Hydroxide (Amphojel) 1,920 mg Q6H GT 06/17/20 10:00 07/17/20 09:59 07/03/20 03:18 Ascorbic Acid (Vitamin C) 500 mg DAILY GT 07/01/20 09:00 07/31/20 08:59 07/03/20 08:18 Chlorhexidine Gluconate (Inés-Hex 2%) 1 applic DAILY@2000 TOPIC 06/21/20 20:00 09/19/20 19:59 07/02/20 20:11 Dextrose (Dextrose 50%) 25 ml Q30M PRN IV Hypoglycemia 06/28/20 18:30 09/26/20 18:29 Dextrose (Dextrose 50%) 50 ml Q30M PRN IV Hypoglycemia 06/28/20 18:30 09/26/20 18:29 Epoetin Bonilla (Epoetin Bonilla(ESRD on dialysis)) 10,000 unit TUE-TUE-TUE SUBQ 07/02/20 21:00 09/16/20 20:59 07/02/20 20:37 Haloperidol Lactate (Haldol) 5 mg Q6H PRN IM Agitation 06/21/20 23:15 08/05/20 23:14 06/25/20 18:17 Insulin Aspart (NovoLOG) EVERY 6 HOURS SUBQ 06/29/20 00:00 09/27/20 00:00 06/29/20 18:13 Lansoprazole (Prevacid) 30 mg Q12HR GT 06/30/20 21:00 07/30/20 20:59 07/03/20 08:17 Levothyroxine Sodium (Synthroid) 88 mcg DAILY@0630 GT 07/03/20 06:30 08/02/20 06:29 07/03/20 05:39 [facility] 1 ea DAILY PRN MISC Per rx protocol 06/27/20 11:30 07/18/20 23:59 Assessment/Plan Problems: (1) Acute respiratory failure Assessment/Plan IMPRESSION: 1. Chronic respiratory failure. 2. Hypoxemia. 3. Respiratory acidosis. 4. Anemia. 5. Leukocytosis. 6. DVT 7. S/p code blue 06/19/20 DISCUSSION: The patient's x-ray is markedly abnormal with bilateral infiltrates. I suspect he has pulmonary fibrosis. Latest CXR is unchanged to slightly improved COVID 19 pcr and antigen both negative No anticoagulation for DVT due to anemia S/p IVC filter placement Continue assist-control mechanical ventilation; currently FiO2 40%; SaO2 100%, broad-spectrum antibiotics. Transfusion as needed. Will decrease PEEP to 5; S/p HD WIll decrease FiO2 as tolerated S/p permacath I will follow carefully. Hugo Carl Omar Syed MD Jul 03, 2020 08:25
--- NOTE | 2020-07-03 10:18 | NUR ---
NURSE NOTES: Dr. aMres at the bedside, made aware of scant amount of bleeding from hemodialysis site, per MD change dressing, no new order received at this time. Will continue to monitor.
--- NOTE | 2020-07-03 10:19 | NUR ---
NURSE NOTES: Dr. Honeycutt at the bedside made aware of lab Na, K, Mg. Per MD will order HD tomorrow. No new order received at this time, Will continue to monitor.
--- NOTE | 2020-07-03 10:34 | Surgery Progress Note ---
Surgery Progress Note Subjective Additional Comments bleeding around right chest wall cath site. not active dressings change no n/v wbc 14k h/h stable Objective Last 24 Hour Vital Signs Date Time Temp Pulse Resp B/P (MAP) Pulse Ox O2 Delivery O2 Flow Rate FiO2 07/03/20 08:00 71 07/03/20 08:00 96.3 69 20 133/75 (94) 96 07/03/20 08:00 Mechanical Ventilator 07/03/20 08:00 40 07/03/20 07:14 71 20 40 07/03/20 04:00 69 07/03/20 04:00 Mechanical Ventilator 07/03/20 04:00 50 07/03/20 04:00 97.1 71 18 119/79 (92) 97 07/03/20 02:51 69 18 50 07/03/20 00:00 97.7 71 19 112/59 (76) 98 07/03/20 00:00 Mechanical Ventilator 07/03/20 00:00 75 07/02/20 22:32 74 18 50 07/02/20 20:00 50 07/02/20 20:00 Mechanical Ventilator 07/02/20 20:00 97.7 73 20 122/67 (85) 98 07/02/20 20:00 73 07/02/20 18:38 73 20 50 07/02/20 16:00 73 07/02/20 16:00 50 07/02/20 16:00 96.0 70 24 117/80 (92) 100 07/02/20 16:00 Mechanical Ventilator 07/02/20 15:15 82 16 50 07/02/20 12:00 Mechanical Ventilator 07/02/20 12:00 50 07/02/20 12:00 97.3 74 21 126/68 (87) 98 07/02/20 12:00 73 07/02/20 11:10 74 19 50 I&O Intake and Output 07/02/20 07/03/20 19:00 07:00 Intake Total 690 ml 600 ml Output Total 500 ml 700 ml Balance 190 ml -100 ml Free Water 90 ml 50 ml Tube Feeding 600 ml 500 ml Blood Product 50 ml Output Urine Total 400 ml 300 ml Stool Total 100 ml 400 ml Dressing: saturated Cardiovascular: RSR Respiratory: decreased breath sounds Abdomen: soft, non-tender, present bowel sounds, non-distended Extremities: no edema, no tenderness, no cyanosis Laboratory Tests Test 07/02/20 12:24 07/02/20 16:53 07/03/20 03:35 07/03/20 04:54 POC Whole Blood Glucose 99 MG/DL (74-106) 94 MG/DL (74-106) 121 MG/DL (74-106) H White Blood Count 14.0 K/UL (4.8-10.8) H Red Blood Count 2.66 M/UL (4.70-6.10) L Hemoglobin 8.0 G/DL (14.2-18.0) L Hematocrit 25.3 % (42.0-52.0) L Mean Corpuscular Volume 95 FL (80-99) Mean Corpuscular Hemoglobin 30.0 PG (27.0-31.0) Mean Corpuscular Hemoglobin Concent 31.5 G/DL (32.0-36.0) L Red Cell Distribution Width 15.3 % (11.6-14.8) H Platelet Count 70 K/UL (150-450) L Mean Platelet Volume 11.0 FL (6.5-10.1) H Neutrophils (%) (Auto) % (45.0-75.0) Lymphocytes (%) (Auto) % (20.0-45.0) Monocytes (%) (Auto) % (1.0-10.0) Eosinophils (%) (Auto) % (0.0-3.0) Basophils (%) (Auto) % (0.0-2.0) Sodium Level 133 MMOL/L (136-145) L Potassium Level 5.1 MMOL/L (3.5-5.1) Chloride Level 99 MMOL/L (98-107) Carbon Dioxide Level 33 MMOL/L (21-32) H Blood Urea Nitrogen 78 mg/dL (7-18) H Creatinine 4.6 MG/DL (0.55-1.30) H Estimat Glomerular Filtration Rate 16.2 mL/min (>60) Glucose Level 113 MG/DL (74-106) H Calcium Level 8.1 MG/DL (8.5-10.1) L Phosphorus Level 4.2 MG/DL (2.5-4.9) Magnesium Level 2.8 MG/DL (1.8-2.4) H Total Bilirubin 0.4 MG/DL (0.2-1.0) Aspartate Amino Transf (AST/SGOT) 142 U/L (15-37) H Alanine Aminotransferase (ALT/SGPT) 168 U/L (12-78) H Alkaline Phosphatase 494 U/L (46-116) H C-Reactive Protein, Quantitative 12.0 mg/dL (0.00-0.90) H Total Protein 6.8 G/DL (6.4-8.2) Albumin 1.5 G/DL (3.4-5.0) L Globulin 5.3 g/dL Albumin/Globulin Ratio 0.3 (1.0-2.7) L Plan Problems: (1) Leukocytosis Assessment & Plan: 54-year-old male multiple comorbidities admitted for abnorm al chest x-ray potentially pneumonia leukocytosis abnormal labs. Patient identified to have a prior left BKA surgical sutures still in place as well as a surgical sacral wound with sutures in place. Considerations of dehiscence being identified and potential etiology of infection. After evaluation unlikely source of infection though the sacral wound was looked to be dehiscing at the inferior aspect. No acute surgical mention at this time We will discussed care plan with PCP Recommend follow-up with initial surgeon considerations of removal of surgical sutures Care plan initiated worsening lft's US ordered ? shayla monitor for bleeding from right chest wall cath change dressings Extensive airspace consolidations at the lung bases consistent with severe multifocal infiltrate. Associated, large bilateral pleural effusions. Evaluation of the abdominal viscera is markedly suboptimal due to poor CT technique and lack of intravenous contrast. No definite hepatic lesion. No definite cholelithiasis. Mild colon wall thickening. The spleen, pancreas, and adrenal glands are not visualized well enough reliable assessment. No definite hydronephrosis. The kidneys are hyperdense, correlate for medical renal disease. No nephrolithiasis. Sparrow catheter within a decompressed urinary bladder. Moderate diverticulosis, without acute diverticulitis. No small bowel obstruction. PEG tube presumably within the stomach. Atherosclerotic calcifications of the aorta. Low-attenuation of the intravascular blood pool, correlate for anemia. IVC filter, incidentally noted. Air within the subcutaneous fat overlying the sacrum with skin thickening, correlate with physical exam for sacral decubitus ulcer. Degenerative changes of the spine. Bilateral pars defects at L5 without anterolisthesis of L5 on S1. IMPRESSION: Extensive airspace consolidations at the lung bases consistent with severe multifocal infiltrate. Associated, large bilateral pleural effusions. Evaluation of the abdominal viscera is markedly suboptimal due to poor CT technique and lack of intravenous contrast. Moderate diverticulosis, without acute diverticulitis. No small bowel obstruction. PEG tube presumably within the stomach. Note, if there is suspicion for colitis consider repeat scan with improved CT technique/intravenous contrast. Mild gallbladder wall thickening without definite evidence of cholelithiasis. Air within the subcutaneous fat overlying the sacrum with skin thickening, correlate with physical exam for sacral decubitus ulcer. Bilateral pars defects at L5. The kidneys are hyperdense, correlate for medical renal disease.. There is prompt uptake within the liver with washout of radiotracer from the liver on subsequent imaging. There is excretion into the biliary ducts. Gallbladder activity is present in a timely fashion indicating patency of the cystic duct. Very scant bowel activity is demonstrated concerning for common bile duct obstruction or sphincter dysfunction. IMPRESSION: No evidence to suggest cholecystitis. Gallbladder activity is present in a timely fashion indicating patency of the cystic duct. Very little radiotracer noted in the small bowel. Correlate with LFTs as a degree of common bile duct obstruction or sphincter dysfunction not excluded. Consider further evaluation with MRCP. (2) Surgical wound dehiscence Assessment & Plan: Patient identified to have a left BKA surgical sutures in place flap looks like it is taken well no signs of infection at this time no signs of seroma hematoma or drainage. Unknown exact length or duration of potential prior left BKA and until then recommend leaving sutures in place as it may be too early though it does look well-healed. If able to obtain prior re cords we will be happy to remove sutures otherwise will need follow-up with primary surgeon furthermore patient identified to have a surgical wound in the sacral area seems he probably potentially had a stage IV sacral decubitus ulcer that had debridement and primary closure. Fortunately. Sutures are still in place and it looks like the inferior aspect may be slowly dehiscing. There is no significant drainage no foul odor no signs of active infection unknown if bone was palpable prior. Can consider removing surgical sutures but again would recommend obtaining prior records of possible prior to doing so. Also recommend following up with primary surgeon as this may need ongoing continued care. Will follow with recommendations and as information is available. Continue current care plan. Wash wounds daily with normal saline. Apply skin protectant Optifoam dressing. Turn every 2 hours. Offload pressure with pillows and air mattress. Nutritional optimization. Worsening leukocytosis. Patient continues to have dehiscence of the prior primarily closed sacral decubitus ulcer. The sutures are was nearly torn out and the wound is opening and saturating with stool with bowel movements now has rectal tube. Unfortunately I see significant concern given dehiscence and therefore sutures were cut at the bedside and wound immediately opened under some tension. Underlying Vicryl sutures identified. There is some backbleeding some granulation tissue but definitely no take or closure of the stage IV sacral decubitus ulcer that was identified. Nonexcisional debridement done with gauze and jorge layer of slough and biofilm was removed wound was cleaned packing dressings applied. No abscess no purulent drainage unlikely etiology of infection. (3) History of left below knee amputation (4) Malnutrition Assessment & Plan: DAILY ESTIMATED NEEDS: Needs based on Wound, critical care, underweight/ 55.5kg 25-33 (25-35 w/ HD) kcals/kg 8722-9650 (8787-5693) total kcals 1.25-2 g protein/kg 69-111 g total protein 25-30 mL/kg 8323-7963 total fluid mLs NUTRITION DIAGNOSIS: * Swallowing difficulty R/T respiratory status as evidenced by pt is trach/vent dep, PEG dep. CURRENT TF: Nepro @ 40ml/hr x24 hrs ENTERAL NUTRITION RECOMMENDATIONS: Nepro @ 40ml/hr x 24 hrs to provide 960ml, 1728kcal, 78g prot, 698ml free water * Maintain current TF * HOB over 30 degrees/ water flush per MD ADDITIONAL RECOMMENDATIONS: * Per SNF: HT=69" UQ=925gap -> rec daily calibrated bedscale wt * Monitor lytes: elev K-> now wnl, phos now low * Wound healing: RANDY BID + Nephrovite 1 tab qdaily * Monitor for bm, last bm 06/19, now 06/24 * W/ HD rec to add Prosource 1 pack qdaily for added 11g pro/day. (5) Anemia (6) KERRI (acute kidney injury) (7) Acute respiratory failure (8) Hyperkalemia (9) Anemia (10) Abnormal laboratory test result (11) Chronic respiratory failure (12) Hyperglycemia (13) Hypothyroidism Azar Mares Jul 03, 2020 10:34
--- NOTE | 2020-07-03 10:46 | Cardiac Electrophysiology PN ---
Assessment/Plan Assessment/Plan 1. Vent-dependent respirator failure. S/P tracheostomy. On 50% Fio2 Chest x-ray extensive bilateral pneumonia or ARDS. Off isolation EF 50%. Ruled out for [place]. BNP 01577. On iv Abx 2. Sinus Tachycardia, likely due to respiratory failure and sepsis 3. Right femoral vein DVT. S/P IVC filter 06/18 4. Dysphagia, status post PEG placement. 5. Renal failure. S/P Right IJ Iron and on HD by Dr. Honeycutt. Next HD tomorrow 6. Severe anemia, S/P multiple PRBCs for hematuria 7. High LFTs, s/p CT abdomen and pelvis and HIDA FU Dr Stringre 8. Transient bradycardia, resolved DW RN and Dr Honeycutt Subjective Subjective On the Vent off isolation. On 40% Fio2 and PEEP 5. S/P IVC filter S/P Right IJ Iron and first HD 06/21/20 Had [employer] as HR dropped to 30 at 4 am 06/25/20 Got PRBC 06/27 and 06/28 as Hb dropped to 5.6 likley due to hematuria Opens eyes in restraints in NAD Hb down to 6.6 and got 2 units of PRBC Right IJ small oozing Objective Last 24 Hour Vital Signs Date Time Temp Pulse Resp B/P (MAP) Pulse Ox O2 Delivery O2 Flow Rate FiO2 07/03/20 08:00 71 07/03/20 08:00 96.3 69 20 133/75 (94) 96 07/03/20 08:00 Mechanical Ventilator 07/03/20 08:00 40 07/03/20 07:14 71 20 40 07/03/20 04:00 69 07/03/20 04:00 Mechanical Ventilator 07/03/20 04:00 50 07/03/20 04:00 97.1 71 18 119/79 (92) 97 07/03/20 02:51 69 18 50 07/03/20 00:00 97.7 71 19 112/59 (76) 98 07/03/20 00:00 Mechanical Ventilator 07/03/20 00:00 75 07/02/20 22:32 74 18 50 07/02/20 20:00 50 07/02/20 20:00 Mechanical Ventilator 07/02/20 20:00 97.7 73 20 122/67 (85) 98 07/02/20 20:00 73 07/02/20 18:38 73 20 50 07/02/20 16:00 73 07/02/20 16:00 50 07/02/20 16:00 96.0 70 24 117/80 (92) 100 07/02/20 16:00 Mechanical Ventilator 07/02/20 15:15 82 16 50 07/02/20 12:00 Mechanical Ventilator 07/02/20 12:00 50 07/02/20 12:00 97.3 74 21 126/68 (87) 98 07/02/20 12:00 73 07/02/20 11:10 74 19 50 Intake and Output 07/02/20 07/03/20 19:00 07:00 Intake Total 690 ml 600 ml Output Total 500 ml 700 ml Balance 190 ml -100 ml Free Water 90 ml 50 ml Tube Feeding 600 ml 500 ml Blood Product 50 ml Output Urine Total 400 ml 300 ml Stool Total 100 ml 400 ml Laboratory Tests Test 07/02/20 12:24 07/02/20 16:53 07/03/20 03:35 07/03/20 04:54 POC Whole Blood Glucose 99 MG/DL (74-106) 94 MG/DL (74-106) 121 MG/DL (74-106) H White Blood Count 14.0 K/UL (4.8-10.8) H Red Blood Count 2.66 M/UL (4.70-6.10) L Hemoglobin 8.0 G/DL (14.2-18.0) L Hematocrit 25.3 % (42.0-52.0) L Mean Corpuscular Volume 95 FL (80-99) Mean Corpuscular Hemoglobin 30.0 PG (27.0-31.0) Mean Corpuscular Hemoglobin Concent 31.5 G/DL (32.0-36.0) L Red Cell Distribution Width 15.3 % (11.6-14.8) H Platelet Count 70 K/UL (150-450) L Mean Platelet Volume 11.0 FL (6.5-10.1) H Neutrophils (%) (Auto) % (45.0-75.0) Lymphocytes (%) (Auto) % (20.0-45.0) Monocytes (%) (Auto) % (1.0-10.0) Eosinophils (%) (Auto) % (0.0-3.0) Basophils (%) (Auto) % (0.0-2.0) Sodium Level 133 MMOL/L (136-145) L Potassium Level 5.1 MMOL/L (3.5-5.1) Chloride Level 99 MMOL/L (98-107) Carbon Dioxide Level 33 MMOL/L (21-32) H Blood Urea Nitrogen 78 mg/dL (7-18) H Creatinine 4.6 MG/DL (0.55-1.30) H Estimat Glomerular Filtration Rate 16.2 mL/min (>60) Glucose Level 113 MG/DL (74-106) H Calcium Level 8.1 MG/DL (8.5-10.1) L Phosphorus Level 4.2 MG/DL (2.5-4.9) Magnesium Level 2.8 MG/DL (1.8-2.4) H Total Bilirubin 0.4 MG/DL (0.2-1.0) Aspartate Amino Transf (AST/SGOT) 142 U/L (15-37) H Alanine Aminotransferase (ALT/SGPT) 168 U/L (12-78) H Alkaline Phosphatase 494 U/L (46-116) H C-Reactive Protein, Quantitative 12.0 mg/dL (0.00-0.90) H Total Protein 6.8 G/DL (6.4-8.2) Albumin 1.5 G/DL (3.4-5.0) L Globulin 5.3 g/dL Albumin/Globulin Ratio 0.3 (1.0-2.7) L Objective HEAD AND NECK: Status post tracheostomy. Right IJ Iron in place LUNGS: Coarse rhonchi and basilar rales. CARDIOVASCULAR: Irregular S1 and S2 with no gallop. ABDOMEN: Soft. Status post G-tube. EXTREMITIES: No pitting edema. Lance Mcguire MD Jul 03, 2020 10:46
--- NOTE | 2020-07-03 11:45 | Nephrology Progress Note ---
Assessment/Plan Problem List: (1) KERRI (acute kidney injury) (2) Acute respiratory failure (3) Chronic respiratory failure (4) Anemia (5) Hyperkalemia Assessment Acute on chronic renal failure Anemia Respiratory failure acute on chronic Respiratory acidosis and hypoxia Hyperkalemia Plan July 03: Lab reviewed. Will defer dialysis for July 04. Some blood oozing from the catheter site. General surgery to be informed. Electrolytes stable. Continue as is. July 02: Labs reviewed. Due for dialysis tomorrow. Hemoglobin higher. Stable electrolytes. Continue per consultants. July 01: Labs reviewed. Dialyzed yesterday. Patient has a permacath. Continue per consultants. Worsening anemia noted, deferred to net developer contract. June 30: Labs reviewed. Due for dialysis today. Patient appears to be needing hemodialysis for sometimes incoming future. Will arrange for placement of a tunneled catheter. Continue per consultants. Anemia management per net developer contract. June 29: Labs reviewed. Hemoglobin is higher. Next hemodialysis tomorrow June 30. Continue per consultants. June 28: Labs reviewed. Last dialyzed June 26. Hemoglobin remains low. Defer transfusion and work-up to net developer contract. Continue to follow-up renal parameters. June 27: Labs reviewed. Dialyzed yesterday. Hemoglobin low. Due for transfusion. Continue to monitor renal parameters and hemoglobin and hematocrit. June 26: Labs reviewed. Due for dialysis today. Continue per consultants. Continue to monitor liver enzymes. June 25: Labs reviewed. Will dialyze tomorrow. Continue per consultants. Check liver function enzymes. June 24: Dialyzed yesterday. Labs reviewed. Medication list reviewed. Liver enzymes remains elevated. Continue to monitor electrolytes renal parameters and LFTs. Hemodialysis in a.m. if needed. June 23: Patient will be dialyzed today again. Labs reviewed. Serum creatinine higher. Elevated liver enzymes persist. Patient full code. Continue per consultants. June 22: Patient dialyzed yesterday. Labs reviewed. Liver function tests and enzymes are elevated. Continue to monitor renal parameters and LFTs. Continue per consultants. Patient full code. June 21: Patient due for dialysis today. Labs and medication list reviewed. Discussed with RN. Continue to monitor renal parameters. June 20: Patient had an episode of bradycardia last night. Serum creatinine rising. Patient continues to have respiratory acidosis. Discussed with MAX Bond. Will order non tunneled dialysis catheter placement for initiation of dialysis treatment due to acute renal failure. Patient remains full code. I favor comfort care if bioethics consultation is sought and physicians on the team agreeable. June 19: No CHEM panel today. Low hemoglobin as of yesterday's lab results. Anemia management per Dr. Cueva. Continue to monitor renal parameters. June 18: Labs are reviewed. Hemoglobin lower. Creatinine higher. ABG not done yet. Patient full code. Continue per consultants. June 17: Labs reviewed. Hemoglobin low. Creatinine up to 3. Phosphorus levels elevated. Will start Amphojel via GT tube as a phosphorus binder. Monitor renal parameters. Check ABG. Continue per consultants. June 16: Labs reviewed. Serum creatinine mariana to 2.6. Abnormal electrolytes now normalized. Continue to monitor renal parameters and avoid nephrotoxic's. Continue to adjust pulmonary status as possible. June 15: ABG pH of 7.1. 2D echo suggestive of ejection fraction of 50%. Labs reviewed. Serum creatinine mariana. Will hold IV Lasix. Will give Kayexalate for high potassium and 1 amp of sodium bicarb. Albumin IV bolus given. Continue per consultants. Continue to monitor renal parameters. Kidney ultrasound ordered. June 14: As follow Pulmonary evaluation Sparrow catheter Hold IV fluid IV fluid, until 2D echo results available Kayexalate for high potassium IV Protonix 2D echocardiogram Anemia work-up More labs ordered Subjective ROS Limited/Unobtainable: Yes Objective Objective Last 24 Hour Vital Signs Date Time Temp Pulse Resp B/P (MAP) Pulse Ox O2 Delivery O2 Flow Rate FiO2 07/03/20 08:00 71 07/03/20 08:00 96.3 69 20 133/75 (94) 96 07/03/20 08:00 Mechanical Ventilator 07/03/20 08:00 40 07/03/20 07:14 71 20 40 07/03/20 04:00 69 07/03/20 04:00 Mechanical Ventilator 07/03/20 04:00 50 07/03/20 04:00 97.1 71 18 119/79 (92) 97 07/03/20 02:51 69 18 50 07/03/20 00:00 97.7 71 19 112/59 (76) 98 07/03/20 00:00 Mechanical Ventilator 07/03/20 00:00 75 07/02/20 22:32 74 18 50 07/02/20 20:00 50 07/02/20 20:00 Mechanical Ventilator 07/02/20 20:00 97.7 73 20 122/67 (85) 98 07/02/20 20:00 73 07/02/20 18:38 73 20 50 07/02/20 16:00 73 07/02/20 16:00 50 07/02/20 16:00 96.0 70 24 117/80 (92) 100 07/02/20 16:00 Mechanical Ventilator 07/02/20 15:15 82 16 50 07/02/20 12:00 Mechanical Ventilator 07/02/20 12:00 50 07/02/20 12:00 97.3 74 21 126/68 (87) 98 07/02/20 12:00 73 Intake and Output 07/02/20 07/03/20 19:00 07:00 Intake Total 690 ml 600 ml Output Total 500 ml 700 ml Balance 190 ml -100 ml Free Water 90 ml 50 ml Tube Feeding 600 ml 500 ml Blood Product 50 ml Output Urine Total 400 ml 300 ml Stool Total 100 ml 400 ml Current Medications Medications (Trade) Dose Ordered Sig/Maryjane Route PRN Reason Start Time Stop Time Status Last Admin Dose Admin Acetaminophen (Tylenol) 650 mg Q4H PRN GT Mild Pain (Pain Scale 1-3) 06/18/20 23:00 07/18/20 22:59 Acetaminophen (Tylenol) 650 mg Q4HR PRN GT FEVER 06/14/20 09:45 07/14/20 09:44 06/19/20 20:45 Aluminum Hydroxide (Amphojel) 1,920 mg Q6H GT 06/17/20 10:00 07/17/20 09:59 07/03/20 10:50 Ascorbic Acid (Vitamin C) 500 mg DAILY GT 07/01/20 09:00 07/31/20 08:59 07/03/20 08:18 Chlorhexidine Gluconate (Inés-Hex 2%) 1 applic DAILY@1999 TOPIC 06/21/20 20:00 09/19/20 19:59 07/02/20 20:11 Dextrose (Dextrose 50%) 25 ml Q30M PRN IV Hypoglycemia 06/28/20 18:30 09/26/20 18:29 Dextrose (Dextrose 50%) 50 ml Q30M PRN IV Hypoglycemia 06/28/20 18:30 09/26/20 18:29 Epoetin Bonilla (Epoetin Bonilla(ESRD on dialysis)) 10,000 unit TUE-TUE-TUE SUBQ 07/02/20 21:00 09/16/20 20:59 07/02/20 20:37 Haloperidol Lactate (Haldol) 5 mg Q6H PRN IM Agitation 06/21/20 23:15 08/05/20 23:14 06/25/20 18:17 Insulin Aspart (NovoLOG) EVERY 6 HOURS SUBQ 06/29/20 00:00 09/27/20 00:00 06/29/20 18:13 Lansoprazole (Prevacid) 30 mg Q12HR GT 06/30/20 21:00 07/30/20 20:59 07/03/20 08:17 Levothyroxine Sodium (Synthroid) 88 mcg DAILY@0630 GT 07/03/20 06:30 08/02/20 06:29 07/03/20 05:39 Vancomycin HCl ([facility] pharmacy to dose) 1 ea DAILY PRN MISC Per rx protocol 06/27/20 11:30 07/18/20 23:59 Laboratory Tests 07/02/20 12:24: POC Whole Blood Glucose 99 07/02/20 16:53: POC Whole Blood Glucose 94 07/03/20 03:35: White Blood Count 14.0H, Red Blood Count 2.66L, Hemoglobin 8.0L, Hematocrit 25.3L, Mean Corpuscular Volume 95, Mean Corpuscular Hemoglobin 30.0, Mean Corpuscular Hemoglobin Concent 31.5L, Red Cell Distribution Width 15.3H, Platelet Count 70L, Mean Platelet Volume 11.0H, Neutrophils (%) (Auto) , Lymphocytes (%) (Auto) , Monocytes (%) (Auto) , Eosinophils (%) (Auto) , Basophils (%) (Auto) , Sodium Level 133L, Potassium Level 5.1, Chloride Level 99, Carbon Dioxide Level 33H, Blood Urea Nitrogen 78H, Creatinine 4.6H, Estimat Glomerular Filtration Rate 16.2, Glucose Level 113H, Calcium Level 8.1L, Phosphorus Level 4.2, Magnesium Level 2.8H, Total Bilirubin 0.4, Aspartate Amino Transf (AST/SGOT) 142H, Alanine Aminotransferase (ALT/SGPT) 168H, Alkaline Phosphatase 494H, C-Reactive Protein, Quantitative 12.0H, Total Protein 6.8, Albumin 1.5L, Globulin 5.3, Albumin/Globulin Ratio 0.3L 07/03/20 04:54: POC Whole Blood Glucose 121H 07/03/20 11:16: POC Whole Blood Glucose 128H Height (Feet): 5 Height (Inches): 8.00 Weight (Pounds): 143 General Appearance: no apparent distress Cardiovascular: normal rate Respiratory/Chest: decreased breath sounds Abdomen: distended Leonidas Honeycutt MD Jul 03, 2020 11:45
[2020-07-03 12:00] VITALS: BP 130/74
--- NOTE | 2020-07-03 12:10 | NUR ---
NURSE NOTES: Called [facility] nephrology tele: [phone] spoke with Camacho, and informed patient schedule for HD tomorrow 07/[address] Bolanos.
--- NOTE | 2020-07-03 12:41 | General Progress Note ---
Subjective ROS Limited/Unobtainable: Yes Allergies: Coded Allergies: No Known Allergies (Unverified , 06/13/20) Subjective events noted interval notes reviewed glucose values are stable Item Value Date Time Bedside Blood Glucose 128 mg/dl H 07/03/20 1200 Bedside Blood Glucose 121 mg/dl H 07/03/20 0600 Bedside Blood Glucose 122 mg/dl H 07/03/20 0000 Bedside Blood Glucose 94 mg/dl 07/02/20 1800 Objective Last 24 Hour Vital Signs Date Time Temp Pulse Resp B/P (MAP) Pulse Ox O2 Delivery O2 Flow Rate FiO2 07/03/20 12:00 Mechanical Ventilator 07/03/20 12:00 96.3 71 16 130/74 (92) 93 07/03/20 12:00 45 07/03/20 08:00 71 07/03/20 08:00 96.3 69 20 133/75 (94) 96 07/03/20 08:00 Mechanical Ventilator 07/03/20 08:00 40 07/03/20 07:14 71 20 40 07/03/20 04:00 69 07/03/20 04:00 Mechanical Ventilator 07/03/20 04:00 50 07/03/20 04:00 97.1 71 18 119/79 (92) 97 07/03/20 02:51 69 18 50 07/03/20 00:00 97.7 71 19 112/59 (76) 98 07/03/20 00:00 Mechanical Ventilator 07/03/20 00:00 75 07/02/20 22:32 74 18 50 07/02/20 20:00 50 07/02/20 20:00 Mechanical Ventilator 07/02/20 20:00 97.7 73 20 122/67 (85) 98 07/02/20 20:00 73 07/02/20 18:38 73 20 50 07/02/20 16:00 73 07/02/20 16:00 50 07/02/20 16:00 96.0 70 24 117/80 (92) 100 07/02/20 16:00 Mechanical Ventilator 07/02/20 15:15 82 16 50 Intake and Output 07/02/20 07/03/20 19:00 07:00 Intake Total 690 ml 600 ml Output Total 500 ml 700 ml Balance 190 ml -100 ml Free Water 90 ml 50 ml Tube Feeding 600 ml 500 ml Blood Product 50 ml Output Urine Total 400 ml 300 ml Stool Total 100 ml 400 ml Laboratory Tests 07/02/20 16:53: POC Whole Blood Glucose 94 07/03/20 03:35: White Blood Count 14.0H, Red Blood Count 2.66L, Hemoglobin 8.0L, Hematocrit 25.3L, Mean Corpuscular Volume 95, Mean Corpuscular Hemoglobin 30.0, Mean Corpuscular Hemoglobin Concent 31.5L, Red Cell Distribution Width 15.3H, Platelet Count 70L, Mean Platelet Volume 11.0H, Neutrophils (%) (Auto) , Lymphocytes (%) (Auto) , Monocytes (%) (Auto) , Eosinophils (%) (Auto) , Basophils (%) (Auto) , Sodium Level 133L, Potassium Level 5.1, Chloride Level 9 9, Carbon Dioxide Level 33H, Blood Urea Nitrogen 78H, Creatinine 4.6H, Estimat Glomerular Filtration Rate 16.2, Glucose Level 113H, Calcium Level 8.1L, Phosphorus Level 4.2, Magnesium Level 2.8H, Total Bilirubin 0.4, Aspartate Amino Transf (AST/SGOT) 142H, Alanine Aminotransferase (ALT/SGPT) 168H, Alkaline Phosphatase 494H, C-Reactive Protein, Quantitative 12.0H, Total Protein 6.8, Albumin 1.5L, Globulin 5.3, Albumin/Globulin Ratio 0.3L 07/03/20 04:54: POC Whole Blood Glucose 121H 07/03/20 11:16: POC Whole Blood Glucose 128H Height (Feet): 5 Height (Inches): 8.00 Weight (Pounds): 143 General Appearance: no apparent distress Neck: normal alignment Respiratory/Chest: lungs clear Abdomen: normal bowel sounds Objective Current Medications Medications (Trade) Dose Ordered Sig/Maryjane Route PRN Reason Start Time Stop Time Status Last Admin Dose Admin Acetaminophen (Tylenol) 650 mg Q4H PRN GT Mild Pain (Pain Scale 1-3) 06/18/20 23:00 07/18/20 22:59 Acetaminophen (Tylenol) 650 mg Q4HR PRN GT FEVER 06/14/20 09:45 07/14/20 09:44 06/19/20 20:45 Aluminum Hydroxide (Amphojel) 1,920 mg Q6H GT 06/17/20 10:00 07/17/20 09:59 07/03/20 10:50 Ascorbic Acid (Vitamin C) 500 mg DAILY GT 07/01/20 09:00 07/31/20 08:59 07/03/20 08:18 Chlorhexidine Gluconate (Inés-Hex 2%) 1 applic DAILY@2000 TOPIC 06/21/20 20:00 09/19/20 19:59 07/02/20 20:11 Dextrose (Dextrose 50%) 25 ml Q30M PRN IV Hypoglycemia 06/28/20 18:30 09/26/20 18:29 Dextrose (Dextrose 50%) 50 ml Q30M PRN IV Hypoglycemia 06/28/20 18:30 09/26/20 18:29 Epoetin Bonilla (Epoetin Bonilla(ESRD on dialysis)) 10,000 unit TUE-TUE-TUE SUBQ 07/02/20 21:00 09/16/20 20:59 07/02/20 20:37 Haloperidol Lactate (Haldol) 5 mg Q6H PRN IM Agitation 06/21/20 23:15 08/05/20 23:14 06/25/20 18:17 Insulin Aspart (NovoLOG) EVERY 6 HOURS SUBQ 06/29/20 00:00 09/27/20 00:00 06/29/20 18:13 Lansoprazole (Prevacid) 30 mg Q12HR GT 06/30/20 21:00 07/30/20 20:59 07/03/20 08:17 Levothyroxine Sodium (Synthroid) 88 mcg DAILY@0630 GT 07/03/20 06:30 08/02/20 06:29 07/03/20 05:39 Vancomycin HCl (Vanco pharmacy to dose) 1 ea DAILY PRN MISC Per rx protocol 06/27/20 11:30 07/18/20 23:59 Assessment/Plan Problem List: (1) History of left below knee amputation ICD Codes: Z89.512 - Acquired absence of left leg below knee SNOMED: 983900138, 885666722472191 (2) Surgical wound dehiscence ICD Codes: T81.31XA - Disruption of external operation (surgical) wound, not elsewhere classified, initial encounter SNOMED: 19352171 (3) Hyperkalemia ICD Codes: E87.5 - Hyperkalemia SNOMED: 01798225 (4) Acute respiratory failure ICD Codes: J96.00 - Acute respiratory failure, unspecified whether with hypoxia or hypercapnia SNOMED: 30424406 Qualifiers: Qualified Codes: J96.02 - Acute respiratory failure with hypercapnia (5) Hypothyroidism ICD Codes: E03.9 - Hypothyroidism, unspecified SNOMED: 61001018 (6) Hyperglycemia ICD Codes: R73.9 - Hyperglycemia, unspecified SNOMED: 48826854 Status: progressing Assessment/Plan: continue Levothyroxine 88 mcg daily repeat thyroid function in 1-2 weeks continue glucose monitoring Davy Ramos MD Jul 03, 2020 12:40
--- NOTE | 2020-07-03 12:53 | Infectious Diseases Prog Note ---
Assessment/Plan Assessment/Plan IMPRESSION: Pneumonia with Pseudomonas & Stenotrophomonas treated Hypothermia COVID19 X 2: negative Ventilator-dependent respiratory failure, Diabetes mellitus type 2, Hypertension, History of left BKA, Hypertension, anemia, Major depression, Pressure ulcer, Elevated transaminase, Hyperkalemia. Anemia R leg DVT s/p IVC filter Sacral osteomyelitis Severe anemia Acute renal failure ESRD Hypercapnic respiratory failure Hematuria Thrombocytopenia Diverticulosis Diarrhea, C. difficile negative RECOMMENDATION: Continue Vancomycin until 07/18 Subjective ROS Limited/Unobtainable: Yes Constitutional: Reports: fatigue Psychiatric: Reports: other - on restraint Allergies: Coded Allergies: No Known Allergies (Unverified , 06/13/20) Objective Last 24 Hour Vital Signs Date Time Temp Pulse Resp B/P (MAP) Pulse Ox O2 Delivery O2 Flow Rate FiO2 07/03/20 12:00 Mechanical Ventilator 07/03/20 12:00 96.3 71 16 130/74 (92) 93 07/03/20 12:00 45 07/03/20 11:24 68 21 45 07/03/20 08:00 71 07/03/20 08:00 96.3 69 20 133/75 (94) 96 07/03/20 08:00 Mechanical Ventilator 07/03/20 08:00 40 07/03/20 07:14 71 20 40 07/03/20 04:00 69 07/03/20 04:00 Mechanical Ventilator 07/03/20 04:00 50 07/03/20 04:00 97.1 71 18 119/79 (92) 97 07/03/20 02:51 69 18 50 07/03/20 00:00 97.7 71 19 112/59 (76) 98 07/03/20 00:00 Mechanical Ventilator 07/03/20 00:00 75 07/02/20 22:32 74 18 50 07/02/20 20:00 50 07/02/20 20:00 Mechanical Ventilator 07/02/20 20:00 97.7 73 20 122/67 (85) 98 07/02/20 20:00 73 07/02/20 18:38 73 20 50 07/02/20 16:00 73 07/02/20 16:00 50 07/02/20 16:00 96.0 70 24 117/80 (92) 100 07/02/20 16:00 Mechanical Ventilator 07/02/20 15:15 82 16 50 Height (Feet): 5 Height (Inches): 8.00 Weight (Pounds): 143 HEENT: status post trach Respiratory/Chest: lungs clear, other - on ventilator Cardiovascular: normal rate Abdomen: soft, non tender, other - GT feeding Extremities: other - left BKA Skin: other - sacral surgical wound Neurologic/Psychiatric: alert, responsive Laboratory Tests Test 07/02/20 16:53 07/03/20 03:35 07/03/20 04:54 07/03/20 11:16 POC Whole Blood Glucose 94 MG/DL (74-106) 121 MG/DL (74-106) H 128 MG/DL (74-106) H White Blood Count 14.0 K/UL (4.8-10.8) H Red Blood Count 2.66 M/UL (4.70-6.10) L Hemoglobin 8.0 G/DL (14.2-18.0) L Hematocrit 25.3 % (42.0-52.0) L Mean Corpuscular Volume 95 FL (80-99) Mean Corpuscular Hemoglobin 30.0 PG (27.0-31.0) Mean Corpuscular Hemoglobin Concent 31.5 G/DL (32.0-36.0) L Red Cell Distribution Width 15.3 % (11.6-14.8) H Platelet Count 70 K/UL (150-450) L Mean Platelet Volume 11.0 FL (6.5-10.1) H Neutrophils (%) (Auto) % (45.0-75.0) Lymphocytes (%) (Auto) % (20.0-45.0) Monocytes (%) (Auto) % (1.0-10.0) Eosinophils (%) (Auto) % (0.0-3.0) Basophils (%) (Auto) % (0.0-2.0) Sodium Level 133 MMOL/L (136-145) L Potassium Level 5.1 MMOL/L (3.5-5.1) Chloride Level 99 MMOL/L (98-107) Carbon Dioxide Level 33 MMOL/L (21-32) H Blood Urea Nitrogen 78 mg/dL (7-18) H Creatinine 4.6 MG/DL (0.55-1.30) H Estimat Glomerular Filtration Rate 16.2 mL/min (>60) Glucose Level 113 MG/DL (74-106) H Calcium Level 8.1 MG/DL (8.5-10.1) L Phosphorus Level 4.2 MG/DL (2.5-4.9) Magnesium Level 2.8 MG/DL (1.8-2.4) H Total Bilirubin 0.4 MG/DL (0.2-1.0) Aspartate Amino Transf (AST/SGOT) 142 U/L (15-37) H Alanine Aminotransferase (ALT/SGPT) 168 U/L (12-78) H Alkaline Phosphatase 494 U/L (46-116) H C-Reactive Protein, Quantitative 12.0 mg/dL (0.00-0.90) H Total Protein 6.8 G/DL (6.4-8.2) Albumin 1.5 G/DL (3.4-5.0) L Globulin 5.3 g/dL Albumin/Globulin Ratio 0.3 (1.0-2.7) L Current Medications Medications (Trade) Dose Ordered Sig/Maryjane Route PRN Reason Start Time Stop Time Status Last Admin Dose Admin Acetaminophen (Tylenol) 650 mg Q4H PRN GT Mild Pain (Pain Scale 1-3) 06/18/20 23:00 07/18/20 22:59 Acetaminophen (Tylenol) 650 mg Q4HR PRN GT FEVER 06/14/20 09:45 07/14/20 09:44 06/19/20 20:45 Aluminum Hydroxide (Amphojel) 1,920 mg Q6H GT 06/17/20 10:00 07/17/20 09:59 07/03/20 10:50 Ascorbic Acid (Vitamin C) 500 mg DAILY GT 07/01/20 09:00 07/31/20 08:59 07/03/20 08:18 Chlorhexidine Gluconate (Inés-Hex 2%) 1 applic DAILY@1999 TOPIC 06/21/20 20:00 09/19/20 19:59 07/02/20 20:11 Dextrose (Dextrose 50%) 25 ml Q30M PRN IV Hypoglycemia 06/28/20 18:30 09/26/20 18:29 Dextrose (Dextrose 50%) 50 ml Q30M PRN IV Hypoglycemia 06/28/20 18:30 09/26/20 18:29 Epoetin Bonilla (Epoetin Bonilla(ESRD on dialysis)) 10,000 unit TUE-TUE-TUE SUBQ 07/02/20 21:00 09/16/20 20:59 07/02/20 20:37 Haloperidol Lactate (Haldol) 5 mg Q6H PRN IM Agitation 06/21/20 23:15 08/05/20 23:14 06/25/20 18:17 Insulin Aspart (NovoLOG) EVERY 6 HOURS SUBQ 06/29/20 00:00 09/27/20 00:00 06/29/20 18:13 Lansoprazole (Prevacid) 30 mg Q12HR GT 06/30/20 21:00 07/30/20 20:59 07/03/20 08:17 Levothyroxine Sodium (Synthroid) 88 mcg DAILY@0630 GT 07/03/20 06:30 08/02/20 06:29 07/03/20 05:39 Vancomycin HCl (Vanc pharmacy to dose) 1 ea DAILY PRN MISC Per rx protocol 06/27/20 11:30 07/18/20 23:59 Paul Amador MD Jul 03, 2020 12:53
--- NOTE | 2020-07-03 13:28 | General Progress Note ---
Subjective Allergies: Coded Allergies: No Known Allergies (Unverified , 06/13/20) Subjective above noted stools liquid, in rectal tube brown tolerating TF Objective Last 24 Hour Vital Signs Date Time Temp Pulse Resp B/P (MAP) Pulse Ox O2 Delivery O2 Flow Rate FiO2 07/03/20 12:00 Mechanical Ventilator 07/03/20 12:00 96.3 71 16 130/74 (92) 93 07/03/20 12:00 45 07/03/20 11:24 68 21 45 07/03/20 08:00 71 07/03/20 08:00 96.3 69 20 133/75 (94) 96 07/03/20 08:00 Mechanical Ventilator 07/03/20 08:00 40 07/03/20 07:14 71 20 40 07/03/20 04:00 69 07/03/20 04:00 Mechanical Ventilator 07/03/20 04:00 50 07/03/20 04:00 97.1 71 18 119/79 (92) 97 07/03/20 02:51 69 18 50 07/03/20 00:00 97.7 71 19 112/59 (76) 98 07/03/20 00:00 Mechanical Ventilator 07/03/20 00:00 75 07/02/20 22:32 74 18 50 07/02/20 20:00 50 07/02/20 20:00 Mechanical Ventilator 07/02/20 20:00 97.7 73 20 122/67 (85) 98 07/02/20 20:00 73 07/02/20 18:38 73 20 50 07/02/20 16:00 73 07/02/20 16:00 50 07/02/20 16:00 96.0 70 24 117/80 (92) 100 07/02/20 16:00 Mechanical Ventilator 07/02/20 15:15 82 16 50 Intake and Output 07/02/20 07/03/20 19:00 07:00 Intake Total 690 ml 600 ml Output Total 500 ml 700 ml Balance 190 ml -100 ml Free Water 90 ml 50 ml Tube Feeding 600 ml 500 ml Blood Product 50 ml Output Urine Total 400 ml 300 ml Stool Total 100 ml 400 ml Laboratory Tests 07/02/20 16:53: POC Whole Blood Glucose 94 07/03/20 03:35: White Blood Count 14.0H, Red Blood Count 2.66L, Hemoglobin 8.0L, Hematocrit 25.3L, Mean Corpuscular Volume 95, Mean Corpuscular Hemoglobin 30.0, Mean Co rpuscular Hemoglobin Concent 31.5L, Red Cell Distribution Width 15.3H, Platelet Count 70L, Mean Platelet Volume 11.0H, Neutrophils (%) (Auto) , Lymphocytes (%) (Auto) , Monocytes (%) (Auto) , Eosinophils (%) (Auto) , Basophils (%) (Auto) , Sodium Level 133L, Potassium Level 5.1, Chloride Level 99, Carbon Dioxide Level 33H, Blood Urea Nitrogen 78H, Creatinine 4.6H, Estimat Glomerular Filtration Rate 16.2, Glucose Level 113H, Calcium Level 8.1L, Phosphorus Level 4.2, Magnesium Level 2.8H, Total Bilirubin 0.4, Aspartate Amino Transf (AST/SGOT) 142H, Alanine Aminotransferase (ALT/SGPT) 168H, Alkaline Phosphatase 494H, C- Reactive Protein, Quantitative 12.0H, Total Protein 6.8, Albumin 1.5L, Globulin 5.3, Albumin/Globulin Ratio 0.3L 07/03/20 04:54: POC Whole Blood Glucose 121H 07/03/20 11:16: POC Whole Blood Glucose 128H Height (Feet): 5 Height (Inches): 8.00 Weight (Pounds): 143 Objective Debilitated elderly man NCAT supple Coarse BS RRR abd sofft, flat, (+) GT s/p LLE BKA Assessment/Plan Status: progressing Assessment/Plan: Assessment Abnormal LFT - improving - ? infectious hepatitis - Hep A and B negative - ? vascular - ? meds - ? other Gross hematuria - improved Acute anemia, ? urinary losses, ? GI loss ? surgical loss declining platelet count Recommendations - f/u all liver tests - continue to hold seroquel - follow LFT and CBC - family to decide on a level of care plan - no plans for GI w/u, per family discussion - TF - Transfuse Fco Banerjee MD Jul 03, 2020 13:28
[2020-07-03 16:00] VITALS: BP 127/77
--- NOTE | 2020-07-03 19:15 | NUR ---
NURSE NOTES: Receive report from MAX Vicente. Pt awake in bed, eyes open, follows commands, afebrile and no respiratory distress noted. trache to vent shiley 8, AC 16, Tidal volume 500, Fi O2 45%, P5 saturating at 100%. On Nephro 40ml/hr via GT infusing well without and sediments and residual. PT tolerating well. With Right IJ non tunneled dialysis catheter intact, asymptomatic. Dressing has scant bleeding. Dr Mares aware per AM nurse. Dressing was changed with minimal dried blood no active bleeding noted.With left hand 22g and right AC 20g iv lines intact, patent and asymptomatic. with Sparrow catheter to urine bag draining well with dark gerard yellow. With both soft wrist restraints .Skin is intact. pulses are palpable. AROM done and pt tolerated well. HOB elevated. needs were attended. Call light within reach. Bed rails are up and wheels are up. Bed alarm is on. continue plan of care.
--- NOTE | 2020-07-03 19:35 | NUR ---
NURSE HAND-OFF REPORT: Important Events on Shift: NA , HD tomorrow Patient Status: stable Diet: Vital AF @ 50ml/h Pending Orders: na Pending Results/Labs:na Pending notification:na Latest Vital Signs: Temperature 97.0 , Pulse 68 , B/P 127 /77 , Respiratory Rate 18 , O2 SAT 96 , Mechanical Ventilator, O2 Flow Rate 15.0 . Vital Sign Comment: stable EKG Rhythm: Sinus Rhythm Rhythm change?: N Notified?: N -Dr. Ruel BENDER Response: No New Orders Received Latest Santiago Fall Score: 95 Fall Risk: High Risk Safety Measures: Call light Within Reach, Bed Alarm Zone 2, Side Rails Side Rails x3, Bed position Low and Locked. Fall Precautions: Yellow Socks Yellow Gown Door Sign Patient Fall Education Report given to MAX WILLINGHAM.
[2020-07-03 20:00] VITALS: BP 129/78
[2020-07-03] MEDS: Dyna-Hex 2% Top Sol 2oz TOPIC SCH (20:21)
[2020-07-03] MEDS ORDERED: Tubing IV Secondary IV ONE (21:11)
[2020-07-03] MEDS ORDERED: NS 275ml ONE (21:11)
--- NOTE | 2020-07-03 21:41 | General Progress Note ---
Subjective ROS Limited/Unobtainable: Yes Allergies: Coded Allergies: No Known Allergies (Unverified , 06/13/20) Objective Last 24 Hour Vital Signs Date Time Temp Pulse Resp B/P (MAP) Pulse Ox O2 Delivery O2 Flow Rate FiO2 07/03/20 20:00 Mechanical Ventilator 07/03/20 20:00 45 07/03/20 20:00 96.6 70 19 129/78 (95) 96 07/03/20 20:00 69 07/03/20 19:36 74 20 45 07/03/20 16:00 Mechanical Ventilator 07/03/20 16:00 68 07/03/20 16:00 45 07/03/20 16:00 97.0 68 18 127/77 (94) 96 07/03/20 15:24 70 23 45 07/03/20 12:00 Mechanical Ventilator 07/03/20 12:00 68 07/03/20 12:00 96.3 71 16 130/74 (92) 93 07/03/20 12:00 45 07/03/20 11:24 68 21 45 07/03/20 08:00 71 07/03/20 08:00 96.3 69 20 133/75 (94) 96 07/03/20 08:00 Mechanical Ventilator 07/03/20 08:00 40 07/03/20 07:14 71 20 40 07/03/20 04:00 69 07/03/20 04:00 Mechanical Ventilator 07/03/20 04:00 50 07/03/20 04:00 97.1 71 18 119/79 (92) 97 07/03/20 02:51 69 18 50 07/03/20 00:00 97.7 71 19 112/59 (76) 98 07/03/20 00:00 Mechanical Ventilator 07/03/20 00:00 75 07/02/20 22:32 74 18 50 Intake and Output 07/02/20 07/03/20 19:00 07:00 Intake Total 690 ml 650 ml Output Total 500 ml 700 ml Balance 190 ml -50 ml Free Water 90 ml 50 ml Tube Feeding 600 ml 550 ml Blood Product 50 ml Output Urine Total 400 ml 300 ml Stool Total 100 ml 400 ml Laboratory Tests 07/03/20 03:35: White Blood Count 14.0H, Red Blood Count 2.66L, Hemoglobin 8.0L, Hematocrit 25.3L, Mean Corpuscular Volume 95, Mean Corpuscular Hemoglobin 30.0, Mean Corpuscular Hemoglobin Concent 31.5L, Red Cell Distribution Width 15.3H, Platelet Count 70L, Mean Platelet Volume 11.0H, Neutrophils (%) (Auto) , Lymphocytes (%) (Auto) , Monocytes (%) (Auto) , Eosinophils (%) (Auto) , Basophils (%) (Auto) , Sodium Level 133L, Potassium Level 5.1, Chloride Level 99, Carbon Dioxide Level 33H, Blood Urea Nitrogen 78H, Creatinine 4.6H, Estimat Glomerular Filtration Rate 16.2, Glucose Level 113H, Calcium Level 8.1L, Phosphorus Level 4.2, Magnesium Level 2.8H, Total Bilirubin 0.4, Aspartate Amino Transf (AST/SGOT) 142H, Alanine Aminotransferase (ALT/SGPT) 168H, Alkaline Phosphatase 494H, C-Reactive Protein, Quantitative 12.0H, Total Protein 6.8, Albumin 1.5L, Globulin 5.3, Albumin/Globulin Ratio 0.3L 07/03/20 04:54: POC Whole Blood Glucose 121H 07/03/20 11:16: POC Whole Blood Glucose 128H 07/03/20 16:15: POC Whole Blood Glucose 110H Height (Feet): 5 Height (Inches): 8.00 Weight (Pounds): 143 Assessment/Plan Problem List: (1) Anemia ICD Codes: D64.9 - Anemia, unspecified SNOMED: 189899927 (2) KERRI (acute kidney injury) ICD Codes: N17.9 - Acute kidney failure, unspecified SNOMED: 4225715, 45672665 (3) Acute respiratory failure ICD Codes: J96.00 - Acute respiratory failure, unspecified whether with hypoxia or hypercapnia SNOMED: 63561835 Qualifiers: Qualified Codes: J96.02 - Acute respiratory failure with hypercapnia (4) Hyperkalemia ICD Codes: E87.5 - Hyperkalemia SNOMED: 12025347 (5) Abnormal laboratory test result ICD Codes: R89.9 - Unspecified abnormal finding in specimens from other organs, systems and tissues SNOMED: 155686969 (6) Anemia ICD Codes: D64.9 - Anemia, unspecified SNOMED: 505246876 Status: progressing Assessment/Plan: s/p code blue afebrile abx per id no sob resp insuff er dr jones sacral wound dehiscence s/p dehiscence chf no change s/p acute mi Neida Apple MD Jul 03, 2020 21:41
--- NOTE | 2020-07-03 23:40 | NUR ---
NURSE NOTES: Pt was noted calm in bed, watching tv. Pt able to follow commands. Remove both soft wrist restraints. Skin intact. pulses are palpable. no paresthesia noted. Pt able to do AROM like flexion and extension of both arms. Continue to monitor the patient.
[2020-07-04] VITALS: BP 128/74
[2020-07-04] MEDS: NovoLOG Insulin Flexpen SUBQ SCH ×5 (00:01→23:24)
[2020-07-04 04:00] VITALS: BP 121/74
[2020-07-04] MEDS: Aluminum Hydroxide Gel Susp 15ml GT SCH ×4 (04:51→21:45)
--- NOTE | 2020-07-04 05:10 | NUR ---
NURSE NOTES: Pt was awake and noted trying to reach for IV lines. approached patient and held hands to prevent from pulling the medical devices. Explained to patient the risk of pulling devices. Pt still reaching for the IV lines. initiated both soft wrist restraints. skin is intact. pulses are palpable. no paresthesia noted. made aware
[2020-07-04 05:12] LABS: HEMATOCRIT 21.9 % (42.0-52.0); HEMOGLOBIN 7.4 G/DL (14.2-18.0); MEAN CORPUSCULAR VOLUME 88 FL (80-99); PLATELET COUNT 91 K/UL (150-450); RED BLOOD COUNT 2.48 M/UL (4.70-6.10); RED CELL DISTRIBUTION WIDTH 16.4 % (11.6-14.8); WHITE BLOOD COUNT 14.1 K/UL (4.8-10.8)
[2020-07-04 05:40] LABS: ALANINE AMINOTRANSFERASE 133 U/L (12-78); ALBUMIN 1.4 G/DL (3.4-5.0); ALBUMIN/GLOBULIN RATIO 0.2 (1.0-2.7); ALKALINE PHOSPHATASE 461 U/L (46-116); ASPARTATE AMINO TRANSFERASE 114 U/L (15-37); BILIRUBIN,TOTAL 0.4 MG/DL (0.2-1.0); BLOOD UREA NITROGEN 90 mg/dL (7-18); CALCIUM 8.3 MG/DL (8.5-10.1); CARBON DIOXIDE 32 MMOL/L (21-32); CHLORIDE 98 MMOL/L (98-107); CREATININE 5.2 MG/DL (0.55-1.30); GAMMA GLUTAMYL TRANSPEPTIDASE 84 U/L (5-85); PHOSPHORUS 4.4 MG/DL (2.5-4.9); POTASSIUM 5.4 MMOL/L (3.5-5.1); SODIUM 131 MMOL/L (136-145)
--- NOTE | 2020-07-04 06:15 | NUR ---
NURSE NOTES: Pt awake in bed , watching tv. No respiratory distress noted. Continue to monitor the patient.
--- NOTE | 2020-07-04 07:10 | NUR ---
NURSE NOTES: Received report from MAX WILLINGHAM. Pt is lying in bed awake, oriented x 2-3. SR on the leather softener. Trach to vent AC16, TV500, FiO2 45%, PEEP 5, tolerating with O2 sat 99%. Stable vital signs. Peripheral IV are intact and patent. Restraints are on with no skin issues around the area. GT is intact and patent and running Vital AF @50cc/hr. Sparrow catheter is intact and patent draining dark gerard urine. Rectal tube is intact and patent draining dark brown to black urine. Bed is locked and in lowest position, bed alarm on, call light is with the pt, head of bed is elevated at all times.Will continue to monitor pt. Will continue with the plan of care.
--- NOTE | 2020-07-04 07:10 | NUR ---
NURSE HAND-OFF REPORT: Important Events on Shift: stable Patient Status:stable Diet: vital af Pending Orders: n Pending Results/Labs:n Pending MD notification:n Latest Vital Signs: Temperature 96.9 , Pulse 97 , B/P 121 /74 , Respiratory Rate 19 , O2 SAT 96 , Mechanical Ventilator, O2 Flow Rate 15.0 . Vital Sign Comment: n EKG Rhythm: Sinus Rhythm Rhythm change?: N MD Notified?: N -Dr. Ruel BENDER Response: No New Orders Received Latest Santiago Fall Score: 95 Fall Risk: High Risk Safety Measures: Call light Within Reach, Bed Alarm Zone 2, Side Rails Side Rails x3, Bed position Low and Locked. Fall Precautions: Yellow Socks Yellow Gown Door Sign Patient Fall Education Report given to MAX Márquez.
--- NOTE | 2020-07-04 07:23 | Hematology/Onc Progress Note ---
Assessment/Plan Assessment/Plan ASSESSMENT AND PLAN: #. Anemia that is likely due to chronic disease, r/o gi bleeding --> anemia panel has been reviewed, ferritin is >2000 --> no e/o hemolysis is noted --> transfuse on prn basis --> blood consent has been signed --> hgb 7.4-->7.4-->7-->6.7-->8-->7.5-->8.4-->9.1->8.1-->5.6->7.4-->7-->6.6->8 --> folic acid is wnl --> 1 unit prbc 06/18 --> epogen has been started # Acute DVT in the distal right common femoral vein and profunda femoris vein. --> DUPLEX. Acute DVT in the distal right common femoral vein and profunda femoris vein. 2. No evidence of left lower extremity DVT. --> cannot anticoagulate at this time --> 06/17 s/p ivc filter placement --> hold off anticoag # Leukocytosis is likely due to b/l infiltrates --> on abx as per id -> ABX yolis/vanc-->yolis/linezolid--> yolis/levaq-->linezolid->vanc --> continue trend --> wbc 15-->12->9.5-->13-->14 # Thrombocytopenia likely due to infection --> plt 82-->67->78 --> hep and hiv neg # Respiratory failure in this patient with vent-dependent respiratory failure. 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 # Dysphagia --> status post PEG placement. # Renal failure. -> per Dr. Honeycutt. # Hyperkalemia and kayxelate as needed. # Dvt ppx scds Appreciate consultation and angela RN Subjective Allergies: Coded Allergies: No Known Allergies (Unverified , 06/13/20) Subjective 06/16 meds noted, labs reviewed, vent to trach, for ivc filter potentially 06/17 labs noted, meds reviewed, for ivc filter once covid neg 06/18 labs are noted, on vent and gt, 1 unit prbc ordered 06/19 labs pending, is s/p ivcf placement yesterday 06/20 for hd nontunneled cathter placement, no bleeding 06/22 labs noted, no bleeding, found down overnight, got ct brain, is neg 06/23 overnight is agitated and requiring restraints 06/24 labs noted, meds reviewed, hgb pending for am, restraints 06/25 labs reviewed, meds noted, no bleeding, hgb improved 06/26 per Rn, with rapid response overnight hr is improved, meds noted 06/27 labs reviewed, meds noted, no bleeding, hgb 5.6, wbc elevated, to get 2 unit prbc 06/29 on vanc, wbc 13, hgb 7.3, plt 88, on vanc 06/30 meds reviewed, hgb at 7, occult +, as per gi care, with diarrhea 07/01 plt 67, hgb 6.6, to get 2 units prbc, angela RN at bedside 07/02 RUC permacath reviewed, minimal bleeding, meds noted 07/03 gt feeds, meds noted, no bleeding, labs reviewed 07/04 awake, alert is on ivf, meds noted, labs reviewed Objective Objective Current Medications Medications (Trade) Dose Ordered Sig/Maryjane Route PRN Reason Start Time Stop Time Status Last Admin Dose Admin Acetaminophen (Tylenol) 650 mg Q4H PRN GT Mild Pain (Pain Scale 1-3) 06/18/20 23:00 07/18/20 22:59 Acetaminophen (Tylenol) 650 mg Q4HR PRN GT FEVER 06/14/20 09:45 07/14/20 09:44 06/19/20 20:45 Aluminum Hydroxide (Amphojel) 1,920 mg Q6H GT 06/17/20 10:00 07/17/20 09:59 07/04/20 04:51 Ascorbic Acid (Vitamin C) 500 mg DAILY GT 07/01/20 09:00 07/31/20 08:59 07/03/20 08:18 Chlorhexidine Gluconate (Inés-Hex 2%) 1 applic DAILY@1999 TOPIC 06/21/20 20:00 09/19/20 19:59 07/03/20 20:21 Dextrose (Dextrose 50%) 25 ml Q30M PRN IV Hypoglycemia 06/28/20 18:30 09/26/20 18:29 Dextrose (Dextrose 50%) 50 ml Q30M PRN IV Hypoglycemia 06/28/20 18:30 09/26/20 18:29 Epoetin Bonilla (Epoetin Bonilla(ESRD on dialysis)) 10,000 unit TUE- SUBQ 07/02/20 21:00 09/16/20 20:59 07/02/20 20:37 Haloperidol Lactate (Haldol) 5 mg Q6H PRN IM Agitation 06/21/20 23:15 08/05/20 23:14 06/25/20 18:17 Insulin Aspart (NovoLOG) EVERY 6 HOURS SUBQ 06/29/20 00:00 09/27/20 00:00 07/04/20 00:01 Lansoprazole (Prevacid) 30 mg Q12HR GT 06/30/20 21:00 07/30/20 20:59 07/03/20 20:21 Levothyroxine Sodium (Synthroid) 88 mcg DAILY@0630 GT 07/03/20 06:30 08/02/20 06:29 07/04/20 06:28 [facility] 1 ea DAILY PRN MISC Per rx protocol 06/27/20 11:30 07/18/20 23:59 Last 24 Hour Vital Signs Date Time Temp Pulse Resp B/P (MAP) Pulse Ox O2 Delivery O2 Flow Rate FiO2 07/04/20 04:00 Mechanical Ventilator 07/04/20 04:00 45 07/04/20 04:00 96.9 97 19 121/74 (90) 96 07/04/20 03:37 67 07/04/20 03:15 68 20 45 07/04/20 01:00 68 23 96 Mechanical Ventilator 45 07/04/20 00:00 45 07/04/20 00:00 Mechanical Ventilator 07/04/20 00:00 96.4 70 19 128/74 (92) 96 07/03/20 23:30 70 07/03/20 23:17 70 21 45 07/03/20 20:00 Mechanical Ventilator 07/03/20 20:00 45 07/03/20 20:00 96.6 70 19 129/78 (95) 96 07/03/20 20:00 69 07/03/20 19:36 74 20 45 07/03/20 16:00 Mechanical Ventilator 07/03/20 16:00 68 07/03/20 16:00 45 07/03/20 16:00 97.0 68 18 127/77 (94) 96 07/03/20 15:24 70 23 45 07/03/20 12:00 Mechanical Ventilator 07/03/20 12:00 68 07/03/20 12:00 96.3 71 16 130/74 (92) 93 07/03/20 12:00 45 07/03/20 11:24 68 21 45 07/03/20 08:00 71 07/03/20 08:00 96.3 69 20 133/75 (94) 96 07/03/20 08:00 Mechanical Ventilator 07/03/20 08:00 40 07/03/20 07:14 71 20 40 07/03/20 04:00 69 07/03/20 04:00 Mechanical Ventilator 07/03/20 04:00 50 07/03/20 04:00 97.1 71 18 119/79 (92) 97 07/03/20 02:51 69 18 50 07/03/20 00:00 97.7 71 19 112/59 (76) 98 07/03/20 00:00 Mechanical Ventilator 07/03/20 00:00 75 07/02/20 22:32 74 18 50 07/02/20 20:00 50 07/02/20 20:00 Mechanical Ventilator 07/02/20 20:00 97.7 73 20 122/67 (85) 98 07/02/20 20:00 73 07/02/20 18:38 73 20 50 07/02/20 16:00 73 07/02/20 16:00 50 07/02/20 16:00 96.0 70 24 117/80 (92) 100 07/02/20 16:00 Mechanical Ventilator 07/02/20 15:15 82 16 50 07/02/20 12:00 Mechanical Ventilator 07/02/20 12:00 50 07/02/20 12:00 97.3 74 21 126/68 (87) 98 07/02/20 12:00 73 07/02/20 11:10 74 19 50 07/02/20 08:00 50 07/02/20 08:00 Mechanical Ventilator 07/02/20 08:00 97.2 72 20 128/71 (90) 98 07/02/20 08:00 71 Intake and Output 07/03/20 07/04/20 19:00 07:00 Intake Total 560 ml 550 ml Output Total 130 ml Balance 430 ml 550 ml Free Water 60 ml 50 ml Tube Feeding 500 ml 500 ml Output Urine Total 100 ml Stool Total 30 ml Labs Test 07/01/20 07:55 07/01/20 12:15 07/01/20 17:41 07/01/20 18:00 HIV (1&2) Antibody Rapid Negative (NEGATIVE) POC Whole Blood Glucose 113 MG/DL (74-106) 133 MG/DL (74-106) Random Vancomycin Level 25.7 ug/mL Test 07/01/20 23:46 07/02/20 03:35 07/02/20 05:22 07/02/20 12:24 POC Whole Blood Glucose 122 MG/DL (74-106) 106 MG/DL (74-106) 99 MG/DL (74-106) White Blood Count 14.0 K/UL (4.8-10.8) Red Blood Count 2.74 M/UL (4.70-6.10) Hemoglobin 8.3 G/DL (14.2-18.0) Hematocrit 26.1 % (42.0-52.0) Mean Corpuscular Volume 95 FL (80-99) Mean Corpuscular Hemoglobin 30.3 PG (27.0-31.0) Mean Corpuscular Hemoglobin Concent 31.8 G/DL (32.0-36.0) Red Cell Distribution Width 15.4 % (11.6-14.8) Platelet Count 78 K/UL (150-450) Mean Platelet Volume 11.4 FL (6.5-10.1) Neutrophils (%) (Auto) % (45.0-75.0) Lymphocytes (%) (Auto) % (20.0-45.0) Monocytes (%) (Auto) % (1.0-10.0) Eosinophils (%) (Auto) % (0.0-3.0) Basophils (%) (Auto) % (0.0-2.0) Differential Total Cells Counted 100 Neutrophils % (Manual) 74 % (45-75) Lymphocytes % (Manual) 14 % (20-45) Monocytes % (Manual) 5 % (1-10) Eosinophils % (Manual) 7 % (0-3) Basophils % (Manual) 0 % (0-2) Band Neutrophils 0 % (0-8) Platelet Estimate Decreased Platelet Morphology Giant Platelets Occasional Hypochromasia 1+ Anisocytosis 1+ Sodium Level 133 MMOL/L (136-145) Potassium Level 4.8 MMOL/L (3.5-5.1) Chloride Level 99 MMOL/L (98-107) Carbon Dioxide Level 33 MMOL/L (21-32) Anion Gap 1 mmol/L (5-15) Blood Urea Nitrogen 67 mg/dL (7-18) Creatinine 3.9 MG/DL (0.55-1.30) Estimat Glomerular Filtration Rate 19.8 mL/min (>60) Glucose Level 119 MG/DL (74-106) Calcium Level 8.0 MG/DL (8.5-10.1) Phosphorus Level 3.9 MG/DL (2.5-4.9) Magnesium Level 2.6 MG/DL (1.8-2.4) Total Bilirubin 0.3 MG/DL (0.2-1.0) Aspartate Amino Transf (AST/SGOT) 205 U/L (15-37) Alanine Aminotransferase (ALT/SGPT) 214 U/L (12-78) Alkaline Phosphatase 510 U/L (46-116) C-Reactive Protein, Quantitative 11.1 mg/dL (0.00-0.90) Pro-B-Type Natriuretic Peptide > 80047 pg/mL (0-125) Total Protein 6.9 G/DL (6.4-8.2) Albumin 1.5 G/DL (3.4-5.0) Globulin 5.4 g/dL Albumin/Globulin Ratio 0.3 (1.0-2.7) Test 07/02/20 16:53 07/03/20 03:35 07/03/20 04:54 07/03/20 11:16 POC Whole Blood Glucose 94 MG/DL (74-106) 121 MG/DL (74-106) 128 MG/DL (74-106) White Blood Count 14.0 K/UL (4.8-10.8) Red Blood Count 2.66 M/UL (4.70-6.10) Hemoglobin 8.0 G/DL (14.2-18.0) Hematocrit 25.3 % (42.0-52.0) Mean Corpuscular Volume 95 FL (80-99) Mean Corpuscular Hemoglobin 30.0 PG (27.0-31.0) Mean Corpuscular Hemoglobin Concent 31.5 G/DL (32.0-36.0) Red Cell Distribution Width 15.3 % (11.6-14.8) Platelet Count 70 K/UL (150-450) Mean Platelet Volume 11.0 FL (6.5-10.1) Neutrophils (%) (Auto) % (45.0-75.0) Lymphocytes (%) (Auto) % (20.0-45.0) Monocytes (%) (Auto) % (1.0-10.0) Eosinophils (%) (Auto) % (0.0-3.0) Basophils (%) (Auto) % (0.0-2.0) Sodium Level 133 MMOL/L (136-145) Potassium Level 5.1 MMOL/L (3.5-5.1) Chloride Level 99 MMOL/L (98-107) Carbon Dioxide Level 33 MMOL/L (21-32) Blood Urea Nitrogen 78 mg/dL (7-18) Creatinine 4.6 MG/DL (0.55-1.30) Estimat Glomerular Filtration Rate 16.2 mL/min (>60) Glucose Level 113 MG/DL (74-106) Calcium Level 8.1 MG/DL (8.5-10.1) Phosphorus Level 4.2 MG/DL (2.5-4.9) Magnesium Level 2.8 MG/DL (1.8-2.4) Total Bilirubin 0.4 MG/DL (0.2-1.0) Aspartate Amino Transf (AST/SGOT) 142 U/L (15-37) Alanine Aminotransferase (ALT/SGPT) 168 U/L (12-78) Alkaline Phosphatase 494 U/L (46-116) C-Reactive Protein, Quantitative 12.0 mg/dL (0.00-0.90) Total Protein 6.8 G/DL (6.4-8.2) Albumin 1.5 G/DL (3.4-5.0) Globulin 5.3 g/dL Albumin/Globulin Ratio 0.3 (1.0-2.7) Test 07/03/20 16:15 07/03/20 23:59 07/04/20 04:05 07/04/20 06:11 POC Whole Blood Glucose 110 MG/DL (74-106) 164 MG/DL (74-106) 130 MG/DL (74-106) White Blood Count 14.1 K/UL (4.8-10.8) Red Blood Count 2.48 M/UL (4.70-6.10) Hemoglobin 7.4 G/DL (14.2-18.0) Hematocrit 21.9 % (42.0-52.0) Mean Corpuscular Volume 88 FL (80-99) Mean Corpuscular Hemoglobin 30.0 PG (27.0-31.0) Mean Corpuscular Hemoglobin Concent 34.0 G/DL (32.0-36.0) Red Cell Distribution Width 16.4 % (11.6-14.8) Platelet Count 91 K/UL (150-450) Mean Platelet Volume 11.0 FL (6.5-10.1) Neutrophils (%) (Auto) % (45.0-75.0) Lymphocytes (%) (Auto) % (20.0-45.0) Monocytes (%) (Auto) % (1.0-10.0) Eosinophils (%) (Auto) % (0.0-3.0) Basophils (%) (Auto) % (0.0-2.0) Sodium Level 131 MMOL/L (136-145) Potassium Level 5.4 MMOL/L (3.5-5.1) Chloride Level 98 MMOL/L (98-107) Carbon Dioxide Level 32 MMOL/L (21-32) Blood Urea Nitrogen 90 mg/dL (7-18) Creatinine 5.2 MG/DL (0.55-1.30) Estimat Glomerular Filtration Rate 14.2 mL/min (>60) Glucose Level 124 MG/DL (74-106) Calcium Level 8.3 MG/DL (8.5-10.1) Phosphorus Level 4.4 MG/DL (2.5-4.9) Magnesium Level 2.8 MG/DL (1.8-2.4) Total Bilirubin 0.4 MG/DL (0.2-1.0) Gamma Glutamyl Transpeptidase 84 U/L (5-85) Aspartate Amino Transf (AST/SGOT) 114 U/L (15-37) Alanine Aminotransferase (ALT/SGPT) 133 U/L (12-78) Alkaline Phosphatase 461 U/L (46-116) C-Reactive Protein, Quantitative 18.1 mg/dL (0.00-0.90) Pro-B-Type Natriuretic Peptide > 95906 pg/mL (0-125) Total Protein 7.1 G/DL (6.4-8.2) Albumin 1.4 G/DL (3.4-5.0) Globulin 5.7 g/dL Albumin/Globulin Ratio 0.2 (1.0-2.7) Height (Feet): 5 Height (Inches): 8.00 Weight (Pounds): 143 Objective PHYSICAL EXAMINATION: VITAL SIGNS: reviewed HEAD AND NECK: Show status post tracheostomy. vent+ LUNGS: Coarse rhonchi and basilar rales. CARDIOVASCULAR: Shows irregular S1 and S2 with no gallop. ABDOMEN: Soft. Status post G-tube. EXTREMITIES: No pitting edema.++Left Jose Epperson MD Jul 04, 2020 07:23
[2020-07-04 08:00] VITALS: BP 122/71
[2020-07-04] MEDS: Ascorbic Acid 500mg tab GT SCH (09:46)
--- NOTE | 2020-07-04 10:22 | General Progress Note ---
Subjective Allergies: Coded Allergies: No Known Allergies (Unverified , 06/13/20) Subjective above noted stools liquid, in rectal tube brown tolerating TF LFT still elevated but slowly declining all liver serologic w/u except CMV PCR still pending Objective Last 24 Hour Vital Signs Date Time Temp Pulse Resp B/P (MAP) Pulse Ox O2 Delivery O2 Flow Rate FiO2 07/04/20 07:10 64 19 45 07/04/20 04:00 Mechanical Ventilator 07/04/20 04:00 45 07/04/20 04:00 96.9 97 19 121/74 (90) 96 07/04/20 03:37 67 07/04/20 03:15 68 20 45 07/04/20 01:00 68 23 96 Mechanical Ventilator 45 07/04/20 00:00 45 07/04/20 00:00 Mechanical Ventilator 07/04/20 00:00 96.4 70 19 128/74 (92) 96 07/03/20 23:30 70 07/03/20 23:17 70 21 45 07/03/20 20:00 Mechanical Ventilator 07/03/20 20:00 45 07/03/20 20:00 96.6 70 19 129/78 (95) 96 07/03/20 20:00 69 07/03/20 19:36 74 20 45 07/03/20 16:00 Mechanical Ventilator 07/03/20 16:00 68 07/03/20 16:00 45 07/03/20 16:00 97.0 68 18 127/77 (94) 96 07/03/20 15:24 70 23 45 07/03/20 12:00 Mechanical Ventilator 07/03/20 12:00 68 07/03/20 12:00 96.3 71 16 130/74 (92) 93 07/03/20 12:00 45 07/03/20 11:24 68 21 45 Intake and Output 07/03/20 07/04/20 19:00 07:00 Intake Total 560 ml 550 ml Output Total 130 ml Balance 430 ml 550 ml Free Water 60 ml 50 ml Tube Feeding 500 ml 500 ml Output Urine Total 100 ml Stool Total 30 ml Laboratory Tests 07/03/20 11:16: POC Whole Blood Glucose 128H 07/03/20 16:15: POC Whole Blood Glucose 110H 07/03/20 23:59: POC Whole Blood Glucose 164H 07/04/20 04:05: White Blood Count 14.1H, Red Blood Count 2.48L, Hemoglobin 7.4L, Hematocrit 21.9L, Mean Corpuscular Volume 88, Mean Corpuscular Hemoglobin 30.0, Mean Corpuscular Hemoglobin Concent 34.0, Red Cell Distribution Width 16.4H, Platelet Count 91L, Mean Platelet Volume 11.0H, Neutrophils (%) (Auto) , Lymphocytes (%) (Auto) , Monocytes (%) (Auto) , Eosinophils (%) (Auto) , Basophils (%) (Auto) , Differential Total Cells Counted 100, Neutrophils % (Manual) 78H, Lymphocytes % (Manual) 12L, Monocytes % (Manual) 5, Eosinophils % (Manual) 5H, Basophils % (Manual) 0, Band Neutrophils 0, Platelet Estimate DecreasedL, Platelet Morphology Normal, Hypochromasia 1+, Anisocytosis 1+, Sodium Level 131L, Potassium Level 5.4H, Chloride Level 98, Carbon Dioxide Level 32, Blood Urea Nitrogen 90H, Creatinine 5.2H, Estimat Glomerular Filtration Rate 14.2, Glucose Level 124H, Calcium Level 8.3L, Phosphorus Level 4.4, Magnesium Level 2.8H, Total Bilirubin 0.4, Gamma Glutamyl Transpeptidase 84, Aspartate Amino Transf (AST/SGOT) 114H, Alanine Aminotransferase (ALT/SGPT) 133H, Alkaline Phosphatase 461H, C-Reactive Protein, Quantitative 18.1H, Pro-B-Type Natriuretic Peptide > 47656W, Total Protein 7.1, Albumin 1.4L, Globulin 5.7, Albumin/Globulin Ratio 0.2L 07/04/20 06:11: POC Whole Blood Glucose 130H Height (Feet): 5 Height (Inches): 8.00 Weight (Pounds): 143 Objective Debilitated elderly man NCAT supple Coarse BS RRR abd sofft, flat, (+) GT s/p LLE BKA Assessment/Plan Status: progressing Assessment/Plan: Assessment Abnormal LFT - improving (s/p US, CT, HIDA) - ? infectious hepatitis - Hep A and B negative - ? vascular - ? meds - ? other Gross hematuria - improved Acute anemia, ? urinary losses, ? GI loss ? surgical loss declining platelet count Recommendations - f/u CMV PCR - Check MRCP - continue to hold seroquel - follow LFT and CBC - family to decide on a level of care plan - no plans for GI w/u, per family discussion - TF - Transfuse Fco Banerjee MD Jul 04, 2020 10:22
--- NOTE | 2020-07-04 10:32 | General Progress Note ---
Subjective ROS Limited/Unobtainable: Yes Allergies: Coded Allergies: No Known Allergies (Unverified , 06/13/20) Subjective events noted interval notes reviewed glucose values are stable Item Value Date Time Bedside Blood Glucose 130 mg/dl H 07/04/20 0600 Bedside Blood Glucose 166 mg/dl H 07/04/20 0001 Bedside Blood Glucose 110 mg/dl 07/03/20 1800 Bedside Blood Glucose 128 mg/dl H 07/03/20 1200 Bedside Blood Glucose 121 mg/dl H 07/03/20 0600 Objective Last 24 Hour Vital Signs Date Time Temp Pulse Resp B/P (MAP) Pulse Ox O2 Delivery O2 Flow Rate FiO2 07/04/20 07:10 64 19 45 07/04/20 04:00 Mechanical Ventilator 07/04/20 04:00 45 07/04/20 04:00 96.9 97 19 121/74 (90) 96 07/04/20 03:37 67 07/04/20 03:15 68 20 45 07/04/20 01:00 68 23 96 Mechanical Ventilator 45 07/04/20 00:00 45 07/04/20 00:00 Mechanical Ventilator 07/04/20 00:00 96.4 70 19 128/74 (92) 96 07/03/20 23:30 70 07/03/20 23:17 70 21 45 07/03/20 20:00 Mechanical Ventilator 07/03/20 20:00 45 07/03/20 20:00 96.6 70 19 129/78 (95) 96 07/03/20 20:00 69 07/03/20 19:36 74 20 45 07/03/20 16:00 Mechanical Ventilator 07/03/20 16:00 68 07/03/20 16:00 45 07/03/20 16:00 97.0 68 18 127/77 (94) 96 07/03/20 15:24 70 23 45 07/03/20 12:00 Mechanical Ventilator 07/03/20 12:00 68 07/03/20 12:00 96.3 71 16 130/74 (92) 93 07/03/20 12:00 45 07/03/20 11:24 68 21 45 Intake and Output 07/03/20 07/04/20 19:00 07:00 Intake Total 560 ml 550 ml Output Total 130 ml Balance 430 ml 550 ml Free Water 60 ml 50 ml Tube Feeding 500 ml 500 ml Output Urine Total 100 ml Stool Total 30 ml Laboratory Tests 07/03/20 11:16: POC Whole Blood Glucose 128H 07/03/20 16:15: POC Whole Blood Glucose 110H 07/03/20 23:59: POC Whole Blood Glucose 164H 07/04/20 04:05: White Blood Count 14.1H, Red Blood Count 2.48L, Hemoglobin 7.4L, Hematocrit 21.9L, Mean Corpuscular Volume 88, Mean Corpuscular Hemoglobin 30.0, Mean Corpuscular Hemoglobin Concent 34.0, Red Cell Distribution Width 16.4H, Platelet Count 91L, Mean Platelet Volume 11.0H, Neutrophils (%) (Auto) , Lymphocytes (%) (Auto) , Monocytes (%) (Auto) , Eosinophils (%) (Auto) , Basophils (%) (Auto) , Differential Total Cells Counted 100, Neutrophils % (Manual) 78H, Lymphocytes % (Manual) 12L, Monocytes % (Manual) 5, Eosinophils % (Manual) 5H, Basophils % (Manual) 0, Band Neutrophils 0, Platelet Estimate DecreasedL, Platelet Morphology Normal, Hypochromasia 1+, Anisocytosis 1+, Sodium Level 131L, Potassium Level 5.4H, Chloride Level 98, Carbon Dioxide Level 32, Blood Urea Nitrogen 90H, Creatinine 5.2H, Estimat Glomerular Filtration Rate 14.2, Glucose Level 124H, Calcium Level 8.3L, Phosphorus Level 4.4, Magnesium Level 2.8H, Total Bilirubin 0.4, Gamma Glutamyl Transpeptidase 84, Aspartate Amino Transf (AST/SGOT) 114H, Alanine Aminotransferase (ALT/SGPT) 133H, Alkaline Phosphatase 461H, C-Reactive Protein, Quantitative 18.1H, Pro-B-Type Natriuretic Peptide > 36678I, Total Protein 7.1, Albumin 1.4L, Globulin 5.7, Albumin/Globulin Ratio 0.2L 07/04/20 06:11: POC Whole Blood Glucose 130H Height (Feet): 5 Height (Inches): 8.00 Weight (Pounds): 143 General Appearance: no apparent distress Respiratory/Chest: decreased breath sounds Abdomen: normal bowel sounds Objective Current Medications Medications (Trade) Dose Ordered Sig/Maryjane Route PRN Reason Start Time Stop Time Status Last Admin Dose Admin Acetaminophen (Tylenol) 650 mg Q4H PRN GT Mild Pain (Pain Scale 1-3) 06/18/20 23:00 07/18/20 22:59 Acetaminophen (Tylenol) 650 mg Q4HR PRN GT FEVER 06/14/20 09:45 07/14/20 09:44 06/19/20 20:45 Aluminum Hydroxide (Amphojel) 1,920 mg Q6H GT 06/17/20 10:00 07/17/20 09:59 07/04/20 09:47 Ascorbic Acid (Vitamin C) 500 mg DAILY GT 07/01/20 09:00 07/31/20 08:59 07/04/20 09:46 Chlorhexidine Gluconate (Inés-Hex 2%) 1 applic DAILY@1999 TOPIC 06/21/20 20:00 09/19/20 19:59 07/03/20 20:21 Dextrose (Dextrose 50%) 25 ml Q30M PRN IV Hypoglycemia 06/28/20 18:30 09/26/20 18:29 Dextrose (Dextrose 50%) 50 ml Q30M PRN IV Hypoglycemia 06/28/20 18:30 09/26/20 18:29 Epoetin Bonilla (Epoetin Bonilla(ESRD on dialysis)) 10,000 unit TUE-TUE-TUE SUBQ 07/02/20 21:00 09/16/20 20:59 07/02/20 20:37 Haloperidol Lactate (Haldol) 5 mg Q6H PRN IM Agitation 06/21/20 23:15 08/05/20 23:14 06/25/20 18:17 Insulin Aspart (NovoLOG) EVERY 6 HOURS SUBQ 06/29/20 00:00 09/27/20 00:00 07/04/20 00:01 Lansoprazole (Prevacid) 30 mg Q12HR GT 06/30/20 21:00 07/30/20 20:59 07/04/20 09:46 Levothyroxine Sodium (Synthroid) 88 mcg DAILY@0630 GT 07/03/20 06:30 08/02/20 06:29 07/04/20 06:28 Vancomycin HCl ([facility] pharmacy to dose) 1 ea DAILY PRN MISC Per rx protocol 06/27/20 11:30 07/18/20 23:59 Assessment/Plan Problem List: (1) History of left below knee amputation ICD Codes: Z89.512 - Acquired absence of left leg below knee SNOMED: 609330743, [id number] (2) Surgical wound dehiscence ICD Codes: T81.31XA - Disruption of external operation (surgical) wound, not elsewhere classified, initial encounter SNOMED: 33089885 (3) Hyperkalemia ICD Codes: E87.5 - Hyperkalemia SNOMED: 22786111 (4) Acute respiratory failure ICD Codes: J96.00 - Acute respiratory failure, unspecified whether with hypoxia or hypercapnia SNOMED: 18550741 Qualifiers: Qualified Codes: J96.02 - Acute respiratory failure with hypercapnia (5) Hypothyroidism ICD Codes: E03.9 - Hypothyroidism, unspecified SNOMED: 53888913 (6) Hyperglycemia ICD Codes: R73.9 - Hyperglycemia, unspecified SNOMED: 54842890 Status: progressing Assessment/Plan: continue Levothyroxine 88 mcg daily repeat thyroid function in 1-2 weeks continue glucose monitoring Davy Ramos MD Jul 04, 2020 10:32
--- NOTE | 2020-07-04 10:33 | Nephrology Progress Note ---
Assessment/Plan Problem List: (1) KERRI (acute kidney injury) (2) Acute respiratory failure (3) Chronic respiratory failure (4) Anemia (5) Hyperkalemia Assessment Acute on chronic renal failure Anemia Respiratory failure acute on chronic Respiratory acidosis and hypoxia Hyperkalemia Plan July 04: Labs reviewed. Due for dialysis today. Continue to monitor electrolytes and hemoglobin hematocrit. Continue per consultants. July 03: Lab reviewed. Will defer dialysis for July 04. Some blood oozing from the catheter site. General surgery to be informed. Electrolytes stable. Continue as is. July 02: Labs reviewed. Due for dialysis tomorrow. Hemoglobin higher. Stable electrolytes. Continue per consultants. July 01: Labs reviewed. Dialyzed yesterday. Patient has a permacath. Continue per consultants. Worsening anemia noted, deferred to dairy technologist. June 30: Labs reviewed. Due for dialysis today. Patient appears to be needing hemodialysis for sometimes incoming future. Will arrange for placement of a tunneled catheter. Continue per consultants. Anemia management per dairy technologist. June 29: Labs reviewed. Hemoglobin is higher. Next hemodialysis tomorrow June 30. Continue per consultants. June 28: Labs reviewed. Last dialyzed June 26. Hemoglobin remains low. Defer transfusion and work-up to dairy technologist. Continue to follow-up renal parameters. June 27: Labs reviewed. Dialyzed yesterday. Hemoglobin low. Due for transfusion. Continue to monitor renal parameters and hemoglobin and hematocrit. June 26: Labs reviewed. Due for dialysis today. Continue per consultants. Continue to monitor liver enzymes. June 25: Labs reviewed. Will dialyze tomorrow. Continue per consultants. Check liver function enzymes. June 24: Dialyzed yesterday. Labs reviewed. Medication list reviewed. Liver enzymes remains elevated. Continue to monitor electrolytes renal parameters and LFTs. Hemodialysis in a.m. if needed. June 23: Patient will be dialyzed today again. Labs reviewed. Serum creatinine higher. Elevated liver enzymes persist. Patient full code. Continue per consultants. June 22: Patient dialyzed yesterday. Labs reviewed. Liver function tests and enzymes are elevated. Continue to monitor renal parameters and LFTs. Continue per consultants. Patient full code. June 21: Patient due for dialysis today. Labs and medication list reviewed. Discussed with RN. Continue to monitor renal parameters. June 20: Patient had an episode of bradycardia last night. Serum creatinine rising. Patient continues to have respiratory acidosis. Discussed with MAX Bond. Will order non tunneled dialysis catheter placement for initiation of dialysis treatment due to acute renal failure. Patient remains full code. I favor comfort care if bioethics consultation is sought and physicians on the team agreeable. June 19: No CHEM panel today. Low hemoglobin as of yesterday's lab results. Anemia management per Dr. Cueva. Continue to monitor renal parameters. June 18: Labs are reviewed. Hemoglobin lower. Creatinine higher. ABG not done yet. Patient full code. Continue per consultants. June 17: Labs reviewed. Hemoglobin low. Creatinine up to 3. Phosphorus levels elevated. Will start Amphojel via GT tube as a phosphorus binder. Monit or renal parameters. Check ABG. Continue per consultants. June 16: Labs reviewed. Serum creatinine mariana to 2.6. Abnormal electrolytes now normalized. Continue to monitor renal parameters and avoid nephrotoxic's. Continue to adjust pulmonary status as possible. June 15: ABG pH of 7.1. 2D echo suggestive of ejection fraction of 50%. Labs reviewed. Serum creatinine mariana. Will hold IV Lasix. Will give Kayexalate for high potassium and 1 amp of sodium bicarb. Albumin IV bolus given. Continue per consultants. Continue to monitor renal parameters. Kidney ultrasound ordered. June 14: As follow Pulmonary evaluation Sparrow catheter Hold IV fluid IV fluid, until 2D echo results available Kayexalate for high potassium IV Protonix 2D echocardiogram Anemia work-up More labs ordered Subjective ROS Limited/Unobtainable: Yes Objective Objective Last 24 Hour Vital Signs Date Time Temp Pulse Resp B/P (MAP) Pulse Ox O2 Delivery O2 Flow Rate FiO2 07/04/20 07:10 64 19 45 07/04/20 04:00 Mechanical Ventilator 07/04/20 04:00 45 07/04/20 04:00 96.9 97 19 121/74 (90) 96 07/04/20 03:37 67 07/04/20 03:15 68 20 45 07/04/20 01:00 68 23 96 Mechanical Ventilator 45 07/04/20 00:00 45 07/04/20 00:00 Mechanical Ventilator 07/04/20 00:00 96.4 70 19 128/74 (92) 96 07/03/20 23:30 70 07/03/20 23:17 70 21 45 07/03/20 20:00 Mechanical Ventilator 07/03/20 20:00 45 07/03/20 20:00 96.6 70 19 129/78 (95) 96 07/03/20 20:00 69 07/03/20 19:36 74 20 45 07/03/20 16:00 Mechanical Ventilator 07/03/20 16:00 68 07/03/20 16:00 45 07/03/20 16:00 97.0 68 18 127/77 (94) 96 07/03/20 15:24 70 23 45 07/03/20 12:00 Mechanical Ventilator 07/03/20 12:00 68 07/03/20 12:00 96.3 71 16 130/74 (92) 93 07/03/20 12:00 45 07/03/20 11:24 68 21 45 Intake and Output 07/03/20 07/04/20 19:00 07:00 Intake Total 560 ml 550 ml Output Total 130 ml Balance 430 ml 550 ml Free Water 60 ml 50 ml Tube Feeding 500 ml 500 ml Output Urine Total 100 ml Stool Total 30 ml Current Medications Medications (Trade) Dose Ordered Sig/Maryjane Route PRN Reason Start Time Stop Time Status Last Admin Dose Admin Acetaminophen (Tylenol) 650 mg Q4H PRN GT Mild Pain (Pain Scale 1-3) 06/18/20 23:00 07/18/20 22:59 Acetaminophen (Tylenol) 650 mg Q4HR PRN GT FEVER 06/14/20 09:45 07/14/20 09:44 06/19/20 20:45 Aluminum Hydroxide (Amphojel) 1,920 mg Q6H GT 06/17/20 10:00 07/17/20 09:59 07/04/20 09:47 Ascorbic Acid (Vitamin C) 500 mg DAILY GT 07/01/20 09:00 07/31/20 08:59 07/04/20 09:46 Chlorhexidine Gluconate (Inés-Hex 2%) 1 applic DAILY@1999 TOPIC 06/21/20 20:00 09/19/20 19:59 07/03/20 20:21 Dextrose (Dextrose 50%) 25 ml Q30M PRN IV Hypoglycemia 06/28/20 18:30 09/26/20 18:29 Dextrose (Dextrose 50%) 50 ml Q30M PRN IV Hypoglycemia 06/28/20 18:30 09/26/20 18:29 Epoetin Bonilla (Epoetin Bonilla(ESRD on dialysis)) 10,000 unit TUE-TUE-TUE SUBQ 07/02/20 21:00 09/16/20 20:59 07/02/20 20:37 Haloperidol Lactate (Haldol) 5 mg Q6H PRN IM Agitation 06/21/20 23:15 08/05/20 23:14 06/25/20 18:17 Insulin Aspart (NovoLOG) EVERY 6 HOURS SUBQ 06/29/20 00:00 09/27/20 00:00 07/04/20 00:01 Lansoprazole (Prevacid) 30 mg Q12HR GT 06/30/20 21:00 07/30/20 20:59 07/04/20 09:46 Levothyroxine Sodium (Synthroid) 88 mcg DAILY@0630 GT 07/03/20 06:30 08/02/20 06:29 07/04/20 06:28 Vancomycin HCl ([facility] pharmacy to dose) 1 ea DAILY PRN MISC Per rx protocol 06/27/20 11:30 07/18/20 23:59 Laboratory Tests 07/03/20 11:16: POC Whole Blood Glucose 128H 07/03/20 16:15: POC Whole Blood Glucose 110H 07/03/20 23:59: POC Whole Blood Glucose 164H 07/04/20 04:05: White Blood Count 14.1H, Red Blood Count 2.48L, Hemoglobin 7.4L, Hematocrit 21.9L, Mean Corpuscular Volume 88, Mean Corpuscular Hemoglobin 30.0, Mean Corpuscular Hemoglobin Concent 34.0, Red Cell Distribution Width 16.4H, Platelet Count 91L, Mean Platelet Volume 11.0H, Neutrophils (%) (Auto) , Lymphocytes (%) (Auto) , Monocytes (%) (Auto) , Eosinophils (%) (Auto) , Basophils (%) (Auto) , Differential Total Cells Counted 100, Neutrophils % (Manual) 78H, Lymphocytes % (Manual) 12L, Monocytes % (Manual) 5, Eosinophils % (Manual) 5H, Basophils % (Manual) 0, Band Neutrophils 0, Platelet Estimate DecreasedL, Platelet Morphology Normal, Hypochromasia 1+, Anisocytosis 1+, Sodium Level 131L, Potassium Level 5.4H, Chloride Level 98, Carbon Dioxide Level 32, Blood Urea Nitrogen 90H, Creatinine 5.2H, Estimat Glomerular Filtration Rate 14.2, Glucose Level 124H, Calcium Level 8.3L, Phosphorus Level 4.4, Magnesium Level 2.8H, Total Bilirubin 0.4, Gamma Glutamyl Transpeptidase 84, Aspartate Amino Transf (AST/SGOT) 114H, Alanine Aminotransferase (ALT/SGPT) 133H, Alkaline Phosphatase 461H, C-Reactive Protein, Quantitative 18.1H, Pro-B-Type Natriuretic Peptide > 48639J, Total Protein 7.1, Albumin 1.4L, Globulin 5.7, Albumin/Globulin Ratio 0.2L 07/04/20 06:11: POC Whole Blood Glucose 130H Height (Feet): 5 Height (Inches): 8.00 Weight (Pounds): 143 General Appearance: no apparent distress EENT: other - Trach to vent Cardiovascular: normal rate Respiratory/Chest: decreased breath sounds Abdomen: distended Leonidas Honeycutt MD Jul 04, 2020 10:33
--- NOTE | 2020-07-04 11:00 | NUR ---
Hgb 7.4. Dr Díaz and Dr. Mcguire aware. Will continue to monitor pt.
--- NOTE | 2020-07-04 11:26 | NUR ---
CASE MANAGEMENT:REVIEW SI;RESP FAILURE TRACH/VENT DEPENDENT. SEPSIS,ANEMIA WOUND DEHISCENCE. HYPERKALEMIA. 96.9 97 23 128/74 96%TRACH/VENT AC 16 TV 500 PEEP 5 FIO2 45% WBC 14.1 H/H 7.4/21.9 NA 131 K+ 5.4 BUN 90 CR 5.2 ALB 1.4 BG 124 MAG 2.8 AST 114 ALT 133 ALP 461 CRP 18.1 BNP >65448 IS;PREVACID GT Q12 SYNTHROID GT QD VIT C GT QD EPOETIN ALEXX SQ M/W/F KALYN STATUS DCP;FROM [facility]; INPATIENT HD
--- NOTE | 2020-07-04 11:40 | Infectious Diseases Prog Note ---
"Assessment/Plan Assessment/Plan antibiotics : vancomycin iv A 1. sacral osteomyelitis 2. diabetes mellitus 3. hypertension 4. pseudomonas | stenotrophomonas pneumonia s/p rx 5. s/p left BKA 6. renal failure P 1. continue iv vancomycin until 07.18.20 2. will follow up cultures Subjective ROS Limited/Unobtainable: Yes Allergies: Coded Allergies: No Known Allergies (Unverified , 06/13/20) Objective Last 24 Hour Vital Signs Date Time Temp Pulse Resp B/P (MAP) Pulse Ox O2 Delivery O2 Flow Rate FiO2 07/04/20 08:00 97.0 62 20 122/71 (88) 99 07/04/20 07:10 64 19 45 07/04/20 04:00 Mechanical Ventilator 07/04/20 04:00 45 07/04/20 04:00 96.9 97 19 121/74 (90) 96 07/04/20 03:37 67 07/04/20 03:15 68 20 45 07/04/20 01:00 68 23 96 Mechanical Ventilator 45 07/04/20 00:00 45 07/04/20 00:00 Mechanical Ventilator 07/04/20 00:00 96.4 70 19 128/74 (92) 96 07/03/20 23:30 70 07/03/20 23:17 70 21 45 07/03/20 20:00 Mechanical Ventilator 07/03/20 20:00 45 07/03/20 20:00 96.6 70 19 129/78 (95) 96 07/03/20 20:00 69 07/03/20 19:36 74 20 45 07/03/20 16:00 Mechanical Ventilator 07/03/20 16:00 68 07/03/20 16:00 45 07/03/20 16:00 97.0 68 18 127/77 (94) 96 07/03/20 15:24 70 23 45 07/03/20 12:00 Mechanical Ventilator 07/03/20 12:00 68 07/03/20 12:00 96.3 71 16 130/74 (92) 93 07/03/20 12:00 45 Height (Feet): 5 Height (Inches): 8.00 Weight (Pounds): 143 HEENT: status post trach Respiratory/Chest: lungs clear Cardiovascular: normal rate, regular rhythm, no gallop/murmur Abdomen: soft, non tender, other - GT Extremities: no edema, other - left stump clean Laboratory Tests Test 07/03/20 16:15 07/03/20 23:59 07/04/20 04:05 07/04/20 06:11 POC Whole Blood Glucose 110 MG/DL (74-106) H 164 MG/DL (74-106) H 130 MG/DL (74-106) H White Blood Count 14.1 K/UL (4.8-10.8) H Red Blood Count 2.48 M/UL (4.70-6.10) L Hemoglobin 7.4 G/DL (14.2-18.0) L Hematocrit 21.9 % (42.0-52.0) L Mean Corpuscular Volume 88 FL (80-99) Mean Corpuscular Hemoglobin 30.0 PG (27.0-31.0) Mean Corpuscular Hemoglobin Concent 34.0 G/DL (32.0-36.0) Red Cell Distribution Width 16.4 % (11.6-14.8) H Platelet Count 91 K/UL (150-450) L Mean Platelet Volume 11.0 FL (6.5-10.1) H Neutrophils (%) (Auto) % (45.0-75.0) Lymphocytes (%) (Auto) % (20.0-45.0) Monocytes (%) (Auto) % (1.0-10.0) Eosinophils (%) (Auto) % (0.0-3.0) Basophils (%) (Auto) % (0.0-2.0) Differential Total Cells Counted 100 Neutrophils % (Manual) 78 % (45-75) H Lymphocytes % (Manual) 12 % (20-45) L Monocytes % (Manual) 5 % (1-10) Eosinophils % (Manual) 5 % (0-3) H Basophils % (Manual) 0 % (0-2) Band Neutrophils 0 % (0-8) Platelet Estimate Decreased L Platelet Morphology Normal Hypochromasia 1+ Anisocytosis 1+ Sodium Level 131 MMOL/L (136-145) L Potassium Level 5.4 MMOL/L (3.5-5.1) H Chloride Level 98 MMOL/L (98-107) Carbon Dioxide Level 32 MMOL/L (21-32) Blood Urea Nitrogen 90 mg/dL (7-18) H Creatinine 5.2 MG/DL (0.55-1.30) H Estimat Glomerular Filtration Rate 14.2 mL/min (>60) Glucose Level 124 MG/DL (74-106) H Calcium Level 8.3 MG/DL (8.5-10.1) L Phosphorus Level 4.4 MG/DL (2.5-4.9) Magnesium Level 2.8 MG/DL (1.8-2.4) H Total Bilirubin 0.4 MG/DL (0.2-1.0) Gamma Glutamyl Transpeptidase 84 U/L (5-85) Aspartate Amino Transf (AST/SGOT) 114 U/L (15-37) H Alanine Aminotransferase (ALT/SGPT) 133 U/L (12-78) H Alkaline Phosphatase 461 U/L (46-116) H C-Reactive Protein, Quantitative 18.1 mg/dL (0.00-0.90) H Pro-B-Type Natriuretic Peptide > 39429 pg/mL (0-125) H Total Protein 7.1 G/DL (6.4-8.2) Albumin 1.4 G/DL (3.4-5.0) L Globulin 5.7 g/dL Albumin/Globulin Ratio 0.2 (1.0-2.7) L Current Medications Medications (Trade) Dose Ordered Sig/Maryjane Route PRN Reason Start Time Stop Time Status Last Admin Dose Admin Acetaminophen (Tylenol) 650 mg Q4H PRN GT Mild Pain (Pain Scale 1-3) 06/18/20 23:00 07/18/20 22:59 Acetaminophen (Tylenol) 650 mg Q4HR PRN GT FEVER 06/14/20 09:45 07/14/20 09:44 06/19/20 20:45 Aluminum Hydroxide (Amphojel) 1,920 mg Q6H GT 06/17/20 10:00 07/17/20 09:59 07/04/20 09:47 Ascorbic Acid (Vitamin C) 500 mg DAILY GT 07/01/20 09:00 07/31/20 08:59 07/04/20 09:46 Chlorhexidine Gluconate (Inés-Hex 2%) 1 applic DAILY@1999 TOPIC 06/21/20 20:00 09/19/20 19:59 07/03/20 20:21 Dextrose (Dextrose 50%) 25 ml Q30M PRN IV Hypoglycemia 06/28/20 18:30 09/26/20 18:29 Dextrose (Dextrose 50%) 50 ml Q30M PRN IV Hypoglycemia 06/28/20 18:30 09/26/20 18:29 Epoetin Bonilla (Epoetin Bonilla(ESRD on dialysis)) 10,000 unit TUE-TUE-TUE SUBQ 07/02/20 21:00 09/16/20 20:59 07/02/20 20:37 Haloperidol Lactate (Haldol) 5 mg Q6H PRN IM Agitation 06/21/20 23:15 08/05/20 23:14 06/25/20 18:17 Insulin Aspart (NovoLOG) EVERY 6 HOURS SUBQ 06/29/20 00:00 09/27/20 00:00 07/04/20 00:01 Lansoprazole (Prevacid) 30 mg Q12HR GT 06/30/20 21:00 07/30/20 20:59 07/04/20 09:46 Levothyroxine Sodium (Synthroid) 88 mcg DAILY@0630 GT 07/03/20 06:30 08/02/20 06:29 07/04/20 06:28 Vancomycin HCl ([facility] pharmacy to dose) 1 ea DAILY PRN MISC Per rx protocol 06/27/20 11:30 07/18/20 23:59 Jonny Hall MD Jul 04, 2020 11:40"
--- NOTE | 2020-07-04 11:47 | Cardiac Electrophysiology PN ---
Assessment/Plan Assessment/Plan 1. Vent-dependent respirator failure. S/P tracheostomy. On 50% Fio2 Chest x-ray extensive bilateral pneumonia or ARDS. Off isolation EF 50%. Ruled out for MD. BNP [id number]. On iv Abx 2. Sinus Tachycardia, likely due to respiratory failure and sepsis 3. Right femoral vein DVT. S/P IVC filter 06/18 4. Dysphagia, status post PEG placement. 5. Renal failure. S/P Right IJ Iron and on HD by Dr. Honeycutt. Next HD tomorrow 6. Severe anemia, S/P multiple PRBCs for hematuria 7. High LFTs, s/p CT abdomen and pelvis and HIDA FU Dr Stringer 8. Transient bradycardia, resolved DW RN and Dr Honeycutt Subjective Subjective On the Vent off isolation. On 40% Fio2 and PEEP 5. 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 at 4 am 06/25/20 Got PRBC 06/27 and 06/28 as Hb dropped to 5.6 likley due to hematuria Opens eyes in restraints in NAD Hb down to 6.6 and got 2 units of PRBC Right IJ small oozing better Objective Last 24 Hour Vital Signs Date Time Temp Pulse Resp B/P (MAP) Pulse Ox O2 Delivery O2 Flow Rate FiO2 07/04/20 11:10 61 20 45 07/04/20 08:00 97.0 62 20 122/71 (88) 99 07/04/20 07:10 64 19 45 07/04/20 04:00 Mechanical Ventilator 07/04/20 04:00 45 07/04/20 04:00 96.9 97 19 121/74 (90) 96 07/04/20 03:37 67 07/04/20 03:15 68 20 45 07/04/20 01:00 68 23 96 Mechanical Ventilator 45 07/04/20 00:00 45 07/04/20 00:00 Mechanical Ventilator 07/04/20 00:00 96.4 70 19 128/74 (92) 96 07/03/20 23:30 70 07/03/20 23:17 70 21 45 07/03/20 20:00 Mechanical Ventilator 07/03/20 20:00 45 07/03/20 20:00 96.6 70 19 129/78 (95) 96 07/03/20 20:00 69 07/03/20 19:36 74 20 45 07/03/20 16:00 Mechanical Ventilator 07/03/20 16:00 68 07/03/20 16:00 45 07/03/20 16:00 97.0 68 18 127/77 (94) 96 07/03/20 15:24 70 23 45 07/03/20 12:00 Mechanical Ventilator 07/03/20 12:00 68 07/03/20 12:00 96.3 71 16 130/74 (92) 93 07/03/20 12:00 45 Intake and Output 07/03/20 07/04/20 19:00 07:00 Intake Total 560 ml 550 ml Output Total 130 ml Balance 430 ml 550 ml Free Water 60 ml 50 ml Tube Feeding 500 ml 500 ml Output Urine Total 100 ml Stool Total 30 ml Laboratory Tests Test 07/03/20 16:15 07/03/20 23:59 07/04/20 04:05 07/04/20 06:11 POC Whole Blood Glucose 110 MG/DL (74-106) H 164 MG/DL (74-106) H 130 MG/DL (74-106) H White Blood Count 14.1 K/UL (4.8-10.8) H Red Blood Count 2.48 M/UL (4.70-6.10) L Hemoglobin 7.4 G/DL (14.2-18.0) L Hematocrit 21.9 % (42.0-52.0) L Mean Corpuscular Volume 88 FL (80-99) Mean Corpuscular Hemoglobin 30.0 PG (27.0-31.0) Mean Corpuscular Hemoglobin Concent 34.0 G/DL (32.0-36.0) Red Cell Distribution Width 16.4 % (11.6-14.8) H Platelet Count 91 K/UL (150-450) L Mean Platelet Volume 11.0 FL (6.5-10.1) H Neutrophils (%) (Auto) % (45.0-75.0) Lymphocytes (%) (Auto) % (20.0-45.0) Monocytes (%) (Auto) % (1.0-10.0) Eosinophils (%) (Auto) % (0.0-3.0) Basophils (%) (Auto) % (0.0-2.0) Differential Total Cells Counted 100 Neutrophils % (Manual) 78 % (45-75) H Lymphocytes % (Manual) 12 % (20-45) L Monocytes % (Manual) 5 % (1-10) Eosinophils % (Manual) 5 % (0-3) H Basophils % (Manual) 0 % (0-2) Band Neutrophils 0 % (0-8) Platelet Estimate Decreased L Platelet Morphology Normal Hypochromasia 1+ Anisocytosis 1+ Sodium Level 131 MMOL/L (136-145) L Potassium Level 5.4 MMOL/L (3.5-5.1) H Chloride Level 98 MMOL/L (98-107) Carbon Dioxide Level 32 MMOL/L (21-32) Blood Urea Nitrogen 90 mg/dL (7-18) H Creatinine 5.2 MG/DL (0.55-1.30) H Estimat Glomerular Filtration Rate 14.2 mL/min (>60) Glucose Level 124 MG/DL (74-106) H Calcium Level 8.3 MG/DL (8.5-10.1) L Phosphorus Level 4.4 MG/DL (2.5-4.9) Magnesium Level 2.8 MG/DL (1.8-2.4) H Total Bilirubin 0.4 MG/DL (0.2-1.0) Gamma Glutamyl Transpeptidase 84 U/L (5-85) Aspartate Amino Transf (AST/SGOT) 114 U/L (15-37) H Alanine Aminotransferase (ALT/SGPT) 133 U/L (12-78) H Alkaline Phosphatase 461 U/L (46-116) H C-Reactive Protein, Quantitative 18.1 mg/dL (0.00-0.90) H Pro-B-Type Natriuretic Peptide > 29382 pg/mL (0-125) H Total Protein 7.1 G/DL (6.4-8.2) Albumin 1.4 G/DL (3.4-5.0) L Globulin 5.7 g/dL Albumin/Globulin Ratio 0.2 (1.0-2.7) L Objective HEAD AND NECK: Status post tracheostomy. Right IJ Iron in place LUNGS: Coarse rhonchi and basilar rales. CARDIOVASCULAR: Irregular S1 and S2 with no gallop. ABDOMEN: Soft. Status post G-tube. EXTREMITIES: No pitting edema. Lance Mcguire MD Jul 04, 2020 11:47
[2020-07-04 12:00] VITALS: BP 121/75
--- NOTE | 2020-07-04 12:00 | NUR ---
NURSE NOTES: RT took ABG with the following results: pH 7.208, pCO2 75.8, pO2 84.7, HCO2 29.5. Angelika Hummel CERTIFIED LOW VISION THERAPIST informed of the result. She rounded bedside. Will continue to monitor pt.
--- NOTE | 2020-07-04 14:00 | NUR ---
NURSE NOTES: Sponge bath given. Pressure ulcer in sacral, buttocks are cleaned and dressed. Pt is tolerating, vitals remain stable. Will continue to monitor pt.
--- NOTE | 2020-07-04 14:01 | Surgery Progress Note ---
Surgery Progress Note Subjective Additional Comments no active bleeding no n/v labs noted exam stable dressings going well Objective Last 24 Hour Vital Signs Date Time Temp Pulse Resp B/P (MAP) Pulse Ox O2 Delivery O2 Flow Rate FiO2 07/04/20 12:00 96.7 63 18 121/75 (90) 99 07/04/20 12:00 Mechanical Ventilator 07/04/20 12:00 45 07/04/20 11:10 61 20 45 07/04/20 08:00 Mechanical Ventilator 07/04/20 08:00 65 07/04/20 08:00 97.0 62 20 122/71 (88) 99 07/04/20 08:00 45 07/04/20 07:10 64 19 45 07/04/20 04:00 Mechanical Ventilator 07/04/20 04:00 45 07/04/20 04:00 96.9 97 19 121/74 (90) 96 07/04/20 03:37 67 07/04/20 03:15 68 20 45 07/04/20 01:00 68 23 96 Mechanical Ventilator 45 07/04/20 00:00 45 07/04/20 00:00 Mechanical Ventilator 07/04/20 00:00 96.4 70 19 128/74 (92) 96 07/03/20 23:30 70 07/03/20 23:17 70 21 45 07/03/20 20:00 Mechanical Ventilator 07/03/20 20:00 45 07/03/20 20:00 96.6 70 19 129/78 (95) 96 07/03/20 20:00 69 07/03/20 19:36 74 20 45 07/03/20 16:00 Mechanical Ventilator 07/03/20 16:00 68 07/03/20 16:00 45 07/03/20 16:00 97.0 68 18 127/77 (94) 96 07/03/20 15:24 70 23 45 I&O Intake and Output 07/03/20 07/04/20 19:00 07:00 Intake Total 560 ml 550 ml Output Total 130 ml Balance 430 ml 550 ml Free Water 60 ml 50 ml Tube Feeding 500 ml 500 ml Output Urine Total 100 ml Stool Total 30 ml Dressing: saturated Cardiovascular: RSR Respiratory: decreased breath sounds Abdomen: soft, non-tender, present bowel sounds Extremities: no tenderness, no cyanosis Laboratory Tests Test 07/03/20 16:15 07/03/20 23:59 07/04/20 04:05 07/04/20 06:11 POC Whole Blood Glucose 110 MG/DL (74-106) H 164 MG/DL (74-106) H 130 MG/DL (74-106) H White Blood Count 14.1 K/UL (4.8-10.8) H Red Blood Count 2.48 M/UL (4.70-6.10) L Hemoglobin 7.4 G/DL (14.2-18.0) L Hematocrit 21.9 % (42.0-52.0) L Mean Corpuscular Volume 88 FL (80-99) Mean Corpuscular Hemoglobin 30.0 PG (27.0-31.0) Mean Corpuscular Hemoglobin Concent 34.0 G/DL (32.0-36.0) Red Cell Distribution Width 16.4 % (11.6-14.8) H Platelet Count 91 K/UL (150-450) L Mean Platelet Volume 11.0 FL (6.5-10.1) H Neutrophils (%) (Auto) % (45.0-75.0) Lymphocytes (%) (Auto) % (20.0-45.0) Monocytes (%) (Auto) % (1.0-10.0) Eosinophils (%) (Auto) % (0.0-3.0) Basophils (%) (Auto) % (0.0-2.0) Differential Total Cells Counted 100 Neutrophils % (Manual) 78 % (45-75) H Lymphocytes % (Manual) 12 % (20-45) L Monocytes % (Manual) 5 % (1-10) Eosinophils % (Manual) 5 % (0-3) H Basophils % (Manual) 0 % (0-2) Band Neutrophils 0 % (0-8) Platelet Estimate Decreased L Platelet Morphology Normal Hypochromasia 1+ Anisocytosis 1+ Sodium Level 131 MMOL/L (136-145) L Potassium Level 5.4 MMOL/L (3.5-5.1) H Chloride Level 98 MMOL/L (98-107) Carbon Dioxide Level 32 MMOL/L (21-32) Blood Urea Nitrogen 90 mg/dL (7-18) H Creatinine 5.2 MG/DL (0.55-1.30) H Estimat Glomerular Filtration Rate 14.2 mL/min (>60) Glucose Level 124 MG/DL (74-106) H Calcium Level 8.3 MG/DL (8.5-10.1) L Phosphorus Level 4.4 MG/DL (2.5-4.9) Magnesium Level 2.8 MG/DL (1.8-2.4) H Total Bilirubin 0.4 MG/DL (0.2-1.0) Gamma Glutamyl Transpeptidase 84 U/L (5-85) Aspartate Amino Transf (AST/SGOT) 114 U/L (15-37) H Alanine Aminotransferase (ALT/SGPT) 133 U/L (12-78) H Alkaline Phosphatase 461 U/L (46-116) H C-Reactive Protein, Quantitative 18.1 mg/dL (0.00-0.90) H Pro-B-Type Natriuretic Peptide > 62667 pg/mL (0-125) H Total Protein 7.1 G/DL (6.4-8.2) Albumin 1.4 G/DL (3.4-5.0) L Globulin 5.7 g/dL Albumin/Globulin Ratio 0.2 (1.0-2.7) L Test 07/04/20 12:05 07/04/20 12:19 POC Whole Blood Glucose 78 MG/DL (74-106) 89 MG/DL (74-106) Plan Problems: (1) Leukocytosis Assessment & Plan: 54-year-old male multiple comorbidities admitted for abnormal chest x-ray potentially pneumonia leukocytosis abnormal labs. Patient identified to have a prior left BKA surgical sutures still in place as well as a surgical sacral wound with sutures in place. Considerations of dehiscence being identified and potential etiology of infection. After evaluation unlikely source of infection though the sacral wound was looked to be dehiscing at the inferior aspect. No acute surgical mention at this time We will discussed care plan with PCP Recommend follow-up with initial surgeon considerations of removal of surgical sutures Care plan initiated worsening lft's US ordered ? shayla monitor for bleeding from right chest wall cath change dressings Extensive airspace consolidations at the lung bases consistent with severe multifocal infiltrate. Associated, large bilateral pleural effusions. Evaluation of the abdominal viscera is markedly suboptimal due to poor CT technique and lack of intravenous contrast. No definite hepatic lesion. No definite cholelithiasis. Mild colon wall thickening. The spleen, pancreas, and adrenal glands are not visualized well enough reliable assessment. No definite hydronephrosis. The kidneys are hyperdense, correlate for medical renal disease. No nephrolithiasis. Sparrow catheter within a decompressed urinary bladder. Moderate diverticulosis, without acute diverticulitis. No small bowel obstruction. PEG tube presumably within the stomach. Atherosclerotic calcifications of the aorta. Low-attenuation of the intravascular blood pool, correlate for anemia. IVC filter, incidentally noted. Air within the subcutaneous fat overlying the sacrum with skin thickening, correlate with physical exam for sacral decubitus ulcer. Degenerative changes of the spine. Bilateral pars defects at L5 without anterolisthesis of L5 on S1. IMPRESSION: Extensive airspace consolidations at the lung bases consistent with severe multifocal infiltrate. Associated, large bilateral pleural effusions. Evaluation of the abdominal viscera is markedly suboptimal due to poor CT technique and lack of intravenous contrast. Moderate diverticulosis, without acute diverticulitis. No small bowel obstruction. PEG tube presumably within the stomach. Note, if there is suspicion for colitis consider repeat scan with improved CT technique/intravenous contrast. Mild gallbladder wall thickening without definite evidence of cholelithiasis. Air within the subcutaneous fat overlying the sacrum with skin thickening, correlate with physical exam for sacral decubitus ulcer. Bilateral pars defects at L5. The kidneys are hyperdense, correlate for medical renal disease.. There is prompt uptake within the liver with washout of radiotracer from the liver on subsequent imaging. There is excretion into the biliary ducts. Gallbladder activity is present in a timely fashion indicating patency of the cystic duct. Very scant bowel activity is demonstrated concerning for common bile duct obstruction or sphincter dysfunction. IMPRESSION: No evidence to suggest cholecystitis. Gallbladder activity is present in a timely fashion indicating patency of the cystic duct. Very little radiotracer noted in the small bowel. Correlate with LFTs as a degree of common bile duct obstruction or sphincter dysfunction not excluded. Consider further evaluation with MRCP. (2) Surgical wound dehiscence Assessment & Plan: Patient identified to have a left BKA surgical sutures in place flap looks like it is taken well no signs of infection at this time no signs of seroma hematoma or drainage. Unknown exact length or duration of potential prior left BKA and until then recommend leaving sutures in place as it may be too early though it does look well-healed. If able to obtain prior records we will be happy to remove sutures otherwise will need follow-up with primary surgeon furthermore patient identified to have a surgical wound in the sacral area seems he probably potentially had a stage IV sacral decubitus ulcer that had debridement and primary closure. Fortunately. Sutures are still in place and it looks like the inferior aspect may be slowly dehiscing. There is no significant drainage no foul odor no signs of active infection unknown if bone was palpable prior. Can consider removing surgical sutures but again would recommend obtaining prior records of possible prior to doing so. Also recommend following up with primary surgeon as this may need ongoing continued care. Will follow with recommendations and as information is available. Continue current care plan. Wash wounds daily with normal saline. Apply skin protectant Optifoam dressing. Turn every 2 hours. Offload pressure with pillows and air mattress. Nutritional optimization. Worsening leukocytosis. Patient continues to have dehiscence of the prior primarily closed sacral decubitus ulcer. The sutures are was nearly torn out and the wound is opening and saturating with stool with bowel movements now has rectal tube. Unfortunately I see significant concern given dehiscence and therefore sutures were cut at the bedside and wound immediately opened under some tension. Underlying Vicryl sutures identified. There is some backbleeding some granulation tissue but definitely no take or closure of the stage IV sacral decubitus ulcer that was identified. Nonexcisional debridement done with gauze and jorge layer of slough and biofilm was removed wound was cleaned packing dressings applied. No abscess no purulent drainage unlikely etiology of infection. (3) History of left below knee amputation (4) Malnutrition Assessment & Plan: DAILY ESTIMATED NEEDS: Needs based on Wound, critical care, underweight/ 55.5kg 25-33 (25-35 w/ HD) kcals/kg 4387-4456 (1338-0003) total kcals 1.25-2 g protein/kg 69-111 g total protein 25-30 mL/kg 3368-8014 total fluid mLs NUTRITION DIAGNOSIS: * Swallowing difficulty R/T respiratory status as evidenced by pt is trach/vent dep, PEG dep. CURRENT TF: Nepro @ 40ml/hr x24 hrs ENTERAL NUTRITION RECOMMENDATIONS: Nepro @ 40ml/hr x 24 hrs to provide 960ml, 1728kcal, 78g prot, 698ml free water * Maintain current TF * HOB over 30 degrees/ water flush per MD ADDITIONAL RECOMMENDATIONS: * Per SNF: HT=69" YV=[id number] -> rec daily calibrated bedscale wt * Monitor lytes: elev K-> now wnl, phos now low * Wound healing: RANDY BID + Nephrovite 1 tab qdaily * Monitor for bm, last bm 06/19, now 06/24 * W/ HD rec to add Prosource 1 pack qdaily for added 11g pro/day. (5) Anemia (6) KERRI (acute kidney injury) (7) Acute respiratory failure (8) Hyperkalemia (9) Anemia (10) Abnormal laboratory test result (11) Chronic respiratory failure (12) Hyperglycemia (13) Hypothyroidism Azar Mares Jul 04, 2020 14:01
--- NOTE | 2020-07-04 14:19 | Pulmonology Progress Note ---
Subjective ROS Limited/Unobtainable: Yes Interval Events: FiO2 now 40%; Remains on vent. Constitutional: Reports: fatigue HEENT: Repors: no symptoms Respiratory: Reports: no symptoms Cardiovascular: Reports: no symptoms Gastrointestinal/Abdominal: Reports: diarrhea Genitourinary: Reports: no symptoms Psychiatric: Reports: other - on restraint Allergies: Coded Allergies: No Known Allergies (Unverified , 06/13/20) Objective Last 24 Hour Vital Signs Date Time Temp Pulse Resp B/P (MAP) Pulse Ox O2 Delivery O2 Flow Rate FiO2 07/04/20 12:00 96.7 63 18 121/75 (90) 99 07/04/20 12:00 Mechanical Ventilator 07/04/20 12:00 45 07/04/20 11:10 61 20 45 07/04/20 08:00 Mechanical Ventilator 07/04/20 08:00 65 07/04/20 08:00 97.0 62 20 122/71 (88) 99 07/04/20 08:00 45 07/04/20 07:10 64 19 45 07/04/20 04:00 Mechanical Ventilator 07/04/20 04:00 45 07/04/20 04:00 96.9 97 19 121/74 (90) 96 07/04/20 03:37 67 07/04/20 03:15 68 20 45 07/04/20 01:00 68 23 96 Mechanical Ventilator 45 07/04/20 00:00 45 07/04/20 00:00 Mechanical Ventilator 07/04/20 00:00 96.4 70 19 128/74 (92) 96 07/03/20 23:30 70 07/03/20 23:17 70 21 45 07/03/20 20:00 Mechanical Ventilator 07/03/20 20:00 45 07/03/20 20:00 96.6 70 19 129/78 (95) 96 07/03/20 20:00 69 07/03/20 19:36 74 20 45 07/03/20 16:00 Mechanical Ventilator 07/03/20 16:00 68 07/03/20 16:00 45 07/03/20 16:00 97.0 68 18 127/77 (94) 96 07/03/20 15:24 70 23 45 Intake and Output 07/03/20 07/04/20 19:00 07:00 Intake Total 560 ml 550 ml Output Total 130 ml Balance 430 ml 550 ml Free Water 60 ml 50 ml Tube Feeding 500 ml 500 ml Output Urine Total 100 ml Stool Total 30 ml General Appearance: no acute distress HEENT: status post trach Respiratory: chest wall non-tender, decreased breath sounds Cardiovascular: normal peripheral pulses, normal rate Abdomen: normal bowel sounds Extremities: no cyanosis Laboratory Tests 07/03/20 16:15: POC Whole Blood Glucose 110H 07/03/20 23:59: POC Whole Blood Glucose 164H 07/04/20 04:05: White Blood Count 14.1H, Red Blood Count 2.48L, Hemoglobin 7.4L, Hematocrit 21.9L, Mean Corpuscular Volume 88, Mean Corpuscular Hemoglobin 30.0, Mean Corpuscular Hemoglobin Concent 34.0, Red Cell Distribution Width 16.4H, Platelet Count 91L, Mean Platelet Volume 11.0H, Neutrophils (%) (Auto) , Lymphocytes (%) (Auto) , Monocytes (%) (Auto) , Eosinophils (%) (Auto) , Basophils (%) (Auto) , Differential Total Cells Counted 100, Neutrophils % (Manual) 78H, Lymphocytes % (Manual) 12L, Monocytes % (Manual) 5, Eosinophils % (Manual) 5H, Basophils % (Manual) 0, Band Neutrophils 0, Platelet Estimate DecreasedL, Platelet Morphology Normal, Hypochromasia 1+, Anisocytosis 1+, Sodium Level 131L, Potassium Level 5.4H, Chloride Level 98, Carbon Dioxide Level 32, Blood Urea Nitrogen 90H, Creatinine 5.2H, Estimat Glomerular Filtration Rate 14.2, Glucose Level 124H, Calcium Level 8.3L, Phosphorus Level 4.4, Magnesium Level 2.8H, Total Bilirubin 0.4, Gamma Glutamyl Transpeptidase 84, Aspartate Amino Transf (AST/SGOT) 114H, Alanine Aminotransferase (ALT/SGPT) 133H, Alkaline Phosphatase 461H, C-Reactive Protein, Quantitative 18.1H, Pro-B-Type Natriuretic Peptide > 49794Q, Total Protein 7.1, Albumin 1.4L, Globulin 5.7, Albumin/Globulin Ratio 0.2L 07/04/20 06:11: POC Whole Blood Glucose 130H 07/04/20 12:05: POC Whole Blood Glucose 78 07/04/20 12:19: POC Whole Blood Glucose 89 Current Medications Medications (Trade) Dose Ordered Sig/Maryjane Route PRN Reason Start Time Stop Time Status Last Admin Dose Admin Acetaminophen (Tylenol) 650 mg Q4H PRN GT Mild Pain (Pain Scale 1-3) 06/18/20 23:00 07/18/20 22:59 Acetaminophen (Tylenol) 650 mg Q4HR PRN GT FEVER 06/14/20 09:45 07/14/20 09:44 06/19/20 20:45 Aluminum Hydroxide (Amphojel) 1,920 mg Q6H GT 06/17/20 10:00 07/17/20 09:59 07/04/20 09:47 Ascorbic Acid (Vitamin C) 500 mg DAILY GT 07/01/20 09:00 07/31/20 08:59 07/04/20 09:46 Chlorhexidine Gluconate (Inés-Hex 2%) 1 applic DAILY@1999 TOPIC 06/21/20 20:00 09/19/20 19:59 07/03/20 20:21 Dextrose (Dextrose 50%) 25 ml Q30M PRN IV Hypoglycemia 06/28/20 18:30 09/26/20 18:29 Dextrose (Dextrose 50%) 50 ml Q30M PRN IV Hypoglycemia 06/28/20 18:30 09/26/20 18:29 Epoetin Bonilla (Epoetin Bonilla(ESRD on dialysis)) 10,000 unit TUE-TUE-TUE SUBQ 07/02/20 21:00 09/16/20 20:59 07/02/20 20:37 Haloperidol Lactate (Haldol) 5 mg Q6H PRN IM Agitation 06/21/20 23:15 08/05/20 23:14 06/25/20 18:17 Insulin Aspart (NovoLOG) EVERY 6 HOURS SUBQ 06/29/20 00:00 09/27/20 00:00 07/04/20 00:01 Lansoprazole (Prevacid) 30 mg Q12HR GT 06/30/20 21:00 07/30/20 20:59 07/04/20 09:46 Levothyroxine Sodium (Synthroid) 88 mcg DAILY@629 GT 07/03/20 06:30 08/02/20 06:29 07/04/20 06:28 Vancomycin HCl (Vanco pharmacy to dose) 1 ea DAILY PRN MISC Per rx protocol 06/27/20 11:30 07/18/20 23:59 Assessment/Plan Assessment/Plan . Chronic respiratory failure. 2. Hypoxemia. 3. Respiratory acidosis. 4. Anemia. 5. Leukocytosis. 6. DVT 7. S/p code blue 06/19/20 DISCUSSION: The patient's x-ray is markedly abnormal with bilateral infiltrates. I suspect he has pulmonary fibrosis. Latest CXR is unchanged to slightly improved COVID 19 pcr and antigen both negative No anticoagulation for DVT due to anemia S/p IVC filter placement Continue assist-control mechanical ventilation; broad-spectrum antibiotics. Transfusion as need I will follow carefully. The above plan was discussed with supervising physician Angelika Joshua NP Jul 04, 2020 14:19
[2020-07-04 16:00] VITALS: BP 117/71
--- NOTE | 2020-07-04 19:57 | NUR ---
NURSE HAND-OFF REPORT: Important Events on Shift:None Patient Status: None Diet: Vital AF @ 50cc/hr Pending Orders: N Pending Results/Labs:N Pending MD notification:N Latest Vital Signs: Temperature 97.1 , Pulse 67 , B/P 117 /71 , Respiratory Rate 19 , O2 SAT 98 , Mechanical Ventilator, O2 Flow Rate 15.0 . Vital Sign Comment: stable EKG Rhythm: Sinus Rhythm Rhythm change?: N MD Notified?: N -Dr. Ruel BENDER Response: No New Orders Received Latest Santiago Fall Score: 95 Fall Risk: High Risk Safety Measures: Call light Within Reach, Bed Alarm Zone 2, Side Rails Side Rails x3, Bed position Low and Locked. Fall Precautions: Yellow Socks Yellow Gown Door Sign Patient Fall Education Report given to MAX Quinones.
[2020-07-04 20:00] VITALS: BP 153/74
--- NOTE | 2020-07-04 20:04 | NUR ---
NURSE NOTES: Per toro Márquez RN, Dr Mcguire is aware Hemoglobin of 7.4 level.
--- NOTE | 2020-07-04 20:14 | General Progress Note ---
Subjective ROS Limited/Unobtainable: Yes Allergies: Coded Allergies: No Known Allergies (Unverified , 06/13/20) Objective Last 24 Hour Vital Signs Date Time Temp Pulse Resp B/P (MAP) Pulse Ox O2 Delivery O2 Flow Rate FiO2 07/04/20 18:52 67 19 45 07/04/20 16:00 97.1 63 17 117/71 (86) 98 07/04/20 16:00 64 07/04/20 16:00 Mechanical Ventilator 07/04/20 16:00 45 07/04/20 15:16 65 18 45 07/04/20 12:00 96.7 63 18 121/75 (90) 99 07/04/20 12:00 62 07/04/20 12:00 Mechanical Ventilator 07/04/20 12:00 45 07/04/20 11:10 61 20 45 07/04/20 08:00 Mechanical Ventilator 07/04/20 08:00 65 07/04/20 08:00 97.0 62 20 122/71 (88) 99 07/04/20 08:00 45 07/04/20 07:10 64 19 45 07/04/20 04:00 Mechanical Ventilator 07/04/20 04:00 45 07/04/20 04:00 96.9 97 19 121/74 (90) 96 07/04/20 03:37 67 07/04/20 03:15 68 20 45 07/04/20 01:00 68 23 96 Mechanical Ventilator 45 07/04/20 00:00 45 07/04/20 00:00 Mechanical Ventilator 07/04/20 00:00 96.4 70 19 128/74 (92) 96 07/03/20 23:30 70 07/03/20 23:17 70 21 45 Intake and Output 07/03/20 07/04/20 19:00 07:00 Intake Total 560 ml 550 ml Output Total 130 ml Balance 430 ml 550 ml Free Water 60 ml 50 ml Tube Feeding 500 ml 500 ml Output Urine Total 100 ml Stool Total 30 ml Laboratory Tests 07/03/20 23:59: POC Whole Blood Glucose 164H 07/04/20 04:05: White Blood Count 14.1H, Red Blood Count 2.48L, Hemoglobin 7.4L, Hematocrit 21.9L, Mean Corpuscular Volume 88, Mean Corpuscular Hemoglobin 30.0, Mean Corpuscular Hemoglobin Concent 34.0, Red Cell Distribution Width 16.4H, Platelet Count 91L, Mean Platelet Volume 11.0H, Neutrophils (%) (Auto) , Lymphocytes (%) (Auto) , Monocytes (%) (Auto) , Eosinophils (%) (Auto) , Basophils (%) (Auto) , Differential Total Cells Counted 100, Neutrophils % (Manual) 78H, Lymphocytes % (Manual) 12L, Monocytes % (Manual) 5, Eosinophils % (Manual) 5H, Basophils % (Manual) 0, Band Neutrophils 0, Platelet Estimate DecreasedL, Platelet Morphology Normal, Hypochromasia 1+, Anisocytosis 1+, Sodium Level 131L, Potassium Level 5.4H, Chloride Level 98, Carbon Dioxide Level 32, Blood Urea Nitrogen 90H, Creatinine 5.2H, Estimat Glomerular Filtration Rate 14.2, Glucose Level 124H, Calcium Level 8.3L, Phosphorus Level 4.4, Magnesium Level 2.8H, Total Bilirubin 0.4, Gamma Glutamyl Transpeptidase 84, Aspartate Amino Transf (AST/SGOT) 114H, Alanine Aminotransferase (ALT/SGPT) 133H, Alkaline Phosphatase 461H, C-Reactive Protein, Quantitative 18.1H, Pro-B-Type Natriuretic Peptide > 38789X, Total Protein 7.1, Albumin 1.4L, Globulin 5.7, Albumin/Globulin Ratio 0.2L 07/04/20 06:11: POC Whole Blood Glucose 130H 07/04/20 12:05: POC Whole Blood Glucose 78 07/04/20 12:19: POC Whole Blood Glucose 89 07/04/20 17:48: POC Whole Blood Glucose 127H 07/04/20 18:25: Random Vancomycin Level 18.9 Height (Feet): 5 Height (Inches): 8.00 Weight (Pounds): 143 Assessment/Plan Problem List: (1) Anemia ICD Codes: D64.9 - Anemia, unspecified SNOMED: 088710000 (2) KERRI (acute kidney injury) ICD Codes: N17.9 - Acute kidney failure, unspecified SNOMED: 0998431, 46945979 (3) Acute respiratory failure ICD Codes: J96.00 - Acute respiratory failure, unspecified whether with hypoxia or hypercapnia SNOMED: 36000467 Qualifiers: Qualified Codes: J96.02 - Acute respiratory failure with hypercapnia (4) Hyperkalemia ICD Codes: E87.5 - Hyperkalemia SNOMED: 34957493 (5) Abnormal laboratory test result ICD Codes: R89.9 - Unspecified abnormal finding in specimens from other organs, systems and tissues SNOMED: 370916441 (6) Anemia ICD Codes: D64.9 - Anemia, unspecified SNOMED: 858995813 Status: progressing Assessment/Plan: resp insuff afebrile not improving abx per id er dr jones sacral wound dehiscence s/p dehiscence chf no change s/p acute mi Neida Apple MD Jul 04, 2020 20:14
--- NOTE | 2020-07-04 20:16 | NUR ---
NURSE NOTES: Dialysis nurse at bedside for HD. Pt in stable condition.
[2020-07-04] MEDS: Dyna-Hex 2% Top Sol 2oz TOPIC SCH (20:37)
[2020-07-04] MEDS: Epoetin Alfa-EPBX(ESRD on dialysis)10,000 unit/ml vial SUBQ SCH (21:45)
--- NOTE | 2020-07-04 23:18 | NUR ---
NURSE NOTES: 1 L out post HD. Pt in stable condition. Offered blanket but refused to use.
--- NOTE | 2020-07-04 23:25 | Psychiatric Progress Note ---
Psychiatry Progress Note Psychiatry Progress Note Subjective the pt still needs prns agitation Medications Current Medications Medications (Trade) Dose Ordered Sig/Maryjane Route PRN Reason Start Time Stop Time Status Last Admin Dose Admin Acetaminophen (Tylenol) 650 mg Q4H PRN GT Mild Pain (Pain Scale 1-3) 06/18/20 23:00 07/18/20 22:59 Acetaminophen (Tylenol) 650 mg Q4HR PRN GT FEVER 06/14/20 09:45 07/14/20 09:44 06/19/20 20:45 Aluminum Hydroxide (Amphojel) 1,920 mg Q6H GT 06/17/20 10:00 07/17/20 09:59 07/04/20 21:45 Ascorbic Acid (Vitamin C) 500 mg DAILY GT 07/01/20 09:00 07/31/20 08:59 07/04/20 09:46 Chlorhexidine Gluconate (Inés-Hex 2%) 1 applic DAILY@1999 TOPIC 06/21/20 20:00 09/19/20 19:59 07/04/20 20:37 Dextrose (Dextrose 50%) 25 ml Q30M PRN IV Hypoglycemia 06/28/20 18:30 09/26/20 18:29 Dextrose (Dextrose 50%) 50 ml Q30M PRN IV Hypoglycemia 06/28/20 18:30 09/26/20 18:29 Epoetin Bonilla (Epoetin Bonilla(ESRD on dialysis)) 10,000 unit TUE-TUE-TUE SUBQ 07/02/20 21:00 09/16/20 20:59 07/04/20 21:45 Haloperidol Lactate (Haldol) 5 mg Q6H PRN IM Agitation 06/21/20 23:15 08/05/20 23:14 06/25/20 18:17 Insulin Aspart (NovoLOG) EVERY 6 HOURS SUBQ 06/29/20 00:00 09/27/20 00:00 07/04/20 00:01 Lansoprazole (Prevacid) 30 mg Q12HR GT 06/30/20 21:00 07/30/20 20:59 07/04/20 20:37 Levothyroxine Sodium (Synthroid) 88 mcg DAILY@0630 GT 07/03/20 06:30 08/02/20 06:29 07/04/20 06:28 Vancomycin HCl (Vanco pharmacy to dose) 1 ea DAILY PRN MISC Per rx protocol 06/27/20 11:30 07/18/20 23:59 Vancomycin HCl 500 mg/Dextrose 110 ml @ 110 mls/hr ONCE IVPB 07/05/20 02:00 07/05/20 05:00 Neurological/Psychiatric: Reports: anxiety, depressed; Denies: no symptoms, emotional problems, headache, numbness, paresthesia, pre-existing deficit, seizure, tingling, tremors, weakness, other Allergies: Coded Allergies: No Known Allergies (Unverified , 06/13/20) Objective Data Height (Feet): 5 Height (Inches): 8.00 Weight (Pounds): 143 General Appearance: no apparent distress Additional Comments: awake, eyes open. Unable to communicate. Mood is anxious and depressed. Affect is blunted, congruent with mood. Thought process concrete. Thought content, no suicidal or homicidal ideation. Thought content is impaired. Insight and judgment is impaired. Assessment/Plan Apollo I: ASSESSMENT: Apollo I dementia. Apollo II Deferred. Apollo III As above. Apollo IV Low. Apollo V 20. PLAN: 1. Haldol IM p.r.n. 2. Patient is on bilateral restraints. 3. Continue to follow and readjust the medications. Status: progressing Status Narrative ASSESSMENT: Apollo I dementia. Apollo II Deferred. Apollo III As above. Apollo IV Low. Apollo V 20. PLAN: 1. Haldol IM p.r.n. 2. Patient is on bilateral restraints. 3. Continue to follow and readjust the medications. Assessment/Plan: ASSESSMENT: Apollo I dementia. Apollo II Deferred. Apollo III As above. Apollo IV Low. Apollo V 20. PLAN: 1. Haldol IM p.r.n. 2. Patient is on bilateral restraints. 3. Continue to follow and readjust the medications. Neftaly Delacruz MD Jul 04, 2020 23:25
[2020-07-05] VITALS: BP 147/81
[2020-07-05] MEDS ORDERED: Vancomycin 500mg/D5W 100ml IVPB SCH ×2 (02:00)
[2020-07-05 04:00] VITALS: BP 141/73
--- NOTE | 2020-07-05 04:00 | NUR ---
NURSE NOTES: Pt awake in bed , watching tv. No respiratory distress noted. Continue to monitor the patient.
[2020-07-05] MEDS: Aluminum Hydroxide Gel Susp 15ml GT SCH ×4 (04:17→21:00)
[2020-07-05] MEDS: NovoLOG Insulin Flexpen SUBQ SCH ×4 (05:09→23:59)
--- NOTE | 2020-07-05 07:46 | NUR ---
NURSE HAND-OFF REPORT: Important Events on Shift:HD Patient Status: Stable Diet: VItal AF Pending Orders: Pending Results/Labs: Pending MD notification: Latest Vital Signs: Temperature 97.2 , Pulse 72 , B/P 141 /73 , Respiratory Rate 18 , O2 SAT 96 , Mechanical Ventilator, O2 Flow Rate 15.0 . Vital Sign Comment: EKG Rhythm: Sinus Rhythm Rhythm change?: N MD Notified?: MD Response: Latest Santiago Fall Score: 95 Fall Risk: High Risk Safety Measures: Call light Within Reach, Bed Alarm Zone 2, Side Rails Side Rails x3, Bed position Low and Locked. Fall Precautions: Yellow Socks Yellow Gown Door Sign Patient Fall Education Report given to MAX Epps.
--- NOTE | 2020-07-05 07:48 | NUR ---
NURSE NOTES: Received report from Sydney/RN, Observed Patient in bed, awake, lying semi-caba's, resting comfortably. On vent -trach with prescribed setting, no signs or symptoms of acute cardiac or respiratory distress noted. Able to make needs known . G-tube feeding on hold. Sparrow catheter intact and draining well to gravity, with rectal tube patent, draining well via gravity. IV line on R AC #20G, and L hand #22 patent and flushed well, TKO. Aspiration precautions in place, observed bilateral soft restraint for safety. Bed in lowest positioned and locked, safety brakes engaged, side-rails x3, call light within easy reach, Encouraged to use call light when needed. Will continue plan of care.
[2020-07-05 08:00] VITALS: BP 141/73
--- NOTE | 2020-07-05 08:42 | NUR ---
NURSE NOTES: Called Dr. Garcia's office and talked to Dr. Villalobos covering for Jose, Received order to change setting for Vent AC from 16 to 18. order carried out. Called RT Shin to change setting.
--- NOTE | 2020-07-05 09:02 | General Progress Note ---
Subjective ROS Limited/Unobtainable: Yes Allergies: Coded Allergies: No Known Allergies (Unverified , 06/13/20) Objective Last 24 Hour Vital Signs Date Time Temp Pulse Resp B/P (MAP) Pulse Ox O2 Delivery O2 Flow Rate FiO2 07/05/20 08:00 97.0 69 18 141/73 (95) 99 07/05/20 07:10 70 19 45 07/05/20 04:00 Mechanical Ventilator 07/05/20 04:00 45 07/05/20 04:00 97.2 72 18 141/73 (95) 96 07/05/20 04:00 76 07/05/20 02:44 74 19 45 07/05/20 00:00 75 07/05/20 00:00 97.4 76 22 147/81 (103) 99 07/05/20 00:00 Mechanical Ventilator 07/05/20 00:00 45 07/04/20 23:21 75 17 45 07/04/20 20:00 96.4 67 20 153/74 (100) 97 07/04/20 20:00 45 07/04/20 20:00 65 07/04/20 20:00 Mechanical Ventilator 07/04/20 18:52 67 19 45 07/04/20 16:00 97.1 63 17 117/71 (86) 98 07/04/20 16:00 64 07/04/20 16:00 Mechanical Ventilator 07/04/20 16:00 45 07/04/20 15:16 65 18 45 07/04/20 12:00 96.7 63 18 121/75 (90) 99 07/04/20 12:00 62 07/04/20 12:00 Mechanical Ventilator 07/04/20 12:00 45 07/04/20 11:10 61 20 45 Intake and Output 07/04/20 07/05/20 19:00 07:00 Intake Total 860 ml Output Total 500 ml Balance 360 ml Free Water 250 ml IV Total 110 ml Tube Feeding 500 ml Output Urine Total 400 ml Stool Total 100 ml Laboratory Tests 07/04/20 12:05: POC Whole Blood Glucose 78 07/04/20 12:19: POC Whole Blood Glucose 89 07/04/20 17:48: POC Whole Blood Glucose 127H 07/04/20 18:25: Random Vancomycin Level 18.9 07/04/20 23:23: POC Whole Blood Glucose 122H 07/05/20 05:05: POC Whole Blood Glucose 154H 07/05/20 07:25: Arterial Blood pH 7.252L, Arterial Blood Partial Pressure CO2 63.9*H, Arterial Blood Partial Pressure O2 101.0H, Arterial Blood HCO3 27.5H, Arterial Blood Oxy gen Saturation 97.4, Arterial Blood Base Excess -0.1, Joe Test Positive Height (Feet): 5 Height (Inches): 8.00 Weight (Pounds): 143 Assessment/Plan Problem List: (1) Anemia ICD Codes: D64.9 - Anemia, unspecified SNOMED: 692019091 (2) KERRI (acute kidney injury) ICD Codes: N17.9 - Acute kidney failure, unspecified SNOMED: 3186455, 85994565 (3) Acute respiratory failure ICD Codes: J96.00 - Acute respiratory failure, unspecified whether with hypoxia or hypercapnia SNOMED: 34520329 Qualifiers: Qualified Codes: J96.02 - Acute respiratory failure with hypercapnia (4) Hyperkalemia ICD Codes: E87.5 - Hyperkalemia SNOMED: 35777299 (5) Abnormal laboratory test result ICD Codes: R89.9 - Unspecified abnormal finding in specimens from other organs, systems and tissues SNOMED: 325536330 (6) Anemia ICD Codes: D64.9 - Anemia, unspecified SNOMED: 635902652 Status: progressing Assessment/Plan: no change continue supportive care repeat cxr s/p pulmonary edema afebrie er dr jones sacral wound dehiscence s/p dehiscence chf no change s/p acute mi Neida Apple MD Jul 05, 2020 09:02
--- NOTE | 2020-07-05 09:03 | NUR ---
RESPIRATORY NOTE: Increased set RR to 18 per MD order post ABG. RN aware. Will continue to monitor and follow plan of care.
[2020-07-05] MEDS: Ascorbic Acid 500mg tab GT SCH (09:08)
[2020-07-05 09:20] LABS: HEMATOCRIT 22.4 % (42.0-52.0); HEMOGLOBIN 7.5 G/DL (14.2-18.0); MEAN CORPUSCULAR VOLUME 90 FL (80-99); PLATELET COUNT 123 K/UL (150-450); RED BLOOD COUNT 2.49 M/UL (4.70-6.10); RED CELL DISTRIBUTION WIDTH 15.2 % (11.6-14.8); WHITE BLOOD COUNT 10.1 K/UL (4.8-10.8)
--- NOTE | 2020-07-05 09:27 | General Progress Note ---
Subjective ROS Limited/Unobtainable: Yes Allergies: Coded Allergies: No Known Allergies (Unverified , 06/13/20) Subjective events noted interval notes reviewed glucose values are stable Item Value Date Time Bedside Blood Glucose 154 mg/dl H 07/05/20 0519 Bedside Blood Glucose 122 mg/dl H 07/04/20 2325 Bedside Blood Glucose 127 mg/dl H 07/04/20 1800 Bedside Blood Glucose 98 mg/dl 07/04/20 1200 Bedside Blood Glucose 130 mg/dl H 07/04/20 0600 Objective Last 24 Hour Vital Signs Date Time Temp Pulse Resp B/P (MAP) Pulse Ox O2 Delivery O2 Flow Rate FiO2 07/05/20 08:00 97.0 69 18 141/73 (95) 99 07/05/20 07:10 70 19 45 07/05/20 04:00 Mechanical Ventilator 07/05/20 04:00 45 07/05/20 04:00 97.2 72 18 141/73 (95) 96 07/05/20 04:00 76 07/05/20 02:44 74 19 45 07/05/20 00:00 75 07/05/20 00:00 97.4 76 22 147/81 (103) 99 07/05/20 00:00 Mechanical Ventilator 07/05/20 00:00 45 07/04/20 23:21 75 17 45 07/04/20 20:00 96.4 67 20 153/74 (100) 97 07/04/20 20:00 45 07/04/20 20:00 65 07/04/20 20:00 Mechanical Ventilator 07/04/20 18:52 67 19 45 07/04/20 16:00 97.1 63 17 117/71 (86) 98 07/04/20 16:00 64 07/04/20 16:00 Mechanical Ventilator 07/04/20 16:00 45 07/04/20 15:16 65 18 45 07/04/20 12:00 96.7 63 18 121/75 (90) 99 07/04/20 12:00 62 07/04/20 12:00 Mechanical Ventilator 07/04/20 12:00 45 07/04/20 11:10 61 20 45 Intake and Output 07/04/20 07/05/20 19:00 07:00 Intake Total 860 ml Output Total 500 ml Balance 360 ml Free Water 250 ml IV Total 110 ml Tube Feeding 500 ml Output Urine Total 400 ml Stool Total 100 ml Laboratory Tests 07/04/20 12:05: POC Whole Blood Glucose 78 07/04/20 12:19: POC Whole Blood Glucose 89 07/04/20 17:48: POC Whole Blood Glucose 127H 07/04/20 18:25: Random Vancomycin Level 18.9 07/04/20 23:23: POC Whole Blood Glucose 122H 07/05/20 04:00: Sodium Level [Pending], Potassium Level [Pending], Chloride Level [Pending], Carbon Dioxide Level [Pending], Blood Urea Nitrogen [Pending], Creatinine [Pending], Estimat Glomerular Filtration Rate [Pending], Glucose Level [Pending], Calcium Level [Pending], Total Bilirubin [Pending], Aspartate Amino Transf (AST/SGOT) [Pending], Alanine Aminotransferase (ALT/SGPT) [Pending], Alkaline Phosphatase [Pending], Total Protein [Pending], Albumin [Pending], Globulin [Pending] 07/05/20 05:05: POC Whole Blood Glucose 154H 07/05/20 07:25: Arterial Blood pH 7.252L, Arterial Blood Partial Pressure CO2 63.9*H, Arterial Blood Partial Pressure O2 101.0H, Arterial Blood HCO3 27.5H, Arterial Blood Oxygen Saturation 97.4, Arterial Blood Base Excess -0.1, Joe Test Positive 07/05/20 07:55: White Blood Count [Pending], Red Blood Count [Pending], Hemoglobin [Pending], Hematocrit [Pending], Mean Corpuscular Volume [Pending], Mean Corpuscular Hemogl obin [Pending], Mean Corpuscular Hemoglobin Concent [Pending], Red Cell Distribution Width [Pending], Platelet Count [Pending], Mean Platelet Volume [Pending], Neutrophils (%) (Auto) [Pending], Lymphocytes (%) (Auto) [Pending], Monocytes (%) (Auto) [Pending], Eosinophils (%) (Auto) [Pending], Basophils (%) (Auto) [Pending], Sodium Level [Pending], Potassium Level [Pending], Chloride Level [Pending], Carbon Dioxide Level [Pending], Blood Urea Nitrogen [Pending], Creatinine [Pending], Estimat Glomerular Filtration Rate [Pending], Glucose Level [Pending], Uric Acid [Pending], Calcium Level [Pending], Phosphorus Level [Pending], Magnesium Level [Pending], Total Bilirubin [Pending], Aspartate Amino Transf (AST/SGOT) [Pending], Alanine Aminotransferase (ALT/SGPT) [Pending], Alkaline Phosphatase [Pending], C-Reactive Protein, Quantitative [Pending], Total Protein [Pending], Albumin [Pending], Globulin [Pending] Height (Feet): 5 Height (Inches): 8.00 Weight (Pounds): 143 General Appearance: no apparent distress Cardiovascular: normal rate Respiratory/Chest: decreased breath sounds Abdomen: normal bowel sounds Objective Current Medications Medications (Trade) Dose Ordered Sig/Maryjane Route PRN Reason Start Time Stop Time Status Last Admin Dose Admin Acetaminophen (Tylenol) 650 mg Q4H PRN GT Mild Pain (Pain Scale 1-3) 06/18/20 23:00 07/18/20 22:59 Acetaminophen (Tylenol) 650 mg Q4HR PRN GT FEVER 06/14/20 09:45 07/14/20 09:44 06/19/20 20:45 Aluminum Hydroxide (Amphojel) 1,920 mg Q6H GT 06/17/20 10:00 07/17/20 09:59 07/05/20 09:08 Ascorbic Acid (Vitamin C) 500 mg DAILY GT 07/01/20 09:00 07/31/20 08:59 07/05/20 09:08 Chlorhexidine Gluconate (Inés-Hex 2%) 1 applic DAILY@1999 TOPIC 06/21/20 20:00 09/19/20 19:59 07/04/20 20:37 Dextrose (Dextrose 50%) 25 ml Q30M PRN IV Hypoglycemia 06/28/20 18:30 09/26/20 18:29 Dextrose (Dextrose 50%) 50 ml Q30M PRN IV Hypoglycemia 06/28/20 18:30 09/26/20 18:29 Epoetin Bonilla (Epoetin Bonilla(ESRD on dialysis)) 10,000 unit TUE-TUE-TUE SUBQ 07/02/20 21:00 09/16/20 20:59 07/04/20 21:45 Haloperidol Lactate (Haldol) 5 mg Q6H PRN IM Agitation 06/21/20 23:15 08/05/20 23:14 06/25/20 18:17 Insulin Aspart (NovoLOG) EVERY 6 HOURS SUBQ 06/29/20 00:00 09/27/20 00:00 07/05/20 05:09 Lansoprazole (Prevacid) 30 mg Q12HR GT 06/30/20 21:00 07/30/20 20:59 07/05/20 09:08 Levothyroxine Sodium (Synthroid) 88 mcg DAILY@0630 GT 07/03/20 06:30 08/02/20 06:29 07/05/20 06:36 Vancomycin HCl (Vanco pharmacy to dose) 1 ea DAILY PRN MISC Per rx protocol 06/27/20 11:30 07/18/20 23:59 Assessment/Plan Problem List: (1) History of left below knee amputation ICD Codes: Z89.512 - Acquired absence of left leg below knee SNOMED: 980082165, 975226674997115 (2) Surgical wound dehiscence ICD Codes: T81.31XA - Disruption of external operation (surgical) wound, not elsewhere classified, initial encounter SNOMED: 97962909 (3) Hyperkalemia ICD Codes: E87.5 - Hyperkalemia SNOMED: 03985134 (4) Acute respiratory failure ICD Codes: J96.00 - Acute respiratory failure, unspecified whether with hypoxia or hypercapnia SNOMED: 23348374 Qualifiers: Qualified Codes: J96.02 - Acute respiratory failure with hypercapnia (5) Hypothyroidism ICD Codes: E03.9 - Hypothyroidism, unspecified SNOMED: 65739850 (6) Hyperglycemia ICD Codes: R73.9 - Hyperglycemia, unspecified SNOMED: 89697066 Status: progressing Assessment/Plan: continue Levothyroxine 88 mcg daily repeat thyroid function in 1-2 weeks continue glucose monitoring Davy Ramos MD Jul 05, 2020 09:27
[2020-07-05 10:17] LABS: ALANINE AMINOTRANSFERASE 124 U/L (12-78); ALBUMIN 1.4 G/DL (3.4-5.0); ALBUMIN/GLOBULIN RATIO 0.2 (1.0-2.7); ALKALINE PHOSPHATASE 428 U/L (46-116); ASPARTATE AMINO TRANSFERASE 90 U/L (15-37); BILIRUBIN,TOTAL 0.4 MG/DL (0.2-1.0); BLOOD UREA NITROGEN 61 mg/dL (7-18); CALCIUM 8.4 MG/DL (8.5-10.1); CARBON DIOXIDE 29 MMOL/L (21-32); CREATININE 3.6 MG/DL (0.55-1.30)
[2020-07-05 10:22] LABS: PHOSPHORUS 3.2 MG/DL (2.5-4.9)
[2020-07-05 10:33] LABS: CHLORIDE 100 MMOL/L (98-107); POTASSIUM 4.7 MMOL/L (3.5-5.1); SODIUM 134 MMOL/L (136-145)
[2020-07-05 12:00] VITALS: BP 137/70
--- NOTE | 2020-07-05 13:00 | NUR ---
NURSE NOTES: Wound dressings changed, picture taken.Turned and reposition. Will continue to monitor.
[2020-07-05] MEDS ORDERED: NS 275ml ONE (13:28)
--- NOTE | 2020-07-05 13:45 | Pulmonology Progress Note ---
Subjective ROS Limited/Unobtainable: Yes Interval Events: FiO2 now 40%; Remains on vent. Constitutional: Reports: fatigue HEENT: Repors: no symptoms Respiratory: Reports: no symptoms Cardiovascular: Reports: no symptoms Gastrointestinal/Abdominal: Reports: diarrhea Genitourinary: Reports: no symptoms Psychiatric: Reports: other - on restraint Allergies: Coded Allergies: No Known Allergies (Unverified , 06/13/20) Objective Last 24 Hour Vital Signs Date Time Temp Pulse Resp B/P (MAP) Pulse Ox O2 Delivery O2 Flow Rate FiO2 07/05/20 12:00 Mechanical Ventilator 07/05/20 12:00 45 07/05/20 12:00 97.2 65 18 137/70 (92) 99 07/05/20 11:10 65 20 45 07/05/20 08:00 97.0 69 18 141/73 (95) 99 07/05/20 08:00 Mechanical Ventilator 07/05/20 08:00 45 07/05/20 08:00 69 07/05/20 07:10 70 19 45 07/05/20 04:00 Mechanical Ventilator 07/05/20 04:00 45 07/05/20 04:00 97.2 72 18 141/73 (95) 96 07/05/20 04:00 76 07/05/20 02:44 74 19 45 07/05/20 00:00 75 07/05/20 00:00 97.4 76 22 147/81 (103) 99 07/05/20 00:00 Mechanical Ventilator 07/05/20 00:00 45 07/04/20 23:21 75 17 45 07/04/20 20:00 96.4 67 20 153/74 (100) 97 07/04/20 20:00 45 07/04/20 20:00 65 07/04/20 20:00 Mechanical Ventilator 07/04/20 18:52 67 19 45 07/04/20 16:00 97.1 63 17 117/71 (86) 98 07/04/20 16:00 64 07/04/20 16:00 Mechanical Ventilator 07/04/20 16:00 45 07/04/20 15:16 65 18 45 Intake and Output 07/04/20 07/05/20 19:00 07:00 Intake Total 860 ml Output Total 1500 ml Balance -640 ml Free Water 250 ml IV Total 110 ml Tube Feeding 500 ml Output Urine Total 400 ml Stool Total 100 ml Hemodialysis UF 1000 ml General Appearance: no acute distress HEENT: status post trach Respiratory: chest wall non-tender, decreased breath sounds Cardiovascular: normal rate Abdomen: normal bowel sounds Extremities: no cyanosis Microbiology Date/Time Source Procedure Growth Status 07/03/20 17:40 Sputum Gram Stain - Final Resulted 07/03/20 17:40 Sputum Culture - Preliminary Gram Negative Imnh Resulted Laboratory Tests 07/04/20 17:48: POC Whole Blood Glucose 127H 07/04/20 18:25: Random Vancomycin Level 18.9 07/04/20 23:23: POC Whole Blood Glucose 122H 07/05/20 05:05: POC Whole Blood Glucose 154H 07/05/20 07:25: Arterial Blood pH 7.252L, Arterial Blood Partial Pressure CO2 63.9*H, Arterial Blood Partial Pressure O2 101.0H, Arterial Blood HCO3 27.5H, Arterial Blood Oxygen Saturation 97.4, Arterial Blood Base Excess -0.1, Joe Test Positive 07/05/20 07:55: White Blood Count 10.1, Red Blood Count 2.49L, Hemoglobin 7.5L, Hematocrit 22.4L , Mean Corpuscular Volume 90, Mean Corpuscular Hemoglobin 30.1, Mean Corpuscular Hemoglobin Concent 33.5, Red Cell Distribution Width 15.2H, Platelet Count 123L, Mean Platelet Volume 9.8, Neutrophils (%) (Auto) , Lymphocytes (%) (Auto) , Monocytes (%) (Auto) , Eosinophils (%) (Auto) , Basophils (%) (Auto) , Differential Total Cells Counted 100, Neutrophils % (Manual) 78H, Lymphocytes % (Manual) 9L, Monocytes % (Manual) 2, Eosinophils % (Manual) 11H, Basophils % (Manual) 0, Band Neutrophils 0, Platelet Estimate DecreasedL, Platelet Morphology Normal, Anisocytosis 1+, Sodium Level 134L, Potassium Level 4.7, Chloride Level 100, Carbon Dioxide Level 29, Blood Urea Nitrogen 61H, Creatinine 3.6H, Estimat Glomerular Filtration Rate 21.6, Glucose Level 77, Uric Acid 3.3, Calcium Level 8.4L, Phosphorus Level 3.2, Magnesium Level 2.8H, Total Bilirubin 0.4, Aspartate Amino Transf (AST/SGOT) 90H, Alanine Aminotransferase (ALT/SGPT) 124H, Alkaline Phosphatase 428H, C-Reactive Protein, Quantitative 16.2H, Total Protein 7.1, Albumin 1.4L, Globulin 5.7, Albumin/Globulin Ratio 0.2L 07/05/20 11:55: POC Whole Blood Glucose 94 Current Medications Medications (Trade) Dose Ordered Sig/Maryjane Route PRN Reason Start Time Stop Time Status Last Admin Dose Admin Acetaminophen (Tylenol) 650 mg Q4H PRN GT Mild Pain (Pain Scale 1-3) 06/18/20 23:00 07/18/20 22:59 Acetaminophen (Tylenol) 650 mg Q4HR PRN GT FEVER 06/14/20 09:45 07/14/20 09:44 06/19/20 20:45 Aluminum Hydroxide (Amphojel) 1,920 mg Q6H GT 06/17/20 10:00 07/17/20 09:59 07/05/20 09:08 Ascorbic Acid (Vitamin C) 500 mg DAILY GT 07/01/20 09:00 07/31/20 08:59 07/05/20 09:08 Chlorhexidine Gluconate (Inés-Hex 2%) 1 applic DAILY@1999 TOPIC 06/21/20 20:00 09/19/20 19:59 07/04/20 20:37 Dextrose (Dextrose 50%) 25 ml Q30M PRN IV Hypoglycemia 06/28/20 18:30 09/26/20 18:29 Dextrose (Dextrose 50%) 50 ml Q30M PRN IV Hypoglycemia 06/28/20 18:30 09/26/20 18:29 Epoetin Bonilla (Epoetin Bonilla(ESRD on dialysis)) 10,000 unit SUBQ 07/02/20 21:00 09/16/20 20:59 07/04/20 21:45 Haloperidol Lactate (Haldol) 5 mg Q6H PRN IM Agitation 06/21/20 23:15 08/05/20 23:14 06/25/20 18:17 Insulin Aspart (NovoLOG) EVERY 6 HOURS SUBQ 06/29/20 00:00 09/27/20 00:00 07/05/20 05:09 Lansoprazole (Prevacid) 30 mg Q12HR GT 06/30/20 21:00 07/30/20 20:59 07/05/20 09:08 Levothyroxine Sodium (Synthroid) 88 mcg DAILY@0630 GT 07/03/20 06:30 08/02/20 06:29 07/05/20 06:36 Vancomycin HCl (Vanco pharmacy to dose) 1 ea DAILY PRN MISC Per rx protocol 06/27/20 11:30 07/18/20 23:59 Assessment/Plan Assessment/Plan 1. Respiratory failure. 2. Hypoxemia. 3. Left BTK Amputation 4. Anemia. 5. Leukocytosis. 7. S/p code blue 06/19/20 DISCUSSION: Agree with current treatment regimen The patient's x-ray is markedly abnormal with bilateral infiltrates. I suspect he has pulmonary fibrosis. Latest CXR is unchanged to slightly improved COVID 19 Negative No anticoagulation for DVT due to anemia S/p IVC filter placement Continue assist-control mechanical ventilation; broad-spectrum antibiotics. Transfusion as need I will follow carefully. The above treatment was discussed with supervising physician Angelika Joshua NP Jul 05, 2020 13:45
--- NOTE | 2020-07-05 14:43 | Surgery Progress Note ---
Surgery Progress Note Subjective Additional Comments leukocytosis resolved no n/v comfortable dressings going well Objective Last 24 Hour Vital Signs Date Time Temp Pulse Resp B/P (MAP) Pulse Ox O2 Delivery O2 Flow Rate FiO2 07/05/20 12:00 66 07/05/20 12:00 Mechanical Ventilator 07/05/20 12:00 45 07/05/20 12:00 97.2 65 18 137/70 (92) 99 07/05/20 11:10 65 20 45 07/05/20 08:00 97.0 69 18 141/73 (95) 99 07/05/20 08:00 Mechanical Ventilator 07/05/20 08:00 45 07/05/20 08:00 69 07/05/20 07:10 70 19 45 07/05/20 04:00 Mechanical Ventilator 07/05/20 04:00 45 07/05/20 04:00 97.2 72 18 141/73 (95) 96 07/05/20 04:00 76 07/05/20 02:44 74 19 45 07/05/20 00:00 75 07/05/20 00:00 97.4 76 22 147/81 (103) 99 07/05/20 00:00 Mechanical Ventilator 07/05/20 00:00 45 07/04/20 23:21 75 17 45 07/04/20 20:00 96.4 67 20 153/74 (100) 97 07/04/20 20:00 45 07/04/20 20:00 65 07/04/20 20:00 Mechanical Ventilator 07/04/20 18:52 67 19 45 07/04/20 16:00 97.1 63 17 117/71 (86) 98 07/04/20 16:00 64 07/04/20 16:00 Mechanical Ventilator 07/04/20 16:00 45 07/04/20 15:16 65 18 45 I&O Intake and Output 07/04/20 07/05/20 19:00 07:00 Intake Total 860 ml Output Total 1500 ml Balance -640 ml Free Water 250 ml IV Total 110 ml Tube Feeding 500 ml Output Urine Total 400 ml Stool Total 100 ml Hemodialysis UF 1000 ml Dressing: saturated Cardiovascular: RSR Respiratory: decreased breath sounds Abdomen: non-tender, present bowel sounds, non-distended Extremities: no edema, no tenderness, no cyanosis, pulses Laboratory Tests Test 07/04/20 17:48 07/04/20 18:25 07/04/20 23:23 07/05/20 05:05 POC Whole Blood Glucose 127 MG/DL (74-106) H 122 MG/DL (74-106) H 154 MG/DL (74-106) H Random Vancomycin Level 18.9 ug/mL Test 07/05/20 07:25 07/05/20 07:55 07/05/20 11:55 Arterial Blood pH 7.252 (7.350-7.450) Arterial Blood Partial Pressure CO2 63.9 mmHg (35.0-45.0) *H Arterial Blood Partial Pressure O2 101.0 mmHg (75.0-100.0) H Arterial Blood HCO3 27.5 mmol/L (22.0-26.0) H Arterial Blood Oxygen Saturation 97.4 % (95-100) Arterial Blood Base Excess -0.1 (-2-2) Joe Test Positive White Blood Count 10.1 K/UL (4.8-10.8) Red Blood Count 2.49 M/UL (4.70-6.10) L Hemoglobin 7.5 G/DL (14.2-18.0) L Hematocrit 22.4 % (42.0-52.0) L Mean Corpuscular Volume 90 FL (80-99) Mean Corpuscular Hemoglobin 30.1 PG (27.0-31.0) Mean Corpuscular Hemoglobin Concent 33.5 G/DL (32.0-36.0) Red Cell Distribution Width 15.2 % (11.6-14.8) H Platelet Count 123 K/UL (150-450) L Mean Platelet Volume 9.8 FL (6.5-10.1) Neutrophils (%) (Auto) % (45.0-75.0) Lymphocytes (%) (Auto) % (20.0-45.0) Monocytes (%) (Auto) % (1.0-10.0) Eosinophils (%) (Auto) % (0.0-3.0) Basophils (%) (Auto) % (0.0-2.0) Differential Total Cells Counted 100 Neutrophils % (Manual) 78 % (45-75) H Lymphocytes % (Manual) 9 % (20-45) L Monocytes % (Manual) 2 % (1-10) Eosinophils % (Manual) 11 % (0-3) H Basophils % (Manual) 0 % (0-2) Band Neutrophils 0 % (0-8) Platelet Estimate Decreased L Platelet Morphology Normal Anisocytosis 1+ Sodium Level 134 MMOL/L (136-145) L Potassium Level 4.7 MMOL/L (3.5-5.1) Chloride Level 100 MMOL/L (98-107) Carbon Dioxide Level 29 MMOL/L (21-32) Blood Urea Nitrogen 61 mg/dL (7-18) H Creatinine 3.6 MG/DL (0.55-1.30) H Estimat Glomerular Filtration Rate 21.6 mL/min (>60) Glucose Level 77 MG/DL (74-106) Uric Acid 3.3 MG/DL (2.6-7.2) Calcium Level 8.4 MG/DL (8.5-10.1) L Phosphorus Level 3.2 MG/DL (2.5-4.9) Magnesium Level 2.8 MG/DL (1.8-2.4) H Total Bilirubin 0.4 MG/DL (0.2-1.0) Aspartate Amino Transf (AST/SGOT) 90 U/L (15-37) H Alanine Aminotransferase (ALT/SGPT) 124 U/L (12-78) H Alkaline Phosphatase 428 U/L (46-116) H C-Reactive Protein, Quantitative 16.2 mg/dL (0.00-0.90) H Total Protein 7.1 G/DL (6.4-8.2) Albumin 1.4 G/DL (3.4-5.0) L Globulin 5.7 g/dL Albumin/Globulin Ratio 0.2 (1.0-2.7) L POC Whole Blood Glucose 94 MG/DL (74-106) Plan Problems: (1) Leukocytosis Assessment & Plan: 54-year-old male multiple comorbidities admitted for abnormal chest x-ray potentially pneumonia leukocytosis abnormal labs. Patient identified to have a prior left BKA surgical sutures still in place as well as a surgical sacral wound with sutures in place. Considerations of dehiscence being identified and potential etiology of infection. After evaluation unlikely source of infection though the sacral wound was looked to be dehiscing at the inferior aspect. No acute surgical mention at this time We will discussed care plan with PCP Recommend follow-up with initial surgeon considerations of removal of surgical sutures Care plan initiated worsening lft's US ordered ? shayla monitor for bleeding from right chest wall cath change dressings Extensive airspace consolidations at the lung bases consistent with severe multifocal infiltrate. Associated, large bilateral pleural effusions. Evaluation of the abdominal viscera is markedly suboptimal due to poor CT technique and lack of intravenous contrast. No definite hepatic lesion. No definite cholelithiasis. Mild colon wall thickening. The spleen, pancreas, and adrenal glands are not visualized well enough reliable assessment. No definite hydronephrosis. The kidneys are hyperdense, correlate for medical renal disease. No nephrolithiasis. Sparrow catheter within a decompressed urinary bladder. Moderate diverticulosis, without acute diverticulitis. No small bowel obstruction. PEG tube presumably within the stomach. Atherosclerotic calcifications of the aorta. Low-attenuation of the intravascular blood pool, correlate for anemia. IVC filter, incidentally noted. Air within the subcutaneous fat overlying the sacrum with skin thickening, correlate with physical exam for sacral decubitus ulcer. Degenerative changes of the spine. Bilateral pars defects at L5 without anterolisthesis of L5 on S1. IMPRESSION: Extensive airspace consolidations at the lung bases consistent with severe multifocal infiltrate. Associated, large bilateral pleural effusions. Evaluation of the abdominal viscera is markedly suboptimal due to poor CT technique and lack of intravenous contrast. Moderate diverticulosis, without acute diverticulitis. No small bowel obstruction. PEG tube presumably within the stomach. Note, if there is suspicion for colitis consider repeat scan with improved CT technique/intravenous contrast. Mild gallbladder wall thickening without definite evidence of cholelithiasis. Air within the subcutaneous fat overlying the sacrum with skin thickening, correlate with physical exam for sacral decubitus ulcer. Bilateral pars defects at L5. The kidneys are hyperdense, correlate for medical renal disease.. There is prompt uptake within the liver with washout of radiotracer from the liver on subsequent imaging. There is excretion into the biliary ducts. Gallbladder activity is present in a timely fashion indicating patency of the cystic duct. Very scant bowel activity is demonstrated concerning for common bile duct obstruction or sphincter dysfunction. IMPRESSION: No evidence to suggest cholecystitis. Gallbladder activity is present in a timely fashion indicating patency of the cystic duct. Very little radiotracer noted in the small bowel. Correlate with LFTs as a degree of common bile duct obstruction or sphincter dysfunction not excluded. Consider further evaluation with MRCP. (2) Surgical wound dehiscence Assessment & Plan: Patient identified to have a left BKA surgical sutures in place flap looks like it is taken well no signs of infection at this time no signs of seroma hematoma or drainage. Unknown exact length or duration of potential prior left BKA and until then recommend leaving sutures in place as it may be too early though it does look well-healed. If able to obtain prior records we will be happy to remove sutures otherwise will need follow-up with primary surgeon furthermore patient identified to have a surgical wound in the sacral area seems he probably potentially had a stage IV sacral decubitus ulcer that had debridement and primary closure. Fortunately. Sutures are still in place and it looks like the inferior aspect may be slowly dehiscing. There is no significant drainage no foul odor no signs of active infection unknown if bone was palpable prior. Can consider removing surgical sutures but again would recommend obtaining prior records of possible prior to doing so. Also recommend following up with primary surgeon as this may need ongoing continued care. Will follow with recommendations and as information is available. Continue current care plan. Wash wounds daily with normal saline. Apply skin protectant Optifoam dressing. Turn every 2 hours. Offload pressure with pillows and air mattress. Nutritional optimization. Worsening leukocytosis. Patient continues to have dehiscence of the prior primarily closed sacral decubitus ulcer. The sutures are was nearly torn out and the wound is opening and saturating with stool with bowel movements now has rectal tube. Unfortunately I see significant concern given dehiscence and therefore sutures were cut at the bedside and wound immediately opened under some tension. Underlying Vicryl sutures identified. There is some backbleeding some granulation tissue but definitely no take or closure of the stage IV sacral decubitus ulcer that was identified. Nonexcisional debridement done with gauze and jorge layer of slough and biofilm was removed wound was cleaned packing dressings applied. No abscess no purulent drainage unlikely etiology of infection. (3) History of left below knee amputation (4) Malnutrition Assessment & Plan: DAILY ESTIMATED NEEDS: Needs based on Wound, critical care, underweight/ 55.5kg 25-33 (25-35 w/ HD) kcals/kg 6960-5800 (4034-8526) total kcals 1.25-2 g protein/kg 69-111 g total protein 25-30 mL/kg 5331-1710 total fluid mLs NUTRITION DIAGNOSIS: * Swallowing difficulty R/T respiratory status as evidenced by pt is trach/vent dep, PEG dep. CURRENT TF: Nepro @ 40ml/hr x24 hrs ENTERAL NUTRITION RECOMMENDATIONS: Nepro @ 40ml/hr x 24 hrs to provide 960ml, 1728kcal, 78g prot, 698ml free water * Maintain current TF * HOB over 30 degrees/ water flush per MD ADDITIONAL RECOMMENDATIONS: * Per SNF: HT=69" [id number] -> rec daily calibrated bedscale wt * Monitor lytes: elev K-> now wnl, phos now low * Wound healing: RANDY BID + Nephrovite 1 tab qdaily * Monitor for bm, last bm 06/19, now 06/24 * W/ HD rec to add Prosource 1 pack qdaily for added 11g pro/day. (5) Anemia (6) KERRI (acute kidney injury) (7) Acute respiratory failure (8) Hyperkalemia (9) Anemia (10) Abnormal laboratory test result (11) Chronic respiratory failure (12) Hyperglycemia (13) Hypothyroidism Azar Mares Jul 05, 2020 14:43
--- NOTE | 2020-07-05 15:23 | Cardiac Electrophysiology PN ---
Assessment/Plan Assessment/Plan 1. Vent-dependent respirator failure. S/P tracheostomy. On 50% Fio2 Chest x-ray extensive bilateral pneumonia or ARDS. Off isolation EF 50%. Ruled out for SC On iv Abx 2. Sinus Tachycardia, likely due to respiratory failure and sepsis 3. Right femoral vein DVT. S/P IVC filter 06/18 4. Dysphagia, status post PEG placement. 5. Renal failure. S/P Right IJ Iron and on HD by Dr. Honeycutt. Next HD tomorrow 6. Severe anemia, S/P multiple PRBCs for hematuria 7. High LFTs, s/p CT abdomen and pelvis and HIDA FU Dr Stringer 8. Transient bradycardia, resolved DW RN and Dr Honeycutt Subjective Subjective On the Vent off isolation. On 45% Fio2 and PEEP 5. S/P IVC filter S/P Right IJ Iron and first HD 06/21/20 Had BLUING OVEN TENDER as HR dropped to 30 at 4 am 06/25/20 Got PRBC 06/27 and 06/28 as Hb dropped to 5.6 likley due to hematuria Opens eyes in restraints in NAD Objective Last 24 Hour Vital Signs Date Time Temp Pulse Resp B/P (MAP) Pulse Ox O2 Delivery O2 Flow Rate FiO2 07/05/20 12:00 66 07/05/20 12:00 Mechanical Ventilator 07/05/20 12:00 45 07/05/20 12:00 97.2 65 18 137/70 (92) 99 07/05/20 11:10 65 20 45 07/05/20 08:00 97.0 69 18 141/73 (95) 99 07/05/20 08:00 Mechanical Ventilator 07/05/20 08:00 45 07/05/20 08:00 69 07/05/20 07:10 70 19 45 07/05/20 04:00 Mechanical Ventilator 07/05/20 04:00 45 07/05/20 04:00 97.2 72 18 141/73 (95) 96 07/05/20 04:00 76 07/05/20 02:44 74 19 45 07/05/20 00:00 75 07/05/20 00:00 97.4 76 22 147/81 (103) 99 07/05/20 00:00 Mechanical Ventilator 07/05/20 00:00 45 07/04/20 23:21 75 17 45 07/04/20 20:00 96.4 67 20 153/74 (100) 97 07/04/20 20:00 45 07/04/20 20:00 65 07/04/20 20:00 Mechanical Ventilator 07/04/20 18:52 67 19 45 07/04/20 16:00 97.1 63 17 117/71 (86) 98 07/04/20 16:00 64 07/04/20 16:00 Mechanical Ventilator 07/04/20 16:00 45 Intake and Output 07/04/20 07/05/20 19:00 07:00 Intake Total 860 ml Output Total 1500 ml Balance -640 ml Free Water 250 ml IV Total 110 ml Tube Feeding 500 ml Output Urine Total 400 ml Stool Total 100 ml Hemodialysis UF 1000 ml Laboratory Tests Test 07/04/20 17:48 07/04/20 18:25 07/04/20 23:23 07/05/20 05:05 POC Whole Blood Glucose 127 MG/DL (74-106) H 122 MG/DL (74-106) H 154 MG/DL (74-106) H Random Vancomycin Level 18.9 ug/mL Test 07/05/20 07:25 07/05/20 07:55 07/05/20 11:55 Arterial Blood pH 7.252 (7.350-7.450) Arterial Blood Partial Pressure CO2 63.9 mmHg (35.0-45.0) *H Arterial Blood Partial Pressure O2 101.0 mmHg (75.0-100.0) H Arterial Blood HCO3 27.5 mmol/L (22.0-26.0) H Arterial Blood Oxygen Saturation 97.4 % (95-100) Arterial Blood Base Excess -0.1 (-2-2) Joe Test Positive White Blood Count 10.1 K/UL (4.8-10.8) Red Blood Count 2.49 M/UL (4.70-6.10) L Hemoglobin 7.5 G/DL (14.2-18.0) L Hematocrit 22.4 % (42.0-52.0) L Mean Corpuscular Volume 90 FL (80-99) Mean Corpuscular Hemoglobin 30.1 PG (27.0-31.0) Mean Corpuscular Hemoglobin Concent 33.5 G/DL (32.0-36.0) Red Cell Distribution Width 15.2 % (11.6-14.8) H Platelet Count 123 K/UL (150-450) L Mean Platelet Volume 9.8 FL (6.5-10.1) Neutrophils (%) (Auto) % (45.0-75.0) Lymphocytes (%) (Auto) % (20.0-45.0) Monocytes (%) (Auto) % (1.0-10.0) Eosinophils (%) (Auto) % (0.0-3.0) Basophils (%) (Auto) % (0.0-2.0) Differential Total Cells Counted 100 Neutrophils % (Manual) 78 % (45-75) H Lymphocytes % (Manual) 9 % (20-45) L Monocytes % (Manual) 2 % (1-10) Eosinophils % (Manual) 11 % (0-3) H Basophils % (Manual) 0 % (0-2) Band Neutrophils 0 % (0-8) Platelet Estimate Decreased L Platelet Morphology Normal Anisocytosis 1+ Sodium Level 134 MMOL/L (136-145) L Potassium Level 4.7 MMOL/L (3.5-5.1) Chloride Level 100 MMOL/L (98-107) Carbon Dioxide Level 29 MMOL/L (21-32) Blood Urea Nitrogen 61 mg/dL (7-18) H Creatinine 3.6 MG/DL (0.55-1.30) H Estimat Glomerular Filtration Rate 21.6 mL/min (>60) Glucose Level 77 MG/DL (74-106) Uric Acid 3.3 MG/DL (2.6-7.2) Calcium Level 8.4 MG/DL (8.5-10.1) L Phosphorus Level 3.2 MG/DL (2.5-4.9) Magnesium Level 2.8 MG/DL (1.8-2.4) H Total Bilirubin 0.4 MG/DL (0.2-1.0) Aspartate Amino Transf (AST/SGOT) 90 U/L (15-37) H Alanine Aminotransferase (ALT/SGPT) 124 U/L (12-78) H Alkaline Phosphatase 428 U/L (46-116) H C-Reactive Protein, Quantitative 16.2 mg/dL (0.00-0.90) H Total Protein 7.1 G/DL (6.4-8.2) Albumin 1.4 G/DL (3.4-5.0) L Globulin 5.7 g/dL Albumin/Globulin Ratio 0.2 (1.0-2.7) L POC Whole Blood Glucose 94 MG/DL (74-106) Microbiology Date/Time Source Procedure Growth Status 07/03/20 17:40 Sputum Gram Stain - Final Resulted 07/03/20 17:40 Sputum Culture - Preliminary Gram Negative Minh Resulted Objective HEAD AND NECK: Status post tracheostomy. Right IJ Iron in place LUNGS: Coarse rhonchi and basilar rales. CARDIOVASCULAR: Irregular S1 and S2 with no gallop. ABDOMEN: Soft. Status post G-tube. EXTREMITIES: No pitting edema. Lance Mcguire MD Jul 05, 2020 15:23
--- NOTE | 2020-07-05 15:42 | Nephrology Progress Note ---
Assessment/Plan Problem List: (1) KERRI (acute kidney injury) (2) Acute respiratory failure (3) Chronic respiratory failure (4) Anemia (5) Hyperkalemia Assessment Acute on chronic renal failure Anemia Respiratory failure acute on chronic Respiratory acidosis and hypoxia Hyperkalemia Plan July 05: Labs reviewed. Dialyzed yesterday. Electrolytes and renal parameters stable. Continue per consultants. Continue dialysis as needed. July 04: Labs reviewed. Due for dialysis today. Continue to monitor electrolytes and hemoglobin hematocrit. Continue per consultants. July 03: Lab reviewed. Will defer dialysis for July 04. Some blood oozing from the catheter site. General surgery to be informed. Electrolytes stable. Continue as is. July 02: Labs reviewed. Due for dialysis tomorrow. Hemoglobin higher. Stable electrolytes. Continue per consultants. July 01: Labs reviewed. Dialyzed yesterday. Patient has a permacath. Continue per consultants. Worsening anemia noted, deferred to lead data entry operator. June 30: Labs reviewed. Due for dialysis today. Patient appears to be needing hemodialysis for sometimes incoming future. Will arrange for placement of a tunneled catheter. Continue per consultants. Anemia management per lead data entry operator. June 29: Labs reviewed. Hemoglobin is higher. Next hemodialysis tomorrow June 30. Continue per consultants. June 28: Labs reviewed. Last dialyzed June 26. Hemoglobin remains low. Defer transfusion and work-up to lead data entry operator. Continue to follow-up renal parameters. June 27: Labs reviewed. Dialyzed yesterday. Hemoglobin low. Due for transfusion. Continue to monitor renal parameters and hemoglobin and h ematocrit. June 26: Labs reviewed. Due for dialysis today. Continue per consultants. Continue to monitor liver enzymes. June 25: Labs reviewed. Will dialyze tomorrow. Continue per consultants. Check liver function enzymes. June 24: Dialyzed yesterday. Labs reviewed. Medication list reviewed. Liver enzymes remains elevated. Continue to monitor electrolytes renal parameters and LFTs. Hemodialysis in a.m. if needed. June 23: Patient will be dialyzed today again. Labs reviewed. Serum creatinine higher. Elevated liver enzymes persist. Patient full code. Continue per consultants. June 22: Patient dialyzed yesterday. Labs reviewed. Liver function tests and enzymes are elevated. Continue to monitor renal parameters and LFTs. C ontinue per consultants. Patient full code. June 21: Patient due for dialysis today. Labs and medication list reviewed. Discussed with RN. Continue to monitor renal parameters. June 20: Patient had an episode of bradycardia last night. Serum creatinine rising. Patient continues to have respiratory acidosis. Discussed with RN Varun. Will order non tunneled dialysis catheter placement for initiation of dialysis treatment due to acute renal failure. Patient remains full code. I favor comfort care if bioethics consultation is sought and physicians on the team agreeable. June 19: No CHEM panel today. Low hemoglobin as of yesterday's lab results. Anemia management per Dr. Cueva. Continue to monitor renal parameters. June 18: Labs are reviewed. Hemoglobin lower. Creatinine higher. ABG not done yet. Patient full code. Continue per consultants. June 17: Labs reviewed. Hemoglobin low. Creatinine up to 3. Phosphorus levels elevated. Will start Amphojel via GT tube as a phosphorus binder. Monitor renal parameters. Check ABG. Continue per consultants. June 16: Labs reviewed. Serum creatinine mariana to 2.6. Abnormal electrolytes now normalized. Continue to monitor renal parameters and avoid nephrotoxic's. Continue to adjust pulmonary status as possible. June 15: ABG pH of 7.1. 2D echo suggestive of ejection fraction of 50%. Labs reviewed. Serum creatinine mariana. Will hold IV Lasix. Will give Kayexalate for high potassium and 1 amp of sodium bicarb. Albumin IV bolus given. Continue per consultants. Continue to monitor renal parameters. Kidney ultrasound ordered. June 14: As follow Pulmonary evaluation Sparrow catheter Hold IV fluid IV fluid, until 2D echo results available Kayexalate for high potassium IV Protonix 2D echocardiogram Anemia work-up More labs ordered Subjective ROS Limited/Unobtainable: Yes Objective Objective Last 24 Hour Vital Signs Date Time Temp Pulse Resp B/P (MAP) Pulse Ox O2 Delivery O2 Flow Rate FiO2 07/05/20 12:00 66 07/05/20 12:00 Mechanical Ventilator 07/05/20 12:00 45 07/05/20 12:00 97.2 65 18 137/70 (92) 99 07/05/20 11:10 65 20 45 07/05/20 08:00 97.0 69 18 141/73 (95) 99 07/05/20 08:00 Mechanical Ventilator 07/05/20 08:00 45 07/05/20 08:00 69 07/05/20 07:10 70 19 45 07/05/20 04:00 Mechanical Ventilator 07/05/20 04:00 45 07/05/20 04:00 97.2 72 18 141/73 (95) 96 07/05/20 04:00 76 07/05/20 02:44 74 19 45 07/05/20 00:00 75 07/05/20 00:00 97.4 76 22 147/81 (103) 99 07/05/20 00:00 Mechanical Ventilator 07/05/20 00:00 45 07/04/20 23:21 75 17 45 07/04/20 20:00 96.4 67 20 153/74 (100) 97 07/04/20 20:00 45 07/04/20 20:00 65 07/04/20 20:00 Mechanical Ventilator 07/04/20 18:52 67 19 45 07/04/20 16:00 97.1 63 17 117/71 (86) 98 07/04/20 16:00 64 07/04/20 16:00 Mechanical Ventilator 07/04/20 16:00 45 Intake and Output 07/04/20 07/05/20 19:00 07:00 Intake Total 860 ml Output Total 1500 ml Balance -640 ml Free Water 250 ml IV Total 110 ml Tube Feeding 500 ml Output Urine Total 400 ml Stool Total 100 ml Hemodialysis UF 1000 ml Laboratory Tests 07/04/20 17:48: POC Whole Blood Glucose 127H 07/04/20 18:25: Random Vancomycin Level 18.9 07/04/20 23:23: POC Whole Blood Glucose 122H 07/05/20 05:05: POC Whole Blood Glucose 154H 07/05/20 07:25: Arterial Blood pH 7.252L, Arterial Blood Partial Pressure CO2 63.9*H, Arterial Blood Partial Pressure O2 101.0H, Arterial Blood HCO3 27.5H, Arterial Blood Oxygen Saturation 97.4, Arterial Blood Base Excess -0.1, Joe Test Positive 07/05/20 07:55: White Blood Count 10.1, Red Blood Count 2.49L, Hemoglobin 7.5L, Hematocrit 22.4L , Mean Corpuscular Volume 90, Mean Corpuscular Hemoglobin 30.1, Mean Corpuscular Hemoglobin Concent 33.5, Red Cell Distribution Width 15.2H, Platelet Count 123L, Mean Platelet Volume 9.8, Neutrophils (%) (Auto) , Lymphocytes (%) (Auto) , Monocytes (%) (Auto) , Eosinophils (%) (Auto) , Basophils (%) (Auto) , Differential Total Cells Counted 100, Neutrophils % (Manual) 78H, Lymphocytes % (Manual) 9L, Monocytes % (Manual) 2, Eosinophils % (Manual) 11H, Basophils % (Manual) 0, Band Neutrophils 0, Platelet Estimate DecreasedL, Platelet Morphology Normal, Anisocytosis 1+, Sodium Level 134L, Potassium Level 4.7, Chloride Level 100, Carbon Dioxide Level 29, Blood Urea Nitrogen 61H, Creatinine 3.6H, Estimat Glomerular Filtration Rate 21.6, Glucose Level 77, Uric Acid 3.3, Calcium Level 8.4L, Phosphorus Level 3.2, Magnesium Level 2.8H, Total Bilirubin 0.4, Aspartate Amino Transf (AST/SGOT) 90H, Alanine Aminotransferase (ALT/SGPT) 124H, Alkaline Phosphatase 428H, C-Reactive Protein, Quantitative 16.2H, Total Protein 7.1, Albumin 1.4L, Globulin 5.7, Albumin/Globulin Ratio 0.2L 07/05/20 11:55: POC Whole Blood Glucose 94 Height (Feet): 5 Height (Inches): 8.00 Weight (Pounds): 143 General Appearance: no apparent distress EENT: other - Trach to vent Cardiovascular: normal rate Respiratory/Chest: decreased breath sounds Abdomen: soft Leonidas Honeycutt MD Jul 05, 2020 15:42
[2020-07-05 16:00] VITALS: BP 155/84
--- NOTE | 2020-07-05 16:20 | NUR ---
NURSE NOTES: Pt awake in bed , watching TV. No respiratory distress/SOB noted. will continue to monitor.
--- NOTE | 2020-07-05 16:47 | Infectious Diseases Prog Note ---
Assessment/Plan Assessment/Plan IMPRESSION: Pneumonia with Pseudomonas & Stenotrophomonas treated Hypothermia COVID19 X 2: negative Ventilator-dependent respiratory failure, Diabetes mellitus type 2, Hypertension, History of left BKA, Hypertension, anemia, Major depression, Pressure ulcer, Elevated transaminase, Hyperkalemia. Anemia R leg DVT s/p IVC filter Sacral osteomyelitis Severe anemia Acute renal failure ESRD Hypercapnic respiratory failure Hematuria Thrombocytopenia Diverticulosis Diarrhea, C. difficile negative RECOMMENDATION: Continue Vancomycin until 07/18 Subjective ROS Limited/Unobtainable: Yes Constitutional: Denies: fever Neurologic: Reports: confusion, other - on restraint Allergies: Coded Allergies: No Known Allergies (Unverified , 06/13/20) Objective Last 24 Hour Vital Signs Date Time Temp Pulse Resp B/P (MAP) Pulse Ox O2 Delivery O2 Flow Rate FiO2 07/05/20 16:00 45 07/05/20 16:00 Mechanical Ventilator 07/05/20 16:00 68 07/05/20 16:00 97.7 68 20 155/84 (107) 98 07/05/20 12:00 66 07/05/20 12:00 Mechanical Ventilator 07/05/20 12:00 45 07/05/20 12:00 97.2 65 18 137/70 (92) 99 07/05/20 11:10 65 20 45 07/05/20 08:00 97.0 69 18 141/73 (95) 99 07/05/20 08:00 Mechanical Ventilator 07/05/20 08:00 45 07/05/20 08:00 69 07/05/20 07:10 70 19 45 07/05/20 04:00 Mechanical Ventilator 07/05/20 04:00 45 07/05/20 04:00 97.2 72 18 141/73 (95) 96 07/05/20 04:00 76 07/05/20 02:44 74 19 45 07/05/20 00:00 75 07/05/20 00:00 97.4 76 22 147/81 (103) 99 07/05/20 00:00 Mechanical Ventilator 07/05/20 00:00 45 07/04/20 23:21 75 17 45 07/04/20 20:00 96.4 67 20 153/74 (100) 97 07/04/20 20:00 45 07/04/20 20:00 65 07/04/20 20:00 Mechanical Ventilator 07/04/20 18:52 67 19 45 Height (Feet): 5 Height (Inches): 8.00 Weight (Pounds): 143 HEENT: mucous membranes moist, status post trach Respiratory/Chest: other - on ventilator Cardiovascular: normal rate Abdomen: soft, non tender, other - GT feeding Extremities: no edema, other - Left BKA Skin: other - sacral surgical wound Neurologic/Psychiatric: other - drowsy Microbiology Date/Time Source Procedure Growth Status 07/03/20 17:40 Sputum Gram Stain - Final Resulted 07/03/20 17:40 Sputum Culture - Preliminary Gram Negative Minh Resulted Laboratory Tests Test 07/04/20 17:48 07/04/20 18:25 07/04/20 23:23 07/05/20 05:05 POC Whole Blood Glucose 127 MG/DL (74-106) H 122 MG/DL (74-106) H 154 MG/DL (74-106) H Random Vancomycin Level 18.9 ug/mL Test 07/05/20 07:25 07/05/20 07:55 07/05/20 11:55 Arterial Blood pH 7.252 (7.350-7.450) Arterial Blood Partial Pressure CO2 63.9 mmHg (35.0-45.0) *H Arterial Blood Partial Pressure O2 101.0 mmHg (75.0-100.0) H Arterial Blood HCO3 27.5 mmol/L (22.0-26.0) H Arterial Blood Oxygen Saturation 97.4 % (95-100) Arterial Blood Base Excess -0.1 (-2-2) Joe Test Positive White Blood Count 10.1 K/UL (4.8-10.8) Red Blood Count 2.49 M/UL (4.70-6.10) L Hemoglobin 7.5 G/DL (14.2-18.0) L Hematocrit 22.4 % (42.0-52.0) L Mean Corpuscular Volume 90 FL (80-99) Mean Corpuscular Hemoglobin 30.1 PG (27.0-31.0) Mean Corpuscular Hemoglobin Concent 33.5 G/DL (32.0-36.0) Red Cell Distribution Width 15.2 % (11.6-14.8) H Platelet Count 123 K/UL (150-450) L Mean Platelet Volume 9.8 FL (6.5-10.1) Neutrophils (%) (Auto) % (45.0-75.0) Lymphocytes (%) (Auto) % (20.0-45.0) Monocytes (%) (Auto) % (1.0-10.0) Eosinophils (%) (Auto) % (0.0-3.0) Basophils (%) (Auto) % (0.0-2.0) Differential Total Cells Counted 100 Neutrophils % (Manual) 78 % (45-75) H Lymphocytes % (Manual) 9 % (20-45) L Monocytes % (Manual) 2 % (1-10) Eosinophils % (Manual) 11 % (0-3) H Basophils % (Manual) 0 % (0-2) Band Neutrophils 0 % (0-8) Platelet Estimate Decreased L Platelet Morphology Normal Anisocytosis 1+ Sodium Level 134 MMOL/L (136-145) L Potassium Level 4.7 MMOL/L (3.5-5.1) Chloride Level 100 MMOL/L (98-107) Carbon Dioxide Level 29 MMOL/L (21-32) Blood Urea Nitrogen 61 mg/dL (7-18) H Creatinine 3.6 MG/DL (0.55-1.30) H Estimat Glomerular Filtration Rate 21.6 mL/min (>60) Glucose Level 77 MG/DL (74-106) Uric Acid 3.3 MG/DL (2.6-7.2) Calcium Level 8.4 MG/DL (8.5-10.1) L Phosphorus Level 3.2 MG/DL (2.5-4.9) Magnesium Level 2.8 MG/DL (1.8-2.4) H Total Bilirubin 0.4 MG/DL (0.2-1.0) Aspartate Amino Transf (AST/SGOT) 90 U/L (15-37) H Alanine Aminotransferase (ALT/SGPT) 124 U/L (12-78) H Alkaline Phosphatase 428 U/L (46-116) H C-Reactive Protein, Quantitative 16.2 mg/dL (0.00-0.90) H Total Protein 7.1 G/DL (6.4-8.2) Albumin 1.4 G/DL (3.4-5.0) L Globulin 5.7 g/dL Albumin/Globulin Ratio 0.2 (1.0-2.7) L POC Whole Blood Glucose 94 MG/DL (74-106) Current Medications Medications (Trade) Dose Ordered Sig/Maryjane Route PRN Reason Start Time Stop Time Status Last Admin Dose Admin Acetaminophen (Tylenol) 650 mg Q4H PRN GT Mild Pain (Pain Scale 1-3) 06/18/20 23:00 07/18/20 22:59 Acetaminophen (Tylenol) 650 mg Q4HR PRN GT FEVER 06/14/20 09:45 07/14/20 09:44 06/19/20 20:45 Aluminum Hydroxide (Amphojel) 1,920 mg Q6H GT 06/17/20 10:00 07/17/20 09:59 07/05/20 09:08 Ascorbic Acid (Vitamin C) 500 mg DAILY GT 07/01/20 09:00 07/31/20 08:59 07/05/20 09:08 Chlorhexidine Gluconate (Inés-Hex 2%) 1 applic DAILY@1999 TOPIC 06/21/20 20:00 09/19/20 19:59 07/04/20 20:37 Dextrose (Dextrose 50%) 25 ml Q30M PRN IV Hypoglycemia 06/28/20 18:30 09/26/20 18:29 Dextrose (Dextrose 50%) 50 ml Q30M PRN IV Hypoglycemia 06/28/20 18:30 09/26/20 18:29 Epoetin Bonilla (Epoetin Bonilla(ESRD on dialysis)) 10,000 unit TUE-TUE-TUE SUBQ 07/02/20 21:00 09/16/20 20:59 07/04/20 21:45 Haloperidol Lactate (Haldol) 5 mg Q6H PRN IM Agitation 06/21/20 23:15 08/05/20 23:14 06/25/20 18:17 Insulin Aspart (NovoLOG) EVERY 6 HOURS SUBQ 06/29/20 00:00 09/27/20 00:00 07/05/20 05:09 Lansoprazole (Prevacid) 30 mg Q12HR GT 06/30/20 21:00 07/30/20 20:59 07/05/20 09:08 Levothyroxine Sodium (Synthroid) 88 mcg DAILY@0630 GT 07/03/20 06:30 08/02/20 06:29 07/05/20 06:36 Vancomycin HCl ([facility] pharmacy to dose) 1 ea DAILY PRN MISC Per rx protocol 06/27/20 11:30 07/18/20 23:59 Paul Amador MD Jul 05, 2020 16:47
--- NOTE | 2020-07-05 19:19 | NUR ---
NURSE HAND-OFF REPORT: Important Events on Shift: Abnormal ABG, reported to Dr. Villalobos Patient Status: stable Diet: Tube feeding Pending Orders: N/A Pending Results/Labs:morning labs Pending MD notification:N/A Latest Vital Signs: Temperature 97.7 , Pulse 68 , B/P 155 /84 , Respiratory Rate 20 , O2 SAT 98 , Mechanical Ventilator, O2 Flow Rate 15.0 . Vital Sign Comment: Stable EKG Rhythm: Sinus Rhythm Rhythm change?: N MD Notified?: N -Dr. Ruel BENDER Response: No New Orders Received Latest Santiago Fall Score: 95 Fall Risk: High Risk Safety Measures: Call light Within Reach, Bed Alarm Zone 2, Side Rails Side Rails x3, Bed position Low and Locked. Fall Precautions: Yellow Socks Yellow Gown Door Sign Patient Fall Education Report given to Juan Ramon Ramirez/RN.
[2020-07-05 20:00] VITALS: BP 145/77
[2020-07-05] MEDS: Dyna-Hex 2% Top Sol 2oz TOPIC SCH (20:59)
--- NOTE | 2020-07-05 21:00 | NUR ---
NURSE NOTES: Patient awake in bed , noted watching TV. No acute respiratory distress noted. Continue to monitor the patient.
[2020-07-05] MEDS ORDERED: Tubing IV Secondary IV ONE (21:22)
--- NOTE | 2020-07-05 22:05 | General Progress Note ---
Subjective Allergies: Coded Allergies: No Known Allergies (Unverified , 06/13/20) Subjective above noted stools liquid, in rectal tube brown tolerating TF LFT still elevated but slowly declining all liver serologic w/u except CMV PCR still pending Objective Last 24 Hour Vital Signs Date Time Temp Pulse Resp B/P (MAP) Pulse Ox O2 Delivery O2 Flow Rate FiO2 07/05/20 19:30 68 19 45 07/05/20 16:00 45 07/05/20 16:00 Mechanical Ventilator 07/05/20 16:00 68 07/05/20 16:00 97.7 68 20 155/84 (107) 98 07/05/20 15:10 68 23 45 07/05/20 12:00 66 07/05/20 12:00 Mechanical Ventilator 07/05/20 12:00 45 07/05/20 12:00 97.2 65 18 137/70 (92) 99 07/05/20 11:10 65 20 45 07/05/20 08:00 97.0 69 18 141/73 (95) 99 07/05/20 08:00 Mechanical Ventilator 07/05/20 08:00 45 07/05/20 08:00 69 07/05/20 07:10 70 19 45 07/05/20 04:00 Mechanical Ventilator 07/05/20 04:00 45 07/05/20 04:00 97.2 72 18 141/73 (95) 96 07/05/20 04:00 76 07/05/20 02:44 74 19 45 07/05/20 00:00 75 07/05/20 00:00 97.4 76 22 147/81 (103) 99 07/05/20 00:00 Mechanical Ventilator 07/05/20 00:00 45 07/04/20 23:21 75 17 45 Intake and Output 07/04/20 07/05/20 19:00 07:00 Intake Total 860 ml Output Total 1500 ml Balance -640 ml Free Water 250 ml IV Total 110 ml Tube Feeding 500 ml Output Urine Total 400 ml Stool Total 100 ml Hemodialysis UF 1000 ml Laboratory Tests 07/04/20 23:23: POC Whole Blood Glucose 122H 07/05/20 05:05: POC Whole Blood Glucose 154H 07/05/20 07:25: Arterial Blood pH 7.252L, Arterial Blood Partial Pressure CO2 63.9*H, Arterial Blood Partial Pressure O2 101.0H, Arterial Blood HCO3 27.5H, Arterial Blood Oxygen Saturation 97.4, Arterial Blood Base Excess -0.1, Joe Test Positive 07/05/20 07:55: White Blood Count 10.1, Red Blood Count 2.49L, Hemoglobin 7.5L, Hematocrit 22.4L , Mean Corpuscular Volume 90, Mean Corpuscular Hemoglobin 30.1, Mean Corpuscular Hemoglobin Concent 33.5, Red Cell Distribution Width 15.2H, Platelet Count 123L, Mean Platelet Volume 9.8, Neutrophils (%) (Auto) , Lymphocytes (%) (Auto) , Monocytes (%) (Auto) , Eosinophils (%) (Auto) , Basophils (%) (Auto) , Differential Total Cells Counted 100, Neutrophils % (Manual) 78H, Lymphocytes % (Manual) 9L, Monocytes % (Manual) 2, Eosinophils % (Manual) 11H, Basophils % (Manual) 0, Band Neutrophils 0, Platelet Estimate DecreasedL, Platelet Morphology Normal, Anisocytosis 1+, Sodium Level 134L, Potassium Level 4.7, Ch loride Level 100, Carbon Dioxide Level 29, Blood Urea Nitrogen 61H, Creatinine 3.6H, Estimat Glomerular Filtration Rate 21.6, Glucose Level 77, Uric Acid 3.3, Calcium Level 8.4L, Phosphorus Level 3.2, Magnesium Level 2.8H, Total Bilirubin 0.4, Aspartate Amino Transf (AST/SGOT) 90H, Alanine Aminotransferase (ALT/SGPT) 124H, Alkaline Phosphatase 428H, C-Reactive Protein, Quantitative 16.2H, Total Protein 7.1, Albumin 1.4L, Globulin 5.7, Albumin/Globulin Ratio 0.2L 07/05/20 11:55: POC Whole Blood Glucose 94 07/05/20 17:54: POC Whole Blood Glucose 130H Height (Feet): 5 Height (Inches): 8.00 Weight (Pounds): 143 Objective Debilitated elderly man NCAT supple Coarse BS RRR abd sofft, flat, (+) GT s/p LLE BKA Assessment/Plan Status: progressing Assessment/Plan: Assessment Abnormal LFT - improving (s/p US, CT, HIDA) - ? infectious hepatitis - Hep A and B negative - ? vascular - ? meds - ? other Gross hematuria - improved Acute anemia, ? urinary losses, ? GI loss ? surgical loss declining platelet count Recommendations - f/u CMV PCR - Unable to have MRCP due to vent - continue to hold seroquel - follow LFT and CBC - no plans for GI w/u, per family discussion - TF - Transfuse Fco Banerjee MD Jul 05, 2020 22:05
[2020-07-06] VITALS: BP 143/79
--- NOTE | 2020-07-06 | NUR ---
NURSE NOTES: Patient noted asleep. No acute distress noted. Tolerating vent settings well. Will continue to monitor.
--- NOTE | 2020-07-06 03:00 | NUR ---
NURSE NOTES: Patient awake in bed , watching TV. No respiratory distress/SOB noted. will continue to monitor.
[2020-07-06 04:00] VITALS: BP 133/73
[2020-07-06] MEDS: Aluminum Hydroxide Gel Susp 15ml GT SCH ×4 (04:06→21:28)
[2020-07-06] MEDS: NovoLOG Insulin Flexpen SUBQ SCH ×4 (06:00→23:55)
--- NOTE | 2020-07-06 07:30 | NUR ---
NURSE NOTES: Received report from MAX Ardon. The patient is resting on the bed without acute distress or shortness of breath. The patient is AOx2-3 but with on and off of confusion, but able to communicate via body language and asking verbal question. SR with HR of 60s on the monitoring coordinator. The patient is trach'ed and on ventilator on following setting and oxygen saturation is 100%: Shiley 8, C 18, TV 500, FiO2 50%, and PEEP 5. The patient's GT intact and patent and running Vital AF @ 50mL/hr per order. No residual noted. The patient has Sparrow and Rectal tube those are intact and patent and draining by gravity. The patient has R subclavian non-tunneled cath for HD access and R AC 20 and L hand 22G PIVs those are intact and patent. The patient's skin issue noted and dressing intact. The patient's bed in the lowest position, call light in reach, and fall and aspiration precaution reinforced. IV site intact and patent. Will follow up the lab and order. Will closely monitor the patient. Will continue plan of care. Addendum: 07/06/20 at 1601 by Clayton Murillo RN Skin issue noted and dressing intact.
--- NOTE | 2020-07-06 07:46 | NUR ---
NURSE HAND-OFF REPORT: Important Events on Shift: CHG bath Patient Status: Stable Diet: GT Pending Orders: Pending Results/Labs: Pending MD notification: Latest Vital Signs: Temperature 96.3 , Pulse 66 , B/P 133 /73 , Respiratory Rate 19 , O2 SAT 99 , Mechanical Ventilator, O2 Flow Rate 15.0 . Vital Sign Comment: EKG Rhythm: Sinus Rhythm Rhythm change?: N MD Notified?: N -Dr. Ruel BENDER Response: No New Orders Received Latest Santiago Fall Score: 95 Fall Risk: High Risk Safety Measures: Call light Within Reach, Bed Alarm Zone 2, Side Rails Side Rails x3, Bed position Low and Locked. Fall Precautions: Yellow Socks Yellow Gown Door Sign Patient Fall Education Report given to MAX Cervantes.
[2020-07-06 08:00] VITALS: BP 156/78
--- NOTE | 2020-07-06 08:00 | NUR ---
NURSE NOTES: Morning assessment done. Morning vital signs taken. The patient is stable at this time. Will continue plan of care. Addendum: 07/06/20 at 1544 by Clayton Murillo RN Dr. Apple ordered bilateral soft wrist restraints for pulling out neuropsychology medical consultant and history of fall. Will apply as ordered. Will continue plan of care.
[2020-07-06 08:16] LABS: ALBUMIN 1.4 G/DL (3.4-5.0); ALBUMIN/GLOBULIN RATIO 0.2 (1.0-2.7); BILIRUBIN,TOTAL 0.3 MG/DL (0.2-1.0); CALCIUM 8.2 MG/DL (8.5-10.1); CREATININE 4.1 MG/DL (0.55-1.30); PHOSPHORUS 3.5 MG/DL (2.5-4.9); POTASSIUM 5.1 MMOL/L (3.5-5.1)
--- NOTE | 2020-07-06 09:00 | NUR ---
NURSE NOTES: Dr. Villalobos was notified regarding the patient's mental status of drowsiness. Dr. Villalobos ordered stat ABG to be done. Notified the result. No new order at this time. Will continue plan of care.
--- NOTE | 2020-07-06 09:06 | NUR ---
RD ASSESSMENT & RECOMMENDATIONS SEE CARE ACTIVITY FOR COMPLETE ASSESSMENT DAILY ESTIMATED NEEDS: Needs based on Wound, critical care, underweight/ 55.5kg 25-33 (25-35 w/ HD) kcals/kg [id number] ([id number]) total kcals 1.25-2 g protein/kg 69-111 g total protein 25-30 mL/kg 7263-1359 total fluid mLs NUTRITION DIAGNOSIS: * Swallowing difficulty R/T respiratory status as evidenced by pt is trach/vent dep, PEG dep. CURRENT TF: VITAL 1.2 @50 ml ENTERAL NUTRITION RECOMMENDATIONS: Nepro @ 45ml/hr x 22 hrs (On Synthroid) to provide 960ml, 1728kcal, 78g prot, 698ml free water * Pt now on Synthroid, TF to be held 1 hr before and after Synthroid * Increase goal rate to 45ml/hr to better meet est needs * HOB over 30 degrees/ water flush per MD TF changed to VITAL 1.2 per GI for OBS+. Rec goal of 55ml/hr x22 hrs to better meet est kcal needs, provides: 1210ml, 1452 kcal, 91g pro, 981ml free H2O -> Monitor lytes and need for renal formula. ADDITIONAL RECOMMENDATIONS: * Per SNF: HT=69" [id number] -> rec daily calibrated bedscale wt * Monitor lytes: elev K-> now wnl, phos wnl (HD pending today) * Wound healing: RANDY BID + Nephrovite 1 tab qdaily * Monitor lytes w/ Vital 1.2/ need for renal formula K 5.1, will monitor trend.
[2020-07-06] MEDS: Ascorbic Acid 500mg tab GT SCH (09:11)
--- NOTE | 2020-07-06 09:49 | Hematology/Onc Progress Note ---
Assessment/Plan Assessment/Plan ASSESSMENT AND PLAN: #. Anemia that is likely due to chronic disease, r/o gi bleeding --> anemia panel has been reviewed, ferritin is >2000 --> no e/o hemolysis is noted --> transfuse on prn basis --> blood consent has been signed --> hgb 7.4-->7.4-->7-->6.7-->8-->7.5-->8.4-->9.1->8.1-->5.6->7.4-->7-->6.6->8-->7.5 --> folic acid is wnl --> 1 unit prbc 06/18 --> epogen has been started # Acute DVT in the distal right common femoral vein and profunda femoris vein. --> DUPLEX. Acute DVT in the distal right common femoral vein and profunda femoris vein. 2. No evidence of left lower extremity DVT. --> cannot anticoagulate at this time --> 06/17 s/p ivc filter placement --> hold off anticoag # Leukocytosis is likely due to b/l infiltrates --> on abx as per id -> ABX yolis/vanc-->yolis/linezolid--> yolis/levaq-->linezolid->vanc --> continue trend --> wbc 15-->12->9.5-->13-->14 # Thrombocytopenia likely due to infection --> plt 82-->67->78 --> hep and hiv neg # Respiratory failure in this patient with vent-dependent respiratory failure. 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 # Dysphagia --> status post PEG placement. # Renal failure. -> per Dr. Honeycutt. # Hyperkalemia and kayxelate as needed. # Dvt ppx scds Appreciate consultation and angela RN Subjective Constitutional: Denies: no symptoms, chills, fever, malaise, weakness, other HEENT: Denies: no symptoms, eye pain, blurred vision, tearing, double vision, ear pain, ear discharge, nose pain, nose congestion, throat pain, throat swelling, mouth pain, mouth swelling, other Cardiovascular: Denies: no symptoms, chest pain, edema, irregular heart rate, lightheadedness, palpitations, syncope, other Gastrointestinal/Abdominal: Denies: no symptoms, abdomen distended, abdominal pain, black stools, tarry stools, blood in stool, constipated, diarrhea, difficulty swallowing, nausea, poor appetite, poor fluid intake, rectal bleeding, vomiting, other Genitourinary: Denies: no symptoms, burning, discharge, frequency, flank pain, hematuria, incontinence, pain, urgency, other Endocrine: Denies: no symptoms, excessive sweating, flushing, intolerance to cold, intolerance to heat, increased hunger, increased thirst, increased urine, unexplained weight gain, unexplained weight loss, other Hematologic/Lymphatic: Denies: no symptoms, anemia, easy bleeding, easy bruising, adenopathy, other Allergies: Coded Allergies: No Known Allergies (Unverified , 06/13/20) Subjective 06/16 meds noted, labs reviewed, vent to trach, for ivc filter potentially 06/17 labs noted, meds reviewed, for ivc filter once covid neg 06/18 labs are noted, on vent and gt, 1 unit prbc ordered 06/19 labs pending, is s/p ivcf placement yesterday 06/20 for hd nontunneled cathter placement, no bleeding 06/22 labs noted, no bleeding, found down overnight, got ct brain, is neg 06/23 overnight is agitated and requiring restraints 06/24 labs noted, meds reviewed, hgb pending for am, restraints 06/25 labs reviewed, meds noted, no bleeding, hgb improved 06/26 per Rn, with rapid response overnight hr is improved, meds noted 06/27 labs reviewed, meds noted, no bleeding, hgb 5.6, wbc elevated, to get 2 unit prbc 06/29 on vanc, wbc 13, hgb 7.3, plt 88, on vanc 06/30 meds reviewed, hgb at 7, occult +, as per gi care, with diarrhea 07/01 plt 67, hgb 6.6, to get 2 units prbc, angela RN at bedside 07/02 [facility] permacat reviewed, minimal bleeding, meds noted 07/03 gt feeds, meds noted, no bleeding, labs reviewed 07/04 awake, alert is on ivf, meds noted, labs reviewed 07/06 labs reviewed, meds noted, gt, watching tv Objective Objective Current Medications Medications (Trade) Dose Ordered Sig/Maryjane Route PRN Reason Start Time Stop Time Status Last Admin Dose Admin Acetaminophen (Tylenol) 650 mg Q4H PRN GT Mild Pain (Pain Scale 1-3) 06/18/20 23:00 07/18/20 22:59 Acetaminophen (Tylenol) 650 mg Q4HR PRN GT FEVER 06/14/20 09:45 07/14/20 09:44 06/19/20 20:45 Aluminum Hydroxide (Amphojel) 1,920 mg Q6H GT 06/17/20 10:00 07/17/20 09:59 07/06/20 09:11 Ascorbic Acid (Vitamin C) 500 mg DAILY GT 07/01/20 09:00 07/31/20 08:59 07/06/20 09:11 Chlorhexidine Gluconate (Inés-Hex 2%) 1 applic DAILY@1999 TOPIC 06/21/20 20:00 09/19/20 19:59 07/05/20 20:59 Dextrose (Dextrose 50%) 25 ml Q30M PRN IV Hypoglycemia 06/28/20 18:30 09/26/20 18:29 Dextrose (Dextrose 50%) 50 ml Q30M PRN IV Hypoglycemia 06/28/20 18:30 09/26/20 18:29 Epoetin Bonilla (Epoetin Bonilla(ESRD on dialysis)) 10,000 unit TUE-TUE-TUE SUBQ 07/02/20 21:00 09/16/20 20:59 07/04/20 21:45 Haloperidol Lactate (Haldol) 5 mg Q6H PRN IM Agitation 06/21/20 23:15 08/05/20 23:14 06/25/20 18:17 Insulin Aspart (NovoLOG) EVERY 6 HOURS SUBQ 06/29/20 00:00 09/27/20 00:00 07/05/20 23:59 Lansoprazole (Prevacid) 30 mg Q12HR GT 06/30/20 21:00 07/30/20 20:59 07/06/20 09:11 Levothyroxine Sodium (Synthroid) 88 mcg DAILY@0630 GT 07/03/20 06:30 08/02/20 06:29 07/06/20 06:00 Vancomycin HCl ([facility] pharmacy to dose) 1 ea DAILY PRN MISC Per rx protocol 06/27/20 11:30 07/18/20 23:59 Last 24 Hour Vital Signs Date Time Temp Pulse Resp B/P (MAP) Pulse Ox O2 Delivery O2 Flow Rate FiO2 07/06/20 08:00 64 07/06/20 07:19 66 19 45 07/06/20 04:00 45 07/06/20 04:00 69 07/06/20 04:00 Mechanical Ventilator 07/06/20 04:00 96.3 68 19 133/73 (93) 99 07/06/20 03:30 68 19 45 07/06/20 00:00 Mechanical Ventilator 07/06/20 00:00 96.8 73 24 143/79 (100) 99 07/05/20 23:30 73 22 45 07/05/20 20:00 Mechanical Ventilator 07/05/20 20:00 45 07/05/20 20:00 69 07/05/20 20:00 96.8 68 18 145/77 (99) 97 07/05/20 19:30 68 19 45 07/05/20 16:00 45 07/05/20 16:00 Mechanical Ventilator 07/05/20 16:00 68 07/05/20 16:00 97.7 68 20 155/84 (107) 98 07/05/20 15:10 68 23 45 07/05/20 12:00 66 07/05/20 12:00 Mechanical Ventilator 07/05/20 12:00 45 07/05/20 12:00 97.2 65 18 137/70 (92) 99 07/05/20 11:10 65 20 45 07/05/20 08:00 97.0 69 18 141/73 (95) 99 07/05/20 08:00 Mechanical Ventilator 07/05/20 08:00 45 07/05/20 08:00 69 07/05/20 07:10 70 19 45 07/05/20 04:00 Mechanical Ventilator 07/05/20 04:00 45 07/05/20 04:00 97.2 72 18 141/73 (95) 96 07/05/20 04:00 76 07/05/20 02:44 74 19 45 07/05/20 00:00 75 07/05/20 00:00 97.4 76 22 147/81 (103) 99 07/05/20 00:00 Mechanical Ventilator 07/05/20 00:00 45 07/04/20 23:21 75 17 45 07/04/20 20:00 96.4 67 20 153/74 (100) 97 07/04/20 20:00 45 07/04/20 20:00 65 07/04/20 20:00 Mechanical Ventilator 07/04/20 18:52 67 19 45 07/04/20 16:00 97.1 63 17 117/71 (86) 98 07/04/20 16:00 64 07/04/20 16:00 Mechanical Ventilator 07/04/20 16:00 45 07/04/20 15:16 65 18 45 07/04/20 12:00 96.7 63 18 121/75 (90) 99 07/04/20 12:00 62 07/04/20 12:00 Mechanical Ventilator 07/04/20 12:00 45 07/04/20 11:10 61 20 45 Intake and Output 07/05/20 07/06/20 19:00 07:00 Intake Total 650 ml 800 ml Output Total 100 ml 200 ml Balance 550 ml 600 ml Free Water 50 ml 200 ml Tube Feeding 600 ml 600 ml Output Urine Total 100 ml Stool Total 100 ml 100 ml Labs Test 07/03/20 11:16 07/03/20 16:15 07/03/20 23:59 07/04/20 04:05 POC Whole Blood Glucose 128 MG/DL (74-106) 110 MG/DL (74-106) 164 MG/DL (74-106) White Blood Count 14.1 K/UL (4.8-10.8) Red Blood Count 2.48 M/UL (4.70-6.10) Hemoglobin 7.4 G/DL (14.2-18.0) Hematocrit 21.9 % (42.0-52.0) Mean Corpuscular Volume 88 FL (80-99) Mean Corpuscular Hemoglobin 30.0 PG (27.0-31.0) Mean Corpuscular Hemoglobin Concent 34.0 G/DL (32.0-36.0) Red Cell Distribution Width 16.4 % (11.6-14.8) Platelet Count 91 K/UL (150-450) Mean Platelet Volume 11.0 FL (6.5-10.1) Neutrophils (%) (Auto) % (45.0-75.0) Lymphocytes (%) (Auto) % (20.0-45.0) Monocytes (%) (Auto) % (1.0-10.0) Eosinophils (%) (Auto) % (0.0-3.0) Basophils (%) (Auto) % (0.0-2.0) Differential Total Cells Counted 100 Neutrophils % (Manual) 78 % (45-75) Lymphocytes % (Manual) 12 % (20-45) Monocytes % (Manual) 5 % (1-10) Eosinophils % (Manual) 5 % (0-3) Basophils % (Manual) 0 % (0-2) Band Neutrophils 0 % (0-8) Platelet Estimate Decreased Platelet Morphology Normal Hypochromasia 1+ Anisocytosis 1+ Sodium Level 131 MMOL/L (136-145) Potassium Level 5.4 MMOL/L (3.5-5.1) Chloride Level 98 MMOL/L (98-107) Carbon Dioxide Level 32 MMOL/L (21-32) Blood Urea Nitrogen 90 mg/dL (7-18) Creatinine 5.2 MG/DL (0.55-1.30) Estimat Glomerular Filtration Rate 14.2 mL/min (>60) Glucose Level 124 MG/DL (74-106) Calcium Level 8.3 MG/DL (8.5-10.1) Phosphorus Level 4.4 MG/DL (2.5-4.9) Magnesium Level 2.8 MG/DL (1.8-2.4) Total Bilirubin 0.4 MG/DL (0.2-1.0) Gamma Glutamyl Transpeptidase 84 U/L (5-85) Aspartate Amino Transf (AST/SGOT) 114 U/L (15-37) Alanine Aminotransferase (ALT/SGPT) 133 U/L (12-78) Alkaline Phosphatase 461 U/L (46-116) C-Reactive Protein, Quantitative 18.1 mg/dL (0.00-0.90) Pro-B-Type Natriuretic Peptide > 42842 pg/mL (0-125) Total Protein 7.1 G/DL (6.4-8.2) Albumin 1.4 G/DL (3.4-5.0) Globulin 5.7 g/dL Albumin/Globulin Ratio 0.2 (1.0-2.7) Test 07/04/20 06:11 07/04/20 12:05 07/04/20 12:19 07/04/20 17:48 POC Whole Blood Glucose 130 MG/DL (74-106) 78 MG/DL (74-106) 89 MG/DL (74-106) 127 MG/DL (74-106) Test 07/04/20 18:25 07/04/20 23:23 07/05/20 05:05 07/05/20 07:25 Random Vancomycin Level 18.9 ug/mL POC Whole Blood Glucose 122 MG/DL (74-106) 154 MG/DL (74-106) Arterial Blood pH 7.252 (7.350-7.450) Arterial Blood Partial Pressure CO2 63.9 mmHg (35.0-45.0) Arterial Blood Partial Pressure O2 101.0 mmHg (75.0-100.0) Arterial Blood HCO3 27.5 mmol/L (22.0-26.0) Arterial Blood Oxygen Saturation 97.4 % (95-100) Arterial Blood Base Excess -0.1 (-2-2) Joe Test Positive Test 07/05/20 07:55 07/05/20 11:55 07/05/20 17:54 07/05/20 23:57 White Blood Count 10.1 K/UL (4.8-10.8) Red Blood Count 2.49 M/UL (4.70-6.10) Hemoglobin 7.5 G/DL (14.2-18.0) Hematocrit 22.4 % (42.0-52.0) Mean Corpuscular Volume 90 FL (80-99) Mean Corpuscular Hemoglobin 30.1 PG (27.0-31.0) Mean Corpuscular Hemoglobin Concent 33.5 G/DL (32.0-36.0) Red Cell Distribution Width 15.2 % (11.6-14.8) Platelet Count 123 K/UL (150-450) Mean Platelet Volume 9.8 FL (6.5-10.1) Neutrophils (%) (Auto) % (45.0-75.0) Lymphocytes (%) (Auto) % (20.0-45.0) Monocytes (%) (Auto) % (1.0-10.0) Eosinophils (%) (Auto) % (0.0-3.0) Basophils (%) (Auto) % (0.0-2.0) Differential Total Cells Counted 100 Neutrophils % (Manual) 78 % (45-75) Lymphocytes % (Manual) 9 % (20-45) Monocytes % (Manual) 2 % (1-10) Eosinophils % (Manual) 11 % (0-3) Basophils % (Manual) 0 % (0-2) Band Neutrophils 0 % (0-8) Platelet Estimate Decreased Platelet Morphology Normal Anisocytosis 1+ Sodium Level 134 MMOL/L (136-145) Potassium Level 4.7 MMOL/L (3.5-5.1) Chloride Level 100 MMOL/L (98-107) Carbon Dioxide Level 29 MMOL/L (21-32) Blood Urea Nitrogen 61 mg/dL (7-18) Creatinine 3.6 MG/DL (0.55-1.30) Estimat Glomerular Filtration Rate 21.6 mL/min (>60) Glucose Level 77 MG/DL (74-106) Uric Acid 3.3 MG/DL (2.6-7.2) Calcium Level 8.4 MG/DL (8.5-10.1) Phosphorus Level 3.2 MG/DL (2.5-4.9) Magnesium Level 2.8 MG/DL (1.8-2.4) Total Bilirubin 0.4 MG/DL (0.2-1.0) Aspartate Amino Transf (AST/SGOT) 90 U/L (15-37) Alanine Aminotransferase (ALT/SGPT) 124 U/L (12-78) Alkaline Phosphatase 428 U/L (46-116) C-Reactive Protein, Quantitative 16.2 mg/dL (0.00-0.90) Total Protein 7.1 G/DL (6.4-8.2) Albumin 1.4 G/DL (3.4-5.0) Globulin 5.7 g/dL Albumin/Globulin Ratio 0.2 (1.0-2.7) POC Whole Blood Glucose 94 MG/DL (74-106) 130 MG/DL (74-106) 149 MG/DL (74-106) Test 07/06/20 06:04 07/06/20 06:50 07/06/20 09:11 POC Whole Blood Glucose 117 MG/DL (74-106) Sodium Level 131 MMOL/L (136-145) Potassium Level 5.1 MMOL/L (3.5-5.1) Chloride Level 98 MMOL/L (98-107) Carbon Dioxide Level 30 MMOL/L (21-32) Anion Gap 3 mmol/L (5-15) Blood Urea Nitrogen 72 mg/dL (7-18) Creatinine 4.1 MG/DL (0.55-1.30) Estimat Glomerular Filtration Rate 18.5 mL/min (>60) Glucose Level 112 MG/DL (74-106) Calcium Level 8.2 MG/DL (8.5-10.1) Phosphorus Level 3.5 MG/DL (2.5-4.9) Magnesium Level 2.8 MG/DL (1.8-2.4) Total Bilirubin 0.3 MG/DL (0.2-1.0) Aspartate Amino Transf (AST/SGOT) 74 U/L (15-37) Alanine Aminotransferase (ALT/SGPT) 96 U/L (12-78) Alkaline Phosphatase 421 U/L (46-116) Total Protein 7.1 G/DL (6.4-8.2) Albumin 1.4 G/DL (3.4-5.0) Globulin 5.7 g/dL Albumin/Globulin Ratio 0.2 (1.0-2.7) Arterial Blood pH 7.273 (7.350-7.450) Arterial Blood Partial Pressure CO2 60.5 mmHg (35.0-45.0) Arterial Blood Partial Pressure O2 91.5 mmHg (75.0-100.0) Arterial Blood HCO3 27.3 mmol/L (22.0-26.0) Arterial Blood Oxygen Saturation 97.1 % (95-100) Arterial Blood Base Excess 0.1 (-2-2) Joe Test Positive Height (Feet): 5 Height (Inches): 8.00 Weight (Pounds): 143 Objective PHYSICAL EXAMINATION: VITAL SIGNS: reviewed HEAD AND NECK: Show status post tracheostomy. vent+ LUNGS: Coarse rhonchi and basilar rales. CARDIOVASCULAR: Shows irregular S1 and S2 with no gallop. ABDOMEN: Soft. Status post G-tube. EXTREMITIES: No pitting edema.++Left Jose Epperson MD Jul 06, 2020 09:49
--- NOTE | 2020-07-06 09:58 | General Progress Note ---
Subjective ROS Limited/Unobtainable: Yes Allergies: Coded Allergies: No Known Allergies (Unverified , 06/13/20) Objective Last 24 Hour Vital Signs Date Time Temp Pulse Resp B/P (MAP) Pulse Ox O2 Delivery O2 Flow Rate FiO2 07/06/20 08:00 64 07/06/20 07:19 66 19 45 07/06/20 04:00 45 07/06/20 04:00 69 07/06/20 04:00 Mechanical Ventilator 07/06/20 04:00 96.3 68 19 133/73 (93) 99 07/06/20 03:30 68 19 45 07/06/20 00:00 Mechanical Ventilator 07/06/20 00:00 96.8 73 24 143/79 (100) 99 07/05/20 23:30 73 22 45 07/05/20 20:00 Mechanical Ventilator 07/05/20 20:00 45 07/05/20 20:00 69 07/05/20 20:00 96.8 68 18 145/77 (99) 97 07/05/20 19:30 68 19 45 07/05/20 16:00 45 07/05/20 16:00 Mechanical Ventilator 07/05/20 16:00 68 07/05/20 16:00 97.7 68 20 155/84 (107) 98 07/05/20 15:10 68 23 45 07/05/20 12:00 66 07/05/20 12:00 Mechanical Ventilator 07/05/20 12:00 45 07/05/20 12:00 97.2 65 18 137/70 (92) 99 07/05/20 11:10 65 20 45 Intake and Output 07/05/20 07/06/20 19:00 07:00 Intake Total 650 ml 800 ml Output Total 100 ml 200 ml Balance 550 ml 600 ml Free Water 50 ml 200 ml Tube Feeding 600 ml 600 ml Output Urine Total 100 ml Stool Total 100 ml 100 ml Laboratory Tests 07/05/20 11:55: POC Whole Blood Glucose 94 07/05/20 17:54: POC Whole Blood Glucose 130H 07/05/20 23:57: POC Whole Blood Glucose 149H 07/06/20 06:04: POC Whole Blood Glucose 117H 07/06/20 06:50: Sodium Level 131L, Potassium Level 5.1, Chloride Level 98, Carbon Dioxide Level 30, Anion Gap 3L, Blood Urea Nitrogen 72H, Creatinine 4.1H, Estimat Glomerular Filtration Rate 18.5, Glucose Level 112H, Calcium Level 8.2L, Phosphorus Level 3.5, Magnesium Level 2.8H, Total Bilirubin 0.3, Aspartate Amino Transf (AST/SGOT) 74H, Alanine Aminotransferase (ALT/SGPT) 96H, Alkaline Phosphatase 421H, Total Protein 7.1, Albumin 1.4L, Globulin 5.7, Albumin/Globulin Ratio 0.2L 07/06/20 09:11: Arterial Blood pH 7.273L, Arterial Blood Partial Pressure CO2 60.5*H, Arterial Blood Partial Pressure O2 91.5, Arterial Blood HCO3 27.3H, Arterial Blood Oxygen Saturation 97.1, Arterial Blood Base Excess 0.1, Joe Test Positive Height (Feet): 5 Height (Inches): 8.00 Weight (Pounds): 143 Assessment/Plan Problem List: (1) Anemia ICD Codes: D64.9 - Anemia, unspecified SNOMED: 068890649 (2) KERRI (acute kidney injury) ICD Codes: N17.9 - Acute kidney failure, unspecified SNOMED: 1523809, 89681405 (3) Acute respiratory failure ICD Codes: J96.00 - Acute respiratory failure, unspecified whether with hypoxia or hypercapnia SNOMED: 45089968 Qualifiers: Qualified Codes: J96.02 - Acute respiratory failure with hypercapnia (4) Hyperkalemia ICD Codes: E87.5 - Hyperkalemia SNOMED: 09654434 (5) Abnormal laboratory test result ICD Codes: R89.9 - Unspecified abnormal finding in specimens from other organs, systems and tissues SNOMED: 293777874 (6) Anemia ICD Codes: D64.9 - Anemia, unspecified SNOMED: 666757023 Status: progressing Assessment/Plan: afebrile s/p dehiscence chf resp insuff not hypoxic s/p pulm edema is improving agitated at times s/p acute Neida Pacheco MD Jul 06, 2020 09:58
--- NOTE | 2020-07-06 10:00 | NUR ---
NURSE NOTES: Morning medications administered per order. The patient tolerated well. Will closely monitor the patient. Will continue plan of care.
--- NOTE | 2020-07-06 11:00 | NUR ---
NURSE NOTES: Dr. Honeycutt at the bedside assessed the patient. Notified abnormal lab including Hgb, abnormal ABG, Na, K, BUN, Cr. Per Dr. Honeycutt, HD will be ordered for tomorrow. Will closely monitor the patient. Will continue plan of care.
[2020-07-06 12:00] VITALS: BP 148/77
--- NOTE | 2020-07-06 12:00 | NUR ---
NURSE NOTES: BS 117 noted. No coverage per protocol. Will closely monitor the patient. Will continue plan of care.
--- NOTE | 2020-07-06 12:19 | General Progress Note ---
Subjective ROS Limited/Unobtainable: Yes Allergies: Coded Allergies: No Known Allergies (Unverified , 06/13/20) Subjective events noted interval notes reviewed glucose values are stable Item Value Date Time Bedside Blood Glucose 117 mg/dl 07/06/20 0600 Bedside Blood Glucose 149 mg/dl H 07/06/20 0000 Bedside Blood Glucose 130 mg/dl H 07/05/20 1800 Bedside Blood Glucose 94 mg/dl 07/05/20 1200 Objective Last 24 Hour Vital Signs Date Time Temp Pulse Resp B/P (MAP) Pulse Ox O2 Delivery O2 Flow Rate FiO2 07/06/20 12:05 45 07/06/20 12:00 96.2 68 22 148/77 (100) 100 07/06/20 11:07 68 22 45 07/06/20 08:00 64 07/06/20 08:00 45 07/06/20 08:00 95.9 64 19 156/78 (104) 99 07/06/20 07:19 66 19 45 07/06/20 04:00 45 07/06/20 04:00 69 07/06/20 04:00 Mechanical Ventilator 07/06/20 04:00 96.3 68 19 133/73 (93) 99 07/06/20 03:30 68 19 45 07/06/20 00:00 Mechanical Ventilator 07/06/20 00:00 96.8 73 24 143/79 (100) 99 07/05/20 23:30 73 22 45 07/05/20 20:00 Mechanical Ventilator 07/05/20 20:00 45 07/05/20 20:00 69 07/05/20 20:00 96.8 68 18 145/77 (99) 97 07/05/20 19:30 68 19 45 07/05/20 16:00 45 07/05/20 16:00 Mechanical Ventilator 07/05/20 16:00 68 07/05/20 16:00 97.7 68 20 155/84 (107) 98 07/05/20 15:10 68 23 45 Intake and Output 07/05/20 07/06/20 19:00 07:00 Intake Total 650 ml 800 ml Output Total 100 ml 200 ml Balance 550 ml 600 ml Free Water 50 ml 200 ml Tube Feeding 600 ml 600 ml Output Urine Total 100 ml Stool Total 100 ml 100 ml Laboratory Tests 07/05/20 17:54: POC Whole Blood Glucose 130H 07/05/20 23:57: POC Whole Blood Glucose 149H 07/06/20 06:04: POC Whole Blood Glucose 117H 07/06/20 06:50: Sodium Level 131L, Potassium Level 5.1, Chloride Level 98, Carbon Dioxide Level 30, Anion Gap 3L, Blood Urea Nitrogen 72H, Creatinine 4.1H, Estimat Glomerular Filtration Rate 18.5, Glucose Level 112H, Calcium Level 8.2L, Phosphorus Level 3.5, Magnesium Level 2.8H, Total Bilirubin 0.3, Aspartate Amino Transf (AST/SGOT) 74H, Alanine Aminotransferase (ALT/SGPT) 96H, Alkaline Phosphatase 421H, Total Protein 7.1, Albumin 1.4L, Globulin 5.7, Albumin/Globulin Ratio 0.2L 07/06/20 09:11: Arterial Blood pH 7.273L, Arterial Blood Partial Pressure CO2 60.5*H, Arterial Blood Partial Pressure O2 91.5, Arterial Blood HCO3 27.3H, Arterial Blood Oxygen Saturation 97.1, Arterial Blood Base Excess 0.1, Joe Test Positive Height (Feet): 5 Height (Inches): 8.00 Weight (Pounds): 143 General Appearance: no apparent distress Neck: normal alignment Cardiovascular: normal rate Respiratory/Chest: decreased breath sounds Abdomen: normal bowel sounds Pelvis: normal external exam Objective Current Medications Medications (Trade) Dose Ordered Sig/Maryjane Route PRN Reason Start Time Stop Time Status Last Admin Dose Admin Acetaminophen (Tylenol) 650 mg Q4H PRN GT Mild Pain (Pain Scale 1-3) 06/18/20 23:00 07/18/20 22:59 Acetaminophen (Tylenol) 650 mg Q4HR PRN GT FEVER 06/14/20 09:45 07/14/20 09:44 06/19/20 20:45 Aluminum Hydroxide (Amphojel) 1,920 mg Q6H GT 06/17/20 10:00 07/17/20 09:59 07/06/20 09:11 Ascorbic Acid (Vitamin C) 500 mg DAILY GT 07/01/20 09:00 07/31/20 08:59 07/06/20 09:11 Chlorhexidine Gluconate (Inés-Hex 2%) 1 applic DAILY@1999 TOPIC 06/21/20 20:00 09/19/20 19:59 07/05/20 20:59 Dextrose (Dextrose 50%) 25 ml Q30M PRN IV Hypoglycemia 06/28/20 18:30 09/26/20 18:29 Dextrose (Dextrose 50%) 50 ml Q30M PRN IV Hypoglycemia 06/28/20 18:30 09/26/20 18:29 Epoetin Bonilla (Epoetin Bonilla(ESRD on dialysis)) 10,000 unit TUE-TUE-TUE SUBQ 07/02/20 21:00 09/16/20 20:59 07/04/20 21:45 Haloperidol Lactate (Haldol) 5 mg Q6H PRN IM Agitation 06/21/20 23:15 08/05/20 23:14 06/25/20 18:17 Insulin Aspart (NovoLOG) EVERY 6 HOURS SUBQ 06/29/20 00:00 09/27/20 00:00 07/05/20 23:59 Lansoprazole (Prevacid) 30 mg Q12HR GT 06/30/20 21:00 07/30/20 20:59 07/06/20 09:11 Levothyroxine Sodium (Synthroid) 88 mcg DAILY@0630 GT 07/03/20 06:30 08/02/20 06:29 07/06/20 06:00 Vancomycin HCl ([facility] pharmacy to dose) 1 ea DAILY PRN MISC Per rx protocol 06/27/20 11:30 07/18/20 23:59 Assessment/Plan Problem List: (1) History of left below knee amputation ICD Codes: Z89.512 - Acquired absence of left leg below knee SNOMED: 816676865, [id number] (2) Surgical wound dehiscence ICD Codes: T81.31XA - Disruption of external operation (surgical) wound, not elsewhere classified, initial encounter SNOMED: 95797191 (3) Hyperkalemia ICD Codes: E87.5 - Hyperkalemia SNOMED: 02968992 (4) Acute respiratory failure ICD Codes: J96.00 - Acute respiratory failure, unspecified whether with hypoxia or hypercapnia SNOMED: 97107041 Qualifiers: Qualified Codes: J96.02 - Acute respiratory failure with hypercapnia (5) Hypothyroidism ICD Codes: E03.9 - Hypothyroidism, unspecified SNOMED: 43297432 (6) Hyperglycemia ICD Codes: R73.9 - Hyperglycemia, unspecified SNOMED: 24507696 Status: progressing Assessment/Plan: continue Levothyroxine 88 mcg daily repeat thyroid function in 1-2 weeks continue glucose monitoring Davy Ramos MD Jul 06, 2020 12:19
--- NOTE | 2020-07-06 13:37 | Nephrology Progress Note ---
Assessment/Plan Problem List: (1) KERRI (acute kidney injury) (2) Acute respiratory failure (3) Chronic respiratory failure (4) Anemia (5) Hyperkalemia Assessment Acute on chronic renal failure Anemia Respiratory failure acute on chronic Respiratory acidosis and hypoxia Hyperkalemia Plan July 06: Labs reviewed. Dialyzed July 04. Due for dialysis July 07. Continue per consultants. July 05: Labs reviewed. Dialyzed yesterday. Electrolytes and renal parameters stable. Continue per consultants. Continue dialysis as needed. July 04: Labs reviewed. Due for dialysis today. Continue to monitor electrolytes and hemoglobin hematocrit. Continue per consultants. July 03: Lab reviewed. Will defer dialysis for July 04. Some blood oozing from the catheter site. General surgery to be informed. Electrolytes stable. Continue as is. July 02: Labs reviewed. Due for dialysis tomorrow. Hemoglobin higher. Sta ble electrolytes. Continue per consultants. July 01: Labs reviewed. Dialyzed yesterday. Patient has a permacath. Continue per consultants. Worsening anemia noted, deferred to apprentice technician. June 30: Labs reviewed. Due for dialysis today. Patient appears to be needing hemodialysis for sometimes incoming future. Will arrange for placement of a tunneled catheter. Continue per consultants. Anemia management per apprentice technician. June 29: Labs reviewed. Hemoglobin is higher. Next hemodialysis tomorrow June 30. Continue per consultants. June 28: Labs reviewed. Last dialyzed June 26. Hemoglobin remains low. Defer transfusion and work-up to apprentice technician. Continue to follow-up renal parameters. June 27: Labs reviewed. Dialyzed yesterday. Hemoglobin low. Due for transfusion. Continue to monitor renal parameters and hemoglobin and hematocrit. June 26: Labs reviewed. Due for dialysis today. Continue per consultants. Continue to monitor liver enzymes. June 25: Labs reviewed. Will dialyze tomorrow. Continue per consultants. Check liver function enzymes. June 24: Dialyzed yesterday. Labs reviewed. Medication list reviewed. Liver enzymes remains elevated. Continue to monitor electrolytes renal parameters and LFTs. Hemodialysis in a.m. if needed. June 23: Patient will be dialyzed today again. Labs reviewed. Serum creatinine higher. Elevated liver enzymes persist. Patient full code. Continue per consultants. June 22: Patient dialyzed yesterday. Labs reviewed. Liver function tests and enzymes are elevated. Continue to monitor renal parameters and LFTs. Continue per consultants. Patient full code. June 21: Patient due for dialysis today. Labs and medication list reviewed. Discussed with RN. Continue to monitor renal parameters. June 20: Patient had an episode of bradycardia last night. Serum creatinine rising. Patient continues to have respiratory acidosis. Discussed with RN Varun. Will order non tunneled dialysis catheter placement for initiation of dialysis treatment due to acute renal failure. Patient remains full code. I favor comfort care if bioethics consultation is sought and physicians on the team agreeable. June 19: No CHEM panel today. Low hemoglobin as of yesterday's lab results. Anemia management per Dr. Cueva. Continue to monitor renal parameters. June 18: Labs are reviewed. Hemoglobin lower. Creatinine higher. ABG not done yet. Patient full code. Continue per consultants. June 17: Labs reviewed. Hemoglobin low. Creatinine up to 3. Phosphorus levels elevated. Will start Amphojel via GT tube as a phosphorus binder. Mon itor renal parameters. Check ABG. Continue per consultants. June 16: Labs reviewed. Serum creatinine mariana to 2.6. Abnormal electrolytes now normalized. Continue to monitor renal parameters and avoid nephrotoxic's. Continue to adjust pulmonary status as possible. June 15: ABG pH of 7.1. 2D echo suggestive of ejection fraction of 50%. Labs reviewed. Serum creatinine mariana. Will hold IV Lasix. Will give Kayexalate for high potassium and 1 amp of sodium bicarb. Albumin IV bolus given. Continue per consultants. Continue to monitor renal parameters. Kidney ultrasound ordered. June 14: As follow Pulmonary evaluation Sparrow catheter Hold IV fluid IV fluid, until 2D echo results available Kayexalate for high potassium IV Protonix 2D echocardiogram Anemia work-up More labs ordered Subjective ROS Limited/Unobtainable: Yes Objective Objective Last 24 Hour Vital Signs Date Time Temp Pulse Resp B/P (MAP) Pulse Ox O2 Delivery O2 Flow Rate FiO2 07/06/20 12:05 45 07/06/20 12:00 96.2 68 22 148/77 (100) 100 07/06/20 11:07 68 22 45 07/06/20 08:00 64 07/06/20 08:00 45 07/06/20 08:00 95.9 64 19 156/78 (104) 99 07/06/20 07:19 66 19 45 07/06/20 04:00 45 07/06/20 04:00 69 07/06/20 04:00 Mechanical Ventilator 07/06/20 04:00 96.3 68 19 133/73 (93) 99 07/06/20 03:30 68 19 45 07/06/20 00:00 Mechanical Ventilator 07/06/20 00:00 96.8 73 24 143/79 (100) 99 07/05/20 23:30 73 22 45 07/05/20 20:00 Mechanical Ventilator 07/05/20 20:00 45 07/05/20 20:00 69 07/05/20 20:00 96.8 68 18 145/77 (99) 97 07/05/20 19:30 68 19 45 07/05/20 16:00 45 07/05/20 16:00 Mechanical Ventilator 07/05/20 16:00 68 07/05/20 16:00 97.7 68 20 155/84 (107) 98 07/05/20 15:10 68 23 45 Intake and Output 07/05/20 07/06/20 18:59 06:59 Intake Total 600 ml 750 ml Output Total 100 ml Balance 500 ml 750 ml Free Water 50 ml 150 ml Tube Feeding 550 ml 600 ml Stool Total 100 ml Current Medications Medications (Trade) Dose Ordered Sig/Maryjane Route PRN Reason Start Time Stop Time Status Last Admin Dose Admin Acetaminophen (Tylenol) 650 mg Q4H PRN GT Mild Pain (Pain Scale 1-3) 06/18/20 23:00 07/18/20 22:59 Acetaminophen (Tylenol) 650 mg Q4HR PRN GT FEVER 06/14/20 09:45 07/14/20 09:44 06/19/20 20:45 Aluminum Hydroxide (Amphojel) 1,920 mg Q6H GT 06/17/20 10:00 07/17/20 09:59 07/06/20 09:11 Ascorbic Acid (Vitamin C) 500 mg DAILY GT 07/01/20 09:00 07/31/20 08:59 07/06/20 09:11 Chlorhexidine Gluconate (Inés-Hex 2%) 1 applic DAILY@1999 TOPIC 06/21/20 20:00 09/19/20 19:59 07/05/20 20:59 Dextrose (Dextrose 50%) 25 ml Q30M PRN IV Hypoglycemia 06/28/20 18:30 09/26/20 18:29 Dextrose (Dextrose 50%) 50 ml Q30M PRN IV Hypoglycemia 06/28/20 18:30 09/26/20 18:29 Epoetin Bonilla (Epoetin Bonilla(ESRD on dialysis)) 10,000 unit TUE-TUE-TUE SUBQ 07/02/20 21:00 09/16/20 20:59 07/04/20 21:45 Haloperidol Lactate (Haldol) 5 mg Q6H PRN IM Agitation 06/21/20 23:15 08/05/20 23:14 06/25/20 18:17 Insulin Aspart (NovoLOG) EVERY 6 HOURS SUBQ 06/29/20 00:00 09/27/20 00:00 07/05/20 23:59 Lansoprazole (Prevacid) 30 mg Q12HR GT 06/30/20 21:00 07/30/20 20:59 07/06/20 09:11 Levothyroxine Sodium (Synthroid) 88 mcg DAILY@0630 GT 07/03/20 06:30 08/02/20 06:29 07/06/20 06:00 Vancomycin HCl ([facility] pharmacy to dose) 1 ea DAILY PRN MISC Per rx protocol 06/27/20 11:30 07/18/20 23:59 Laboratory Tests 07/05/20 17:54: POC Whole Blood Glucose 130H 07/05/20 23:57: POC Whole Blood Glucose 149H 07/06/20 06:04: POC Whole Blood Glucose 117H 07/06/20 06:50: Sodium Level 131L, Potassium Level 5.1, Chloride Level 98, Carbon Dioxide Level 30, Anion Gap 3L, Blood Urea Nitrogen 72H, Creatinine 4.1H, Estimat Glomerular Filtration Rate 18.5, Glucose Level 112H, Calcium Level 8.2L, Phosphorus Level 3.5, Magnesium Level 2.8H, Total Bilirubin 0.3, Aspartate Amino Transf (AST/SGOT) 74H, Alanine Aminotransferase (ALT/SGPT) 96H, Alkaline Phosphatase 421H, Total Protein 7.1, Albumin 1.4L, Globulin 5.7, Albumin/Globulin Ratio 0.2L 07/06/20 09:11: Arterial Blood pH 7.273L, Arterial Blood Partial Pressure CO2 60.5*H, Arterial Blood Partial Pressure O2 91.5, Arterial Blood HCO3 27.3H, Arterial Blood Oxygen Saturation 97.1, Arterial Blood Base Excess 0.1, Joe Test Positive 07/06/20 12:19: POC Whole Blood Glucose 117H Height (Feet): 5 Height (Inches): 8.00 Weight (Pounds): 143 General Appearance: no apparent distress EENT: other - Trach to vent Cardiovascular: normal rate Respiratory/Chest: decreased breath sounds Abdomen: distended Leonidas Honeycutt MD Jul 06, 2020 13:37
--- NOTE | 2020-07-06 13:51 | General Progress Note ---
Subjective Allergies: Coded Allergies: No Known Allergies (Unverified , 06/13/20) Subjective above noted stools liquid, in rectal tube brown - small volume tolerating TF LFT still elevated but slowly declining all liver serologic w/u except CMV PCR still pending Objective Last 24 Hour Vital Signs Date Time Temp Pulse Resp B/P (MAP) Pulse Ox O2 Delivery O2 Flow Rate FiO2 07/06/20 12:05 45 07/06/20 12:00 96.2 68 22 148/77 (100) 100 07/06/20 11:07 68 22 45 07/06/20 08:00 64 07/06/20 08:00 45 07/06/20 08:00 95.9 64 19 156/78 (104) 99 07/06/20 07:19 66 19 45 07/06/20 04:00 45 07/06/20 04:00 69 07/06/20 04:00 Mechanical Ventilator 07/06/20 04:00 96.3 68 19 133/73 (93) 99 07/06/20 03:30 68 19 45 07/06/20 00:00 Mechanical Ventilator 07/06/20 00:00 96.8 73 24 143/79 (100) 99 07/05/20 23:30 73 22 45 07/05/20 20:00 Mechanical Ventilator 07/05/20 20:00 45 07/05/20 20:00 69 07/05/20 20:00 96.8 68 18 145/77 (99) 97 07/05/20 19:30 68 19 45 07/05/20 16:00 45 07/05/20 16:00 Mechanical Ventilator 07/05/20 16:00 68 07/05/20 16:00 97.7 68 20 155/84 (107) 98 07/05/20 15:10 68 23 45 Intake and Output 07/05/20 07/06/20 19:00 07:00 Intake Total 650 ml 800 ml Output Total 100 ml 200 ml Balance 550 ml 600 ml Free Water 50 ml 200 ml Tube Feeding 600 ml 600 ml Output Urine Total 100 ml Stool Total 100 ml 100 ml Laboratory Tests 07/05/20 17:54: POC Whole Blood Glucose 130H 07/05/20 23:57: POC Whole Blood Glucose 149H 07/06/20 06:04: POC Whole Blood Glucose 117H 07/06/20 06:50: Sodium Level 131L, Potassium Level 5.1, Chloride Level 98, Carbon Dioxide Level 30, Anion Gap 3L, Blood Urea Nitrogen 72H, Creatinine 4.1H, Estimat Glomerular Filtration Rate 18.5, Glucose Level 112H, Calcium Level 8.2L, Phosphorus Level 3.5, Magnesium Level 2.8H, Total Bilirubin 0.3, Aspartate Amino Transf ( AST/SGOT) 74H, Alanine Aminotransferase (ALT/SGPT) 96H, Alkaline Phosphatase 421H, Total Protein 7.1, Albumin 1.4L, Globulin 5.7, Albumin/Globulin Ratio 0.2L 07/06/20 09:11: Arterial Blood pH 7.273L, Arterial Blood Partial Pressure CO2 60.5*H, Arterial Blood Partial Pressure O2 91.5, Arterial Blood HCO3 27.3H, Arterial Blood Oxygen Saturation 97.1, Arterial Blood Base Excess 0.1, Joe Test Positive 07/06/20 12:19: POC Whole Blood Glucose 117H Height (Feet): 5 Height (Inches): 8.00 Weight (Pounds): 143 Objective Debilitated elderly man NCAT supple Coarse BS RRR abd sofft, flat, (+) GT s/p LLE BKA Assessment/Plan Status: progressing Assessment/Plan: Assessment Abnormal LFT - steadily improving (s/p US, CT, HIDA) - ? infectious hepatitis - Hep A and B negative - ? vascular - ? meds - ? other Gross hematuria - improved Acute anemia, ? urinary losses, ? GI loss ? surgical loss low platelet count Recommendations - f/u CMV PCR - Unable to have MRCP due to vent - continue to hold seroquel - follow LFT and CBC - no plans for GI w/u, per family discussion - TF - Transfuse PRN Fco Stringer MD Jul 06, 2020 13:51
--- NOTE | 2020-07-06 14:00 | NUR ---
NURSE NOTES: Called [facility] for routine HD order per Dr. Honeycutt. Confirmed w/ HD nurse Ms. Alexander and Chela @ [facility]. Will continue plan of care. Addendum: 07/06/20 at 2058 by Clayton Murillo RN Routine HD order to be done on 07/07/20.
--- NOTE | 2020-07-06 14:46 | Surgery Progress Note ---
Surgery Progress Note Subjective Symptoms: improved, tolerating diet, passing flatus Objective Last 24 Hour Vital Signs Date Time Temp Pulse Resp B/P (MAP) Pulse Ox O2 Delivery O2 Flow Rate FiO2 07/06/20 12:05 45 07/06/20 12:00 96.2 68 22 148/77 (100) 100 07/06/20 11:07 68 22 45 07/06/20 08:00 64 07/06/20 08:00 45 07/06/20 08:00 95.9 64 19 156/78 (104) 99 07/06/20 07:19 66 19 45 07/06/20 04:00 45 07/06/20 04:00 69 07/06/20 04:00 Mechanical Ventilator 07/06/20 04:00 96.3 68 19 133/73 (93) 99 07/06/20 03:30 68 19 45 07/06/20 00:00 Mechanical Ventilator 07/06/20 00:00 96.8 73 24 143/79 (100) 99 07/05/20 23:30 73 22 45 07/05/20 20:00 Mechanical Ventilator 07/05/20 20:00 45 07/05/20 20:00 69 07/05/20 20:00 96.8 68 18 145/77 (99) 97 07/05/20 19:30 68 19 45 07/05/20 16:00 45 07/05/20 16:00 Mechanical Ventilator 07/05/20 16:00 68 07/05/20 16:00 97.7 68 20 155/84 (107) 98 07/05/20 15:10 68 23 45 I&O Intake and Output 07/05/20 07/06/20 19:00 07:00 Intake Total 650 ml 800 ml Output Total 100 ml 200 ml Balance 550 ml 600 ml Free Water 50 ml 200 ml Tube Feeding 600 ml 600 ml Output Urine Total 100 ml Stool Total 100 ml 100 ml Dressing: saturated Cardiovascular: RSR Respiratory: clear, decreased breath sounds Abdomen: soft, non-tender, present bowel sounds Extremities: no tenderness, no cyanosis Laboratory Tests Test 07/05/20 17:54 07/05/20 23:57 07/06/20 06:04 07/06/20 06:50 POC Whole Blood Glucose 130 MG/DL (74-106) H 149 MG/DL (74-106) H 117 MG/DL (74-106) H Sodium Level 131 MMOL/L (136-145) L Potassium Level 5.1 MMOL/L (3.5-5.1) Chloride Level 98 MMOL/L (98-107) Carbon Dioxide Level 30 MMOL/L (21-32) Anion Gap 3 mmol/L (5-15) L Blood Urea Nitrogen 72 mg/dL (7-18) H Creatinine 4.1 MG/DL (0.55-1.30) H Estimat Glomerular Filtration Rate 18.5 mL/min (>60) Glucose Level 112 MG/DL (74-106) H Calcium Level 8.2 MG/DL (8.5-10.1) L Phosphorus Level 3.5 MG/DL (2.5-4.9) Magnesium Level 2.8 MG/DL (1.8-2.4) H Total Bilirubin 0.3 MG/DL (0.2-1.0) Aspartate Amino Transf (AST/SGOT) 74 U/L (15-37) H Alanine Aminotransferase (ALT/SGPT) 96 U/L (12-78) H Alkaline Phosphatase 421 U/L (46-116) H Total Protein 7.1 G/DL (6.4-8.2) Albumin 1.4 G/DL (3.4-5.0) L Globulin 5.7 g/dL Albumin/Globulin Ratio 0.2 (1.0-2.7) L Test 07/06/20 09:11 07/06/20 12:19 Arterial Blood pH 7.273 (7.350-7.450) Arterial Blood Partial Pressure CO2 60.5 mmHg (35.0-45.0) *H Arterial Blood Partial Pressure O2 91.5 mmHg (75.0-100.0) Arterial Blood HCO3 27.3 mmol/L (22.0-26.0) H Arterial Blood Oxygen Saturation 97.1 % (95-100) Arterial Blood Base Excess 0.1 (-2-2) Joe Test Positive POC Whole Blood Glucose 117 MG/DL (74-106) H Plan Problems: (1) Leukocytosis Assessment & Plan: 54-year-old male multiple comorbidities admitted for abnormal chest x-ray potentially pneumonia leukocytosis abnormal labs. Patient identified to have a prior left BKA surgical sutures still in place as well as a surgical sacral wound with sutures in place. Considerations of dehiscence being identified and potential etiology of infection. After evaluation unlikely source of infection though the sacral wound was looked to be dehiscing at the inferior aspect. No acute surgical mention at this time We will discussed care plan with PCP Recommend follow-up with initial surgeon considerations of removal of surgical sutures Care plan initiated worsening lft's US ordered ? shayla monitor for bleeding from right chest wall cath change dressings Extensive airspace consolidations at the lung bases consistent with severe multifocal infiltrate. Associated, large bilateral pleural effusions. Evaluation of the abdominal viscera is markedly suboptimal due to poor CT technique and lack of intravenous contrast. No definite hepatic lesion. No definite cholelithiasis. Mild colon wall thickening. The spleen, pancreas, and adrenal glands are not visualized well enough reliable assessment. No definite hydronephrosis. The kidneys are hyperdense, correlate for medical renal disease. No nephrolithiasis. Sparrow catheter within a decompressed urinary bladder. Moderate diverticulosis, without acute diverticulitis. No small bowel obstruction. PEG tube presumably within the stomach. Atherosclerotic calcifications of the aorta. Low-attenuation of the intravascular blood pool, correlate for anemia. IVC filter, incidentally noted. Air within the subcutaneous fat overlying the sacrum with skin thickening, correlate with physical exam for sacral decubitus ulcer. Degenerative changes of the spine. Bilateral pars defects at L5 without anterolisthesis of L5 on S1. IMPRESSION: Extensive airspace consolidations at the lung bases consistent with severe multifocal infiltrate. Associated, large bilateral pleural effusions. Evaluation of the abdominal viscera is markedly suboptimal due to poor CT technique and lack of intravenous contrast. Moderate diverticulosis, without acute diverticulitis. No small bowel obstruction. PEG tube presumably within the stomach. Note, if there is suspicion for colitis consider repeat scan with improved CT technique/intravenous contrast. Mild gallbladder wall thickening without definite evidence of cholelithiasis. Air within the subcutaneous fat overlying the sacrum with skin thickening, correlate with physical exam for sacral decubitus ulcer. Bilateral pars defects at L5. The kidneys are hyperdense, correlate for medical renal disease.. There is prompt uptake within the liver with washout of radiotracer from the liver on subsequent imaging. There is excretion into the biliary ducts. Gallbladder activity is present in a timely fashion indicating patency of the cystic duct. Very scant bowel activity is demonstrated concerning for common bile duct obstruction or sphincter dysfunction. IMPRESSION: No evidence to suggest cholecystitis. Gallbladder activity is present in a timely fashion indicating patency of the cystic duct. Very little radiotracer noted in the small bowel. Correlate with LFTs as a degree of common bile duct obstruction or sphincter dysfunction not excluded. Consider further evaluation with MRCP. (2) Surgical wound dehiscence Assessment & Plan: Patient identified to have a left BKA surgical sutures in place flap looks like it is taken well no signs of infection at this time no signs of seroma hematoma or drainage. Unknown exact length or duration of potential prior left BKA and until then recommend leaving sutures in place as it may be too early though it does look well-healed. If able to obtain prior records we will be happy to remove sutures otherwise will need follow-up with primary surgeon furthermore patient identified to have a surgical wound in the sacral area seems he probably potentially had a stage IV sacral decubitus ulcer that had debridement and primary closure. Fortunately. Sutures are still in place and it looks like the inferior aspect may be slowly dehiscing. There is no significant drainage no foul odor no signs of active infection unknown if bone was palpable prior. Can consider removing surgical sutures but again would recommend obtaining prior records of possible prior to doing so. Also recommend following up with primary surgeon as this may need ongoing continued care. Will follow with recommendations and as information is available. Continue current care plan. Wash wounds daily with normal saline. Apply skin protectant Optifoam dressing. Turn every 2 hours. Offload pressure with pillows and air mattress. Nutritional optimization. Worsening leukocytosis. Patient continues to have dehiscence of the prior primarily closed sacral decubitus ulcer. The sutures are was nearly torn out and the wound is opening and saturating with stool with bowel movements now has rectal tube. Unfortunately I see significant concern given dehiscence and therefore sutures were cut at the bedside and wound immediately opened under some tension. Underlying Vicryl sutures identified. There is some backbleeding some granulation tissue but definitely no take or closure of the stage IV sacral decubitus ulcer that was identified. Nonexcisional debridement done with gauze and jorge layer of slough and biofilm was removed wound was cleaned packing dressings applied. No abscess no purulent drainage unlikely etiology of infection. (3) History of left below knee amputation (4) Malnutrition Assessment & Plan: DAILY ESTIMATED NEEDS: Needs based on Wound, critical care, underweight/ 55.5kg 25-33 (25-35 w/ HD) kcals/kg [id number] ([id number]) total kcals 1.25-2 g protein/kg 69-111 g total protein 25-30 mL/kg 5073-2515 total fluid mLs NUTRITION DIAGNOSIS: * Swallowing difficulty R/T respiratory status as evidenced by pt is trach/vent dep, PEG dep. CURRENT TF: Nepro @ 40ml/hr x24 hrs ENTERAL NUTRITION RECOMMENDATIONS: Nepro @ 40ml/hr x 24 hrs to provide 960ml, 1728kcal, 78g prot, 698ml free water * Maintain current TF * HOB over 30 degrees/ water flush per MD ADDITIONAL RECOMMENDATIONS: * Per SNF: HT=69" [id number] -> rec daily calibrated bedscale wt * Monitor lytes: elev K-> now wnl, phos now low * Wound healing: RANDY BID + Nephrovite 1 tab qdaily * Monitor for bm, last bm 06/19, now 06/24 * W/ HD rec to add Prosource 1 pack qdaily for added 11g pro/day. (5) Anemia (6) KERRI (acute kidney injury) (7) Acute respiratory failure (8) Hyperkalemia (9) Anemia (10) Abnormal laboratory test result (11) Chronic respiratory failure (12) Hyperglycemia (13) Hypothyroidism Azar Mares Jul 06, 2020 14:46
--- NOTE | 2020-07-06 15:30 | NUR ---
NURSE NOTES: The patient is resting comfortably without acute distress or shortness of breath. Tolerating vent setting and tube feeding well. Will closely monitor the patient. Will continue plan of care.
[2020-07-06 16:00] VITALS: BP 150/81
--- NOTE | 2020-07-06 16:00 | NUR ---
NURSE NOTES: Bed bath given to the patient. The patient tolerated well. Will closely monitor the patient. Will continue plan of care.
--- NOTE | 2020-07-06 16:04 | Cardiac Electrophysiology PN ---
Assessment/Plan Assessment/Plan 1. Vent-dependent respirator failure. S/P tracheostomy. On 50% Fio2 Chest x-ray extensive bilateral pneumonia or ARDS. Off isolation EF 50%. Ruled out for [facility] On iv Abx 2. Sinus Tachycardia, likely due to respiratory failure and sepsis 3. Right femoral vein DVT. S/P IVC filter 06/18 4. Dysphagia, status post PEG placement. 5. Renal failure. S/P Right IJ Iron and on HD by Dr. Honeycutt. 6. Severe anemia, S/P multiple PRBCs for hematuria 7. High LFTs, s/p CT abdomen and pelvis and HIDA FU Dr Stringer 8. Transient bradycardia, resolved DW RN and Dr Honeycutt Subjective Subjective On the Vent off isolation. On 45% Fio2 and PEEP 5. S/P IVC filter S/P Right IJ Iron and first HD 06/21/20 Had [facility]UD DRIVER as HR dropped to 30 at 4 am 06/25/20 Got PRBC 06/27 and 06/28 as Hb dropped to 5.6 HD scheduled for tomorrow again Objective Last 24 Hour Vital Signs Date Time Temp Pulse Resp B/P (MAP) Pulse Ox O2 Delivery O2 Flow Rate FiO2 07/06/20 15:05 68 20 45 07/06/20 12:05 45 07/06/20 12:00 Mechanical Ventilator 07/06/20 12:00 68 07/06/20 12:00 96.2 68 22 148/77 (100) 100 07/06/20 11:07 68 22 45 07/06/20 08:00 Mechanical Ventilator 07/06/20 08:00 64 07/06/20 08:00 45 07/06/20 08:00 95.9 64 19 156/78 (104) 99 07/06/20 07:19 66 19 45 07/06/20 04:00 45 07/06/20 04:00 69 07/06/20 04:00 Mechanical Ventilator 07/06/20 04:00 96.3 68 19 133/73 (93) 99 07/06/20 03:30 68 19 45 07/06/20 00:00 Mechanical Ventilator 07/06/20 00:00 96.8 73 24 143/79 (100) 99 07/05/20 23:30 73 22 45 07/05/20 20:00 Mechanical Ventilator 11/28/20 20:00 45 07/05/20 20:00 69 07/05/20 20:00 96.8 68 18 145/77 (99) 97 07/05/20 19:30 68 19 45 Intake and Output 07/05/20 07/06/20 19:00 07:00 Intake Total 650 ml 800 ml Output Total 100 ml 200 ml Balance 550 ml 600 ml Free Water 50 ml 200 ml Tube Feeding 600 ml 600 ml Output Urine Total 100 ml Stool Total 100 ml 100 ml Laboratory Tests Test 07/05/20 17:54 07/05/20 23:57 07/06/20 06:04 07/06/20 06:50 POC Whole Blood Glucose 130 MG/DL (74-106) H 149 MG/DL (74-106) H 117 MG/DL (74-106) H Sodium Level 131 MMOL/L (136-145) L Potassium Level 5.1 MMOL/L (3.5-5.1) Chloride Level 98 MMOL/L (98-107) Carbon Dioxide Level 30 MMOL/L (21-32) Anion Gap 3 mmol/L (5-15) L Blood Urea Nitrogen 72 mg/dL (7-18) H Creatinine 4.1 MG/DL (0.55-1.30) H Estimat Glomerular Filtration Rate 18.5 mL/min (>60) Glucose Level 112 MG/DL (74-106) H Calcium Level 8.2 MG/DL (8.5-10.1) L Phosphorus Level 3.5 MG/DL (2.5-4.9) Magnesium Level 2.8 MG/DL (1.8-2.4) H Total Bilirubin 0.3 MG/DL (0.2-1.0) Aspartate Amino Transf (AST/SGOT) 74 U/L (15-37) H Alanine Aminotransferase (ALT/SGPT) 96 U/L (12-78) H Alkaline Phosphatase 421 U/L (46-116) H Total Protein 7.1 G/DL (6.4-8.2) Albumin 1.4 G/DL (3.4-5.0) L Globulin 5.7 g/dL Albumin/Globulin Ratio 0.2 (1.0-2.7) L Test 07/06/20 09:11 07/06/20 12:19 Arterial Blood pH 7.273 (7.350-7.450) Arterial Blood Partial Pressure CO2 60.5 mmHg (35.0-45.0) *H Arterial Blood Partial Pressure O2 91.5 mmHg (75.0-100.0) Arterial Blood HCO3 27.3 mmol/L (22.0-26.0) H Arterial Blood Oxygen Saturation 97.1 % (95-100) Arterial Blood Base Excess 0.1 (-2-2) Joe Test Positive POC Whole Blood Glucose 117 MG/DL (74-106) H Microbiology Date/Time Source Procedure Growth Status 07/03/20 17:40 Sputum Gram Stain - Final Resulted 07/03/20 17:40 Sputum Culture - Preliminary Providencia Stuartii Pseudomonas Aeruginosa - Mdr Resulted Objective HEAD AND NECK: Status post tracheostomy. Right IJ Iron in place LUNGS: Coarse rhonchi and basilar rales. CARDIOVASCULAR: Irregular S1 and S2 with no gallop. ABDOMEN: Soft. Status post G-tube. EXTREMITIES: No pitting edema. Lance Mcguire MD Jul 06, 2020 16:04
--- NOTE | 2020-07-06 18:00 | NUR ---
NURSE NOTES: per patient he feels tired. Tolerating vent setting and tube feeding well. VS stable. Inform patient regarding dialysis tomorrow. Will continue plan of care.
--- NOTE | 2020-07-06 18:19 | Pulmonology Progress Note ---
Subjective ROS Limited/Unobtainable: Yes Interval Events: FiO2 now 40%; Remains on vent. Constitutional: Denies: fever HEENT: Repors: no symptoms Respiratory: Reports: no symptoms Cardiovascular: Reports: no symptoms Gastrointestinal/Abdominal: Reports: diarrhea Genitourinary: Reports: no symptoms Psychiatric: Reports: other - on restraint Allergies: Coded Allergies: No Known Allergies (Unverified , 06/13/20) Objective Last 24 Hour Vital Signs Date Time Temp Pulse Resp B/P (MAP) Pulse Ox O2 Delivery O2 Flow Rate FiO2 07/06/20 16:00 45 07/06/20 16:00 97.2 69 22 150/81 (104) 100 07/06/20 16:00 69 07/06/20 16:00 Mechanical Ventilator 07/06/20 15:05 68 20 45 07/06/20 12:05 45 07/06/20 12:00 Mechanical Ventilator 07/06/20 12:00 68 07/06/20 12:00 96.2 68 22 148/77 (100) 100 07/06/20 11:07 68 22 45 07/06/20 08:00 Mechanical Ventilator 07/06/20 08:00 64 07/06/20 08:00 45 07/06/20 08:00 95.9 64 19 156/78 (104) 99 07/06/20 07:19 66 19 45 07/06/20 04:00 45 07/06/20 04:00 69 07/06/20 04:00 Mechanical Ventilator 07/06/20 04:00 96.3 68 19 133/73 (93) 99 07/06/20 03:30 68 19 45 07/06/20 00:00 Mechanical Ventilator 07/06/20 00:00 96.8 73 24 143/79 (100) 99 07/05/20 23:30 73 22 45 07/05/20 20:00 Mechanical Ventilator 07/05/20 20:00 45 07/05/20 20:00 69 07/05/20 20:00 96.8 68 18 145/77 (99) 97 07/05/20 19:30 68 19 45 Intake and Output 07/05/20 07/06/20 19:00 07:00 Intake Total 650 ml 800 ml Output Total 100 ml 200 ml Balance 550 ml 600 ml Free Water 50 ml 200 ml Tube Feeding 600 ml 600 ml Output Urine Total 100 ml Stool Total 100 ml 100 ml General Appearance: no acute distress HEENT: status post trach Respiratory: chest wall non-tender, decreased breath sounds Cardiovascular: normal rate Abdomen: normal bowel sounds Extremities: no cyanosis Laboratory Tests 07/05/20 23:57: POC Whole Blood Glucose 149H 07/06/20 06:04: POC Whole Blood Glucose 117H 07/06/20 06:50: Sodium Level 131L, Potassium Level 5.1, Chloride Level 98, Carbon Dioxide Level 30, Anion Gap 3L, Blood Urea Nitrogen 72H, Creatinine 4.1H, Estimat Glomerular Filtration Rate 18.5, Glucose Level 112H, Calcium Level 8.2L, Phosphorus Level 3.5, Magnesium Level 2.8H, Total Bilirubin 0.3, Aspartate Amino Transf (AST/SGOT ) 74H, Alanine Aminotransferase (ALT/SGPT) 96H, Alkaline Phosphatase 421H, Total Protein 7.1, Albumin 1.4L, Globulin 5.7, Albumin/Globulin Ratio 0.2L 07/06/20 09:11: Arterial Blood pH 7.273L, Arterial Blood Partial Pressure CO2 60.5*H, Arterial Blood Partial Pressure O2 91.5, Arterial Blood HCO3 27.3H, Arterial Blood Oxygen Saturation 97.1, Arterial Blood Base Excess 0.1, Joe Test Positive 07/06/20 12:19: POC Whole Blood Glucose 117H 07/06/20 16:56: POC Whole Blood Glucose 120H Current Medications Medications (Trade) Dose Ordered Sig/Maryjane Route PRN Reason Start Time Stop Time Status Last Admin Dose Admin Acetaminophen (Tylenol) 650 mg Q4H PRN GT Mild Pain (Pain Scale 1-3) 06/18/20 23:00 07/18/20 22:59 Acetaminophen (Tylenol) 650 mg Q4HR PRN GT FEVER 06/14/20 09:45 07/14/20 09:44 06/19/20 20:45 Aluminum Hydroxide (Amphojel) 1,920 mg Q6H GT 06/17/20 10:00 07/17/20 09:59 07/06/20 15:03 Ascorbic Acid (Vitamin C) 500 mg DAILY GT 07/01/20 09:00 07/31/20 08:59 07/06/20 09:11 Chlorhexidine Gluconate (Inés-Hex 2%) 1 applic DAILY@1999 TOPIC 06/21/20 20:00 09/19/20 19:59 07/05/20 20:59 Dextrose (Dextrose 50%) 25 ml Q30M PRN IV Hypoglycemia 06/28/20 18:30 09/26/20 18:29 Dextrose (Dextrose 50%) 50 ml Q30M PRN IV Hypoglycemia 06/28/20 18:30 09/26/20 18:29 Epoetin Bonilla (Epoetin Bonilla(ESRD on dialysis)) 10,000 unit TUE-TUE-TUE SUBQ 07/02/20 21:00 09/16/20 20:59 07/04/20 21:45 Haloperidol Lactate (Haldol) 5 mg Q6H PRN IM Agitation 06/21/20 23:15 08/05/20 23:14 06/25/20 18:17 Insulin Aspart (NovoLOG) EVERY 6 HOURS SUBQ 06/29/20 00:00 09/27/20 00:00 07/05/20 23:59 Lansoprazole (Prevacid) 30 mg Q12HR GT 06/30/20 21:00 07/30/20 20:59 07/06/20 09:11 Levothyroxine Sodium (Synthroid) 88 mcg DAILY@0630 GT 07/03/20 06:30 08/02/20 06:29 07/06/20 06:00 Vancomycin HCl ([facility] pharmacy to dose) 1 ea DAILY PRN MISC Per rx protocol 06/27/20 11:30 07/18/20 23:59 Assessment/Plan Problems: (1) Acute respiratory failure Assessment/Plan IMPRESSION: 1. Chronic respiratory failure. 2. Hypoxemia. 3. Respiratory acidosis. 4. Anemia. 5. Leukocytosis. 6. DVT 7. S/p code blue 06/19/20 DISCUSSION: The patient's x-ray is markedly abnormal with bilateral infiltrates. I suspect he has pulmonary fibrosis. Latest CXR is unchanged to slightly improved COVID 19 pcr and antigen both negative No anticoagulation for DVT due to anemia S/p IVC filter placement Continue assist-control mechanical ventilation; currently FiO2 40%; SaO2 100%, broad-spectrum antibiotics. Transfusion as needed. Will continue PEEP to 8; S/p HD WIll decrease FiO2 as tolerated S/p permacath I will follow carefully. Hugo Carl Omar Syed MD Jul 06, 2020 18:19
--- NOTE | 2020-07-06 19:30 | NUR ---
NURSE HAND-OFF REPORT: Important Events on Shift: Patient is drowsy, ABG don. No new orders per Dr. Villalobos. HD 07/07, called [facility]. Patient Status: stable, Full Code Diet: GTF, Vital AF 1.2 @ 50ml/hr Pending Orders: HD 07/07 Pending Results/Labs:N Pending MD notification:N Latest Vital Signs: Temperature 97.2 , Pulse 67 , B/P 150 /81 , Respiratory Rate 20 , O2 SAT 100 , Mechanical Ventilator, O2 Flow Rate 15.0 . Vital Sign Comment: stable EKG Rhythm: Sinus Rhythm Rhythm change?: N MD Notified?: N -Dr. Ruel BENDER Response: No New Orders Received Latest Santiago Fall Score: 95 Fall Risk: High Risk Safety Measures: Call light Within Reach, Bed Alarm Zone 2, Side Rails Side Rails x3, Bed position Low and Locked. Fall Precautions: Yellow Socks Yellow Gown Door Sign Patient Fall Education Report given to MAX Ardon. The patient ois stable at this time. Endorsed plan of care.
[2020-07-06 20:00] VITALS: BP 151/76
[2020-07-06] MEDS: Dyna-Hex 2% Top Sol 2oz TOPIC SCH (20:34)
[2020-07-07] VITALS: BP 149/80
--- NOTE | 2020-07-07 | NUR ---
NURSE NOTES: Patient awake and watching TV. No sign of discomfort or acute distress noted will continue to monitor.
[2020-07-07 04:00] VITALS: BP 151/74
[2020-07-07] MEDS: Aluminum Hydroxide Gel Susp 15ml GT SCH ×4 (04:00→22:48)
[2020-07-07 05:35] LABS: HEMATOCRIT 20.6 % (42.0-52.0); MEAN CORPUSCULAR VOLUME 88 FL (80-99); PLATELET COUNT 188 K/UL (150-450); RED BLOOD COUNT 2.34 M/UL (4.70-6.10); RED CELL DISTRIBUTION WIDTH 16.8 % (11.6-14.8); WHITE BLOOD COUNT 11.8 K/UL (4.8-10.8)
[2020-07-07] MEDS: NovoLOG Insulin Flexpen SUBQ SCH ×3 (06:00→17:40)
[2020-07-07 06:04] LABS: CALCIUM 8.1 MG/DL (8.5-10.1); CREATININE 4.6 MG/DL (0.55-1.30); POTASSIUM 5.2 MMOL/L (3.5-5.1)
--- NOTE | 2020-07-07 06:35 | General Progress Note ---
Subjective ROS Limited/Unobtainable: Yes Allergies: Coded Allergies: No Known Allergies (Unverified , 06/13/20) Subjective events noted interval notes reviewed glucose values are stable Item Value Date Time Bedside Blood Glucose 112 mg/dl 07/07/20 0600 Bedside Blood Glucose 145 mg/dl H 07/07/20 0000 Bedside Blood Glucose 120 mg/dl 07/06/20 1715 Bedside Blood Glucose 117 mg/dl 07/06/20 1200 Bedside Blood Glucose 117 mg/dl 07/06/20 0600 Bedside Blood Glucose 149 mg/dl H 07/06/20 0000 Objective Last 24 Hour Vital Signs Date Time Temp Pulse Resp B/P (MAP) Pulse Ox O2 Delivery O2 Flow Rate FiO2 07/07/20 03:04 73 22 45 07/07/20 00:00 97.3 71 18 149/80 (103) 100 07/07/20 00:00 70 07/07/20 00:00 Mechanical Ventilator 07/07/20 00:00 45 07/06/20 22:43 69 25 45 07/06/20 20:00 70 07/06/20 20:00 Mechanical Ventilator 07/06/20 20:00 45 07/06/20 20:00 96.6 69 21 151/76 (101) 100 07/06/20 18:37 67 20 45 07/06/20 16:00 45 07/06/20 16:00 97.2 69 22 150/81 (104) 100 07/06/20 16:00 69 07/06/20 16:00 Mechanical Ventilator 07/06/20 15:05 68 20 45 07/06/20 12:05 45 07/06/20 12:00 Mechanical Ventilator 07/06/20 12:00 68 07/06/20 12:00 96.2 68 22 148/77 (100) 100 07/06/20 11:07 68 22 45 07/06/20 08:00 Mechanical Ventilator 07/06/20 08:00 64 07/06/20 08:00 45 07/06/20 08:00 95.9 64 19 156/78 (104) 99 07/06/20 07:19 66 19 45 Intake and Output 07/06/20 07/07/20 19:00 07:00 Intake Total 700 ml Output Total 145 ml Balance 555 ml Free Water 150 ml Tube Feeding 550 ml Output Urine Total 125 ml Stool Total 20 ml Laboratory Tests 07/06/20 06:50: Sodium Level 131L, Potassium Level 5.1, Chloride Level 98, Carbon Dioxide Level 30, Anion Gap 3L, Blood Urea Nitrogen 72H, Creatinine 4.1H, Estimat Glomerular Filtration Rate 18.5, Glucose Level 112H, Calcium Level 8.2L, Phosphorus Level 3.5, Magnesium Level 2.8H, Total Bilirubin 0.3, Aspartate Amino Transf (A ST/SGOT) 74H, Alanine Aminotransferase (ALT/SGPT) 96H, Alkaline Phosphatase 421H , Total Protein 7.1, Albumin 1.4L, Globulin 5.7, Albumin/Globulin Ratio 0.2L 07/06/20 09:11: Arterial Blood pH 7.273L, Arterial Blood Partial Pressure CO2 60.5*H, Arterial Blood Partial Pressure O2 91.5, Arterial Blood HCO3 27.3H, Arterial Blood Oxygen Saturation 97.1, Arterial Blood Base Excess 0.1, Joe Test Positive 07/06/20 12:19: POC Whole Blood Glucose 117H 07/06/20 16:56: POC Whole Blood Glucose 120H 07/06/20 23:52: POC Whole Blood Glucose [Pending] 07/07/20 04:41: White Blood Count 11.8H, Red Blood Count 2.34L, Hemoglobin 7.0L, Hematocrit 20.6L, Mean Corpuscular Volume 88, Mean Corpuscular Hemoglobin 30.0, Mean Corpuscular Hemoglobin Concent 34.0, Red Cell Distribution Width 16.8H, Platelet Count 188, Mean Platelet Volume 9.1, Neutrophils (%) (Auto) , Lymphocytes (%) (Auto) , Monocytes (%) (Auto) , Eosinophils (%) (Auto) , Basophils (%) (Auto) , Sodium Level 130L, Potassium Level 5.2H, Chloride Level 97L, Carbon Dioxide Level 29, Anion Gap 4L, Blood Urea Nitrogen 83H, Creatinine 4.6H, Estimat Glomerular Filtration Rate 16.2, Glucose Level 141H, Calcium Level 8.1L 07/07/20 06:13: POC Whole Blood Glucose 112H Height (Feet): 5 Height (Inches): 8.00 Weight (Pounds): 143 General Appearance: no apparent distress Cardiovascular: normal rate Respiratory/Chest: decreased breath sounds Abdomen: normal bowel sounds Objective Current Medications Medications (Trade) Dose Ordered Sig/Maryjane Route PRN Reason Start Time Stop Time Status Last Admin Dose Admin Acetaminophen (Tylenol) 650 mg Q4H PRN GT Mild Pain (Pain Scale 1-3) 06/18/20 23:00 07/18/20 22:59 Acetaminophen (Tylenol) 650 mg Q4HR PRN GT FEVER 06/14/20 09:45 07/14/20 09:44 06/19/20 20:45 Aluminum Hydroxide (Amphojel) 1,920 mg Q6H GT 06/17/20 10:00 07/17/20 09:59 07/07/20 04:00 Ascorbic Acid (Vitamin C) 500 mg DAILY GT 07/01/20 09:00 07/31/20 08:59 07/06/20 09:11 Chlorhexidine Gluconate (Inés-Hex 2%) 1 applic DAILY@1999 TOPIC 06/21/20 20:00 09/19/20 19:59 07/06/20 20:34 Dextrose (Dextrose 50%) 25 ml Q30M PRN IV Hypoglycemia 06/28/20 18:30 09/26/20 18:29 Dextrose (Dextrose 50%) 50 ml Q30M PRN IV Hypoglycemia 06/28/20 18:30 09/26/20 18:29 Epoetin Bonilla (Epoetin Bonilla(ESRD on dialysis)) 10,000 unit TUE-TUE-TUE SUBQ 07/02/20 21:00 09/16/20 20:59 07/04/20 21:45 Haloperidol Lactate (Haldol) 5 mg Q6H PRN IM Agitation 06/21/20 23:15 08/05/20 23:14 06/25/20 18:17 Insulin Aspart (NovoLOG) EVERY 6 HOURS SUBQ 06/29/20 00:00 09/27/20 00:00 07/06/20 23:55 Lansoprazole (Prevacid) 30 mg Q12HR GT 06/30/20 21:00 07/30/20 20:59 07/06/20 20:34 Levothyroxine Sodium (Synthroid) 88 mcg DAILY@06 GT 07/03/20 06:30 08/02/20 06:29 07/07/20 06:13 Vancomycin HCl ([facility] pharmacy to dose) 1 ea DAILY PRN MISC Per rx protocol 06/27/20 11:30 07/18/20 23:59 Assessment/Plan Problem List: (1) History of left below knee amputation ICD Codes: Z89.512 - Acquired absence of left leg below knee SNOMED: 127376482, [id number] (2) Surgical wound dehiscence ICD Codes: T81.31XA - Disruption of external operation (surgical) wound, not elsewhere classified, initial encounter SNOMED: 83583166 (3) Hyperkalemia ICD Codes: E87.5 - Hyperkalemia SNOMED: 65256832 (4) Acute respiratory failure ICD Codes: J96.00 - Acute respiratory failure, unspecified whether with hypoxia or hypercapnia SNOMED: 25888547 Qualifiers: Qualified Codes: J96.02 - Acute respiratory failure with hypercapnia (5) Hypothyroidism ICD Codes: E03.9 - Hypothyroidism, unspecified SNOMED: 61961959 (6) Hyperglycemia ICD Codes: R73.9 - Hyperglycemia, unspecified SNOMED: 83330581 Status: progressing Assessment/Plan: continue Levothyroxine 88 mcg daily repeat thyroid function in 1-2 weeks continue glucose monitoring Davy Ramos MD Jul 07, 2020 06:35
--- NOTE | 2020-07-07 06:51 | Hematology/Onc Progress Note ---
Assessment/Plan Assessment/Plan ASSESSMENT AND PLAN: #. Anemia that is likely due to chronic disease, r/o gi bleeding --> anemia panel has been reviewed, ferritin is >2000 --> no e/o hemolysis is noted --> transfuse on prn basis --> blood consent has been signed --> hgb 7.4-->7.4-->7-->6.7-->8-->7.5-->8.4-->9.1->8.1-->5.6->7.4-->7-->6.6->8-->7.5 --> folic acid is wnl --> 1 unit prbc 06/18 --> epogen has been started # Acute DVT in the distal right common femoral vein and profunda femoris vein. --> DUPLEX. Acute DVT in the distal right common femoral vein and profunda femoris vein. 2. No evidence of left lower extremity DVT. --> cannot anticoagulate at this time --> 06/17 s/p ivc filter placement --> hold off anticoag # Leukocytosis is likely due to b/l infiltrates --> on abx as per id -> ABX yolis/vanc-->yolis/linezolid--> yolis/levaq-->linezolid->vanc --> continue trend --> wbc 15-->12->9.5-->13-->14 # Thrombocytopenia likely due to infection --> plt 82-->67->78 --> hep and hiv neg # Respiratory failure in this patient with vent-dependent respiratory failure. 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 # Dysphagia --> status post PEG placement. # Renal failure. -> per Dr. Honeycutt. # Hyperkalemia and kayxelate as needed. # Dvt ppx scds Appreciate consultation and anglea RN Subjective Constitutional: Denies: no symptoms, chills, fever, malaise, weakness, other HEENT: Denies: no symptoms, eye pain, blurred vision, tearing, double vision, ear pain, ear discharge, nose pain, nose congestion, throat pain, throat swelling, mouth pain, mouth swelling, other Cardiovascular: Denies: no symptoms, chest pain, edema, irregular heart rate, lightheadedness, palpitations, syncope, other Gastrointestinal/Abdominal: Denies: no symptoms, abdomen distended, abdominal pain, black stools, tarry stools, blood in stool, constipated, diarrhea, difficulty swallowing, nausea, poor appetite, poor fluid intake, rectal bleeding, vomiting, other Genitourinary: Denies: no symptoms, burning, discharge, frequency, flank pain, hematuria, incontinence, pain, urgency, other Neurologic/Psychiatric: Denies: no symptoms, anxiety, depressed, emotional problems, headache, numbness, paresthesia, pre-existing deficit, seizure, tingling, tremors, weakness, other Endocrine: Denies: no symptoms, excessive sweating, flushing, intolerance to cold, intolerance to heat, increased hunger, increased thirst, increased urine, unexplained weight gain, unexplained weight loss, other Hematologic/Lymphatic: Denies: no symptoms, anemia, easy bleeding, easy bruising, adenopathy, other Allergies: Coded Allergies: No Known Allergies (Unverified , 06/13/20) Subjective 06/16 meds noted, labs reviewed, vent to trach, for ivc filter potentially 06/17 labs noted, meds reviewed, for ivc filter once covid neg 06/18 labs are noted, on vent and gt, 1 unit prbc ordered 06/19 labs pending, is s/p ivcf placement yesterday 06/20 for hd nontunneled cathter placement, no bleeding 06/22 labs noted, no bleeding, found down overnight, got ct brain, is neg 06/23 overnight is agitated and requiring restraints 06/24 labs noted, meds reviewed, hgb pending for am, restraints 06/25 labs reviewed, meds noted, no bleeding, hgb improved 06/26 per Rn, with rapid response overnight hr is improved, meds noted 06/27 labs reviewed, meds noted, no bleeding, hgb 5.6, wbc elevated, to get 2 unit prbc 06/29 on vanc, wbc 13, hgb 7.3, plt 88, on vanc 06/30 meds reviewed, hgb at 7, occult +, as per gi care, with diarrhea 07/01 plt 67, hgb 6.6, to get 2 units prbc, angela RN at bedside 07/02 RUC permacath reviewed, minimal bleeding, meds noted 07/03 gt feeds, meds noted, no bleeding, labs reviewed 07/04 awake, alert is on ivf, meds noted, labs reviewed 07/06 labs reviewed, meds noted, gt, watching tv 07/07 a+o x2, no bleeding, meds reviewed, no major changes Objective Objective Current Medications Medications (Trade) Dose Ordered Sig/Maryjane Route PRN Reason Start Time Stop Time Status Last Admin Dose Admin Acetaminophen (Tylenol) 650 mg Q4H PRN GT Mild Pain (Pain Scale 1-3) 06/18/20 23:00 07/18/20 22:59 Acetaminophen (Tylenol) 650 mg Q4HR PRN GT FEVER 06/14/20 09:45 07/14/20 09:44 06/19/20 20:45 Aluminum Hydroxide (Amphojel) 1,920 mg Q6H GT 06/17/20 10:00 07/17/20 09:59 07/07/20 04:00 Ascorbic Acid (Vitamin C) 500 mg DAILY GT 07/01/20 09:00 07/31/20 08:59 07/06/20 09:11 Chlorhexidine Gluconate (Inés-Hex 2%) 1 applic DAILY@1999 TOPIC 06/21/20 20:00 09/19/20 19:59 07/06/20 20:34 Dextrose (Dextrose 50%) 25 ml Q30M PRN IV Hypoglycemia 06/28/20 18:30 09/26/20 18:29 Dextrose (Dextrose 50%) 50 ml Q30M PRN IV Hypoglycemia 06/28/20 18:30 09/26/20 18:29 Epoetin Bonilla (Epoetin Bonilla(ESRD on dialysis)) 10,000 unit TUE-TUE-TUE SUBQ 07/02/20 21:00 09/16/20 20:59 07/04/20 21:45 Haloperidol Lactate (Haldol) 5 mg Q6H PRN IM Agitation 06/21/20 23:15 08/05/20 23:14 06/25/20 18:17 Insulin Aspart (NovoLOG) EVERY 6 HOURS SUBQ 06/29/20 00:00 09/27/20 00:00 07/06/20 23:55 Lansoprazole (Prevacid) 30 mg Q12HR GT 06/30/20 21:00 07/30/20 20:59 07/06/20 20:34 Levothyroxine Sodium (Synthroid) 88 mcg DAILY@0630 GT 07/03/20 06:30 08/02/20 06:29 07/07/20 06:13 Vancomycin HCl (Vanco pharmacy to dose) 1 ea DAILY PRN MISC Per rx protocol 06/27/20 11:30 07/18/20 23:59 Last 24 Hour Vital Signs Date Time Temp Pulse Resp B/P (MAP) Pulse Ox O2 Delivery O2 Flow Rate FiO2 07/07/20 03:04 73 22 45 07/07/20 00:00 97.3 71 18 149/80 (103) 100 07/07/20 00:00 70 07/07/20 00:00 Mechanical Ventilator 07/07/20 00:00 45 07/06/20 22:43 69 25 45 07/06/20 20:00 70 07/06/20 20:00 Mechanical Ventilator 07/06/20 20:00 45 07/06/20 20:00 96.6 69 21 151/76 (101) 100 07/06/20 18:37 67 20 45 07/06/20 16:00 45 07/06/20 16:00 97.2 69 22 150/81 (104) 100 07/06/20 16:00 69 07/06/20 16:00 Mechanical Ventilator 07/06/20 15:05 68 20 45 07/06/20 12:05 45 07/06/20 12:00 Mechanical Ventilator 07/06/20 12:00 68 07/06/20 12:00 96.2 68 22 148/77 (100) 100 07/06/20 11:07 68 22 45 07/06/20 08:00 Mechanical Ventilator 07/06/20 08:00 64 07/06/20 08:00 45 07/06/20 08:00 95.9 64 19 156/78 (104) 99 07/06/20 07:19 66 19 45 07/06/20 04:00 45 07/06/20 04:00 69 07/06/20 04:00 Mechanical Ventilator 07/06/20 04:00 96.3 68 19 133/73 (93) 99 07/06/20 03:30 68 19 45 07/06/20 00:00 Mechanical Ventilator 07/06/20 00:00 96.8 73 24 143/79 (100) 99 07/05/20 23:30 73 22 45 07/05/20 20:00 Mechanical Ventilator 07/05/20 20:00 45 07/05/20 20:00 69 07/05/20 20:00 96.8 68 18 145/77 (99) 97 07/05/20 19:30 68 19 45 07/05/20 16:00 45 07/05/20 16:00 Mechanical Ventilator 07/05/20 16:00 68 07/05/20 16:00 97.7 68 20 155/84 (107) 98 07/05/20 15:10 68 23 45 07/05/20 12:00 66 07/05/20 12:00 Mechanical Ventilator 07/05/20 12:00 45 07/05/20 12:00 97.2 65 18 137/70 (92) 99 07/05/20 11:10 65 20 45 07/05/20 08:00 97.0 69 18 141/73 (95) 99 07/05/20 08:00 Mechanical Ventilator 07/05/20 08:00 45 07/05/20 08:00 69 07/05/20 07:10 70 19 45 Intake and Output 07/06/20 07/07/20 19:00 07:00 Intake Total 700 ml Output Total 145 ml Balance 555 ml Free Water 150 ml Tube Feeding 550 ml Output Urine Total 125 ml Stool Total 20 ml Labs Test 07/04/20 12:05 07/04/20 12:19 07/04/20 17:48 07/04/20 18:25 POC Whole Blood Glucose 78 MG/DL (74-106) 89 MG/DL (74-106) 127 MG/DL (74-106) Random Vancomycin Level 18.9 ug/mL Test 07/04/20 23:23 07/05/20 05:05 07/05/20 07:25 07/05/20 07:55 POC Whole Blood Glucose 122 MG/DL (74-106) 154 MG/DL (74-106) Arterial Blood pH 7.252 (7.350-7.450) Arterial Blood Partial Pressure CO2 63.9 mmHg (35.0-45.0) Arterial Blood Partial Pressure O2 101.0 mmHg (75.0-100.0) Arterial Blood HCO3 27.5 mmol/L (22.0-26.0) Arterial Blood Oxygen Saturation 97.4 % (95-100) Arterial Blood Base Excess -0.1 (-2-2) Joe Test Positive White Blood Count 10.1 K/UL (4.8-10.8) Red Blood Count 2.49 M/UL (4.70-6.10) Hemoglobin 7.5 G/DL (14.2-18.0) Hematocrit 22.4 % (42.0-52.0) Mean Corpuscular Volume 90 FL (80-99) Mean Corpuscular Hemoglobin 30.1 PG (27.0-31.0) Mean Corpuscular Hemoglobin Concent 33.5 G/DL (32.0-36.0) Red Cell Distribution Width 15.2 % (11.6-14.8) Platelet Count 123 K/UL (150-450) Mean Platelet Volume 9.8 FL (6.5-10.1) Neutrophils (%) (Auto) % (45.0-75.0) Lymphocytes (%) (Auto) % (20.0-45.0) Monocytes (%) (Auto) % (1.0-10.0) Eosinophils (%) (Auto) % (0.0-3.0) Basophils (%) (Auto) % (0.0-2.0) Differential Total Cells Counted 100 Neutrophils % (Manual) 78 % (45-75) Lymphocytes % (Manual) 9 % (20-45) Monocytes % (Manual) 2 % (1-10) Eosinophils % (Manual) 11 % (0-3) Basophils % (Manual) 0 % (0-2) Band Neutrophils 0 % (0-8) Platelet Estimate Decreased Platelet Morphology Normal Anisocytosis 1+ Sodium Level 134 MMOL/L (136-145) Potassium Level 4.7 MMOL/L (3.5-5.1) Chloride Level 100 MMOL/L (98-107) Carbon Dioxide Level 29 MMOL/L (21-32) Blood Urea Nitrogen 61 mg/dL (7-18) Creatinine 3.6 MG/DL (0.55-1.30) Estimat Glomerular Filtration Rate 21.6 mL/min (>60) Glucose Level 77 MG/DL (74-106) Uric Acid 3.3 MG/DL (2.6-7.2) Calcium Level 8.4 MG/DL (8.5-10.1) Phosphorus Level 3.2 MG/DL (2.5-4.9) Magnesium Level 2.8 MG/DL (1.8-2.4) Total Bilirubin 0.4 MG/DL (0.2-1.0) Aspartate Amino Transf (AST/SGOT) 90 U/L (15-37) Alanine Aminotransferase (ALT/SGPT) 124 U/L (12-78) Alkaline Phosphatase 428 U/L (46-116) C-Reactive Protein, Quantitative 16.2 mg/dL (0.00-0.90) Total Protein 7.1 G/DL (6.4-8.2) Albumin 1.4 G/DL (3.4-5.0) Globulin 5.7 g/dL Albumin/Globulin Ratio 0.2 (1.0-2.7) Test 07/05/20 11:55 07/05/20 17:54 07/05/20 23:57 07/06/20 06:04 POC Whole Blood Glucose 94 MG/DL (74-106) 130 MG/DL (74-106) 149 MG/DL (74-106) 117 MG/DL (74-106) Test 07/06/20 06:50 07/06/20 09:11 07/06/20 12:19 07/06/20 16:56 Sodium Level 131 MMOL/L (136-145) Potassium Level 5.1 MMOL/L (3.5-5.1) Chloride Level 98 MMOL/L (98-107) Carbon Dioxide Level 30 MMOL/L (21-32) Anion Gap 3 mmol/L (5-15) Blood Urea Nitrogen 72 mg/dL (7-18) Creatinine 4.1 MG/DL (0.55-1.30) Estimat Glomerular Filtration Rate 18.5 mL/min (>60) Glucose Level 112 MG/DL (74-106) Calcium Level 8.2 MG/DL (8.5-10.1) Phosphorus Level 3.5 MG/DL (2.5-4.9) Magnesium Level 2.8 MG/DL (1.8-2.4) Total Bilirubin 0.3 MG/DL (0.2-1.0) Aspartate Amino Transf (AST/SGOT) 74 U/L (15-37) Alanine Aminotransferase (ALT/SGPT) 96 U/L (12-78) Alkaline Phosphatase 421 U/L (46-116) Total Protein 7.1 G/DL (6.4-8.2) Albumin 1.4 G/DL (3.4-5.0) Globulin 5.7 g/dL Albumin/Globulin Ratio 0.2 (1.0-2.7) Arterial Blood pH 7.273 (7.350-7.450) Arterial Blood Partial Pressure CO2 60.5 mmHg (35.0-45.0) Arterial Blood Partial Pressure O2 91.5 mmHg (75.0-100.0) Arterial Blood HCO3 27.3 mmol/L (22.0-26.0) Arterial Blood Oxygen Saturation 97.1 % (95-100) Arterial Blood Base Excess 0.1 (-2-2) Joe Test Positive POC Whole Blood Glucose 117 MG/DL (74-106) 120 MG/DL (74-106) Test 07/06/20 23:52 07/07/20 04:41 07/07/20 06:13 White Blood Count 11.8 K/UL (4.8-10.8) Red Blood Count 2.34 M/UL (4.70-6.10) Hemoglobin 7.0 G/DL (14.2-18.0) Hematocrit 20.6 % (42.0-52.0) Mean Corpuscular Volume 88 FL (80-99) Mean Corpuscular Hemoglobin 30.0 PG (27.0-31.0) Mean Corpuscular Hemoglobin Concent 34.0 G/DL (32.0-36.0) Red Cell Distribution Width 16.8 % (11.6-14.8) Platelet Count 188 K/UL (150-450) Mean Platelet Volume 9.1 FL (6.5-10.1) Neutrophils (%) (Auto) % (45.0-75.0) Lymphocytes (%) (Auto) % (20.0-45.0) Monocytes (%) (Auto) % (1.0-10.0) Eosinophils (%) (Auto) % (0.0-3.0) Basophils (%) (Auto) % (0.0-2.0) Sodium Level 130 MMOL/L (136-145) Potassium Level 5.2 MMOL/L (3.5-5.1) Chloride Level 97 MMOL/L (98-107) Carbon Dioxide Level 29 MMOL/L (21-32) Anion Gap 4 mmol/L (5-15) Blood Urea Nitrogen 83 mg/dL (7-18) Creatinine 4.6 MG/DL (0.55-1.30) Estimat Glomerular Filtration Rate 16.2 mL/min (>60) Glucose Level 141 MG/DL (74-106) Calcium Level 8.1 MG/DL (8.5-10.1) POC Whole Blood Glucose 112 MG/DL (74-106) Height (Feet): 5 Height (Inches): 8.00 Weight (Pounds): 143 Objective PHYSICAL EXAMINATION: VITAL SIGNS: reviewed HEAD AND NECK: Show status post tracheostomy. vent+ LUNGS: Coarse rhonchi and basilar rales. CARDIOVASCULAR: Shows irregular S1 and S2 with no gallop. ABDOMEN: Soft. Status post G-tube. EXTREMITIES: No pitting edema.++Left Jose Epperson MD Jul 07, 2020 06:51
--- NOTE | 2020-07-07 07:30 | NUR ---
NURSE NOTES: Received report from MAX Ardon. The patient is resting on the bed without acute distress or shortness of breath. The patient is AOx3, able to understand verbal communication, and able to make needs known via body movement. Communication made by facial expression and body movement. SR w/ HR of 60-70s on the security monitor. The patient is trach'ed and on ventilator on following setting and oxygen saturation is 100%: Shiley 8, AC 18, TV 500, FiO2 45%, PEEP 5. The patient's GT intact and patent without residual and running Vital AF 1.2 @ 50mL/hr. The patient's Sparrow and Rectal tube are intact and draining by gravity. The patient's skin issue noted and dressing intact. The patient has R AC 20G and L hand 22G PIVs those are intact and patent. The patient has R IJ non-tunneled HD cath for HD access and dressing intact. The patient is scheduled for HD today and VIP informed regarding HD order. The patient's bed in the lowest position, call light in reach, and fall and aspiration precaution reinforced. IV site intact and patent. Will follow up the lab and order. Will closely monitor the patient. Will continue plan of care.
--- NOTE | 2020-07-07 07:40 | NUR ---
NURSE HAND-OFF REPORT: Important Events on Shift:- Patient Status: Stable Diet: GT Pending Orders: Pending Results/Labs: Pending MD notification: Latest Vital Signs: Temperature 97.7 , Pulse 74 , B/P 151 /74 , Respiratory Rate 30 , O2 SAT 100 , Mechanical Ventilator, O2 Flow Rate 15.0 . Vital Sign Comment: EKG Rhythm: Sinus Rhythm Rhythm change?: N MD Notified?: N -Dr. Ruel BENDER Response: No New Orders Received Latest Santiago Fall Score: 95 Fall Risk: High Risk Safety Measures: Call light Within Reach, Bed Alarm Zone 2, Side Rails Side Rails x3, Bed position Low and Locked. Fall Precautions: Yellow Socks Yellow Gown Door Sign Patient Fall Education Report given to MAX Cervantes.
[2020-07-07 08:00] VITALS: BP 144/77
--- NOTE | 2020-07-07 08:00 | NUR ---
NURSE NOTES: Morning vital signs taken. Morning assessment done. The patient is stable at this time. Will continue plan of care.
--- NOTE | 2020-07-07 08:40 | NUR ---
NURSE NOTES: Dr. Tan was notified regarding abnormal lab including downtrending Hgb level from 7.[address] Tan, 1 unit pRBC to be transfused. Will carry out the order as soon as possible. Will continue plan of care.
[2020-07-07] MEDS: Ascorbic Acid 500mg tab GT SCH (08:55)
--- NOTE | 2020-07-07 10:00 | NUR ---
NURSE NOTES: Medications administered per order. The patient tolerated well. Tolerating vent setting and tube feeding well. Will closely monitor the patient. Will continue plan of care.
[2020-07-07 12:00] VITALS: BP 140/77
--- NOTE | 2020-07-07 12:00 | NUR ---
NURSE NOTES: BS 91 noted. The patient is asymptomatic. The patient is stable at this time. Will continue plan of care.
--- NOTE | 2020-07-07 12:00 | NUR ---
CASE MANAGEMENT:REVIEW SI; SEPSIS. PNA. ESRD~NEW HD. RESP FAILURE~TRACH/VENT DEPENDENT. 96.2 89 30 151/74 100% TRACH/VENT AC 18 TV 500 PEEP 5 FIO2 45% WBC 11.8 H/H 7.0/20.6 NA 130 K+ 5.2 BUN 83 CR 4.6 BG 141 IS;PREVACID GT Q12 VIT C GT QD EPOETIN ALEXX SQ -- SYNTHROID GT QD KALYN STATUS DCP;FROM [facility]
--- NOTE | 2020-07-07 12:30 | NUR ---
NURSE NOTES: HD started by Ms. Alexander per Dr. Honeycutt's order. The patient is tolerating well. Will closely monitor the patient. Will continue plan of care.
--- NOTE | 2020-07-07 13:10 | Surgery Progress Note ---
Surgery Progress Note Subjective Symptoms: improved Objective Last 24 Hour Vital Signs Date Time Temp Pulse Resp B/P (MAP) Pulse Ox O2 Delivery O2 Flow Rate FiO2 07/07/20 08:00 70 07/07/20 08:00 45 07/07/20 08:00 97.0 67 18 144/77 (99) 100 07/07/20 08:00 Mechanical Ventilator 07/07/20 07:06 67 21 45 07/07/20 04:00 Mechanical Ventilator 07/07/20 04:00 97.7 89 30 151/74 (99) 100 07/07/20 04:00 45 07/07/20 04:00 74 07/07/20 03:04 73 22 45 07/07/20 00:00 97.3 71 18 149/80 (103) 100 07/07/20 00:00 70 07/07/20 00:00 Mechanical Ventilator 07/07/20 00:00 45 07/06/20 22:43 69 25 45 07/06/20 20:00 70 07/06/20 20:00 Mechanical Ventilator 07/06/20 20:00 45 07/06/20 20:00 96.6 69 21 151/76 (101) 100 07/06/20 18:37 67 20 45 07/06/20 16:00 45 07/06/20 16:00 97.2 69 22 150/81 (104) 100 07/06/20 16:00 69 07/06/20 16:00 Mechanical Ventilator 07/06/20 15:05 68 20 45 I&O Intake and Output 07/06/20 07/07/20 19:00 07:00 Intake Total 700 ml 100 ml Output Total 145 ml Balance 555 ml 100 ml Free Water 150 ml 50 ml Tube Feeding 550 ml 50 ml Output Urine Total 125 ml Stool Total 20 ml Dressing: saturated Wound: clean Cardiovascular: RSR Respiratory: clear, decreased breath sounds Abdomen: soft, non-tender, present bowel sounds Extremities: no edema, no tenderness, no cyanosis Laboratory Tests Test 07/06/20 16:56 07/06/20 23:52 07/07/20 04:41 07/07/20 06:13 POC Whole Blood Glucose 120 MG/DL (74-106) H Pending 112 MG/DL (74-106) H White Blood Count 11.8 K/UL (4.8-10.8) H Red Blood Count 2.34 M/UL (4.70-6.10) L Hemoglobin 7.0 G/DL (14.2-18.0) L Hematocrit 20.6 % (42.0-52.0) L Mean Corpuscular Volume 88 FL (80-99) Mean Corpuscular Hemoglobin 30.0 PG (27.0-31.0) Mean Corpuscular Hemoglobin Concent 34.0 G/DL (32.0-36.0) Red Cell Distribution Width 16.8 % (11.6-14.8) H Platelet Count 188 K/UL (150-450) Mean Platelet Volume 9.1 FL (6.5-10.1) Neutrophils (%) (Auto) % (45.0-75.0) Lymphocytes (%) (Auto) % (20.0-45.0) Monocytes (%) (Auto) % (1.0-10.0) Eosinophils (%) (Auto) % (0.0-3.0) Basophils (%) (Auto) % (0.0-2.0) Sodium Level 130 MMOL/L (136-145) L Potassium Level 5.2 MMOL/L (3.5-5.1) H Chloride Level 97 MMOL/L (98-107) L Carbon Dioxide Level 29 MMOL/L (21-32) Anion Gap 4 mmol/L (5-15) L Blood Urea Nitrogen 83 mg/dL (7-18) H Creatinine 4.6 MG/DL (0.55-1.30) H Estimat Glomerular Filtration Rate 16.2 mL/min (>60) Glucose Level 141 MG/DL (74-106) H Calcium Level 8.1 MG/DL (8.5-10.1) L Test 07/07/20 12:48 POC Whole Blood Glucose 91 MG/DL (74-106) Plan Problems: (1) Leukocytosis Assessment & Plan: 54-year-old male multiple comorbidities admitted for abnormal chest x-ray potentially pneumonia leukocytosis abnormal labs. Patient identified to have a prior left BKA surgical sutures still in place as well as a surgical sacral wound with sutures in place. Considerations of dehiscence being identified and potential etiology of infection. After evaluation unlikely source of infection though the sacral wound was looked to be dehiscing at the inferior aspect. No acute surgical mention at this time We will discussed care plan with PCP Recommend follow-up with initial surgeon considerations of removal of surgical sutures Care plan initiated worsening lft's US ordered ? shayla monitor for bleeding from right chest wall cath change dressings Extensive airspace consolidations at the lung bases consistent with severe multifocal infiltrate. Associated, large bilateral pleural effusions. Evaluation of the abdominal viscera is markedly suboptimal due to poor CT technique and lack of intravenous contrast. No definite hepatic lesion. No definite cholelithiasis. Mild colon wall thickening. The spleen, pancreas, and adrenal glands are not visualized well enough reliable assessment. No definite hydronephrosis. The kidneys are hyperdense, correlate for medical renal disease. No nephrolithiasis. Sparrow catheter within a decompressed urinary bladder. Moderate diverticulosis, without acute diverticulitis. No small bowel obstruction. PEG tube presumably within the stomach. Atherosclerotic calcifications of the aorta. Low-attenuation of the intravascular blood pool, correlate for anemia. IVC filter, incidentally noted. Air within the subcutaneous fat overlying the sacrum with skin thickening, correlate with physical exam for sacral decubitus ulcer. Degenerative changes of the spine. Bilateral pars defects at L5 without anterolisthesis of L5 on S1. IMPRESSION: Extensive airspace consolidations at the lung bases consistent with severe multifocal infiltrate. Associated, large bilateral pleural effusions. Evaluation of the abdominal viscera is markedly suboptimal due to poor CT technique and lack of intravenous contrast. Moderate diverticulosis, without acute diverticulitis. No small bowel obstruction. PEG tube presumably within the stomach. Note, if there is suspicion for colitis consider repeat scan with improved CT technique/intravenous contrast. Mild gallbladder wall thickening without definite evidence of cholelithiasis. Air within the subcutaneous fat overlying the sacrum with skin thickening, correlate with physical exam for sacral decubitus ulcer. Bilateral pars defects at L5. The kidneys are hyperdense, correlate for medical renal disease.. There is prompt uptake within the liver with washout of radiotracer from the liver on subsequent imaging. There is excretion into the biliary ducts. Gallbladder activity is present in a timely fashion indicating patency of the cystic duct. Very scant bowel activity is demonstrated concerning for common bile duct obstruction or sphincter dysfunction. IMPRESSION: No evidence to suggest cholecystitis. Gallbladder activity is present in a timely fashion indicating patency of the cystic duct. Very little radiotracer noted in the small bowel. Correlate with LFTs as a degree of common bile duct obstruction or sphincter dysfunction not excluded. Consider further evaluation with MRCP. (2) Surgical wound dehiscence Assessment & Plan: Patient identified to have a left BKA surgical sutures in place flap looks like it is taken well no signs of infection at this time no signs of seroma hematoma or drainage. Unknown exact length or duration of potential prior left BKA and until then recommend leaving sutures in place as it may be too early though it does look well-healed. If able to obtain prior records we will be happy to remove sutures otherwise will need follow-up with primary surgeon furthermore patient identified to have a surgical wound in the sacral area seems he probably potentially had a stage IV sacral decubitus ulcer that had debridement and primary closure. Fortunately. Sutures are still in place and it looks like the inferior aspect may be slowly dehiscing. There is no significant drainage no foul odor no signs of active infection unknown if bone was palpable prior. Can consider removing surgical sutures but again would recommend obtaining prior records of possible prior to doing so. Also recommend following up with primary surgeon as this may need ongoing continued care. Will follow with recommendations and as information is available. Continue current care plan. Wash wounds daily with normal saline. Apply skin protectant Optifoam dressing. Turn every 2 hours. Offload pressure with pillows and air mattress. Nutritional optimization. Worsening leukocytosis. Patient continues to have dehiscence of the prior primarily closed sacral decubitus ulcer. The sutures are was nearly torn out and the wound is opening and saturating with stool with bowel movements now has rectal tube. Unfortunately I see significant concern given dehiscence and therefore sutures were cut at the bedside and wound immediately opened under some tension. Underlying Vicryl sutures identified. There is some backbleeding some granulation tissue but definitely no take or closure of the stage IV sacral decubitus ulcer that was identified. Nonexcisional debridement done with gauze and jorge layer of slough and biofilm was removed wound was cleaned packing dressings applied. No abscess no purulent drainage unlikely etiology of infection. (3) History of left below knee amputation (4) Malnutrition Assessment & Plan: DAILY ESTIMATED NEEDS: Needs based on Wound, critical care, underweight/ 55.5kg 25-33 (25-35 w/ HD) kcals/kg 6350-3425 (7267-1188) total kcals 1.25-2 g protein/kg 69-111 g total protein 25-30 mL/kg 5345-5918 total fluid mLs NUTRITION DIAGNOSIS: * Swallowing difficulty R/T respiratory status as evidenced by pt is trach/vent dep, PEG dep. CURRENT TF: Nepro @ 40ml/hr x24 hrs ENTERAL NUTRITION RECOMMENDATIONS: Nepro @ 40ml/hr x 24 hrs to provide 960ml, 1728kcal, 78g prot, 698ml free water * Maintain current TF * HOB over 30 degrees/ water flush per MD ADDITIONAL RECOMMENDATIONS: * Per SNF: HT=69" BM=089yhr -> rec daily calibrated bedscale wt * Monitor lytes: elev K-> now wnl, phos now low * Wound healing: RANDY BID + Nephrovite 1 tab qdaily * Monitor for bm, last bm 06/19, now 06/24 * W/ HD rec to add Prosource 1 pack qdaily for added 11g pro/day. (5) Anemia (6) KERRI (acute kidney injury) (7) Acute respiratory failure (8) Hyperkalemia (9) Anemia (10) Abnormal laboratory test result (11) Chronic respiratory failure (12) Hyperglycemia (13) Hypothyroidism Azar Mares Jul 07, 2020 13:10
--- NOTE | 2020-07-07 13:15 | NUR ---
NURSE NOTES: 1 unit pRBC transfusion started by HD nurse. The patient is tolerating well. Will closely monitor the patient. Will continue plan of care.
--- NOTE | 2020-07-07 13:42 | Pulmonology Progress Note ---
Subjective ROS Limited/Unobtainable: Yes Interval Events: FiO2 now 40%; Remains on vent. Constitutional: Denies: fever HEENT: Repors: no symptoms Respiratory: Reports: no symptoms Cardiovascular: Reports: no symptoms Gastrointestinal/Abdominal: Reports: diarrhea Genitourinary: Reports: no symptoms Psychiatric: Reports: other - on restraint Allergies: Coded Allergies: No Known Allergies (Unverified , 06/13/20) Objective Last 24 Hour Vital Signs Date Time Temp Pulse Resp B/P (MAP) Pulse Ox O2 Delivery O2 Flow Rate FiO2 07/07/20 08:00 70 07/07/20 08:00 45 07/07/20 08:00 97.0 67 18 144/77 (99) 100 07/07/20 08:00 Mechanical Ventilator 07/07/20 07:06 67 21 45 07/07/20 04:00 Mechanical Ventilator 07/07/20 04:00 97.7 89 30 151/74 (99) 100 07/07/20 04:00 45 07/07/20 04:00 74 07/07/20 03:04 73 22 45 07/07/20 00:00 97.3 71 18 149/80 (103) 100 07/07/20 00:00 70 07/07/20 00:00 Mechanical Ventilator 07/07/20 00:00 45 07/06/20 22:43 69 25 45 07/06/20 20:00 70 07/06/20 20:00 Mechanical Ventilator 07/06/20 20:00 45 07/06/20 20:00 96.6 69 21 151/76 (101) 100 07/06/20 18:37 67 20 45 07/06/20 16:00 45 07/06/20 16:00 97.2 69 22 150/81 (104) 100 07/06/20 16:00 69 07/06/20 16:00 Mechanical Ventilator 07/06/20 15:05 68 20 45 Intake and Output 07/06/20 07/07/20 19:00 07:00 Intake Total 700 ml 100 ml Output Total 145 ml Balance 555 ml 100 ml Free Water 150 ml 50 ml Tube Feeding 550 ml 50 ml Output Urine Total 125 ml Stool Total 20 ml General Appearance: no acute distress HEENT: status post trach Respiratory: chest wall non-tender, decreased breath sounds Cardiovascular: normal rate Abdomen: normal bowel sounds Extremities: no cyanosis Laboratory Tests 07/06/20 16:56: POC Whole Blood Glucose 120H 07/06/20 23:52: POC Whole Blood Glucose [Pending] 07/07/20 04:41: White Blood Count 11.8H, Red Blood Count 2.34L, Hemoglobin 7.0L, Hematocrit 20.6L, Mean Corpuscular Volume 88, Mean Corpuscular Hemoglobin 30.0, Mean Corpuscular Hemoglobin Concent 34.0, Red Cell Distribution Width 16.8H, Platelet Count 188, Mean Platelet Volume 9.1, Neutrophils (%) (Auto) , Lymphocytes (%) (Auto) , Monocytes (%) (Auto) , Eosinophils (%) (Auto) , Basophils (%) (Auto) , Sodium Level 130L, Potassium Level 5.2H, Chloride Level 97L, Carbon Dioxide Level 29, Anion Gap 4L, Blood Urea Nitrogen 83H, Creatinine 4.6H, Estimat Glomerular Filtration Rate 16.2, Glucose Level 141H, Calcium Level 8.1L 07/07/20 06:13: POC Whole Blood Glucose 112H 07/07/20 12:48: POC Whole Blood Glucose 91 Current Medications Medications (Trade) Dose Ordered Sig/Maryjane Route PRN Reason Start Time Stop Time Status Last Admin Dose Admin Acetaminophen (Tylenol) 650 mg Q4H PRN GT Mild Pain (Pain Scale 1-3) 06/18/20 23:00 07/18/20 22:59 Acetaminophen (Tylenol) 650 mg Q4HR PRN GT FEVER 06/14/20 09:45 07/14/20 09:44 06/19/20 20:45 Aluminum Hydroxide (Amphojel) 1,920 mg Q6H GT 06/17/20 10:00 07/17/20 09:59 07/07/20 09:00 Ascorbic Acid (Vitamin C) 500 mg DAILY GT 07/01/20 09:00 07/31/20 08:59 07/07/20 08:55 Chlorhexidine Gluconate (Inés-Hex 2%) 1 applic DAILY@1999 TOPIC 06/21/20 20:00 09/19/20 19:59 07/06/20 20:34 Dextrose (Dextrose 50%) 25 ml Q30M PRN IV Hypoglycemia 06/28/20 18:30 09/26/20 18:29 Dextrose (Dextrose 50%) 50 ml Q30M PRN IV Hypoglycemia 06/28/20 18:30 09/26/20 18:29 Epoetin Bonilla (Epoetin Bonilla(ESRD on dialysis)) 10,000 unit TUE-TUE-TUE SUBQ 07/02/20 21:00 09/16/20 20:59 07/04/20 21:45 Haloperidol Lactate (Haldol) 5 mg Q6H PRN IM Agitation 06/21/20 23:15 08/05/20 23:14 06/25/20 18:17 Insulin Aspart (NovoLOG) EVERY 6 HOURS SUBQ 06/29/20 00:00 09/27/20 00:00 07/06/20 23:55 Lansoprazole (Prevacid) 30 mg Q12HR GT 06/30/20 21:00 07/30/20 20:59 07/07/20 08:55 Levothyroxine Sodium (Synthroid) 88 mcg DAILY@0630 GT 07/03/20 06:30 08/02/20 06:29 07/07/20 06:13 Vancomycin HCl ([facility] pharmacy to dose) 1 ea DAILY PRN MISC Per rx protocol 06/27/20 11:30 07/18/20 23:59 Assessment/Plan Problems: (1) Acute respiratory failure Assessment/Plan IMPRESSION: 1. Chronic respiratory failure. 2. Hypoxemia. 3. Respiratory acidosis. 4. Anemia. 5. Leukocytosis. 6. DVT 7. S/p code blue 06/19/20 DISCUSSION: The patient's x-ray is markedly abnormal with bilateral infiltrates. I suspect he has pulmonary fibrosis. Latest CXR is unchanged to slightly improved COVID 19 pcr and antigen both negative No anticoagulation for DVT due to anemia S/p IVC filter placement Continue assist-control mechanical ventilation; currently FiO2 40%; SaO2 100%, broad-spectrum antibiotics. Transfusion as needed. Will continue PEEP to 8; S/p HD WIll decrease FiO2 as tolerated S/p permacath I will follow carefully. Hugo Carl Omar Syed MD Jul 07, 2020 13:42
--- NOTE | 2020-07-07 13:45 | NUR ---
NURSE NOTES: Completed 1 unit pRBC transfusion by HD nurse. The patient tolerated well. No transfusion reaction noted. Will closely monitor the patient. Will closely monitor the patient. Will continue plan of care.
--- NOTE | 2020-07-07 13:58 | Nephrology Progress Note ---
Assessment/Plan Problem List: (1) KERRI (acute kidney injury) (2) Acute respiratory failure (3) Chronic respiratory failure (4) Anemia (5) Hyperkalemia Assessment Acute on chronic renal failure Anemia Respiratory failure acute on chronic Respiratory acidosis and hypoxia Hyperkalemia Plan July 07: Labs reviewed. Dialysis today. Abnormal electrolytes will be. Discussed with RN. Resolved after dialysis. Continue per consultants July 06: Labs reviewed. Dialyzed July 04. Due for dialysis July 07. Continue per consultants. July 05: Labs reviewed. Dialyzed yesterday. Electrolytes and renal parameters stable. Continue per consultants. Continue dialysis as needed. July 04: Labs reviewed. Due for dialysis today. Continue to monitor electrolytes and hemoglobin hematocrit. Continue per consultants. July 03: Lab reviewed. Will defer dialysis for July 04. Some blood oozing from the catheter site. General surgery to be informed. Electrolytes stable. Continue as is. July 02: Labs reviewed. Due for dialysis tomorrow. Hemoglobin higher. Stable electrolytes. Continue per consultants. July 01: Labs reviewed. Dialyzed yesterday. Patient has a permacath. Continue per consultants. Worsening anemia noted, deferred to funeral sales manager. June 30: Labs reviewed. Due for dialysis today. Patient appears to be needing hemodialysis for sometimes incoming future. Will arrange for placement of a tunneled catheter. Continue per consultants. Anemia management per funeral sales manager. June 29: Labs reviewed. Hemoglobin is higher. Next hemodialysis tomorrow June 30. Continue per consultants. June 28: Labs reviewed. Last dialyzed June 26. Hemoglobin remains low. Defer transfusion and work-up to funeral sales manager. Continue to follow-up renal parameters. June 27: Labs reviewed. Dialyzed yesterday. Hemoglobin low. Due for transfusion. Continue to monitor renal parameters and hemoglobin and hematocrit. June 26: Labs reviewed. Due for dialysis today. Continue per consultants. Continue to monitor liver enzymes. June 25: Labs reviewed. Will dialyze tomorrow. Continue per consultants. Check liver function enzymes. June 24: Dialyzed yesterday. Labs reviewed. Medication list reviewed. Liver enzymes remains elevated. Continue to monitor electrolytes renal parameters and LFTs. Hemodialysis in a.m. if needed. June 23: Patient will be dialyzed today again. Labs reviewed. Serum creatinine higher. Elevated liver enzymes persist. Patient full code. Continue per consultants. June 22: Patient dialyzed yesterday. Labs reviewed. Liver function tests and enzymes are elevated. Continue to monitor renal parameters and LFTs. Continue per consultants. Patient full code. June 21: Patient due for dialysis today. Labs and medication list reviewed. Discussed with RN. Continue to monitor renal parameters. June 20: Patient had an episode of bradycardia last night. Serum creatinine rising. Patient continues to have respiratory acidosis. Discussed with RN Varun. Will order non tunneled dialysis catheter placement for initiation of dialysis treatment due to acute renal failure. Patient remains full code. I favor comfort care if bioethics consultation is sought and physicians on the team agreeable. June 19: No CHEM panel today. Low hemoglobin as of yesterday's lab results. Anemia management per Dr. Cueva. Continue to monitor renal parameters. June 18: Labs are reviewed. Hemoglobin lower. Creatinine higher. ABG not done yet. Patient full code. Continue per consultants. June 17: Labs reviewed. Hemoglobin low. Creatinine up to 3. Phosphorus levels elevated. Will start Amphojel via GT tube as a phosphorus binder. Monitor renal parameters. Check ABG. Continue per consultants. June 16: Labs reviewed. Serum creatinine mariana to 2.6. Abnormal electrolytes now normalized. Continue to monitor renal parameters and avoid nephrotoxic's. Continue to adjust pulmonary status as possible. June 15: ABG pH of 7.1. 2D echo suggestive of ejection fraction of 50%. Labs reviewed. Serum creatinine mariana. Will hold IV Lasix. Will give Kayexalate for high potassium and 1 amp of sodium bicarb. Albumin IV bolus given. Continue per consultants. Continue to monitor renal parameters. Kidney ultrasound ordered. June 14: As follow Pulmonary evaluation Sparrow catheter Hold IV fluid IV fluid, until 2D echo results available Kayexalate for high potassium IV Protonix 2D echocardiogram Anemia work-up More labs ordered Subjective ROS Limited/Unobtainable: Yes Objective Objective Last 24 Hour Vital Signs Date Time Temp Pulse Resp B/P (MAP) Pulse Ox O2 Delivery O2 Flow Rate FiO2 07/07/20 12:00 Mechanical Ventilator 07/07/20 12:00 97.0 70 18 140/77 (98) 100 07/07/20 12:00 45 07/07/20 12:00 70 07/07/20 08:00 70 07/07/20 08:00 45 07/07/20 08:00 97.0 67 18 144/77 (99) 100 07/07/20 08:00 Mechanical Ventilator 07/07/20 07:06 67 21 45 07/07/20 04:00 Mechanical Ventilator 07/07/20 04:00 97.7 89 30 151/74 (99) 100 07/07/20 04:00 45 07/07/20 04:00 74 07/07/20 03:04 73 22 45 07/07/20 00:00 97.3 71 18 149/80 (103) 100 07/07/20 00:00 70 07/07/20 00:00 Mechanical Ventilator 07/07/20 00:00 45 07/06/20 22:43 69 25 45 07/06/20 20:00 70 07/06/20 20:00 Mechanical Ventilator 07/06/20 20:00 45 07/06/20 20:00 96.6 69 21 151/76 (101) 100 07/06/20 18:37 67 20 45 07/06/20 16:00 45 07/06/20 16:00 97.2 69 22 150/81 (104) 100 07/06/20 16:00 69 07/06/20 16:00 Mechanical Ventilator 07/06/20 15:05 68 20 45 Intake and Output 07/06/20 07/07/20 19:00 07:00 Intake Total 700 ml 100 ml Output Total 145 ml Balance 555 ml 100 ml Free Water 150 ml 50 ml Tube Feeding 550 ml 50 ml Output Urine Total 125 ml Stool Total 20 ml Current Medications Medications (Trade) Dose Ordered Sig/Maryjane Route PRN Reason Start Time Stop Time Status Last Admin Dose Admin Acetaminophen (Tylenol) 650 mg Q4H PRN GT Mild Pain (Pain Scale 1-3) 06/18/20 23:00 07/18/20 22:59 Acetaminophen (Tylenol) 650 mg Q4HR PRN GT FEVER 06/14/20 09:45 07/14/20 09:44 06/19/20 20:45 Aluminum Hydroxide (Amphojel) 1,920 mg Q6H GT 06/17/20 10:00 07/17/20 09:59 07/07/20 09:00 Ascorbic Acid (Vitamin C) 500 mg DAILY GT 07/01/20 09:00 07/31/20 08:59 07/07/20 08:55 Chlorhexidine Gluconate (Inés-Hex 2%) 1 applic DAILY@1999 TOPIC 06/21/20 20:00 09/19/20 19:59 07/06/20 20:34 Dextrose (Dextrose 50%) 25 ml Q30M PRN IV Hypoglycemia 06/28/20 18:30 09/26/20 18:29 Dextrose (Dextrose 50%) 50 ml Q30M PRN IV Hypoglycemia 06/28/20 18:30 09/26/20 18:29 Epoetin Bonilla (Epoetin Bonilla(ESRD on dialysis)) 10,000 unit TUE-TUE-TUE SUBQ 07/02/20 21:00 09/16/20 20:59 07/04/20 21:45 Haloperidol Lactate (Haldol) 5 mg Q6H PRN IM Agitation 06/21/20 23:15 08/05/20 23:14 06/25/20 18:17 Insulin Aspart (NovoLOG) EVERY 6 HOURS SUBQ 06/29/20 00:00 09/27/20 00:00 07/06/20 23:55 Lansoprazole (Prevacid) 30 mg Q12HR GT 06/30/20 21:00 07/30/20 20:59 07/07/20 08:55 Levothyroxine Sodium (Synthroid) 88 mcg DAILY@0630 GT 07/03/20 06:30 08/02/20 06:29 07/07/20 06:13 Vancomycin HCl ([facility] pharmacy to dose) 1 ea DAILY PRN MISC Per rx protocol 06/27/20 11:30 07/18/20 23:59 Laboratory Tests 07/06/20 16:56: POC Whole Blood Glucose 120H 07/06/20 23:52: POC Whole Blood Glucose [Pending] 07/07/20 04:41: White Blood Count 11.8H, Red Blood Count 2.34L, Hemoglobin 7.0L, Hematocrit 20.6L, Mean Corpuscular Volume 88, Mean Corpuscular Hemoglobin 30.0, Mean Corpuscular Hemoglobin Concent 34.0, Red Cell Distribution Width 16.8H, Platelet Count 188, Mean Platelet Volume 9.1, Neutrophils (%) (Auto) , Lymphocytes (%) (Auto) , Monocytes (%) (Auto) , Eosinophils (%) (Auto) , Basophils (%) (Auto) , Sodium Level 130L, Potassium Level 5.2H, Chloride Level 97L, Carbon Dioxide Level 29, Anion Gap 4L, Blood Urea Nitrogen 83H, Creatinine 4.6H, Estimat Glomerular Filtration Rate 16.2, Glucose Level 141H, Calcium Level 8.1L 07/07/20 06:13: POC Whole Blood Glucose 112H 07/07/20 12:48: POC Whole Blood Glucose 91 Height (Feet): 5 Height (Inches): 8.00 Weight (Pounds): 143 General Appearance: no apparent distress EENT: other - Trach to vent Cardiovascular: normal rate Respiratory/Chest: decreased breath sounds Abdomen: distended Leonidas Honeycutt MD Jul 07, 2020 13:58
--- NOTE | 2020-07-07 14:30 | NUR ---
NURSE NOTES: The patient is getting HD in a safe manner. The patient is tolerating vent setting and tube feeding well. Will closely monitor the patient. Will continue plan of care.
--- NOTE | 2020-07-07 14:37 | Cardiac Electrophysiology PN ---
Assessment/Plan Assessment/Plan 1. Vent-dependent respirator failure. S/P tracheostomy. On 50% Fio2 Chest x-ray extensive bilateral pneumonia or ARDS. Off isolation EF 50%. Ruled out for HI On iv Abx 2. Sinus Tachycardia, likely due to respiratory failure and sepsis 3. Right femoral vein DVT. S/P IVC filter 06/18 4. Dysphagia, status post PEG placement. 5. Renal failure. S/P Right IJ Iron and on HD by Dr. Honeycutt. 6. Severe anemia, S/P multiple PRBCs for hematuria 7. High LFTs, s/p CT abdomen and pelvis and HIDA FU Dr Stringer 8. Transient bradycardia, resolved DW RN and Dr Honeycutt Subjective Subjective On the Vent off isolation. On 45% Fio2 and PEEP 5. S/P IVC filter S/P Right IJ Iron and first HD 06/21/20 Had [employer] as HR dropped to 30 at 4 am 06/25/20 Got PRBC 06/27 and 06/28 as Hb dropped to 5.6 HD and PRBC again today Objective Last 24 Hour Vital Signs Date Time Temp Pulse Resp B/P (MAP) Pulse Ox O2 Delivery O2 Flow Rate FiO2 07/07/20 12:00 Mechanical Ventilator 07/07/20 12:00 97.0 70 18 140/77 (98) 100 07/07/20 12:00 45 07/07/20 12:00 70 07/07/20 08:00 70 07/07/20 08:00 45 07/07/20 08:00 97.0 67 18 144/77 (99) 100 07/07/20 08:00 Mechanical Ventilator 07/07/20 07:06 67 21 45 07/07/20 04:00 Mechanical Ventilator 07/07/20 04:00 97.7 89 30 151/74 (99) 100 07/07/20 04:00 45 07/07/20 04:00 74 07/07/20 03:04 73 22 45 07/07/20 00:00 97.3 71 18 149/80 (103) 100 07/07/20 00:00 70 07/07/20 00:00 Mechanical Ventilator 07/07/20 00:00 45 07/06/20 22:43 69 25 45 07/06/20 20:00 70 07/06/20 20:00 Mechanical Ventilator 07/06/20 20:00 45 07/06/20 20:00 96.6 69 21 151/76 (101) 100 07/06/20 18:37 67 20 45 07/06/20 16:00 45 07/06/20 16:00 97.2 69 22 150/81 (104) 100 07/06/20 16:00 69 07/06/20 16:00 Mechanical Ventilator 07/06/20 15:05 68 20 45 Intake and Output 07/06/20 07/07/20 19:00 07:00 Intake Total 700 ml 100 ml Output Total 145 ml Balance 555 ml 100 ml Free Water 150 ml 50 ml Tube Feeding 550 ml 50 ml Output Urine Total 125 ml Stool Total 20 ml Laboratory Tests Test 07/06/20 16:56 07/06/20 23:52 07/07/20 04:41 07/07/20 06:13 POC Whole Blood Glucose 120 MG/DL (74-106) H Pending 112 MG/DL (74-106) H White Blood Count 11.8 K/UL (4.8-10.8) H Red Blood Count 2.34 M/UL (4.70-6.10) L Hemoglobin 7.0 G/DL (14.2-18.0) L Hematocrit 20.6 % (42.0-52.0) L Mean Corpuscular Volume 88 FL (80-99) Mean Corpuscular Hemoglobin 30.0 PG (27.0-31.0) Mean Corpuscular Hemoglobin Concent 34.0 G/DL (32.0-36.0) Red Cell Distribution Width 16.8 % (11.6-14.8) H Platelet Count 188 K/UL (150-450) Mean Platelet Volume 9.1 FL (6.5-10.1) Neutrophils (%) (Auto) % (45.0-75.0) Lymphocytes (%) (Auto) % (20.0-45.0) Monocytes (%) (Auto) % (1.0-10.0) Eosinophils (%) (Auto) % (0.0-3.0) Basophils (%) (Auto) % (0.0-2.0) Sodium Level 130 MMOL/L (136-145) L Potassium Level 5.2 MMOL/L (3.5-5.1) H Chloride Level 97 MMOL/L (98-107) L Carbon Dioxide Level 29 MMOL/L (21-32) Anion Gap 4 mmol/L (5-15) L Blood Urea Nitrogen 83 mg/dL (7-18) H Creatinine 4.6 MG/DL (0.55-1.30) H Estimat Glomerular Filtration Rate 16.2 mL/min (>60) Glucose Level 141 MG/DL (74-106) H Calcium Level 8.1 MG/DL (8.5-10.1) L Test 07/07/20 12:48 POC Whole Blood Glucose 91 MG/DL (74-106) Objective HEAD AND NECK: Status post tracheostomy. Right IJ Iron in place LUNGS: Coarse rhonchi and basilar rales. CARDIOVASCULAR: Irregular S1 and S2 with no gallop. ABDOMEN: Soft. Status post G-tube. EXTREMITIES: No pitting edema. Lance Mcguire MD Jul 07, 2020 14:37
--- NOTE | 2020-07-07 15:11 | NUR ---
ARTIST WOODBLOCK NOTE S/W [facility] CONV [phone]. REQUESTS CURRENT COVID RESULT PRIOR TO ADMISSION. STATED THAT PATIENTS NEED AN FIO2 OF <40% PER RT PROTOCOL. S/W RN JOHNATHAN IN RE TO FIO2 REQUIREMENTS FOR SNF. RN WILL TITRATE FIO2 AFTER PATIENTS COMPLETES BEDSIDE HD. [facility] ALSO REQUESTS FOR UPDATED CLINICALS BE FAXED TO [facility]. CLINICALS AND INPT HD INFO FAXED TO [facility] P [phone] F [phone]
--- NOTE | 2020-07-07 15:58 | Infectious Diseases Prog Note ---
Assessment/Plan Assessment/Plan IMPRESSION: Pneumonia with Pseudomonas & Providencia Hypothermia COVID19 X 2: negative Ventilator-dependent respiratory failure, Diabetes mellitus type 2, Hypertension, History of left BKA, Hypertension, anemia, Major depression, Pressure ulcer, Elevated transaminase, Hyperkalemia. Anemia R leg DVT s/p IVC filter Sacral osteomyelitis Severe anemia Acute renal failure ESRD Hypercapnic respiratory failure Hematuria Thrombocytopenia Diverticulosis Diarrhea, C. difficile negative RECOMMENDATION: Continue Vancomycin until 07/18 Start on Cefepime & Gentamicin inhaler Repeat CXR Subjective ROS Limited/Unobtainable: Yes Constitutional: Denies: fever Psychiatric: Reports: other - off of restraint Allergies: Coded Allergies: No Known Allergies (Unverified , 06/13/20) Objective Last 24 Hour Vital Signs Date Time Temp Pulse Resp B/P (MAP) Pulse Ox O2 Delivery O2 Flow Rate FiO2 07/07/20 12:00 Mechanical Ventilator 07/07/20 12:00 97.0 70 18 140/77 (98) 100 07/07/20 12:00 45 07/07/20 12:00 70 07/07/20 08:00 70 07/07/20 08:00 45 07/07/20 08:00 97.0 67 18 144/77 (99) 100 07/07/20 08:00 Mechanical Ventilator 07/07/20 07:06 67 21 45 07/07/20 04:00 Mechanical Ventilator 07/07/20 04:00 97.7 89 30 151/74 (99) 100 07/07/20 04:00 45 07/07/20 04:00 74 07/07/20 03:04 73 22 45 07/07/20 00:00 97.3 71 18 149/80 (103) 100 07/07/20 00:00 70 07/07/20 00:00 Mechanical Ventilator 07/07/20 00:00 45 07/06/20 22:43 69 25 45 07/06/20 20:00 70 07/06/20 20:00 Mechanical Ventilator 07/06/20 20:00 45 07/06/20 20:00 96.6 69 21 151/76 (101) 100 07/06/20 18:37 67 20 45 07/06/20 16:00 45 07/06/20 16:00 97.2 69 22 150/81 (104) 100 07/06/20 16:00 69 07/06/20 16:00 Mechanical Ventilator Height (Feet): 5 Height (Inches): 8.00 Weight (Pounds): 143 HEENT: status post trach Respiratory/Chest: other - ventilator Cardiovascular: normal rate Abdomen: soft, non tender, other - GT feeding Extremities: other - Left BKA Neurologic/Psychiatric: other - drowsy Laboratory Tests Test 07/06/20 16:56 07/06/20 23:52 07/07/20 04:41 07/07/20 06:13 POC Whole Blood Glucose 120 MG/DL (74-106) H Pending 112 MG/DL (74-106) H White Blood Count 11.8 K/UL (4.8-10.8) H Red Blood Count 2.34 M/UL (4.70-6.10) L Hemoglobin 7.0 G/DL (14.2-18.0) L Hematocrit 20.6 % (42.0-52.0) L Mean Corpuscular Volume 88 FL (80-99) Mean Corpuscular Hemoglobin 30.0 PG (27.0-31.0) Mean Corpuscular Hemoglobin Concent 34.0 G/DL (32.0-36.0) Red Cell Distribution Width 16.8 % (11.6-14.8) H Platelet Count 188 K/UL (150-450) Mean Platelet Volume 9.1 FL (6.5-10.1) Neutrophils (%) (Auto) % (45.0-75.0) Lymphocytes (%) (Auto) % (20.0-45.0) Monocytes (%) (Auto) % (1.0-10.0) Eosinophils (%) (Auto) % (0.0-3.0) Basophils (%) (Auto) % (0.0-2.0) Sodium Level 130 MMOL/L (136-145) L Potassium Level 5.2 MMOL/L (3.5-5.1) H Chloride Level 97 MMOL/L (98-107) L Carbon Dioxide Level 29 MMOL/L (21-32) Anion Gap 4 mmol/L (5-15) L Blood Urea Nitrogen 83 mg/dL (7-18) H Creatinine 4.6 MG/DL (0.55-1.30) H Estimat Glomerular Filtration Rate 16.2 mL/min (>60) Glucose Level 141 MG/DL (74-106) H Calcium Level 8.1 MG/DL (8.5-10.1) L Test 07/07/20 12:48 POC Whole Blood Glucose 91 MG/DL (74-106) Current Medications Medications (Trade) Dose Ordered Sig/Maryjane Route PRN Reason Start Time Stop Time Status Last Admin Dose Admin Acetaminophen (Tylenol) 650 mg Q4H PRN GT Mild Pain (Pain Scale 1-3) 06/18/20 23:00 07/18/20 22:59 Acetaminophen (Tylenol) 650 mg Q4HR PRN GT FEVER 06/14/20 09:45 07/14/20 09:44 06/19/20 20:45 Aluminum Hydroxide (Amphojel) 1,920 mg Q6H GT 06/17/20 10:00 07/17/20 09:59 07/07/20 15:31 Ascorbic Acid (Vitamin C) 500 mg DAILY GT 07/01/20 09:00 07/31/20 08:59 07/07/20 08:55 Chlorhexidine Gluconate (Inés-Hex 2%) 1 applic DAILY@1999 TOPIC 06/21/20 20:00 09/19/20 19:59 07/06/20 20:34 Dextrose (Dextrose 50%) 25 ml Q30M PRN IV Hypoglycemia 06/28/20 18:30 09/26/20 18:29 Dextrose (Dextrose 50%) 50 ml Q30M PRN IV Hypoglycemia 06/28/20 18:30 09/26/20 18:29 Epoetin Bonilla (Epoetin Bonilla(ESRD on dialysis)) 10,000 unit SUBQ 07/02/20 21:00 09/16/20 20:59 07/04/20 21:45 Haloperidol Lactate (Haldol) 5 mg Q6H PRN IM Agitation 06/21/20 23:15 08/05/20 23:14 06/25/20 18:17 Insulin Aspart (NovoLOG) EVERY 6 HOURS SUBQ 06/29/20 00:00 09/27/20 00:00 07/06/20 23:55 Lansoprazole (Prevacid) 30 mg Q12HR GT 06/30/20 21:00 07/30/20 20:59 07/07/20 08:55 Levothyroxine Sodium (Synthroid) 88 mcg DAILY@0630 GT 07/03/20 06:30 08/02/20 06:29 07/07/20 06:13 Vancomycin HCl ([facility] pharmacy to dose) 1 ea DAILY PRN MISC Per rx protocol 06/27/20 11:30 07/18/20 23:59 Paul Amador MD Jul 07, 2020 15:58
[2020-07-07 16:00] VITALS: BP 154/58
[2020-07-07] MEDS ORDERED: Cefepime HCl 1 GM in D5W 55 ML IVPB SCH (16:00)
--- NOTE | 2020-07-07 16:00 | NUR ---
NURSE NOTES: New onset SR w/ PVC after HD. Dr. Apple and Dr. Mcguire were notified. The patient is asymptomatic and stable. No new order at this time. Will continue plan of care.
--- NOTE | 2020-07-07 16:00 | NUR ---
NURSE NOTES: Completed HD per order. The patient tolerated well. 1L out per order. Will closely monitor the patient. Will continue plan of care.
--- NOTE | 2020-07-07 16:30 | NUR ---
NURSE NOTES: Bed bath given to the patient. The patient tolerated well. Tried to start Cefepime per order. Per patient, he does not want to get it but would like to get it later. Will closely monitor the patient. Will continue plan of care.
--- NOTE | 2020-07-07 17:20 | NUR ---
NURSE NOTES: Spoke with Isaac, the pharmacist regarding Cefepime 1gm order. Per Isaac, Cefepime 1gm one time dose is correct order but got discontinued at 1700 since it is one time order (1hr limit). Explained to Isaac that the patient refused at first and was able to administer as late dose. Per Isaac, it is okay since it is right dose and frequency of medication but only late per patient request. Will continue plan of care.
--- NOTE | 2020-07-07 18:00 | NUR ---
NURSE NOTES: BS 111 noted. No coverage per protocol. The patient is stable at this time. Tolerating vent setting and tube feeding well. Will closely monitor the patient. Will continue plan fo care.
--- NOTE | 2020-07-07 19:20 | NUR ---
NURSE NOTES: Receive report from MAX Cervantes. Pt awake in bed, eyes open, follows commands, afebrile and no respiratory distress noted. On vent trach shiley 8, AC 16, Tidal volume 500, Fi O2 45%, P5 saturating at 97%. On Vital AF @ 50cc/hr via GT, intact, patent, flushed well. No residual noted. . PT tolerating well. With Right IJ non tunneled dialysis catheter intact, asymptomatic. Dressing intact and. With left hand 22g and right AC 20g iv lines intact, patent and asymptomatic. with Sparrow catheter to urine bag draining well with dark gerard yellow. With both soft wrist restraints .Skin is intact, pulses are palpable. HOB elevated. Needs were attended. Call light within reach. Bed rails are up and wheels are up. Bed alarm is on. Will continue plan of care.
--- NOTE | 2020-07-07 19:30 | NUR ---
NURSE HAND-OFF REPORT: Important Events on Shift: HD per order_ 1L out, 1 unit pRBC transfusion per order, new onset PVC_ Dr. Lipscomb and Dr. Mcguire notified Patient Status: Stable, Full code Diet: GTF Vital AF 1.2 @ 50mL/hr Pending Orders: N Pending Results/Labs: N Pending MD notification: N Latest Vital Signs: Temperature 97.8 , Pulse 77 , B/P 154 /58 , Respiratory Rate 19 , O2 SAT 100 , Mechanical Ventilator, O2 Flow Rate 15.0 . Vital Sign Comment: Stable EKG Rhythm: Sinus Rhythm Rhythm change?: N MD Notified?: N -Dr. Ruel BENDER Response: No New Orders Received Latest Santiago Fall Score: 75 Fall Risk: High Risk Safety Measures: Call light Within Reach, Bed Alarm Zone 2, Side Rails Side Rails x3, Bed position Low and Locked. Fall Precautions: Yellow Socks Yellow Gown Door Sign Patient Fall Education Report given to MAX Quinones. The patient is stable at this time. Endorsed plan of care.
[2020-07-07 20:00] VITALS: BP 143/70
[2020-07-07] MEDS: Dyna-Hex 2% Top Sol 2oz TOPIC SCH (20:46)
[2020-07-07] MEDS: Epoetin Alfa-EPBX(ESRD on dialysis)10,000 unit/ml vial SUBQ SCH (20:47)
--- NOTE | 2020-07-07 20:54 | General Progress Note ---
Subjective ROS Limited/Unobtainable: Yes Allergies: Coded Allergies: No Known Allergies (Unverified , 06/13/20) Objective Last 24 Hour Vital Signs Date Time Temp Pulse Resp B/P (MAP) Pulse Ox O2 Delivery O2 Flow Rate FiO2 07/07/20 20:00 Mechanical Ventilator 07/07/20 20:00 45 07/07/20 20:00 97.5 77 22 143/70 (94) 100 07/07/20 19:42 77 19 45 07/07/20 19:01 77 07/07/20 16:00 97.8 79 18 154/58 (90) 100 07/07/20 16:00 45 07/07/20 16:00 76 07/07/20 16:00 Mechanical Ventilator 07/07/20 14:53 82 20 45 07/07/20 12:00 Mechanical Ventilator 07/07/20 12:00 97.0 70 18 140/77 (98) 100 07/07/20 12:00 45 07/07/20 12:00 70 07/07/20 11:11 72 21 45 07/07/20 08:00 70 07/07/20 08:00 45 07/07/20 08:00 97.0 67 18 144/77 (99) 100 07/07/20 08:00 Mechanical Ventilator 07/07/20 07:06 67 21 45 07/07/20 04:00 Mechanical Ventilator 07/07/20 04:00 97.7 89 30 151/74 (99) 100 07/07/20 04:00 45 07/07/20 04:00 74 07/07/20 03:04 73 22 45 07/07/20 00:00 97.3 71 18 149/80 (103) 100 07/07/20 00:00 70 07/07/20 00:00 Mechanical Ventilator 07/07/20 00:00 45 07/06/20 22:43 69 25 45 Intake and Output 07/06/20 07/07/20 19:00 07:00 Intake Total 700 ml 100 ml Output Total 145 ml Balance 555 ml 100 ml Free Water 150 ml 50 ml Tube Feeding 550 ml 50 ml Output Urine Total 125 ml Stool Total 20 ml Laboratory Tests 07/06/20 23:52: POC Whole Blood Glucose [Pending] 07/07/20 04:41: White Blood Count 11.8H, Red Blood Count 2.34L, Hemoglobin 7.0L, Hematocrit 20.6L, Mean Corpuscular Volume 88, Mean Corpuscular Hemoglobin 30.0, Mean Corpuscular Hemoglobin Concent 34.0, Red Cell Distribution Width 16.8H, Platelet Count 188, Mean Platelet Volume 9.1, Neutrophils (%) (Auto) , Lymphocytes (%) (Auto) , Monocytes (%) (Auto) , Eosinophils (%) (Auto) , Basophils (%) (Auto) , Sodium Level 130L, Potassium Level 5.2H, Chloride Level 97L, Carbon Dioxide Level 29, Anion Gap 4L, Blood Urea Nitrogen 83H, Creatinine 4.6H, Estimat Glomerular Filtration Rate 16.2, Glucose Level 141H, Calcium Level 8.1L 07/07/20 06:13: POC Whole Blood Glucose 112H 07/07/20 12:48: POC Whole Blood Glucose 91 07/07/20 16:54: POC Whole Blood Glucose 111H Height (Feet): 5 Height (Inches): 8.00 Weight (Pounds): 143 Assessment/Plan Problem List: (1) Anemia ICD Codes: D64.9 - Anemia, unspecified SNOMED: 110643270 (2) KERRI (acute kidney injury) ICD Codes: N17.9 - Acute kidney failure, unspecified SNOMED: 5769835, 58486303 (3) Acute respiratory failure ICD Codes: J96.00 - Acute respiratory failure, unspecified whether with hypoxia or hypercapnia SNOMED: 99558345 Qualifiers: Qualified Codes: J96.02 - Acute respiratory failure with hypercapnia (4) Hyperkalemia ICD Codes: E87.5 - Hyperkalemia SNOMED: 67668597 (5) Abnormal laboratory test result ICD Codes: R89.9 - Unspecified abnormal finding in specimens from other organs, systems and tissues SNOMED: 416313823 (6) Anemia ICD Codes: D64.9 - Anemia, unspecified SNOMED: 038030781 Status: progressing Assessment/Plan: sacral wound dehiscence afebrile lytes anemia s/p pulmonary edema pvc s/p acute mi Neida Apple MD Jul 07, 2020 20:54
--- NOTE | 2020-07-07 22:00 | NUR ---
NURSE NOTES: Pt awake in bed , watching tv. No respiratory distress noted. Continue to monitor the patient.
--- NOTE | 2020-07-07 23:43 | General Progress Note ---
Subjective Allergies: Coded Allergies: No Known Allergies (Unverified , 06/13/20) Subjective above noted stools liquid, in rectal tube brown - small volume tolerating TF LFT still elevated but slowly declining all liver serologic w/u except CMV PCR still pending Objective Last 24 Hour Vital Signs Date Time Temp Pulse Resp B/P (MAP) Pulse Ox O2 Delivery O2 Flow Rate FiO2 07/07/20 20:00 Mechanical Ventilator 07/07/20 20:00 45 07/07/20 20:00 97.5 77 22 143/70 (94) 100 07/07/20 19:42 77 19 45 07/07/20 19:01 77 07/07/20 16:00 97.8 79 18 154/58 (90) 100 07/07/20 16:00 45 07/07/20 16:00 76 07/07/20 16:00 Mechanical Ventilator 07/07/20 14:53 82 20 45 07/07/20 12:00 Mechanical Ventilator 07/07/20 12:00 97.0 70 18 140/77 (98) 100 07/07/20 12:00 45 07/07/20 12:00 70 07/07/20 11:11 72 21 45 07/07/20 08:00 70 07/07/20 08:00 45 07/07/20 08:00 97.0 67 18 144/77 (99) 100 07/07/20 08:00 Mechanical Ventilator 07/07/20 07:06 67 21 45 07/07/20 04:00 Mechanical Ventilator 07/07/20 04:00 97.7 89 30 151/74 (99) 100 07/07/20 04:00 45 07/07/20 04:00 74 07/07/20 03:04 73 22 45 07/07/20 00:00 97.3 71 18 149/80 (103) 100 07/07/20 00:00 70 07/07/20 00:00 Mechanical Ventilator 07/07/20 00:00 45 Intake and Output 07/06/20 07/07/20 19:00 07:00 Intake Total 700 ml 100 ml Output Total 145 ml Balance 555 ml 100 ml Free Water 150 ml 50 ml Tube Feeding 550 ml 50 ml Output Urine Total 125 ml Stool Total 20 ml Laboratory Tests 07/06/20 23:52: POC Whole Blood Glucose [Pending] 07/07/20 04:41: White Blood Count 11.8H, Red Blood Count 2.34L, Hemoglobin 7.0L, Hematocrit 20.6L, Mean Corpuscular Volume 88, Mean Corpuscular Hemoglobin 30.0, Mean Corpuscular Hemoglobin Concent 34.0, Red Cell Distribution Width 16.8H, Platelet Count 188, Mean Platelet Volume 9.1, Neutrophils (%) (Auto) , Lymphocytes (%) (Auto) , Monocytes (%) (Auto) , Eosinophils (%) (Auto) , Basophils (%) (Auto) , Sodium Level 130L, Potassium Level 5.2H, Chloride Level 97L, Carbon Dioxide Level 29, Anion Gap 4L, Blood Urea Nitrogen 83H, Creatinine 4.6H, Estimat Glomerular Filtration Rate 16.2, Glucose Level 141H, Calcium Level 8.1L 07/07/20 06:13: POC Whole Blood Glucose 112H 07/07/20 12:48: POC Whole Blood Glucose 91 07/07/20 16:54: POC Whole Blood Glucose 111H 07/07/20 21:35: Random Vancomycin Level 16.6 Height (Feet): 5 Height (Inches): 8.00 Weight (Pounds): 143 Objective Debilitated elderly man NCAT supple Coarse BS RRR abd sofft, flat, (+) GT s/p LLE BKA Assessment/Plan Status: progressing Assessment/Plan: Assessment Abnormal LFT - steadily improving (s/p US, CT, HIDA) - ? infectious hepatitis - Hep A and B negative - ? vascular - ? meds - ? other Gross hematuria - improved Acute anemia, ? urinary losses, ? GI loss ? surgical loss low platelet count Recommendations - f/u CMV PCR - Unable to have MRCP due to vent - continue to hold seroquel - follow LFT and CBC - no plans for GI w/u, per family discussion - TF - Transfuse Fco Banerjee MD Jul 07, 2020 23:43
[2020-07-07] MEDS: Gentamicin for inhalation INH SCH (23:52)
[2020-07-08] VITALS (7 sets, daily range): BP systolic 146–157; BP diastolic 74–81
[2020-07-08] MEDS ORDERED: Vancomycin 1gm in D5W 275ml IVPB ONE ×2
--- NOTE | 2020-07-08 00:10 | NUR ---
NURSE NOTES: Fio2 titrated to 40%.
--- NOTE | 2020-07-08 02:00 | NUR ---
NURSE NOTES: CHG bath given, oral care provided. Linens changed. Repositioned and turned pt. Kept clean and dry. Will continue to monitor.
--- NOTE | 2020-07-08 03:00 | NUR ---
NURSE NOTES: Patient is tolerating current vent setting. In no apparent respiratory distress noted.
[2020-07-08 04:51] LABS: HEMATOCRIT 23.1 % (42.0-52.0); HEMOGLOBIN 7.9 G/DL (14.2-18.0); MEAN CORPUSCULAR VOLUME 87 FL (80-99); PLATELET COUNT 184 K/UL (150-450); RED BLOOD COUNT 2.64 M/UL (4.70-6.10); RED CELL DISTRIBUTION WIDTH 17.1 % (11.6-14.8); WHITE BLOOD COUNT 10.1 K/UL (4.8-10.8)
[2020-07-08] MEDS: Aluminum Hydroxide Gel Susp 15ml GT SCH ×4 (04:59→21:09)
[2020-07-08 05:01] LABS: CALCIUM 8.3 MG/DL (8.5-10.1); CREATININE 3.4 MG/DL (0.55-1.30); POTASSIUM 4.3 MMOL/L (3.5-5.1)
[2020-07-08] MEDS: NovoLOG Insulin Flexpen SUBQ SCH ×5 (05:28→23:00)
--- NOTE | 2020-07-08 06:32 | General Progress Note ---
Subjective ROS Limited/Unobtainable: Yes Allergies: Coded Allergies: No Known Allergies (Unverified , 06/13/20) Subjective events noted interval notes reviewed glucose values are stable Item Value Date Time Bedside Blood Glucose 160 mg/dl H 07/08/20 0600 Bedside Blood Glucose 118 mg/dl 07/08/20 0000 Bedside Blood Glucose 111 mg/dl 07/07/20 1800 Bedside Blood Glucose 91 mg/dl 07/07/20 1200 Bedside Blood Glucose 112 mg/dl 07/07/20 0600 Bedside Blood Glucose 145 mg/dl H 07/07/20 0000 Objective Last 24 Hour Vital Signs Date Time Temp Pulse Resp B/P (MAP) Pulse Ox O2 Delivery O2 Flow Rate FiO2 07/08/20 04:00 40 07/08/20 04:00 97.5 77 21 153/81 (105) 96 07/08/20 04:00 Mechanical Ventilator 07/08/20 03:45 76 07/08/20 02:48 75 18 45 07/08/20 00:00 45 07/08/20 00:00 Mechanical Ventilator 07/08/20 00:00 97.2 77 20 156/80 (105) 98 07/07/20 23:01 77 07/07/20 23:00 76 18 100 Mechanical Ventilator 45 78 18 45 07/07/20 20:00 Mechanical Ventilator 07/07/20 20:00 45 07/07/20 20:00 97.5 77 22 143/70 (94) 100 07/07/20 19:42 77 19 45 07/07/20 19:01 77 07/07/20 16:00 97.8 79 18 154/58 (90) 100 07/07/20 16:00 45 07/07/20 16:00 76 07/07/20 16:00 Mechanical Ventilator 07/07/20 14:53 82 20 45 07/07/20 12:00 Mechanical Ventilator 07/07/20 12:00 97.0 70 18 140/77 (98) 100 07/07/20 12:00 45 07/07/20 12:00 70 07/07/20 11:11 72 21 45 07/07/20 08:00 70 07/07/20 08:00 45 07/07/20 08:00 97.0 67 18 144/77 (99) 100 07/07/20 08:00 Mechanical Ventilator 07/07/20 07:06 67 21 45 Intake and Output 07/07/20 07/08/20 19:00 07:00 Intake Total 650 ml 850 ml Output Total 1320 ml 350 ml Balance -670 ml 500 ml Free Water 100 ml 300 ml Tube Feeding 550 ml 550 ml Output Urine Total 300 ml 200 ml Stool Total 20 ml 150 ml Hemodialysis UF 1000 ml Laboratory Tests 07/07/20 12:48: POC Whole Blood Glucose 91 07/07/20 16:54: POC Whole Blood Glucose 111H 07/07/20 21:35: Random Vancomycin Level 16.6 07/08/20 00:33: POC Whole Blood Glucose 118H 07/08/20 02:50: White Blood Count 10.1, Red Blood Count 2.64L, Hemoglobin 7.9L, Hematocrit 23.1L , Mean Corpuscular Volume 87, Mean Corpuscular Hemoglobin 29.9, Mean Corpuscular Hemoglobin Concent 34.2, Red Cell Distribution Width 17.1H, Platelet Count 184, Mean Platelet Volume 8.9, Neutrophils (%) (Auto) , Lymphocytes (%) (Auto) , Monocytes (%) (Auto) , Eosinophils (%) (Auto) , Basophils (%) (Auto) , Sodium Level 131L, Potassium Level 4.3, Chloride Level 98, Carbon Dioxide Level 32, Anion Gap 1L, Blood Urea Nitrogen 52H, Creatinine 3.4H, Estimat Glomerular Filtration Rate 23.0, Glucose Level 149H, Calcium Level 8.3L 07/08/20 04:53: POC Whole Blood Glucose 160H Height (Feet): 5 Height (Inches): 8.00 Weight (Pounds): 143 General Appearance: no apparent distress Cardiovascular: regular rhythm Respiratory/Chest: decreased breath sounds Abdomen: normal bowel sounds Pelvis: normal external exam Objective Current Medications Medications (Trade) Dose Ordered Sig/Maryjane Route PRN Reason Start Time Stop Time Status Last Admin Dose Admin Acetaminophen (Tylenol) 650 mg Q4H PRN GT Mild Pain (Pain Scale 1-3) 06/18/20 23:00 07/18/20 22:59 Acetaminophen (Tylenol) 650 mg Q4HR PRN GT FEVER 06/14/20 09:45 07/14/20 09:44 06/19/20 20:45 Aluminum Hydroxide (Amphojel) 1,920 mg Q6H GT 06/17/20 10:00 12/10/20 09:59 07/08/20 04:59 Ascorbic Acid (Vitamin C) 500 mg DAILY GT 07/01/20 09:00 07/31/20 08:59 07/07/20 08:55 Cefepime HCl 500 mg/Dextrose 55 ml @ 110 mls/hr Q24H IV 07/08/20 16:00 07/15/20 15:59 Chlorhexidine Gluconate (Inés-Hex 2%) 1 applic DAILY@1999 TOPIC 06/21/20 20:00 09/19/20 19:59 07/07/20 20:46 Dextrose (Dextrose 50%) 25 ml Q30M PRN IV Hypoglycemia 06/28/20 18:30 09/26/20 18:29 Dextrose (Dextrose 50%) 50 ml Q30M PRN IV Hypoglycemia 06/28/20 18:30 09/26/20 18:29 Epoetin Bonilla (Epoetin Bonilla(ESRD on dialysis)) 10,000 unit TUE-TUE-TUE SUBQ 07/02/20 21:00 09/16/20 20:59 07/07/20 20:47 Gentamicin Sulfate (Gentamicin vial) 300 mg Q12HR@ INH 07/07/20 22:00 07/14/20 21:59 07/07/20 23:52 Haloperidol Lactate (Haldol) 5 mg Q6H PRN IM Agitation 06/21/20 23:15 08/05/20 23:14 06/25/20 18:17 Insulin Aspart (NovoLOG) EVERY 6 HOURS SUBQ 06/29/20 00:00 09/27/20 00:00 07/08/20 05:28 Lansoprazole (Prevacid) 30 mg Q12HR GT 06/30/20 21:00 07/30/20 20:59 07/07/20 20:46 Levothyroxine Sodium (Synthroid) 88 mcg DAILY@0630 GT 07/03/20 06:30 08/02/20 06:29 07/08/20 05:52 Vancomycin HCl ([facility] pharmacy to dose) 1 ea DAILY PRN MISC Per rx protocol 06/27/20 11:30 07/18/20 23:59 Assessment/Plan Problem List: (1) History of left below knee amputation ICD Codes: Z89.512 - Acquired absence of left leg below knee SNOMED: 371499398, [id number] (2) Surgical wound dehiscence ICD Codes: T81.31XA - Disruption of external operation (surgical) wound, not elsewhere classified, initial encounter SNOMED: 06299962 (3) Hyperkalemia ICD Codes: E87.5 - Hyperkalemia SNOMED: 11767851 (4) Acute respiratory failure ICD Codes: J96.00 - Acute respiratory failure, unspecified whether with hypoxia or hypercapnia SNOMED: 70031561 Qualifiers: Qualified Codes: J96.02 - Acute respiratory failure with hypercapnia (5) Hypothyroidism ICD Codes: E03.9 - Hypothyroidism, unspecified SNOMED: 02791046 (6) Hyperglycemia ICD Codes: R73.9 - Hyperglycemia, unspecified SNOMED: 47828453 Status: progressing Assessment/Plan: continue Levothyroxine 88 mcg daily repeat thyroid function in 1-2 weeks continue glucose monitoring Davy Ramos MD Jul 08, 2020 06:32
--- NOTE | 2020-07-08 06:45 | Hematology/Onc Progress Note ---
Assessment/Plan Assessment/Plan ASSESSMENT AND PLAN: #. Anemia that is likely due to chronic disease, r/o gi bleeding --> anemia panel has been reviewed, ferritin is >2000 --> no e/o hemolysis is noted --> transfuse on prn basis --> blood consent has been signed --> hgb 7.4-->7.4-->7-->6.7-->8-->7.5-->8.4-->9.1->8.1-->5.6->7.4-->7-->6.6->8-->7.5--> 7.9 --> folic acid is wnl --> 1 unit prbc 06/18 --> epogen has been started # Acute DVT in the distal right common femoral vein and profunda femoris vein. --> DUPLEX. Acute DVT in the distal right common femoral vein and profunda fem lilli vein. 2. No evidence of left lower extremity DVT. --> cannot anticoagulate at this time --> 06/17 s/p ivc filter placement --> hold off anticoag # Leukocytosis is likely due to b/l infiltrates --> on abx as per id -> ABX yolis/vanc-->yolis/linezolid--> yolis/levaq-->linezolid->vanc-->cefepime/gent --> continue trend --> wbc 15-->12->9.5-->13-->14 # Thrombocytopenia likely due to infection --> plt 82-->67->78 --> hep and hiv neg # Respiratory failure in this patient with vent-dependent respiratory failure. 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 # Dysphagia --> status post PEG placement. # Renal failure. -> per Dr. Honeycutt. # Hyperkalemia and kayxelate as needed. # Dvt ppx scds Appreciate consultation and angela RN Subjective Cardiovascular: Denies: no symptoms, chest pain, edema, irregular heart rate, lightheadedness, palpitations, syncope, other Allergies: Coded Allergies: No Known Allergies (Unverified , 06/13/20) All Systems: reviewed and negative except above Subjective 06/16 meds noted, labs reviewed, vent to trach, for ivc filter potentially 06/17 labs noted, meds reviewed, for ivc filter once covid neg 06/18 labs are noted, on vent and gt, 1 unit prbc ordered 06/19 labs pending, is s/p ivcf placement yesterday 06/20 for hd nontunneled cathter placement, no bleeding 06/22 labs noted, no bleeding, found down overnight, got ct brain, is neg 06/23 overnight is agitated and requiring restraints 06/24 labs noted, meds reviewed, hgb pending for am, restraints 06/25 labs reviewed, meds noted, no bleeding, hgb improved 06/26 per Rn, with rapid response overnight hr is improved, meds noted 06/27 labs reviewed, meds noted, no bleeding, hgb 5.6, wbc elevated, to get 2 unit prbc 06/29 on vanc, wbc 13, hgb 7.3, plt 88, on vanc 06/30 meds reviewed, hgb at 7, occult +, as per gi care, with diarrhea 07/01 plt 67, hgb 6.6, to get 2 units prbc, angela RN at bedside 07/02 RUC permacath reviewed, minimal bleeding, meds noted 07/03 gt feeds, meds noted, no bleeding, labs reviewed 07/04 awake, alert is on ivf, meds noted, labs reviewed 07/06 labs reviewed, meds noted, gt, watching tv 07/07 a+o x2, no bleeding, meds reviewed, no major changes 07/08 at bedside angela rn, on abx, labs pending for today, no bleeding Objective Objective Current Medications Medications (Trade) Dose Ordered Sig/Maryjane Route PRN Reason Start Time Stop Time Status Last Admin Dose Admin Acetaminophen (Tylenol) 650 mg Q4H PRN GT Mild Pain (Pain Scale 1-3) 06/18/20 23:00 07/18/20 22:59 Acetaminophen (Tylenol) 650 mg Q4HR PRN GT FEVER 06/14/20 09:45 07/14/20 09:44 06/19/20 20:45 Aluminum Hydroxide (Amphojel) 1,920 mg Q6H GT 06/17/20 10:00 07/17/20 09:59 07/08/20 04:59 Ascorbic Acid (Vitamin C) 500 mg DAILY GT 07/01/20 09:00 07/31/20 08:59 07/07/20 08:55 Cefepime HCl 500 mg/Dextrose 55 ml @ 110 mls/hr Q24H IV 07/08/20 16:00 07/15/20 15:59 Chlorhexidine Gluconate (Inés-Hex 2%) 1 applic DAILY@1999 TOPIC 06/21/20 20:00 09/19/20 19:59 07/07/20 20:46 Dextrose (Dextrose 50%) 25 ml Q30M PRN IV Hypoglycemia 06/28/20 18:30 09/26/20 18:29 Dextrose (Dextrose 50%) 50 ml Q30M PRN IV Hypoglycemia 06/28/20 18:30 09/26/20 18:29 Epoetin Bonilla (Epoetin Bonilla(ESRD on dialysis)) 10,000 unit TUE-TUE-TUE SUBQ 07/02/20 21:00 09/16/20 20:59 07/07/20 20:47 Gentamicin Sulfate (Gentamicin vial) 300 mg Q12HR@ INH 07/07/20 22:00 07/14/20 21:59 07/07/20 23:52 Haloperidol Lactate (Haldol) 5 mg Q6H PRN IM Agitation 06/21/20 23:15 08/05/20 23:14 06/25/20 18:17 Insulin Aspart (NovoLOG) EVERY 6 HOURS SUBQ 06/29/20 00:00 09/27/20 00:00 07/08/20 05:28 Lansoprazole (Prevacid) 30 mg Q12HR GT 06/30/20 21:00 07/30/20 20:59 07/07/20 20:46 Levothyroxine Sodium (Synthroid) 88 mcg DAILY@06 GT 07/03/20 06:30 08/02/20 06:29 07/08/20 05:52 Vancomycin HCl (Vanco pharmacy to dose) 1 ea DAILY PRN MISC Per rx protocol 06/27/20 11:30 07/18/20 23:59 Last 24 Hour Vital Signs Date Time Temp Pulse Resp B/P (MAP) Pulse Ox O2 Delivery O2 Flow Rate FiO2 07/08/20 04:00 40 07/08/20 04:00 97.5 77 21 153/81 (105) 96 07/08/20 04:00 Mechanical Ventilator 07/08/20 03:45 76 07/08/20 02:48 75 18 45 07/08/20 00:00 45 07/08/20 00:00 Mechanical Ventilator 07/08/20 00:00 97.2 77 20 156/80 (105) 98 07/07/20 23:01 77 07/07/20 23:00 76 18 100 Mechanical Ventilator 45 78 18 45 07/07/20 20:00 Mechanical Ventilator 07/07/20 20:00 45 07/07/20 20:00 97.5 77 22 143/70 (94) 100 07/07/20 19:42 77 19 45 07/07/20 19:01 77 07/07/20 16:00 97.8 79 18 154/58 (90) 100 07/07/20 16:00 45 07/07/20 16:00 76 07/07/20 16:00 Mechanical Ventilator 07/07/20 14:53 82 20 45 07/07/20 12:00 Mechanical Ventilator 07/07/20 12:00 97.0 70 18 140/77 (98) 100 07/07/20 12:00 45 07/07/20 12:00 70 07/07/20 11:11 72 21 45 07/07/20 08:00 70 07/07/20 08:00 45 07/07/20 08:00 97.0 67 18 144/77 (99) 100 07/07/20 08:00 Mechanical Ventilator 07/07/20 07:06 67 21 45 07/07/20 04:00 Mechanical Ventilator 07/07/20 04:00 97.7 89 30 151/74 (99) 100 07/07/20 04:00 45 07/07/20 04:00 74 07/07/20 03:04 73 22 45 07/07/20 00:00 97.3 71 18 149/80 (103) 100 07/07/20 00:00 70 07/07/20 00:00 Mechanical Ventilator 07/07/20 00:00 45 07/06/20 22:43 69 25 45 07/06/20 20:00 70 07/06/20 20:00 Mechanical Ventilator 07/06/20 20:00 45 07/06/20 20:00 96.6 69 21 151/76 (101) 100 07/06/20 18:37 67 20 45 07/06/20 16:00 45 07/06/20 16:00 97.2 69 22 150/81 (104) 100 07/06/20 16:00 69 07/06/20 16:00 Mechanical Ventilator 07/06/20 15:05 68 20 45 07/06/20 12:05 45 07/06/20 12:00 Mechanical Ventilator 07/06/20 12:00 68 07/06/20 12:00 96.2 68 22 148/77 (100) 100 07/06/20 11:07 68 22 45 07/06/20 08:00 Mechanical Ventilator 07/06/20 08:00 64 07/06/20 08:00 45 07/06/20 08:00 95.9 64 19 156/78 (104) 99 07/06/20 07:19 66 19 45 Intake and Output 07/07/20 07/08/20 19:00 07:00 Intake Total 650 ml 850 ml Output Total 1320 ml 350 ml Balance -670 ml 500 ml Free Water 100 ml 300 ml Tube Feeding 550 ml 550 ml Output Urine Total 300 ml 200 ml Stool Total 20 ml 150 ml Hemodialysis UF 1000 ml Labs Test 07/05/20 07:25 07/05/20 07:55 07/05/20 11:55 07/05/20 17:54 Arterial Blood pH 7.252 (7.350-7.450) Arterial Blood Partial Pressure CO2 63.9 mmHg (35.0-45.0) Arterial Blood Partial Pressure O2 101.0 mmHg (75.0-100.0) Arterial Blood HCO3 27.5 mmol/L (22.0-26.0) Arterial Blood Oxygen Saturation 97.4 % (95-100) Arterial Blood Base Excess -0.1 (-2-2) Joe Test Positive White Blood Count 10.1 K/UL (4.8-10.8) Red Blood Count 2.49 M/UL (4.70-6.10) Hemoglobin 7.5 G/DL (14.2-18.0) Hematocrit 22.4 % (42.0-52.0) Mean Corpuscular Volume 90 FL (80-99) Mean Corpuscular Hemoglobin 30.1 PG (27.0-31.0) Mean Corpuscular Hemoglobin Concent 33.5 G/DL (32.0-36.0) Red Cell Distribution Width 15.2 % (11.6-14.8) Platelet Count 123 K/UL (150-450) Mean Platelet Volume 9.8 FL (6.5-10.1) Neutrophils (%) (Auto) % (45.0-75.0) Lymphocytes (%) (Auto) % (20.0-45.0) Monocytes (%) (Auto) % (1.0-10.0) Eosinophils (%) (Auto) % (0.0-3.0) Basophils (%) (Auto) % (0.0-2.0) Differential Total Cells Counted 100 Neutrophils % (Manual) 78 % (45-75) Lymphocytes % (Manual) 9 % (20-45) Monocytes % (Manual) 2 % (1-10) Eosinophils % (Manual) 11 % (0-3) Basophils % (Manual) 0 % (0-2) Band Neutrophils 0 % (0-8) Platelet Estimate Decreased Platelet Morphology Normal Anisocytosis 1+ Sodium Level 134 MMOL/L (136-145) Potassium Level 4.7 MMOL/L (3.5-5.1) Chloride Level 100 MMOL/L (98-107) Carbon Dioxide Level 29 MMOL/L (21-32) Blood Urea Nitrogen 61 mg/dL (7-18) Creatinine 3.6 MG/DL (0.55-1.30) Estimat Glomerular Filtration Rate 21.6 mL/min (>60) Glucose Level 77 MG/DL (74-106) Uric Acid 3.3 MG/DL (2.6-7.2) Calcium Level 8.4 MG/DL (8.5-10.1) Phosphorus Level 3.2 MG/DL (2.5-4.9) Magnesium Level 2.8 MG/DL (1.8-2.4) Total Bilirubin 0.4 MG/DL (0.2-1.0) Aspartate Amino Transf (AST/SGOT) 90 U/L (15-37) Alanine Aminotransferase (ALT/SGPT) 124 U/L (12-78) Alkaline Phosphatase 428 U/L (46-116) C-Reactive Protein, Quantitative 16.2 mg/dL (0.00-0.90) Total Protein 7.1 G/DL (6.4-8.2) Albumin 1.4 G/DL (3.4-5.0) Globulin 5.7 g/dL Albumin/Globulin Ratio 0.2 (1.0-2.7) POC Whole Blood Glucose 94 MG/DL (74-106) 130 MG/DL (74-106) Test 07/05/20 23:57 07/06/20 06:04 07/06/20 06:50 07/06/20 09:11 POC Whole Blood Glucose 149 MG/DL (74-106) 117 MG/DL (74-106) Sodium Level 131 MMOL/L (136-145) Potassium Level 5.1 MMOL/L (3.5-5.1) Chloride Level 98 MMOL/L (98-107) Carbon Dioxide Level 30 MMOL/L (21-32) Anion Gap 3 mmol/L (5-15) Blood Urea Nitrogen 72 mg/dL (7-18) Creatinine 4.1 MG/DL (0.55-1.30) Estimat Glomerular Filtration Rate 18.5 mL/min (>60) Glucose Level 112 MG/DL (74-106) Calcium Level 8.2 MG/DL (8.5-10.1) Phosphorus Level 3.5 MG/DL (2.5-4.9) Magnesium Level 2.8 MG/DL (1.8-2.4) Total Bilirubin 0.3 MG/DL (0.2-1.0) Aspartate Amino Transf (AST/SGOT) 74 U/L (15-37) Alanine Aminotransferase (ALT/SGPT) 96 U/L (12-78) Alkaline Phosphatase 421 U/L (46-116) Total Protein 7.1 G/DL (6.4-8.2) Albumin 1.4 G/DL (3.4-5.0) Globulin 5.7 g/dL Albumin/Globulin Ratio 0.2 (1.0-2.7) Arterial Blood pH 7.273 (7.350-7.450) Arterial Blood Partial Pressure CO2 60.5 mmHg (35.0-45.0) Arterial Blood Partial Pressure O2 91.5 mmHg (75.0-100.0) Arterial Blood HCO3 27.3 mmol/L (22.0-26.0) Arterial Blood Oxygen Saturation 97.1 % (95-100) Arterial Blood Base Excess 0.1 (-2-2) Joe Test Positive Test 07/06/20 12:19 07/06/20 16:56 07/06/20 23:52 07/07/20 04:41 POC Whole Blood Glucose 117 MG/DL (74-106) 120 MG/DL (74-106) White Blood Count 11.8 K/UL (4.8-10.8) Red Blood Count 2.34 M/UL (4.70-6.10) Hemoglobin 7.0 G/DL (14.2-18.0) Hematocrit 20.6 % (42.0-52.0) Mean Corpuscular Volume 88 FL (80-99) Mean Corpuscular Hemoglobin 30.0 PG (27.0-31.0) Mean Corpuscular Hemoglobin Concent 34.0 G/DL (32.0-36.0) Red Cell Distribution Width 16.8 % (11.6-14.8) Platelet Count 188 K/UL (150-450) Mean Platelet Volume 9.1 FL (6.5-10.1) Neutrophils (%) (Auto) % (45.0-75.0) Lymphocytes (%) (Auto) % (20.0-45.0) Monocytes (%) (Auto) % (1.0-10.0) Eosinophils (%) (Auto) % (0.0-3.0) Basophils (%) (Auto) % (0.0-2.0) Sodium Level 130 MMOL/L (136-145) Potassium Level 5.2 MMOL/L (3.5-5.1) Chloride Level 97 MMOL/L (98-107) Carbon Dioxide Level 29 MMOL/L (21-32) Anion Gap 4 mmol/L (5-15) Blood Urea Nitrogen 83 mg/dL (7-18) Creatinine 4.6 MG/DL (0.55-1.30) Estimat Glomerular Filtration Rate 16.2 mL/min (>60) Glucose Level 141 MG/DL (74-106) Calcium Level 8.1 MG/DL (8.5-10.1) Test 07/07/20 06:13 07/07/20 12:48 07/07/20 16:54 07/07/20 21:35 POC Whole Blood Glucose 112 MG/DL (74-106) 91 MG/DL (74-106) 111 MG/DL (74-106) Random Vancomycin Level 16.6 ug/mL Test 07/08/20 00:33 07/08/20 02:50 07/08/20 04:53 POC Whole Blood Glucose 118 MG/DL (74-106) 160 MG/DL (74-106) White Blood Count 10.1 K/UL (4.8-10.8) Red Blood Count 2.64 M/UL (4.70-6.10) Hemoglobin 7.9 G/DL (14.2-18.0) Hematocrit 23.1 % (42.0-52.0) Mean Corpuscular Volume 87 FL (80-99) Mean Corpuscular Hemoglobin 29.9 PG (27.0-31.0) Mean Corpuscular Hemoglobin Concent 34.2 G/DL (32.0-36.0) Red Cell Distribution Width 17.1 % (11.6-14.8) Platelet Count 184 K/UL (150-450) Mean Platelet Volume 8.9 FL (6.5-10.1) Neutrophils (%) (Auto) % (45.0-75.0) Lymphocytes (%) (Auto) % (20.0-45.0) Monocytes (%) (Auto) % (1.0-10.0) Eosinophils (%) (Auto) % (0.0-3.0) Basophils (%) (Auto) % (0.0-2.0) Sodium Level 131 MMOL/L (136-145) Potassium Level 4.3 MMOL/L (3.5-5.1) Chloride Level 98 MMOL/L (98-107) Carbon Dioxide Level 32 MMOL/L (21-32) Anion Gap 1 mmol/L (5-15) Blood Urea Nitrogen 52 mg/dL (7-18) Creatinine 3.4 MG/DL (0.55-1.30) Estimat Glomerular Filtration Rate 23.0 mL/min (>60) Glucose Level 149 MG/DL (74-106) Calcium Level 8.3 MG/DL (8.5-10.1) Height (Feet): 5 Height (Inches): 8.00 Weight (Pounds): 143 Objective PHYSICAL EXAMINATION: VITAL SIGNS: reviewed HEAD AND NECK: Show status post tracheostomy. vent+ LUNGS: Coarse rhonchi and basilar rales. CARDIOVASCULAR: Shows irregular S1 and S2 with no gallop. ABDOMEN: Soft. Status post G-tube. EXTREMITIES: No pitting edema.++Left Jose Epperson MD Jul 08, 2020 06:45
--- NOTE | 2020-07-08 07:00 | NUR ---
NURSE NOTES: Received patient from MAX Grimes. Patient is asleep in bed. Sinus rhythm on the monitor. trach to vent and vent settings at prescribed rate. Gtube is in place and tube feeding at prescribed settings, tolerating well. Sparrow catheter and rectal tube is intact and draining well to gravity. Patient's skin issues is covered with optifoam, dry and intact. will continue plan of care.
--- NOTE | 2020-07-08 07:29 | NUR ---
NURSE HAND-OFF REPORT: Important Events on Shift: Stable Patient Status: Stable Diet: Vital AF @50 cc/hr Pending Orders: Pending Results/Labs: Pending MD notification: Latest Vital Signs: Temperature 97.5 , Pulse 77 , B/P 153 /81 , Respiratory Rate 21 , O2 SAT 96 , Mechanical Ventilator, O2 Flow Rate 15.0 . Vital Sign Comment: Stable EKG Rhythm: Sinus Rhythm Rhythm change?: N MD Notified?: MD Response: Latest Santiago Fall Score: 75 Fall Risk: High Risk Safety Measures: Call light Within Reach, Bed Alarm Zone 2, Side Rails Side Rails x3, Bed position Low and Locked. Fall Precautions: Yellow Socks Yellow Gown Door Sign Patient Fall Education Report given to MAX Grere. Addendum: 07/08/20 at 0730 by Sydney Michaud RN Report given to Phil RN
[2020-07-08] MEDS: Ascorbic Acid 500mg tab GT SCH (08:17)
--- NOTE | 2020-07-08 09:11 | NUR ---
RADIOLOGY: PCXR COMPLETED 0815HRS. NF
--- NOTE | 2020-07-08 10:07 | NUR ---
RD ASSESSMENT & RECOMMENDATIONS SEE CARE ACTIVITY FOR COMPLETE ASSESSMENT DAILY ESTIMATED NEEDS: Needs based on Wound, critical care, underweight/ 55.5kg 25-33 (25-35 w/ HD) kcals/kg 5658-6723 (0574-1966) total kcals 1.25-2 g protein/kg 69-111 g total protein 25-30 mL/kg 6488-1511 total fluid mLs NUTRITION DIAGNOSIS: * Swallowing difficulty R/T respiratory status as evidenced by pt is trach/vent dep, PEG dep. CURRENT TF: VITAL 1.2 @50 ml x 22 hrs (held for Synthroid) ENTERAL NUTRITION RECOMMENDATIONS: Nepro @ 45ml/hr x 22 hrs (On Synthroid) to provide 960ml, 1728kcal, 78g prot, 698ml free water * Nepro @ goal rate of 45ml/hr, hold 1 hr before and after Synthroid med * HOB over 30 degrees/ water flush per MD TF changed to VITAL 1.2 per GI (OBS+, +rectal tube) Rec goal of 55ml/hr x22 hrs to better meet est kcal needs, provides: 1210ml, 1452 kcal, 91g pro, 981ml free H2O -> Monitor lytes and need for renal formula. ADDITIONAL RECOMMENDATIONS: * Per SNF: HT=69" DN=268say -> rec daily calibrated bedscale wt * Monitor lytes: elev K-> now wnl, phos wnl * Wound healing: RANDY BID + Nephrovite 1 tab q daily * Monitor lytes w/ Vital AF 1.2/ need for renal formula (K: 4.3, 5.2, 5.1 w/ episodes of hyperkalemia)
--- NOTE | 2020-07-08 10:28 | NUR ---
*-*DISCHARGE PLANNING*-* PATIENT HAS BEEN REFERRED TO: [facility] P: [phone] S/W MABEL, NEED MORE RECENT COVID TEST WITHIN 48HRS FROM DISCHARGE, AND PENDING AUTHORIZATION FROM INSURANCE.
--- NOTE | 2020-07-08 10:28 | Pulmonology Progress Note ---
Subjective ROS Limited/Unobtainable: Yes Interval Events: FiO2 now 45%; Remains on vent. Constitutional: Denies: fever HEENT: Repors: no symptoms Respiratory: Reports: no symptoms Cardiovascular: Reports: no symptoms Gastrointestinal/Abdominal: Reports: diarrhea Genitourinary: Reports: no symptoms Psychiatric: Reports: other - off of restraint Allergies: Coded Allergies: No Known Allergies (Unverified , 06/13/20) All Systems: reviewed and negative except above Objective Last 24 Hour Vital Signs Date Time Temp Pulse Resp B/P (MAP) Pulse Ox O2 Delivery O2 Flow Rate FiO2 07/08/20 08:00 40 07/08/20 08:00 40 07/08/20 08:00 97.0 76 19 157/77 (103) 97 07/08/20 07:52 72 07/08/20 07:05 72 18 45 07/08/20 04:00 40 07/08/20 04:00 97.5 77 21 153/81 (105) 96 07/08/20 04:00 Mechanical Ventilator 07/08/20 03:45 76 07/08/20 02:48 75 18 45 07/08/20 00:00 45 07/08/20 00:00 Mechanical Ventilator 07/08/20 00:00 97.2 77 20 156/80 (105) 98 07/07/20 23:01 77 07/07/20 23:00 76 18 100 Mechanical Ventilator 45 78 18 45 07/07/20 20:00 Mechanical Ventilator 07/07/20 20:00 45 07/07/20 20:00 97.5 77 22 143/70 (94) 100 07/07/20 19:42 77 19 45 07/07/20 19:01 77 07/07/20 16:00 97.8 79 18 154/58 (90) 100 07/07/20 16:00 45 07/07/20 16:00 76 07/07/20 16:00 Mechanical Ventilator 07/07/20 14:53 82 20 45 07/07/20 12:00 Mechanical Ventilator 07/07/20 12:00 97.0 70 18 140/77 (98) 100 07/07/20 12:00 45 07/07/20 12:00 70 07/07/20 11:11 72 21 45 Intake and Output 07/07/20 07/08/20 19:00 07:00 Intake Total 650 ml 850 ml Output Total 1320 ml 350 ml Balance -670 ml 500 ml Free Water 100 ml 300 ml Tube Feeding 550 ml 550 ml Output Urine Total 300 ml 200 ml Stool Total 20 ml 150 ml Hemodialysis UF 1000 ml General Appearance: no acute distress HEENT: status post trach Respiratory: chest wall non-tender, decreased breath sounds Cardiovascular: normal rate Abdomen: normal bowel sounds Extremities: no cyanosis Laboratory Tests 07/07/20 12:48: POC Whole Blood Glucose 91 07/07/20 16:54: POC Whole Blood Glucose 111H 07/07/20 21:35: Random Vancomycin Level 16.6 07/08/20 00:33: POC Whole Blood Glucose 118H 07/08/20 02:50: White Blood Count 10.1, Red Blood Count 2.64L, Hemoglobin 7.9L, Hematocrit 23.1L , Mean Corpuscular Volume 87, Mean Corpuscular Hemoglobin 29.9, Mean Corpuscular Hemoglobin Concent 34.2, Red Cell Distribution Width 17.1H, Platelet Count 184, Mean Platelet Volume 8.9, Neutrophils (%) (Auto) , Lymphocytes (%) (Auto) , Monocytes (%) (Auto) , Eosinophils (%) (Auto) , Basophils (%) (Auto) , Sodium Level 131L, Potassium Level 4.3, Chloride Level 98, Carbon Dioxide Level 32, Anion Gap 1L, Blood Urea Nitrogen 52H, Creatinine 3.4H, Estimat Glomerular Filtration Rate 23.0, Glucose Level 149H, Calcium Level 8.3L 07/08/20 04:53: POC Whole Blood Glucose 160H Current Medications Medications (Trade) Dose Ordered Sig/Maryjane Route PRN Reason Start Time Stop Time Status Last Admin Dose Admin Acetaminophen (Tylenol) 650 mg Q4H PRN GT Mild Pain (Pain Scale 1-3) 06/18/20 23:00 07/18/20 22:59 Acetaminophen (Tylenol) 650 mg Q4HR PRN GT FEVER 06/14/20 09:45 07/14/20 09:44 06/19/20 20:45 Aluminum Hydroxide (Amphojel) 1,920 mg Q6H GT 06/17/20 10:00 07/17/20 09:59 07/08/20 09:43 Ascorbic Acid (Vitamin C) 500 mg DAILY GT 07/01/20 09:00 07/31/20 08:59 07/08/20 08:17 Cefepime HCl 500 mg/Dextrose 55 ml @ 110 mls/hr Q24H IV 07/08/20 16:00 07/15/20 15:59 Chlorhexidine Gluconate (Inés-Hex 2%) 1 applic DAILY@1999 TOPIC 06/21/20 20:00 09/19/20 19:59 07/07/20 20:46 Dextrose (Dextrose 50%) 25 ml Q30M PRN IV Hypoglycemia 06/28/20 18:30 09/26/20 18:29 Dextrose (Dextrose 50%) 50 ml Q30M PRN IV Hypoglycemia 06/28/20 18:30 09/26/20 18:29 Epoetin Bonilla (Epoetin Bonilla(ESRD on dialysis)) 10,000 unit TUE-TUE-TUE SUBQ 07/02/20 21:00 09/16/20 20:59 07/07/20 20:47 Gentamicin Sulfate (Gentamicin vial) 300 mg Q12HR@ INH 07/07/20 22:00 07/14/20 21:59 07/07/20 23:52 Haloperidol Lactate (Haldol) 5 mg Q6H PRN IM Agitation 06/21/20 23:15 08/05/20 23:14 06/25/20 18:17 Insulin Aspart (NovoLOG) EVERY 6 HOURS SUBQ 06/29/20 00:00 09/27/20 00:00 07/08/20 05:28 Lansoprazole (Prevacid) 30 mg Q12HR GT 06/30/20 21:00 07/30/20 20:59 07/08/20 08:17 Levothyroxine Sodium (Synthroid) 88 mcg DAILY@0630 GT 07/03/20 06:30 08/02/20 06:29 07/08/20 05:52 Vancomycin HCl (Vanco pharmacy to dose) 1 ea DAILY PRN MISC Per rx protocol 06/27/20 11:30 07/18/20 23:59 Assessment/Plan Problems: (1) Acute respiratory failure Assessment/Plan IMPRESSION: 1. Chronic respiratory failure. 2. Hypoxemia. 3. Respiratory acidosis. 4. Anemia. 5. Leukocytosis. 6. DVT 7. S/p code blue 06/19/20 DISCUSSION: The patient's x-ray is markedly abnormal with bilateral infiltrates. I suspect he has pulmonary fibrosis. Latest CXR is unchanged to slightly improved COVID 19 pcr and antigen both negative No anticoagulation for DVT due to anemia S/p IVC filter placement Continue assist-control mechanical ventilation; currently FiO2 45%; SaO2 100%, broad-spectrum antibiotics. Transfusion as needed. Will continue PEEP to 8; S/p HD Will decrease FiO2 as tolerated S/p permacath Await placement I will follow carefully. Hugo Carl Omar Syed MD Jul 08, 2020 10:28
[2020-07-08] MEDS: Gentamicin for inhalation INH SCH ×2 (11:05→22:00)
--- NOTE | 2020-07-08 11:50 | Cardiac Electrophysiology PN ---
Assessment/Plan Assessment/Plan 1. Vent-dependent respirator failure. S/P tracheostomy. On 50% Fio2 Chest x-ray extensive bilateral pneumonia or ARDS. Off isolation EF 50%. Ruled out for [place] On iv Abx 2. Sinus Tachycardia, likely due to respiratory failure and sepsis 3. Right femoral vein DVT. S/P IVC filter 06/18 4. Dysphagia, status post PEG placement. 5. Renal failure. S/P Right IJ Iron and on HD by Dr. Honeycutt. 6. Severe anemia, S/P multiple PRBCs for hematuria 7. High LFTs, s/p CT abdomen and pelvis and HIDA FU Dr Stringer 8. Transient bradycardia, resolved DW RN Subjective Subjective On the Vent off isolation. On 45% Fio2 and PEEP 5. S/P IVC filter S/P Right IJ Iron and first HD 06/21/20 Had ENVIRONMENTAL TECHNICAL OFFICER as HR dropped to 30 at 4 am 06/25/20 Got PRBC 06/27 and 06/28 S/P HD and PRBC yesterday Objective Last 24 Hour Vital Signs Date Time Temp Pulse Resp B/P (MAP) Pulse Ox O2 Delivery O2 Flow Rate FiO2 07/08/20 08:00 Mechanical Ventilator 07/08/20 08:00 40 07/08/20 08:00 40 07/08/20 08:00 97.0 76 19 157/77 (103) 97 07/08/20 07:52 72 07/08/20 07:05 72 18 45 07/08/20 04:00 40 07/08/20 04:00 97.5 77 21 153/81 (105) 96 07/08/20 04:00 Mechanical Ventilator 07/08/20 03:45 76 07/08/20 02:48 75 18 45 07/08/20 00:00 45 07/08/20 00:00 Mechanical Ventilator 07/08/20 00:00 97.2 77 20 156/80 (105) 98 07/07/20 23:01 77 07/07/20 23:00 76 18 100 Mechanical Ventilator 45 78 18 45 07/07/20 20:00 Mechanical Ventilator 07/07/20 20:00 45 07/07/20 20:00 97.5 77 22 143/70 (94) 100 07/07/20 19:42 77 19 45 07/07/20 19:01 77 07/07/20 16:00 97.8 79 18 154/58 (90) 100 07/07/20 16:00 45 07/07/20 16:00 76 07/07/20 16:00 Mechanical Ventilator 07/07/20 14:53 82 20 45 07/07/20 12:00 Mechanical Ventilator 07/07/20 12:00 97.0 70 18 140/77 (98) 100 07/07/20 12:00 45 07/07/20 12:00 70 Intake and Output 07/07/20 07/08/20 19:00 07:00 Intake Total 650 ml 850 ml Output Total 1320 ml 350 ml Balance -670 ml 500 ml Free Water 100 ml 300 ml Tube Feeding 550 ml 550 ml Output Urine Total 300 ml 200 ml Stool Total 20 ml 150 ml Hemodialysis UF 1000 ml Laboratory Tests Test 07/07/20 12:48 07/07/20 16:54 07/07/20 21:35 07/08/20 00:33 POC Whole Blood Glucose 91 MG/DL (74-106) 111 MG/DL (74-106) H 118 MG/DL (74-106) H Random Vancomycin Level 16.6 ug/mL Test 07/08/20 02:50 07/08/20 04:53 White Blood Count 10.1 K/UL (4.8-10.8) Red Blood Count 2.64 M/UL (4.70-6.10) L Hemoglobin 7.9 G/DL (14.2-18.0) L Hematocrit 23.1 % (42.0-52.0) L Mean Corpuscular Volume 87 FL (80-99) Mean Corpuscular Hemoglobin 29.9 PG (27.0-31.0) Mean Corpuscular Hemoglobin Concent 34.2 G/DL (32.0-36.0) Red Cell Distribution Width 17.1 % (11.6-14.8) H Platelet Count 184 K/UL (150-450) Mean Platelet Volume 8.9 FL (6.5-10.1) Neutrophils (%) (Auto) % (45.0-75.0) Lymphocytes (%) (Auto) % (20.0-45.0) Monocytes (%) (Auto) % (1.0-10.0) Eosinophils (%) (Auto) % (0.0-3.0) Basophils (%) (Auto) % (0.0-2.0) Sodium Level 131 MMOL/L (136-145) L Potassium Level 4.3 MMOL/L (3.5-5.1) Chloride Level 98 MMOL/L (98-107) Carbon Dioxide Level 32 MMOL/L (21-32) Anion Gap 1 mmol/L (5-15) L Blood Urea Nitrogen 52 mg/dL (7-18) H Creatinine 3.4 MG/DL (0.55-1.30) H Estimat Glomerular Filtration Rate 23.0 mL/min (>60) Glucose Level 149 MG/DL (74-106) H Calcium Level 8.3 MG/DL (8.5-10.1) L POC Whole Blood Glucose 160 MG/DL (74-106) H Objective HEAD AND NECK: Status post tracheostomy. Right IJ Iron in place LUNGS: Coarse rhonchi and basilar rales. CARDIOVASCULAR: Irregular S1 and S2 with no gallop. ABDOMEN: Soft. Status post G-tube. EXTREMITIES: No pitting edema. Lance Mcguire MD Jul 08, 2020 11:50
--- NOTE | 2020-07-08 12:04 | Nephrology Progress Note ---
Assessment/Plan Problem List: (1) KERRI (acute kidney injury) (2) Acute respiratory failure (3) Chronic respiratory failure (4) Anemia (5) Hyperkalemia Assessment Acute on chronic renal failure Anemia Respiratory failure acute on chronic Respiratory acidosis and hypoxia Hyperkalemia Plan July 08: Patient was dialyzed yesterday. Today's labs reviewed. Electrolytes and renal parameters stable. Next dialysis tomorrow. Continue per consultants. July 07: Labs reviewed. Dialysis today. Abnormal electrolytes will be. Discussed with RN. Resolved after dialysis. Continue per consultants July 06: Labs reviewed. Dialyzed July 04. Due for dialysis July 07. Continue per consultants. July 05: Labs reviewed. Dialyzed yesterday. Electrolytes and renal parameters stable. Continue per consultants. Continue dialysis as needed. July 04: Labs reviewed. Due for dialysis today. Continue to monitor electrolytes and hemoglobin hematocrit. Continue per consultants. July 03: Lab reviewed. Will defer dialysis for July 04. Some blood oozing from the catheter site. General surgery to be informed. Electrolytes stable. Continue as is. July 02: Labs reviewed. Due for dialysis tomorrow. Hemoglobin higher. Stable electrolytes. Continue per consultants. July 01: Labs reviewed. Dialyzed yesterday. Patient has a permacath. Continue per consultants. Worsening anemia noted, deferred to windows systems engineer. June 30: Labs reviewed. Due for dialysis today. Patient appears to be needing hemodialysis for sometimes incoming future. Will arrange for placement of a tunneled catheter. Continue per consultants. Anemia management per windows systems engineer. June 29: Labs reviewed. Hemoglobin is higher. Next hemodialysis tomorrow June 30. Continue per consultants. June 28: Labs reviewed. Last dialyzed June 26. Hemoglobin remains low. Defer transfusion and work-up to windows systems engineer. Continue to follow-up renal parameters. June 27: Labs reviewed. Dialyzed yesterday. Hemoglobin low. Due for transfusion. Continue to monitor renal parameters and hemoglobin and hematocrit. June 26: Labs reviewed. Due for dialysis today. Continue per consultants. Continue to monitor liver enzymes. June 25: Labs reviewed. Will dialyze tomorrow. Continue per consultants. Check liver function enzymes. June 24: Dialyzed yesterday. Labs reviewed. Medication list reviewed. Liver enzymes remains elevated. Continue to monitor electrolytes renal parameters and LFTs. Hemodialysis in a.m. if needed. June 23: Patient will be dialyzed today again. Labs reviewed. Serum creatinine higher. Elevated liver enzymes persist. Patient full code. Continue per consultants. June 22: Patient dialyzed yesterday. Labs reviewed. Liver function tests and enzymes are elevated. Continue to monitor renal parameters and LFTs. Continue per consultants. Patient full code. June 21: Patient due for dialysis today. Labs and medication list reviewed. Discussed with RN. Continue to monitor renal parameters. June 20: Patient had an episode of bradycardia last night. Serum creatinine rising. Patient continues to have respiratory acidosis. Discussed with MAX Bond. Will order non tunneled dialysis catheter placement for initiation of dialysis treatment due to acute renal failure. Patient remains full code. I favor comfort care if bioethics consultation is sought and physicians on the team agreeable. June 19: No CHEM panel today. Low hemoglobin as of yesterday's lab results. Anemia management per Dr. Cueva. Continue to monitor renal parameters. June 18: Labs are reviewed. Hemoglobin lower. Creatinine higher. ABG not done yet. Patient full code. Continue per consultants. June 17: Labs reviewed. Hemoglobin low. Creatinine up to 3. Phosphorus levels elevated. Will start Amphojel via GT tube as a phosphorus binder. Monitor renal parameters. Check ABG. Continue per consultants. June 16: Labs reviewed. Serum creatinine mariana to 2.6. Abnormal electrolytes now normalized. Continue to monitor renal parameters and avoid nephrotoxic's. Continue to adjust pulmonary status as possible. June 15: ABG pH of 7.1. 2D echo suggestive of ejection fraction of 50%. Labs reviewed. Serum creatinine mariana. Will hold IV Lasix. Will give Kayexalate for high potassium and 1 amp of sodium bicarb. Albumin IV bolus given. Continue per consultants. Continue to monitor renal parameters. Kidney ultrasound ordered. June 14: As follow Pulmonary evaluation Sparrow catheter Hold IV fluid IV fluid, until 2D echo results available Kayexalate for high potassium IV Protonix 2D echocardiogram Anemia work-up More labs ordered Subjective ROS Limited/Unobtainable: Yes Objective Objective Last 24 Hour Vital Signs Date Time Temp Pulse Resp B/P (MAP) Pulse Ox O2 Delivery O2 Flow Rate FiO2 07/08/20 08:00 Mechanical Ventilator 07/08/20 08:00 40 07/08/20 08:00 40 07/08/20 08:00 97.0 76 19 157/77 (103) 97 07/08/20 07:52 72 07/08/20 07:05 72 18 45 07/08/20 04:00 40 07/08/20 04:00 97.5 77 21 153/81 (105) 96 07/08/20 04:00 Mechanical Ventilator 07/08/20 03:45 76 07/08/20 02:48 75 18 45 07/08/20 00:00 45 07/08/20 00:00 Mechanical Ventilator 07/08/20 00:00 97.2 77 20 156/80 (105) 98 07/07/20 23:01 77 07/07/20 23:00 76 18 100 Mechanical Ventilator 45 78 18 45 07/07/20 20:00 Mechanical Ventilator 07/07/20 20:00 45 07/07/20 20:00 97.5 77 22 143/70 (94) 100 07/07/20 19:42 77 19 45 07/07/20 19:01 77 07/07/20 16:00 97.8 79 18 154/58 (90) 100 07/07/20 16:00 45 07/07/20 16:00 76 07/07/20 16:00 Mechanical Ventilator 07/07/20 14:53 82 20 45 Intake and Output 07/07/20 07/08/20 19:00 07:00 Intake Total 650 ml 850 ml Output Total 1320 ml 350 ml Balance -670 ml 500 ml Free Water 100 ml 300 ml Tube Feeding 550 ml 550 ml Output Urine Total 300 ml 200 ml Stool Total 20 ml 150 ml Hemodialysis UF 1000 ml Laboratory Tests 07/07/20 12:48: POC Whole Blood Glucose 91 07/07/20 16:54: POC Whole Blood Glucose 111H 07/07/20 21:35: Random Vancomycin Level 16.6 07/08/20 00:33: POC Whole Blood Glucose 118H 07/08/20 02:50: White Blood Count 10.1, Red Blood Count 2.64L, Hemoglobin 7.9L, Hematocrit 23.1L , Mean Corpuscular Volume 87, Mean Corpuscular Hemoglobin 29.9, Mean Corpuscular Hemoglobin Concent 34.2, Red Cell Distribution Width 17.1H, Platelet Count 184, Mean Platelet Volume 8.9, Neutrophils (%) (Auto) , Lymphocytes (%) (Auto) , Monocytes (%) (Auto) , Eosinophils (%) (Auto) , Basophils (%) (Auto) , Sodium Level 131L, Potassium Level 4.3, Chloride Level 98, Carbon Dioxide Level 32, Anion Gap 1L, Blood Urea Nitrogen 52H, Creatinine 3.4H, Estimat Glomerular Filtration Rate 23.0, Glucose Level 149H, Calcium Level 8.3L 07/08/20 04:53: POC Whole Blood Glucose 160H Height (Feet): 5 Height (Inches): 8.00 Weight (Pounds): 143 General Appearance: no apparent distress EENT: other - Trach to vent Cardiovascular: normal rate Respiratory/Chest: decreased breath sounds Abdomen: distended Leonidas Honeycutt MD Jul 08, 2020 12:04
--- NOTE | 2020-07-08 12:25 | NUR ---
NURSE NOTES: patient refused to be cleaned at this time
--- NOTE | 2020-07-08 12:40 | NUR ---
M[employer]AGE [employer] SALES NOTE FOLLOW UP CALL MADE TO [facility] INTAKE [facility]PT @ [phone]. INTAKE REP [facility] NOT AVAILABLE. JAKOB LEFT REQUESTING CALL BACK. Addendum: 07/08/20 at 1248 by DANIELLE MUELLER LVN CM CALL MADE TO FRANKIE ABARCA AT [employer] [phone] [phone] IN RE TO AUTH STATUS [place] [facility] [place] JAKOB LEFT REQUESTING CALL BACK.
--- NOTE | 2020-07-08 12:48 | NUR ---
CASE MANAGEMENT:REVIEW SI; SEPSIS. PNA. ESRD~NEW HD. RESP FAILURE~TRACH/VENT DEPENDENT. 97.5 76 21 157/77 96% TRACH/VENT AC 18 TV 500 PEEP 5 FIO2 40% H/H 7.9/23.1 NA 131 BUN 52 CR 3.4 BG 160 IS;CEFEPIME IV Q24 VANCOMYCIN IV ONCE GENTAMICIN INH Q12 VIT C GT PREVACID GT Q12 KALYN STATUS DCP;DC PLANNING TO PSYCHIATRIC
--- NOTE | 2020-07-08 13:58 | Diagnostic Imaging Report ---
Indication: Shortness of breath Technique: One view of the chest Comparison: 07/01/2020 Findings: Extensive bilateral interstitial and airspace disease is unchanged. Tracheostomy, tunneled dialysis catheter remain. Impression: Unchanged since prior study of 07/01/2025
--- NOTE | 2020-07-08 14:10 | NUR ---
SCRIPT ARTIST NOTE S/W JESUS DAVID AT [employer] IN RE TO AUTH FOR SUB-[facility]UTE PLACEMENT AT [facility]. PER JESUS, NO REQUEST FOR AUTH HAS BEEN SUBMITTED FROM [facility]. JESUS REQUESTED CLINICAL PACKET BE FAXED TO [employer] AT [phone]. JESUS WILL WORK ON DC PLANNING FOR AUTH TO SUB-ACUTE AND FOLLOW UP WITH THIS CM.
--- NOTE | 2020-07-08 15:59 | Infectious Diseases Prog Note ---
Assessment/Plan Assessment/Plan IMPRESSION: Pneumonia with Pseudomonas & Providencia Hypothermia COVID19 X 2: negative Ventilator-dependent respiratory failure, Diabetes mellitus type 2, Hypertension, History of left BKA, Hypertension, anemia, Major depression, Pressure ulcer, Elevated transaminase, Hyperkalemia. Anemia R leg DVT s/p IVC filter Sacral osteomyelitis Severe anemia Acute renal failure ESRD Hypercapnic respiratory failure Hematuria Thrombocytopenia Diverticulosis Diarrhea, C. difficile negative RECOMMENDATION: Continue Vancomycin until 07/18 Continue Cefepime & Gentamicin inhaler Subjective ROS Limited/Unobtainable: Yes Neurologic: Reports: other - more alert Allergies: Coded Allergies: No Known Allergies (Unverified , 06/13/20) Objective Last 24 Hour Vital Signs Date Time Temp Pulse Resp B/P (MAP) Pulse Ox O2 Delivery O2 Flow Rate FiO2 07/08/20 12:00 72 07/08/20 12:00 97.3 74 20 151/78 (102) 97 07/08/20 12:00 40 07/08/20 12:00 Mechanical Ventilator 07/08/20 11:10 70 20 45 07/08/20 08:00 Mechanical Ventilator 07/08/20 08:00 40 07/08/20 08:00 40 07/08/20 08:00 97.0 76 19 157/77 (103) 97 07/08/20 07:52 72 07/08/20 07:05 72 18 45 07/08/20 04:00 40 07/08/20 04:00 97.5 77 21 153/81 (105) 96 07/08/20 04:00 Mechanical Ventilator 07/08/20 03:45 76 07/08/20 02:48 75 18 45 07/08/20 00:00 45 07/08/20 00:00 Mechanical Ventilator 07/08/20 00:00 97.2 77 20 156/80 (105) 98 07/07/20 23:01 77 07/07/20 23:00 76 18 100 Mechanical Ventilator 45 78 18 45 07/07/20 20:00 Mechanical Ventilator 07/07/20 20:00 45 07/07/20 20:00 97.5 77 22 143/70 (94) 100 07/07/20 19:42 77 19 45 07/07/20 19:01 77 07/07/20 16:00 97.8 79 18 154/58 (90) 100 07/07/20 16:00 45 07/07/20 16:00 76 07/07/20 16:00 Mechanical Ventilator Height (Feet): 5 Height (Inches): 8.00 Weight (Pounds): 143 HEENT: status post trach Respiratory/Chest: lungs clear, other - on ventilator Cardiovascular: normal rate Abdomen: soft, non tender, other - GT & rectal tube Extremities: other - left BKA Skin: other - sacral wound Neurologic/Psychiatric: alert, responsive Laboratory Tests Test 07/07/20 16:54 07/07/20 21:35 07/08/20 00:33 07/08/20 02:50 POC Whole Blood Glucose 111 MG/DL (74-106) H 118 MG/DL (74-106) H Random Vancomycin Level 16.6 ug/mL White Blood Count 10.1 K/UL (4.8-10.8) Red Blood Count 2.64 M/UL (4.70-6.10) L Hemoglobin 7.9 G/DL (14.2-18.0) L Hematocrit 23.1 % (42.0-52.0) L Mean Corpuscular Volume 87 FL (80-99) Mean Corpuscular Hemoglobin 29.9 PG (27.0-31.0) Mean Corpuscular Hemoglobin Concent 34.2 G/DL (32.0-36.0) Red Cell Distribution Width 17.1 % (11.6-14.8) H Platelet Count 184 K/UL (150-450) Mean Platelet Volume 8.9 FL (6.5-10.1) Neutrophils (%) (Auto) % (45.0-75.0) Lymphocytes (%) (Auto) % (20.0-45.0) Monocytes (%) (Auto) % (1.0-10.0) Eosinophils (%) (Auto) % (0.0-3.0) Basophils (%) (Auto) % (0.0-2.0) Sodium Level 131 MMOL/L (136-145) L Potassium Level 4.3 MMOL/L (3.5-5.1) Chloride Level 98 MMOL/L (98-107) Carbon Dioxide Level 32 MMOL/L (21-32) Anion Gap 1 mmol/L (5-15) L Blood Urea Nitrogen 52 mg/dL (7-18) H Creatinine 3.4 MG/DL (0.55-1.30) H Estimat Glomerular Filtration Rate 23.0 mL/min (>60) Glucose Level 149 MG/DL (74-106) H Calcium Level 8.3 MG/DL (8.5-10.1) L Test 07/08/20 04:53 07/08/20 12:22 POC Whole Blood Glucose 160 MG/DL (74-106) H 134 MG/DL (74-106) H Current Medications Medications (Trade) Dose Ordered Sig/Maryjane Route PRN Reason Start Time Stop Time Status Last Admin Dose Admin Acetaminophen (Tylenol) 650 mg Q4H PRN GT Mild Pain (Pain Scale 1-3) 06/18/20 23:00 07/18/20 22:59 Acetaminophen (Tylenol) 650 mg Q4HR PRN GT FEVER 06/14/20 09:45 07/14/20 09:44 06/19/20 20:45 Aluminum Hydroxide (Amphojel) 1,920 mg Q6H GT 06/17/20 10:00 07/17/20 09:59 07/08/20 09:43 Ascorbic Acid (Vitamin C) 500 mg DAILY GT 07/01/20 09:00 07/31/20 08:59 07/08/20 08:17 Cefepime HCl 500 mg/Dextrose 55 ml @ 110 mls/hr Q24H IV 07/08/20 16:00 07/15/20 15:59 Chlorhexidine Gluconate (Inés-Hex 2%) 1 applic DAILY@1999 TOPIC 06/21/20 20:00 09/19/20 19:59 07/07/20 20:46 Dextrose (Dextrose 50%) 25 ml Q30M PRN IV Hypoglycemia 06/28/20 18:30 09/26/20 18:29 Dextrose (Dextrose 50%) 50 ml Q30M PRN IV Hypoglycemia 06/28/20 18:30 09/26/20 18:29 Epoetin Bonilla (Epoetin Bonilla(ESRD on dialysis)) 10,000 unit TUE-TUE-TUE SUBQ 07/02/20 21:00 09/16/20 20:59 07/07/20 20:47 Gentamicin Sulfate (Gentamicin vial) 300 mg Q12HR@ INH 07/07/20 22:00 07/14/20 21:59 07/08/20 11:05 Haloperidol Lactate (Haldol) 5 mg Q6H PRN IM Agitation 06/21/20 23:15 08/05/20 23:14 06/25/20 18:17 Insulin Aspart (NovoLOG) EVERY 6 HOURS SUBQ 06/29/20 00:00 09/27/20 00:00 07/08/20 05:28 Lansoprazole (Prevacid) 30 mg Q12HR GT 06/30/20 21:00 07/30/20 20:59 07/08/20 08:17 Levothyroxine Sodium (Synthroid) 88 mcg DAILY@0630 GT 07/03/20 06:30 08/02/20 06:29 07/08/20 05:52 Vancomycin HCl ([facility] pharmacy to dose) 1 ea DAILY PRN MISC Per rx protocol 06/27/20 11:30 07/18/20 23:59 Paul Amador MD Jul 08, 2020 15:59
--- NOTE | 2020-07-08 16:00 | NUR ---
NURSE NOTES: patient refused to be cleaned today.
--- NOTE | 2020-07-08 16:01 | Surgery Progress Note ---
Surgery Progress Note Subjective Symptoms: improved, tolerating diet, passing flatus, BM Objective Last 24 Hour Vital Signs Date Time Temp Pulse Resp B/P (MAP) Pulse Ox O2 Delivery O2 Flow Rate FiO2 07/08/20 12:00 72 07/08/20 12:00 97.3 74 20 151/78 (102) 97 07/08/20 12:00 40 07/08/20 12:00 Mechanical Ventilator 07/08/20 11:10 70 20 45 07/08/20 08:00 Mechanical Ventilator 07/08/20 08:00 40 07/08/20 08:00 40 07/08/20 08:00 97.0 76 19 157/77 (103) 97 07/08/20 07:52 72 07/08/20 07:05 72 18 45 07/08/20 04:00 40 07/08/20 04:00 97.5 77 21 153/81 (105) 96 07/08/20 04:00 Mechanical Ventilator 07/08/20 03:45 76 07/08/20 02:48 75 18 45 07/08/20 00:00 45 07/08/20 00:00 Mechanical Ventilator 07/08/20 00:00 97.2 77 20 156/80 (105) 98 07/07/20 23:01 77 07/07/20 23:00 76 18 100 Mechanical Ventilator 45 78 18 45 07/07/20 20:00 Mechanical Ventilator 07/07/20 20:00 45 07/07/20 20:00 97.5 77 22 143/70 (94) 100 07/07/20 19:42 77 19 45 07/07/20 19:01 77 I&O Intake and Output 07/07/20 07/08/20 19:00 07:00 Intake Total 650 ml 850 ml Output Total 1320 ml 350 ml Balance -670 ml 500 ml Free Water 100 ml 300 ml Tube Feeding 550 ml 550 ml Output Urine Total 300 ml 200 ml Stool Total 20 ml 150 ml Hemodialysis UF 1000 ml Dressing: saturated Cardiovascular: RSR Respiratory: decreased breath sounds Abdomen: non-tender, present bowel sounds Extremities: no tenderness, no cyanosis Laboratory Tests Test 07/07/20 16:54 07/07/20 21:35 07/08/20 00:33 07/08/20 02:50 POC Whole Blood Glucose 111 MG/DL (74-106) H 118 MG/DL (74-106) H Random Vancomycin Level 16.6 ug/mL White Blood Count 10.1 K/UL (4.8-10.8) Red Blood Count 2.64 M/UL (4.70-6.10) L Hemoglobin 7.9 G/DL (14.2-18.0) L Hematocrit 23.1 % (42.0-52.0) L Mean Corpuscular Volume 87 FL (80-99) Mean Corpuscular Hemoglobin 29.9 PG (27.0-31.0) Mean Corpuscular Hemoglobin Concent 34.2 G/DL (32.0-36.0) Red Cell Distribution Width 17.1 % (11.6-14.8) H Platelet Count 184 K/UL (150-450) Mean Platelet Volume 8.9 FL (6.5-10.1) Neutrophils (%) (Auto) % (45.0-75.0) Lymphocytes (%) (Auto) % (20.0-45.0) Monocytes (%) (Auto) % (1.0-10.0) Eosinophils (%) (Auto) % (0.0-3.0) Basophils (%) (Auto) % (0.0-2.0) Sodium Level 131 MMOL/L (136-145) L Potassium Level 4.3 MMOL/L (3.5-5.1) Chloride Level 98 MMOL/L (98-107) Carbon Dioxide Level 32 MMOL/L (21-32) Anion Gap 1 mmol/L (5-15) L Blood Urea Nitrogen 52 mg/dL (7-18) H Creatinine 3.4 MG/DL (0.55-1.30) H Estimat Glomerular Filtration Rate 23.0 mL/min (>60) Glucose Level 149 MG/DL (74-106) H Calcium Level 8.3 MG/DL (8.5-10.1) L Test 07/08/20 04:53 07/08/20 12:22 POC Whole Blood Glucose 160 MG/DL (74-106) H 134 MG/DL (74-106) H Plan Problems: (1) Leukocytosis Assessment & Plan: 54-year-old male multiple comorbidities admitted for abnormal chest x-ray potentially pneumonia leukocytosis abnormal labs. Patient identified to have a prior left BKA surgical sutures still in place as well as a surgical sacral wound with sutures in place. Considerations of dehiscence being identified and potential etiology of infection. After evaluation unlikely source of infection though the sacral wound was looked to be dehiscing at the inferior aspect. No acute surgical mention at this time We will discussed care plan with PCP Recommend follow-up with initial surgeon considerations of removal of surgical sutures Care plan initiated worsening lft's US ordered ? shayla monitor for bleeding from right chest wall cath change dressings Extensive airspace consolidations at the lung bases consistent with severe multifocal infiltrate. Associated, large bilateral pleural effusions. Evaluation of the abdominal viscera is markedly suboptimal due to poor CT technique and lack of intravenous contrast. No definite hepatic lesion. No definite cholelithiasis. Mild colon wall thickening. The spleen, pancreas, and adrenal glands are not visualized well enough reliable assessment. No definite hydronephrosis. The kidneys are hyperdense, correlate for medical renal disease. No nephrolithiasis. Sparrow catheter within a decompressed urinary bladder. Moderate diverticulosis, without acute diverticulitis. No small bowel obstruction. PEG tube presumably within the stomach. Atherosclerotic calcifications of the aorta. Low-attenuation of the intravascular blood pool, correlate for anemia. IVC filter, incidentally noted. Air within the subcutaneous fat overlying the sacrum with skin thickening, correlate with physical exam for sacral decubitus ulcer. Degenerative changes of the spine. Bilateral pars defects at L5 without anterolisthesis of L5 on S1. IMPRESSION: Extensive airspace consolidations at the lung bases consistent with severe multifocal infiltrate. Associated, large bilateral pleural effusions. Evaluation of the abdominal viscera is markedly suboptimal due to poor CT technique and lack of intravenous contrast. Moderate diverticulosis, without acute diverticulitis. No small bowel obstruction. PEG tube presumably within the stomach. Note, if there is suspicion for colitis consider repeat scan with improved CT technique/intravenous contrast. Mild gallbladder wall thickening without definite evidence of cholelithiasis. Air within the subcutaneous fat overlying the sacrum with skin thickening, correlate with physical exam for sacral decubitus ulcer. Bilateral pars defects at L5. The kidneys are hyperdense, correlate for medical renal disease.. There is prompt uptake within the liver with washout of radiotracer from the liver on subsequent imaging. There is excretion into the biliary ducts. Gallbladder activity is present in a timely fashion indicating patency of the cystic duct. Very scant bowel activity is demonstrated concerning for common bile duct obstruction or sphincter dysfunction. IMPRESSION: No evidence to suggest cholecystitis. Gallbladder activity is present in a timely fashion indicating patency of the cystic duct. Very little radiotracer noted in the small bowel. Correlate with LFTs as a degree of common bile duct obstruction or sphincter dysfunction not excluded. Consider further evaluation with MRCP. (2) Surgical wound dehiscence Assessment & Plan: Patient identified to have a left BKA surgical sutures in place flap looks like it is taken well no signs of infection at this time no signs of seroma hematoma or drainage. Unknown exact length or duration of potential prior left BKA and until then recommend leaving sutures in place as it may be too early though it does look well-healed. If able to obtain prior records we will be happy to remove sutures otherwise will need follow-up with primary surgeon furthermore patient identified to have a surgical wound in the sacral area seems he probably potentially had a stage IV sacral decubitus ulcer that had debridement and primary closure. Fortunately. Sutures are still in place and it looks like the inferior aspect may be slowly dehiscing. There is no significant drainage no foul odor no signs of active infection unknown if bone was palpable prior. Can consider removing surgical sutures but again would recommend obtaining prior records of possible prior to doing so. Also recommend following up with primary surgeon as this may need ongoing continued care. Will follow with recommendations and as information is available. Continue current care plan. Wash wounds daily with normal saline. Apply skin protectant Optifoam dressing. Turn every 2 hours. Offload pressure with pillows and air mattress. Nutritional optimization. Worsening leukocytosis. Patient continues to have dehiscence of the prior primarily closed sacral decubitus ulcer. The sutures are was nearly torn out and the wound is opening and saturating with stool with bowel movements now has rectal tube. Unfortunately I see significant concern given dehiscence and therefore sutures were cut at the bedside and wound immediately opened under some tension. Underlying Vicryl sutures identified. There is some backbleeding some granulation tissue but definitely no take or closure of the stage IV sacral decubitus ulcer that was identified. Nonexcisional debridement done with gauze and jorge layer of slough and biofilm was removed wound was cleaned packing dressings applied. No abscess no purulent drainage unlikely etiology of infection. (3) History of left below knee amputation (4) Malnutrition Assessment & Plan: DAILY ESTIMATED NEEDS: Needs based on Wound, critical care, underweight/ 55.5kg 25-33 (25-35 w/ HD) kcals/kg 1001-4941 (6825-6548) total kcals 1.25-2 g protein/kg 69-111 g total protein 25-30 mL/kg 7582-3795 total fluid mLs NUTRITION DIAGNOSIS: * Swallowing difficulty R/T respiratory status as evidenced by pt is trach/vent dep, PEG dep. CURRENT TF: Nepro @ 40ml/hr x24 hrs ENTERAL NUTRITION RECOMMENDATIONS: Nepro @ 40ml/hr x 24 hrs to provide 960ml, 1728kcal, 78g prot, 698ml free water * Maintain current TF * HOB over 30 degrees/ water flush per MD ADDITIONAL RECOMMENDATIONS: * Per SNF: HT=69" [id number] -> rec daily calibrated bedscale wt * Monitor lytes: elev K-> now wnl, phos now low * Wound healing: RANDY BID + Nephrovite 1 tab qdaily * Monitor for bm, last bm 06/19, now 06/24 * W/ HD rec to add Prosource 1 pack qdaily for added 11g pro/day. (5) Anemia (6) KERRI (acute kidney injury) (7) Acute respiratory failure (8) Hyperkalemia (9) Anemia (10) Abnormal laboratory test result (11) Chronic respiratory failure (12) Hyperglycemia (13) Hypothyroidism Azar Mares Jul 08, 2020 16:00
[2020-07-08] MEDS: Cefepime HCl 500 MG in D5W 55 ML IV SCH (16:12)
--- NOTE | 2020-07-08 19:08 | NUR ---
NURSE HAND-OFF REPORT: Important Events on Shift:stable, refused to be cleaned Patient Status: fc Diet: tube feeds vital af @50X22 Pending Orders: [] Pending Results/Labs:[] Pending MD notification:[] Latest Vital Signs: Temperature 97.0 , Pulse 70 , B/P 146 /75 , Respiratory Rate 22 , O2 SAT 93 , Mechanical Ventilator, O2 Flow Rate 15.0 . Vital Sign Comment: stable EKG Rhythm: Sinus Rhythm Rhythm change?: N MD Notified?: Y -Dr. Mcguire and Dr. Ambika BENDER Response: No New Orders Received Latest Santiago Fall Score: 75 Fall Risk: High Risk Safety Measures: Call light Within Reach, Bed Alarm Zone 2, Side Rails Side Rails x2, Bed position Low and Locked. Fall Precautions: Yellow Gown Patient Fall Education Report given to nichol joy.
--- NOTE | 2020-07-08 19:38 | NUR ---
NURSE NOTES: Received report from Juana Rn and Humble Rn, pt. in bed awake, appears to be A/O X's 3- able to follow simple commands, no signs or symptoms of acute cardiac or respiratory distress noted, bed alarm on, side rails up x's 3 and safety brakes engaged, call light within easy reach, pt. is SR on monitor, appears to be resting comfortably in bed, pt. appears to be tolerating current vent settings well- AC 18, TV 500, Fio2 at 40% and peep of 5- no distress noted, pt. has G tube feeding running Vital AF at 50cc/hr- no residual noted, rectal tube and Sparrow both draining to gravity, pt. has RIJ Perma cath intact, Right hand 22G IV intact and patent- safety measures continued, will continue with plan of care.
[2020-07-08] MEDS: Dyna-Hex 2% Top Sol 2oz TOPIC SCH (20:11)
--- NOTE | 2020-07-08 21:06 | General Progress Note ---
Subjective ROS Limited/Unobtainable: Yes Allergies: Coded Allergies: No Known Allergies (Unverified , 06/13/20) Objective Last 24 Hour Vital Signs Date Time Temp Pulse Resp B/P (MAP) Pulse Ox O2 Delivery O2 Flow Rate FiO2 07/08/20 20:00 97.2 72 20 153/80 (104) 96 07/08/20 20:00 40 07/08/20 20:00 Mechanical Ventilator 07/08/20 18:42 70 22 45 07/08/20 16:00 97.0 74 19 146/75 (98) 93 07/08/20 16:00 40 07/08/20 16:00 Mechanical Ventilator 07/08/20 16:00 74 07/08/20 15:10 74 19 45 07/08/20 12:00 72 07/08/20 12:00 97.3 74 20 151/78 (102) 97 07/08/20 12:00 40 07/08/20 12:00 Mechanical Ventilator 07/08/20 11:10 70 20 45 07/08/20 08:00 Mechanical Ventilator 07/08/20 08:00 40 07/08/20 08:00 40 07/08/20 08:00 97.0 76 19 157/77 (103) 97 07/08/20 07:52 72 07/08/20 07:05 72 18 45 07/08/20 04:00 40 07/08/20 04:00 97.5 77 21 153/81 (105) 96 07/08/20 04:00 Mechanical Ventilator 07/08/20 03:45 76 07/08/20 02:48 75 18 45 07/08/20 00:00 45 07/08/20 00:00 Mechanical Ventilator 07/08/20 00:00 97.2 77 20 156/80 (105) 98 07/07/20 23:01 77 07/07/20 23:00 76 18 100 Mechanical Ventilator 45 78 18 45 Intake and Output 07/07/20 07/08/20 19:00 07:00 Intake Total 650 ml 850 ml Output Total 1320 ml 350 ml Balance -670 ml 500 ml Free Water 100 ml 300 ml Tube Feeding 550 ml 550 ml Output Urine Total 300 ml 200 ml Stool Total 20 ml 150 ml Hemodialysis UF 1000 ml Laboratory Tests 07/07/20 21:35: Random Vancomycin Level 16.6 07/08/20 00:33: POC Whole Blood Glucose 118H 07/08/20 02:50: White Blood Count 10.1, Red Blood Count 2.64L, Hemoglobin 7.9L, Hematocrit 23.1L , Mean Corpuscular Volume 87, Mean Corpuscular Hemoglobin 29.9, Mean Corpuscular Hemoglobin Concent 34.2, Red Cell Distribution Width 17.1H, Platelet Count 184, Mean Platelet Volume 8.9, Neutrophils (%) (Auto) , Lymphocytes (%) (Auto) , Mon ocytes (%) (Auto) , Eosinophils (%) (Auto) , Basophils (%) (Auto) , Sodium Level 131L, Potassium Level 4.3, Chloride Level 98, Carbon Dioxide Level 32, Anion Gap 1L, Blood Urea Nitrogen 52H, Creatinine 3.4H, Estimat Glomerular Filtration Rate 23.0, Glucose Level 149H, Calcium Level 8.3L 07/08/20 04:53: POC Whole Blood Glucose 160H 07/08/20 12:22: POC Whole Blood Glucose 134H 07/08/20 17:02: POC Whole Blood Glucose 138H Height (Feet): 5 Height (Inches): 8.00 Weight (Pounds): 143 Assessment/Plan Problem List: (1) Anemia ICD Codes: D64.9 - Anemia, unspecified SNOMED: 489070609 (2) KERRI (acute kidney injury) ICD Codes: N17.9 - Acute kidney failure, unspecified SNOMED: 2249988, 96760736 (3) Acute respiratory failure ICD Codes: J96.00 - Acute respiratory failure, unspecified whether with hypoxia or hypercapnia SNOMED: 72733656 Qualifiers: Qualified Codes: J96.02 - Acute respiratory failure with hypercapnia (4) Hyperkalemia ICD Codes: E87.5 - Hyperkalemia SNOMED: 09665145 (5) Abnormal laboratory test result ICD Codes: R89.9 - Unspecified abnormal finding in specimens from other organs, systems and tissues SNOMED: 649741705 (6) Anemia ICD Codes: D64.9 - Anemia, unspecified SNOMED: 126236169 Status: progressing Assessment/Plan: afebrile resp insuff supportive rx no change anemia low hb s/p pulmonary edema pvc s/p acute Neida Pacheco MD Jul 08, 2020 21:06
--- NOTE | 2020-07-08 21:14 | General Progress Note ---
Subjective Allergies: Coded Allergies: No Known Allergies (Unverified , 06/13/20) Subjective above noted stools liquid, in rectal tube brown - small volume tolerating TF LFT still elevated but slowly declining all liver serologic w/u except CMV PCR still pending RD eval noted Albumin low Objective Last 24 Hour Vital Signs Date Time Temp Pulse Resp B/P (MAP) Pulse Ox O2 Delivery O2 Flow Rate FiO2 07/08/20 20:00 97.2 72 20 153/80 (104) 96 07/08/20 20:00 40 07/08/20 20:00 Mechanical Ventilator 07/08/20 18:42 70 22 45 07/08/20 16:00 97.0 74 19 146/75 (98) 93 07/08/20 16:00 40 07/08/20 16:00 Mechanical Ventilator 07/08/20 16:00 74 07/08/20 15:10 74 19 45 07/08/20 12:00 72 07/08/20 12:00 97.3 74 20 151/78 (102) 97 07/08/20 12:00 40 07/08/20 12:00 Mechanical Ventilator 07/08/20 11:10 70 20 45 07/08/20 08:00 Mechanical Ventilator 07/08/20 08:00 40 07/08/20 08:00 40 07/08/20 08:00 97.0 76 19 157/77 (103) 97 07/08/20 07:52 72 07/08/20 07:05 72 18 45 07/08/20 04:00 40 07/08/20 04:00 97.5 77 21 153/81 (105) 96 07/08/20 04:00 Mechanical Ventilator 07/08/20 03:45 76 07/08/20 02:48 75 18 45 07/08/20 00:00 45 07/08/20 00:00 Mechanical Ventilator 07/08/20 00:00 97.2 77 20 156/80 (105) 98 07/07/20 23:01 77 07/07/20 23:00 76 18 100 Mechanical Ventilator 45 78 18 45 Intake and Output 07/07/20 07/08/20 19:00 07:00 Intake Total 650 ml 850 ml Output Total 1320 ml 350 ml Balance -670 ml 500 ml Free Water 100 ml 300 ml Tube Feeding 550 ml 550 ml Output Urine Total 300 ml 200 ml Stool Total 20 ml 150 ml Hemodialysis UF 1000 ml Laboratory Tests 07/07/20 21:35: Random Vancomycin Level 16.6 07/08/20 00:33: POC Whole Blood Glucose 118H 07/08/20 02:50: White Blood Count 10.1, Red Blood Count 2.64L, Hemoglobin 7.9L, Hematocrit 23.1L , Mean Corpuscular Volume 87, Mean Corpuscular Hemoglobin 29.9, Mean Corpuscular Hemoglobin Concent 34.2, Red Cell Distribution Width 17.1H, Platelet Count 184, Mean Platelet Volume 8.9, Neutrophils (%) (Auto) , Lymphocytes (%) (Auto) , Monocytes (%) (Auto) , Eosinophils (%) (Auto) , Basophils (%) (Auto) , Sodium Level 131L, Potassium Level 4.3, Chloride Level 98, Carbon Dioxide Level 32, Anion Gap 1L, Blood Urea Nitrogen 52H, Creatinine 3.4H, Estimat Glomerular Filtration Rate 23.0, Glucose Level 149H, Calcium Level 8.3L 07/08/20 04:53: POC Whole Blood Glucose 160H 07/08/20 12:22: POC Whole Blood Glucose 134H 07/08/20 17:02: POC Whole Blood Glucose 138H Height (Feet): 5 Height (Inches): 8.00 Weight (Pounds): 143 Objective Debilitated elderly man NCAT supple Coarse BS RRR abd sofft, flat, (+) GT s/p LLE BKA Assessment/Plan Status: progressing Assessment/Plan: Assessment Abnormal LFT - steadily improving (s/p US, CT, HIDA) - ? infectious hepatitis - Hep A and B negative - ? vascular - ? meds - ? other Gross hematuria - improved Acute anemia, ? urinary losses, ? GI loss ? surgical loss low platelet count low albumin - will increase TF rate Recommendations - f/u CMV PCR - Unable to have MRCP due to vent - continue to hold seroquel - follow LFT and CBC - no plans for GI w/u, per family discussion - TF - increase rate to give more Kcal and protein - Transfuse Fco Banerjee MD Jul 08, 2020 21:14
--- NOTE | 2020-07-09 00:53 | NUR ---
NURSE NOTES: bed bath given, linens changed, oral care provided, repositioned and turned pt.- pt. appears to be sating well on current vent settings at 100%- no distress noted, pt. appears to be resting comfortably- aspiration and skin precautions observed, will continue to monitor pt. and with plan of care.
[2020-07-09 04:00] VITALS: BP 151/79
[2020-07-09] MEDS: Aluminum Hydroxide Gel Susp 15ml GT SCH ×4 (04:00→21:02)
[2020-07-09] MEDS: NovoLOG Insulin Flexpen SUBQ SCH ×4 (05:20→23:01)
--- NOTE | 2020-07-09 05:48 | NUR ---
N[facility]SE NOTES[facility] paper [facility] for administration time. Addendum: 07/09/20 at 0552 by ALLAN SOTELO RN RN see administration time for Amphojel.
[2020-07-09 05:55] LABS: HEMOGLOBIN 7.6 G/DL (14.2-18.0); MEAN CORPUSCULAR VOLUME 88 FL (80-99); PLATELET COUNT 185 K/UL (150-450); RED BLOOD COUNT 2.61 M/UL (4.70-6.10); WHITE BLOOD COUNT 9.8 K/UL (4.8-10.8)
[2020-07-09 06:00] LABS: CALCIUM 8.1 MG/DL (8.5-10.1); CREATININE 3.8 MG/DL (0.55-1.30); POTASSIUM 4.8 MMOL/L (3.5-5.1)
--- NOTE | 2020-07-09 06:33 | General Progress Note ---
Subjective ROS Limited/Unobtainable: Yes Allergies: Coded Allergies: No Known Allergies (Unverified , 06/13/20) Subjective events noted interval notes reviewed glucose values are stable Item Value Date Time Bedside Blood Glucose 124 mg/dl H 07/09/20 0520 Bedside Blood Glucose 136 mg/dl H 07/08/20 2300 Bedside Blood Glucose 136 mg/dl H 07/08/20 2245 Bedside Blood Glucose 138 mg/dl H 07/08/20 1705 Bedside Blood Glucose 134 mg/dl H 07/08/20 1200 Bedside Blood Glucose 160 mg/dl H 07/08/20 0600 Bedside Blood Glucose 118 mg/dl 07/08/20 0000 Objective Last 24 Hour Vital Signs Date Time Temp Pulse Resp B/P (MAP) Pulse Ox O2 Delivery O2 Flow Rate FiO2 07/09/20 04:02 74 07/09/20 04:00 Mechanical Ventilator 07/09/20 04:00 96.8 75 20 151/79 (103) 98 07/09/20 04:00 40 07/09/20 02:37 72 22 40 07/09/20 02:37 72 22 100 Mechanical Ventilator 40 07/09/20 00:07 70 07/09/20 00:00 40 07/09/20 00:00 Mechanical Ventilator 07/08/20 23:53 97.0 68 18 148/74 (98) 100 07/08/20 22:35 75 19 100 Mechanical Ventilator 40 100 22 40 07/08/20 20:00 97.2 72 20 153/80 (104) 96 07/08/20 20:00 40 07/08/20 20:00 Mechanical Ventilator 07/08/20 19:50 72 07/08/20 18:42 70 22 45 07/08/20 16:00 97.0 74 19 146/75 (98) 93 07/08/20 16:00 40 07/08/20 16:00 Mechanical Ventilator 07/08/20 16:00 74 07/08/20 15:10 74 19 45 07/08/20 12:00 72 07/08/20 12:00 97.3 74 20 151/78 (102) 97 07/08/20 12:00 40 07/08/20 12:00 Mechanical Ventilator 07/08/20 11:10 70 20 45 07/08/20 08:00 Mechanical Ventilator 12/1/20 08:00 40 07/08/20 08:00 40 07/08/20 08:00 97.0 76 19 157/77 (103) 97 07/08/20 07:52 72 07/08/20 07:05 72 18 45 Intake and Output 07/08/20 07/09/20 19:00 07:00 Intake Total 655 ml 695 ml Output Total 200 ml Balance 655 ml 495 ml Free Water 50 ml 50 ml IV Total 55 ml Tube Feeding 550 ml 645 ml Output Urine Total 50 ml Stool Total 150 ml Laboratory Tests 07/08/20 12:22: POC Whole Blood Glucose 134H 07/08/20 17:02: POC Whole Blood Glucose 138H 07/08/20 22:43: POC Whole Blood Glucose [Pending] 07/09/20 03:10: White Blood Count 9.8, Red Blood Count 2.61L, Hemoglobin 7.6L, Hematocrit 23.0L, Mean Corpuscular Volume 88, Mean Corpuscular Hemoglobin 29.3, Mean Corpuscular Hemoglobin Concent 33.3, Red Cell Distribution Width 17.0H, Platelet Count 185, Mean Platelet Volume 8.6, Neutrophils (%) (Auto) , Lymphocytes (%) (Auto) , Monocytes (%) (Auto) , Eosinophils (%) (Auto) , Basophils (%) (Auto) , Sodium Level 131L, Potassium Level 4.8, Chloride Level 97L, Carbon Dioxide Level 30, A nion Gap 4L, Blood Urea Nitrogen 68H, Creatinine 3.8H, Estimat Glomerular Fi ltration Rate 20.2, Glucose Level 118H, Calcium Level 8.1L 07/09/20 04:45: POC Whole Blood Glucose 124H Height (Feet): 5 Height (Inches): 8.00 Weight (Pounds): 143 General Appearance: no apparent distress Neck: normal alignment Respiratory/Chest: decreased breath sounds Abdomen: normal bowel sounds Objective Current Medications Medications (Trade) Dose Ordered Sig/Maryjane Route PRN Reason Start Time Stop Time Status Last Admin Dose Admin Acetaminophen (Tylenol) 650 mg Q4H PRN GT Mild Pain (Pain Scale 1-3) 06/18/20 23:00 07/18/20 22:59 Acetaminophen (Tylenol) 650 mg Q4HR PRN GT FEVER 06/14/20 09:45 07/14/20 09:44 06/19/20 20:45 Aluminum Hydroxide (Amphojel) 1,920 mg Q6H GT 06/17/20 10:00 07/17/20 09:59 07/08/20 21:09 Ascorbic Acid (Vitamin C) 500 mg DAILY GT 07/01/20 09:00 07/31/20 08:59 07/08/20 08:17 Cefepime HCl 500 mg/Dextrose 55 ml @ 110 mls/hr Q24H IV 07/08/20 16:00 07/15/20 15:59 07/08/20 16:12 Chlorhexidine Gluconate (Inés-Hex 2%) 1 applic DAILY@1999 TOPIC 06/21/20 20:00 09/19/20 19:59 07/08/20 20:11 Dextrose (Dextrose 50%) 25 ml Q30M PRN IV Hypoglycemia 06/28/20 18:30 09/26/20 18:29 Dextrose (Dextrose 50%) 50 ml Q30M PRN IV Hypoglycemia 06/28/20 18:30 09/26/20 18:29 Epoetin Bonilla (Epoetin Bonilla(ESRD on dialysis)) 10,000 unit TUE-TUE-TUE SUBQ 07/02/20 21:00 09/16/20 20:59 07/07/20 20:47 Gentamicin Sulfate (Gentamicin vial) 300 mg Q12HR@10,22 INH 07/07/20 22:00 07/14/20 21:59 07/08/20 22:00 Haloperidol Lactate (Haldol) 5 mg Q6H PRN IM Agitation 06/21/20 23:15 08/05/20 23:14 06/25/20 18:17 Insulin Aspart (NovoLOG) EVERY 6 HOURS SUBQ 06/29/20 00:00 09/27/20 00:00 07/08/20 05:28 Lansoprazole (Prevacid) 30 mg Q12HR GT 06/30/20 21:00 07/30/20 20:59 07/08/20 20:11 Levothyroxine Sodium (Synthroid) 88 mcg DAILY@0630 GT 07/03/20 06:30 08/02/20 06:29 07/09/20 05:33 Vancomycin HCl (Vanco pharmacy to dose) 1 ea DAILY PRN MISC Per rx protocol 06/27/20 11:30 07/18/20 23:59 Assessment/Plan Problem List: (1) History of left below knee amputation ICD Codes: Z89.512 - Acquired absence of left leg below knee SNOMED: 286353334, 358330301459334 (2) Surgical wound dehiscence ICD Codes: T81.31XA - Disruption of external operation (surgical) wound, not elsewhere classified, initial encounter SNOMED: 30911452 (3) Hyperkalemia ICD Codes: E87.5 - Hyperkalemia SNOMED: 12166960 (4) Acute respiratory failure ICD Codes: J96.00 - Acute respiratory failure, unspecified whether with hypoxia or hypercapnia SNOMED: 94903463 Qualifiers: Qualified Codes: J96.02 - Acute respiratory failure with hypercapnia (5) Hypothyroidism ICD Codes: E03.9 - Hypothyroidism, unspecified SNOMED: 87253568 (6) Hyperglycemia ICD Codes: R73.9 - Hyperglycemia, unspecified SNOMED: 15671989 Status: progressing Assessment/Plan: continue Levothyroxine 88 mcg daily repeat thyroid function in 1-2 weeks continue glucose monitoring Davy Ramos MD Jul 09, 2020 06:33
--- NOTE | 2020-07-09 06:53 | Hematology/Onc Progress Note ---
Assessment/Plan Assessment/Plan ASSESSMENT AND PLAN: #. Anemia that is likely due to chronic disease, r/o gi bleeding --> anemia panel has been reviewed, ferritin is >2000 --> no e/o hemolysis is noted --> transfuse on prn basis --> blood consent has been signed --> hgb 7.4-->7.4-->7-->6.7-->8-->7.5-->8.4-->9.1->8.1-->5.6->7.4-->7-->6.6->8-->7.5--> 7.9 --> folic acid is wnl --> 1 unit prbc 06/18 --> epogen has been started # Acute DVT in the distal right common femoral vein and profunda femoris vein. --> DUPLEX. Acute DVT in the distal right common femoral vein and profunda fem lilli vein. 2. No evidence of left lower extremity DVT. --> cannot anticoagulate at this time --> 06/17 s/p ivc filter placement --> hold off anticoag # Leukocytosis is likely due to b/l infiltrates --> on abx as per id -> ABX yolis/vanc-->yolis/linezolid--> yolis/levaq-->linezolid->vanc-->cefepime/gent --> continue trend --> wbc 15-->12->9.5-->13-->14 # Thrombocytopenia likely due to infection --> plt 82-->67->78 --> hep and hiv neg # Respiratory failure in this patient with vent-dependent respiratory failure. 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 # Dysphagia --> status post PEG placement. # Renal failure. -> per Dr. Honeycutt. # Hyperkalemia and kayxelate as needed. # Dvt ppx scds Appreciate consultation and angela RN Subjective Allergies: Coded Allergies: No Known Allergies (Unverified , 06/13/20) All Systems: reviewed and negative except above Subjective 06/16 meds noted, labs reviewed, vent to trach, for ivc filter potentially 06/17 labs noted, meds reviewed, for ivc filter once covid neg 06/18 labs are noted, on vent and gt, 1 unit prbc ordered 06/19 labs pending, is s/p ivcf placement yesterday 06/20 for hd nontunneled cathter placement, no bleeding 06/22 labs noted, no bleeding, found down overnight, got ct brain, is neg 06/23 overnight is agitated and requiring restraints 06/24 labs noted, meds reviewed, hgb pending for am, restraints 06/25 labs reviewed, meds noted, no bleeding, hgb improved 06/26 per Rn, with rapid response overnight hr is improved, meds noted 06/27 labs reviewed, meds noted, no bleeding, hgb 5.6, wbc elevated, to get 2 unit prbc 06/29 on vanc, wbc 13, hgb 7.3, plt 88, on vanc 06/30 meds reviewed, hgb at 7, occult +, as per gi care, with diarrhea 07/01 plt 67, hgb 6.6, to get 2 units prbc, angela RN at bedside 07/02 RUC permacath reviewed, minimal bleeding, meds noted 07/03 gt feeds, meds noted, no bleeding, labs reviewed 07/04 awake, alert is on ivf, meds noted, labs reviewed 07/06 labs reviewed, meds noted, gt, watching tv 07/07 a+o x2, no bleeding, meds reviewed, no major changes 07/08 at bedside angela rn, on abx, labs pending for today, no bleeding 07/09 comfortable overnight, on vent, labs reviewed, abx Objective Objective Current Medications Medications (Trade) Dose Ordered Sig/Maryjane Route PRN Reason Start Time Stop Time Status Last Admin Dose Admin Acetaminophen (Tylenol) 650 mg Q4H PRN GT Mild Pain (Pain Scale 1-3) 06/18/20 23:00 07/18/20 22:59 Acetaminophen (Tylenol) 650 mg Q4HR PRN GT FEVER 06/14/20 09:45 07/14/20 09:44 06/19/20 20:45 Aluminum Hydroxide (Amphojel) 1,920 mg Q6H GT 06/17/20 10:00 07/17/20 09:59 07/08/20 21:09 Ascorbic Acid (Vitamin C) 500 mg DAILY GT 07/01/20 09:00 07/31/20 08:59 07/08/20 08:17 Cefepime HCl 500 mg/Dextrose 55 ml @ 110 mls/hr Q24H IV 07/08/20 16:00 07/15/20 15:59 07/08/20 16:12 Chlorhexidine Gluconate (Inés-Hex 2%) 1 applic DAILY@1999 TOPIC 06/21/20 20:00 09/19/20 19:59 07/08/20 20:11 Dextrose (Dextrose 50%) 25 ml Q30M PRN IV Hypoglycemia 06/28/20 18:30 09/26/20 18:29 Dextrose (Dextrose 50%) 50 ml Q30M PRN IV Hypoglycemia 06/28/20 18:30 09/26/20 18:29 Epoetin Bonilla (Epoetin Bonilla(ESRD on dialysis)) 10,000 unit TUE-TUE-TUE SUBQ 07/02/20 21:00 09/16/20 20:59 07/07/20 20:47 Gentamicin Sulfate (Gentamicin vial) 300 mg Q12HR@10,22 INH 07/07/20 22:00 07/14/20 21:59 07/08/20 22:00 Haloperidol Lactate (Haldol) 5 mg Q6H PRN IM Agitation 06/21/20 23:15 08/05/20 23:14 06/25/20 18:17 Insulin Aspart (NovoLOG) EVERY 6 HOURS SUBQ 06/29/20 00:00 09/27/20 00:00 07/08/20 05:28 Lansoprazole (Prevacid) 30 mg Q12HR GT 06/30/20 21:00 07/30/20 20:59 07/08/20 20:11 Levothyroxine Sodium (Synthroid) 88 mcg DAILY@0630 GT 07/03/20 06:30 08/02/20 06:29 07/09/20 05:33 Vancomycin HCl ([facility] pharmacy to dose) 1 ea DAILY PRN MISC Per rx protocol 06/27/20 11:30 07/18/20 23:59 Last 24 Hour Vital Signs Date Time Temp Pulse Resp B/P (MAP) Pulse Ox O2 Delivery O2 Flow Rate FiO2 07/09/20 04:02 74 07/09/20 04:00 Mechanical Ventilator 07/09/20 04:00 96.8 75 20 151/79 (103) 98 07/09/20 04:00 40 07/09/20 02:37 72 22 40 07/09/20 02:37 72 22 100 Mechanical Ventilator 40 07/09/20 00:07 70 07/09/20 00:00 40 07/09/20 00:00 Mechanical Ventilator 07/08/20 23:53 97.0 68 18 148/74 (98) 100 07/08/20 22:35 75 19 100 Mechanical Ventilator 40 100 22 40 07/08/20 20:00 97.2 72 20 153/80 (104) 96 07/08/20 20:00 40 07/08/20 20:00 Mechanical Ventilator 07/08/20 19:50 72 07/08/20 18:42 70 22 45 07/08/20 16:00 97.0 74 19 146/75 (98) 93 07/08/20 16:00 40 07/08/20 16:00 Mechanical Ventilator 07/08/20 16:00 74 07/08/20 15:10 74 19 45 07/08/20 12:00 72 07/08/20 12:00 97.3 74 20 151/78 (102) 97 07/08/20 12:00 40 07/08/20 12:00 Mechanical Ventilator 07/08/20 11:10 70 20 45 07/08/20 08:00 Mechanical Ventilator 07/08/20 08:00 40 07/08/20 08:00 40 07/08/20 08:00 97.0 76 19 157/77 (103) 97 07/08/20 07:52 72 07/08/20 07:05 72 18 45 07/08/20 04:00 40 07/08/20 04:00 97.5 77 21 153/81 (105) 96 07/08/20 04:00 Mechanical Ventilator 07/08/20 03:45 76 07/08/20 02:48 75 18 45 07/08/20 00:00 45 07/08/20 00:00 Mechanical Ventilator 07/08/20 00:00 97.2 77 20 156/80 (105) 98 07/07/20 23:01 77 07/07/20 23:00 76 18 100 Mechanical Ventilator 45 78 18 45 07/07/20 20:00 Mechanical Ventilator 07/07/20 20:00 45 07/07/20 20:00 97.5 77 22 143/70 (94) 100 07/07/20 19:42 77 19 45 07/07/20 19:01 77 07/07/20 16:00 97.8 79 18 154/58 (90) 100 07/07/20 16:00 45 07/07/20 16:00 76 07/07/20 16:00 Mechanical Ventilator 07/07/20 14:53 82 20 45 07/07/20 12:00 Mechanical Ventilator 07/07/20 12:00 97.0 70 18 140/77 (98) 100 07/07/20 12:00 45 07/07/20 12:00 70 07/07/20 11:11 72 21 45 07/07/20 08:00 70 07/07/20 08:00 45 07/07/20 08:00 97.0 67 18 144/77 (99) 100 07/07/20 08:00 Mechanical Ventilator 07/07/20 07:06 67 21 45 Intake and Output 07/08/20 07/09/20 19:00 07:00 Intake Total 655 ml 695 ml Output Total 200 ml Balance 655 ml 495 ml Free Water 50 ml 50 ml IV Total 55 ml Tube Feeding 550 ml 645 ml Output Urine Total 50 ml Stool Total 150 ml Labs Test 07/06/20 09:11 07/06/20 12:19 07/06/20 16:56 07/06/20 23:52 Arterial Blood pH 7.273 (7.350-7.450) Arterial Blood Partial Pressure CO2 60.5 mmHg (35.0-45.0) Arterial Blood Partial Pressure O2 91.5 mmHg (75.0-100.0) Arterial Blood HCO3 27.3 mmol/L (22.0-26.0) Arterial Blood Oxygen Saturation 97.1 % (95-100) Arterial Blood Base Excess 0.1 (-2-2) Joe Test Positive POC Whole Blood Glucose 117 MG/DL (74-106) 120 MG/DL (74-106) Test 07/07/20 04:41 07/07/20 06:13 07/07/20 12:48 07/07/20 16:54 White Blood Count 11.8 K/UL (4.8-10.8) Red Blood Count 2.34 M/UL (4.70-6.10) Hemoglobin 7.0 G/DL (14.2-18.0) Hematocrit 20.6 % (42.0-52.0) Mean Corpuscular Volume 88 FL (80-99) Mean Corpuscular Hemoglobin 30.0 PG (27.0-31.0) Mean Corpuscular Hemoglobin Concent 34.0 G/DL (32.0-36.0) Red Cell Distribution Width 16.8 % (11.6-14.8) Platelet Count 188 K/UL (150-450) Mean Platelet Volume 9.1 FL (6.5-10.1) Neutrophils (%) (Auto) % (45.0-75.0) Lymphocytes (%) (Auto) % (20.0-45.0) Monocytes (%) (Auto) % (1.0-10.0) Eosinophils (%) (Auto) % (0.0-3.0) Basophils (%) (Auto) % (0.0-2.0) Sodium Level 130 MMOL/L (136-145) Potassium Level 5.2 MMOL/L (3.5-5.1) Chloride Level 97 MMOL/L (98-107) Carbon Dioxide Level 29 MMOL/L (21-32) Anion Gap 4 mmol/L (5-15) Blood Urea Nitrogen 83 mg/dL (7-18) Creatinine 4.6 MG/DL (0.55-1.30) Estimat Glomerular Filtration Rate 16.2 mL/min (>60) Glucose Level 141 MG/DL (74-106) Calcium Level 8.1 MG/DL (8.5-10.1) POC Whole Blood Glucose 112 MG/DL (74-106) 91 MG/DL (74-106) 111 MG/DL (74-106) Test 07/07/20 21:35 07/08/20 00:33 07/08/20 02:50 07/08/20 04:53 Random Vancomycin Level 16.6 ug/mL POC Whole Blood Glucose 118 MG/DL (74-106) 160 MG/DL (74-106) White Blood Count 10.1 K/UL (4.8-10.8) Red Blood Count 2.64 M/UL (4.70-6.10) Hemoglobin 7.9 G/DL (14.2-18.0) Hematocrit 23.1 % (42.0-52.0) Mean Corpuscular Volume 87 FL (80-99) Mean Corpuscular Hemoglobin 29.9 PG (27.0-31.0) Mean Corpuscular Hemoglobin Concent 34.2 G/DL (32.0-36.0) Red Cell Distribution Width 17.1 % (11.6-14.8) Platelet Count 184 K/UL (150-450) Mean Platelet Volume 8.9 FL (6.5-10.1) Neutrophils (%) (Auto) % (45.0-75.0) Lymphocytes (%) (Auto) % (20.0-45.0) Monocytes (%) (Auto) % (1.0-10.0) Eosinophils (%) (Auto) % (0.0-3.0) Basophils (%) (Auto) % (0.0-2.0) Sodium Level 131 MMOL/L (136-145) Potassium Level 4.3 MMOL/L (3.5-5.1) Chloride Level 98 MMOL/L (98-107) Carbon Dioxide Level 32 MMOL/L (21-32) Anion Gap 1 mmol/L (5-15) Blood Urea Nitrogen 52 mg/dL (7-18) Creatinine 3.4 MG/DL (0.55-1.30) Estimat Glomerular Filtration Rate 23.0 mL/min (>60) Glucose Level 149 MG/DL (74-106) Calcium Level 8.3 MG/DL (8.5-10.1) Test 07/08/20 12:22 07/08/20 17:02 07/08/20 22:43 07/09/20 03:10 POC Whole Blood Glucose 134 MG/DL (74-106) 138 MG/DL (74-106) White Blood Count 9.8 K/UL (4.8-10.8) Red Blood Count 2.61 M/UL (4.70-6.10) Hemoglobin 7.6 G/DL (14.2-18.0) Hematocrit 23.0 % (42.0-52.0) Mean Corpuscular Volume 88 FL (80-99) Mean Corpuscular Hemoglobin 29.3 PG (27.0-31.0) Mean Corpuscular Hemoglobin Concent 33.3 G/DL (32.0-36.0) Red Cell Distribution Width 17.0 % (11.6-14.8) Platelet Count 185 K/UL (150-450) Mean Platelet Volume 8.6 FL (6.5-10.1) Neutrophils (%) (Auto) % (45.0-75.0) Lymphocytes (%) (Auto) % (20.0-45.0) Monocytes (%) (Auto) % (1.0-10.0) Eosinophils (%) (Auto) % (0.0-3.0) Basophils (%) (Auto) % (0.0-2.0) Sodium Level 131 MMOL/L (136-145) Potassium Level 4.8 MMOL/L (3.5-5.1) Chloride Level 97 MMOL/L (98-107) Carbon Dioxide Level 30 MMOL/L (21-32) Anion Gap 4 mmol/L (5-15) Blood Urea Nitrogen 68 mg/dL (7-18) Creatinine 3.8 MG/DL (0.55-1.30) Estimat Glomerular Filtration Rate 20.2 mL/min (>60) Glucose Level 118 MG/DL (74-106) Calcium Level 8.1 MG/DL (8.5-10.1) Test 07/09/20 04:45 POC Whole Blood Glucose 124 MG/DL (74-106) Height (Feet): 5 Height (Inches): 8.00 Weight (Pounds): 143 Objective PHYSICAL EXAMINATION: VITAL SIGNS: reviewed HEAD AND NECK: Show status post tracheostomy. vent+ LUNGS: Coarse rhonchi and basilar rales. CARDIOVASCULAR: Shows irregular S1 and S2 with no gallop. ABDOMEN: Soft. Status post G-tube. EXTREMITIES: No pitting edema.++Left yasmina Jose Tan MD Jul 09, 2020 06:53
--- NOTE | 2020-07-09 06:56 | NUR ---
NURSE HAND-OFF REPORT: Important Events on Shift:none Patient Status: stable Diet: Vital AF Pending Orders: Pending Results/Labs: Pending MD notification: Latest Vital Signs: Temperature 96.8 , Pulse 74 , B/P 151 /79 , Respiratory Rate 20 , O2 SAT 98 , Mechanical Ventilator, O2 Flow Rate 15.0 . Vital Sign Comment: EKG Rhythm: Sinus Rhythm Rhythm change?: N MD Notified?: MD Response: Latest Santiago Fall Score: 75 Fall Risk: High Risk Safety Measures: Call light Within Reach, Bed Alarm Zone 2, Side Rails Side Rails x2, Bed position Low and Locked. Fall Precautions: Yellow Gown Patient Fall Education Report given to Juana SANTANA and Humble RN- aware to f/u on any abnormal am labs.
--- NOTE | 2020-07-09 07:00 | NUR ---
NURSE HAND-OFF REPORT: Important Events on Shift: had hemodialysis today. 1L out. Patient Status: FULL CODE Diet: Vital AF 70ml/hr Pending Orders: n/a Pending Results/Labs:n/a Pending MD notification:n/a Latest Vital Signs: Temperature 97.0 , Pulse 76 , B/P 157 /79 , Respiratory Rate 18 , O2 SAT 97 , Mechanical Ventilator, O2 Flow Rate 15.0 . Vital Sign Comment: stable EKG Rhythm: Sinus Rhythm Rhythm change?: N MD Notified?: Y -Dr. Mcguire and Dr. Ambika BENDER Response: No New Orders Received Latest Santiago Fall Score: 75 Fall Risk: High Risk Safety Measures: Call light Within Reach, Bed Alarm Zone 2, Side Rails Side Rails x2, Bed position Low and Locked. Fall Precautions: Yellow Gown Patient Fall Education Report given to MAX Gracia.
--- NOTE | 2020-07-09 07:06 | NUR ---
NURSE NOTES: Received patient from MAX Gracia. Patient is asleep in bed without any distress. Sinus rhythm on the monitor. trach to vent at prescribed settings, tolerating well. Gtube is in place and tube feeding running at prescribed settings. rectal tube and cabrera draining well to gravity. Bed is in the lowest position and locked, call light within easy reach. Will continue plan of care.
[2020-07-09 08:00] VITALS: BP 128/79
[2020-07-09] MEDS: Ascorbic Acid 500mg tab GT SCH (08:15)
--- NOTE | 2020-07-09 10:28 | Infectious Diseases Prog Note ---
Assessment/Plan Assessment/Plan IMPRESSION: Pneumonia with Pseudomonas & Providencia Hypothermia COVID19 X 2: negative Ventilator-dependent respiratory failure, Diabetes mellitus type 2, Hypertension, History of left BKA, Hypertension, anemia, Major depression, Pressure ulcer, Elevated transaminase, Hyperkalemia. Anemia R leg DVT s/p IVC filter Sacral osteomyelitis Severe anemia Acute renal failure ESRD Hypercapnic respiratory failure Hematuria Thrombocytopenia Diverticulosis Diarrhea, C. difficile negative RECOMMENDATION: Continue Vancomycin until 07/18 Continue Cefepime & Gentamicin inhaler Case was D/W RN Subjective ROS Limited/Unobtainable: Yes Constitutional: Denies: fever Allergies: Coded Allergies: No Known Allergies (Unverified , 06/13/20) Objective Last 24 Hour Vital Signs Date Time Temp Pulse Resp B/P (MAP) Pulse Ox O2 Delivery O2 Flow Rate FiO2 07/09/20 08:00 96.6 72 18 128/79 (95) 98 07/09/20 08:00 71 07/09/20 08:00 Mechanical Ventilator 07/09/20 08:00 40 07/09/20 07:10 79 24 40 07/09/20 04:02 74 07/09/20 04:00 Mechanical Ventilator 07/09/20 04:00 96.8 75 20 151/79 (103) 98 07/09/20 04:00 40 07/09/20 02:37 72 22 40 07/09/20 02:37 72 22 100 Mechanical Ventilator 40 07/09/20 00:07 70 07/09/20 00:00 40 07/09/20 00:00 Mechanical Ventilator 07/08/20 23:53 97.0 68 18 148/74 (98) 100 07/08/20 22:35 75 19 100 Mechanical Ventilator 40 100 22 40 07/08/20 20:00 97.2 72 20 153/80 (104) 96 07/08/20 20:00 40 07/08/20 20:00 Mechanical Ventilator 07/08/20 19:50 72 07/08/20 18:42 70 22 45 07/08/20 16:00 97.0 74 19 146/75 (98) 93 07/08/20 16:00 40 07/08/20 16:00 Mechanical Ventilator 07/08/20 16:00 74 07/08/20 15:10 74 19 45 07/08/20 12:00 72 07/08/20 12:00 97.3 74 20 151/78 (102) 97 07/08/20 12:00 40 07/08/20 12:00 Mechanical Ventilator 07/08/20 11:10 70 20 45 Height (Feet): 5 Height (Inches): 8.00 Weight (Pounds): 143 General Appearance: no acute distress HEENT: status post trach Respiratory/Chest: lungs clear, other - on ventilator FIO2 decreased to 40% Cardiovascular: normal rate Abdomen: soft, non tender - NG tube Extremities: no edema, other - Left BKA Skin: ulcers, other - stage 4 sacral Neurologic/Psychiatric: other - sleeping Laboratory Tests Test 07/08/20 12:22 07/08/20 17:02 07/08/20 22:43 07/09/20 03:10 POC Whole Blood Glucose 134 MG/DL (74-106) H 138 MG/DL (74-106) H Pending White Blood Count 9.8 K/UL (4.8-10.8) Red Blood Count 2.61 M/UL (4.70-6.10) L Hemoglobin 7.6 G/DL (14.2-18.0) L Hematocrit 23.0 % (42.0-52.0) L Mean Corpuscular Volume 88 FL (80-99) Mean Corpuscular Hemoglobin 29.3 PG (27.0-31.0) Mean Corpuscular Hemoglobin Concent 33.3 G/DL (32.0-36.0) Red Cell Distribution Width 17.0 % (11.6-14.8) H Platelet Count 185 K/UL (150-450) Mean Platelet Volume 8.6 FL (6.5-10.1) Neutrophils (%) (Auto) % (45.0-75.0) Lymphocytes (%) (Auto) % (20.0-45.0) Monocytes (%) (Auto) % (1.0-10.0) Eosinophils (%) (Auto) % (0.0-3.0) Basophils (%) (Auto) % (0.0-2.0) Sodium Level 131 MMOL/L (136-145) L Potassium Level 4.8 MMOL/L (3.5-5.1) Chloride Level 97 MMOL/L (98-107) L Carbon Dioxide Level 30 MMOL/L (21-32) Anion Gap 4 mmol/L (5-15) L Blood Urea Nitrogen 68 mg/dL (7-18) H Creatinine 3.8 MG/DL (0.55-1.30) H Estimat Glomerular Filtration Rate 20.2 mL/min (>60) Glucose Level 118 MG/DL (74-106) H Calcium Level 8.1 MG/DL (8.5-10.1) L Test 07/09/20 04:45 POC Whole Blood Glucose 124 MG/DL (74-106) H Current Medications Medications (Trade) Dose Ordered Sig/Maryjane Route PRN Reason Start Time Stop Time Status Last Admin Dose Admin Acetaminophen (Tylenol) 650 mg Q4H PRN GT Mild Pain (Pain Scale 1-3) 06/18/20 23:00 07/18/20 22:59 Acetaminophen (Tylenol) 650 mg Q4HR PRN GT FEVER 06/14/20 09:45 07/14/20 09:44 06/19/20 20:45 Aluminum Hydroxide (Amphojel) 1,920 mg Q6H GT 06/17/20 10:00 07/17/20 09:59 07/08/20 21:09 Ascorbic Acid (Vitamin C) 500 mg DAILY GT 07/01/20 09:00 07/31/20 08:59 07/09/20 08:15 Cefepime HCl 500 mg/Dextrose 55 ml @ 110 mls/hr Q24H IV 07/08/20 16:00 07/15/20 15:59 07/08/20 16:12 Chlorhexidine Gluconate (Inés-Hex 2%) 1 applic DAILY@2000 TOPIC 06/21/20 20:00 09/19/20 19:59 07/08/20 20:11 Dextrose (Dextrose 50%) 25 ml Q30M PRN IV Hypoglycemia 06/28/20 18:30 09/26/20 18:29 Dextrose (Dextrose 50%) 50 ml Q30M PRN IV Hypoglycemia 06/28/20 18:30 09/26/20 18:29 Epoetin Bonilla (Epoetin Bonilla(ESRD on dialysis)) 10,000 unit TUE-TUE-TUE SUBQ 07/02/20 21:00 09/16/20 20:59 07/07/20 20:47 Gentamicin Sulfate (Gentamicin vial) 300 mg Q12HR@ INH 07/07/20 22:00 07/14/20 21:59 07/08/20 22:00 Haloperidol Lactate (Haldol) 5 mg Q6H PRN IM Agitation 06/21/20 23:15 08/05/20 23:14 06/25/20 18:17 Insulin Aspart (NovoLOG) EVERY 6 HOURS SUBQ 06/29/20 00:00 09/27/20 00:00 07/08/20 05:28 Lansoprazole (Prevacid) 30 mg Q12HR GT 06/30/20 21:00 07/30/20 20:59 07/09/20 08:15 Levothyroxine Sodium (Synthroid) 88 mcg DAILY@0630 GT 07/03/20 06:30 08/02/20 06:29 07/09/20 05:33 Vancomycin HCl ([facility] pharmacy to dose) 1 ea DAILY PRN MISC Per rx protocol 06/27/20 11:30 07/18/20 23:59 Paul Amador MD Jul 09, 2020 10:28
[2020-07-09] MEDS: Gentamicin for inhalation INH SCH ×2 (10:35→22:32)
--- NOTE | 2020-07-09 10:55 | Pulmonology Progress Note ---
Subjective ROS Limited/Unobtainable: Yes Interval Events: FiO2 now 40%; Remains on vent. Constitutional: Denies: fever HEENT: Repors: no symptoms Respiratory: Reports: no symptoms Cardiovascular: Reports: no symptoms Gastrointestinal/Abdominal: Reports: diarrhea Genitourinary: Reports: no symptoms Psychiatric: Reports: other - off of restraint Allergies: Coded Allergies: No Known Allergies (Unverified , 06/13/20) All Systems: reviewed and negative except above Objective Last 24 Hour Vital Signs Date Time Temp Pulse Resp B/P (MAP) Pulse Ox O2 Delivery O2 Flow Rate FiO2 07/09/20 08:00 96.6 72 18 128/79 (95) 98 07/09/20 08:00 71 07/09/20 08:00 Mechanical Ventilator 07/09/20 08:00 40 07/09/20 07:10 79 24 40 07/09/20 04:02 74 07/09/20 04:00 Mechanical Ventilator 07/09/20 04:00 96.8 75 20 151/79 (103) 98 07/09/20 04:00 40 07/09/20 02:37 72 22 40 07/09/20 02:37 72 22 100 Mechanical Ventilator 40 07/09/20 00:07 70 07/09/20 00:00 40 07/09/20 00:00 Mechanical Ventilator 07/08/20 23:53 97.0 68 18 148/74 (98) 100 07/08/20 22:35 75 19 100 Mechanical Ventilator 40 100 22 40 07/08/20 20:00 97.2 72 20 153/80 (104) 96 07/08/20 20:00 40 07/08/20 20:00 Mechanical Ventilator 07/08/20 19:50 72 07/08/20 18:42 70 22 45 07/08/20 16:00 97.0 74 19 146/75 (98) 93 07/08/20 16:00 40 07/08/20 16:00 Mechanical Ventilator 07/08/20 16:00 74 07/08/20 15:10 74 19 45 07/08/20 12:00 72 07/08/20 12:00 97.3 74 20 151/78 (102) 97 07/08/20 12:00 40 07/08/20 12:00 Mechanical Ventilator 07/08/20 11:10 70 20 45 Intake and Output 07/08/20 07/09/20 19:00 07:00 Intake Total 655 ml 730 ml Output Total 200 ml Balance 655 ml 530 ml Free Water 50 ml 50 ml IV Total 55 ml Tube Feeding 550 ml 680 ml Output Urine Total 50 ml Stool Total 150 ml General Appearance: no acute distress HEENT: status post trach Respiratory: chest wall non-tender, decreased breath sounds Cardiovascular: normal rate Abdomen: normal bowel sounds Extremities: no cyanosis Laboratory Tests 07/08/20 12:22: POC Whole Blood Glucose 134H 07/08/20 17:02: POC Whole Blood Glucose 138H 07/08/20 22:43: POC Whole Blood Glucose [Pending] 07/09/20 03:10: White Blood Count 9.8, Red Blood Count 2.61L, Hemoglobin 7.6L, Hematocrit 23.0L, Mean Corpuscular Volume 88, Mean Corpuscular Hemoglobin 29.3, Mean Corpuscular Hemoglobin Concent 33.3, Red Cell Distribution Width 17.0H, Platelet Count 185, Mean Platelet Volume 8.6, Neutrophils (%) (Auto) , Lymphocytes (%) (Auto) , Monocytes (%) (Auto) , Eosinophils (%) (Auto) , Basophils (%) (Auto) , Sodium Level 131L, Potassium Level 4.8, Chloride Level 97L, Carbon Dioxide Level 30, Anion Gap 4L, Blood Urea Nitrogen 68H, Creatinine 3.8H, Estimat Glomerular Filtration Rate 20.2, Glucose Level 118H, Calcium Level 8.1L 07/09/20 04:45: POC Whole Blood Glucose 124H Current Medications Medications (Trade) Dose Ordered Sig/Maryjane Route PRN Reason Start Time Stop Time Status Last Admin Dose Admin Acetaminophen (Tylenol) 650 mg Q4H PRN GT Mild Pain (Pain Scale 1-3) 06/18/20 23:00 07/18/20 22:59 Acetaminophen (Tylenol) 650 mg Q4HR PRN GT FEVER 06/14/20 09:45 07/14/20 09:44 06/19/20 20:45 Aluminum Hydroxide (Amphojel) 1,920 mg Q6H GT 06/17/20 10:00 07/17/20 09:59 07/09/20 10:24 Ascorbic Acid (Vitamin C) 500 mg DAILY GT 07/01/20 09:00 07/31/20 08:59 07/09/20 08:15 Cefepime HCl 500 mg/Dextrose 55 ml @ 110 mls/hr Q24H IV 07/08/20 16:00 07/15/20 15:59 07/08/20 16:12 Chlorhexidine Gluconate (Inés-Hex 2%) 1 applic DAILY@1999 TOPIC 06/21/20 20:00 09/19/20 19:59 07/08/20 20:11 Dextrose (Dextrose 50%) 25 ml Q30M PRN IV Hypoglycemia 06/28/20 18:30 09/26/20 18:29 Dextrose (Dextrose 50%) 50 ml Q30M PRN IV Hypoglycemia 06/28/20 18:30 09/26/20 18:29 Epoetin Bonilla (Epoetin Bonilla(ESRD on dialysis)) 10,000 unit TUE-TUE-TUE SUBQ 07/02/20 21:00 09/16/20 20:59 07/07/20 20:47 Gentamicin Sulfate (Gentamicin vial) 300 mg Q12HR@ INH 07/07/20 22:00 07/14/20 21:59 07/09/20 10:35 Haloperidol Lactate (Haldol) 5 mg Q6H PRN IM Agitation 06/21/20 23:15 08/05/20 23:14 06/25/20 18:17 Insulin Aspart (NovoLOG) EVERY 6 HOURS SUBQ 06/29/20 00:00 09/27/20 00:00 07/08/20 05:28 Lansoprazole (Prevacid) 30 mg Q12HR GT 06/30/20 21:00 07/30/20 20:59 07/09/20 08:15 Levothyroxine Sodium (Synthroid) 88 mcg DAILY@0630 GT 07/03/20 06:30 08/02/20 06:29 07/09/20 05:33 Vancomycin HCl (Vanco pharmacy to dose) 1 ea DAILY PRN MISC Per rx protocol 06/27/20 11:30 07/18/20 23:59 Assessment/Plan Problems: (1) Acute respiratory failure Assessment/Plan IMPRESSION: 1. Chronic respiratory failure. 2. Hypoxemia. 3. Respiratory acidosis. 4. Anemia. 5. Leukocytosis. 6. DVT 7. S/p code blue 06/19/20 DISCUSSION: The patient's x-ray is markedly abnormal with bilateral infiltrates. I suspect he has pulmonary fibrosis. Latest CXR is unchanged to slightly improved COVID 19 pcr and antigen both negative No anticoagulation for DVT due to anemia S/p IVC filter placement Continue assist-control mechanical ventilation; currently FiO2 45%; SaO2 100%, broad-spectrum antibiotics. Transfusion as needed. Will continue PEEP to 8; S/p HD Will decrease FiO2 as tolerated S/p permacath Await placement I will follow carefully. Hugo Carl Omar Syed MD Jul 09, 2020 10:55
--- NOTE | 2020-07-09 11:56 | NUR ---
PUTAWAY DRIVER NOTE CALL RECEIVED FROM CORINNE AT [facility] [phone] REQUESTING ADDITIONAL CLINICAL INFORMATION TO BE FAXED TO [phone]. REQUESTED INFO SENT REQUESTED. Addendum: 07/09/20 at 1258 by DANIELLE MUELLER LVN CORRECTION: ABOVE PHONE NUMBER TRANSPOSED. S/B [phone] FOLLOW UP CALL MADE TO [facility] TO CONFIRM RECEIPT OF CLINICALS. NO ANSWER FOR CORINNE. LEFT REQUESTING CALL BACK. WILL FOLLOW UP.
--- NOTE | 2020-07-09 11:58 | NUR ---
CASE MANAGEMENT:REVIEW SI; SEPSIS. PNA. ESRD~NEW HD. RESP FAILURE~TRACH/VENT DEPENDENT. 96.6 79 22 151/79 98% TRACH/VENT AC 18 TV 500 PEEP 5 FIO2 40% H/H 7.6/23.0 NA 131 BUN 68 CR 3.8 IS;CEFEPIME IV Q24 GENTAMICIN INH Q12 EPOETIN ALEXX SQ M-W- PREVACID GT Q12 KALYN STATUS DCP;SNF PLACEMENT ACCEPTED AT [facility]
[2020-07-09 12:00] VITALS: BP 157/82
--- NOTE | 2020-07-09 13:37 | Nephrology Progress Note ---
Assessment/Plan Problem List: (1) KERRI (acute kidney injury) (2) Acute respiratory failure (3) Chronic respiratory failure (4) Anemia (5) Hyperkalemia Assessment Acute on chronic renal failure Anemia Respiratory failure acute on chronic Respiratory acidosis and hypoxia Hyperkalemia Plan July 09: Due for dialysis today. Labs reviewed. Medication list reviewed. Continue same treatment plan. July 08: Patient was dialyzed yesterday. Today's labs reviewed. Electrolytes and renal parameters stable. Next dialysis tomorrow. Continue per consultants. July 07: Labs reviewed. Dialysis today. Abnormal electrolytes will be. Discussed with RN. Resolved after dialysis. Continue per consultants July 06: Labs reviewed. Dialyzed July 04. Due for dialysis July 07. Continue per consultants. July 05: Labs reviewed. Dialyzed yesterday. Electrolytes and renal parameters stable. Continue per consultants. Continue dialysis as needed. July 04: Labs reviewed. Due for dialysis today. Continue to monitor electrolytes and hemoglobin hematocrit. Continue per consultants. July 03: Lab reviewed. Will defer dialysis for July 04. Some blood oozing from the catheter site. General surgery to be informed. Electrolytes stable. Continue as is. July 02: Labs reviewed. Due for dialysis tomorrow. Hemoglobin higher. Stable electrolytes. Continue per consultants. July 01: Labs reviewed. Dialyzed yesterday. Patient has a permacath. Continue per consultants. Worsening anemia noted, deferred to tower erector. June 30: Labs reviewed. Due for dialysis today. Patient appears to be needing hemodialysis for sometimes incoming future. Will arrange for placement of a tunneled catheter. Continue per consultants. Anemia management per tower erector. June 29: Labs reviewed. Hemoglobin is higher. Next hemodialysis tomorrow June 30. Continue per consultants. June 28: Labs reviewed. Last dialyzed June 26. Hemoglobin remains low. Defer transfusion and work-up to tower erector. Continue to follow-up renal parameters. June 27: Labs reviewed. Dialyzed yesterday. Hemoglobin low. Due for transfusion. Continue to monitor renal parameters and hemoglobin and hematocrit. June 26: Labs reviewed. Due for dialysis today. Continue per consultants. Continue to monitor liver enzymes. June 25: Labs reviewed. Will dialyze tomorrow. Continue per consultants. Check liver function enzymes. June 24: Dialyzed yesterday. Labs reviewed. Medication list reviewed. Liver enzymes remains elevated. Continue to monitor electrolytes renal parameters and LFTs. Hemodialysis in a.m. if needed. June 23: Patient will be dialyzed today again. Labs reviewed. Serum creatinine higher. Elevated liver enzymes persist. Patient full code. Continue per consultants. June 22: Patient dialyzed yesterday. Labs reviewed. Liver function tests and enzymes are elevated. Continue to monitor renal parameters and LFTs. Continue per consultants. Patient full code. June 21: Patient due for dialysis today. Labs and medication list reviewed. Discussed with RN. Continue to monitor renal parameters. June 20: Patient had an episode of bradycardia last night. Serum creatinine rising. Patient continues to have respiratory acidosis. Discussed with MAX Bond. Will order non tunneled dialysis catheter placement for initiation of dialysis treatment due to acute renal failure. Patient remains full code. I favor comfort care if bioethics consultation is sought and physicians on the team agreeable. June 19: No CHEM panel today. Low hemoglobin as of yesterday's lab results. Anemia management per Dr. Cueva. Continue to monitor renal parameters. June 18: Labs are reviewed. Hemoglobin lower. Creatinine higher. ABG not done yet. Patient full code. Continue per consultants. June 17: Labs reviewed. Hemoglobin low. Creatinine up to 3. Phosphorus levels elevated. Will start Amphojel via GT tube as a phosphorus binder. Monitor renal parameters. Check ABG. Continue per consultants. June 16: Labs reviewed. Serum creatinine mariana to 2.6. Abnormal electrolytes now normalized. Continue to monitor renal parameters and avoid nephrotoxic's. Continue to adjust pulmonary status as possible. June 15: ABG pH of 7.1. 2D echo suggestive of ejection fraction of 50%. Labs reviewed. Serum creatinine mariana. Will hold IV Lasix. Will give Kayexalate for high potassium and 1 amp of sodium bicarb. Albumin IV bolus given. Continue per consultants. Continue to monitor renal parameters. Kidney ultrasound ordered. June 14: As follow Pulmonary evaluation Sparrow catheter Hold IV fluid IV fluid, until 2D echo results available Kayexalate for high potassium IV Protonix 2D echocardiogram Anemia work-up More labs ordered Subjective ROS Limited/Unobtainable: Yes Objective Objective Last 24 Hour Vital Signs Date Time Temp Pulse Resp B/P (MAP) Pulse Ox O2 Delivery O2 Flow Rate FiO2 07/09/20 12:00 Mechanical Ventilator 07/09/20 12:00 73 12/2/20 12:00 40 07/09/20 12:00 96.6 75 18 157/82 (107) 94 07/09/20 08:00 96.6 72 18 128/79 (95) 98 07/09/20 08:00 71 07/09/20 08:00 Mechanical Ventilator 07/09/20 08:00 40 07/09/20 07:10 79 24 40 07/09/20 04:02 74 07/09/20 04:00 Mechanical Ventilator 07/09/20 04:00 96.8 75 20 151/79 (103) 98 07/09/20 04:00 40 07/09/20 02:37 72 22 40 07/09/20 02:37 72 22 100 Mechanical Ventilator 40 07/09/20 00:07 70 07/09/20 00:00 40 07/09/20 00:00 Mechanical Ventilator 07/08/20 23:53 97.0 68 18 148/74 (98) 100 07/08/20 22:35 75 19 100 Mechanical Ventilator 40 100 22 40 07/08/20 20:00 97.2 72 20 153/80 (104) 96 07/08/20 20:00 40 07/08/20 20:00 Mechanical Ventilator 07/08/20 19:50 72 07/08/20 18:42 70 22 45 07/08/20 16:00 97.0 74 19 146/75 (98) 93 07/08/20 16:00 40 07/08/20 16:00 Mechanical Ventilator 07/08/20 16:00 74 07/08/20 15:10 74 19 45 Intake and Output 07/08/20 07/09/20 19:00 07:00 Intake Total 655 ml 730 ml Output Total 200 ml Balance 655 ml 530 ml Free Water 50 ml 50 ml IV Total 55 ml Tube Feeding 550 ml 680 ml Output Urine Total 50 ml Stool Total 150 ml Current Medications Medications (Trade) Dose Ordered Sig/Maryjane Route PRN Reason Start Time Stop Time Status Last Admin Dose Admin Acetaminophen (Tylenol) 650 mg Q4H PRN GT Mild Pain (Pain Scale 1-3) 06/18/20 23:00 07/18/20 22:59 Acetaminophen (Tylenol) 650 mg Q4HR PRN GT FEVER 06/14/20 09:45 07/14/20 09:44 06/19/20 20:45 Aluminum Hydroxide (Amphojel) 1,920 mg Q6H GT 06/17/20 10:00 07/17/20 09:59 07/09/20 10:24 Ascorbic Acid (Vitamin C) 500 mg DAILY GT 07/01/20 09:00 07/31/20 08:59 07/09/20 08:15 Cefepime HCl 500 mg/Dextrose 55 ml @ 110 mls/hr Q24H IV 07/08/20 16:00 07/15/20 15:59 07/08/20 16:12 Chlorhexidine Gluconate (Inés-Hex 2%) 1 applic DAILY@1999 TOPIC 06/21/20 20:00 09/19/20 19:59 07/08/20 20:11 Dextrose (Dextrose 50%) 25 ml Q30M PRN IV Hypoglycemia 06/28/20 18:30 09/26/20 18:29 Dextrose (Dextrose 50%) 50 ml Q30M PRN IV Hypoglycemia 06/28/20 18:30 09/26/20 18:29 Epoetin Bonilla (Epoetin Bonilla(ESRD on dialysis)) 10,000 unit TUE-TUE-TUE SUBQ 07/02/20 21:00 09/16/20 20:59 07/07/20 20:47 Gentamicin Sulfate (Gentamicin vial) 300 mg Q12HR@ INH 07/07/20 22:00 07/14/20 21:59 07/09/20 10:35 Haloperidol Lactate (Haldol) 5 mg Q6H PRN IM Agitation 06/21/20 23:15 08/05/20 23:14 06/25/20 18:17 Insulin Aspart (NovoLOG) EVERY 6 HOURS SUBQ 06/29/20 00:00 09/27/20 00:00 07/09/20 12:06 Lansoprazole (Prevacid) 30 mg Q12HR GT 06/30/20 21:00 07/30/20 20:59 07/09/20 08:15 Levothyroxine Sodium (Synthroid) 88 mcg DAILY@06 GT 07/03/20 06:30 08/02/20 06:29 07/09/20 05:33 Vancomycin HCl (Vanco pharmacy to dose) 1 ea DAILY PRN MISC Per rx protocol 06/27/20 11:30 07/18/20 23:59 Laboratory Tests 07/08/20 17:02: POC Whole Blood Glucose 138H 07/08/20 22:43: POC Whole Blood Glucose [Pending] 07/09/20 03:10: White Blood Count 9.8, Red Blood Count 2.61L, Hemoglobin 7.6L, Hematocrit 23.0L, Mean Corpuscular Volume 88, Mean Corpuscular Hemoglobin 29.3, Mean Corpuscular Hemoglobin Concent 33.3, Red Cell Distribution Width 17.0H, Platelet Count 185, Mean Platelet Volume 8.6, Neutrophils (%) (Auto) , Lymphocytes (%) (Auto) , Monocytes (%) (Auto) , Eosinophils (%) (Auto) , Basophils (%) (Auto) , Sodium Level 131L, Potassium Level 4.8, Chloride Level 97L, Carbon Dioxide Level 30, Anion Gap 4L, Blood Urea Nitrogen 68H, Creatinine 3.8H, Estimat Glomerular Filtration Rate 20.2, Glucose Level 118H, Calcium Level 8.1L 07/09/20 04:45: POC Whole Blood Glucose 124H 07/09/20 12:03: POC Whole Blood Glucose 160H Height (Feet): 5 Height (Inches): 8.00 Weight (Pounds): 143 General Appearance: no apparent distress, lethargic EENT: other - Trach to vent Cardiovascular: normal rate Respiratory/Chest: decreased breath sounds Abdomen: distended Leonidas Honeycutt MD Jul 09, 2020 13:37
--- NOTE | 2020-07-09 14:42 | Cardiac Electrophysiology PN ---
Assessment/Plan Assessment/Plan 1. Vent-dependent respirator failure. S/P tracheostomy. On 50% Fio2 Chest x-ray extensive bilateral pneumonia or ARDS. Off isolation EF 50%. Ruled out for DC On iv Abx 2. Sinus Tachycardia, likely due to respiratory failure and sepsis 3. Right femoral vein DVT. S/P IVC filter 06/18 4. Dysphagia, status post PEG placement. 5. Renal failure. S/P Right IJ Iron and on HD by Dr. Honeycutt. 6. Severe anemia, S/P multiple PRBCs for hematuria 7. High LFTs, s/p CT abdomen and pelvis and HIDA FU Dr. Stringer 8. Transient bradycardia, resolved DW RN Subjective Subjective On the Vent off isolation. On 45% Fio2 and PEEP 5. S/P IVC filter S/P Right IJ Iron and first HD 06/21/20 Had [employer] as HR dropped to 30 at 4 am 06/25/20 Got PRBC 06/27 and 06/28 S/P HD and PRBC 07/07/20. HD pending today Objective Last 24 Hour Vital Signs Date Time Temp Pulse Resp B/P (MAP) Pulse Ox O2 Delivery O2 Flow Rate FiO2 07/09/20 12:00 Mechanical Ventilator 07/09/20 12:00 73 07/09/20 12:00 40 07/09/20 12:00 96.6 75 18 157/82 (107) 94 07/09/20 08:00 96.6 72 18 128/79 (95) 98 07/09/20 08:00 71 07/09/20 08:00 Mechanical Ventilator 07/09/20 08:00 40 07/09/20 07:10 79 24 40 07/09/20 04:02 74 07/09/20 04:00 Mechanical Ventilator 07/09/20 04:00 96.8 75 20 151/79 (103) 98 07/09/20 04:00 40 07/09/20 02:37 72 22 40 07/09/20 02:37 72 22 100 Mechanical Ventilator 40 07/09/20 00:07 70 07/09/20 00:00 40 07/09/20 00:00 Mechanical Ventilator 07/08/20 23:53 97.0 68 18 148/74 (98) 100 07/08/20 22:35 75 19 100 Mechanical Ventilator 40 100 22 40 07/08/20 20:00 97.2 72 20 153/80 (104) 96 07/08/20 20:00 40 07/08/20 20:00 Mechanical Ventilator 07/08/20 19:50 72 07/08/20 18:42 70 22 45 07/08/20 16:00 97.0 74 19 146/75 (98) 93 07/08/20 16:00 40 07/08/20 16:00 Mechanical Ventilator 07/08/20 16:00 74 07/08/20 15:10 74 19 45 Intake and Output 07/08/20 07/09/20 19:00 07:00 Intake Total 655 ml 730 ml Output Total 200 ml Balance 655 ml 530 ml Free Water 50 ml 50 ml IV Total 55 ml Tube Feeding 550 ml 680 ml Output Urine Total 50 ml Stool Total 150 ml Laboratory Tests Test 07/08/20 17:02 07/08/20 22:43 07/09/20 03:10 07/09/20 04:45 POC Whole Blood Glucose 138 MG/DL (74-106) H Pending 124 MG/DL (74-106) H White Blood Count 9.8 K/UL (4.8-10.8) Red Blood Count 2.61 M/UL (4.70-6.10) L Hemoglobin 7.6 G/DL (14.2-18.0) L Hematocrit 23.0 % (42.0-52.0) L Mean Corpuscular Volume 88 FL (80-99) Mean Corpuscular Hemoglobin 29.3 PG (27.0-31.0) Mean Corpuscular Hemoglobin Concent 33.3 G/DL (32.0-36.0) Red Cell Distribution Width 17.0 % (11.6-14.8) H Platelet Count 185 K/UL (150-450) Mean Platelet Volume 8.6 FL (6.5-10.1) Neutrophils (%) (Auto) % (45.0-75.0) Lymphocytes (%) (Auto) % (20.0-45.0) Monocytes (%) (Auto) % (1.0-10.0) Eosinophils (%) (Auto) % (0.0-3.0) Basophils (%) (Auto) % (0.0-2.0) Sodium Level 131 MMOL/L (136-145) L Potassium Level 4.8 MMOL/L (3.5-5.1) Chloride Level 97 MMOL/L (98-107) L Carbon Dioxide Level 30 MMOL/L (21-32) Anion Gap 4 mmol/L (5-15) L Blood Urea Nitrogen 68 mg/dL (7-18) H Creatinine 3.8 MG/DL (0.55-1.30) H Estimat Glomerular Filtration Rate 20.2 mL/min (>60) Glucose Level 118 MG/DL (74-106) H Calcium Level 8.1 MG/DL (8.5-10.1) L Test 07/09/20 12:03 POC Whole Blood Glucose 160 MG/DL (74-106) H Objective HEAD AND NECK: Status post tracheostomy. Right IJ Iron in place LUNGS: Coarse rhonchi and basilar rales. CARDIOVASCULAR: Irregular S1 and S2 with no gallop. ABDOMEN: Soft. Status post G-tube. EXTREMITIES: No pitting edema. Lance Mcguire MD Jul 09, 2020 14:41
--- NOTE | 2020-07-09 15:28 | NUR ---
INSURANCE CLINICALS/REVIEW (07/08-07/09) FAXED TO [facility] [phone] PH [phone] EXT [id number]
[2020-07-09 16:00] VITALS: BP 157/79
--- NOTE | 2020-07-09 17:50 | NUR ---
*-*DISCHARGE PLANNING*-* PLACED MULTIPLE CALLS TO [facility], NO ANSWER LEFT VOICE MESSAGE WITH CORINNE P:[phone].
[2020-07-09] MEDS: Cefepime HCl 500 MG in D5W 55 ML IV SCH (18:55)
--- NOTE | 2020-07-09 18:55 | NUR ---
RESPIRATORY NOTE: Received pt on AC VC 18, 500VT, 40%, PEEP +5. Pt is trach-dependent w/ a cuffed, Shiley 8 tube. Pt is awake, responds to stimuli. B/S geovani. rhonchi, sxn moderate amounts of thick, bloody secretions. Vent plugged into red outlet, ambubag at bedside. Pt in no apparent distress at this time. Will continue plan of care.
--- NOTE | 2020-07-09 18:57 | Surgery Progress Note ---
Surgery Progress Note Subjective Symptoms: improved, tolerating diet, BM Objective Last 24 Hour Vital Signs Date Time Temp Pulse Resp B/P (MAP) Pulse Ox O2 Delivery O2 Flow Rate FiO2 07/09/20 18:52 76 18 40 07/09/20 16:00 40 07/09/20 16:00 97.0 76 27 157/79 (105) 97 07/09/20 16:00 Mechanical Ventilator 07/09/20 15:14 75 07/09/20 15:00 89 18 40 07/09/20 12:00 Mechanical Ventilator 07/09/20 12:00 73 07/09/20 12:00 40 07/09/20 12:00 96.6 75 18 157/82 (107) 94 07/09/20 10:50 77 19 100 Mechanical Ventilator 40 80 20 40 07/09/20 08:00 96.6 72 18 128/79 (95) 98 07/09/20 08:00 71 07/09/20 08:00 Mechanical Ventilator 07/09/20 08:00 40 07/09/20 07:10 79 24 40 07/09/20 04:02 74 07/09/20 04:00 Mechanical Ventilator 07/09/20 04:00 96.8 75 20 151/79 (103) 98 07/09/20 04:00 40 07/09/20 02:37 72 22 40 07/09/20 02:37 72 22 100 Mechanical Ventilator 40 07/09/20 00:07 70 07/09/20 00:00 40 07/09/20 00:00 Mechanical Ventilator 07/08/20 23:53 97.0 68 18 148/74 (98) 100 07/08/20 22:35 75 19 100 Mechanical Ventilator 40 100 22 40 07/08/20 20:00 97.2 72 20 153/80 (104) 96 07/08/20 20:00 40 07/08/20 20:00 Mechanical Ventilator 07/08/20 19:50 72 I&O Intake and Output 07/08/20 07/09/20 19:00 07:00 Intake Total 655 ml 730 ml Output Total 200 ml Balance 655 ml 530 ml Free Water 50 ml 50 ml IV Total 55 ml Tube Feeding 550 ml 680 ml Output Urine Total 50 ml Stool Total 150 ml Dressing: saturated Cardiovascular: RSR Respiratory: decreased breath sounds Abdomen: non-tender, present bowel sounds Extremities: no edema, no tenderness, no cyanosis Laboratory Tests Test 07/08/20 22:43 07/09/20 03:10 07/09/20 04:45 07/09/20 12:03 POC Whole Blood Glucose Pending 124 MG/DL (74-106) H 160 MG/DL (74-106) H White Blood Count 9.8 K/UL (4.8-10.8) Red Blood Count 2.61 M/UL (4.70-6.10) L Hemoglobin 7.6 G/DL (14.2-18.0) L Hematocrit 23.0 % (42.0-52.0) L Mean Corpuscular Volume 88 FL (80-99) Mean Corpuscular Hemoglobin 29.3 PG (27.0-31.0) Mean Corpuscular Hemoglobin Concent 33.3 G/DL (32.0-36.0) Red Cell Distribution Width 17.0 % (11.6-14.8) H Platelet Count 185 K/UL (150-450) Mean Platelet Volume 8.6 FL (6.5-10.1) Neutrophils (%) (Auto) % (45.0-75.0) Lymphocytes (%) (Auto) % (20.0-45.0) Monocytes (%) (Auto) % (1.0-10.0) Eosinophils (%) (Auto) % (0.0-3.0) Basophils (%) (Auto) % (0.0-2.0) Sodium Level 131 MMOL/L (136-145) L Potassium Level 4.8 MMOL/L (3.5-5.1) Chloride Level 97 MMOL/L (98-107) L Carbon Dioxide Level 30 MMOL/L (21-32) Anion Gap 4 mmol/L (5-15) L Blood Urea Nitrogen 68 mg/dL (7-18) H Creatinine 3.8 MG/DL (0.55-1.30) H Estimat Glomerular Filtration Rate 20.2 mL/min (>60) Glucose Level 118 MG/DL (74-106) H Calcium Level 8.1 MG/DL (8.5-10.1) L Test 07/09/20 17:33 POC Whole Blood Glucose 118 MG/DL (74-106) H Plan Problems: (1) Leukocytosis Assessment & Plan: 54-year-old male multiple comorbidities admitted for abnormal chest x-ray potentially pneumonia leukocytosis abnormal labs. Patient identified to have a prior left BKA surgical sutures still in place as well as a surgical sacral wound with sutures in place. Considerations of dehiscence being identified and potential etiology of infection. After evaluation unlikely source of infection though the sacral wound was looked to be dehiscing at the inferior aspect. No acute surgical mention at this time We will discussed care plan with PCP Recommend follow-up with initial surgeon considerations of removal of surgical sutures Care plan initiated worsening lft's US ordered ? shayla monitor for bleeding from right chest wall cath change dressings Extensive airspace consolidations at the lung bases consistent with severe multifocal infiltrate. Associated, large bilateral pleural effusions. Evaluation of the abdominal viscera is markedly suboptimal due to poor CT technique and lack of intravenous contrast. No definite hepatic lesion. No definite cholelithiasis. Mild colon wall thickening. The spleen, pancreas, and adrenal glands are not visualized well enough reliable assessment. No definite hydronephrosis. The kidneys are hyperdense, correlate for medical renal disease. No nephrolithiasis. Sparrow catheter within a decompressed urinary bladder. Moderate diverticulosis, without acute diverticulitis. No small bowel obstruction. PEG tube presumably within the stomach. Atherosclerotic calcifications of the aorta. Low-attenuation of the intravascular blood pool, correlate for anemia. IVC filter, incidentally noted. Air within the subcutaneous fat overlying the sacrum with skin thickening, correlate with physical exam for sacral decubitus ulcer. Degenerative changes of the spine. Bilateral pars defects at L5 without anterolisthesis of L5 on S1. IMPRESSION: Extensive airspace consolidations at the lung bases consistent with severe multifocal infiltrate. Associated, large bilateral pleural effusions. Evaluation of the abdominal viscera is markedly suboptimal due to poor CT technique and lack of intravenous contrast. Moderate diverticulosis, without acute diverticulitis. No small bowel obstruction. PEG tube presumably within the stomach. Note, if there is suspicion for colitis consider repeat scan with improved CT technique/intravenous contrast. Mild gallbladder wall thickening without definite evidence of cholelithiasis. Air within the subcutaneous fat overlying the sacrum with skin thickening, correlate with physical exam for sacral decubitus ulcer. Bilateral pars defects at L5. The kidneys are hyperdense, correlate for medical renal disease.. There is prompt uptake within the liver with washout of radiotracer from the liver on subsequent imaging. There is excretion into the biliary ducts. Gallbladder activity is present in a timely fashion indicating patency of the cystic duct. Very scant bowel activity is demonstrated concerning for common bile duct obstruction or sphincter dysfunction. IMPRESSION: No evidence to suggest cholecystitis. Gallbladder activity is present in a timely fashion indicating patency of the cystic duct. Very little radiotracer noted in the small bowel. Correlate with LFTs as a degree of common bile duct obstruction or sphincter dysfunction not excluded. Consider further evaluation with MRCP. (2) Surgical wound dehiscence Assessment & Plan: Patient identified to have a left BKA surgical sutures in place flap looks like it is taken well no signs of infection at this time no signs of seroma hematoma or drainage. Unknown exact length or duration of potential prior left BKA and until then recommend leaving sutures in place as it may be too early though it does look well-healed. If able to obtain prior records we will be happy to remove sutures otherwise will need follow-up with primary surgeon furthermore patient identified to have a surgical wound in the sacral area seems he probably potentially had a stage IV sacral decubitus ulcer that had debridement and primary closure. Fortunately. Sutures are still in place and it looks like the inferior aspect may be slowly dehiscing. There is no significant drainage no foul odor no signs of active infection unknown if bone was palpable prior. Can consider removing surgical sutures but again would recommend obtaining prior records of possible prior to doing so. Also recommend following up with primary surgeon as this may need ongoing continued care. Will follow with recommendations and as information is available. Continue current care plan. Wash wounds daily with normal saline. Apply skin protectant Optifoam dressing. Turn every 2 hours. Offload pressure with pillows and air mattress. Nutritional optimization. Worsening leukocytosis. Patient continues to have dehiscence of the prior primarily closed sacral decubitus ulcer. The sutures are was nearly torn out and the wound is opening and saturating with stool with bowel movements now has rectal tube. Unfortunately I see significant concern given dehiscence and therefore sutures were cut at the bedside and wound immediately opened under some tension. Underlying Vicryl sutures identified. There is some backbleeding some granulation tissue but definitely no take or closure of the stage IV sacral decubitus ulcer that was identified. Nonexcisional debridement done with gauze and jorge layer of slough and biofilm was removed wound was cleaned packing dressings applied. No abscess no purulent drainage unlikely etiology of infection. (3) History of left below knee amputation (4) Malnutrition Assessment & Plan: DAILY ESTIMATED NEEDS: Needs based on Wound, critical care, underweight/ 55.5kg 25-33 (25-35 w/ HD) kcals/kg 7375-1230 (2251-9026) total kcals 1.25-2 g protein/kg 69-111 g total protein 25-30 mL/kg 5334-3761 total fluid mLs NUTRITION DIAGNOSIS: * Swallowing difficulty R/T respiratory status as evidenced by pt is trach/vent dep, PEG dep. CURRENT TF: Nepro @ 40ml/hr x24 hrs ENTERAL NUTRITION RECOMMENDATIONS: Nepro @ 40ml/hr x 24 hrs to provide 960ml, 1728kcal, 78g prot, 698ml free water * Maintain current TF * HOB over 30 degrees/ water flush per MD ADDITIONAL RECOMMENDATIONS: * Per SNF: HT=69" AL=170icu -> rec daily calibrated bedscale wt * Monitor lytes: elev K-> now wnl, phos now low * Wound healing: RANDY BID + Nephrovite 1 tab qdaily * Monitor for bm, last bm 06/19, now 06/24 * W/ HD rec to add Prosource 1 pack qdaily for added 11g pro/day. (5) Anemia (6) KERRI (acute kidney injury) (7) Acute respiratory failure (8) Hyperkalemia (9) Anemia (10) Abnormal laboratory test result (11) Chronic respiratory failure (12) Hyperglycemia (13) Hypothyroidism Azar Mares Jul 09, 2020 18:56
--- NOTE | 2020-07-09 19:12 | NUR ---
NURSE NOTES: Received report from Juana Rn and Humble Rn, pt. in bed awake, appears to be A/O X's 3- able to follow simple commands, pt. completing Hemodialyses appears to have tolerated well- 1L out. no signs or symptoms of acute cardiac or respiratory distress noted, bed alarm on, side rails up x's 3 and safety brakes engaged, call light within easy reach, pt. is SR on monitor, appears to be resting comfortably in bed, pt. appears to be tolerating current vent settings well- AC 18, TV 500, Fio2 at 40% and peep of 5- no distress noted, pt. has G tube feeding running Vital AF at 70cc/hr- no residual noted, rectal tube and Sparrow both draining to gravity, aspiration and skin precautions observed, pt. has RIJ Perma cath intact, Right hand 22G IV intact and patent- safety measures continued, will continue with plan of care.
[2020-07-09 20:00] VITALS: BP 152/77
[2020-07-09] MEDS: Epoetin Alfa-EPBX(ESRD on dialysis)10,000 unit/ml vial SUBQ SCH (20:23)
[2020-07-09] MEDS: Dyna-Hex 2% Top Sol 2oz TOPIC SCH (20:24)
--- NOTE | 2020-07-09 21:19 | General Progress Note ---
Subjective ROS Limited/Unobtainable: Yes Allergies: Coded Allergies: No Known Allergies (Unverified , 06/13/20) Objective Last 24 Hour Vital Signs Date Time Temp Pulse Resp B/P (MAP) Pulse Ox O2 Delivery O2 Flow Rate FiO2 07/09/20 20:00 97.5 81 22 152/77 (102) 97 07/09/20 20:00 Mechanical Ventilator 07/09/20 20:00 40 07/09/20 19:04 76 07/09/20 18:52 76 18 40 07/09/20 16:00 40 07/09/20 16:00 97.0 76 27 157/79 (105) 97 07/09/20 16:00 Mechanical Ventilator 07/09/20 15:14 75 07/09/20 15:00 89 18 40 07/09/20 12:00 Mechanical Ventilator 07/09/20 12:00 73 07/09/20 12:00 40 07/09/20 12:00 96.6 75 18 157/82 (107) 94 07/09/20 10:50 77 19 100 Mechanical Ventilator 40 80 20 40 07/09/20 08:00 96.6 72 18 128/79 (95) 98 07/09/20 08:00 71 07/09/20 08:00 Mechanical Ventilator 07/09/20 08:00 40 07/09/20 07:10 79 24 40 07/09/20 04:02 74 07/09/20 04:00 Mechanical Ventilator 07/09/20 04:00 96.8 75 20 151/79 (103) 98 07/09/20 04:00 40 07/09/20 02:37 72 22 40 07/09/20 02:37 72 22 100 Mechanical Ventilator 40 07/09/20 00:07 70 07/09/20 00:00 40 07/09/20 00:00 Mechanical Ventilator 07/08/20 23:53 97.0 68 18 148/74 (98) 100 07/08/20 22:35 75 19 100 Mechanical Ventilator 40 100 22 40 Intake and Output 07/08/20 07/09/20 19:00 07:00 Intake Total 655 ml 730 ml Output Total 200 ml Balance 655 ml 530 ml Free Water 50 ml 50 ml IV Total 55 ml Tube Feeding 550 ml 680 ml Output Urine Total 50 ml Stool Total 150 ml Laboratory Tests 07/08/20 22:43: POC Whole Blood Glucose [Pending] 07/09/20 03:10: White Blood Count 9.8, Red Blood Count 2.61L, Hemoglobin 7.6L, Hematocrit 23.0L, Mean Corpuscular Volume 88, Mean Corpuscular Hemoglobin 29.3, Mean Corpuscular Hemoglobin Concent 33.3, Red Cell Distribution Width 17.0H, Platelet Count 185, Mean Platelet Volume 8.6, Neutrophils (%) (Auto) , Lymphocytes (%) (Auto) , Monocytes (%) (Auto) , Eosinophils (%) (Auto) , Basophils (%) (Auto) , Sodium Level 131L, Potassium Level 4.8, Chloride Level 97L, Carbon Dioxide Level 30, Anion Gap 4L, Blood Urea Nitrogen 68H, Creatinine 3.8H, Estimat Glomerular Filtration Rate 20.2, Glucose Level 118H, Calcium Level 8.1L 07/09/20 04:45: POC Whole Blood Glucose 124H 07/09/20 12:03: POC Whole Blood Glucose 160H 07/09/20 17:33: POC Whole Blood Glucose 118H Height (Feet): 5 Height (Inches): 8.00 Weight (Pounds): 143 Assessment/Plan Problem List: (1) Anemia ICD Codes: D64.9 - Anemia, unspecified SNOMED: 646275465 (2) KERRI (acute kidney injury) ICD Codes: N17.9 - Acute kidney failure, unspecified SNOMED: 1618140, 86588545 (3) Acute respiratory failure ICD Codes: J96.00 - Acute respiratory failure, unspecified whether with hypoxia or hypercapnia SNOMED: 05664129 Qualifiers: Qualified Codes: J96.02 - Acute respiratory failure with hypercapnia (4) Hyperkalemia ICD Codes: E87.5 - Hyperkalemia SNOMED: 74808886 (5) Abnormal laboratory test result ICD Codes: R89.9 - Unspecified abnormal finding in specimens from other organs, systems and tissues SNOMED: 752663868 (6) Anemia ICD Codes: D64.9 - Anemia, unspecified SNOMED: 184301330 Status: progressing Assessment/Plan: trach and peg esrd getting hd open dehiscence sacral wound anemia low hb] s/p pulmonary edema pvc s/p acute mi Neida Apple MD Jul 09, 2020 21:19
--- NOTE | 2020-07-09 21:27 | General Progress Note ---
Subjective Allergies: Coded Allergies: No Known Allergies (Unverified , 06/13/20) Subjective above noted stools liquid, in rectal tube brown - small volume tolerating TF LFT still elevated but slowly declining all liver serologic w/u negative RD eval noted Albumin low Objective Last 24 Hour Vital Signs Date Time Temp Pulse Resp B/P (MAP) Pulse Ox O2 Delivery O2 Flow Rate FiO2 07/09/20 20:00 97.5 81 22 152/77 (102) 97 07/09/20 20:00 Mechanical Ventilator 07/09/20 20:00 40 07/09/20 19:04 76 07/09/20 18:52 76 18 40 07/09/20 16:00 40 07/09/20 16:00 97.0 76 27 157/79 (105) 97 07/09/20 16:00 Mechanical Ventilator 07/09/20 15:14 75 07/09/20 15:00 89 18 40 07/09/20 12:00 Mechanical Ventilator 07/09/20 12:00 73 07/09/20 12:00 40 07/09/20 12:00 96.6 75 18 157/82 (107) 94 07/09/20 10:50 77 19 100 Mechanical Ventilator 40 80 20 40 07/09/20 08:00 96.6 72 18 128/79 (95) 98 07/09/20 08:00 71 07/09/20 08:00 Mechanical Ventilator 07/09/20 08:00 40 07/09/20 07:10 79 24 40 07/09/20 04:02 74 07/09/20 04:00 Mechanical Ventilator 07/09/20 04:00 96.8 75 20 151/79 (103) 98 07/09/20 04:00 40 07/09/20 02:37 72 22 40 07/09/20 02:37 72 22 100 Mechanical Ventilator 40 07/09/20 00:07 70 07/09/20 00:00 40 07/09/20 00:00 Mechanical Ventilator 07/08/20 23:53 97.0 68 18 148/74 (98) 100 07/08/20 22:35 75 19 100 Mechanical Ventilator 40 100 22 40 Intake and Output 07/08/20 07/09/20 19:00 07:00 Intake Total 655 ml 730 ml Output Total 200 ml Balance 655 ml 530 ml Free Water 50 ml 50 ml IV Total 55 ml Tube Feeding 550 ml 680 ml Output Urine Total 50 ml Stool Total 150 ml Laboratory Tests 07/08/20 22:43: POC Whole Blood Glucose [Pending] 07/09/20 03:10: White Blood Count 9.8, Red Blood Count 2.61L, Hemoglobin 7.6L, Hematocrit 23.0L, Mean Corpuscular Volume 88, Mean Corpuscular Hemoglobin 29.3, Mean Corpuscular Hemoglobin Concent 33.3, Red Cell Distribution Width 17.0H, Platelet Count 185, Mean Platelet Volume 8.6, Neutrophils (%) (Auto) , Lymphocytes (%) (Auto) , Monocytes (%) (Auto) , Eosinophils (%) (Auto) , Basophils (%) (Auto) , Sodium Level 131L, Potassium Level 4.8, Chloride Level 97L, Carbon Dioxide Level 30, An ion Gap 4L, Blood Urea Nitrogen 68H, Creatinine 3.8H, Estimat Glomerular Kody tration Rate 20.2, Glucose Level 118H, Calcium Level 8.1L 07/09/20 04:45: POC Whole Blood Glucose 124H 07/09/20 12:03: POC Whole Blood Glucose 160H 07/09/20 17:33: POC Whole Blood Glucose 118H Height (Feet): 5 Height (Inches): 8.00 Weight (Pounds): 143 Objective Debilitated elderly man NCAT supple Coarse BS RRR abd sofft, flat, (+) GT s/p LLE BKA Assessment/Plan Status: progressing Assessment/Plan: Assessment Abnormal LFT - steadily improving (s/p US, CT, HIDA) - ? infectious hepatitis - Hep A and B negative - ? vascular - ? meds - ? other Gross hematuria - improved Acute anemia, ? urinary losses, ? GI loss ? surgical loss low platelet count low albumin - will increase TF rate Recommendations - f/u CMV PCR - Unable to have MRCP due to vent - continue to hold seroquel - follow LFT and CBC - no plans for GI w/u, per family discussion - TF - increase rate to give more Kcal and protein - Transfuse Fco Banerjee MD Jul 09, 2020 21:27
[2020-07-10] VITALS: BP 139/76
[2020-07-10] MEDS: Aluminum Hydroxide Gel Susp 15ml GT SCH ×4 (03:03→22:11)
--- NOTE | 2020-07-10 03:15 | NUR ---
NURSE NOTES: pt. continuing to refuse bed bath- oral care provided- pt. appears to be sating well on current vent settings- will continue to monitor pt. and with plan of care.
[2020-07-10 03:50] VITALS: BP 141/76
[2020-07-10] MEDS: NovoLOG Insulin Flexpen SUBQ SCH ×3 (05:36→18:17)
[2020-07-10 05:53] LABS: ALANINE AMINOTRANSFERASE 70 U/L (12-78); ALBUMIN 1.4 G/DL (3.4-5.0); ALBUMIN/GLOBULIN RATIO 0.2 (1.0-2.7); ALKALINE PHOSPHATASE 370 U/L (46-116); ANION GAP 4 mmol/L (5-15); ASPARTATE AMINO TRANSFERASE 61 U/L (15-37); BILIRUBIN,TOTAL 0.4 MG/DL (0.2-1.0); BLOOD UREA NITROGEN 54 mg/dL (7-18); CALCIUM 7.8 MG/DL (8.5-10.1); CARBON DIOXIDE 28 MMOL/L (21-32); CHLORIDE 99 MMOL/L (98-107); CREATININE 3.2 MG/DL (0.55-1.30); PHOSPHORUS 3.1 MG/DL (2.5-4.9); POTASSIUM 4.6 MMOL/L (3.5-5.1); SODIUM 131 MMOL/L (136-145)
[2020-07-10 06:15] LABS: HEMATOCRIT 23.4 % (42.0-52.0); HEMOGLOBIN 7.7 G/DL (14.2-18.0); MEAN CORPUSCULAR VOLUME 90 FL (80-99); PLATELET COUNT 196 K/UL (150-450); RED CELL DISTRIBUTION WIDTH 16.4 % (11.6-14.8); WHITE BLOOD COUNT 9.7 K/UL (4.8-10.8)
--- NOTE | 2020-07-10 06:39 | Hematology/Onc Progress Note ---
Assessment/Plan Assessment/Plan ASSESSMENT AND PLAN: #. Anemia that is likely due to chronic disease, r/o gi bleeding --> anemia panel has been reviewed, ferritin is >2000 --> no e/o hemolysis is noted --> transfuse on prn basis --> blood consent has been signed --> hgb 7.4-->7.4-->7-->6.7-->8-->7.5-->8.4-->9.1->8.1-->5.6->7.4-->7-->6.6->8-->7.5--> 7.9->7.6 --> folic acid is wnl --> 1 unit prbc 06/18 --> epogen has been started # Acute DVT in the distal right common femoral vein and profunda femoris vein. --> DUPLEX. Acute DVT in the distal right common femoral vein and profunda femoris vein. 2. No evidence of left lower extremity DVT. --> cannot anticoagulate at this time --> 06/17 s/p ivc filter placement --> hold off anticoag # Leukocytosis is likely due to b/l infiltrates --> on abx as per id -> ABX yolis/vanc-->yolis/linezolid--> yolis/levaq-->linezolid->vanc-->cefepime/gent --> continue trend --> wbc 15-->12->9.5-->13-->14 # Thrombocytopenia likely due to infection --> plt 82-->67->78 --> hep and hiv neg # Respiratory failure in this patient with vent-dependent respiratory failure. 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 # Dysphagia --> status post PEG placement. # Renal failure. -> per Dr. Honeycutt. # Hyperkalemia and kayxelate as needed. # Dvt ppx scds Appreciate consultation and angela RN Subjective Constitutional: Denies: no symptoms, chills, fever, malaise, weakness, other HEENT: Denies: no symptoms, eye pain, blurred vision, tearing, double vision, ear pain, ear discharge, nose pain, nose congestion, throat pain, throat swelling, mouth pain, mouth swelling, other Cardiovascular: Denies: no symptoms, chest pain, edema, irregular heart rate, lightheadedness, palpitations, syncope, other Allergies: Coded Allergies: No Known Allergies (Unverified , 06/13/20) All Systems: reviewed and negative except above Subjective 06/16 meds noted, labs reviewed, vent to trach, for ivc filter potentially 06/17 labs noted, meds reviewed, for ivc filter once covid neg 06/18 labs are noted, on vent and gt, 1 unit prbc ordered 06/19 labs pending, is s/p ivcf placement yesterday 06/20 for hd nontunneled cathter placement, no bleeding 06/22 labs noted, no bleeding, found down overnight, got ct brain, is neg 06/23 overnight is agitated and requiring restraints 06/24 labs noted, meds reviewed, hgb pending for am, restraints 06/25 labs reviewed, meds noted, no bleeding, hgb improved 06/26 per Rn, with rapid response overnight hr is improved, meds noted 06/27 labs reviewed, meds noted, no bleeding, hgb 5.6, wbc elevated, to get 2 unit prbc 06/29 on vanc, wbc 13, hgb 7.3, plt 88, on vanc 06/30 meds reviewed, hgb at 7, occult +, as per gi care, with diarrhea 07/01 plt 67, hgb 6.6, to get 2 units prbc, angela RN at bedside 07/02 RUC permacath reviewed, minimal bleeding, meds noted 07/03 gt feeds, meds noted, no bleeding, labs reviewed 07/04 awake, alert is on ivf, meds noted, labs reviewed 07/06 labs reviewed, meds noted, gt, watching tv 07/07 a+o x2, no bleeding, meds reviewed, no major changes 07/08 at bedside angela rn, on abx, labs pending for today, no bleeding 07/09 comfortable overnight, on vent, labs reviewed, abx 07/10 is comfortable, has been refusing care, on vent, labs noted Objective Objective Current Medications Medications (Trade) Dose Ordered Sig/Maryjane Route PRN Reason Start Time Stop Time Status Last Admin Dose Admin Acetaminophen (Tylenol) 650 mg Q4H PRN GT Mild Pain (Pain Scale 1-3) 06/18/20 23:00 07/18/20 22:59 Acetaminophen (Tylenol) 650 mg Q4HR PRN GT FEVER 06/14/20 09:45 07/14/20 09:44 06/19/20 20:45 Aluminum Hydroxide (Amphojel) 1,920 mg Q6H GT 06/17/20 10:00 07/17/20 09:59 07/10/20 03:03 Ascorbic Acid (Vitamin C) 500 mg DAILY GT 07/01/20 09:00 07/31/20 08:59 07/09/20 08:15 Cefepime HCl 500 mg/Dextrose 55 ml @ 110 mls/hr Q24H IV 07/08/20 16:00 07/15/20 15:59 07/09/20 18:55 Chlorhexidine Gluconate (Inés-Hex 2%) 1 applic DAILY@1999 TOPIC 06/21/20 20:00 09/19/20 19:59 07/09/20 20:24 Dextrose (Dextrose 50%) 25 ml Q30M PRN IV Hypoglycemia 06/28/20 18:30 09/26/20 18:29 Dextrose (Dextrose 50%) 50 ml Q30M PRN IV Hypoglycemia 06/28/20 18:30 09/26/20 18:29 Epoetin Bonilla (Epoetin Bonilla(ESRD on dialysis)) 10,000 unit TUE-TUE-TUE SUBQ 07/02/20 21:00 09/16/20 20:59 07/09/20 20:23 Gentamicin Sulfate (Gentamicin vial) 300 mg Q12HR@,22 INH 07/07/20 22:00 07/14/20 21:59 07/09/20 22:32 Haloperidol Lactate (Haldol) 5 mg Q6H PRN IM Agitation 06/21/20 23:15 08/05/20 23:14 06/25/20 18:17 Insulin Aspart (NovoLOG) EVERY 6 HOURS SUBQ 06/29/20 00:00 09/27/20 00:00 07/10/20 05:36 Lansoprazole (Prevacid) 30 mg Q12HR GT 06/30/20 21:00 07/30/20 20:59 07/09/20 20:22 Levothyroxine Sodium (Synthroid) 88 mcg DAILY@0630 GT 07/03/20 06:30 08/02/20 06:29 07/10/20 05:34 Vancomycin HCl (Vanco pharmacy to dose) 1 ea DAILY PRN MISC Per rx protocol 06/27/20 11:30 07/18/20 23:59 Last 24 Hour Vital Signs Date Time Temp Pulse Resp B/P (MAP) Pulse Ox O2 Delivery O2 Flow Rate FiO2 07/10/20 04:00 40 07/10/20 04:00 Mechanical Ventilator 07/10/20 03:50 98.0 85 22 141/76 (97) 98 07/10/20 03:31 74 07/10/20 03:00 78 20 40 07/10/20 00:00 40 07/10/20 00:00 Mechanical Ventilator 07/10/20 00:00 97.9 78 22 139/76 (97) 96 07/09/20 23:27 77 07/09/20 22:37 77 23 100 Mechanical Ventilator 40 76 23 40 07/09/20 20:00 97.5 81 22 152/77 (102) 97 07/09/20 20:00 Mechanical Ventilator 07/09/20 20:00 40 07/09/20 19:04 76 07/09/20 18:52 76 18 40 07/09/20 16:00 40 07/09/20 16:00 97.0 76 27 157/79 (105) 97 07/09/20 16:00 Mechanical Ventilator 07/09/20 15:14 75 07/09/20 15:00 89 18 40 07/09/20 12:00 Mechanical Ventilator 07/09/20 12:00 73 07/09/20 12:00 40 07/09/20 12:00 96.6 75 18 157/82 (107) 94 07/09/20 10:50 77 19 100 Mechanical Ventilator 40 80 20 40 07/09/20 08:00 96.6 72 18 128/79 (95) 98 07/09/20 08:00 71 07/09/20 08:00 Mechanical Ventilator 07/09/20 08:00 40 07/09/20 07:10 79 24 40 07/09/20 04:02 74 07/09/20 04:00 Mechanical Ventilator 07/09/20 04:00 96.8 75 20 151/79 (103) 98 07/09/20 04:00 40 07/09/20 02:37 72 22 40 07/09/20 02:37 72 22 100 Mechanical Ventilator 40 07/09/20 00:07 70 07/09/20 00:00 40 07/09/20 00:00 Mechanical Ventilator 07/08/20 23:53 97.0 68 18 148/74 (98) 100 07/08/20 22:35 75 19 100 Mechanical Ventilator 40 100 22 40 07/08/20 20:00 97.2 72 20 153/80 (104) 96 07/08/20 20:00 40 07/08/20 20:00 Mechanical Ventilator 07/08/20 19:50 72 07/08/20 18:42 70 22 45 07/08/20 16:00 97.0 74 19 146/75 (98) 93 07/08/20 16:00 40 07/08/20 16:00 Mechanical Ventilator 07/08/20 16:00 74 07/08/20 15:10 74 19 45 07/08/20 12:00 72 07/08/20 12:00 97.3 74 20 151/78 (102) 97 07/08/20 12:00 40 07/08/20 12:00 Mechanical Ventilator 07/08/20 11:10 70 20 45 07/08/20 08:00 Mechanical Ventilator 07/08/20 08:00 40 07/08/20 08:00 40 07/08/20 08:00 97.0 76 19 157/77 (103) 97 07/08/20 07:52 72 07/08/20 07:05 72 18 45 Intake and Output 07/09/20 07/10/20 19:00 07:00 Intake Total 890 ml 715 ml Output Total 200 ml 450 ml Balance 690 ml 265 ml Free Water 50 ml 50 ml Tube Feeding 840 ml 665 ml Output Urine Total 200 ml 50 ml Stool Total 400 ml # Bowel Movements 1 Labs Test 07/07/20 12:48 07/07/20 16:54 07/07/20 21:35 07/08/20 00:33 POC Whole Blood Glucose 91 MG/DL (74-106) 111 MG/DL (74-106) 118 MG/DL (74-106) Random Vancomycin Level 16.6 ug/mL Test 07/08/20 02:50 07/08/20 04:53 07/08/20 12:22 07/08/20 17:02 White Blood Count 10.1 K/UL (4.8-10.8) Red Blood Count 2.64 M/UL (4.70-6.10) Hemoglobin 7.9 G/DL (14.2-18.0) Hematocrit 23.1 % (42.0-52.0) Mean Corpuscular Volume 87 FL (80-99) Mean Corpuscular Hemoglobin 29.9 PG (27.0-31.0) Mean Corpuscular Hemoglobin Concent 34.2 G/DL (32.0-36.0) Red Cell Distribution Width 17.1 % (11.6-14.8) Platelet Count 184 K/UL (150-450) Mean Platelet Volume 8.9 FL (6.5-10.1) Neutrophils (%) (Auto) % (45.0-75.0) Lymphocytes (%) (Auto) % (20.0-45.0) Monocytes (%) (Auto) % (1.0-10.0) Eosinophils (%) (Auto) % (0.0-3.0) Basophils (%) (Auto) % (0.0-2.0) Sodium Level 131 MMOL/L (136-145) Potassium Level 4.3 MMOL/L (3.5-5.1) Chloride Level 98 MMOL/L (98-107) Carbon Dioxide Level 32 MMOL/L (21-32) Anion Gap 1 mmol/L (5-15) Blood Urea Nitrogen 52 mg/dL (7-18) Creatinine 3.4 MG/DL (0.55-1.30) Estimat Glomerular Filtration Rate 23.0 mL/min (>60) Glucose Level 149 MG/DL (74-106) Calcium Level 8.3 MG/DL (8.5-10.1) POC Whole Blood Glucose 160 MG/DL (74-106) 134 MG/DL (74-106) 138 MG/DL (74-106) Test 07/08/20 22:43 07/09/20 03:10 07/09/20 04:45 07/09/20 12:03 White Blood Count 9.8 K/UL (4.8-10.8) Red Blood Count 2.61 M/UL (4.70-6.10) Hemoglobin 7.6 G/DL (14.2-18.0) Hematocrit 23.0 % (42.0-52.0) Mean Corpuscular Volume 88 FL (80-99) Mean Corpuscular Hemoglobin 29.3 PG (27.0-31.0) Mean Corpuscular Hemoglobin Concent 33.3 G/DL (32.0-36.0) Red Cell Distribution Width 17.0 % (11.6-14.8) Platelet Count 185 K/UL (150-450) Mean Platelet Volume 8.6 FL (6.5-10.1) Neutrophils (%) (Auto) % (45.0-75.0) Lymphocytes (%) (Auto) % (20.0-45.0) Monocytes (%) (Auto) % (1.0-10.0) Eosinophils (%) (Auto) % (0.0-3.0) Basophils (%) (Auto) % (0.0-2.0) Sodium Level 131 MMOL/L (136-145) Potassium Level 4.8 MMOL/L (3.5-5.1) Chloride Level 97 MMOL/L (98-107) Carbon Dioxide Level 30 MMOL/L (21-32) Anion Gap 4 mmol/L (5-15) Blood Urea Nitrogen 68 mg/dL (7-18) Creatinine 3.8 MG/DL (0.55-1.30) Estimat Glomerular Filtration Rate 20.2 mL/min (>60) Glucose Level 118 MG/DL (74-106) Calcium Level 8.1 MG/DL (8.5-10.1) POC Whole Blood Glucose 124 MG/DL (74-106) 160 MG/DL (74-106) Test 07/09/20 17:33 07/09/20 22:57 07/10/20 03:10 07/10/20 04:49 POC Whole Blood Glucose 118 MG/DL (74-106) 112 MG/DL (74-106) 153 MG/DL (74-106) Sodium Level 131 MMOL/L (136-145) Potassium Level 4.6 MMOL/L (3.5-5.1) Chloride Level 99 MMOL/L (98-107) Carbon Dioxide Level 28 MMOL/L (21-32) Anion Gap 4 mmol/L (5-15) Blood Urea Nitrogen 54 mg/dL (7-18) Creatinine 3.2 MG/DL (0.55-1.30) Estimat Glomerular Filtration Rate 24.7 mL/min (>60) Glucose Level 157 MG/DL (74-106) Calcium Level 7.8 MG/DL (8.5-10.1) Phosphorus Level 3.1 MG/DL (2.5-4.9) Magnesium Level 2.5 MG/DL (1.8-2.4) Total Bilirubin 0.4 MG/DL (0.2-1.0) Aspartate Amino Transf (AST/SGOT) 61 U/L (15-37) Alanine Aminotransferase (ALT/SGPT) 70 U/L (12-78) Alkaline Phosphatase 370 U/L (46-116) C-Reactive Protein, Quantitative 11.8 mg/dL (0.00-0.90) Pro-B-Type Natriuretic Peptide > 60613 pg/mL (0-125) Total Protein 7.4 G/DL (6.4-8.2) Albumin 1.4 G/DL (3.4-5.0) Globulin 6.0 g/dL Albumin/Globulin Ratio 0.2 (1.0-2.7) Random Vancomycin Level 19.8 ug/mL Height (Feet): 5 Height (Inches): 8.00 Weight (Pounds): 143 Objective PHYSICAL EXAMINATION: VITAL SIGNS: reviewed HEAD AND NECK: Show status post tracheostomy. vent+ LUNGS: Coarse rhonchi and basilar rales. CARDIOVASCULAR: Shows irregular S1 and S2 with no gallop. ABDOMEN: Soft. Status post G-tube. EXTREMITIES: No pitting edema.++Left Jose Epperson MD Jul 10, 2020 06:39
--- NOTE | 2020-07-10 06:46 | General Progress Note ---
Subjective ROS Limited/Unobtainable: Yes Allergies: Coded Allergies: No Known Allergies (Unverified , 06/13/20) Subjective events noted interval notes reviewed glucose values are stable Item Value Date Time Bedside Blood Glucose 153 mg/dl H 07/10/20 0536 Bedside Blood Glucose 112 mg/dl 07/09/20 2301 Bedside Blood Glucose 119 mg/dl 07/09/20 1800 Bedside Blood Glucose 160 mg/dl H 07/09/20 1206 Bedside Blood Glucose 124 mg/dl H 07/09/20 0520 Bedside Blood Glucose 136 mg/dl H 07/08/20 2300 Objective Last 24 Hour Vital Signs Date Time Temp Pulse Resp B/P (MAP) Pulse Ox O2 Delivery O2 Flow Rate FiO2 07/10/20 04:00 40 07/10/20 04:00 Mechanical Ventilator 07/10/20 03:50 98.0 85 22 141/76 (97) 98 07/10/20 03:31 74 07/10/20 03:00 78 20 40 07/10/20 00:00 40 07/10/20 00:00 Mechanical Ventilator 07/10/20 00:00 97.9 78 22 139/76 (97) 96 07/09/20 23:27 77 07/09/20 22:37 77 23 100 Mechanical Ventilator 40 76 23 40 07/09/20 20:00 97.5 81 22 152/77 (102) 97 07/09/20 20:00 Mechanical Ventilator 07/09/20 20:00 40 07/09/20 19:04 76 07/09/20 18:52 76 18 40 07/09/20 16:00 40 07/09/20 16:00 97.0 76 27 157/79 (105) 97 07/09/20 16:00 Mechanical Ventilator 07/09/20 15:14 75 07/09/20 15:00 89 18 40 07/09/20 12:00 Mechanical Ventilator 07/09/20 12:00 73 07/09/20 12:00 40 07/09/20 12:00 96.6 75 18 157/82 (107) 94 07/09/20 10:50 77 19 100 Mechanical Ventilator 40 80 20 40 07/09/20 08:00 96.6 72 18 128/79 (95) 98 07/09/20 08:00 71 07/09/20 08:00 Mechanical Ventilator 07/09/20 08:00 40 07/09/20 07:10 79 24 40 Intake and Output 07/09/20 07/10/20 19:00 07:00 Intake Total 890 ml 715 ml Output Total 200 ml 450 ml Balance 690 ml 265 ml Free Water 50 ml 50 ml Tube Feeding 840 ml 665 ml Output Urine Total 200 ml 50 ml Stool Total 400 ml # Bowel Movements 1 Laboratory Tests 07/09/20 12:03: POC Whole Blood Glucose 160H 07/09/20 17:33: POC Whole Blood Glucose 118H 07/09/20 22:57: POC Whole Blood Glucose 112H 07/10/20 03:10: White Blood Count [Pending], Red Blood Count [Pending], Hemoglobin [Pending], Hematocrit [Pending], Mean Corpuscular Volume [Pending], Mean Corpuscular Hemoglobin [Pending], Mean Corpuscular Hemoglobin Concent [Pending], Red Cell Distribution Width [Pending], Platelet Count [Pending], Mean Platelet Volume [Pending], Neutrophils (%) (Auto) [Pending], Lymphocytes (%) (Auto) [Pending], Monocytes (%) (Auto) [Pending], Eosinophils (%) (Auto) [Pending], Basophils (%) (Auto) [Pending], Sodium Level 131L, Potassium Level 4.6, Chloride Level 99, Carbon Dioxide Level 28, Anion Gap 4L, Blood Urea Nitrogen 54H, Creatinine 3.2H, Estimat Glomerular Filtration Rate 24.7, Glucose Level 157H, Calcium Level 7.8L , Phosphorus Level 3.1, Magnesium Level 2.5H, Total Bilirubin 0.4, Aspartate Amino Transf (AST/SGOT) 61H, Alanine Aminotransferase (ALT/SGPT) 70, Alkaline Phosphatase 370H, C-Reactive Protein, Quantitative 11.8H, Pro-B-Type Natriuretic Peptide > 26690H, Total Protein 7.4, Albumin 1.4L, Globulin 6.0, Albumin/Globulin Ratio 0.2L, Random Vancomycin Level 19.8 07/10/20 04:49: POC Whole Blood Glucose 153H Height (Feet): 5 Height (Inches): 8.00 Weight (Pounds): 143 General Appearance: no apparent distress Cardiovascular: normal rate Respiratory/Chest: decreased breath sounds Abdomen: normal bowel sounds Objective Current Medications Medications (Trade) Dose Ordered Sig/Maryjane Route PRN Reason Start Time Stop Time Status Last Admin Dose Admin Acetaminophen (Tylenol) 650 mg Q4H PRN GT Mild Pain (Pain Scale 1-3) 06/18/20 23:00 07/18/20 22:59 Acetaminophen (Tylenol) 650 mg Q4HR PRN GT FEVER 06/14/20 09:45 07/14/20 09:44 06/19/20 20:45 Aluminum Hydroxide (Amphojel) 1,920 mg Q6H GT 06/17/20 10:00 07/17/20 09:59 07/10/20 03:03 Ascorbic Acid (Vitamin C) 500 mg DAILY GT 07/01/20 09:00 07/31/20 08:59 07/09/20 08:15 Cefepime HCl 500 mg/Dextrose 55 ml @ 110 mls/hr Q24H IV 07/08/20 16:00 07/15/20 15:59 07/09/20 18:55 Chlorhexidine Gluconate (Inés-Hex 2%) 1 applic DAILY@1999 TOPIC 06/21/20 20:00 09/19/20 19:59 07/09/20 20:24 Dextrose (Dextrose 50%) 25 ml Q30M PRN IV Hypoglycemia 06/28/20 18:30 09/26/20 18:29 Dextrose (Dextrose 50%) 50 ml Q30M PRN IV Hypoglycemia 06/28/20 18:30 09/26/20 18:29 Epoetin Bonilla (Epoetin Bonilla(ESRD on dialysis)) 10,000 unit TUE-TUE-TUE SUBQ 07/02/20 21:00 09/16/20 20:59 07/09/20 20:23 Gentamicin Sulfate (Gentamicin vial) 300 mg Q12HR@10,22 INH 07/07/20 22:00 07/14/20 21:59 07/09/20 22:32 Haloperidol Lactate (Haldol) 5 mg Q6H PRN IM Agitation 06/21/20 23:15 08/05/20 23:14 06/25/20 18:17 Insulin Aspart (NovoLOG) EVERY 6 HOURS SUBQ 06/29/20 00:00 09/27/20 00:00 07/10/20 05:36 Lansoprazole (Prevacid) 30 mg Q12HR GT 06/30/20 21:00 07/30/20 20:59 07/09/20 20:22 Levothyroxine Sodium (Synthroid) 88 mcg DAILY@0630 GT 07/03/20 06:30 08/02/20 06:29 07/10/20 05:34 Vancomycin HCl (Vanco pharmacy to dose) 1 ea DAILY PRN MISC Per rx protocol 06/27/20 11:30 07/18/20 23:59 Assessment/Plan Problem List: (1) History of left below knee amputation ICD Codes: Z89.512 - Acquired absence of left leg below knee SNOMED: 214129954, [id number] (2) Surgical wound dehiscence ICD Codes: T81.31XA - Disruption of external operation (surgical) wound, not elsewhere classified, initial encounter SNOMED: 59056637 (3) Hyperkalemia ICD Codes: E87.5 - Hyperkalemia SNOMED: 72425517 (4) Acute respiratory failure ICD Codes: J96.00 - Acute respiratory failure, unspecified whether with hypoxia or hypercapnia SNOMED: 97811444 Qualifiers: Qualified Codes: J96.02 - Acute respiratory failure with hypercapnia (5) Hypothyroidism ICD Codes: E03.9 - Hypothyroidism, unspecified SNOMED: 50672665 (6) Hyperglycemia ICD Codes: R73.9 - Hyperglycemia, unspecified SNOMED: 93562467 Status: progressing Assessment/Plan: continue Levothyroxine 88 mcg daily repeat thyroid function in 1-2 weeks continue glucose monitoring Davy Ramos MD Jul 10, 2020 06:46
--- NOTE | 2020-07-10 07:07 | NUR ---
NURSE HAND-OFF REPORT: Important Events on Shift:none Patient Status: stable Diet: Vital Af 1.2 Pending Orders: Pending Results/Labs: Pending MD notification: Latest Vital Signs: Temperature 98.0 , Pulse 85 , B/P 141 /76 , Respiratory Rate 22 , O2 SAT 98 , Mechanical Ventilator, O2 Flow Rate 15.0 . Vital Sign Comment: EKG Rhythm: Sinus Rhythm Rhythm change?: N MD Notified?: MD Response: Latest Santiago Fall Score: 75 Fall Risk: High Risk Safety Measures: Call light Within Reach, Bed Alarm Zone 2, Side Rails Side Rails x2, Bed position Low and Locked. Fall Precautions: [place] Patient Fall Education Report given to Amarjit Rn, and Nohelia Layne- aware to f/u on any abnormal am labs.
--- NOTE | 2020-07-10 07:33 | NUR ---
NURSE NOTES: Received patient report from MAX Leon. Patient shows no signs of distress or pain at the time. Patient is on Vent AC 18, Tidal Volume 500, FIO2 40%, PEEP 5. Patient shows no signs of respiratory distress. Trach in place. Patient has rectal tube in place and draining. Sparrow Catheter patent and draining. G tube feeding intact running at 70 CC/Hr. IV intact and patent. There are no signs of erythema, infiltration, or bleeding. Bed is in the lowest position, call light is within reach, side rails up x3. Will continue to monitor.
[2020-07-10 08:00] VITALS: BP 126/70
[2020-07-10] MEDS: Ascorbic Acid 500mg tab GT SCH (09:12)
--- NOTE | 2020-07-10 09:54 | Infectious Diseases Prog Note ---
Assessment/Plan Assessment/Plan IMPRESSION: Pneumonia with Pseudomonas & Providencia Hypothermia COVID19 X 2: negative Ventilator-dependent respiratory failure, Diabetes mellitus type 2, Hypertension, History of left BKA, Hypertension, anemia, Major depression, Pressure ulcer, Elevated transaminase, Hyperkalemia. Anemia R leg DVT s/p IVC filter Sacral osteomyelitis Severe anemia Acute renal failure ESRD Hypercapnic respiratory failure Hematuria Thrombocytopenia Diverticulosis Diarrhea, C. difficile negative RECOMMENDATION: Continue Vancomycin until 07/18 Continue Cefepime & Gentamicin inhaler Case was D/W RN Subjective ROS Limited/Unobtainable: Yes Constitutional: Denies: fever Allergies: Coded Allergies: No Known Allergies (Unverified , 06/13/20) Objective Last 24 Hour Vital Signs Date Time Temp Pulse Resp B/P (MAP) Pulse Ox O2 Delivery O2 Flow Rate FiO2 07/10/20 07:20 71 20 40 07/10/20 04:00 40 07/10/20 04:00 Mechanical Ventilator 07/10/20 03:50 98.0 85 22 141/76 (97) 98 07/10/20 03:31 74 07/10/20 03:00 78 20 40 07/10/20 00:00 40 07/10/20 00:00 Mechanical Ventilator 07/10/20 00:00 97.9 78 22 139/76 (97) 96 07/09/20 23:27 77 07/09/20 22:37 77 23 100 Mechanical Ventilator 40 76 23 40 07/09/20 20:00 97.5 81 22 152/77 (102) 97 07/09/20 20:00 Mechanical Ventilator 07/09/20 20:00 40 07/09/20 19:04 76 07/09/20 18:52 76 18 40 07/09/20 16:00 40 07/09/20 16:00 97.0 76 27 157/79 (105) 97 07/09/20 16:00 Mechanical Ventilator 07/09/20 15:14 75 07/09/20 15:00 89 18 40 07/09/20 12:00 Mechanical Ventilator 07/09/20 12:00 73 07/09/20 12:00 40 07/09/20 12:00 96.6 75 18 157/82 (107) 94 07/09/20 10:50 77 19 100 Mechanical Ventilator 40 80 20 40 Height (Feet): 5 Height (Inches): 8.00 Weight (Pounds): 143 HEENT: status post trach, other - dry mouth Respiratory/Chest: lungs clear - on ventilator Cardiovascular: normal rate Abdomen: soft, non tender Extremities: no edema, other - Left BKA Skin: other - Stage 4 sacral ulcer Neurologic/Psychiatric: other - drowsy Laboratory Tests Test 07/09/20 12:03 07/09/20 17:33 07/09/20 22:57 07/10/20 03:10 POC Whole Blood Glucose 160 MG/DL (74-106) H 118 MG/DL (74-106) H 112 MG/DL (74-106) H White Blood Count 9.7 K/UL (4.8-10.8) Red Blood Count 2.60 M/UL (4.70-6.10) L Hemoglobin 7.7 G/DL (14.2-18.0) L Hematocrit 23.4 % (42.0-52.0) L Mean Corpuscular Volume 90 FL (80-99) Mean Corpuscular Hemoglobin 29.4 PG (27.0-31.0) Mean Corpuscular Hemoglobin Concent 32.8 G/DL (32.0-36.0) Red Cell Distribution Width 16.4 % (11.6-14.8) H Platelet Count 196 K/UL (150-450) Mean Platelet Volume 8.3 FL (6.5-10.1) Neutrophils (%) (Auto) % (45.0-75.0) Lymphocytes (%) (Auto) % (20.0-45.0) Monocytes (%) (Auto) % (1.0-10.0) Eosinophils (%) (Auto) % (0.0-3.0) Basophils (%) (Auto) % (0.0-2.0) Neutrophils % (Manual) Pending Lymphocytes % (Manual) Pending Platelet Estimate Pending Platelet Morphology Pending Sodium Level 131 MMOL/L (136-145) L Potassium Level 4.6 MMOL/L (3.5-5.1) Chloride Level 99 MMOL/L (98-107) Carbon Dioxide Level 28 MMOL/L (21-32) Anion Gap 4 mmol/L (5-15) L Blood Urea Nitrogen 54 mg/dL (7-18) H Creatinine 3.2 MG/DL (0.55-1.30) H Estimat Glomerular Filtration Rate 24.7 mL/min (>60) Glucose Level 157 MG/DL (74-106) H Calcium Level 7.8 MG/DL (8.5-10.1) L Phosphorus Level 3.1 MG/DL (2.5-4.9) Magnesium Level 2.5 MG/DL (1.8-2.4) H Total Bilirubin 0.4 MG/DL (0.2-1.0) Aspartate Amino Transf (AST/SGOT) 61 U/L (15-37) H Alanine Aminotransferase (ALT/SGPT) 70 U/L (12-78) Alkaline Phosphatase 370 U/L (46-116) H C-Reactive Protein, Quantitative 11.8 mg/dL (0.00-0.90) H Pro-B-Type Natriuretic Peptide > 27515 pg/mL (0-125) H Total Protein 7.4 G/DL (6.4-8.2) Albumin 1.4 G/DL (3.4-5.0) L Globulin 6.0 g/dL Albumin/Globulin Ratio 0.2 (1.0-2.7) L Random Vancomycin Level 19.8 ug/mL Test 07/10/20 04:49 POC Whole Blood Glucose 153 MG/DL (74-106) H Current Medications Medications (Trade) Dose Ordered Sig/Maryjane Route PRN Reason Start Time Stop Time Status Last Admin Dose Admin Acetaminophen (Tylenol) 650 mg Q4H PRN GT Mild Pain (Pain Scale 1-3) 06/18/20 23:00 07/18/20 22:59 Acetaminophen (Tylenol) 650 mg Q4HR PRN GT FEVER 06/14/20 09:45 07/14/20 09:44 06/19/20 20:45 Aluminum Hydroxide (Amphojel) 1,920 mg Q6H GT 06/17/20 10:00 07/17/20 09:59 07/10/20 09:13 Ascorbic Acid (Vitamin C) 500 mg DAILY GT 07/01/20 09:00 07/31/20 08:59 07/10/20 09:12 Cefepime HCl 500 mg/Dextrose 55 ml @ 110 mls/hr Q24H IV 07/08/20 16:00 07/15/20 15:59 07/09/20 18:55 Chlorhexidine Gluconate (Inés-Hex 2%) 1 applic DAILY@2000 TOPIC 06/21/20 20:00 09/19/20 19:59 07/09/20 20:24 Dextrose (Dextrose 50%) 25 ml Q30M PRN IV Hypoglycemia 06/28/20 18:30 09/26/20 18:29 Dextrose (Dextrose 50%) 50 ml Q30M PRN IV Hypoglycemia 06/28/20 18:30 09/26/20 18:29 Epoetin Bonilla (Epoetin Bonilla(ESRD on dialysis)) 10,000 unit TUE-TUE-TUE SUBQ 07/02/20 21:00 09/16/20 20:59 07/09/20 20:23 Gentamicin Sulfate (Gentamicin vial) 300 mg Q12HR@ INH 07/07/20 22:00 07/14/20 21:59 07/09/20 22:32 Haloperidol Lactate (Haldol) 5 mg Q6H PRN IM Agitation 06/21/20 23:15 08/05/20 23:14 06/25/20 18:17 Insulin Aspart (NovoLOG) EVERY 6 HOURS SUBQ 06/29/20 00:00 09/27/20 00:00 07/10/20 05:36 Lansoprazole (Prevacid) 30 mg Q12HR GT 06/30/20 21:00 07/30/20 20:59 07/10/20 09:13 Levothyroxine Sodium (Synthroid) 88 mcg DAILY@0630 GT 07/03/20 06:30 08/02/20 06:29 07/10/20 05:34 Vancomycin HCl (Vanco pharmacy to dose) 1 ea DAILY PRN MISC Per rx protocol 06/27/20 11:30 07/18/20 23:59 Paul Amador MD Jul 10, 2020 09:54
--- NOTE | 2020-07-10 10:42 | Nephrology Progress Note ---
Assessment/Plan Problem List: (1) KERRI (acute kidney injury) (2) Acute respiratory failure (3) Chronic respiratory failure (4) Anemia (5) Hyperkalemia Assessment Acute on chronic renal failure Anemia Respiratory failure acute on chronic Respiratory acidosis and hypoxia Hyperkalemia Plan July 10: Last dialyzed July 09. Labs reviewed. Hyponatremia noted. Continue to monitor electrolytes and renal parameters. Hold off dialysis at this time and monitor renal parameters. Recheck TSH level. Continue per consultants. July 09: Due for dialysis today. Labs reviewed. Medication list reviewed. Continue same treatment plan. July 08: Patient was dialyzed yesterday. Today's labs reviewed. Electrolytes and renal parameters stable. Next dialysis tomorrow. Continue per consultants. July 07: Labs reviewed. Dialysis today. Abnormal electrolytes will be. Discussed with RN. Resolved after dialysis. Continue per consultants July 06: Labs reviewed. Dialyzed July 04. Due for dialysis July 07. Continue per consultants. July 05: Labs reviewed. Dialyzed yesterday. Electrolytes and renal parameters stable. Continue per consultants. Continue dialysis as needed. July 04: Labs reviewed. Due for dialysis today. Continue to monitor electrolytes and hemoglobin hematocrit. Continue per consultants. July 03: Lab reviewed. Will defer dialysis for July 04. Some blood oozing from the catheter site. General surgery to be informed. Electrolytes stable. Continue as is. July 02: Labs reviewed. Due for dialysis tomorrow. Hemoglobin higher. Stable electrolytes. Continue per consultants. July 01: Labs reviewed. Dialyzed yesterday. Patient has a permacath. Continue per consultants. Worsening anemia noted, deferred to production corrugator. June 30: Labs reviewed. Due for dialysis today. Patient appears to be needing hemodialysis for sometimes incoming future. Will arrange for placement of a tunneled catheter. Continue per consultants. Anemia management per production corrugator. June 29: Labs reviewed. Hemoglobin is higher. Next hemodialysis tomorrow June 30. Continue per consultants. June 28: Labs reviewed. Last dialyzed June 26. Hemoglobin remains low. Defer transfusion and work-up to production corrugator. Continue to follow-up renal parameters. June 27: Labs reviewed. Dialyzed yesterday. Hemoglobin low. Due for transfusion. Continue to monitor renal parameters and hemoglobin and hematocrit. June 26: Labs reviewed. Due for dialysis today. Continue per consultants. Continue to monitor liver enzymes. June 25: Labs reviewed. Will dialyze tomorrow. Continue per consultants. Check liver function enzymes. June 24: Dialyzed yesterday. Labs reviewed. Medication list reviewed. Liver enzymes remains elevated. Continue to monitor electrolytes renal parameters and LFTs. Hemodialysis in a.m. if needed. June 23: Patient will be dialyzed today again. Labs reviewed. Serum creatinine higher. Elevated liver enzymes persist. Patient full code. Continue per consultants. June 22: Patient dialyzed yesterday. Labs reviewed. Liver function tests and enzymes are elevated. Continue to monitor renal parameters and LFTs. Continue per consultants. Patient full code. June 21: Patient due for dialysis today. Labs and medication list reviewed. Discussed with RN. Continue to monitor renal parameters. June 20: Patient had an episode of bradycardia last night. Serum creatinine rising. Patient continues to have respiratory acidosis. Discussed with MAX Bond. Will order non tunneled dialysis catheter placement for initiation of dialysis treatment due to acute renal failure. Patient remains full code. I favor comfort care if bioethics consultation is sought and physicians on the team agreeable. June 19: No CHEM panel today. Low hemoglobin as of yesterday's lab results. Anemia management per Dr. Cueva. Continue to monitor renal parameters. June 18: Labs are reviewed. Hemoglobin lower. Creatinine higher. ABG not done yet. Patient full code. Continue per consultants. June 17: Labs reviewed. Hemoglobin low. Creatinine up to 3. Phosphorus levels elevated. Will start Amphojel via GT tube as a phosphorus binder. Monitor renal parameters. Check ABG. Continue per consultants. June 16: Labs reviewed. Serum creatinine mariana to 2.6. Abnormal electrolytes now normalized. Continue to monitor renal parameters and avoid nephrotoxic's. Continue to adjust pulmonary status as possible. June 15: ABG pH of 7.1. 2D echo suggestive of ejection fraction of 50%. Labs reviewed. Serum creatinine mariana. Will hold IV Lasix. Will give Kayexalate for high potassium and 1 amp of sodium bicarb. Albumin IV bolus given. Continue per consultants. Continue to monitor renal parameters. Kidney ultrasound ordered. June 14: As follow Pulmonary evaluation Sparrow catheter Hold IV fluid IV fluid, until 2D echo results available Kayexalate for high potassium IV Protonix 2D echocardiogram Anemia work-up More labs ordered Subjective ROS Limited/Unobtainable: Yes Objective Objective Last 24 Hour Vital Signs Date Time Temp Pulse Resp B/P (MAP) Pulse Ox O2 Delivery O2 Flow Rate FiO2 07/10/20 07:20 71 20 40 07/10/20 04:00 40 07/10/20 04:00 Mechanical Ventilator 07/10/20 03:50 98.0 85 22 141/76 (97) 98 07/10/20 03:31 74 07/10/20 03:00 78 20 40 07/10/20 00:00 40 07/10/20 00:00 Mechanical Ventilator 07/10/20 00:00 97.9 78 22 139/76 (97) 96 07/09/20 23:27 77 07/09/20 22:37 77 23 100 Mechanical Ventilator 40 76 23 40 07/09/20 20:00 97.5 81 22 152/77 (102) 97 07/09/20 20:00 Mechanical Ventilator 07/09/20 20:00 40 07/09/20 19:04 76 07/09/20 18:52 76 18 40 07/09/20 16:00 40 07/09/20 16:00 97.0 76 27 157/79 (105) 97 07/09/20 16:00 Mechanical Ventilator 07/09/20 15:14 75 07/09/20 15:00 89 18 40 07/09/20 12:00 Mechanical Ventilator 07/09/20 12:00 73 07/09/20 12:00 40 07/09/20 12:00 96.6 75 18 157/82 (107) 94 07/09/20 10:50 77 19 100 Mechanical Ventilator 40 80 20 40 Intake and Output 07/09/20 07/10/20 19:00 07:00 Intake Total 890 ml 750 ml Output Total 200 ml 450 ml Balance 690 ml 300 ml Free Water 50 ml 50 ml Tube Feeding 840 ml 700 ml Output Urine Total 200 ml 50 ml Stool Total 400 ml # Bowel Movements 1 Current Medications Medications (Trade) Dose Ordered Sig/Maryjane Route PRN Reason Start Time Stop Time Status Last Admin Dose Admin Acetaminophen (Tylenol) 650 mg Q4H PRN GT Mild Pain (Pain Scale 1-3) 06/18/20 23:00 07/18/20 22:59 Acetaminophen (Tylenol) 650 mg Q4HR PRN GT FEVER 06/14/20 09:45 07/14/20 09:44 06/19/20 20:45 Aluminum Hydroxide (Amphojel) 1,920 mg Q6H GT 06/17/20 10:00 07/17/20 09:59 07/10/20 09:13 Ascorbic Acid (Vitamin C) 500 mg DAILY GT 07/01/20 09:00 07/31/20 08:59 07/10/20 09:12 Cefepime HCl 500 mg/Dextrose 55 ml @ 110 mls/hr Q24H IV 07/08/20 16:00 07/15/20 15:59 07/09/20 18:55 Chlorhexidine Gluconate (Inés-Hex 2%) 1 applic DAILY@1999 TOPIC 06/21/20 20:00 09/19/20 19:59 07/09/20 20:24 Dextrose (Dextrose 50%) 25 ml Q30M PRN IV Hypoglycemia 06/28/20 18:30 09/26/20 18:29 Dextrose (Dextrose 50%) 50 ml Q30M PRN IV Hypoglycemia 06/28/20 18:30 09/26/20 18:29 Epoetin Bonilla (Epoetin Bonilla(ESRD on dialysis)) 10,000 unit TUE-TUE-TUE SUBQ 07/02/20 21:00 09/16/20 20:59 07/09/20 20:23 Gentamicin Sulfate (Gentamicin vial) 300 mg Q12HR@ INH 07/07/20 22:00 07/14/20 21:59 07/09/20 22:32 Haloperidol Lactate (Haldol) 5 mg Q6H PRN IM Agitation 06/21/20 23:15 08/05/20 23:14 06/25/20 18:17 Insulin Aspart (NovoLOG) EVERY 6 HOURS SUBQ 06/29/20 00:00 09/27/20 00:00 07/10/20 05:36 Lansoprazole (Prevacid) 30 mg Q12HR GT 06/30/20 21:00 07/30/20 20:59 07/10/20 09:13 Levothyroxine Sodium (Synthroid) 88 mcg DAILY@06 GT 07/03/20 06:30 08/02/20 06:29 07/10/20 05:34 Vancomycin HCl (Vanco pharmacy to dose) 1 ea DAILY PRN MISC Per rx protocol 06/27/20 11:30 07/18/20 23:59 Laboratory Tests 07/09/20 12:03: POC Whole Blood Glucose 160H 07/09/20 17:33: POC Whole Blood Glucose 118H 07/09/20 22:57: POC Whole Blood Glucose 112H 07/10/20 03:10: White Blood Count 9.7, Red Blood Count 2.60L, Hemoglobin 7.7L, Hematocrit 23.4L, Mean Corpuscular Volume 90, Mean Corpuscular Hemoglobin 29.4, Mean Corpuscular Hemoglobin Concent 32.8, Red Cell Distribution Width 16.4H, Platelet Count 196, Mean Platelet Volume 8.3, Neutrophils (%) (Auto) , Lymphocytes (%) (Auto) , Monocytes (%) (Auto) , Eosinophils (%) (Auto) , Basophils (%) (Auto) , Differential Total Cells Counted 100, Neutrophils % (Manual) 66, Lymphocytes % (Manual) 9L, Monocytes % (Manual) 9, Eosinophils % (Manual) 16H, Basophils % (Manual) 0, Band Neutrophils 0, Nucleated Red Blood Cells , Platelet Estimate Adequate, Platelet Morphology Normal, Hypochromasia 1+, Anisocytosis 1+, Sodium Level 131L, Potassium Level 4.6, Chloride Level 99, Carbon Dioxide Level 28, Anion Gap 4L, Blood Urea Nitrogen 54H, Creatinine 3.2H, Estimat Glomerular Filtration Rate 24.7, Glucose Level 157H, Calcium Level 7.8L, Phosphorus Level 3.1, Magnesium Level 2.5H, Total Bilirubin 0.4, Aspartate Amino Transf (AST/SGOT) 61H, Alanine Aminotransferase (ALT/SGPT) 70, Alkaline Phosphatase 370H, C-Reactive Protein, Quantitative 11.8H, Pro-B-Type Natriuretic Peptide > 14900C, Total Protein 7.4, Albumin 1.4L, Globulin 6.0, Albumin/Globulin Ratio 0.2L, Random Vancomycin Level 19.8 07/10/20 04:49: POC Whole Blood Glucose 153H Height (Feet): 5 Height (Inches): 8.00 Weight (Pounds): 143 General Appearance: no apparent distress Neck: other - Trach to vent Cardiovascular: normal rate Respiratory/Chest: decreased breath sounds Abdomen: distended Leonidas Honeycutt MD Jul 10, 2020 10:42
[2020-07-10] MEDS: Gentamicin for inhalation INH SCH ×2 (10:48→22:58)
--- NOTE | 2020-07-10 10:54 | Pulmonology Progress Note ---
Subjective ROS Limited/Unobtainable: Yes Interval Events: FiO2 now 40%; Remains on vent. Constitutional: Denies: fever HEENT: Repors: no symptoms Respiratory: Reports: no symptoms Cardiovascular: Reports: no symptoms Gastrointestinal/Abdominal: Reports: diarrhea Genitourinary: Reports: no symptoms Psychiatric: Reports: other - off of restraint Allergies: Coded Allergies: No Known Allergies (Unverified , 06/13/20) All Systems: reviewed and negative except above Objective Last 24 Hour Vital Signs Date Time Temp Pulse Resp B/P (MAP) Pulse Ox O2 Delivery O2 Flow Rate FiO2 07/10/20 07:20 71 20 40 07/10/20 04:00 40 07/10/20 04:00 Mechanical Ventilator 07/10/20 03:50 98.0 85 22 141/76 (97) 98 07/10/20 03:31 74 07/10/20 03:00 78 20 40 07/10/20 00:00 40 07/10/20 00:00 Mechanical Ventilator 07/10/20 00:00 97.9 78 22 139/76 (97) 96 07/09/20 23:27 77 07/09/20 22:37 77 23 100 Mechanical Ventilator 40 76 23 40 07/09/20 20:00 97.5 81 22 152/77 (102) 97 07/09/20 20:00 Mechanical Ventilator 07/09/20 20:00 40 07/09/20 19:04 76 07/09/20 18:52 76 18 40 07/09/20 16:00 40 07/09/20 16:00 97.0 76 27 157/79 (105) 97 07/09/20 16:00 Mechanical Ventilator 07/09/20 15:14 75 07/09/20 15:00 89 18 40 07/09/20 12:00 Mechanical Ventilator 07/09/20 12:00 73 07/09/20 12:00 40 07/09/20 12:00 96.6 75 18 157/82 (107) 94 07/09/20 10:50 77 19 100 Mechanical Ventilator 40 80 20 40 Intake and Output 07/09/20 07/10/20 19:00 07:00 Intake Total 890 ml 750 ml Output Total 200 ml 450 ml Balance 690 ml 300 ml Free Water 50 ml 50 ml Tube Feeding 840 ml 700 ml Output Urine Total 200 ml 50 ml Stool Total 400 ml # Bowel Movements 1 General Appearance: no acute distress HEENT: status post trach Respiratory: chest wall non-tender, decreased breath sounds Cardiovascular: normal rate Abdomen: normal bowel sounds Extremities: no cyanosis Laboratory Tests 07/09/20 12:03: POC Whole Blood Glucose 160H 07/09/20 17:33: POC Whole Blood Glucose 118H 07/09/20 22:57: POC Whole Blood Glucose 112H 07/10/20 03:10: White Blood Count 9.7, Red Blood Count 2.60L, Hemoglobin 7.7L, Hematocrit 23.4L, Mean Corpuscular Volume 90, Mean Corpuscular Hemoglobin 29.4, Mean Corpuscular Hemoglobin Concent 32.8, Red Cell Distribution Width 16.4H, Platelet Count 196, Mean Platelet Volume 8.3, Neutrophils (%) (Auto) , Lymphocytes (%) (Auto) , Monocytes (%) (Auto) , Eosinophils (%) (Auto) , Basophils (%) (Auto) , Differential Total Cells Counted 100, Neutrophils % (Manual) 66, Lymphocytes % (Manual) 9L, Monocytes % (Manual) 9, Eosinophils % (Manual) 16H, Basophils % (Manual) 0, Band Neutrophils 0, Nucleated Red Blood Cells , Platelet Estimate Adequate, Platelet Morphology Normal, Hypochromasia 1+, Anisocytosis 1+, Sodium Level 131L, Potassium Level 4.6, Chloride Level 99, Carbon Dioxide Level 28, Anion Gap 4L, Blood Urea Nitrogen 54H, Creatinine 3.2H, Estimat Glomerular Filtration Rate 24.7, Glucose Level 157H, Calcium Level 7.8L, Phosphorus Level 3.1, Magnesium Level 2.5H, Total Bilirubin 0.4, Aspartate Amino Transf (AST/SGOT) 61H, Alanine Aminotransferase (ALT/SGPT) 70, Alkaline Phosphatase 3 70H, C-Reactive Protein, Quantitative 11.8H, Pro-B-Type Natriuretic Peptide > 05053Z, Total Protein 7.4, Albumin 1.4L, Globulin 6.0, Albumin/Globulin Ratio 0.2L, Random Vancomycin Level 19.8 07/10/20 04:49: POC Whole Blood Glucose 153H Current Medications Medications (Trade) Dose Ordered Sig/Maryjane Route PRN Reason Start Time Stop Time Status Last Admin Dose Admin Acetaminophen (Tylenol) 650 mg Q4H PRN GT Mild Pain (Pain Scale 1-3) 06/18/20 23:00 07/18/20 22:59 Acetaminophen (Tylenol) 650 mg Q4HR PRN GT FEVER 06/14/20 09:45 07/14/20 09:44 06/19/20 20:45 Aluminum Hydroxide (Amphojel) 1,920 mg Q6H GT 06/17/20 10:00 07/17/20 09:59 07/10/20 09:13 Ascorbic Acid (Vitamin C) 500 mg DAILY GT 07/01/20 09:00 07/31/20 08:59 07/10/20 09:12 Cefepime HCl 500 mg/Dextrose 55 ml @ 110 mls/hr Q24H IV 07/08/20 16:00 07/15/20 15:59 07/09/20 18:55 Chlorhexidine Gluconate (Inés-Hex 2%) 1 applic DAILY@1999 TOPIC 06/21/20 20:00 09/19/20 19:59 07/09/20 20:24 Dextrose (Dextrose 50%) 25 ml Q30M PRN IV Hypoglycemia 06/28/20 18:30 09/26/20 18:29 Dextrose (Dextrose 50%) 50 ml Q30M PRN IV Hypoglycemia 06/28/20 18:30 09/26/20 18:29 Epoetin Bonilla (Epoetin Bonilla(ESRD on dialysis)) 10,000 unit TUE-TUE-TUE SUBQ 07/02/20 21:00 09/16/20 20:59 07/09/20 20:23 Gentamicin Sulfate (Gentamicin vial) 300 mg Q12HR@10,22 INH 07/07/20 22:00 07/14/20 21:59 07/09/20 22:32 Haloperidol Lactate (Haldol) 5 mg Q6H PRN IM Agitation 06/21/20 23:15 08/05/20 23:14 06/25/20 18:17 Insulin Aspart (NovoLOG) EVERY 6 HOURS SUBQ 06/29/20 00:00 09/27/20 00:00 07/10/20 05:36 Lansoprazole (Prevacid) 30 mg Q12HR GT 06/30/20 21:00 07/30/20 20:59 07/10/20 09:13 Levothyroxine Sodium (Synthroid) 88 mcg DAILY@06 GT 07/03/20 06:30 08/02/20 06:29 07/10/20 05:34 Vancomycin HCl (Vanco pharmacy to dose) 1 ea DAILY PRN MISC Per rx protocol 06/27/20 11:30 07/18/20 23:59 Assessment/Plan Problems: (1) Acute respiratory failure Assessment/Plan IMPRESSION: 1. Chronic respiratory failure. 2. Hypoxemia. 3. Respiratory acidosis. 4. Anemia. 5. Leukocytosis. 6. DVT 7. S/p code blue 06/19/20 DISCUSSION: The patient's x-ray is markedly abnormal with bilateral infiltrates. I suspect he has pulmonary fibrosis. Latest CXR is unchanged to slightly improved COVID 19 pcr and antigen both negative No anticoagulation for DVT due to anemia S/p IVC filter placement Continue assist-control mechanical ventilation; currently FiO2 45%; SaO2 100%, broad-spectrum antibiotics. Transfusion as needed. Will continue PEEP to 8; S/p HD Will decrease FiO2 as tolerated S/p permacath Await placement I will follow carefully. Hugo Carl Omar Syed MD Jul 10, 2020 10:54
--- NOTE | 2020-07-10 11:04 | Surgery Progress Note ---
Surgery Progress Note Subjective Symptoms: improved, tolerating diet, passing flatus, BM Objective Last 24 Hour Vital Signs Date Time Temp Pulse Resp B/P (MAP) Pulse Ox O2 Delivery O2 Flow Rate FiO2 07/10/20 07:20 71 20 40 07/10/20 04:00 40 07/10/20 04:00 Mechanical Ventilator 07/10/20 03:50 98.0 85 22 141/76 (97) 98 07/10/20 03:31 74 07/10/20 03:00 78 20 40 07/10/20 00:00 40 07/10/20 00:00 Mechanical Ventilator 07/10/20 00:00 97.9 78 22 139/76 (97) 96 07/09/20 23:27 77 07/09/20 22:37 77 23 100 Mechanical Ventilator 40 76 23 40 07/09/20 20:00 97.5 81 22 152/77 (102) 97 07/09/20 20:00 Mechanical Ventilator 07/09/20 20:00 40 07/09/20 19:04 76 07/09/20 18:52 76 18 40 07/09/20 16:00 40 07/09/20 16:00 97.0 76 27 157/79 (105) 97 07/09/20 16:00 Mechanical Ventilator 07/09/20 15:14 75 07/09/20 15:00 89 18 40 07/09/20 12:00 Mechanical Ventilator 07/09/20 12:00 73 07/09/20 12:00 40 07/09/20 12:00 96.6 75 18 157/82 (107) 94 I&O Intake and Output 07/09/20 07/10/20 19:00 07:00 Intake Total 890 ml 750 ml Output Total 200 ml 450 ml Balance 690 ml 300 ml Free Water 50 ml 50 ml Tube Feeding 840 ml 700 ml Output Urine Total 200 ml 50 ml Stool Total 400 ml # Bowel Movements 1 Dressing: saturated Cardiovascular: RSR Respiratory: decreased breath sounds Abdomen: non-tender, present bowel sounds, non-distended Extremities: no tenderness, no cyanosis Laboratory Tests Test 07/09/20 12:03 07/09/20 17:33 07/09/20 22:57 07/10/20 03:10 POC Whole Blood Glucose 160 MG/DL (74-106) H 118 MG/DL (74-106) H 112 MG/DL (74-106) H White Blood Count 9.7 K/UL (4.8-10.8) Red Blood Count 2.60 M/UL (4.70-6.10) L Hemoglobin 7.7 G/DL (14.2-18.0) L Hematocrit 23.4 % (42.0-52.0) L Mean Corpuscular Volume 90 FL (80-99) Mean Corpuscular Hemoglobin 29.4 PG (27.0-31.0) Mean Corpuscular Hemoglobin Concent 32.8 G/DL (32.0-36.0) Red Cell Distribution Width 16.4 % (11.6-14.8) H Platelet Count 196 K/UL (150-450) Mean Platelet Volume 8.3 FL (6.5-10.1) Neutrophils (%) (Auto) % (45.0-75.0) Lymphocytes (%) (Auto) % (20.0-45.0) Monocytes (%) (Auto) % (1.0-10.0) Eosinophils (%) (Auto) % (0.0-3.0) Basophils (%) (Auto) % (0.0-2.0) Differential Total Cells Counted 100 Neutrophils % (Manual) 66 % (45-75) Lymphocytes % (Manual) 9 % (20-45) L Monocytes % (Manual) 9 % (1-10) Eosinophils % (Manual) 16 % (0-3) H Basophils % (Manual) 0 % (0-2) Band Neutrophils 0 % (0-8) Nucleated Red Blood Cells /100 WBC Platelet Estimate Adequate Platelet Morphology Normal Hypochromasia 1+ Anisocytosis 1+ Sodium Level 131 MMOL/L (136-145) L Potassium Level 4.6 MMOL/L (3.5-5.1) Chloride Level 99 MMOL/L (98-107) Carbon Dioxide Level 28 MMOL/L (21-32) Anion Gap 4 mmol/L (5-15) L Blood Urea Nitrogen 54 mg/dL (7-18) H Creatinine 3.2 MG/DL (0.55-1.30) H Estimat Glomerular Filtration Rate 24.7 mL/min (>60) Glucose Level 157 MG/DL (74-106) H Calcium Level 7.8 MG/DL (8.5-10.1) L Phosphorus Level 3.1 MG/DL (2.5-4.9) Magnesium Level 2.5 MG/DL (1.8-2.4) H Total Bilirubin 0.4 MG/DL (0.2-1.0) Aspartate Amino Transf (AST/SGOT) 61 U/L (15-37) H Alanine Aminotransferase (ALT/SGPT) 70 U/L (12-78) Alkaline Phosphatase 370 U/L (46-116) H C-Reactive Protein, Quantitative 11.8 mg/dL (0.00-0.90) H Pro-B-Type Natriuretic Peptide > 89962 pg/mL (0-125) H Total Protein 7.4 G/DL (6.4-8.2) Albumin 1.4 G/DL (3.4-5.0) L Globulin 6.0 g/dL Albumin/Globulin Ratio 0.2 (1.0-2.7) L Random Vancomycin Level 19.8 ug/mL Test 07/10/20 04:49 POC Whole Blood Glucose 153 MG/DL (74-106) H Plan Problems: (1) Leukocytosis Assessment & Plan: 54-year-old male multiple comorbidities admitted for abnormal chest x-ray potentially pneumonia leukocytosis abnormal labs. Patient identified to have a prior left BKA surgical sutures still in place as well as a surgical sacral wound with sutures in place. Considerations of dehiscence being identified and potential etiology of infection. After evaluation unlikely source of infection though the sacral wound was looked to be dehiscing at the inferior aspect. No acute surgical mention at this time We will discussed care plan with PCP Recommend follow-up with initial surgeon considerations of removal of surgical sutures Care plan initiated worsening lft's US ordered ? shayla monitor for bleeding from right chest wall cath change dressings Extensive airspace consolidations at the lung bases consistent with severe multifocal infiltrate. Associated, large bilateral pleural effusions. Evaluation of the abdominal viscera is markedly suboptimal due to poor CT technique and lack of intravenous contrast. No definite hepatic lesion. No definite cholelithiasis. Mild colon wall thickening. The spleen, pancreas, and adrenal glands are not visualized well enough reliable assessment. No definite hydronephrosis. The kidneys are hyperdense, correlate for medical renal disease. No nephrolithiasis. Sparrow catheter within a decompressed urinary bladder. Moderate diverticulosis, without acute diverticulitis. No small bowel obstruction. PEG tube presumably within the stomach. Atherosclerotic calcifications of the aorta. Low-attenuation of the intravascular blood pool, correlate for anemia. IVC filter, incidentally noted. Air within the subcutaneous fat overlying the sacrum with skin thickening, correlate with physical exam for sacral decubitus ulcer. Degenerative changes of the spine. Bilateral pars defects at L5 without anterolisthesis of L5 on S1. IMPRESSION: Extensive airspace consolidations at the lung bases consistent with severe multifocal infiltrate. Associated, large bilateral pleural effusions. Evaluation of the abdominal viscera is markedly suboptimal due to poor CT technique and lack of intravenous contrast. Moderate diverticulosis, without acute diverticulitis. No small bowel obstruction. PEG tube presumably within the stomach. Note, if there is suspicion for colitis consider repeat scan with improved CT technique/intravenous contrast. Mild gallbladder wall thickening without definite evidence of cholelithiasis. Air within the subcutaneous fat overlying the sacrum with skin thickening, correlate with physical exam for sacral decubitus ulcer. Bilateral pars defects at L5. The kidneys are hyperdense, correlate for medical renal disease.. There is prompt uptake within the liver with washout of radiotracer from the liver on subsequent imaging. There is excretion into the biliary ducts. Gallbladder activity is present in a timely fashion indicating patency of the cystic duct. Very scant bowel activity is demonstrated concerning for common bile duct obstruction or sphincter dysfunction. IMPRESSION: No evidence to suggest cholecystitis. Gallbladder activity is present in a timely fashion indicating patency of the cystic duct. Very little radiotracer noted in the small bowel. Correlate with LFTs as a degree of common bile duct obstruction or sphincter dysfunction not excluded. Consider further evaluation with MRCP. (2) Surgical wound dehiscence Assessment & Plan: Patient identified to have a left BKA surgical sutures in pl jorge flap looks like it is taken well no signs of infection at this time no signs of seroma hematoma or drainage. Unknown exact length or duration of potential prior left BKA and until then recommend leaving sutures in place as it may be too early though it does look well-healed. If able to obtain prior records we will be happy to remove sutures otherwise will need follow-up with primary surgeon furthermore patient identified to have a surgical wound in the sacral area seems he probably potentially had a stage IV sacral decubitus ulcer that had debridement and primary closure. Fortunately. Sutures are still in place and it looks like the inferior aspect may be slowly dehiscing. There is no significant drainage no foul odor no signs of active infection unknown if bone was palpable prior. Can consider removing surgical sutures but again would recommend obtaining prior records of possible prior to doing so. Also recommend following up with primary surgeon as this may need ongoing continued care. Will follow with recommendations and as information is available. Continue current care plan. Wash wounds daily with normal saline. Apply skin protectant Optifoam dressing. Turn every 2 hours. Offload pressure with pillows and air mattress. Nutritional optimization. Worsening leukocytosis. Patient continues to have dehiscence of the prior primarily closed sacral decubitus ulcer. The sutures are was nearly torn out and the wound is opening and saturating with stool with bowel movements now has rectal tube. Unfortunately I see significant concern given dehiscence and therefore sutures were cut at the bedside and wound immediately opened under some tension. Underlying Vicryl sutures identified. There is some backbleeding some granulation tissue but definitely no take or closure of the stage IV sacral decubitus ulcer that was identified. Nonexcisional debridement done with gauze and jorge layer of slough and biofilm was removed wound was cleaned packing dressings applied. No abscess no purulent drainage unlikely etiology of infection. (3) History of left below knee amputation (4) Malnutrition Assessment & Plan: DAILY ESTIMATED NEEDS: Needs based on Wound, critical care, underweight/ 55.5kg 25-33 (25-35 w/ HD) kcals/kg [id number] (0636-8125) total kcals 1.25-2 g protein/kg 69-111 g total protein 25-30 mL/kg 8675-5960 total fluid mLs NUTRITION DIAGNOSIS: * Swallowing difficulty R/T respiratory status as evidenced by pt is trach/vent dep, PEG dep. CURRENT TF: Nepro @ 40ml/hr x24 hrs ENTERAL NUTRITION RECOMMENDATIONS: Nepro @ 40ml/hr x 24 hrs to provide 960ml, 1728kcal, 78g prot, 698ml free water * Maintain current TF * HOB over 30 degrees/ water flush per MD ADDITIONAL RECOMMENDATIONS: * Per SNF: HT=69" MC=[id number] -> rec daily calibrated bedscale wt * Monitor lytes: elev K-> now wnl, phos now low * Wound healing: RANDY BID + Nephrovite 1 tab qdaily * Monitor for bm, last bm 06/19, now 06/24 * W/ HD rec to add Prosource 1 pack qdaily for added 11g pro/day. (5) Anemia (6) KERRI (acute kidney injury) (7) Acute respiratory failure (8) Hyperkalemia (9) Anemia (10) Abnormal laboratory test result (11) Chronic respiratory failure (12) Hyperglycemia (13) Hypothyroidism Azar Mares Jul 10, 2020 11:04
--- NOTE | 2020-07-10 11:11 | NUR ---
*-DISCHARGE PLANNING*-* S/W JUDI AT [facility], WILL CALL BACK AFTER HER TEAM REVIEWS AND WILL CALL BACK.
[2020-07-10 12:00] VITALS: BP 127/75
--- NOTE | 2020-07-10 12:56 | NUR ---
WOVEN BLIND LOOM TENDERIN FLIGHT REFUELING MANAGER SI: RESP FAILURE TRACH/VENT DEPENDENT,SEPSIS, RENAL FAILURE T. 98.0 HR 85 RR 22 B/P 141/72 AC 20 TV 500 FIO2 40% PEEP 5 H/H 7.4/25.4 NA 131 IS: VANCO IV CEFEPIME IV DCP TO [facility] PENDING AUTH STEP DOWN STATUS
--- NOTE | 2020-07-10 12:59 | NUR ---
RESEARCH PROFESSIONAL NOTES SPOKE WITH JUDI FROM [facility], PT ACCEPTED. PLACED A CALL TO [facility] MESSAGE LEFT FOR MABEL TO RETURN CALL. WILL FOLLOW UP.
[2020-07-10] MEDS ORDERED: Vancomycin 1 GM in NS 275 ML IVPB SCH (13:00)
--- NOTE | 2020-07-10 13:01 | NUR ---
[facility] NOTES CLINICALS REVIEWED AND FAXED.
[2020-07-10] MEDS ORDERED: NS 275ml ONE (14:58)
--- NOTE | 2020-07-10 15:41 | Cardiac Electrophysiology PN ---
Assessment/Plan Assessment/Plan 1. Vent-dependent respirator failure. S/P tracheostomy. On 50% Fio2 Chest x-ray extensive bilateral pneumonia or ARDS. Off isolation EF 50%. Ruled out for ID On iv Abx 2. Sinus Tachycardia, likely due to respiratory failure and sepsis 3. Right femoral vein DVT. S/P IVC filter 06/18 4. Dysphagia, status post PEG placement. 5. Renal failure. S/P Right IJ Iron and on HD by Dr. Honeycutt. 6. Severe anemia, S/P multiple PRBCs for hematuria 7. High LFTs, s/p CT abdomen and pelvis and HIDA FU Dr. Stringer 8. Transient bradycardia, resolved DW pbx installer pending Subjective Subjective On the Vent off isolation. On 45% Fio2 and PEEP 5. S/P IVC filter S/P Right IJ Iron and first HD 06/21/20 Had RN MANAGED CARE as HR dropped to 30 at 4 am 06/25/20 Got PRBC 06/27 and 06/28 S/P HD and PRBC 07/07/20. HD 1 liter yesterday Objective Last 24 Hour Vital Signs Date Time Temp Pulse Resp B/P (MAP) Pulse Ox O2 Delivery O2 Flow Rate FiO2 07/10/20 12:00 97.1 74 22 127/75 (92) 97 07/10/20 12:00 40 07/10/20 11:09 67 20 100 Mechanical Ventilator 40 69 20 40 07/10/20 08:00 40 07/10/20 08:00 Mechanical Ventilator 07/10/20 08:00 96.8 70 22 126/70 (88) 99 07/10/20 07:20 71 20 40 07/10/20 04:00 40 07/10/20 04:00 Mechanical Ventilator 07/10/20 03:50 98.0 85 22 141/76 (97) 98 07/10/20 03:31 74 07/10/20 03:00 78 20 40 07/10/20 00:00 40 07/10/20 00:00 Mechanical Ventilator 07/10/20 00:00 97.9 78 22 139/76 (97) 96 07/09/20 23:27 77 07/09/20 22:37 77 23 100 Mechanical Ventilator 40 76 23 40 07/09/20 20:00 97.5 81 22 152/77 (102) 97 07/09/20 20:00 Mechanical Ventilator 07/09/20 20:00 40 07/09/20 19:04 76 07/09/20 18:52 76 18 40 07/09/20 16:00 40 07/09/20 16:00 97.0 76 27 157/79 (105) 97 07/09/20 16:00 Mechanical Ventilator Intake and Output 07/09/20 07/10/20 19:00 07:00 Intake Total 890 ml 750 ml Output Total 200 ml 450 ml Balance 690 ml 300 ml Free Water 50 ml 50 ml Tube Feeding 840 ml 700 ml Output Urine Total 200 ml 50 ml Stool Total 400 ml # Bowel Movements 1 Laboratory Tests Test 07/09/20 17:33 07/09/20 22:57 07/10/20 03:10 07/10/20 04:49 POC Whole Blood Glucose 118 MG/DL (74-106) H 112 MG/DL (74-106) H 153 MG/DL (74-106) H White Blood Count 9.7 K/UL (4.8-10.8) Red Blood Count 2.60 M/UL (4.70-6.10) L Hemoglobin 7.7 G/DL (14.2-18.0) L Hematocrit 23.4 % (42.0-52.0) L Mean Corpuscular Volume 90 FL (80-99) Mean Corpuscular Hemoglobin 29.4 PG (27.0-31.0) Mean Corpuscular Hemoglobin Concent 32.8 G/DL (32.0-36.0) Red Cell Distribution Width 16.4 % (11.6-14.8) H Platelet Count 196 K/UL (150-450) Mean Platelet Volume 8.3 FL (6.5-10.1) Neutrophils (%) (Auto) % (45.0-75.0) Lymphocytes (%) (Auto) % (20.0-45.0) Monocytes (%) (Auto) % (1.0-10.0) Eosinophils (%) (Auto) % (0.0-3.0) Basophils (%) (Auto) % (0.0-2.0) Differential Total Cells Counted 100 Neutrophils % (Manual) 66 % (45-75) Lymphocytes % (Manual) 9 % (20-45) L Monocytes % (Manual) 9 % (1-10) Eosinophils % (Manual) 16 % (0-3) H Basophils % (Manual) 0 % (0-2) Band Neutrophils 0 % (0-8) Nucleated Red Blood Cells /100 WBC Platelet Estimate Adequate Platelet Morphology Normal Hypochromasia 1+ Anisocytosis 1+ Sodium Level 131 MMOL/L (136-145) L Potassium Level 4.6 MMOL/L (3.5-5.1) Chloride Level 99 MMOL/L (98-107) Carbon Dioxide Level 28 MMOL/L (21-32) Anion Gap 4 mmol/L (5-15) L Blood Urea Nitrogen 54 mg/dL (7-18) H Creatinine 3.2 MG/DL (0.55-1.30) H Estimat Glomerular Filtration Rate 24.7 mL/min (>60) Glucose Level 157 MG/DL (74-106) H Calcium Level 7.8 MG/DL (8.5-10.1) L Phosphorus Level 3.1 MG/DL (2.5-4.9) Magnesium Level 2.5 MG/DL (1.8-2.4) H Total Bilirubin 0.4 MG/DL (0.2-1.0) Aspartate Amino Transf (AST/SGOT) 61 U/L (15-37) H Alanine Aminotransferase (ALT/SGPT) 70 U/L (12-78) Alkaline Phosphatase 370 U/L (46-116) H C-Reactive Protein, Quantitative 11.8 mg/dL (0.00-0.90) H Pro-B-Type Natriuretic Peptide > 70995 pg/mL (0-125) H Total Protein 7.4 G/DL (6.4-8.2) Albumin 1.4 G/DL (3.4-5.0) L Globulin 6.0 g/dL Albumin/Globulin Ratio 0.2 (1.0-2.7) L Random Vancomycin Level 19.8 ug/mL Test 07/10/20 12:48 POC Whole Blood Glucose 117 MG/DL (74-106) H Objective HEAD AND NECK: Status post tracheostomy. Right IJ Iron in place LUNGS: Coarse rhonchi and basilar rales. CARDIOVASCULAR: Irregular S1 and S2 with no gallop. ABDOMEN: Soft. Status post G-tube. EXTREMITIES: No pitting edema. Lance Mcguire MD Jul 10, 2020 15:41
[2020-07-10 16:00] VITALS: BP 135/74
[2020-07-10] MEDS: Cefepime HCl 500 MG in D5W 55 ML IV SCH (16:53)
--- NOTE | 2020-07-10 17:31 | NUR ---
*-*DISCHARGE PLANNING*-* PATIENT WILL DISCHARGE TO [facility] TOMORROW 07/10/2020 ~~ PENDING ARNAVID, PENDING AUTH~~~~ GLUE SPECIALTY SUPERVISOR WILL SET TRANSPORTATION AFTER FACILITY GIVES ROOM ASSIGNMENT. Addendum: 07/10/20 at 1743 by MAURICE BOYD RN PT ACCEPTED TO [facility] PENDING AUTH FROM INSURANCE. WILL FOLLOW UP IN AM.
--- NOTE | 2020-07-10 18:47 | NUR ---
NURSE NOTES: Patient cleaned and dressings changed.
--- NOTE | 2020-07-10 19:16 | NUR ---
NURSE HAND-OFF REPORT: Important Events on Shift:[NA. DC planning awaiting insurance. patient Covid negative] Patient Status: [Full code] Diet: [Vital AF @70cc/hr] Pending Orders: [DC planning] Pending Results/Labs:[] Pending MD notification:[] Latest Vital Signs: Temperature 98.1 , Pulse 72 , B/P 135 /74 , Respiratory Rate 22 , O2 SAT 99 , Mechanical Ventilator, O2 Flow Rate 15.0 . Vital Sign Comment: [] EKG Rhythm: Sinus Rhythm Rhythm change?: N MD Notified?: Y -Dr. Mcguire and Dr. Ambika BENDER Response: No New Orders Received Latest Santiago Fall Score: 75 Fall Risk: High Risk Safety Measures: Call light Within Reach, Bed Alarm Zone 2, Side Rails Side Rails x2, Bed position Low and Locked. Fall Precautions: Yellow Gown Patient Fall Education Report given to [Ran, RN].
--- NOTE | 2020-07-10 19:44 | NUR ---
NURSE NOTES: Report received from MAX Calderon. Obseved pt lying in the bed, sleeping, arousable, appears to be tired. SR on shelter monitor. Trach to vent, Shiley 8, AC 18, TV 500, FIO2 40%, PEEP 5, tolerating, saturating at 96%. GT intact, Vital AF at 70cc/hr, tolerating. Rectal tube intact, brown liquid stool noted. F/C intact, emptied previous shift. R IJ non-tunnel cath noted, intact. IV on R H 22G, SL, asymptomatic. Bed in the lowest position. Side rails up x3. Bed alarm on. Will continue to monitor.
[2020-07-10 20:00] VITALS: BP 128/71
[2020-07-10] MEDS: Dyna-Hex 2% Top Sol 2oz TOPIC SCH (20:31)
[2020-07-10] MEDS: Acetaminophen 650mg/20.3ml GT PRN (20:33)
--- NOTE | 2020-07-10 21:17 | General Progress Note ---
Subjective ROS Limited/Unobtainable: Yes Allergies: Coded Allergies: No Known Allergies (Unverified , 06/13/20) Objective Last 24 Hour Vital Signs Date Time Temp Pulse Resp B/P (MAP) Pulse Ox O2 Delivery O2 Flow Rate FiO2 07/10/20 19:30 72 21 40 07/10/20 16:00 72 07/10/20 16:00 40 07/10/20 16:00 98.1 76 22 135/74 (94) 99 07/10/20 16:00 Mechanical Ventilator 07/10/20 15:20 72 24 40 07/10/20 12:00 97.1 74 22 127/75 (92) 97 07/10/20 12:00 40 07/10/20 12:00 Mechanical Ventilator 07/10/20 12:00 73 07/10/20 11:09 67 20 100 Mechanical Ventilator 40 69 20 40 07/10/20 08:00 40 07/10/20 08:00 69 07/10/20 08:00 Mechanical Ventilator 07/10/20 08:00 96.8 70 22 126/70 (88) 99 07/10/20 07:20 71 20 40 07/10/20 04:00 40 07/10/20 04:00 Mechanical Ventilator 07/10/20 03:50 98.0 85 22 141/76 (97) 98 07/10/20 03:31 74 07/10/20 03:00 78 20 40 07/10/20 00:00 40 07/10/20 00:00 Mechanical Ventilator 07/10/20 00:00 97.9 78 22 139/76 (97) 96 07/09/20 23:27 77 07/09/20 22:37 77 23 100 Mechanical Ventilator 40 76 23 40 Intake and Output 07/09/20 07/10/20 19:00 07:00 Intake Total 890 ml 750 ml Output Total 200 ml 450 ml Balance 690 ml 300 ml Free Water 50 ml 50 ml Tube Feeding 840 ml 700 ml Output Urine Total 200 ml 50 ml Stool Total 400 ml # Bowel Movements 1 Laboratory Tests 07/09/20 22:57: POC Whole Blood Glucose 112H 07/10/20 03:10: White Blood Count 9.7, Red Blood Count 2.60L, Hemoglobin 7.7L, Hematocrit 23.4L, Mean Corpuscular Volume 90, Mean Corpuscular Hemoglobin 29.4, Mean Corpuscular Hemoglobin Concent 32.8, Red Cell Distribution Width 16.4H, Platelet Count 196, Mean Platelet Volume 8.3, Neutrophils (%) (Auto) , Lymphocytes (%) (Auto) , Monocytes (%) (Auto) , Eosinophils (%) (Auto) , Basophils (%) (Auto) , Differential Total Cells Counted 100, Neutrophils % (Manual) 66, Lymphocytes % (Manual) 9L, Monocytes % (Manual) 9, Eosinophils % (Manual) 16H, Basophils % (Manual) 0, Band Neutrophils 0, Nucleated Red Blood Cells , Platelet Estimate Adequate, Platelet Morphology Normal, Hypochromasia 1+, Anisocytosis 1+, Sodium Level 131L, Potassium Level 4.6, Chloride Level 99, Carbon Dioxide Level 28, Anion Gap 4L, Blood Urea Nitrogen 54H, Creatinine 3.2H, Estimat Glomerular Filtration Rate 24.7, Glucose Level 157H, Calcium Level 7.8L, Phosphorus Level 3.1, Magnesium Level 2.5H, Total Bilirubin 0.4, Aspartate Amino Transf (AST/SGOT) 61H, Alanine Aminotransferase (ALT/SGPT) 70, Alkaline Phosphatase 370H, C-Reactive Protein, Quantitative 11.8H, Pro-B-Type Natriuretic Peptide > 85594N, Total Protein 7.4, Albumin 1.4L, Globulin 6.0, Albumin/Globulin Ratio 0.2L, Random Vancomycin Level 19.8 07/10/20 04:49: POC Whole Blood Glucose 153H 07/10/20 12:48: POC Whole Blood Glucose 117H 07/10/20 17:59: POC Whole Blood Glucose 164H Height (Feet): 5 Height (Inches): 8.00 Weight (Pounds): 143 Assessment/Plan Problem List: (1) Anemia ICD Codes: D64.9 - Anemia, unspecified SNOMED: 081420274 (2) KERRI (acute kidney injury) ICD Codes: N17.9 - Acute kidney failure, unspecified SNOMED: 8966147, 87859890 (3) Acute respiratory failure ICD Codes: J96.00 - Acute respiratory failure, unspecified whether with hypoxia or hypercapnia SNOMED: 12507093 Qualifiers: Qualified Codes: J96.02 - Acute respiratory failure with hypercapnia (4) Hyperkalemia ICD Codes: E87.5 - Hyperkalemia SNOMED: 29181111 (5) Abnormal laboratory test result ICD Codes: R89.9 - Unspecified abnormal finding in specimens from other organs, systems and tissues SNOMED: 849349231 (6) Anemia ICD Codes: D64.9 - Anemia, unspecified SNOMED: 394636357 Status: progressing Assessment/Plan: needs placement subacute where can do diaylsis as well s/p pulmonary edema pvc s/p acute mi Neida Apple MD Jul 10, 2020 21:17
--- NOTE | 2020-07-10 23:36 | General Progress Note ---
Subjective Allergies: Coded Allergies: No Known Allergies (Unverified , 06/13/20) Subjective above noted stools liquid, in rectal tube brown - small volume tolerating TF LFT still elevated but slowly declining all liver serologic w/u negative RD eval noted Albumin low Objective Last 24 Hour Vital Signs Date Time Temp Pulse Resp B/P (MAP) Pulse Ox O2 Delivery O2 Flow Rate FiO2 07/10/20 22:58 72 19 99 Mechanical Ventilator 40 74 19 40 07/10/20 20:00 40 07/10/20 20:00 Mechanical Ventilator 07/10/20 20:00 95.9 73 22 128/71 (90) 100 07/10/20 19:30 72 21 40 07/10/20 19:25 73 07/10/20 16:00 72 07/10/20 16:00 40 07/10/20 16:00 98.1 76 22 135/74 (94) 99 07/10/20 16:00 Mechanical Ventilator 07/10/20 15:20 72 24 40 07/10/20 12:00 97.1 74 22 127/75 (92) 97 07/10/20 12:00 40 07/10/20 12:00 Mechanical Ventilator 07/10/20 12:00 73 07/10/20 11:09 67 20 100 Mechanical Ventilator 40 69 20 40 07/10/20 08:00 40 07/10/20 08:00 69 07/10/20 08:00 Mechanical Ventilator 07/10/20 08:00 96.8 70 22 126/70 (88) 99 07/10/20 07:20 71 20 40 07/10/20 04:00 40 07/10/20 04:00 Mechanical Ventilator 07/10/20 03:50 98.0 85 22 141/76 (97) 98 07/10/20 03:31 74 07/10/20 03:00 78 20 40 07/10/20 00:00 40 07/10/20 00:00 Mechanical Ventilator 07/10/20 00:00 97.9 78 22 139/76 (97) 96 Intake and Output 07/09/20 07/10/20 19:00 07:00 Intake Total 890 ml 750 ml Output Total 200 ml 450 ml Balance 690 ml 300 ml Free Water 50 ml 50 ml Tube Feeding 840 ml 700 ml Output Urine Total 200 ml 50 ml Stool Total 400 ml # Bowel Movements 1 Laboratory Tests 07/10/20 03:10: White Blood Count 9.7, Red Blood Count 2.60L, Hemoglobin 7.7L, Hematocrit 23.4L, Mean Corpuscular Volume 90, Mean Corpuscular Hemoglobin 29.4, Mean Corpuscular Hemoglobin Concent 32.8, Red Cell Distribution Width 16.4H, Platelet Count 196, Mean Platelet Volume 8.3, Neutrophils (%) (Auto) , Lymphocytes (%) (Auto) , Monocytes (%) (Auto) , Eosinophils (%) (Auto) , Basophils (%) (Auto) , Differential Total Cells Counted 100, Neutrophils % (Manual) 66, Lymphocytes % (Manual) 9L, Monocytes % (Manual) 9, Eosinophils % (Manual) 16H, Basophils % (Manual) 0, Band Neutrophils 0, Nucleated Red Blood Cells , Platelet Estimate Adequate, Platelet Morphology Normal, Hypochromasia 1+, Anisocytosis 1+, Sodium Level 131L, Potassium Level 4.6, Chloride Level 99, Carbon Dioxide Level 28, Anion Gap 4L, Blood Urea Nitrogen 54H, Creatinine 3.2H, Estimat Glomerular Filtration Rate 24.7, Glucose Level 157H, Calcium Level 7.8L, Phosphorus Level 3.1, Magnesium Level 2.5H, Total Bilirubin 0.4, Aspartate Amino Transf (AST/SGOT) 61H, Alanine Aminotransferase (ALT/SGPT) 70, Alkaline Phosphatase 370H, C-Reactive Protein, Quantitative 11.8H, Pro-B-Type Natriuretic Peptide > 18786E, Total Protein 7.4, Albumin 1.4L, Globulin 6.0, Albumin/Globulin Ratio 0.2L, Random Vancomycin Level 19.8 07/10/20 04:49: POC Whole Blood Glucose 153H 07/10/20 12:48: POC Whole Blood Glucose 117H 07/10/20 17:59: POC Whole Blood Glucose 164H Height (Feet): 5 Height (Inches): 8.00 Weight (Pounds): 143 Objective Debilitated elderly man NCAT supple Coarse BS RRR abd sofft, flat, (+) GT s/p LLE BKA Assessment/Plan Status: progressing Assessment/Plan: Assessment Abnormal LFT - steadily improving (s/p US, CT, HIDA) - ? infectious hepatitis - Hep A and B negative - ? vascular - ? meds - ? other Gross hematuria - improved Acute anemia, ? urinary losses, ? GI loss ? surgical loss low platelet count low albumin - will increase TF rate Recommendations - f/u CMV PCR - Unable to have MRCP due to vent - continue to hold seroquel - follow LFT and CBC - no plans for GI w/u, per family discussion - TF - increase rate to give more Kcal and protein - Transfuse PRN Fco Stringer MD Jul 10, 2020 23:36
[2020-07-11] VITALS: BP 127/73
[2020-07-11] MEDS: NovoLOG Insulin Flexpen SUBQ SCH ×4 (00:25→17:06)
--- NOTE | 2020-07-11 01:24 | NUR ---
NURSE NOTES: Pt sleeping in the bed. SR noted. Tolerating vent setting. Tolerating feeding. No acute distress noted at this time. Safety measures done. Reposition done. Oral care given. Will continue to monitor.
[2020-07-11 04:00] VITALS: BP 127/75
[2020-07-11] MEDS: Aluminum Hydroxide Gel Susp 15ml GT SCH ×4 (04:44→21:13)
[2020-07-11 05:53] LABS: ALANINE AMINOTRANSFERASE 74 U/L (12-78); ALBUMIN 1.4 G/DL (3.4-5.0); ALBUMIN/GLOBULIN RATIO 0.2 (1.0-2.7); ALKALINE PHOSPHATASE 347 U/L (46-116); ANION GAP 5 mmol/L (5-15); ASPARTATE AMINO TRANSFERASE 72 U/L (15-37); BILIRUBIN,TOTAL 0.4 MG/DL (0.2-1.0); BLOOD UREA NITROGEN 66 mg/dL (7-18); CALCIUM 7.7 MG/DL (8.5-10.1); CARBON DIOXIDE 28 MMOL/L (21-32); CHLORIDE 100 MMOL/L (98-107); CHOLESTEROL 99 MG/DL (< 200); CREATININE 3.7 MG/DL (0.55-1.30); GAMMA GLUTAMYL TRANSPEPTIDASE 68 U/L (5-85); HDL CHOLESTEROL 37 MG/DL (40-60); PHOSPHORUS 3.4 MG/DL (2.5-4.9); POTASSIUM 4.9 MMOL/L (3.5-5.1); SODIUM 132 MMOL/L (136-145); TRIGLYCERIDES 17 MG/DL (30-150)
--- NOTE | 2020-07-11 06:40 | General Progress Note ---
Subjective ROS Limited/Unobtainable: Yes Allergies: Coded Allergies: No Known Allergies (Unverified , 06/13/20) Subjective events noted interval notes reviewed glucose values are stable TSH improved Item Value Date Time Bedside Blood Glucose 140 mg/dl H 07/11/20 0544 Bedside Blood Glucose 152 mg/dl H 07/11/20 0025 Bedside Blood Glucose 164 mg/dl H 07/10/20 1817 Bedside Blood Glucose 117 mg/dl 07/10/20 1200 Bedside Blood Glucose 153 mg/dl H 07/10/20 0536 Bedside Blood Glucose 112 mg/dl 07/09/20 2301 Objective Last 24 Hour Vital Signs Date Time Temp Pulse Resp B/P (MAP) Pulse Ox O2 Delivery O2 Flow Rate FiO2 07/11/20 04:00 73 07/11/20 04:00 96.5 75 22 127/75 (92) 98 07/11/20 04:00 40 07/11/20 04:00 Mechanical Ventilator 07/11/20 03:30 75 21 40 07/11/20 00:00 40 07/11/20 00:00 72 07/11/20 00:00 96.4 72 22 127/73 (91) 98 07/11/20 00:00 Mechanical Ventilator 07/10/20 22:58 72 19 99 Mechanical Ventilator 40 74 19 40 07/10/20 20:00 40 07/10/20 20:00 Mechanical Ventilator 07/10/20 20:00 95.9 73 22 128/71 (90) 100 07/10/20 19:30 72 21 40 07/10/20 19:25 73 07/10/20 16:00 72 07/10/20 16:00 40 07/10/20 16:00 98.1 76 22 135/74 (94) 99 07/10/20 16:00 Mechanical Ventilator 07/10/20 15:20 72 24 40 07/10/20 12:00 97.1 74 22 127/75 (92) 97 07/10/20 12:00 40 07/10/20 12:00 Mechanical Ventilator 07/10/20 12:00 73 07/10/20 11:09 67 20 100 Mechanical Ventilator 40 69 20 40 07/10/20 08:00 40 07/10/20 08:00 69 07/10/20 08:00 Mechanical Ventilator 07/10/20 08:00 96.8 70 22 126/70 (88) 99 07/10/20 07:20 71 20 40 Intake and Output 07/10/20 07/11/20 18:59 06:59 Intake Total 35 ml 860 ml Balance 35 ml 860 ml Free Water 160 ml Tube Feeding 35 ml 700 ml Laboratory Tests 07/10/20 12:48: POC Whole Blood Glucose 117H 07/10/20 17:59: POC Whole Blood Glucose 164H 07/11/20 03:30: Sodium Level 132L, Potassium Level 4.9, Chloride Level 100, Carbon Dioxide Level 28, Anion Gap 5, Blood Urea Nitrogen 66H, Creatinine 3.7H, Estimat Glomerular Filtration Rate 21.0, Glucose Level 123H, Osmolality [Pending], Uric Acid 3.2, Calcium Level 7.7L, Phosphorus Level 3.4, Magnesium Level 2.5H, Total Bilirubin 0.4, Gamma Glutamyl Transpeptidase 68, Aspartate Amino Transf (AST/SGOT) 72H, Alanine Aminotransferase (ALT/SGPT) 74, Alkaline Phosphatase 347H, C-Reactive Protein, Quantitative 10.4H, Pro-B-Type Natriuretic Peptide > 15927E, Total Protein 7.3, Albumin 1.4L, Globulin 5.9, Albumin/Globulin Ratio 0.2L, Triglycerides Level 17L, Cholesterol Level 99, LDL Cholesterol 52, HDL Cholesterol 37L, Cholesterol/HDL Ratio 2.7L, Thyroid Stimulating Hormone (TSH) 12.070H 07/11/20 05:19: POC Whole Blood Glucose 140H Height (Feet): 5 Height (Inches): 8.00 Weight (Pounds): 143 General Appearance: no apparent distress Cardiovascular: normal rate Respiratory/Chest: decreased breath sounds Abdomen: normal bowel sounds Objective Current Medications Medications (Trade) Dose Ordered Sig/Maryjane Route PRN Reason Start Time Stop Time Status Last Admin Dose Admin Acetaminophen (Tylenol) 650 mg Q4H PRN GT Mild Pain (Pain Scale 1-3) 06/18/20 23:00 07/18/20 22:59 Acetaminophen (Tylenol) 650 mg Q4HR PRN GT FEVER 06/14/20 09:45 07/14/20 09:44 07/10/20 20:33 Aluminum Hydroxide (Amphojel) 1,920 mg Q6H GT 06/17/20 10:00 07/17/20 09:59 07/11/20 04:44 Ascorbic Acid (Vitamin C) 500 mg DAILY GT 07/01/20 09:00 07/31/20 08:59 07/10/20 09:12 Cefepime HCl 500 mg/Dextrose 55 ml @ 110 mls/hr Q24H IV 07/08/20 16:00 07/15/20 15:59 07/10/20 16:53 Chlorhexidine Gluconate (Inés-Hex 2%) 1 applic DAILY@1999 TOPIC 06/21/20 20:00 09/19/20 19:59 07/10/20 20:31 Dextrose (Dextrose 50%) 25 ml Q30M PRN IV Hypoglycemia 06/28/20 18:30 09/26/20 18:29 Dextrose (Dextrose 50%) 50 ml Q30M PRN IV Hypoglycemia 06/28/20 18:30 09/26/20 18:29 Epoetin Bonilla (Epoetin Bonilla(ESRD on dialysis)) 10,000 unit TUE-TUE-TUE SUBQ 07/02/20 21:00 09/16/20 20:59 07/09/20 20:23 Gentamicin Sulfate (Gentamicin vial) 300 mg Q12HR@10,22 INH 07/07/20 22:00 07/14/20 21:59 07/10/20 22:58 Haloperidol Lactate (Haldol) 5 mg Q6H PRN IM Agitation 06/21/20 23:15 08/05/20 23:14 06/25/20 18:17 Insulin Aspart (NovoLOG) EVERY 6 HOURS SUBQ 06/29/20 00:00 09/27/20 00:00 07/11/20 00:25 Lansoprazole (Prevacid) 30 mg Q12HR GT 06/30/20 21:00 07/30/20 20:59 07/10/20 20:32 Levothyroxine Sodium (Synthroid) 88 mcg DAILY@0630 GT 07/03/20 06:30 08/02/20 06:29 07/11/20 06:25 Vancomycin HCl ([facility] pharmacy to dose) 1 ea DAILY PRN MISC Per rx protocol 06/27/20 11:30 07/18/20 23:59 Assessment/Plan Problem List: (1) History of left below knee amputation ICD Codes: Z89.512 - Acquired absence of left leg below knee SNOMED: 211353611, 511519959658093 (2) Surgical wound dehiscence ICD Codes: T81.31XA - Disruption of external operation (surgical) wound, not elsewhere classified, initial encounter SNOMED: 41075913 (3) Hyperkalemia ICD Codes: E87.5 - Hyperkalemia SNOMED: 76336753 (4) Acute respiratory failure ICD Codes: J96.00 - Acute respiratory failure, unspecified whether with hypoxia or hypercapnia SNOMED: 62548132 Qualifiers: Qualified Codes: J96.02 - Acute respiratory failure with hypercapnia (5) Hypothyroidism ICD Codes: E03.9 - Hypothyroidism, unspecified SNOMED: 31816728 (6) Hyperglycemia ICD Codes: R73.9 - Hyperglycemia, unspecified SNOMED: 71236352 Status: progressing Assessment/Plan: continue Levothyroxine 88 mcg daily - TSH improving repeat thyroid function in 1-2 weeks continue glucose monitoring Davy Ramos MD Jul 11, 2020 06:40
--- NOTE | 2020-07-11 07:11 | NUR ---
NURSE NOTES: Received report from MAX Christensen. Pt is asleep. Appears to be in no respiratory/cardiac distress. SpO2 98% on shiley 8, AC 18, TV 500, FiO2 40%, PEEP 8. SR on cardiac technologist. GT feeding currently on hold for synthroid administration. Will turn on in an hour. Rectal tube is intact and draining. Sparrow intact and draining well to gravity. R hand 22g asymptomatic and patent, saline lock. R IJ non-tunneled catheter intact. Skin issues noted. Fall and aspiration risk noted and reinforced. HOB elevated, bed alarms on, call light within reach, side rails x3, bed locked and in lowest position. Will continue to monitor. Will continue plan of care.
--- NOTE | 2020-07-11 07:13 | NUR ---
NURSE HAND-OFF REPORT: Important Events on Shift: No acute distress noted at this time. Patient Status: Diet: Vital AF at 70cc/hr. Pending Orders: [] Pending Results/Labs:[] Pending MD notification:[] Latest Vital Signs: Temperature 96.5 , Pulse 75 , B/P 127 /75 , Respiratory Rate 22 , O2 SAT 98 , Mechanical Ventilator, O2 Flow Rate 15.0 . Vital Sign Comment: [] EKG Rhythm: Sinus Rhythm Rhythm change?: N MD Notified?: Y -Dr. Mcguire and Dr. Ambika BENDER Response: No New Orders Received Latest Santiago Fall Score: 75 Fall Risk: High Risk Safety Measures: Call light Within Reach, Bed Alarm Zone 2, Side Rails Side Rails x2, Bed position Low and Locked. Fall Precautions: Yellow Gown Patient Fall Education Report given to MAX Bond.
[2020-07-11 08:00] VITALS: BP 134/77
--- NOTE | 2020-07-11 09:04 | Hematology/Onc Progress Note ---
Assessment/Plan Assessment/Plan ASSESSMENT AND PLAN: #. Anemia that is likely due to chronic disease, r/o gi bleeding --> anemia panel has been reviewed, ferritin is >2000 --> no e/o hemolysis is noted --> transfuse on prn basis --> blood consent has been signed --> hgb 7.4-->7.4-->7-->6.7-->8-->7.5-->8.4-->9.1->8.1-->5.6->7.4-->7-->6.6->8-->7.5--> 7.9->7.6-->7.7 --> folic acid is wnl --> 1 unit prbc 06/18 --> epogen has been started # Acute DVT in the distal right common femoral vein and profunda femoris vein. --> DUPLEX. Acute DVT in the distal right common femoral vein and profunda femoris vein. 2. No evidence of left lower extremity DVT. --> cannot anticoagulate at this time --> 06/17 s/p ivc filter placement --> hold off anticoag # Leukocytosis is likely due to b/l infiltrates --> on abx as per id -> ABX yolis/vanc-->yolis/linezolid--> yolis/levaq-->linezolid->vanc-->cefepime/gent --> continue trend --> wbc 15-->12->9.5-->13-->14 # Thrombocytopenia likely due to infection --> plt 82-->67->78 --> hep and hiv neg # Respiratory failure in this patient with vent-dependent respiratory failure. 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 # Dysphagia --> status post PEG placement. # Renal failure. -> per Dr. Honeycutt. # Hyperkalemia and kayxelate as needed. # Dvt ppx scds Appreciate consultation and angela RN Subjective Constitutional: Denies: no symptoms, chills, fever, malaise, weakness, other HEENT: Denies: no symptoms, eye pain, blurred vision, tearing, double vision, ear pain, ear discharge, nose pain, nose congestion, throat pain, throat swelling, mouth pain, mouth swelling, other Cardiovascular: Denies: no symptoms, chest pain, edema, irregular heart rate, lightheadedness, palpitations, syncope, other Gastrointestinal/Abdominal: Denies: no symptoms, abdomen distended, abdominal pain, black stools, tarry stools, blood in stool, constipated, diarrhea, difficulty swallowing, nausea, poor appetite, poor fluid intake, rectal bleeding, vomiting, other Genitourinary: Denies: no symptoms, burning, discharge, frequency, flank pain, hematuria, incontinence, pain, urgency, other Neurologic/Psychiatric: Denies: no symptoms, anxiety, depressed, emotional problems, headache, numbness, paresthesia, pre-existing deficit, seizure, tingling, tremors, weakness, other Endocrine: Denies: no symptoms, excessive sweating, flushing, intolerance to cold, intolerance to heat, increased hunger, increased thirst, increased urine, unexplained weight gain, unexplained weight loss, other Hematologic/Lymphatic: Denies: no symptoms, anemia, easy bleeding, easy bruising, adenopathy, other Allergies: Coded Allergies: No Known Allergies (Unverified , 06/13/20) Subjective 06/16 meds noted, labs reviewed, vent to trach, for ivc filter potentially 06/17 labs noted, meds reviewed, for ivc filter once covid neg 06/18 labs are noted, on vent and gt, 1 unit prbc ordered 06/19 labs pending, is s/p ivcf placement yesterday 06/20 for hd nontunneled cathter placement, no bleeding 06/22 labs noted, no bleeding, found down overnight, got ct brain, is neg 06/23 overnight is agitated and requiring restraints 06/24 labs noted, meds reviewed, hgb pending for am, restraints 06/25 labs reviewed, meds noted, no bleeding, hgb improved 06/26 per Rn, with rapid response overnight hr is improved, meds noted 06/27 labs reviewed, meds noted, no bleeding, hgb 5.6, wbc elevated, to get 2 unit prbc 06/29 on vanc, wbc 13, hgb 7.3, plt 88, on vanc 06/30 meds reviewed, hgb at 7, occult +, as per gi care, with diarrhea 07/01 plt 67, hgb 6.6, to get 2 units prbc, angela RN at bedside 07/02 RUC permacath reviewed, minimal bleeding, meds noted 07/03 gt feeds, meds noted, no bleeding, labs reviewed 07/04 awake, alert is on ivf, meds noted, labs reviewed 07/06 labs reviewed, meds noted, gt, watching tv 07/07 a+o x2, no bleeding, meds reviewed, no major changes 07/08 at bedside angela rn, on abx, labs pending for today, no bleeding 07/09 comfortable overnight, on vent, labs reviewed, abx 07/10 is comfortable, has been refusing care, on vent, labs noted 07/11 nad, is on vent, no bleeding, meds noted, no bleeding Objective Objective Current Medications Medications (Trade) Dose Ordered Sig/Maryjane Route PRN Reason Start Time Stop Time Status Last Admin Dose Admin Acetaminophen (Tylenol) 650 mg Q4H PRN GT Mild Pain (Pain Scale 1-3) 06/18/20 23:00 07/18/20 22:59 Acetaminophen (Tylenol) 650 mg Q4HR PRN GT FEVER 06/14/20 09:45 07/14/20 09:44 07/10/20 20:33 Aluminum Hydroxide (Amphojel) 1,920 mg Q6H GT 06/17/20 10:00 07/17/20 09:59 07/11/20 04:44 Ascorbic Acid (Vitamin C) 500 mg DAILY GT 07/01/20 09:00 07/31/20 08:59 07/10/20 09:12 Cefepime HCl 500 mg/Dextrose 55 ml @ 110 mls/hr Q24H IV 07/08/20 16:00 07/15/20 15:59 07/10/20 16:53 Chlorhexidine Gluconate (Inés-Hex 2%) 1 applic DAILY@1999 TOPIC 06/21/20 20:00 09/19/20 19:59 07/10/20 20:31 Dextrose (Dextrose 50%) 25 ml Q30M PRN IV Hypoglycemia 06/28/20 18:30 09/26/20 18:29 Dextrose (Dextrose 50%) 50 ml Q30M PRN IV Hypoglycemia 06/28/20 18:30 09/26/20 18:29 Epoetin Bonilla (Epoetin Bonilla(ESRD on dialysis)) 10,000 unit TUE-TUE-TUE SUBQ 07/02/20 21:00 09/16/20 20:59 07/09/20 20:23 Gentamicin Sulfate (Gentamicin vial) 300 mg Q12HR@10,22 INH 07/07/20 22:00 07/14/20 21:59 07/10/20 22:58 Haloperidol Lactate (Haldol) 5 mg Q6H PRN IM Agitation 06/21/20 23:15 08/05/20 23:14 06/25/20 18:17 Insulin Aspart (NovoLOG) EVERY 6 HOURS SUBQ 06/29/20 00:00 09/27/20 00:00 07/11/20 00:25 Lansoprazole (Prevacid) 30 mg Q12HR GT 06/30/20 21:00 07/30/20 20:59 07/10/20 20:32 Levothyroxine Sodium (Synthroid) 88 mcg DAILY@0630 GT 07/03/20 06:30 08/02/20 06:29 07/11/20 06:25 Vancomycin HCl ([facility] pharmacy to dose) 1 ea DAILY PRN MISC Per rx protocol 06/27/20 11:30 07/18/20 23:59 Last 24 Hour Vital Signs Date Time Temp Pulse Resp B/P (MAP) Pulse Ox O2 Delivery O2 Flow Rate FiO2 07/11/20 08:00 Mechanical Ventilator 07/11/20 08:00 40 07/11/20 08:00 95.9 73 22 134/77 (96) 99 07/11/20 07:42 71 07/11/20 07:05 71 20 40 07/11/20 04:00 73 07/11/20 04:00 96.5 75 22 127/75 (92) 98 07/11/20 04:00 40 07/11/20 04:00 Mechanical Ventilator 07/11/20 03:30 75 21 40 07/11/20 00:00 40 07/11/20 00:00 72 07/11/20 00:00 96.4 72 22 127/73 (91) 98 07/11/20 00:00 Mechanical Ventilator 07/10/20 22:58 72 19 99 Mechanical Ventilator 40 74 19 40 07/10/20 20:00 40 07/10/20 20:00 Mechanical Ventilator 07/10/20 20:00 95.9 73 22 128/71 (90) 100 07/10/20 19:30 72 21 40 07/10/20 19:25 73 07/10/20 16:00 72 07/10/20 16:00 40 07/10/20 16:00 98.1 76 22 135/74 (94) 99 07/10/20 16:00 Mechanical Ventilator 07/10/20 15:20 72 24 40 07/10/20 12:00 97.1 74 22 127/75 (92) 97 07/10/20 12:00 40 07/10/20 12:00 Mechanical Ventilator 07/10/20 12:00 73 07/10/20 11:09 67 20 100 Mechanical Ventilator 40 69 20 40 07/10/20 08:00 40 07/10/20 08:00 69 07/10/20 08:00 Mechanical Ventilator 07/10/20 08:00 96.8 70 22 126/70 (88) 99 07/10/20 07:20 71 20 40 07/10/20 04:00 40 07/10/20 04:00 Mechanical Ventilator 07/10/20 03:50 98.0 85 22 141/76 (97) 98 07/10/20 03:31 74 07/10/20 03:00 78 20 40 07/10/20 00:00 40 07/10/20 00:00 Mechanical Ventilator 07/10/20 00:00 97.9 78 22 139/76 (97) 96 07/09/20 23:27 77 07/09/20 22:37 77 23 100 Mechanical Ventilator 40 76 23 40 07/09/20 20:00 97.5 81 22 152/77 (102) 97 07/09/20 20:00 Mechanical Ventilator 07/09/20 20:00 40 07/09/20 19:04 76 07/09/20 18:52 76 18 40 07/09/20 16:00 40 07/09/20 16:00 97.0 76 27 157/79 (105) 97 07/09/20 16:00 Mechanical Ventilator 07/09/20 15:14 75 07/09/20 15:00 89 18 40 07/09/20 12:00 Mechanical Ventilator 07/09/20 12:00 73 07/09/20 12:00 40 07/09/20 12:00 96.6 75 18 157/82 (107) 94 07/09/20 10:50 77 19 100 Mechanical Ventilator 40 80 20 40 Intake and Output 07/10/20 07/11/20 19:00 07:00 Intake Total 120 ml 740 ml Output Total 400 ml Balance 120 ml 340 ml Free Water 50 ml 110 ml Tube Feeding 70 ml 630 ml Output Urine Total 300 ml Stool Total 100 ml Labs Test 07/08/20 12:22 07/08/20 17:02 07/08/20 22:43 07/09/20 03:10 POC Whole Blood Glucose 134 MG/DL (74-106) 138 MG/DL (74-106) White Blood Count 9.8 K/UL (4.8-10.8) Red Blood Count 2.61 M/UL (4.70-6.10) Hemoglobin 7.6 G/DL (14.2-18.0) Hematocrit 23.0 % (42.0-52.0) Mean Corpuscular Volume 88 FL (80-99) Mean Corpuscular Hemoglobin 29.3 PG (27.0-31.0) Mean Corpuscular Hemoglobin Concent 33.3 G/DL (32.0-36.0) Red Cell Distribution Width 17.0 % (11.6-14.8) Platelet Count 185 K/UL (150-450) Mean Platelet Volume 8.6 FL (6.5-10.1) Neutrophils (%) (Auto) % (45.0-75.0) Lymphocytes (%) (Auto) % (20.0-45.0) Monocytes (%) (Auto) % (1.0-10.0) Eosinophils (%) (Auto) % (0.0-3.0) Basophils (%) (Auto) % (0.0-2.0) Sodium Level 131 MMOL/L (136-145) Potassium Level 4.8 MMOL/L (3.5-5.1) Chloride Level 97 MMOL/L (98-107) Carbon Dioxide Level 30 MMOL/L (21-32) Anion Gap 4 mmol/L (5-15) Blood Urea Nitrogen 68 mg/dL (7-18) Creatinine 3.8 MG/DL (0.55-1.30) Estimat Glomerular Filtration Rate 20.2 mL/min (>60) Glucose Level 118 MG/DL (74-106) Calcium Level 8.1 MG/DL (8.5-10.1) Test 07/09/20 04:45 07/09/20 12:03 07/09/20 17:33 07/09/20 22:57 POC Whole Blood Glucose 124 MG/DL (74-106) 160 MG/DL (74-106) 118 MG/DL (74-106) 112 MG/DL (74-106) Test 07/10/20 03:10 07/10/20 04:49 07/10/20 12:48 07/10/20 17:59 White Blood Count 9.7 K/UL (4.8-10.8) Red Blood Count 2.60 M/UL (4.70-6.10) Hemoglobin 7.7 G/DL (14.2-18.0) Hematocrit 23.4 % (42.0-52.0) Mean Corpuscular Volume 90 FL (80-99) Mean Corpuscular Hemoglobin 29.4 PG (27.0-31.0) Mean Corpuscular Hemoglobin Concent 32.8 G/DL (32.0-36.0) Red Cell Distribution Width 16.4 % (11.6-14.8) Platelet Count 196 K/UL (150-450) Mean Platelet Volume 8.3 FL (6.5-10.1) Neutrophils (%) (Auto) % (45.0-75.0) Lymphocytes (%) (Auto) % (20.0-45.0) Monocytes (%) (Auto) % (1.0-10.0) Eosinophils (%) (Auto) % (0.0-3.0) Basophils (%) (Auto) % (0.0-2.0) Differential Total Cells Counted 100 Neutrophils % (Manual) 66 % (45-75) Lymphocytes % (Manual) 9 % (20-45) Monocytes % (Manual) 9 % (1-10) Eosinophils % (Manual) 16 % (0-3) Basophils % (Manual) 0 % (0-2) Band Neutrophils 0 % (0-8) Nucleated Red Blood Cells /100 WBC Platelet Estimate Adequate Platelet Morphology Normal Hypochromasia 1+ Anisocytosis 1+ Sodium Level 131 MMOL/L (136-145) Potassium Level 4.6 MMOL/L (3.5-5.1) Chloride Level 99 MMOL/L (98-107) Carbon Dioxide Level 28 MMOL/L (21-32) Anion Gap 4 mmol/L (5-15) Blood Urea Nitrogen 54 mg/dL (7-18) Creatinine 3.2 MG/DL (0.55-1.30) Estimat Glomerular Filtration Rate 24.7 mL/min (>60) Glucose Level 157 MG/DL (74-106) Calcium Level 7.8 MG/DL (8.5-10.1) Phosphorus Level 3.1 MG/DL (2.5-4.9) Magnesium Level 2.5 MG/DL (1.8-2.4) Total Bilirubin 0.4 MG/DL (0.2-1.0) Aspartate Amino Transf (AST/SGOT) 61 U/L (15-37) Alanine Aminotransferase (ALT/SGPT) 70 U/L (12-78) Alkaline Phosphatase 370 U/L (46-116) C-Reactive Protein, Quantitative 11.8 mg/dL (0.00-0.90) Pro-B-Type Natriuretic Peptide > 90328 pg/mL (0-125) Total Protein 7.4 G/DL (6.4-8.2) Albumin 1.4 G/DL (3.4-5.0) Globulin 6.0 g/dL Albumin/Globulin Ratio 0.2 (1.0-2.7) Random Vancomycin Level 19.8 ug/mL POC Whole Blood Glucose 153 MG/DL (74-106) 117 MG/DL (74-106) 164 MG/DL (74-106) Test 07/11/20 03:30 07/11/20 05:19 Sodium Level 132 MMOL/L (136-145) Potassium Level 4.9 MMOL/L (3.5-5.1) Chloride Level 100 MMOL/L (98-107) Carbon Dioxide Level 28 MMOL/L (21-32) Anion Gap 5 mmol/L (5-15) Blood Urea Nitrogen 66 mg/dL (7-18) Creatinine 3.7 MG/DL (0.55-1.30) Estimat Glomerular Filtration Rate 21.0 mL/min (>60) Glucose Level 123 MG/DL (74-106) Osmolality 305 mOsm/kg (297-317) Uric Acid 3.2 MG/DL (2.6-7.2) Calcium Level 7.7 MG/DL (8.5-10.1) Phosphorus Level 3.4 MG/DL (2.5-4.9) Magnesium Level 2.5 MG/DL (1.8-2.4) Total Bilirubin 0.4 MG/DL (0.2-1.0) Gamma Glutamyl Transpeptidase 68 U/L (5-85) Aspartate Amino Transf (AST/SGOT) 72 U/L (15-37) Alanine Aminotransferase (ALT/SGPT) 74 U/L (12-78) Alkaline Phosphatase 347 U/L (46-116) C-Reactive Protein, Quantitative 10.4 mg/dL (0.00-0.90) Pro-B-Type Natriuretic Peptide > 30042 pg/mL (0-125) Total Protein 7.3 G/DL (6.4-8.2) Albumin 1.4 G/DL (3.4-5.0) Globulin 5.9 g/dL Albumin/Globulin Ratio 0.2 (1.0-2.7) Triglycerides Level 17 MG/DL (30-150) Cholesterol Level 99 MG/DL (< 200) LDL Cholesterol 52 mg/dL (<100) HDL Cholesterol 37 MG/DL (40-60) Cholesterol/HDL Ratio 2.7 (3.3-4.4) Thyroid Stimulating Hormone (TSH) 12.070 uiU/mL (0.358-3.740) POC Whole Blood Glucose 140 MG/DL (74-106) Micro Microbiology Date/Time Source Procedure Growth Status 07/10/20 16:50 Nasopharynx SARS-CoV-2 RdRp Gene Assay - Final Complete Height (Feet): 5 Height (Inches): 8.00 Weight (Pounds): 143 Objective PHYSICAL EXAMINATION: VITAL SIGNS: reviewed HEAD AND NECK: Show status post tracheostomy. vent+ LUNGS: Coarse rhonchi and basilar rales. CARDIOVASCULAR: Shows irregular S1 and S2 with no gallop. ABDOMEN: Soft. Status post G-tube. EXTREMITIES: No pitting edema.++Left Jose Epperson MD Jul 11, 2020 09:04
[2020-07-11] MEDS: Ascorbic Acid 500mg tab GT SCH (09:08)
--- NOTE | 2020-07-11 09:30 | NUR ---
NURSE NOTES: Dr. Tan made aware of patient's hemoglobin level of 7.7 on 07/10/[address] Apple order to discharge today to SNF. Dr. Tan acknowledged and ordered to have 1 unit of PRBC transfused today prior to discharge. Patient may be discharged after 1 unit PRBC transfusion.
--- NOTE | 2020-07-11 10:00 | NUR ---
NURSE NOTES: Made Dr. Honeycutt aware that patient has discharge order today per Dr. Apple. Per Dr. Honeycutt patient is okay to be discharge with permacath. Patient may be discharged today. Noted. Will continue to monitor patient.
--- NOTE | 2020-07-11 10:14 | Pulmonology Progress Note ---
Subjective ROS Limited/Unobtainable: Yes Interval Events: FiO2 now 40%; Remains on vent. Constitutional: Denies: fever HEENT: Repors: no symptoms Respiratory: Reports: no symptoms Cardiovascular: Reports: no symptoms Gastrointestinal/Abdominal: Reports: diarrhea Genitourinary: Reports: no symptoms Psychiatric: Reports: other - off of restraint Allergies: Coded Allergies: No Known Allergies (Unverified , 06/13/20) All Systems: reviewed and negative except above Objective Last 24 Hour Vital Signs Date Time Temp Pulse Resp B/P (MAP) Pulse Ox O2 Delivery O2 Flow Rate FiO2 07/11/20 08:00 Mechanical Ventilator 07/11/20 08:00 40 07/11/20 08:00 95.9 73 22 134/77 (96) 99 07/11/20 07:42 71 07/11/20 07:05 71 20 40 07/11/20 04:00 73 07/11/20 04:00 96.5 75 22 127/75 (92) 98 07/11/20 04:00 40 07/11/20 04:00 Mechanical Ventilator 07/11/20 03:30 75 21 40 07/11/20 00:00 40 07/11/20 00:00 72 07/11/20 00:00 96.4 72 22 127/73 (91) 98 07/11/20 00:00 Mechanical Ventilator 07/10/20 22:58 72 19 99 Mechanical Ventilator 40 74 19 40 07/10/20 20:00 40 07/10/20 20:00 Mechanical Ventilator 07/10/20 20:00 95.9 73 22 128/71 (90) 100 07/10/20 19:30 72 21 40 07/10/20 19:25 73 07/10/20 16:00 72 07/10/20 16:00 40 07/10/20 16:00 98.1 76 22 135/74 (94) 99 07/10/20 16:00 Mechanical Ventilator 07/10/20 15:20 72 24 40 07/10/20 12:00 97.1 74 22 127/75 (92) 97 07/10/20 12:00 40 07/10/20 12:00 Mechanical Ventilator 07/10/20 12:00 73 07/10/20 11:09 67 20 100 Mechanical Ventilator 40 69 20 40 Intake and Output 07/10/20 07/11/20 19:00 07:00 Intake Total 120 ml 740 ml Output Total 400 ml Balance 120 ml 340 ml Free Water 50 ml 110 ml Tube Feeding 70 ml 630 ml Output Urine Total 300 ml Stool Total 100 ml General Appearance: no acute distress HEENT: status post trach Respiratory: chest wall non-tender, decreased breath sounds Cardiovascular: normal rate Abdomen: normal bowel sounds Extremities: no cyanosis Microbiology Date/Time Source Procedure Growth Status 07/10/20 16:50 Nasopharynx SARS-CoV-2 RdRp Gene Assay - Final Complete Laboratory Tests 07/10/20 12:48: POC Whole Blood Glucose 117H 07/10/20 17:59: POC Whole Blood Glucose 164H 07/11/20 03:30: Sodium Level 132L, Potassium Level 4.9, Chloride Level 100, Carbon Dioxide Level 28, Anion Gap 5, Blood Urea Nitrogen 66H, Creatinine 3.7H, Estimat Glomerular Filtration Rate 21.0, Glucose Level 123H, Osmolality 305, Uric Acid 3.2, Calcium Level 7.7L, Phosphorus Level 3.4, Magnesium Level 2.5H, Total Bilirubin 0.4, Gamma Glutamyl Transpeptidase 68, Aspartate Amino Transf (AST/SGOT) 72H, Alanine Aminotransferase (ALT/SGPT) 74, Alkaline Phosphatase 347H, C-Reactive Protein, Quantitative 10.4H, Pro-B-Type Natriuretic Peptide > 88228G, Total Protein 7.3, Albumin 1.4L, Globulin 5.9, Albumin/Globulin Ratio 0.2L, Triglycerides Level 17L , Cholesterol Level 99, LDL Cholesterol 52, HDL Cholesterol 37L, Cholesterol/HDL Ratio 2.7L, Thyroid Stimulating Hormone (TSH) 12.070H 07/11/20 05:19: POC Whole Blood Glucose 140H Current Medications Medications (Trade) Dose Ordered Sig/Maryjane Route PRN Reason Start Time Stop Time Status Last Admin Dose Admin Acetaminophen (Tylenol) 650 mg Q4H PRN GT Mild Pain (Pain Scale 1-3) 06/18/20 23:00 07/18/20 22:59 Acetaminophen (Tylenol) 650 mg Q4HR PRN GT FEVER 06/14/20 09:45 07/14/20 09:44 07/10/20 20:33 Aluminum Hydroxide (Amphojel) 1,920 mg Q6H GT 06/17/20 10:00 07/17/20 09:59 07/11/20 09:09 Ascorbic Acid (Vitamin C) 500 mg DAILY GT 07/01/20 09:00 07/31/20 08:59 07/11/20 09:08 Cefepime HCl 500 mg/Dextrose 55 ml @ 110 mls/hr Q24H IV 07/08/20 16:00 07/15/20 15:59 07/10/20 16:53 Chlorhexidine Gluconate (Inés-Hex 2%) 1 applic DAILY@1999 TOPIC 06/21/20 20:00 09/19/20 19:59 07/10/20 20:31 Dextrose (Dextrose 50%) 25 ml Q30M PRN IV Hypoglycemia 06/28/20 18:30 09/26/20 18:29 Dextrose (Dextrose 50%) 50 ml Q30M PRN IV Hypoglycemia 06/28/20 18:30 09/26/20 18:29 Epoetin Bonilla (Epoetin Bonilla(ESRD on dialysis)) 10,000 unit TUE-TUE-TUE SUBQ 07/02/20 21:00 09/16/20 20:59 07/09/20 20:23 Gentamicin Sulfate (Gentamicin vial) 300 mg Q12HR@10,22 INH 07/07/20 22:00 07/14/20 21:59 07/10/20 22:58 Haloperidol Lactate (Haldol) 5 mg Q6H PRN IM Agitation 06/21/20 23:15 08/05/20 23:14 06/25/20 18:17 Insulin Aspart (NovoLOG) EVERY 6 HOURS SUBQ 06/29/20 00:00 09/27/20 00:00 07/11/20 00:25 Lansoprazole (Prevacid) 30 mg Q12HR GT 06/30/20 21:00 07/30/20 20:59 07/11/20 09:08 Levothyroxine Sodium (Synthroid) 88 mcg DAILY@0630 GT 07/03/20 06:30 08/02/20 06:29 07/11/20 06:25 Vancomycin HCl ([facility] pharmacy to dose) 1 ea DAILY PRN MISC Per rx protocol 06/27/20 11:30 07/18/20 23:59 Assessment/Plan Problems: (1) Acute respiratory failure Assessment/Plan IMPRESSION: 1. Chronic respiratory failure. 2. Hypoxemia. 3. Respiratory acidosis. 4. Anemia. 5. Leukocytosis. 6. DVT 7. S/p code blue 06/19/20 DISCUSSION: The patient's x-ray is markedly abnormal with bilateral infiltrates. I suspect he has pulmonary fibrosis. Latest CXR is unchanged to slightly improved COVID 19 pcr and antigen both negative No anticoagulation for DVT due to anemia S/p IVC filter placement Continue assist-control mechanical ventilation; currently FiO2 45%; SaO2 100%, broad-spectrum antibiotics. Transfusion as needed. Will continue PEEP to 8; S/p HD Will decrease FiO2 as tolerated S/p permacath Await placement I will follow carefully. Sylvester Garcia M.D. Sylvester Garcia MD Jul 11, 2020 10:14
--- NOTE | 2020-07-11 10:24 | Infectious Diseases Prog Note ---
Assessment/Plan Assessment/Plan IMPRESSION: Pneumonia with Pseudomonas & Providencia Hypothermia COVID19 X 2: negative Ventilator-dependent respiratory failure, Diabetes mellitus type 2, Hypertension, History of left BKA, Hypertension, anemia, Major depression, Pressure ulcer, Elevated transaminase, Hyperkalemia. Anemia R leg DVT s/p IVC filter Sacral osteomyelitis Severe anemia Acute renal failure ESRD Hypercapnic respiratory failure Hematuria Thrombocytopenia Diverticulosis Diarrhea, C. difficile negative RECOMMENDATION: Continue Vancomycin until 07/18 Continue Cefepime & Gentamicin inhaler X 2 days Case was D/W RN Agree with discharge Subjective ROS Limited/Unobtainable: Yes Constitutional: Denies: fever Allergies: Coded Allergies: No Known Allergies (Unverified , 06/13/20) Objective Last 24 Hour Vital Signs Date Time Temp Pulse Resp B/P (MAP) Pulse Ox O2 Delivery O2 Flow Rate FiO2 07/11/20 08:00 Mechanical Ventilator 07/11/20 08:00 40 07/11/20 08:00 95.9 73 22 134/77 (96) 99 07/11/20 07:42 71 07/11/20 07:05 71 20 40 07/11/20 04:00 73 07/11/20 04:00 96.5 75 22 127/75 (92) 98 07/11/20 04:00 40 07/11/20 04:00 Mechanical Ventilator 07/11/20 03:30 75 21 40 07/11/20 00:00 40 07/11/20 00:00 72 07/11/20 00:00 96.4 72 22 127/73 (91) 98 07/11/20 00:00 Mechanical Ventilator 07/10/20 22:58 72 19 99 Mechanical Ventilator 40 74 19 40 07/10/20 20:00 40 07/10/20 20:00 Mechanical Ventilator 07/10/20 20:00 95.9 73 22 128/71 (90) 100 07/10/20 19:30 72 21 40 07/10/20 19:25 73 07/10/20 16:00 72 07/10/20 16:00 40 07/10/20 16:00 98.1 76 22 135/74 (94) 99 07/10/20 16:00 Mechanical Ventilator 07/10/20 15:20 72 24 40 07/10/20 12:00 97.1 74 22 127/75 (92) 97 07/10/20 12:00 40 07/10/20 12:00 Mechanical Ventilator 07/10/20 12:00 73 07/10/20 11:09 67 20 100 Mechanical Ventilator 40 69 20 40 Height (Feet): 5 Height (Inches): 8.00 Weight (Pounds): 143 HEENT: status post trach Respiratory/Chest: lungs clear, other - on ventilator Cardiovascular: normal rate, other - R permacath Abdomen: soft, non tender, other - GT & rectal tubes Skin: other - sacral stage 4 ulcer Neurologic/Psychiatric: other - drowsy Microbiology Date/Time Source Procedure Growth Status 07/10/20 16:50 Nasopharynx SARS-CoV-2 RdRp Gene Assay - Final Complete Laboratory Tests Test 07/10/20 12:48 07/10/20 17:59 07/11/20 03:30 07/11/20 05:19 POC Whole Blood Glucose 117 MG/DL (74-106) H 164 MG/DL (74-106) H 140 MG/DL (74-106) H Sodium Level 132 MMOL/L (136-145) L Potassium Level 4.9 MMOL/L (3.5-5.1) Chloride Level 100 MMOL/L (98-107) Carbon Dioxide Level 28 MMOL/L (21-32) Anion Gap 5 mmol/L (5-15) Blood Urea Nitrogen 66 mg/dL (7-18) H Creatinine 3.7 MG/DL (0.55-1.30) H Estimat Glomerular Filtration Rate 21.0 mL/min (>60) Glucose Level 123 MG/DL (74-106) H Osmolality 305 mOsm/kg (297-317) Uric Acid 3.2 MG/DL (2.6-7.2) Calcium Level 7.7 MG/DL (8.5-10.1) L Phosphorus Level 3.4 MG/DL (2.5-4.9) Magnesium Level 2.5 MG/DL (1.8-2.4) H Total Bilirubin 0.4 MG/DL (0.2-1.0) Gamma Glutamyl Transpeptidase 68 U/L (5-85) Aspartate Amino Transf (AST/SGOT) 72 U/L (15-37) H Alanine Aminotransferase (ALT/SGPT) 74 U/L (12-78) Alkaline Phosphatase 347 U/L (46-116) H C-Reactive Protein, Quantitative 10.4 mg/dL (0.00-0.90) H Pro-B-Type Natriuretic Peptide > 71467 pg/mL (0-125) H Total Protein 7.3 G/DL (6.4-8.2) Albumin 1.4 G/DL (3.4-5.0) L Globulin 5.9 g/dL Albumin/Globulin Ratio 0.2 (1.0-2.7) L Triglycerides Level 17 MG/DL (30-150) L Cholesterol Level 99 MG/DL (< 200) LDL Cholesterol 52 mg/dL (<100) HDL Cholesterol 37 MG/DL (40-60) L Cholesterol/HDL Ratio 2.7 (3.3-4.4) L Thyroid Stimulating Hormone (TSH) 12.070 uiU/mL (0.358-3.740) Current Medications Medications (Trade) Dose Ordered Sig/Maryjane Route PRN Reason Start Time Stop Time Status Last Admin Dose Admin Acetaminophen (Tylenol) 650 mg Q4H PRN GT Mild Pain (Pain Scale 1-3) 06/18/20 23:00 07/18/20 22:59 Acetaminophen (Tylenol) 650 mg Q4HR PRN GT FEVER 06/14/20 09:45 07/14/20 09:44 07/10/20 20:33 Aluminum Hydroxide (Amphojel) 1,920 mg Q6H GT 06/17/20 10:00 07/17/20 09:59 07/11/20 09:09 Ascorbic Acid (Vitamin C) 500 mg DAILY GT 07/01/20 09:00 07/31/20 08:59 07/11/20 09:08 Cefepime HCl 500 mg/Dextrose 55 ml @ 110 mls/hr Q24H IV 07/08/20 16:00 07/15/20 15:59 07/10/20 16:53 Chlorhexidine Gluconate (Inés-Hex 2%) 1 applic DAILY@2000 TOPIC 06/21/20 20:00 09/19/20 19:59 07/10/20 20:31 Dextrose (Dextrose 50%) 25 ml Q30M PRN IV Hypoglycemia 06/28/20 18:30 09/26/20 18:29 Dextrose (Dextrose 50%) 50 ml Q30M PRN IV Hypoglycemia 06/28/20 18:30 09/26/20 18:29 Epoetin Bonilla (Epoetin Bonilla(ESRD on dialysis)) 10,000 unit TUE-TUE-TUE SUBQ 07/02/20 21:00 09/16/20 20:59 07/09/20 20:23 Gentamicin Sulfate (Gentamicin vial) 300 mg Q12HR@10,22 INH 07/07/20 22:00 07/14/20 21:59 07/10/20 22:58 Haloperidol Lactate (Haldol) 5 mg Q6H PRN IM Agitation 06/21/20 23:15 08/05/20 23:14 06/25/20 18:17 Insulin Aspart (NovoLOG) EVERY 6 HOURS SUBQ 06/29/20 00:00 09/27/20 00:00 07/11/20 00:25 Lansoprazole (Prevacid) 30 mg Q12HR GT 06/30/20 21:00 07/30/20 20:59 07/11/20 09:08 Levothyroxine Sodium (Synthroid) 88 mcg DAILY@0630 GT 07/03/20 06:30 08/02/20 06:29 07/11/20 06:25 [facility] 1 ea DAILY PRN MISC Per rx protocol 06/27/20 11:30 07/18/20 23:59 Paul Amador MD Jul 11, 2020 10:23
--- NOTE | 2020-07-11 10:26 | Nephrology Progress Note ---
Assessment/Plan Problem List: (1) KERRI (acute kidney injury) (2) Acute respiratory failure (3) Chronic respiratory failure (4) Anemia (5) Hyperkalemia Assessment Acute on chronic renal failure Anemia Respiratory failure acute on chronic Respiratory acidosis and hypoxia Hyperkalemia Plan July 11: Last dialyzed July 09. Appears to may need dialysis tomorrow July 12. If discharged to subacute patient will have continued dialysis there. Discussed with case finishing machine adjuster and PMD. July 10: Last dialyzed July 09. Labs reviewed. Hyponatremia noted. C ontinue to monitor electrolytes and renal parameters. Hold off dialysis at this time and monitor renal parameters. Recheck TSH level. Continue per consultants. July 09: Due for dialysis today. Labs reviewed. Medication list reviewed. Continue same treatment plan. July 08: Patient was dialyzed yesterday. Today's labs reviewed. Electrolytes and renal parameters stable. Next dialysis tomorrow. Continue per consultants. July 07: Labs reviewed. Dialysis today. Abnormal electrolytes will be. Discussed with RN. Resolved after dialysis. Continue per consultants July 06: Labs reviewed. Dialyzed July 04. Due for dialysis July 07. Continue per consultants. July 05: Labs reviewed. Dialyzed yesterday. Electrolytes and renal p arameters stable. Continue per consultants. Continue dialysis as needed. July 04: Labs reviewed. Due for dialysis today. Continue to monitor electrolytes and hemoglobin hematocrit. Continue per consultants. July 03: Lab reviewed. Will defer dialysis for July 04. Some blood oozing from the catheter site. General surgery to be informed. Electrolytes stable. Continue as is. July 02: Labs reviewed. Due for dialysis tomorrow. Hemoglobin higher. Stable electrolytes. Continue per consultants. July 01: Labs reviewed. Dialyzed yesterday. Patient has a permacath. Continue per consultants. Worsening anemia noted, deferred to elementary school science teacher. June 30: Labs reviewed. Due for dialysis today. Patient appears to be needing hemodialysis for sometimes incoming future. Will arrange for placement of a tunneled catheter. Continue per consultants. Anemia management per elementary school science teacher. June 29: Labs reviewed. Hemoglobin is higher. Next hemodialysis tomorrow June 30. Continue per consultants. June 28: Labs reviewed. Last dialyzed June 26. Hemoglobin remains low. Defer transfusion and work-up to elementary school science teacher. Continue to follow-up renal parameters. June 27: Labs reviewed. Dialyzed yesterday. Hemoglobin low. Due for transfusion. Continue to monitor renal parameters and hemoglobin and hematocrit. June 26: Labs reviewed. Due for dialysis today. Continue per consultants. Continue to monitor liver enzymes. June 25: Labs reviewed. Will dialyze tomorrow. Continue per consultants. Check liver function enzymes. June 24: Dialyzed yesterday. Labs reviewed. Medication list reviewed. Liver enzymes remains elevated. Continue to monitor electrolytes renal parameters and LFTs. Hemodialysis in a.m. if needed. June 23: Patient will be dialyzed today again. Labs reviewed. Serum creatinine higher. Elevated liver enzymes persist. Patient full code. Continue per consultants. June 22: Patient dialyzed yesterday. Labs reviewed. Liver function tests and enzymes are elevated. Continue to monitor renal parameters and LFTs. Continue per consultants. Patient full code. June 21: Patient due for dialysis today. Labs and medication list reviewed. Discussed with RN. Continue to monitor renal parameters. June 20: Patient had an episode of bradycardia last night. Serum creatinine rising. Patient continues to have respiratory acidosis. Discussed with MAX Bond. Will order non tunneled dialysis catheter placement for initiation of dialysis treatment due to acute renal failure. Patient remains full code. I favor comfort care if bioethics consultation is sought and physicians on the team agreeable. June 19: No CHEM panel today. Low hemoglobin as of yesterday's lab results. Anemia management per Dr. Cueva. Continue to monitor renal parameters. June 18: Labs are reviewed. Hemoglobin lower. Creatinine higher. ABG not done yet. Patient full code. Continue per consultants. June 17: Labs reviewed. Hemoglobin low. Creatinine up to 3. Phosphorus levels elevated. Will start Amphojel via GT tube as a phosphorus binder. Monitor renal parameters. Check ABG. Continue per consultants. June 16: Labs reviewed. Serum creatinine mariana to 2.6. Abnormal electrolytes now normalized. Continue to monitor renal parameters and avoid nephrotoxic's. Continue to adjust pulmonary status as possible. June 15: ABG pH of 7.1. 2D echo suggestive of ejection fraction of 50%. Labs reviewed. Serum creatinine mariana. Will hold IV Lasix. Will give Kayexalate for high potassium and 1 amp of sodium bicarb. Albumin IV bolus given. Continue per consultants. Continue to monitor renal parameters. Kidney ultrasound ordered. June 14: As follow Pulmonary evaluation Sparrow catheter Hold IV fluid IV fluid, until 2D echo results available Kayexalate for high potassium IV Protonix 2D echocardiogram Anemia work-up More labs ordered Subjective ROS Limited/Unobtainable: Yes Objective Objective Last 24 Hour Vital Signs Date Time Temp Pulse Resp B/P (MAP) Pulse Ox O2 Delivery O2 Flow Rate FiO2 07/11/20 08:00 Mechanical Ventilator 07/11/20 08:00 40 07/11/20 08:00 95.9 73 22 134/77 (96) 99 07/11/20 07:42 71 07/11/20 07:05 71 20 40 07/11/20 04:00 73 07/11/20 04:00 96.5 75 22 127/75 (92) 98 07/11/20 04:00 40 07/11/20 04:00 Mechanical Ventilator 07/11/20 03:30 75 21 40 07/11/20 00:00 40 07/11/20 00:00 72 07/11/20 00:00 96.4 72 22 127/73 (91) 98 07/11/20 00:00 Mechanical Ventilator 07/10/20 22:58 72 19 99 Mechanical Ventilator 40 74 19 40 07/10/20 20:00 40 07/10/20 20:00 Mechanical Ventilator 07/10/20 20:00 95.9 73 22 128/71 (90) 100 07/10/20 19:30 72 21 40 07/10/20 19:25 73 07/10/20 16:00 72 07/10/20 16:00 40 07/10/20 16:00 98.1 76 22 135/74 (94) 99 07/10/20 16:00 Mechanical Ventilator 07/10/20 15:20 72 24 40 07/10/20 12:00 97.1 74 22 127/75 (92) 97 07/10/20 12:00 40 07/10/20 12:00 Mechanical Ventilator 07/10/20 12:00 73 07/10/20 11:09 67 20 100 Mechanical Ventilator 40 69 20 40 Intake and Output 07/10/20 07/11/20 19:00 07:00 Intake Total 120 ml 740 ml Output Total 400 ml Balance 120 ml 340 ml Free Water 50 ml 110 ml Tube Feeding 70 ml 630 ml Output Urine Total 300 ml Stool Total 100 ml Current Medications Medications (Trade) Dose Ordered Sig/Maryjane Route PRN Reason Start Time Stop Time Status Last Admin Dose Admin Acetaminophen (Tylenol) 650 mg Q4H PRN GT Mild Pain (Pain Scale 1-3) 06/18/20 23:00 07/18/20 22:59 Acetaminophen (Tylenol) 650 mg Q4HR PRN GT FEVER 06/14/20 09:45 07/14/20 09:44 07/10/20 20:33 Aluminum Hydroxide (Amphojel) 1,920 mg Q6H GT 06/17/20 10:00 07/17/20 09:59 07/11/20 09:09 Ascorbic Acid (Vitamin C) 500 mg DAILY GT 07/01/20 09:00 07/31/20 08:59 07/11/20 09:08 Cefepime HCl 500 mg/Dextrose 55 ml @ 110 mls/hr Q24H IV 07/08/20 16:00 07/15/20 15:59 07/10/20 16:53 Chlorhexidine Gluconate (Inés-Hex 2%) 1 applic DAILY@1999 TOPIC 06/21/20 20:00 09/19/20 19:59 07/10/20 20:31 Dextrose (Dextrose 50%) 25 ml Q30M PRN IV Hypoglycemia 06/28/20 18:30 09/26/20 18:29 Dextrose (Dextrose 50%) 50 ml Q30M PRN IV Hypoglycemia 06/28/20 18:30 09/26/20 18:29 Epoetin Bonilla (Epoetin Bonilla(ESRD on dialysis)) 10,000 unit TUE-TUE-TUE SUBQ 07/02/20 21:00 09/16/20 20:59 07/09/20 20:23 Gentamicin Sulfate (Gentamicin vial) 300 mg Q12HR@10,22 INH 07/07/20 22:00 07/14/20 21:59 07/10/20 22:58 Haloperidol Lactate (Haldol) 5 mg Q6H PRN IM Agitation 06/21/20 23:15 08/05/20 23:14 06/25/20 18:17 Insulin Aspart (NovoLOG) EVERY 6 HOURS SUBQ 06/29/20 00:00 09/27/20 00:00 07/11/20 00:25 Lansoprazole (Prevacid) 30 mg Q12HR GT 06/30/20 21:00 07/30/20 20:59 07/11/20 09:08 Levothyroxine Sodium (Synthroid) 88 mcg DAILY@0630 GT 07/03/20 06:30 08/02/20 06:29 07/11/20 06:25 Vancomycin HCl ([facility] pharmacy to dose) 1 ea DAILY PRN MISC Per rx protocol 06/27/20 11:30 07/18/20 23:59 Laboratory Tests 07/10/20 12:48: POC Whole Blood Glucose 117H 07/10/20 17:59: POC Whole Blood Glucose 164H 07/11/20 03:30: Sodium Level 132L, Potassium Level 4.9, Chloride Level 100, Carbon Dioxide Level 28, Anion Gap 5, Blood Urea Nitrogen 66H, Creatinine 3.7H, Estimat Glomerular Filtration Rate 21.0, Glucose Level 123H, Osmolality 305, Uric Acid 3.2, Calcium Level 7.7L, Phosphorus Level 3.4, Magnesium Level 2.5H, Total Bilirubin 0.4, Gamma Glutamyl Transpeptidase 68, Aspartate Amino Transf (AST/SGOT) 72H, Alanine Aminotransferase (ALT/SGPT) 74, Alkaline Phosphatase 347H, C-Reactive Protein, Quantitative 10.4H, Pro-B-Type Natriuretic Peptide > 76674M, Total Protein 7.3, Albumin 1.4L, Globulin 5.9, Albumin/Globulin Ratio 0.2L, Triglycerides Level 17L , Cholesterol Level 99, LDL Cholesterol 52, HDL Cholesterol 37L, Cholesterol/HDL Ratio 2.7L, Thyroid Stimulating Hormone (TSH) 12.070H 07/11/20 05:19: POC Whole Blood Glucose 140H Height (Feet): 5 Height (Inches): 8.00 Weight (Pounds): 143 General Appearance: no apparent distress, lethargic EENT: other - Trach to vent Cardiovascular: normal rate Respiratory/Chest: decreased breath sounds Leonidas Honeycutt MD Jul 11, 2020 10:26
--- NOTE | 2020-07-11 10:38 | NUR ---
NURSE NOTES: Dr. Lashonda Amador at nurse station. Made Dr. Lashonda Amador aware that patient has discharge order today to SNF per Dr. Apple. Dr. Lashonda Amador acknowledged and ordered to continue Gentamicin 300 mg INH for 2 more days, continue Cefepime 500 mg IV Q24HR for 2 more days, continue Vancomycin IV per pharmacy until July 18, 2020. Per Dr. 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 Orders entered, noted, and carried out. Will continue to monitor patient.
--- NOTE | 2020-07-11 10:52 | NUR ---
NURSE NOTES: Dr. Hall at nurse [facility] made aware that patient had fever of 100.6 F last night and has been having low grade fevers. Last temperature 99.[address] Hall acknowledged and informed this nurse patient is okay to discharge to [facility] with low grade fever, no antibiotics needed. Noted. Addendum: 07/11/20 at 1056 by KANG MCCARTY RN NURSE NOTES: Correction: Disregard above nurse notes, for different patient.
--- NOTE | 2020-07-11 11:00 | NUR ---
NURSE NOTES: Dr. Garcia seen and examined patient at bedside. Instructed this nurse to change PEEP to 5. Order entered, noted, and carried out. RT made aware. Noted.
[2020-07-11 11:05] LABS: HEMATOCRIT 23.9 % (42.0-52.0); HEMOGLOBIN 7.5 G/DL (14.2-18.0); MEAN CORPUSCULAR VOLUME 92 FL (80-99); PLATELET COUNT 193 K/UL (150-450); RED BLOOD COUNT 2.61 M/UL (4.70-6.10); WHITE BLOOD COUNT 8.3 K/UL (4.8-10.8)
[2020-07-11 11:12] LABS: EOSINOPHILS % (AUTO) 13.7 % (0.0-3.0); LYMPHOCYTES % (AUTO) 13.3 % (20.0-45.0); MONOCYTES % (AUTO) 7.6 % (1.0-10.0); NEUTROPHILS % (AUTO) 64.1 % (45.0-75.0)
[2020-07-11 11:13] LABS: BASOPHILS % (AUTO) 1.2 % (0.0-2.0)
[2020-07-11 12:00] VITALS: BP 124/73
--- NOTE | 2020-07-11 12:20 | NUR ---
NURSE NOTES: Blood transfusion started. Varun Hurst RN witnessed. Pt's starting vital signs stable at this time. Will retake 15 minute vital signs at 1235. Will continue to monitor.
--- NOTE | 2020-07-11 12:35 | NUR ---
NURSE NOTES: Vital signs stable. Pt remains awake and alert. Will continue to monitor.
[2020-07-11] MEDS: Gentamicin for inhalation INH SCH ×2 (12:39→22:30)
--- NOTE | 2020-07-11 14:20 | Cardiac Electrophysiology PN ---
Assessment/Plan Assessment/Plan 1. Vent-dependent respirator failure. S/P tracheostomy. On 50% Fio2 Chest x-ray extensive bilateral pneumonia or ARDS. Off isolation EF 50%. Ruled out for [place] On iv Abx 2. Sinus Tachycardia, likely due to respiratory failure and sepsis 3. Right femoral vein DVT. S/P IVC filter 06/18 4. Dysphagia, status post PEG placement. 5. Renal failure. S/P Right IJ Iron and on HD by Dr. Honeycutt. 6. Severe anemia, S/P multiple PRBCs for hematuria 7. High LFTs, s/p CT abdomen and pelvis and HIDA FU Dr. Stringer 8. 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 On 45% Fio2 and PEEP 5. S/P IVC filter S/P Right IJ Iron and first HD 06/21/20 Had SINGING TEACHER as HR dropped to 30 at 4 am 06/25/20 Got PRBC 06/27 and 06/28 S/P HD and PRBC 07/07/20. DC planning today after PRBC Objective Last 24 Hour Vital Signs Date Time Temp Pulse Resp B/P (MAP) Pulse Ox O2 Delivery O2 Flow Rate FiO2 07/11/20 12:46 71 20 100 Mechanical Ventilator 40 70 20 99 07/11/20 12:46 70 20 100 Mechanical Ventilator 40 71 20 40 07/11/20 12:00 97.2 70 22 124/73 (90) 98 07/11/20 12:00 Mechanical Ventilator 07/11/20 12:00 40 07/11/20 11:42 69 07/11/20 11:12 70 21 40 07/11/20 08:00 Mechanical Ventilator 07/11/20 08:00 40 07/11/20 08:00 95.9 73 22 134/77 (96) 99 07/11/20 07:42 71 07/11/20 07:05 71 20 40 07/11/20 04:00 73 07/11/20 04:00 96.5 75 22 127/75 (92) 98 07/11/20 04:00 40 07/11/20 04:00 Mechanical Ventilator 07/11/20 03:30 75 21 40 07/11/20 00:00 40 07/11/20 00:00 72 07/11/20 00:00 96.4 72 22 127/73 (91) 98 07/11/20 00:00 Mechanical Ventilator 07/10/20 22:58 72 19 99 Mechanical Ventilator 40 74 19 40 07/10/20 20:00 40 07/10/20 20:00 Mechanical Ventilator 07/10/20 20:00 95.9 73 22 128/71 (90) 100 07/10/20 19:30 72 21 40 07/10/20 19:25 73 07/10/20 16:00 72 07/10/20 16:00 40 07/10/20 16:00 98.1 76 22 135/74 (94) 99 07/10/20 16:00 Mechanical Ventilator 07/10/20 15:20 72 24 40 Intake and Output 07/10/20 07/11/20 19:00 07:00 Intake Total 120 ml 740 ml Output Total 400 ml Balance 120 ml 340 ml Free Water 50 ml 110 ml Tube Feeding 70 ml 630 ml Output Urine Total 300 ml Stool Total 100 ml Laboratory Tests Test 07/10/20 17:59 07/11/20 03:30 07/11/20 05:19 07/11/20 10:50 POC Whole Blood Glucose 164 MG/DL (74-106) H 140 MG/DL (74-106) H Sodium Level 132 MMOL/L (136-145) L Potassium Level 4.9 MMOL/L (3.5-5.1) Chloride Level 100 MMOL/L (98-107) Carbon Dioxide Level 28 MMOL/L (21-32) Anion Gap 5 mmol/L (5-15) Blood Urea Nitrogen 66 mg/dL (7-18) H Creatinine 3.7 MG/DL (0.55-1.30) H Estimat Glomerular Filtration Rate 21.0 mL/min (>60) Glucose Level 123 MG/DL (74-106) H Osmolality 305 mOsm/kg (297-317) Uric Acid 3.2 MG/DL (2.6-7.2) Calcium Level 7.7 MG/DL (8.5-10.1) L Phosphorus Level 3.4 MG/DL (2.5-4.9) Magnesium Level 2.5 MG/DL (1.8-2.4) H Total Bilirubin 0.4 MG/DL (0.2-1.0) Gamma Glutamyl Transpeptidase 68 U/L (5-85) Aspartate Amino Transf (AST/SGOT) 72 U/L (15-37) H Alanine Aminotransferase (ALT/SGPT) 74 U/L (12-78) Alkaline Phosphatase 347 U/L (46-116) H C-Reactive Protein, Quantitative 10.4 mg/dL (0.00-0.90) H Pro-B-Type Natriuretic Peptide > 59742 pg/mL (0-125) H Total Protein 7.3 G/DL (6.4-8.2) Albumin 1.4 G/DL (3.4-5.0) L Globulin 5.9 g/dL Albumin/Globulin Ratio 0.2 (1.0-2.7) L Triglycerides Level 17 MG/DL (30-150) L Cholesterol Level 99 MG/DL (< 200) LDL Cholesterol 52 mg/dL (<100) HDL Cholesterol 37 MG/DL (40-60) L Cholesterol/HDL Ratio 2.7 (3.3-4.4) L Thyroid Stimulating Hormone (TSH) 12.070 uiU/mL (0.358-3.740) White Blood Count 8.3 K/UL (4.8-10.8) Red Blood Count 2.61 M/UL (4.70-6.10) L Hemoglobin 7.5 G/DL (14.2-18.0) L Hematocrit 23.9 % (42.0-52.0) L Mean Corpuscular Volume 92 FL (80-99) Mean Corpuscular Hemoglobin 28.8 PG (27.0-31.0) Mean Corpuscular Hemoglobin Concent 31.3 G/DL (32.0-36.0) L Red Cell Distribution Width 15.0 % (11.6-14.8) H Platelet Count 193 K/UL (150-450) Mean Platelet Volume 7.8 FL (6.5-10.1) Neutrophils (%) (Auto) 64.1 % (45.0-75.0) Lymphocytes (%) (Auto) 13.3 % (20.0-45.0) L Monocytes (%) (Auto) 7.6 % (1.0-10.0) Eosinophils (%) (Auto) 13.7 % (0.0-3.0) H Basophils (%) (Auto) 1.2 % (0.0-2.0) Test 12/4/20 12:38 POC Whole Blood Glucose 136 MG/DL (74-106) H Microbiology Date/Time Source Procedure Growth Status 07/10/20 16:50 Nasopharynx SARS-CoV-2 RdRp Gene Assay - Final Complete Objective HEAD AND NECK: Status post tracheostomy. Right IJ Iron in place LUNGS: Coarse rhonchi and basilar rales. CARDIOVASCULAR: Irregular S1 and S2 with no gallop. ABDOMEN: Soft. Status post G-tube. EXTREMITIES: No pitting edema. Lance Mcguire MD Jul 11, 2020 14:20
--- NOTE | 2020-07-11 15:00 | NUR ---
NURSE NOTES: Blood transfusion ended. No adverse effects noted. Vital signs stable. Will continue plan of care.
--- NOTE | 2020-07-11 15:45 | NUR ---
NURSE NOTES: Contacted [facility] nephrology, spoke with Apollo. Informed Apollo that patient has hemodialysis order tomorrow 07/12/[address] Honeycutt. Apollo acknowledged and will make dialysis nurse aware. Benjamin dialysis nurse for [facility] at nurse station, made aware of order for dialysis order for tomorrow. Benjamin acknowledged. Entered in dialysis notification. Noted.
[2020-07-11 16:00] VITALS: BP 132/72
[2020-07-11] MEDS: Cefepime HCl 500 MG in D5W 55 ML IV SCH (16:06)
--- NOTE | 2020-07-11 16:09 | Surgery Progress Note ---
Surgery Progress Note Subjective Symptoms: improved, tolerating diet, passing flatus Objective Last 24 Hour Vital Signs Date Time Temp Pulse Resp B/P (MAP) Pulse Ox O2 Delivery O2 Flow Rate FiO2 07/11/20 12:46 71 20 100 Mechanical Ventilator 40 70 20 99 07/11/20 12:46 70 20 100 Mechanical Ventilator 40 71 20 40 07/11/20 12:00 97.2 70 22 124/73 (90) 98 07/11/20 12:00 Mechanical Ventilator 07/11/20 12:00 40 07/11/20 11:42 69 07/11/20 11:12 70 21 40 07/11/20 08:00 Mechanical Ventilator 07/11/20 08:00 40 07/11/20 08:00 95.9 73 22 134/77 (96) 99 07/11/20 07:42 71 07/11/20 07:05 71 20 40 07/11/20 04:00 73 07/11/20 04:00 96.5 75 22 127/75 (92) 98 07/11/20 04:00 40 07/11/20 04:00 Mechanical Ventilator 07/11/20 03:30 75 21 40 07/11/20 00:00 40 07/11/20 00:00 72 07/11/20 00:00 96.4 72 22 127/73 (91) 98 07/11/20 00:00 Mechanical Ventilator 07/10/20 22:58 72 19 99 Mechanical Ventilator 40 74 19 40 07/10/20 20:00 40 07/10/20 20:00 Mechanical Ventilator 07/10/20 20:00 95.9 73 22 128/71 (90) 100 07/10/20 19:30 72 21 40 07/10/20 19:25 73 I&O Intake and Output 07/10/20 07/11/20 19:00 07:00 Intake Total 120 ml 740 ml Output Total 400 ml Balance 120 ml 340 ml Free Water 50 ml 110 ml Tube Feeding 70 ml 630 ml Output Urine Total 300 ml Stool Total 100 ml Dressing: saturated Cardiovascular: RSR Respiratory: decreased breath sounds Abdomen: non-tender, present bowel sounds Extremities: no edema, no tenderness, no cyanosis, other Laboratory Tests Test 07/10/20 17:59 07/11/20 03:30 07/11/20 05:19 12/4/20 10:50 POC Whole Blood Glucose 164 MG/DL (74-106) H 140 MG/DL (74-106) H Sodium Level 132 MMOL/L (136-145) L Potassium Level 4.9 MMOL/L (3.5-5.1) Chloride Level 100 MMOL/L (98-107) Carbon Dioxide Level 28 MMOL/L (21-32) Anion Gap 5 mmol/L (5-15) Blood Urea Nitrogen 66 mg/dL (7-18) H Creatinine 3.7 MG/DL (0.55-1.30) H Estimat Glomerular Filtration Rate 21.0 mL/min (>60) Glucose Level 123 MG/DL (74-106) H Osmolality 305 mOsm/kg (297-317) Uric Acid 3.2 MG/DL (2.6-7.2) Calcium Level 7.7 MG/DL (8.5-10.1) L Phosphorus Level 3.4 MG/DL (2.5-4.9) Magnesium Level 2.5 MG/DL (1.8-2.4) H Total Bilirubin 0.4 MG/DL (0.2-1.0) Gamma Glutamyl Transpeptidase 68 U/L (5-85) Aspartate Amino Transf (AST/SGOT) 72 U/L (15-37) H Alanine Aminotransferase (ALT/SGPT) 74 U/L (12-78) Alkaline Phosphatase 347 U/L (46-116) H C-Reactive Protein, Quantitative 10.4 mg/dL (0.00-0.90) H Pro-B-Type Natriuretic Peptide > 64653 pg/mL (0-125) H Total Protein 7.3 G/DL (6.4-8.2) Albumin 1.4 G/DL (3.4-5.0) L Globulin 5.9 g/dL Albumin/Globulin Ratio 0.2 (1.0-2.7) L Triglycerides Level 17 MG/DL (30-150) L Cholesterol Level 99 MG/DL (< 200) LDL Cholesterol 52 mg/dL (<100) HDL Cholesterol 37 MG/DL (40-60) L Cholesterol/HDL Ratio 2.7 (3.3-4.4) L Thyroid Stimulating Hormone (TSH) 12.070 uiU/mL (0.358-3.740) White Blood Count 8.3 K/UL (4.8-10.8) Red Blood Count 2.61 M/UL (4.70-6.10) L Hemoglobin 7.5 G/DL (14.2-18.0) L Hematocrit 23.9 % (42.0-52.0) L Mean Corpuscular Volume 92 FL (80-99) Mean Corpuscular Hemoglobin 28.8 PG (27.0-31.0) Mean Corpuscular Hemoglobin Concent 31.3 G/DL (32.0-36.0) L Red Cell Distribution Width 15.0 % (11.6-14.8) H Platelet Count 193 K/UL (150-450) Mean Platelet Volume 7.8 FL (6.5-10.1) Neutrophils (%) (Auto) 64.1 % (45.0-75.0) Lymphocytes (%) (Auto) 13.3 % (20.0-45.0) L Monocytes (%) (Auto) 7.6 % (1.0-10.0) Eosinophils (%) (Auto) 13.7 % (0.0-3.0) H Basophils (%) (Auto) 1.2 % (0.0-2.0) Test 07/11/20 12:38 POC Whole Blood Glucose 136 MG/DL (74-106) H Plan Problems: (1) Leukocytosis Assessment & Plan: 54-year-old male multiple comorbidities admitted for abnormal chest x-ray potentially pneumonia leukocytosis abnormal labs. Patient identified to have a prior left BKA surgical sutures still in place as well as a surgical sacral wound with sutures in place. Considerations of dehiscence being identified and potential etiology of infection. After evaluation unlikely source of infection though the sacral wound was looked to be dehiscing at the inferior aspect. No acute surgical mention at this time We will discussed care plan with PCP Recommend follow-up with initial surgeon considerations of removal of surgical sutures Care plan initiated worsening lft's US ordered ? shayla monitor for bleeding from right chest wall cath change dressings Extensive airspace consolidations at the lung bases consistent with severe multifocal infiltrate. Associated, large bilateral pleural effusions. Evaluation of the abdominal viscera is markedly suboptimal due to poor CT technique and lack of intravenous contrast. No definite hepatic lesion. No definite cholelithiasis. Mild colon wall thickening. The spleen, pancreas, and adrenal glands are not visualized well enough reliable assessment. No definite hydronephrosis. The kidneys are hyperdense, correlate for medical renal disease. No nephrolithiasis. Sparrow catheter within a decompressed urinary bladder. Moderate diverticulosis, without acute diverticulitis. No small bowel obstruction. PEG tube presumably within the stomach. Atherosclerotic calcifications of the aorta. Low-attenuation of the intravascular blood pool, correlate for anemia. IVC filter, incidentally noted. Air within the subcutaneous fat overlying the sacrum with skin thickening, correlate with physical exam for sacral decubitus ulcer. Degenerative changes of the spine. Bilateral pars defects at L5 without anterolisthesis of L5 on S1. IMPRESSION: Extensive airspace consolidations at the lung bases consistent with severe multifocal infiltrate. Associated, large bilateral pleural effusions. Evaluation of the abdominal viscera is markedly suboptimal due to poor CT technique and lack of intravenous contrast. Moderate diverticulosis, without acute diverticulitis. No small bowel obstruction. PEG tube presumably within the stomach. Note, if there is suspicion for colitis consider repeat scan with improved CT technique/intravenous contrast. Mild gallbladder wall thickening without definite evidence of cholelithiasis. Air within the subcutaneous fat overlying the sacrum with skin thickening, correlate with physical exam for sacral decubitus ulcer. Bilateral pars defects at L5. The kidneys are hyperdense, correlate for medical renal disease.. There is prompt uptake within the liver with washout of radiotracer from the liver on subsequent imaging. There is excretion into the biliary ducts. Gallbladder activity is present in a timely fashion indicating patency of the cystic duct. Very scant bowel activity is demonstrated concerning for common bile duct obstruction or sphincter dysfunction. IMPRESSION: No evidence to suggest cholecystitis. Gallbladder activity is present in a timely fashion indicating patency of the cystic duct. Very little radiotracer noted in the small bowel. Correlate with LFTs as a degree of common bile duct obstruction or sphincter dysfunction not excluded. Consider f urther evaluation with MRCP. (2) Surgical wound dehiscence Assessment & Plan: Patient identified to have a left BKA surgical sutures in place flap looks like it is taken well no signs of infection at this time no signs of seroma hematoma or drainage. Unknown exact length or duration of potential prior left BKA and until then recommend leaving sutures in place as it may be too early though it does look well-healed. If able to obtain prior records we will be happy to remove sutures otherwise will need follow-up with primary surgeon furthermore patient identified to have a surgical wound in the sacral area seems he probably potentially had a stage IV sacral decubitus ulcer that had debridement and primary closure. Fortunately. Sutures are still in place and it looks like the inferior aspect may be slowly dehiscing. There is no significant drainage no foul odor no signs of active infection unknown if bone was palpable prior. Can consider removing surgical sutures but again would recommend obtaining prior records of possible prior to doing so. Also recommend following up with primary surgeon as this may need ongoing continued care. Will follow with recommendations and as information is available. Continue current care plan. Wash wounds daily with normal saline. Apply skin protectant Optifoam dressing. Turn every 2 hours. Offload pressure with pillows and air mattress. Nutritional optimization. Worsening leukocytosis. Patient continues to have dehiscence of the prior primarily closed sacral decubitus ulcer. The sutures are was nearly torn out and the wound is opening and saturating with stool with bowel movements now has rectal tube. Unfortunately I see significant concern given dehiscence and therefore sutures were cut at the bedside and wound immediately opened under some tension. Underlying Vicryl sutures identified. There is some backbleeding some granulation tissue but definitely no take or closure of the stage IV sacral decubitus ulcer that was identified. Nonexcisional debridement done with gauze and jorge layer of slough and biofilm was removed wound was cleaned packing dress ings applied. No abscess no purulent drainage unlikely etiology of infection. (3) History of left below knee amputation (4) Malnutrition Assessment & Plan: DAILY ESTIMATED NEEDS: Needs based on Wound, critical care, underweight/ 55.5kg 25-33 (25-35 w/ HD) kcals/kg [id number] (1755-2934) total kcals 1.25-2 g protein/kg 69-111 g total protein 25-30 mL/kg 6433-0760 total fluid mLs NUTRITION DIAGNOSIS: * Swallowing difficulty R/T respiratory status as evidenced by pt is trach/vent dep, PEG dep. CURRENT TF: Nepro @ 40ml/hr x24 hrs ENTERAL NUTRITION RECOMMENDATIONS: Nepro @ 40ml/hr x 24 hrs to provide 960ml, 1728kcal, 78g prot, 698ml free water * Maintain current TF * HOB over 30 degrees/ water flush per MD ADDITIONAL RECOMMENDATIONS: * Per SNF: HT=69" PE=251sum -> rec daily calibrated bedscale wt * Monitor lytes: elev K-> now wnl, phos now low * Wound healing: RANDY BID + Nephrovite 1 tab qdaily * Monitor for bm, last bm 06/19, now 06/24 * W/ HD rec to add Prosource 1 pack qdaily for added 11g pro/day. (5) Anemia (6) KERRI (acute kidney injury) (7) Acute respiratory failure (8) Hyperkalemia (9) Anemia (10) Abnormal laboratory test result (11) Chronic respiratory failure (12) Hyperglycemia (13) Hypothyroidism Azar Mares Jul 11, 2020 16:09
--- NOTE | 2020-07-11 18:23 | NUR ---
SENIOR ARCHITECTURAL DESIGNER NOTES SPOKE WITH CHARITO FROM [facility] SHE WAS UNABLE TO COMPLETE THE SHAUNA NEEDED FOR ADMISSION TO [place]. PT WILL DC ONCE SHANUA IS RECEIVED. WEEKEND SENIOR ARCHITECTURAL DESIGNER TO FOLLOW UP WITH ALESIA IN AM.
--- NOTE | 2020-07-11 18:57 | NUR ---
NURSE HAND-OFF REPORT: Important Events on Shift:[1 Unit PRBC transfused, awaiting discharge] Patient Status: [NA] Diet: [NA] Pending Orders: [HD tomorrow] Pending Results/Labs:[NA] Pending MD notification:[NA] Latest Vital Signs: Temperature 97.2 , Pulse 74 , B/P 132 /72 , Respiratory Rate 24 , O2 SAT 99 , Mechanical Ventilator, O2 Flow Rate 15.0 . Vital Sign Comment: [NA] EKG Rhythm: Sinus Rhythm Rhythm change?: N MD Notified?: Y -Dr. Mcugire and Dr. Ambika BENDER Response: No New Orders Received Latest Santiago Fall Score: 75 Fall Risk: High Risk Safety Measures: Call light Within Reach, Bed Alarm Zone 2, Side Rails Side Rails x2, Bed position Low and Locked. Fall Precautions: Yellow Gown Patient Fall Education Report given to [MAX Christensen].
[2020-07-11 20:00] VITALS: BP 132/77
--- NOTE | 2020-07-11 20:00 | NUR ---
NURSE NOTES: Report received from MAX Bond. Observed pt lying in the bed, awake, denies any pain at this time. SR noted. Trach to vent, shiley 8, AC 18, TV 500, FIO2 40%, PEEP 8, suctioned blood tinged sputum noted. GT intact running Vital at 70cc/hr. Rectal tube intact, brown stool noted. Permacath on R IJ intact. IV on R H 22G, SL. Bed in the lowest position. Side rails up x3. Will continue to monitor.
[2020-07-11] MEDS: Dyna-Hex 2% Top Sol 2oz TOPIC SCH (21:12)
[2020-07-11] MEDS: Epoetin Alfa-EPBX(ESRD on dialysis)10,000 unit/ml vial SUBQ SCH (21:16)
--- NOTE | 2020-07-11 21:36 | General Progress Note ---
Subjective ROS Limited/Unobtainable: Yes Allergies: Coded Allergies: No Known Allergies (Unverified , 06/13/20) Objective Last 24 Hour Vital Signs Date Time Temp Pulse Resp B/P (MAP) Pulse Ox O2 Delivery O2 Flow Rate FiO2 07/11/20 20:00 96.0 72 22 132/77 (95) 98 07/11/20 18:42 74 24 40 07/11/20 16:00 97.2 74 23 132/72 (92) 99 07/11/20 16:00 40 07/11/20 16:00 Mechanical Ventilator 07/11/20 15:40 74 07/11/20 15:12 74 25 40 07/11/20 12:46 71 20 100 Mechanical Ventilator 40 70 20 99 07/11/20 12:46 70 20 100 Mechanical Ventilator 40 71 20 40 07/11/20 12:00 97.2 70 22 124/73 (90) 98 07/11/20 12:00 Mechanical Ventilator 07/11/20 12:00 40 07/11/20 11:42 69 07/11/20 11:12 70 21 40 07/11/20 08:00 Mechanical Ventilator 07/11/20 08:00 40 07/11/20 08:00 95.9 73 22 134/77 (96) 99 07/11/20 07:42 71 07/11/20 07:05 71 20 40 07/11/20 04:00 73 07/11/20 04:00 96.5 75 22 127/75 (92) 98 07/11/20 04:00 40 07/11/20 04:00 Mechanical Ventilator 07/11/20 03:30 75 21 40 07/11/20 00:00 40 07/11/20 00:00 72 07/11/20 00:00 96.4 72 22 127/73 (91) 98 07/11/20 00:00 Mechanical Ventilator 07/10/20 22:58 72 19 99 Mechanical Ventilator 40 74 19 40 Intake and Output 07/10/20 07/11/20 19:00 07:00 Intake Total 120 ml 740 ml Output Total 400 ml Balance 120 ml 340 ml Free Water 50 ml 110 ml Tube Feeding 70 ml 630 ml Output Urine Total 300 ml Stool Total 100 ml Laboratory Tests 07/11/20 03:30: Sodium Level 132L, Potassium Level 4.9, Chloride Level 100, Carbon Dioxide Level 28, Anion Gap 5, Blood Urea Nitrogen 66H, Creatinine 3.7H, Estimat Glomerular Filtration Rate 21.0, Glucose Level 123H, Osmolality 305, Uric Acid 3.2, Calcium Level 7.7L, Phosphorus Level 3.4, Magnesium Level 2.5H, Total Bilirubin 0.4, Gamma Glutamyl Transpeptidase 68, Aspartate Amino Transf (AST/SGOT) 72H, Alanine Aminotransferase (ALT/SGPT) 74, Alkaline Phosphatase 347H, C-Reactive Protein, Quantitative 10.4H, Pro-B-Type Natriuretic Peptide > 64003G, Total Protein 7.3, Albumin 1.4L, Globulin 5.9, Albumin/Globulin Ratio 0.2L, Triglycerides Level 17L , Cholesterol Level 99, LDL Cholesterol 52, HDL Cholesterol 37L, Cholesterol/HDL Ratio 2.7L, Thyroid Stimulating Hormone (TSH) 12.070H 07/11/20 05:19: POC Whole Blood Glucose 140H 07/11/20 10:50: White Blood Count 8.3, Red Blood Count 2.61L, Hemoglobin 7.5L, Hematocrit 23.9L, Mean Corpuscular Volume 92, Mean Corpuscular Hemoglobin 28.8, Mean Corpuscular Hemoglobin Concent 31.3L, Red Cell Distribution Width 15.0H, Platelet Count 193, Mean Platelet Volume 7.8, Neutrophils (%) (Auto) 64.1, Lymphocytes (%) (Auto) 13.3L, Monocytes (%) (Auto) 7.6, Eosinophils (%) (Auto) 13.7H, Basophils (%) (Auto) 1.2 07/11/20 12:38: POC Whole Blood Glucose 136H 07/11/20 17:02: POC Whole Blood Glucose 187H Height (Feet): 5 Height (Inches): 8.00 Weight (Pounds): 143 Assessment/Plan Problem List: (1) Anemia ICD Codes: D64.9 - Anemia, unspecified SNOMED: 886019022 (2) KERRI (acute kidney injury) ICD Codes: N17.9 - Acute kidney failure, unspecified SNOMED: 1323170, 98398748 (3) Acute respiratory failure ICD Codes: J96.00 - Acute respiratory failure, unspecified whether with hypoxia or hypercapnia SNOMED: 18306037 Qualifiers: Qualified Codes: J96.02 - Acute respiratory failure with hypercapnia (4) Hyperkalemia ICD Codes: E87.5 - Hyperkalemia SNOMED: 84793338 (5) Abnormal laboratory test result ICD Codes: R89.9 - Unspecified abnormal finding in specimens from other organs, systems and tissues SNOMED: 290602822 (6) Anemia ICD Codes: D64.9 - Anemia, unspecified SNOMED: 616758562 Status: progressing Assessment/Plan: afebrile awaiting placement in subacute s/p pulmonary edema pvc s/p acute mi Neida Apple MD Jul 11, 2020 21:36
--- NOTE | 2020-07-11 23:41 | General Progress Note ---
Subjective Allergies: Coded Allergies: No Known Allergies (Unverified , 06/13/20) Subjective above noted stools liquid tolerating TF LFT still elevated but slowly declining liver w/u negative Objective Last 24 Hour Vital Signs Date Time Temp Pulse Resp B/P (MAP) Pulse Ox O2 Delivery O2 Flow Rate FiO2 07/11/20 22:30 74 20 100 Mechanical Ventilator 40 73 20 40 07/11/20 20:00 40 07/11/20 20:00 96.0 72 22 132/77 (95) 98 07/11/20 20:00 74 07/11/20 20:00 Mechanical Ventilator 07/11/20 18:42 74 24 40 07/11/20 16:00 97.2 74 23 132/72 (92) 99 07/11/20 16:00 40 07/11/20 16:00 Mechanical Ventilator 07/11/20 15:40 74 07/11/20 15:12 74 25 40 07/11/20 12:46 71 20 100 Mechanical Ventilator 40 70 20 99 07/11/20 12:46 70 20 100 Mechanical Ventilator 40 71 20 40 07/11/20 12:00 97.2 70 22 124/73 (90) 98 07/11/20 12:00 Mechanical Ventilator 07/11/20 12:00 40 07/11/20 11:42 69 07/11/20 11:12 70 21 40 07/11/20 08:00 Mechanical Ventilator 07/11/20 08:00 40 07/11/20 08:00 95.9 73 22 134/77 (96) 99 07/11/20 07:42 71 07/11/20 07:05 71 20 40 07/11/20 04:00 73 07/11/20 04:00 96.5 75 22 127/75 (92) 98 07/11/20 04:00 40 07/11/20 04:00 Mechanical Ventilator 07/11/20 03:30 75 21 40 07/11/20 00:00 40 07/11/20 00:00 72 07/11/20 00:00 96.4 72 22 127/73 (91) 98 07/11/20 00:00 Mechanical Ventilator Intake and Output 07/10/20 07/11/20 19:00 07:00 Intake Total 120 ml 740 ml Output Total 400 ml Balance 120 ml 340 ml Free Water 50 ml 110 ml Tube Feeding 70 ml 630 ml Output Urine Total 300 ml Stool Total 100 ml Laboratory Tests 07/11/20 03:30: Sodium Level 132L, Potassium Level 4.9, Chloride Level 100, Carbon Dioxide Level 28, Anion Gap 5, Blood Urea Nitrogen 66H, Creatinine 3.7H, Estimat Glomerular Filtration Rate 21.0, Glucose Level 123H, Osmolality 305, Uric Acid 3.2, Calcium Level 7.7L, Phosphorus Level 3.4, Magnesium Level 2.5H, Total Bilirubin 0.4, Gamma Glutamyl Transpeptidase 68, Aspartate Amino Transf (AST/SGOT) 72H, Alanine Aminotransferase (ALT/SGPT) 74, Alkaline Phosphatase 347H, C-Reactive Protein, Quantitative 10.4H, Pro-B-Type Natriuretic Peptide > 48648F, Total Protein 7.3, Albumin 1.4L, Globulin 5.9, Albumin/Globulin Ratio 0.2L, Triglycerides Level 17L , Cholesterol Level 99, LDL Cholesterol 52, HDL Cholesterol 37L, Cholesterol/HDL Ratio 2.7L, Thyroid Stimulating Hormone (TSH) 12.070H 07/11/20 05:19: POC Whole Blood Glucose 140H 07/11/20 10:50: White Blood Count 8.3, Red Blood Count 2.61L, Hemoglobin 7.5L, Hematocrit 23.9L, Mean Corpuscular Volume 92, Mean Corpuscular Hemoglobin 28.8, Mean Corpuscular Hemoglobin Concent 31.3L, Red Cell Distribution Width 15.0H, Platelet Count 193, Mean Platelet Volume 7.8, Neutrophils (%) (Auto) 64.1, Lymphocytes (%) (Auto) 13.3L, Monocytes (%) (Auto) 7.6, Eosinophils (%) (Auto) 13.7H, Basophils (%) (Auto) 1.2 07/11/20 12:38: POC Whole Blood Glucose 136H 07/11/20 17:02: POC Whole Blood Glucose 187H Height (Feet): 5 Height (Inches): 8.00 Weight (Pounds): 143 Objective Debilitated elderly man NCAT supple Coarse BS RRR abd sofft, flat, (+) GT s/p LLE BKA Assessment/Plan Status: progressing Assessment/Plan: Assessment Abnormal LFT - steadily improving (s/p US, CT, HIDA) - ? infectious hepatitis - Hep A and B negative - ? vascular - ? meds - ? other Gross hematuria - improved Acute anemia, ? urinary losses, ? GI loss ? surgical loss low platelet count low albumin Recommendations - Unable to have MRCP due to vent - continue to hold seroquel - follow LFT and CBC - no plans for GI w/u, per family discussion - TF - increased rate to give more Kcal and protein - Transfuse PRN Fco Stringer MD Jul 11, 2020 23:41
[2020-07-12] VITALS: BP 128/71
--- NOTE | 2020-07-12 | NUR ---
NURSE NOTES: Pt sleeping in the bed. No acute distress noted at this time. SR noted. Tolerating vent setting, saturating at 100%. No residual noted on GT, flushing well. Reposition done. Oral care refused, risk and benefits explained still refused. Bed alarm on. Call light within reach. Will continue to monitor.
--- NOTE | 2020-07-12 03:09 | NUR ---
NURSE NOTES: Pt watching television calmly. No acute distress noted at this time. Reposition done. Bed bath given. Oral care given. Will continue to monitor.
[2020-07-12 04:00] VITALS: BP 141/83
[2020-07-12 04:01] LABS: BASOPHILS % (AUTO) 0.9 % (0.0-2.0); EOSINOPHILS % (AUTO) 12.1 % (0.0-3.0); HEMATOCRIT 25.1 % (42.0-52.0); HEMOGLOBIN 8.3 G/DL (14.2-18.0); LYMPHOCYTES % (AUTO) 13.8 % (20.0-45.0); MEAN CORPUSCULAR VOLUME 89 FL (80-99); MONOCYTES % (AUTO) 7.9 % (1.0-10.0); NEUTROPHILS % (AUTO) 65.2 % (45.0-75.0); PLATELET COUNT 205 K/UL (150-450); RED BLOOD COUNT 2.83 M/UL (4.70-6.10); RED CELL DISTRIBUTION WIDTH 15.5 % (11.6-14.8); WHITE BLOOD COUNT 7.8 K/UL (4.8-10.8)
[2020-07-12 04:24] LABS: ALBUMIN 1.4 G/DL (3.4-5.0); ALBUMIN/GLOBULIN RATIO 0.2 (1.0-2.7); BILIRUBIN,TOTAL 0.4 MG/DL (0.2-1.0); CALCIUM 8.1 MG/DL (8.5-10.1); PHOSPHORUS 3.7 MG/DL (2.5-4.9); POTASSIUM 5.3 MMOL/L (3.5-5.1)
[2020-07-12] MEDS: Aluminum Hydroxide Gel Susp 15ml GT SCH ×4 (04:39→21:14)
[2020-07-12] MEDS: NovoLOG Insulin Flexpen SUBQ SCH ×5 (06:00→23:26)
--- NOTE | 2020-07-12 06:28 | NUR ---
NURSE NOTES: Left a message to regarding bleeding from trach, VS stable, hgb 8.3 and awaiting for call back.
--- NOTE | 2020-07-12 06:47 | General Progress Note ---
Subjective ROS Limited/Unobtainable: No Allergies: Coded Allergies: No Known Allergies (Unverified , 06/13/20) Objective Last 24 Hour Vital Signs Date Time Temp Pulse Resp B/P (MAP) Pulse Ox O2 Delivery O2 Flow Rate FiO2 07/12/20 04:00 75 07/12/20 04:00 95.0 73 22 141/83 (102) 98 07/12/20 04:00 40 07/12/20 04:00 Mechanical Ventilator 07/12/20 03:15 73 23 40 07/12/20 00:00 40 07/12/20 00:00 77 07/12/20 00:00 Mechanical Ventilator 07/12/20 00:00 96.2 74 22 128/71 (90) 97 07/11/20 22:30 74 20 100 Mechanical Ventilator 40 73 20 40 07/11/20 20:00 40 07/11/20 20:00 96.0 72 22 132/77 (95) 98 07/11/20 20:00 74 07/11/20 20:00 Mechanical Ventilator 07/11/20 18:42 74 24 40 07/11/20 16:00 97.2 74 23 132/72 (92) 99 07/11/20 16:00 40 07/11/20 16:00 Mechanical Ventilator 07/11/20 15:40 74 07/11/20 15:12 74 25 40 07/11/20 12:46 71 20 100 Mechanical Ventilator 40 70 20 99 07/11/20 12:46 70 20 100 Mechanical Ventilator 40 71 20 40 07/11/20 12:00 97.2 70 22 124/73 (90) 98 07/11/20 12:00 Mechanical Ventilator 07/11/20 12:00 40 07/11/20 11:42 69 07/11/20 11:12 70 21 40 07/11/20 08:00 Mechanical Ventilator 07/11/20 08:00 40 07/11/20 08:00 95.9 73 22 134/77 (96) 99 07/11/20 07:42 71 07/11/20 07:05 71 20 40 Intake and Output 07/11/20 07/12/20 19:00 07:00 Intake Total 960 ml 710 ml Output Total 150 ml Balance 810 ml 710 ml Free Water 120 ml 150 ml Tube Feeding 840 ml 560 ml Output Urine Total 50 ml Stool Total 100 ml Laboratory Tests 07/11/20 10:50: White Blood Count 8.3, Red Blood Count 2.61L, Hemoglobin 7.5L, Hematocrit 23.9L, Mean Corpuscular Volume 92, Mean Corpuscular Hemoglobin 28.8, Mean Corpuscular Hemoglobin Concent 31.3L, Red Cell Distribution Width 15.0H, Platelet Count 193, Mean Platelet Volume 7.8, Neutrophils (%) (Auto) 64.1, Lymphocytes (%) (Auto) 13.3L, Monocytes (%) (Auto) 7.6, Eosinophils (%) (Auto) 13.7H, Basophils (%) (Auto) 1.2 07/11/20 12:38: POC Whole Blood Glucose 136H 07/11/20 17:02: POC Whole Blood Glucose 187H 07/12/20 00:08: POC Whole Blood Glucose 137H 07/12/20 03:00: White Blood Count 7.8, Red Blood Count 2.83L, Hemoglobin 8.3L, Hematocrit 25.1L, Mean Corpuscular Volume 89, Mean Corpuscular Hemoglobin 29.2, Mean Corpuscular Hemoglobin Concent 32.9, Red Cell Distribution Width 15.5H, Platelet Count 205, Mean Platelet Volume 8.9, Neutrophils (%) (Auto) 65.2, Lymphocytes (%) (Auto) 13.8L, Monocytes (%) (Auto) 7.9, Eosinophils (%) (Auto) 12.1H, Basophils (%) (Auto) 0.9, Sodium Level 130L, Potassium Level 5.3H, Chloride Level 99, Carbon Dioxide Level 26, Anion Gap 5, Blood Urea Nitrogen 82H, Creatinine 4.0H, Estimat Glomerular Filtration Rate 19.1, Glucose Level 154H, Calcium Level 8.1L, Phosphorus Level 3.7, Total Bilirubin 0.4, Aspartate Amino Transf (AST/SGOT) 46H , Alanine Aminotransferase (ALT/SGPT) 64, Alkaline Phosphatase 334H, Total Protein 7.5, Albumin 1.4L, Globulin 6.1, Albumin/Globulin Ratio 0.2L 07/12/20 05:42: POC Whole Blood Glucose 132H Height (Feet): 5 Height (Inches): 8.00 Weight (Pounds): 143 General Appearance: no apparent distress EENT: normal ENT inspection Neck: supple Cardiovascular: normal rate Respiratory/Chest: decreased breath sounds Abdomen: normal bowel sounds, non tender, soft Extremities: non-tender Assessment/Plan Status: progressing Assessment/Plan: Assessment/Plan Status: progressing Assessment/Plan: Assessment Abnormal LFT - steadily improving (s/p US, CT, HIDA) - ? infectious hepatitis - Hep A and B negative - ? vascular - ? meds - ? other Gross hematuria - improved Acute anemia, ? urinary losses, ? GI loss ? surgical loss low platelet count low albumin Recommendations - Unable to have MRCP due to vent - continue to hold seroquel - follow LFT and CBC - no plans for GI w/u, per family discussion - TF - increased rate to give more Kcal and protein - Transfuse PRN Stan Otero MD Jul 12, 2020 06:47
--- NOTE | 2020-07-12 06:58 | NUR ---
NURSE NOTES: HD on going at the bedside. VS stable. No distress noted at this time. Will continue to monitor.
--- NOTE | 2020-07-12 07:14 | NUR ---
NURSE HAND-OFF REPORT: Important Events on Shift: Mild bleeding from Trach, left message to ; awaiting call back. Patient Status: No acute distress noted. Diet: Vital AF at 70cc/hr. Pending Orders: [] Pending Results/Labs:[] Pending MD notification:[] Latest Vital Signs: Temperature 95.0 , Pulse 75 , B/P 141 /83 , Respiratory Rate 22 , O2 SAT 98 , Mechanical Ventilator, O2 Flow Rate 15.0 . Vital Sign Comment: [] EKG Rhythm: Sinus Rhythm Rhythm change?: N MD Notified?: Y -Dr. Mcguire and Dr. Ambika BENDER Response: No New Orders Received Latest Santiago Fall Score: 75 Fall Risk: High Risk Safety Measures: Call light Within Reach, Bed Alarm Zone 2, Side Rails Side Rails x2, Bed position Low and Locked. Fall Precautions: Yellow [place]own Patient Fall Education Report given to MAX Encinas.
--- NOTE | 2020-07-12 07:45 | NUR ---
NURSE NOTES:handoff received from MAX Christensen. Patient received resting in bed being dialyzed at bedside. Patient is on trach to vent with settings of: Shiley 9, AC18, TV500, FI02 40% and PEEP of 5 tolerating well and saturating at 99%, patient also has elevator technician on with HR of 67 SR. Patient is placed on contact aspiration and fall precautions, bed in the low and locked position with call light within reach, explained to patient to call for assistance. Patient has G tube feeding on hold due to synthroid medication, will restart feeding. Patient has cabrera catheter patent and draining to gravity, wounds noted. Patient has Right IJ permacath and right hand peripheral Iv site clean dry and intact, will follow plan of care.
[2020-07-12 08:00] VITALS: BP 137/78
[2020-07-12] MEDS: Ascorbic Acid 500mg tab GT SCH (08:57)
[2020-07-12] MEDS: Gentamicin for inhalation INH SCH ×2 (10:23→22:00)
--- NOTE | 2020-07-12 10:30 | Nephrology Progress Note ---
Assessment/Plan Problem List: (1) KERRI (acute kidney injury) (2) Acute respiratory failure (3) Chronic respiratory failure (4) Anemia (5) Hyperkalemia Assessment Acute on chronic renal failure Anemia Respiratory failure acute on chronic Respiratory acidosis and hypoxia Hyperkalemia Plan July 12: Patient was dialyzed this morning. Labs reviewed. Discussed with RN. Patient remained stable for discharge from renal standpoint of view and to be continued on dialysis upon transfer. July 11: Last dialyzed July 09. Appears to may need dialysis tomorrow July 12. If discharged to subacute patient will have continued dialysis there. Discussed with field case manager and PMD. July 10: Last dialyzed July 09. Labs reviewed. Hyponatremia noted. Continue to monitor electrolytes and renal parameters. Hold off dialysis at this time and monitor renal parameters. Recheck TSH level. Continue per consultants. July 09: Due for dialysis today. Labs reviewed. Medication list reviewed. Continue same treatment plan. July 08: Patient was dialyzed yesterday. Today's labs reviewed. Electrolytes and renal parameters stable. Next dialysis tomorrow. Continue per consultants. July 07: Labs reviewed. Dialysis today. Abnormal electrolytes will be. Discussed with RN. Resolved after dialysis. Continue per consultants July 06: Labs reviewed. Dialyzed July 04. Due for dialysis July 07. Continue per consultants. July 05: Labs reviewed. Dialyzed yesterday. Electrolytes and renal parameters stable. Continue per consultants. Continue dialysis as needed. July 04: Labs reviewed. Due for dialysis today. Continue to monitor electrolytes and hemoglobin hematocrit. Continue per consultants. July 03: Lab reviewed. Will defer dialysis for July 04. Some blood oozing from the catheter site. General surgery to be informed. Electrolytes stable. Continue as is. July 02: Labs reviewed. Due for dialysis tomorrow. Hemoglobin higher. Stable electrolytes. Continue per consultants. July 01: Labs reviewed. Dialyzed yesterday. Patient has a permacath. Continue per consultants. Worsening anemia noted, deferred to automation test developer. June 30: Labs reviewed. Due for dialysis today. Patient appears to be needing hemodialysis for sometimes incoming future. Will arrange for placement of a tunneled catheter. Continue per consultants. Anemia management per automation test developer. June 29: Labs reviewed. Hemoglobin is higher. Next hemodialysis tomorrow June 30. Continue per consultants. June 28: Labs reviewed. Last dialyzed June 26. Hemoglobin remains low. Defer transfusion and work-up to automation test developer. Continue to follow-up renal parameters. June 27: Labs reviewed. Dialyzed yesterday. Hemoglobin low. Due for transfusion. Continue to monitor renal parameters and hemoglobin and hematocrit. June 26: Labs reviewed. Due for dialysis today. Continue per consultants. Continue to monitor liver enzymes. June 25: Labs reviewed. Will dialyze tomorrow. Continue per consultants. Check liver function enzymes. June 24: Dialyzed yesterday. Labs reviewed. Medication list reviewed. Liver enzymes remains elevated. Continue to monitor electrolytes renal parameters and LFTs. Hemodialysis in a.m. if needed. June 23: Patient will be dialyzed today again. Labs reviewed. Serum creatinine higher. Elevated liver enzymes persist. Patient full code. Continue per consultants. June 22: Patient dialyzed yesterday. Labs reviewed. Liver function tests and enzymes are elevated. Continue to monitor renal parameters and LFTs. Continue per consultants. Patient full code. June 21: Patient due for dialysis today. Labs and medication list reviewed. Discussed with RN. Continue to monitor renal parameters. June 20: Patient had an episode of bradycardia last night. Serum creatinine rising. Patient continues to have respiratory acidosis. Discussed with MAX Bond. Will order non tunneled dialysis catheter placement for initiation of dialysis treatment due to acute renal failure. Patient remains full code. I favor comfort care if bioethics consultation is sought and physicians on the team agreeable. June 19: No CHEM panel today. Low hemoglobin as of yesterday's lab results. Anemia management per Dr. Cueva. Continue to monitor renal parameters. June 18: Labs are reviewed. Hemoglobin lower. Creatinine higher. ABG not done yet. Patient full code. Continue per consultants. June 17: Labs reviewed. Hemoglobin low. Creatinine up to 3. Phosphorus levels elevated. Will start Amphojel via GT tube as a phosphorus binder. Monitor renal parameters. Check ABG. Continue per consultants. June 16: Labs reviewed. Serum creatinine mariana to 2.6. Abnormal electrolytes now normalized. Continue to monitor renal parameters and avoid nephrotoxic's. Continue to adjust pulmonary status as possible. June 15: ABG pH of 7.1. 2D echo suggestive of ejection fraction of 50%. Labs reviewed. Serum creatinine mariana. Will hold IV Lasix. Will give Kayexalate for high potassium and 1 amp of sodium bicarb. Albumin IV bolus given. Continue per consultants. Continue to monitor renal parameters. Kidney ultrasound ordered. June 14: As follow Pulmonary evaluation Sparrow catheter Hold IV fluid IV fluid, until 2D echo results available Kayexalate for high potassium IV Protonix 2D echocardiogram Anemia work-up More labs ordered Subjective ROS Limited/Unobtainable: Yes Objective Objective Last 24 Hour Vital Signs Date Time Temp Pulse Resp B/P (MAP) Pulse Ox O2 Delivery O2 Flow Rate FiO2 07/12/20 08:00 Mechanical Ventilator 07/12/20 08:00 96.3 76 22 137/78 (97) 99 07/12/20 08:00 69 07/12/20 08:00 40 07/12/20 04:00 75 07/12/20 04:00 95.0 73 22 141/83 (102) 98 07/12/20 04:00 40 07/12/20 04:00 Mechanical Ventilator 07/12/20 03:15 73 23 40 07/12/20 00:00 40 07/12/20 00:00 77 07/12/20 00:00 Mechanical Ventilator 07/12/20 00:00 96.2 74 22 128/71 (90) 97 07/11/20 22:30 74 20 100 Mechanical Ventilator 40 73 20 40 07/11/20 20:00 40 07/11/20 20:00 96.0 72 22 132/77 (95) 98 07/11/20 20:00 74 07/11/20 20:00 Mechanical Ventilator 07/11/20 18:42 74 24 40 07/11/20 16:00 97.2 74 23 132/72 (92) 99 07/11/20 16:00 40 07/11/20 16:00 Mechanical Ventilator 07/11/20 15:40 74 07/11/20 15:12 74 25 40 07/11/20 12:46 71 20 100 Mechanical Ventilator 40 70 20 99 07/11/20 12:46 70 20 100 Mechanical Ventilator 40 71 20 40 07/11/20 12:00 97.2 70 22 124/73 (90) 98 07/11/20 12:00 Mechanical Ventilator 07/11/20 12:00 40 07/11/20 11:42 69 07/11/20 11:12 70 21 40 Intake and Output 07/11/20 07/12/20 19:00 07:00 Intake Total 960 ml 970 ml Output Total 150 ml 300 ml Balance 810 ml 670 ml Free Water 120 ml 200 ml Tube Feeding 840 ml 770 ml Output Urine Total 50 ml 200 ml Stool Total 100 ml 100 ml Current Medications Medications (Trade) Dose Ordered Sig/Maryjane Route PRN Reason Start Time Stop Time Status Last Admin Dose Admin Acetaminophen (Tylenol) 650 mg Q4H PRN GT Mild Pain (Pain Scale 1-3) 06/18/20 23:00 07/18/20 22:59 Acetaminophen (Tylenol) 650 mg Q4HR PRN GT FEVER 06/14/20 09:45 07/14/20 09:44 07/10/20 20:33 Aluminum Hydroxide (Amphojel) 1,920 mg Q6H GT 06/17/20 10:00 07/17/20 09:59 07/12/20 08:57 Ascorbic Acid (Vitamin C) 500 mg DAILY GT 07/01/20 09:00 07/31/20 08:59 07/12/20 08:57 Cefepime HCl 500 mg/Dextrose 55 ml @ 110 mls/hr Q24H IV 07/08/20 16:00 07/15/20 15:59 07/11/20 16:06 Chlorhexidine Gluconate (Inés-Hex 2%) 1 applic DAILY@1999 TOPIC 06/21/20 20:00 09/19/20 19:59 07/11/20 21:12 Dextrose (Dextrose 50%) 25 ml Q30M PRN IV Hypoglycemia 06/28/20 18:30 09/26/20 18:29 Dextrose (Dextrose 50%) 50 ml Q30M PRN IV Hypoglycemia 06/28/20 18:30 09/26/20 18:29 Epoetin Bonilla (Epoetin Bonilla(ESRD on dialysis)) 10,000 unit TUE-TUE-TUE SUBQ 07/02/20 21:00 09/16/20 20:59 07/11/20 21:16 Gentamicin Sulfate (Gentamicin vial) 300 mg Q12HR@ INH 07/07/20 22:00 07/14/20 21:59 07/12/20 10:23 Haloperidol Lactate (Haldol) 5 mg Q6H PRN IM Agitation 06/21/20 23:15 08/05/20 23:14 06/25/20 18:17 Insulin Aspart (NovoLOG) EVERY 6 HOURS SUBQ 06/29/20 00:00 09/27/20 00:00 07/11/20 17:06 Lansoprazole (Prevacid) 30 mg Q12HR GT 06/30/20 21:00 07/30/20 20:59 07/12/20 08:57 Levothyroxine Sodium (Synthroid) 88 mcg DAILY@0630 GT 07/03/20 06:30 08/02/20 06:29 07/12/20 06:16 Vancomycin HCl ([facility] pharmacy to dose) 1 ea DAILY PRN MISC Per rx protocol 06/27/20 11:30 07/18/20 23:59 Laboratory Tests 07/11/20 10:50: White Blood Count 8.3, Red Blood Count 2.61L, Hemoglobin 7.5L, Hematocrit 23.9L, Mean Corpuscular Volume 92, Mean Corpuscular Hemoglobin 28.8, Mean Corpuscular Hemoglobin Concent 31.3L, Red Cell Distribution Width 15.0H, Platelet Count 193, Mean Platelet Volume 7.8, Neutrophils (%) (Auto) 64.1, Lymphocytes (%) (Auto) 13.3L, Monocytes (%) (Auto) 7.6, Eosinophils (%) (Auto) 13.7H, Basophils (%) (Auto) 1.2 07/11/20 12:38: POC Whole Blood Glucose 136H 07/11/20 17:02: POC Whole Blood Glucose 187H 07/12/20 00:08: POC Whole Blood Glucose 137H 07/12/20 03:00: White Blood Count 7.8, Red Blood Count 2.83L, Hemoglobin 8.3L, Hematocrit 25.1L, Mean Corpuscular Volume 89, Mean Corpuscular Hemoglobin 29.2, Mean Corpuscular Hemoglobin Concent 32.9, Red Cell Distribution Width 15.5H, Platelet Count 205, Mean Platelet Volume 8.9, Neutrophils (%) (Auto) 65.2, Lymphocytes (%) (Auto) 13.8L, Monocytes (%) (Auto) 7.9, Eosinophils (%) (Auto) 12.1H, Basophils (%) (Auto) 0.9, Sodium Level 130L, Potassium Level 5.3H, Chloride Level 99, Carbon Dioxide Level 26, Anion Gap 5, Blood Urea Nitrogen 82H, Creatinine 4.0H, Estimat Glomerular Filtration Rate 19.1, Glucose Level 154H, Calcium Level 8.1L, Phosphorus Level 3.7, Total Bilirubin 0.4, Aspartate Amino Transf (AST/SGOT) 46H , Alanine Aminotransferase (ALT/SGPT) 64, Alkaline Phosphatase 334H, Total Protein 7.5, Albumin 1.4L, Globulin 6.1, Albumin/Globulin Ratio 0.2L 07/12/20 05:42: POC Whole Blood Glucose 132H Height (Feet): 5 Height (Inches): 8.00 Weight (Pounds): 143 General Appearance: no apparent distress EENT: other - Trach to vent Cardiovascular: normal rate Respiratory/Chest: decreased breath sounds Abdomen: distended Leonidas Honeycutt MD Jul 12, 2020 10:30
--- NOTE | 2020-07-12 11:07 | NUR ---
NURSE NOTES:patient sister called for update on patient status, informed her that patient is stable and is watching TV in bed comfortably. Sister Daja also wanted to know when the sutures from the BKA would likely be removed, informed her that DR Mares is the surgeon following her brothers case. She mentioned that she would appreciate a call from the doctor (Vishnu) for and update on her brothers condition. Will let Dr Mares know of her wishes.
--- NOTE | 2020-07-12 11:17 | NUR ---
RD ASSESSMENT & RECOMMENDATIONS SEE CARE ACTIVITY FOR COMPLETE ASSESSMENT DAILY ESTIMATED NEEDS: Needs based on Wound, critical care, underweight/ 55.5kg 25-35 w/ HD kcals/kg 2181-0604 total kcals 1.25-2 g protein/kg 69-111 g total protein 25-30 mL/kg 2792-6948 total fluid mLs NUTRITION DIAGNOSIS: * Swallowing difficulty R/T respiratory status as evidenced by pt is trach/vent dep, PEG dep. CURRENT TF: VITAL 1.2 @ 70 ml x 22 hrs (held for Synthroid) ENTERAL NUTRITION RECOMMENDATIONS: Nepro @ 45ml/hr x 22 hrs (On Synthroid) + Prosource 1pkt BID to provide 960ml, 1728kcal, 78g +22g prot, 698ml free water * Rec TF change to Nepro: HD dep, elev K * Rec Nepro @ goal rate of 45ml/hr x 22 hrs (hold 1 hr before and after Synthroid) * Will provide 2093mg less K than current TF order * Prosource 1pkt BID to better meet protein needs(additional 22g prot) * HOB over 30 degrees/ water flush per MD ADDITIONAL RECOMMENDATIONS: * Per SNF: HT=69" [id number] -> rec daily calibrated bedscale wt * Monitor lytes: elev K, rec TF change to Nepro * Wound healing: RANDY BID + Nephrovite 1 tab qdaily * Probiotics for diarrhea . .
[2020-07-12] MEDS ORDERED: NS 275ml ONE (11:46)
[2020-07-12] MEDS ORDERED: Tubing IV Blood Pump IV ONE (11:46)
[2020-07-12 12:00] VITALS: BP 141/88
--- NOTE | 2020-07-12 12:11 | NUR ---
CASE MANAGEMENT:REVIEW SI;RESP FAILURE TRACH/VENT DEPENDENT,SEPSIS, RENAL FAILURE. 95.0 76 23 141/88 99% TRACH/VENT FIO2 40% H/H 8.3/25.1 NA 130 K+ 5.3 BUN 80 CR 4.0 BG 154 AST 46 ALP 334 ALB 1.4 IS;CEFEPIME IV Q24 GENTAMICIN INH Q12 PREVACID GT Q12 VIT C GT QD SYNTHROID GT QD KALYN STATUS DCP;TO MIGEL CONV DC PENDING INSURANCE SHAUNA TO [facility]
--- NOTE | 2020-07-12 13:05 | NUR ---
EQUIP TECH NOTE DC PENDING SHAUNA FROM [facility] TO [facility]. CALL MADE TO [facility] [phone] IN RE TO STATUS OF SHAUNA FOR [facility] CONV. S/W REP ALVARADO. PER CHRISTIANO, EMAIL WILL BE FORWARDED TO TIRE MANAGER CM WITH REQUEST TO RETURN CALL TO THIS FOR UPDATE ON SHAUNA STATUS. Addendum: 07/12/20 at 1323 by DANIELLE MUELLER LVN CALL BACK RECEIVED FROM TIRE MANAGER FRANKIE HAMEED. PER ZARI, SHAUNA FOR [facility] IS STILL PENDING AT THIS TIME. ZARI WILL FORWARD THE CASE TO [facility] WAITER/WAITRESS FOR HIGH PRIORITY PATIENTS DC IS PENDING SHAUNA. ADVISED TO FOLLOW UP ON TUESDAY FOR UPDATE.
--- NOTE | 2020-07-12 14:38 | Pulmonology Progress Note ---
Subjective ROS Limited/Unobtainable: Yes Constitutional: Denies: fever HEENT: Repors: no symptoms Respiratory: Reports: no symptoms Cardiovascular: Reports: no symptoms Gastrointestinal/Abdominal: Reports: diarrhea Genitourinary: Reports: no symptoms Psychiatric: Reports: other - off of restraint Allergies: Coded Allergies: No Known Allergies (Unverified , 06/13/20) All Systems: reviewed and negative except above Objective Last 24 Hour Vital Signs Date Time Temp Pulse Resp B/P (MAP) Pulse Ox O2 Delivery O2 Flow Rate FiO2 07/12/20 12:00 72 07/12/20 12:00 96.8 74 19 141/88 (105) 99 07/12/20 11:46 40 07/12/20 11:43 Mechanical Ventilator 07/12/20 10:38 75 23 100 Mechanical Ventilator 40 76 23 40 07/12/20 08:00 Mechanical Ventilator 07/12/20 08:00 96.3 76 22 137/78 (97) 99 07/12/20 08:00 69 07/12/20 08:00 40 07/12/20 07:10 76 23 40 07/12/20 04:00 75 07/12/20 04:00 95.0 73 22 141/83 (102) 98 07/12/20 04:00 40 07/12/20 04:00 Mechanical Ventilator 07/12/20 03:15 73 23 40 07/12/20 00:00 40 07/12/20 00:00 77 07/12/20 00:00 Mechanical Ventilator 07/12/20 00:00 96.2 74 22 128/71 (90) 97 07/11/20 22:30 74 20 100 Mechanical Ventilator 40 73 20 40 07/11/20 20:00 40 07/11/20 20:00 96.0 72 22 132/77 (95) 98 07/11/20 20:00 74 07/11/20 20:00 Mechanical Ventilator 07/11/20 18:42 74 24 40 07/11/20 16:00 97.2 74 23 132/72 (92) 99 07/11/20 16:00 40 07/11/20 16:00 Mechanical Ventilator 07/11/20 15:40 74 07/11/20 15:12 74 25 40 Intake and Output 07/11/20 07/12/20 18:59 06:59 Intake Total 890 ml 1040 ml Output Total 150 ml 300 ml Balance 740 ml 740 ml Free Water 120 ml 200 ml Tube Feeding 770 ml 840 ml Output Urine Total 50 ml 200 ml Stool Total 100 ml 100 ml General Appearance: WD/WN, no acute distress HEENT: status post trach Respiratory: chest wall non-tender, decreased breath sounds Cardiovascular: normal rate Abdomen: normal bowel sounds Extremities: no cyanosis, other - left lower leg amputee Microbiology Date/Time Source Procedure Growth Status 07/10/20 16:50 Nasopharynx SARS-CoV-2 RdRp Gene Assay - Final Complete Laboratory Tests 07/11/20 17:02: POC Whole Blood Glucose 187H 07/12/20 00:08: POC Whole Blood Glucose 137H 07/12/20 03:00: White Blood Count 7.8, Red Blood Count 2.83L, Hemoglobin 8.3L, Hematocrit 25.1L, Mean Corpuscular Volume 89, Mean Corpuscular Hemoglobin 29.2, Mean Corpuscular Hemoglobin Concent 32.9, Red Cell Distribution Width 15.5H, Platelet Count 205, Mean Platelet Volume 8.9, Neutrophils (%) (Auto) 65.2, Lymphocytes (%) (Auto) 13.8L, Monocytes (%) (Auto) 7.9, Eosinophils (%) (Auto) 12.1H, Basophils (%) (Auto) 0.9, Sodium Level 130L, Potassium Level 5.3H, Chloride Level 99, Carbon Dioxide Level 26, Anion Gap 5, Blood Urea Nitrogen 82H, Creatinine 4.0H, Estimat Glomerular Filtration Rate 19.1, Glucose Level 154H, Calcium Level 8.1L, Phosphorus Level 3.7, Total Bilirubin 0.4, Aspartate Amino Transf (AST/SGOT) 46H , Alanine Aminotransferase (ALT/SGPT) 64, Alkaline Phosphatase 334H, Total Protein 7.5, Albumin 1.4L, Globulin 6.1, Albumin/Globulin Ratio 0.2L 07/12/20 05:42: POC Whole Blood Glucose 132H 07/12/20 13:13: POC Whole Blood Glucose 140H Current Medications Medications (Trade) Dose Ordered Sig/Maryjane Route PRN Reason Start Time Stop Time Status Last Admin Dose Admin Acetaminophen (Tylenol) 650 mg Q4H PRN GT Mild Pain (Pain Scale 1-3) 06/18/20 23:00 07/18/20 22:59 07/12/20 13:22 Acetaminophen (Tylenol) 650 mg Q4HR PRN GT FEVER 06/14/20 09:45 07/14/20 09:44 07/10/20 20:33 Aluminum Hydroxide (Amphojel) 1,920 mg Q6H GT 06/17/20 10:00 07/17/20 09:59 07/12/20 08:57 Ascorbic Acid (Vitamin C) 500 mg DAILY GT 07/01/20 09:00 07/31/20 08:59 07/12/20 08:57 Cefepime HCl 500 mg/Dextrose 55 ml @ 110 mls/hr Q24H IV 07/08/20 16:00 07/15/20 15:59 07/11/20 16:06 Chlorhexidine Gluconate (Inés-Hex 2%) 1 applic DAILY@1999 TOPIC 06/21/20 20:00 09/19/20 19:59 07/11/20 21:12 Dextrose (Dextrose 50%) 25 ml Q30M PRN IV Hypoglycemia 06/28/20 18:30 09/26/20 18:29 Dextrose (Dextrose 50%) 50 ml Q30M PRN IV Hypoglycemia 06/28/20 18:30 09/26/20 18:29 Epoetin Bonilla (Epoetin Bonilla(ESRD on dialysis)) 10,000 unit SUBQ 07/02/20 21:00 09/16/20 20:59 07/11/20 21:16 Gentamicin Sulfate (Gentamicin vial) 300 mg Q12HR@10,22 INH 07/07/20 22:00 07/14/20 21:59 07/12/20 10:23 Haloperidol Lactate (Haldol) 5 mg Q6H PRN IM Agitation 06/21/20 23:15 08/05/20 23:14 06/25/20 18:17 Insulin Aspart (NovoLOG) EVERY 6 HOURS SUBQ 06/29/20 00:00 09/27/20 00:00 07/12/20 13:21 Lansoprazole (Prevacid) 30 mg Q12HR GT 06/30/20 21:00 07/30/20 20:59 07/12/20 08:57 Levothyroxine Sodium (Synthroid) 88 mcg DAILY@06 GT 07/03/20 06:30 08/02/20 06:29 07/12/20 06:16 Vancomycin HCl (Vanco pharmacy to dose) 1 ea DAILY PRN MISC Per rx protocol 06/27/20 11:30 07/18/20 23:59 Assessment/Plan Assessment/Plan IMPRESSION: 1. Chronic respiratory failure. 2. Hypoxemia. 3. Respiratory acidosis. 4. Anemia. 5. Leukocytosis. 6. DVT 7. S/p code blue 06/19/20 DISCUSSION: The patient's x-ray is markedly abnormal with bilateral infiltrates. I suspect he has pulmonary fibrosis. Latest CXR is unchanged to slightly improved COVID 19 pcr and antigen both negative No anticoagulation for DVT due to anemia S/p IVC filter placement Continue assist-control mechanical ventilation; currently FiO2 40%; SaO2 100%, broad-spectrum antibiotics. Transfusion as needed. PEEP 5 S/p HD- pt reports feeling better Will continue to decrease FiO2 as tolerated S/p permacath Await placement dc planning- awaiting response from insurance The care for this patient was discussed with my supervising physician. Seen and examined by Dr. Garcia as well. The time spent for this case was approximately 31 minutes [place]ico Treadwell Jul 12, 2020 14:38
[2020-07-12 16:00] VITALS: BP 146/81
[2020-07-12] MEDS: Cefepime HCl 500 MG in D5W 55 ML IV SCH ×2 (16:15→16:23)
--- NOTE | 2020-07-12 16:59 | General Progress Note ---
Subjective ROS Limited/Unobtainable: Yes Allergies: Coded Allergies: No Known Allergies (Unverified , 06/13/20) Objective Last 24 Hour Vital Signs Date Time Temp Pulse Resp B/P (MAP) Pulse Ox O2 Delivery O2 Flow Rate FiO2 07/12/20 16:00 93 07/12/20 16:00 Mechanical Ventilator 07/12/20 16:00 97.3 80 18 146/81 (102) 99 07/12/20 16:00 40 07/12/20 15:30 72 20 40 07/12/20 12:00 72 07/12/20 12:00 96.8 74 19 141/88 (105) 99 07/12/20 11:46 40 07/12/20 11:43 Mechanical Ventilator 07/12/20 10:38 75 23 100 Mechanical Ventilator 40 76 23 40 07/12/20 08:00 Mechanical Ventilator 07/12/20 08:00 96.3 76 22 137/78 (97) 99 07/12/20 08:00 69 07/12/20 08:00 40 07/12/20 07:10 76 23 40 07/12/20 04:00 75 07/12/20 04:00 95.0 73 22 141/83 (102) 98 07/12/20 04:00 40 07/12/20 04:00 Mechanical Ventilator 07/12/20 03:15 73 23 40 07/12/20 00:00 40 07/12/20 00:00 77 07/12/20 00:00 Mechanical Ventilator 07/12/20 00:00 96.2 74 22 128/71 (90) 97 07/11/20 22:30 74 20 100 Mechanical Ventilator 40 73 20 40 07/11/20 20:00 40 07/11/20 20:00 96.0 72 22 132/77 (95) 98 07/11/20 20:00 74 07/11/20 20:00 Mechanical Ventilator 07/11/20 18:42 74 24 40 Intake and Output 07/11/20 07/12/20 19:00 07:00 Intake Total 960 ml 970 ml Output Total 150 ml 300 ml Balance 810 ml 670 ml Free Water 120 ml 200 ml Tube Feeding 840 ml 770 ml Output Urine Total 50 ml 200 ml Stool Total 100 ml 100 ml Laboratory Tests 07/11/20 17:02: POC Whole Blood Glucose 187H 07/12/20 00:08: POC Whole Blood Glucose 137H 07/12/20 03:00: White Blood Count 7.8, Red Blood Count 2.83L, Hemoglobin 8.3L, Hematocrit 25.1L, Mean Corpuscular Volume 89, Mean Corpuscular Hemoglobin 29.2, Mean Corpuscular Hemoglobin Concent 32.9, Red Cell Distribution Width 15.5H, Platelet Count 205, Mean Platelet Volume 8.9, Neutrophils (%) (Auto) 65.2, Lymphocytes (%) (Auto) 13.8L, Monocytes (%) (Auto) 7.9, Eosinophils (%) (Auto) 12.1H, Basophils (%) (Auto) 0.9, Sodium Level 130L, Potassium Level 5.3H, Chloride Level 99, Carbon Dioxide Level 26, Anion Gap 5, Blood Urea Nitrogen 82H, Creatinine 4.0H, Estimat Glomerular Filtration Rate 19.1, Glucose Level 154H, Calcium Level 8.1L, Phosphorus Level 3.7, Total Bilirubin 0.4, Aspartate Amino Transf (AST/SGOT) 46H , Alanine Aminotransferase (ALT/SGPT) 64, Alkaline Phosphatase 334H, Total Protein 7.5, Albumin 1.4L, Globulin 6.1, Albumin/Globulin Ratio 0.2L 07/12/20 05:42: POC Whole Blood Glucose 132H 07/12/20 13:13: POC Whole Blood Glucose 140H Height (Feet): 5 Height (Inches): 8.00 Weight (Pounds): 143 Assessment/Plan Problem List: (1) Anemia ICD Codes: D64.9 - Anemia, unspecified SNOMED: 441098975 (2) KERRI (acute kidney injury) ICD Codes: N17.9 - Acute kidney failure, unspecified SNOMED: 3709877, 84516880 (3) Acute respiratory failure ICD Codes: J96.00 - Acute respiratory failure, unspecified whether with hypoxia or hypercapnia SNOMED: 46617482 Qualifiers: Qualified Codes: J96.02 - Acute respiratory failure with hypercapnia (4) Hyperkalemia ICD Codes: E87.5 - Hyperkalemia SNOMED: 91929501 (5) Abnormal laboratory test result ICD Codes: R89.9 - Unspecified abnormal finding in specimens from other organs, systems and tissues SNOMED: 432788144 (6) Anemia ICD Codes: D64.9 - Anemia, unspecified SNOMED: 848495570 Status: progressing Assessment/Plan: s/p trach and esrd on hd needs placement no fever reviewed chart and vitals s/p pulmonary edema pvc s/p acute mi Neida Apple MD Jul 12, 2020 16:59
--- NOTE | 2020-07-12 18:23 | Cardiac Electrophysiology PN ---
Assessment/Plan Assessment/Plan 1. Vent-dependent respirator failure. S/P tracheostomy. On 50% Fio2 Chest x-ray extensive bilateral pneumonia or ARDS. Off isolation EF 50%. Ruled out for AL On iv Abx 2. Sinus Tachycardia, likely due to respiratory failure and sepsis 3. Right femoral vein DVT. S/P IVC filter 06/18 4. Dysphagia, status post PEG placement. 5. Renal failure. S/P Right IJ Iron and on HD by Dr. Honeycutt. 6. Severe anemia, S/P multiple PRBCs for hematuria 7. High LFTs, s/p CT abdomen and pelvis and HIDA FU Dr. Stringer 8. 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 On 45% Fio2 and PEEP 5. S/P IVC filter S/P Right IJ Iron and first HD 06/21/20 Had CLINICAL EDUCATION COORDINATOR as HR dropped to 30 at 4 am 06/25/20 Got PRBC 06/27 and 06/28 S/P HD and PRBC 07/07/20. Had PRBC 07/11/20 DC pending Objective Last 24 Hour Vital Signs Date Time Temp Pulse Resp B/P (MAP) Pulse Ox O2 Delivery O2 Flow Rate FiO2 07/12/20 16:00 93 07/12/20 16:00 Mechanical Ventilator 07/12/20 16:00 97.3 80 18 146/81 (102) 99 07/12/20 16:00 40 07/12/20 15:30 72 20 40 07/12/20 12:00 72 07/12/20 12:00 96.8 74 19 141/88 (105) 99 07/12/20 11:46 40 07/12/20 11:43 Mechanical Ventilator 07/12/20 10:38 75 23 100 Mechanical Ventilator 40 76 23 40 07/12/20 08:00 Mechanical Ventilator 07/12/20 08:00 96.3 76 22 137/78 (97) 99 07/12/20 08:00 69 07/12/20 08:00 40 07/12/20 07:10 76 23 40 07/12/20 04:00 75 07/12/20 04:00 95.0 73 22 141/83 (102) 98 07/12/20 04:00 40 07/12/20 04:00 Mechanical Ventilator 12/5/20 03:15 73 23 40 07/12/20 00:00 40 07/12/20 00:00 77 07/12/20 00:00 Mechanical Ventilator 07/12/20 00:00 96.2 74 22 128/71 (90) 97 07/11/20 22:30 74 20 100 Mechanical Ventilator 40 73 20 40 07/11/20 20:00 40 07/11/20 20:00 96.0 72 22 132/77 (95) 98 07/11/20 20:00 74 07/11/20 20:00 Mechanical Ventilator 07/11/20 18:42 74 24 40 Intake and Output 07/11/20 07/12/20 19:00 07:00 Intake Total 960 ml 1040 ml Output Total 150 ml 300 ml Balance 810 ml 740 ml Free Water 120 ml 200 ml Tube Feeding 840 ml 840 ml Output Urine Total 50 ml 200 ml Stool Total 100 ml 100 ml Laboratory Tests Test 07/12/20 00:08 07/12/20 03:00 07/12/20 05:42 07/12/20 13:13 POC Whole Blood Glucose 137 MG/DL (74-106) H 132 MG/DL (74-106) H 140 MG/DL (74-106) H White Blood Count 7.8 K/UL (4.8-10.8) Red Blood Count 2.83 M/UL (4.70-6.10) L Hemoglobin 8.3 G/DL (14.2-18.0) L Hematocrit 25.1 % (42.0-52.0) L Mean Corpuscular Volume 89 FL (80-99) Mean Corpuscular Hemoglobin 29.2 PG (27.0-31.0) Mean Corpuscular Hemoglobin Concent 32.9 G/DL (32.0-36.0) Red Cell Distribution Width 15.5 % (11.6-14.8) H Platelet Count 205 K/UL (150-450) Mean Platelet Volume 8.9 FL (6.5-10.1) Neutrophils (%) (Auto) 65.2 % (45.0-75.0) Lymphocytes (%) (Auto) 13.8 % (20.0-45.0) L Monocytes (%) (Auto) 7.9 % (1.0-10.0) Eosinophils (%) (Auto) 12.1 % (0.0-3.0) H Basophils (%) (Auto) 0.9 % (0.0-2.0) Sodium Level 130 MMOL/L (136-145) L Potassium Level 5.3 MMOL/L (3.5-5.1) H Chloride Level 99 MMOL/L (98-107) Carbon Dioxide Level 26 MMOL/L (21-32) Anion Gap 5 mmol/L (5-15) Blood Urea Nitrogen 82 mg/dL (7-18) H Creatinine 4.0 MG/DL (0.55-1.30) H Estimat Glomerular Filtration Rate 19.1 mL/min (>60) Glucose Level 154 MG/DL (74-106) H Calcium Level 8.1 MG/DL (8.5-10.1) L Phosphorus Level 3.7 MG/DL (2.5-4.9) Total Bilirubin 0.4 MG/DL (0.2-1.0) Aspartate Amino Transf (AST/SGOT) 46 U/L (15-37) H Alanine Aminotransferase (ALT/SGPT) 64 U/L (12-78) Alkaline Phosphatase 334 U/L (46-116) H Total Protein 7.5 G/DL (6.4-8.2) Albumin 1.4 G/DL (3.4-5.0) L Globulin 6.1 g/dL Albumin/Globulin Ratio 0.2 (1.0-2.7) L Microbiology Date/Time Source Procedure Growth Status 07/10/20 16:50 Nasopharynx SARS-CoV-2 RdRp Gene Assay - Final Complete Objective HEAD AND NECK: Status post tracheostomy. Right IJ Iron in place LUNGS: Coarse rhonchi and basilar rales. CARDIOVASCULAR: Irregular S1 and S2 with no gallop. ABDOMEN: Soft. Status post G-tube. EXTREMITIES: No pitting edema. Lance Mcguire MD Jul 12, 2020 18:22
--- NOTE | 2020-07-12 19:30 | NUR ---
NURSE NOTES: pt report received from Huang SANTANA. pt is alert and oriented times 1, pt tracks with eyes. pt is on nurse monitoring showing NSR, no acute cardiac distress noted. pt is on trach vented sating 98% O2, no acute signs symptoms of resp distress. pt bed is low, locked, armed, call light within reach, bed rails up times 3. will follow plan of care.
--- NOTE | 2020-07-12 19:42 | NUR ---
NURSE HAND-OFF REPORT: Important Events on Shift: Patient Status: Vital A.F @70Ml/HR Diet: Pending Orders: Pending Results/Labs: Pending MD notification: Latest Vital Signs: Temperature 97.3 , Pulse 74 , B/P 146 /81 , Respiratory Rate 24 , O2 SAT 99 , Mechanical Ventilator, O2 Flow Rate 15.0 . Vital Sign Comment: EKG Rhythm: Sinus Rhythm Rhythm change?: N MD Notified?: Y -Dr. Mcguire and Dr. Ambika BENDER Response: No New Orders Received Latest Santiago Fall Score: 75 Fall Risk: High Risk Safety Measures: Call light Within Reach, Bed Alarm Zone 2, Side Rails Side Rails x2, Bed position Low and Locked. Fall Precautions: Yellow Gown Patient Fall Education Report given to Varun Ochoa RN.
[2020-07-12 20:00] VITALS: BP 137/71
[2020-07-12] MEDS: Dyna-Hex 2% Top Sol 2oz TOPIC SCH (20:19)
--- NOTE | 2020-07-12 21:30 | NUR ---
NURSE NOTES: pt turned. repositioned. assessed pts G tube, able to flush meds with no complication.
--- NOTE | 2020-07-12 23:07 | Surgery Progress Note ---
Surgery Progress Note Subjective Symptoms: improved, tolerating diet Objective Last 24 Hour Vital Signs Date Time Temp Pulse Resp B/P (MAP) Pulse Ox O2 Delivery O2 Flow Rate FiO2 07/12/20 22:01 77 22 98 Mechanical Ventilator 40 72 22 40 07/12/20 20:00 Mechanical Ventilator 07/12/20 20:00 40 07/12/20 20:00 97.9 71 19 137/71 (93) 99 07/12/20 19:21 73 07/12/20 18:42 74 24 40 07/12/20 16:00 93 07/12/20 16:00 Mechanical Ventilator 07/12/20 16:00 97.3 80 18 146/81 (102) 99 07/12/20 16:00 40 07/12/20 15:30 72 20 40 07/12/20 12:00 72 07/12/20 12:00 96.8 74 19 141/88 (105) 99 07/12/20 11:46 40 07/12/20 11:43 Mechanical Ventilator 07/12/20 10:38 75 23 100 Mechanical Ventilator 40 76 23 40 07/12/20 08:00 Mechanical Ventilator 07/12/20 08:00 96.3 76 22 137/78 (97) 99 07/12/20 08:00 69 07/12/20 08:00 40 07/12/20 07:10 76 23 40 07/12/20 04:00 75 07/12/20 04:00 95.0 73 22 141/83 (102) 98 07/12/20 04:00 40 07/12/20 04:00 Mechanical Ventilator 07/12/20 03:15 73 23 40 07/12/20 00:00 40 07/12/20 00:00 77 07/12/20 00:00 Mechanical Ventilator 07/12/20 00:00 96.2 74 22 128/71 (90) 97 I&O Intake and Output 07/11/20 07/12/20 19:00 07:00 Intake Total 960 ml 1040 ml Output Total 150 ml 300 ml Balance 810 ml 740 ml Free Water 120 ml 200 ml Tube Feeding 840 ml 840 ml Output Urine Total 50 ml 200 ml Stool Total 100 ml 100 ml Dressing: saturated Cardiovascular: RSR Respiratory: decreased breath sounds Abdomen: non-tender, present bowel sounds Extremities: other Laboratory Tests Test 07/12/20 00:08 07/12/20 03:00 07/12/20 05:42 07/12/20 13:13 POC Whole Blood Glucose 137 MG/DL (74-106) H 132 MG/DL (74-106) H 140 MG/DL (74-106) H White Blood Count 7.8 K/UL (4.8-10.8) Red Blood Count 2.83 M/UL (4.70-6.10) L Hemoglobin 8.3 G/DL (14.2-18.0) L Hematocrit 25.1 % (42.0-52.0) L Mean Corpuscular Volume 89 FL (80-99) Mean Corpuscular Hemoglobin 29.2 PG (27.0-31.0) Mean Corpuscular Hemoglobin Concent 32.9 G/DL (32.0-36.0) Red Cell Distribution Width 15.5 % (11.6-14.8) H Platelet Count 205 K/UL (150-450) Mean Platelet Volume 8.9 FL (6.5-10.1) Neutrophils (%) (Auto) 65.2 % (45.0-75.0) Lymphocytes (%) (Auto) 13.8 % (20.0-45.0) L Monocytes (%) (Auto) 7.9 % (1.0-10.0) Eosinophils (%) (Auto) 12.1 % (0.0-3.0) H Basophils (%) (Auto) 0.9 % (0.0-2.0) Sodium Level 130 MMOL/L (136-145) L Potassium Level 5.3 MMOL/L (3.5-5.1) H Chloride Level 99 MMOL/L (98-107) Carbon Dioxide Level 26 MMOL/L (21-32) Anion Gap 5 mmol/L (5-15) Blood Urea Nitrogen 82 mg/dL (7-18) H Creatinine 4.0 MG/DL (0.55-1.30) H Estimat Glomerular Filtration Rate 19.1 mL/min (>60) Glucose Level 154 MG/DL (74-106) H Calcium Level 8.1 MG/DL (8.5-10.1) L Phosphorus Level 3.7 MG/DL (2.5-4.9) Total Bilirubin 0.4 MG/DL (0.2-1.0) Aspartate Amino Transf (AST/SGOT) 46 U/L (15-37) H Alanine Aminotransferase (ALT/SGPT) 64 U/L (12-78) Alkaline Phosphatase 334 U/L (46-116) H Total Protein 7.5 G/DL (6.4-8.2) Albumin 1.4 G/DL (3.4-5.0) L Globulin 6.1 g/dL Albumin/Globulin Ratio 0.2 (1.0-2.7) L Plan Problems: (1) Leukocytosis Assessment & Plan: 54-year-old male multiple comorbidities admitted for abnormal chest x-ray potentially pneumonia leukocytosis abnormal labs. Patient identified to have a prior left BKA surgical sutures still in place as well as a surgical sacral wound with sutures in place. Considerations of dehiscence being identified and potential etiology of infection. After evaluation unlikely source of infection though the sacral wound was looked to be dehiscing at the inferior aspect. No acute surgical mention at this time We will discussed care plan with PCP Recommend follow-up with initial surgeon considerations of removal of surgical sutures Care plan initiated worsening lft's US ordered ? shayla monitor for bleeding from right chest wall cath change dressings Extensive airspace consolidations at the lung bases consistent with severe multifocal infiltrate. Associated, large bilateral pleural effusions. Evaluation of the abdominal viscera is markedly suboptimal due to poor CT technique and lack of intravenous contrast. No definite hepatic lesion. No definite cholelithiasis. Mild colon wall thickening. The spleen, pancreas, and adrenal glands are not visualized well enough reliable assessment. No definite hydronephrosis. The kidneys are hyperdense, correlate for medical renal disease. No nephrolithiasis. Sparrow catheter within a decompressed urinary bladder. Moderate diverticulosis, without acute diverticulitis. No small bowel obstruction. PEG tube presumably within the stomach. Atherosclerotic calcifications of the aorta. Low-attenuation of the intravascular blood pool, correlate for anemia. IVC filter, incidentally noted. Air within the subcutaneous fat overlying the sacrum with skin thickening, correlate with physical exam for sacral decubitus ulcer. Degenerative changes of the spine. Bilateral pars defects at L5 without anterolisthesis of L5 on S1. IMPRESSION: Extensive airspace consolidations at the lung bases consistent with severe multifocal infiltrate. Associated, large bilateral pleural effusions. Evaluation of the abdominal viscera is markedly suboptimal due to poor CT technique and lack of intravenous contrast. Moderate diverticulosis, without acute diverticulitis. No small bowel obstruction. PEG tube presumably within the stomach. Note, if there is suspicion for colitis consider repeat scan with improved CT technique/intravenous contrast. Mild gallbladder wall thickening without definite evidence of cholelithiasis. Air within the subcutaneous fat overlying the sacrum with skin thickening, correlate with physical exam for sacral decubitus ulcer. Bilateral pars defects at L5. The kidneys are hyperdense, correlate for medical renal disease.. There is prompt uptake within the liver with washout of radiotracer from the liver on subsequent imaging. There is excretion into the biliary ducts. Gallbladder activity is present in a timely fashion indicating patency of the cystic duct. Very scant bowel activity is demonstrated concerning for common bile duct obstruction or sphincter dysfunction. IMPRESSION: No evidence to suggest cholecystitis. Gallbladder activity is present in a timely fashion indicating patency of the cystic duct. Very little radiotracer noted in the small bowel. Correlate with LFTs as a degree of common bile duct obstruction or sphincter dysfunction not excluded. Consider further evaluation with MRCP. (2) Surgical wound dehiscence Assessment & Plan: Patient identified to have a left BKA surgical sutures in place flap looks like it is taken well no signs of infection at this time no signs of seroma hematoma or drainage. Unknown exact length or duration of potential prior left BKA and until then recommend leaving sutures in place as it may be too early though it does look well-healed. If able to obtain prior records we will be happy to remove sutures otherwise will need follow-up with primary surgeon furthermore patient identified to have a surgical wound in the sacral area seems he probably potentially had a stage IV sacral decubitus ulcer that had debridement and primary closure. Fortunately. Sutures are still in place and it looks like the inferior aspect may be slowly dehiscing. There is no significant drainage no foul odor no signs of active infection unknown if bone was palpable prior. Can consider removing surgical sutures but again would recommend obtaining prior records of possible prior to doing so. Also recommend following up with primary surgeon as this may need ongoing continued care. Will follow with recommendations and as information is available. Continue current care plan. Wash wounds daily with normal saline. Apply skin protectant Optifoam dressing. Turn every 2 hours. Offload pressure with pillows and air mattress. Nutritional optimization. Worsening leukocytosis. Patient continues to have dehiscence of the prior primarily closed sacral decubitus ulcer. The sutures are was nearly torn out and the wound is opening and saturating with stool with bowel movements now has rectal tube. Unfortunately I see significant concern given dehiscence and therefore sutures were cut at the bedside and wound immediately opened under some tension. Underlying Vicryl sutures identified. There is some backbleeding some granulation tissue but definitely no take or closure of the stage IV sacral decubitus ulcer that was identified. Nonexcisional debridement done with gauze and jorge layer of slough and biofilm was removed wound was cleaned packing dressings applied. No abscess no purulent drainage unlikely etiology of infection. (3) History of left below knee amputation (4) Malnutrition Assessment & Plan: DAILY ESTIMATED NEEDS: Needs based on Wound, critical care, underweight/ 55.5kg 25-33 (25-35 w/ HD) kcals/kg [id number] ([id number]) total kcals 1.25-2 g protein/kg 69-111 g total protein 25-30 mL/kg [id number] total fluid mLs NUTRITION DIAGNOSIS: * Swallowing difficulty R/T respiratory status as evidenced by pt is trach/vent dep, PEG dep. CURRENT TF: Nepro @ 40ml/hr x24 hrs ENTERAL NUTRITION RECOMMENDATIONS: Nepro @ 40ml/hr x 24 hrs to provide 960ml, 1728kcal, 78g prot, 698ml free water * Maintain current TF * HOB over 30 degrees/ water flush per MD ADDITIONAL RECOMMENDATIONS: * Per SNF: HT=69" XP=[id number] -> rec daily calibrated bedscale wt * Monitor lytes: elev K-> now wnl, phos now low * Wound healing: RANDY BID + Nephrovite 1 tab qdaily * Monitor for bm, last bm 06/19, now 06/24 * W/ HD rec to add Prosource 1 pack qdaily for added 11g pro/day. (5) Anemia (6) KERRI (acute kidney injury) (7) Acute respiratory failure (8) Hyperkalemia (9) Anemia (10) Abnormal laboratory test result (11) Chronic respiratory failure (12) Hyperglycemia (13) Hypothyroidism Azar Mares Jul 12, 2020 23:06
--- NOTE | 2020-07-12 23:27 | NUR ---
NURSE NOTES: spoke with Doctor Stuart Gallego doctor ordered A1C and TSH lab work for tomorrow morning. also reported pts vital signs and BS check of 120.
[2020-07-13] VITALS: BP 132/76
--- NOTE | 2020-07-13 01:40 | NUR ---
NURSE NOTES: assessed pt. pt is asleep. vital signs stable.
--- NOTE | 2020-07-13 03:40 | NUR ---
NURSE NOTES: changed pts vital AF tube feeding. pt is asleep, resting comfortably. vital signs stable.
[2020-07-13 04:00] VITALS: BP 138/72
[2020-07-13] MEDS: Aluminum Hydroxide Gel Susp 15ml GT SCH ×4 (04:41→21:33)
[2020-07-13] MEDS: NovoLOG Insulin Flexpen SUBQ SCH ×4 (05:58→23:58)
--- NOTE | 2020-07-13 06:44 | Hematology/Onc Progress Note ---
Assessment/Plan Assessment/Plan ASSESSMENT AND PLAN: #. Anemia that is likely due to chronic disease, r/o gi bleeding --> anemia panel has been reviewed, ferritin is >2000 --> no e/o hemolysis is noted --> transfuse on prn basis --> blood consent has been signed --> hgb 7.4-->7.4-->7-->6.7-->8-->7.5-->8.4-->9.1->8.1-->5.6->7.4-->7-->6.6->8-->7.5--> 7.9->7.6-->7.7 --> folic acid is wnl --> 1 unit prbc 06/18 --> epogen has been started # Acute DVT in the distal right common femoral vein and profunda femoris vein. --> DUPLEX. Acute DVT in the distal right common femoral vein and profunda femoris vein. 2. No evidence of left lower extremity DVT. --> cannot anticoagulate at this time --> 06/17 s/p ivc filter placement --> hold off anticoag # Leukocytosis is likely due to b/l infiltrates --> on abx as per id -> ABX yolis/vanc-->yolis/linezolid--> yolis/levaq-->linezolid->vanc-->cefepime/gent --> continue trend --> wbc 15-->12->9.5-->13-->14 # Thrombocytopenia likely due to infection --> plt 82-->67->78 --> hep and hiv neg # Respiratory failure in this patient with vent-dependent respiratory failure. 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 # Dysphagia --> status post PEG placement. # Renal failure. -> per Dr. Honeycutt. # Hyperkalemia and kayxelate as needed. # Dvt ppx scds Appreciate consultation and angela RN Subjective HEENT: Denies: no symptoms, eye pain, blurred vision, tearing, double vision, e ar pain, ear discharge, nose pain, nose congestion, throat pain, throat swelling, mouth pain, mouth swelling, other Cardiovascular: Denies: no symptoms, chest pain, edema, irregular heart rate, lightheadedness, palpitations, syncope, other Respiratory: Denies: no symptoms, cough, shortness of breath, SOB with excertion, SOB at rest, sputum, wheezing, other Gastrointestinal/Abdominal: Denies: no symptoms, abdomen distended, abdominal pain, black stools, tarry stools, blood in stool, constipated, diarrhea, difficulty swallowing, nausea, poor appetite, poor fluid intake, rectal bleeding, vomiting, other Genitourinary: Denies: no symptoms, burning, discharge, frequency, flank pain, hematuria, incontinence, pain, urgency, other Endocrine: Denies: no symptoms, excessive sweating, flushing, intolerance to cold, intolerance to heat, increased hunger, increased thirst, increased urine, unexplained weight gain, unexplained weight loss, other Hematologic/Lymphatic: Denies: no symptoms, anemia, easy bleeding, easy br uising, adenopathy, other Allergies: Coded Allergies: No Known Allergies (Unverified , 06/13/20) Subjective 06/16 meds noted, labs reviewed, vent to trach, for ivc filter potentially 06/17 labs noted, meds reviewed, for ivc filter once covid neg 06/18 labs are noted, on vent and gt, 1 unit prbc ordered 06/19 labs pending, is s/p ivcf placement yesterday 06/20 for hd nontunneled cathter placement, no bleeding 06/22 labs noted, no bleeding, found down overnight, got ct brain, is neg 06/23 overnight is agitated and requiring restraints 06/24 labs noted, meds reviewed, hgb pending for am, restraints 06/25 labs reviewed, meds noted, no bleeding, hgb improved 06/26 per Rn, with rapid response overnight hr is improved, meds noted 06/27 labs reviewed, meds noted, no bleeding, hgb 5.6, wbc elevated, to get 2 unit prbc 06/29 on vanc, wbc 13, hgb 7.3, plt 88, on vanc 06/30 meds reviewed, hgb at 7, occult +, as per gi care, with diarrhea 07/01 plt 67, hgb 6.6, to get 2 units prbc, angela RN at bedside 07/02 RUC permacath reviewed, minimal bleeding, meds noted 07/03 gt feeds, meds noted, no bleeding, labs reviewed 07/04 awake, alert is on ivf, meds noted, labs reviewed 07/06 labs reviewed, meds noted, gt, watching tv 07/07 a+o x2, no bleeding, meds reviewed, no major changes 07/08 at bedside angela rn, on abx, labs pending for today, no bleeding 07/09 comfortable overnight, on vent, labs reviewed, abx 07/10 is comfortable, has been refusing care, on vent, labs noted 07/11 nad, is on vent, no bleeding, meds noted, no bleeding 07/13 hgb 8.3, no bleeding or hemolysis, meds reviewed, recs consultants noted Objective Objective Current Medications Medications (Trade) Dose Ordered Sig/Maryjane Route PRN Reason Start Time Stop Time Status Last Admin Dose Admin Acetaminophen (Tylenol) 650 mg Q4H PRN GT Mild Pain (Pain Scale 1-3) 06/18/20 23:00 07/18/20 22:59 07/12/20 13:22 Acetaminophen (Tylenol) 650 mg Q4HR PRN GT FEVER 06/14/20 09:45 07/14/20 09:44 07/10/20 20:33 Aluminum Hydroxide (Amphojel) 1,920 mg Q6H GT 06/17/20 10:00 07/17/20 09:59 07/13/20 04:41 Ascorbic Acid (Vitamin C) 500 mg DAILY GT 07/01/20 09:00 07/31/20 08:59 07/12/20 08:57 Cefepime HCl 500 mg/Dextrose 55 ml @ 110 mls/hr Q24H IV 07/08/20 16:00 07/15/20 15:59 07/12/20 16:23 Chlorhexidine Gluconate (Inés-Hex 2%) 1 applic DAILY@1999 TOPIC 06/21/20 20:00 09/19/20 19:59 07/12/20 20:19 Dextrose (Dextrose 50%) 25 ml Q30M PRN IV Hypoglycemia 06/28/20 18:30 09/26/20 18:29 Dextrose (Dextrose 50%) 50 ml Q30M PRN IV Hypoglycemia 06/28/20 18:30 09/26/20 18:29 Epoetin Bonilla (Epoetin Bonilla(ESRD on dialysis)) 10,000 unit TUE-TUE-TUE SUBQ 07/02/20 21:00 09/16/20 20:59 07/11/20 21:16 Gentamicin Sulfate (Gentamicin vial) 300 mg Q12HR@10,22 INH 07/07/20 22:00 07/14/20 21:59 07/12/20 22:00 Haloperidol Lactate (Haldol) 5 mg Q6H PRN IM Agitation 06/21/20 23:15 08/05/20 23:14 06/25/20 18:17 Insulin Aspart (NovoLOG) EVERY 6 HOURS SUBQ 06/29/20 00:00 09/27/20 00:00 07/13/20 05:58 Lansoprazole (Prevacid) 30 mg Q12HR GT 06/30/20 21:00 07/30/20 20:59 07/12/20 20:19 Levothyroxine Sodium (Synthroid) 88 mcg DAILY@0630 GT 07/03/20 06:30 08/02/20 06:29 07/13/20 05:57 Vancomycin HCl ([facility] pharmacy to dose) 1 ea DAILY PRN MISC Per rx protocol 06/27/20 11:30 07/18/20 23:59 Last 24 Hour Vital Signs Date Time Temp Pulse Resp B/P (MAP) Pulse Ox O2 Delivery O2 Flow Rate FiO2 07/13/20 04:00 98.5 73 19 138/72 (94) 99 07/13/20 04:00 40 07/13/20 04:00 73 07/13/20 04:00 Mechanical Ventilator 07/13/20 03:48 73 25 40 07/13/20 00:00 72 07/13/20 00:00 40 07/13/20 00:00 98.3 76 19 132/76 (94) 99 07/13/20 00:00 Mechanical Ventilator 07/12/20 22:01 77 22 98 Mechanical Ventilator 40 72 22 40 07/12/20 20:00 Mechanical Ventilator 07/12/20 20:00 40 07/12/20 20:00 97.9 71 19 137/71 (93) 99 12/5/20 19:21 73 07/12/20 18:42 74 24 40 07/12/20 16:00 93 07/12/20 16:00 Mechanical Ventilator 07/12/20 16:00 97.3 80 18 146/81 (102) 99 07/12/20 16:00 40 07/12/20 15:30 72 20 40 07/12/20 12:00 72 07/12/20 12:00 96.8 74 19 141/88 (105) 99 07/12/20 11:46 40 07/12/20 11:43 Mechanical Ventilator 07/12/20 10:38 75 23 100 Mechanical Ventilator 40 76 23 40 07/12/20 08:00 Mechanical Ventilator 07/12/20 08:00 96.3 76 22 137/78 (97) 99 07/12/20 08:00 69 07/12/20 08:00 40 07/12/20 07:10 76 23 40 07/12/20 04:00 75 07/12/20 04:00 95.0 73 22 141/83 (102) 98 07/12/20 04:00 40 07/12/20 04:00 Mechanical Ventilator 07/12/20 03:15 73 23 40 07/12/20 00:00 40 07/12/20 00:00 77 07/12/20 00:00 Mechanical Ventilator 07/12/20 00:00 96.2 74 22 128/71 (90) 97 07/11/20 22:30 74 20 100 Mechanical Ventilator 40 73 20 40 07/11/20 20:00 40 07/11/20 20:00 96.0 72 22 132/77 (95) 98 07/11/20 20:00 74 07/11/20 20:00 Mechanical Ventilator 07/11/20 18:42 74 24 40 07/11/20 16:00 97.2 74 23 132/72 (92) 99 07/11/20 16:00 40 07/11/20 16:00 Mechanical Ventilator 07/11/20 15:40 74 07/11/20 15:12 74 25 40 07/11/20 12:46 71 20 100 Mechanical Ventilator 40 70 20 99 07/11/20 12:46 70 20 100 Mechanical Ventilator 40 71 20 40 07/11/20 12:00 97.2 70 22 124/73 (90) 98 07/11/20 12:00 Mechanical Ventilator 07/11/20 12:00 40 07/11/20 11:42 69 07/11/20 11:12 70 21 40 07/11/20 08:00 Mechanical Ventilator 07/11/20 08:00 40 07/11/20 08:00 95.9 73 22 134/77 (96) 99 07/11/20 07:42 71 07/11/20 07:05 71 20 40 Intake and Output 07/12/20 07/13/20 19:00 07:00 Intake Total 1200 ml 770 ml Output Total 30 ml Balance 1200 ml 740 ml Free Water 360 ml Tube Feeding 840 ml 770 ml Stool Total 30 ml Labs Test 07/10/20 12:48 07/10/20 17:59 07/11/20 03:30 07/11/20 05:19 POC Whole Blood Glucose 117 MG/DL (74-106) 164 MG/DL (74-106) 140 MG/DL (74-106) Sodium Level 132 MMOL/L (136-145) Potassium Level 4.9 MMOL/L (3.5-5.1) Chloride Level 100 MMOL/L (98-107) Carbon Dioxide Level 28 MMOL/L (21-32) Anion Gap 5 mmol/L (5-15) Blood Urea Nitrogen 66 mg/dL (7-18) Creatinine 3.7 MG/DL (0.55-1.30) Estimat Glomerular Filtration Rate 21.0 mL/min (>60) Glucose Level 123 MG/DL (74-106) Osmolality 305 mOsm/kg (297-317) Uric Acid 3.2 MG/DL (2.6-7.2) Calcium Level 7.7 MG/DL (8.5-10.1) Phosphorus Level 3.4 MG/DL (2.5-4.9) Magnesium Level 2.5 MG/DL (1.8-2.4) Total Bilirubin 0.4 MG/DL (0.2-1.0) Gamma Glutamyl Transpeptidase 68 U/L (5-85) Aspartate Amino Transf (AST/SGOT) 72 U/L (15-37) Alanine Aminotransferase (ALT/SGPT) 74 U/L (12-78) Alkaline Phosphatase 347 U/L (46-116) C-Reactive Protein, Quantitative 10.4 mg/dL (0.00-0.90) Pro-B-Type Natriuretic Peptide > 42840 pg/mL (0-125) Total Protein 7.3 G/DL (6.4-8.2) Albumin 1.4 G/DL (3.4-5.0) Globulin 5.9 g/dL Albumin/Globulin Ratio 0.2 (1.0-2.7) Triglycerides Level 17 MG/DL (30-150) Cholesterol Level 99 MG/DL (< 200) LDL Cholesterol 52 mg/dL (<100) HDL Cholesterol 37 MG/DL (40-60) Cholesterol/HDL Ratio 2.7 (3.3-4.4) Thyroid Stimulating Hormone (TSH) 12.070 uiU/mL (0.358-3.740) Test 07/11/20 10:50 07/11/20 12:38 07/11/20 17:02 07/12/20 00:08 White Blood Count 8.3 K/UL (4.8-10.8) Red Blood Count 2.61 M/UL (4.70-6.10) Hemoglobin 7.5 G/DL (14.2-18.0) Hematocrit 23.9 % (42.0-52.0) Mean Corpuscular Volume 92 FL (80-99) Mean Corpuscular Hemoglobin 28.8 PG (27.0-31.0) Mean Corpuscular Hemoglobin Concent 31.3 G/DL (32.0-36.0) Red Cell Distribution Width 15.0 % (11.6-14.8) Platelet Count 193 K/UL (150-450) Mean Platelet Volume 7.8 FL (6.5-10.1) Neutrophils (%) (Auto) 64.1 % (45.0-75.0) Lymphocytes (%) (Auto) 13.3 % (20.0-45.0) Monocytes (%) (Auto) 7.6 % (1.0-10.0) Eosinophils (%) (Auto) 13.7 % (0.0-3.0) Basophils (%) (Auto) 1.2 % (0.0-2.0) POC Whole Blood Glucose 136 MG/DL (74-106) 187 MG/DL (74-106) 137 MG/DL (74-106) Test 07/12/20 03:00 07/12/20 05:42 07/12/20 13:13 12/5/20 23:19 White Blood Count 7.8 K/UL (4.8-10.8) Red Blood Count 2.83 M/UL (4.70-6.10) Hemoglobin 8.3 G/DL (14.2-18.0) Hematocrit 25.1 % (42.0-52.0) Mean Corpuscular Volume 89 FL (80-99) Mean Corpuscular Hemoglobin 29.2 PG (27.0-31.0) Mean Corpuscular Hemoglobin Concent 32.9 G/DL (32.0-36.0) Red Cell Distribution Width 15.5 % (11.6-14.8) Platelet Count 205 K/UL (150-450) Mean Platelet Volume 8.9 FL (6.5-10.1) Neutrophils (%) (Auto) 65.2 % (45.0-75.0) Lymphocytes (%) (Auto) 13.8 % (20.0-45.0) Monocytes (%) (Auto) 7.9 % (1.0-10.0) Eosinophils (%) (Auto) 12.1 % (0.0-3.0) Basophils (%) (Auto) 0.9 % (0.0-2.0) Sodium Level 130 MMOL/L (136-145) Potassium Level 5.3 MMOL/L (3.5-5.1) Chloride Level 99 MMOL/L (98-107) Carbon Dioxide Level 26 MMOL/L (21-32) Anion Gap 5 mmol/L (5-15) Blood Urea Nitrogen 82 mg/dL (7-18) Creatinine 4.0 MG/DL (0.55-1.30) Estimat Glomerular Filtration Rate 19.1 mL/min (>60) Glucose Level 154 MG/DL (74-106) Calcium Level 8.1 MG/DL (8.5-10.1) Phosphorus Level 3.7 MG/DL (2.5-4.9) Total Bilirubin 0.4 MG/DL (0.2-1.0) Aspartate Amino Transf (AST/SGOT) 46 U/L (15-37) Alanine Aminotransferase (ALT/SGPT) 64 U/L (12-78) Alkaline Phosphatase 334 U/L (46-116) Total Protein 7.5 G/DL (6.4-8.2) Albumin 1.4 G/DL (3.4-5.0) Globulin 6.1 g/dL Albumin/Globulin Ratio 0.2 (1.0-2.7) POC Whole Blood Glucose 132 MG/DL (74-106) 140 MG/DL (74-106) 120 MG/DL (74-106) Test 07/13/20 04:18 Height (Feet): 5 Height (Inches): 8.00 Weight (Pounds): 143 Objective PHYSICAL EXAMINATION: VITAL SIGNS: reviewed HEAD AND NECK: Show status post tracheostomy. vent+ LUNGS: Coarse rhonchi and basilar rales. CARDIOVASCULAR: Shows irregular S1 and S2 with no gallop. ABDOMEN: Soft. Status post G-tube. EXTREMITIES: No pitting edema.++Left Jose Epperson MD Jul 13, 2020 06:44
--- NOTE | 2020-07-13 07:27 | NUR ---
NURSE HAND-OFF REPORT: Important Events on Shift:[NA] Patient Status: [stable] Diet: [Tube feeding] Pending Orders: [NA] Pending Results/Labs:[TSH and A1C] Pending MD notification:[NA] Latest Vital Signs: Temperature 98.5 , Pulse 73 , B/P 138 /72 , Respiratory Rate 19 , O2 SAT 99 , Mechanical Ventilator, O2 Flow Rate 15.0 . Vital Sign Comment: [stable] EKG Rhythm: Sinus Rhythm Rhythm change?: N MD Notified?: Jennifer -Dr. Mcguire and Dr. Ambika BENDER Response: No New Orders Received Latest Santiago Fall Score: 75 Fall Risk: High Risk Safety Measures: Call light Within Reach, Bed Alarm Zone 2, Side Rails Side Rails x2, Bed position Low and Locked. Fall Precautions: Yellow Gown Patient Fall Education Report given to [Hayley Ngo RN].
--- NOTE | 2020-07-13 07:30 | NUR ---
NOTES: Received pt from [facility], pt is awake and alert, pt has tracheostomy connected to ventilator WITH ac 18 tv 500 fio2 40%peep 5, pt has intact iv access RH 22g SL. Pt has Sparrow cath in place is working well. pt has g tube in place is working well. pt has RIJ PermCath. pt has rectal tube in place is working well. Pt is on continues heart monitoring. no complain of pain at this moment, all needs attended, bed is locked and is in the lowest position, call light within easy reach. will continue to monitor.
[2020-07-13 08:00] VITALS: BP 147/81
--- NOTE | 2020-07-13 08:00 | NUR ---
NURSE NOTES: pt refuses oral care x3 attempts, RN explained risks and benefits. will continue to monitor.
--- NOTE | 2020-07-13 08:36 | General Progress Note ---
Subjective ROS Limited/Unobtainable: No Allergies: Coded Allergies: No Known Allergies (Unverified , 06/13/20) Objective Last 24 Hour Vital Signs Date Time Temp Pulse Resp B/P (MAP) Pulse Ox O2 Delivery O2 Flow Rate FiO2 07/13/20 04:00 98.5 73 19 138/72 (94) 99 07/13/20 04:00 40 07/13/20 04:00 73 07/13/20 04:00 Mechanical Ventilator 07/13/20 03:48 73 25 40 07/13/20 00:00 72 07/13/20 00:00 40 07/13/20 00:00 98.3 76 19 132/76 (94) 99 07/13/20 00:00 Mechanical Ventilator 07/12/20 22:01 77 22 98 Mechanical Ventilator 40 72 22 40 07/12/20 20:00 Mechanical Ventilator 07/12/20 20:00 40 07/12/20 20:00 97.9 71 19 137/71 (93) 99 07/12/20 19:21 73 07/12/20 18:42 74 24 40 07/12/20 16:00 93 07/12/20 16:00 Mechanical Ventilator 07/12/20 16:00 97.3 80 18 146/81 (102) 99 07/12/20 16:00 40 07/12/20 15:30 72 20 40 07/12/20 12:00 72 07/12/20 12:00 96.8 74 19 141/88 (105) 99 07/12/20 11:46 40 07/12/20 11:43 Mechanical Ventilator 07/12/20 10:38 75 23 100 Mechanical Ventilator 40 76 23 40 l Intake and Output 07/12/20 07/13/20 19:00 07:00 Intake Total 1200 ml 770 ml Output Total 30 ml Balance 1200 ml 740 ml Free Water 360 ml Tube Feeding 840 ml 770 ml Stool Total 30 ml Laboratory Tests 07/12/20 13:13: POC Whole Blood Glucose 140H 07/12/20 23:19: POC Whole Blood Glucose 120H 07/13/20 04:18: Hemoglobin A1c 5.6, Thyroid Stimulating Hormone (TSH) 12.114H, Random Vancomycin Level 21.5 Height (Feet): 5 Height (Inches): 8.00 Weight (Pounds): 143 General Appearance: no apparent distress EENT: normal ENT inspection Neck: supple Cardiovascular: normal rate Respiratory/Chest: decreased breath sounds Abdomen: normal bowel sounds, non tender, soft Extremities: non-tender Assessment/Plan Status: progressing Assessment/Plan: Assessment/Plan Status: progressing Assessment/Plan: Assessment Abnormal LFT - steadily improving (s/p US, CT, HIDA) - ? infectious hepatitis - Hep A and B negative - ? vascular - ? meds - ? other Gross hematuria - improved Acute anemia, ? urinary losses, ? GI loss ? surgical loss low platelet count low albumin Recommendations - Unable to have MRCP due to vent - continue to hold seroquel - follow LFT and CBC - no plans for GI w/u, per family discussion - TF - - Transfuse PRN Stan Otero MD Jul 13, 2020 08:36
[2020-07-13] MEDS: Ascorbic Acid 500mg tab GT SCH (09:15)
--- NOTE | 2020-07-13 11:15 | Nephrology Progress Note ---
Assessment/Plan Problem List: (1) KERRI (acute kidney injury) (2) Acute respiratory failure (3) Chronic respiratory failure (4) Anemia (5) Hyperkalemia Assessment Acute on chronic renal failure Anemia Respiratory failure acute on chronic Respiratory acidosis and hypoxia Hyperkalemia Plan July 13: Dialyzed yesterday. Due for dialysis tomorrow. No labs drawn today. Continue same management. July 12: Patient was dialyzed this morning. Labs reviewed. Discussed with RN. Patient remained stable for discharge from renal standpoint of view and to be continued on dialysis upon transfer. July 11: Last dialyzed July 09. Appears to may need dialysis tomorrow July 12. If discharged to subacute patient will have continued dialysis there. Discussed with casework supervisor and PMD. July 10: Last dialyzed July 09. Labs reviewed. Hyponatremia noted. Continue to monitor electrolytes and renal parameters. Hold off dialysis at this time and monitor renal parameters. Recheck TSH level. Continue per consultants. July 09: Due for dialysis today. Labs reviewed. Medication list reviewed. Continue same treatment plan. July 08: Patient was dialyzed yesterday. Today's labs reviewed. Electrolytes and renal parameters stable. Next dialysis tomorrow. Continue per consultants. July 07: Labs reviewed. Dialysis today. Abnormal electrolytes will be. Discussed with RN. Resolved after dialysis. Continue per consultants July 06: Labs reviewed. Dialyzed July 04. Due for dialysis July 07. Continue per consultants. July 05: Labs reviewed. Dialyzed yesterday. Electrolytes and renal parameters stable. Continue per consultants. Continue dialysis as needed. July 04: Labs reviewed. Due for dialysis today. Continue to monitor electrolytes and hemoglobin hematocrit. Continue per consultants. July 03: Lab reviewed. Will defer dialysis for July 04. Some blood oozing from the catheter site. General surgery to be informed. Electrolytes stable. Continue as is. July 02: Labs reviewed. Due for dialysis tomorrow. Hemoglobin higher. Stable electrolytes. Continue per consultants. July 01: Labs reviewed. Dialyzed yesterday. Patient has a permacath. Continue per consultants. Worsening anemia noted, deferred to home health occupational therapist. June 30: Labs reviewed. Due for dialysis today. Patient appears to be needing hemodialysis for sometimes incoming future. Will arrange for placement of a tunneled catheter. Continue per consultants. Anemia management per home health occupational therapist. June 29: Labs reviewed. Hemoglobin is higher. Next hemodialysis tomorrow June 30. Continue per consultants. June 28: Labs reviewed. Last dialyzed June 26. Hemoglobin remains low. Defer transfusion and work-up to home health occupational therapist. Continue to follow-up renal parameters. June 27: Labs reviewed. Dialyzed yesterday. Hemoglobin low. Due for transfusion. Continue to monitor renal parameters and hemoglobin and sarah tocrit. June 26: Labs reviewed. Due for dialysis today. Continue per consultants. Continue to monitor liver enzymes. June 25: Labs reviewed. Will dialyze tomorrow. Continue per consultants. Check liver function enzymes. June 24: Dialyzed yesterday. Labs reviewed. Medication list reviewed. Liver enzymes remains elevated. Continue to monitor electrolytes renal p arameters and LFTs. Hemodialysis in a.m. if needed. June 23: Patient will be dialyzed today again. Labs reviewed. Serum c reatinine higher. Elevated liver enzymes persist. Patient full code. Continue per consultants. June 22: Patient dialyzed yesterday. Labs reviewed. Liver function tests and enzymes are elevated. Continue to monitor renal parameters and LFTs. Cont inue per consultants. Patient full code. June 21: Patient due for dialysis today. Labs and medication list reviewed. Discussed with RN. Continue to monitor renal parameters. June 20: Patient had an episode of bradycardia last night. Serum creatinine rising. Patient continues to have respiratory acidosis. Discussed with MAX Bond. Will order non tunneled dialysis catheter placement for initiation of dialysis treatment due to acute renal failure. Patient remains full code. I favor comfort care if bioethics consultation is sought and physicians on the team agreeable. June 19: No CHEM panel today. Low hemoglobin as of yesterday's lab results. Anemia management per Dr. Cueva. Continue to monitor renal parameters. June 18: Labs are reviewed. Hemoglobin lower. Creatinine higher. ABG not done yet. Patient full code. Continue per consultants. June 17: Labs reviewed. Hemoglobin low. Creatinine up to 3. Phosphorus levels elevated. Will start Amphojel via GT tube as a phosphorus binder. Monitor renal parameters. Check ABG. Continue per consultants. June 16: Labs reviewed. Serum creatinine mariana to 2.6. Abnormal electrolytes now normalized. Continue to monitor renal parameters and avoid nephrotoxic's. Continue to adjust pulmonary status as possible. June 15: ABG pH of 7.1. 2D echo suggestive of ejection fraction of 50%. Labs reviewed. Serum creatinine mariana. Will hold IV Lasix. Will give Kayexalate for high potassium and 1 amp of sodium bicarb. Albumin IV bolus given. Continue per consultants. Continue to monitor renal parameters. Kidney ultrasound ordered. June 14: As follow Pulmonary evaluation Sparrow catheter Hold IV fluid IV fluid, until 2D echo results available Kayexalate for high potassium IV Protonix 2D echocardiogram Anemia work-up More labs ordered Subjective ROS Limited/Unobtainable: Yes Objective Objective Last 24 Hour Vital Signs Date Time Temp Pulse Resp B/P (MAP) Pulse Ox O2 Delivery O2 Flow Rate FiO2 07/13/20 08:00 97.7 73 20 147/81 (103) 99 07/13/20 07:48 73 07/13/20 07:14 73 20 40 07/13/20 04:00 98.5 73 19 138/72 (94) 99 07/13/20 04:00 40 07/13/20 04:00 73 07/13/20 04:00 Mechanical Ventilator 07/13/20 03:48 73 25 40 07/13/20 00:00 72 07/13/20 00:00 40 07/13/20 00:00 98.3 76 19 132/76 (94) 99 07/13/20 00:00 Mechanical Ventilator 07/12/20 22:01 77 22 98 Mechanical Ventilator 40 72 22 40 07/12/20 20:00 Mechanical Ventilator 07/12/20 20:00 40 07/12/20 20:00 97.9 71 19 137/71 (93) 99 07/12/20 19:21 73 07/12/20 18:42 74 24 40 07/12/20 16:00 93 07/12/20 16:00 Mechanical Ventilator 07/12/20 16:00 97.3 80 18 146/81 (102) 99 07/12/20 16:00 40 07/12/20 15:30 72 20 40 07/12/20 12:00 72 07/12/20 12:00 96.8 74 19 141/88 (105) 99 07/12/20 11:46 40 07/12/20 11:43 Mechanical Ventilator Intake and Output 07/12/20 07/13/20 19:00 07:00 Intake Total 1200 ml 770 ml Output Total 30 ml Balance 1200 ml 740 ml Free Water 360 ml Tube Feeding 840 ml 770 ml Stool Total 30 ml Current Medications Medications (Trade) Dose Ordered Sig/Maryjane Route PRN Reason Start Time Stop Time Status Last Admin Dose Admin Acetaminophen (Tylenol) 650 mg Q4H PRN GT Mild Pain (Pain Scale 1-3) 06/18/20 23:00 07/18/20 22:59 07/12/20 13:22 Acetaminophen (Tylenol) 650 mg Q4HR PRN GT FEVER 06/14/20 09:45 07/14/20 09:44 07/10/20 20:33 Aluminum Hydroxide (Amphojel) 1,920 mg Q6H GT 06/17/20 10:00 07/17/20 09:59 07/13/20 09:15 Ascorbic Acid (Vitamin C) 500 mg DAILY GT 07/01/20 09:00 07/31/20 08:59 07/13/20 09:15 Cefepime HCl 500 mg/Dextrose 55 ml @ 110 mls/hr Q24H IV 07/08/20 16:00 07/15/20 15:59 07/12/20 16:23 Chlorhexidine Gluconate (Inés-Hex 2%) 1 applic DAILY@1999 TOPIC 06/21/20 20:00 09/19/20 19:59 07/12/20 20:19 Dextrose (Dextrose 50%) 25 ml Q30M PRN IV Hypoglycemia 06/28/20 18:30 09/26/20 18:29 Dextrose (Dextrose 50%) 50 ml Q30M PRN IV Hypoglycemia 06/28/20 18:30 09/26/20 18:29 Epoetin Bonilla (Epoetin Bonilla(ESRD on dialysis)) 10,000 unit TUE-TUE-TUE SUBQ 07/02/20 21:00 09/16/20 20:59 07/11/20 21:16 Gentamicin Sulfate (Gentamicin vial) 300 mg Q12HR@10, INH 07/07/20 22:00 07/14/20 21:59 07/12/20 22:00 Haloperidol Lactate (Haldol) 5 mg Q6H PRN IM Agitation 06/21/20 23:15 08/05/20 23:14 06/25/20 18:17 Insulin Aspart (NovoLOG) EVERY 6 HOURS SUBQ 06/29/20 00:00 09/27/20 00:00 07/13/20 05:58 Lansoprazole (Prevacid) 30 mg Q12HR GT 06/30/20 21:00 07/30/20 20:59 07/13/20 09:15 Levothyroxine Sodium (Synthroid) 88 mcg DAILY@0630 GT 07/03/20 06:30 08/02/20 06:29 07/13/20 05:57 Vancomycin HCl (Vanco pharmacy to dose) 1 ea DAILY PRN MISC Per rx protocol 06/27/20 11:30 07/18/20 23:59 Vancomycin HCl 750 mg/Sodium Chloride 275 ml @ 183.333 mls/hr ONCE IVPB 07/14/20 08:00 07/14/20 10:00 Laboratory Tests 07/12/20 13:13: POC Whole Blood Glucose 140H 07/12/20 23:19: POC Whole Blood Glucose 120H 07/13/20 04:18: Hemoglobin A1c 5.6, Thyroid Stimulating Hormone (TSH) 12.114H, Random Vancomycin Level 21.5 Height (Feet): 5 Height (Inches): 8.00 Weight (Pounds): 143 General Appearance: no apparent distress, lethargic Cardiovascular: normal rate Respiratory/Chest: decreased breath sounds Abdomen: distended Leonidas Honeycutt MD Jul 13, 2020 11:15
[2020-07-13] MEDS: Gentamicin for inhalation INH SCH ×2 (11:29→22:00)
[2020-07-13 11:44] VITALS: BP_SYST 140; BP_DIAS 7; BP_DIAS 70
--- NOTE | 2020-07-13 13:06 | Infectious Diseases Prog Note ---
Assessment/Plan Assessment/Plan IMPRESSION: Pneumonia with Pseudomonas & Providencia Hypothermia COVID19 X 2: negative Ventilator-dependent respiratory failure, Diabetes mellitus type 2, Hypertension, History of left BKA, Hypertension, anemia, Major depression, Pressure ulcer, Elevated transaminase, Hyperkalemia. Anemia R leg DVT s/p IVC filter Sacral osteomyelitis Severe anemia Acute renal failure ESRD Hypercapnic respiratory failure Hematuria Thrombocytopenia Diverticulosis Diarrhea, C. difficile negative RECOMMENDATION: Continue Vancomycin until 07/18 Continue Cefepime & Gentamicin inhaler until tonight Subjective ROS Limited/Unobtainable: Yes Constitutional: Denies: fever Allergies: Coded Allergies: No Known Allergies (Unverified , 06/13/20) Objective Last 24 Hour Vital Signs Date Time Temp Pulse Resp B/P (MAP) Pulse Ox O2 Delivery O2 Flow Rate FiO2 07/13/20 12:21 73 07/13/20 12:00 40 07/13/20 12:00 Mechanical Ventilator 07/13/20 11:44 97.2 73 20 140/7 (51) 99 07/13/20 11:20 72 25 99 Mechanical Ventilator 40 75 24 40 07/13/20 08:00 Mechanical Ventilator 07/13/20 08:00 97.7 73 20 147/81 (103) 99 07/13/20 08:00 40 07/13/20 07:48 73 07/13/20 07:14 73 20 40 07/13/20 04:00 98.5 73 19 138/72 (94) 99 07/13/20 04:00 40 07/13/20 04:00 73 07/13/20 04:00 Mechanical Ventilator 07/13/20 03:48 73 25 40 07/13/20 00:00 72 07/13/20 00:00 40 07/13/20 00:00 98.3 76 19 132/76 (94) 99 07/13/20 00:00 Mechanical Ventilator 07/12/20 22:01 77 22 98 Mechanical Ventilator 40 72 22 40 07/12/20 20:00 Mechanical Ventilator 07/12/20 20:00 40 07/12/20 20:00 97.9 71 19 137/71 (93) 99 07/12/20 19:21 73 07/12/20 18:42 74 24 40 07/12/20 16:00 93 07/12/20 16:00 Mechanical Ventilator 07/12/20 16:00 97.3 80 18 146/81 (102) 99 07/12/20 16:00 40 07/12/20 15:30 72 20 40 Height (Feet): 5 Height (Inches): 8.00 Weight (Pounds): 143 HEENT: mucous membranes moist, status post trach Respiratory/Chest: lungs clear, other - on ventilator Cardiovascular: normal rate, other - Permacath Abdomen: soft, non tender, other - GT feeding Extremities: no edema, other - left BKA Skin: ulcers, other - sacral Neurologic/Psychiatric: alert, responsive Microbiology Date/Time Source Procedure Growth Status 07/10/20 16:50 Nasopharynx SARS-CoV-2 RdRp Gene Assay - Final Complete Laboratory Tests Test 07/12/20 13:13 07/12/20 23:19 07/13/20 04:18 07/13/20 11:28 POC Whole Blood Glucose 140 MG/DL (74-106) H 120 MG/DL (74-106) H 179 MG/DL (74-106) H Hemoglobin A1c 5.6 % (4.3-6.0) Thyroid Stimulating Hormone (TSH) 12.114 uiU/mL (0.358-3.740) Random Vancomycin Level 21.5 ug/mL Current Medications Medications (Trade) Dose Ordered Sig/Maryjane Route PRN Reason Start Time Stop Time Status Last Admin Dose Admin Acetaminophen (Tylenol) 650 mg Q4H PRN GT Mild Pain (Pain Scale 1-3) 06/18/20 23:00 07/18/20 22:59 07/12/20 13:22 Acetaminophen (Tylenol) 650 mg Q4HR PRN GT FEVER 06/14/20 09:45 07/14/20 09:44 07/10/20 20:33 Aluminum Hydroxide (Amphojel) 1,920 mg Q6H GT 06/17/20 10:00 07/17/20 09:59 07/13/20 09:15 Ascorbic Acid (Vitamin C) 500 mg DAILY GT 07/01/20 09:00 07/31/20 08:59 07/13/20 09:15 Cefepime HCl 500 mg/Dextrose 55 ml @ 110 mls/hr Q24H IV 07/08/20 16:00 07/15/20 15:59 07/12/20 16:23 Chlorhexidine Gluconate (Inés-Hex 2%) 1 applic DAILY@2000 TOPIC 06/21/20 20:00 09/19/20 19:59 07/12/20 20:19 Dextrose (Dextrose 50%) 25 ml Q30M PRN IV Hypoglycemia 06/28/20 18:30 09/26/20 18:29 Dextrose (Dextrose 50%) 50 ml Q30M PRN IV Hypoglycemia 06/28/20 18:30 09/26/20 18:29 Epoetin Bonilla (Epoetin Bonilla(ESRD on dialysis)) 10,000 unit TUE-TUE-TUE SUBQ 07/02/20 21:00 09/16/20 20:59 07/11/20 21:16 Gentamicin Sulfate (Gentamicin vial) 300 mg Q12HR@ INH 07/07/20 22:00 07/14/20 21:59 07/13/20 11:29 Haloperidol Lactate (Haldol) 5 mg Q6H PRN IM Agitation 06/21/20 23:15 08/05/20 23:14 06/25/20 18:17 Insulin Aspart (NovoLOG) EVERY 6 HOURS SUBQ 06/29/20 00:00 09/27/20 00:00 07/13/20 11:40 Lansoprazole (Prevacid) 30 mg Q12HR GT 06/30/20 21:00 07/30/20 20:59 07/13/20 09:15 Levothyroxine Sodium (Synthroid) 88 mcg DAILY@0630 GT 07/03/20 06:30 08/02/20 06:29 07/13/20 05:57 Vancomycin HCl (Vanco pharmacy to dose) 1 ea DAILY PRN MISC Per rx protocol 06/27/20 11:30 07/18/20 23:59 Vancomycin HCl 750 mg/Sodium Chloride 275 ml @ 183.333 mls/hr ONCE IVPB 07/14/20 08:00 07/14/20 10:00 Paul Amador MD Jul 13, 2020 13:06
--- NOTE | 2020-07-13 14:02 | Pulmonology Progress Note ---
Subjective ROS Limited/Unobtainable: Yes Interval Events: none major Constitutional: Denies: fever HEENT: Repors: no symptoms Respiratory: Reports: no symptoms Cardiovascular: Reports: no symptoms Gastrointestinal/Abdominal: Reports: diarrhea Genitourinary: Reports: no symptoms Psychiatric: Reports: other - off of restraint Allergies: Coded Allergies: No Known Allergies (Unverified , 06/13/20) All Systems: reviewed and negative except above Objective Last 24 Hour Vital Signs Date Time Temp Pulse Resp B/P (MAP) Pulse Ox O2 Delivery O2 Flow Rate FiO2 07/13/20 12:21 73 07/13/20 12:00 40 07/13/20 12:00 Mechanical Ventilator 07/13/20 11:44 97.2 73 20 140/7 (51) 99 07/13/20 11:20 72 25 99 Mechanical Ventilator 40 75 24 40 07/13/20 08:00 Mechanical Ventilator 07/13/20 08:00 97.7 73 20 147/81 (103) 99 07/13/20 08:00 40 07/13/20 07:48 73 07/13/20 07:14 73 20 40 07/13/20 04:00 98.5 73 19 138/72 (94) 99 07/13/20 04:00 40 07/13/20 04:00 73 07/13/20 04:00 Mechanical Ventilator 07/13/20 03:48 73 25 40 07/13/20 00:00 72 07/13/20 00:00 40 07/13/20 00:00 98.3 76 19 132/76 (94) 99 07/13/20 00:00 Mechanical Ventilator 07/12/20 22:01 77 22 98 Mechanical Ventilator 40 72 22 40 07/12/20 20:00 Mechanical Ventilator 07/12/20 20:00 40 07/12/20 20:00 97.9 71 19 137/71 (93) 99 07/12/20 19:21 73 07/12/20 18:42 74 24 40 07/12/20 16:00 93 07/12/20 16:00 Mechanical Ventilator 07/12/20 16:00 97.3 80 18 146/81 (102) 99 07/12/20 16:00 40 07/12/20 15:30 72 20 40 Intake and Output 07/12/20 07/13/20 18:59 06:59 Intake Total 1200 ml 840 ml Output Total 30 ml Balance 1200 ml 810 ml Free Water 360 ml Tube Feeding 840 ml 840 ml Stool Total 30 ml Objective 07/13/2020 pt asleep; NAD General Appearance: WD/WN, no acute distress HEENT: status post trach Respiratory: chest wall non-tender, decreased breath sounds Cardiovascular: normal rate Abdomen: normal bowel sounds Genitourinary: other - Sparrow Extremities: no cyanosis, other - left lower leg amputee Microbiology Date/Time Source Procedure Growth Status 07/10/20 16:50 Nasopharynx SARS-CoV-2 RdRp Gene Assay - Final Complete Laboratory Tests 07/12/20 23:19: POC Whole Blood Glucose 120H 07/13/20 04:18: Hemoglobin A1c 5.6, Thyroid Stimulating Hormone (TSH) 12.114H, Random Vancomycin Level 21.5 07/13/20 11:28: POC Whole Blood Glucose 179H Current Medications Medications (Trade) Dose Ordered Sig/Maryjane Route PRN Reason Start Time Stop Time Status Last Admin Dose Admin Acetaminophen (Tylenol) 650 mg Q4H PRN GT Mild Pain (Pain Scale 1-3) 06/18/20 23:00 07/18/20 22:59 07/12/20 13:22 Acetaminophen (Tylenol) 650 mg Q4HR PRN GT FEVER 06/14/20 09:45 07/14/20 09:44 07/10/20 20:33 Aluminum Hydroxide (Amphojel) 1,920 mg Q6H GT 06/17/20 10:00 07/17/20 09:59 07/13/20 09:15 Ascorbic Acid (Vitamin C) 500 mg DAILY GT 07/01/20 09:00 07/31/20 08:59 07/13/20 09:15 Cefepime HCl 500 mg/Dextrose 55 ml @ 110 mls/hr Q24H IV 07/08/20 16:00 07/15/20 15:59 07/12/20 16:23 Chlorhexidine Gluconate (Inés-Hex 2%) 1 applic DAILY@2000 TOPIC 06/21/20 20:00 09/19/20 19:59 07/12/20 20:19 Dextrose (Dextrose 50%) 25 ml Q30M PRN IV Hypoglycemia 06/28/20 18:30 09/26/20 18:29 Dextrose (Dextrose 50%) 50 ml Q30M PRN IV Hypoglycemia 06/28/20 18:30 09/26/20 18:29 Epoetin Bonilla (Epoetin Bonilla(ESRD on dialysis)) 10,000 unit TUE-TUE-TUE SUBQ 07/02/20 21:00 09/16/20 20:59 07/11/20 21:16 Gentamicin Sulfate (Gentamicin vial) 300 mg Q12HR@10,22 INH 07/07/20 22:00 07/14/20 21:59 07/13/20 11:29 Haloperidol Lactate (Haldol) 5 mg Q6H PRN IM Agitation 06/21/20 23:15 08/05/20 23:14 06/25/20 18:17 Insulin Aspart (NovoLOG) EVERY 6 HOURS SUBQ 06/29/20 00:00 09/27/20 00:00 07/13/20 11:40 Lansoprazole (Prevacid) 30 mg Q12HR GT 06/30/20 21:00 07/30/20 20:59 07/13/20 09:15 Levothyroxine Sodium (Synthroid) 88 mcg DAILY@0630 GT 07/03/20 06:30 08/02/20 06:29 07/13/20 05:57 Vancomycin HCl (Vanco pharmacy to dose) 1 ea DAILY PRN MISC Per rx protocol 06/27/20 11:30 07/18/20 23:59 Vancomycin HCl 750 mg/Sodium Chloride 275 ml @ 183.333 mls/hr ONCE IVPB 07/14/20 08:00 07/14/20 10:00 Assessment/Plan Assessment/Plan IMPRESSION: 1. Chronic respiratory failure. 2. Hypoxemia. - AC 18, TV 500, FiO2 40, PEEP 5 3. Respiratory acidosis. 4. Anemia. 5. Leukocytosis. 6. DVT 7. S/p code blue 06/19/20 DISCUSSION: The patient's x-ray is markedly abnormal with bilateral infiltrates. suspect he has pulmonary fibrosis. Latest CXR is unchanged to slightly improved COVID 19 pcr and antigen both negative No anticoagulation for DVT due to anemia S/p IVC filter placement Continue assist-control mechanical ventilation; currently FiO2 40%; SaO2 100%, broad-spectrum antibiotics. Transfusion as needed. PEEP 5 S/p HD- pt reports feeling better due for dialysis tomorrow Will continue to decrease FiO2 as tolerated S/p permacath dc planning- awaiting response from insurance The care for this patient was discussed with my supervising physician. Seen and examined by Dr. Garcia as well. The history of Beto Cedeño has been reviewed and management options for him have been examined and discussed by Sylvester Garcia. I have personally examined and interviewed the patient. The time spent for this case was approximately 31 minutes [place] Treadwell Jul 13, 2020 14:02 Sylvester Garcia MD Jul 13, 2020 16:45
[2020-07-13 16:00] VITALS: BP 144/73
--- NOTE | 2020-07-13 16:02 | Surgery Progress Note ---
Surgery Progress Note Subjective Symptoms: improved, tolerating diet, passing flatus, BM Objective Last 24 Hour Vital Signs Date Time Temp Pulse Resp B/P (MAP) Pulse Ox O2 Delivery O2 Flow Rate FiO2 07/13/20 15:23 74 07/13/20 12:21 73 07/13/20 12:00 40 07/13/20 12:00 Mechanical Ventilator 07/13/20 11:44 97.2 73 20 140/7 (51) 99 07/13/20 11:20 72 25 99 Mechanical Ventilator 40 75 24 40 07/13/20 08:00 Mechanical Ventilator 07/13/20 08:00 97.7 73 20 147/81 (103) 99 07/13/20 08:00 40 07/13/20 07:48 73 07/13/20 07:14 73 20 40 07/13/20 04:00 98.5 73 19 138/72 (94) 99 07/13/20 04:00 40 07/13/20 04:00 73 07/13/20 04:00 Mechanical Ventilator 07/13/20 03:48 73 25 40 07/13/20 00:00 72 07/13/20 00:00 40 07/13/20 00:00 98.3 76 19 132/76 (94) 99 07/13/20 00:00 Mechanical Ventilator 07/12/20 22:01 77 22 98 Mechanical Ventilator 40 72 22 40 07/12/20 20:00 Mechanical Ventilator 07/12/20 20:00 40 07/12/20 20:00 97.9 71 19 137/71 (93) 99 07/12/20 19:21 73 07/12/20 18:42 74 24 40 I&O Intake and Output 07/12/20 07/13/20 18:59 06:59 Intake Total 1200 ml 840 ml Output Total 30 ml Balance 1200 ml 810 ml Free Water 360 ml Tube Feeding 840 ml 840 ml Stool Total 30 ml Dressing: saturated Cardiovascular: RSR Respiratory: decreased breath sounds Abdomen: soft, non-tender, present bowel sounds, non-distended Extremities: no cyanosis, pulses, other Laboratory Tests Test 07/12/20 23:19 07/13/20 04:18 07/13/20 11:28 POC Whole Blood Glucose 120 MG/DL (74-106) H 179 MG/DL (74-106) H Hemoglobin A1c 5.6 % (4.3-6.0) Thyroid Stimulating Hormone (TSH) 12.114 uiU/mL (0.358-3.740) Random Vancomycin Level 21.5 ug/mL Plan Problems: (1) Leukocytosis Assessment & Plan: 54-year-old male multiple comorbidities admitted for abnormal chest x-ray potentially pneumonia leukocytosis abnormal labs. Patient identified to have a prior left BKA surgical sutures still in place as well as a surgical sacral wound with sutures in place. Considerations of dehiscence being identified and potential etiology of infection. After evaluation unlikely source of infection though the sacral wound was looked to be dehiscing at the inferior aspect. No acute surgical mention at this time We will discussed care plan with PCP Recommend follow-up with initial surgeon considerations of removal of surgical sutures Care plan initiated worsening lft's US ordered ? shayla monitor for bleeding from right chest wall cath change dressings Extensive airspace consolidations at the lung bases consistent with severe multifocal infiltrate. Associated, large bilateral pleural effusions. Evaluation of the abdominal viscera is markedly suboptimal due to poor CT technique and lack of intravenous contrast. No definite hepatic lesion. No definite cholelithiasis. Mild colon wall thickening. The spleen, pancreas, and adrenal glands are not visualized well enough reliable assessment. No definite hydronephrosis. The kidneys are hyperdense, correlate for medical renal disease. No nephrolithiasis. Sparrow catheter within a decompressed urinary bladder. Moderate diverticulosis, without acute diverticulitis. No small bowel obstruction. PEG tube presumably within the stomach. Atherosclerotic calcifications of the aorta. Low-attenuation of the intravascular blood pool, correlate for anemia. IVC filter, incidentally noted. Air within the subcutaneous fat overlying the sacrum with skin thickening, correlate with physical exam for sacral decubitus ulcer. Degenerative changes of the spine. Bilateral pars defects at L5 without anterolisthesis of L5 on S1. IMPRESSION: Extensive airspace consolidations at the lung bases consistent with severe multifocal infiltrate. Associated, large bilateral pleural effusions. Evaluation of the abdominal viscera is markedly suboptimal due to poor CT technique and lack of intravenous contrast. Moderate diverticulosis, without acute diverticulitis. No small bowel obstruction. PEG tube presumably within the stomach. Note, if there is suspicion for colitis consider repeat scan with improved CT technique/intravenous contrast. Mild gallbladder wall thickening without definite evidence of cholelithiasis. Air within the subcutaneous fat overlying the sacrum with skin thickening, correlate with physical exam for sacral decubitus ulcer. Bilateral pars defects at L5. The kidneys are hyperdense, correlate for medical renal disease.. There is prompt uptake within the liver with washout of radiotracer from the liver on subsequent imaging. There is excretion into the biliary ducts. Gallbladder activity is present in a timely fashion indicating patency of the cystic duct. Very scant bowel activity is demonstrated concerning for common bile duct obstruction or sphincter dysfunction. IMPRESSION: No evidence to suggest cholecystitis. Gallbladder activity is present in a timely fashion indicating patency of the cystic duct. Very little radiotracer noted in the small bowel. Correlate with LFTs as a degree of common bile duct obstruction or sphincter dysfunction not excluded. Consider further evaluation with MRCP. (2) Surgical wound dehiscence Assessment & Plan: Patient identified to have a left BKA surgical sutures in place flap looks like it is taken well no signs of infection at this time no signs of seroma hematoma or drainage. Unknown exact length or duration of potential prior left BKA and until then recommend leaving sutures in place as it may be too early though it does look well-healed. If able to obtain prior records we will be happy to remove sutures otherwise will need follow-up with primary surgeon furthermore patient identified to have a surgical wound in the sacral area seems he probably potentially had a stage IV sacral decubitus ulcer that had debridement and primary closure. Fortunately. Sutures are still in place and it looks like the inferior aspect may be slowly dehiscing. There is no significant drainage no foul odor no signs of active infection unknown if bone was palpable prior. Can consider removing surgical sutures but again would recommend obtaining prior records of possible prior to doing so. Also recommend following up with primary surgeon as this may need ongoing continued care. Will follow with recommendations and as information is available. Continue current care plan. Wash wounds daily with normal saline. Apply skin protectant Optifoam dressing. Turn every 2 hours. Offload pressure with pillows and air mattress. Nutritional optimization. Worsening leukocytosis. Patient continues to have dehiscence of the prior primarily closed sacral decubitus ulcer. The sutures are was nearly torn out and the wound is opening and saturating with stool with bowel movements now has rectal tube. Unfortunately I see significant concern given dehiscence and there fore sutures were cut at the bedside and wound immediately opened under some tension. Underlying Vicryl sutures identified. There is some backbleeding some granulation tissue but definitely no take or closure of the stage IV sacral decubitus ulcer that was identified. Nonexcisional debridement done with gauze and jorge layer of slough and biofilm was removed wound was cleaned packing dressings applied. No abscess no purulent drainage unlikely etiology of infection. (3) History of left below knee amputation (4) Malnutrition Assessment & Plan: DAILY ESTIMATED NEEDS: Needs based on Wound, critical care, underweight/ 55.5kg 25-33 (25-35 w/ HD) kcals/kg [id number] ([id number]) total kcals 1.25-2 g protein/kg 69-111 g total protein 25-30 mL/kg 5692-4695 total fluid mLs NUTRITION DIAGNOSIS: * Swallowing difficulty R/T respiratory status as evidenced by pt is trach/vent dep, PEG dep. CURRENT TF: Nepro @ 40ml/hr x24 hrs ENTERAL NUTRITION RECOMMENDATIONS: Nepro @ 40ml/hr x 24 hrs to provide 960ml, 1728kcal, 78g prot, 698ml free water * Maintain current TF * HOB over 30 degrees/ water flush per MD ADDITIONAL RECOMMENDATIONS: * Per SNF: HT=69" [id number] -> rec daily calibrated bedscale wt * Monitor lytes: elev K-> now wnl, phos now low * Wound healing: RANDY BID + Nephrovite 1 tab qdaily * Monitor for bm, last bm 06/19, now 06/24 * W/ HD rec to add Prosource 1 pack qdaily for added 11g pro/day. (5) Anemia (6) KERRI (acute kidney injury) (7) Acute respiratory failure (8) Hyperkalemia (9) Anemia (10) Abnormal laboratory test result (11) Chronic respiratory failure (12) Hyperglycemia (13) Hypothyroidism Azar Mares Jul 13, 2020 16:02
[2020-07-13] MEDS: Cefepime HCl 500 MG in D5W 55 ML IV SCH (16:09)
--- NOTE | 2020-07-13 17:39 | NUR ---
NURSE NOTES: pt refuses oral care again x3 attempts, RN explained risks and benefits. will continue to monitor.
--- NOTE | 2020-07-13 19:00 | NUR ---
NURSE NOTES: Received patient from Dheeraj SANTANA. Patient is sleeping in bed. Sinus rhythm on the monitor. Trach to vent at prescribed settings, tolerating well. Sparrow catheter and rectal tube in place draining well to gravity. Gtube and tube feeding running at prescribed rate, tolerating well. Bed to lowest position, side rails up x2, call light with in easy reach. Will continue plan of care.
--- NOTE | 2020-07-13 19:00 | NUR ---
NURSE HAND-OFF REPORT: Important Events on Shift: Patient Status: Diet: Pending Orders: Pending Results/Labs: Pending MD notification: Latest Vital Signs: Temperature 97.3 , Pulse 73 , B/P 144 /73 , Respiratory Rate 20 , O2 SAT 98 , Mechanical Ventilator, O2 Flow Rate 15.0 . Vital Sign Comment: EKG Rhythm: Sinus Rhythm Rhythm change?: N MD Notified?: Y -Dr. Mcguire and Dr. Ambika BENDER Response: No New Orders Received Latest Santiago Fall Score: 75 Fall Risk: High Risk Safety Measures: Call light Within Reach, Bed Alarm Zone 2, Side Rails Side Rails x2, Bed position Low and Locked. Fall Precautions: Yellow Gown Patient Fall Education Report given to . Pt is awake and stable, no stress noted, Endorsed plan of care.
[2020-07-13 20:00] VITALS: BP 141/87
[2020-07-13] MEDS: Dyna-Hex 2% Top Sol 2oz TOPIC SCH (20:08)
--- NOTE | 2020-07-13 20:31 | Cardiac Electrophysiology PN ---
Assessment/Plan Assessment/Plan 1. Vent-dependent respirator failure. S/P tracheostomy. On 50% Fio2 Chest x-ray extensive bilateral pneumonia or ARDS. Off isolation EF 50%. Ruled out for PR On iv Abx 2. Sinus Tachycardia, likely due to respiratory failure and sepsis 3. Right femoral vein DVT. S/P IVC filter 06/18 4. Dysphagia, status post PEG placement. 5. Renal failure. S/P Right IJ Iron and on HD by Dr. Honeycutt. 6. Severe anemia, S/P multiple PRBCs for hematuria 7. High LFTs, s/p CT abdomen and pelvis and HIDA FU Dr. Stringer 8. Transient bradycardia, resolved DW meeting manager pending Subjective Subjective On the Vent off isolation. On 45% Fio2 and PEEP 5. S/P IVC filter S/P Right IJ Iron and first HD 06/21/20 Had [employer] as HR dropped to 30 at 4 am 06/25/20 Got PRBC 06/27 and 06/28 S/P HD and PRBC 07/07/20. Had PRBC 07/11/20 S/P HD yesterday DC pending insurance Auth Objective Last 24 Hour Vital Signs Date Time Temp Pulse Resp B/P (MAP) Pulse Ox O2 Delivery O2 Flow Rate FiO2 07/13/20 20:00 95.9 74 22 141/87 (105) 98 07/13/20 20:00 40 07/13/20 18:43 74 20 40 07/13/20 16:00 97.3 73 20 144/73 (96) 98 07/13/20 16:00 40 07/13/20 16:00 Mechanical Ventilator 07/13/20 15:23 74 07/13/20 15:10 73 22 40 07/13/20 12:21 73 07/13/20 12:00 40 07/13/20 12:00 Mechanical Ventilator 07/13/20 11:44 97.2 73 20 140/70 (93) 99 07/13/20 11:20 72 25 99 Mechanical Ventilator 40 75 24 40 07/13/20 08:00 Mechanical Ventilator 07/13/20 08:00 97.7 73 20 147/81 (103) 99 07/13/20 08:00 40 07/13/20 07:48 73 07/13/20 07:14 73 20 40 07/13/20 04:00 98.5 73 19 138/72 (94) 99 07/13/20 04:00 40 07/13/20 04:00 73 07/13/20 04:00 Mechanical Ventilator 07/13/20 03:48 73 25 40 07/13/20 00:00 72 07/13/20 00:00 40 07/13/20 00:00 98.3 76 19 132/76 (94) 99 07/13/20 00:00 Mechanical Ventilator 07/12/20 22:01 77 22 98 Mechanical Ventilator 40 72 22 40 Intake and Output 07/12/20 07/13/20 19:00 07:00 Intake Total 1200 ml 840 ml Output Total 30 ml Balance 1200 ml 810 ml Free Water 360 ml Tube Feeding 840 ml 840 ml Stool Total 30 ml Laboratory Tests Test 07/12/20 23:19 07/13/20 04:18 07/13/20 11:28 07/13/20 17:32 POC Whole Blood Glucose 120 MG/DL (74-106) H 179 MG/DL (74-106) H 149 MG/DL (74-106) H Hemoglobin A1c 5.6 % (4.3-6.0) Thyroid Stimulating Hormone (TSH) 12.114 uiU/mL (0.358-3.740) Random Vancomycin Level 21.5 ug/mL Objective HEAD AND NECK: Status post tracheostomy. Right IJ Iron in place LUNGS: Coarse rhonchi and basilar rales. CARDIOVASCULAR: Irregular S1 and S2 with no gallop. ABDOMEN: Soft. Status post G-tube. EXTREMITIES: No pitting edema. Lance Mcguire MD Jul 13, 2020 20:31
--- NOTE | 2020-07-13 21:29 | General Progress Note ---
Subjective ROS Limited/Unobtainable: Yes Allergies: Coded Allergies: No Known Allergies (Unverified , 06/13/20) Objective Last 24 Hour Vital Signs Date Time Temp Pulse Resp B/P (MAP) Pulse Ox O2 Delivery O2 Flow Rate FiO2 07/13/20 20:00 95.9 74 22 141/87 (105) 98 07/13/20 20:00 40 07/13/20 20:00 Mechanical Ventilator 07/13/20 18:43 74 20 40 07/13/20 16:00 97.3 73 20 144/73 (96) 98 07/13/20 16:00 40 07/13/20 16:00 Mechanical Ventilator 07/13/20 15:23 74 07/13/20 15:10 73 22 40 07/13/20 12:21 73 07/13/20 12:00 40 07/13/20 12:00 Mechanical Ventilator 07/13/20 11:44 97.2 73 20 140/70 (93) 99 07/13/20 11:20 72 25 99 Mechanical Ventilator 40 75 24 40 07/13/20 08:00 Mechanical Ventilator 07/13/20 08:00 97.7 73 20 147/81 (103) 99 07/13/20 08:00 40 07/13/20 07:48 73 07/13/20 07:14 73 20 40 07/13/20 04:00 98.5 73 19 138/72 (94) 99 07/13/20 04:00 40 07/13/20 04:00 73 07/13/20 04:00 Mechanical Ventilator 07/13/20 03:48 73 25 40 07/13/20 00:00 72 07/13/20 00:00 40 07/13/20 00:00 98.3 76 19 132/76 (94) 99 07/13/20 00:00 Mechanical Ventilator 07/12/20 22:01 77 22 98 Mechanical Ventilator 40 72 22 40 Intake and Output 07/12/20 07/13/20 19:00 07:00 Intake Total 1200 ml 840 ml Output Total 30 ml Balance 1200 ml 810 ml Free Water 360 ml Tube Feeding 840 ml 840 ml Stool Total 30 ml Laboratory Tests 07/12/20 23:19: POC Whole Blood Glucose 120H 07/13/20 04:18: Hemoglobin A1c 5.6, Thyroid Stimulating Hormone (TSH) 12.114H, Random Vancomycin Level 21.5 07/13/20 11:28: POC Whole Blood Glucose 179H 07/13/20 17:32: POC Whole Blood Glucose 149H Height (Feet): 5 Height (Inches): 8.00 Weight (Pounds): 143 Assessment/Plan Problem List: (1) Anemia ICD Codes: D64.9 - Anemia, unspecified SNOMED: 260373675 (2) KERRI (acute kidney injury) ICD Codes: N17.9 - Acute kidney failure, unspecified SNOMED: 3264375, 16953192 (3) Acute respiratory failure ICD Codes: J96.00 - Acute respiratory failure, unspecified whether with hypoxia or hypercapnia SNOMED: 00319549 Qualifiers: Qualified Codes: J96.02 - Acute respiratory failure with hypercapnia (4) Hyperkalemia ICD Codes: E87.5 - Hyperkalemia SNOMED: 86713453 (5) Abnormal laboratory test result ICD Codes: R89.9 - Unspecified abnormal finding in specimens from other organs, systems and tissues SNOMED: 395729087 (6) Anemia ICD Codes: D64.9 - Anemia, unspecified SNOMED: 455467923 Status: progressing Assessment/Plan: s/p trach and esrd on hd s/p pulmonary edema pvc s/p acute mi agitated prn restraint needs subacute center to accept Neida Apple MD Jul 13, 2020 21:29
[2020-07-14] VITALS: BP 145/90
--- NOTE | 2020-07-14 02:50 | NUR ---
NURSE NOTES: patient is in bed watching TV without acute distress. vital signs stable. trach to vent on prescribed settings saturating 100%, tolerating well. tube feeding running vital AF at 70ml/hr, no residual, tolerating well. cabrera catheter draining well to gravity with dark gerard output. rectal tube is in place draining well to gravity.
[2020-07-14] MEDS: Aluminum Hydroxide Gel Susp 15ml GT SCH ×4 (03:57→22:10)
[2020-07-14 04:00] VITALS: BP 130/76
--- NOTE | 2020-07-14 04:56 | NUR ---
NURSE NOTES: ventilator keeps beeping. Tidal volume setting at 500, shows 200-300. called RT and noted air leakage from tach. Called ER doctor, Rk and checked patient and ordered stat chest xray and ABG. O2 saturation 100%. Will continue to monitor.
--- NOTE | 2020-07-14 05:37 | Emergency Room Report ---
History of Present Illness General Chief Complaint: Abnormal Labs Source: Patient, Medical Record, PMD Present Illness HPI Consulted to assist with trach air leak at 0440 Patient examined at bedside. He is watching TV in no acute distress. Tracheostomy is clean, dry, and intact. Equal breath sounds bilaterally. Pulse oxygen saturation on the bedside O2 monitor reads 74%, however I doubt this is accurate as patient is not encephalopathic or in any distress. Will order stat ABG and chest x-ray. Pulse oxygen saturation after leaving the room was 100%. ABG reviewed. PC AC VA 18 tidal volume 500cc, FiO2 40% and PEEP of 5 shows paO2 of 74.9 and mild hypercapnia, likely chronic. Will instruct RT to increase FiO2 to 45% for now. CXR shows multifocal pneumonia. Trach is in place. No PTX. Will likely need routine trach exchange. I informed Dr Apple of the primary team. Allergies: Coded Allergies: No Known Allergies (Unverified , 06/13/20) COVID-19 Screening Contact w/high risk pt: No Experienced COVID-19 symptoms?: No COVID-19 Testing performed EVAPORATOR OPERATOR: No COVID-19 Screening: Negative COVID-19 Nursing Documentation-PMH Past Medical History: No History, Except For Hx Cardiac Problems: Yes - anemia embolism, heart failure Hx Hypertension: Yes Hx COPD: Yes - tracheostomy Hx Diabetes: Yes Hx Cancer: No Hx Gastrointestinal Problems: Yes - gastrostomy Hx Neurological Problems: Yes - left BKA Hx Dysphasia: Yes Hx Weakness: Yes Physical Exam Vital Signs Date Time Temp Pulse Resp B/P (MAP) Pulse Ox O2 Delivery O2 Flow Rate FiO2 07/10/20 07:20 71 20 40 07/10/20 08:00 96.8 126/70 (88) 99 07/10/20 08:00 Mechanical Ventilator Sp02 EP Interpretation: reviewed, normal Medical Decision Making Diagnostic Impression: Primary Impression: Abnormal laboratory test result Additional Impressions: Acute respiratory failure Qualified Codes: J96.02 - Acute respiratory failure with hypercapnia Anemia Hyperkalemia Last Vital Signs Date Time Temp Pulse Resp B/P (MAP) Pulse Ox O2 Delivery O2 Flow Rate FiO2 07/14/20 04:00 Mechanical Ventilator 07/14/20 04:00 77 07/14/20 04:00 40 07/14/20 04:00 96.8 29 130/76 (94) 98 Disposition: ADMITTED INPATIENT Condition: Stable Referrals: Neida Apple MD (PCP) Lo Beckman D.O. Jul 14, 2020 05:37
[2020-07-14] MEDS: NovoLOG Insulin Flexpen SUBQ SCH ×4 (06:00→23:13)
--- NOTE | 2020-07-14 06:06 | Diagnostic Imaging Report ---
EXAM: XR Chest, 1 View CLINICAL HISTORY: TACHYPNEA TECHNIQUE: Frontal view of the chest. COMPARISON: July 08, 2020. FINDINGS: Stable support lines and tubes. Stable cardiomediastinal silhouette. Little interval change in extensive bilateral infiltrates/ARDS. No large pleural effusions. IMPRESSION: Little interval change in extensive bilateral infiltrates/ARDS.
--- NOTE | 2020-07-14 06:17 | General Progress Note ---
Subjective ROS Limited/Unobtainable: Yes Allergies: Coded Allergies: No Known Allergies (Unverified , 06/13/20) Subjective events noted interval notes reviewed glucose values are stable TSH improved to 12 Item Value Date Time Bedside Blood Glucose 102 mg/dl 07/14/20 0600 Bedside Blood Glucose 144 mg/dl H 07/14/20 0000 Bedside Blood Glucose 149 mg/dl H 07/13/20 1735 Bedside Blood Glucose 179 mg/dl H 07/13/20 1140 Bedside Blood Glucose 166 mg/dl H 07/13/20 0600 Bedside Blood Glucose 120 mg/dl 07/13/20 0000 Objective Last 24 Hour Vital Signs Date Time Temp Pulse Resp B/P (MAP) Pulse Ox O2 Delivery O2 Flow Rate FiO2 07/14/20 04:00 Mechanical Ventilator 07/14/20 04:00 77 07/14/20 04:00 40 07/14/20 04:00 96.8 73 29 130/76 (94) 98 07/14/20 03:23 74 25 98 Mechanical Ventilator 40 07/14/20 02:36 74 25 40 07/14/20 00:00 Mechanical Ventilator 07/14/20 00:00 40 07/14/20 00:00 96.3 73 18 145/90 (108) 100 07/14/20 00:00 71 07/13/20 22:38 74 23 100 Mechanical Ventilator 40 75 23 40 07/13/20 20:00 95.9 74 22 141/87 (105) 98 07/13/20 20:00 40 07/13/20 20:00 Mechanical Ventilator 07/13/20 19:54 74 07/13/20 18:43 74 20 40 07/13/20 16:00 97.3 73 20 144/73 (96) 98 07/13/20 16:00 40 07/13/20 16:00 Mechanical Ventilator 07/13/20 15:23 74 07/13/20 15:10 73 22 40 07/13/20 12:21 73 07/13/20 12:00 40 07/13/20 12:00 Mechanical Ventilator 07/13/20 11:44 97.2 73 20 140/70 (93) 99 07/13/20 11:20 72 25 99 Mechanical Ventilator 40 75 24 40 07/13/20 08:00 Mechanical Ventilator 07/13/20 08:00 97.7 73 20 147/81 (103) 99 07/13/20 08:00 40 07/13/20 07:48 73 07/13/20 07:14 73 20 40 Intake and Output 07/13/20 07/14/20 19:00 07:00 Intake Total 955 ml 690 ml Output Total 200 ml Balance 755 ml 690 ml Free Water 60 ml 60 ml IV Total 55 ml Tube Feeding 840 ml 630 ml Output Urine Total 200 ml # Bowel Movements 100 Laboratory Tests 07/13/20 11:28: POC Whole Blood Glucose 179H 07/13/20 17:32: POC Whole Blood Glucose 149H 07/13/20 23:40: POC Whole Blood Glucose 144H 07/14/20 04:49: Arterial Blood pH 7.217*L, Arterial Blood Partial Pressure CO2 76.4*H, Arterial Blood Partial Pressure O2 74.9L, Arterial Blood HCO3 30.4H, Arterial Blood Oxygen Saturation 92.9L, Arterial Blood Base Excess 1.6, Joe Test Positive 07/14/20 05:43: POC Whole Blood Glucose 102 Height (Feet): 5 Height (Inches): 8.00 Weight (Pounds): 143 General Appearance: no apparent distress Cardiovascular: normal rate Respiratory/Chest: decreased breath sounds Abdomen: normal bowel sounds Objective Current Medications Medications (Trade) Dose Ordered Sig/Maryjane Route PRN Reason Start Time Stop Time Status Last Admin Dose Admin Acetaminophen (Tylenol) 650 mg Q4H PRN GT Mild Pain (Pain Scale 1-3) 06/18/20 23:00 07/18/20 22:59 07/12/20 13:22 Acetaminophen (Tylenol) 650 mg Q4HR PRN GT FEVER 06/14/20 09:45 07/14/20 09:44 07/10/20 20:33 Aluminum Hydroxide (Amphojel) 1,920 mg Q6H GT 06/17/20 10:00 07/17/20 09:59 07/14/20 03:57 Ascorbic Acid (Vitamin C) 500 mg DAILY GT 07/01/20 09:00 07/31/20 08:59 07/13/20 09:15 Cefepime HCl 500 mg/Dextrose 55 ml @ 110 mls/hr Q24H IV 07/08/20 16:00 07/15/20 15:59 07/13/20 16:09 Chlorhexidine Gluconate (Inés-Hex 2%) 1 applic DAILY@2000 TOPIC 06/21/20 20:00 09/19/20 19:59 07/13/20 20:08 Dextrose (Dextrose 50%) 25 ml Q30M PRN IV Hypoglycemia 06/28/20 18:30 09/26/20 18:29 Dextrose (Dextrose 50%) 50 ml Q30M PRN IV Hypoglycemia 06/28/20 18:30 09/26/20 18:29 Epoetin Bonilla (Epoetin Bonilla(ESRD on dialysis)) 10,000 unit TUE-TUE-TUE SUBQ 07/02/20 21:00 09/16/20 20:59 07/11/20 21:16 Gentamicin Sulfate (Gentamicin vial) 300 mg Q12HR@ INH 07/07/20 22:00 07/14/20 21:59 07/13/20 22:00 Haloperidol Lactate (Haldol) 5 mg Q6H PRN IM Agitation 06/21/20 23:15 08/05/20 23:14 06/25/20 18:17 Insulin Aspart (NovoLOG) EVERY 6 HOURS SUBQ 06/29/20 00:00 09/27/20 00:00 07/13/20 23:58 Lansoprazole (Prevacid) 30 mg Q12HR GT 06/30/20 21:00 07/30/20 20:59 07/13/20 20:08 Levothyroxine Sodium (Synthroid) 88 mcg DAILY@0630 GT 07/03/20 06:30 08/02/20 06:29 07/13/20 05:57 Vancomycin HCl (Vanco pharmacy to dose) 1 ea DAILY PRN MISC Per rx protocol 06/27/20 11:30 07/18/20 23:59 Vancomycin HCl 750 mg/Sodium Chloride 275 ml @ 183.333 mls/hr ONCE IVPB 07/14/20 08:00 07/14/20 10:00 Assessment/Plan Problem List: (1) History of left below knee amputation ICD Codes: Z89.512 - Acquired absence of left leg below knee SNOMED: 603888364, 060738558669155 (2) Surgical wound dehiscence ICD Codes: T81.31XA - Disruption of external operation (surgical) wound, not elsewhere classified, initial encounter SNOMED: 15961632 (3) Hyperkalemia ICD Codes: E87.5 - Hyperkalemia SNOMED: 33104349 (4) Acute respiratory failure ICD Codes: J96.00 - Acute respiratory failure, unspecified whether with hypoxia or hypercapnia SNOMED: 72268138 Qualifiers: Qualified Codes: J96.02 - Acute respiratory failure with hypercapnia (5) Hypothyroidism ICD Codes: E03.9 - Hypothyroidism, unspecified SNOMED: 17526710 (6) Hyperglycemia ICD Codes: R73.9 - Hyperglycemia, unspecified SNOMED: 92184718 Status: progressing Assessment/Plan: continue Levothyroxine 88 mcg daily - TSH improving repeat thyroid function in 1-2 weeks continue glucose monitoring Davy Ramos MD Jul 14, 2020 06:17
[2020-07-14 07:16] LABS: ALANINE AMINOTRANSFERASE 59 U/L (12-78); ALBUMIN 1.4 G/DL (3.4-5.0); ALBUMIN/GLOBULIN RATIO 0.2 (1.0-2.7); ALKALINE PHOSPHATASE 302 U/L (46-116); ASPARTATE AMINO TRANSFERASE 35 U/L (15-37); BILIRUBIN,TOTAL 0.4 MG/DL (0.2-1.0); BLOOD UREA NITROGEN 79 mg/dL (7-18); CALCIUM 8.2 MG/DL (8.5-10.1); CARBON DIOXIDE 31 MMOL/L (21-32); CHLORIDE 98 MMOL/L (98-107); CREATININE 3.8 MG/DL (0.55-1.30); PHOSPHORUS 4.2 MG/DL (2.5-4.9); SODIUM 132 MMOL/L (136-145)
--- NOTE | 2020-07-14 07:18 | NUR ---
NURSE HAND-OFF REPORT: Important Events on Shift:trach replaced by RT Patient Status: FULL CODE Diet: vital AF @70ml/hr Pending Orders: [] Pending Results/Labs:[] Pending MD notification:[] Latest Vital Signs: Temperature 96.8 , Pulse 73 , B/P 130 /76 , Respiratory Rate 29 , O2 SAT 98 , Mechanical Ventilator, O2 Flow Rate 15.0 . Vital Sign Comment: stable EKG Rhythm: Sinus Rhythm Rhythm change?: N MD Notified?: Y -Dr. Mcguire and Dr. Ambika BENDER Response: No New Orders Received Latest Santiago Fall Score: 75 Fall Risk: High Risk Safety Measures: Call light Within Reach, Bed Alarm Zone 2, Side Rails Side Rails x2, Bed position Low and Locked. Fall Precautions: Yellow [place]own Patient Fall Education Report given to MAX Cervantes.
[2020-07-14 07:28] LABS: BASOPHILS % (AUTO) 1.1 % (0.0-2.0); EOSINOPHILS % (AUTO) 10.3 % (0.0-3.0); HEMATOCRIT 24.8 % (42.0-52.0); LYMPHOCYTES % (AUTO) 13.6 % (20.0-45.0); MEAN CORPUSCULAR VOLUME 90 FL (80-99); PLATELET COUNT 193 K/UL (150-450); RED BLOOD COUNT 2.76 M/UL (4.70-6.10); RED CELL DISTRIBUTION WIDTH 15.6 % (11.6-14.8); WHITE BLOOD COUNT 7.6 K/UL (4.8-10.8)
--- NOTE | 2020-07-14 07:30 | NUR ---
NURSE NOTES: Received report from MAX Kate. The patient is resting on the bed but labored breathing and air leak sound on trach noted. The patient is AOx3-4 and able to make needs known via facial expression and body movement. Able to nod head upon asking question. SR w/ HR of 60s on the satellite project site monitor. The patient is trach'ed and on ventilator on following setting and oxygen saturation is 100% but airleak sound w/ relatively low tidal volume noted: Shiley 8 AC 18 TV 500 FiO2 45% and PEEP 5. TV ordered to be 500mL but actual volume that the patient is getting during initial check was 180-250mL. Immediately called RT for troubleshoot. Immediately called Dr. Apple, Dr. Garcia, and Dr. Mares for further assessment. The patient's GT intact and patent and running Vital AF 1.2 @ 70mL/hr per order. The patient's Sparrow and Rectal tube those are intact and patent and draining by gravity. The patient's skin issue noted and dressing intact. The patient has R IJ permacath for HD access. The patient has R hand 22G PIV that is intact and patent. The patient's bed in the lowest position, call light in reach, and fall and aspiration precaution reinforced. IV site intact and patent. Will follow up the lab and order. Will closely monitor the patient. Will continue plan of care.
--- NOTE | 2020-07-14 07:45 | NUR ---
NURSE NOTES: Dr. Tan was notified regarding Hgb trend from 8.3 to 8.0. No transfusion order at this time. Will closely monitor the patient. Will continue plan of care.
--- NOTE | 2020-07-14 07:45 | Consultation ---
DATE OF CONSULTATION: 07/12/2020 ENDOCRINOLOGY CONSULTATION CONSULTING PHYSICIAN: Kilo Davidson M.D. REFERRING PHYSICIAN: Neida Apple M.D. REASON FOR CONSULTATION: I was asked to see this 54-year-old gentleman type 2 diabetes mellitus, under control, , history of hypothyroidism, levothyroxine . The patient is on sliding scale of NovoLog q.i.d. before meals and at bedtime. FAMILY HISTORY: Unremarkable. PERSONAL HISTORY: Unremarkable. REVIEW OF SYSTEMS: Unremarkable. PHYSICAL EXAMINATION: GENERAL: The patient is in moderate distress . VITAL SIGNS: Blood pressure 138/72, pulse 72, respiratory rate 20, and temperature 98.3. HEAD AND NECK: Unremarkable. No jugular venous distention. LUNGS: Clear. HEART: Heart sounds regular. ABDOMEN: Soft. Bowel sounds present. EXTREMITIES: Left below-knee amputation. NEUROLOGIC: Cranial nerves II through XII are grossly intact with toes downgoing to plantar stimulation. LABORATORY DATA: . ASSESSMENT: 1. Diabetes mellitus, type 2, under good control. 2. Hypothyroidism. 3. . PLAN: NovoLog q.i.d. before meals and at bedtime moderate dose. Monitor hemoglobin A1c . Kilo Davidson M.D. DR: VIVI JOB#: [id number] CC:
[2020-07-14 08:00] VITALS: BP 121/70
[2020-07-14] MEDS ORDERED: Vancomycin 750mg/NS 275ml IVPB SCH ×2 (08:00)
--- NOTE | 2020-07-14 08:00 | NUR ---
NURSE NOTES: Left message to Dr. Garcia and Dr. Mares regarding abnormal ABG and CXR result. No new order yet. Still airleak sound heard but TV improved w/ 250-300mL. Will closely monitor the patient. Will continue plan of care.
--- NOTE | 2020-07-14 08:30 | NUR ---
NURSE NOTES: Dr. Mares at the bedside assessed the patient. Prepared Shiley 8 and 7 in case of replacement. Per Dr. Mares it is not the problem w/ trach itself but because the patient is fighting on the vent. Dr. Mares changed it from AC to spontaneous mode. The patient seems breath more comfortably but TV still remains @ 300s. Will closely monitor the patient. Will continue plan of care.
[2020-07-14] MEDS ORDERED: NS 275ml ONE (08:33)
--- NOTE | 2020-07-14 09:00 | NUR ---
NURSE NOTES: Dr. Garcia's PA, Mr. Ortiz was notified regarding the patient's condition. Trach leakage sound w/ low TV and abnormal abg result. No new order at this time. Per PA, Dr. Garcia will come shortly. Will closely monitor the patient. Will continue plan of care.
--- NOTE | 2020-07-14 09:34 | Cardiac Electrophysiology PN ---
Assessment/Plan Assessment/Plan 1. Vent-dependent respirator failure. S/P tracheostomy. On 50% Fio2 Chest x-ray extensive bilateral pneumonia or ARDS. Off isolation EF 50%. Ruled out for UT On iv Abx Now had Trach leak per RT. Dr Garcia and Vishnu on the case. 2. Sinus Tachycardia, likely due to respiratory failure and sepsis 3. Right femoral vein DVT. S/P IVC filter 06/18 4. Dysphagia, status post PEG placement. 5. Renal failure. S/P Right IJ Iron and on HD by Dr. Honeycutt. 6. Severe anemia, S/P multiple PRBCs for hematuria 7. High LFTs, s/p CT abdomen and pelvis and HIDA FU Dr. Stringer 8. Transient bradycardia, resolved DW RN Subjective Subjective On the Vent off isolation. On 45% Fio2 and PEEP 5. S/P IVC filter S/P Right IJ Iron and first HD 06/21/20 Had RE[employer] FEEDER as HR dropped to 30 at 4 am 06/25/20 Got PRBC 06/27, 06/28 and 07/07 and 07/11 Apparently has a trach leak as getting only 200cc instead of 750 cc and PCO2 is 75 Objective Last 24 Hour Vital Signs Date Time Temp Pulse Resp B/P (MAP) Pulse Ox O2 Delivery O2 Flow Rate FiO2 07/14/20 04:00 Mechanical Ventilator 07/14/20 04:00 77 07/14/20 04:00 40 07/14/20 04:00 96.8 73 29 130/76 (94) 98 07/14/20 03:23 74 25 98 Mechanical Ventilator 40 07/14/20 02:36 74 25 40 07/14/20 00:00 Mechanical Ventilator 07/14/20 00:00 40 07/14/20 00:00 96.3 73 18 145/90 (108) 100 07/14/20 00:00 71 07/13/20 22:38 74 23 100 Mechanical Ventilator 40 75 23 40 07/13/20 20:00 95.9 74 22 141/87 (105) 98 07/13/20 20:00 40 07/13/20 20:00 Mechanical Ventilator 07/13/20 19:54 74 07/13/20 18:43 74 20 40 07/13/20 16:00 97.3 73 20 144/73 (96) 98 07/13/20 16:00 40 07/13/20 16:00 Mechanical Ventilator 07/13/20 15:23 74 07/13/20 15:10 73 22 40 07/13/20 12:21 73 07/13/20 12:00 40 07/13/20 12:00 Mechanical Ventilator 07/13/20 11:44 97.2 73 20 140/70 (93) 99 07/13/20 11:20 72 25 99 Mechanical Ventilator 40 75 24 40 Intake and Output 07/13/20 07/14/20 19:00 07:00 Intake Total 955 ml 720 ml Output Total 200 ml 300 ml Balance 755 ml 420 ml Free Water 60 ml 90 ml IV Total 55 ml Tube Feeding 840 ml 630 ml Output Urine Total 200 ml 200 ml Stool Total 100 ml # Bowel Movements 100 Laboratory Tests Test 07/13/20 11:28 07/13/20 17:32 07/13/20 23:40 07/14/20 04:49 POC Whole Blood Glucose 179 MG/DL (74-106) H 149 MG/DL (74-106) H 144 MG/DL (74-106) H Arterial Blood pH 7.217 (7.350-7.450) Arterial Blood Partial Pressure CO2 76.4 mmHg (35.0-45.0) *H Arterial Blood Partial Pressure O2 74.9 mmHg (75.0-100.0) L Arterial Blood HCO3 30.4 mmol/L (22.0-26.0) H Arterial Blood Oxygen Saturation 92.9 % (95-100) L Arterial Blood Base Excess 1.6 (-2-2) Joe Test Positive Test 07/14/20 05:43 07/14/20 06:04 POC Whole Blood Glucose 102 MG/DL (74-106) White Blood Count 7.6 K/UL (4.8-10.8) Red Blood Count 2.76 M/UL (4.70-6.10) L Hemoglobin 8.0 G/DL (14.2-18.0) L Hematocrit 24.8 % (42.0-52.0) L Mean Corpuscular Volume 90 FL (80-99) Mean Corpuscular Hemoglobin 28.9 PG (27.0-31.0) Mean Corpuscular Hemoglobin Concent 32.2 G/DL (32.0-36.0) Red Cell Distribution Width 15.6 % (11.6-14.8) H Platelet Count 193 K/UL (150-450) Mean Platelet Volume 7.9 FL (6.5-10.1) Neutrophils (%) (Auto) 66.0 % (45.0-75.0) Lymphocytes (%) (Auto) 13.6 % (20.0-45.0) L Monocytes (%) (Auto) 9.0 % (1.0-10.0) Eosinophils (%) (Auto) 10.3 % (0.0-3.0) H Basophils (%) (Auto) 1.1 % (0.0-2.0) Sodium Level 132 MMOL/L (136-145) L Potassium Level 5.0 MMOL/L (3.5-5.1) Chloride Level 98 MMOL/L (98-107) Carbon Dioxide Level 31 MMOL/L (21-32) Blood Urea Nitrogen 79 mg/dL (7-18) H Creatinine 3.8 MG/DL (0.55-1.30) H Estimat Glomerular Filtration Rate 20.2 mL/min (>60) Glucose Level 101 MG/DL (74-106) Calcium Level 8.2 MG/DL (8.5-10.1) L Phosphorus Level 4.2 MG/DL (2.5-4.9) Magnesium Level 2.6 MG/DL (1.8-2.4) H Total Bilirubin 0.4 MG/DL (0.2-1.0) Aspartate Amino Transf (AST/SGOT) 35 U/L (15-37) Alanine Aminotransferase (ALT/SGPT) 59 U/L (12-78) Alkaline Phosphatase 302 U/L (46-116) H Total Protein 7.5 G/DL (6.4-8.2) Albumin 1.4 G/DL (3.4-5.0) L Globulin 6.1 g/dL Albumin/Globulin Ratio 0.2 (1.0-2.7) L Objective HEAD AND NECK: Status post tracheostomy. Right IJ Iron in place LUNGS: Coarse rhonchi and basilar rales. CARDIOVASCULAR: Irregular S1 and S2 with no gallop. ABDOMEN: Soft. Status post G-tube. EXTREMITIES: No pitting edema. Lance Mcguire MD Jul 14, 2020 09:34
[2020-07-14] MEDS: Ascorbic Acid 500mg tab GT SCH (09:39)
--- NOTE | 2020-07-14 10:00 | NUR ---
NURSE NOTES: Medications administered per order. The patient tolerated well. Will closely monitor the patient. Will continue plan of care.
--- NOTE | 2020-07-14 10:03 | Diagnostic Imaging Report ---
Procedure: XRAY Chest 1v Reason for study: Shortness of breath. Comparison films: 07/14/2020. FINDINGS: Tracheostomy and right central venous catheter remain in place in good position. Extensive bilateral alveolar densities noted unchanged given the difference in technique. Cardiac and mediastinal silhouette are within normal limits. CP angles are sharp. The bony thorax appear unremarkable. IMPRESSION: NO SIGNIFICANT CHANGE COMPARED TO PREVIOUS EXAM.
--- NOTE | 2020-07-14 10:30 | NUR ---
NURSE NOTES: Dr. Garcia at the bedside assessed the patient. Notified air leakage sound on trach site w/ low TV (TV of 300s) and abnormal abg result. Dr. Garcia ordered following vent setting: AC 16 TV 500 FiO2 45% and PEEP 5. No new order but just monitoring of the patient for trach leakage. Will closely monitor the patient. Will continue plan of care.
--- NOTE | 2020-07-14 10:40 | Nephrology Progress Note ---
Assessment/Plan Problem List: (1) KERRI (acute kidney injury) (2) Acute respiratory failure (3) Chronic respiratory failure (4) Anemia (5) Hyperkalemia Assessment Acute on chronic renal failure Anemia Respiratory failure acute on chronic Respiratory acidosis and hypoxia Hyperkalemia Plan July 14: Dialyzed July 12. Next dialysis July 15. . Continue per current management. July 13: Dialyzed yesterday. Due for dialysis tomorrow. No labs drawn today. Continue same management. July 12: Patient was dialyzed this morning. Labs reviewed. Discussed with RN. Patient remained stable for discharge from renal standpoint of view and to be continued on dialysis upon transfer. July 11: Last dialyzed July 09. Appears to may need dialysis tomorrow July 12. If discharged to subacute patient will have continued dialysis there. Discussed with special education case manager and PMD. July 10: Last dialyzed July 09. Labs reviewed. Hyponatremia noted. Continue to monitor electrolytes and renal parameters. Hold off dialysis at this time and monitor renal parameters. Recheck TSH level. Continue per consultants. July 09: Due for dialysis today. Labs reviewed. Medication list reviewed. Continue same treatment plan. July 08: Patient was dialyzed yesterday. Today's labs reviewed. Electrolytes and renal parameters stable. Next dialysis tomorrow. Continue per consultants. July 07: Labs reviewed. Dialysis today. Abnormal electrolytes will be. Discussed with RN. Resolved after dialysis. Continue per consultants July 06: Labs reviewed. Dialyzed July 04. Due for dialysis July 07. Continue per consultants. July 05: Labs reviewed. Dialyzed yesterday. Electrolytes and renal parameters stable. Continue per consultants. Continue dialysis as needed. July 04: Labs reviewed. Due for dialysis today. Continue to monitor electrolytes and hemoglobin hematocrit. Continue per consultants. July 03: Lab reviewed. Will defer dialysis for July 04. Some blood oozing from the catheter site. General surgery to be informed. Electrolytes stable. Continue as is. July 02: Labs reviewed. Due for dialysis tomorrow. Hemoglobin higher. Stable electrolytes. Continue per consultants. July 01: Labs reviewed. Dialyzed yesterday. Patient has a permacath. Continue per consultants. Worsening anemia noted, deferred to tenant coordinator. June 30: Labs reviewed. Due for dialysis today. Patient appears to be needing hemodialysis for sometimes incoming future. Will arrange for placement of a tunneled catheter. Continue per consultants. Anemia management per tenant coordinator. June 29: Labs reviewed. Hemoglobin is higher. Next hemodialysis tomorrow June 30. Continue per consultants. June 28: Labs reviewed. Last dialyzed June 26. Hemoglobin remains low. Defer transfusion and work-up to tenant coordinator. Continue to follow-up renal parameters. June 27: Labs reviewed. Dialyzed yesterday. Hemoglobin low. Due for transfusion. Continue to monitor renal parameters and hemoglobin and hematocrit. June 26: Labs reviewed. Due for dialysis today. Continue per consultants. Continue to monitor liver enzymes. June 25: Labs reviewed. Will dialyze tomorrow. Continue per consultants. Check liver function enzymes. June 24: Dialyzed yesterday. Labs reviewed. Medication list reviewed. Liver enzymes remains elevated. Continue to monitor electrolytes renal parameters and LFTs. Hemodialysis in a.m. if needed. June 23: Patient will be dialyzed today again. Labs reviewed. Serum creatinine higher. Elevated liver enzymes persist. Patient full code. Continue per consultants. June 22: Patient dialyzed yesterday. Labs reviewed. Liver function tests and enzymes are elevated. Continue to monitor renal parameters and LFTs. Continue per consultants. Patient full code. June 21: Patient due for dialysis today. Labs and medication list reviewed. Discussed with RN. Continue to monitor renal parameters. June 20: Patient had an episode of bradycardia last night. Serum creatinine rising. Patient continues to have respiratory acidosis. Discussed with MAX Bond. Will order non tunneled dialysis catheter placement for initiation of dialysis treatment due to acute renal failure. Patient remains full code. I favor comfort care if bioethics consultation is sought and physicians on the team agreeable. June 19: No CHEM panel today. Low hemoglobin as of yesterday's lab results. Anemia management per Dr. Cueva. Continue to monitor renal parameters. June 18: Labs are reviewed. Hemoglobin lower. Creatinine higher. ABG not done yet. Patient full code. Continue per consultants. June 17: Labs reviewed. Hemoglobin low. Creatinine up to 3. Phosphorus levels elevated. Will start Amphojel via GT tube as a phosphorus binder. Monitor renal parameters. Check ABG. Continue per consultants. June 16: Labs reviewed. Serum creatinine mariana to 2.6. Abnormal electrolytes now normalized. Continue to monitor renal parameters and avoid nephrotoxic's. Continue to adjust pulmonary status as possible. June 15: ABG pH of 7.1. 2D echo suggestive of ejection fraction of 50%. Labs reviewed. Serum creatinine mariana. Will hold IV Lasix. Will give Kayexalate for high potassium and 1 amp of sodium bicarb. Albumin IV bolus given. Continue per consultants. Continue to monitor renal parameters. Kidney ultrasound ordered. June 14: As follow Pulmonary evaluation Sparrow catheter Hold IV fluid IV fluid, until 2D echo results available Kayexalate for high potassium IV Protonix 2D echocardiogram Anemia work-up More labs ordered Subjective ROS Limited/Unobtainable: Yes Objective Objective Last 24 Hour Vital Signs Date Time Temp Pulse Resp B/P (MAP) Pulse Ox O2 Delivery O2 Flow Rate FiO2 07/14/20 09:25 69 22 40 07/14/20 07:10 67 23 40 07/14/20 04:00 Mechanical Ventilator 07/14/20 04:00 77 07/14/20 04:00 40 07/14/20 04:00 96.8 73 29 130/76 (94) 98 07/14/20 03:23 74 25 98 Mechanical Ventilator 40 07/14/20 02:36 74 25 40 07/14/20 00:00 Mechanical Ventilator 07/14/20 00:00 40 07/14/20 00:00 96.3 73 18 145/90 (108) 100 07/14/20 00:00 71 07/13/20 22:38 74 23 100 Mechanical Ventilator 40 75 23 40 07/13/20 20:00 95.9 74 22 141/87 (105) 98 07/13/20 20:00 40 07/13/20 20:00 Mechanical Ventilator 07/13/20 19:54 74 07/13/20 18:43 74 20 40 07/13/20 16:00 97.3 73 20 144/73 (96) 98 07/13/20 16:00 40 07/13/20 16:00 Mechanical Ventilator 07/13/20 15:23 74 07/13/20 15:10 73 22 40 07/13/20 12:21 73 07/13/20 12:00 40 07/13/20 12:00 Mechanical Ventilator 07/13/20 11:44 97.2 73 20 140/70 (93) 99 07/13/20 11:20 72 25 99 Mechanical Ventilator 40 75 24 40 Intake and Output 07/13/20 07/14/20 19:00 07:00 Intake Total 955 ml 720 ml Output Total 200 ml 300 ml Balance 755 ml 420 ml Free Water 60 ml 90 ml IV Total 55 ml Tube Feeding 840 ml 630 ml Output Urine Total 200 ml 200 ml Stool Total 100 ml # Bowel Movements 100 Current Medications Medications (Trade) Dose Ordered Sig/Maryjane Route PRN Reason Start Time Stop Time Status Last Admin Dose Admin Acetaminophen (Tylenol) 650 mg Q4H PRN GT Mild Pain (Pain Scale 1-3) 06/18/20 23:00 07/18/20 22:59 07/12/20 13:22 Aluminum Hydroxide (Amphojel) 1,920 mg Q6H GT 06/17/20 10:00 07/17/20 09:59 07/14/20 09:39 Ascorbic Acid (Vitamin C) 500 mg DAILY GT 07/01/20 09:00 07/31/20 08:59 07/14/20 09:39 Cefepime HCl 500 mg/Dextrose 55 ml @ 110 mls/hr Q24H IV 07/08/20 16:00 07/14/20 23:59 07/13/20 16:09 Chlorhexidine Gluconate (Inés-Hex 2%) 1 applic DAILY@1999 TOPIC 06/21/20 20:00 09/19/20 19:59 07/13/20 20:08 Dextrose (Dextrose 50%) 25 ml Q30M PRN IV Hypoglycemia 06/28/20 18:30 09/26/20 18:29 Dextrose (Dextrose 50%) 50 ml Q30M PRN IV Hypoglycemia 06/28/20 18:30 09/26/20 18:29 Epoetin Bonilla (Epoetin Bonilla(ESRD on dialysis)) 10,000 unit TUE-TUE-TUE SUBQ 07/02/20 21:00 09/16/20 20:59 07/11/20 21:16 Gentamicin Sulfate (Gentamicin vial) 300 mg Q12HR@10, INH 07/07/20 22:00 07/14/20 21:59 07/13/20 22:00 Haloperidol Lactate (Haldol) 5 mg Q6H PRN IM Agitation 06/21/20 23:15 08/05/20 23:14 06/25/20 18:17 Insulin Aspart (NovoLOG) EVERY 6 HOURS SUBQ 06/29/20 00:00 09/27/20 00:00 07/13/20 23:58 Lansoprazole (Prevacid) 30 mg Q12HR GT 06/30/20 21:00 07/30/20 20:59 07/14/20 09:38 Levothyroxine Sodium (Synthroid) 88 mcg DAILY@0630 GT 07/03/20 06:30 08/02/20 06:29 07/14/20 06:23 Vancomycin HCl (Vanco pharmacy to dose) 1 ea DAILY PRN MISC Per rx protocol 06/27/20 11:30 07/18/20 23:59 Laboratory Tests 07/13/20 11:28: POC Whole Blood Glucose 179H 07/13/20 17:32: POC Whole Blood Glucose 149H 07/13/20 23:40: POC Whole Blood Glucose 144H 07/14/20 04:49: Arterial Blood pH 7.217*L, Arterial Blood Partial Pressure CO2 76.4*H, Arterial Blood Partial Pressure O2 74.9L, Arterial Blood HCO3 30.4H, Arterial Blood Oxygen Saturation 92.9L, Arterial Blood Base Excess 1.6, Joe Test Positive 07/14/20 05:43: POC Whole Blood Glucose 102 07/14/20 06:04: White Blood Count 7.6, Red Blood Count 2.76L, Hemoglobin 8.0L, Hematocrit 24.8L, Mean Corpuscular Volume 90, Mean Corpuscular Hemoglobin 28.9, Mean Corpuscular Hemoglobin Concent 32.2, Red Cell Distribution Width 15.6H, Platelet Count 193, Mean Platelet Volume 7.9, Neutrophils (%) (Auto) 66.0, Lymphocytes (%) (Auto) 13.6L, Monocytes (%) (Auto) 9.0, Eosinophils (%) (Auto) 10.3H, Basophils (%) (Auto) 1.1, Sodium Level 132L, Potassium Level 5.0, Chloride Level 98, Carbon Dioxide Level 31, Blood Urea Nitrogen 79H, Creatinine 3.8H, Estimat Glomerular Filtration Rate 20.2, Glucose Level 101, Calcium Level 8.2L, Phosphorus Level 4.2, Magnesium Level 2.6H, Total Bilirubin 0.4, Aspartate Amino Transf (AST/SGOT) 35, Alanine Aminotransferase (ALT/SGPT) 59, Alkaline Phosphatase 302H , Total Protein 7.5, Albumin 1.4L, Globulin 6.1, Albumin/Globulin Ratio 0.2L 07/14/20 09:25: Arterial Blood pH 7.215*L, Arterial Blood Partial Pressure CO2 74.4*H, Arterial Blood Partial Pressure O2 98.0, Arterial Blood HCO3 29.4H, Arterial Blood Oxygen Saturation 96.6, Arterial Blood Base Excess 0.7, Joe Test Positive Height (Feet): 5 Height (Inches): 8.00 Weight (Pounds): 143 General Appearance: no apparent distress EENT: other - Trach to vent Cardiovascular: normal rate Respiratory/Chest: decreased breath sounds Abdomen: distended Leonidas Honeycutt MD Jul 14, 2020 10:40
--- NOTE | 2020-07-14 10:40 | NUR ---
NURSE NOTES: Dr. Honeycutt at the bedside assessed the patient. Notified abnormal lab including K, BUN, Cr. Per Dr. Honeycutt, HD to be done on 07/15/2020. Called [facility] and spoke with Ms. York and HD nurseLeticia Alexander regarding Dr. Honeycutt's order of HD to be done on 07/15/2020. Will closely monitor the patient. Will continue plan of care.
--- NOTE | 2020-07-14 10:48 | Pulmonology Progress Note ---
Subjective ROS Limited/Unobtainable: Yes Interval Events: Trach issues noted; discussed with team Constitutional: Denies: fever HEENT: Repors: no symptoms Respiratory: Reports: no symptoms Cardiovascular: Reports: no symptoms Gastrointestinal/Abdominal: Reports: diarrhea Genitourinary: Reports: no symptoms Psychiatric: Reports: other - off of restraint Allergies: Coded Allergies: No Known Allergies (Unverified , 06/13/20) All Systems: reviewed and negative except above Objective Last 24 Hour Vital Signs Date Time Temp Pulse Resp B/P (MAP) Pulse Ox O2 Delivery O2 Flow Rate FiO2 07/14/20 10:02 65 25 40 07/14/20 09:25 69 22 40 07/14/20 07:10 67 23 40 07/14/20 04:00 Mechanical Ventilator 07/14/20 04:00 77 07/14/20 04:00 40 07/14/20 04:00 96.8 73 29 130/76 (94) 98 07/14/20 03:23 74 25 98 Mechanical Ventilator 40 07/14/20 02:36 74 25 40 07/14/20 00:00 Mechanical Ventilator 07/14/20 00:00 40 07/14/20 00:00 96.3 73 18 145/90 (108) 100 07/14/20 00:00 71 07/13/20 22:38 74 23 100 Mechanical Ventilator 40 75 23 40 07/13/20 20:00 95.9 74 22 141/87 (105) 98 07/13/20 20:00 40 07/13/20 20:00 Mechanical Ventilator 07/13/20 19:54 74 07/13/20 18:43 74 20 40 07/13/20 16:00 97.3 73 20 144/73 (96) 98 07/13/20 16:00 40 07/13/20 16:00 Mechanical Ventilator 07/13/20 15:23 74 07/13/20 15:10 73 22 40 07/13/20 12:21 73 07/13/20 12:00 40 07/13/20 12:00 Mechanical Ventilator 07/13/20 11:44 97.2 73 20 140/70 (93) 99 07/13/20 11:20 72 25 99 Mechanical Ventilator 40 75 24 40 Intake and Output 07/13/20 07/14/20 19:00 07:00 Intake Total 955 ml 720 ml Output Total 200 ml 300 ml Balance 755 ml 420 ml Free Water 60 ml 90 ml IV Total 55 ml Tube Feeding 840 ml 630 ml Output Urine Total 200 ml 200 ml Stool Total 100 ml # Bowel Movements 100 General Appearance: WD/WN, no acute distress HEENT: status post trach Respiratory: chest wall non-tender, decreased breath sounds Cardiovascular: normal rate Abdomen: normal bowel sounds Genitourinary: other - [place] Extremities: no cyanosis, other - left lower leg amputee Laboratory Tests 07/13/20 11:28: POC Whole Blood Glucose 179H 07/13/20 17:32: POC Whole Blood Glucose 149H 07/13/20 23:40: POC Whole Blood Glucose 144H 07/14/20 04:49: Arterial Blood pH 7.217*L, Arterial Blood Partial Pressure CO2 76.4*H, Arterial Blood Partial Pressure O2 74.9L, Arterial Blood HCO3 30.4H, Arterial Blood Oxygen Saturation 92.9L, Arterial Blood Base Excess 1.6, Joe Test Positive 07/14/20 05:43: POC Whole Blood Glucose 102 07/14/20 06:04: White Blood Count 7.6, Red Blood Count 2.76L, Hemoglobin 8.0L, Hematocrit 24.8L, Mean Corpuscular Volume 90, Mean Corpuscular Hemoglobin 28.9, Mean Corpuscular Hemoglobin Concent 32.2, Red Cell Distribution Width 15.6H, Platelet Count 193, Mean Platelet Volume 7.9, Neutrophils (%) (Auto) 66.0, Lymphocytes (%) (Auto) 13.6L, Monocytes (%) (Auto) 9.0, Eosinophils (%) (Auto) 10.3H, Basophils (%) (Auto) 1.1, Sodium Level 132L, Potassium Level 5.0, Chloride Level 98, Carbon Dioxide Level 31, Blood Urea Nitrogen 79H, Creatinine 3.8H, Estimat Glomerular Filtration Rate 20.2, Glucose Level 101, Calcium Level 8.2L, Phosphorus Level 4.2, Magnesium Level 2.6H, Total Bilirubin 0.4, Aspartate Amino Transf (AST/SGOT) 35, Alanine Aminotransferase (ALT/SGPT) 59, Alkaline Phosphatase 302H , Total Protein 7.5, Albumin 1.4L, Globulin 6.1, Albumin/Globulin Ratio 0.2L 07/14/20 09:25: Arterial Blood pH 7.215*L, Arterial Blood Partial Pressure CO2 74.4*H, Arterial Blood Partial Pressure O2 98.0, Arterial Blood HCO3 29.4H, Arterial Blood Oxygen Saturation 96.6, Arterial Blood Base Excess 0.7, Joe Test Positive Current Medications Medications (Trade) Dose Ordered Sig/Maryjane Route PRN Reason Start Time Stop Time Status Last Admin Dose Admin Acetaminophen (Tylenol) 650 mg Q4H PRN GT Mild Pain (Pain Scale 1-3) 06/18/20 23:00 07/18/20 22:59 07/12/20 13:22 Aluminum Hydroxide (Amphojel) 1,920 mg Q6H GT 06/17/20 10:00 07/17/20 09:59 07/14/20 09:39 Ascorbic Acid (Vitamin C) 500 mg DAILY GT 07/01/20 09:00 07/31/20 08:59 07/14/20 09:39 Cefepime HCl 500 mg/Dextrose 55 ml @ 110 mls/hr Q24H IV 07/08/20 16:00 07/14/20 23:59 07/13/20 16:09 Chlorhexidine Gluconate (Inés-Hex 2%) 1 applic DAILY@1999 TOPIC 06/21/20 20:00 09/19/20 19:59 07/13/20 20:08 Dextrose (Dextrose 50%) 25 ml Q30M PRN IV Hypoglycemia 06/28/20 18:30 09/26/20 18:29 Dextrose (Dextrose 50%) 50 ml Q30M PRN IV Hypoglycemia 06/28/20 18:30 09/26/20 18:29 Epoetin Bonilla (Epoetin Bonilla(ESRD on dialysis)) 10,000 unit SUBQ 07/02/20 21:00 09/16/20 20:59 07/11/20 21:16 Gentamicin Sulfate (Gentamicin vial) 300 mg Q12HR@10, INH 07/07/20 22:00 07/14/20 21:59 07/13/20 22:00 Haloperidol Lactate (Haldol) 5 mg Q6H PRN IM Agitation 06/21/20 23:15 08/05/20 23:14 06/25/20 18:17 Insulin Aspart (NovoLOG) EVERY 6 HOURS SUBQ 06/29/20 00:00 09/27/20 00:00 12/6/20 23:58 Lansoprazole (Prevacid) 30 mg Q12HR GT 06/30/20 21:00 07/30/20 20:59 07/14/20 09:38 Levothyroxine Sodium (Synthroid) 88 mcg DAILY@0630 GT 07/03/20 06:30 08/02/20 06:29 07/14/20 06:23 Vancomycin HCl (Vanco pharmacy to dose) 1 ea DAILY PRN MISC Per rx protocol 06/27/20 11:30 07/18/20 23:59 Assessment/Plan Problems: (1) Acute respiratory failure Assessment/Plan IMPRESSION: 1. Chronic respiratory failure. 2. Hypoxemia. - AC 14, TV 500, FiO2 40, PEEP 5; trach not holding volumes; seen by surgery and adjusted; unable to maintain volumes on spont or IMV; switched back to AC 3. Respiratory acidosis. 4. Anemia. 5. Leukocytosis. 6. DVT 7. S/p code blue 06/19/20 DISCUSSION: The patient's x-ray is markedly abnormal with bilateral infiltrates. suspect he has pulmonary fibrosis. Latest CXR is unchanged to slightly improved COVID 19 pcr and antigen both negative No anticoagulation for DVT due to anemia S/p IVC filter placement Continue assist-control mechanical ventilation; currently FiO2 40%; SaO2 100%, broad-spectrum antibiotics. Transfusion as needed. PEEP 5 S/p HD- pt reports feeling better due for dialysis tomorrow Will continue to decrease FiO2 as tolerated S/p permacath dc planning- awaiting response from insurance Sylvester Garcia MD Jul 14, 2020 10:48
[2020-07-14] MEDS: Gentamicin for inhalation INH SCH (11:17)
--- NOTE | 2020-07-14 11:20 | Infectious Diseases Prog Note ---
Assessment/Plan Assessment/Plan IMPRESSION: Pneumonia with Pseudomonas & Providencia Hypothermia COVID19 X 2: negative Ventilator-dependent respiratory failure, Diabetes mellitus type 2, Hypertension, History of left BKA, Hypertension, anemia, Major depression, Pressure ulcer, Elevated transaminase, Hyperkalemia. Anemia R leg DVT s/p IVC filter Sacral osteomyelitis Severe anemia Acute renal failure ESRD Hypercapnic respiratory failure Hematuria Thrombocytopenia Diverticulosis Diarrhea, C. difficile negative RECOMMENDATION: Continue Vancomycin until 07/18 Discontinue Cefepime & Gentamicin inhaler Subjective ROS Limited/Unobtainable: Yes Constitutional: Denies: fever Allergies: Coded Allergies: No Known Allergies (Unverified , 06/13/20) Objective Last 24 Hour Vital Signs Date Time Temp Pulse Resp B/P (MAP) Pulse Ox O2 Delivery O2 Flow Rate FiO2 07/14/20 10:02 65 25 45 07/14/20 09:25 69 22 45 07/14/20 08:45 68 25 45 07/14/20 07:10 67 23 45 07/14/20 04:00 Mechanical Ventilator 07/14/20 04:00 77 07/14/20 04:00 40 07/14/20 04:00 96.8 73 29 130/76 (94) 98 07/14/20 03:23 74 25 98 Mechanical Ventilator 40 07/14/20 02:36 74 25 40 07/14/20 00:00 Mechanical Ventilator 07/14/20 00:00 40 07/14/20 00:00 96.3 73 18 145/90 (108) 100 07/14/20 00:00 71 07/13/20 22:38 74 23 100 Mechanical Ventilator 40 75 23 40 07/13/20 20:00 95.9 74 22 141/87 (105) 98 07/13/20 20:00 40 07/13/20 20:00 Mechanical Ventilator 07/13/20 19:54 74 07/13/20 18:43 74 20 40 07/13/20 16:00 97.3 73 20 144/73 (96) 98 07/13/20 16:00 40 07/13/20 16:00 Mechanical Ventilator 07/13/20 15:23 74 07/13/20 15:10 73 22 40 07/13/20 12:21 73 07/13/20 12:00 40 07/13/20 12:00 Mechanical Ventilator 07/13/20 11:44 97.2 73 20 140/70 (93) 99 07/13/20 11:20 72 25 99 Mechanical Ventilator 40 75 24 40 Height (Feet): 5 Height (Inches): 8.00 Weight (Pounds): 143 General Appearance: no acute distress HEENT: mucous membranes moist Respiratory/Chest: lungs clear, other - on ventilator Cardiovascular: normal rate, other - Permacath Abdomen: soft, non tender, other - GT feeding Extremities: other - left BKA Skin: ulcers, other - sacral Neurologic/Psychiatric: other - opens eyes Laboratory Tests Test 07/13/20 11:28 07/13/20 17:32 07/13/20 23:40 07/14/20 04:49 POC Whole Blood Glucose 179 MG/DL (74-106) H 149 MG/DL (74-106) H 144 MG/DL (74-106) H Arterial Blood pH 7.217 (7.350-7.450) Arterial Blood Partial Pressure CO2 76.4 mmHg (35.0-45.0) *H Arterial Blood Partial Pressure O2 74.9 mmHg (75.0-100.0) L Arterial Blood HCO3 30.4 mmol/L (22.0-26.0) H Arterial Blood Oxygen Saturation 92.9 % (95-100) L Arterial Blood Base Excess 1.6 (-2-2) Joe Test Positive Test 07/14/20 05:43 07/14/20 06:04 07/14/20 09:25 POC Whole Blood Glucose 102 MG/DL (74-106) White Blood Count 7.6 K/UL (4.8-10.8) Red Blood Count 2.76 M/UL (4.70-6.10) L Hemoglobin 8.0 G/DL (14.2-18.0) L Hematocrit 24.8 % (42.0-52.0) L Mean Corpuscular Volume 90 FL (80-99) Mean Corpuscular Hemoglobin 28.9 PG (27.0-31.0) Mean Corpuscular Hemoglobin Concent 32.2 G/DL (32.0-36.0) Red Cell Distribution Width 15.6 % (11.6-14.8) H Platelet Count 193 K/UL (150-450) Mean Platelet Volume 7.9 FL (6.5-10.1) Neutrophils (%) (Auto) 66.0 % (45.0-75.0) Lymphocytes (%) (Auto) 13.6 % (20.0-45.0) L Monocytes (%) (Auto) 9.0 % (1.0-10.0) Eosinophils (%) (Auto) 10.3 % (0.0-3.0) H Basophils (%) (Auto) 1.1 % (0.0-2.0) Sodium Level 132 MMOL/L (136-145) L Potassium Level 5.0 MMOL/L (3.5-5.1) Chloride Level 98 MMOL/L (98-107) Carbon Dioxide Level 31 MMOL/L (21-32) Blood Urea Nitrogen 79 mg/dL (7-18) H Creatinine 3.8 MG/DL (0.55-1.30) H Estimat Glomerular Filtration Rate 20.2 mL/min (>60) Glucose Level 101 MG/DL (74-106) Calcium Level 8.2 MG/DL (8.5-10.1) L Phosphorus Level 4.2 MG/DL (2.5-4.9) Magnesium Level 2.6 MG/DL (1.8-2.4) H Total Bilirubin 0.4 MG/DL (0.2-1.0) Aspartate Amino Transf (AST/SGOT) 35 U/L (15-37) Alanine Aminotransferase (ALT/SGPT) 59 U/L (12-78) Alkaline Phosphatase 302 U/L (46-116) H Total Protein 7.5 G/DL (6.4-8.2) Albumin 1.4 G/DL (3.4-5.0) L Globulin 6.1 g/dL Albumin/Globulin Ratio 0.2 (1.0-2.7) L Arterial Blood pH 7.215 (7.350-7.450) Arterial Blood Partial Pressure CO2 74.4 mmHg (35.0-45.0) *H Arterial Blood Partial Pressure O2 98.0 mmHg (75.0-100.0) Arterial Blood HCO3 29.4 mmol/L (22.0-26.0) H Arterial Blood Oxygen Saturation 96.6 % (95-100) Arterial Blood Base Excess 0.7 (-2-2) Joe Test Positive Current Medications Medications (Trade) Dose Ordered Sig/Maryjane Route PRN Reason Start Time Stop Time Status Last Admin Dose Admin Acetaminophen (Tylenol) 650 mg Q4H PRN GT Mild Pain (Pain Scale 1-3) 06/18/20 23:00 07/18/20 22:59 07/12/20 13:22 Aluminum Hydroxide (Amphojel) 1,920 mg Q6H GT 06/17/20 10:00 07/17/20 09:59 07/14/20 09:39 Ascorbic Acid (Vitamin C) 500 mg DAILY GT 07/01/20 09:00 07/31/20 08:59 07/14/20 09:39 Cefepime HCl 500 mg/Dextrose 55 ml @ 110 mls/hr Q24H IV 07/08/20 16:00 07/14/20 23:59 07/13/20 16:09 Chlorhexidine Gluconate (Inés-Hex 2%) 1 applic DAILY@1999 TOPIC 06/21/20 20:00 09/19/20 19:59 07/13/20 20:08 Dextrose (Dextrose 50%) 25 ml Q30M PRN IV Hypoglycemia 06/28/20 18:30 09/26/20 18:29 Dextrose (Dextrose 50%) 50 ml Q30M PRN IV Hypoglycemia 06/28/20 18:30 09/26/20 18:29 Epoetin Bonilla (Epoetin Bonilla(ESRD on dialysis)) 10,000 unit TUE-TUE-TUE SUBQ 07/02/20 21:00 09/16/20 20:59 07/11/20 21:16 Gentamicin Sulfate (Gentamicin vial) 300 mg Q12HR@10, INH 07/07/20 22:00 07/14/20 21:59 07/14/20 11:17 Haloperidol Lactate (Haldol) 5 mg Q6H PRN IM Agitation 06/21/20 23:15 08/05/20 23:14 06/25/20 18:17 Insulin Aspart (NovoLOG) EVERY 6 HOURS SUBQ 06/29/20 00:00 09/27/20 00:00 07/13/20 23:58 Lansoprazole (Prevacid) 30 mg Q12HR GT 06/30/20 21:00 07/30/20 20:59 07/14/20 09:38 Levothyroxine Sodium (Synthroid) 88 mcg DAILY@06 GT 07/03/20 06:30 12/26/20 06:29 07/14/20 06:23 Vancomycin HCl (Vanco pharmacy to dose) 1 ea DAILY PRN MISC Per rx protocol 06/27/20 11:30 07/18/20 23:59 Paul Amador MD Jul 14, 2020 11:20
[2020-07-14 12:00] VITALS: BP 123/75
--- NOTE | 2020-07-14 12:00 | NUR ---
NURSE NOTES: BS 86 noted. The patient is asymptomatic. TF running per order. Will closely monitor the patient. Will continue plan of care.
--- NOTE | 2020-07-14 12:45 | NUR ---
NURSE NOTES: Dr. Garcia was notified regarding repeat ABG result. No new order at this time. Per Dr. Rios, the patient is cleared from pulmo standpoint. Will closely monitor the patient. Will continue plan of care.
--- NOTE | 2020-07-14 13:02 | NUR ---
CASE MANAGEMENT:REVIEW SI;RESP FAILURE TRACH/VENT DEPENDENT,SEPSIS, RENAL FAILURE. 95.9 77 29 145/90 98% TRACH/VENT FIO2 45% H/H 8.0/24.8 NA 132 BUN 79 CR 3.8 MAG 2.6 ALB 1.4 IS;VANCOMYCIN IV ONCE GENTAMICIN INH Q12 PREVACID GT Q12 VIT C GT QD KALYN STATUS DCP;TO MIGEL CONV DC PENDING SHAUNA TO MIGEL
--- NOTE | 2020-07-14 13:55 | NUR ---
REHABILITATION INSPECTOR NOTES SPOKE WITH JESUS FROM [facility], THEY ARE CURRENTLY WORKING ON THE SHAUNA FOR MIGEL. WILL FOLLOW UP.
[2020-07-14 16:00] VITALS: BP 120/70
--- NOTE | 2020-07-14 16:00 | NUR ---
NURSE NOTES: Bed bath given to the patient. The patient tolerated well. Will closely monitor the patient. Will continue plan of care. Addendum: 07/14/20 at 1909 by Clayton Murillo RN Wound care done and dressing changed.
--- NOTE | 2020-07-14 16:44 | Surgery Progress Note ---
Surgery Progress Note Subjective Additional Comments desaturating today trach checked and okay vent settings noted cxr reviewed abg co2 retention Objective Last 24 Hour Vital Signs Date Time Temp Pulse Resp B/P (MAP) Pulse Ox O2 Delivery O2 Flow Rate FiO2 07/14/20 12:00 45 07/14/20 12:00 97.0 65 16 123/75 (91) 100 07/14/20 12:00 Mechanical Ventilator 07/14/20 12:00 63 07/14/20 11:27 65 22 100 Mechanical Ventilator 45 75 23 40 07/14/20 10:25 65 25 45 07/14/20 10:02 65 25 45 07/14/20 09:25 69 22 45 07/14/20 08:45 68 25 45 07/14/20 08:00 Mechanical Ventilator 07/14/20 08:00 45 07/14/20 08:00 68 07/14/20 08:00 96.8 68 16 121/70 (87) 98 07/14/20 07:10 67 23 45 07/14/20 04:00 Mechanical Ventilator 07/14/20 04:00 77 07/14/20 04:00 40 07/14/20 04:00 96.8 73 29 130/76 (94) 98 07/14/20 03:23 74 25 98 Mechanical Ventilator 40 07/14/20 02:36 74 25 40 07/14/20 00:00 Mechanical Ventilator 07/14/20 00:00 40 07/14/20 00:00 96.3 73 18 145/90 (108) 100 07/14/20 00:00 71 07/13/20 22:38 74 23 100 Mechanical Ventilator 40 75 23 40 07/13/20 20:00 95.9 74 22 141/87 (105) 98 07/13/20 20:00 40 07/13/20 20:00 Mechanical Ventilator 07/13/20 19:54 74 07/13/20 18:43 74 20 40 I&O Intake and Output 07/13/20 07/14/20 19:00 07:00 Intake Total 955 ml 720 ml Output Total 200 ml 300 ml Balance 755 ml 420 ml Free Water 60 ml 90 ml IV Total 55 ml Tube Feeding 840 ml 630 ml Output Urine Total 200 ml 200 ml Stool Total 100 ml # Bowel Movements 100 Dressing: saturated Cardiovascular: RSR Respiratory: decreased breath sounds Abdomen: non-tender, present bowel sounds, non-distended Extremities: no edema, no tenderness, no cyanosis Laboratory Tests Test 07/13/20 17:32 07/13/20 23:40 07/14/20 04:49 07/14/20 05:43 POC Whole Blood Glucose 149 MG/DL (74-106) H 144 MG/DL (74-106) H 102 MG/DL (74-106) Arterial Blood pH 7.217 (7.350-7.450) Arterial Blood Partial Pressure CO2 76.4 mmHg (35.0-45.0) *H Arterial Blood Partial Pressure O2 74.9 mmHg (75.0-100.0) L Arterial Blood HCO3 30.4 mmol/L (22.0-26.0) H Arterial Blood Oxygen Saturation 92.9 % (95-100) L Arterial Blood Base Excess 1.6 (-2-2) Joe Test Positive Test 07/14/20 06:04 07/14/20 09:25 07/14/20 11:39 07/14/20 12:32 White Blood Count 7.6 K/UL (4.8-10.8) Red Blood Count 2.76 M/UL (4.70-6.10) L Hemoglobin 8.0 G/DL (14.2-18.0) L Hematocrit 24.8 % (42.0-52.0) L Mean Corpuscular Volume 90 FL (80-99) Mean Corpuscular Hemoglobin 28.9 PG (27.0-31.0) Mean Corpuscular Hemoglobin Concent 32.2 G/DL (32.0-36.0) Red Cell Distribution Width 15.6 % (11.6-14.8) H Platelet Count 193 K/UL (150-450) Mean Platelet Volume 7.9 FL (6.5-10.1) Neutrophils (%) (Auto) 66.0 % (45.0-75.0) Lymphocytes (%) (Auto) 13.6 % (20.0-45.0) L Monocytes (%) (Auto) 9.0 % (1.0-10.0) Eosinophils (%) (Auto) 10.3 % (0.0-3.0) H Basophils (%) (Auto) 1.1 % (0.0-2.0) Sodium Level 132 MMOL/L (136-145) L Potassium Level 5.0 MMOL/L (3.5-5.1) Chloride Level 98 MMOL/L (98-107) Carbon Dioxide Level 31 MMOL/L (21-32) Blood Urea Nitrogen 79 mg/dL (7-18) H Creatinine 3.8 MG/DL (0.55-1.30) H Estimat Glomerular Filtration Rate 20.2 mL/min (>60) Glucose Level 101 MG/DL (74-106) Calcium Level 8.2 MG/DL (8.5-10.1) L Phosphorus Level 4.2 MG/DL (2.5-4.9) Magnesium Level 2.6 MG/DL (1.8-2.4) H Total Bilirubin 0.4 MG/DL (0.2-1.0) Aspartate Amino Transf (AST/SGOT) 35 U/L (15-37) Alanine Aminotransferase (ALT/SGPT) 59 U/L (12-78) Alkaline Phosphatase 302 U/L (46-116) H Total Protein 7.5 G/DL (6.4-8.2) Albumin 1.4 G/DL (3.4-5.0) L Globulin 6.1 g/dL Albumin/Globulin Ratio 0.2 (1.0-2.7) L Arterial Blood pH 7.215 (7.350-7.450) 7.216 (7.350-7.450) Arterial Blood Partial Pressure CO2 74.4 mmHg (35.0-45.0) *H 71.8 mmHg (35.0-45.0) *H Arterial Blood Partial Pressure O2 98.0 mmHg (75.0-100.0) 89.6 mmHg (75.0-100.0) Arterial Blood HCO3 29.4 mmol/L (22.0-26.0) H 28.5 mmol/L (22.0-26.0) H Arterial Blood Oxygen Saturation 96.6 % (95-100) 96.9 % (95-100) Arterial Blood Base Excess 0.7 (-2-2) -0.1 (-2-2) Joe Test Positive Positive POC Whole Blood Glucose 86 MG/DL (74-106) Plan Problems: (1) Leukocytosis Assessment & Plan: 54-year-old male multiple comorbidities admitted for abnormal chest x-ray potentially pneumonia leukocytosis abnormal labs. Patient identified to have a prior left BKA surgical sutures still in place as well as a surgical sacral wound with sutures in place. Considerations of dehiscence being identified and potential etiology of infection. After evaluation unlikely source of infection though the sacral wound was looked to be dehiscing at the inferior aspect. No acute surgical mention at this time We will discussed care plan with PCP Recommend follow-up with initial surgeon considerations of removal of surgical sutures Care plan initiated worsening lft's US ordered ? shayla monitor for bleeding from right chest wall cath change dressings Extensive airspace consolidations at the lung bases consistent with severe multifocal infiltrate. Associated, large bilateral pleural effusions. Evaluation of the abdominal viscera is markedly suboptimal due to poor CT technique and lack of intravenous contrast. No definite hepatic lesion. No definite cholelithiasis. Mild colon wall thickening. The spleen, pancreas, and adrenal glands are not visualized well enough reliable assessment. No definite hydronephrosis. The kidneys are hyperdense, correlate for medical renal disease. No nephrolithiasis. Sparrow catheter within a decompressed urinary bladder. Moderate diverticulosis, without acute diverticulitis. No small bowel obstruction. PEG tube presumably within the stomach. Atherosclerotic calcifications of the aorta. Low-attenuation of the intravascular blood pool, correlate for anemia. IVC filter, incidentally noted. Air within the subcutaneous fat overlying the sacrum with skin thickening, correlate with physical exam for sacral decubitus ulcer. Degenerative changes of the spine. Bilateral pars defects at L5 without anterolisthesis of L5 on S1. IMPRESSION: Extensive airspace consolidations at the lung bases consistent with severe multifocal infiltrate. Associated, large bilateral pleural effusions. Evaluation of the abdominal viscera is markedly suboptimal due to poor CT technique and lack of intravenous contrast. Moderate diverticulosis, without acute diverticulitis. No small bowel obstruction. PEG tube presumably within the stomach. Note, if there is suspicion for colitis consider repeat scan with improved CT technique/intravenous contrast. Mild gallbladder wall thickening without definite evidence of cholelithiasis. Air within the subcutaneous fat overlying the sacrum with skin thickening, correlate with physical exam for sacral decubitus ulcer. Bilateral pars defects at L5. The kidneys are hyperdense, correlate for medical renal disease.. There is prompt uptake within the liver with washout of radiotracer from the liver on subsequent imaging. There is excretion into the biliary ducts. Gallbladder activity is present in a timely fashion indicating patency of the cystic duct. Very scant bowel activity is demonstrated concerning for common bile duct obstruction or sphincter dysfunction. IMPRESSION: No evidence to suggest cholecystitis. Gallbladder activity is present in a timely fashion indicating patency of the cystic duct. Very little radiotracer noted in the small bowel. Correlate with LFTs as a degree of common bile duct obstruction or sphincter dysfunction not excluded. Consider f urther evaluation with MRCP. (2) Surgical wound dehiscence Assessment & Plan: Patient identified to have a left BKA surgical sutures in place flap looks like it is taken well no signs of infection at this time no signs of seroma hematoma or drainage. Unknown exact length or duration of potential prior left BKA and until then recommend leaving sutures in place as it may be too early though it does look well-healed. If able to obtain prior records we will be happy to remove sutures otherwise will need follow-up with primary surgeon furthermore patient identified to have a surgical wound in the sacral area seems he probably potentially had a stage IV sacral decubitus ulcer that had debridement and primary closure. Fortunately. Sutures are still in place and it looks like the inferior aspect may be slowly dehiscing. There is no significant drainage no foul odor no signs of active infection unknown if bone was palpable prior. Can consider removing surgical sutures but again would recommend obtaining prior records of possible prior to doing so. Also recommend following up with primary surgeon as this may need ongoing continued care. Will follow with recommendations and as information is available. Continue current care plan. Wash wounds daily with normal saline. Apply skin protectant Optifoam dressing. Turn every 2 hours. Offload pressure with pillows and air mattress. Nutritional optimization. Worsening leukocytosis. Patient continues to have dehiscence of the prior primarily closed sacral decubitus ulcer. The sutures are was nearly torn out and the wound is opening and saturating with stool with bowel movements now has rectal tube. Unfortunately I see significant concern given dehiscence and therefore sutures were cut at the bedside and wound immediately opened under some tension. Underlying Vicryl sutures identified. There is some backbleeding some granulation tissue but definitely no take or closure of the stage IV sacral decubitus ulcer that was identified. Nonexcisional debridement done with gauze and jorge layer of slough and biofilm was removed wound was cleaned packing dress ings applied. No abscess no purulent drainage unlikely etiology of infection. (3) History of left below knee amputation (4) Malnutrition Assessment & Plan: DAILY ESTIMATED NEEDS: Needs based on Wound, critical care, underweight/ 55.5kg 25-33 (25-35 w/ HD) kcals/kg 3023-6553 (3301-6384) total kcals 1.25-2 g protein/kg 69-111 g total protein 25-30 mL/kg 6944-6945 total fluid mLs NUTRITION DIAGNOSIS: * Swallowing difficulty R/T respiratory status as evidenced by pt is trach/vent dep, PEG dep. CURRENT TF: Nepro @ 40ml/hr x24 hrs ENTERAL NUTRITION RECOMMENDATIONS: Nepro @ 40ml/hr x 24 hrs to provide 960ml, 1728kcal, 78g prot, 698ml free water * Maintain current TF * HOB over 30 degrees/ water flush per MD ADDITIONAL RECOMMENDATIONS: * Per SNF: HT=69" OC=368clv -> rec daily calibrated bedscale wt * Monitor lytes: elev K-> now wnl, phos now low * Wound healing: RANDY BID + Nephrovite 1 tab qdaily * Monitor for bm, last bm 06/19, now 06/24 * W/ HD rec to add Prosource 1 pack qdaily for added 11g pro/day. (5) Anemia (6) KERRI (acute kidney injury) (7) Acute respiratory failure Assessment & Plan: hold on trach change cuff okay vent settings prn abg cxr noted (8) Hyperkalemia (9) Anemia (10) Abnormal laboratory test result (11) Chronic respiratory failure (12) Hyperglycemia (13) Hypothyroidism Azar Mares Jul 14, 2020 16:44
--- NOTE | 2020-07-14 18:00 | NUR ---
NURSE NOTES: BS 150 noted. Novolog coveraged per order. Will closely monitor the patient. Will continue plan of care.
--- NOTE | 2020-07-14 19:10 | NUR ---
NURSE NOTES: Receive report from MAX Cervantes. Pt awake in bed, eyes open, follows commands, afebrile and no respiratory distress noted. On vent trach shiley 8, AC 16, Tidal volume 500, Fi O2 45%, Pt saturating at 97%. On Vital AF @ 70cc/hr via GT, intact, patent, flushed well. No residual noted.PT tolerating well. With R IJ permacath for HD access, dressing intact no bleeding noted. With R hand #22g TKO, patent and asymptomatic. Sparrow catheter to urine bag draining well with dark gerard yellow. Rectal tube in place, draining via gravity .HOB elevated. Safety measures in placed. Call light within reach. Bed rails are up and wheels are up. Bed alarm is on. Will continue plan of care.
--- NOTE | 2020-07-14 19:15 | NUR ---
NURSE HAND-OFF REPORT: Important Events on Shift: Possible trach airleak_ seen and assessed by Dr. Garcia and Dr. Mares, Hgb 8.0_ No transfusion per Dr. Tan's order Patient Status: Stable, Full code Diet: GTF Vital AF 1.2 @ 70mL/hr Pending Orders: HD to be done 07/15/2020 Pending Results/Labs: N Pending MD notification: N Latest Vital Signs: Temperature 97.2 , Pulse 64 , B/P 120 /70 , Respiratory Rate 22 , O2 SAT 100 , Mechanical Ventilator, O2 Flow Rate 15.0 . Vital Sign Comment: Stable EKG Rhythm: Sinus Rhythm Rhythm change?: N MD Notified?: Y -Dr. Mcguire and Dr. Ambika BENDER Response: No New Orders Received Latest Santiago Fall Score: 60 Fall Risk: High Risk Safety Measures: Call light Within Reach, Bed Alarm Zone 2, Side Rails Side Rails x2, Bed position Low and Locked. Fall Precautions: Yellow Socks Yellow Gown Door Sign Patient Fall Education Report given to MAX Quinones. The patient is stable at this time. Endorsed plan of care.
[2020-07-14 20:00] VITALS: BP 121/75
[2020-07-14] MEDS: Dyna-Hex 2% Top Sol 2oz TOPIC SCH (20:28)
[2020-07-14] MEDS: Epoetin Alfa-EPBX(ESRD on dialysis)10,000 unit/ml vial SUBQ SCH (20:28)
--- NOTE | 2020-07-14 20:53 | General Progress Note ---
Subjective Allergies: Coded Allergies: No Known Allergies (Unverified , 06/13/20) Subjective above noted stools liquid tolerating TF Objective Last 24 Hour Vital Signs Date Time Temp Pulse Resp B/P (MAP) Pulse Ox O2 Delivery O2 Flow Rate FiO2 07/14/20 20:00 96.9 65 24 121/75 (90) 100 07/14/20 20:00 45 07/14/20 20:00 Mechanical Ventilator 07/14/20 19:30 64 22 45 07/14/20 16:00 45 07/14/20 16:00 Mechanical Ventilator 07/14/20 16:00 65 07/14/20 16:00 97.2 64 16 120/70 (87) 100 07/14/20 15:10 64 21 45 07/14/20 12:00 45 07/14/20 12:00 97.0 65 16 123/75 (91) 100 07/14/20 12:00 Mechanical Ventilator 07/14/20 12:00 63 07/14/20 11:27 65 22 100 Mechanical Ventilator 45 75 23 40 07/14/20 10:25 65 25 45 07/14/20 10:02 65 25 45 07/14/20 09:25 69 22 45 07/14/20 08:45 68 25 45 07/14/20 08:00 Mechanical Ventilator 07/14/20 08:00 45 07/14/20 08:00 68 07/14/20 08:00 96.8 68 16 121/70 (87) 98 07/14/20 07:10 67 23 45 07/14/20 04:00 Mechanical Ventilator 07/14/20 04:00 77 07/14/20 04:00 40 07/14/20 04:00 96.8 73 29 130/76 (94) 98 07/14/20 03:23 74 25 98 Mechanical Ventilator 40 07/14/20 02:36 74 25 40 07/14/20 00:00 Mechanical Ventilator 07/14/20 00:00 40 07/14/20 00:00 96.3 73 18 145/90 (108) 100 07/14/20 00:00 71 07/13/20 22:38 74 23 100 Mechanical Ventilator 40 75 23 40 Intake and Output 07/13/20 07/14/20 19:00 07:00 Intake Total 955 ml 720 ml Output Total 200 ml 300 ml Balance 755 ml 420 ml Free Water 60 ml 90 ml IV Total 55 ml Tube Feeding 840 ml 630 ml Output Urine Total 200 ml 200 ml Stool Total 100 ml # Bowel Movements 100 Laboratory Tests 07/13/20 23:40: POC Whole Blood Glucose 144H 07/14/20 04:49: Arterial Blood pH 7.217*L, Arterial Blood Partial Pressure CO2 76.4*H, Arterial Blood Partial Pressure O2 74.9L, Arterial Blood HCO3 30.4H, Arterial Blood Oxygen Saturation 92.9L, Arterial Blood Base Excess 1.6, Joe Test Positive 07/14/20 05:43: POC Whole Blood Glucose 102 07/14/20 06:04: White Blood Count 7.6, Red Blood Count 2.76L, Hemoglobin 8.0L, Hematocrit 24.8L, Mean Corpuscular Volume 90, Mean Corpuscular Hemoglobin 28.9, Mean Corpuscular Hemoglobin Concent 32.2, Red Cell Distribution Width 15.6H, Platelet Count 193, Mean Platelet Volume 7.9, Neutrophils (%) (Auto) 66.0, Lymphocytes (%) (Auto) 13.6L, Monocytes (%) (Auto) 9.0, Eosinophils (%) (Auto) 10.3H, Basophils (%) (Auto) 1.1, Sodium Level 132L, Potassium Level 5.0, Chloride Level 98, Carbon Dioxide Level 31, Blood Urea Nitrogen 79H, Creatinine 3.8H, Estimat Glomerular Filtration Rate 20.2, Glucose Level 101, Calcium Level 8.2L, Phosphorus Level 4.2, Magnesium Level 2.6H, Total Bilirubin 0.4, Aspartate Amino Transf (AST/SGOT) 35, Alanine Aminotransferase (ALT/SGPT) 59, Alkaline Phosphatase 302H , Total Protein 7.5, Albumin 1.4L, Globulin 6.1, Albumin/Globulin Ratio 0.2L 07/14/20 09:25: Arterial Blood pH 7.215*L, Arterial Blood Partial Pressure CO2 74.4*H, Arterial Blood Partial Pressure O2 98.0, Arterial Blood HCO3 29.4H, Arterial Blood Oxygen Saturation 96.6, Arterial Blood Base Excess 0.7, Joe Test Positive 07/14/20 11:39: POC Whole Blood Glucose 86 07/14/20 12:32: Arterial Blood pH 7.216*L, Arterial Blood Partial Pressure CO2 71.8*H, Arterial Blood Partial Pressure O2 89.6, Arterial Blood HCO3 28.5H, Arterial Blood Oxygen Saturation 96.9, Arterial Blood Base Excess -0.1, Joe Test Positive 07/14/20 17:49: POC Whole Blood Glucose 150H Height (Feet): 5 Height (Inches): 8.00 Weight (Pounds): 143 Objective Debilitated elderly man NCAT supple Coarse BS RRR abd sofft, flat, (+) GT s/p LLE BKA Assessment/Plan Status: progressing Assessment/Plan: Assessment Abnormal LFT - steadily improving (s/p US, CT, HIDA) h/o Gross hematuria Anemia low platelet count - resolved low albumin Azotemia Recommendations - Unable to have MRCP due to oscar - follow LFT and CBC - no plans for endoscopic GI w/u, per family discussion - TF - increased rate to give more Kcal and protein - Transfuse Fco Banerjee MD Jul 14, 2020 20:53
--- NOTE | 2020-07-14 21:06 | General Progress Note ---
Subjective ROS Limited/Unobtainable: Yes Allergies: Coded Allergies: No Known Allergies (Unverified , 06/13/20) Objective Last 24 Hour Vital Signs Date Time Temp Pulse Resp B/P (MAP) Pulse Ox O2 Delivery O2 Flow Rate FiO2 07/14/20 20:00 96.9 65 24 121/75 (90) 100 07/14/20 20:00 45 07/14/20 20:00 Mechanical Ventilator 07/14/20 19:30 64 22 45 07/14/20 16:00 45 07/14/20 16:00 Mechanical Ventilator 07/14/20 16:00 65 07/14/20 16:00 97.2 64 16 120/70 (87) 100 07/14/20 15:10 64 21 45 07/14/20 12:00 45 07/14/20 12:00 97.0 65 16 123/75 (91) 100 07/14/20 12:00 Mechanical Ventilator 07/14/20 12:00 63 07/14/20 11:27 65 22 100 Mechanical Ventilator 45 75 23 40 07/14/20 10:25 65 25 45 07/14/20 10:02 65 25 45 07/14/20 09:25 69 22 45 07/14/20 08:45 68 25 45 07/14/20 08:00 Mechanical Ventilator 07/14/20 08:00 45 07/14/20 08:00 68 07/14/20 08:00 96.8 68 16 121/70 (87) 98 07/14/20 07:10 67 23 45 07/14/20 04:00 Mechanical Ventilator 07/14/20 04:00 77 07/14/20 04:00 40 07/14/20 04:00 96.8 73 29 130/76 (94) 98 07/14/20 03:23 74 25 98 Mechanical Ventilator 40 07/14/20 02:36 74 25 40 07/14/20 00:00 Mechanical Ventilator 07/14/20 00:00 40 07/14/20 00:00 96.3 73 18 145/90 (108) 100 07/14/20 00:00 71 07/13/20 22:38 74 23 100 Mechanical Ventilator 40 75 23 40 Intake and Output 07/13/20 07/14/20 19:00 07:00 Intake Total 955 ml 720 ml Output Total 200 ml 300 ml Balance 755 ml 420 ml Free Water 60 ml 90 ml IV Total 55 ml Tube Feeding 840 ml 630 ml Output Urine Total 200 ml 200 ml Stool Total 100 ml # Bowel Movements 100 Laboratory Tests 07/13/20 23:40: POC Whole Blood Glucose 144H 07/14/20 04:49: Arterial Blood pH 7.217*L, Arterial Blood Partial Pressure CO2 76.4*H, Arterial Blood Partial Pressure O2 74.9L, Arterial Blood HCO3 30.4H, Arterial Blood Oxygen Saturation 92.9L, Arterial Blood Base Excess 1.6, Joe Test Positive 07/14/20 05:43: POC Whole Blood Glucose 102 07/14/20 06:04: White Blood Count 7.6, Red Blood Count 2.76L, Hemoglobin 8.0L, Hematocrit 24.8L, Mean Corpuscular Volume 90, Mean Corpuscular Hemoglobin 28.9, Mean Corpuscular Hemoglobin Concent 32.2, Red Cell Distribution Width 15.6H, Platelet Count 193, Mean Platelet Volume 7.9, Neutrophils (%) (Auto) 66.0, Lymphocytes (%) (Auto) 13.6L, Monocytes (%) (Auto) 9.0, Eosinophils (%) (Auto) 10.3H, Basophils (%) (Auto) 1.1, Sodium Level 132L, Potassium Level 5.0, Chloride Level 98, Carbon Dioxide Level 31, Blood Urea Nitrogen 79H, Creatinine 3.8H, Estimat Glomerular Filtration Rate 20.2, Glucose Level 101, Calcium Level 8.2L, Phosphorus Level 4.2, Magnesium Level 2.6H, Total Bilirubin 0.4, Aspartate Amino Transf (AST/SGOT) 35, Alanine Aminotransferase (ALT/SGPT) 59, Alkaline Phosphatase 302H , Total Protein 7.5, Albumin 1.4L, Globulin 6.1, Albumin/Globulin Ratio 0.2L 07/14/20 09:25: Arterial Blood pH 7.215*L, Arterial Blood Partial Pressure CO2 74.4*H, Arterial Blood Partial Pressure O2 98.0, Arterial Blood HCO3 29.4H, Arterial Blood Oxygen Saturation 96.6, Arterial Blood Base Excess 0.7, Joe Test Positive 07/14/20 11:39: POC Whole Blood Glucose 86 07/14/20 12:32: Arterial Blood pH 7.216*L, Arterial Blood Partial Pressure CO2 71.8*H, Arterial Blood Partial Pressure O2 89.6, Arterial Blood HCO3 28.5H, Arterial Blood Oxygen Saturation 96.9, Arterial Blood Base Excess -0.1, Joe Test Positive 07/14/20 17:49: POC Whole Blood Glucose 150H Height (Feet): 5 Height (Inches): 8.00 Weight (Pounds): 143 Assessment/Plan Problem List: (1) Anemia ICD Codes: D64.9 - Anemia, unspecified SNOMED: 985802519 (2) KERRI (acute kidney injury) ICD Codes: N17.9 - Acute kidney failure, unspecified SNOMED: 1526904, 12536976 (3) Acute respiratory failure ICD Codes: J96.00 - Acute respiratory failure, unspecified whether with hypoxia or hypercapnia SNOMED: 36939433 Qualifiers: Qualified Codes: J96.02 - Acute respiratory failure with hypercapnia (4) Hyperkalemia ICD Codes: E87.5 - Hyperkalemia SNOMED: 18894353 (5) Abnormal laboratory test result ICD Codes: R89.9 - Unspecified abnormal finding in specimens from other organs, systems and tissues SNOMED: 738164316 (6) Anemia ICD Codes: D64.9 - Anemia, unspecified SNOMED: 135762185 Status: progressing Assessment/Plan: s/p trach and esrd on hd s/p pulmonary edema pvc s/p acute mi s/p desaturation trach change per dr jones and Neida Jesus MD Jul 14, 2020 21:06
--- NOTE | 2020-07-14 22:03 | NUR ---
NURSE NOTES: Pt awake in bed , watching tv. No respiratory distress noted. Continue to monitor the patient.
[2020-07-15] VITALS: BP 125/76
--- NOTE | 2020-07-15 02:05 | NUR ---
NURSE NOTES: CHG bath given, oral care provided. Linens changed. Repositioned and turned pt. Kept clean and dry. Will continue to monitor
[2020-07-15 04:00] VITALS: BP 133/82
[2020-07-15] MEDS: Aluminum Hydroxide Gel Susp 15ml GT SCH ×4 (04:17→22:09)
[2020-07-15] MEDS: NovoLOG Insulin Flexpen SUBQ SCH ×4 (05:30→23:36)
--- NOTE | 2020-07-15 06:34 | General Progress Note ---
Subjective ROS Limited/Unobtainable: Yes Allergies: Coded Allergies: No Known Allergies (Unverified , 06/13/20) Subjective events noted interval notes reviewed glucose values are stable TSH improved to 12 Item Value Date Time Bedside Blood Glucose 120 mg/dl 07/15/20 0531 Bedside Blood Glucose 169 mg/dl H 07/15/20 0000 Bedside Blood Glucose 150 mg/dl H 07/14/20 1800 Bedside Blood Glucose 86 mg/dl 07/14/20 1200 Bedside Blood Glucose 102 mg/dl 07/14/20 0600 Objective Last 24 Hour Vital Signs Date Time Temp Pulse Resp B/P (MAP) Pulse Ox O2 Delivery O2 Flow Rate FiO2 07/15/20 04:00 Mechanical Ventilator 07/15/20 04:00 45 07/15/20 04:00 96.8 64 16 133/82 (99) 100 07/15/20 03:30 64 07/15/20 03:30 65 18 45 07/15/20 00:00 Mechanical Ventilator 07/15/20 00:00 96.3 67 21 125/76 (92) 100 07/14/20 23:30 68 07/14/20 23:13 68 23 45 07/14/20 20:00 96.9 65 24 121/75 (90) 100 07/14/20 20:00 45 07/14/20 20:00 Mechanical Ventilator 07/14/20 19:30 64 22 45 07/14/20 19:09 67 07/14/20 16:00 45 07/14/20 16:00 Mechanical Ventilator 07/14/20 16:00 65 07/14/20 16:00 97.2 64 16 120/70 (87) 100 07/14/20 15:10 64 21 45 07/14/20 12:00 45 07/14/20 12:00 97.0 65 16 123/75 (91) 100 07/14/20 12:00 Mechanical Ventilator 07/14/20 12:00 63 07/14/20 11:27 65 22 100 Mechanical Ventilator 45 75 23 40 07/14/20 10:25 65 25 45 07/14/20 10:02 65 25 45 07/14/20 09:25 69 22 45 07/14/20 08:45 68 25 45 07/14/20 08:00 Mechanical Ventilator 07/14/20 08:00 45 07/14/20 08:00 68 07/14/20 08:00 96.8 68 16 121/70 (87) 98 07/14/20 07:10 67 23 45 Intake and Output 07/14/20 07/15/20 19:00 07:00 Intake Total 1140 ml 1000 ml Output Total 170 ml 250 ml Balance 970 ml 750 ml Free Water 300 ml 300 ml Tube Feeding 840 ml 700 ml Output Urine Total 100 ml 150 ml Stool Total 70 ml 100 ml Laboratory Tests 07/14/20 09:25: Arterial Blood pH 7.215*L, Arterial Blood Partial Pressure CO2 74.4*H, Arterial Blood Partial Pressure O2 98.0, Arterial Blood HCO3 29.4H, Arterial Blood Oxygen Saturation 96.6, Arterial Blood Base Excess 0.7, Joe Test Positive 07/14/20 11:39: POC Whole Blood Glucose 86 07/14/20 12:32: Arterial Blood pH 7.216*L, Arterial Blood Partial Pressure CO2 71.8*H, Arterial Blood Partial Pressure O2 89.6, Arterial Blood HCO3 28.5H, Arterial Blood Oxygen Saturation 96.9, Arterial Blood Base Excess -0.1, Joe Test Positive 07/14/20 17:49: POC Whole Blood Glucose 150H 07/14/20 23:07: POC Whole Blood Glucose 169H 07/15/20 05:06: POC Whole Blood Glucose 120H Height (Feet): 5 Height (Inches): 8.00 Weight (Pounds): 143 General Appearance: no apparent distress Cardiovascular: normal rate Respiratory/Chest: decreased breath sounds Abdomen: normal bowel sounds Objective Current Medications Medications (Trade) Dose Ordered Sig/Maryjane Route PRN Reason Start Time Stop Time Status Last Admin Dose Admin Acetaminophen (Tylenol) 650 mg Q4H PRN GT Mild Pain (Pain Scale 1-3) 06/18/20 23:00 07/18/20 22:59 07/12/20 13:22 Aluminum Hydroxide (Amphojel) 1,920 mg Q6H GT 06/17/20 10:00 07/17/20 09:59 07/15/20 04:17 Ascorbic Acid (Vitamin C) 500 mg DAILY GT 07/01/20 09:00 07/31/20 08:59 07/14/20 09:39 Chlorhexidine Gluconate (Inés-Hex 2%) 1 applic DAILY@1999 TOPIC 06/21/20 20:00 2/12/21 19:59 07/14/20 20:28 Dextrose (Dextrose 50%) 25 ml Q30M PRN IV Hypoglycemia 06/28/20 18:30 09/26/20 18:29 Dextrose (Dextrose 50%) 50 ml Q30M PRN IV Hypoglycemia 06/28/20 18:30 09/26/20 18:29 Epoetin Bonilla (Epoetin Bonilla(ESRD on dialysis)) 10,000 unit TUE-TUE-TUE SUBQ 07/02/20 21:00 09/16/20 20:59 07/14/20 20:28 Haloperidol Lactate (Haldol) 5 mg Q6H PRN IM Agitation 06/21/20 23:15 08/05/20 23:14 06/25/20 18:17 Insulin Aspart (NovoLOG) EVERY 6 HOURS SUBQ 06/29/20 00:00 09/27/20 00:00 07/14/20 23:13 Lansoprazole (Prevacid) 30 mg Q12HR GT 06/30/20 21:00 07/30/20 20:59 07/14/20 20:28 Levothyroxine Sodium (Synthroid) 88 mcg DAILY@0630 GT 07/03/20 06:30 08/02/20 06:29 07/15/20 05:34 Vancomycin HCl ([facility] pharmacy to dose) 1 ea DAILY PRN MISC Per rx protocol 06/27/20 11:30 07/18/20 23:59 Assessment/Plan Problem List: (1) History of left below knee amputation ICD Codes: Z89.512 - Acquired absence of left leg below knee SNOMED: 776233929, 938370504753079 (2) Surgical wound dehiscence ICD Codes: T81.31XA - Disruption of external operation (surgical) wound, not elsewhere classified, initial encounter SNOMED: 44135888 (3) Hyperkalemia ICD Codes: E87.5 - Hyperkalemia SNOMED: 39681208 (4) Acute respiratory failure ICD Codes: J96.00 - Acute respiratory failure, unspecified whether with hypoxia or hypercapnia SNOMED: 57774053 Qualifiers: Qualified Codes: J96.02 - Acute respiratory failure with hypercapnia (5) Hypothyroidism ICD Codes: E03.9 - Hypothyroidism, unspecified SNOMED: 89665032 (6) Hyperglycemia ICD Codes: R73.9 - Hyperglycemia, unspecified SNOMED: 26441525 Status: progressing Assessment/Plan: continue Levothyroxine 88 mcg daily - TSH improving repeat thyroid function in 1-2 weeks continue glucose monitoring Davy Ramos MD Jul 15, 2020 06:34
--- NOTE | 2020-07-15 07:23 | NUR ---
NURSE HAND-OFF REPORT: Important Events on Shift:Stable Patient Status: Stable Diet: Vital AF 1.2 Pending Orders: Pending Results/Labs: Pending MD notification: Latest Vital Signs: Temperature 96.8 , Pulse 64 , B/P 133 /82 , Respiratory Rate 16 , O2 SAT 100 , Mechanical Ventilator, O2 Flow Rate 15.0 . Vital Sign Comment: EKG Rhythm: Sinus Rhythm Rhythm change?: N MD Notified?: MD Response: Latest Santiago Fall Score: 60 Fall Risk: High Risk Safety Measures: Call light Within Reach, Bed Alarm Zone 2, Side Rails Side Rails x2, Bed position Low and Locked. Fall Precautions: Yellow Socks Yellow Gown Door Sign Patient Fall Education Report given to MAX Epps.
--- NOTE | 2020-07-15 07:24 | NUR ---
NURSE NOTES: Received pt report from MAX Grimes. Pt is bed awake alert and oriented x3. Pt with trach patent and intact s/p trach change, minimal bleeding noted. Breathing is even and unlabored with no signs of respiratory distress. The patient's GT intact and patent and running Vital AF 1.2 @ 70mL/hr per order. The patient's Sparrow and Rectal tube those are intact and patent and draining by gravity. The patient's skin issue noted and dressing intact. The patient has R IJ permacath for HD access. The patient has R hand 22G PIV that is intact and patent. The patient's bed in the lowest position,locked with side rails x2 up. call light in reach, and fall and aspiration precaution reinforced.
[2020-07-15 08:00] VITALS: BP 127/74
[2020-07-15] MEDS: Ascorbic Acid 500mg tab GT SCH (09:32)
--- NOTE | 2020-07-15 11:04 | NUR ---
RD ASSESSMENT & RECOMMENDATIONS SEE CARE ACTIVITY FOR COMPLETE ASSESSMENT DAILY ESTIMATED NEEDS: Needs based on Wound, critical care, underweight/ 55.5kg 25-35 w/ HD kcals/kg 1472-3018 total kcals 1.25-2 g protein/kg 69-111 g total protein 25-30 mL/kg 4316-6516 total fluid mLs NUTRITION DIAGNOSIS: * Swallowing difficulty R/T respiratory status as evidenced by pt is trach/vent dep, PEG dep. CURRENT TF: VITAL 1.2 @ 70 ml x 22 hrs (held for Synthroid) ENTERAL NUTRITION RECOMMENDATIONS: Nepro @ 45ml/hr x 22 hrs (On Synthroid) + Prosource 1pkt BID to provide 960ml, 1728kcal, 78g +22g prot, 698ml free water * Rec TF change to Nepro: HD dep, elev K * Rec Nepro @ goal rate of 45ml/hr x 22 hrs (hold 1 hr before and after Synthroid) est 1582mg less K/day than Vital 1.2 @70ml/hr x22 hrs. * Prosource 1pkt BID to better meet protein needs(additional 22g prot) * HOB over 30 degrees/ water flush per MD ADDITIONAL RECOMMENDATIONS: * Per SNF: HT=69" [id number] -> rec daily calibrated bedscale wt * Monitor lytes: elev K, rec TF change to Nepro * Wound healing: RANDY BID + Nephrovite 1 tab qdaily * Probiotics for diarrhea . .
--- NOTE | 2020-07-15 11:20 | Pulmonology Progress Note ---
Subjective ROS Limited/Unobtainable: Yes Interval Events: s/p trach change Constitutional: Denies: fever HEENT: Repors: no symptoms Respiratory: Reports: no symptoms Cardiovascular: Reports: no symptoms Gastrointestinal/Abdominal: Reports: diarrhea Genitourinary: Reports: no symptoms Psychiatric: Reports: other - off of restraint Allergies: Coded Allergies: No Known Allergies (Unverified , 06/13/20) All Systems: reviewed and negative except above Objective Last 24 Hour Vital Signs Date Time Temp Pulse Resp B/P (MAP) Pulse Ox O2 Delivery O2 Flow Rate FiO2 07/15/20 09:00 66 07/15/20 08:00 Mechanical Ventilator 07/15/20 08:00 96.3 66 20 127/74 (91) 100 07/15/20 08:00 45 07/15/20 07:18 67 21 45 07/15/20 04:00 Mechanical Ventilator 07/15/20 04:00 45 07/15/20 04:00 96.8 64 16 133/82 (99) 100 07/15/20 03:30 64 07/15/20 03:30 65 18 45 07/15/20 00:00 Mechanical Ventilator 07/15/20 00:00 96.3 67 21 125/76 (92) 100 07/14/20 23:30 68 07/14/20 23:13 68 23 45 07/14/20 20:00 96.9 65 24 121/75 (90) 100 07/14/20 20:00 45 07/14/20 20:00 Mechanical Ventilator 07/14/20 19:30 64 22 45 07/14/20 19:09 67 07/14/20 16:00 45 07/14/20 16:00 Mechanical Ventilator 07/14/20 16:00 65 07/14/20 16:00 97.2 64 16 120/70 (87) 100 07/14/20 15:10 64 21 45 07/14/20 12:00 45 07/14/20 12:00 97.0 65 16 123/75 (91) 100 07/14/20 12:00 Mechanical Ventilator 07/14/20 12:00 63 07/14/20 11:27 65 22 100 Mechanical Ventilator 45 75 23 40 Intake and Output 07/14/20 07/15/20 19:00 07:00 Intake Total 1140 ml 1000 ml Output Total 170 ml 250 ml Balance 970 ml 750 ml Free Water 300 ml 300 ml Tube Feeding 840 ml 700 ml Output Urine Total 100 ml 150 ml Stool Total 70 ml 100 ml Objective 07/15/2020 pt alert; NAD; saturating well on vent; dialysis scheduled today 07/13/2020 pt asleep; NAD General Appearance: WD/WN, no acute distress HEENT: status post trach Respiratory: chest wall non-tender, decreased breath sounds Cardiovascular: normal rate Abdomen: normal bowel sounds Genitourinary: other - Sparrow Extremities: no cyanosis, other - left lower leg amputee; b/l 1+ pitting edema Laboratory Tests 07/14/20 11:39: POC Whole Blood Glucose 86 07/14/20 12:32: Arterial Blood pH 7.216*L, Arterial Blood Partial Pressure CO2 71.8*H, Arterial Blood Partial Pressure O2 89.6, Arterial Blood HCO3 28.5H, Arterial Blood Oxygen Saturation 96.9, Arterial Blood Base Excess -0.1, Joe Test Positive 07/14/20 17:49: POC Whole Blood Glucose 150H 07/14/20 23:07: POC Whole Blood Glucose 169H 07/15/20 05:06: POC Whole Blood Glucose 120H Current Medications Medications (Trade) Dose Ordered Sig/Maryjane Route PRN Reason Start Time Stop Time Status Last Admin Dose Admin Acetaminophen (Tylenol) 650 mg Q4H PRN GT Mild Pain (Pain Scale 1-3) 06/18/20 23:00 07/18/20 22:59 07/12/20 13:22 Aluminum Hydroxide (Amphojel) 1,920 mg Q6H GT 06/17/20 10:00 07/17/20 09:59 07/15/20 09:32 Ascorbic Acid (Vitamin C) 500 mg DAILY GT 07/01/20 09:00 07/31/20 08:59 07/15/20 09:32 Chlorhexidine Gluconate (Inés-Hex 2%) 1 applic DAILY@1999 TOPIC 06/21/20 20:00 09/19/20 19:59 07/14/20 20:28 Dextrose (Dextrose 50%) 25 ml Q30M PRN IV Hypoglycemia 06/28/20 18:30 09/26/20 18:29 Dextrose (Dextrose 50%) 50 ml Q30M PRN IV Hypoglycemia 06/28/20 18:30 09/26/20 18:29 Epoetin Bonilla (Epoetin Bonilla(ESRD on dialysis)) 10,000 unit TUE-TUE-TUE SUBQ 07/02/20 21:00 09/16/20 20:59 07/14/20 20:28 Haloperidol Lactate (Haldol) 5 mg Q6H PRN IM Agitation 06/21/20 23:15 08/05/20 23:14 06/25/20 18:17 Insulin Aspart (NovoLOG) EVERY 6 HOURS SUBQ 06/29/20 00:00 09/27/20 00:00 07/14/20 23:13 Lansoprazole (Prevacid) 30 mg Q12HR GT 06/30/20 21:00 07/30/20 20:59 07/15/20 09:32 Levothyroxine Sodium (Synthroid) 88 mcg DAILY@0630 GT 07/03/20 06:30 08/02/20 06:29 07/15/20 05:34 Vancomycin HCl ([facility] pharmacy to dose) 1 ea DAILY PRN MISC Per rx protocol 06/27/20 11:30 07/18/20 23:59 Assessment/Plan Assessment/Plan IMPRESSION: 1. Chronic respiratory failure. 2. Hypoxemia. - AC 18, TV 500, FiO2 40, PEEP 5 3. Respiratory acidosis. 4. Anemia. 5. Leukocytosis. 6. DVT 7. S/p code blue 06/19/20 DISCUSSION: The patient's x-ray is markedly abnormal with bilateral infiltrates. suspect he has pulmonary fibrosis. Latest CXR is unchanged to slightly improved COVID 19 pcr and antigen both negative No anticoagulation for DVT due to anemia S/p IVC filter placement Continue assist-control mechanical ventilation; currently FiO2 40%; SaO2 100%, broad-spectrum antibiotics. Transfusion as needed. PEEP 5 S/p HD- pt reports feeling better awaiting another dialysis today Will continue to decrease FiO2 as tolerated S/p permacath dc planning- awaiting response from insurance The care for this patient was discussed with my supervising physician. The time spent for this case was approximately 31 minutes The history of Beto Cedeño has been reviewed and management options for him have been examined and discussed by Sylvester Garcia. I have personally examined and interviewed the patient. Chico Treadwell Jul 15, 2020 11:20 Sylvester Garcia MD Jul 15, 2020 16:18
[2020-07-15 12:00] VITALS: BP 122/70
--- NOTE | 2020-07-15 12:13 | Cardiac Electrophysiology PN ---
Assessment/Plan Assessment/Plan 1. Vent-dependent respirator failure. S/P tracheostomy. On 50% Fio2 Chest x-ray extensive bilateral pneumonia or ARDS. Off isolation EF 50%. Ruled out for [place] On iv Abx S/P Trach change 2. Sinus Tachycardia, likely due to respiratory failure and sepsis 3. Right femoral vein DVT. S/P IVC filter 06/18 4. Dysphagia, status post PEG placement. 5. Renal failure. S/P Right IJ Iron and on HD by Dr. Honeycutt. 6. Severe anemia, S/P multiple PRBCs for hematuria 7. High LFTs, s/p CT abdomen and pelvis and HIDA FU Dr. Stringer 8. Transient bradycardia, resolved DW RN Subjective Subjective On the Vent off isolation. On 45% Fio2 and PEEP 5. S/P IVC filter S/P Right IJ Iron and first HD 06/21/20 Had [employer]ULATION as HR dropped to 30 at 4 am 06/25/20 Got PRBC 06/27, 06/28 and 07/07 and 07/11 Had trach change at bedside yesterday Objective Last 24 Hour Vital Signs Date Time Temp Pulse Resp B/P (MAP) Pulse Ox O2 Delivery O2 Flow Rate FiO2 07/15/20 11:16 72 23 35 07/15/20 09:00 66 07/15/20 08:00 Mechanical Ventilator 07/15/20 08:00 96.3 66 20 127/74 (91) 100 07/15/20 08:00 45 07/15/20 07:18 67 21 45 07/15/20 04:00 Mechanical Ventilator 07/15/20 04:00 45 07/15/20 04:00 96.8 64 16 133/82 (99) 100 07/15/20 03:30 64 07/15/20 03:30 65 18 45 07/15/20 00:00 Mechanical Ventilator 07/15/20 00:00 96.3 67 21 125/76 (92) 100 07/14/20 23:30 68 07/14/20 23:13 68 23 45 07/14/20 20:00 96.9 65 24 121/75 (90) 100 07/14/20 20:00 45 07/14/20 20:00 Mechanical Ventilator 07/14/20 19:30 64 22 45 07/14/20 19:09 67 07/14/20 16:00 45 07/14/20 16:00 Mechanical Ventilator 07/14/20 16:00 65 07/14/20 16:00 97.2 64 16 120/70 (87) 100 07/14/20 15:10 64 21 45 Intake and Output 07/14/20 07/15/20 19:00 07:00 Intake Total 1140 ml 1000 ml Output Total 170 ml 250 ml Balance 970 ml 750 ml Free Water 300 ml 300 ml Tube Feeding 840 ml 700 ml Output Urine Total 100 ml 150 ml Stool Total 70 ml 100 ml Laboratory Tests Test 07/14/20 12:32 07/14/20 17:49 07/14/20 23:07 07/15/20 05:06 Arterial Blood pH 7.216 (7.350-7.450) Arterial Blood Partial Pressure CO2 71.8 mmHg (35.0-45.0) *H Arterial Blood Partial Pressure O2 89.6 mmHg (75.0-100.0) Arterial Blood HCO3 28.5 mmol/L (22.0-26.0) H Arterial Blood Oxygen Saturation 96.9 % (95-100) Arterial Blood Base Excess -0.1 (-2-2) Joe Test Positive POC Whole Blood Glucose 150 MG/DL (74-106) H 169 MG/DL (74-106) H 120 MG/DL (74-106) H Objective HEAD AND NECK: Status post tracheostomy. Right IJ Iron in place LUNGS: Coarse rhonchi and basilar rales. CARDIOVASCULAR: Irregular S1 and S2 with no gallop. ABDOMEN: Soft. Status post G-tube. EXTREMITIES: No pitting edema. Lance Mcguire MD Jul 15, 2020 12:13
--- NOTE | 2020-07-15 13:41 | Infectious Diseases Prog Note ---
Assessment/Plan Assessment/Plan IMPRESSION: Pneumonia with Pseudomonas & Providencia Hypothermia COVID19 X 2: negative Ventilator-dependent respiratory failure, Diabetes mellitus type 2, Hypertension, History of left BKA, Hypertension, anemia, Major depression, Pressure ulcer, Elevated transaminase, Hyperkalemia. Anemia R leg DVT s/p IVC filter Sacral osteomyelitis Severe anemia Acute renal failure ESRD Hypercapnic respiratory failure Hematuria Thrombocytopenia Diverticulosis Diarrhea, C. difficile negative RECOMMENDATION: Continue Vancomycin until 07/18 Subjective ROS Limited/Unobtainable: Yes Constitutional: Denies: fever Allergies: Coded Allergies: No Known Allergies (Unverified , 06/13/20) Objective Last 24 Hour Vital Signs Date Time Temp Pulse Resp B/P (MAP) Pulse Ox O2 Delivery O2 Flow Rate FiO2 07/15/20 12:00 96.8 66 21 122/70 (87) 95 07/15/20 12:00 68 07/15/20 12:00 35 07/15/20 12:00 Mechanical Ventilator 07/15/20 11:16 72 23 35 07/15/20 09:00 66 07/15/20 08:00 Mechanical Ventilator 07/15/20 08:00 96.3 66 20 127/74 (91) 100 07/15/20 08:00 45 07/15/20 07:18 67 21 45 07/15/20 04:00 Mechanical Ventilator 07/15/20 04:00 45 07/15/20 04:00 96.8 64 16 133/82 (99) 100 07/15/20 03:30 64 07/15/20 03:30 65 18 45 07/15/20 00:00 Mechanical Ventilator 07/15/20 00:00 96.3 67 21 125/76 (92) 100 07/14/20 23:30 68 07/14/20 23:13 68 23 45 07/14/20 20:00 96.9 65 24 121/75 (90) 100 07/14/20 20:00 45 07/14/20 20:00 Mechanical Ventilator 07/14/20 19:30 64 22 45 07/14/20 19:09 67 07/14/20 16:00 45 07/14/20 16:00 Mechanical Ventilator 07/14/20 16:00 65 07/14/20 16:00 97.2 64 16 120/70 (87) 100 07/14/20 15:10 64 21 45 Height (Feet): 5 Height (Inches): 8.00 Weight (Pounds): 143 HEENT: status post trach Respiratory/Chest: lungs clear, other - on ventilator Cardiovascular: normal rate Abdomen: soft, non tender, other - GT feeding Extremities: other - edema, Left BKA Neurologic/Psychiatric: other - sleeping Laboratory Tests Test 07/14/20 17:49 07/14/20 23:07 07/15/20 05:06 07/15/20 12:03 POC Whole Blood Glucose 150 MG/DL (74-106) H 169 MG/DL (74-106) H 120 MG/DL (74-106) H Pending Current Medications Medications (Trade) Dose Ordered Sig/Maryjane Route PRN Reason Start Time Stop Time Status Last Admin Dose Admin Acetaminophen (Tylenol) 650 mg Q4H PRN GT Mild Pain (Pain Scale 1-3) 06/18/20 23:00 07/18/20 22:59 07/12/20 13:22 Aluminum Hydroxide (Amphojel) 1,920 mg Q6H GT 06/17/20 10:00 07/17/20 09:59 07/15/20 09:32 Ascorbic Acid (Vitamin C) 500 mg DAILY GT 07/01/20 09:00 07/31/20 08:59 07/15/20 09:32 Chlorhexidine Gluconate (Iéns-Hex 2%) 1 applic DAILY@2000 TOPIC 06/21/20 20:00 09/19/20 19:59 07/14/20 20:28 Dextrose (Dextrose 50%) 25 ml Q30M PRN IV Hypoglycemia 06/28/20 18:30 09/26/20 18:29 Dextrose (Dextrose 50%) 50 ml Q30M PRN IV Hypoglycemia 06/28/20 18:30 09/26/20 18:29 Epoetin Bonilla (Epoetin Bonilla(ESRD on dialysis)) 10,000 unit TUE-TUE-TUE SUBQ 07/02/20 21:00 09/16/20 20:59 07/14/20 20:28 Haloperidol Lactate (Haldol) 5 mg Q6H PRN IM Agitation 06/21/20 23:15 08/05/20 23:14 06/25/20 18:17 Insulin Aspart (NovoLOG) EVERY 6 HOURS SUBQ 06/29/20 00:00 09/27/20 00:00 07/14/20 23:13 Lansoprazole (Prevacid) 30 mg Q12HR GT 06/30/20 21:00 07/30/20 20:59 07/15/20 09:32 Levothyroxine Sodium (Synthroid) 88 mcg DAILY@0630 GT 07/03/20 06:30 08/02/20 06:29 07/15/20 05:34 Vancomycin HCl ([facility] pharmacy to dose) 1 ea DAILY PRN MISC Per rx protocol 06/27/20 11:30 07/18/20 23:59 Paul Amador MD Jul 15, 2020 13:41
--- NOTE | 2020-07-15 14:43 | Surgery Progress Note ---
Surgery Progress Note Subjective Additional Comments more stable on vent more comfortable updated sister on phone about care Objective Last 24 Hour Vital Signs Date Time Temp Pulse Resp B/P (MAP) Pulse Ox O2 Delivery O2 Flow Rate FiO2 07/15/20 12:00 96.8 66 21 122/70 (87) 95 07/15/20 12:00 68 07/15/20 12:00 35 07/15/20 12:00 Mechanical Ventilator 07/15/20 11:16 72 23 35 07/15/20 09:00 66 07/15/20 08:00 Mechanical Ventilator 07/15/20 08:00 96.3 66 20 127/74 (91) 100 07/15/20 08:00 45 07/15/20 07:18 67 21 45 07/15/20 04:00 Mechanical Ventilator 07/15/20 04:00 45 07/15/20 04:00 96.8 64 16 133/82 (99) 100 07/15/20 03:30 64 07/15/20 03:30 65 18 45 07/15/20 00:00 Mechanical Ventilator 07/15/20 00:00 96.3 67 21 125/76 (92) 100 07/14/20 23:30 68 07/14/20 23:13 68 23 45 07/14/20 20:00 96.9 65 24 121/75 (90) 100 07/14/20 20:00 45 07/14/20 20:00 Mechanical Ventilator 07/14/20 19:30 64 22 45 07/14/20 19:09 67 07/14/20 16:00 45 07/14/20 16:00 Mechanical Ventilator 07/14/20 16:00 65 07/14/20 16:00 97.2 64 16 120/70 (87) 100 07/14/20 15:10 64 21 45 I&O Intake and Output 07/14/20 07/15/20 19:00 07:00 Intake Total 1140 ml 1000 ml Output Total 170 ml 250 ml Balance 970 ml 750 ml Free Water 300 ml 300 ml Tube Feeding 840 ml 700 ml Output Urine Total 100 ml 150 ml Stool Total 70 ml 100 ml Dressing: saturated Cardiovascular: RSR Respiratory: decreased breath sounds Abdomen: non-tender, present bowel sounds, non-distended Extremities: no edema, no tenderness, no cyanosis Laboratory Tests Test 12/7/20 17:49 07/14/20 23:07 07/15/20 05:06 07/15/20 12:03 POC Whole Blood Glucose 150 MG/DL (74-106) H 169 MG/DL (74-106) H 120 MG/DL (74-106) H Pending Plan Problems: (1) Leukocytosis Assessment & Plan: 54-year-old male multiple comorbidities admitted for abnormal chest x-ray potentially pneumonia leukocytosis abnormal labs. Patient identified to have a prior left BKA surgical sutures still in place as well as a surgical sacral wound with sutures in place. Considerations of dehiscence being identified and potential etiology of infection. After evaluation unlikely source of infection though the sacral wound was looked to be dehiscing at the inferior aspect. No acute surgical mention at this time We will discussed care plan with PCP Recommend follow-up with initial surgeon considerations of removal of surgical sutures Care plan initiated worsening lft's US ordered ? shayla monitor for bleeding from right chest wall cath change dressings Extensive airspace consolidations at the lung bases consistent with severe multifocal infiltrate. Associated, large bilateral pleural effusions. Evaluation of the abdominal viscera is markedly suboptimal due to poor CT technique and lack of intravenous contrast. No definite hepatic lesion. No definite cholelithiasis. Mild colon wall thickening. The spleen, pancreas, and adrenal glands are not visualized well enough reliable assessment. No definite hydronephrosis. The kidneys are hyperdense, correlate for medical renal disease. No nephrolithiasis. Sparrow catheter within a decompressed urinary bladder. Moderate diverticulosis, without acute diverticulitis. No small bowel obstruction. PEG tube presumably within the stomach. Atherosclerotic calcifications of the aorta. Low-attenuation of the intravascular blood pool, correlate for anemia. IVC filter, incidentally noted. Air within the subcutaneous fat overlying the sacrum with skin thickening, correlate with physical exam for sacral decubitus ulcer. Degenerative changes of the spine. Bilateral pars defects at L5 without anterolisthesis of L5 on S1. IMPRESSION: Extensive airspace consolidations at the lung bases consistent with severe multifocal infiltrate. Associated, large bilateral pleural effusions. Evaluation of the abdominal viscera is markedly suboptimal due to poor CT technique and lack of intravenous contrast. Moderate diverticulosis, without acute diverticulitis. No small bowel obstruction. PEG tube presumably within the stomach. Note, if there is suspicion for colitis consider repeat scan with improved CT technique/intravenous contrast. Mild gallbladder wall thickening without definite evidence of cholelithiasis. Air within the subcutaneous fat overlying the sacrum with skin thickening, correlate with physical exam for sacral decubitus ulcer. Bilateral pars defects at L5. The kidneys are hyperdense, correlate for medical renal disease.. There is prompt uptake within the liver with washout of radiotracer from the liver on subsequent imaging. There is excretion into the biliary ducts. Gallbladder activity is present in a timely fashion indicating patency of the cystic duct. Very scant bowel activity is demonstrated concerning for common bile duct obstruction or sphincter dysfunction. IMPRESSION: No evidence to suggest cholecystitis. Gallbladder activity is present in a timely fashion indicating patency of the cystic duct. Very little radiotracer noted in the small bowel. Correlate with LFTs as a degree of common bile duct obstruction or sphincter dysfunction not excluded. Consider further evaluation with MRCP. (2) Surgical wound dehiscence Assessment & Plan: Patient identified to have a left BKA surgical sutures in place flap looks like it is taken well no signs of infection at this time no signs of seroma hematoma or drainage. Unknown exact length or duration of poten tial prior left BKA and until then recommend leaving sutures in place as it may be too early though it does look well-healed. If able to obtain prior records we will be happy to remove sutures otherwise will need follow-up with primary surgeon furthermore patient identified to have a surgical wound in the sacral area seems he probably potentially had a stage IV sacral decubitus ulcer that had debridement and primary closure. Fortunately. Sutures are still in place and it looks like the inferior aspect may be slowly dehiscing. There is no significant drainage no foul odor no signs of active infection unknown if bone was palpable prior. Can consider removing surgical sutures but again would recommend obtaining prior records of possible prior to doing so. Also recommend following up with primary surgeon as this may need ongoing continued care. Will follow with recommendations and as information is available. Continue current care plan. Wash wounds daily with normal saline. Apply skin protectant Optifoam dressing. Turn every 2 hours. Offload pressure with pillows and air mattress. Nutritional optimization. Worsening leukocytosis. Patient continues to have dehiscence of the prior primarily closed sacral decubitus ulcer. The sutures are was nearly torn out and the wound is opening and saturating with stool with bowel movements now has rectal tube. Unfortunately I see significant concern given dehiscence and therefore sutures were cut at the bedside and wound immediately opened under some tension. Underlying Vicryl sutures identified. There is some backbleeding some granulation tissue but definitely no take or closure of the stage IV sacral decubitus ulcer that was identified. Nonexcisional debridement done with gauze and jorge layer of slough and biofilm was removed wound was cleaned packing dressings applied. No abscess no purulent drainage unlikely etiology of infection. (3) History of left below knee amputation (4) Malnutrition Assessment & Plan: DAILY ESTIMATED NEEDS: Needs based on Wound, critical care, underweight/ 55.5kg 25-33 (25-35 w/ HD) kcals/kg 5940-2357 (2132-1481) total kcals 1.25-2 g protein/kg 69-111 g total protein 25-30 mL/kg 6493-1723 total fluid mLs NUTRITION DIAGNOSIS: * Swallowing difficulty R/T respiratory status as evidenced by pt is trach/vent dep, PEG dep. CURRENT TF: Nepro @ 40ml/hr x24 hrs ENTERAL NUTRITION RECOMMENDATIONS: Nepro @ 40ml/hr x 24 hrs to provide 960ml, 1728kcal, 78g prot, 698ml free water * Maintain current TF * HOB over 30 degrees/ water flush per MD ADDITIONAL RECOMMENDATIONS: * Per SNF: HT=69" PG=418xiq -> rec daily calibrated bedscale wt * Monitor lytes: elev K-> now wnl, phos now low * Wound healing: RANDY BID + Nephrovite 1 tab qdaily * Monitor for bm, last bm 06/19, now 06/24 * W/ HD rec to add Prosource 1 pack qdaily for added 11g pro/day. (5) Anemia (6) KERRI (acute kidney injury) (7) Acute respiratory failure Assessment & Plan: hold on trach change cuff okay vent settings prn abg cxr noted (8) Hyperkalemia (9) Anemia (10) Abnormal laboratory test result (11) Chronic respiratory failure (12) Hyperglycemia (13) Hypothyroidism Azar Mares Jul 15, 2020 14:43
--- NOTE | 2020-07-15 15:42 | Nephrology Progress Note ---
Assessment/Plan Problem List: (1) KERRI (acute kidney injury) (2) Acute respiratory failure (3) Chronic respiratory failure (4) Anemia (5) Hyperkalemia Assessment Acute on chronic renal failure Anemia Respiratory failure acute on chronic Respiratory acidosis and hypoxia Hyperkalemia Plan July 15: Due for dialysis today. Discussed with RN. Check labs tomorrow. July 14: Dialyzed July 12. Next dialysis July 15. Continue per current management. July 13: Dialyzed yesterday. Due for dialysis tomorrow. No labs drawn today. Continue same management. July 12: Patient was dialyzed this morning. Labs reviewed. Discussed with RN. Patient remained stable for discharge from renal standpoint of view and to be continued on dialysis upon transfer. July 11: Last dialyzed July 09. Appears to may need dialysis tomorrow July 12. If discharged to subacute patient will have continued dialysis there. Discussed with manager case and PMD. July 10: Last dialyzed July 09. Labs reviewed. Hyponatremia noted. Continue to monitor electrolytes and renal parameters. Hold off dialysis at this time and monitor renal parameters. Recheck TSH level. Continue per consultants. July 09: Due for dialysis today. Labs reviewed. Medication list reviewed. Continue same treatment plan. July 08: Patient was dialyzed yesterday. Today's labs reviewed. Electrolytes and renal parameters stable. Next dialysis tomorrow. Continue per consultants. July 07: Labs reviewed. Dialysis today. Abnormal electrolytes will be. Discussed with RN. Resolved after dialysis. Continue per consultants July 06: Labs reviewed. Dialyzed July 04. Due for dialysis July 07. Continue per consultants. July 05: Labs reviewed. Dialyzed yesterday. Electrolytes and renal parameters stable. Continue per consultants. Continue dialysis as needed. July 04: Labs reviewed. Due for dialysis today. Continue to monitor electrolytes and hemoglobin hematocrit. Continue per consultants. July 03: Lab reviewed. Will defer dialysis for July 04. Some blood oozing from the catheter site. General surgery to be informed. Electrolytes stable. Continue as is. July 02: Labs reviewed. Due for dialysis tomorrow. Hemoglobin higher. Stable electrolytes. Continue per consultants. July 01: Labs reviewed. Dialyzed yesterday. Patient has a permacath. Continue per consultants. Worsening anemia noted, deferred to cashier receptionist. June 30: Labs reviewed. Due for dialysis today. Patient appears to be needing hemodialysis for sometimes incoming future. Will arrange for placement of a tunneled catheter. Continue per consultants. Anemia management per cashier receptionist. June 29: Labs reviewed. Hemoglobin is higher. Next hemodialysis tomorrow June 30. Continue per consultants. June 28: Labs reviewed. Last dialyzed June 26. Hemoglobin remains low. Defer transfusion and work-up to cashier receptionist. Continue to follow-up renal parameters. June 27: Labs reviewed. Dialyzed yesterday. Hemoglobin low. Due for transfusion. Continue to monitor renal parameters and hemoglobin and hematocrit. June 26: Labs reviewed. Due for dialysis today. Continue per consultants. Continue to monitor liver enzymes. June 25: Labs reviewed. Will dialyze tomorrow. Continue per consultants. Check liver function enzymes. June 24: Dialyzed yesterday. Labs reviewed. Medication list reviewed. Liver enzymes remains elevated. Continue to monitor electrolytes renal parameters and LFTs. Hemodialysis in a.m. if needed. June 23: Patient will be dialyzed today again. Labs reviewed. Serum creatinine higher. Elevated liver enzymes persist. Patient full code. Continue per consultants. June 22: Patient dialyzed yesterday. Labs reviewed. Liver function tests and enzymes are elevated. Continue to monitor renal parameters and LFTs. Continue per consultants. Patient full code. June 21: Patient due for dialysis today. Labs and medication list reviewed. Discussed with RN. Continue to monitor renal parameters. June 20: Patient had an episode of bradycardia last night. Serum creatinine rising. Patient continues to have respiratory acidosis. Discussed with MAX Bond. Will order non tunneled dialysis catheter placement for initiation of dialysis treatment due to acute renal failure. Patient remains full code. I favor comfort care if bioethics consultation is sought and physicians on the team agreeable. June 19: No CHEM panel today. Low hemoglobin as of yesterday's lab results. Anemia management per Dr. Cueva. Continue to monitor renal parameters. June 18: Labs are reviewed. Hemoglobin lower. Creatinine higher. ABG not done yet. Patient full code. Continue per consultants. June 17: Labs reviewed. Hemoglobin low. Creatinine up to 3. Phosphorus levels elevated. Will start Amphojel via GT tube as a phosphorus binder. Monitor renal parameters. Check ABG. Continue per consultants. June 16: Labs reviewed. Serum creatinine mariana to 2.6. Abnormal electrolytes now normalized. Continue to monitor renal parameters and avoid nephrotoxic's. Continue to adjust pulmonary status as possible. June 15: ABG pH of 7.1. 2D echo suggestive of ejection fraction of 50%. Labs reviewed. Serum creatinine mariana. Will hold IV Lasix. Will give Kayexalate for high potassium and 1 amp of sodium bicarb. Albumin IV bolus given. Continue per consultants. Continue to monitor renal parameters. Kidney ultrasound ordered. June 14: As follow Pulmonary evaluation Sparrow catheter Hold IV fluid IV fluid, until 2D echo results available Kayexalate for high potassium IV Protonix 2D echocardiogram Anemia work-up More labs ordered Subjective ROS Limited/Unobtainable: Yes Objective Objective Last 24 Hour Vital Signs Date Time Temp Pulse Resp B/P (MAP) Pulse Ox O2 Delivery O2 Flow Rate FiO2 07/15/20 12:00 96.8 66 21 122/70 (87) 95 07/15/20 12:00 68 07/15/20 12:00 35 07/15/20 12:00 Mechanical Ventilator 07/15/20 11:16 72 23 35 07/15/20 09:00 66 07/15/20 08:00 Mechanical Ventilator 07/15/20 08:00 96.3 66 20 127/74 (91) 100 07/15/20 08:00 45 07/15/20 07:18 67 21 45 07/15/20 04:00 Mechanical Ventilator 07/15/20 04:00 45 07/15/20 04:00 96.8 64 16 133/82 (99) 100 07/15/20 03:30 64 07/15/20 03:30 65 18 45 07/15/20 00:00 Mechanical Ventilator 07/15/20 00:00 96.3 67 21 125/76 (92) 100 07/14/20 23:30 68 07/14/20 23:13 68 23 45 07/14/20 20:00 96.9 65 24 121/75 (90) 100 07/14/20 20:00 45 07/14/20 20:00 Mechanical Ventilator 07/14/20 19:30 64 22 45 07/14/20 19:09 67 07/14/20 16:00 45 07/14/20 16:00 Mechanical Ventilator 07/14/20 16:00 65 07/14/20 16:00 97.2 64 16 120/70 (87) 100 Intake and Output 07/14/20 07/15/20 19:00 07:00 Intake Total 1140 ml 1000 ml Output Total 170 ml 250 ml Balance 970 ml 750 ml Free Water 300 ml 300 ml Tube Feeding 840 ml 700 ml Output Urine Total 100 ml 150 ml Stool Total 70 ml 100 ml Current Medications Medications (Trade) Dose Ordered Sig/Maryjane Route PRN Reason Start Time Stop Time Status Last Admin Dose Admin Acetaminophen (Tylenol) 650 mg Q4H PRN GT Mild Pain (Pain Scale 1-3) 06/18/20 23:00 07/18/20 22:59 07/12/20 13:22 Aluminum Hydroxide (Amphojel) 1,920 mg Q6H GT 06/17/20 10:00 07/17/20 09:59 07/15/20 09:32 Ascorbic Acid (Vitamin C) 500 mg DAILY GT 07/01/20 09:00 07/31/20 08:59 07/15/20 09:32 Chlorhexidine Gluconate (Inés-Hex 2%) 1 applic DAILY@1999 TOPIC 06/21/20 20:00 09/19/20 19:59 07/14/20 20:28 Dextrose (Dextrose 50%) 25 ml Q30M PRN IV Hypoglycemia 06/28/20 18:30 09/26/20 18:29 Dextrose (Dextrose 50%) 50 ml Q30M PRN IV Hypoglycemia 06/28/20 18:30 09/26/20 18:29 Epoetin Bonilla (Epoetin Bonilla(ESRD on dialysis)) 10,000 unit TUE-TUE-TUE SUBQ 07/02/20 21:00 09/16/20 20:59 07/14/20 20:28 Haloperidol Lactate (Haldol) 5 mg Q6H PRN IM Agitation 06/21/20 23:15 08/05/20 23:14 06/25/20 18:17 Insulin Aspart (NovoLOG) EVERY 6 HOURS SUBQ 06/29/20 00:00 09/27/20 00:00 07/14/20 23:13 Lansoprazole (Prevacid) 30 mg Q12HR GT 06/30/20 21:00 07/30/20 20:59 07/15/20 09:32 Levothyroxine Sodium (Synthroid) 88 mcg DAILY@0630 GT 07/03/20 06:30 08/02/20 06:29 07/15/20 05:34 Vancomycin HCl (Vanco pharmacy to dose) 1 ea DAILY PRN MISC Per rx protocol 06/27/20 11:30 07/18/20 23:59 Laboratory Tests 07/14/20 17:49: POC Whole Blood Glucose 150H 07/14/20 23:07: POC Whole Blood Glucose 169H 07/15/20 05:06: POC Whole Blood Glucose 120H 07/15/20 12:03: POC Whole Blood Glucose [Pending] Height (Feet): 5 Height (Inches): 8.00 Weight (Pounds): 143 General Appearance: no apparent distress EENT: other - Trach to vent Cardiovascular: normal rate Respiratory/Chest: decreased breath sounds Abdomen: distended Leonidas Honeycutt MD Jul 15, 2020 15:42
[2020-07-15 16:00] VITALS: BP 121/71
--- NOTE | 2020-07-15 17:18 | NUR ---
INSURANCE [employer]ICALS/REVIEW FAXED (07/13-07/15) [place] P [phone] F [phone]
--- NOTE | 2020-07-15 19:00 | NUR ---
NURSE NOTES: 1L out for dialysis. Dressing change per Dialysis Nurse.
--- NOTE | 2020-07-15 19:19 | NUR ---
NURSE HAND-OFF REPORT: Important Events on Shift:HD in progress Patient Status: stable Diet: GT Nepro @ 42ml/hr with prostat BID Pending Orders: NA Pending Results/Labs:NA Pending MD notification:NA Latest Vital Signs: Temperature 96.9 , Pulse 68 , B/P 121 /71 , Respiratory Rate 21 , O2 SAT 97 , Mechanical Ventilator, O2 Flow Rate 15.0 . Vital Sign Comment: stable EKG Rhythm: Sinus Rhythm Rhythm change?: N MD Notified?: Y -Dr. Mcguire and Dr. Ambika BENDER Response: No New Orders Received Latest Santiago Fall Score: 60 Fall Risk: High Risk Safety Measures: Call light Within Reach, Bed Alarm Zone 2, Side Rails Side Rails x2, Bed position Low and Locked. Fall Precautions: Yellow Socks Yellow Gown Door Sign Patient Fall Education Report given to MAX Comer.
[2020-07-15 20:00] VITALS: BP 134/82
[2020-07-15] MEDS: Dyna-Hex 2% Top Sol 2oz TOPIC SCH (20:14)
--- NOTE | 2020-07-15 20:46 | General Progress Note ---
Subjective ROS Limited/Unobtainable: Yes Allergies: Coded Allergies: No Known Allergies (Unverified , 06/13/20) Objective Last 24 Hour Vital Signs Date Time Temp Pulse Resp B/P (MAP) Pulse Ox O2 Delivery O2 Flow Rate FiO2 07/15/20 20:00 35 07/15/20 19:33 73 23 35 07/15/20 16:00 35 07/15/20 16:00 68 07/15/20 16:00 Mechanical Ventilator 07/15/20 16:00 96.9 70 21 121/71 (88) 97 07/15/20 15:18 69 20 35 07/15/20 12:00 96.8 66 21 122/70 (87) 95 07/15/20 12:00 68 07/15/20 12:00 35 07/15/20 12:00 Mechanical Ventilator 07/15/20 11:16 72 23 35 07/15/20 09:00 66 07/15/20 08:00 Mechanical Ventilator 07/15/20 08:00 96.3 66 20 127/74 (91) 100 07/15/20 08:00 45 07/15/20 07:18 67 21 45 07/15/20 04:00 Mechanical Ventilator 07/15/20 04:00 45 07/15/20 04:00 96.8 64 16 133/82 (99) 100 07/15/20 03:30 64 07/15/20 03:30 65 18 45 07/15/20 00:00 Mechanical Ventilator 07/15/20 00:00 96.3 67 21 125/76 (92) 100 07/14/20 23:30 68 07/14/20 23:13 68 23 45 Intake and Output 07/14/20 07/15/20 19:00 07:00 Intake Total 1140 ml 1070 ml Output Total 170 ml 250 ml Balance 970 ml 820 ml Free Water 300 ml 300 ml Tube Feeding 840 ml 770 ml Output Urine Total 100 ml 150 ml Stool Total 70 ml 100 ml Laboratory Tests 07/14/20 23:07: POC Whole Blood Glucose 169H 07/15/20 05:06: POC Whole Blood Glucose 120H 07/15/20 12:03: POC Whole Blood Glucose [Pending] 07/15/20 17:49: POC Whole Blood Glucose 93 Height (Feet): 5 Height (Inches): 8.00 Weight (Pounds): 143 Assessment/Plan Problem List: (1) Anemia ICD Codes: D64.9 - Anemia, unspecified SNOMED: 232958141 (2) KERRI (acute kidney injury) ICD Codes: N17.9 - Acute kidney failure, unspecified SNOMED: 1350428, 08599685 (3) Acute respiratory failure ICD Codes: J96.00 - Acute respiratory failure, unspecified whether with hypoxia or hypercapnia SNOMED: 93690501 Qualifiers: Qualified Codes: J96.02 - Acute respiratory failure with hypercapnia (4) Hyperkalemia ICD Codes: E87.5 - Hyperkalemia SNOMED: 17312948 (5) Abnormal laboratory test result ICD Codes: R89.9 - Unspecified abnormal finding in specimens from other organs, systems and tissues SNOMED: 938183761 (6) Anemia ICD Codes: D64.9 - Anemia, unspecified SNOMED: 257006129 Status: progressing Assessment/Plan: s/p trach and esrd on hd no fever trach change per pulmonary and dr jones elevated k hd per renal s/p acute mi s/p desaturation is improved Neida Apple MD Jul 15, 2020 20:46
--- NOTE | 2020-07-15 20:50 | NUR ---
NURSE NOTES: Received report from [facility], pt is seen sleeping in bed comfortably with no signs of respiratory distress. Pt has Gtube intact and patent, with cabrera draining dark gerard urine. On rectal tube with draining liquidy stool. HD dialysis on going. Dialysis nurse on bedside. No signs of hypotension noted. No fever noted. Bed in lowest position, Call light within reach. Continue to plan of care.
--- NOTE | 2020-07-15 22:30 | General Progress Note ---
Subjective Allergies: Coded Allergies: No Known Allergies (Unverified , 06/13/20) Subjective above noted stools liquid tolerating TF Objective Last 24 Hour Vital Signs Date Time Temp Pulse Resp B/P (MAP) Pulse Ox O2 Delivery O2 Flow Rate FiO2 07/15/20 20:00 35 07/15/20 20:00 Mechanical Ventilator 07/15/20 20:00 74 07/15/20 20:00 97.2 75 20 134/82 (99) 95 07/15/20 19:33 73 23 35 07/15/20 16:00 35 07/15/20 16:00 68 07/15/20 16:00 Mechanical Ventilator 07/15/20 16:00 96.9 70 21 121/71 (88) 97 07/15/20 15:18 69 20 35 07/15/20 12:00 96.8 66 21 122/70 (87) 95 07/15/20 12:00 68 07/15/20 12:00 35 07/15/20 12:00 Mechanical Ventilator 07/15/20 11:16 72 23 35 07/15/20 09:00 66 07/15/20 08:00 Mechanical Ventilator 07/15/20 08:00 96.3 66 20 127/74 (91) 100 07/15/20 08:00 45 07/15/20 07:18 67 21 45 07/15/20 04:00 Mechanical Ventilator 07/15/20 04:00 45 07/15/20 04:00 96.8 64 16 133/82 (99) 100 07/15/20 03:30 64 07/15/20 03:30 65 18 45 07/15/20 00:00 Mechanical Ventilator 07/15/20 00:00 96.3 67 21 125/76 (92) 100 07/14/20 23:30 68 07/14/20 23:13 68 23 45 Intake and Output 07/14/20 07/15/20 19:00 07:00 Intake Total 1140 ml 1070 ml Output Total 170 ml 250 ml Balance 970 ml 820 ml Free Water 300 ml 300 ml Tube Feeding 840 ml 770 ml Output Urine Total 100 ml 150 ml Stool Total 70 ml 100 ml Laboratory Tests 07/14/20 23:07: POC Whole Blood Glucose 169H 07/15/20 05:06: POC Whole Blood Glucose 120H 07/15/20 12:03: POC Whole Blood Glucose [Pending] 07/15/20 17:49: POC Whole Blood Glucose 93 Height (Feet): 5 Height (Inches): 8.00 Weight (Pounds): 143 Objective Debilitated elderly man NCAT supple Coarse BS RRR abd sofft, flat, (+) GT s/p LLE BKA Assessment/Plan Status: progressing Assessment/Plan: Assessment Abnormal LFT - steadily improving (s/p US, CT, HIDA) h/o Gross hematuria Anemia low platelet count - resolved low albumin Azotemia Recommendations - Unable to have MRCP due to oscar - follow LFT and CBC - no plans for endoscopic GI w/u, per family discussion - TF - increased rate to give more Kcal and protein - Transfuse PRN I will be away until Tuesday. Coverage available. Call if GI issues. Fco Stringer MD Jul 15, 2020 22:30
[2020-07-16] VITALS: BP 136/77
--- NOTE | 2020-07-16 00:29 | NUR ---
NURSE NOTES: Pt is sleeping in bed in comfortable position, not in respiratory distress. No pain. Bed in lowest position, call light within reach. Continue to plan of care.
--- NOTE | 2020-07-16 03:11 | NUR ---
NURSE NOTES: Cleaned pt, stool still liquidy in consistency. Not in distress. Sponge bath given. Bed in lowest position, call light within reach. Continue to plan of care.
[2020-07-16] MEDS: Aluminum Hydroxide Gel Susp 15ml GT SCH ×4 (03:19→22:02)
[2020-07-16 04:00] VITALS: BP_SYST 113; BP_SYST 135; BP_DIAS 69; BP_DIAS 73
[2020-07-16] MEDS: NovoLOG Insulin Flexpen SUBQ SCH ×3 (05:29→17:12)
--- NOTE | 2020-07-16 06:06 | NUR ---
NURSE NOTES: Pt is seen sleeping comfortable in bed. O2 sat- 95%. No signs of respiratory distress.
--- NOTE | 2020-07-16 06:40 | General Progress Note ---
Subjective ROS Limited/Unobtainable: Yes Allergies: Coded Allergies: No Known Allergies (Unverified , 06/13/20) Subjective events noted interval notes reviewed glucose values are stable Item Value Date Time Bedside Blood Glucose 169 mg/dl H 07/16/20 0600 Bedside Blood Glucose 141 mg/dl H 07/16/20 0011 Bedside Blood Glucose 93 mg/dl 07/15/20 1800 Bedside Blood Glucose 134 mg/dl H 07/15/20 1200 Bedside Blood Glucose 120 mg/dl 07/15/20 0531 Bedside Blood Glucose 169 mg/dl H 07/15/20 0000 Objective Last 24 Hour Vital Signs Date Time Temp Pulse Resp B/P (MAP) Pulse Ox O2 Delivery O2 Flow Rate FiO2 07/16/20 04:00 75 07/16/20 04:00 35 07/16/20 04:00 97.7 78 135/73 (93) 07/16/20 04:00 Mechanical Ventilator 07/16/20 03:50 76 21 35 07/16/20 00:00 35 07/16/20 00:00 77 07/16/20 00:00 Mechanical Ventilator 07/16/20 00:00 97.5 77 19 136/77 (96) 94 07/15/20 22:45 74 22 35 07/15/20 20:00 35 07/15/20 20:00 Mechanical Ventilator 07/15/20 20:00 74 07/15/20 20:00 97.2 75 20 134/82 (99) 95 07/15/20 19:33 73 23 35 07/15/20 16:00 35 07/15/20 16:00 68 07/15/20 16:00 Mechanical Ventilator 07/15/20 16:00 96.9 70 21 121/71 (88) 97 07/15/20 15:18 69 20 35 07/15/20 12:00 96.8 66 21 122/70 (87) 95 07/15/20 12:00 68 07/15/20 12:00 35 07/15/20 12:00 Mechanical Ventilator 07/15/20 11:16 72 23 35 07/15/20 09:00 66 07/15/20 08:00 Mechanical Ventilator 07/15/20 08:00 96.3 66 20 127/74 (91) 100 07/15/20 08:00 45 07/15/20 07:18 67 21 45 Intake and Output 07/15/20 07/16/20 19:00 07:00 Intake Total 916 ml 478 ml Output Total 1350 ml 350 ml Balance -434 ml 128 ml Free Water 300 ml 100 ml Tube Feeding 616 ml 378 ml Output Urine Total 150 ml 200 ml Stool Total 200 ml 150 ml Hemodialysis UF 1000 ml Laboratory Tests 07/15/20 12:03: POC Whole Blood Glucose [Pending] 07/15/20 17:49: POC Whole Blood Glucose 93 07/15/20 23:31: POC Whole Blood Glucose 141H 07/16/20 03:10: Random Vancomycin Level 23.2 07/16/20 05:27: POC Whole Blood Glucose 169H Height (Feet): 5 Height (Inches): 8.00 Weight (Pounds): 143 General Appearance: no apparent distress Cardiovascular: normal rate Respiratory/Chest: decreased breath sounds Abdomen: normal bowel sounds Objective Current Medications Medications (Trade) Dose Ordered Sig/Maryjane Route PRN Reason Start Time Stop Time Status Last Admin Dose Admin Acetaminophen (Tylenol) 650 mg Q4H PRN GT Mild Pain (Pain Scale 1-3) 06/18/20 23:00 07/18/20 22:59 07/12/20 13:22 Aluminum Hydroxide (Amphojel) 1,920 mg Q6H GT 06/17/20 10:00 07/17/20 09:59 07/16/20 03:19 Ascorbic Acid (Vitamin C) 500 mg DAILY GT 07/01/20 09:00 07/31/20 08:59 07/15/20 09:32 Chlorhexidine Gluconate (Inés-Hex 2%) 1 applic DAILY@1999 TOPIC 06/21/20 20:00 09/19/20 19:59 07/15/20 20:14 Dextrose (Dextrose 50%) 25 ml Q30M PRN IV Hypoglycemia 06/28/20 18:30 09/26/20 18:29 Dextrose (Dextrose 50%) 50 ml Q30M PRN IV Hypoglycemia 06/28/20 18:30 09/26/20 18:29 Epoetin Bonilla (Epoetin Bonilla(ESRD on dialysis)) 10,000 unit TUE-TUE-TUE SUBQ 07/02/20 21:00 09/16/20 20:59 07/14/20 20:28 Haloperidol Lactate (Haldol) 5 mg Q6H PRN IM Agitation 06/21/20 23:15 08/05/20 23:14 06/25/20 18:17 Insulin Aspart (NovoLOG) EVERY 6 HOURS SUBQ 06/29/20 00:00 09/27/20 00:00 07/16/20 05:29 Lansoprazole (Prevacid) 30 mg Q12HR GT 06/30/20 21:00 07/30/20 20:59 07/15/20 20:14 Levothyroxine Sodium (Synthroid) 88 mcg DAILY@0630 GT 07/03/20 06:30 08/02/20 06:29 07/16/20 05:37 Vancomycin HCl (Vanco pharmacy to dose) 1 ea DAILY PRN MISC Per rx protocol 06/27/20 11:30 07/18/20 23:59 Assessment/Plan Problem List: (1) History of left below knee amputation ICD Codes: Z89.512 - Acquired absence of left leg below knee SNOMED: 732154352, 421212866325555 (2) Surgical wound dehiscence ICD Codes: T81.31XA - Disruption of external operation (surgical) wound, not elsewhere classified, initial encounter SNOMED: 12929797 (3) Hyperkalemia ICD Codes: E87.5 - Hyperkalemia SNOMED: 03870750 (4) Acute respiratory failure ICD Codes: J96.00 - Acute respiratory failure, unspecified whether with hypoxia or hypercapnia SNOMED: 14625685 Qualifiers: Qualified Codes: J96.02 - Acute respiratory failure with hypercapnia (5) Hypothyroidism ICD Codes: E03.9 - Hypothyroidism, unspecified SNOMED: 34503747 (6) Hyperglycemia ICD Codes: R73.9 - Hyperglycemia, unspecified SNOMED: 18095679 Status: progressing Assessment/Plan: continue Levothyroxine 88 mcg daily - TSH improving repeat thyroid function in 1-2 weeks continue glucose monitoring Davy Ramos MD Jul 16, 2020 06:40
--- NOTE | 2020-07-16 06:51 | General Progress Note ---
Subjective ROS Limited/Unobtainable: No Allergies: Coded Allergies: No Known Allergies (Unverified , 06/13/20) Objective Last 24 Hour Vital Signs Date Time Temp Pulse Resp B/P (MAP) Pulse Ox O2 Delivery O2 Flow Rate FiO2 07/16/20 04:00 75 07/16/20 04:00 35 07/16/20 04:00 97.7 78 135/73 (93) 07/16/20 04:00 Mechanical Ventilator 07/16/20 03:50 76 21 35 07/16/20 00:00 35 07/16/20 00:00 77 07/16/20 00:00 Mechanical Ventilator 07/16/20 00:00 97.5 77 19 136/77 (96) 94 07/15/20 22:45 74 22 35 07/15/20 20:00 35 07/15/20 20:00 Mechanical Ventilator 07/15/20 20:00 74 07/15/20 20:00 97.2 75 20 134/82 (99) 95 07/15/20 19:33 73 23 35 07/15/20 16:00 35 07/15/20 16:00 68 07/15/20 16:00 Mechanical Ventilator 07/15/20 16:00 96.9 70 21 121/71 (88) 97 07/15/20 15:18 69 20 35 07/15/20 12:00 96.8 66 21 122/70 (87) 95 07/15/20 12:00 68 07/15/20 12:00 35 07/15/20 12:00 Mechanical Ventilator 07/15/20 11:16 72 23 35 07/15/20 09:00 66 07/15/20 08:00 Mechanical Ventilator 07/15/20 08:00 96.3 66 20 127/74 (91) 100 07/15/20 08:00 45 07/15/20 07:18 67 21 45 Intake and Output 07/15/20 07/16/20 19:00 07:00 Intake Total 916 ml 478 ml Output Total 1350 ml 350 ml Balance -434 ml 128 ml Free Water 300 ml 100 ml Tube Feeding 616 ml 378 ml Output Urine Total 150 ml 200 ml Stool Total 200 ml 150 ml Hemodialysis UF 1000 ml Laboratory Tests 07/15/20 12:03: POC Whole Blood Glucose [Pending] 07/15/20 17:49: POC Whole Blood Glucose 93 07/15/20 23:31: POC Whole Blood Glucose 141H 07/16/20 03:10: Random Vancomycin Level 23.2 07/16/20 05:27: POC Whole Blood Glucose 169H Height (Feet): 5 Height (Inches): 8.00 Weight (Pounds): 143 General Appearance: no apparent distress EENT: normal ENT inspection Neck: supple Cardiovascular: normal rate Respiratory/Chest: decreased breath sounds Abdomen: hypoactive bowel sounds Extremities: non-tender Assessment/Plan Status: progressing Assessment/Plan: Assessment Abnormal LFT - steadily improving (s/p US, CT, HIDA) h/o Gross hematuria Anemia low platelet count - resolved low albumin Azotemia Recommendations - Unable to have MRCP due to oscar - follow LFT and CBC - no plans for endoscopic GI w/u, per family discussion - TF - increased rate to give more Kcal and protein - Transfuse Stan Vo MD Jul 16, 2020 06:51
--- NOTE | 2020-07-16 07:05 | NUR ---
RESPIRATORY NOTE: PT RECEIVED STABLE ON CMV: AC/VC 16, 500, 35%, +5. ALARMS ARE ON AND AUDIBLE. AIRWAY IS MIDLINE, SECURE AND PATENT. VENT CIRCUIT IS SECURE AND OUT OF THE WAY. NO S/S OF RESPIRATORY DISTRESS NOTED AT THIS TIME. WILL CONTINUE TO CLOSELY MONITOR.
--- NOTE | 2020-07-16 07:10 | NUR ---
NURSE HAND-OFF REPORT: Important Events on Shift: Stable, HD- 1L /, D/C planning Patient Status: Stable Diet: GTF Pending Orders: None Pending Results/Labs: None Pending MD notification: NOne Latest Vital Signs: Temperature 97.7 , Pulse 78 , B/P 135 /73 , Respiratory Rate 21 , O2 SAT 94 , Mechanical Ventilator, O2 Flow Rate 15.0 . Vital Sign Comment: WNL EKG Rhythm: Sinus Rhythm Rhythm change?: N MD Notified?: Y -Dr. Mcguire and Dr. Ambika BENDER Response: No New Orders Received Latest Santiago Fall Score: 80 Fall Risk: High Risk Safety Measures: Call light Within Reach, Bed Alarm Zone 2, Side Rails Side Rails x2, Bed position Low and Locked. Fall Precautions: Yellow Socks Yellow Gown Door Sign Patient Fall Education Report given to [Varun RN].
--- NOTE | 2020-07-16 07:25 | NUR ---
NURSE NOTES: Received report from MAX Kimble. Patient is resting in bed, in stable condition. No s/sx of SOB, breathing is even and unlabored, patient is on vent settings as ordered. Denies any presence of pain or discomfort at this time. Per report, patient had dialysis yesterday, 1 liter UHD output. Per night nurse aware of 07/14/2020 ABG, patient tolerating current vent settings. Awaiting bed placement to SNF. Bed is in lowest position, brakes engaged. Call light is kept within easy reach. Will continue to monitor patient.
[2020-07-16 08:00] VITALS: BP 129/73
[2020-07-16] MEDS: Ascorbic Acid 500mg tab GT SCH (08:17)
--- NOTE | 2020-07-16 09:21 | Cardiac Electrophysiology PN ---
Assessment/Plan Assessment/Plan 1. Vent-dependent respirator failure. S/P tracheostomy. On 50% Fio2 Chest x-ray extensive bilateral pneumonia or ARDS. Off isolation EF 50%. Ruled out for [place] On iv Abx. S/P Trach change 2. Sinus Tachycardia, likely due to respiratory failure and sepsis 3. Right femoral vein DVT. S/P IVC filter 06/18 4. Dysphagia, status post PEG placement. 5. Renal failure. S/P Right IJ Iron and on HD by Dr. Honeycutt. Last HD yesterday 6. Severe anemia, S/P multiple PRBCs for hematuria 7. High LFTs, s/p CT abdomen and pelvis and HIDA FU Dr. Stringer 8. Transient bradycardia, resolved DW RN Subjective Subjective On the Vent off isolation. On 45% Fio2 and PEEP 5. S/P IVC filter S/P Right IJ Iron and first HD 06/21/20 Had [employer] as HR dropped to 30 at 4 am 06/25/20 Got PRBC 06/27, 06/28,07/07,07/11 and 07/15 S/P trach change at bedside Had 1 liter HD yesterday Objective Last 24 Hour Vital Signs Date Time Temp Pulse Resp B/P (MAP) Pulse Ox O2 Delivery O2 Flow Rate FiO2 07/16/20 08:00 97.5 74 25 129/73 (91) 96 07/16/20 08:00 35 07/16/20 08:00 Mechanical Ventilator 07/16/20 07:05 74 25 35 07/16/20 04:00 75 07/16/20 04:00 35 07/16/20 04:00 97.7 78 135/73 (93) 07/16/20 04:00 Mechanical Ventilator 07/16/20 03:50 76 21 35 07/16/20 00:00 35 07/16/20 00:00 77 07/16/20 00:00 Mechanical Ventilator 07/16/20 00:00 97.5 77 19 136/77 (96) 94 07/15/20 22:45 74 22 35 07/15/20 20:00 35 07/15/20 20:00 Mechanical Ventilator 07/15/20 20:00 74 07/15/20 20:00 97.2 75 20 134/82 (99) 95 07/15/20 19:33 73 23 35 07/15/20 16:00 35 07/15/20 16:00 68 07/15/20 16:00 Mechanical Ventilator 07/15/20 16:00 96.9 70 21 121/71 (88) 97 07/15/20 15:18 69 20 35 07/15/20 12:00 96.8 66 21 122/70 (87) 95 07/15/20 12:00 68 07/15/20 12:00 35 07/15/20 12:00 Mechanical Ventilator 07/15/20 11:16 72 23 35 Intake and Output 07/15/20 07/16/20 19:00 07:00 Intake Total 916 ml 478 ml Output Total 1350 ml 350 ml Balance -434 ml 128 ml Free Water 300 ml 100 ml Tube Feeding 616 ml 378 ml Output Urine Total 150 ml 200 ml Stool Total 200 ml 150 ml Hemodialysis UF 1000 ml Laboratory Tests Test 07/15/20 12:03 07/15/20 17:49 07/15/20 23:31 07/16/20 03:10 POC Whole Blood Glucose Pending 93 MG/DL (74-106) 141 MG/DL (74-106) H Random Vancomycin Level 23.2 ug/mL Test 07/16/20 05:27 POC Whole Blood Glucose 169 MG/DL (74-106) H Objective HEAD AND NECK: Status post tracheostomy. Right IJ Iron in place LUNGS: Coarse rhonchi and basilar rales. CARDIOVASCULAR: Irregular S1 and S2 with no gallop. ABDOMEN: Soft. Status post G-tube. EXTREMITIES: No pitting edema. Lance Mcguire MD Jul 16, 2020 09:21
--- NOTE | 2020-07-16 10:29 | NUR ---
NURSE NOTES: Dr. Garcia seen and examined patient at bedside, per Dr. Garcia ordered STAT ABG. Order entered, noted, and carried out. Will continue to monitor patient.
--- NOTE | 2020-07-16 11:15 | Infectious Diseases Prog Note ---
Assessment/Plan Assessment/Plan IMPRESSION: Pneumonia with Pseudomonas & Providencia treated Hypothermia COVID19 X 2: negative Ventilator-dependent respiratory failure, Diabetes mellitus type 2, Hypertension, History of left BKA, Hypertension, anemia, Major depression, Pressure ulcer, Elevated transaminase, Hyperkalemia. Anemia R leg DVT s/p IVC filter Sacral osteomyelitis Severe anemia Acute renal failure ESRD Hypercapnic respiratory failure Hematuria Thrombocytopenia Diverticulosis Diarrhea, C. difficile negative RECOMMENDATION: Continue Vancomycin until 07/18 Subjective ROS Limited/Unobtainable: Yes Constitutional: Denies: fever Allergies: Coded Allergies: No Known Allergies (Unverified , 06/13/20) Objective Last 24 Hour Vital Signs Date Time Temp Pulse Resp B/P (MAP) Pulse Ox O2 Delivery O2 Flow Rate FiO2 07/16/20 08:00 97.5 74 25 129/73 (91) 96 07/16/20 08:00 35 07/16/20 08:00 74 07/16/20 08:00 Mechanical Ventilator 07/16/20 07:05 74 25 35 07/16/20 04:00 75 07/16/20 04:00 35 07/16/20 04:00 97.7 78 135/73 (93) 07/16/20 04:00 Mechanical Ventilator 07/16/20 03:50 76 21 35 07/16/20 00:00 35 07/16/20 00:00 77 07/16/20 00:00 Mechanical Ventilator 07/16/20 00:00 97.5 77 19 136/77 (96) 94 07/15/20 22:45 74 22 35 07/15/20 20:00 35 07/15/20 20:00 Mechanical Ventilator 07/15/20 20:00 74 07/15/20 20:00 97.2 75 20 134/82 (99) 95 07/15/20 19:33 73 23 35 07/15/20 16:00 35 07/15/20 16:00 68 07/15/20 16:00 Mechanical Ventilator 07/15/20 16:00 96.9 70 21 121/71 (88) 97 07/15/20 15:18 69 20 35 07/15/20 12:00 96.8 66 21 122/70 (87) 95 07/15/20 12:00 68 07/15/20 12:00 35 07/15/20 12:00 Mechanical Ventilator 07/15/20 11:16 72 23 35 Height (Feet): 5 Height (Inches): 8.00 Weight (Pounds): 143 General Appearance: no acute distress HEENT: status post trach Respiratory/Chest: lungs clear, other - on ventilator Cardiovascular: normal rate, other - Permacath Abdomen: soft, non tender, other - GT & rectal tube Extremities: other - edema, left BKA Skin: ulcers, other - sacral Neurologic/Psychiatric: alert, responsive Laboratory Tests Test 07/15/20 12:03 07/15/20 17:49 07/15/20 23:31 07/16/20 03:10 POC Whole Blood Glucose Pending 93 MG/DL (74-106) 141 MG/DL (74-106) H Random Vancomycin Level 23.2 ug/mL Test 07/16/20 05:27 07/16/20 10:40 POC Whole Blood Glucose 169 MG/DL (74-106) H Arterial Blood pH 7.315 (7.350-7.450) Arterial Blood Partial Pressure CO2 63.0 mmHg (35.0-45.0) *H Arterial Blood Partial Pressure O2 129.3 mmHg (75.0-100.0) H Arterial Blood HCO3 31.4 mmol/L (22.0-26.0) H Arterial Blood Oxygen Saturation 98.4 % (95-100) Arterial Blood Base Excess 4.3 (-2-2) H Joe Test Positive Current Medications Medications (Trade) Dose Ordered Sig/Maryjane Route PRN Reason Start Time Stop Time Status Last Admin Dose Admin Acetaminophen (Tylenol) 650 mg Q4H PRN GT Mild Pain (Pain Scale 1-3) 06/18/20 23:00 07/18/20 22:59 07/12/20 13:22 Aluminum Hydroxide (Amphojel) 1,920 mg Q6H GT 06/17/20 10:00 07/17/20 09:59 07/16/20 09:06 Ascorbic Acid (Vitamin C) 500 mg DAILY GT 07/01/20 09:00 07/31/20 08:59 07/16/20 08:17 Chlorhexidine Gluconate (Inés-Hex 2%) 1 applic DAILY@2000 TOPIC 06/21/20 20:00 09/19/20 19:59 07/15/20 20:14 Dextrose (Dextrose 50%) 25 ml Q30M PRN IV Hypoglycemia 06/28/20 18:30 09/26/20 18:29 Dextrose (Dextrose 50%) 50 ml Q30M PRN IV Hypoglycemia 06/28/20 18:30 09/26/20 18:29 Epoetin Bonilla (Epoetin Bonilla(ESRD on dialysis)) 10,000 unit TUE-TUE-TUE SUBQ 07/02/20 21:00 09/16/20 20:59 07/14/20 20:28 Haloperidol Lactate (Haldol) 5 mg Q6H PRN IM Agitation 06/21/20 23:15 08/05/20 23:14 06/25/20 18:17 Insulin Aspart (NovoLOG) EVERY 6 HOURS SUBQ 06/29/20 00:00 09/27/20 00:00 07/16/20 05:29 Lansoprazole (Prevacid) 30 mg Q12HR GT 06/30/20 21:00 07/30/20 20:59 07/16/20 08:17 Levothyroxine Sodium (Synthroid) 88 mcg DAILY@0630 GT 07/03/20 06:30 08/02/20 06:29 07/16/20 05:37 Vancomycin HCl (Vanco pharmacy to dose) 1 ea DAILY PRN MISC Per rx protocol 06/27/20 11:30 07/18/20 23:59 Paul Amador MD Jul 16, 2020 11:15
--- NOTE | 2020-07-16 11:51 | Pulmonology Progress Note ---
Subjective ROS Limited/Unobtainable: Yes Interval Events: s/p trach change; abg better today Constitutional: Denies: fever HEENT: Repors: no symptoms Respiratory: Reports: no symptoms Cardiovascular: Reports: no symptoms Gastrointestinal/Abdominal: Reports: diarrhea Genitourinary: Reports: no symptoms Psychiatric: Reports: other - off of restraint Allergies: Coded Allergies: No Known Allergies (Unverified , 06/13/20) All Systems: reviewed and negative except above Objective Last 24 Hour Vital Signs Date Time Temp Pulse Resp B/P (MAP) Pulse Ox O2 Delivery O2 Flow Rate FiO2 07/16/20 08:00 97.5 74 25 129/73 (91) 96 07/16/20 08:00 35 07/16/20 08:00 74 07/16/20 08:00 Mechanical Ventilator 07/16/20 07:05 74 25 35 07/16/20 04:00 75 07/16/20 04:00 35 07/16/20 04:00 97.7 78 135/73 (93) 07/16/20 04:00 Mechanical Ventilator 07/16/20 03:50 76 21 35 07/16/20 00:00 35 07/16/20 00:00 77 07/16/20 00:00 Mechanical Ventilator 07/16/20 00:00 97.5 77 19 136/77 (96) 94 07/15/20 22:45 74 22 35 07/15/20 20:00 35 07/15/20 20:00 Mechanical Ventilator 07/15/20 20:00 74 07/15/20 20:00 97.2 75 20 134/82 (99) 95 07/15/20 19:33 73 23 35 07/15/20 16:00 35 07/15/20 16:00 68 07/15/20 16:00 Mechanical Ventilator 07/15/20 16:00 96.9 70 21 121/71 (88) 97 07/15/20 15:18 69 20 35 07/15/20 12:00 96.8 66 21 122/70 (87) 95 07/15/20 12:00 68 07/15/20 12:00 35 07/15/20 12:00 Mechanical Ventilator Intake and Output 07/15/20 07/16/20 19:00 07:00 Intake Total 916 ml 478 ml Output Total 1350 ml 350 ml Balance -434 ml 128 ml Free Water 300 ml 100 ml Tube Feeding 616 ml 378 ml Output Urine Total 150 ml 200 ml Stool Total 200 ml 150 ml Hemodialysis UF 1000 ml General Appearance: WD/WN, no acute distress HEENT: status post trach Respiratory: chest wall non-tender, decreased breath sounds Cardiovascular: normal rate Abdomen: normal bowel sounds Genitourinary: other - [place] Extremities: no cyanosis, other - left lower leg amputee; b/l 1+ pitting edema Laboratory Tests 07/15/20 12:03: POC Whole Blood Glucose [Pending] 07/15/20 17:49: POC Whole Blood Glucose 93 07/15/20 23:31: POC Whole Blood Glucose 141H 07/16/20 03:10: Random Vancomycin Level 23.2 07/16/20 05:27: POC Whole Blood Glucose 169H 07/16/20 10:40: Arterial Blood pH 7.315L, Arterial Blood Partial Pressure CO2 63.0*H, Arterial Blood Partial Pressure O2 129.3H, Arterial Blood HCO3 31.4H, Arterial Blood Oxygen Saturation 98.4, Arterial Blood Base Excess 4.3H, Joe Test Positive Current Medications Medications (Trade) Dose Ordered Sig/Maryjane Route PRN Reason Start Time Stop Time Status Last Admin Dose Admin Acetaminophen (Tylenol) 650 mg Q4H PRN GT Mild Pain (Pain Scale 1-3) 06/18/20 23:00 07/18/20 22:59 07/12/20 13:22 Aluminum Hydroxide (Amphojel) 1,920 mg Q6H GT 06/17/20 10:00 07/17/20 09:59 07/16/20 09:06 Ascorbic Acid (Vitamin C) 500 mg DAILY GT 07/01/20 09:00 07/31/20 08:59 07/16/20 08:17 Chlorhexidine Gluconate (Inés-Hex 2%) 1 applic DAILY@1999 TOPIC 06/21/20 20:00 09/19/20 19:59 07/15/20 20:14 Dextrose (Dextrose 50%) 25 ml Q30M PRN IV Hypoglycemia 06/28/20 18:30 09/26/20 18:29 Dextrose (Dextrose 50%) 50 ml Q30M PRN IV Hypoglycemia 06/28/20 18:30 09/26/20 18:29 Epoetin Bonilla (Epoetin Bonilla(ESRD on dialysis)) 10,000 unit TUE-TUE-TUE SUBQ 07/02/20 21:00 09/16/20 20:59 07/14/20 20:28 Haloperidol Lactate (Haldol) 5 mg Q6H PRN IM Agitation 06/21/20 23:15 08/05/20 23:14 06/25/20 18:17 Insulin Aspart (NovoLOG) EVERY 6 HOURS SUBQ 06/29/20 00:00 09/27/20 00:00 07/16/20 05:29 Lansoprazole (Prevacid) 30 mg Q12HR GT 06/30/20 21:00 07/30/20 20:59 07/16/20 08:17 Levothyroxine Sodium (Synthroid) 88 mcg DAILY@0630 GT 07/03/20 06:30 08/02/20 06:29 07/16/20 05:37 Vancomycin HCl (Vanco pharmacy to dose) 1 ea DAILY PRN MISC Per rx protocol 06/27/20 11:30 07/18/20 23:59 Assessment/Plan Problems: (1) Acute respiratory failure Assessment/Plan IMPRESSION: 1. Chronic respiratory failure. 2. Hypoxemia. - AC 18, TV 500, FiO2 40, PEEP 5 3. Respiratory acidosis. 4. Anemia. 5. Leukocytosis. 6. DVT 7. S/p code blue 06/19/20 DISCUSSION: The patient's x-ray is markedly abnormal with bilateral infiltrates. suspect he has pulmonary fibrosis. Latest CXR is unchanged to slightly improved COVID 19 pcr and antigen both negative No anticoagulation for DVT due to anemia S/p IVC filter placement Continue assist-control mechanical ventilation; currently FiO2 40%; SaO2 100%, broad-spectrum antibiotics. Transfusion as needed. PEEP 5 S/p HD Will continue to decrease FiO2 as tolerated S/p permacath dc planning- awaiting response from insurance The time spent for this case was approximately 31 minutes Sylvester Garcia MD Jul 16, 2020 11:51
[2020-07-16 12:00] VITALS: BP 129/79
--- NOTE | 2020-07-16 12:30 | NUR ---
NURSE NOTES: Spoke with Dr. Garcia via telephone, made MD aware of ABG ordered today, pCO2 63, with Vent settings of AC 16, TV 500, FiO2 35%, PEEP 5. Dr. Garcia acknowledged and gave no new orders at this time. Will continue to monitor patient.
--- NOTE | 2020-07-16 13:07 | NUR ---
CASE MANAGEMENT:REVIEW SI;RESP FAILURE TRACH/VENT DEPENDENT,SEPSIS, RENAL FAILURE. 97.5 78 25 135/73 96% TRACH/VENT FIO2 35% ABG ~ pH 7.315 pCO2 63.0 pO2 129.3 HCO3 31.4 IS;SYNTHROID GT VIT C GT EPOETIN ALEXX SQ M/W/F PREVACID GT Q12 KALYN STATUS DCP;TO MIGEL CONV PENDING SHAUNA
--- NOTE | 2020-07-16 14:30 | Nephrology Progress Note ---
Assessment/Plan Problem List: (1) KERRI (acute kidney injury) (2) Acute respiratory failure (3) Chronic respiratory failure (4) Anemia (5) Hyperkalemia Assessment Acute on chronic renal failure Anemia Respiratory failure acute on chronic Respiratory acidosis and hypoxia Hyperkalemia Plan July 16: Dialyzed yesterday. Will check lab tomorrow. Dialysis as needed. Continue per consultants. July 15: Due for dialysis today. Discussed with RN. Check labs tomorrow. July 14: Dialyzed July 12. Next dialysis July 15. Continue per current management. July 13: Dialyzed yesterday. Due for dialysis tomorrow. No labs drawn today. Continue same management. July 12: Patient was dialyzed this morning. Labs reviewed. Discussed with RN. Patient remained stable for discharge from renal standpoint of view and to be continued on dialysis upon transfer. July 11: Last dialyzed July 09. Appears to may need dialysis tomorrow July 12. If discharged to subacute patient will have continued dialysis there. Discussed with case worker and PMD. July 10: Last dialyzed July 09. Labs reviewed. Hyponatremia noted. Continue to monitor electrolytes and renal parameters. Hold off dialysis at this time and monitor renal parameters. Recheck TSH level. Continue per consultants. July 09: Due for dialysis today. Labs reviewed. Medication list reviewed. Continue same treatment plan. July 08: Patient was dialyzed yesterday. Today's labs reviewed. Electrolytes and renal parameters stable. Next dialysis tomorrow. Continue per consultants. July 07: Labs reviewed. Dialysis today. Abnormal electrolytes will be. Discussed with RN. Resolved after dialysis. Continue per consultants July 06: Labs reviewed. Dialyzed July 04. Due for dialysis July 07. Continue per consultants. July 05: Labs reviewed. Dialyzed yesterday. Electrolytes and renal parameters stable. Continue per consultants. Continue dialysis as needed. July 04: Labs reviewed. Due for dialysis today. Continue to monitor electrolytes and hemoglobin hematocrit. Continue per consultants. July 03: Lab reviewed. Will defer dialysis for July 04. Some blood oozing from the catheter site. General surgery to be informed. Electrolytes stable. Continue as is. July 02: Labs reviewed. Due for dialysis tomorrow. Hemoglobin higher. Stable electrolytes. Continue per consultants. July 01: Labs reviewed. Dialyzed yesterday. Patient has a permacath. Continue per consultants. Worsening anemia noted, deferred to administrative services manager. June 30: Labs reviewed. Due for dialysis today. Patient appears to be needing hemodialysis for sometimes incoming future. Will arrange for placement of a tunneled catheter. Continue per consultants. Anemia management per administrative services manager. June 29: Labs reviewed. Hemoglobin is higher. Next hemodialysis tomorrow June 30. Continue per consultants. June 28: Labs reviewed. Last dialyzed June 26. Hemoglobin remains low. Defer transfusion and work-up to administrative services manager. Continue to follow-up renal parameters. June 27: Labs reviewed. Dialyzed yesterday. Hemoglobin low. Due for transfusion. Continue to monitor renal parameters and hemoglobin and hematocrit. June 26: Labs reviewed. Due for dialysis today. Continue per consultants. Continue to monitor liver enzymes. June 25: Labs reviewed. Will dialyze tomorrow. Continue per consultants. Check liver function enzymes. June 24: Dialyzed yesterday. Labs reviewed. Medication list reviewed. Liver enzymes remains elevated. Continue to monitor electrolytes renal parameters and LFTs. Hemodialysis in a.m. if needed. June 23: Patient will be dialyzed today again. Labs reviewed. Serum creatinine higher. Elevated liver enzymes persist. Patient full code. Continue per consultants. June 22: Patient dialyzed yesterday. Labs reviewed. Liver function tests and enzymes are elevated. Continue to monitor renal parameters and LFTs. Continue per consultants. Patient full code. June 21: Patient due for dialysis today. Labs and medication list reviewed. Discussed with RN. Continue to monitor renal parameters. June 20: Patient had an episode of bradycardia last night. Serum creatinine rising. Patient continues to have respiratory acidosis. Discussed with MAX Bond. Will order non tunneled dialysis catheter placement for initiation of dialysis treatment due to acute renal failure. Patient remains full code. I favor comfort care if bioethics consultation is sought and physicians on the team agreeable. June 19: No CHEM panel today. Low hemoglobin as of yesterday's lab results. Anemia management per Dr. Cueva. Continue to monitor renal parameters. June 18: Labs are reviewed. Hemoglobin lower. Creatinine higher. ABG not done yet. Patient full code. Continue per consultants. June 17: Labs reviewed. Hemoglobin low. Creatinine up to 3. Phosphorus levels elevated. Will start Amphojel via GT tube as a phosphorus binder. Monitor renal parameters. Check ABG. Continue per consultants. June 16: Labs reviewed. Serum creatinine mariana to 2.6. Abnormal electrolytes now normalized. Continue to monitor renal parameters and avoid nephrotoxic's. Continue to adjust pulmonary status as possible. June 15: ABG pH of 7.1. 2D echo suggestive of ejection fraction of 50%. Labs reviewed. Serum creatinine mariana. Will hold IV Lasix. Will give Kayexalate for high potassium and 1 amp of sodium bicarb. Albumin IV bolus given. Continue per consultants. Continue to monitor renal parameters. Kidney ultrasound ordered. June 14: As follow Pulmonary evaluation Sparrow catheter Hold IV fluid IV fluid, until 2D echo results available Kayexalate for high potassium IV Protonix 2D echocardiogram Anemia work-up More labs ordered Subjective ROS Limited/Unobtainable: Yes Objective Objective Last 24 Hour Vital Signs Date Time Temp Pulse Resp B/P (MAP) Pulse Ox O2 Delivery O2 Flow Rate FiO2 07/16/20 12:56 80 23 35 07/16/20 12:00 35 07/16/20 12:00 97.0 74 25 129/79 (96) 94 07/16/20 12:00 71 07/16/20 12:00 Mechanical Ventilator 07/16/20 10:50 74 24 30 07/16/20 10:39 75 23 35 07/16/20 08:00 97.5 74 25 129/73 (91) 96 07/16/20 08:00 35 07/16/20 08:00 74 07/16/20 08:00 Mechanical Ventilator 07/16/20 07:05 74 25 35 07/16/20 04:00 75 07/16/20 04:00 35 07/16/20 04:00 97.7 78 135/73 (93) 07/16/20 04:00 Mechanical Ventilator 07/16/20 03:50 76 21 35 07/16/20 00:00 35 07/16/20 00:00 77 07/16/20 00:00 Mechanical Ventilator 07/16/20 00:00 97.5 77 19 136/77 (96) 94 07/15/20 22:45 74 22 35 07/15/20 20:00 35 07/15/20 20:00 Mechanical Ventilator 07/15/20 20:00 74 07/15/20 20:00 97.2 75 20 134/82 (99) 95 07/15/20 19:33 73 23 35 07/15/20 16:00 35 07/15/20 16:00 68 07/15/20 16:00 Mechanical Ventilator 07/15/20 16:00 96.9 70 21 121/71 (88) 97 07/15/20 15:18 69 20 35 Intake and Output 07/15/20 07/16/20 18:59 06:59 Intake Total 944 ml 520 ml Output Total 1000 ml 700 ml Balance -56 ml -180 ml Free Water 300 ml 100 ml Tube Feeding 644 ml 420 ml Output Urine Total 350 ml Stool Total 350 ml Hemodialysis UF 1000 ml Current Medications Medications (Trade) Dose Ordered Sig/Maryjane Route PRN Reason Start Time Stop Time Status Last Admin Dose Admin Acetaminophen (Tylenol) 650 mg Q4H PRN GT Mild Pain (Pain Scale 1-3) 06/18/20 23:00 07/18/20 22:59 07/12/20 13:22 Aluminum Hydroxide (Amphojel) 1,920 mg Q6H GT 06/17/20 10:00 07/31/20 09:59 07/16/20 09:06 Ascorbic Acid (Vitamin C) 500 mg DAILY GT 07/01/20 09:00 07/31/20 08:59 07/16/20 08:17 Chlorhexidine Gluconate (Inés-Hex 2%) 1 applic DAILY@1999 TOPIC 06/21/20 20:00 09/19/20 19:59 07/15/20 20:14 Dextrose (Dextrose 50%) 25 ml Q30M PRN IV Hypoglycemia 06/28/20 18:30 09/26/20 18:29 Dextrose (Dextrose 50%) 50 ml Q30M PRN IV Hypoglycemia 06/28/20 18:30 09/26/20 18:29 Epoetin Bonilla (Epoetin Bonilla(ESRD on dialysis)) 10,000 unit TUE-TUE-TUE SUBQ 07/02/20 21:00 09/16/20 20:59 07/14/20 20:28 Haloperidol Lactate (Haldol) 5 mg Q6H PRN IM Agitation 06/21/20 23:15 08/05/20 23:14 06/25/20 18:17 Insulin Aspart (NovoLOG) EVERY 6 HOURS SUBQ 06/29/20 00:00 09/27/20 00:00 07/16/20 12:21 Lansoprazole (Prevacid) 30 mg Q12HR GT 06/30/20 21:00 07/30/20 20:59 07/16/20 08:17 Levothyroxine Sodium (Synthroid) 88 mcg DAILY@0630 GT 07/03/20 06:30 08/02/20 06:29 07/16/20 05:37 [facility] 1 ea DAILY PRN MISC Per rx protocol 06/27/20 11:30 07/18/20 23:59 Laboratory Tests 07/15/20 17:49: POC Whole Blood Glucose 93 07/15/20 23:31: POC Whole Blood Glucose 141H 07/16/20 03:10: Random Vancomycin Level 23.2 07/16/20 05:27: POC Whole Blood Glucose 169H 07/16/20 10:40: Arterial Blood pH 7.315L, Arterial Blood Partial Pressure CO2 63.0*H, Arterial Blood Partial Pressure O2 129.3H, Arterial Blood HCO3 31.4H, Arterial Blood Oxygen Saturation 98.4, Arterial Blood Base Excess 4.3H, Joe Test Positive 07/16/20 12:17: POC Whole Blood Glucose 171H Height (Feet): 5 Height (Inches): 8.00 Weight (Pounds): 143 General Appearance: no apparent distress EENT: other - Trach to vent Cardiovascular: normal rate Respiratory/Chest: decreased breath sounds Abdomen: soft, distended Leonidas Honeycutt MD Jul 16, 2020 14:30
[2020-07-16 16:00] VITALS: BP 127/78
--- NOTE | 2020-07-16 16:54 | NUR ---
NURSE NOTES: Patient refused pericare and bed bath, offered x 2. Patient continued to refuse, respected patient rights. Patient noted on rectal tube and urinary cabrera catheter. Will continue to monitor patient.
--- NOTE | 2020-07-16 17:12 | General Progress Note ---
Subjective ROS Limited/Unobtainable: Yes Allergies: Coded Allergies: No Known Allergies (Unverified , 06/13/20) Objective Last 24 Hour Vital Signs Date Time Temp Pulse Resp B/P (MAP) Pulse Ox O2 Delivery O2 Flow Rate FiO2 07/16/20 16:00 35 07/16/20 16:00 75 07/16/20 16:00 Mechanical Ventilator 07/16/20 16:00 97.0 76 20 127/78 (94) 94 07/16/20 15:25 75 23 35 07/16/20 12:56 80 23 35 07/16/20 12:00 35 07/16/20 12:00 97.0 74 25 129/79 (96) 94 07/16/20 12:00 71 07/16/20 12:00 Mechanical Ventilator 07/16/20 10:50 74 24 30 07/16/20 10:39 75 23 35 07/16/20 08:00 97.5 74 25 129/73 (91) 96 07/16/20 08:00 35 07/16/20 08:00 74 07/16/20 08:00 Mechanical Ventilator 07/16/20 07:05 74 25 35 07/16/20 04:00 75 07/16/20 04:00 35 07/16/20 04:00 97.7 78 135/73 (93) 07/16/20 04:00 Mechanical Ventilator 07/16/20 03:50 76 21 35 07/16/20 00:00 35 07/16/20 00:00 77 07/16/20 00:00 Mechanical Ventilator 07/16/20 00:00 97.5 77 19 136/77 (96) 94 07/15/20 22:45 74 22 35 07/15/20 20:00 35 07/15/20 20:00 Mechanical Ventilator 07/15/20 20:00 74 07/15/20 20:00 97.2 75 20 134/82 (99) 95 07/15/20 19:33 73 23 35 Intake and Output 07/15/20 07/16/20 19:00 07:00 Intake Total 916 ml 478 ml Output Total 1350 ml 350 ml Balance -434 ml 128 ml Free Water 300 ml 100 ml Tube Feeding 616 ml 378 ml Output Urine Total 150 ml 200 ml Stool Total 200 ml 150 ml Hemodialysis UF 1000 ml Laboratory Tests 07/15/20 17:49: POC Whole Blood Glucose 93 07/15/20 23:31: POC Whole Blood Glucose 141H 07/16/20 03:10: Random Vancomycin Level 23.2 07/16/20 05:27: POC Whole Blood Glucose 169H 07/16/20 10:40: Arterial Blood pH 7.315L, Arterial Blood Partial Pressure CO2 63.0*H, Arterial Blood Partial Pressure O2 129.3H, Arterial Blood HCO3 31.4H, Arterial Blood Oxygen Saturation 98.4, Arterial Blood Base Excess 4.3H, Joe Test Positive 07/16/20 12:17: POC Whole Blood Glucose 171H 07/16/20 16:40: POC Whole Blood Glucose 145H Height (Feet): 5 Height (Inches): 8.00 Weight (Pounds): 143 Assessment/Plan Problem List: (1) Anemia ICD Codes: D64.9 - Anemia, unspecified SNOMED: 324251337 (2) KERRI (acute kidney injury) ICD Codes: N17.9 - Acute kidney failure, unspecified SNOMED: 9968566, 39547645 (3) Acute respiratory failure ICD Codes: J96.00 - Acute respiratory failure, unspecified whether with hypoxia or hypercapnia SNOMED: 84260414 Qualifiers: Qualified Codes: J96.02 - Acute respiratory failure with hypercapnia (4) Hyperkalemia ICD Codes: E87.5 - Hyperkalemia SNOMED: 67546008 (5) Abnormal laboratory test result ICD Codes: R89.9 - Unspecified abnormal finding in specimens from other organs, systems and tissues SNOMED: 369586034 (6) Anemia ICD Codes: D64.9 - Anemia, unspecified SNOMED: 435475867 Status: progressing Assessment/Plan: s/p trach and esrd on hd sepsis lyte abnormlaity needs placement no fever hd per renal s/p acute mi s/ Neida Apple MD Jul 16, 2020 17:11
--- NOTE | 2020-07-16 17:29 | Surgery Progress Note ---
Surgery Progress Note Subjective Symptoms: improved, tolerating diet, passing flatus, BM Objective Last 24 Hour Vital Signs Date Time Temp Pulse Resp B/P (MAP) Pulse Ox O2 Delivery O2 Flow Rate FiO2 07/16/20 16:00 35 07/16/20 16:00 75 07/16/20 16:00 Mechanical Ventilator 07/16/20 16:00 97.0 76 20 127/78 (94) 94 07/16/20 15:25 75 23 35 07/16/20 12:56 80 23 35 07/16/20 12:00 35 07/16/20 12:00 97.0 74 25 129/79 (96) 94 07/16/20 12:00 71 07/16/20 12:00 Mechanical Ventilator 07/16/20 10:50 74 24 30 07/16/20 10:39 75 23 35 07/16/20 08:00 97.5 74 25 129/73 (91) 96 07/16/20 08:00 35 07/16/20 08:00 74 07/16/20 08:00 Mechanical Ventilator 07/16/20 07:05 74 25 35 07/16/20 04:00 75 07/16/20 04:00 35 07/16/20 04:00 97.7 78 135/73 (93) 07/16/20 04:00 Mechanical Ventilator 07/16/20 03:50 76 21 35 07/16/20 00:00 35 07/16/20 00:00 77 07/16/20 00:00 Mechanical Ventilator 07/16/20 00:00 97.5 77 19 136/77 (96) 94 07/15/20 22:45 74 22 35 07/15/20 20:00 35 07/15/20 20:00 Mechanical Ventilator 07/15/20 20:00 74 07/15/20 20:00 97.2 75 20 134/82 (99) 95 07/15/20 19:33 73 23 35 I&O Intake and Output 07/15/20 07/16/20 19:00 07:00 Intake Total 916 ml 478 ml Output Total 1350 ml 350 ml Balance -434 ml 128 ml Free Water 300 ml 100 ml Tube Feeding 616 ml 378 ml Output Urine Total 150 ml 200 ml Stool Total 200 ml 150 ml Hemodialysis UF 1000 ml Dressing: saturated Cardiovascular: RSR Respiratory: decreased breath sounds Abdomen: non-tender, present bowel sounds Extremities: no edema, no tenderness, no cyanosis Laboratory Tests Test 07/15/20 17:49 07/15/20 23:31 07/16/20 03:10 07/16/20 05:27 POC Whole Blood Glucose 93 MG/DL (74-106) 141 MG/DL (74-106) H 169 MG/DL (74-106) H Random Vancomycin Level 23.2 ug/mL Test 07/16/20 10:40 07/16/20 12:17 07/16/20 16:40 Arterial Blood pH 7.315 (7.350-7.450) Arterial Blood Partial Pressure CO2 63.0 mmHg (35.0-45.0) *H Arterial Blood Partial Pressure O2 129.3 mmHg (75.0-100.0) H Arterial Blood HCO3 31.4 mmol/L (22.0-26.0) H Arterial Blood Oxygen Saturation 98.4 % (95-100) Arterial Blood Base Excess 4.3 (-2-2) H Joe Test Positive POC Whole Blood Glucose 171 MG/DL (74-106) H 145 MG/DL (74-106) H Plan Problems: (1) Leukocytosis Assessment & Plan: 54-year-old male multiple comorbidities admitted for abnormal chest x-ray potentially pneumonia leukocytosis abnormal labs. Patient identified to have a prior left BKA surgical sutures still in place as well as a surgical sacral wound with sutures in place. Considerations of dehiscence being identified and potential etiology of infection. After evaluation unlikely source of infection though the sacral wound was looked to be dehiscing at the inferior aspect. No acute surgical mention at this time We will discussed care plan with PCP Recommend follow-up with initial surgeon considerations of removal of surgical sutures Care plan initiated worsening lft's US ordered ? shayla monitor for bleeding from right chest wall cath change dressings Extensive airspace consolidations at the lung bases consistent with severe multifocal infiltrate. Associated, large bilateral pleural effusions. Evaluation of the abdominal viscera is markedly suboptimal due to poor CT technique and lack of intravenous contrast. No definite hepatic lesion. No definite cholelithiasis. Mild colon wall thickening. The spleen, pancreas, and adrenal glands are not visualized well enough reliable assessment. No definite hydronephrosis. The kidneys are hyperdense, correlate for medical renal disease. No nephrolithiasis. Sparrow catheter within a decompressed urinary bladder. Moderate diverticulosis, without acute diverticulitis. No small bowel obstruction. PEG tube presumably within the stomach. Atherosclerotic calcifications of the aorta. Low-attenuation of the intravascular blood pool, correlate for anemia. IVC filter, incidentally noted. Air within the subcutaneous fat overlying the sacrum with skin thickening, correlate with physical exam for sacral decubitus ulcer. Degenerative changes of the spine. Bilateral pars defects at L5 without anterolisthesis of L5 on S1. IMPRESSION: Extensive airspace consolidations at the lung bases consistent with severe multifocal infiltrate. Associated, large bilateral pleural effusions. Evaluation of the abdominal viscera is markedly suboptimal due to poor CT technique and lack of intravenous contrast. Moderate diverticulosis, without acute diverticulitis. No small bowel obstruction. PEG tube presumably within the stomach. Note, if there is suspicion for colitis consider repeat scan with improved CT technique/intravenous contrast. Mild gallbladder wall thickening without definite evidence of cholelithiasis. Air within the subcutaneous fat overlying the sacrum with skin thickening, correlate with physical exam for sacral decubitus ulcer. Bilateral pars defects at L5. The kidneys are hyperdense, correlate for medical renal disease.. There is prompt uptake within the liver with washout of radiotracer from the liver on subsequent imaging. There is excretion into the biliary ducts. Gallbladder activity is present in a timely fashion indicating patency of the cystic duct. Very scant bowel activity is demonstrated concerning for common bile duct obstruction or sphincter dysfunction. IMPRESSION: No evidence to suggest cholecystitis. Gallbladder activity is present in a timely fashion indicating patency of the cystic duct. Very little radiotracer noted in the small bowel. Correlate with LFTs as a degree of common bile duct obstruction or sphincter dysfunction not excluded. Consider further evaluation with MRCP. (2) Surgical wound dehiscence Assessment & Plan: Patient identified to have a left BKA surgical sutures in place flap looks like it is taken well no signs of infection at this time no signs of seroma hematoma or drainage. Unknown exact length or duration of potential prior left BKA and until then recommend leaving sutures in place as it may be too early though it does look well-healed. If able to obtain prior records we will be happy to remove sutures otherwise will need follow-up with primary surgeon furthermore patient identified to have a surgical wound in the sacral area seems he probably potentially had a stage IV sacral decubitus ulcer that had debridement and primary closure. Fortunately. Sutures are still in place and it looks like the inferior aspect may be slowly dehiscing. There is no significant drainage no foul odor no signs of active infection unknown if bone was palpable prior. Can consider removing surgical sutures but again would recommend obtaining prior records of possible prior to doing so. Also recommend following up with primary surgeon as this may need ongoing continued care. Will follow with recommendations and as information is available. Continue current care plan. Wash wounds daily with normal saline. Apply skin protectant Optifoam dressing. Turn every 2 hours. Offload pressure with pillows and air mattress. Nutritional optimization. Worsening leukocytosis. Patient continues to have dehiscence of the prior primarily closed sacral decubitus ulcer. The sutures are was nearly torn out and the wound is opening and saturating with stool with bowel movements now has rectal tube. Unfortunately I see significant concern given dehiscence and therefore sutures were cut at the bedside and wound immediately opened under some tension. Underlying Vicryl sutures identified. There is some backbleeding some granulation tissue but definitely no take or closure of the stage IV sacral decubitus ulcer that was identified. Nonexcisional debridement done with gauze and jorge layer of slough and biofilm was removed wound was cleaned packing dressings applied. No abscess no purulent drainage unlikely etiology of infection. (3) History of left below knee amputation (4) Malnutrition Assessment & Plan: DAILY ESTIMATED NEEDS: Needs based on Wound, critical care, underweight/ 55.5kg 25-33 (25-35 w/ HD) kcals/kg 5802-4603 ([id number]) total kcals 1.25-2 g protein/kg 69-111 g total protein 25-30 mL/kg 5117-4936 total fluid mLs NUTRITION DIAGNOSIS: * Swallowing difficulty R/T respiratory status as evidenced by pt is trach/vent dep, PEG dep. CURRENT TF: Nepro @ 40ml/hr x24 hrs ENTERAL NUTRITION RECOMMENDATIONS: Nepro @ 40ml/hr x 24 hrs to provide 960ml, 1728kcal, 78g prot, 698ml free water * Maintain current TF * HOB over 30 degrees/ water flush per MD ADDITIONAL RECOMMENDATIONS: * Per SNF: HT=69" CR=563ols -> rec daily calibrated bedscale wt * Monitor lytes: elev K-> now wnl, phos now low * Wound healing: RANDY BID + Nephrovite 1 tab qdaily * Monitor for bm, last bm 06/19, now 06/24 * W/ HD rec to add Prosource 1 pack qdaily for added 11g pro/day. (5) Anemia (6) KERRI (acute kidney injury) (7) Acute respiratory failure Assessment & Plan: hold on trach change cuff okay vent settings prn abg cxr noted (8) Hyperkalemia (9) Anemia (10) Abnormal laboratory test result (11) Chronic respiratory failure (12) Hyperglycemia (13) Hypothyroidism Azar Mares Jul 16, 2020 17:29
--- NOTE | 2020-07-16 19:05 | NUR ---
NURSE NOTES: Received report from MAX Bond. Pt is seen in semi- caba's position. pt is alert x 3. No signs of respiratory distress. Trach to vent with settings as ordered. O2 sat- 100%. Pt has no pain. IV site on Left hand g24 patent and intact. With rectal tube attached running liquidy stool, on cabrera cath intact and patent. Gtube patent and intact and running nephro @42 ml/ hr. Bed in lowest position, call light within reach.
--- NOTE | 2020-07-16 19:07 | NUR ---
NURSE HAND-OFF REPORT: Important Events on Shift: Patient Status: Stable Diet: Nepro 42 ml/hr Pending Orders: None Pending Results/Labs:None Pending MD notification:None Latest Vital Signs: Temperature 97.0 , Pulse 75 , B/P 127 /78 , Respiratory Rate 20 , O2 SAT 94 , Mechanical Ventilator, O2 Flow Rate 15.0 . Vital Sign Comment: Stable EKG Rhythm: Sinus Rhythm Rhythm change?: N MD Notified?: Y -Dr. Mcguire and Dr. Ambika BENDER Response: No New Orders Received Latest Santiago Fall Score: 80 Fall Risk: High Risk Safety Measures: Call light Within Reach, Bed Alarm Zone 2, Side Rails Side Rails x2, Bed position Low and Locked. Fall Precautions: Yellow Socks Yellow Gown Door Sign Patient Fall Education Report given to MAX Kimble.
[2020-07-16 20:00] VITALS: BP 127/78
[2020-07-16] MEDS: Dyna-Hex 2% Top Sol 2oz TOPIC SCH (20:30)
[2020-07-16] MEDS: Epoetin Alfa-EPBX(ESRD on dialysis)10,000 unit/ml vial SUBQ SCH (20:30)
[2020-07-17] VITALS: BP 134/75
--- NOTE | 2020-07-17 03:00 | NUR ---
NURSE NOTES: Noted to have bleeding on the suctioned tube. Dr. crandall made aware, refer in AM. Sponge bath given, no pain noted. Not in respiratory distress. o2 sat-100%. Bed in lowest position, continue to plan of care .
[2020-07-17] MEDS: Aluminum Hydroxide Gel Susp 15ml GT SCH ×4 (04:04→21:27)
[2020-07-17 04:36] VITALS: BP 124/84
[2020-07-17] MEDS: NovoLOG Insulin Flexpen SUBQ SCH ×5 (05:50→23:32)
[2020-07-17 05:55] LABS: HEMATOCRIT 24.6 % (42.0-52.0); HEMOGLOBIN 7.9 G/DL (14.2-18.0); MEAN CORPUSCULAR VOLUME 91 FL (80-99); PLATELET COUNT 216 K/UL (150-450); RED CELL DISTRIBUTION WIDTH 16.2 % (11.6-14.8); WHITE BLOOD COUNT 6.5 K/UL (4.8-10.8)
--- NOTE | 2020-07-17 06:09 | NUR ---
NURSE NOTES: Pt is sleeping in bed with no discomfort. o2 sat- 95%. Continue to plan of care.
--- NOTE | 2020-07-17 06:53 | NUR ---
NURSE HAND-OFF REPORT: Important Events on Shift: Stable,D/C planning, bleeding when suctioned- refer in AM. Patient Status: Stable Diet: GTF Pending Orders: None Pending Results/Labs: None Pending MD notification: NOne Latest Vital Signs: Temperature 97.7 , Pulse 78 , B/P 135 /73 , Respiratory Rate 21 , O2 SAT 94 , Mechanical Ventilator, O2 Flow Rate 15.0 . Vital Sign Comment: WNL EKG Rhythm: Sinus Rhythm Rhythm change?: N MD Notified?: Y -Dr. Mcguire and Dr. Ambika BENDER Response: No New Orders Received Latest Santiago Fall Score: 80 Fall Risk: High Risk Safety Measures: Call light Within Reach, Bed Alarm Zone 2, Side Rails Side Rails x2, Bed position Low and Locked. Fall Precautions: Yellow Socks Yellow Gown Door Sign Patient Fall Education Report given to [Varun RN].
[2020-07-17 07:07] LABS: ALBUMIN 1.4 G/DL (3.4-5.0); ALBUMIN/GLOBULIN RATIO 0.2 (1.0-2.7); BILIRUBIN,TOTAL 0.4 MG/DL (0.2-1.0); CREATININE 3.9 MG/DL (0.55-1.30); PHOSPHORUS 3.8 MG/DL (2.5-4.9); POTASSIUM 4.8 MMOL/L (3.5-5.1)
--- NOTE | 2020-07-17 07:22 | NUR ---
NURSE NOTES: Received report from MAX Kimble. Patient resting in bed, in stable condition. No s/sx of SOB, breathing is even and unlabored, vent settings as ordered. Patient denies any presence of pain or discomfort. Patient has G-tube, patent and flushing. Patient has urinary cabrera catheter. Bed is in lowest position, brakes engaged. Call light is kept within easy reach. Will continue to monitor patient.
[2020-07-17 08:00] VITALS: BP 132/82
[2020-07-17] MEDS: Ascorbic Acid 500mg tab GT SCH (08:05)
--- NOTE | 2020-07-17 08:52 | General Progress Note ---
Subjective ROS Limited/Unobtainable: No Allergies: Coded Allergies: No Known Allergies (Unverified , 06/13/20) Objective Last 24 Hour Vital Signs Date Time Temp Pulse Resp B/P (MAP) Pulse Ox O2 Delivery O2 Flow Rate FiO2 07/17/20 07:35 73 23 35 07/17/20 04:36 97.7 72 22 124/84 (97) 95 07/17/20 04:00 35 07/17/20 04:00 Mechanical Ventilator 07/17/20 04:00 71 07/17/20 03:10 72 21 35 07/17/20 00:00 77 07/17/20 00:00 97.5 72 20 134/75 (94) 96 07/17/20 00:00 35 07/17/20 00:00 Mechanical Ventilator 07/16/20 23:15 72 18 35 07/16/20 20:00 76 07/16/20 20:00 35 07/16/20 20:00 Mechanical Ventilator 07/16/20 20:00 97.7 77 21 127/78 (94) 94 07/16/20 19:07 77 21 35 07/16/20 16:00 35 07/16/20 16:00 75 07/16/20 16:00 Mechanical Ventilator 07/16/20 16:00 97.0 76 20 127/78 (94) 94 07/16/20 15:25 75 23 35 07/16/20 12:56 80 23 35 07/16/20 12:00 35 07/16/20 12:00 97.0 74 25 129/79 (96) 94 07/16/20 12:00 71 07/16/20 12:00 Mechanical Ventilator 07/16/20 10:50 74 24 30 07/16/20 10:39 75 23 35 Intake and Output 07/16/20 07/17/20 19:00 07:00 Intake Total 804 ml 570 ml Output Total 300 ml 110 ml Balance 504 ml 460 ml Free Water 300 ml 150 ml Tube Feeding 504 ml 420 ml Output Urine Total 200 ml 10 ml Stool Total 100 ml 100 ml Laboratory Tests 07/16/20 10:40: Arterial Blood pH 7.315L, Arterial Blood Partial Pressure CO2 63.0*H, Arterial Blood Partial Pressure O2 129.3H, Arterial Blood HCO3 31.4H, Arterial Blood Oxygen Saturation 98.4, Arterial Blood Base Excess 4.3H, Joe Test Positive 07/16/20 12:17: POC Whole Blood Glucose 171H 07/16/20 16:40: POC Whole Blood Glucose 145H 07/17/20 00:00: POC Whole Blood Glucose 131H 07/17/20 03:08: White Blood Count 6.5, Red Blood Count 2.70L, Hemoglobin 7.9L, Hematocrit 24.6L, Mean Corpuscular Volume 91, Mean Corpuscular Hemoglobin 29.4, Mean Corpuscular Hemoglobin Concent 32.2, Red Cell Distribution Width 16.2H, Platelet Count 216, Mean Platelet Volume 7.7, Neutrophils (%) (Auto) , Lymphocytes (%) (Auto) , Monocytes (%) (Auto) , Eosinophils (%) (Auto) , Basophils (%) (Auto) , Differential Total Cells Counted 100, Neutrophils % (Manual) 65, Lymphocytes % (Manual) 21, Monocytes % (Manual) 4, Eosinophils % (Manual) 10H, Basophils % (Manual) 0, Band Neutrophils 0, Platelet Estimate Adequate, Platelet Morphology Normal, Hypochromasia 2+, Anisocytosis 2+, Sodium Level 134L, Potassium Level 4.8, Chloride Level 98, Carbon Dioxide Level 30, Anion Gap 6, Blood Urea Nitrogen 76H, Creatinine 3.9H, Estimat Glomerular Filtration Rate 19.8, Glucose Level 119H, Calcium Level 8.0L, Phosphorus Level 3.8, Magnesium Level 2.5H, Total Bilirubin 0.4, Aspartate Amino Transf (AST/SGOT) 35, Alanine Aminotransferase (ALT/SGPT) 53, Alkaline Phosphatase 324H, Total Protein 7.7, Albumin 1.4L, Globulin 6.3, Albumin/Globulin Ratio 0.2L 07/17/20 05:47: POC Whole Blood Glucose 147H Height (Feet): 5 Height (Inches): 8.00 Weight (Pounds): 143 General Appearance: no apparent distress EENT: normal ENT inspection Neck: supple Cardiovascular: normal rate Respiratory/Chest: decreased breath sounds Abdomen: normal bowel sounds, non tender, soft Extremities: non-tender Assessment/Plan Status: progressing Assessment/Plan: Assessment Abnormal LFT - steadily improving (s/p US, CT, HIDA) h/o Gross hematuria Anemia low platelet count - resolved low albumin Azotemia Recommendations - Unable to have MRCP due to oscar - follow LFT and CBC - no plans for endoscopic GI w/u, per family discussion - TF - increased rate to give more Kcal and protein - Transfuse [place] Stan Otero MD Jul 17, 2020 08:52
--- NOTE | 2020-07-17 09:16 | Infectious Diseases Prog Note ---
Assessment/Plan Assessment/Plan IMPRESSION: Pneumonia with Pseudomonas & Providencia treated Hypothermia COVID19 X 2: negative Ventilator-dependent respiratory failure, Diabetes mellitus type 2, Hypertension, History of left BKA, Hypertension, anemia, Major depression, Pressure ulcer, Elevated transaminase, Hyperkalemia. Anemia R leg DVT s/p IVC filter Sacral osteomyelitis Severe anemia Acute renal failure ESRD Hypercapnic respiratory failure Hematuria Thrombocytopenia Diverticulosis Diarrhea, C. difficile negative RECOMMENDATION: Continue Vancomycin until 07/18 Subjective ROS Limited/Unobtainable: Yes Allergies: Coded Allergies: No Known Allergies (Unverified , 06/13/20) Objective Last 24 Hour Vital Signs Date Time Temp Pulse Resp B/P (MAP) Pulse Ox O2 Delivery O2 Flow Rate FiO2 07/17/20 07:35 73 23 35 07/17/20 04:36 97.7 72 22 124/84 (97) 95 07/17/20 04:00 35 07/17/20 04:00 Mechanical Ventilator 07/17/20 04:00 71 07/17/20 03:10 72 21 35 07/17/20 00:00 77 07/17/20 00:00 97.5 72 20 134/75 (94) 96 07/17/20 00:00 35 07/17/20 00:00 Mechanical Ventilator 07/16/20 23:15 72 18 35 07/16/20 20:00 76 07/16/20 20:00 35 07/16/20 20:00 Mechanical Ventilator 07/16/20 20:00 97.7 77 21 127/78 (94) 94 07/16/20 19:07 77 21 35 07/16/20 16:00 35 07/16/20 16:00 75 07/16/20 16:00 Mechanical Ventilator 07/16/20 16:00 97.0 76 20 127/78 (94) 94 07/16/20 15:25 75 23 35 07/16/20 12:56 80 23 35 07/16/20 12:00 35 07/16/20 12:00 97.0 74 25 129/79 (96) 94 07/16/20 12:00 71 07/16/20 12:00 Mechanical Ventilator 07/16/20 10:50 74 24 30 07/16/20 10:39 75 23 35 Height (Feet): 5 Height (Inches): 8.00 Weight (Pounds): 143 HEENT: status post trach, other - poor dentition Respiratory/Chest: lungs clear, other - on ventilator Cardiovascular: normal rate Abdomen: soft, non tender, other - GT feeding Extremities: other - edema, left BKA Skin: ulcers, other - Sacral pressure ulcer Neurologic/Psychiatric: alert, responsive Laboratory Tests Test 07/16/20 10:40 07/16/20 12:17 07/16/20 16:40 07/17/20 00:00 Arterial Blood pH 7.315 (7.350-7.450) Arterial Blood Partial Pressure CO2 63.0 mmHg (35.0-45.0) *H Arterial Blood Partial Pressure O2 129.3 mmHg (75.0-100.0) H Arterial Blood HCO3 31.4 mmol/L (22.0-26.0) H Arterial Blood Oxygen Saturation 98.4 % (95-100) Arterial Blood Base Excess 4.3 (-2-2) H Joe Test Positive POC Whole Blood Glucose 171 MG/DL (74-106) H 145 MG/DL (74-106) H 131 MG/DL (74-106) H Test 07/17/20 03:08 07/17/20 05:47 White Blood Count 6.5 K/UL (4.8-10.8) Red Blood Count 2.70 M/UL (4.70-6.10) L Hemoglobin 7.9 G/DL (14.2-18.0) L Hematocrit 24.6 % (42.0-52.0) L Mean Corpuscular Volume 91 FL (80-99) Mean Corpuscular Hemoglobin 29.4 PG (27.0-31.0) Mean Corpuscular Hemoglobin Concent 32.2 G/DL (32.0-36.0) Red Cell Distribution Width 16.2 % (11.6-14.8) H Platelet Count 216 K/UL (150-450) Mean Platelet Volume 7.7 FL (6.5-10.1) Neutrophils (%) (Auto) % (45.0-75.0) Lymphocytes (%) (Auto) % (20.0-45.0) Monocytes (%) (Auto) % (1.0-10.0) Eosinophils (%) (Auto) % (0.0-3.0) Basophils (%) (Auto) % (0.0-2.0) Differential Total Cells Counted 100 Neutrophils % (Manual) 65 % (45-75) Lymphocytes % (Manual) 21 % (20-45) Monocytes % (Manual) 4 % (1-10) Eosinophils % (Manual) 10 % (0-3) H Basophils % (Manual) 0 % (0-2) Band Neutrophils 0 % (0-8) Platelet Estimate Adequate Platelet Morphology Normal Hypochromasia 2+ Anisocytosis 2+ Sodium Level 134 MMOL/L (136-145) L Potassium Level 4.8 MMOL/L (3.5-5.1) Chloride Level 98 MMOL/L (98-107) Carbon Dioxide Level 30 MMOL/L (21-32) Anion Gap 6 mmol/L (5-15) Blood Urea Nitrogen 76 mg/dL (7-18) H Creatinine 3.9 MG/DL (0.55-1.30) H Estimat Glomerular Filtration Rate 19.8 mL/min (>60) Glucose Level 119 MG/DL (74-106) H Calcium Level 8.0 MG/DL (8.5-10.1) L Phosphorus Level 3.8 MG/DL (2.5-4.9) Magnesium Level 2.5 MG/DL (1.8-2.4) H Total Bilirubin 0.4 MG/DL (0.2-1.0) Aspartate Amino Transf (AST/SGOT) 35 U/L (15-37) Alanine Aminotransferase (ALT/SGPT) 53 U/L (12-78) Alkaline Phosphatase 324 U/L (46-116) H Total Protein 7.7 G/DL (6.4-8.2) Albumin 1.4 G/DL (3.4-5.0) L Globulin 6.3 g/dL Albumin/Globulin Ratio 0.2 (1.0-2.7) L POC Whole Blood Glucose 147 MG/DL (74-106) H Current Medications Medications (Trade) Dose Ordered Sig/Maryjane Route PRN Reason Start Time Stop Time Status Last Admin Dose Admin Acetaminophen (Tylenol) 650 mg Q4H PRN GT Mild Pain (Pain Scale 1-3) 06/18/20 23:00 08/16/20 22:59 07/12/20 13:22 Aluminum Hydroxide (Amphojel) 1,920 mg Q6H GT 06/17/20 10:00 07/31/20 09:59 07/17/20 09:03 Ascorbic Acid (Vitamin C) 500 mg DAILY GT 07/01/20 09:00 07/31/20 08:59 07/17/20 08:05 Chlorhexidine Gluconate (Inés-Hex 2%) 1 applic DAILY@1999 TOPIC 06/21/20 20:00 09/19/20 19:59 07/16/20 20:30 Dextrose (Dextrose 50%) 25 ml Q30M PRN IV Hypoglycemia 06/28/20 18:30 09/26/20 18:29 Dextrose (Dextrose 50%) 50 ml Q30M PRN IV Hypoglycemia 06/28/20 18:30 09/26/20 18:29 Epoetin Bonilla (Epoetin Bonilla(ESRD on dialysis)) 10,000 unit SUBQ 07/02/20 21:00 09/16/20 20:59 07/16/20 20:30 Haloperidol Lactate (Haldol) 5 mg Q6H PRN IM Agitation 06/21/20 23:15 08/05/20 23:14 06/25/20 18:17 Insulin Aspart (NovoLOG) EVERY 6 HOURS SUBQ 06/29/20 00:00 09/27/20 00:00 07/17/20 05:50 Lansoprazole (Prevacid) 30 mg Q12HR GT 06/30/20 21:00 07/30/20 20:59 07/17/20 08:05 Levothyroxine Sodium (Synthroid) 88 mcg DAILY@0630 GT 07/03/20 06:30 08/02/20 06:29 07/17/20 06:33 Vancomycin HCl (Vanco pharmacy to dose) 1 ea DAILY PRN MISC Per rx protocol 06/27/20 11:30 07/18/20 23:59 Paul Amador MD Jul 17, 2020 09:16
--- NOTE | 2020-07-17 09:45 | NUR ---
NURSE NOTES: Dr. Lashonda Amador seen and examined patient at bedside. Per Dr. Lashonda Amador patient may have ice chips, no swallow evaluation ordered. Order entered, noted, and carried out. Will continue to monitor patient.
--- NOTE | 2020-07-17 10:19 | Cardiac Electrophysiology PN ---
Assessment/Plan Assessment/Plan 1. Vent-dependent respirator failure. S/P tracheostomy. On 50% Fio2 Chest x-ray extensive bilateral pneumonia or ARDS. Off isolation EF 50%. Ruled out for [place] On iv Abx. S/P Trach change 2. Sinus Tachycardia, likely due to respiratory failure and sepsis 3. Right femoral vein DVT. S/P IVC filter 06/18 4. Dysphagia, status post PEG placement. 5. Renal failure. S/P Right IJ Iron and on HD by Dr. Honeycutt. 6. Severe anemia, S/P multiple PRBCs for hematuria 7. High LFTs, s/p CT abdomen and pelvis and HIDA FU Dr. Stringer 8. 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 On 45% Fio2 and PEEP 5. 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 ADMINISTRATION ADVISOR as HR dropped to 30 at 4 am 06/25/20 Got PRBC 06/27, 06/28,07/07,07/11 and 07/15 S/P trach change at bedside Objective Last 24 Hour Vital Signs Date Time Temp Pulse Resp B/P (MAP) Pulse Ox O2 Delivery O2 Flow Rate FiO2 07/17/20 08:00 Mechanical Ventilator 07/17/20 08:00 35 07/17/20 08:00 97.7 72 22 132/82 (99) 96 07/17/20 07:35 73 23 35 07/17/20 04:36 97.7 72 22 124/84 (97) 95 07/17/20 04:00 35 07/17/20 04:00 Mechanical Ventilator 07/17/20 04:00 71 07/17/20 03:10 72 21 35 07/17/20 00:00 77 07/17/20 00:00 97.5 72 20 134/75 (94) 96 07/17/20 00:00 35 07/17/20 00:00 Mechanical Ventilator 07/16/20 23:15 72 18 35 07/16/20 20:00 76 07/16/20 20:00 35 07/16/20 20:00 Mechanical Ventilator 07/16/20 20:00 97.7 77 21 127/78 (94) 94 07/16/20 19:07 77 21 35 07/16/20 16:00 35 07/16/20 16:00 75 07/16/20 16:00 Mechanical Ventilator 07/16/20 16:00 97.0 76 20 127/78 (94) 94 07/16/20 15:25 75 23 35 07/16/20 12:56 80 23 35 07/16/20 12:00 35 07/16/20 12:00 97.0 74 25 129/79 (96) 94 07/16/20 12:00 71 07/16/20 12:00 Mechanical Ventilator 07/16/20 10:50 74 24 30 07/16/20 10:39 75 23 35 Intake and Output 07/16/20 07/17/20 19:00 07:00 Intake Total 804 ml 570 ml Output Total 300 ml 110 ml Balance 504 ml 460 ml Free Water 300 ml 150 ml Tube Feeding 504 ml 420 ml Output Urine Total 200 ml 10 ml Stool Total 100 ml 100 ml Laboratory Tests Test 07/16/20 10:40 07/16/20 12:17 07/16/20 16:40 07/17/20 00:00 Arterial Blood pH 7.315 (7.350-7.450) Arterial Blood Partial Pressure CO2 63.0 mmHg (35.0-45.0) *H Arterial Blood Partial Pressure O2 129.3 mmHg (75.0-100.0) H Arterial Blood HCO3 31.4 mmol/L (22.0-26.0) H Arterial Blood Oxygen Saturation 98.4 % (95-100) Arterial Blood Base Excess 4.3 (-2-2) H Joe Test Positive POC Whole Blood Glucose 171 MG/DL (74-106) H 145 MG/DL (74-106) H 131 MG/DL (74-106) H Test 07/17/20 03:08 07/17/20 05:47 White Blood Count 6.5 K/UL (4.8-10.8) Red Blood Count 2.70 M/UL (4.70-6.10) L Hemoglobin 7.9 G/DL (14.2-18.0) L Hematocrit 24.6 % (42.0-52.0) L Mean Corpuscular Volume 91 FL (80-99) Mean Corpuscular Hemoglobin 29.4 PG (27.0-31.0) Mean Corpuscular Hemoglobin Concent 32.2 G/DL (32.0-36.0) Red Cell Distribution Width 16.2 % (11.6-14.8) H Platelet Count 216 K/UL (150-450) Mean Platelet Volume 7.7 FL (6.5-10.1) Neutrophils (%) (Auto) % (45.0-75.0) Lymphocytes (%) (Auto) % (20.0-45.0) Monocytes (%) (Auto) % (1.0-10.0) Eosinophils (%) (Auto) % (0.0-3.0) Basophils (%) (Auto) % (0.0-2.0) Differential Total Cells Counted 100 Neutrophils % (Manual) 65 % (45-75) Lymphocytes % (Manual) 21 % (20-45) Monocytes % (Manual) 4 % (1-10) Eosinophils % (Manual) 10 % (0-3) H Basophils % (Manual) 0 % (0-2) Band Neutrophils 0 % (0-8) Platelet Estimate Adequate Platelet Morphology Normal Hypochromasia 2+ Anisocytosis 2+ Sodium Level 134 MMOL/L (136-145) L Potassium Level 4.8 MMOL/L (3.5-5.1) Chloride Level 98 MMOL/L (98-107) Carbon Dioxide Level 30 MMOL/L (21-32) Anion Gap 6 mmol/L (5-15) Blood Urea Nitrogen 76 mg/dL (7-18) H Creatinine 3.9 MG/DL (0.55-1.30) H Estimat Glomerular Filtration Rate 19.8 mL/min (>60) Glucose Level 119 MG/DL (74-106) H Calcium Level 8.0 MG/DL (8.5-10.1) L Phosphorus Level 3.8 MG/DL (2.5-4.9) Magnesium Level 2.5 MG/DL (1.8-2.4) H Total Bilirubin 0.4 MG/DL (0.2-1.0) Aspartate Amino Transf (AST/SGOT) 35 U/L (15-37) Alanine Aminotransferase (ALT/SGPT) 53 U/L (12-78) Alkaline Phosphatase 324 U/L (46-116) H Total Protein 7.7 G/DL (6.4-8.2) Albumin 1.4 G/DL (3.4-5.0) L Globulin 6.3 g/dL Albumin/Globulin Ratio 0.2 (1.0-2.7) L POC Whole Blood Glucose 147 MG/DL (74-106) H Objective HEAD AND NECK: Status post tracheostomy. Right IJ Iron in place LUNGS: Coarse rhonchi and basilar rales. CARDIOVASCULAR: Irregular S1 and S2 with no gallop. ABDOMEN: Soft. Status post G-tube. EXTREMITIES: No pitting edema. Lance Mcguire MD Jul 17, 2020 10:19
--- NOTE | 2020-07-17 10:35 | NUR ---
NURSE NOTES: Contacted and informed Dr. Tan that patient's hemoglobin level today is 7.9, Hct 24.6, plt 216 and patient noted with red tinged sputum. BP 132/82, HR 72, SpO2 96%. Dr. Tan acknowledged and gave no new orders at this time. Will continue to monitor patient.
[2020-07-17 12:00] VITALS: BP 150/86
--- NOTE | 2020-07-17 12:36 | General Progress Note ---
Subjective ROS Limited/Unobtainable: Yes Allergies: Coded Allergies: No Known Allergies (Unverified , 06/13/20) Objective Last 24 Hour Vital Signs Date Time Temp Pulse Resp B/P (MAP) Pulse Ox O2 Delivery O2 Flow Rate FiO2 07/17/20 08:00 Mechanical Ventilator 07/17/20 08:00 35 07/17/20 08:00 97.7 72 22 132/82 (99) 96 07/17/20 07:44 74 07/17/20 07:35 73 23 35 07/17/20 04:36 97.7 72 22 124/84 (97) 95 07/17/20 04:00 35 07/17/20 04:00 Mechanical Ventilator 07/17/20 04:00 71 07/17/20 03:10 72 21 35 07/17/20 00:00 77 07/17/20 00:00 97.5 72 20 134/75 (94) 96 07/17/20 00:00 35 07/17/20 00:00 Mechanical Ventilator 07/16/20 23:15 72 18 35 07/16/20 20:00 76 07/16/20 20:00 35 07/16/20 20:00 Mechanical Ventilator 07/16/20 20:00 97.7 77 21 127/78 (94) 94 07/16/20 19:07 77 21 35 07/16/20 16:00 35 07/16/20 16:00 75 07/16/20 16:00 Mechanical Ventilator 07/16/20 16:00 97.0 76 20 127/78 (94) 94 07/16/20 15:25 75 23 35 07/16/20 12:56 80 23 35 Intake and Output 07/16/20 07/17/20 18:59 06:59 Intake Total 804 ml 612 ml Output Total 300 ml 110 ml Balance 504 ml 502 ml Free Water 300 ml 150 ml Tube Feeding 504 ml 462 ml Output Urine Total 200 ml 10 ml Stool Total 100 ml 100 ml Laboratory Tests 07/16/20 16:40: POC Whole Blood Glucose 145H 07/17/20 00:00: POC Whole Blood Glucose 131H 07/17/20 03:08: White Blood Count 6.5, Red Blood Count 2.70L, Hemoglobin 7.9L, Hematocrit 24.6L, Mean Corpuscular Volume 91, Mean Corpuscular Hemoglobin 29.4, Mean Corpuscular Hemoglobin Concent 32.2, Red Cell Distribution Width 16.2H, Platelet Count 216, Mean Platelet Volume 7.7, Neutrophils (%) (Auto) , Lymphocytes (%) (Auto) , Monocytes (%) (Auto) , Eosinophils (%) (Auto) , Basophils (%) (Auto) , Differential Total Cells Counted 100, Neutrophils % (Manual) 65, Lymphocytes % (Manual) 21, Monocytes % (Manual) 4, Eosinophils % (Manual) 10H, Basophils % (Manual) 0, Band Neutrophils 0, Platelet Estimate Adequate, Platelet Morphology Normal, Hypochromasia 2+, Anisocytosis 2+, Sodium Level 134L, Potassium Level 4.8, Chloride Level 98, Carbon Dioxide Level 30, Anion Gap 6, Blood Urea Nitrogen 76H, Creatinine 3.9H, Estimat Glomerular Filtration Rate 19.8, Glucose Level 119H, Calcium Level 8.0L, Phosphorus Level 3.8, Magnesium Level 2.5H, Total Bilirubin 0.4, Aspartate Amino Transf (AST/SGOT) 35, Alanine Aminotransferase (ALT/SGPT) 53, Alkaline Phosphatase 324H, Total Protein 7.7, Albumin 1.4L, Globulin 6.3, Albumin/Globulin Ratio 0.2L 07/17/20 05:47: POC Whole Blood Glucose 147H Height (Feet): 5 Height (Inches): 8.00 Weight (Pounds): 143 Assessment/Plan Problem List: (1) Anemia ICD Codes: D64.9 - Anemia, unspecified SNOMED: 222300293 (2) KERRI (acute kidney injury) ICD Codes: N17.9 - Acute kidney failure, unspecified SNOMED: 1948552, 12621308 (3) Acute respiratory failure ICD Codes: J96.00 - Acute respiratory failure, unspecified whether with hypoxia or hypercapnia SNOMED: 85998703 Qualifiers: Qualified Codes: J96.02 - Acute respiratory failure with hypercapnia (4) Hyperkalemia ICD Codes: E87.5 - Hyperkalemia SNOMED: 29857417 (5) Abnormal laboratory test result ICD Codes: R89.9 - Unspecified abnormal finding in specimens from other organs, systems and tissues SNOMED: 538292738 (6) Anemia ICD Codes: D64.9 - Anemia, unspecified SNOMED: 838819216 Status: progressing Assessment/Plan: s/p trach and esrd on hd sepsis anemia of chronic renal disease check lytes no fever needs placement hd per renal s/p acute mi Neida Apple MD Jul 17, 2020 12:36
--- NOTE | 2020-07-17 12:58 | Pulmonology Progress Note ---
Subjective ROS Limited/Unobtainable: Yes Interval Events: s/p trach change; abg better today Constitutional: Denies: fever HEENT: Repors: no symptoms Respiratory: Reports: no symptoms Cardiovascular: Reports: no symptoms Gastrointestinal/Abdominal: Reports: diarrhea Genitourinary: Reports: no symptoms Psychiatric: Reports: other - off of restraint Allergies: Coded Allergies: No Known Allergies (Unverified , 06/13/20) All Systems: reviewed and negative except above Objective Last 24 Hour Vital Signs Date Time Temp Pulse Resp B/P (MAP) Pulse Ox O2 Delivery O2 Flow Rate FiO2 07/17/20 12:00 35 07/17/20 12:00 Mechanical Ventilator 07/17/20 08:00 Mechanical Ventilator 07/17/20 08:00 35 07/17/20 08:00 97.7 72 22 132/82 (99) 96 07/17/20 07:44 74 07/17/20 07:35 73 23 35 07/17/20 04:36 97.7 72 22 124/84 (97) 95 07/17/20 04:00 35 07/17/20 04:00 Mechanical Ventilator 07/17/20 04:00 71 07/17/20 03:10 72 21 35 07/17/20 00:00 77 07/17/20 00:00 97.5 72 20 134/75 (94) 96 07/17/20 00:00 35 07/17/20 00:00 Mechanical Ventilator 07/16/20 23:15 72 18 35 07/16/20 20:00 76 07/16/20 20:00 35 07/16/20 20:00 Mechanical Ventilator 07/16/20 20:00 97.7 77 21 127/78 (94) 94 07/16/20 19:07 77 21 35 07/16/20 16:00 35 07/16/20 16:00 75 07/16/20 16:00 Mechanical Ventilator 07/16/20 16:00 97.0 76 20 127/78 (94) 94 07/16/20 15:25 75 23 35 Intake and Output 07/16/20 07/17/20 18:59 06:59 Intake Total 804 ml 612 ml Output Total 300 ml 110 ml Balance 504 ml 502 ml Free Water 300 ml 150 ml Tube Feeding 504 ml 462 ml Output Urine Total 200 ml 10 ml Stool Total 100 ml 100 ml General Appearance: WD/WN, no acute distress HEENT: status post trach Respiratory: chest wall non-tender, decreased breath sounds Cardiovascular: normal rate Abdomen: normal bowel sounds Genitourinary: other - [place] Extremities: no cyanosis, other - left lower leg amputee; b/l 1+ pitting edema Laboratory Tests 07/16/20 16:40: POC Whole Blood Glucose 145H 07/17/20 00:00: POC Whole Blood Glucose 131H 07/17/20 03:08: White Blood Count 6.5, Red Blood Count 2.70L, Hemoglobin 7.9L, Hematocrit 24.6L, Mean Corpuscular Volume 91, Mean Corpuscular Hemoglobin 29.4, Mean Corpuscular Hemoglobin Concent 32.2, Red Cell Distribution Width 16.2H, Platelet Count 216, Mean Platelet Volume 7.7, Neutrophils (%) (Auto) , Lymphocytes (%) (Auto) , Monocytes (%) (Auto) , Eosinophils (%) (Auto) , Basophils (%) (Auto) , Differential Total Cells Counted 100, Neutrophils % (Manual) 65, Lymphocytes % (Manual) 21, Monocytes % (Manual) 4, Eosinophils % (Manual) 10H, Basophils % (Manual) 0, Band Neutrophils 0, Platelet Estimate Adequate, Platelet Morphology Normal, Hypochromasia 2+, Anisocytosis 2+, Sodium Level 134L, Potassium Level 4.8, Chloride Level 98, Carbon Dioxide Level 30, Anion Gap 6, Blood Urea Nitrogen 76H, Creatinine 3.9H, Estimat Glomerular Filtration Rate 19.8, Glucose Level 119H, Calcium Level 8.0L, Phosphorus Level 3.8, Magnesium Level 2.5H, Total Bilirubin 0.4, Aspartate Amino Transf (AST/SGOT) 35, Alanine Aminotransferase (ALT/SGPT) 53, Alkaline Phosphatase 324H, Total Protein 7.7, Albumin 1.4L, Globulin 6.3, Albumin/Globulin Ratio 0.2L 07/17/20 05:47: POC Whole Blood Glucose 147H Current Medications Medications (Trade) Dose Ordered Sig/Maryjane Route PRN Reason Start Time Stop Time Status Last Admin Dose Admin Acetaminophen (Tylenol) 650 mg Q4H PRN GT Mild Pain (Pain Scale 1-3) 06/18/20 23:00 08/16/20 22:59 07/12/20 13:22 Aluminum Hydroxide (Amphojel) 1,920 mg Q6H GT 06/17/20 10:00 07/31/20 09:59 07/17/20 09:03 Ascorbic Acid (Vitamin C) 500 mg DAILY GT 07/01/20 09:00 07/31/20 08:59 07/17/20 08:05 Chlorhexidine Gluconate (Inés-Hex 2%) 1 applic DAILY@2000 TOPIC 06/21/20 20:00 09/19/20 19:59 07/16/20 20:30 Dextrose (Dextrose 50%) 25 ml Q30M PRN IV Hypoglycemia 06/28/20 18:30 09/26/20 18:29 Dextrose (Dextrose 50%) 50 ml Q30M PRN IV Hypoglycemia 06/28/20 18:30 09/26/20 18:29 Epoetin Bonilla (Epoetin Bonilla(ESRD on dialysis)) 10,000 unit TUE-TUE-TUE SUBQ 07/02/20 21:00 09/16/20 20:59 07/16/20 20:30 Haloperidol Lactate (Haldol) 5 mg Q6H PRN IM Agitation 06/21/20 23:15 08/05/20 23:14 06/25/20 18:17 Insulin Aspart (NovoLOG) EVERY 6 HOURS SUBQ 06/29/20 00:00 09/27/20 00:00 07/17/20 05:50 Lansoprazole (Prevacid) 30 mg Q12HR GT 06/30/20 21:00 07/30/20 20:59 07/17/20 08:05 Levothyroxine Sodium (Synthroid) 88 mcg DAILY@0630 GT 07/03/20 06:30 08/02/20 06:29 07/17/20 06:33 Vancomycin HCl (Vanco pharmacy to dose) 1 ea DAILY PRN MISC Per rx protocol 06/27/20 11:30 07/18/20 23:59 Assessment/Plan Problems: (1) Acute respiratory failure Assessment/Plan IMPRESSION: 1. Chronic respiratory failure. 2. Hypoxemia. - AC 18, TV 500, FiO2 40, PEEP 5 3. Respiratory acidosis. 4. Anemia. 5. Leukocytosis. 6. DVT 7. S/p code blue 06/19/20 DISCUSSION: The patient's x-ray is markedly abnormal with bilateral infiltrates. suspect he has pulmonary fibrosis. Latest CXR is unchanged to slightly improved COVID 19 pcr and antigen both negative No anticoagulation for DVT due to anemia S/p IVC filter placement Continue assist-control mechanical ventilation; currently FiO2 40%; SaO2 100%, broad-spectrum antibiotics. Transfusion as needed. PEEP 5 S/p HD Will continue to decrease FiO2 as tolerated S/p permacath dc planning- awaiting response from insurance The time spent for this case was approximately 31 minutes Sylvester Garcia MD Jul 17, 2020 12:58
--- NOTE | 2020-07-17 13:44 | Nephrology Progress Note ---
Assessment/Plan Problem List: (1) KERRI (acute kidney injury) (2) Acute respiratory failure (3) Chronic respiratory failure (4) Anemia (5) Hyperkalemia Assessment Acute on chronic renal failure Anemia Respiratory failure acute on chronic Respiratory acidosis and hypoxia Hyperkalemia Plan July 17: Last dialyzed July 15. Today's labs reviewed. Continue to monitor renal parameters and dialyze as needed. July 16: Dialyzed yesterday. Will check lab tomorrow. Dialysis as needed. Continue per consultants. July 15: Due for dialysis today. Discussed with RN. Check labs tomorrow. July 14: Dialyzed July 12. Next dialysis July 15. Continue per current management. July 13: Dialyzed yesterday. Due for dialysis tomorrow. No labs drawn today. Continue same management. July 12: Patient was dialyzed this morning. Labs reviewed. Discussed with RN. Patient remained stable for discharge from renal standpoint of view and to be continued on dialysis upon transfer. July 11: Last dialyzed July 09. Appears to may need dialysis tomorrow July 12. If discharged to subacute patient will have continued dialysis there. Discussed with machine adjuster leader case trim and PMD. July 10: Last dialyzed July 09. Labs reviewed. Hyponatremia noted. Continue to monitor electrolytes and renal parameters. Hold off dialysis at this time and monitor renal parameters. Recheck TSH level. Continue per consultants. July 09: Due for dialysis today. Labs reviewed. Medication list reviewed. Continue same treatment plan. July 08: Patient was dialyzed yesterday. Today's labs reviewed. Electrolytes and renal parameters stable. Next dialysis tomorrow. Continue per consultants. July 07: Labs reviewed. Dialysis today. Abnormal electrolytes will be. Discussed with RN. Resolved after dialysis. Continue per consultants July 06: Labs reviewed. Dialyzed July 04. Due for dialysis July 07. Continue per consultants. July 05: Labs reviewed. Dialyzed yesterday. Electrolytes and renal parameters stable. Continue per consultants. Continue dialysis as needed. July 04: Labs reviewed. Due for dialysis today. Continue to monitor electrolytes and hemoglobin hematocrit. Continue per consultants. July 03: Lab reviewed. Will defer dialysis for July 04. Some blood oozing from the catheter site. General surgery to be informed. Electrolytes stable. Continue as is. July 02: Labs reviewed. Due for dialysis tomorrow. Hemoglobin higher. Stable electrolytes. Continue per consultants. July 01: Labs reviewed. Dialyzed yesterday. Patient has a permacath. Continue per consultants. Worsening anemia noted, deferred to loan auditor. June 30: Labs reviewed. Due for dialysis today. Patient appears to be needing hemodialysis for sometimes incoming future. Will arrange for placement of a tunneled catheter. Continue per consultants. Anemia management per loan auditor. June 29: Labs reviewed. Hemoglobin is higher. Next hemodialysis tomorrow June 30. Continue per consultants. June 28: Labs reviewed. Last dialyzed June 26. Hemoglobin remains low. Defer transfusion and work-up to loan auditor. Continue to follow-up renal parameters. June 27: Labs reviewed. Dialyzed yesterday. Hemoglobin low. Due for transfusion. Continue to monitor renal parameters and hemoglobin and hematocrit. June 26: Labs reviewed. Due for dialysis today. Continue per consultants. Continue to monitor liver enzymes. June 25: Labs reviewed. Will dialyze tomorrow. Continue per consultants. Check liver function enzymes. June 24: Dialyzed yesterday. Labs reviewed. Medication list reviewed. Liver enzymes remains elevated. Continue to monitor electrolytes renal parameters and LFTs. Hemodialysis in a.m. if needed. June 23: Patient will be dialyzed today again. Labs reviewed. Serum creatinine higher. Elevated liver enzymes persist. Patient full code. Continue per consultants. June 22: Patient dialyzed yesterday. Labs reviewed. Liver function tests and enzymes are elevated. Continue to monitor renal parameters and LFTs. Continue per consultants. Patient full code. June 21: Patient due for dialysis today. Labs and medication list reviewed. Discussed with RN. Continue to monitor renal parameters. June 20: Patient had an episode of bradycardia last night. Serum creatinine rising. Patient continues to have respiratory acidosis. Discussed with MAX Bond. Will order non tunneled dialysis catheter placement for initiation of dialysis treatment due to acute renal failure. Patient remains full code. I favor comfort care if bioethics consultation is sought and physicians on the team agreeable. June 19: No CHEM panel today. Low hemoglobin as of yesterday's lab results. Anemia management per Dr. Cueva. Continue to monitor renal parameters. June 18: Labs are reviewed. Hemoglobin lower. Creatinine higher. ABG not done yet. Patient full code. Continue per consultants. June 17: Labs reviewed. Hemoglobin low. Creatinine up to 3. Phosphorus levels elevated. Will start Amphojel via GT tube as a phosphorus binder. Monitor renal parameters. Check ABG. Continue per consultants. June 16: Labs reviewed. Serum creatinine mariana to 2.6. Abnormal electrolytes now normalized. Continue to monitor renal parameters and avoid nephrotoxic's. Continue to adjust pulmonary status as possible. June 15: ABG pH of 7.1. 2D echo suggestive of ejection fraction of 50%. Labs reviewed. Serum creatinine mariana. Will hold IV Lasix. Will give Kayexalate for high potassium and 1 amp of sodium bicarb. Albumin IV bolus given. Continue per consultants. Continue to monitor renal parameters. Kidney ultrasound ordered. June 14: As follow Pulmonary evaluation Sparrow catheter Hold IV fluid IV fluid, until 2D echo results available Kayexalate for high potassium IV Protonix 2D echocardiogram Anemia work-up More labs ordered Subjective ROS Limited/Unobtainable: Yes Objective Objective Last 24 Hour Vital Signs Date Time Temp Pulse Resp B/P (MAP) Pulse Ox O2 Delivery O2 Flow Rate FiO2 07/17/20 12:00 35 07/17/20 12:00 Mechanical Ventilator 07/17/20 12:00 97.0 71 22 150/86 (107) 95 07/17/20 11:46 71 07/17/20 08:00 Mechanical Ventilator 07/17/20 08:00 35 07/17/20 08:00 97.7 72 22 132/82 (99) 96 07/17/20 07:44 74 07/17/20 07:35 73 23 35 07/17/20 04:36 97.7 72 22 124/84 (97) 95 07/17/20 04:00 35 07/17/20 04:00 Mechanical Ventilator 07/17/20 04:00 71 07/17/20 03:10 72 21 35 07/17/20 00:00 77 07/17/20 00:00 97.5 72 20 134/75 (94) 96 07/17/20 00:00 35 07/17/20 00:00 Mechanical Ventilator 07/16/20 23:15 72 18 35 07/16/20 20:00 76 07/16/20 20:00 35 07/16/20 20:00 Mechanical Ventilator 07/16/20 20:00 97.7 77 21 127/78 (94) 94 07/16/20 19:07 77 21 35 07/16/20 16:00 35 07/16/20 16:00 75 07/16/20 16:00 Mechanical Ventilator 07/16/20 16:00 97.0 76 20 127/78 (94) 94 07/16/20 15:25 75 23 35 Intake and Output 07/16/20 07/17/20 19:00 07:00 Intake Total 804 ml 570 ml Output Total 300 ml 110 ml Balance 504 ml 460 ml Free Water 300 ml 150 ml Tube Feeding 504 ml 420 ml Output Urine Total 200 ml 10 ml Stool Total 100 ml 100 ml Current Medications Medications (Trade) Dose Ordered Sig/Maryjane Route PRN Reason Start Time Stop Time Status Last Admin Dose Admin Acetaminophen (Tylenol) 650 mg Q4H PRN GT Mild Pain (Pain Scale 1-3) 06/18/20 23:00 08/16/20 22:59 07/12/20 13:22 Aluminum Hydroxide (Amphojel) 1,920 mg Q6H GT 06/17/20 10:00 07/31/20 09:59 07/17/20 09:03 Ascorbic Acid (Vitamin C) 500 mg DAILY GT 07/01/20 09:00 07/31/20 08:59 07/17/20 08:05 Chlorhexidine Gluconate (Inés-Hex 2%) 1 applic DAILY@1999 TOPIC 06/21/20 20:00 09/19/20 19:59 07/16/20 20:30 Dextrose (Dextrose 50%) 25 ml Q30M PRN IV Hypoglycemia 06/28/20 18:30 09/26/20 18:29 Dextrose (Dextrose 50%) 50 ml Q30M PRN IV Hypoglycemia 06/28/20 18:30 09/26/20 18:29 Epoetin Bonilla (Epoetin Bonilla(ESRD on dialysis)) 10,000 unit TUE-TUE-TUE SUBQ 07/02/20 21:00 09/16/20 20:59 07/16/20 20:30 Haloperidol Lactate (Haldol) 5 mg Q6H PRN IM Agitation 06/21/20 23:15 08/05/20 23:14 06/25/20 18:17 Insulin Aspart (NovoLOG) EVERY 6 HOURS SUBQ 06/29/20 00:00 09/27/20 00:00 07/17/20 05:50 Lansoprazole (Prevacid) 30 mg Q12HR GT 06/30/20 21:00 07/30/20 20:59 07/17/20 08:05 Levothyroxine Sodium (Synthroid) 88 mcg DAILY@0630 GT 07/03/20 06:30 08/02/20 06:29 07/17/20 06:33 Vancomycin HCl ([facility] pharmacy to dose) 1 ea DAILY PRN MISC Per rx protocol 06/27/20 11:30 07/18/20 23:59 Laboratory Tests 07/16/20 16:40: POC Whole Blood Glucose 145H 07/17/20 00:00: POC Whole Blood Glucose 131H 07/17/20 03:08: White Blood Count 6.5, Red Blood Count 2.70L, Hemoglobin 7.9L, Hematocrit 24.6L, Mean Corpuscular Volume 91, Mean Corpuscular Hemoglobin 29.4, Mean Corpuscular Hemoglobin Concent 32.2, Red Cell Distribution Width 16.2H, Platelet Count 216, Mean Platelet Volume 7.7, Neutrophils (%) (Auto) , Lymphocytes (%) (Auto) , Monocytes (%) (Auto) , Eosinophils (%) (Auto) , Basophils (%) (Auto) , Differential Total Cells Counted 100, Neutrophils % (Manual) 65, Lymphocytes % (Manual) 21, Monocytes % (Manual) 4, Eosinophils % (Manual) 10H, Basophils % (Manual) 0, Band Neutrophils 0, Platelet Estimate Adequate, Platelet Morphology Normal, Hypochromasia 2+, Anisocytosis 2+, Sodium Level 134L, Potassium Level 4.8, Chloride Level 98, Carbon Dioxide Level 30, Anion Gap 6, Blood Urea Nitrogen 76H, Creatinine 3.9H, Estimat Glomerular Filtration Rate 19.8, Glucose Level 119H, Calcium Level 8.0L, Phosphorus Level 3.8, Magnesium Level 2.5H, Total Bilirubin 0.4, Aspartate Amino Transf (AST/SGOT) 35, Alanine Aminotransferase (ALT/SGPT) 53, Alkaline Phosphatase 324H, Total Protein 7.7, Albumin 1.4L, Globulin 6.3, Albumin/Globulin Ratio 0.2L 07/17/20 05:47: POC Whole Blood Glucose 147H 07/17/20 12:59: POC Whole Blood Glucose 117H Height (Feet): 5 Height (Inches): 8.00 Weight (Pounds): 143 General Appearance: no apparent distress EENT: other - Trach to vent Cardiovascular: normal rate Respiratory/Chest: decreased breath sounds Abdomen: distended Leonidas Honeycutt MD Jul 17, 2020 13:44
--- NOTE | 2020-07-17 14:26 | Surgery Progress Note ---
Surgery Progress Note Subjective Symptoms: improved, tolerating diet, passing flatus Objective Last 24 Hour Vital Signs Date Time Temp Pulse Resp B/P (MAP) Pulse Ox O2 Delivery O2 Flow Rate FiO2 07/17/20 12:00 35 07/17/20 12:00 Mechanical Ventilator 07/17/20 12:00 97.0 71 22 150/86 (107) 95 07/17/20 11:46 71 07/17/20 11:30 74 23 35 07/17/20 08:00 Mechanical Ventilator 07/17/20 08:00 35 07/17/20 08:00 97.7 72 22 132/82 (99) 96 07/17/20 07:44 74 07/17/20 07:35 73 23 35 07/17/20 04:36 97.7 72 22 124/84 (97) 95 07/17/20 04:00 35 07/17/20 04:00 Mechanical Ventilator 07/17/20 04:00 71 07/17/20 03:10 72 21 35 07/17/20 00:00 77 07/17/20 00:00 97.5 72 20 134/75 (94) 96 07/17/20 00:00 35 07/17/20 00:00 Mechanical Ventilator 07/16/20 23:15 72 18 35 07/16/20 20:00 76 07/16/20 20:00 35 07/16/20 20:00 Mechanical Ventilator 07/16/20 20:00 97.7 77 21 127/78 (94) 94 07/16/20 19:07 77 21 35 07/16/20 16:00 35 07/16/20 16:00 75 07/16/20 16:00 Mechanical Ventilator 07/16/20 16:00 97.0 76 20 127/78 (94) 94 07/16/20 15:25 75 23 35 I&O Intake and Output 07/16/20 07/17/20 19:00 07:00 Intake Total 804 ml 612 ml Output Total 300 ml 110 ml Balance 504 ml 502 ml Free Water 300 ml 150 ml Tube Feeding 504 ml 462 ml Output Urine Total 200 ml 10 ml Stool Total 100 ml 100 ml Dressing: saturated Cardiovascular: RSR Respiratory: decreased breath sounds Abdomen: non-tender, present bowel sounds Extremities: no edema, no tenderness, no cyanosis Laboratory Tests Test 07/16/20 16:40 07/17/20 00:00 07/17/20 03:08 07/17/20 05:47 POC Whole Blood Glucose 145 MG/DL (74-106) H 131 MG/DL (74-106) H 147 MG/DL (74-106) H White Blood Count 6.5 K/UL (4.8-10.8) Red Blood Count 2.70 M/UL (4.70-6.10) L Hemoglobin 7.9 G/DL (14.2-18.0) L Hematocrit 24.6 % (42.0-52.0) L Mean Corpuscular Volume 91 FL (80-99) Mean Corpuscular Hemoglobin 29.4 PG (27.0-31.0) Mean Corpuscular Hemoglobin Concent 32.2 G/DL (32.0-36.0) Red Cell Distribution Width 16.2 % (11.6-14.8) H Platelet Count 216 K/UL (150-450) Mean Platelet Volume 7.7 FL (6.5-10.1) Neutrophils (%) (Auto) % (45.0-75.0) Lymphocytes (%) (Auto) % (20.0-45.0) Monocytes (%) (Auto) % (1.0-10.0) Eosinophils (%) (Auto) % (0.0-3.0) Basophils (%) (Auto) % (0.0-2.0) Differential Total Cells Counted 100 Neutrophils % (Manual) 65 % (45-75) Lymphocytes % (Manual) 21 % (20-45) Monocytes % (Manual) 4 % (1-10) Eosinophils % (Manual) 10 % (0-3) H Basophils % (Manual) 0 % (0-2) Band Neutrophils 0 % (0-8) Platelet Estimate Adequate Platelet Morphology Normal Hypochromasia 2+ Anisocytosis 2+ Sodium Level 134 MMOL/L (136-145) L Potassium Level 4.8 MMOL/L (3.5-5.1) Chloride Level 98 MMOL/L (98-107) Carbon Dioxide Level 30 MMOL/L (21-32) Anion Gap 6 mmol/L (5-15) Blood Urea Nitrogen 76 mg/dL (7-18) H Creatinine 3.9 MG/DL (0.55-1.30) H Estimat Glomerular Filtration Rate 19.8 mL/min (>60) Glucose Level 119 MG/DL (74-106) H Calcium Level 8.0 MG/DL (8.5-10.1) L Phosphorus Level 3.8 MG/DL (2.5-4.9) Magnesium Level 2.5 MG/DL (1.8-2.4) H Total Bilirubin 0.4 MG/DL (0.2-1.0) Aspartate Amino Transf (AST/SGOT) 35 U/L (15-37) Alanine Aminotransferase (ALT/SGPT) 53 U/L (12-78) Alkaline Phosphatase 324 U/L (46-116) H Total Protein 7.7 G/DL (6.4-8.2) Albumin 1.4 G/DL (3.4-5.0) L Globulin 6.3 g/dL Albumin/Globulin Ratio 0.2 (1.0-2.7) L Test 07/17/20 12:59 POC Whole Blood Glucose 117 MG/DL (74-106) H Plan Problems: (1) Leukocytosis Assessment & Plan: 54-year-old male multiple comorbidities admitted for abnormal chest x-ray potentially pneumonia leukocytosis abnormal labs. Patient identified to have a prior left BKA surgical sutures still in place as well as a surgical sacral wound with sutures in place. Considerations of dehiscence being identified and potential etiology of infection. After evaluation unlikely source of infection though the sacral wound was looked to be dehiscing at the inferior aspect. No acute surgical mention at this time We will discussed care plan with PCP Recommend follow-up with initial surgeon considerations of removal of surgical sutures Care plan initiated worsening lft's US ordered ? shayla monitor for bleeding from right chest wall cath change dressings Extensive airspace consolidations at the lung bases consistent with severe multifocal infiltrate. Associated, large bilateral pleural effusions. Evaluation of the abdominal viscera is markedly suboptimal due to poor CT technique and lack of intravenous contrast. No definite hepatic lesion. No definite cholelithiasis. Mild colon wall thickening. The spleen, pancreas, and adrenal glands are not visualized well enough reliable assessment. No definite hydronephrosis. The kidneys are hyperdense, correlate for medical renal disease. No nephrolithiasis. Sparrow catheter within a decompressed urinary bladder. Moderate diverticulosis, without acute diverticulitis. No small bowel obstruction. PEG tube presumably within the stomach. Atherosclerotic calcifications of the aorta. Low-attenuation of the intravascular blood pool, correlate for anemia. IVC filter, incidentally noted. Air within the subcutaneous fat overlying the sacrum with skin thickening, correlate with physical exam for sacral decubitus ulcer. Degenerative changes of the spine. Bilateral pars defects at L5 without anterolisthesis of L5 on S1. IMPRESSION: Extensive airspace consolidations at the lung bases consistent with severe multifocal infiltrate. Associated, large bilateral pleural effusions. Evaluation of the abdominal viscera is markedly suboptimal due to poor CT technique and lack of intravenous contrast. Moderate diverticulosis, without acute diverticulitis. No small bowel obstruction. PEG tube presumably within the stomach. Note, if there is suspicion for colitis consider repeat scan with improved CT technique/intravenous contrast. Mild gallbladder wall thickening without definite evidence of cholelithiasis. Air within the subcutaneous fat overlying the sacrum with skin thickening, correlate with physical exam for sacral decubitus ulcer. Bilateral pars defects at L5. The kidneys are hyperdense, correlate for medical renal disease.. There is prompt uptake within the liver with washout of radiotracer from the liver on subsequent imaging. There is excretion into the biliary ducts. Gallbladder activity is present in a timely fashion indicating patency of the cystic duct. Very scant bowel activity is demonstrated concerning for common bile duct obstruction or sphincter dysfunction. IMPRESSION: No evidence to suggest cholecystitis. Gallbladder activity is present in a timely fashion indicating patency of the cystic duct. Very little radiotracer noted in the small bowel. Correlate with LFTs as a degree of common bile duct obstruction or sphincter dysfunction not excluded. Consider further evaluation with MRCP. (2) Surgical wound dehiscence Assessment & Plan: Patient identified to have a left BKA surgical sutures in place flap looks like it is taken well no signs of infection at this time no signs of seroma hematoma or drainage. Unknown exact length or duration of potential prior left BKA and until then recommend leaving sutures in place as it may be too early though it does look well-healed. If able to obtain prior records we will be happy to remove sutures otherwise will need follow-up with primary surgeon furthermore patient identified to have a surgical wound in the sacral area seems he probably potentially had a stage IV sacral decubitus ulcer that had debridement and primary closure. Fortunately. Sutures are still in place and it looks like the inferior aspect may be slowly dehiscing. There is no significant drainage no foul odor no signs of active infection unknown if bone was palpable prior. Can consider removing surgical sutures but again would recommend obtaining prior records of possible prior to doing so. Also recommend following up with primary surgeon as this may need ongoing continued care. Will follow with recommendations and as information is available. Continue current care plan. Wash wounds daily with normal saline. Apply skin protectant Optifoam dressing. Turn every 2 hours. Offload pressure with pillows and air mattress. Nutritional optimization. Worsening leukocytosis. Patient continues to have dehiscence of the prior primarily closed sacral decubitus ulcer. The sutures are was nearly torn out and the wound is opening and saturating with stool with bowel movements now has rectal tube. Unfortunately I see significant concern given dehiscence and therefore sutures were cut at the bedside and wound immediately opened under some tension. Underlying Vicryl sutures identified. There is some backbleeding some granulation tissue but definitely no take or closure of the stage IV sacral decubitus ulcer that was identified. Nonexcisional debridement done with gauze and jorge layer of slough and biofilm was removed wound was cleaned packing dressings applied. No abscess no purulent drainage unlikely etiology of infection. (3) History of left below knee amputation (4) Malnutrition Assessment & Plan: DAILY ESTIMATED NEEDS: Needs based on Wound, critical care, underweight/ 55.5kg 25-33 (25-35 w/ HD) kcals/kg [id number] ([id number]) total kcals 1.25-2 g protein/kg 69-111 g total protein 25-30 mL/kg 0866-2266 total fluid mLs NUTRITION DIAGNOSIS: * Swallowing difficulty R/T respiratory status as evidenced by pt is trach/vent dep, PEG dep. CURRENT TF: Nepro @ 40ml/hr x24 hrs ENTERAL NUTRITION RECOMMENDATIONS: Nepro @ 40ml/hr x 24 hrs to provide 960ml, 1728kcal, 78g prot, 698ml free water * Maintain current TF * HOB over 30 degrees/ water flush per MD ADDITIONAL RECOMMENDATIONS: * Per SNF: HT=69" [id number] -> rec daily calibrated bedscale wt * Monitor lytes: elev K-> now wnl, phos now low * Wound healing: RANDY BID + Nephrovite 1 tab qdaily * Monitor for bm, last bm 06/19, now 06/24 * W/ HD rec to add Prosource 1 pack qdaily for added 11g pro/day. (5) Anemia (6) KERRI (acute kidney injury) (7) Acute respiratory failure Assessment & Plan: hold on trach change cuff okay vent settings prn abg cxr noted (8) Hyperkalemia (9) Anemia (10) Abnormal laboratory test result (11) Chronic respiratory failure (12) Hyperglycemia (13) Hypothyroidism Azar Mares Jul 17, 2020 14:26
--- NOTE | 2020-07-17 14:31 | NUR ---
NURSE NOTES: Received report from Varun Rn, pt. in bed awake, appears to be A/O X's 3- able to follow simple commands, no signs or symptoms of acute cardiac or respiratory distress noted, bed alarm on, side rails up x's 3 and safety brakes engaged, call light within easy reach, pt. is SR on monitor, appears to be resting comfortably in bed watching television, pt. appears to be tolerating current vent settings well- AC 16, TV 500, Fio2 at 45% and peep of 5- no distress noted, pt. has G tube feeding running Nepro at 42cc/hr- no residual noted, rectal tube and Sparrow both draining to gravity, pt. has Right upper chest Perma cath intact, left hand 24G IV intact and patent-SL, safety measures continued, will continue with plan of care.
--- NOTE | 2020-07-17 14:36 | NUR ---
NURSE HAND-OFF REPORT: Important Events on Shift: Patient Status: Stable Diet: Nepro 42 ml/hr Pending Orders: None Pending Results/Labs:None Pending MD notification:None Latest Vital Signs: Temperature 97.0 , Pulse 71 , B/P 150 /86 , Respiratory Rate 22 , O2 SAT 95 , Mechanical Ventilator, O2 Flow Rate 15.0 . Vital Sign Comment: Stable EKG Rhythm: Sinus Rhythm Rhythm change?: N MD Notified?: Y -Dr. Mcguire and Dr. Ambika BENDER Response: No New Orders Received Latest Santiago Fall Score: 80 Fall Risk: High Risk Safety Measures: Call light Within Reach, Bed Alarm Zone 2, Side Rails Side Rails x2, Bed position Low and Locked. Fall Precautions: Yellow Socks Yellow Gown Door Sign Patient Fall Education Report given to MAX Royal.
--- NOTE | 2020-07-17 14:46 | General Progress Note ---
Subjective ROS Limited/Unobtainable: Yes Allergies: Coded Allergies: No Known Allergies (Unverified , 06/13/20) Subjective events noted interval notes reviewed glucose values are stable Item Value Date Time Bedside Blood Glucose 117 mg/dl 07/17/20 1200 Bedside Blood Glucose 147 mg/dl H 07/17/20 0600 Bedside Blood Glucose 131 mg/dl H 07/17/20 0000 Bedside Blood Glucose 145 mg/dl H 07/16/20 1800 Bedside Blood Glucose 171 mg/dl H 07/16/20 1221 Objective Last 24 Hour Vital Signs Date Time Temp Pulse Resp B/P (MAP) Pulse Ox O2 Delivery O2 Flow Rate FiO2 07/17/20 12:00 35 07/17/20 12:00 Mechanical Ventilator 07/17/20 12:00 97.0 71 22 150/86 (107) 95 07/17/20 11:46 71 07/17/20 11:30 74 23 35 07/17/20 08:00 Mechanical Ventilator 07/17/20 08:00 35 07/17/20 08:00 97.7 72 22 132/82 (99) 96 07/17/20 07:44 74 07/17/20 07:35 73 23 35 07/17/20 04:36 97.7 72 22 124/84 (97) 95 07/17/20 04:00 35 07/17/20 04:00 Mechanical Ventilator 07/17/20 04:00 71 07/17/20 03:10 72 21 35 07/17/20 00:00 77 07/17/20 00:00 97.5 72 20 134/75 (94) 96 07/17/20 00:00 35 07/17/20 00:00 Mechanical Ventilator 07/16/20 23:15 72 18 35 07/16/20 20:00 76 07/16/20 20:00 35 07/16/20 20:00 Mechanical Ventilator 07/16/20 20:00 97.7 77 21 127/78 (94) 94 07/16/20 19:07 77 21 35 07/16/20 16:00 35 07/16/20 16:00 75 07/16/20 16:00 Mechanical Ventilator 07/16/20 16:00 97.0 76 20 127/78 (94) 94 07/16/20 15:25 75 23 35 Intake and Output 07/16/20 07/17/20 19:00 07:00 Intake Total 804 ml 612 ml Output Total 300 ml 110 ml Balance 504 ml 502 ml Free Water 300 ml 150 ml Tube Feeding 504 ml 462 ml Output Urine Total 200 ml 10 ml Stool Total 100 ml 100 ml Laboratory Tests 07/16/20 16:40: POC Whole Blood Glucose 145H 07/17/20 00:00: POC Whole Blood Glucose 131H 07/17/20 03:08: White Blood Count 6.5, Red Blood Count 2.70L, Hemoglobin 7.9L, Hematocrit 24.6L, Mean Corpuscular Volume 91, Mean Corpuscular Hemoglobin 29.4, Mean Corpuscular Hemoglobin Concent 32.2, Red Cell Distribution Width 16.2H, Platelet Count 216, Mean Platelet Volume 7.7, Neutrophils (%) (Auto) , Lymphocytes (%) (Auto) , Monocytes (%) (Auto) , Eosinophils (%) (Auto) , Basophils (%) (Auto) , Differential Total Cells Counted 100, Neutrophils % (Manual) 65, Lymphocytes % (Manual) 21, Monocytes % (Manual) 4, Eosinophils % (Manual) 10H, Basophils % (Manual) 0, Band Neutrophils 0, Platelet Estimate Adequate, Platelet Morphology Normal, Hypochromasia 2+, Anisocytosis 2+, Sodium Level 134L, Potassium Level 4.8, Chloride Level 98, Carbon Dioxide Level 30, Anion Gap 6, Blood Urea Nitrogen 76H, Creatinine 3.9H, Estimat Glomerular Filtration Rate 19.8, Glucose Level 119H, Calcium Level 8.0L, Phosphorus Level 3.8, Magnesium Level 2.5H, Total Bilirubin 0.4, Aspartate Amino Transf (AST/SGOT) 35, Alanine Aminotransferase (ALT/SGPT) 53, Alkaline Phosphatase 324H, Total Protein 7.7, Albumin 1.4L, Globulin 6.3, Albumin/Globulin Ratio 0.2L 07/17/20 05:47: POC Whole Blood Glucose 147H 07/17/20 12:59: POC Whole Blood Glucose 117H Height (Feet): 5 Height (Inches): 8.00 Weight (Pounds): 143 General Appearance: no apparent distress Cardiovascular: normal rate Respiratory/Chest: decreased breath sounds Abdomen: normal bowel sounds Objective Current Medications Medications (Trade) Dose Ordered Sig/Maryjane Route PRN Reason Start Time Stop Time Status Last Admin Dose Admin Acetaminophen (Tylenol) 650 mg Q4H PRN GT Mild Pain (Pain Scale 1-3) 06/18/20 23:00 08/16/20 22:59 07/12/20 13:22 Aluminum Hydroxide (Amphojel) 1,920 mg Q6H GT 06/17/20 10:00 07/31/20 09:59 07/17/20 09:03 Ascorbic Acid (Vitamin C) 500 mg DAILY GT 07/01/20 09:00 07/31/20 08:59 07/17/20 08:05 Chlorhexidine Gluconate (Inés-Hex 2%) 1 applic DAILY@1999 TOPIC 06/21/20 20:00 09/19/20 19:59 07/16/20 20:30 Dextrose (Dextrose 50%) 25 ml Q30M PRN IV Hypoglycemia 06/28/20 18:30 09/26/20 18:29 Dextrose (Dextrose 50%) 50 ml Q30M PRN IV Hypoglycemia 06/28/20 18:30 09/26/20 18:29 Epoetin Bonilla (Epoetin Bonilla(ESRD on dialysis)) 10,000 unit TUE-TUE-TUE SUBQ 07/02/20 21:00 09/16/20 20:59 07/16/20 20:30 Haloperidol Lactate (Haldol) 5 mg Q6H PRN IM Agitation 06/21/20 23:15 08/05/20 23:14 06/25/20 18:17 Insulin Aspart (NovoLOG) EVERY 6 HOURS SUBQ 06/29/20 00:00 09/27/20 00:00 07/17/20 05:50 Lansoprazole (Prevacid) 30 mg Q12HR GT 06/30/20 21:00 07/30/20 20:59 07/17/20 08:05 Levothyroxine Sodium (Synthroid) 88 mcg DAILY@0630 GT 07/03/20 06:30 08/02/20 06:29 07/17/20 06:33 Vancomycin HCl (Vanco pharmacy to dose) 1 ea DAILY PRN MISC Per rx protocol 06/27/20 11:30 07/18/20 23:59 Assessment/Plan Problem List: (1) History of left below knee amputation ICD Codes: Z89.512 - Acquired absence of left leg below knee SNOMED: 069609526, 233273264914045 (2) Surgical wound dehiscence ICD Codes: T81.31XA - Disruption of external operation (surgical) wound, not elsewhere classified, initial encounter SNOMED: 41156129 (3) Hyperkalemia ICD Codes: E87.5 - Hyperkalemia SNOMED: 24028282 (4) Acute respiratory failure ICD Codes: J96.00 - Acute respiratory failure, unspecified whether with hypoxia or hypercapnia SNOMED: 78633870 Qualifiers: Qualified Codes: J96.02 - Acute respiratory failure with hypercapnia (5) Hypothyroidism ICD Codes: E03.9 - Hypothyroidism, unspecified SNOMED: 80269658 (6) Hyperglycemia ICD Codes: R73.9 - Hyperglycemia, unspecified SNOMED: 17976679 Status: progressing Assessment/Plan: continue Levothyroxine 88 mcg daily - TSH improving repeat thyroid function in 1-2 weeks continue glucose monitoring Davy Ramos MD Jul 17, 2020 14:46
[2020-07-17 16:00] VITALS: BP 152/76
--- NOTE | 2020-07-17 16:59 | NUR ---
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
--- NOTE | 2020-07-17 17:00 | NUR ---
NURSE NOTES: pt. refusing bed bath and oral- asked pt. several times for a bath- pt. continues to refuse.
--- NOTE | 2020-07-17 17:14 | NUR ---
INSURANCE CLINICALS AND REVIEW FAXED TO [facility] [phone]
--- NOTE | 2020-07-17 18:56 | NUR ---
NURSE HAND-OFF REPORT: Important Events on Shift:NONE Patient Status: stable Diet: Nepro Pending Orders: Pending Results/Labs: Pending MD notification: Latest Vital Signs: Temperature 97.6 , Pulse 72 , B/P 152 /76 , Respiratory Rate 22 , O2 SAT 96 , Mechanical Ventilator, O2 Flow Rate 15.0 . Vital Sign Comment: EKG Rhythm: Sinus Rhythm Rhythm change?: N MD Notified?: MD Response: Latest Santiago Fall Score: 80 Fall Risk: High Risk Safety Measures: Call light Within Reach, Bed Alarm Zone 2, Side Rails Side Rails x2, Bed position Low and Locked. Fall Precautions: Yellow Socks Yellow Gown Door Sign Patient Fall Education Report given to MAULIK, RN, pt. remains stable and no signs of distress noted.
--- NOTE | 2020-07-17 19:20 | NUR ---
NURSE NOTES: Receive report from MAX Gracia. Pt awake in bed, eyes open and watching tv, follows commands, afebrile and no respiratory distress noted. trache to vent shiley 8, AC 16, Tidal volume 500, Fi O2 45%, P5 saturating at 100%. On Nephro 42ml/hr via GT infusing well without and sediments and residual. PT tolerating well. With Right IJ non tunneled dialysis catheter intact, asymptomatic. Dressing is intact, dry and clean.With left hand 22g iv line intact, patent and asymptomatic. with Sparrow catheter to urine bag draining well with dark gerard yellow. HOB elevated. needs were attended. Call light within reach. Bed rails are up and wheels are locked. Bed alarm is on. continue plan of care.
[2020-07-17 20:00] VITALS: BP 133/94
[2020-07-17] MEDS: Dyna-Hex 2% Top Sol 2oz TOPIC SCH (21:26)
[2020-07-18] VITALS: BP 139/89
--- NOTE | 2020-07-18 01:00 | NUR ---
NURSE NOTES: Pt awake in bed . watching tv with blanket on. no respiratory distress noted. Continue to monitor the patient.
[2020-07-18 04:00] VITALS: BP 139/90
[2020-07-18] MEDS: Aluminum Hydroxide Gel Susp 15ml GT SCH ×4 (04:41→21:45)
[2020-07-18 05:27] LABS: ALBUMIN 1.4 G/DL (3.4-5.0); ALBUMIN/GLOBULIN RATIO 0.2 (1.0-2.7); BILIRUBIN,TOTAL 0.3 MG/DL (0.2-1.0); CALCIUM 8.2 MG/DL (8.5-10.1); CREATININE 4.4 MG/DL (0.55-1.30); PHOSPHORUS 3.9 MG/DL (2.5-4.9); POTASSIUM 5.1 MMOL/L (3.5-5.1)
[2020-07-18] MEDS: NovoLOG Insulin Flexpen SUBQ SCH ×3 (06:19→17:20)
[2020-07-18 06:22] LABS: BASOPHILS % (AUTO) 0.8 % (0.0-2.0); EOSINOPHILS % (AUTO) 9.2 % (0.0-3.0); HEMATOCRIT 25.1 % (42.0-52.0); HEMOGLOBIN 8.1 G/DL (14.2-18.0); LYMPHOCYTES % (AUTO) 13.4 % (20.0-45.0); MEAN CORPUSCULAR VOLUME 90 FL (80-99); MONOCYTES % (AUTO) 10.5 % (1.0-10.0); NEUTROPHILS % (AUTO) 66.1 % (45.0-75.0); PLATELET COUNT 213 K/UL (150-450); RED BLOOD COUNT 2.78 M/UL (4.70-6.10); RED CELL DISTRIBUTION WIDTH 15.5 % (11.6-14.8); WHITE BLOOD COUNT 6.8 K/UL (4.8-10.8)
--- NOTE | 2020-07-18 06:56 | General Progress Note ---
Subjective ROS Limited/Unobtainable: Yes Allergies: Coded Allergies: No Known Allergies (Unverified , 06/13/20) Subjective events noted interval notes reviewed glucose values are stable Item Value Date Time Bedside Blood Glucose 147 mg/dl H 07/18/20 0619 Bedside Blood Glucose 128 mg/dl H 07/18/20 0000 Bedside Blood Glucose 135 mg/dl H 07/17/20 1729 Bedside Blood Glucose 117 mg/dl 07/17/20 1200 Bedside Blood Glucose 147 mg/dl H 07/17/20 0600 Bedside Blood Glucose 131 mg/dl H 07/17/20 0000 Objective Last 24 Hour Vital Signs Date Time Temp Pulse Resp B/P (MAP) Pulse Ox O2 Delivery O2 Flow Rate FiO2 07/18/20 04:00 40 07/18/20 04:00 Mechanical Ventilator 07/18/20 04:00 97.7 76 21 139/90 (106) 98 07/18/20 03:52 71 07/18/20 03:15 72 23 40 07/18/20 00:00 97.3 72 21 139/89 (106) 98 07/18/20 00:00 Mechanical Ventilator 07/17/20 23:40 72 07/17/20 23:14 71 16 40 07/17/20 20:00 40 07/17/20 20:00 97.3 73 22 133/94 (107) 96 07/17/20 20:00 Mechanical Ventilator 07/17/20 19:34 71 07/17/20 19:19 72 22 40 07/17/20 16:00 97.6 72 22 152/76 (101) 96 07/17/20 16:00 35 07/17/20 16:00 Mechanical Ventilator 07/17/20 15:45 72 20 35 07/17/20 15:28 70 07/17/20 12:00 35 07/17/20 12:00 Mechanical Ventilator 07/17/20 12:00 97.0 71 22 150/86 (107) 95 07/17/20 11:46 71 07/17/20 11:30 74 23 35 07/17/20 08:00 Mechanical Ventilator 07/17/20 08:00 35 07/17/20 08:00 97.7 72 22 132/82 (99) 96 07/17/20 07:44 74 07/17/20 07:35 73 23 35 Intake and Output 07/17/20 07/18/20 19:00 07:00 Intake Total 662 ml 198 ml Output Total 225 ml Balance 437 ml 198 ml Free Water 200 ml 30 ml Tube Feeding 462 ml 168 ml Output Urine Total 175 ml Stool Total 50 ml Laboratory Tests 07/17/20 12:59: POC Whole Blood Glucose 117H 07/17/20 16:47: POC Whole Blood Glucose [Pending] 07/17/20 23:16: POC Whole Blood Glucose 128H 07/18/20 03:10: White Blood Count 6.8, Red Blood Count 2.78L, Hemoglobin 8.1L, Hematocrit 25.1L, Mean Corpuscular Volume 90, Mean Corpuscular Hemoglobin 29.0, Mean Corpuscular Hemoglobin Concent 32.2, Red Cell Distribution Width 15.5H, Platelet Count 213, Mean Platelet Volume 7.8, Neutrophils (%) (Auto) 66.1, Lymphocytes (%) (Auto) 13.4L, Monocytes (%) (Auto) 10.5H, Eosinophils (%) (Auto) 9.2H, Basophils (%) (Auto) 0.8, Sodium Level 130L, Potassium Level 5.1, Chloride Level 97L, Carbon Dioxide Level 30, Anion Gap 3L, Blood Urea Nitrogen 84H, Creatinine 4.4H, Estimat Glomerular Filtration Rate 17.1, Glucose Level 162H, Calcium Level 8.2L, Phosphorus Level 3.9, Magnesium Level 2.8H, Total Bilirubin 0.3, Aspartate Amino Transf (AST/SGOT) 51H, Alanine Aminotransferase (ALT/SGPT) 55, Alkaline Phosphatase 331H, Total Protein 7.6, Albumin 1.4L, Globulin 6.2, Albumin/Globulin Ratio 0.2L 07/18/20 06:03: POC Whole Blood Glucose 147H Height (Feet): 5 Height (Inches): 8.00 Weight (Pounds): 143 General Appearance: no apparent distress Cardiovascular: normal rate Respiratory/Chest: decreased breath sounds Abdomen: normal bowel sounds Objective Current Medications Medications (Trade) Dose Ordered Sig/Maryjane Route PRN Reason Start Time Stop Time Status Last Admin Dose Admin Acetaminophen (Tylenol) 650 mg Q4H PRN GT Mild Pain (Pain Scale 1-3) 06/18/20 23:00 08/16/20 22:59 07/12/20 13:22 Aluminum Hydroxide (Amphojel) 1,920 mg Q6H GT 06/17/20 10:00 07/31/20 09:59 07/18/20 04:41 Ascorbic Acid (Vitamin C) 500 mg DAILY GT 07/01/20 09:00 07/31/20 08:59 07/17/20 08:05 Chlorhexidine Gluconate (Inés-Hex 2%) 1 applic DAILY@1999 TOPIC 06/21/20 20:00 09/19/20 19:59 07/17/20 21:26 Dextrose (Dextrose 50%) 25 ml Q30M PRN IV Hypoglycemia 06/28/20 18:30 09/26/20 18:29 Dextrose (Dextrose 50%) 50 ml Q30M PRN IV Hypoglycemia 06/28/20 18:30 09/26/20 18:29 Epoetin Bonilla (Epoetin Bonilla(ESRD on dialysis)) 10,000 unit TUE-TUE-TUE SUBQ 07/02/20 21:00 09/16/20 20:59 07/16/20 20:30 Haloperidol Lactate (Haldol) 5 mg Q6H PRN IM Agitation 06/21/20 23:15 08/05/20 23:14 06/25/20 18:17 Insulin Aspart (NovoLOG) EVERY 6 HOURS SUBQ 06/29/20 00:00 09/27/20 00:00 07/18/20 06:19 Lansoprazole (Prevacid) 30 mg Q12HR GT 06/30/20 21:00 07/30/20 20:59 07/17/20 21:26 Levothyroxine Sodium (Synthroid) 88 mcg DAILY@0630 GT 07/03/20 06:30 08/02/20 06:29 07/18/20 06:31 Vancomycin HCl (Vanco pharmacy to dose) 1 ea DAILY PRN MISC Per rx protocol 06/27/20 11:30 07/18/20 23:59 Assessment/Plan Problem List: (1) History of left below knee amputation ICD Codes: Z89.512 - Acquired absence of left leg below knee SNOMED: 521907382, 973292803302309 (2) Surgical wound dehiscence ICD Codes: T81.31XA - Disruption of external operation (surgical) wound, not elsewhere classified, initial encounter SNOMED: 95503377 (3) Hyperkalemia ICD Codes: E87.5 - Hyperkalemia SNOMED: 46243495 (4) Acute respiratory failure ICD Codes: J96.00 - Acute respiratory failure, unspecified whether with hypoxia or hypercapnia SNOMED: 89304091 Qualifiers: Qualified Codes: J96.02 - Acute respiratory failure with hypercapnia (5) Hypothyroidism ICD Codes: E03.9 - Hypothyroidism, unspecified SNOMED: 58981651 (6) Hyperglycemia ICD Codes: R73.9 - Hyperglycemia, unspecified SNOMED: 83348718 Status: progressing Assessment/Plan: continue Levothyroxine 88 mcg daily - TSH improving repeat thyroid function in 1-2 weeks continue glucose monitoring Davy Raoms MD Jul 18, 2020 06:56
--- NOTE | 2020-07-18 07:28 | NUR ---
NURSE NOTES: Received report from MAULIK, Rn, pt. in bed awake, A/O X's 3- able to follow commands, no signs or symptoms of acute cardiac or respiratory distress noted, bed alarm on, side rails up x's 3 and safety brakes engaged, call light within easy reach, pt. is SR on monitor, appears to be resting comfortably in bed watching television, pt. appears to be tolerating current vent settings well- AC 16, TV 500, Fio2 at 40% and peep of 5- no distress noted, pt. has G tube feeding running Nepro at 42cc/hr- no residual noted, rectal tube and Sparrow both draining to gravity, pt. has Right upper chest Perma cath intact, left hand 24G IV intact and patent-SL, safety measures continued, will continue with plan of care.
[2020-07-18 08:00] VITALS: BP 148/69
[2020-07-18] MEDS: Ascorbic Acid 500mg tab GT SCH (08:36)
--- NOTE | 2020-07-18 09:47 | NUR ---
RD ASSESSMENT & RECOMMENDATIONS SEE CARE ACTIVITY FOR COMPLETE ASSESSMENT DAILY ESTIMATED NEEDS: Needs based on Wound, critical care, underweight/ 55.5kg 25-35 w/ HD kcals/kg 8643-3378 total kcals 1.25-2 g protein/kg 69-111 g total protein 25-30 mL/kg 5267-4946 total fluid mLs NUTRITION DIAGNOSIS: * Swallowing difficulty R/T respiratory status as evidenced by pt is trach/vent dep, PEG dep. CURRENT TF:Nepro @42 ml x 22 hrs (held for Synthroid) + PS BID ENTERAL NUTRITION RECOMMENDATIONS: Nepro @ 45ml/hr x 22 hrs (On Synthroid) + Prosource 1pkt BID to provide 960ml, 1728kcal, 78g +22g prot, 698ml free water * Maintain TF as tolerated * Prosource 1pkt BID to better meet protein needs(additional 22g prot) * HOB over 30 degrees/ water flush per MD ADDITIONAL RECOMMENDATIONS: * Per SNF: HT=69" IJ=018ixi -> rec daily calibrated bedscale wt * Monitor lytes: elev K-> now on nepro, K is wnl * Wound healing: RANDY BID + Nephrovite 1 tab qdaily * Probiotics for diarrhea . .
--- NOTE | 2020-07-18 10:37 | NUR ---
CASE MANAGEMENT:REVIEW SI;RESP FAILURE, TRACH/VENT SUPPORT, RENAL FAILURE. 98.1 76 23 148/69 98% TRACH/VENT AC 16 TV 500 PEEP 5 FIO2 40% H/H 8.1/25.1 NA 130 BUN 84 CR 4.4 BG 162 MAG 2.8 AST N51 ALP 331 ALB 1.4 IS;EPOETIN ALEXX SQ M/W/F PREVACID GT Q12 INSULIN NOVOLOG SQ Q6 VIT C GT QD KALYN STATUS DCP;TO [facility] PENDING [facility] ACCEPTANCE
--- NOTE | 2020-07-18 10:50 | Infectious Diseases Prog Note ---
Assessment/Plan Assessment/Plan IMPRESSION: Pneumonia with Pseudomonas & Providencia treated Hypothermia COVID19 X 2: negative Ventilator-dependent respiratory failure, Diabetes mellitus type 2, Hypertension, History of left BKA, Hypertension, anemia, Major depression, Pressure ulcer, Elevated transaminase, Hyperkalemia. Anemia R leg DVT s/p IVC filter Sacral osteomyelitis Severe anemia Acute renal failure ESRD Hypercapnic respiratory failure Hematuria Thrombocytopenia Diverticulosis Diarrhea, C. difficile negative RECOMMENDATION: Continue Vancomycin until expiration time today Subjective ROS Limited/Unobtainable: Yes Constitutional: Denies: fever Allergies: Coded Allergies: No Known Allergies (Unverified , 06/13/20) Objective Last 24 Hour Vital Signs Date Time Temp Pulse Resp B/P (MAP) Pulse Ox O2 Delivery O2 Flow Rate FiO2 07/18/20 08:00 40 07/18/20 08:00 Mechanical Ventilator 07/18/20 08:00 98.1 72 20 148/69 (95) 98 07/18/20 08:00 66 07/18/20 04:00 40 07/18/20 04:00 Mechanical Ventilator 07/18/20 04:00 97.7 76 21 139/90 (106) 98 07/18/20 03:52 71 07/18/20 03:15 72 23 40 07/18/20 00:00 97.3 72 21 139/89 (106) 98 07/18/20 00:00 Mechanical Ventilator 07/17/20 23:40 72 07/17/20 23:14 71 16 40 07/17/20 20:00 40 07/17/20 20:00 97.3 73 22 133/94 (107) 96 07/17/20 20:00 Mechanical Ventilator 07/17/20 19:34 71 07/17/20 19:19 72 22 40 07/17/20 16:00 97.6 72 22 152/76 (101) 96 07/17/20 16:00 35 07/17/20 16:00 Mechanical Ventilator 07/17/20 15:45 72 20 35 07/17/20 15:28 70 07/17/20 12:00 35 07/17/20 12:00 Mechanical Ventilator 07/17/20 12:00 97.0 71 22 150/86 (107) 95 07/17/20 11:46 71 07/17/20 11:30 74 23 35 Height (Feet): 5 Height (Inches): 8.00 Weight (Pounds): 143 HEENT: status post trach Respiratory/Chest: lungs clear, other - on ventilator Cardiovascular: normal rate, other - Permacath Abdomen: soft, non tender Extremities: other - edema, left BKA Skin: ulcers, other - sacral Neurologic/Psychiatric: alert, responsive Laboratory Tests Test 07/17/20 12:59 07/17/20 16:47 07/17/20 23:16 07/18/20 03:10 POC Whole Blood Glucose 117 MG/DL (74-106) H Pending 128 MG/DL (74-106) H White Blood Count 6.8 K/UL (4.8-10.8) Red Blood Count 2.78 M/UL (4.70-6.10) L Hemoglobin 8.1 G/DL (14.2-18.0) L Hematocrit 25.1 % (42.0-52.0) L Mean Corpuscular Volume 90 FL (80-99) Mean Corpuscular Hemoglobin 29.0 PG (27.0-31.0) Mean Corpuscular Hemoglobin Concent 32.2 G/DL (32.0-36.0) Red Cell Distribution Width 15.5 % (11.6-14.8) H Platelet Count 213 K/UL (150-450) Mean Platelet Volume 7.8 FL (6.5-10.1) Neutrophils (%) (Auto) 66.1 % (45.0-75.0) Lymphocytes (%) (Auto) 13.4 % (20.0-45.0) L Monocytes (%) (Auto) 10.5 % (1.0-10.0) H Eosinophils (%) (Auto) 9.2 % (0.0-3.0) H Basophils (%) (Auto) 0.8 % (0.0-2.0) Sodium Level 130 MMOL/L (136-145) L Potassium Level 5.1 MMOL/L (3.5-5.1) Chloride Level 97 MMOL/L (98-107) L Carbon Dioxide Level 30 MMOL/L (21-32) Anion Gap 3 mmol/L (5-15) L Blood Urea Nitrogen 84 mg/dL (7-18) H Creatinine 4.4 MG/DL (0.55-1.30) H Estimat Glomerular Filtration Rate 17.1 mL/min (>60) Glucose Level 162 MG/DL (74-106) H Calcium Level 8.2 MG/DL (8.5-10.1) L Phosphorus Level 3.9 MG/DL (2.5-4.9) Magnesium Level 2.8 MG/DL (1.8-2.4) H Total Bilirubin 0.3 MG/DL (0.2-1.0) Aspartate Amino Transf (AST/SGOT) 51 U/L (15-37) H Alanine Aminotransferase (ALT/SGPT) 55 U/L (12-78) Alkaline Phosphatase 331 U/L (46-116) H Total Protein 7.6 G/DL (6.4-8.2) Albumin 1.4 G/DL (3.4-5.0) L Globulin 6.2 g/dL Albumin/Globulin Ratio 0.2 (1.0-2.7) L Test 07/18/20 06:03 07/18/20 08:28 POC Whole Blood Glucose 147 MG/DL (74-106) H Arterial Blood pH 7.282 (7.350-7.450) Arterial Blood Partial Pressure CO2 62.6 mmHg (35.0-45.0) *H Arterial Blood Partial Pressure O2 80.1 mmHg (75.0-100.0) Arterial Blood HCO3 28.9 mmol/L (22.0-26.0) H Arterial Blood Oxygen Saturation 95.1 % (95-100) Arterial Blood Base Excess 1.5 (-2-2) Joe Test Positive Current Medications Medications (Trade) Dose Ordered Sig/Maryjane Route PRN Reason Start Time Stop Time Status Last Admin Dose Admin Acetaminophen (Tylenol) 650 mg Q4H PRN GT Mild Pain (Pain Scale 1-3) 06/18/20 23:00 08/16/20 22:59 07/12/20 13:22 Aluminum Hydroxide (Amphojel) 1,920 mg Q6H GT 06/17/20 10:00 07/31/20 09:59 07/18/20 09:35 Ascorbic Acid (Vitamin C) 500 mg DAILY GT 07/01/20 09:00 07/31/20 08:59 07/18/20 08:36 Chlorhexidine Gluconate (Inés-Hex 2%) 1 applic DAILY@1999 TOPIC 06/21/20 20:00 09/19/20 19:59 07/17/20 21:26 Dextrose (Dextrose 50%) 25 ml Q30M PRN IV Hypoglycemia 06/28/20 18:30 09/26/20 18:29 Dextrose (Dextrose 50%) 50 ml Q30M PRN IV Hypoglycemia 06/28/20 18:30 09/26/20 18:29 Epoetin Bonilla (Epoetin Bonilla(ESRD on dialysis)) 10,000 unit SUBQ 07/02/20 21:00 09/16/20 20:59 07/16/20 20:30 Haloperidol Lactate (Haldol) 5 mg Q6H PRN IM Agitation 06/21/20 23:15 08/05/20 23:14 06/25/20 18:17 Insulin Aspart (NovoLOG) EVERY 6 HOURS SUBQ 06/29/20 00:00 09/27/20 00:00 07/18/20 06:19 Lansoprazole (Prevacid) 30 mg Q12HR GT 06/30/20 21:00 07/30/20 20:59 07/18/20 08:36 Levothyroxine Sodium (Synthroid) 88 mcg DAILY@0630 GT 07/03/20 06:30 08/02/20 06:29 07/18/20 06:31 Vancomycin HCl ([facility] pharmacy to dose) 1 ea DAILY PRN MISC Per rx protocol 06/27/20 11:30 07/18/20 23:59 Paul Amador MD Jul 18, 2020 10:50
--- NOTE | 2020-07-18 11:24 | Nephrology Progress Note ---
Assessment/Plan Problem List: (1) KERRI (acute kidney injury) (2) Acute respiratory failure (3) Chronic respiratory failure (4) Anemia (5) Hyperkalemia Assessment Acute on chronic renal failure Anemia Respiratory failure acute on chronic Respiratory acidosis and hypoxia Hyperkalemia Plan July 18: Will dialyze today. Labs reviewed. Status unchanged. Continue per consultants. July 17: Last dialyzed July 15. Today's labs reviewed. Continue to monitor renal parameters and dialyze as needed. July 16: Dialyzed yesterday. Will check lab tomorrow. Dialysis as needed. Continue per consultants. July 15: Due for dialysis today. Discussed with RN. Check labs tomorrow. July 14: Dialyzed July 12. Next dialysis July 15. Continue per current management. July 13: Dialyzed yesterday. Due for dialysis tomorrow. No labs drawn today. Continue same management. July 12: Patient was dialyzed this morning. Labs reviewed. Discussed with RN. Patient remained stable for discharge from renal standpoint of view and to be continued on dialysis upon transfer. July 11: Last dialyzed July 09. Appears to may need dialysis tomorrow July 12. If discharged to subacute patient will have continued dialysis there. Discussed with case maker and PMD. July 10: Last dialyzed July 09. Labs reviewed. Hyponatremia noted. Continue to monitor electrolytes and renal parameters. Hold off dialysis at this time and monitor renal parameters. Recheck TSH level. Continue per consultants. July 09: Due for dialysis today. Labs reviewed. Medication list reviewed. Continue same treatment plan. July 08: Patient was dialyzed yesterday. Today's labs reviewed. Faith ctrolytes and renal parameters stable. Next dialysis tomorrow. Continue per consultants. July 07: Labs reviewed. Dialysis today. Abnormal electrolytes will be. Discussed with RN. Resolved after dialysis. Continue per consultants July 06: Labs reviewed. Dialyzed July 04. Due for dialysis July 07. Continue per consultants. July 05: Labs reviewed. Dialyzed yesterday. Electrolytes and renal parameters stable. Continue per consultants. Continue dialysis as needed. July 04: Labs reviewed. Due for dialysis today. Continue to monitor electrolytes and hemoglobin hematocrit. Continue per consultants. July 03: Lab reviewed. Will defer dialysis for July 04. Some blood oozing from the catheter site. General surgery to be informed. Electrolytes stable. Continue as is. July 02: Labs reviewed. Due for dialysis tomorrow. Hemoglobin higher. Stable electrolytes. Continue per consultants. July 01: Labs reviewed. Dialyzed yesterday. Patient has a permacath. Cont inue per consultants. Worsening anemia noted, deferred to testing and regulating chief. June 30: Labs reviewed. Due for dialysis today. Patient appears to be needing hemodialysis for sometimes incoming future. Will arrange for placement of a tunneled catheter. Continue per consultants. Anemia management per testing and regulating chief. June 29: Labs reviewed. Hemoglobin is higher. Next hemodialysis tomorrow June 30. Continue per consultants. June 28: Labs reviewed. Last dialyzed June 26. Hemoglobin remains low. Defer transfusion and work-up to testing and regulating chief. Continue to follow-up renal parameters. June 27: Labs reviewed. Dialyzed yesterday. Hemoglobin low. Due for transfusion. Continue to monitor renal parameters and hemoglobin and hematocrit. June 26: Labs reviewed. Due for dialysis today. Continue per consultants. Continue to monitor liver enzymes. June 25: Labs reviewed. Will dialyze tomorrow. Continue per consultants. Check liver function enzymes. June 24: Dialyzed yesterday. Labs reviewed. Medication list reviewed. Liver enzymes remains elevated. Continue to monitor electrolytes renal parameters and LFTs. Hemodialysis in a.m. if needed. June 23: Patient will be dialyzed today again. Labs reviewed. Serum creatinine higher. Elevated liver enzymes persist. Patient full code. Continue per consultants. June 22: Patient dialyzed yesterday. Labs reviewed. Liver function tests and enzymes are elevated. Continue to monitor renal parameters and LFTs. Continue per consultants. Patient full code. June 21: Patient due for dialysis today. Labs and medication list reviewed. Discussed with RN. Continue to monitor renal parameters. June 20: Patient had an episode of bradycardia last night. Serum creatinine rising. Patient continues to have respiratory acidosis. Discussed with MAX Bond. Will order non tunneled dialysis catheter placement for initiation of dialysis treatment due to acute renal failure. Patient remains full code. I favor comfort care if bioethics consultation is sought and physicians on the team agreeable. June 19: No CHEM panel today. Low hemoglobin as of yesterday's lab results. Anemia management per Dr. Cueva. Continue to monitor renal parameters. June 18: Labs are reviewed. Hemoglobin lower. Creatinine higher. ABG not done yet. Patient full code. Continue per consultants. June 17: Labs reviewed. Hemoglobin low. Creatinine up to 3. Phosphorus levels elevated. Will start Amphojel via GT tube as a phosphorus binder. Monitor renal parameters. Check ABG. Continue per consultants. June 16: Labs reviewed. Serum creatinine mariana to 2.6. Abnormal electrolytes now normalized. Continue to monitor renal parameters and avoid nephrotoxic's. Continue to adjust pulmonary status as possible. June 15: ABG pH of 7.1. 2D echo suggestive of ejection fraction of 50%. Labs reviewed. Serum creatinine mariana. Will hold IV Lasix. Will give Kayexalate for high potassium and 1 amp of sodium bicarb. Albumin IV bolus given. Continue per consultants. Continue to monitor renal parameters. Kidney ultrasound ordered. June 14: As follow Pulmonary evaluation Sparrow catheter Hold IV fluid IV fluid, until 2D echo results available Kayexalate for high potassium IV Protonix 2D echocardiogram Anemia work-up More labs ordered Subjective ROS Limited/Unobtainable: Yes Objective Objective Last 24 Hour Vital Signs Date Time Temp Pulse Resp B/P (MAP) Pulse Ox O2 Delivery O2 Flow Rate FiO2 07/18/20 08:00 40 07/18/20 08:00 Mechanical Ventilator 07/18/20 08:00 98.1 72 20 148/69 (95) 98 07/18/20 08:00 66 07/18/20 04:00 40 07/18/20 04:00 Mechanical Ventilator 07/18/20 04:00 97.7 76 21 139/90 (106) 98 07/18/20 03:52 71 07/18/20 03:15 72 23 40 07/18/20 00:00 97.3 72 21 139/89 (106) 98 07/18/20 00:00 Mechanical Ventilator 07/17/20 23:40 72 07/17/20 23:14 71 16 40 07/17/20 20:00 40 07/17/20 20:00 97.3 73 22 133/94 (107) 96 07/17/20 20:00 Mechanical Ventilator 07/17/20 19:34 71 07/17/20 19:19 72 22 40 07/17/20 16:00 97.6 72 22 152/76 (101) 96 07/17/20 16:00 35 07/17/20 16:00 Mechanical Ventilator 07/17/20 15:45 72 20 35 07/17/20 15:28 70 07/17/20 12:00 35 07/17/20 12:00 Mechanical Ventilator 07/17/20 12:00 97.0 71 22 150/86 (107) 95 07/17/20 11:46 71 07/17/20 11:30 74 23 35 Intake and Output 07/17/20 07/18/20 19:00 07:00 Intake Total 662 ml 534 ml Output Total 225 ml 250 ml Balance 437 ml 284 ml Free Water 200 ml 30 ml Tube Feeding 462 ml 504 ml Output Urine Total 175 ml 250 ml Stool Total 50 ml Laboratory Tests 07/17/20 12:59: POC Whole Blood Glucose 117H 07/17/20 16:47: POC Whole Blood Glucose [Pending] 07/17/20 23:16: POC Whole Blood Glucose 128H 07/18/20 03:10: White Blood Count 6.8, Red Blood Count 2.78L, Hemoglobin 8.1L, Hematocrit 25.1L, Mean Corpuscular Volume 90, Mean Corpuscular Hemoglobin 29.0, Mean Corpuscular Hemoglobin Concent 32.2, Red Cell Distribution Width 15.5H, Platelet Count 213, Mean Platelet Volume 7.8, Neutrophils (%) (Auto) 66.1, Lymphocytes (%) (Auto) 13.4L, Monocytes (%) (Auto) 10.5H, Eosinophils (%) (Auto) 9.2H, Basophils (%) (Auto) 0.8, Sodium Level 130L, Potassium Level 5.1, Chloride Level 97L, Carbon Dioxide Level 30, Anion Gap 3L, Blood Urea Nitrogen 84H, Creatinine 4.4H, Estimat Glomerular Filtration Rate 17.1, Glucose Level 162H, Calcium Level 8.2L, Phosphorus Level 3.9, Magnesium Level 2.8H, Total Bilirubin 0.3, Aspartate Amino Transf (AST/SGOT) 51H, Alanine Aminotransferase (ALT/SGPT) 55, Alkaline Phosphatase 331H, Total Protein 7.6, Albumin 1.4L, Globulin 6.2, Albumin/Globulin Ratio 0.2L 07/18/20 06:03: POC Whole Blood Glucose 147H 07/18/20 08:28: Arterial Blood pH 7.282L, Arterial Blood Partial Pressure CO2 62.6*H, Arterial Blood Partial Pressure O2 80.1, Arterial Blood HCO3 28.9H, Arterial Blood Oxygen Saturation 95.1, Arterial Blood Base Excess 1.5, Joe Test Positive Height (Feet): 5 Height (Inches): 8.00 Weight (Pounds): 143 General Appearance: no apparent distress Cardiovascular: normal rate Respiratory/Chest: decreased breath sounds Abdomen: distended Leonidas Honeycutt MD Jul 18, 2020 11:24
[2020-07-18 12:00] VITALS: BP 151/72
--- NOTE | 2020-07-18 12:24 | NUR ---
NURSE NOTES: called [facility] to schedule HD that doctor put in order for-spoke with Chela she will have Benjamin and Kilo call me back.
--- NOTE | 2020-07-18 12:41 | Cardiac Electrophysiology PN ---
Assessment/Plan Assessment/Plan 1. Vent-dependent respirator failure. S/P tracheostomy. On 50% Fio2 Chest x-ray extensive bilateral pneumonia or ARDS. Off isolation EF 50%. Ruled out for IN On iv Abx. S/P Trach change 2. Sinus Tachycardia, likely due to respiratory failure and sepsis 3. Right femoral vein DVT. S/P IVC filter 06/18 4. Dysphagia, status post PEG placement. 5. Renal failure. S/P Right IJ Iron and on HD by Dr. Honeycutt. 6. Severe anemia, S/P multiple PRBCs for hematuria 7. High LFTs, s/p CT abdomen and pelvis and HIDA FU Dr. Stringer 8. Transient bradycardia, resolved Placement pending insurance Auth Subjective Subjective On the Vent off isolation. On 40% Fio2 and PEEP 5. S/P IVC filter S/P Right IJ Iron and first HD 06/21/20 Had ROADS SUPERINTENDENT as HR dropped to 30 at 4 am 06/25/20 Got PRBC 06/27, 06/28,07/07,07/11 and 07/15 S/P trach change at bedside yesterday Objective Last 24 Hour Vital Signs Date Time Temp Pulse Resp B/P (MAP) Pulse Ox O2 Delivery O2 Flow Rate FiO2 07/18/20 12:00 97.9 78 18 151/72 (98) 97 07/18/20 08:00 40 07/18/20 08:00 Mechanical Ventilator 07/18/20 08:00 98.1 72 20 148/69 (95) 98 07/18/20 08:00 66 07/18/20 04:00 40 07/18/20 04:00 Mechanical Ventilator 07/18/20 04:00 97.7 76 21 139/90 (106) 98 07/18/20 03:52 71 07/18/20 03:15 72 23 40 07/18/20 00:00 97.3 72 21 139/89 (106) 98 07/18/20 00:00 Mechanical Ventilator 07/17/20 23:40 72 07/17/20 23:14 71 16 40 07/17/20 20:00 40 07/17/20 20:00 97.3 73 22 133/94 (107) 96 07/17/20 20:00 Mechanical Ventilator 07/17/20 19:34 71 07/17/20 19:19 72 22 40 07/17/20 16:00 97.6 72 22 152/76 (101) 96 07/17/20 16:00 35 07/17/20 16:00 Mechanical Ventilator 07/17/20 15:45 72 20 35 07/17/20 15:28 70 Intake and Output 07/17/20 07/18/20 19:00 07:00 Intake Total 662 ml 534 ml Output Total 225 ml 250 ml Balance 437 ml 284 ml Free Water 200 ml 30 ml Tube Feeding 462 ml 504 ml Output Urine Total 175 ml 250 ml Stool Total 50 ml Laboratory Tests Test 07/17/20 12:59 07/17/20 16:47 07/17/20 23:16 07/18/20 03:10 POC Whole Blood Glucose 117 MG/DL (74-106) H Pending 128 MG/DL (74-106) H White Blood Count 6.8 K/UL (4.8-10.8) Red Blood Count 2.78 M/UL (4.70-6.10) L Hemoglobin 8.1 G/DL (14.2-18.0) L Hematocrit 25.1 % (42.0-52.0) L Mean Corpuscular Volume 90 FL (80-99) Mean Corpuscular Hemoglobin 29.0 PG (27.0-31.0) Mean Corpuscular Hemoglobin Concent 32.2 G/DL (32.0-36.0) Red Cell Distribution Width 15.5 % (11.6-14.8) H Platelet Count 213 K/UL (150-450) Mean Platelet Volume 7.8 FL (6.5-10.1) Neutrophils (%) (Auto) 66.1 % (45.0-75.0) Lymphocytes (%) (Auto) 13.4 % (20.0-45.0) L Monocytes (%) (Auto) 10.5 % (1.0-10.0) H Eosinophils (%) (Auto) 9.2 % (0.0-3.0) H Basophils (%) (Auto) 0.8 % (0.0-2.0) Sodium Level 130 MMOL/L (136-145) L Potassium Level 5.1 MMOL/L (3.5-5.1) Chloride Level 97 MMOL/L (98-107) L Carbon Dioxide Level 30 MMOL/L (21-32) Anion Gap 3 mmol/L (5-15) L Blood Urea Nitrogen 84 mg/dL (7-18) H Creatinine 4.4 MG/DL (0.55-1.30) H Estimat Glomerular Filtration Rate 17.1 mL/min (>60) Glucose Level 162 MG/DL (74-106) H Calcium Level 8.2 MG/DL (8.5-10.1) L Phosphorus Level 3.9 MG/DL (2.5-4.9) Magnesium Level 2.8 MG/DL (1.8-2.4) H Total Bilirubin 0.3 MG/DL (0.2-1.0) Aspartate Amino Transf (AST/SGOT) 51 U/L (15-37) H Alanine Aminotransferase (ALT/SGPT) 55 U/L (12-78) Alkaline Phosphatase 331 U/L (46-116) H Total Protein 7.6 G/DL (6.4-8.2) Albumin 1.4 G/DL (3.4-5.0) L Globulin 6.2 g/dL Albumin/Globulin Ratio 0.2 (1.0-2.7) L Test 07/18/20 06:03 07/18/20 08:28 07/18/20 11:13 POC Whole Blood Glucose 147 MG/DL (74-106) H Pending Arterial Blood pH 7.282 (7.350-7.450) Arterial Blood Partial Pressure CO2 62.6 mmHg (35.0-45.0) *H Arterial Blood Partial Pressure O2 80.1 mmHg (75.0-100.0) Arterial Blood HCO3 28.9 mmol/L (22.0-26.0) H Arterial Blood Oxygen Saturation 95.1 % (95-100) Arterial Blood Base Excess 1.5 (-2-2) Joe Test Positive Objective HEAD AND NECK: Status post tracheostomy. Right IJ Iron in place LUNGS: Coarse rhonchi and basilar rales. CARDIOVASCULAR: Irregular S1 and S2 with no gallop. ABDOMEN: Soft. Status post G-tube. EXTREMITIES: No pitting edema. Lance Mcguire MD Jul 18, 2020 12:41
--- NOTE | 2020-07-18 14:00 | NUR ---
NURSE NOTES: pt. refusing bed bath and oral- asked pt. several times for a bath- pt. continues to refuse. pt. appears to be tolerating current vent settings and appears to be tolerating Hemodialysis- will continue to monitor pt. and with plan of care.
--- NOTE | 2020-07-18 14:24 | Pulmonology Progress Note ---
Subjective ROS Limited/Unobtainable: Yes Interval Events: s/p trach change; abg better today Constitutional: Denies: fever HEENT: Repors: no symptoms Respiratory: Reports: no symptoms Cardiovascular: Reports: no symptoms Genitourinary: Reports: no symptoms Psychiatric: Reports: other - off of restraint Allergies: Coded Allergies: No Known Allergies (Unverified , 06/13/20) All Systems: reviewed and negative except above Objective Last 24 Hour Vital Signs Date Time Temp Pulse Resp B/P (MAP) Pulse Ox O2 Delivery O2 Flow Rate FiO2 07/18/20 12:00 40 07/18/20 12:00 Mechanical Ventilator 07/18/20 12:00 97.9 78 18 151/72 (98) 97 07/18/20 11:40 69 19 40 07/18/20 11:40 70 07/18/20 08:00 40 07/18/20 08:00 Mechanical Ventilator 07/18/20 08:00 98.1 72 20 148/69 (95) 98 07/18/20 08:00 66 07/18/20 06:35 72 20 40 07/18/20 04:00 40 07/18/20 04:00 Mechanical Ventilator 07/18/20 04:00 97.7 76 21 139/90 (106) 98 07/18/20 03:52 71 07/18/20 03:15 72 23 40 07/18/20 00:00 97.3 72 21 139/89 (106) 98 07/18/20 00:00 Mechanical Ventilator 07/17/20 23:40 72 07/17/20 23:14 71 16 40 07/17/20 20:00 40 07/17/20 20:00 97.3 73 22 133/94 (107) 96 07/17/20 20:00 Mechanical Ventilator 07/17/20 19:34 71 07/17/20 19:19 72 22 40 07/17/20 16:00 97.6 72 22 152/76 (101) 96 07/17/20 16:00 35 07/17/20 16:00 Mechanical Ventilator 07/17/20 15:45 72 20 35 07/17/20 15:28 70 Intake and Output 07/17/20 07/18/20 19:00 07:00 Intake Total 662 ml 534 ml Output Total 225 ml 250 ml Balance 437 ml 284 ml Free Water 200 ml 30 ml Tube Feeding 462 ml 504 ml Output Urine Total 175 ml 250 ml Stool Total 50 ml Objective 07/18/2020 pt on dialysis; saturating well on vent 07/15/2020 pt alert; NAD; saturating well on vent; dialysis scheduled today 07/13/2020 pt asleep; NAD General Appearance: WD/WN, no acute distress HEENT: status post trach Respiratory: chest wall non-tender, decreased breath sounds Cardiovascular: normal rate Abdomen: normal bowel sounds Genitourinary: other - Sparrow Extremities: no cyanosis, other - left lower leg amputee; b/l 1+ pitting edema Laboratory Tests 07/17/20 16:47: POC Whole Blood Glucose [Pending] 07/17/20 23:16: POC Whole Blood Glucose 128H 07/18/20 03:10: White Blood Count 6.8, Red Blood Count 2.78L, Hemoglobin 8.1L, Hematocrit 25.1L, Mean Corpuscular Volume 90, Mean Corpuscular Hemoglobin 29.0, Mean Corpuscular Hemoglobin Concent 32.2, Red Cell Distribution Width 15.5H, Platelet Count 213, Mean Platelet Volume 7.8, Neutrophils (%) (Auto) 66.1, Lymphocytes (%) (Auto) 13.4L, Monocytes (%) (Auto) 10.5H, Eosinophils (%) (Auto) 9.2H, Basophils (%) (Auto) 0.8, Sodium Level 130L, Potassium Level 5.1, Chloride Level 97L, Carbon Dioxide Level 30, Anion Gap 3L, Blood Urea Nitrogen 84H, Creatinine 4.4H, Estimat Glomerular Filtration Rate 17.1, Glucose Level 162H, Calcium Level 8.2L, Phosphorus Level 3.9, Magnesium Level 2.8H, Total Bilirubin 0.3, Aspartate Amino Transf (AST/SGOT) 51H, Alanine Aminotransferase (ALT/SGPT) 55, Alkaline Phosphatase 331H, Total Protein 7.6, Albumin 1.4L, Globulin 6.2, Albumin/Globul in Ratio 0.2L 07/18/20 06:03: POC Whole Blood Glucose 147H 07/18/20 08:28: Arterial Blood pH 7.282L, Arterial Blood Partial Pressure CO2 62.6*H, Arterial Blood Partial Pressure O2 80.1, Arterial Blood HCO3 28.9H, Arterial Blood Oxygen Saturation 95.1, Arterial Blood Base Excess 1.5, Joe Test Positive 07/18/20 11:13: POC Whole Blood Glucose [Pending] Current Medications Medications (Trade) Dose Ordered Sig/Maryjane Route PRN Reason Start Time Stop Time Status Last Admin Dose Admin Acetaminophen (Tylenol) 650 mg Q4H PRN GT Mild Pain (Pain Scale 1-3) 06/18/20 23:00 08/16/20 22:59 07/12/20 13:22 Aluminum Hydroxide (Amphojel) 1,920 mg Q6H GT 06/17/20 10:00 07/31/20 09:59 07/18/20 09:35 Ascorbic Acid (Vitamin C) 500 mg DAILY GT 07/01/20 09:00 07/31/20 08:59 07/18/20 08:36 Chlorhexidine Gluconate (Inés-Hex 2%) 1 applic DAILY@1999 TOPIC 06/21/20 20:00 09/19/20 19:59 07/17/20 21:26 Dextrose (Dextrose 50%) 25 ml Q30M PRN IV Hypoglycemia 06/28/20 18:30 09/26/20 18:29 Dextrose (Dextrose 50%) 50 ml Q30M PRN IV Hypoglycemia 06/28/20 18:30 09/26/20 18:29 Epoetin Bonilla (Epoetin Bonilla(ESRD on dialysis)) 10,000 unit TUE-TUE-TUE SUBQ 07/02/20 21:00 09/16/20 20:59 07/16/20 20:30 Haloperidol Lactate (Haldol) 5 mg Q6H PRN IM Agitation 06/21/20 23:15 08/05/20 23:14 06/25/20 18:17 Insulin Aspart (NovoLOG) EVERY 6 HOURS SUBQ 06/29/20 00:00 09/27/20 00:00 07/18/20 11:16 Lansoprazole (Prevacid) 30 mg Q12HR GT 06/30/20 21:00 07/30/20 20:59 07/18/20 08:36 Levothyroxine Sodium (Synthroid) 88 mcg DAILY@0630 GT 07/03/20 06:30 08/02/20 06:29 07/18/20 06:31 Vancomycin HCl (Vanco pharmacy to dose) 1 ea DAILY PRN MISC Per rx protocol 06/27/20 11:30 07/18/20 23:59 Assessment/Plan Assessment/Plan 1. Chronic respiratory failure. 2. Hypoxemia. - AC 18, TV 500, FiO2 40, PEEP 5 3. Respiratory acidosis. 4. Anemia. 5. Leukocytosis. 6. DVT 7. S/p code blue 06/19/20 DISCUSSION: The patient's x-ray is markedly abnormal with bilateral infiltrates. suspect he has pulmonary fibrosis. Latest CXR is unchanged to slightly improved COVID 19 pcr and antigen both negative No anticoagulation for DVT due to anemia S/p IVC filter placement Continue assist-control mechanical ventilation; currently FiO2 40%; SaO2 100%, broad-spectrum antibiotics. Transfusion as needed. PEEP 5 S/p HD Will continue to decrease FiO2 as tolerated S/p permacath pending placement insurance auth The care for this patient was discussed with my supervising physician The time spent for this case was approximately 31 minutes [place] Treadwell Jul 18, 2020 14:24
--- NOTE | 2020-07-18 15:08 | NUR ---
INSURANCE CLINICALS AND REVIEW FAXED TO [facility] [phone]
[2020-07-18 16:00] VITALS: BP 134/81
--- NOTE | 2020-07-18 16:11 | NUR ---
NURSE NOTES: pt. appears to have tolerated Hemodialysis well- per Benjamin RN, HD nurse- 1 liter out- pt. remains stable- b/p 134/74 and pulse 77, respirations 18, pulse ox 99%- will continue to monitor pt. and with plan of care.
--- NOTE | 2020-07-18 16:32 | Surgery Progress Note ---
Surgery Progress Note Subjective Symptoms: improved, tolerating diet, passing flatus, BM Objective Last 24 Hour Vital Signs Date Time Temp Pulse Resp B/P (MAP) Pulse Ox O2 Delivery O2 Flow Rate FiO2 07/18/20 16:00 Mechanical Ventilator 07/18/20 16:00 40 07/18/20 16:00 97.5 71 18 134/81 (98) 98 07/18/20 15:16 71 07/18/20 12:00 40 07/18/20 12:00 Mechanical Ventilator 07/18/20 12:00 97.9 78 18 151/72 (98) 97 07/18/20 11:40 69 19 40 07/18/20 11:40 70 07/18/20 08:00 40 07/18/20 08:00 Mechanical Ventilator 07/18/20 08:00 98.1 72 20 148/69 (95) 98 07/18/20 08:00 66 07/18/20 06:35 72 20 40 07/18/20 04:00 40 07/18/20 04:00 Mechanical Ventilator 07/18/20 04:00 97.7 76 21 139/90 (106) 98 07/18/20 03:52 71 07/18/20 03:15 72 23 40 07/18/20 00:00 97.3 72 21 139/89 (106) 98 07/18/20 00:00 Mechanical Ventilator 07/17/20 23:40 72 07/17/20 23:14 71 16 40 07/17/20 20:00 40 07/17/20 20:00 97.3 73 22 133/94 (107) 96 07/17/20 20:00 Mechanical Ventilator 07/17/20 19:34 71 07/17/20 19:19 72 22 40 I&O Intake and Output 07/17/20 07/18/20 19:00 07:00 Intake Total 662 ml 534 ml Output Total 225 ml 250 ml Balance 437 ml 284 ml Free Water 200 ml 30 ml Tube Feeding 462 ml 504 ml Output Urine Total 175 ml 250 ml Stool Total 50 ml Dressing: saturated Cardiovascular: RSR Respiratory: decreased breath sounds Abdomen: non-tender, present bowel sounds Extremities: no edema, no tenderness, no cyanosis Laboratory Tests Test 07/17/20 16:47 07/17/20 23:16 07/18/20 03:10 07/18/20 06:03 POC Whole Blood Glucose Pending 128 MG/DL (74-106) H 147 MG/DL (74-106) H White Blood Count 6.8 K/UL (4.8-10.8) Red Blood Count 2.78 M/UL (4.70-6.10) L Hemoglobin 8.1 G/DL (14.2-18.0) L Hematocrit 25.1 % (42.0-52.0) L Mean Corpuscular Volume 90 FL (80-99) Mean Corpuscular Hemoglobin 29.0 PG (27.0-31.0) Mean Corpuscular Hemoglobin Concent 32.2 G/DL (32.0-36.0) Red Cell Distribution Width 15.5 % (11.6-14.8) H Platelet Count 213 K/UL (150-450) Mean Platelet Volume 7.8 FL (6.5-10.1) Neutrophils (%) (Auto) 66.1 % (45.0-75.0) Lymphocytes (%) (Auto) 13.4 % (20.0-45.0) L Monocytes (%) (Auto) 10.5 % (1.0-10.0) H Eosinophils (%) (Auto) 9.2 % (0.0-3.0) H Basophils (%) (Auto) 0.8 % (0.0-2.0) Sodium Level 130 MMOL/L (136-145) L Potassium Level 5.1 MMOL/L (3.5-5.1) Chloride Level 97 MMOL/L (98-107) L Carbon Dioxide Level 30 MMOL/L (21-32) Anion Gap 3 mmol/L (5-15) L Blood Urea Nitrogen 84 mg/dL (7-18) H Creatinine 4.4 MG/DL (0.55-1.30) H Estimat Glomerular Filtration Rate 17.1 mL/min (>60) Glucose Level 162 MG/DL (74-106) H Calcium Level 8.2 MG/DL (8.5-10.1) L Phosphorus Level 3.9 MG/DL (2.5-4.9) Magnesium Level 2.8 MG/DL (1.8-2.4) H Total Bilirubin 0.3 MG/DL (0.2-1.0) Aspartate Amino Transf (AST/SGOT) 51 U/L (15-37) H Alanine Aminotransferase (ALT/SGPT) 55 U/L (12-78) Alkaline Phosphatase 331 U/L (46-116) H Total Protein 7.6 G/DL (6.4-8.2) Albumin 1.4 G/DL (3.4-5.0) L Globulin 6.2 g/dL Albumin/Globulin Ratio 0.2 (1.0-2.7) L Test 07/18/20 08:28 07/18/20 11:13 Arterial Blood pH 7.282 (7.350-7.450) Arterial Blood Partial Pressure CO2 62.6 mmHg (35.0-45.0) *H Arterial Blood Partial Pressure O2 80.1 mmHg (75.0-100.0) Arterial Blood HCO3 28.9 mmol/L (22.0-26.0) H Arterial Blood Oxygen Saturation 95.1 % (95-100) Arterial Blood Base Excess 1.5 (-2-2) Joe Test Positive POC Whole Blood Glucose Pending Plan Problems: (1) Leukocytosis Assessment & Plan: 54-year-old male multiple comorbidities admitted for abnormal chest x-ray potentially pneumonia leukocytosis abnormal labs. Patient identified to have a prior left BKA surgical sutures still in place as well as a surgical sacral wound with sutures in place. Considerations of dehiscence being identified and potential etiology of infection. After evaluation unlikely source of infection though the sacral wound was looked to be dehiscing at the inferior aspect. No acute surgical mention at this time We will discussed care plan with PCP Recommend follow-up with initial surgeon considerations of removal of surgical sutures Care plan initiated worsening lft's US ordered ? shayla monitor for bleeding from right chest wall cath change dressings Extensive airspace consolidations at the lung bases consistent with severe multifocal infiltrate. Associated, large bilateral pleural effusions. Evaluation of the abdominal viscera is markedly suboptimal due to poor CT technique and lack of intravenous contrast. No definite hepatic lesion. No definite cholelithiasis. Mild colon wall thickening. The spleen, pancreas, and adrenal glands are not visualized well enough reliable assessment. No definite hydronephrosis. The kidneys are hyperdense, correlate for medical renal disease. No nephrolithiasis. Sparrow catheter within a decompressed urinary bladder. Moderate diverticulosis, without acute diverticulitis. No small bowel obstruction. PEG tube presumably within the stomach. Atherosclerotic calcifications of the aorta. Low-attenuation of the intravascular blood pool, correlate for anemia. IVC filter, incidentally noted. Air within the subcutaneous fat overlying the sacrum with skin thickening, correlate with physical exam for sacral decubitus ulcer. Degenerative changes of the spine. Bilateral pars defects at L5 without anterolisthesis of L5 on S1. IMPRESSION: Extensive airspace consolidations at the lung bases consistent with severe multifocal infiltrate. Associated, large bilateral pleural effusions. Evaluation of the abdominal viscera is markedly suboptimal due to poor CT technique and lack of intravenous contrast. Moderate diverticulosis, without acute diverticulitis. No small bowel obstruction. PEG tube presumably within the stomach. Note, if there is suspicion for colitis consider repeat scan with improved CT technique/intravenous contrast. Mild gallbladder wall thickening without definite evidence of cholelithiasis. Air within the subcutaneous fat overlying the sacrum with skin thickening, correlate with physical exam for sacral decubitus ulcer. Bilateral pars defects at L5. The kidneys are hyperdense, correlate for medical renal disease.. There is prompt uptake within the liver with washout of radiotracer from the liver on subsequent imaging. There is excretion into the biliary ducts. Gallbladder activity is present in a timely fashion indicating patency of the cystic duct. Very scant bowel activity is demonstrated concerning for common bile duct obstruction or sphincter dysfunction. IMPRESSION: No evidence to suggest cholecystitis. Gallbladder activity is present in a timely fashion indicating patency of the cystic duct. Very little radiotracer noted in the small bowel. Correlate with LFTs as a degree of common bile duct obstruction or sphincter dysfunction not excluded. Consider further evaluation with MRCP. (2) Surgical wound dehiscence Assessment & Plan: Patient identified to have a left BKA surgical sutures in place flap looks like it is taken well no signs of infection at this time no signs of seroma hematoma or drainage. Unknown exact length or duration of potential prior left BKA and until then recommend leaving sutures in place as it may be too early though it does look well-healed. If able to obtain prior records we will be happy to remove sutures otherwise will need follow-up with primary surgeon furthermore patient identified to have a surgical wound in the sacral area seems he probably potentially had a stage IV sacral decubitus ulcer that had debridement and primary closure. Fortunately. Sutures are still in place and it looks like the inferior aspect may be slowly dehiscing. There is no significant drainage no foul odor no signs of active infection unknown if bone was palpable prior. Can consider removing surgical sutures but again would recommend obtaining prior records of possible prior to doing so. Also recommend following up with primary surgeon as this may need ongoing continued care. Will follow with recommendations and as information is available. Continue current care plan. Wash wounds daily with normal saline. Apply skin protectant Optifoam dressing. Turn every 2 hours. Offload pressure with pillows and air mattress. Nutritional optimization. Worsening leukocytosis. Patient continues to have dehiscence of the prior primarily closed sacral decubitus ulcer. The sutures are was nearly torn out and the wound is opening and saturating with stool with bowel movements now has rectal tube. Unfortunately I see significant concern given dehiscence and therefore sutures were cut at the bedside and wound immediately opened under some tension. Underlying Vicryl sutures identified. There is some backbleeding some granulation tissue but definitely no take or closure of the stage IV sacral decubitus ulcer that was identified. Nonexcisional debridement done with gauze and jorge layer of slough and biofilm was removed wound was cleaned packing dressings applied. No abscess no purulent drainage unlikely etiology of inf ection. (3) History of left below knee amputation (4) Malnutrition Assessment & Plan: DAILY ESTIMATED NEEDS: Needs based on Wound, critical care, underweight/ 55.5kg 25-33 (25-35 w/ HD) kcals/kg 5867-1535 (0659-2140) total kcals 1.25-2 g protein/kg 69-111 g total protein 25-30 mL/kg 4543-6469 total fluid mLs NUTRITION DIAGNOSIS: * Swallowing difficulty R/T respiratory status as evidenced by pt is trach/vent dep, PEG dep. CURRENT TF: Nepro @ 40ml/hr x24 hrs ENTERAL NUTRITION RECOMMENDATIONS: Nepro @ 40ml/hr x 24 hrs to provide 960ml, 1728kcal, 78g prot, 698ml free water * Maintain current TF * HOB over 30 degrees/ water flush per MD ADDITIONAL RECOMMENDATIONS: * Per SNF: HT=69" BO=636qny -> rec daily calibrated bedscale wt * Monitor lytes: elev K-> now wnl, phos now low * Wound healing: RANDY BID + Nephrovite 1 tab qdaily * Monitor for bm, last bm 06/19, now 11/17 * W/ HD rec to add Prosource 1 pack qdaily for added 11g pro/day. (5) Anemia (6) KERRI (acute kidney injury) (7) Acute respiratory failure Assessment & Plan: hold on trach change cuff okay vent settings prn abg cxr noted (8) Hyperkalemia (9) Anemia (10) Abnormal laboratory test result (11) Chronic respiratory failure (12) Hyperglycemia (13) Hypothyroidism Azar Mares Jul 18, 2020 16:32
--- NOTE | 2020-07-18 17:00 | NUR ---
NURSE NOTES: bed bath given and linens changed- wound care pictures taken as pt. may be possibly discharged today- per case management Blanca.
--- NOTE | 2020-07-18 17:13 | NUR ---
LANDSCAPE MANAGER NOTES SPOKE WITH MABEL FROM [facility], PT ACCEPTED TO ROOM 2 BED A. NURSE TO GIVE REPORT TO [phone]. [facility] TO TRANSPORT PT.
--- NOTE | 2020-07-18 17:40 | NUR ---
NURSE NOTES: per Margareth from lab- Covid test is negative.
--- NOTE | 2020-07-18 17:50 | NUR ---
*-*DISCHARGE PLANNED*-* PATIENT CHARLES BEEN ACCEPTED AN WILL BE DISCHARGE TO: [facility] P: [phone] FOR NURSE TO NURSE REPORT ROOM# 2.A [facility] SET UP THROUGH [facility]" FOR 7:30PM S/W DEEPTI, WHO STATED THEY WILL CALL TO CONFIRM TOWN PLANNER TIME.
--- NOTE | 2020-07-18 18:49 | NUR ---
NURSE NOTES: Called long term and spoke with MAX Mayer and gave report for transfer- pt. going to room 2A-
--- NOTE | 2020-07-18 19:10 | NUR ---
NURSE NOTES: Receive report from MAX Gracia. Pt awake in bed, eyes open and watching tv, follows commands, afebrile and no respiratory distress noted. trache to vent shiley 8, AC 16, Tidal volume 500, Fi O2 45%, P5 saturating at 100%. On Nephro 42ml/hr via GT infusing well without and sediments and residual. PT tolerating well. With Right IJ non tunneled dialysis catheter intact, asymptomatic. Dressing is intact, dry and clean.With left hand 22g iv line intact, patent and asymptomatic. with Sparrow catheter to urine bag draining well with dark gerard yellow. HOB elevated. needs were attended. Call light within reach. Bed rails are up and wheels are locked. Bed alarm is on. Pt is for discharge tonight. Awaiting for ambulance for pickup. Pt is stable and watching the tv. continue plan of care.
--- NOTE | 2020-07-18 19:19 | NUR ---
NURSE HAND-OFF REPORT: Important Events on Shift:none Patient Status: stable Diet: Nephro Pending Orders: Pending Results/Labs: Pending MD notification: Latest Vital Signs: Temperature 97.5 , Pulse 75 , B/P 134 /81 , Respiratory Rate 21 , O2 SAT 98 , Mechanical Ventilator, O2 Flow Rate 15.0 . Vital Sign Comment: EKG Rhythm: Sinus Rhythm Rhythm change?: N MD Notified?: MD Response: No New Orders Received Latest Santiago Fall Score: 80 Fall Risk: High Risk Safety Measures: Call light Within Reach, Bed Alarm Zone 2, Side Rails Side Rails x2, Bed position Low and Locked. Fall Precautions: Yellow Socks Yellow Gown Door Sign Patient Fall Education Report given to MAULIK RN, aware to f/u on discharge.
[2020-07-18 20:00] VITALS: BP 142/96
--- NOTE | 2020-07-18 20:29 | General Progress Note ---
Subjective ROS Limited/Unobtainable: Yes Allergies: Coded Allergies: No Known Allergies (Unverified , 06/13/20) Objective Last 24 Hour Vital Signs Date Time Temp Pulse Resp B/P (MAP) Pulse Ox O2 Delivery O2 Flow Rate FiO2 07/18/20 19:04 75 21 40 07/18/20 16:00 Mechanical Ventilator 07/18/20 16:00 40 07/18/20 16:00 97.5 71 18 134/81 (98) 98 07/18/20 15:25 74 23 40 07/18/20 15:16 71 07/18/20 12:00 40 07/18/20 12:00 Mechanical Ventilator 07/18/20 12:00 97.9 78 18 151/72 (98) 97 07/18/20 11:40 69 19 40 07/18/20 11:40 70 07/18/20 08:00 40 07/18/20 08:00 Mechanical Ventilator 07/18/20 08:00 98.1 72 20 148/69 (95) 98 07/18/20 08:00 66 07/18/20 06:35 72 20 40 07/18/20 04:00 40 07/18/20 04:00 Mechanical Ventilator 07/18/20 04:00 97.7 76 21 139/90 (106) 98 07/18/20 03:52 71 07/18/20 03:15 72 23 40 07/18/20 00:00 97.3 72 21 139/89 (106) 98 07/18/20 00:00 Mechanical Ventilator 07/17/20 23:40 72 07/17/20 23:14 71 16 40 Intake and Output 07/17/20 07/18/20 19:00 07:00 Intake Total 662 ml 534 ml Output Total 225 ml 250 ml Balance 437 ml 284 ml Free Water 200 ml 30 ml Tube Feeding 462 ml 504 ml Output Urine Total 175 ml 250 ml Stool Total 50 ml Laboratory Tests 07/17/20 23:16: POC Whole Blood Glucose 128H 07/18/20 03:10: White Blood Count 6.8, Red Blood Count 2.78L, Hemoglobin 8.1L, Hematocrit 25.1L, Mean Corpuscular Volume 90, Mean Corpuscular Hemoglobin 29.0, Mean Corpuscular Hemoglobin Concent 32.2, Red Cell Distribution Width 15.5H, Platelet Count 213, Mean Platelet Volume 7.8, Neutrophils (%) (Auto) 66.1, Lymphocytes (%) (Auto) 13.4L, Monocytes (%) (Auto) 10.5H, Eosinophils (%) (Auto) 9.2H, Basophils (%) (Auto) 0.8, Sodium Level 130L, Potassium Level 5.1, Chloride Level 97L, Carbon Dioxide Level 30, Anion Gap 3L, Blood Urea Nitrogen 84H, Creatinine 4.4H, Estimat Glomerular Filtration Rate 17.1, Glucose Level 162H, Calcium Level 8.2L, Phosphorus Level 3.9, Magnesium Level 2.8H, Total Bilirubin 0.3, Aspartate Amino Transf (AST/SGOT) 51H, Alanine Aminotransferase (ALT/SGPT) 55, Alkaline Phosphatase 331H, Total Protein 7.6, Albumin 1.4L, Globulin 6.2, Albumin/Globulin Ratio 0.2L 07/18/20 06:03: POC Whole Blood Glucose 147H 07/18/20 08:28: Arterial Blood pH 7.282L, Arterial Blood Partial Pressure CO2 62.6*H, Arterial Blood Partial Pressure O2 80.1, Arterial Blood HCO3 28.9H, Arterial Blood Oxygen Saturation 95.1, Arterial Blood Base Excess 1.5, Joe Test Positive 07/18/20 11:13: POC Whole Blood Glucose [Pending] 07/18/20 17:01: POC Whole Blood Glucose [Pending] Height (Feet): 5 Height (Inches): 8.00 Weight (Pounds): 143 Assessment/Plan Problem List: (1) Anemia ICD Codes: D64.9 - Anemia, unspecified SNOMED: 876099959 (2) KERRI (acute kidney injury) ICD Codes: N17.9 - Acute kidney failure, unspecified SNOMED: 8503169, 26060555 (3) Acute respiratory failure ICD Codes: J96.00 - Acute respiratory failure, unspecified whether with hypoxia or hypercapnia SNOMED: 74008318 Qualifiers: Qualified Codes: J96.02 - Acute respiratory failure with hypercapnia (4) Hyperkalemia ICD Codes: E87.5 - Hyperkalemia SNOMED: 28303690 (5) Abnormal laboratory test result ICD Codes: R89.9 - Unspecified abnormal finding in specimens from other organs, systems and tissues SNOMED: 648113393 (6) Anemia ICD Codes: D64.9 - Anemia, unspecified SNOMED: 594370893 Status: progressing Assessment/Plan: s/p trach and esrd on hd awaiting bed availability no sob no cp afebrile s/p acute mi Neida Apple MD Jul 18, 2020 20:29
[2020-07-18] MEDS: Dyna-Hex 2% Top Sol 2oz TOPIC SCH (20:38)
[2020-07-18] MEDS: Epoetin Alfa-EPBX(ESRD on dialysis)10,000 unit/ml vial SUBQ SCH (21:27)
--- NOTE | 2020-07-18 22:55 | NUR ---
NURSE NOTES: Pt was discharged from the facility via [facility] with EMT and RT. Pt tolerated the transfer from [facility] to [facility] withotu any respiratory distress to any discomfort. Pt was saturating well at 99-100%.Body assessment done and noted during the endorsement. Belongings were sent with the patient. Pt is going to [facility]
--- NOTE | 2020-07-20 14:33 | Discharge Summary ---
Discharge Summary Discharge Summary _ DATE OF ADMISSION: 06/13/2020 DATE OF DISCHARGE: 07/18/2020 DISCHARGED BY: Dr. Neida Torres CONSULTANTS: Dr. Azar Amador BRIEF HOSPITAL COURSE: Patient is a 54-year-old male who was brought in by ambulance due to increased difficulty with breathing. Patient was noted to have elevated white count. He had a recent diagnosis of pneumonia. He has history of chronic trach, anemia, embolism, heart failure, gastrostomy and left BKA. Upon arrival to ED, vital signs were stable. Blood work showed leukocytosis. Hemoglobin 7.5. Urinalysis showed pyuria. Covid test was negative. X-ray showed diffuse patchy infiltrates with vascular congestion. He was given breathing treatment as well as IV antibiotics. He was given given blood transfusion. He was started on antibiotics. Patient was recently status post left lower extremity amputation and [facility] where he was discharged on antibiotics vancomycin and meropenem. Per ID, continue meropenem and vancomycin. He was given Lasix for diuresis. Echocardiogram showed EF 50%. Labs showed hypothyroidism and is given thyroid replacement therapy. He was found to have acute DVT in the right distal common femoral vein and profunda femoris vein. Unable to give coagulation due to anemia. An IVC filter was placed. Surgeon was consulted. Patient still has surgical sutures in place. He also had surgical sacral wound with sutures in place. Sacral wound looks to be dehiscing. There was no acute surgical intervention needed. He was given local wound care. Kidney function was increasing. Potassium was elevated. He was given Kayexalate. He continued to have respiratory acidosis. Abdominal ultrasound showed evidence of anasarca with bilateral pleural effusion and ascites. Echogenic kidneys bilaterally. No hydronephrosis. On 06/19/2020, patient went into RN CARE TRANSITION. Patient was obtunded and was hypothermic. Bear hugger was placed. On 06/20/2020. Iron catheter was placed on the right IJ. He was eventually started on hemodialysis. He had episodes of agitation and was placed on bilateral restraints. He was given Haldol IM as needed. Patient was pulling Sparrow catheter. He had hematuria. There was a drop in hemoglobin and required another transfusion. He was eventually given epogen. He had elevated liver tests. Abdominal ultrasound was unremarkable. Hepatitis B and C markers negative. CPK was normal. Examination was inconclusive due to degree of altered mental status. Seroquel was placed on hold. Patient had an RN CARE TRANSITION on 06/25 when heart rate dropped to 30s. Bradycardia resolved. Patient x-ray was markedly abnormal with bilateral infiltrates. Possible pulmonary fibrosis. COVID-19 PCR and antigen were both negative. Sputum culture showed growth of Pseudomonas and stenotrophomonas. A permacath was inserted on 06/30/2020. Patient had worsening leukocytosis. Wound evaluation on the sacral decubitus ulcer was done. Nonexcisional debridement was done and cleaned packed dressings were applied. There was no abscess or no purulent drainage. Unlikely the source of infection. Sputum culture showed growth of Iron ER and Pseudomonas. He was given cefepime and gentamicin inhaler. Patient completed antibiotic treatment. He was eventually cleared for discharge. FINAL DIAGNOSES: Acute on chronic respiratory failure vent dependent Pneumonia with Pseudomonas and providentia Acute right leg DVT Anemia requiring blood transfusion Acute kidney injury requiring initiation of hemodialysis Surgical wound dehiscence on the sacral area status post nonexcisional debridement Malnutrition Respiratory acidosis Hypoxemia Status post CODE BLUE Elevated LFTs Transient bradycardia Hyperkalemia Respiratory acidosis and hypoxia Hematuria Major depression Hypothyroidism History of below left knee amputation Dementia DISPOSITION: Patient was discharged to [facility]. DISCHARGE MEDICATIONS: Refer to Discharge Medication List. I have been assigned to complete a discharge summary on this account, I was not involved with the patient's management.--LEISA Allred Jacqueline Robles NP Jul 20, 2020 14:33
== END 2020-07-18 22:45 | DRG 720 ==
LOC: EDBD 16:31 → EMR 16:55 → EDBEDREQ 17:30 → 2W 18:56 → EDBEDREQ 21:05 → 2W 06-14 19:53
PROC: 5A1955Z Respiratory Ventilation, Greater than 96 Consecutive Hours (ICD-10-PCS; principal; 2020-06-13)
PROC: 06H03DZ Insertion of Intraluminal Device into Inferior Vena Cava, Percutaneous Approach (ICD-10-PCS; 2020-06-18)
PROC: 05HM33Z Insertion of Infusion Device into Right Internal Jugular Vein, Percutaneous Approach (ICD-10-PCS; 2020-06-20)
PROC: B513ZZA Fluoroscopy of Right Jugular Veins, Guidance (ICD-10-PCS; 2020-06-20)
PROC: 5A1D70Z Performance of Urinary Filtration, Intermittent, Less than 6 Hours Per Day (ICD-10-PCS; 2020-06-21)
PROC: 05HM33Z Insertion of Infusion Device into Right Internal Jugular Vein, Percutaneous Approach (ICD-10-PCS; 2020-06-30)
PROC: 0JH63XZ Insertion of Tunneled Vascular Access Device into Chest Subcutaneous Tissue and Fascia, Percutaneous Approach (ICD-10-PCS; 2020-06-30)
PROC: B513ZZA Fluoroscopy of Right Jugular Veins, Guidance (ICD-10-PCS; 2020-06-30)
DX: A41.9 Sepsis, unspecified organism (principal); I13.0 Hypertensive heart and chronic kidney disease with heart failure and stage 1 through stage 4 chronic kidney disease, or unspecified chronic kidney disease; E87.5 Hyperkalemia; N17.9 Acute kidney failure, unspecified; N18.9 Chronic kidney disease, unspecified; I82.411 Acute embolism and thrombosis of right femoral vein; I50.9 Heart failure, unspecified; J96.22 Acute and chronic respiratory failure with hypercapnia; J96.21 Acute and chronic respiratory failure with hypoxia; Z93.0 Tracheostomy status; Z93.1 Gastrostomy status; Z99.11 Dependence on respirator [ventilator] status; J44.0 Chronic obstructive pulmonary disease with (acute) lower respiratory infection; Z89.512 Acquired absence of left leg below knee; R13.10 Dysphagia, unspecified; F32.9 Major depressive disorder, single episode, unspecified; F03.90 Unspecified dementia, unspecified severity, without behavioral disturbance, psychotic disturbance, mood disturbance, and anxiety; E11.22 Type 2 diabetes mellitus with diabetic chronic kidney disease; E11.65 Type 2 diabetes mellitus with hyperglycemia; R00.0 Tachycardia, unspecified; L89.154 Pressure ulcer of sacral region, stage 4; T81.31XA Disruption of external operation (surgical) wound, not elsewhere classified, initial encounter; G31.84 Mild cognitive impairment of uncertain or unknown etiology; R74.01 Elevation of levels of liver transaminase levels; E03.9 Hypothyroidism, unspecified; J15.1 Pneumonia due to Pseudomonas; R94.5 Abnormal results of liver function studies; R00.1 Bradycardia, unspecified; R31.9 Hematuria, unspecified; M86.8X8 Other osteomyelitis, other site; D69.6 Thrombocytopenia, unspecified; Z20.828 Contact with and (suspected) exposure to other viral communicable diseases; R68.0 Hypothermia, not associated with low environmental temperature; R19.7 Diarrhea, unspecified; E46 Unspecified protein-calorie malnutrition; Z68.21 Body mass index [BMI] 21.0-21.9, adult
CPT/HCPCS: 36415; 36558; 36569; 70450; 71045; 74176; 76000; 76700; 76770; 76937; 78266; 80048; 80053; 80061; 80202; 81001; 82140; 82247; 82248; 82270; 82533; 82550; 82607; 82728; 82746; 82803; 82962; 82977; 83036; 83540; 83550; 83605; 83615; 83690; 83735; 83880; 83930; 84100; 84439; 84443; 84484; 84550; 85007; 85025; 85610; 85730; 86140; 86308; 86695; 86703; 86706; 86707; 86709; 86803; 86850; 86900; 86901; 86920; 87040; 87070; 87081; 87086; 87181; 87205; 87324; 87496; 93005; 93306; 93970; 94002; 94003; 94664; 96365; 99291; J1815; J7030; U0002